=== PATIENT | male | born 1950 | race Caucasian/White ===

== ENCOUNTER 2023-07-22 11:16 | Outpatient (CLI) | payer MEDICARE, SELFPAY ==
[2023-07-22 11:36] LABS: Basophils # 1.7 K/mm3 (0-0.2); Basophils % 2.3 % (0.1-2.0); Eosinophils # 0.2 K/mm3 (0.0-0.4); Eosinophils % 0.2 % (0.1-12.0); Hematocrit 44.1 % (42.0-52.0); Hemoglobin 14.3 g/dL (14.1-18.0); Lymphocytes # 66.8 K/mm3 (0.7-4.5); Lymphocytes % 90.2 % (10-50); Mean Corpuscular HGB Conc 32.4 g/dL (31.8-35.4); Mean Corpuscular Hemoglobin 33.3 pg (27.0-31.2); Mean Corpuscular Volume 102.8 fl (80-94); Mean Platelet Volume 8.2 fl (7.4-10.4); Monocytes # 0.5 K/mm3 (0.1-1.0); Monocytes % 0.6 % (1.7-9.3); Neutrophils # 4.9 K/mm3 (1.8-7.8); Platelet Count 211 K/mm3 (142-424); Red Blood Count 4.29 M/mm3 (4.60-6.20); Red Cell Distribution Width 13.8 % (11.5-17.5)
[2023-07-22 11:53] LABS: Neutrophils % 6.7 % (37.0-80.0)
[2023-07-22 11:54] LABS: White Blood Count 74.1 K/mm3 (4.8-10.8)
[2023-07-22 11:55] LABS: MANUAL DIFFERENTIAL MANUAL DIFFERENTIAL (MANUAL DIFF)
[2023-07-22 12:13] LABS: Chloride 107 mmol/L (98-107); Potassium 4.2 mmoL/L (3.5-5.1); Sodium 142 mmol/L (136-145)
[2023-07-22 12:16] LABS: Alanine Aminotransferase 25 U/L (12-78); Albumin Level 4.4 g/dl (3.5-5.0); Albumin/Globulin Ratio 2.6 (1.1-1.8); Alkaline Phosphatase 75 U/L (38-126); Anion Gap 10.2 mEq/L (5-15); Aspartate Amino Transferase 38 U/L (17-59); Bilirubin,Total 0.4 mg/dl (0.2-1.3); Blood Urea Nitrogen 18 mg/dl (9-20); Calcium 9.1 mg/dl (8.4-10.2); Carbon Dioxide 29 mmol/L (22.0-30.0); Estimated Glomerular Filt Rate 82 ml/min (>60); GFR (African American) 100 ML/MIN (>60); Globulin 1.7 g/dL (1.3-3.2); Glucose 99 mg/dl (74-100); Total Protein,Serum 6.1 g/dl (6.3-8.2)
[2023-07-22 12:19] LABS: Lactate Dehydrogenase 249 U/L (313-618)
[2023-07-22 12:44] LABS: Eosinophils % 1 % (0-3); Lymphocytes % 2 % (10-50); Monocytes % 1 % (2-9); Neutrophils % 12 % (42-76); Total Cells Counted 100
[2023-07-22 12:45] LABS: Platelet Estimate Normal
[2023-07-22 12:46] LABS: Anisocytosis 1+
[2023-07-22 12:47] LABS: Macrocytosis 1+
== END 2023-07-22 23:59 ==
PROVIDERS: PCP Family Medicine; Visit Provider Internal Medicine Medical Oncology
DX: C91.10 Chronic lymphocytic leukemia of B-cell type not having achieved remission (principal); Z79.899 Other long term (current) drug therapy
CPT/HCPCS: 36415; 80053; 83615; 85007; 85025

== ENCOUNTER 2023-10-20 10:29 | Outpatient (CLI) | payer MEDICARE, SELFPAY ==
[2023-10-20 11:14] LABS: Basophils # 2.1 K/mm3 (0-0.2); Basophils % 2.6 % (0.1-2.0); Eosinophils # 0.2 K/mm3 (0.0-0.4); Eosinophils % 0.3 % (0.1-12.0); Hematocrit 40.5 % (42.0-52.0); Hemoglobin 13.2 g/dL (14.1-18.0); Lymphocytes # 72.1 K/mm3 (0.7-4.5); Lymphocytes % 91.9 % (10-50); Mean Corpuscular HGB Conc 32.7 g/dL (31.8-35.4); Mean Corpuscular Hemoglobin 33.3 pg (27.0-31.2); Mean Corpuscular Volume 101.7 fl (80-94); Mean Platelet Volume 8.7 fl (7.4-10.4); Monocytes # 0.5 K/mm3 (0.1-1.0); Monocytes % 0.6 % (1.7-9.3); Neutrophils # 3.5 K/mm3 (1.8-7.8); Platelet Count 219 K/mm3 (142-424); Red Blood Count 3.98 M/mm3 (4.60-6.20); Red Cell Distribution Width 13.8 % (11.5-17.5)
[2023-10-20 11:16] LABS: Neutrophils % 4.5 % (37.0-80.0)
[2023-10-20 11:17] LABS: White Blood Count 78.5 K/mm3 (4.8-10.8)
[2023-10-20 11:18] LABS: MANUAL DIFFERENTIAL MANUAL DIFFERENTIAL (MANUAL DIFF)
[2023-10-20 11:20] LABS: Alanine Aminotransferase 26 U/L (12-78); Albumin Level 4.4 g/dl (3.5-5.0); Albumin/Globulin Ratio 2.6 (1.1-1.8); Alkaline Phosphatase 85 U/L (38-126); Anion Gap 12.5 mEq/L (5-15); Aspartate Amino Transferase 36 U/L (17-59); Bilirubin,Total 0.4 mg/dl (0.2-1.3); Blood Urea Nitrogen 23 mg/dl (9-20); Calcium 9.4 mg/dl (8.4-10.2); Carbon Dioxide 29 mmol/L (22.0-30.0); Chloride 103 mmol/L (98-107); Estimated Glomerular Filt Rate 65 ml/min (>60); GFR (African American) 79 ML/MIN (>60); Globulin 1.7 g/dL (1.3-3.2); Glucose 95 mg/dl (74-100); Lactate Dehydrogenase 268 U/L (313-618); Potassium 4.5 mmoL/L (3.5-5.1); Sodium 140 mmol/L (136-145); Total Protein,Serum 6.1 g/dl (6.3-8.2)
[2023-10-20 13:18] LABS: Anisocytosis 1+; Lymphocytes % 17 % (10-50); Macrocytosis 1+; Monocytes % 1 % (2-9); Myelocytes % 1 (0-1); Neutrophils % 9 % (42-76); Platelet Estimate Normal; Total Cells Counted 100
== END 2023-10-20 23:59 | disposition home or self-care (01) ==
LOC: LAB 10:33
PROVIDERS: PCP Family Medicine; Visit Provider Internal Medicine Medical Oncology
DX: C91.10 Chronic lymphocytic leukemia of B-cell type not having achieved remission (principal)
CPT/HCPCS: 36415; 80053; 83615; 85007; 85025; 85027

== ENCOUNTER 2024-01-16 10:27 | Outpatient (CLI) | payer MEDICARE, SELFPAY ==
[2024-01-16 10:51] LABS: Basophils # 2.1 K/mm3 (0-0.2); Basophils % 1.9 % (0.1-2.0); Eosinophils # 0.2 K/mm3 (0.0-0.4); Eosinophils % 0.2 % (0.1-12.0); Hematocrit 41.6 % (42.0-52.0); Lymphocytes # 103.3 K/mm3 (0.7-4.5); Lymphocytes % 94.8 % (10-50); Mean Corpuscular HGB Conc 31.2 g/dL (31.8-35.4); Mean Corpuscular Hemoglobin 32.7 pg (27.0-31.2); Mean Corpuscular Volume 104.8 fl (80-94); Mean Platelet Volume 8.1 fl (7.4-10.4); Monocytes # 0.6 K/mm3 (0.1-1.0); Monocytes % 0.5 % (1.7-9.3); Platelet Count 229 K/mm3 (142-424); Red Blood Count 3.97 M/mm3 (4.60-6.20); Red Cell Distribution Width 14.7 % (11.5-17.5)
[2024-01-16 11:04] LABS: Neutrophils % 4.6 % (37.0-80.0)
[2024-01-16 11:05] LABS: MANUAL DIFFERENTIAL MANUAL DIFFERENTIAL (MANUAL DIFF)
[2024-01-16 11:17] LABS: Albumin Level 4.1 g/dl (3.5-5.0); Chloride 107 mmol/L (98-107); Sodium 141 mmol/L (136-145)
[2024-01-16 11:20] LABS: Alanine Aminotransferase 23 U/L (12-78); Alkaline Phosphatase 81 U/L (38-126); Aspartate Amino Transferase 31 U/L (17-59); Bilirubin,Total 0.5 mg/dl (0.2-1.3); Blood Urea Nitrogen 21 mg/dl (9-20); Carbon Dioxide 31 mmol/L (22.0-30.0); Estimated Glomerular Filt Rate 73 ml/min (>60); GFR (African American) 88 ML/MIN (>60)
[2024-01-16 11:21] LABS: Albumin/Globulin Ratio 2.2 (1.1-1.8); Globulin 1.9 g/dL (1.3-3.2); Glucose 67 mg/dl (74-100)
[2024-01-16 11:27] LABS: Lymphocytes % 96 % (10-50); Macrocytosis 1+; Monocytes % 1 % (2-9); Neutrophils % 3 % (42-76); Platelet Estimate Normal; RBC Morphology Normal; Total Cells Counted 100
[2024-01-16 22:17] LABS: Lactate Dehydrogenase 242 U/L (313-618)
== END 2024-01-16 23:59 | disposition home or self-care (01) ==
LOC: LAB 10:30
PROVIDERS: PCP Family Medicine; Visit Provider Internal Medicine Medical Oncology
DX: C91.12 Chronic lymphocytic leukemia of B-cell type in relapse (principal)
CPT/HCPCS: 36415; 80053; 83615; 85007; 85025; 85027

== ENCOUNTER 2024-04-17 09:28 | Outpatient (CLI) | payer MEDICARE, SELFPAY ==
[2024-04-17 10:05] LABS: Basophils % 5.8 % (0.1-2.0); Eosinophils # 0.2 K/mm3 (0.0-0.4); Eosinophils % 0.1 % (0.1-12.0); Hematocrit 42.1 % (42.0-52.0); Hemoglobin 13.5 g/dL (14.1-18.0); Lymphocytes # 132.5 K/mm3 (0.7-4.5); Lymphocytes % 96.4 % (10-50); Mean Corpuscular HGB Conc 32.2 g/dL (31.8-35.4); Mean Corpuscular Hemoglobin 33.1 pg (27.0-31.2); Mean Corpuscular Volume 102.7 fl (80-94); Mean Platelet Volume 7.9 fl (7.4-10.4); Monocytes # 0.8 K/mm3 (0.1-1.0); Monocytes % 0.6 % (1.7-9.3); Platelet Count 206 K/mm3 (142-424); Red Cell Distribution Width 14.6 % (11.5-17.5)
[2024-04-17 10:11] LABS: Neutrophils % 2.9 % (37.0-80.0)
[2024-04-17 10:12] LABS: White Blood Count 137.4 K/mm3 (4.8-10.8)
[2024-04-17 10:14] LABS: MANUAL DIFFERENTIAL MANUAL DIFFERENTIAL (MANUAL DIFF)
[2024-04-17 11:01] LABS: Lymphocytes % 96 % (10-50); Monocytes % 1 % (2-9); Neutrophils % 3 % (42-76); Platelet Estimate Normal; RBC Morphology Normal; Total Cells Counted 100
[2024-04-17 11:16] LABS: Alanine Aminotransferase 24 U/L (12-78); Albumin Level 4.3 g/dl (3.5-5.0); Albumin/Globulin Ratio 2.7 (1.1-1.8); Alkaline Phosphatase 83 U/L (38-126); Anion Gap 10.6 mEq/L (5-15); Aspartate Amino Transferase 36 U/L (17-59); Bilirubin,Total 0.3 mg/dl (0.2-1.3); Blood Urea Nitrogen 18 mg/dl (9-20); Calcium 9.1 mg/dl (8.4-10.2); Carbon Dioxide 32 mmol/L (22.0-30.0); Chloride 103 mmol/L (98-107); Estimated Glomerular Filt Rate 59 ml/min (>60); GFR (African American) 71 ML/MIN (>60); Globulin 1.6 g/dL (1.3-3.2); Glucose 88 mg/dl (74-100); Lactate Dehydrogenase 240 U/L (313-618); Potassium 4.6 mmoL/L (3.5-5.1); Sodium 141 mmol/L (136-145); Total Protein,Serum 5.9 g/dl (6.3-8.2)
== END 2024-04-17 23:59 | disposition home or self-care (01) ==
LOC: LAB 09:29
PROVIDERS: PCP Family Medicine; Visit Provider Internal Medicine Medical Oncology
DX: C91.10 Chronic lymphocytic leukemia of B-cell type not having achieved remission (principal)
CPT/HCPCS: 36415; 80053; 83615; 85007; 85025; 85027

== ENCOUNTER 2024-05-22 13:40 | Outpatient (CLI) | payer MEDICARE, SELFPAY ==
--- NOTE | 2024-05-22 13:41 | CT_ITS ---
FINAL REPORT CLINICAL HISTORY: chronic sinus issues COMPARISON: None FINDINGS: There is abnormal mucoperiosteal thickening of the ethmoid air cells. There is complete opacification of the right maxillary sinus. Soft tissue is seen bridging the right ostiomeatal unit. There is mild mucoperiosteal thickening circumferentially on the left. Soft tissue is noted bridging the left ostiomeatal unit. The mastoids are well aerated. There is no fracture. There are no air-fluid levels. IMPRESSION: Obstruction of the ostiomeatal units with complete opacification of the right and circumferential mucoperiosteal thickening on the left.. Reviewed, Interpreted and Dictated by Mario Bertrand MD Transcribed by Cindy Luna Authenticated and [facility]
== END 2024-05-22 23:59 | disposition home or self-care (01) ==
PROVIDERS: PCP Family Medicine; Visit Provider Nurse Practitioner
DX: J32.9 Chronic sinusitis, unspecified (principal)
CPT/HCPCS: 70486

== ENCOUNTER 2024-07-16 10:34 | Outpatient (CLI) | payer MEDICARE, SELFPAY ==
[2024-07-16 10:55] LABS: Basophils # 0.2 K/mm3 (0-0.2); Basophils % 0.1 % (0.1-2.0); Eosinophils # 0.1 K/mm3 (0.0-0.4); Eosinophils % 0.1 % (0.1-12.0); Hematocrit 38.8 % (42.0-52.0); Lymphocytes # 143.8 K/mm3 (0.7-4.5); Lymphocytes % 89.1 % (10-50); Mean Corpuscular HGB Conc 30.9 g/dL (31.8-35.4); Mean Corpuscular Hemoglobin 31.7 pg (27.0-31.2); Mean Corpuscular Volume 102.6 fl (80-94); Mean Platelet Volume 9.7 fl (7.4-10.4); Monocytes # 13.7 K/mm3 (0.1-1.0); Monocytes % 8.5 % (1.7-9.3); Neutrophils # 3.2 K/mm3 (1.8-7.8); Platelet Count 165 K/mm3 (142-424); Red Blood Count 3.78 M/mm3 (4.60-6.20); Red Cell Distribution Width 14.2 % (11.5-17.5)
[2024-07-16 11:14] LABS: White Blood Count 161.4 K/mm3 (4.8-10.8)
[2024-07-16 11:15] LABS: Albumin Level 4.4 g/dl (3.5-5.0); Chloride 104 mmol/L (98-107); MANUAL DIFFERENTIAL MANUAL DIFFERENTIAL (MANUAL DIFF); Potassium 4.5 mmoL/L (3.5-5.1); Sodium 140 mmol/L (136-145)
[2024-07-16 11:18] LABS: Alanine Aminotransferase 23 U/L (12-78); Albumin/Globulin Ratio 2.8 (1.1-1.8); Alkaline Phosphatase 104 U/L (38-126); Anion Gap 9.5 mEq/L (5-15); Aspartate Amino Transferase 34 U/L (17-59); Bilirubin,Total 0.5 mg/dl (0.2-1.3); Blood Urea Nitrogen 13 mg/dl (9-20); Carbon Dioxide 31 mmol/L (22.0-30.0); Estimated Glomerular Filt Rate 73 ml/min (>60); GFR (African American) 88 ML/MIN (>60); Globulin 1.6 g/dL (1.3-3.2)
[2024-07-16 11:19] LABS: Calcium 9.1 mg/dl (8.4-10.2); Glucose 87 mg/dl (74-100)
[2024-07-16 11:30] LABS: Lactate Dehydrogenase 315 U/L (313-618)
[2024-07-16 12:11] LABS: Eosinophils % 1 % (0-3); Lymphocytes % 95 % (10-50); Monocytes % 1 % (2-9); Neutrophils % 3 % (42-76); Platelet Estimate Normal; Total Cells Counted 100
== END 2024-07-16 23:59 | disposition home or self-care (01) ==
LOC: LAB 10:34
PROVIDERS: PCP Family Medicine; Visit Provider Internal Medicine Medical Oncology
DX: C91.12 Chronic lymphocytic leukemia of B-cell type in relapse (principal)
CPT/HCPCS: 36415; 80053; 83615; 85007; 85025; 85027

== ENCOUNTER 2024-07-19 10:48 | Outpatient (CLI) | payer MEDICARE, SELFPAY ==
--- NOTE | 2024-07-19 10:53 | CT_ITS ---
FINAL REPORT TECHNIQUE: Axial CT without IV contrast administration. Coronal and sagittal images were obtained and reviewed. This study was performed with techniques to keep radiation doses as low as reasonably achievable, (ALARA). Individualized dose reduction techniques using automated exposure control or adjustment of mA and/or kV according to the patient''s size were employed. CLINICAL HISTORY: CLL COMPARISON: None FINDINGS: There is patchy airspace disease in the right lower lobe favored to represent pneumonia. Leukemic involvement of the lungs is considered much less likely. There is a small right pleural effusion. Precarinal adenopathy measures 18 mm. Right paratracheal adenopathy measures 17 mm. There is no hilar adenopathy. Mild bilateral axillary adenopathy is noted based on excessive number of abnormal lymph nodes. IMPRESSION: Mild intrathoracic adenopathy and axillary adenopathy. Right lower lobe parenchymal opacities, likely pneumonia although leukemic involvement of the lungs is not excluded. Reviewed, Interpreted and Dictated by Rob Moon MD Transcribed by Cindy Luna Authenticated and [facility]
--- NOTE | 2024-07-19 10:53 | CT_ITS ---
FINAL REPORT TECHNIQUE: Noncontrast CT exam of the abdomen and pelvis. Coronal and sagittal images were obtained and reviewed. This study was performed with techniques to keep radiation doses as low as reasonably achievable (ALARA). Individualized dose reduction techniques using automated exposure control or adjustment of mA and/or kV according to the patient''s size were employed. CLINICAL HISTORY: CLL COMPARISON: None FINDINGS: Abdomen: There is moderate splenomegaly with the spleen measuring up to 16.1 cm. Remaining solid organs are normal. The gallbladder is normal. There is advanced adenopathy primarily involving the mesentery, although enlarged lymph nodes are seen of the celiac axis, retroperitoneum, and tristen hepatis. Measurements of mesenteric node on image 48 of series 2 is 40 x 25 mm. Measurement of a left periaortic lymph node at the level of the renal hilum on image 52 is 34 x 18 mm. Pelvis: Mesenteric adenopathy extends into the pelvic portion. Retroperitoneal adenopathy terminates of the aortic bifurcation. A left distal aortic lymph node on image 58 measures 37 x 22 mm. Pelvic bowel loops are unremarkable. There is no inguinal adenopathy. IMPRESSION: Extensive abdominal adenopathy with sampling measurements as above. Adenopathy most pronounced within the mesentery. Moderate splenomegaly. Reviewed, Interpreted and Dictated by Rob Moon MD Transcribed by Cindy Luna Authenticated and [facility]
== END 2024-07-19 23:59 | disposition home or self-care (01) ==
LOC: RAD 10:49
PROVIDERS: PCP Family Medicine; Visit Provider Internal Medicine Medical Oncology
DX: C91.12 Chronic lymphocytic leukemia of B-cell type in relapse (principal)
CPT/HCPCS: 71250; 74176

== ENCOUNTER 2024-10-22 10:24 | Outpatient (CLI) | payer MEDICARE, SELFPAY ==
--- OUTSIDE RECORDS SUMMARY | 2024-10-22 10:48 | XMS_ITS | Encounter Summary ---
Author Organization [facility] [employer] Address [address] [place] [address] Care Team Providers Care Staple Laster Name Role Phone Eladio Lomas MD Unavailable Breanna Crow PA-C Unavailable [phone] Encounter Details Date Type Department Care Team (Late st Contact Info) Description 10/15/2021 Transcribed Document [facility] [place] Family Medicine [facility] [place] [address] ProviderJailyn MD [address] [place] [address] Social History Tobacco Use Types Packs/Day Years Used Date Smoking Tobacco: Never Assessed Sex and Gender Information Value Date Recorded Sex Assigned at Male 10/27/2021 8:22 PM CDT Legal Sex Male 8:22 PM CDT Gender Identity Male 10/27/2021 8:22 PM CDT Sexual Orientation Not on file documented as of this encounter Miscellaneous Notes * Cerner Conversion Note - Historical ProviderMD - 10/15/2021 3:15 PM CDT Evaluation, Physical Therapy Entered On: 10/17/2021 10:35 EDT Performed On: 10/17/2021 10:13 EDT by SOFÍA CROFT PHYSICAL THERAPIST NON-EXEMPT General Information, PT Visit Type, PT : Initial evaluation Patient Orders : Order Date Order Ordering 10/15/2021 05:37 PT Evaluation and Treatment Ordered By: CANDIDA GUO DO-INT 10/15/2021 15:15 PT Evaluation and Treatment Ordered By: GARCIA WORKMAN MD-ORT Active Diagnoses : 10/15/2021 12:00 Chronic lymphocytic leukemia of B-cell type not having achieved remission 10/15/2021 12:00 Essential (primary) hypertension 10/15/2021 12:00 Neurologic problem 10/15/2021 12:00 Other specified abnormal findings of blood chemistry 10/15/2021 12:00 Other symptoms and signs involving the musculoskeletal system 10/15/2021 12:00 Varicella without complication 10/14/2021 12:00 Paresthesia Therapy Diagnosis, PT : Impaired mobility Admission Date : 10/15/2021 03:06 Co-treated by, PT : Occupational Therapist Personal Devices : Personal Devices No Devices Recorded Assistive Devices : Assistive Devices No Devices Recorded Precautions in Place : Fall prevention measures General Information Comment, PT : Pt is a 71 y/o male who [place] [facility] [place] with RLE weakness and paresthesia. Pt's PMH includes CLL (in remission), recent chickenpox (onset approx 3 weeks ago) and falls. Pt is currently being followed by Ortho and Neurology. Pt with possible left-sided L5 lumbar radiculopathy. SOFÍA CROFT PHYSICAL THERAPIST NON-EXEMPT - 10/17/2021 10:13 EDT General Status Patient Received Status : Other: Standing in BR in RW with spouse Treatment Start Time : 10/17/2021 9:03 EDT Patient Left Status : Sitting edge of bed, RN/PCT informed, Other: Spouse present Treatment End Time : 10/17/2021 9:56 EDT Treatment Time : 53 Minute(s) SOFÍA CROFT PHYSICAL THERAPIST NON-EXEMPT - 10/17/2021 10:13 EDT History and Environment Living Situation, Therapy : Home Patient Lives With : Spouse Persons Assisting Patient at Home : Spouse Persons Providing Information : Patient, Spouse Home Equipment Therapy, PT : Cane Cane : Cane, single point Home Setup : Two story Bedroom Location : Upstairs Bathroom #1 Location : Main level Bathroom #2 Location : Upstairs Stairs : Yes Stair Location(s) : Inside, Outside Inside Stairs, Number of Steps : 12 Stairs Inside Comment : 1 fllight of steps with HR on (R) side going up Outside Stairs, Number of Steps : 2 Outside Stairs Comment : 2 steps with HR on (R) side going up SOFÍA CROFT PHYSICAL THERAPIST NON-EXEMPT - 10/17/2021 10:13 EDT Prior Level of Function PT GRID Prior LOF Ambulation, Household : Independent Prior LOF Ambulation, Community : Independent Prior LOF Bed Mobility : Independent Prior LOF Toileting : Independent Prior LOF Transfer : Independent SOFÍA CROFT, PHYSICAL THERAPIST NON-EXEMPT - 10/17/2021 10:13 EDT Prior LOF Assist with ADL Comment : At baseline, pt is very active and ambulates 4-5 miles per day. He enjoys cutting the grass. History and Environment Comment, PT : Pt lives with spouse who will be able to assist as needed upon return home. Pt has a built in shower seat in 2nd floor bathroom. Pt with multiple falls at home since onset of RLE weakness. SOFÍA CROFT PHYSICAL THERAPIST NON-EXEMPT - 10/17/2021 10:13 EDT Upper Extremity Right UE Active ROM : WFL Right UE Strength : WFL Left UE Active ROM : WFL Left UE Strength : WFL SOFÍA CROFT PHYSICAL THERAPIST NON-EXEMPT - 10/17/2021 10:13 EDT Lower Extremity RLE Active ROM : WFL Right LE Strength : Impaired LLE Active ROM : WFL Left LE Strength : WFL SOFÍA CROFT PHYSICAL THERAPIST NON-EXEMPT - 10/17/2021 10:13 EDT Right Lower Extremity MMT Hip Flexion (0-125) : 5/normal Hip Abduction (0-45) : 5/normal Hip Adduction (0-20) : 5/normal Knee Flexion (0-140) : 5/normal Knee Extension (0-0) : 5/normal Ankle Dorsiflexion (0-20) : 3/fair Ankle Plantarflexion (0-45) : 5/normal Other Location : 1/trace (Comment: Great toe extension [SOFÍA CROFT PHYSICAL THERAPIST NON-EXEMPT - 10/17/2021 10:13 EDT] ) SOFÍA CROFT PHYSICAL THERAPIST NON-EXEMPT - 10/17/2021 10:13 EDT Left Lower Extremity MMT Hip Flexion (0-125) : 5/normal Hip Abduction (0-45) : 5/normal Hip Adduction (0-20) : 5/normal Knee Flexion (0-140) : 5/normal Knee Extension (0-0) : 5/normal Ankle Dorsiflexion (0-20) : 5/normal Ankle Plantarflexion (0-45) : 5/normal Other Location : 5/normal (Comment: Great toe extension [SOFÍA CROFT, PHYSICAL THERAPIST NON-EXEMPT - 10/17/2021 10:13 EDT] ) SOFÍA CROFT PHYSICAL THERAPIST NON-EXEMPT - 10/17/2021 10:13 EDT Lower Extremity Comment : R Achilles and patellar reflexes 1+ L Achilles and patellar reflexes 2+ Babinski (-) bilat Hoffmans's (-) bilat Ankle Clonus (-) bilat SOFÍA CROFT, PHYSICAL THERAPIST NON-EXEMPT - 10/17/2021 10:13 EDT Functional Mobility Mobility Grid Sit to Stand : Rehab Minimal assistance (Comment: CGA [SOFÍA CROFT PHYSICAL THERAPIST NON-EXEMPT - 10/17/2021 10:13 EDT] ) Stand to Sit : Rehab Minimal assistance (Comment: CGA [SOFÍA CROFT, PHYSICAL THERAPIST NON-EXEMPT - 10/17/2021 10:13 EDT] ) SOFÍA CROFT, PHYSICAL THERAPIST NON-EXEMPT - 10/17/2021 10:13 EDT Sit to Stand Device : Belt, gait Stand to Sit Device : Belt, gait, Walker, front wheel Functional MobilityComment : Pt required CGA with max verbal cueing for safety (hand placement, foot placement and leaning forward) to complete sit>stand transfer in RW. Pt required CGA with max verbal cueing for safety (placement of RW, reach back and slow eccentric descent) to complete stand>sit transfer. SOFÍA CROFT PHYSICAL THERAPIST NON-EXEMPT - 10/17/2021 10:13 EDT Gait Training/Assessment, PT Gait Assistance Level : Assist, minimal Walking Distance : 125' x 2 Ambulatory Devices : Gait belt, Walker, front wheel Gait Deviations : Yes Gait Training Comment : Toe drag present (RLE) during RLE swing phase of gait pattern. Pt required verbal cueing for increased hip flexion to accommodate lack of ankle DF during swing phase. Pt vequired cueing for upright posture & for remaining within base of RW. Stair(s) Ascend/Descend Training : Yes Number of Stairs : 5 Stair(s) Assist Devices : Rails, one Stair Assist : Assist, minimal Stair Ascending Technique Comment : Verbal cueing for non-reciprocal gait pattern leading with LLE with BUE support on hand rail. Stair Descending Technique Comment : Verbal cueing for non-reciprocal gait pattern leading with RLE with BUE support on hand rail. SOFÍA CROFT PHYSICAL THERAPIST NON-EXEMPT - 10/17/2021 10:13 EDT Neurological/Sensory Overall Sensory Response : Impaired Overall Sensory Response Comment : Impaired sensation to light touch (RLE vs LLE) in L5 dermatomal distribution. SOFAÍ CROFT PHYSICAL THERAPIST NON-EXEMPT - 10/17/2021 10:13 EDT Cognition Assessment, PT Orientation : Oriented x 4 Attention Assessment : Present SOFÍA CROFT PHYSICAL THERAPIST NON-EXEMPT - 10/17/2021 10:13 EDT Edu Topics Physical Therapy Education Grid Caregiver Training : Verbalizes understanding (Comment: Use of gait belt [SOFÍA CROFT PHYSICAL THERAPIST NON-EXEMPT - 10/17/2021 10:13 EDT] ) Gait Training : Verbalizes understanding, Returns demonstration, Needs further teaching, Needs reinforcement Role of Physical Therapy : Verbalizes understanding Safety : Verbalizes understanding, Returns demonstration, Needs further teaching, Needs reinforcement Stair Training : Verbalizes understanding, Returns demonstration, Needs further teaching, Needs reinforcement Transfer Training : Verbalizes understanding, Returns demonstration, Needs further teaching, Needs reinforcement Use of Assistive Device : Verbalizes understanding, Returns demonstration, Needs further teaching, Needs reinforcement SOFÍA CROFT PHYSICAL THERAPIST NON-EXEMPT - 10/17/2021 10:13 EDT Teaching/Learning Assessment Barriers To Learning : None evident Individuals Taught : Patient, Spouse Readiness to Learn : Cooperative Learning Style Preferences Patient : Verbal explanation Learning Style Preferences Family : Verbal explanation SOFÍA CROFT PHYSICAL THERAPIST NON-EXEMPT - 10/17/2021 10:13 EDT Indication Assesessment, PT Physical Therapy Indicated : Yes PT Problem List : Impaired, activities daily living, Impaired, coordination/proprioception, Impaired, gait, Impaired, stair mobility, Impaired, standing balance, Impaired, strength, Impaired, transfers Potential Barriers To Therapy : None evident Rehabilitation Potential : Good SOFÍA CROFT PHYSICAL THERAPIST NON-EXEMPT - 10/17/2021 10:13 EDT Plan of Care, PT PT Tx Plan/Goals Established w Patient : Yes PT Frequency Rehab : Five days per week PT Duration Rehab : Fourteen days PT Treatments Planned : Balance training, Gait training, Neuromuscular reeducation, Safety education, Stair training, Transfer training SOFÍA CROFT PHYSICAL THERAPIST NON-EXEMPT - 10/17/2021 10:13 EDT Cycle Specialist Goals Transfer LTG Grid Goal #1 Destination : Other: sit<>stand Cues : Minimum verbal cues Assist : Supervision or set-up Equipment : Belt, gait, Walker, front wheel, Other: AFO (R) Date to Meet : 10/31/2021 EDT Goal Status : Intial Goal SOFÍA CROFT PHYSICAL THERAPIST NON-EXEMPT - 10/17/2021 10:13 EDT Ambulation LTG Grid Goal #1 Device : Walker, front wheel Distance : 150' Assist : Assist, minimal (Comment: CGA [SOFÍA CROFT, PHYSICAL THERAPIST NON-EXEMPT - 10/17/2021 10:13 EDT] ) Date to Meet : 10/31/2021 EDT Goal Status : Intial Goal Comment : AFO (R) SOFÍA CROFT, PHYSICAL THERAPIST NON-EXEMPT - 10/17/2021 10:13 EDT Stairs LTG Grid Goal #1 Number of Steps : 2 Handrail(s) : No handrails Assist : Assist, minimal (Comment: CGA [SOFÍA CROFT, PHYSICAL THERAPIST NON-EXEMPT - 10/17/2021 10:13 EDT] ) Date to Meet : 10/31/2021 EDT Goal Status : Intial Goal Comment : AFO (R) SOFÍA CROFT, PHYSICAL THERAPIST NON-EXEMPT - 10/17/2021 10:13 EDT Treatment Note Subjective Comment : Pt and RN agreeable to tx. Patient's Response to Treatment : Pt in good spirits and tolerated PT evalulation well. Additional Objective Information : Pt ambulated approximately 125' using RW without use of AFO brace with Maryann. Pt was issued an AFO brace and instructed in safe and appropriate use of AFO brace. Pt required assistance to don the AFO brace. He ambulated an additional 125' using RW while wearing AFO brace with Maryann. Pt demonstrated improved stability when ambulating with AFO brace. PT discussed the following recommendations with pt and spouse: - Use of wheelchair for community mobility to improve safety and reduce falls. - Use RW and AFO brace with spouse support for safety for ambulation short distances within home. - Pt avoiding 2nd floor of home. - Pt sleeping on couch and/or recliner on 1st floor of home to avoid flight of steps to 2nd floor. Assessment : Pt will likely benefit from additional skilled PT while hospitalized to address deficits, to progress toward goals and to improve safety/independence with mobility. RLE weakness and paresthesias are consistent with a R-sided L5 lumbar radiculopathy. SOFÍA CROFT PHYSICAL THERAPIST NON-EXEMPT - 10/17/2021 10:13 EDT Pain Assessment Pain Comment : 06/11 low back pain SOFÍA CROFT PHYSICAL THERAPIST NON-EXEMPT - 10/17/2021 10:13 EDT Image 1 - Images currently included in the form version of this document have not been included in the text rendition version of the form. Anticipated Discharge Needs, OT/PT Anticipated Discharge to : Home, with family care, Other: Outpatient physical therapy Anticipated Home Equipment : Walker, Wheelchair Recommend Continued Therapy at Discharge : Yes Walker : Walker, front wheel Wheelchair : Wheelchair, standard SOFÍA CROFT PHYSICAL THERAPIST NON-EXEMPT - 10/17/2021 10:[address] [facility] PT Charges PT Ther Activities Ea 15 Min : 1 Gait Training Each 15 Min : 2 PT Eval Low Complexity : 1 SOFÍA CROFT PHYSICAL THERAPIST NON-EXEMPT - 10/17/2021 10:13 EDT documented in this encounter Plan of Treatment Not on file documented as of this encounter Visit Diagnoses Not on filedocumented in this encounter Care Teams Staple Laster Relationship Specialty Start Date End Date Eladio Lomas MD [address] [place] [address] Medical Oncologist Hematology and Oncology 07/08/22 Breanna Crow PA-C [address] [facility] [address] [place] [address] Physician Pot Tender Oncology 07/08/22 documented as of this encounter
--- OUTSIDE RECORDS SUMMARY | 2024-10-22 10:48 | XMS_ITS | Encounter Summary ---
Author Organization [facility] [employer] Address [address] [facility] [place] [address] Care Team Providers Care Methods Study Analyst Name Role Phone Eladio Lomas MD Unavailable Breanna Crow PA-C Unavailable [phone] Encounter Details Date Type Department Care Team (Late st Contact Info) Description 10/15/2021 Transcribed Document [facility] [place] [facility] [place] [address] ProviderJailyn MD [address] [place] [address] Social History Tobacco Use Types Packs/Day Years Used Date Smoking Tobacco: Never Assessed Sex and Gender Information Value Date Recorded Sex Assigned at Male 10/27/2021 8:22 PM CDT Legal Sex Male 8:22 PM CDT Gender Identity Male 10/27/2021 8:22 PM CDT Sexual Orientation Not on file documented as of this encounter Miscellaneous Notes * Cerner Conversion Note - Jailyn Lira MD - 10/15/2021 4:49 AM CDT ED Discharge Entered On: 10/15/2021 4:49 EDT Performed On: 10/15/2021 4:49 EDT by FLORA SOUZA RN Discharge Process Patient Disposition : Admit/Observe Personal Belongings With Patient : Yes Patient Education Completed : Yes Teaching Evaluation : Verbalizes understanding FLORA SOUZA RN - 10/15/2021 4:49 EDT Admission, ED Nurse Report Accepted By : SHARYN Still Nurse Report Acceptance Time : 10/15/2021 4:30 EDT `Nurse Report (Hand Off) : Called Accompanied By, Discharge : Care provider Mode Of Departure : Stretcher SOUZA, FLORA, SHARYN - 10/15/2021 4:49 EDT documented in this encounter Plan of Treatment Not on file documented as of this encounter Visit Diagnoses Not on filedocumented in this encounter Care Teams Methods Study Analyst Relationship Specialty Start Date End Date Eladio Lomas MD [address] [facility] [place] [address] Medical Oncologist Hematology and Oncology 07/08/22 Breanna Crow, PACecilia [address] [address] Physician Spindle Carver Oncology 07/08/22 documented as of this encounter
--- OUTSIDE RECORDS SUMMARY | 2024-10-22 10:48 | XMS_ITS | Encounter Summary ---
Author Organization [employer] Address [address] [place] [address] Care Team Providers Care Healthcare Economics Manager Name Role Phone Eladio Lomas MD Unavailable Breanna Crow PA-C Unavailable [phone] Encounter Details Date Type Department Care Team (Late st Contact Info) Description 10/15/2021 Transcribed Document [facility] [place] [facility] [place] [address] ProviderJailyn MD [address] [place], [place] [id number] Social History Tobacco Use Types Packs/Day Years Used Date Smoking Tobacco: Never Assessed Sex and Gender Information Value Date Recorded Sex Assigned at Male 10/27/2021 8:22 PM CDT Legal Sex Male 8:22 PM CDT Gender Identity Male 10/27/2021 8:22 PM CDT Sexual Orientation Not on file documented as of this encounter Miscellaneous Notes * Cerner Conversion Note - Jailyn Lira MD - 10/15/2021 5:37 AM CDT Consult Phone Call Documentation Entered On: 10/15/2021 6:55 EDT Performed On: 10/15/2021 5:37 EDT by CHLOE LORENZO Phone Call for Consults Consult Phone Call/Page Attempt : First call Consult Reason : LE Weakness Physician Requesting Consult : CANDIDA GUO, DO-INT Physician Requested for Consult : ROMERO INGRAM MD-SERENE Provider Service Notified Name : Neurology Physician Covering for Consult : BIANCA HORNER APRN-NEU Date and Time Call Returned : 10/15/2021 6:34 EDT CHLOE LORENZO - 10/15/2021 6:53 EDT Electronically signed by Huy, [facility] Conversion Peripheral Edp Equipment Operator Cerner at 08/17/2022 6:19 PM CDT documented in this encounter Plan of Treatment Not on file documented as of this encounter Visit Diagnoses Not on filedocumented in this encounter Care Teams Healthcare Economics Manager Relationship Specialty Start Date End Date Eladio Lomas MD [address] [facility] [address] [place] [address] Medical Oncologist Hematology and Oncology 07/08/22 Breanna Crow, CHAVA [address] [place] [address] Physician Collections Curator Oncology 07/08/22 documented as of this encounter
--- OUTSIDE RECORDS SUMMARY | 2024-10-22 10:48 | XMS_ITS | Encounter Summary ---
Author Organization [employer] Address [address] [place] [address] Care Team Providers Care Missileman Name Role Phone Eladio Lomas MD Unavailable Breanna Crow PA-C Unavailable Encounter Details Date Type Department Care Team (Late st Contact Info) Description 10/15/2021 Transcribed Document [facility] [place] [facility] [place] [address] ProviderJailyn MD [address] [place] [address] Social History Tobacco Use Types [...] Conversion Note - Historical ProviderMD - 10/15/2021 8:35 AM CDT Attempt to Treat, OT Entered On: 10/15/2021 12:33 EDT Performed On: 10/15/2021 8:35 EDT by DAYDAY MEADOWS OTR/Mikal Attempt to Treat Unable to Treat Due To : Acuity of Illness, Patient on hold, Pending order clarification Inability to Treat Comment : Pt with DVT. Eval held today as a result. Will attempt again at later date if pt able, willing. DAYDAY MEADOWS OTR/Mikal - 10/15/2021 12:32 EDT Electronically signed by Huy [facility] Conversion Cigar Packing Examiner Cerner at 08/17/2022 6:13 PM CDT documented in this encounter Plan of Treatment Not on file documented as of this encounter Visit Diagnoses Not on filedocumented in this encounter Care Teams Missileman Relationship Specialty Start Date End Date Eladio Lomas MD [address] [facility] [place] [id number] Medical Oncologist Hematology and Oncology 07/08/22 Breanna Crow PA-C [address] [place] [address] Physician Printed Circuit Boards Router Oncology 07/08/22 documented as of this encounter
--- OUTSIDE RECORDS SUMMARY | 2024-10-22 10:48 | XMS_ITS | Encounter Summary ---
Author Organization [email or web address] Address [address] [address] Care Team Providers Care Psychologist Chief Name Role Phone Eladio Lomas MD Unavailable Breanna Crow PA-C Unavailable [phone] Encounter Details Date Type Department Care Team (Late st Contact Info) Description 10/17/2021 Transcribed Document [facility] [place] [facility] [place] [address] ProviderJailyn MD [address] [place] [address] Social History Tobacco Use Types [...] Conversion Note - Jailyn Lira MD - 10/17/2021 12:50 PM CDT Patient: CORBIN HU Age: 71 years Sex: Male : 1950 Associated Diagnoses: None Author: TRENA DONAHUE MD-INF INFECTIOUS DISEASES CONSULTATION/INITIAL HOSPITAL VISIT REF MD: Dr. Wilberto TOLEDO MD: Dr. Trena Donahue Date of Admission: 10/15/21 Date of Consultation: 10/17/21 Reason for Consultation: Right leg weakness in setting of recent varicella zoster infection CC: Right leg pain HPI: 71 yo male with h/o CLL/not currently treated and MVP who we were asked to see for Right leg pain/Weakness after recent varicella infection. About 2 to 3 weeks ago, he developed a rash on his body. The vesicles were biopsies and he was told it was chicken pox By Dr. Garcia. He told other providers that he was sure he had chickenpox when he was a child. He was treated with steroids and Valtrex. The diffuse vesicles dried and healed. Then about a week later, he developed pain in his Right lumbar region and right leg which he noticed after crawling under his house to store winter items. He thought maybe he had just hurt his leg, but does have some chronic back pain that worsening during the viral infection. He then developed weakness in his left leg. The weakness progressed to the point that he began to fall prompting him to come to [facility] on 10[place]. He was admitted for concerns of Claudia Mobile Syndrome. A CT scan of lumbar spine showed no acute findings. He has remained afebrile. His labs were relatively unremarkable except for worsening leukocytosis and elevated D-dimer. MRI thoracic spine showed no acute findings. Lumbar MRI scan revealed multiple areas of lumbar disc disease with mild to moderate canal and foraminal stenosis. A venous Doppler duplex of BLE showed acute DVT in below the knee veins including popliteal vein. He was seen in urology consultation and thought not to have Guillain-Hoover?? syndrome but rather degenerative disc disease with secondary lower extremity weakness. He is on Eliquis and SoluMedrol. ID was asked to evaluate. Allergies: Allergies (2) Active Reaction contrast media (iodine-based) None Documented Shrimp None Documented Medications: Medications by Classification Immunology methylPREDNISolone + Sodium Chloride 0.9% intravenous soluti - 250 mg 4 mL, IV Piggyback, Inj, Daily, STAT Anticoagulant apixaban (Eliquis) - 10 mg, Oral, Tab, BID, order duration: 7 Day(s) Cardiovascular labetalol - 10 mg, IV Push, Inj, Q1H, PRN for Hypertension, Routine Respiratory albuterol-ipratropium (DuoNeb 0.5 mg-2.5 mg/3 mL inhalation - 3 mL, Nebulized Inhalation, Inh, RT_Q6H, PRN for Shortness of Breath, Routine GI ondansetron (Zofran) - 4 mg, IV Push, Inj, Q4H, PRN for Nausea, Routine famotidine (Pepcid) - 20 mg, Oral, Tab, Q12H, Routine bisacodyl (Dulcolax Laxative) - 5 mg, Oral, EC Tab, Daily, PRN for Constipation, Routine polyethylene glycol 3350 (MiraLax) - 17 Gram, Oral, Powder, Daily, PRN for Constipation, Routine Pain Meds morphine - 2 mg, IV Push, Inj, Q2H, PRN for Pain (Severe 7-10), Routine oxyCODONE (Roxicodone) - 5 mg, Oral, Tab, Q4H, PRN for Pain (Moderate 4-6), Routine acetaminophen-hydrocodone (acetaminophen-HYDROcodone 325 mg- - 1 Tab, Oral, Tab, Q4H, PRN for Pain (Mild 1-3), Routine acetaminophen (Tylenol) - 650 mg, Oral, Tab, Q4H, PRN for Pain (Mild 1-3), Routine acetaminophen (Tylenol) - 650 mg, Oral, Tab, Q4H, PRN for Fever, Routine Sedatives diphenhydrAMINE (Benadryl) - 25 mg, Oral, Tab, 1-Time, Routine Vitamins potassium chloride (potassium chloride 10 mEq oral tablet, e - 20 mEq 2 Tab, Oral, CR Tab, BID, Routine Other melatonin - 3 mg, Oral, Tab, At Bedtime, PRN for Insomnia, Routine Undefined Medications hydrALAZINE - 20 mg, IV Push, Inj, Q6H, PRN for Hypertension, Routine PMH: Mitral valve prolapse CLL PSH: R and LHC FH: Father CAD Sister with liver cancer Sister with pancreatic cancer SH: , lives in [place], [place]. Former remotes smoker, denies alcohol, or illicit drug use. ROS: General: Denies fever, chills, sweats, malaise, fatigue, weakness Skin: Denies rashes, pruritus, or lesions HEENT: Denies dizziness, syncope, eye pain, blurry vision, ear pain, tinnitus, nasal congestion, rhinorrhea, sore throat, or dysphagia Respiratory; Denies shortness of breath, cough, or hemoptysis Cardio: He has a history of mitral valve prolapse. GI: Denies abdominal pain, nausea, vomiting, : Denies flank pain, hematuria, or increased frequency, urgency, or burning of urination MS: He complains of lumbar back pain. Neuro:.He has right leg weakness with weakness of dorsiflexion. Psych: Denies anxiety or depression Endo: Denies Diabetes mellitus or thyroid problems Immuno: He is an immunocompromised host related to his CLL. Hemo: He has a history of CLL as noted above Cutaneous: He has a diffuse rash secondary to disseminated varicella-zoster infection 12 systems were reviewed and are negative except per HPI or above PE: Vitals Signs (last 24 hrs) Last Charted Minimum Maximum Temp 98 (CINDI 18 10:12) 97.8 (CINDI 18 02:15) 98 (CINDI 17 16:44) Mon HR 77 (CINDI 18 10:12) 63 (CINDI 17 22:05) 78 (CINDI 17 18:34) Resp Rate 17 (CINDI 18 10:12) 16 (CINDI 17 16:44) 18 (CINDI 17 22:05) SBP H 143 (CINDI 18 10:12) 126 (CINDI 17 16:44) H 160 (CINDI 18 06:20) DBP L 52 (CINDI 18 10:12) L 52 (CINDI 18 10:12) 80 (CINDI 17 18:34) MAP 75 (CINDI 18 10:12) 69 (CINDI 17 16:44) 91 (CINDI 18 06:20) SpO2 98 (CINDI 18 10:12) 94 (CINDI 17 22:05) 99 (CINDI 17 18:34) Exam: Constitutional: NAD, alert, WD/WN, appears stated age, nontoxic appearing HEENT: NC/AT, PERRLA, EOMI, sclera non-icteric, conjunctiva not injected, no thrush, no exudate. External ears, eyes, nose, and lip are normal Neck: Supple, no masses Respiratory: CTA bilaterally, non-labored breathing. Cardio: RRR, S1, S2, no murmurs, gallops, or rubs. No edema GI: BS+, non-tender, non-distended, no HSM : no robertson, no genital yeast dermatitis MS: normal ROM, no joint swelling. Derm: He has diffuse rash with scabbing and no erythema or vesicles. Neuro: Alert and oriented ??3. He has some mild left leg weakness with weakness in dorsiflexion. Psych: cooperative, normal affect Labs: Labs (Last four charted values) WBC H 14.1 (CINDI 18) H 11.5 (CINDI 17) H 11.3 (CINDI 16) H 11.9 (CINDI 16) HB L 13.0 (CINDI 18) 14.3 (CINDI 17) 13.7 (CINDI 16) 14.0 (CINDI 16) HCT L 40.0 (CINDI 18) 41.8 (CINDI 17) 40.8 (CINDI 16) 41.0 (CINDI 16) Plt 226 (CINDI 18) 247 (CINDI 17) 256 (CINDI 16) 238 (CINDI 16) Na 144 (CINDI 18) 140 (CINDI 17) 142 (CINDI 16) K 4.1 (CINDI 18) 4.0 (CINDI 17) 3.7 (CINDI 16) L 3.4 (CINDI 16) Cl 109 (CINDI 18) 106 (CINDI 17) 105 (CINDI 16) CO2 28 (CINDI 18) 26 (CINDI 17) 27 (CINDI 16) BUN 22 (CINDI 18) 17 (CINDI 17) 21 (CINDI 16) Cr 0.84 (CINDI 18) 0.76 (CINDI 17) 0.74 (CINDI 16) Glu R H 110 (CINDI 18) H 131 (CINDI 17) 100 (CINDI 16) Ca 9.0 (CINDI 18) 8.7 (CINDI 17) L 8.4 (CINDI 16) PT 10.8 (CINDI 17) 10.9 (CINDI 16) INR 1.0 (CINDI 17) 1.0 (CINDI 16) PTT 27.1 (CINDI 18) 29.3 (CINDI 16) AST 27 (CINDI 17) 26 (CINDI 16) ALT 33 (CINDI 17) 38 (CINDI 16) ALK P 87 (CINDI 17) 84 (CINDI 16) T Bili 0.6 (CINDI 17) 0.5 (CINDI 16) PTN L 6.0 (CINDI 17) 6.4 (CINDI 16) ALB 3.6 (CINDI 17) 3.6 (CINDI 16) Creatinine Clearance (Current Encounter/Past 24 Hours) Creatinine Level 0.84 mg/dL 10/17/2021 03:30 Bun/Creatinine 26.2 HI 10/17/2021 03:30 Estimated Creatinine Clearance 66.12 mL/Min 10/17/2021 03:30 Micro: None Rad: Radiology Results (Last 48 hours) [id number] -- 10/15/2021 03:06 MRI Spine Thoracic WO W (10/16/2021 13:02) Result: MRI THORACIC SPINE WITH AND WITHOUT CONTRASTHISTORY: Right leg weakness. Transverse myelitis.TECHNIQUE: Multiplanar MR with and without contrast administration.FINDINGS: No acute fracture is present. Alignment is normal. The marrowsignal pattern is normal. There is no abnormal marrow enhancement.Thoracic spinal cord shows normal signal and contour. There is noabnormal cord enhancement.There is mild multilevel disc desiccation. There is no focal discherniation, canal stenosis or foraminal narrowing.IMPRESSION: Mild multilevel degenerative change without acute processes.No abnormal enhancement.Images reviewed, interpreted, and dictated by Dr. Amelia Crow.Transcribed by Seven Caputo PA-C.I have personally viewed, interpreted and dictated the examination. Ihave read and agree with the above final transcribed report. US Veins LE Duplex BILAT (10/17/2021 11:56) Result: BILATERAL LOWER EXTREMITY VENOUS DUPLEX DOPPLER EXAMINATIONHISTORY: Bilateral lower extremity swelling.COMPARISON: NonePROCEDURE: Multiple transverse and longitudinal scans were performed ofboth femoropopliteal deep venous system, with augmentation andcompression maneuvers.FINDINGS:Right lower extremity: Right posterior tibial vein is enlarged and not compressible anddemonstrates intraluminal echogenicity, consistent with acutethrombosis. In the remaining veins, there is normal phasic flow wasnoted in the visualized deep venous system. No intraluminal increasedechogenicity is noted to suggest thrombus. There is normal compressionand augmentation of the venous structures. No abnormal venouscollaterals are seen.Left lower extremity: Normal phasic flow was noted in the visualized deep venous system. Nointraluminal increased echogenicity is noted to suggest thrombus. Thereis normal compression and augmentation of the venous structures. Noabnormal venous collaterals are seen.IMPRESSION:Acute DVT in the right below knee veins involving the popliteal vein.No evidence of acute DVT within the left lower extremity.CRITICAL RESULT:Yes.COMMUNICATION:These findings were discussed with SHARYN Montana on 10/17/2021 11:48 AM Cuauhtemoc Jung, over the phone.Images personally reviewed, interpreted, and dictated by FERNY Eaton. IMPRESSION: 1. Disseminated VZV infection-This occurred in the setting of profound immunocompromise related to his underlying CLL. He will be at high risk for recurrent disseminated zoster and will need to be on lifelong Valtrex suppression. I discussed the need to remain hydrated while on Valtrex therapy. 2. Acute RLE weakness/Sciatica???he has right leg weakness and sciatica related to his significant degenerative lumbar disc disease. 3. Acute RLE DVT/on Eliquis 4. Leukocytosis/neutrophilia, likely steroid induced 5. Chronic lymphocytic leukemia 6. Mitral valve prolapse RECOMMENDATIONS/PLANS: Thank you for asking us to see Corbin Hu. Recommend the followin. Start Valtrex 1 GM PO daily for lifelong suppression 2. Continue supportive care UM/MICHAEL: Okay to discharge from ID perspective when ready. He will need to stay on Valtrex 1 GM PO daily for lifelong suppression. Follow up with Dr. Trena Donahue 2 weeks from discharge. Trena Donahue MD saw and examined patient, verified findings, reviewed labs and radiographic data, formulated diagnosis, plan for treatment, and all medical decision making. Christos Farris PA-C for Dr. Trena Donahue. Electronically signed by Huy [facility] Conversion Roll Forger Cerner at 08/17/2022 6:00 PM CDT documented in this encounter Plan of Treatment Not on file documented as of this encounter Visit Diagnoses Not on filedocumented in this encounter Care Teams Psychologist Chief Relationship Specialty Start Date End Date Eladio Lomas MD [address] [facility] [address] [address] Medical Oncologist Hematology and Oncology 07/08/22 Breanna Crow PA-C [facility] [address] [place] [address] Physician Instrument Setter Oncology 07/08/22 documented as of this encounter
--- OUTSIDE RECORDS SUMMARY | 2024-10-22 10:48 | XMS_ITS | Encounter Summary ---
Author Organization [facility] Address [address] [id number] Care Team Providers Care Environmental Health Officer Name Role Phone Per Patient, None Primary Care Provider Unavaila ble Encounter Details Date Type Department Care Team ([facility] st Contact Info) Description 10/08/2021 Lab Requisition [facility] [address] [place] [address] Maurice Power MD [facility] [address] Unspecified lesions of oral mucosa Social History Tobacco Use Types Packs/Day Years Used Date Smoking Tobacco: Never Assessed Sex and Gender Information Value Date Recorded Sex Assigned at Not on file Legal Sex Male 6:01 PM EDT Gender Identity Not on file Sexual Orientation Not on file documented as of this encounter Plan of Treatment Not on file documented as of this encounter Procedures Procedure Name Priority Date/Time Associated Diagnosis Comments PATHOLOGY TECHNICAL ONLY Routine 10/08/2021 Unspecified lesions of oral mucosa documented in this encounter Results * Pathology, Technical Only (10/08/2021) Final Diagnosis No report issued for this case number, accessioned for billing purposes only. 10/26/2021 7:22 AM EDT [facility] at 0722 EDT Case Report Surgical Pathology Report Case: [id number] Authorizing Provider: Maurice Power MD Collected: 10/08/2021 Ordering Location: [facility] Received: 10/08/2021 6978 Pathologist: Cindy Flores MD Specimen: [id number] 10/26/2021 7:22 AM EDT [facility] Tissue 10/08/2021 10/08/2021 4:5 9 PM EDT us Maurice Power MD LAB PATHOLOGY ORDERABLES Final Result [facility] [address] [place] [address] documented in this encounter Visit Diagnoses Diagnosis Unspecified lesions of oral mucosa documented in this encounter Care Teams Environmental Health Officer Relationship Specialty Start Date End Date Per Patient, [place] [address] PCP - General 05/02/20 documented as of this encounter
--- OUTSIDE RECORDS SUMMARY | 2024-10-22 10:48 | XMS_ITS | Encounter Summary ---
Author Organization Healthcare Address [address] [place] [address] Care Team Providers Care Mergers And Acquisitions Attorney Name Role Phone Per Patient, None Primary Care Provider Unavaila ble Encounter Details Date Type Department Care Team (Late st Contact Info) Description 01/07/[address] [facility] [address] [place] [address] Maurisio Aguilar MD [address] [address] Social History Tobacco Use Types Packs/Day Years [...] Procedure Name Priority Date/Time Associated Diagnosis Comments CBC WITH AUTO DIFFERENTIAL Routine 01/07/2021 10:05 AM EDT documented in this encounter Results * CBC and Differential (01/07/2021 10:05 AM EDT) External WBC 6.9 3.8 - 10.8 K/uL [facility] External Red Blood Cell (RBC) 5.24 4.20 - 5.80 M/uL [facility] External Hemoglobin 15.5 14.0 - 18.0 G/DL [facility] External Hematocrit 44.1 40.0 - 52.0 % [facility] External MCV 84 80 - 100 fL [facility] External MCH 30 26 - [address] [facility] External MCHC 35 32 - 36 G/DL [facility] External RDW 13.5 11.0 - 15.0 % [facility] External Mean Platelet Volume 7.6 6.2 - 10.5 fL [facility] External Platelets 162 130 - 400 K/uL [facility] External Neutrophil# 3.0 1.6 - 8.4 K/uL [facility] External Lymphocyte# 3.2 0.4 - 5.1 K/uL [facility] External Absolute Monocyte (Abs Lajas) 0.4 0.0 - 1.2 K/uL [facility] External Eosinophils# 0.1 0.0 - 0.8 K/uL [facility] External Baso# 0.0 0.0 - 0.3 K/uL [facility] External Neutrophils % 43.0 42.0 - 78.0 % [facility] External Lymphocyte % 46.0 11.0 - 47.0 % [facility] External Monocyte % 6.0 0.0 - 11.0 % [facility] External Eosinophil% 1.0 0.0 - 7.0 % [facility] External Basophil % 0.0 0.0 - 3.0 % [facility] External Nucleated RBC%-Auto 0.2 0.0 - 0.9 % [facility] External Nucleated RBC Absolute 0.01 Not Estab. K/uL [facility] 01/07/2021 10:0 5 AM EDT 01/07/2021 10:20 AM EDT us Maurisio Aguilar MD LAB BLOOD ORDERABLES Final Res ult Performing Organization Address City/State/[facility] [[email or web address]] Co de Phone Number [facility] [address] [phone], documented in this encounter Visit Diagnoses Not on filedocumented in this encounter Care Teams Mergers And Acquisitions Attorney Relationship Specialty Start Date End Date Per Patient, [place] [address] PCP - General 05/02/20 documented as of this encounter
--- OUTSIDE RECORDS SUMMARY | 2024-10-22 10:48 | XMS_ITS | Encounter Summary ---
Author Organization Healthcare Address [address] [place] [address] Care Team Providers Care Newscast Producer Name Role Phone Per Patient, None Primary Care Provider Unavaila ble Encounter Details Date Type Department Care Team (Late st Contact Info) Description 01/07/2021 Orders Only [facility] [address] [place] [address] Maurisio Aguilar MD [address] [address] Social History Tobacco Use Types [...] Procedure Name Priority Date/Time Associated Diagnosis Comments MANUAL DIFFERENTIAL Routine 01/07/2021 1 0:05 AM EDT documented in this encounter Results * (ABNORMAL) Manual Differential (01/07/2021 10:05 AM EDT) External Band Neutrophil% 0.0 0.0 - 7.0 % [facility] External Atypical Lymph% 4(H) 0 - 1 % [facility] External Metamyelocyte % 0 0 - 1 % [facility] External Myelocyte % 0 0 - 1 % [facility] External Promyelocyte% 0 % [facility] External Blast% 0 % [facility] External Nucleated RBC%-Manual 0 /100 WBC [facility] External Smudge Cells 0 [facility] External Platelet Morphology NORMAL [facility] External Ovalocytes SLIGHT(A) [facility] External Tear Drop Cells SLIGHT(A) [facility] 01/07/2021 10:0 5 AM EDT 01/07/2021 10:20 AM EDT us Maurisio Aguilar MD LAB BLOOD ORDERABLES Final Res ult Performing Organization Address City/State/[facility] Co de Phone Number [facility] [address] [place] [address], documented in this encounter Visit Diagnoses Not on filedocumented in this encounter Care Teams Newscast Producer Relationship Specialty Start Date End Date Per Patient, [place] [address] PCP - General 05/02/20 documented as of this encounter
--- OUTSIDE RECORDS SUMMARY | 2024-10-22 10:48 | XMS_ITS | Encounter Summary ---
Author Organization [employer] Address [address] [place] [address] Care Team Providers Care Plug Sorter Name Role Phone Eladio Lomas MD Unavailable Breanna Crow PA-C Unavailable Encounter Details Date Type Department Care Team (Late st Contact Info) Description 10/17/2021 Transcribed Document [facility] [place] [place] Family Medicine [facility] [place] [address] ProviderJailyn MD [address] [place] [address] Social History Tobacco Use Types [...] Note - Jailyn Lira MD - 10/17/2021 12:11 PM CDT Patient: SARAH HU Age: 71 years Sex: Male : 1950 Associated Diagnoses: None Author: GARCIA WORKMAN MD-ORT Results Review Notes is a somewhat changed He tells me he had a long history of intermittent back pain. He is now having numbness in the right lower extremity and the weakness. He continues of the foot drop. Apparently the diagnosis of chickenpox was made with biopsy, the only way of biopsy can make the diagnosis, staging due to genetic staining. I am going to assume that as it was a generator assembler who did the biopsy, and and told him that the biopsy showed varicella, that this rash is probably chickenpox. MRI of the thoracic spine is normal I am not so sure that this is a chickenpox lesion. I think this may be more of a nerve root compression lesion. Even though the MRI is not very impressive. There is mild to moderate stenosis, I do not see anything severe. I have looked at his back he has a rash all over his back, until this rash clears, he cannot have surgery. He would be at high risk of getting an infection. Recommendation-if the patient goes home I do not have a problem with that just notify me so I can arrange follow-up. In approximately 7 to 14 days when the rash is healed up, myelogram and CAT scan, if it does show a compressive lesion on the right side, I would be more comfortable doing surgery on him. On today's evaluation he is not a surgical candidate directly where the surgery has to be, he has a rash, cutting through the rash, would likely result in an infection. Therefore we should get the rash cleared up for us keep the clean skin, and follow him up. He has to wear his AFO, and a walker for safety He has no neck symptoms suggestive of a myelopathy. Health Status Allergies: Allergic Reactions (Selected) Severity Not Documented Contrast media (iodine-based)- No reactions were documented. Shrimp- No reactions were documented., Allergies (2) Active Reaction contrast media (iodine-based) None Documented Shrimp None Documented Problem list: Medical At risk for sleep apnea / IMO [id number] / Confirmed, Active Problems (2) At risk for sleep apnea Mitral valve prolapse documented in this encounter Plan of Treatment Not on file documented as of this encounter Visit Diagnoses Not on filedocumented in this encounter Care Teams Plug Sorter Relationship Specialty Start Date End Date Eladio Lomas MD [address] [facility] [address] [place] [address] Medical Oncologist Hematology and Oncology 07/08/22 Breanna Crow, PA-C [address] [facility] [address] [place] [phone] Physician Motorcycle Racer Oncology 07/08/22 documented as of this encounter
--- OUTSIDE RECORDS SUMMARY | 2024-10-22 10:48 | XMS_ITS | Referral Summary ---
Author Organization [email or web address] Address [address] [place] [address] Care Team Providers Care Pay Station Department Manager Name Role Phone Eladio Lomas MD Unavailable Breanna Crow PA-C Unavailable [phone] Allergies Active Allergy Reactions Criticality Noted Date Comments Iodinated Contrast Media 03/24/2022 Medications multivitamin capsule Multiple Vitamin capsule Daily Active valACYclovir (VALTREX) 1000 MG tablet 1 po daily. 90 tablet 3 10/12/2022 Active Active Problems Problem Noted Date Diagnosed Date Hypercoagulable state 04/16/2023 CLL (chronic lymphocytic leukemia) 03/29/2022 Social History Tobacco Use Types Packs/Day Years Used Date Smoking Tobacco: Former Cigarettes 1 8 0 05/02/1968 - 05/02/1976 Tobacco Cessation:Counseling Given: Not Answered Alcohol Use Standard Drinks/Week Comments Not Currently 0 (1 standard drink = 0.6 oz pur e alcohol) Social Connection and Isolat ion Panel [NHANES] Answer Date Recorded In a typical week, how many times do you talk on the phone with family, friends, or neighbors? More than three times a week 07/08/2022 How often do you get togethe r with friends or relatives? More than three times a week 07/08/2022 How often do you attend chur ch or muslim services? Never 07/08/2022 Do you belong to any clubs o r organizations such as yarsani groups, unions, fraternal or athletic groups, or school groups? No 07/08/2022 Attends Club or Organization Meetings Not on jalen e 07/08/2022 Are you , , di vorced, , never , or living with a partner? 07/08/2022 AUDIT-C Answer Date Recorded Q1: How often do you have a drink containing alc ohol? Never 07/08/2022 Average Number of Drinks Not on file 023 Frequency of Binge Drinking Not on file 12/2022 Overall Financial Resource Strain (CARDIA) Answe r Date Recorded How hard is it for you to pa y for the very basics like food, housing, medical care, and heating? Not hard at all 07/08/2022 [facility] - Occupational Stress Questionnaire Answer Date Recorded Do you feel stress - tense, restless, nervous, or anxious, or unable to sleep at night because your mind is troubled all the time - these days? Not at all 07/08/2022 Exercise Vital Sign Answer Date Recorde d On average, how many days pe r week do you engage in moderate to strenuous exercise (like a brisk walk)? 0 days Minutes of Exercise per Session Not on file 07/08/2022 Hunger Vital Sign Answer Date Recorded Within the past 12 months, y ou worried that your food would run out before you got the money to buy more. Never true 07/09/19 23 Within the past 12 months, t he food you bought just didn't last and you didn't have money to get more. Never true 07/08/2022 PRAPARE - Transportation Answer Date Re corded In the past 12 months, has l ack of transportation kept you from medical appointments or from getting medications? No 12/2022 In the past 12 months, has l ack of transportation kept you from meetings, work, or from getting things needed for daily living? No 07/08/2022 Housing Stability Vital Sign Answer Min e Recorded In the last 12 months, was t here a time when you were not able to pay the mortgage or rent on time? No 07/08/2022 Number of Places Lived in the Last Year Not on f ile 07/08/2022 In the last 12 months, was t here a time when you did not have a steady place to sleep or slept in a fpc (including now)? No 07/08/2022 Interpersonal Safety Answer Date Record ed Family or friends hurt you Not on file 05/13 Family or friends insult you Not on file 04/2024 Family or friends threaten you Not on file 0 05/13/2023 Family or friends scream or curse at you Not on file 05/13/2023 Housing Stability Answer Date Recorded Living situation today Not on file Living situation problems Not on file 2023 Family and Community Support Answer Min e Recorded Help with Day to Day Activities Not on file 05/13/2023 Feeling Lonely or Isolated Not on file 05/13 Educational Attainment Answer Date Ata rded Speak language other than Grenadian at home Not on file 05/13/2023 Want help with school or training Not on file 05/13/2023 Depression Answer Date Recorded PHQ-2 Risk Not on file 05/13/2023 Disabilities Answer Date Recorded Difficulty concentrating Not on file 024 Difficulty doing errands alone Not on file 0 05/13/2023 Substance Use Answer Date Recorded Used prescription meds for non-medical reasons N ot on file 05/13/2023 Used illegal drugs past 12 months Not on file 05/13/2023 Sex and Gender Information Value Date Recorded Sex Assigned at Male 10/27/2021 8:22 PM CDT Legal Sex Male 8:22 PM CDT Gender Identity Male 10/27/2021 8:22 PM CDT Sexual Orientation Not on file Last Filed Vital Signs Vital Sign Reading Time Taken Comments Blood Pressure 164/78 04/21/2023 10:52 AM EST Pulse 80 04/21/2023 10:52 AM EST Temperature 37 C (98.6 F) 04/21/2023 10:52 AM EST Respiratory Rate 18 04/21/2023 10:52 AM EST Oxygen Saturation 97% 04/21/2023 10:52 AM EST Inhaled Oxygen Concentration - - Weight 73.3 kg (161 lb 8 oz) 04/21/2023 10:52 AM EST Height 169 cm (5' 6.54 ) 04/21/2023 10:52 AM EST Body Mass Index 25.65 04/21/2023 10:52 AM EST Plan of Treatment Not on file Insurance [facility] MEDICARE PPO [employer] MEDICARE PPO Care Teams Pay Station Department Manager Relationship Specialty Start Date End Date Eladio Lomas MD [address] [facility] [address] [place] [address] Medical Oncologist Hematology and Oncology 07/08/22 Breanna Crow, PARebelC [address] [facility] [address] [place] [address] Physician Center Director Oncology 07/08/22
--- OUTSIDE RECORDS SUMMARY | 2024-10-22 10:48 | XMS_ITS | Clinical Summary ---
Author Organization [employer] Address [address] [place] [address] Care Team Providers Care Snack Bar Attendant Name Role Phone Eladio Lomas MD Unavailable Breanna Crow PA-C Unavailable [phone] Allergies Active Allergy Reactions Criticality Noted [...] often do you attend chur ch or yazidism services? Never 07/08/2022 Do you belong to any clubs o r organizations such as baptist groups, unions, fraternal or athletic groups, or [...] and heating? Not hard at all 07/08/2022 [facility] - Occupational Stress [...] place to sleep or slept in a usp (including now)? No 07/08/2022 Interpersonal Safety Answer [...] Date Ata rded Speak language other than Tunisian at home Not on file 05/13/2023 Want [...] 04/21/2023 10:52 AM EST Plan of Treatment Health Maintenance Due Date Last Done Comments Medicare Initial AWV [id number] Depression Screening (12+) 1960 Hepatitis C Screening 01/05/1966 DTAP/TDAP/TD VACCINES (1 - Tdap) 01/05/1967 Shingles Vaccine (Zoster) (2 of 2) 04/08/20222021 Respiratory Syncytial Virus (RSV) Adult or (1 - 1-dose 75+ series) 01/05/2023 COVID-19 VACCINE (6 - 2023-2 5 season) 2024 03/05/2022, 08/25/2021, 03/02/2021, Additional history exists Tobacco Cessation Counseling and Screening (12+) 04/21/2024 04/21/2023 Falls Risk Screening 05/02/2024 Influenza Vaccine (Season Ended) 2024 02/11/2022, 02/05/2021, 04/10/2018, Additional history exists Pneumococcal 50+ years Completed 02/09/[address] [place] [address] [facility] MEDICARE PPO [facility] MEDICARE PPO Care Teams Snack Bar Attendant Relationship Specialty Start Date End Date Eladio Lomas MD [address] [facility] [address] [place] [address] Medical Oncologist Hematology and Oncology 07/08/22 Breanna Crow PA-C [address] [place] [address] Physician Final Inspector Shuttle Oncology 07/08/22
--- OUTSIDE RECORDS SUMMARY | 2024-10-22 10:48 | XMS_ITS | Clinical Summary ---
Author Organization [facility] Address [address] [place] [address] Care Team Providers Care Trolley Wire Installer Name Role Phone Per Patient, None Primary Care Provider Unavaila ble Social History Tobacco Use Types Packs/Day Years Used Date Smoking Tobacco: Never Assessed Sex and Gender Information Value Date Recorded Sex Assigned at Not on file Legal Sex Male 6:01 PM EDT Gender Identity Not on file Sexual Orientation Not on file Plan of Treatment Health Maintenance Due Date Last Done Comments [facility]-Depression Screening 1950 [facility]-Hepatitis C Screening 1950 [facility]-Medicare Annual Wellness (AWV) 1950 [facility]-/Child/Adol SDOH Screenings 1950 [facility]- SDOH Screenings 01/05/1966 [facility]-Adult SDOH Screenings 01/05/1966 [facility]-DTaP,Tdap,and Td Vaccines (1 - Tdap) 01/05/1967 [facility]-Pneumococcal Vaccine: 50+ Years (1 of 1 - PCV) 01/05/1998 [facility]-Zoster Vaccines (1 of 2) 01/05/1998 [facility]-RSV Vaccine: 60+ Years or (1 - 1-dose 75+ series) 01/05/2023 [id number] Vaccine ( - season) 2024 07/25/2020, 06/24/2020, 06/11/2020 [facility]-Influenza Vaccine (Season Ended) 2024 02/19/2020, 01/17/2020, 04/10/2018, Additional history exists HPV Vaccines Aged Out No longer eligi ble based on patient's age to complete this topic [facility]-HIB Vaccines Aged Out No longer e ligible based on patient's age to complete this topic [facility]-Hepatitis A Vaccines Aged Out No longer eligible based on patient's age to complete this topic [facility]-IPV Vaccines Aged Out No longer e ligible based on patient's age to complete this topic [facility]-Rotavirus Vaccines Aged Out No lo nger eligible based on patient's age to complete this topic Insurance [employer] MEDICARE Care Teams Trolley Wire Installer Relationship Specialty Start Date End Date Per [place], [place] [address] PCP - General 05/02/20
--- OUTSIDE RECORDS SUMMARY | 2024-10-22 10:48 | XMS_ITS | Encounter Summary ---
Author Organization [facility] Address [address] [place] [address] Care Team Providers Care Phosphorus Processing Supervisor Name Role Phone Eladio Lomas MD Unavailable Breanna Crow PA-C Unavailable [phone] Encounter Details Date Type Department Care Team (Late st Contact Info) Description 10/17/2021 Transcribed Document [facility] [place] [facility] [place] [address] ProviderJailyn MD [address] [place] [address] Social History Tobacco Use Types Packs/Day Years Used Date Smoking Tobacco: Never Assessed Sex and Gender Information Value Date Recorded Sex Assigned at Male 10/27/2021 8:22 PM CDT Legal Sex Male 8:22 PM CDT Gender Identity Male 10/27/2021 8:22 PM CDT Sexual Orientation Not on file documented as of this encounter Miscellaneous Notes * Cerner Conversion Note - aJilyn Lira MD - 10/17/2021 2:00 AM CDT Dye Stand Loader Details Entered On: 10/17/2021 5:10 EDT Performed On: 10/17/2021 2:00 EDT by ROMERO HOWARD LPN-LVN-PATIENT CARE BEDSIDE Order Details Transport Mode Order Detail : Bed (including specialty) Isolation Precautions Order Detail : Standard Precautions Order Detail : N/A IV Order Detail : 1 Oxygen Order Detail : 0 Nurse Collect Order Detail : 0 Lift/Transfer : Moderate assist Central Line Order Detail : No Room Service : Not Appropriate Arterial Line : No Patient Needs Meds Crushed/Liquid : No ROMERO HOWARD LPN-LVN-PATIENT CARE BEDSIDE - 10/17/2021 5:09 EDT Electronically signed by Huy [facility] Conversion Tank Builder And Erector Cerner at 08/17/2022 6:17 PM CDT documented in this encounter Plan of Treatment Not on file documented as of this encounter Visit Diagnoses Not on filedocumented in this encounter Care Teams Phosphorus Processing Supervisor Relationship Specialty Start Date End Date Eladio Lomas MD [address] [facility] [address] [address] Medical Oncologist Hematology and Oncology 07/08/22 Breanna Crow, PACecilia [address] [address] Physician Criminal Justice Instructor Oncology 07/08/22 documented as of this encounter
--- OUTSIDE RECORDS SUMMARY | 2024-10-22 10:48 | XMS_ITS | Encounter Summary ---
Author Organization [employer] Address [address] [facility] [place] [address] Care Team Providers Care Maintenance Trainer Name Role Phone Eladio Lomas MD Unavailable Breanna Crow PA-C Unavailable [phone] Encounter Details Date Type Department Care Team (Late st Contact Info) Description 10/15/2021 Transcribed Document [facility] [place] [facility] [place] [address] ProviderJailyn MD [address] [place] [address] Social History Tobacco Use Types Packs/Day Years Used Date Smoking Tobacco: Never Assessed Sex and Gender Information Value Date Recorded Sex Assigned at Male 10/27/2021 8:22 PM CDT Legal Sex Male 8:22 PM CDT Gender Identity Male 10/27/2021 8:22 PM CDT Sexual Orientation Not on file documented as of this encounter Miscellaneous Notes * Cerner Conversion Note - Historical MD Soraya - 10/15/2021 4:59 AM CDT Nutrition Assessment Entered On: 10/15/2021 12:56 EDT Performed On: 10/15/2021 15:54 EDT by Barbi Salgado Non Emp Dietitian Nutrition Assessment Current Nutrition Regimen Comment : 10/15: automatic consult - MST = 5 (eating poorly d/t decreased appetite, unsure wt loss ). Pt is a 71 yo M admitted w/ RLE numbness x1 wk, had recent chicken pox 2-3 wks ago. Neurology consulted, s/p MRI. RD spoke w/ pt who endorsed a poor appetite POCKET STITCHER, 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 Instead of having 2 sandwiches/burgers, pt eating 1. Unsure of any wt loss, stated his UBW is 160#. Stated the bed scale wt of 130# seems to be too low and was also unsure of the accuracy of the 180# wt. RD to order new wt. Declined ONS at this time. RD noted no significant signs of muscle wasting or subcutaneous fat loss. Dx: R LE weakness and paresthesia PMH: CLL (in remission) Labs: K 3.4 Meds: benadryl, lovenox, Pepcid, KCl GI: LBM POCKET STITCHER, +BS Skin: no skin breakdown noted, healing chicken pox lesions Diet: Cardiac diet Intakes: 100% (x1 meal recorded) Allergies: Shrimp Ht: 66 in Wt: 180 vs 131# *varying wts since admit EMR Wt hx: 151# (11/28/17) BMI: 29.1 vs 21.2 IBW/%IBW: 142#/92-127% Barbi Salgado Non Emp Dietitian - 10/15/2021 15:53 EDT Nutrition Assessment Reason : Automatic referral Barbi Salgado Non Emp Dietitian - 10/15/2021 15:54 EDT Nutrition Diagnoses Energy Balance : Predicted suboptimal energy intake Energy Balance Related to : decreased appetitie POCKET STITCHER Energy Balance as Evidenced by : 50% intake compared to normal per pt recall Energy Balance Status : Active Barbi Salgado Non Emp Dietitichelly - 10/15/2021 15:53 EDT Nutrition Interventions Meals and Snacks : Fat-modified diet, Sodium modified diet Barbi Salgado Non Emp Dietitichelly - 10/15/2021 15:53 EDT Monitoring/Evaluation Energy Intake : Total energy intake Food Intake : Amount of food Protein Intake : Total protein Weight Status : Weight Maintanence Gastrointestinal Function : Bowel Function Barbi Salgado Non Emp Dietapril - 10/15/2021 15:53 EDT Nutrition Recommendations Dietitian Recommendations : 1. Continue current diet regimen. RD to continue to monitor for need and acceptance of ONS Goal: continued excellent intakes 80-100% 2. Weigh pt 1-2x/wk. RD to order new wt Goal: no significant changes in wt Nutritional Risk: Moderate Barbi Salgado Non Emp Dietitian - 10/15/2021 15:53 EDT documented in this encounter Plan of Treatment Not on file documented as of this encounter Visit Diagnoses Not on filedocumented in this encounter Care Teams Maintenance Trainer Relationship Specialty Start Date End Date Eladio Lomas MD [address] [facility] [address], [place] [address] Medical Oncologist Hematology and Oncology 07/08/22 Breanna Crow, PACecilia [address] [place] [address] Physician Microbiology Soil Scientist Oncology 07/08/22 documented as of this encounter
--- OUTSIDE RECORDS SUMMARY | 2024-10-22 10:48 | XMS_ITS | Encounter Summary ---
Author Organization [employer] Address [address] [place] [address] Care Team Providers Care Transit Worker Name Role Phone Eladio Lomas MD Unavailable Breanna Crow PA-C Unavailable [phone] Encounter Details Date Type Department Care Team (Late st Contact Info) Description 10/15/2021 Transcribed Document [facility] [place] [facility] [place] [address] ProviderJailyn MD [address] [place] [address] Social History Tobacco Use Types Packs/Day Years Used Date Smoking Tobacco: Never Assessed Sex and Gender Information Value Date Recorded Sex Assigned at Male 10/27/2021 8:22 PM CDT Legal Sex Male 8:22 PM CDT Gender Identity Male 10/27/2021 8:22 PM CDT Sexual Orientation Not on file documented as of this encounter Miscellaneous Notes * Cerner Conversion Note - Jailyn ProviderMD - 10/15/2021 5:00 PM CDT Chart Check - Review Order Profile Entered On: 10/15/2021 20:37 EDT Performed On: 10/15/2021 17:00 EDT by Celina Marley Non Emp RN Chart Check Powerplans Initiated/Discontinued as Appropriate : Yes All Active Orders Reviewed : Yes Celina Marley Non Emp RN - 10/15/2021 20:37 EDT documented in this encounter Plan of Treatment Not on file documented as of this encounter Visit Diagnoses Not on filedocumented in this encounter Care Teams Transit Worker Relationship Specialty Start Date End Date Eladio Lomas MD [address] [facility] [address] [place] [address] Medical Oncologist Hematology and Oncology 07/08/22 Breanna Crow PA-C [address] [id number] Physician Chiropractor Sole Practitioner Oncology 07/08/22 documented as of this encounter
--- OUTSIDE RECORDS SUMMARY | 2024-10-22 10:48 | XMS_ITS | Encounter Summary ---
Author Organization [employer] Address [address] [place] [address] Care Team Providers Care Industrial Maintenance Millwright Name Role Phone Eladio Lomas MD Unavailable Breanna Crow PA-C Unavailable [phone] Encounter Details Date Type Department Care Team (Late st Contact Info) Description 10/17/[address] [facility] [place] Medicine [facility] [place] [address] ProviderJailyn MD [address] [place] [address] Social History Tobacco Use Types Packs/Day Years Used Date Smoking Tobacco: Never Assessed Sex and Gender Information Value Date Recorded Sex Assigned at Male 10/27/2021 8:22 PM CDT Legal Sex Male 8:22 PM CDT Gender Identity Male 10/27/2021 8:22 PM CDT Sexual Orientation Not on file documented as of this encounter Miscellaneous Notes * [employer] Conversion Note - Jailyn ProviderMD - 10/17/2021 5:00 AM CDT Chart Check - Review Order Profile Entered On: 10/17/2021 5:08 EDT Performed On: 10/17/2021 5:00 EDT by ROMERO HOWARD LPN-LVN-PATIENT CARE BEDSIDE Chart Check Powerplans Initiated/Discontinued as Appropriate : Yes All Active Orders Reviewed : Yes ROMERO HOWARD LPN-LVN-PATIENT CARE BEDSIDE - 10/17/2021 5:08 EDT documented in this encounter Plan of Treatment Not on file documented as of this encounter Visit Diagnoses Not on filedocumented in this encounter Care Teams Industrial Maintenance Millwright Relationship Specialty Start Date End Date Eladio Lomas MD [address] [facility] [address] [place] [address] Medical Oncologist Hematology and Oncology 07/08/22 Breanna Crow PA-C [address] [facility] [address] [place] [address] Physician Lubricator Granulator Oncology 07/08/22 documented as of this encounter
--- OUTSIDE RECORDS SUMMARY | 2024-10-22 10:48 | XMS_ITS | Encounter Summary ---
Author Organization [employer] Address [address] [facility] [address] Care Team Providers Care Curriculum Assistant Principal Name Role Phone Eladio Lomas MD Unavailable Breanna Crow PA-C Unavailable [phone] Encounter Details Date Type Department Care Team (Late st Contact Info) Description 10/17/2021 Transcribed Document [facility] [place] [facility] [place] [address] ProviderJailyn MD [address] [place] [address] Social History Tobacco Use Types [...] Note - Jailyn Lira MD - 10/17/2021 11:52 AM CDT Patient: SARAH HU Age: 71 Years Sex: Male : 1950 Assessment/Plan Right leg weakness Lumbar radiculopathy -Patient presented with right foot drop associated with recent injury -MRI L-spine notable for broad disc bulge worse on the right side at L4-L5 level Recommendation -Physical therapy and Occupational Therapy while in-house -Continue Solu-Medrol 50 while in hospital-patient can be transitioned to prednisone taper for discharge -Consider neurosurgery/pain management postdischarge if symptoms do not improve Please call with questions. Thank you for the consult VTE Prophylaxis - Medical Apixaban 10 mg, Oral, Tab, BID, order duration: 7 Day(s), Start 10/16/21 13:28:00 EDT, Stop 10/23/21 8:59:00 EDT (Wilberto Mayorga, PHYSICIAN-CLINIC) Subjective Patient is awake and alert following commands appropriately. He notes that he is working with physical therapy-reports modest response. He remains on IV steroids. Vital Signs T: 36.7 ??C TMIN: 36.6 ??C TMAX: 36.7 ??C HR: 77(Monitored) RR: 17 BP: 143/52 SpO2: 98% Oxygen Settings (Last) Oxygen Therapy Mode: Room air (10/17/21 10:12:00) Intake & Output Totals Last 24 Hours (7a-7a) Input Total: 1058.44 mL Output Total: 0 mL Balance: 1058.44 mL Physical Exam General: Alert and oriented, well nourished, no acute distress Neurologic: Patient is awake and alert following commands appropriately. Cranial nerve II to XII is intact. 5 out of 5 strength in all extremities except for 2/5 dorsiflexion on the right foot and 3/5 plantarflexion Eye: normal conjunctiva HENT: Normocephalic, no scleral icterus Lungs: non-labored respiration Heart: Normal rate, regular rhythm Abdomen: non-distended Musculoskeletal: Normal range of motion and strength Skin: Skin is warm, dry and pink, has extensive rash consistent with recent varicella infection Psychiatric: Cooperative, appropriate mood and affect Medications acetaminophen-HYDROcodone 325 mg-5 mg oral tablet, 1 Tab, Oral, Q4H, PRN Benadryl, 25 mg= 1 Tab, Oral, 1-Time Dulcolax Laxative, 5 mg= 1 Tab, Oral, Daily, PRN DuoNeb 0.5 mg-2.5 mg/3 mL inhalation solution, 3 mL, Nebulized Inhalation , RT_Q6H, PRN Eliquis, 10 mg= 2 Tab, Oral, BID hydrALAZINE, 20 mg= 1 mL, IV Push, Q6H, PRN labetalol, 10 mg= 2 mL, IV Push, Q1H, PRN melatonin, 3 mg= 1 Tab, Oral, At Bedtime, PRN MiraLax, 17 Gram= 1 Packet, Oral, Daily, PRN morphine, 2 mg= 1 mL, IV Push, Q2H, PRN Pepcid, 20 mg= 1 Tab, Oral, Q12H potassium chloride 10 mEq oral tablet, extended release, 20 mEq= 2 Tab, Oral, BID Roxicodone, 5 mg= 1 Tab, Oral, Q4H, PRN SOLU-Medrol + Sodium Chloride 0.9% intravenous solution 50 mL Tylenol, 650 mg= 2 Tab, Oral, Q4H, PRN Tylenol, 650 mg= 2 Tab, Oral, Q4H, PRN Zofran, 4 mg= 2 mL, IV Push, Q4H, PRN Lab Results Test Name Test Result Date/Time Sodium Level 144 mmol/L 10/17/2021 02:21 EDT Potassium Level 4.1 mmol/L 10/17/2021 02:21 EDT Chloride Level 109 mmol/L 10/17/2021 02:21 EDT Carbon Dioxide Level 28 mmol/L 10/17/2021 02:21 EDT Anion Gap 11 10/17/2021 02:21 EDT Glucose Level 110 mg/dL (High) 10/17/2021 02:21 EDT Blood Urea Nitrogen 22 mg/dL 10/17/2021 02:21 EDT Creatinine Level 0.84 mg/dL 10/17/2021 02:21 EDT eGFR >60 mL/min/1.73m2 10/17/2021 02:21 EDT eGFR NonAfrican >60 mL/min/1.73m2 10/17/2021 02:21 EDT Bun/Creatinine 26.2 (High) 10/17/2021 02:21 EDT Calcium Level 9.0 mg/dL 10/17/2021 02:21 EDT WBC 14.1 K/uL (High) 10/17/2021 02:21 EDT RBC 4.43 Million/uL (Low) 10/17/2021 02:21 EDT Hgb 13.0 Gram/dL (Low) 10/17/2021 02:21 EDT Hct 40.0 % (Low) 10/17/2021 02:21 EDT MCV 90.3 fL 10/17/2021 02:21 EDT MCH 29.3 pg 10/17/2021 02:21 EDT MCHC 32.5 Gram/dL 10/17/2021 02:21 EDT Platelet Count 226 K/uL 10/17/2021 02:21 EDT MPV 9.6 fL 10/17/2021 02:21 EDT RDW 13.2 % 10/17/2021 02:21 EDT Neut % 53.3 % 10/17/2021 02:21 EDT Neut # 7.53 K/uL (High) 10/17/2021 02:21 EDT Lymph % 30.8 % 10/17/2021 02:21 EDT Lymph # 4.35 K/uL (High) 10/17/2021 02:21 EDT Bollinger % 15.2 % (High) 10/17/2021 02:21 EDT Bollinger # 2.14 K/uL (High) 10/17/2021 02:21 EDT Eos % 0.0 % (Low) 10/17/2021 02:21 EDT Eos # 0.00 K/uL (Low) 10/17/2021 02:21 EDT Baso % 0.2 % 10/17/2021 02:21 EDT Baso # 0.03 K/uL 10/17/2021 02:21 EDT Slide Review No 10/17/2021 02:21 EDT IG# 0 x10(3)/uL 10/17/2021 02:21 EDT IG% 0 % 10/17/2021 02:21 EDT PTT 27.1 Second(s) 10/17/2021 02:21 EDT documented in this encounter Plan of Treatment Not on file documented as of this encounter Visit Diagnoses Not on filedocumented in this encounter Care Teams Curriculum Assistant Principal Relationship Specialty Start Date End Date Eladio Lomas MD [address] [facility] [address] [place] [address] Medical Oncologist Hematology and Oncology 07/08/22 Breanna Crow, PARebelC [address] [facility] [address] [place] [address] Physician Director Post Oncology 07/08/22 documented as of this encounter
--- OUTSIDE RECORDS SUMMARY | 2024-10-22 10:48 | XMS_ITS | Encounter Summary ---
Author Organization Healthcare Address [address] [place] [address] Care Team Providers Care Floor Covering Contractor Name Role Phone Per Patient, None Primary Care Provider Unavaila ble Encounter Details Date Type Department Care Team (Late st Contact Info) Description 01/07/2021 Orders Only [facility] [address] [place] [address] Maurisio Aguilar MD [address] [address] Social History Tobacco Use Types [...] Procedure Name Priority Date/Time Associated Diagnosis Comments COMPREHENSIVE METABOLIC PANEL, PLASMA Routine 01/07/2021 10:05 AM EDT documented in this encounter Results * Comprehensive Metabolic Panel, Plasma (01/07/2021 10:05 AM EDT) External Glucose 99 74 - 100 mg/dL [facility] External BUN 16 6 - 20 mg/dL [facility] External Creatinine Blood 0.93 0.70 - 1.28 mg/dL [facility] External BUN/Creat Ratio 17 10 - 20 (calc) [facility] External Sodium 141 136 - 145 mmol/L [facility] External Potassium 4.2 3.4 - 5.0 mmol/L [facility] External Chloride 102 98 - 107 mmol/L [facility] External Carbon Dioxide 25 22 - 31 mmol/L [facility] External Anion Gap (AG) 14 7 - 25 (calc) [facility] External Calcium 9.4 8.6 - 10.2 mg/dL [facility] External Total Protein 7.0 6.4 - 8.3 g/dL [facility] External Albumin 4.8 3.5 - 5.2 g/dL [facility] External Globulin 2.2 1.5 - 4.5 g/dL (calc) [facility] External Albumin/Globulin Ratio 2.2 1.1 - 2.5 (calc) [facility] External Bilirubin Total 0.4 0.1 - 1.2 mg/dL [facility] External Alkaline Phosphatase 85 40 - 129 U/L [facility] External AST (SGOT) 22 0 - 40 U/L [facility] External ALT (SGPT) 19 0 - 41 U/L [facility] External EGFR (If AFR/AM) 94 >=60 [facility] External Estimated GFR 81 >=60 [facility] Comment: NOTE Chronic kidney disease is defined as kidney damage for more than 3 months or a GFR less than 60 mL/min/1.73 m2 for greater than 3 months. This calculation has not been validated in women. For pediatric patients refer to [employer] Foundation https://www.kidney.org/professionals/KDOQI/gfr_calculatorPed 01/07/2021 10:0 5 AM EDT 01/07/2021 10:46 AM EDT us Maurisio Aguilar MD LAB BLOOD ORDERABLES Final Res ult [facility] [address] [place] [address], [place] [phone] documented in this encounter Visit Diagnoses Not on filedocumented in this encounter Care Teams Floor Covering Contractor Relationship Specialty Start Date End Date Per Patient, [place] [address] PCP - General 05/02/20 documented as of this encounter
--- OUTSIDE RECORDS SUMMARY | 2024-10-22 10:48 | XMS_ITS | Encounter Summary ---
Author Organization [employer] Address [address] [place] [address] Care Team Providers Care Culinary Artist Name Role Phone Eladio Lomas MD Unavailable Breanna Crow PA-C Unavailable [phone] Encounter Details Date Type Department Care Team (Late st Contact Info) Description 10/15/2021 Transcribed Document [facility] [place] [facility] [place] [address] ProviderJailyn MD [address] [place] [address] Social History Tobacco Use Types Packs/Day Years Used Date Smoking Tobacco: Never Assessed Sex and Gender Information Value Date Recorded Sex Assigned at Male 10/27/2021 8:22 PM CDT Legal Sex Male 8:22 PM CDT Gender Identity Male 10/27/2021 8:22 PM CDT Sexual Orientation Not on file documented as of this encounter Miscellaneous Notes * Erniener Conversion Note - Jailyn Lira MD - 10/15/2021 5:50 AM CDT Education-Wound Care Entered On: 10/15/2021 7:05 EDT Performed On: 10/15/2021 5:50 EDT by Tessy Gramajo RN-PATIENT CARE BEDSIDE NON-EXEMPT Teaching/Learning Assessment Barriers To Learning : None evident Individuals Taught : Patient, Spouse Readiness to Learn : Cooperative Baseline Knowledge of Topic : Good Readiness to Learn : Explanation Learning Style Preferences Patient : Verbal explanation Learning Style Preferences Family : Verbal explanation Tessy Gramajo RN-PATIENT CARE BEDSIDE NON-EXEMPT - 10/15/2021 7:05 EDT Electronically signed by Rock Son Conversion Certified Personal Finance Counselor Cerner at 08/17/2022 6:03 PM CDT documented in this encounter Plan of Treatment Not on file documented as of this encounter Visit Diagnoses Not on filedocumented in this encounter Care Teams Culinary Artist Relationship Specialty Start Date End Date Eladio Lomas MD [address] [facility] [address] [address] Medical Oncologist Hematology and Oncology 07/08/22 Breanna Crow PA-C [address] [place] [address] Physician Telegraphic Typewriter Operator Oncology 07/08/22 documented as of this encounter
--- OUTSIDE RECORDS SUMMARY | 2024-10-22 10:49 | XMS_ITS | Encounter Summary ---
Author Organization [facility] [employer] Address [address] [place] [address] Care Team Providers Care Construction Laborer Name Role Phone Eladio Lomas MD Unavailable Breanna Crow PA-C Unavailable [phone] Encounter Details Date Type Department Care Team (Late st Contact Info) Description 10/15/2021 Transcribed Document [facility] [address] ProviderJailyn MD [address] [place] [address] Social History Tobacco Use Types [...] Conversion Note - Historical ProviderMD - 10/15/2021 5:00 AM CDT Chart Check - Review Order Profile Entered On: 10/15/2021 7:04 EDT Performed On: 10/15/2021 5:00 EDT by Tessy Gramajo RN-PATIENT CARE BEDSIDE NON-EXEMPT Chart Check Powerplans Initiated/Discontinued as Appropriate : Yes Tessy Gramajo RN-PATIENT CARE BEDSIDE NON-EXEMPT - 10/15/2021 7:04 EDT documented in this encounter Plan of Treatment Not on file documented as of this encounter Visit Diagnoses Not on filedocumented in this encounter Care Teams Construction Laborer Relationship Specialty Start Date End Date Eladio Lomas MD [address] [facility] [address] [place] [address] Medical Oncologist Hematology and Oncology 07/08/22 Breanna Crow PA-C [address] [id number] Physician Terrazzo Finisher Oncology 07/08/22 documented as of this encounter
--- OUTSIDE RECORDS SUMMARY | 2024-10-22 10:49 | XMS_ITS | Encounter Summary ---
Author Organization [facility] [employer] Address [address] [place] [address] Care Team Providers Care Skein Yard Drier Name Role Phone Eladio Lomas MD Unavailable Breanna Crow PA-C Unavailable Encounter Details Date Type Department Care Team (Late st Contact Info) Description 12/29/2021 Transcribed Document [facility] [place] [facility] [place] [address] ProviderJailyn MD [address] [place] [address] Social History Tobacco Use Types [...] Conversion Note - Jailyn Lira MD - 12/29/2021 10:30 AM CDT Meds to Bed Enrollment Entered On: 12/29/2021 10:30 EDT Performed On: 12/29/2021 10:30 EDT by JOSELINE MIRAMONTES, RN Meds to Bed Enrollment Patient Enrollment Decision: : Yes/enroll in meds to bed program JOSELINE MIRAMONTES, RN - 12/29/2021 10:30 EDT documented in this encounter Plan of Treatment Not on file documented as of this encounter Visit Diagnoses Not on filedocumented in this encounter Care Teams Skein Yard Drier Relationship Specialty Start Date End Date Eladio Lomas MD [address] [facility] [address] [place] [address] Medical Oncologist Hematology and Oncology 07/08/22 Breanna Crow PA-C [address] [facility] [address] [place], [place] [id number] Physician Perfect Binder Setter Oncology 07/08/22 documented as of this encounter
--- OUTSIDE RECORDS SUMMARY | 2024-10-22 10:49 | XMS_ITS | Encounter Summary ---
Author Organization [facility] [employer] Address [address] [facility] [place] [address] Care Team Providers Care Horse Race Timer Name Role Phone Eladio Lomas MD Unavailable Breanna Crow PA-C Unavailable [phone] Encounter Details Date Type Department Care Team (Late st Contact Info) Description 10/29/2021 Transcribed Document [facility] Family Medicine [facility] [place] [address] ProviderJailyn MD [address] [place], [place] [address] Social History Tobacco Use Types Packs/Day Years Used Date Smoking Tobacco: Never Assessed Sex and Gender Information Value Date Recorded Sex Assigned at Male 10/27/2021 8:22 PM CDT Legal Sex Male 8:22 PM CDT Gender Identity Male 10/27/2021 8:22 PM CDT Sexual Orientation Not on file documented as of this encounter Miscellaneous Notes * Cerner Conversion Note - Jailyn Lira MD - 10/29/2021 8:47 AM CDT UM Authorization Entered On: 10/29/2021 8:51 EDT Performed On: 10/29/2021 8:47 EDT by DIETER MAR RN Primary Insurance Authorization Authorization and Policy Numbers : Insurance 1 Health Plan: [employer] PPO Policy Number: [id number] Authorization Number: Insurance Primary Name : [employer] PPO [id number] Authorization Status-Primary : Denied Reference Number-Primary : [id number] Authorized Service Begin Date-Primary : 10/15/2021 EDT Authorization Comments-Primary : Per email from [employer] on 10/[address] Arellano or Taco possibly attempt this P2P? Dr. Meadows and Estefany are already scheduled for multiple this week. They are doing these for the physicians who are not on service.. Sent to Dr. España but no response back. Sent to appeals. Historical Authorization Comments-Primary : Comment 1: Emailed denial to Arnulfo/[employer] (DIETER MAR RN 10/20/2021 13:43) Comment 2: Rec faxed Denial from [employer] 10/19/21 Placed in tray on [employer] desk (KEI JEAN-BAPTISTE, [place] 10/19/2021 13:08) Comment 3: [employer] CHO[employer] PPO auth still pending per availity (JUNAITA HUGO, SHARYN-Utilization Review 10/19/2021 11:01) Comment 4: Clinicals faxed via [employer] (Natalie Lauren, Sharyn-Utilization Review 10/15/2021 09:30) Comment 5: [employer] CHO[employer] PPO auth pending per Star note. (JUANITA HUGO, RN-Utilization Review 10/15/2021 09:18) DIETER MAR RN - 10/29/2021 8:47 EDT documented in this encounter Plan of Treatment Not on file documented as of this encounter Visit Diagnoses Not on filedocumented in this encounter Care Teams Horse Race Timer Relationship Specialty Start Date End Date Eladio Lomas MD [address] [facility] [address] [place] [address] Medical Oncologist Hematology and Oncology 07/08/22 Breanna Crow PA-C [address] [facility] [address] [place] [address] Physician Tower Watchman Oncology 07/08/22 documented as of this encounter
--- OUTSIDE RECORDS SUMMARY | 2024-10-22 10:49 | XMS_ITS | Encounter Summary ---
Author Organization [employer] Address [address] [place] [address] Care Team Providers Care Manager Digital Ad Operations Name Role Phone Eladio Lomas MD Unavailable Breanna Crow PA-C Unavailable [phone] Encounter Details Date Type Department Care Team (Late st Contact Info) Description 10/15/2021 Transcribed Document [facility] [place] [facility] [place] [address] ProviderJailyn MD [address] [place] [address] Social History Tobacco Use Types [...] Note - Jailyn Lira MD - 10/15/2021 3:12 PM CDT Patient: SARAH HU Age: 71 years Sex: Male : 1950 Associated Diagnoses: None Author: GARCIA WORKMAN MD-ORT Results Review Proximately 2 weeks ago, this gentleman developed a rash on his body. This was biopsied and the biopsy came back with a diagnosis of chickenpox. This 71-year-old gentleman remembers having chickenpox to his 4 years old, when he came on again, he is surprised that he had chickenpox. 4 days ago started develop some weakness in the right leg he was not able to walk. The leg was weak. There is not having a lot of pain. He is not having any fevers or any chills. I have carefully examined the gentleman. He has good mobility in the neck, the upper extremities with episodes no neurologic findings. He is not tender in the spine. He has just some mild weakness in knee extension, right side, marked weakness of foot dorsiflexion and great toe dorsiflexion. He has multiple chickenpox spots. His knee jerk is depressed as this is ankle jerk. He has mild weakness and foot plantar flexion. Right side. Sensory examination is normal. MRI of the lumbar spine-he has some stenosis but nothing really too severe, I can clearly see the L4 the L5 nerve roots certainly on the CAT scan, can clearly see the L4 the L5 and the S1 nerve roots. I would see any nerve root compression whatsoever. White count is elevated 11.3, electrolytes are relatively normal Assessment-I do not think the cause of his weakness is surgical. I do not think he has foot drop from nerve root compression. He has some form of myelitis, although either involving the lower lumbar spine or is somewhere along the thoracic spine. MRI imaging of the thoracic spine I think is appropriate at this time, see if there is a lesion somewhere along the spine along the motor cortex, as sensory examination is relatively normal. An alternative diagnosis would be polio, but it never seem to come on this lady, polio involves largely the motor fibers, and its random like this could be. My first diagnosis of course would be related to the chickenpox virus which he recently had. In the meantime, we get up as tolerated If infectious disease people think that steroids will help him have no problem with that being administered. I do not see any evidence here that surgery will help him. Physical therapy and Occupational Therapy to get him ambulating, using a walker for safety, AFO for the foot drop. Health Status Allergies: Allergic Reactions (Selected) Severity Not Documented Contrast media (iodine-based)- No reactions were documented. Shrimp- No reactions were documented., Allergies (2) Active Reaction contrast media (iodine-based) None Documented Shrimp None Documented Problem list: Medical At risk for sleep apnea / IMO [id number] / Confirmed, Active Problems (2) At risk for sleep apnea Mitral valve prolapse Objective VS/Measurements Measurements from flowsheet : Measurements 10/15/2021 4:48 EDT Height Source Stated Height Entry Format Ehrhardt Height/Length, GHANAIAN (ft) 5 ft Height/Length GHANAIAN 6 Inch CLINICALHEIGHT 167.64 cm Bailey Body Weight 63 kg Weight Source Bed scale Weight Entry Format Ehrhardt Weight Afghan lb 131 lb Weight Afghan oz 5 oz CLINICALWEIGHT 59.69 kg Body Surface Area (BSA) 1.67 m2 Body Mass Index 21.2 kg/m2 10/15/2021 3:09 EDT Height Source Not Done: Task Duplication (Not Done) Height Entry Format Not Done: Task Duplication (Not Done) Weight Source Not Done: Task Duplication (Not Done) 10/14/2021 18:31 EDT Height Source Stated Height Entry Format Ehrhardt Height/Length, GHANAIAN (ft) 5 ft Height/Length GHANAIAN 6 Inch CLINICALHEIGHT 167.64 cm Bailey Body Weight 62.88 kg Weight Source, ED Critical estimated dosing weight Weight Entry Format Ehrhardt Weight Afghan lb 180 lb CLINICALWEIGHT 81.82 kg Body Surface Area (BSA) 1.91 m2 Body Mass Index 29.1 kg/m2 HI documented in this encounter Plan of Treatment Not on file documented as of this encounter Visit Diagnoses Not on filedocumented in this encounter Care Teams Manager Digital Ad Operations Relationship Specialty Start Date End Date Eladio Lomas MD [address] [address] Medical Oncologist Hematology and Oncology 07/08/22 Breanna Crow PA-C [address] [place] [address] [address] [place] [id number] Physician Motor Setter Oncology 07/08/22 documented as of this encounter
--- OUTSIDE RECORDS SUMMARY | 2024-10-22 10:49 | XMS_ITS | Encounter Summary ---
Author Organization [facility] In iatives Address [address] [place] [address] Care Team Providers Care Helpdesk Administrator Name Role Phone Eladio Lomas MD Unavailable Breanna Crow PA-C Unavailable [phone] Encounter Details Date Type Department Care Team (Late st Contact Info) Description 10/15/2021 Transcribed Document [facility] [place] [facility] [place] [address] ProviderJailyn MD [address], [place] [id number] Social History Tobacco Use Types Packs/Day Years Used Date Smoking Tobacco: Never Assessed Sex and Gender Information Value Date Recorded Sex Assigned at Male 10/27/2021 8:22 PM CDT Legal Sex Male 8:22 PM CDT Gender Identity Male 10/27/2021 8:22 PM CDT Sexual Orientation Not on file documented as of this encounter Miscellaneous Notes * Cerner Conversion Note - Jailyn Lira MD - 10/15/2021 5:40 AM CDT Patient: SARAH HU Age: 71 Years Sex: Male : 1950 Chief Complaint RLE numbness x1 week. Primary Care Provider SMITH POE DR History of Present Illness Patient is a 71-year-old male with CLL not currently under treatment. He is generally healthy, active, independent. 2 to 3 weeks ago he developed chickenpox and has been treated with oral steroids. He also received valacyclovir. He was cutting grass approximately 1 week ago and noticed right leg weakness. This is only progressed over the last several days causing him to fall multiple times. He denies pain but does report some numbness especially from the knee down. He has no back pain or injury. CT lumbar spine showed no acute findings, degenerative changes in the spine. 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 Vitals are stable, mildly hypertensive. Labs significant for mild hypokalemia, mild leukocytosis, elevated D-dimer. Review of Systems Constitutional: No fevers, no chills, no sweats Eye: No recent visual problems ENMT: No change in hearing, no nasal congestion, no sore throat Respiratory: No shortness of breath, no cough Cardiovascular: No Chest pain, no palpitations, no syncope Gastrointestinal: No pain, no vomiting, no diarrhea Genitourinary: No hematuria, no dysuria Pertinent positives and negatives are noted in the HPI. All other systems were reviewed and are negative. Vital Signs T: 36.9 ??C HR: 62(Monitored) RR: 16 BP: 169/78 SpO2: 98% HT: 167.64 cm WT: 59.69 kg BMI: 21.2 Oxygen Settings (Last) Oxygen Therapy Mode: Room air (10/15/21 04:29:00) Physical Exam General: Alert, well nourished, no acute distress Neurologic: Moves all 4 extremities spontaneously, oriented X3, left leg normal strength, right leg drifts and is only able to maintain in air for short time, weakness with knee extension, plantar flexion and dorsiflexion, reports decreased sensation Eye: pupils equal, EOMI, normal conjunctiva HENT: Normocephalic, normal hearing, moist oral mucosa Neck: Supple, non-tender Lungs: Clear to auscultation, non-labored respiration, no crackles, no wheeze Heart: Normal rate, regular rhythm, 2/6 murmur, no edema Abdomen: Soft, non-tender, non-distended, normal bowel sounds Musculoskeletal: No obvious deformity, no tenderness Skin: Scattered small scabs/excoriations Psychiatric: Cooperative, appropriate mood and affect Assessment/Plan #Right lower extremity weakness and paresthesia CT lumbar spine unremarkable Consult neurology PT/OT #Elevated D-dimer Right lower extremity ultrasound ordered to rule out DVT #Elevated blood pressure Does not take any medication at home Continue to monitor with PRN meds #Hypokalemia Replace #CLL, in remission Disposition: Awaiting evaluation by neurology. May need MRI. VTE Prophylaxis - Medical Enoxaparin 40 mg, SubCutaneous, Inj, [id number], Routine, Start 10/15/21 7:00:00 EDT, 10/15/21 6:07:00 EDT (CANDIDA GUO) Problem List/Past Medical History Ongoing At risk for sleep apnea Mitral valve prolapse Historical No qualifying data Procedure/Surgical History ULTRASONOGRAPHY OF HEART WITH AORTA (11/29/2017), R & L HRT CATH WINJX HRT ART& L VENTR IMG. Home Medications (4) Active allopurinol 300 mg oral tablet 300 mg = 1 Tab, Oral, Daily lactobacillus acidophilus oral capsule 1 Cap, Oral, BID multivitamin See Instructions Tylenol 325 mg oral tablet 650 mg = 2 Tab, PRN, Oral, Q4H Allergies Shrimp contrast media (iodine-based) Social History Alcohol Alcohol Use History No. Substance Abuse Drug Use Hx: No. Tobacco Former smoker, quit more than 30 days ago Smoking Status. Years of Use: 8. Packs/Tins Daily: 0.5. Last Used: quit at age 26. Family History CAD - Coronary artery disease: Father. Liver cancer: Sister. Pancreatic cancer: Sister. Lab Results Test Name Test Result Date/Time Sodium Level 142 mmol/L 10/15/2021 00:19 EDT Potassium Level 3.4 mmol/L (Low) 10/15/2021 00:19 EDT Chloride Level 105 mmol/L 10/15/2021 00:19 EDT Carbon Dioxide Level 27 mmol/L 10/15/2021 00:19 EDT Anion Gap 13 10/15/2021 00:19 EDT Glucose Level 100 mg/dL 10/15/2021 00:19 EDT Blood Urea Nitrogen 21 mg/dL 10/15/2021 00:19 EDT Creatinine Level 0.74 mg/dL 10/15/2021 00:19 EDT eGFR >60 mL/min/1.73m2 10/15/2021 00:19 EDT eGFR NonAfrican >60 mL/min/1.73m2 10/15/2021 00:19 EDT Bun/Creatinine 28.4 (High) 10/15/2021 00:19 EDT Calcium Level 8.4 mg/dL (Low) 10/15/2021 00:19 EDT Protein Total 6.4 Gram/dL 10/15/2021 00:19 EDT Albumin Level 3.6 Gram/dL 10/15/2021 00:19 EDT Globulin 2.8 Gram/dL 10/15/2021 00:19 EDT A/G Ratio 1.3 10/15/2021 00:19 EDT Bilirubin Total 0.5 mg/dL 10/15/2021 00:19 EDT Alk Phos 84 Units/Liter 10/15/2021 00:19 EDT AST 26 Units/Liter 10/15/2021 00:19 EDT ALT 38 Units/Liter 10/15/2021 00:19 EDT CRP 0.5 mg/dL 10/15/2021 00:19 EDT CK 53 Units/Liter 10/15/2021 00:19 EDT WBC 11.9 K/uL (High) 10/15/2021 00:19 EDT RBC 4.72 Million/uL 10/15/2021 00:19 EDT Hgb 14.0 Gram/dL 10/15/2021 00:19 EDT Hct 41.0 % 10/15/2021 00:19 EDT MCV 86.9 fL 10/15/2021 00:19 EDT MCH 29.7 pg 10/15/2021 00:19 EDT MCHC 34.1 Gram/dL 10/15/2021 00:19 EDT Platelet Count 243 K/uL 10/15/2021 00:19 EDT MPV 9.5 fL 10/15/2021 00:19 EDT RDW 13.2 % 10/15/2021 00:19 EDT Neutrophil Percent Man 44 % (Low) 10/15/2021 00:19 EDT ANC # 5 K/uL 10/15/2021 00:19 EDT Lymph Percent Man 37 % 10/15/2021 00:19 EDT ALYC # 4 K/uL 10/15/2021 00:19 EDT [place] Percent Man 19 % (High) 10/15/2021 00:19 EDT RBC Morphology Normal 10/15/2021 00:[address] Estimate Adequate 10/15/2021 00:19 EDT Sed Rate Auto 5 mm/Hr 10/15/2021 00:19 EDT Slide Review Add Diff 10/15/2021 00:19 EDT D Dimer Quant 1039 ng/mL (High) 10/15/2021 00:19 EDT Additional Documentation Code Status Start: 10/15/21 5:38:00 EDT, DNR Full Treatment-No Intubation/No ACLS, Continuous Order Electronically signed by [facility] Conversion Signaler Cerner at 08/17/2022 5:58 PM CDT documented in this encounter Plan of Treatment Not on file documented as of this encounter Visit Diagnoses Not on filedocumented in this encounter Care Teams Helpdesk Administrator Relationship Specialty Start Date End Date Eladio Lomas MD [address] [facility] [address] [place] [address] Medical Oncologist Hematology and Oncology 07/08/22 Breanna Crow, PACecilia [address] [facility] [address] [place] [address] Physician Maternal Fetal Physician Oncology 07/08/22 documented as of this encounter
--- OUTSIDE RECORDS SUMMARY | 2024-10-22 10:49 | XMS_ITS | Encounter Summary ---
Author Organization [facility] In iatives Address [address] [place] [address] Care Team Providers Care Student Accounts Manager Name Role Phone Eladio Lomas MD Unavailable Breanna Crow PA-C Unavailable Encounter Details Date Type Department Care Team (Late st Contact Info) Description 01/01/2022 Transcribed Document [facility] [place] Family Medicine [facility] [place] [address] ProviderJailyn MD [address] [place] [address] Social History Tobacco Use Types [...] Conversion Note - Jailyn Lira MD - 01/01/2022 11:05 AM CDT [facility] Main OR PACU Summary Primary Physician: GARCIA WORKMAN MD-ORT Finalized Date/Time: 01/01/22 12:45:16 Pt. Name: SARAH HU /Sex: 1950 Male Med Rec #: [id number] Physician: GARCIA WORKMAN MD-ORT Financial #: [id number] Pt. Type: O Room/Bed: [facility]/ Admit/Disch: 01/01/22 09:26:00 - Institution: [facility] Main OR PACU Case Times Entry 1 In PACU I 01/01/22 11:50:00 Ready for PACU 01/01/22 12:38:00 Discharge Discharge from PACU 01/01/22 12:38:00 I Last Modified By: Lashay Liu RN 01/01/22 12:45:05 [facility] Main OR PACU Case Times Audit 01/01/22 12:45:05 Epic Beacon Analyst: SXPOWERS Modifier: SXPOWERS <+> 1 Ready for PACU Discharge <+> 1 Discharge from PACU I Finalized By: Lashay Liu, RN Document Signatures Signed By: Lashay Liu RN 01/01/22 12:45 documented in this encounter Plan of Treatment Not on file documented as of this encounter Visit Diagnoses Not on filedocumented in this encounter Care Teams Student Accounts Manager Relationship Specialty Start Date End Date Eladio Lomas MD [address] [facility] [address] [address] Medical Oncologist Hematology and Oncology 07/08/22 Breanna Crow, PA-C [address] [facility] [address] [place] [address] Physician Service Member Oncology 07/08/22 documented as of this encounter
--- OUTSIDE RECORDS SUMMARY | 2024-10-22 10:49 | XMS_ITS | Encounter Summary ---
Author Organization [facility] In iatives Address [address] [place] [address] Care Team Providers Care Body And Frame Man Name Role Phone Eladio Lomas MD Unavailable Breanna Crow PA-C Unavailable [phone] Encounter Details Date Type Department Care Team (Late st Contact Info) Description 10/15/2021 Transcribed Document [facility] Family Medicine [facility] [place] [address] ProviderJailyn MD [address] [place], [place] [address] Social History Tobacco Use Types Packs/Day Years Used Date Smoking Tobacco: Never Assessed Sex and Gender Information Value Date Recorded Sex Assigned at Male 10/27/2021 8:22 PM CDT Legal Sex Male 8:22 PM CDT Gender Identity Male 10/27/2021 8:22 PM CDT Sexual Orientation Not on file documented as of this encounter Miscellaneous Notes * Cerner Conversion Note - Jailyn Lira MD - 10/15/2021 9:29 AM CDT UM Authorization Entered On: 10/15/2021 9:29 EDT Performed On: 10/15/2021 9:29 EDT by Natalie Lauren Rn-Utilization Review Primary Insurance Authorization Authorization and Policy Numbers : Insurance 1 Health Plan: [employer] PPO Policy Number: [id number] Authorization Number: Insurance Primary Name : [employer] PPO [id number] Authorization Status-Primary : Pending Reference Number-Primary : [id number] Authorized Service Begin Date-Primary : 10/15/2021 EDT Historical Authorization Comments-Primary : Comment 1: [employer] PPO auth pending per Star note. (JUANITA HUGO, RN-Utilization Review 10/15/2021 09:18) Natalie Lauren, Rn-Utilization Review - 10/15/2021 9:29 EDT Electronically signed by [facility] Conversion Assistant Director Of Residence Life Cerner at 08/17/2022 5:57 PM CDT documented in this encounter Plan of Treatment Not on file documented as of this encounter Visit Diagnoses Not on filedocumented in this encounter Care Teams Body And Frame Man Relationship Specialty Start Date End Date Eladio Lomas MD [address] [facility] [address] [address] Medical Oncologist Hematology and Oncology 07/08/22 Breanna Crow, PA-C [address] [place] [address] [address] [place] [address] Physician Research Greenhouse Supervisor Oncology 07/08/22 documented as of this encounter
--- OUTSIDE RECORDS SUMMARY | 2024-10-22 10:49 | XMS_ITS | Encounter Summary ---
Author Organization [facility] In iatives Address [address] [place] [address] Care Team Providers Care Ultra Sound Technician Name Role Phone Eladio Lomas MD Unavailable Breanna Crow PA-C Unavailable Encounter Details Date Type Department Care Team (Late st Contact Info) Description 10/15/2021 Transcribed Document [facility] Family [place] [facility] [place] [address] ProviderJailyn MD [address] [place], [place] [id number] Social History Tobacco Use Types Packs/Day Years Used Date Smoking Tobacco: Never Assessed Sex and Gender Information Value Date Recorded Sex Assigned at Male 10/27/2021 8:22 PM CDT Legal Sex Male 8:22 PM CDT Gender Identity Male 10/27/2021 8:22 PM CDT Sexual Orientation Not on file documented as of this encounter Miscellaneous Notes * Cerner Conversion Note - Jailyn Lira MD - 10/15/2021 2:48 PM CDT Consult Phone Call Documentation Entered On: 10/15/2021 14:52 EDT Performed On: 10/15/2021 14:48 EDT by Miladys Carter Care Asst-Health Unit Coord Phone Call for Consults Consult Reason : right L5 radiculopathy causing foot drop Physician Requesting Consult : ROMERO INGRAM MD-SERENE Physician Requested for Consult : GARCIA WORKMAN MD-ORT Date and Time Call Returned : 10/15/2021 14:50 EDT Consult, Additional Information : Spoke with Dr. Workman in person concerning the consult. Miladys Carter, Gas Singer-Health Unit Coord - 10/15/2021 14:50 EDT documented in this encounter Plan of Treatment Not on file documented as of this encounter Visit Diagnoses Not on filedocumented in this encounter Care Teams Ultra Sound Technician Relationship Specialty Start Date End Date Eladio Lomas MD [address] [facility] [address] [place] [address] Medical Oncologist Hematology and Oncology 07/08/22 Breanna Crow, CHAVA [address] [address] Physician Nurses' Association Counselor Oncology 07/08/22 documented as of this encounter
--- OUTSIDE RECORDS SUMMARY | 2024-10-22 10:49 | XMS_ITS | Clinical Summary ---
Author Organization [facility] Address [address] [facility] [address] [place] [address] Phone Care Team Providers Care Billing Auditor Name Role Phone Godfrey ALFARO, José Miguel Michaels [facility] [phone] [ ] Conditions or Problems Problem Name Problem Code Onset Date Status Entry Date Provider Comment Standard Description Annotate Acute DVT of leg, right 928698920 (SNOMED CT) Active José Miguel Donahue MD Deep venous thrombosis of lower extremity Health advice, education, or counseling 374865783 (SNOMED CT) Active José Miguel Donahue MD Procedure carried out on subject PERSONAL HISTORY OF IMMUNOSUPPRES PILLO THERAPY 549060364 (SNOMED CT) 12/10 Active 12/10 José Miguel Donahue MD History of immunosuppressiv e therapy Foot drop, right 9161754 (SNOMED CT) 10/27 Active 10/27 José Miguel Donahue MD Foot-drop Benign Essential Hypertension 06451362 (SNOMED CT) 10/22 Active 10/22 Dorothy Juanpablo Benign hypertension Disseminated herpes zoster 38041448 (SNOMED CT) 10/22 Active 10/22 Dorothy Juanpablo Disseminated herpes zoster 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 10/22 Dorothy Juanpablo Leukemoid reaction Chronic lymphoid leukemia 10790991 (SNOMED CT) 10/22 Active 10/22 Dorothy Juanpablo Chronic lymphoid leukemia, disease Medications Medication Instructions Start Date Stop Date Generic Name [facility] Provider ELIQUIS 5 MG TABS twice a day apixaban [id number] Tonia Noland VALTREX 1 GM TABS Take 1 tablet by mouth once a day valacyclovir 66032241287 José Miguel Donahue MD ALLOPURINOL 300 MG TABS 1 tablet by mouth once a day allopurinol 00329858114 Suzanne Cope ELIQUIS 5 MG TABS 2 tablet by mouth twice a day apixaban 29489292290 Suzanne Cope PREDNISONE 10 MG TABS Take as directed prednisone 62944294447 Suzanne Cope VALTREX 500 MG TABS 2 tablet by mouth once a day valacyclovir 15509844736 Faby Donahue VALTREX 1 GM TABS Take 1 tablet by mouth once a day valacyclovir 95347274516 Faby Donahue ALLOPURINOL 300 MG TABS 1 tablet by mouth once a day allopurinol 01959038562 Marianayvette Wiggins ELIQUIS 5 MG TABS 2 tablet by mouth twice a day apixaban 00258834645 Marianayvette Wiggins Lactobacillus acidophilus 1 billion cell capsule 1 capsule by mouth twice a day lactobacillus acidophilus Mariana Wiggins MULTI-VITAMINS TABS multivitamin 21073556691 Mariana Wiggins PREDNISONE 10 MG TABS Take as directed prednisone 81650940648 Mariana Wiggins TYLENOL 325 MG TABS 2 tablet by mouth every four hours as needed acetaminophen 84795773312 Mariana Wiggins VALTREX 500 MG TABS 2 tablet by mouth once a day valacyclovir 04988326096 Mariana Rosalie Medications Administered No information available. Allergies, Adverse Reactions, Alerts Allergy Name Reaction Description Start Date Severity Statu s Provider SHRIMP Mild Active Mariana Wiggins CONTRAST MEDIA (IODINE-BASED) Mild Active Mariana rangel Results Date Name Value Unit Range Flag Description Lab Report: MANUAL DIFFERENT IAL BASOABSOLMAN 0.00 10*3/MM3 {Cells}/ uL 0.00-0.20 basophils, absolute, manual EOSINPABSMAN 0.30 10*3/MM3 {Cells}/ uL 0.00-0.40 eosinophils, absolute, manual MONOCYTABMAN 0.59 10*3/MM3 {Cells}/ uL 0.10-0.90 monocytes, absolute, manual LYMPHSABSMAN 7.09 10*3/MM3 {Cells}/ uL 0.70-3.10 H lymphocytes, absolute, manual NEUT CT MANU 6.79 10*3/mm3 1.70-7.00 neutr ophil count, blood, manual BASO % MANU 0.0 % 0.0-1.5 basophils as percent of blood leukocytes, manual count EOS % MANU 2.0 % 0.3-6.2 eosinophil s as percent of blood leukocytes, manual count MONOS % MANU 4.0 % 5.0-12.0 L monocyt es as percent of blood leukocytes, manual count LYMPH % MANU 8.0 % 19.6-45.3 L lympho cytes as percent of blood leukocytes, manual count PMN%(MANUAL) 46.0 42.7-76.0 neutro phils, polymorphonuclear as percent of blood leukocytes, manual count Lab Report: CBC With Differe ntial/Platelet, Comp. Metabolic Panel (14) CBC COMMENTS NOTE complete blood count (CBC), comments BASO# 0.00 10E3/mm3 0.00-0.20 Basophils [#/vol ume] in Blood EOS ABSLT 0.30 10E3/MM3 10*3/uL 0.00-0.40 Eosinophils [#/volume] in Blood MONOSCT AUTO 0.59 10E3/MM3 10*3/uL 0.10-0.90 Monocytes [#/vol ume] in Blood by Automated count LYMPHCT AUTO 7.09 10E3/MM3 10*3/mm3 0.70-3.10 H Lymphocytes [#/volume] in Blood by Automated count ABS NEUTROPH 6.79 10E3/MM3 10*3/uL 1.70-7.00 Neutrophils [#/volume] in Blood BASOPHIL % 0.0 % 0.0-1.5 Basophils/ 100 leukocytes in Blood by Manual count % EOS AUTO 2.0 % 0.3-6.2 Eosinophil s/100 leukocytes in Blood by Automated count MONOCYTE % 4.0 % 5.0-12.0 L Monocytes /100 leukocytes in Blood by Automated count LYMPHS % 48.0 % 19.6-45.3 H Lymphocyte s/100 leukocytes in Blood by Automated count PMN % 46.0 % 42.7-76.0 Neutrophils /100 leukocytes in Blood by Automated count Office Visit: rm 1 MEDS REVIEW Done Documenta tion of current medications (procedure) CIGARET SMKG yes Tobacco smoking status SMOK STATUS Former smoker Tobacco smoking status Lab Report: CBC (NO DIFF) PLATELETS 192 10*3/mm3 140-450 Platelets [#/volume] in Blood by Automated count [id number] 10.1 fL 6.0-12.0 GE use onl y - for Link[employer]ic import when terms are not otherwise specified RDW_ 12.9 12.3-15.4 RDW, no uni ts MCHC 34.4 G/DL 31.5-35.7 MCHC [Mass/ volume] by Automated count MCH 31.3 pg 26.6-33.0 MCH [Entiti c mass] by Automated count MCV 90.7 fL 79.0-97.0 MCV [Entiti c volume] by Automated count HCT 42.1 % 37.5-51.0 Hematocrit [Volume Fraction] of Blood by Automated count HGB 14.5 g/dL 13.0-17.7 Hemoglobin [Mass/volume] in Blood RBC 4.64 10*6/mm3 4.14-5.80 Erythrocyt es [#/volume] in Blood by Automated count WBC 14.23 10*3/mm3 3.40-10.8 0 H Leukocytes [#/volume] in Blood by Automated count Lab Report: COMPREHENSIVE ME TABOLIC PANEL ANIONGAP 8.0 mmol/L 5.0-15.0 anion gap, serum BUN/CREAT 20.2 7.0-25.0 Urea nitrogen/Creatinine [Mass Ratio] in Serum or Plasma BILI TOTAL 0.3 mg/dL 0.0-1.2 Bilirubin. total [Mass/volume] in Serum or Plasma ALK PHOS 77 U/L 39-117 Alkaline trevin sphatase [Enzymatic activity/volume] in Blood SGOT (AST) 24 U/L 1-40 Aspartate aminotransferase [Enzymatic activity/volume] in Serum or Plasma SGPT (ALT) 24 U/L 1-41 Alanine aminotransferase [Enzymatic activity/volume] in Serum or Plasma ALBUMIN 4.50 g/dL 3.50-5.20 Albumin [Ma ss/volume] in Serum or Plasma PROTEIN, TOT 6.4 g/dL 6.0-8.5 Protein [Mass/volume] in Serum or Plasma CALCIUM 9.4 mg/dL 8.6-10.5 Calcium [Moles/volume] in Serum or Plasma CO2 29.0 mmol/L 22.0-29.0 Carbon diox hortensia, total [Moles/volume] in Venous blood CHLORIDE 103 mmol/L 98-107 Chloride [Moles/volume] in Serum or Plasma POTASSIUM 4.2 mmol/L 3.5-5.2 Potassium [Moles/volume] in Serum or Plasma SODIUM 140 mmol/L 136-145 Sodium [Moles /volume] in Serum or Plasma CREATININE 0.94 mg/dL 0.76-1.27 Creatini ne [Mass/volume] in Serum or Plasma BUN 19 mg/dL 8-23 Urea nitrogen [Mass/volume] in Serum or Plasma GLUCOSE SER 87 mg/dL 65-99 Glucose [ Mass/volume] in Serum or Plasma Lab Report: Comp. Metabolic Panel (14), CBC, No Differential/Platelet RDW 12.9 % 12.3-15.4 Erythrocyte distribution width [Ratio] by Automated count A/G RATIO 2.4 g/dL Albumin/Celine bulin [Mass Ratio] in Serum or Plasma GLOBULIN 1.9 Globulin [Mass/volume] in Serum Plan of Care Type Date Detail Pending order STAT Labs Pending order STAT Labs Pending order STAT Labs Pending order STAT Labs Pending order CMP Pending order CBC with Differe ntial Procedures Code Procedure Name Date Entry Date CPT-sl STAT Labs CPT-sl STAT Labs CPT-sl STAT Labs CPT-sl STAT Labs CPT-83249 CMP [id number] CBC with Differential 2021 Vital Signs Date Name Value Unit Description BMI (Body Mass Index) 26.47 kg/m2 Bod y Mass Index (Ratio) Body Temperature 97.5 [degF] temperat ure E&M BP Diastolic 68 mm[Hg] blood pressu re, diastolic BP Systolic 134 mm[Hg] blood pressur e, systolic Heart Rate 80 /min pulse rate Height 66 [in_us] height E&M Respiratory Rate 16 /min respirat ory rate E&M Weight Measured 164.0 [lb_av] weight E& M Weight Measured 164.0 [lb_av] weight E& M Immunizations Vaccine Administration Date Standard Description CVX Co de Dose Prevnar 20 Intramuscular Suspension Prefilled Syringe 0.5 ML Prevnar 20 Intramuscular Suspension Prefilled Syringe 0.5 ML 216 0.5 mL Advance Directives Directive Description Start Date LIVING WILL ON FILE
--- OUTSIDE RECORDS SUMMARY | 2024-10-22 10:49 | XMS_ITS | Encounter Summary ---
Author Organization [facility] jslyhl In iatives Address [address] [place] [address] Care Team Providers Care Automobile Bumper Straightener Name Role Phone Eladio Lomas MD Unavailable Breanna Crow PA-C Unavailable [phone] Encounter Details Date Type Department Care Team (Late st Contact Info) Description 01/01/2022 Transcribed Document [facility] Family Medicine [facility] [place] [address] ProviderJailyn MD [address] [place] [address] Social History Tobacco Use Types [...] Note - Jailyn Lira MD - 01/01/2022 1:12 PM CDT [address] [address] SARAH HU :1950 Visit Time:01/01/2022 What to do next Your Diagnosis Spinal stenosis, lumbar region without neurogenic claudication, Spinal stenosis, lumbar region without neurogenic claudication Instructions From Your Care Team NO DRIVING FOR 24 HOURS. MAY SHOWER IN 24 HOURS. NO SOAKING IN TUB. Discharge Follow Up Instructions: Follow up mercedes't as written o [facility] Intake Sheet Follow Up Instructions: Follow-up in my office, 12-14 days.Prescription.-Check intake sheet from my office for follow-up date and appointment time Activity: Theodosia dressing. Do not remove. May shower with dressing on. She is 1 dressings comes off, cleaned with peroxide, triple antibiotic ointment and new dressing., Discharge Activity: No strenuous activities, Order Comment: Sitting, standing, walking, is fine. Minimize repetitive bending and twisting. May drive vehicle when legs feel normal, and no longer taking medication. And medically stable. Make sure patient has voided is medically stable prior to discharge Diet: Discharge Diet: Regular diet as tolerated Wound/Incision Care Instructions: With Aquasol dressing, patient may shower daily, using antibiotic soap, such as Dial. Dressing change prior to discharge when necessary with Aquasol. Follow-Up Appointments Follow Up with GARCIA WORKMAN MD-ORT When 01/14/2022 11:00 AM EDT Where: [address] [place] [address] [address] [place] [address]- Medications What How Much When Instructions Next Dose acetaminophen-oxyCODONE (Percocet 7.5/ 325 oral tablet) 1 Tablet(s) Oral Three Times A Day as needed for for pain Pickup at [facility] acetaminophen (Tylenol 325 mg oral tablet) 2 Tablet(s) Oral Every 4 Hours as needed for Pain (Mild 1-3) ergocalciferol (ergocalciferol 50 mcg (2000 intl units) oral capsule) 1 Capsule(s) Oral Every Day Duration: 14 Day(s) multivitamin (Multiple Vitamins oral tablet) 1 Tablet(s) Oral Every Day valACYclovir (Valtrex 1 g oral tablet) 1 Tablet(s) Oral Every Day Pharmacy Information [facility]: [address] [place], [place] [id number] [phone] Take your medications faithfully. Do NOT skip medication. Do NOT stop taking medications without the direction of a physician. Carry a list of your medications with you at all times, and take this medication list with you to your first follow up visit. Report any side effects. Avoid herbal remedies unless discussed with your physician. As part of your treatment plan, your physician may have prescribed a limited course of a controlled substance. This medication may be given to help people with moderate or severe pain or for other medical conditions, but there are risks involved with treatment. Common side effects may include nausea, constipation, drowsiness, sweating, itching, dry mouth, and rash. More serious side effects may include cognitive and motor impairment, like problems with thinking, concentrating, alertness, and movement (e.g. slowed reflexes), and driving and operating heavy machinery can be dangerous. It is important for you to talk to your physician if you have these side effects or questions. These controlled substances can produce physical dependence and be habit-forming if taken for an extended period of time, which means that the body has gotten used to them and may experience withdrawal symptoms if they are abruptly stopped. Withdrawal symptoms can include runny nose, sweating, goose bumps, diarrhea, abdominal cramping, rapid heartbeat, difficulty sleeping, and nervousness. Please dispose of unused and medications per pharmacy guidance. Education Materials Lumbar Diskectomy, Care After This sheet gives you information about how to care for yourself after your procedure. Your health care provider may also give you more specific instructions. If you have problems or questions, contact your health care provider. What can I expect after the procedure? After the procedure, it is common to have: ??? Pain in the lower back, in the area of the incision. ??? Numbness in the legs or in the lower back. ??? Weakness in the legs. Follow these instructions at home: Medicines ??? Take zakn-ags-vkpotie and prescription medicines as told by your health care provider. Finish all antibiotic medicine even when you start to feel better. ??? If you were prescribed an antibiotic medicine, take it as told by your health care provider. Do not stop using the antibiotic even if you start to feel better. ??? Ask your health care provider if the medicine prescribed to you: ? Requires you to avoid driving or using machinery. ? Can cause constipation. You may need to take these actions to prevent or treat constipation: ? Drink enough fluid to keep your urine pale yellow. ? Take tgjo-kta-jtlbveg or prescription medicines. ? Eat foods that are high in fiber, such as beans, whole grains, and fresh fruits and vegetables. ? Limit foods that are high in fat and processed sugars, such as fried or sweet foods. Incision care ??? Follow instructions from your health care provider about how to take care of your incision. Make sure you: ? Wash your hands with soap and water for at least 20 seconds before you change your bandage (dressing). If soap and water are not available, use hand adult specialist. ? Change your dressing as told by your health care provider. You may need to have someone change your dressing for you. ? Leave stitches (sutures), skin glue, or adhesive strips in place. These skin closures may need to stay in place for 2 weeks or longer. If adhesive strip edges start to loosen and curl up, you may trim the loose edges. Do not remove adhesive strips completely unless your health care provider tells you to do that. ??? Check your incision area every day for signs of infection. If you cannot see your incision, have someone check it for you. Check for: ? More redness, swelling, or pain. ? Fluid or blood. ? Warmth. ? Pus or a bad smell. Bathing ??? Do not take baths, swim, or use a hot tub until your health care provider approves. Ask your health care provider if you may take showers. You may only be allowed to take sponge baths. ??? Keep the dressing dry until your health care provider says it can be removed. Activity ??? Rest as told by your health care provider. ??? Avoid sitting or lying for a long time without moving. Get up to take short walks every 1???2 hours. This is important to improve blood flow and breathing. Ask for help if you feel weak or unsteady. ??? Do not climb stairs more than one time each day until your health care provider approves. ??? Do not bend or twist at the waist until your health care provider approves. To lower yourself to pick things up, bend your knees instead of tipping your upper body forward. ??? Do not lift anything that is heavier than 10 lb (4.5 kg), or the limit that you are told, until your health care provider says that it is safe. Avoid lifting anything above the level of your head. ??? Avoid pushing and pulling motions, or other motions that require a lot of effort, such as vacuuming. ??? Do exercises as told by your health care provider. ??? Return to your normal activities as told by your health care provider. Ask your health care provider what activities are safe for you. Managing pain, stiffness, and swelling ??? If directed, put ice on the affected area. To do this: ? If you have a removable brace, remove it as told by your health care provider. ? Put ice in a plastic bag. ? Place a towel between your skin and the bag. ? Leave the ice on for 20 minutes, 2-3 times a day. ? Remove the ice if your skin turns bright red. This is very important. If you cannot feel pain, heat, or cold, you have a greater risk of damage to the area. Driving ??? If you were given a sedative during the procedure, it can affect you for several hours. Do not drive or operate machinery until your health care provider says that it is safe. ??? Ask your health care provider when it is safe to drive. General instructions ??? Take cikk-mej-addeejl and prescription medicines only as told by your health care provider. ??? Do not use any products that contain nicotine or tobacco, such as cigarettes and e-cigarettes. These can delay bone healing. If you need help quitting, ask your health care provider. ??? If you have a back brace, wear it as told by your health care provider. Remove it only as told by your health care provider. ??? Keep all follow-up visits. This is important. Contact a health care provider if: ??? You have a fever. ??? Your pain is not controlled with medicine. ??? You have pain, numbness, or weakness that lasts longer than 3 weeks after surgery. ??? You become constipated. ??? You have more redness, swelling, or pain in your incision area. ??? You have fluid or blood coming from your incision. ??? Your incision feels warm to the touch. ??? You have pus or a bad smell coming from your incision. Get help right away if: ??? You have increasing pain, numbness, or weakness. ??? You lose control of when you urinate or have a bowel movement (incontinence). ??? You have chest pain. ??? You have trouble breathing. ??? You have pain or swelling in your lower leg. ??? You have confusion or are difficult to wake up. These symptoms may represent a serious problem that is an emergency. Do not wait to see if the symptoms will go away. Get medical help right away. Call your local emergency services (911 in the [place] Do not drive yourself to the hospital. Summary ??? After a lumbar diskectomy, it is common to have pain in the lower back and numbness or weakness in the legs. These should improve in a short amount of time. ??? Be sure to check your incision every day for signs of infection. Change dressings and bathe as told by your health care provider. ??? Return to your normal activities as told by your health care provider and physical therapist. Avoid twisting, bending, or lifting until your health care provider approves. ??? Make sure you know which symptoms should cause you to contact your health care provider or to get help right away. This information is not intended to replace advice given to you by your health care provider. Make sure you discuss any questions you have with your health care provider. Document Revised: 08/06/2020 Document Reviewed: 08/06/2020 [employer] Patient Education ?? 2021 [employer] Laminectomy, Care After This sheet gives you information about how to care for yourself after your procedure. Your health care provider may also give you more specific instructions. If you have problems or questions, contact your health care provider. What can I expect after the procedure? After the procedure, it is common to have: ??? Some pain around your incision area. ??? Muscle tightening (spasms) across the back. Follow these instructions at home: Medicines ??? Take seyy-wud-psflzfv and prescription medicines only as told by your health care provider. ??? If you were prescribed an antibiotic medicine, use it as told by your health care provider. Do not stop using the antibiotic even if you start to feel better. ??? If you are taking blood thinners: ? Talk with your health care provider before you take any medicines that contain aspirin or NSAIDs, such as ibuprofen. These medicines increase your risk for dangerous bleeding. ? Take your medicine exactly as told, at the same time every day. ? Avoid activities that could cause injury or bruising, and follow instructions about how to prevent falls. ? Wear a medical alert bracelet or carry a card that lists what medicines you take. ??? Ask your health care provider if the medicine prescribed to you: ? Requires you to avoid driving or using heavy machinery. ? Can cause constipation. You may need to take these actions to prevent or treat constipation: ? Drink enough fluid to keep your urine pale yellow. ? Take gsae-yaz-cukdudm or prescription medicines. ? Eat foods that are high in fiber, such as beans, whole grains, and fresh fruits and vegetables. ? Limit foods that are high in fat and processed sugars, such as fried or sweet foods. ? Do not drink alcohol if you are taking prescription pain medicine. Incision care ??? Follow instructions from your health care provider about how to take care of your incision area. Make sure you: ? Wash your hands with soap and water before and after you apply medicine to the area or change your bandage (dressing). If soap and water are not available, use hand adult specialist. ? Change your dressing as told by your health care provider. ? Leave stitches (sutures), skin glue, or adhesive strips in place. These skin closures may need to stay in place for 2 weeks or longer. If adhesive strip edges start to loosen and curl up, you may trim the loose edges. Do not remove adhesive strips completely unless your health care provider tells you to do that. ??? Check your incision area every day for signs of infection. Check for: ? More redness, swelling, or pain. ? Fluid or blood. ? Warmth. ? Pus or a bad smell. Activity ??? Rest as told by your health care provider. ??? Avoid bending or twisting at your waist. Always bend at your knees. ??? Avoid sitting for a long time without moving. Get up to take short walks every 1???2 hours. This is important to improve blood flow and breathing. Ask for help if you feel weak or unsteady. ??? Do not lift anything that is heavier than 10 lb (4.5 kg) or the limit that your health care provider tells you, until he or she says that it is safe. ??? Do exercises as told by your health care provider, including breathing exercises. ??? Return to your normal activities as told by your health care provider. Ask your health care provider what activities are safe for you. General instructions ??? Do not drive for 2 weeks after your procedure or for as long as told by your health care provider. ??? Do not take baths, swim, or use a hot tub for 2 weeks, or until your incision has healed completely. Ask your health care provider if you may take showers after your dressing has been removed. You may only be allowed to take sponge baths. ??? Do not use any products that contain nicotine or tobacco, such as cigarettes, e-cigarettes, and chewing tobacco. These can delay bone healing after surgery. If you need help quitting, ask your health care provider. ??? Wear compression stockings as told by your health care provider. These stockings help to prevent blood clots and reduce swelling in your legs. ??? Keep all follow-up visits as told by your health care provider. This is important. Contact a health care provider if: ??? You have more redness, swelling, or pain around your incision area. ??? Your incision feels warm to the touch. ??? You are not able to return to activities or do exercises as told by your health care provider. Get help right away if you: ??? Have any of these signs of infection: ? Fluid or blood coming from your incision area. ? Pus or a bad smell coming from your incision area. ? Chills or a fever. ??? Feel dizzy or you faint while standing. ??? Develop a rash. ??? Develop shortness of breath or you have difficulty breathing. ??? Cannot control when you urinate or have a bowel movement. ??? Become weak. ??? Are not able to use your legs. These symptoms may represent a serious problem that is an emergency. Do not wait to see if the symptoms will go away. Get medical help right away. Call your local emergency services (911 in the [place] Do not drive yourself to the hospital. Summary ??? After the procedure, it is common to have some pain around your incision area. You may also have muscle tightening (spasms) across the back. ??? Follow instructions from your health care provider about how to care for your incision area. ??? Do not lift anything that is heavier than 10 lb (4.5 kg) or the limit that your health care provider tells you, until he or she says that it is safe. ??? Contact your health care provider if you have more redness, swelling, or pain around your incision area or if your incision feels warm to the touch. These can be signs of infection. This information is not intended to replace advice given to you by your health care provider. Make sure you discuss any questions you have with your health care provider. Document Revised: 11/12/2019 Document Reviewed: 11/12/2019 [employer] Patient Education ?? 2021 [employer]. Emergency Awareness and Preventative Care STROKE is an EMERGENCY Every Minute Counts Act FAST and Check for these signs: FACE Does the face look uneven? ARM Does one arm drift down? SPEECH Does their speech sound strange? TIME Call at any sign of stroke Stroke Risk Factors Atrial Fibrillation (irregular heartbeat) Diabetes Family history of stroke Heart Disease Heavy alcohol use High Blood Pressure High Cholesterol Physical inactivity and obesity Smoking Cigarette Smoking The facts are clear, cigarette smoking will shorten your life. Smoking can cause many illnesses along the way. As a healthcare provider, we recommend that you stop smoking. Assistance with quitting is available by contacting 7-511-VWZC-NOW. This is a free resource providing counseling, support, and referral. Or you may contact your personal physician. National Suicide Prevention Lifeline: The National Suicide Prevention Lifeline is a national network of local crisis centers that provides free and confidential emotional support to people in suicidal crisis or emotional distress 24 hours a day, 7 days a week. Don't Wait! Stop a Heart Attack Before it Starts What is a heart attack? A heart attack is damage or to a part of the heart from severely decreased or lack of blood flow to the heart. Over time, arteries can become narrow from the buildup of fat and cholesterol, which is called plaque. The plaque can rupture causing a blood clot to form. When the blood clot forms, the artery can become severely narrowed or completely blocked, causing a heart attack. Heart attack is the leading cause of in the [place]. 85% of muscle damage occurs within the first 2 hours. Delay in the recognition of heart attack symptoms increases the chances of . Know the early symptoms of a heart attack: Nausea Feeling of fullness in chest Jaw Pain Pain that travels down one or both arms Fatigue/being tired Anxiety Back Pain Chest pressure, squeezing, or discomfort Shortness of breath Sweating, or a cold sweat Feeling of impending doom There are unusual signs of a heart attack, too! Women, the elderly, and diabetics may present with atypical symptoms: Fainting/dizziness Weakness Confusion Risk Factors for a Heart Attack Some heart disease risk factors, such as age and family history, cannot be changed. Others, like smoking and lack of exercise, can be changed. Smoking High Cholesterol High Blood Pressure Family History Obesity Age Gender (Males are at higher risk) Lack of Exercise Diabetes Diet Stress Excessive Alcohol Intake If you or someone you know is experiencing the signs and symptoms of a heart attack, DON???T DELAY. Call immediately and seek help. If someone collapses, perform CPR! Do not attempt to drive if you are having symptoms of heart attack. Hands-Only CPR Why Hands-Only CPR? Hands-Only CPR has been shown to be as effective as conventional CPR for cardiac arrests that occur outside of a hospital. Survival depends on immediately receiving CPR from someone nearby. How do you perform Hands-Only CPR? There are two easy steps: Call if you see a teen or adult collapse Push hard and fast in the center of the chest at a beat of 100 beats per minute. Save a life! 4 WAYS TO GET AHEAD OF SEPSIS SEPSIS is a MEDICAL EMERGENCY. Time matters! Infections put you and your family at risk for a life-threatening condition called sepsis. Sepsis is the body's extreme response to an infection. It is life-threatening, and without timely treatment, sepsis can rapidly lead to tissue damage, organ failure, and . Sepsis happens when an infection you already have-in your skin, lungs, urinary tract or somewhere else-triggers a chain reaction throughout your body. 1 PREVENT INFECTIONS Take good care of chronic conditions. Talk to your doctor about getting the recommended vaccines. 2 PRACTICE GOOD HYGIENE Wash your hands frequently. Keep cuts or open sores clean and covered until they are healed. 3 KNOW THE SYMPTOMS Confusion or disorientation Shortness of breath High heart rate Fever, shivering, or feeling very cold Extreme pain or discomfort Clammy or sweaty skin 4 ACT FAST Get medical care IMMEDIATELY if you suspect sepsis or if you have an infection that is not getting better or is getting worse. To learn more about sepsis and how to prevent infections, visit www.cdc.gov/sepsis. Test Results Laboratory or Other Results This Visit (last charted value for your 01/01/2022 visit) No Laboratory or Other Results This Visit Patient Name:SARAH HU I have received this information and was given the opportunity to ask questions. Patient/Veneer Sawyer Name: Patient/Veneer Sawyer Signature: Relationship to Patient: Clinician/Hospital Veneer Sawyer Signature: Date: documented in this encounter Plan of Treatment Not on file documented as of this encounter Visit Diagnoses Not on filedocumented in this encounter Care Teams Automobile Bumper Straightener Relationship Specialty Start Date End Date Eladio Lomas MD [address] [facility] [address] [place] [address] Medical Oncologist Hematology and Oncology 07/08/22 Breanna Crow PA-C [address] [facility] [address] [place] [address] Physician Clinical Faculty Oncology 07/08/22 documented as of this encounter
--- OUTSIDE RECORDS SUMMARY | 2024-10-22 10:49 | XMS_ITS | Encounter Summary ---
Author Organization [facility] [employer] Address [address] [place] [address] Care Team Providers Care Computer Systems Support Specialist Name Role Phone Eladio Lomas MD Unavailable Breanna Crow PA-C Unavailable [phone] Encounter Details Date Type Department Care Team (Late st Contact Info) Description 01/01/2022 Transcribed Document [facility] [place] Family Medicine [facility] [place] [address] ProviderJailyn MD [address] [place] [address] Social History Tobacco Use Types [...] Note - Jailyn Lira MD - 01/01/2022 12:58 PM CDT [address] [address] SARAH HU :1950 Visit Time:01/01/2022 [...] for follow-up date and appointment time Activity: [place] dressing. Do not remove. May shower with [...] MD-ORT When 01/14/2022 11:00 AM EDT Where: [address] [place] [address] [address] [place] [address]- Medications What How Much When Instructions Next Dose acetaminophen-oxyCODONE (Percocet 7.5/ 325 oral tablet) 1 Tablet(s) Oral Three Times A Day as needed for for pain Pickup at [facility] acetaminophen (Tylenol 325 mg oral tablet) 2 Tablet(s) Oral Every 4 Hours as needed for Pain (Mild 1-3) ergocalciferol (ergocalciferol 50 mcg (2000 intl units) oral capsule) 1 Capsule(s) Oral Every Day Duration: 14 Day(s) multivitamin (Multiple Vitamins oral tablet) 1 Tablet(s) Oral Every Day valACYclovir (Valtrex 1 g oral tablet) 1 Tablet(s) Oral Every Day Pharmacy Information [facility]: [address] [place], [place] [id number] [phone] Take your medications faithfully. Do NOT skip [...] these instructions at home: Medicines ??? Take fsnd-bvc-tmlfhxs and prescription medicines as told by your [...] keep your urine pale yellow. ? Take hmuc-ooa-fdgxmhl or prescription medicines. ? Eat foods that [...] and water are not available, use hand clinical education manager. ? Change your dressing as told by [...] safe to drive. General instructions ??? Take pyxi-miy-nbdzjik and prescription medicines only as told by [...] provider. Document Revised: 08/06/2020 Document Reviewed: 08/06/2020 [employer] Patient Education ?? 2021 [employer] Laminectomy, Care After This sheet gives [...] these instructions at home: Medicines ??? Take iqjk-pdz-jefmekx and prescription medicines only as told by [...] keep your urine pale yellow. ? Take ezuz-miq-bfayykb or prescription medicines. ? Eat foods that [...] and water are not available, use hand clinical education manager. ? Change your dressing as told by [...] provider. Document Revised: 11/12/2019 Document Reviewed: 11/12/2019 [email or web address] Patient Education ?? 2021 [employer]. Emergency Awareness and Preventative Care STROKE is [...] Assistance with quitting is available by contacting 2-050-QDMX-NOW. This is a free resource providing counseling, [...] was given the opportunity to ask questions. Patient/Office Automation Clerk Name: Patient/Office Automation Clerk Signature: Relationship to Patient: Clinician/Hospital Office Automation Clerk Signature: Date: documented in this encounter Plan of Treatment Not on file documented as of this encounter Visit Diagnoses Not on filedocumented in this encounter Care Teams Computer Systems Support Specialist Relationship Specialty Start Date End Date Eladio Lomas MD [address] [facility] [address] [place] [address] Medical Oncologist Hematology and Oncology 07/08/22 Breanna Crow PA-C [address] [facility] [address] [place] [address] Physician Circulation Supervisor Oncology 07/08/22 documented as of this encounter
--- OUTSIDE RECORDS SUMMARY | 2024-10-22 10:49 | XMS_ITS | Encounter Summary ---
Author Organization [employer] Address [address] [place] [address] Care Team Providers Care Cigar Tobacco Rehandler Name Role Phone Eladio Lomas MD Unavailable Breanna Crow PA-C Unavailable [phone] Encounter Details Date Type Department Care Team (Late st Contact Info) Description 10/16/2021 Transcribed Document [facility] Family [place] [facility] [place] [address] ProviderJailyn MD [address] [place] [address] Social History Tobacco Use Types [...] Conversion Note - Jailyn Lira MD - 10/16/2021 10:09 AM CDT Attempt to Treat, OT Entered On: 10/16/2021 14:27 EDT Performed On: 10/16/2021 10:09 EDT by PRAVEEN SAUL OTR/Mikal Attempt to Treat Unable to Treat Due To : Patient on hold Inability to Treat Comment : 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, pt has not been on anticoagulation long enough to safely attempt OT eval PRAVEEN SAUL OTR/Mikal - 10/16/2021 14:27 EDT documented in this encounter Plan of Treatment Not on file documented as of this encounter Visit Diagnoses Not on filedocumented in this encounter Care Teams Cigar Tobacco Rehandler Relationship Specialty Start Date End Date Eladio Lomas MD [address] [facility] [address] [place] [address] Medical Oncologist Hematology and Oncology 07/08/22 Breanna Crow PA-C [address] [place], [place] [id number] Physician Nipple Maker Oncology 07/08/22 documented as of this encounter
--- OUTSIDE RECORDS SUMMARY | 2024-10-22 10:49 | XMS_ITS | Encounter Summary ---
Author Organization [facility] [employer] Address [address] [place] [address] Care Team Providers Care Metal Cut Off Saw Tender Name Role Phone Eladio Lomas MD Unavailable Breanna Crow PA-C Unavailable [phone] Encounter Details Date Type Department Care Team (Late st Contact Info) Description 01/01/2022 Transcribed Document [facility] [place] Family Medicine [facility] [place] [address] ProviderJailyn MD [address] [place] [address] Social History Tobacco Use Types [...] 01/01/2022 11:05 AM CDT [facility] Main OR PostOp Summary Primary Physician: GARCIA WORKMAN MD-ORT Finalized Date/Time: 01/01/22 13:28:39 Pt. Name: SARAH HU /Sex: 1950 Male Med Rec #: [id number] Physician: GARCIA WORKMAN MD-ORT Financial #: [id number] Pt. Type: O Room/Bed: [facility]/ Admit/Disch: 01/01/22 09:26:00 - Institution: [facility] PostOp Case Times Entry 1 In PACU II 01/01/22 12:41:00 Ready for PACU II 01/01/22 13:10:00 Discharge Discharge from PACU 01/01/22 13:20:00 II Last Modified By: DAYANA BALLARD, RN 01/01/22 13:28:32 [facility] Main OR PostOp Case Times Audit 01/01/22 13:28:32 Machine Hoop Maker Helper: LIZETH Modifier: ELIOJM <+> 1 Ready for PACU II Discharge <+> 1 Discharge from PACU II Finalized By: DAYANA BALLARD, RN Document Signatures Signed By: DAYANA BALLARD, SHARYN 01/01/22 13:28 documented in this encounter Plan of Treatment Not on file documented as of this encounter Visit Diagnoses Not on filedocumented in this encounter Care Teams Metal Cut Off Saw Tender Relationship Specialty Start Date End Date Eladio Lomas MD [address] [address] Medical Oncologist Hematology and Oncology 07/08/22 Breanna Crow, PA-C [address] [facility] [address] [place] [address] Physician Reshipping Clerk Oncology 07/08/22 documented as of this encounter
--- OUTSIDE RECORDS SUMMARY | 2024-10-22 10:49 | XMS_ITS | Encounter Summary ---
Author Organization [employer] Address [address] [place] [address] Care Team Providers Care Digital Forensics Investigator Name Role Phone Eladio Lomas MD Unavailable Breanna Crow PA-C Unavailable [phone] Encounter Details Date Type Department Care Team (Late st Contact Info) Description 01/01/2022 Transcribed Document [facility] [place] Family Medicine [facility] [place] [address] ProviderJailyn MD [address] [place], [place] [id number] Social History Tobacco Use Types Packs/Day Years Used Date Smoking Tobacco: Never Assessed Sex and Gender Information Value Date Recorded Sex Assigned at Male 10/27/2021 8:22 PM CDT Legal Sex Male 8:22 PM CDT Gender Identity Male 10/27/2021 8:22 PM CDT Sexual Orientation Not on file documented as of this encounter Miscellaneous Notes * Cerner Conversion Note - Jailyn Lira MD - 01/01/2022 11:46 AM CDT Patient: SARAH HU Age: 71 years Sex: Male : 1950 Associated Diagnoses: None Author: GARCIA WORKMAN MD-ORT Operative Report DATE OF PROCEDURE: January 02, 2022 PREOPERATIVE DIAGNOSIS(ES): Spinal stenosis, lumbar disk degeneration, spondylosis, L4-L5. Lateral recess stenosis foraminal stenosis POSTOPERATIVE DIAGNOSIS(ES): Spinal stenosis, lumbar disk degeneration, spondylosis, L4-L5. Lateral recess stenosis foraminal stenosis PROCEDURE: Lumbar laminectomy, right side crossing over to the left side,decompression cauda equina and neural ellements foramenotmy , neural lysis, facetectomy, L4-5 SURGEON: Garcia Workman MD. AGRICULTURAL SALES REPRESENTATIVE: Roberto Plata ANESTHESIA: General. ESTIMATED BLOOD LOSS: Less than 10 mL. COMPLICATIONS: None. FLUOROSCOPY TIME: 31 seconds FINDINGS: Severe stenosis at L4-L5. Scarring of the ligamentum flavum, onto the surface of the dura. Severe stenosis, disc degeneration facet joint spondylosis. Lateral recess stenosis foraminal stenosis SURGICAL INDICATORS: This patient is having severe pain down the right lower extremity. Foot drop greater than 3 months. Lateral recess stenosis 9 numbness dorsum of the right foot Surgery has been recommended earlier, that he could not have this done he had the chickenpox, and his skin rash with crusting pustules on his back. Is now that they have cleared up, surgery now would be appropriate to minimize the surgical risk. Of infection. distribution of symptoms, lower back pain, on the right side, with lateral thigh and calf pain into the foot, associated numbness and weakness. Symptoms on right .. Epidural cortisone injection used to help, symptoms are no longer managed nonsurgically. Back pain and leg pain numbness and weakness right lower extremity. Imaging studies, severe stenosis, L4-5. Secondary to bony stenosis, ligamentous hypertrophy, hard disc protrusion. Lateral recess stenosis. RECOMMENDATION: Patient certainly can tell me he cannot live with the symptoms and he would like to like to have the foot drop recover if possible. to have this fixed. I think patient is going to require is a lumbar laminectomy at the L4-L5 level, most specifically on the right side crossing across the midline and going into the neural foramina and identification of the nerve root, and fully decompressing the nerve root. reach over to the contralateral left left side, at the midline only. Identification of the L5 nerve root, and decompression of the nerve root. This will extend from above the L4-5 disc level to just below the L4-5 disc level. This will involve laminectomy for laminectomy 5, ligamentous flavum excision, lateral recess decompression, and part of the facet joint resection to decompress the nerve root. This was again reviewed with patient today and consent was obtained. P QRS Antibiotics will be administered within 1 hour of surgery. DVT prophylaxis. under will be used in the bladder Antibiotics discontinued within 24 hours of surgery Risk minimization Patient is medically stable. Antibiotics DVT prophylaxis with mechanical devices Meticulous hemostasis Loupe magnification Careful protection of the neural structures. Sterile technique Comorbidities Sleep disordered Chronic lymphocytic leukemia Previous thrombosis Mitral valve disorder stable. DESCRIPTION OF PROCEDURE: Laminectomy was performed, foraminotomy, lateral recess decompression. Right side. I was able to identify the L5 nerve root, follow the nerve root from above the disc, over the disc and then passed the disc into the neural foramina, making sure the nerve was fully be removed that there was no further pressure on the nerve root. The patient was brought into the operating room. General anesthesia was administered. DVT protocol. Patient placed prone on the OR table. Pressure areas carefully padded. Then very carefully, identification of the L4-L5 level with fluoroscopic control. Washed, prepped, sterile draping. Time-out. Again antibiotics checked, were administered. 4.2 magnification. X-ray was brought into the room marking on the L4-5 level. Midline incision extending from the mid portion of L4 spinous process to the midline of L5 spinous process. Very carefully dissecting through skin and subcutaneous tissues. Meticulous hemostasis. Very carefully, identifying spinous process 4 and spinous process 5, confirming with x-ray, dissecting down the spinous process 4, spinous process 5, down to lamina 4 and lamina 5 and the facet joint. X-ray confirmation of the correct level. Then with a very high-speed bur, very carefully, removing the inferior portion, crossing the midline of the lamina of L4, carrying this laterally to the medial margin of the facet joint, in a cephalad direction.Then doing the same on the superior remaining portion of L5. X-ray confirmation making certain that we were above the disk, and down below the disk. Decompression from above the disc, to below the disc, get x-ray confirmation. Carefully using the angled curettes, working underneath the lamina to separate the lamina off from the protective ligamentum flavum. Confirming that this was nicely removed. Then, very carefully removed the ligamentum flavum, laterally that was remaining. With careful undermining of the lamina above and below with the angled curettes, this allowed for identification of the ligamentum flavum, and the margins. Carefully take this in a cephalad direction and in a caudal direction, to identify the normal dura. The normal dura then carefully protected, carefully removing the ligamentum flavum, from the overlying dura. This then was carried laterally. Identified the disc, to identify the L5 nerve root crossing over the L4-5 disc. With the nerve root and carefully protected, using the Kerrison punches, the ankle curettes, and carefully decorticating the nerve root of bone, from directly above the disc, across the disc, and then underneath the facet joint, towards the lateral recess. This allowed me to decompress the dura, from just above the disk, and from below the disk, and then carrying this laterally.Carefully decompressing exiting root L4 and traversing roots L5. Confirmation with x-ray. Very carefully retracting the dura in a medial direction, at the disc level, to make certain that there is no further nerve root compression underneath the nerve root. They concerned that the nerve root was well decompressed with the laminectomy, foraminotomy, mesial facetectomy.. X-ray confirmation that this was decompressed, from below the disc and above the disc. The dura was carefully evaluated, there is no CSF leakage or dural injury. Meticulous hemostasis. Closure of the deep fascia with #1 Vicryl, subcutaneous fascia with 2-0 Vicryl, skin with jackie. Antibiotic dressing. Patient transferred to recovery room stretcher and then to recovery room. The patient will remain in hospital until medically stable, ambulatory, and pain is controlled. When safe, the patient may be discharged home Sincerely-Dr. Garcia Workman M.D. January 01, 2022 documented in this encounter Plan of Treatment Not on file documented as of this encounter Visit Diagnoses Not on filedocumented in this encounter Care Teams Digital Forensics Investigator Relationship Specialty Start Date End Date Eladio Lomas MD [address] [facility] [place] [address] Medical Oncologist Hematology and Oncology 07/08/22 Breanna Crow PA-C [address] [facility] [address] [place] [address] Physician Pilot Captain Oncology 07/08/22 documented as of this encounter
--- OUTSIDE RECORDS SUMMARY | 2024-10-22 10:49 | XMS_ITS | Encounter Summary ---
Author Organization [employer] Address [address] [place] [address] Care Team Providers Care Manager File Name Role Phone Eladio Lomas MD Unavailable Breanna Crow PA-C Unavailable [phone] Encounter Details Date Type Department Care Team (Late st Contact Info) Description 10/16/2021 Transcribed Document [facility] Family Medicine [facility] [place] [address] ProviderJailyn MD [address] [place] [address] Social History Tobacco Use Types Packs/Day Years Used Date Smoking Tobacco: Never Assessed Sex and Gender Information Value Date Recorded Sex Assigned at Male 10/27/2021 8:22 PM CDT Legal Sex Male 8:22 PM CDT Gender Identity Male 10/27/2021 8:22 PM CDT Sexual Orientation Not on file documented as of this encounter Miscellaneous Notes * Cerner Conversion Note - Jailyn ProviderMD - 10/16/2021 5:00 PM CDT Chart Check - Review Order Profile Entered On: 10/16/2021 18:44 EDT Performed On: 10/16/2021 17:00 EDT by Celina Marley Non Emp RN Chart Check Powerplans Initiated/Discontinued as Appropriate : Yes All Active Orders Reviewed : Yes Celina Marley Non Emp RN - 10/16/2021 18:44 EDT documented in this encounter Plan of Treatment Not on file documented as of this encounter Visit Diagnoses Not on filedocumented in this encounter Care Teams Manager File Relationship Specialty Start Date End Date Eladio Lomas MD [address] [facility] [address] [place] [address] Medical Oncologist Hematology and Oncology 07/08/22 Breanna Crow PA-C [address] [id number] Physician Truck Sales Manager Oncology 07/08/22 documented as of this encounter
--- OUTSIDE RECORDS SUMMARY | 2024-10-22 10:49 | XMS_ITS | Encounter Summary ---
Author Organization [employer] [facility] [employer] Address [address] [facility] [address] Care Team Providers Care Lastex Thread Winder Name Role Phone Eladio Lomas MD Unavailable Breanna Crow PA-C Unavailable [phone] Encounter Details Date Type Department Care Team (Late st Contact Info) Description 10/16/2021 Transcribed Document [facility] Neurology - [facility] [address] [place] [address] Diane Dias MD [address] [place], [place] [id number] Social History Tobacco Use Types Packs/Day Years Used Date Smoking Tobacco: Never Assessed Sex and Gender Information Value Date Recorded Sex Assigned at Male 10/27/2021 8:22 PM CDT Legal Sex Male 8:22 PM CDT Gender Identity Male 10/27/2021 8:22 PM CDT Sexual Orientation Not on file documented as of this encounter Miscellaneous Notes * Cerner Conversion Note - Diane Dias MD - 10/16/2021 8:39 AM EDT Patient: SARAH HU Age: 71 years Sex: Male : 1950 Associated Diagnoses: None Author: DIANE DIAS MD-SERENE Subjective CC: Right leg weakness This is a 71-year-old male who suffered varicella infection 3 weeks ago. In the last week he has developed right leg weakness. He was working outside the home, climbing under the house when this did occur. It started with pain, the numbness and weakness in the right leg. He has not attempted to ambulate. Physical therapy did not get to work with him yesterday due to testing and he was found to have blood clot in the legs. He denies any new symptoms this morning. I did an MRI of the lumbar spine with and without contrast yesterday which did show a diffuse bulge worse to the right neuroforamina at L4-5. Orthopedics was consulted and they do want to get a CT of the thoracic spine. I do feel his history, exam correlates with the MRI of the lumbar spine findings. I see no evidence of a meningeal encephalitis or [place]?? secondary to his varicella and I do not feel that the right leg weakness is related at this time. I did start him on IV Solu-Medrol 250 mg yesterday for lumbar spine inflammation that could be causing his leg weakness. Health Status Allergies: Allergic Reactions (Selected) Severity Not Documented Contrast media (iodine-based)- No reactions were documented. Shrimp- No reactions were documented., Allergies (2) Active Reaction contrast media (iodine-based) None Documented Shrimp None Documented Current medications: (Selected) Inpatient Medications Ordered Benadryl: 25 mg, Oral, 1-Time Dulcolax Laxative: 5 mg, Oral, Daily, PRN: Constipation DuoNeb 0.5 mg-2.5 mg/3 mL inhalation solution: 3 mL, Nebulized Inhalation, RT_Q6H, PRN: Shortness of Breath Lovenox: 40 mg, SubCutaneous, [id number] MiraLax: 17 Gram, Oral, Daily, PRN: Constipation Pepcid: 20 mg, Oral, Q12H Roxicodone: 5 mg, Oral, Q4H, PRN: Pain (Moderate 4-6) SOLU-Medrol + Sodium Chloride 0.9% intravenous solution 50 mL: 250 mg, 4 mL, 50 mL/Hr, IV Piggyback, Daily Tylenol: 650 mg, Oral, Q4H, PRN: Fever Tylenol: 650 mg, Oral, Q4H, PRN: Pain (Mild 1-3) Zofran: 4 mg, IV Push, Q4H, PRN: Nausea acetaminophen-HYDROcodone 325 mg-5 mg oral tablet: 1 Tab, Oral, Q4H, PRN: Pain (Mild 1-3) heparin injection 25,000 Units + NaCl 0.45% Premix Diluent 250 mL: Titrate, IntraVENous hydrALAZINE: 20 mg, IV Push, Q6H, PRN: Hypertension labetalol: 10 mg, IV Push, Q1H, PRN: Hypertension melatonin: 3 mg, Oral, At Bedtime, PRN: Insomnia morphine: 2 mg, IV Push, Q2H, PRN: Pain (Severe 7-10) potassium chloride 10 mEq oral tablet, extended release: 20 mEq, 2 Tab, Oral, BID Prescriptions Prescribed lactobacillus acidophilus oral capsule: 1 Cap, Oral, BID, for 7 Day(s), 14 Cap, 0 Refill(s) Documented Medications Documented Tylenol 325 mg oral tablet: 2 Tab, Oral, Q4H, PRN: Pain (Mild 1-3), 0 Refill(s) allopurinol 300 mg oral tablet: 1 Tab, Oral, Daily, 0 Refill(s) multivitamin: See Instructions, 1 Oral Daily, 0 Refill(s), Home Medications (4) Active allopurinol 300 mg oral tablet 300 mg = 1 Tab, Oral, Daily lactobacillus acidophilus oral capsule 1 Cap, Oral, BID multivitamin See Instructions Tylenol 325 mg oral tablet 650 mg = 2 Tab, PRN, Oral, Q4H , Medications (18) Active Scheduled: (5) diphenhydrAMINE 25 mg tab 25 mg 1 Tab, Oral, 1-Time enoxaparin 40 mg/0.4 mL inj 40 mg 0.4 mL, SubCutaneous, [id number] famotidine 20 mg tab 20 mg 1 Tab, Oral, Q12H methylPREDNISolone succinate + NaCl 0.9% 50 mL 250 mg 4 mL, IV Piggyback, Daily potassium chloride CR 10 mEq tab 20 mEq 2 Tab, Oral, BID Continuous: (1) heparin/NaCl 0.45% 25,000 Units + Premix Diluent NaCl 0.45% 250 mL 250 mL, IntraVENous PRN: (12) acetaminophen 325 mg tab 650 mg 2 Tab, Oral, Q4H acetaminophen 325 mg tab 650 mg 2 Tab, Oral, Q4H acetaminophen/HYDROcodone 325/5 mg tab 1 Tab, Oral, Q4H albuterol-ipratropium inh 3 mL 3 mL, Nebulized Inhalation, RT_Q6H bisacodyl EC 5 mg tab 5 mg 1 Tab, Oral, Daily hydrALAZINE 20 mg/1 mL inj 20 mg 1 mL, IV Push, Q6H labetalol 100 mg/20 mL inj 10 mg 2 mL, IV Push, Q1H melatonin 3 mg tab 3 mg 1 Tab, Oral, At Bedtime morphine 2 mg/1 ml inj 2 mg 1 mL, IV Push, Q2H ondansetron 4 mg/2 mL inj 4 mg 2 mL, IV Push, Q4H oxyCODONE 5 mg tab 5 mg 1 Tab, Oral, Q4H polyethylene glycol 3350 pwd 17 g pkt 17 Gram 1 Packet, Oral, Daily Problem list: Medical At risk for sleep apnea / IMO [id number] / Confirmed, Active Problems (2) At risk for sleep apnea Mitral valve prolapse Objective VS/Measurements Vitals Signs (last 24 hrs) Last Charted Minimum Maximum Temp 97.4 (OCT 16 06:00) 97.4 (OCT 16 06:00) 98.2 (OCT 15 09:20) Mon HR 85 (OCT 16 06:00) 71 (OCT 15 15:42) 85 (OCT 16 06:00) Resp Rate 16 (OCT 16 06:00) 16 (OCT 15 09:20) 18 (OCT 15 13:00) SBP H 165 (OCT 16 06:00) 136 (OCT 15 09:20) H 178 (OCT 15 22:02) DBP 66 (OCT 16 06:00) 61 (OCT 15 15:42) 76 (OCT 15 09:20) MAP 91 (OCT 16 06:00) 86 (OCT 15 09:20) 95 (OCT 15 17:56) SpO2 L 92 (OCT 16 06:00) L 92 (OCT 16 06:00) 99 (OCT 15 17:56) General: Alert and oriented, Mild distress. Eye: Pupils are equal, round and reactive to light, Extraocular movements are intact. HENT: Normocephalic, Normal hearing. Neck: Supple, Non-tender, No carotid bruit. Respiratory: Lungs are clear to auscultation, Respirations are non-labored, Breath sounds are equal. Cardiovascular: Normal rate, Regular rhythm. Musculoskeletal: Weakness in the right leg in an L5 distribution. Decreased sensation in S1 distribution. Right leg has hypotone, hyporeflexia and fasciculations all consistent with a lower motor neuron process.. Integumentary: Warm, Dry, [place]. Neurologic: Alert, Oriented, Cranial Nerves II-XII are grossly intact, Decreased sensation in an S1 distribution of the right leg. Decreased reflexes in right leg.. Psychiatric: Cooperative, Appropriate mood & affect. Results Review REPORT MRI LUMBAR SPINE WITH AND WITHOUT CONTRAST HISTORY: Acute left leg weakness. PROCEDURE: Pre and post gadolinium-enhanced multiplanar MR imaging of the lumbar spine was performed in multiple MR sequences. FINDINGS: The cord terminates appropriately. Disc signal is diminished throughout the lumbar spine. The disc heights are maintained. There is no subluxation or fracture. Postcontrast images demonstrate no abnormal enhancement. L1-2: There is facet hypertrophy and a broad-based disc bulge. There is mild bilateral neural foraminal stenosis. There is a small central protrusion resulting in mild central stenosis. L2-3: There is facet hypertrophy and a broad-based disc bulge. There is mild central canal and bilateral neural foraminal stenosis. L3-4: There is facet hypertrophy and a broad-based disc bulge. There is mild central canal stenosis. There is moderate bilateral neural foraminal stenosis. L4-5: There is facet hypertrophy and a broad-based disc bulge. There is ligamentum flavum hypertrophy. There is moderate central canal stenosis. There is mild left and moderate right neural foraminal stenosis. L5-S1: There is facet hypertrophy and a broad-based disc bulge. There is ligamentum flavum hypertrophy. There is mild central canal stenosis. There is moderate bilateral neural foraminal stenosis. IMPRESSION: Degenerative disc disease as above. Impression and Plan Patient has right leg weakness for the last week. His exam is consistent with a lumbar radiculopathy with decreased knee reflex and ankle reflex, low tone, weakness in an L5 distribution. MRI of the lumbar spine does show a broad disc bulge that is worse to the right side at the L4-5 level. I do not feel this is related to his varicella but most likely occurred due to him working outside, climbing under his house and moving his pool supplies. Ortho does not see any reason to do surgery at this time. He needs to see physical therapy and Occupational Therapy today to see his rehab needs. He may need inpatient rehab. He needs an AFO splint made for the right leg. I will continue him on Solu-Medrol to 50 mg twice a day while in the hospital. We can transition to a prednisone taper once he is discharged. If his right leg does not improve with time, he may need to see neurosurgery or pain management for further treatment options. documented in this encounter Plan of Treatment Not on file documented as of this encounter Visit Diagnoses Not on filedocumented in this encounter Care Teams Lastex Thread Winder Relationship Specialty Start Date End Date Eladio Lomas MD [address] [facility] [address], [place] [id number] Medical Oncologist Hematology and Oncology 07/08/22 Breanna Crow PA-C [address] [facility] [address] [place] [address] Physician Instrument/Control Technician Oncology 07/08/22 documented as of this encounter
--- OUTSIDE RECORDS SUMMARY | 2024-10-22 10:49 | XMS_ITS | Encounter Summary ---
Author Organization [facility] [employer] In [employer] Address [address] [place] [address] Care Team Providers Care Offline Cutter Name Role Phone Eladio Lomas MD Unavailable Breanna Crow PA-C Unavailable [phone] Encounter Details Date Type Department Care Team (Late st Contact Info) Description 10/26/2021 Transcribed Document [facility] [place] [address] ProviderJailyn MD [address] [place] [address] Social History Tobacco Use Types [...] Conversion Note - Jailyn Lira MD - 10/26/2021 3:12 PM CDT CLINICAL DOCUMENTATION CLARIFICATION FORM: Dear : CANDIDA GUO Date / Time: 10/27/2021 00:42 Please exercise your independent, professional judgment in responding to the clarification form. Clinical indicators are provided on the bottom of this form for your review Please check appropriate box(es) to clarify if the following diagnosis has been ruled in our ruled out: Myelitis (CDI/Coding list diagnosis here) [ ] Ruled in diagnosis [ ] Continue to treat [ ] Resolved [x ] Ruled out diagnosis [ ] Improving [ ] Cannot rule out diagnosis [ ] Other diagnosis [ ] Unable to determine Physician Signature: Date/Time: For continuity of documentation, please document condition throughout progress notes and discharge summary. Thank You. To be completed by CDI/Coding staff for physician review: Present Clinical Indicators - Signs / Symptoms / Labs Results and Location in Medical Record [ X ] Myelitis Documented in Consult note on 10/15/2021 GARCIA Rizvi [ X ] Right lower extremity weakness Documented in H and P on 10/15/2021 by CANDIDA Hinds [ X ] Numbness Documented in H and P on 10/15/2021 by CANDIDA Hinds [ X ] Sciatica Documented in Discharge Summary on 10/18/2021 by Wilberto Brantley [ X ] Weakness Documented in Consult note on 10/15/2021 by ROMERO Saleh [ X ] Fatigue Documented in Consult note on 10/15/2021 by ROMERO Saleh [ X ] Decreased activity Documented in Consult note on 10/15/2021 by ROMERO Saleh Present Risk Factors Results and Location in Medical Record [ X ] DVT Documented in Discharge Summary on 10/18/2021 by Wilberto Brantley [ X ] Age - 71 Documented in H and P on 10/15/2021 by CANDIDA Hinds [ X ] Abnormal Balance Documented in Consult note on 10/15/2021 by ROMERO Saleh Present Treatments Results and Location in Medical Record [ X ] CT Spine Documented in Consult note on 10/15/2021 by ROMERO Saleh [ X ] MRI Spine Documented in Consult note on 10/15/2021 by ROMERO Saleh [ X ] Heparin drip to Eliquis Documented in Discharge Summary on 10/18/2021 by Wilberto Brantley CDS/Snowboard Instructor Signature: Gui Barnhartjimena Phone #: Date/Time: 10/27/2021 00:42 This is a permanent part of the Medical Record Q55 2020 [facility] Reviewed: 07/2020 Q55 2020 [facility] Reviewed: 07/2020 documented in this encounter Plan of Treatment Not on file documented as of this encounter Visit Diagnoses Not on filedocumented in this encounter Care Teams Offline Cutter Relationship Specialty Start Date End Date Elaido Lomas MD [address] [facility] [address] [place] [address] Medical Oncologist Hematology and Oncology 07/08/22 Breanna Crow, PACecilia [address] [place] [address] Physician Assistant City Attorney Oncology 07/08/22 documented as of this encounter
--- OUTSIDE RECORDS SUMMARY | 2024-10-22 10:49 | XMS_ITS | Encounter Summary ---
Author Organization [email or web address] In [employer] Address [address] [place] [address] Care Team Providers Care Damage Appraiser Name Role Phone Eladio Lomas MD Unavailable Breanna Crow PA-C Unavailable [phone] Encounter Details Date Type Department Care Team (Late st Contact Info) Description 10/15/2021 Transcribed Document [facility] [place] [address] ProviderJailyn MD [address] [place], [place] [id number] Social History Tobacco Use Types Packs/Day Years Used Date Smoking Tobacco: Never Assessed Sex and Gender Information Value Date Recorded Sex Assigned at Male 10/27/2021 8:22 PM CDT Legal Sex Male 8:22 PM CDT Gender Identity Male 10/27/2021 8:22 PM CDT Sexual Orientation Not on file documented as of this encounter Miscellaneous Notes * Cerner Conversion Note - Jailyn Lira MD - 10/15/2021 9:30 AM CDT UM Authorization Entered On: 10/15/2021 9:31 EDT Performed On: 10/15/2021 9:30 EDT by Natalie Lauren Rn-Utilization Review Primary Insurance Authorization Authorization and Policy Numbers : Insurance 1 Health Plan: [employer] PPO Policy Number: [id number] Authorization Number: Insurance Primary Name : [employer] PPO [id number] Authorization Status-Primary : Awaiting callback Reference Number-Primary : [id number] Authorized Service Begin Date-Primary : 10/15/2021 EDT Authorization Comments-Primary : Clinicals faxed via [facility] Historical Authorization Comments-Primary : Comment 1: [employer] PPO auth pending per Star note. (JUANITA HUGO, RN-Utilization Review 10/15/2021 09:18) Natalie Lauren, Rn-Utilization Review - 10/15/2021 9:30 EDT Electronically signed by [facility] Conversion Refrigeration Brazer/Solderer Cerner at 08/17/2022 5:57 PM CDT documented in this encounter Plan of Treatment Not on file documented as of this encounter Visit Diagnoses Not on filedocumented in this encounter Care Teams Damage Appraiser Relationship Specialty Start Date End Date Eladio Lomas MD [address] [facility] [address] [place] [address] Medical Oncologist Hematology and Oncology 07/08/22 Breanna Crow PA-C [address] [address] Physician Informatica Oncology 07/08/22 documented as of this encounter
--- OUTSIDE RECORDS SUMMARY | 2024-10-22 10:49 | XMS_ITS | Encounter Summary ---
Author Organization [facility] [employer] In [employer] Address [address] [facility] [place] [address] Care Team Providers Care Office Director Name Role Phone Eladio Lomas MD Unavailable Breanna Crow PA-C Unavailable [phone] Encounter Details Date Type Department Care Team (Late st Contact Info) Description 10/15/2021 Transcribed Document [facility] [place] [facility] [place] [address] ProviderJailyn MD [address] [place], [place] [address] Social History Tobacco Use Types Packs/Day Years Used Date Smoking Tobacco: Never Assessed Sex and Gender Information Value Date Recorded Sex Assigned at Male 10/27/2021 8:22 PM CDT Legal Sex Male 8:22 PM CDT Gender Identity Male 10/27/2021 8:22 PM CDT Sexual Orientation Not on file documented as of this encounter Miscellaneous Notes * Cerner Conversion Note - Jailyn Lira MD - 10/15/2021 9:18 AM CDT UM Authorization Entered On: 10/15/2021 9:19 EDT Performed On: 10/15/2021 9:18 EDT by JUANITA HUGO RN-Utilization Review Primary Insurance Authorization Authorization and Policy Numbers : Insurance 1 Health Plan: [employer] PPO Policy Number: [id number] Authorization Number: Insurance Primary Name : [employer] PPO [id number] Authorization Status-Primary : Pending Reference Number-Primary : [id number] Authorized Service Begin Date-Primary : 10/15/2021 EDT Authorization Comments-Primary : [employer] PPO auth pending per Star note. Historical Authorization Comments-Primary : No Authorization Comments Found JUANITA HUGO RN-Utilization Review - 10/15/2021 9:18 EDT documented in this encounter Plan of Treatment Not on file documented as of this encounter Visit Diagnoses Not on filedocumented in this encounter Care Teams Office Director Relationship Specialty Start Date End Date Eladio Lomas MD [address] [facility] [address] [address] Medical Oncologist Hematology and Oncology 07/08/22 Breanna Crow, PA-C [address] [place] [address] Physician Life Skills Worker Oncology 07/08/22 documented as of this encounter
--- OUTSIDE RECORDS SUMMARY | 2024-10-22 10:49 | XMS_ITS | Encounter Summary ---
Author Organization [facility] [employer] In [employer] Address [address] [place] [address] Care Team Providers Care Hematology Oncology Consultant Name Role Phone Eladio Lomas MD Unavailable Breanna Crow PA-C Unavailable [phone] Encounter Details Date Type Department Care Team (Late st Contact Info) Description 10/20/2021 Transcribed Document [facility] [place] [address] ProviderJailyn MD [address] [place], [place] [id number] Social History Tobacco Use Types Packs/Day Years Used Date Smoking Tobacco: Never Assessed Sex and Gender Information Value Date Recorded Sex Assigned at Male 10/27/2021 8:22 PM CDT Legal Sex Male 8:22 PM CDT Gender Identity Male 10/27/2021 8:22 PM CDT Sexual Orientation Not on file documented as of this encounter Miscellaneous Notes * Cerner Conversion Note - Jailyn Lira MD - 10/20/2021 1:43 PM CDT UM Authorization Entered On: 10/20/2021 13:43 EDT Performed On: 10/20/2021 13:43 EDT by DIETER MAR RN Primary Insurance Authorization Authorization and Policy Numbers : Insurance 1 Health Plan: [employer] PPO Policy Number: [id number] Authorization Number: Insurance Primary Name : [employer] PPO [id number] Authorization Status-Primary : Denied Reference Number-Primary : [id number] Authorized Service Begin Date-Primary : 10/15/2021 EDT Authorization Comments-Primary : Emailed denial to [facility] Historical Authorization Comments-Primary : Comment 1: Rec faxed Denial from [employer] 10/19/21 Placed in tray on JJs desk (KEI JEAN-BAPTISTE, Health Technician Hearing 10/19/2021 13:08) Comment 2: [employer] PPO auth still pending per [employer]ity (JUANITA HUGO, RN-Utilization Review 10/19/2021 11:01) Comment 3: Clinicals faxed via [employer] (Natalie Lauren, Rn-Utilization Review 10/15/2021 09:30) Comment 4: [employer] PPO auth pending per Star note. (JUANITA HUGO, RN-Utilization Review 10/15/2021 09:18) DIETER MAR RN - 10/20/2021 13:43 EDT Electronically signed by [facility] Conversion Educational Administration Teacher Cerner at 08/17/2022 6:13 PM CDT documented in this encounter Plan of Treatment Not on file documented as of this encounter Visit Diagnoses Not on filedocumented in this encounter Care Teams Hematology Oncology Consultant Relationship Specialty Start Date End Date Eladio Lomas MD [address] [facility] [address] [place] [address] Medical Oncologist Hematology and Oncology 07/08/22 Breanna Crow, PA-C [address] [facility] [address] [place] [address] Physician Manager Collection Oncology 07/08/22 documented as of this encounter
--- OUTSIDE RECORDS SUMMARY | 2024-10-22 10:49 | XMS_ITS | Encounter Summary ---
Author Organization [facility] [employer] In i[employer] Address [address] [place] [address] Care Team Providers Care Electron Beam Welding Machine Operator Name Role Phone Eladio Lomas MD Unavailable Breanna Crow PA-C Unavailable [phone] Encounter Details Date Type Department Care Team (Late st Contact Info) Description 12/29/2021 Transcribed Document [facility] [place] [facility] [place] [address] ProviderJailyn MD [address], [place] [id number] Social History Tobacco Use Types Packs/Day Years Used Date Smoking Tobacco: Never Assessed Sex and Gender Information Value Date Recorded Sex Assigned at Male 10/27/2021 8:22 PM CDT Legal Sex Male 8:22 PM CDT Gender Identity Male 10/27/2021 8:22 PM CDT Sexual Orientation Not on file documented as of this encounter Miscellaneous Notes * Cerner Conversion Note - Jailyn Lira MD - 12/29/2021 10:51 AM CDT PAT Adult Entered On: 12/29/2021 10:55 EDT Performed On: 12/29/2021 10:51 EDT by JOSELINE MIRAMONTES RN Vital Measurements Temperature Source : Temporal artery scanning Temperature Mode : Fahrenheit Temperature, Fahrenheit : 98.3 Deg F Clinical Temperature, C : 36.8 Deg C Peripheral Pulse Rate : 87 bpm Respiratory Rate : 16 Breaths/Min Systolic Blood Pressure : 151 mmHg (HI) Diastolic Blood Pressure : 68 mmHg Oxygen Saturation : 97 % Oxygen Therapy Mode : Room air JOSELINE MIRAMONTES RN - 12/29/2021 10:51 EDT Pain Assessment Pain Assessment : Initial assessment Pain Scale Used : 0-[address] RN - 01/01/2022 10:40 EDT Height and Weight, Clinical Dosing Height Source : Stated Height Entry Format : [place] Height, Feet : 5 ft(Converted to: 152 cm, 60 Inch) Height, Inches : 6 Inch(Converted to: 0 ft 6 Inch, 15.24 cm) Clinical Height : 167.64 cm Weight Source : Standing scale Weight Entry Format : [place] Clinical Dosing Weight : 72.73 kg Weight, Pounds : 160 lb Body Surface Area (BSA) : 1.82 m2 Body Mass Index : 25.9 kg/m2 (HI) [place] Body Weight : 63 kg JOSELINE MIRAMONTES RN - 12/29/2021 10:51 EDT Health Histories Smoking Status : Former smoker, quit more than 30 days ago Smokeless Tobacco Status : Never JOSELINE MIRAMONTES RN - 12/29/2021 10:51 EDT Social History (As Of: 12/29/2021 10:55:56 EDT) Tobacco: Former smoker, quit more than 30 days ago Smoking Status. Years of Use: 8. Packs/Tins Daily: 0.5. Last Used: quit at age 26. (Last Updated: 10/15/2021 05:34:35 EDT by CANDIDA GUO DO-AVA) Former smoker, quit more than 30 days ago Smoking Status. Comments: 12/29/2021 10:50 - JOSELINE MIRAMONTES RN: quit at age 26 (Last Updated: 12/29/2021 10:50:52 EDT by JOSELINE MIRAMONTES RN) Alcohol: Alcohol Use History No. (Last Updated: 10/15/2021 05:34:35 EDT by CANDIDA GUO DO-INT) Alcohol Use History No. (Last Updated: 12/29/2021 10:50:52 EDT by JOSELINE MIRAMONTES RN) Substance Abuse: Drug Use Hx: No. (Last Updated: 10/15/2021 05:34:35 EDT by CANDIDA GUO DO-INT) Drug Use Hx: No. (Last Updated: 12/29/2021 10:50:52 EDT by JOSELINE MIRAMONTES RN) Infectious Disease History Does patient have symptoms of COVID-19? : No Tested for COVID19 in the past 14 days : No, Patient stated Does the Patient state known exposure to a COVID-19 positive case in the last 14 days? : No Patient Vaccinated for COVID-19 : Fully vaccinated JOSELINE MIRAMONTES RN - 12/29/2021 10:51 EDT Infectious Disease Risk Screening Grid Cough < 2 wks of unknown origin : NO Cough > 2 weeks : NO Blood in Sputum : NO Fever or self-reported Fever : NO Rash of unknown origin : NO Headache : NO Stiff neck : NO Night Sweats : NO Unexplained Weight Loss : NO Diarrhea (3 episode per day) : NO JOSELINE MIRAMONTES RN - 12/29/2021 10:51 EDT Patient Masked? : Yes Physical contact outside [place] in the last 30 days : No Hospitalized in Foreign Country : No Infectious Disease History : Chicken pox/Shingles, Measles INF Disease TB Screening Calc : 0 INF Disease Recent Travel Calc : 0 JOSELINE MIRAMONTES RN - 12/29/2021 10:51 EDT COVID19 PreProcedure Screening Is this an Emergent or Add on Procedure? : No Date PreProcedure COVID-19 test known? : No Has patient been isolated since the test : N/A - PreProcedure, in-person visit Exposed to COVID19 symptoms since test? : N/A - PreProcedure, in-person visit JOSELINE MIRAMONTES RN - 12/29/2021 10:51 EDT Anesthesia/Transfusion History Family History of Anesthesia Reaction : No prior transfusion(s) Transfusion History : Prior anesthesia without reaction Family History of Anesthesia Reaction : None JOSELINE MIRAMONTES RN - 12/29/2021 10:51 EDT Functional Assessment Functional ADL Evaluation Index EBN Bathing : Independent (2) Dressing : Independent (2) Toileting : Independent (2) Transferring Bed or Chair : Independent (2) Continence : Independent (2) Feeding : Independent (2) JOSELINE MIRAMONTES RN - 12/29/2021 10:51 EDT ADL Index Score : 12 JOSELINE MIRAMONTES RN - 12/29/2021 10:51 EDT Advance Directive Patient has Advance Directive *Q : Yes, Advance Directive not with the patient Advance Directive Type : Living will Advance Directive Date : 11/28/2017 EDT Copy Advance Directive Verified/on Chart : No JOSELINE MIRAMONTES RN - 12/29/2021 10:51 EDT [place] Suicide Severity Rating Scale (C-SSRS) CSSRS Past Month Wish to be : No CSSRS Past Month Suicidal Thoughts : No CSSRS Lifetime Suicide Behavior : No Suicide Severity Rating Score : 0 Suicide Severity Rating : No Additional Care Required at this time JOSELINE MIRAMONTES RN - 12/29/2021 10:51 EDT Psychosocial History Chronic/Terminal Illness w/Freq Visits : Yes Do You Have a History of the Following? : Patient denies history Currently in Unsafe Situation : No JOSELINE MIRAMONTES RN - 12/29/2021 10:51 EDT Teaching/Learning Assessment Individuals Taught : Patient, Spouse Readiness to Learn : Cooperative Readiness to Learn : Explanation, Printed materials JOSELINE MIRAMONTES RN - 12/29/2021 10:51 EDT Education Topics, Periop Preadmission Perioperative Education Grid Arrival Time/Place : Verbalizes understanding CHG Preoperative Bathing/Cloths : Verbalizes understanding Infection Control : Verbalizes understanding NPO Status/Directions : Verbalizes understanding Preprocedure Preparations : Verbalizes understanding Preprocedure Tests/Labs : Verbalizes understanding Remove Body Piercings : Verbalizes understanding Responsible Adult : Verbalizes understanding Take/Hold Medications Pre-Procedure : Verbalizes understanding JOSELINE MIRAMONTES RN - 12/29/2021 10:51 EDT General Info Legal Guardian : No Want Family/Rep/Phys Notified of Admit : No Emergency Contact #1 : Ansley Emergency Contact #1 Emergency Contact #1 Relationship : Emergency Contact #2 : - Emergency Contact #2 Phone Number : - Emergency Contact #2 Relationship : - Primary Language : [place]ralt[place] Communication Barrier : None Digital Court Reporter Needed : No JOSELINE MIRAMONTES RN - 12/29/2021 10:51 EDT Salvador Scale Salvador Sensory Perception : No impairment [place] Moisture : Rarely moist [place] Activity : Walks frequently Salvador Mobility : No limitation [place] Nutrition : Adequate [place] Friction and Shear : No apparent problem [place] Score : 22 JOSELINE MIRAMONTES RN - 12/29/2021 10:51 EDT Sleep Apnea Risk Assmt Hx of Obstructive Sleep Apnea Diagnosis : No Snore Loudly : Yes Tired, Fatigued, or Sleepy During Day : No Observed Stopping Breathing During Sleep : No Have/Are Being Treated for Hypertension : No BMI Greater Than 35 kg/m2 : No Age over 50 Years Old : Yes Neck Circumference Greater Than 40 cm : No Gender Male : Yes STOP-BANG Sleep Apnea Risk Level Score : 3 JOSELINE MIRAMONTES RN - 12/29/2021 10:51 EDT Pain Scale Intensity : [address] RN - 01/01/2022 10:40 EDT Image 4 - Images currently included in the form version of this document have not been included in the text rendition version of the form. documented in this encounter Plan of Treatment Not on file documented as of this encounter Visit Diagnoses Not on filedocumented in this encounter Care Teams Electron Beam Welding Machine Operator Relationship Specialty Start Date End Date Eladio Lomas MD [address] [facility] [address] [address] Medical Oncologist Hematology and Oncology 07/08/22 Breanna Crow PACecilia [address] [facility] [address] [place] [address] Physician Electric Motor Assembler Oncology 07/08/22 documented as of this encounter
--- OUTSIDE RECORDS SUMMARY | 2024-10-22 10:49 | XMS_ITS | Encounter Summary ---
Author Organization [facility] [employer] Address [address] [place] [address] Care Team Providers Care Sock Knitter Name Role Phone Eladio Lomas MD Unavailable Breanna Crow PA-C Unavailable [phone] Encounter Details Date Type Department Care Team (Late st Contact Info) Description 10/16/2021 Transcribed Document [facility] [place] [facility] [place] [address] ProviderJailyn MD [address] [place] [address] Social History Tobacco Use Types Packs/Day Years Used Date Smoking Tobacco: Never Assessed Sex and Gender Information Value Date Recorded Sex Assigned at Male 10/27/2021 8:22 PM CDT Legal Sex Male 8:22 PM CDT Gender Identity Male 10/27/2021 8:22 PM CDT Sexual Orientation Not on file documented as of this encounter Miscellaneous Notes * Cerner Conversion Note - Historical ProviderMD - 10/16/2021 2:00 AM CDT Project Control Analyst Details Entered On: 10/16/2021 4:15 EDT Performed On: 10/16/2021 2:00 EDT by Tessy Gramajo RN-PATIENT CARE BEDSIDE NON-EXEMPT Order Details Order Detail : N/A Patient Needs Meds Crushed/Liquid : No Tessy Gramajo RN-PATIENT CARE BEDSIDE NON-EXEMPT - 10/16/2021 4:15 EDT documented in this encounter Plan of Treatment Not on file documented as of this encounter Visit Diagnoses Not on filedocumented in this encounter Care Teams Sock Knitter Relationship Specialty Start Date End Date Eladio Lomas MD [address] [facility] [address] [place] [address] Medical Oncologist Hematology and Oncology 07/08/22 Breanna Crow PA-C [address] [address] Physician Nursing Student Oncology 07/08/22 documented as of this encounter
--- OUTSIDE RECORDS SUMMARY | 2024-10-22 10:49 | XMS_ITS | Encounter Summary ---
Author Organization [facility] [employer] Address [address] [place] [address] Care Team Providers Care Airways Operations Specialist Name Role Phone Eladio Lomas MD Unavailable Breanna Crow PA-C Unavailable [phone] Encounter Details Date Type Department Care Team (Late st Contact Info) Description 10/14/2021 Transcribed Document [facility] [place] [facility] [address] ProviderJailyn MD [address] [place], [place] [phone] Social History Tobacco Use Types Packs/Day Years Used Date Smoking Tobacco: Never Assessed Sex and Gender Information Value Date Recorded Sex Assigned at Male 10/27/2021 8:22 PM CDT Legal Sex Male 8:22 PM CDT Gender Identity Male 10/27/2021 8:22 PM CDT Sexual Orientation Not on file documented as of this encounter Miscellaneous Notes * Cerner Conversion Note - Historical ProviderMD - 10/14/2021 6:20 PM CDT Broset Violence Assessment Entered On: 10/14/2021 18:33 EDT Performed On: 10/14/2021 18:33 EDT by UGO FAN, RN Broset Violence Assessment Broset Violence Checklist of Symptoms : None Broset Violence Symptoms Subtotal : 0 Broset Violence Symptoms Indicator : Low risk (0) UGO FAN, RN - 10/14/2021 18:33 EDT Electronically signed by Huy [facility] Conversion Duplicating Machine Mechanic Cerner at 08/17/2022 6:01 PM CDT documented in this encounter Plan of Treatment Not on file documented as of this encounter Visit Diagnoses Not on filedocumented in this encounter Care Teams Airways Operations Specialist Relationship Specialty Start Date End Date Eladio Lomas MD [address] [facility] [address] [place] [address] Medical Oncologist Hematology and Oncology 07/08/22 Breanna Crow PA-C [address] [address] Physician C++ Professor Oncology 07/08/22 documented as of this encounter
--- OUTSIDE RECORDS SUMMARY | 2024-10-22 10:49 | XMS_ITS | Encounter Summary ---
Author Organization [employer] Address [address] [place] [address] Care Team Providers Care Tmr Teacher Name Role Phone Eladio Lomas MD Unavailable Breanna Crow PA-C Unavailable [phone] Encounter Details Date Type Department Care Team (Late st Contact Info) Description 10/14/2021 Transcribed Document [facility] [place] [facility] [place] [address] ProviderJailyn MD [address] [place] [address] Social History Tobacco Use Types [...] Conversion Note - Jailyn Lira MD - 10/14/2021 6:20 PM CDT ED Assessment Entered On: 10/15/2021 1:38 EDT Performed On: 10/14/2021 21:30 EDT by FLORA SOUZA RN ED Quick Look Assessment Level of Consciousness : Alert, Awake Affect/Behavior : Appropriate, Calm, Cooperative Orientation : Oriented x 4 Skin Temperature : Warm Skin Description : Dry, [place] FLORA SOUZA RN - 10/15/2021 1:37 EDT ED General-Functional Assess Information Obtained From : Patient Communication Barrier : None Primary Language : [place] Citizen Any Spiritual/Cultural Needs or Requests : No Currently in Unsafe Situation : No FLORA SOUZA RN - 10/15/2021 1:37 EDT Social Habits Smoking Status : Never (less than 100 in lifetime; none in last 30 days) Smokeless Tobacco Status : Never Desires Tobacco Cessation Calc : 0 FLORA SOUZA RN - 10/15/2021 1:37 EDT Social History (As Of: 10/15/2021 01:38:44 EDT) Respiratory Respiratory Assessment WDL : WDL Respiratory Pattern Description : Regular FLORA SOUZA RN - 10/15/2021 1:37 EDT Neurologic ASMT, ED Neurologic Assessment WDL : WDL with exceptions Neurological Symptoms : Tingling, Weakness Dejuan Coma Scale Link : Open GCS Neurological Assessment Comment : Pt c/o RLE tingling and weakness after mowing grass today. FLORA SOUZA RN - 10/15/2021 1:37 EDT [place] Coma [place] Best Motor Response : Obey commands [place] Best Verbal Response : Oriented [place] Eye Opening Response : Spontaneous [place] Coma Score : 15 FLORA SOUZA RN - 10/15/2021 1:37 EDT documented in this encounter Plan of Treatment Not on file documented as of this encounter Visit Diagnoses Not on filedocumented in this encounter Care Teams Tmr Teacher Relationship Specialty Start Date End Date Eladio Lomas MD [address] [address] Medical Oncologist Hematology and Oncology 07/08/22 Breanna Crow PA-C [address] [facility] [address] [place] [address] Physician Husker Operator Oncology 07/08/22 documented as of this encounter
--- OUTSIDE RECORDS SUMMARY | 2024-10-22 10:49 | XMS_ITS | Encounter Summary ---
Author Organization [facility] [employer] In [employer]atives Address [address] [place] [address] Care Team Providers Care Laminating Machine Operator Helper Name Role Phone Eladio Lomas MD Unavailable Breanna Crow PA-C Unavailable [phone] Encounter Details Date Type Department Care Team (Late st Contact Info) Description 01/01/2022 Transcribed Document [facility] [facility] [place] [address] ProviderJailyn MD [address] [place] [address] Social History Tobacco Use Types [...] Note - Jailyn Lira MD - 01/01/2022 10:44 AM CDT Event Note Entered On: 01/01/2022 10:46 EDT Performed On: 01/01/2022 10:[address] RN Event Note Event Date/Time : 01/01/2022 7:55 EDT Event Details : Other: Description of Event : Patient ID band and chart not matching, Jovany Vega notified, problem corrected, RN re-stickered chart to match with band and computer FIN/MRN numbers. Jovany Vega at beside with primary RN to verify patient to chart and numbers. All information matches currently between chart, band and paperwork. Ansley Lane RN - 01/01/2022 10:44 EDT documented in this encounter Plan of Treatment Not on file documented as of this encounter Visit Diagnoses Not on filedocumented in this encounter Care Teams Laminating Machine Operator Helper Relationship Specialty Start Date End Date Eladio Lomas MD 12[address] [facility] [address] [place] [address] Medical Oncologist Hematology and Oncology 07/08/22 Breanna Crow, PACecilia [address] [address] Physician Gl Accountant Oncology 07/08/22 documented as of this encounter
--- OUTSIDE RECORDS SUMMARY | 2024-10-22 10:49 | XMS_ITS | Encounter Summary ---
Author Organization [facility] [employer] Address [address] [place] [address] Care Team Providers Care Open Hearth Furnace Laborer Name Role Phone Eladio Lomas MD Unavailable Breanna Crow PA-C Unavailable [phone] Encounter Details Date Type Department Care Team (Late st Contact Info) Description 10/15/2021 Transcribed Document [facility] [place] [facility] [place] [address] ProviderJailyn MD [address] [place], [place] [phone] Social History Tobacco Use Types Packs/Day Years Used Date Smoking Tobacco: Never Assessed Sex and Gender Information Value Date Recorded Sex Assigned at Male 10/27/2021 8:22 PM CDT Legal Sex Male 8:22 PM CDT Gender Identity Male 10/27/2021 8:22 PM CDT Sexual Orientation Not on file documented as of this encounter Miscellaneous Notes * Cerner Conversion Note - Jailyn Lira MD - 10/15/2021 9:28 AM CDT Initial Discharge Planning Entered On: 10/15/2021 9:30 EDT Performed On: 10/15/2021 9:28 EDT by Meghann Scott Rn Initial Assessment I Previously Documented Living Environment : No qualifying data available. Living Situation : Home Patient Lives With : Spouse Is the Patient a Caregiver at Home? : No Emergency Contact #1 : Ansley Hu Emergency Contact #1 Emergency Contact #1 Relationship : Emergency Contact #2 : . Emergency Contact #2 Phone Number : . Emergency Contact #2 Relationship : . Identified Medical Decision Maker : self Enter Doctors Name : Arsalan Isabel Does Patient have PCP Listed? : Yes Legal Guardian : No Is Guardianship Needed : No Meghann Scott Rn - 10/15/2021 9:28 EDT Initial Assessment II Sensory and Motor Deficits : None Current Home Treatments and Equipment : Cane Services and Community Resources : Other: NA Does the Patient have a Floor to SNF Benefit? : No Meghann Scott Rn - 10/15/2021 9:28 EDT Discharge Needs I Anticipated Discharge Date : 10/19/2021 EDT Anticipated Discharge To, CM : Home with family care, Home with home health Current Home Treatment/Equipment : Current Home Treatment/Equipment No qualifying data available. Post Acute/Home Treatments : None Documentation Status Complete : Yes Meghann Scott Rn - 10/15/2021 9:28 EDT Discharge Needs II Professional Skilled Services : Professional Skilled Services No qualifying data available. Services and Community Resources : Other: nA Needs Assistance with Transportation : No Discharge Options Discussed with Patient : Discharge transportation, DME, Home Health Patient Discharge Goal : Home health care Meghann Scott Rn - 10/15/2021 9:28 EDT Narrative Note Narrative Note : 71yo male patient admitted with increased R leg weakness/numbness causing mx falls at home. patient had chickenpox x2 weeks ago, otherwise walked 4miles/day and iADLs. patient lives at home with spouse who will transport at dc. Neuro, PT/OT consulted INP LOW ELOS 4 days PLAN: needs TBD- pending MRI and final recs, CM will follow for dc planning needs Meghann Scott Rn - 10/15/2021 9:28 EDT documented in this encounter Plan of Treatment Not on file documented as of this encounter Visit Diagnoses Not on filedocumented in this encounter Care Teams Open Hearth Furnace Laborer Relationship Specialty Start Date End Date Eladio Lomas MD [address] [facility] [address] [place] [address] Medical Oncologist Hematology and Oncology 07/08/22 Breanna Crow, PA-C [facility] [address] [place], [place] [id number] Physician Cotton Grower Oncology 07/08/22 documented as of this encounter
--- OUTSIDE RECORDS SUMMARY | 2024-10-22 10:49 | XMS_ITS | Encounter Summary ---
Author Organization [facility] [employer] Address [address] [place] [address] Care Team Providers Care Teacher [employer] Name Role Phone Eladio Lomas MD Unavailable Breanna Crow PA-C Unavailable [phone] Encounter Details Date Type Department Care Team (Late st Contact Info) Description 10/15/2021 Transcribed Document [facility] [facility] [place] [address] ProviderJailyn MD [address] [place], [place] [id number] Social History Tobacco Use Types Packs/Day Years Used Date Smoking Tobacco: Never Assessed Sex and Gender Information Value Date Recorded Sex Assigned at Male 10/27/2021 8:22 PM CDT Legal Sex Male 8:22 PM CDT Gender Identity Male 10/27/2021 8:22 PM CDT Sexual Orientation Not on file documented as of this encounter Miscellaneous Notes * Cerner Conversion Note - Jailyn Lira MD - 10/15/2021 12:50 PM CDT Consult Phone Call Documentation Entered On: 10/15/2021 14:45 EDT Performed On: 10/15/2021 12:50 EDT by Miladys Carter Care Asst-Health Unit Coord Phone Call for Consults Consult Reason : spine for right L5 radiculopathy causing foot drop Physician Requesting Consult : ROMERO INGRAM MD-SERENE Physician Requested for Consult : SHARON PATRICIO MD-ORT Date and Time Call Returned : 10/15/2021 14:40 EDT Consult, Additional Information : Spoke with Dr. Rosenberg on the phone concerning the consult. Miladys Carter, Functional Support [facility]Ad[facility] - 10/15/2021 14:41 EDT documented in this encounter Plan of Treatment Not on file documented as of this encounter Visit Diagnoses Not on filedocumented in this encounter Care Teams Teacher [employer] Relationship Specialty Start Date End Date lEadio Lomas MD [address] [address] Medical Oncologist Hematology and Oncology 07/08/22 Breanna Crow, PA-C [address] [address] Physician Rug Touch Up Painter Oncology 07/08/22 documented as of this encounter
--- OUTSIDE RECORDS SUMMARY | 2024-10-22 10:49 | XMS_ITS | Encounter Summary ---
Author Organization [facility] In [employer] Address [address] [place] [address] Care Team Providers Care Buckle Sewer Name Role Phone Eladio Lomas MD Unavailable Breanna Crow PA-C Unavailable [phone] Encounter Details Date Type Department Care Team (Late st Contact Info) Description 10/16/2021 Transcribed Document [facility] [place] [facility] [place] [address] ProviderJailyn MD [address] [place], [place] [phone] Social History Tobacco Use Types Packs/Day Years Used Date Smoking Tobacco: Never Assessed Sex and Gender Information Value Date Recorded Sex Assigned at Male 10/27/2021 8:22 PM CDT Legal Sex Male 8:22 PM CDT Gender Identity Male 10/27/2021 8:22 PM CDT Sexual Orientation Not on file documented as of this encounter Miscellaneous Notes * Cerner Conversion Note - Jailyn Lira MD - 10/16/2021 3:13 PM CDT Consult Phone Call Documentation Entered On: 10/16/2021 17:46 EDT Performed On: 10/16/2021 15:13 EDT by Jessica Rivera, Auto PorterHealth Unit Coord Phone Call for Consults Consult Phone Call/Page Attempt : First call Physician Covering for Consult : TRENA DONAHUE MD-INF Consult, Additional Information : Consult called in to Dr. Trena Donahue, he stated that if Dr Edwin Carver had not seen them today, he would see them tomorrow Jessica Rivera, Auto Porter-Health Unit Coord - 10/16/2021 17:43 EDT documented in this encounter Plan of Treatment Not on file documented as of this encounter Visit Diagnoses Not on filedocumented in this encounter Care Teams Buckle Sewer Relationship Specialty Start Date End Date Eladio Lomas MD 12[address] [facility] [address] [place] [address] Medical Oncologist Hematology and Oncology 07/08/22 Breanna Crow PA-C [address] [place] [address] Physician Piping Designer Oncology 07/08/22 documented as of this encounter
--- OUTSIDE RECORDS SUMMARY | 2024-10-22 10:49 | XMS_ITS | Encounter Summary ---
Author Organization [facility] In iatives Address [address] [place] [place] [address] Care Team Providers Care Operating System Programmer Name Role Phone Eladio Lomas MD Unavailable Breanna Crow PA-C Unavailable [phone] Encounter Details Date Type Department Care Team (Late st Contact Info) Description 01/01/2022 Transcribed Document [facility] Family Medicine [facility] [place] [address] ProviderJailyn MD [address] [place] [address] Social History Tobacco Use Types [...] Note - Jailyn Lira MD - 01/01/2022 1:04 PM CDT [address] [place] [address] [place] [address] SARAH HU :1950 Visit Time:01/01/2022 What [...] for follow-up date and appointment time Activity: Bradford dressing. Do not remove. May shower with [...] MD-ORT When 01/14/2022 11:00 AM EDT Where: [address] [place] [address] [address] [place] [address]- Medications What How Much When Instructions Next Dose acetaminophen-oxyCODONE (Percocet 7.5/ 325 oral tablet) 1 Tablet(s) Oral Three Times A Day as needed for for pain Pickup at [facility] acetaminophen (Tylenol 325 mg oral tablet) 2 Tablet(s) Oral Every 4 Hours as needed for Pain (Mild 1-3) ergocalciferol (ergocalciferol 50 mcg (2000 intl units) oral capsule) 1 Capsule(s) Oral Every Day Duration: 14 Day(s) multivitamin (Multiple Vitamins oral tablet) 1 Tablet(s) Oral Every Day valACYclovir (Valtrex 1 g oral tablet) 1 Tablet(s) Oral Every Day Pharmacy Information [facility]: [address] [place], [place] [id number] [phone] Take your medications faithfully. Do NOT skip [...] these instructions at home: Medicines ??? Take kdek-mhv-gnhcdow and prescription medicines as told by your [...] keep your urine pale yellow. ? Take ydzd-bjf-ozwjvaq or prescription medicines. ? Eat foods that [...] and water are not available, use hand conditioner tumbler operator. ? Change your dressing as told by [...] safe to drive. General instructions ??? Take tjqi-wqy-heyqlqh and prescription medicines only as told by [...] provider. Document Revised: 08/06/2020 Document Reviewed: 08/06/2020 [employer] Patient Education ?? 2021 [employer]. Laminectomy, Care After This sheet gives [...] these instructions at home: Medicines ??? Take qxon-yab-ejwreeh and prescription medicines only as told by [...] keep your urine pale yellow. ? Take enla-cyt-qdywtub or prescription medicines. ? Eat foods that [...] and water are not available, use hand conditioner tumbler operator. ? Change your dressing as told by [...] provider. Document Revised: 11/12/2019 Document Reviewed: 11/12/2019 Else[employer]Local Patient Education ?? 2021 [employer]. Emergency Awareness and Preventative Care STROKE is [...] Assistance with quitting is available by contacting 0-826-ESXB-NOW. This is a free resource providing counseling, [...] was given the opportunity to ask questions. Patient/Clothespin Drier Operator Name: Patient/Clothespin Drier Operator Signature: Relationship to Patient: Clinician/Hospital Clothespin Drier Operator Signature: Date: documented in this encounter Plan of Treatment Not on file documented as of this encounter Visit Diagnoses Not on filedocumented in this encounter Care Teams Operating System Programmer Relationship Specialty Start Date End Date Eladio Lomas MD [address] [facility] [address] [place] [address] Medical Oncologist Hematology and Oncology 07/08/22 Breanna Crow PA-C [address] [facility] [address] [place] [address] Physician Sustainability Specialist Oncology 07/08/22 documented as of this encounter
--- OUTSIDE RECORDS SUMMARY | 2024-10-22 10:49 | XMS_ITS | Encounter Summary ---
Author Organization [facility] In iatives Address [address] [place] [address] Care Team Providers Care Labor Relations Specialist Name Role Phone Eladio Lomas MD Unavailable Breanna Crow PA-C Unavailable [phone] Encounter Details Date Type Department Care Team (Late st Contact Info) Description 10/15/2021 Transcribed Document [facility] [place] [facility] [place] [address] ProviderJailyn MD [address] [place] [address] Social History Tobacco Use Types [...] Conversion Note - Jailyn ProviderMD - 10/15/2021 3:15 PM CDT Evaluation, Occupational Therapy Entered On: 10/17/2021 12:26 EDT Performed On: 10/17/2021 9:07 EDT by CRYSTAL ROBERTS OTR/Mikal General Information, OT Visit Type, OT : Initial evaluation Patient Orders : Order Date Order Ordering 10/15/2021 05:37 OT Evaluation and Treatment Ordered By: CANDIDA GUO DO-INT 10/15/2021 15:15 OT Evaluation and Treatment Ordered By: GARCIA WORKMAN MD-ORT Active Diagnoses : 10/15/2021 12:00 Chronic lymphocytic leukemia of B-cell type not having achieved remission 10/15/2021 12:00 Essential (primary) hypertension 10/15/2021 12:00 Neurologic problem 10/15/2021 12:00 Other specified abnormal findings of blood chemistry 10/15/2021 12:00 Other symptoms and signs involving the musculoskeletal system 10/15/2021 12:00 Varicella without complication 10/14/2021 12:00 Paresthesia Therapy Diagnosis, OT : weakness affecting ADLs, fx mobilitiy Onset of Problem, OT : 10/15/2021 EDT Admission Date : 10/15/2021 03:06 Personal Devices : Personal Devices No Devices Recorded Assistive Devices : Assistive Devices No Devices Recorded Precautions in Place : Fall prevention measures CRYSTAL ROBERTS OTR/L - 10/17/2021 12:09 EDT General Status Patient Received Status : Long sitting in bed Treatment Start Time : 10/17/2021 9:07 EDT Patient Left Status : Sitting edge of bed, Family/Visitors at bedside, Communication board completed, All needs met and within reach RN/PCT Informed Comment : RN ok'ed. Client agrees to tx. Treatment End Time : 10/17/2021 9:52 EDT Treatment Time : 45 Minute(s) Actual Treatment Time : 45 Minute(s) CRYSTAL ROBERTS OTR/L - 10/17/2021 12:09 EDT History and Environment, OT Living Situation, Therapy : Home Patient Lives With : Spouse Persons Assisting Patient at Home : Spouse Persons Providing Information : Patient, Spouse Home Equipment, Therapy : None Home Setup : Two story Bedroom Location [...] with HR on (R) side going up CRYSTAL ROBERTS OTR/L - 10/17/2021 12:09 EDT Prior LOF Bathing, OT : Independent Prior LOF Bed Mobility : Independent Prior LOF Upper Body Dressing, OT : Independent Prior LOF Lower Body Dressing, OT : Assist needed Prior LOF Toileting : Independent Prior LOF Transfer : Assist needed (Comment: supervision [CRYSTAL ROBERTS OTR/L - 10/17/2021 12:09 EDT] ) Prior LOF Grooming, OT : Independent Prior LOF for IADLs, OT : Independent CRYSTAL ROBERTS OTR/L - 10/17/2021 12:09 EDT Prior LOF Assist with ADL Comment : has been needing assistance lately, since experiencing weakness in his R leg CRYSTAL ROBETRS DANIELR/L - 10/17/2021 12:09 EDT Upper Extremity Upper Extremity Dominance : Right Right UE Active ROM : WFL Right UE Strength : WFL Left UE Active ROM : WFL Left UE Strength : WFL CRYSTAL ROBERTS DANIELR/L - 10/17/2021 12:09 EDT Self Care/Home Management, OT Lower Body Dressing Assist Level, OT : Assist, minimal CRYSTAL ROBERTS DANIELR/L - 10/17/2021 12:09 EDT Functional Mobility Mobility Grid Supine to Sit : Supervision/set-up Sit to Stand : Rehab Minimal assistance Bed to Chair : Supervision/set-up (Comment: CGA [CRYSTAL ROBERTS OTR/L - 10/17/2021 12:09 EDT] ) CRYSTAL ROBERTS DANIELR/Mikal - 10/17/2021 12:09 EDT Cognition Assessment, OT Orientation : Oriented x 4 CRYSTAL ROBERTS OTR/L - 10/17/2021 12:09 EDT Indication Assessment, OT Occupational Therapy Indicated : Yes Problem List, OT : Impaired, activities daily living, Impaired functional mobility CRYSTAL ROBERTS OTR/L - 10/17/2021 12:09 EDT Plan of Care, OT OT Tx Plan/Goals Established w Patient : Yes OT Frequency Rehab : Four days per week OT Duration Rehab : Fourteen days OT Treatments Planned : Activities of daily living, Functional mobility training, Therapeutic activities, Therapeutic exercises CRYSTAL ROBERTS DANIELR/Mikal - 10/17/2021 12:09 EDT Trim Stencil Maker Goals, OT Other LTG Grid Goal #1 Goal #2 Goal : Client will complete transfers for ADLs with supervision Client will complete LB ADLs with set-up A Date to Meet : 10/31/2021 EDT 10/31/2021 EDT Goal Status : Initial goal Initial goal CRYSTAL ROBERTS OTR/Mikal - 10/17/2021 12:09 EDT CRSYTAL ROBERTS OTR/Mikal - 10/17/2021 12:09 EDT Treatment Note Additional Objective Information : Client completed transfer from supine to sit with supervision, needed some cues to correct posture/position. While on edge of bed, able to put on sock, AFO and shoe, with verbal cues and pblr-vr-aqgn instructions on how to perform, due to limitations in coordination, strength of right LE. Walked to therapy gym with cGA, verbal cues on positioning of right foot. Able to complete stair training with OT and PT for safety. Some instructions given on use of the walker, especially during turns - client able to return demonstrate. Client and verbalize understanding of adaptatiosn fo rADLs to promote safety and for client to increase coordination. Assessment : Client may benefit from OT services while inpatient to return to living independently, and performance of ADLs, fx mobility. CRYSTAL ROBERTS PAYAL/Mikal - 10/17/2021 12:09 EDT Pain Assessment Pain Scaled Used : 0-10 Pain scale Pain Score Pre-Intervention : 0 CRYSTAL ROBERTS PAYAL/Mikal - 10/17/2021 12:09 EDT Image 1 - Images currently included in the form version of this document have not been included in the text rendition version of the form. [place] OT Charges OT Selfcare/Hm Mgmt Ea 15 Min : 2 OT Eval Low Complexity : 1 CRYSTAL ROBERTS PAYAL/Mikal - 10/17/2021 12:09 EDT documented in this encounter Plan of Treatment Not on file documented as of this encounter Visit Diagnoses Not on filedocumented in this encounter Care Teams Labor Relations Specialist Relationship Specialty Start Date End Date Eladio Lomas MD [address] [facility] [address] [place] [address] Medical Oncologist Hematology and Oncology 07/08/22 Breanna Crow, PACecilia [address] [place] [address] Physician Lieutenant Ballistics Oncology 07/08/22 documented as of this encounter
--- OUTSIDE RECORDS SUMMARY | 2024-10-22 10:49 | XMS_ITS | Encounter Summary ---
Author Organization [facility] In iatives Address [address] [place] [address] Care Team Providers Care Shredding Floor Equipment Operator Name Role Phone Eladio Lomas MD Unavailable Breanna Crow PA-C Unavailable [phone] Encounter Details Date Type Department Care Team (Late st Contact Info) Description 01/01/2022 Transcribed Document [facility] Family Medicine [facility] [place] [address] ProviderJailyn MD [address] [place] [address] Social History Tobacco Use Types [...] Note - Jailyn Lira MD - 01/01/2022 12:59 PM CDT [address] [address] SARAH HU :1950 Visit Time:01/01/2022 [...] for follow-up date and appointment time Activity: [place] dressing. Do not remove. May shower with [...] MD-ORT When 01/14/2022 11:00 AM EDT Where: [address] [place] [address] [address] [place] [address]- Medications What How Much When Instructions Next Dose acetaminophen-oxyCODONE (Percocet 7.5/ 325 oral tablet) 1 Tablet(s) Oral Three Times A Day as needed for for pain Pickup at [facility] acetaminophen (Tylenol 325 mg oral tablet) 2 Tablet(s) Oral Every 4 Hours as needed for Pain (Mild 1-3) ergocalciferol (ergocalciferol 50 mcg (2000 intl units) oral capsule) 1 Capsule(s) Oral Every Day Duration: 14 Day(s) multivitamin (Multiple Vitamins oral tablet) 1 Tablet(s) Oral Every Day valACYclovir (Valtrex 1 g oral tablet) 1 Tablet(s) Oral Every Day Pharmacy Information [facility]: [address] [place], [place] [phone] Take your medications faithfully. Do NOT skip [...] these instructions at home: Medicines ??? Take arwq-qfs-wjdraij and prescription medicines as told by your [...] keep your urine pale yellow. ? Take xnrz-scv-kwiuvnc or prescription medicines. ? Eat foods that [...] and water are not available, use hand occupational health nurse manager. ? Change your dressing as told [...] safe to drive. General instructions ??? Take tckl-uoh-gcgarti and prescription medicines only as told by [...] provider. Document Revised: 08/06/2020 Document Reviewed: 08/06/2020 [email or web address] Patient Education ?? 2021 [employer] Laminectomy, Care After This sheet gives [...] these instructions at home: Medicines ??? Take nreq-lyf-tqbirbq and prescription medicines only as told by [...] keep your urine pale yellow. ? Take zflp-pjk-zzebxsm or prescription medicines. ? Eat foods that [...] and water are not available, use hand occupational health nurse manager. ? Change your dressing as told [...] provider. Document Revised: 11/12/2019 Document Reviewed: 11/12/2019 Else20/20 [employer]. Patient Education ?? 2021 [employer]. Emergency Awareness and Preventative Care STROKE is [...] Assistance with quitting is available by contacting 5-807-VHZY-NOW. This is a free resource providing counseling, [...] was given the opportunity to ask questions. Patient/Sludge Filtration Attendant Name: Patient/Sludge Filtration Attendant Signature: Relationship to Patient: Clinician/Hospital Sludge Filtration Attendant Signature: Date: documented in this encounter Plan of Treatment Not on file documented as of this encounter Visit Diagnoses Not on filedocumented in this encounter Care Teams Shredding Floor Equipment Operator Relationship Specialty Start Date End Date Eladio Lomas MD [address] [facility] [address] [address] Medical Oncologist Hematology and Oncology 07/08/22 Breanna Crow PA-C [address] [facility] [address] [place] [address] Physician Workforce Advisor Oncology 07/08/22 documented as of this encounter
--- OUTSIDE RECORDS SUMMARY | 2024-10-22 10:49 | XMS_ITS | Encounter Summary ---
Author Organization [facility] In iatives Address [address] [facility] [place] [address] Care Team Providers Care Grocery Store Associate Name Role Phone Eladio Lomas MD Unavailable Breanna Crow PA-C Unavailable [phone] Encounter Details Date Type Department Care Team (Late st Contact Info) Description 12/29/2021 Transcribed Document [facility] [place] [address] ProviderJailyn MD [address] [place] [address] Social History Tobacco Use Types Packs/Day [...] Note - Jailyn Lira MD - 12/29/2021 11:00 AM CDT Patient: SARAH HU Age: 71 Years Sex: Male : 1950 Chief Complaint Low back pain Primary Care Provider BHAVANA ARTEAGA (REF)[facility] History of Present Illness This patient is a pleasant 71 yo male who presents with low back pain. The pain has been going on for 20 years but is getting progressively worse. in September the patient suffered from right foot drop and was hospitalized with disseminated VZV infection. He describes it as an aching pain. It is now to the point that it is affecting his ADLs. He has tried Tylenol without relief of his pain. He has fallen. He has used a cane as an assistive device. He saw Dr. Monroy who evaluated him and offered a Right L4-5 Laminectomy, Possible;e Discectomy. The patient agreed to the procedure. Pt denies a h/o RLE DVT. Pt completed course of Eliquis and has received hematology clearance. NO hx of PE. No trouble with anesthesia in the past. Pt denies h/o COPD/Asthma/DARIEN. Review of Systems Constitutional: Neg for fevers or chills. Eyes: Neg for blurry vision or change in vision. ENT: Neg for sore throat, ear pain, or dizziness. Cardiac: Neg for chest pain or dyspnea on exertion. Respiratory: Neg for shortness of breath. Gastrointestinal: Neg for nausea, vomiting, diarrhea, or constipation. Musculoskeletal: Pos for low back pain. Neurologic: Neg for headaches or seizures. Psychiatric: Neg for anxiety and depression. Integumentary: Neg for rash. Vital Signs T: 36.8 ??C HR: 87(Peripheral) RR: 16 BP: 151/68 SpO2: 97% HT: 167.64 cm WT: 72.73 kg BMI: 25.9 Oxygen Settings (Last) Oxygen Therapy Mode: Room air (12/29/21 10:51:00) Physical Exam Constitutional: Alert and oriented, pleasant, in no acute distress. HEENT: Normocephalic, atraumatic. EOMI. Conjunctiva pink without exudate. Oropharynx pink and moist. Neck supple. Cardiac: RRR. Pos systolic murmur. Respiratory: Lungs CTA bilaterally. Nonlabored breathing. Abdomen: Soft, nontender, nondistended. Musculoskeletal: Low back pain. Integumentary: Skin is pink, warm and dry. No rashes. Neurologic: CN II-XII grossly intact. Psychiatric: Judgment and affect appropriate. Assessment/Plan 1. Preoperative evaluation - Pt underwent preoperative laboratory workup and diagnostic studies. 2. CLL - stated to be in remission. Pt received oncology clearance from Dr. Lomas who states his CLL is stable as of 12/14/2021. WBC 14.3 elevated since September 2021 x multiple readings. Discussed with Dr. Monroy via Cheryl. OK to proceed. 3. Hx of RLE DVT - BLE venous duplex on 10/17/2021 showed acute DVT in the right below knee veins involving the right posterior tibial vein Pt was placed on Eliquis and completed course per hematology. Per ortho notes, DVT/anticoagulation has been discussed with hematology. Defer anticoagulation needs to surgeon. 4. 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 5. Hx of MVP - pt has not seen a ice cream vault worker 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 Pt denies CP, dizziness, or palpitations. Audible systolic murmur upon exam. Discussed with Dr. Sanz/Anesthesia. ECHO ordered for today 12/29. EF 70%, no /MS. Mild AR, mild MR. 6. Vit D deficiency - Vit D level 22.0 Rx sent for 2000 IU oral Vit d supplementation daily and follow up with PCP in 30 days for repeat Vit D level. 7. Low back pain - Proceed with surgery as scheduled with Dr. Monroy on 01/01/2022. Problem List/Past Medical History Ongoing At risk for sleep apnea CLL (chronic lymphocytic leukemia) DVT (deep venous thrombosis) , right leg Mitral valve prolapse diagnosed at age 38 Wears dentures, upper plate only Wears glasses Procedure/Surgical History ULTRASONOGRAPHY OF HEART WITH AORTA (11/29/2017), Chemotherapy, Colonoscopy, neck surgery 4 lymphs removed, R & L HRT CATH WINJX HRT ART& L VENTR IMG. Home Medications (3) Active Multiple Vitamins oral tablet 1 Tab, Oral, Daily Tylenol 325 mg oral tablet 650 mg = 2 Tab, PRN, Oral, Q4H Valtrex 1 g oral tablet 1 Gram = 1 Tab, Oral, Daily Allergies Shrimp (rash) contrast media (iodine-based) (difficulty breathing) Social History Alcohol Alcohol Use History No. Alcohol Use History No. Substance Abuse Drug Use Hx: No. Drug Use Hx: No. Tobacco Former smoker, quit more than 30 days ago Smoking Status. Former smoker, quit more than 30 days ago Smoking Status. Years of Use: 8. Packs/Tins Daily: 0.5. Last Used: quit at age 26. Family History CAD - Coronary artery disease: Father. Liver cancer: Sister. Pancreatic cancer: Sister. Diagnostic Results EKG - NSR, VR 82. Lab Results Test Name Test Result Date/Time Sodium Level 142 mmol/L 12/29/2021 10:31 EDT Potassium Level 4.0 mmol/L 12/29/2021 10:31 EDT Chloride Level 107 mmol/L 12/29/2021 10:31 EDT Carbon Dioxide Level 32 mmol/L 12/29/2021 10:31 EDT Anion Gap 7 (Low) 12/29/2021 10:31 EDT Glucose Level 119 mg/dL (High) 12/29/2021 10:31 EDT Blood Urea Nitrogen 13 mg/dL 12/29/2021 10:31 EDT Creatinine Level 0.94 mg/dL 12/29/2021 10:31 EDT eGFR >60 mL/min/1.73m2 12/29/2021 10:31 EDT eGFR NonAfrican >60 mL/min/1.73m2 12/29/2021 10:31 EDT Bun/Creatinine 13.8 12/29/2021 10:31 EDT Calcium Level 8.9 mg/dL 12/29/2021 10:31 EDT Protein Total 6.6 Gram/dL 12/29/2021 10:31 EDT Albumin Level 4.2 Gram/dL 12/29/2021 10:31 EDT Globulin 2.4 Gram/dL 12/29/2021 10:31 EDT A/G Ratio 1.8 12/29/2021 10:31 EDT Bilirubin Total 0.4 mg/dL 12/29/2021 10:31 EDT Alk Phos 75 Units/Liter 12/29/2021 10:31 EDT AST 23 Units/Liter 12/29/2021 10:31 EDT ALT 36 Units/Liter 12/29/2021 10:31 EDT Vitamin D 25 Hydroxy 22.0 ng/mL (Low) 12/29/2021 10:31 EDT WBC 14.3 K/uL (High) 12/29/2021 10:31 EDT RBC 4.97 Million/uL 12/29/2021 10:31 EDT Hgb 15.2 Gram/dL 12/29/2021 10:31 EDT Hct 44.9 % 12/29/2021 10:31 EDT MCV 90.3 fL 12/29/2021 10:31 EDT MCH 30.6 pg 12/29/2021 10:31 EDT MCHC 33.9 Gram/dL 12/29/2021 10:31 EDT Platelet Count 187 K/uL 12/29/2021 10:31 EDT MPV 9.5 fL 12/29/2021 10:31 EDT RDW 14.3 % 12/29/2021 10:31 EDT Neut % 29.9 % (Low) 12/29/2021 10:31 EDT Neut # 4.27 K/uL 12/29/2021 10:31 EDT Lymph % 53.1 % (High) 12/29/2021 10:31 EDT Lymph # 7.60 K/uL (High) 12/29/2021 10:31 EDT Osborne % 14.8 % (High) 12/29/2021 10:31 EDT Osborne # 2.11 K/uL (High) 12/29/2021 10:31 EDT Eos % 1.3 % 12/29/2021 10:31 EDT Eos # 0.19 K/uL 12/29/2021 10:31 EDT Baso % 0.6 % 12/29/2021 10:31 EDT Baso # 0.09 K/uL (High) 12/29/2021 10:31 EDT Slide Review No 12/29/2021 10:31 EDT IG# 0 x10(3)/uL 12/29/2021 10:31 EDT IG% 0 % 12/29/2021 10:31 EDT PT 10.3 Second(s) 12/29/2021 10:31 EDT INR 1.0 12/29/2021 10:31 EDT PTT 25.8 Second(s) 12/29/2021 10:31 EDT Prealbumin 30.3 mg/dL 12/29/2021 10:31 EDT Fructosamine - send out lab, pending MRSA (nasal) - pending Nicotine - pending Cotinine - pending documented in this encounter Plan of Treatment Not on file documented as of this encounter Visit Diagnoses Not on filedocumented in this encounter Care Teams Grocery Store Associate Relationship Specialty Start Date End Date Eladio Lomas MD [address] [facility] [address] [place] [address] Medical Oncologist Hematology and Oncology 07/08/22 Breanna Crow PA-C [facility] [place] [address] Physician Bee Tender Oncology 07/08/22 documented as of this encounter
--- OUTSIDE RECORDS SUMMARY | 2024-10-22 10:49 | XMS_ITS | Encounter Summary ---
Author Organization [facility] In iatives Address [address] [place] [address] Care Team Providers Care Primary Education Professor Name Role Phone Eladio Lomas MD Unavailable Breanna Crow PA-C Unavailable [phone] Encounter Details Date Type Department Care Team (Late st Contact Info) Description 10/14/2021 Transcribed Document [facility] [place] [facility] [address] ProviderJailyn MD [address] [place], [place] [id number] Social History Tobacco Use Types Packs/Day Years [...] Lira MD - 10/14/2021 6:20 PM CDT [place] Suicide Severity Rating Scale (C-SSRS) Entered On: 10/14/2021 18:34 EDT Performed On: 10/14/2021 18:33 EDT by UGO FAN RN [place] Suicide Severity Rating Scale (C-SSRS) CSSRS Past Month Wish to be : No CSSRS Past Month Suicidal Thoughts : No CSSRS Lifetime Suicide Behavior : No Suicide Severity Rating Score : 0 Suicide Severity Rating : No Additional Care Required at this time Thoughts of Harming/Killing Others : No UGO FAN RN - 10/14/2021 18:33 EDT documented in this encounter Plan of Treatment Not on file documented as of this encounter Visit Diagnoses Not on filedocumented in this encounter Care Teams Primary Education Professor Relationship Specialty Start Date End Date Eladio Lomas MD [address] [facility] [address] [address] Medical Oncologist Hematology and Oncology 07/08/22 Breanna Crow, PACecilia [address] [place] [address] Physician Ground Water Pump Installer Oncology 07/08/22 documented as of this encounter
--- OUTSIDE RECORDS SUMMARY | 2024-10-22 10:49 | XMS_ITS | Encounter Summary ---
Author Organization [facility] [employer] Address [address] [place] [address] Care Team Providers Care Clinic Specialist Name Role Phone Eladio Lomas MD Unavailable Breanna Crow PA-C Unavailable [phone] Encounter Details Date Type Department Care Team (Late st Contact Info) Description 10/19/2021 Transcribed Document [facility] [place] [facility] [place] [address] ProviderJailyn MD [address] [place] [id number] Social History Tobacco Use Types Packs/Day Years Used Date Smoking Tobacco: Never Assessed Sex and Gender Information Value Date Recorded Sex Assigned at Male 10/27/2021 8:22 PM CDT Legal Sex Male 8:22 PM CDT Gender Identity Male 10/27/2021 8:22 PM CDT Sexual Orientation Not on file documented as of this encounter Miscellaneous Notes * Cerner Conversion Note - Jailyn Lira MD - 10/19/2021 1:08 PM CDT UM Authorization Entered On: 10/19/2021 13:08 EDT Performed On: 10/19/2021 13:08 EDT by KEI JEAN-BAPTISTE Application Support Developer Primary Insurance Authorization Authorization and Policy Numbers : Insurance 1 Health Plan: [employer] PPO Policy Number: [id number] Authorization Number: Insurance Primary Name : [employer] PPO [id number] Authorization Status-Primary : Denied Reference Number-Primary : [id number] Authorized Service Begin Date-Primary : 10/15/2021 EDT Authorization Comments-Primary : Rec faxed Denial from [employer] 10/19/21 Placed in tray on JJs desk Historical Authorization Comments-Primary : Comment 1: [employer] PPO auth still pending per availity (JUANITA HUGO, RN-Utilization Review 10/19/2021 11:01) Comment 2: Clinicals faxed via [employer] (Natalie Lauren, Rn-Utilization Review 10/15/2021 09:30) Comment 3: [employer] CHOICE PPO auth pending per Star note. (JUANITA HUGO, RN-Utilization Review 10/15/2021 09:18) KEI JEAN-BAPTISTE, Application Support Developer - 10/19/2021 13:08 EDT Electronically signed by [facility] Conversion Rail Tractor Operator Cerner at 08/17/2022 6:16 PM CDT documented in this encounter Plan of Treatment Not on file documented as of this encounter Visit Diagnoses Not on filedocumented in this encounter Care Teams Clinic Specialist Relationship Specialty Start Date End Date Eladio Lomas MD [address] [facility] [place], [place] [address] Medical Oncologist Hematology and Oncology 07/08/22 Breanna Crow PA-C [address] [facility] [address] [place] [address] Physician Contact Assembler Oncology 07/08/22 documented as of this encounter
--- OUTSIDE RECORDS SUMMARY | 2024-10-22 10:49 | XMS_ITS | Encounter Summary ---
Author Organization [employer] Address [address] [place] [address] Care Team Providers Care Cover Remover Name Role Phone Eladio Lomas MD Unavailable Breanna Crow PA-C Unavailable [phone] Encounter Details Date Type Department Care Team (Late st Contact Info) Description 10/14/2021 Transcribed Document [facility] [place] [facility] [place] [address] ProviderJailyn MD [address] [place], [place] [id number] Social History Tobacco Use Types Packs/Day Years [...] MD - 10/14/2021 6:20 PM CDT ED Triage Entered On: 10/14/2021 18:33 EDT Performed On: 10/14/2021 18:31 EDT by UGO FAN, FRONT MAKER LOCKSTITCH Triage Across the Room Chief Complaint : RLE numbness x1 week. Triage Date/Time : 10/14/2021 18:31 EDT UGO FAN RN - 10/14/2021 18:31 EDT DCP GENERIC CODE Tracking Acuity : 3 - Urgent Tracking Group : [facility] ED [place] UGO FAN RN - 10/14/2021 18:31 EDT Mode of Arrival : Wheelchair Transported to ED by : Private vehicle To Room Via : Wheelchair Accompanied By : Spouse ED Vital Signs : Document Height & Weight : Document ED Allergies : Document ED Reason for Visit : Document Tetanus Immunization : Greater than 5 years Isotope Hydrologist Needed : No UGO FAN RN - 10/14/2021 18:31 EDT Infectious Disease History Does patient have symptoms of COVID-19? : No Tested for COVID19 in the past 14 days : No, Patient stated Does the Patient state known exposure to a COVID-19 positive case in the last 14 days? : No Patient Vaccinated for COVID-19 : Fully vaccinated UGO FAN RN - 10/14/2021 18:31 EDT Infectious Disease Risk Screening Grid Cough < 2 wks of unknown origin : NO Cough > 2 weeks : NO Blood in Sputum : NO Fever or self-reported Fever : NO Rash of unknown origin : NO Headache : NO Stiff neck : NO Night Sweats : NO Unexplained Weight Loss : NO Diarrhea (3 episode per day) : NO UGO FAN RN - 10/14/2021 18:31 EDT Physical contact outside [place] in the last 30 days : No Hospitalized in [place] : No Infectious Disease History : Chicken pox/Shingles, Measles INF Disease TB Screening Calc : 0 INF Disease Recent Travel Calc : 0 UGO FAN RN - 10/14/2021 18:31 EDT Vital Signs ED Temperature Source : Oral Temperature Mode : Fahrenheit Temperature, Fahrenheit : 98.4 Deg F Clinical Temperature, C : 36.9 Deg C Oxygen Therapy Mode : Room air Peripheral Pulse Rate : 86 bpm Respiratory Rate : 18 Breaths/Min Systolic Blood Pressure : 158 mmHg (HI) Diastolic Blood Pressure : 71 mmHg Oxygen Saturation : 97 % UGO FAN RN - 10/14/2021 18:31 EDT Allergy (As Of: 10/14/2021 18:33:48 EDT) Allergies (Active) contrast media (iodine-based) Estimated Onset Date: Unspecified ; Created By: Miranda Flor RN; Reaction Status: Active ; Category: Drug ; Substance: contrast media (iodine-based) ; Type: Allergy ; Updated By: Miranda Flor RN; Reviewed Date: 12/01/2017 11:41 EDT Shrimp Estimated Onset Date: Unspecified ; Created By: UGO FAN RN; Reaction Status: Active ; Category: Food ; Substance: Shrimp ; Type: Allergy ; Updated By: UGO FAN RN; Reviewed Date: 10/14/2021 18:31 EDT Diagnosis Control ED (As Of: 10/14/2021 18:33:48 EDT) Problems(Active) Mitral valve prolapse (SNOMED CT :[id number] ) Name of Problem: Mitral valve prolapse ; Recorder: Miranda Flor RN; Confirmation: Confirmed ; Classification: Patient Stated ; Code: [id number] ; Contributor System: Flinja ; Last Updated: 11/28/2017 15:14 EDT ; Life Cycle Date: 11/28/2017 ; Life Cycle Status: Active ; Vocabulary: SNOMED CT Diagnoses(Active) Paresthesia Date: 10/14/2021 ; Diagnosis Type: Reason For Visit ; Confirmation: Complaint of ; Clinical Dx: Paresthesia ; Classification: Medical ; Clinical Service: Emergency medicine ; Code: PNED ; Probability: 0 ; Diagnosis Code: [id number] ED Height and Weight Height Source : Stated Height Entry Format : [place] Height, Feet : 5 ft(Converted to: 152 cm, 60 Inch) Height, Inches : 6 Inch(Converted to: 0 ft 6 Inch, 15.24 cm) Clinical Height : 167.64 cm Weight Source, ED : Critical estimated dosing weight Weight Entry Format : [place] Weight, Pounds : 180 lb Clinical Dosing Weight : 81.82 kg Body Surface Area (BSA) : 1.91 m2 Body Mass Index : 29.1 kg/m2 (HI) [place] Body Weight (IBW) : 62.88 kg UGO FAN RN - 10/14/2021 18:31 EDT Patient/Family Isotope Hydrologist Communication Primary Language : Gambian UGO FAN RN - 10/14/2021 18:31 EDT documented in this encounter Plan of Treatment Not on file documented as of this encounter Visit Diagnoses Not on filedocumented in this encounter Care Teams Cover Remover Relationship Specialty Start Date End Date Eladio Lomas MD [facility] [place] [id number] Medical Oncologist Hematology and Oncology 07/08/22 Breanna Crow, PARebelC [address] [address] Physician Manager Of Disaster Recovery Oncology 07/08/22 documented as of this encounter
--- OUTSIDE RECORDS SUMMARY | 2024-10-22 10:49 | XMS_ITS | Encounter Summary ---
Author Organization [employer] Address [address] [place] [address] Care Team Providers Care Car Ferrier Name Role Phone Eladio Lomas MD Unavailable Breanna Crow PA-C Unavailable [phone] Encounter Details Date Type Department Care Team (Late st Contact Info) Description 10/15/2021 Transcribed Document [facility] [place] [facility] [place] [address] ProviderJailyn MD [address] [place] [address] Social History Tobacco Use Types [...] Note - Jailyn Lira MD - 10/15/2021 12:00 AM CDT Patient: SARAH HU Age: 71 years Sex: Male : 1950 Associated Diagnoses: Leg weakness; CLL (chronic lymphocytic leukemia); Hypertension; Elevated d-dimer Author: ANGELIQUE WHITMAN MD Basic Information Time seen: Date & time 10/15/2021 00:00:00, Voice recognition / family services worker technology used for some documentation in this chart in attempt to mitigate substantial inefficiencies created by this electronic health record technology. As a result, there may be some typos and/or non-sensical language introduced into the chart that either are overlooked in editing/review and/or that I am unable to correct as patient care needs require me to prioritize my attention to bedside patient care rather than electronic documentation.. . History source: Patient. Arrival mode: Private vehicle. History limitation: None. Additional information: Chief Complaint from Nursing Triage Note : Chief Complaint 10/14/2021 18:31 EDT Chief Complaint RLE numbness x1 week. . History of Present Illness Mr. Hu, presents via POV to room #6, with in attendance. Patient reports that he has CLL and is currently on the care of Dr. Eladio Lua. Patient reports that he was recently diagnosed with chickenpox and has been successfully treated with that and is just having scarring of his tissue. Patient reports that he is noted that his right lower extremity has been tingling and has now progressed to the point where he is unable to weight-bear on that lower extremity secondary to numbness and inability to control the lower extremity from the knee down. He denies any focal or lateralizing neurologic symptoms other than his lower extremity. He denies any recent trauma. He does state that his symptoms started shortly after mowing the grass. He denies any tick bites or insect stings. His foot is now kind of tender, red and swollen. The patient presents with right, lower extremity, weakness and paresthesia. The onset was 1 weeks ago. The course/duration of symptoms is constant and worsening. Location: Right lower extremity. The character of symptoms is weakness and altered sensation. The degree at onset was moderate. The degree at maximum was moderate. The degree at present is moderate. Risk factors consist of none. Prior episodes: none. Therapy today: none. Associated symptoms: none. Baseline status: ambulatory. Additional history: See note above.. Review of Systems Constitutional symptoms: No fever, no chills, no weakness, no fatigue, no decreased activity. Skin symptoms: No jaundice, no rash, no pruritus, no abrasions, no petechiae. Eye symptoms: Vision unchanged. ENMT symptoms: No sore throat, no nasal congestion. Respiratory symptoms: No shortness of breath, no orthopnea, no cough. Cardiovascular symptoms: No chest pain, no palpitations. Gastrointestinal symptoms: No abdominal pain, no nausea, no vomiting, no diarrhea, no constipation, no rectal bleeding. Genitourinary symptoms: No dysuria, no hematuria, no discharge, no testicular pain. Musculoskeletal symptoms: No back pain, no Muscle pain, no Joint pain. Neurologic symptoms: Numbness, weakness, no headache, no dizziness, no altered level of consciousness, no tingling. Psychiatric symptoms: No anxiety, no depression. Endocrine symptoms: No polyuria, no polydipsia. Hematologic/Lymphatic symptoms: Bleeding tendency negative, bruising tendency negative, no petechiae. Allergy/immunologic symptoms: No recurrent infections, no impaired immunity. Health Status Allergies: Allergic Reactions (Selected) Severity Not Documented Contrast media (iodine-based)- No reactions were documented. Shrimp- No reactions were documented.. Medications: (Selected) Prescriptions Prescribed lactobacillus acidophilus oral capsule: 1 Cap, Oral, BID, for 7 Day(s), 14 Cap, 0 Refill(s) Documented Medications Documented allopurinol 300 mg oral tablet: 1 Tab, Oral, Daily, 0 Refill(s). Immunizations: Unknown. Past Medical/ Family/ Social History Medical history Cardiovascular: MVP. Cancer: leukemia, CLL. Surgical history: R & L HRT CATH WINJX HRT ART& L VENTR IMG ([id number]).. Family history: Not significant. Social history: Social & Psychosocial Habits No Data Available . Physical Examination Vital Signs Vital Signs/Vital Measures 10/14/2021 18:31 EDT Systolic Blood Pressure 158 mmHg HI Diastolic Blood Pressure 71 mmHg Temperature Source Oral Temperature Mode Fahrenheit Temperature, Fahrenheit 98.4 Deg F Clinical Temperature, C 36.9 Deg C Peripheral Pulse Rate 86 bpm Respiratory Rate 18 Breaths/Min Oxygen Saturation 97 % Oxygen Therapy Mode Room air . Measurements 10/14/2021 18:31 EDT Height Source Stated Height Entry Format [place] Height/Length, [place] (ft) 5 ft Height/Length [place] 6 Inch CLINICALHEIGHT 167.64 cm [place] Body Weight 62.88 kg Weight Source, ED Critical estimated dosing weight Weight Entry Format [place] Weight Mauritian lb 180 lb CLINICALWEIGHT 81.82 kg Body Surface Area (BSA) 1.91 m2 Body Mass Index 29.1 kg/m2 HI . Oxygen Saturation 10/14/2021 18:31 EDT Oxygen Saturation 97 % . General: Alert, no acute distress, well nourished, calm, cooperative, well hydrated. Skin: Warm, dry, pink, no pallor, no rash, normal for ethnicity, Not cyanotic, Head: Normocephalic, atraumatic. Neck: Supple, trachea midline, no tenderness. Eye: Pupils are equal, round and reactive to light, extraocular movements are intact, normal conjunctiva, Sclera: not icteric. Ears, nose, mouth and throat: Oral mucosa moist. Cardiovascular: Regular rate and rhythm, No murmur, Normal peripheral perfusion, No edema. Respiratory: Lungs are clear to auscultation, respirations are non-labored, breath sounds are equal, Symmetrical chest wall expansion. Chest wall: No tenderness, No deformity. Back: Nontender, Normal range of motion. Musculoskeletal: Normal ROM, normal strength, no tenderness, no swelling. Gastrointestinal: Soft, Nontender, Non distended, Normal bowel sounds, No organomegaly. Genitourinary: Exam deferred. Neurological: Alert and oriented to person, place, time, and situation. Lymphatics: No lymphadenopathy. Psychiatric: Cooperative, appropriate mood & affect. Medical Decision Making Documents reviewed: Emergency department nurses' notes, emergency department records, prior records. Orders Include Previous Orders (Selected) Inpatient Orders Ordered Admit to Inpatient: ED Fall Risk Documented: Ordered (Exam Completed) CR Foot Comp Min 3 Vws RT: CR Knee 3 Vws RT: CT Spine Lumbar WO: Cancelled (Canceled) .Automated Differential: Completed .Differential Manual: Broset Violence Assessment: CBC w/ Auto Diff: CK Creatine Kinase: CMP Comprehensive Metabolic Panel: CRP C-Reactive Protein: D Dimer Quantitative: ED Adult Fall Risk Assessment: ED Adult Triage: ED C-SSRS: ED Clinical Reconciliation: ED disease intervention specialist: ESR Sedimentation Rate Auto: Saline Lock Insert: . Results review: Lab results : Lab Results 10/15/2021 0:19 EDT Sodium Level 142 mmol/L Potassium Level 3.4 mmol/L LOW Chloride Level 105 mmol/L Carbon Dioxide Level 27 mmol/L Anion Gap 13 Glucose Level 100 mg/dL Blood Urea Nitrogen 21 mg/dL Creatinine Level 0.74 mg/dL eGFR >60 mL/min/1.73m2 eGFR NonAfrican >60 mL/min/1.73m2 Bun/Creatinine 28.4 HI Calcium Level 8.4 mg/dL LOW Protein Total 6.4 Gram/dL Albumin Level 3.6 Gram/dL Globulin 2.8 Gram/dL A/G Ratio 1.3 Bilirubin Total 0.5 mg/dL Alk Phos 84 Units/Liter AST 26 Units/Liter ALT 38 Units/Liter CRP 0.5 mg/dL CK 53 Units/Liter Sed Rate Auto 5 mm/Hr D Dimer Quant 1,039 ng/mL HI . Radiology results: Computed tomography, interpretation: Preliminary Report NAME: SARAH HU / SEX: 1950 / Male MRN / ACC#: [id number] / [id number] ORDERING PHYSICIAN: Angelique Whitman. EXAM REQUESTED: [id number]--[id number] LUMBAR SPINE W/O CONTRAST FACILITY: [facility] DATE: 10/15/2021 RADIOLOGIST NAME: MD Lim Frank TECHNIQUE: null CLINICAL HISTORY: Rt. sided lower extremity numbness x 1 day COMPARISON: null FINDINGS: CT Lumbar Spine WO Contrast COMPARISON: None FINDINGS: No acute fracture or malalignment. Diffuse disc bulges at all lumbar levels. Disc space narrowing at T12-L1 and L1-L2. No severe stenosis. Mild multilevel degenerative endplate spurring. Unremarkable soft tissues. Calcifications in the right adrenal gland. Atherosclerosis. IMPRESSION: IMPRESSION: No acute findings. Degenerative changes in the lumbar spine. Nonemergent/incidental findings in the report. , Eastern Time FW M. Radiology results: X-ray, Right knee and foot, emergency physician interpretation: No acute bony abnormalities, normal joint spaces no subluxations or dislocations and normal soft tissue.. 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 - 10/15/2021 03:04:00 , CANDIDA UGO, DO-INT, [facility], phone call, recommends inpatient medsurg. Plan Condition: Stable. Limitations: Limited activity. Counseled: Patient, Family, Regarding diagnosis, Regarding diagnostic results, Regarding treatment plan, Patient indicated understanding of instructions. documented in this encounter Plan of Treatment Not on file documented as of this encounter Visit Diagnoses Not on filedocumented in this encounter Care Teams Car Ferrier Relationship Specialty Start Date End Date Eladio Lomas MD [address] [facility] [address], [place] [address] Medical Oncologist Hematology and Oncology 07/08/22 Breanna Crow, PACecilia [address] [place] [address] Physician Fish Receiver Oncology 07/08/22 documented as of this encounter
--- OUTSIDE RECORDS SUMMARY | 2024-10-22 10:49 | XMS_ITS | Encounter Summary ---
Author Organization [employer] Address [address] [place] [address] Care Team Providers Care Tugboat Captain Name Role Phone Eladio Lomas MD Unavailable Breanna Crow PA-C Unavailable Encounter Details Date Type Department Care Team (Late st Contact Info) Description 10/15/[address] [facility] [place] Medicine [facility] [place] [address] ProviderJailyn MD [address] [place], [place] [id number] Social History Tobacco Use Types Packs/Day Years Used Date Smoking Tobacco: Never Assessed Sex and Gender Information Value Date Recorded Sex Assigned at Male 10/27/2021 8:22 PM CDT Legal Sex Male 8:22 PM CDT Gender Identity Male 10/27/2021 8:22 PM CDT Sexual Orientation Not on file documented as of this encounter Miscellaneous Notes * Cerner Conversion Note - Historical ProviderMD - 10/15/2021 8:30 AM CDT Attempt to Treat, PT Entered On: 10/15/2021 15:55 EDT Performed On: 10/15/2021 8:30 EDT by Christiano Magana, Physical Therapist Attempt to Treat Unable to Treat Due To : Patient on hold Inability to Treat Comment : RN held due to Pt having a DVT. Christiano Magana, Physical Therapist - 10/15/2021 15:55 EDT Electronically signed by [facility] Conversion Sample Coordinator Cerner at 08/17/2022 5:55 PM CDT documented in this encounter Plan of Treatment Not on file documented as of this encounter Visit Diagnoses Not on filedocumented in this encounter Care Teams Tugboat Captain Relationship Specialty Start Date End Date Eladio Lomas MD [address] [facility] [address] [place] [address] Medical Oncologist Hematology and Oncology 07/08/22 Breanna Crow PA-C [address] [address] Physician Dock Builder Oncology 07/08/22 documented as of this encounter
--- OUTSIDE RECORDS SUMMARY | 2024-10-22 10:49 | XMS_ITS | Encounter Summary ---
Author Organization [facility] [employer] Address [address] [place] [address] Care Team Providers Care Dental Sales Representative Name Role Phone Eladio Lomas MD Unavailable Breanna Crow PA-C Unavailable [phone] Encounter Details Date Type Department Care Team (Late st Contact Info) Description 01/01/2022 Transcribed Document [facility] [place] Family Medicine [facility] [place] [address] ProviderJailyn MD [address] [place] [address] Social History Tobacco Use Types [...] Lira MD - 01/01/2022 12:58 PM CDT [address] [address] SARAH HU :1950 Visit Time:01/01/2022 [...] for follow-up date and appointment time Activity: Salvo dressing. Do not remove. May shower with [...] MD-ORT When 01/14/2022 11:00 AM EDT Where: [address] [place] [address] [address] [place] [address]- Medications What How Much When Instructions Next Dose acetaminophen-oxyCODONE (Percocet 7.5/ 325 oral tablet) 1 Tablet(s) Oral Three Times A Day as needed for for pain Pickup at [facility] acetaminophen (Tylenol 325 mg oral tablet) 2 Tablet(s) Oral Every 4 Hours as needed for Pain (Mild 1-3) ergocalciferol (ergocalciferol 50 mcg (2000 intl units) oral capsule) 1 Capsule(s) Oral Every Day Duration: 14 Day(s) multivitamin (Multiple Vitamins oral tablet) 1 Tablet(s) Oral Every Day valACYclovir (Valtrex 1 g oral tablet) 1 Tablet(s) Oral Every Day Pharmacy Information [facility]: [address] [place], [place] [id number] [phone] Take your medications faithfully. Do NOT skip [...] these instructions at home: Medicines ??? Take xgob-hrk-qgzmnkf and prescription medicines as told by your [...] keep your urine pale yellow. ? Take suvk-zjt-mzkhxbs or prescription medicines. ? Eat foods that [...] and water are not available, use hand health coordinator. ? Change your dressing as told by [...] safe to drive. General instructions ??? Take iupp-iqw-rjtebpx and prescription medicines only as told by [...] provider. Document Revised: 08/06/2020 Document Reviewed: 08/06/2020 [employer] Patient Education ?? 2021 [employer] Laminectomy, Care After This sheet gives [...] these instructions at home: Medicines ??? Take mrqd-scc-dbwfizn and prescription medicines only as told by [...] keep your urine pale yellow. ? Take yvir-suv-rykhcyu or prescription medicines. ? Eat foods that [...] and water are not available, use hand health coordinator. ? Change your dressing as told by [...] provider. Document Revised: 11/12/2019 Document Reviewed: 11/12/2019 [employer] Patient Education ?? 2021 [employer]. Emergency Awareness and Preventative Care STROKE is [...] Assistance with quitting is available by contacting 1-075-WKZP-NOW. This is a free resource providing counseling, [...] was given the opportunity to ask questions. Patient/Binder Cutter Hand Name: Patient/Binder Cutter Hand Signature: Relationship to Patient: Clinician/Hospital Binder Cutter Hand Signature: Date: documented in this encounter Plan of Treatment Not on file documented as of this encounter Visit Diagnoses Not on filedocumented in this encounter Care Teams Dental Sales Representative Relationship Specialty Start Date End Date Eladio Lomas MD [address] [facility] [address] [place] [address] Medical Oncologist Hematology and Oncology 07/08/22 Breanna Crow PA-C [address] [facility] [address] [place] [address] Physician Track Dresser Oncology 07/08/22 documented as of this encounter
--- OUTSIDE RECORDS SUMMARY | 2024-10-22 10:49 | XMS_ITS | Encounter Summary ---
Author Organization [facility] In iatives Address [address] [place] [address] [address] Team Prov[address] Care [address] Freight Conductor Name Role Phone Eladio Lomas MD Unavailable Breanna Crow PA-C Unavailable [phone] Encounter Details Date Type Department Care Team (Late st Contact Info) Description 01/01/2022 Transcribed Document [facility] [place] [address] ProviderJailyn MD [address] [place] [address] Social History Tobacco Use Types [...] 01/01/2022 11:05 AM CDT [facility] Main OR IntraOp Summary Primary Physician: GARCIA WORKMAN MD-ORT Finalized Date/Time: 01/01/22 12:22:25 Pt. Name: CORBIN HU /Sex: 1950 Male Med Rec #: [id number] Physician: GARCIA WORKMAN MD-ORT Financial #: [id number] Pt. Type: O Room/Bed: [facility]/ Admit/Disch: 01/01/22 09:26:00 - Institution: [facility] [place] IntraOp Case Attendance Entry 1 Entry 2 Entry 3 Case Attendee GARCIA WORKMAN MD-ZAC GAMINO, Susannah MCINTOSH Jachob, CRNA [email or web address] Role Performed Surgeon/Proceduralist, BOWLING ALLEY OPERATOR/Nurse Chip Loft Worker BOWLING ALLEY OPERATOR/Nurse Chip Loft Worker First Time In 01/01/22 10:42:00 01/01/22 10:42:00 01/01/22 10:42:00 Time Out 01/01/22 11:49:00 01/01/22 11:49:00 01/01/22 11:49:00 Procedure Lumbar Laminectomy Lumbar Laminectomy Lumbar Laminectomy Other Attendee Superficial Wound Closed By: Last Modified By: SAMMIE PEREZ, SAMMIE VARNER, SAMMIE VARNER, SHARYN 01/01/22 11:49:14 01/01/22 11:49:14 01/01/22 11:49:14 Entry 4 Entry 5 Entry 6 Case Attendee SAMMIE PEREZ, Lea Charles, RN Paulina Joseph, Depot Agent Role Performed Dean Of Girls, First Dean Of Girls, Second Scrub, First Time In 01/01/22 10:42:00 01/01/22 10:42:00 01/01/22 10:42:00 Time Out 01/01/22 11:49:00 01/01/22 11:49:00 01/01/22 11:49:00 Procedure Lumbar Laminectomy Lumbar Laminectomy Lumbar Laminectomy Other Attendee Superficial Wound Closed By: Last Modified By: SAMMIE PEREZ, SAMMIE VARNER, SAMMIE VARNER RN 01/01/22 11:49:14 01/01/22 11:49:14 01/01/22 11:49:14 Entry 7 Entry 8 Entry 9 Case Attendee Layla Padilla, CHRISTOFER ARDON PA-UNK Dawes, Jessica T, Director Of Payroll Role Performed Scrub, Second Physician care assistant Cancer Registry Coordinator Time In 01/01/22 10:42:00 01/01/22 10:42:00 01/01/22 10:42:00 Time Out 01/01/22 11:49:00 01/01/22 11:49:00 01/01/22 11:49:00 Procedure Lumbar Laminectomy Lumbar Laminectomy Lumbar Laminectomy Other Attendee Superficial Wound Closed By: Last Modified By: SAMMIE PEREZ, SAMMIE VARNER, RN SAMMIE PEREZ, SHARYN 01/01/22 11:49:14 01/01/22 11:49:14 01/01/22 11:49:14 [facility] IntraOp Case Attendance Audit 01/01/22 11:49:14 Implementation Lead: SAM Modifier: LONGGA 1 <+> Time In 1 <+> Time Out 1 <*> Procedure Lumbar Laminectomy 2 <+> Time In 2 <+> Time Out 2 <*> Procedure Lumbar Laminectomy 3 <+> Time In 3 <+> Time Out 3 <*> Procedure Lumbar Laminectomy 4 <+> Time In 4 <+> Time Out 4 <*> Procedure Lumbar Laminectomy 5 <+> Time In 5 <+> Time Out 5 <*> Procedure Lumbar Laminectomy 6 <+> Time In 6 <+> Time Out 6 <*> Procedure Lumbar Laminectomy 7 <+> Time In 7 <+> Time Out 7 <*> Procedure Lumbar Laminectomy 8 <+> Time In 8 <+> Time Out 8 <*> Procedure Lumbar Laminectomy 9 <+> Time In 9 <+> Time Out 9 <*> Procedure Lumbar Laminectomy 01/01/22 10:34:07 Implementation Lead: SAM Modifier: LONGGA <+> 1 Procedure 2 <*> Procedure Lumbar Laminectomy 3 <*> Procedure Lumbar Laminectomy 4 <*> Procedure Lumbar Laminectomy 5 <*> Procedure Lumbar Laminectomy 6 <*> Procedure Lumbar Laminectomy 7 <*> Procedure Lumbar Laminectomy 8 <*> Procedure Lumbar Laminectomy 9 <*> Procedure Lumbar Laminectomy [facility] IntraOp Case Times Entry 1 Patient In Room Time 01/01/22 10:42:00 Out Room Time 01/01/22 11:49:00 Anesthesia Start Time 01/01/22 10:42:00 Stop Time 01/01/22 11:49:00 Anesthesia Ready 01/01/22 10:42:00 Surgery / Procedure Times Start Time 01/01/22 11:05:00 Stop Time 01/01/22 11:41:00 Last Modified By: SAMMIE PEREZ RN 01/01/22 10:43:23 [facility] IntraOp Case Times Audit 01/01/22 11:49:13 Implementation Lead: LONGGA Modifier: LONGGA <+> 1 Out Room Time <+> 1 Stop Time <+> 1 Stop Time 01/01/22 11:07:50 Implementation Lead: LONGGA Modifier: LONGGA <+> 1 Start Time [facility] IntraOp Cautery Entry 1 ESU Identification Cautery Type Monopolar ESU ID Number [id number] ID Type Hospital Number Cautery Settings Cut Setting 35 Coag Setting 35 Bipolar Setting 20 ESU Grounding Pad Ground Pad Type Adult Grounding Pad Site Left thigh Grounding Pad Site LEFT POSTERIOR THIGH Comment Grounding Pad SAMMIE PEREZ RN Applied By Grounding Pad Site Intact Skin Condition Before Cautery Grounding Pad Site Unchanged Skin Condition After Cautery Last Modified By: SAMMIE PEREZ RN 01/01/22 11:10:17 [facility] IntraOp Cautery Audit 01/01/22 11:10:35 Implementation Lead: LONGGA Modifier: LONGGA 1 <*> Grounding Pad Applied By CHRISTOFER THORPE PA-UNK [facility] IntraOp Communication Entry 1 Communication To Family/Significant other Comment PROCEDURE STARTING Communication By SAMMIE PEREZ RN Date and Time 01/01/22 11:09:00 Last Modified By: SAMMIE PEREZ RN 01/01/22 11:09:38 [facility] IntraOp Counts Verification Entry 1 Procedure Lumbar Laminectomy Count Info Count Type Sponge, Sharps Counts Verification Baseline/pre-procedure Sequence Count Results Correct, surgeon notified Counts Performed By Count Performed By Layla Padilla PERCUSSION INSTRUCTOR (Scrub) Count Performed By SAMMIE PEREZ RN (RN) Last Modified By: SAMMIE PEREZ RN 01/01/22 10:31:22 [facility] IntraOp Counts Final Entry 1 Procedure Lumbar Laminectomy Final Count Info Count Type Sponge, Sharps Counts Verification Skin Closure/end of Sequence procedure Count Results Correct, surgeon notified Counts Performed By Count Performed By Layla Padilla CST (Scrub) Count Performed By SAMMIE PEREZ, RN (RN) Last Modified By: SAMMIE PEREZ RN 01/01/22 11:34:59 [facility] IntraOp Delays Entry 1 Delay Reason Other Duration 30 Minute(s) Comment PATIENT NOT READY IN PRE-OP Last Modified By: SAMMIE PEREZ RN 01/01/22 10:43:58 [facility] IntraOp Departure from OR Entry 1 Integumentary Assessment Integumentary WDL Assessment WDL Skin Description Dry (WDL with exeptions) Transfer/Handoff Transfer to PACU Phase I Handoff Method Bedside/Face to face Post-op Transport Bed (including Via specialty) Patient Transport SAMMIE PEREZ RN, Accompanied by LARRY GAMINO CRNA Last Modified By: SAMMIE PEREZ RN 01/01/22 11:35:17 [facility] IntraOp Dressing and Packing Entry 1 Type Dressing Location LUMBAR SPINE Wound Dressing Item Occlusive dressing, Skin Closure Glue Applied By CHRISTOFER THORPE PA-UNK Other Comments EXOFIN SKIN ADHESIVE, AQUACEL DRESSING Last Modified By: SAMMIE PEREZ RN 01/01/22 11:14:33 S[facility] IntraOp Fire Risk Assessment Entry 1 Fire Info Surgical Site or 0- No Incision Above the Xyphoid Open O2 Source 0- No (Mask or Cannula) Available Ignition 1- Yes (ESU, Laser, Light Source) Fire Risk 1 Assessment Score Fire Score Fire Risk Yes Assessment Complete Fire Risk SAMMIE PEREZ RN Assessment Verified By Fire Risk 01/01/22 10:31:00 Assessment Verified Date/Time Fire Risk High Risk Protocol Yes Implemented Standard Fire Yes Safety Precautions Followed Last Modified By: SAMMIE PEREZ RN 01/01/22 10:31:33 [facility] IntraOp General Case Civil Engineering Manager 1 Case Information OR OR 01 SJE Case Level 1 Room Verified Yes Wound Class 1 - Clean Specialty Neurosurgery Anesthesia Type General ASA Class 2 Diagnosis Preop Diagnosis STENOSIS L4-5 Postop Same As Preop Yes Postop Diagnosis STENOSIS L4-5 Wound Class Definitions Last Modified By: SAMMIE PEREZ RN 01/01/22 10:47:20 S[facility] IntraOp General Case Data Audit 01/01/22 10:47:20 Implementation Lead: SAM Modifier: LONGGA 1 <*> OR OR 04 SJE 1 <+> ASA Class 1 <+> Wound Class 1 <+> Anesthesia Type 1 <+> Postop Same As Preop 1 <+> Preop Diagnosis 1 <+> Postop Diagnosis 1 <+> Room Verified [facility] IntraOp Intraoperative Assessment Entry 1 Valid History / Yes Physical in Chart Preoperative Yes Checklist Reviewed/Evaluated Allergies Reviewed Yes Patient is Latex No Sensitive Isolation Not applicable Precautions Noted Level of WDL Consciousness (WDL = Alert, Oriented to Person, Place, and Time) Skin Assessment Yes Verified Present Upon IVs Arrival to OR Last Modified By: SAMMIE PEREZ RN 01/01/22 10:48:01 S[facility] IntraOp Intraoperative Equipment Entry 1 Type Equipment Equipment Equipment Anali Suction System ID Number 1 Setting MEDIUM Intraop Monitoring Antiembolic Devices Antiembolic Devices Sequential compression device, knee high Antiembolic Device Bilateral Location Antiembolic Device [id number] ID Number Scopes Photo/Video Documentation Last Modified By: SAMMIE PEREZ RN 01/01/22 11:11:14 S[facility] IntraOp Medication Admin Entry 1 Entry 2 Entry 3 Medication/Irrigant Marcaine 0.25% w/ thrombin 5000units Kenalog 40mg 1ml epinephrine 1:200,000 topical kit injection - [id number] 30ml vial - [id number] (recombinant) - [id number] Combo Med List Time Administered Route of LOCAL TOPICAL INJECTION Administration Dose Dose 10 1 Unit of Measure ml ml Volume 20ML QS Administered By GARCIA WORKMAN MD-VEROT GARCIA WORKMAN MD-VEROT GARCIA WORKMAN MD-ZAC Procedure Irrigation Irrigant Volume In Irrigant Volume Out Last Modified By: SAMMIE PEREZ RN LONGSWORTH, GARY, RN LONGSWORTH, GARY, RN 01/01/22 10:33:31 01/01/22 10:33:31 01/01/22 11:28:39 S[facility] IntraOp Medication Admin Audit 01/01/22 11:28:39 Implementation Lead: SAM Modifier: SAM <+> 3 Medication/Irrigant <+> 3 Route of Administration <+> 3 Administered By <+> 3 Dose <+> 3 Unit of Measure SJE IntraOp Patient Positioning Entry 1 Procedure Lumbar Laminectomy Body Position Prone Left Arm Position Secured on padded arm board Right Arm Position Secured on padded arm board Left Leg Position Uncrossed, parallel Right Leg Position Uncrossed, parallel Feet Uncrossed Yes Pressure Points Yes Checked Positioning Devices Maksim Table, Kory Frame, Safety Strap, Thighs, Arm Board, Head Rest, Pillows Positioning Device PRONE VIEW HEAD REST Comments USED BY ANESTH. PILLOWS UNDER LOWER LEGS, GEL PADS UNDER ARMS Positioned By SAMMIE PEREZ, SHARYN, LARRY GAMINO CRNA, CHRISTOFER THORPE PA-SYLVIA, GARCIA WORKMAN MD-ORT Position Verified Positioning Yes Verified by Anesthesia Positioning Yes Verified by Surgeon Last Modified By: SAMMIE PEREZ RN 01/01/22 11:13:00 SJE IntraOp Sign In Entry 1 Patient, Site, Yes Procedure Identified Surgical Consent Yes Confirmed Relevant Surgical Yes Documents Available Surgical Site N/A Marked by person performing procedure Anesthesia Machine Yes Check Completed Medication Checks Yes Completed Allergies Yes Airway Difficult Yes Airway/Aspiration Risk Difficult Yes Airway/Aspiration Intervention Equipment Available Blood Loss Risk No Blood Loss No Intervention Equipment Prepared and Ready Blood Identifiers Not applicable Verified Per Policy Hypothermia Risk Yes Warming Measures Yes Taken Last Modified By: SAMMIE PEREZ RN 01/01/22 10:31:58 SJE Intra Op Sign Out Entry 1 RN Confirmation Surgical Yes Procedure(s) Identified Instrument, Sponge Yes and Sharps Counts Correct/Documented Equipment Problems N/A Documented Specimen Labeled N/A Correctly Urinary Catheter N/A Documented in IView Wound Yes classification reviewed, verified and updated post case in both the General Case Data and Procedure segments [place] Patient Yes Recovery Concerns Reviewed with Anesthesia Provider, Surgeon and RN [place] Patient Yes Management Concerns Reviewed with Anesthesia Provider, Surgeon and RN Safety Checklist Yes Elements Complete? RN Sign Out SAMMIE PEREZ RN Signature RN Sign Out 01/01/22 11:38:00 Signature Date/Time Plan of Care Outcome - Fire Risk OUTCOME STATEMENT: Goal met Patient is free from injury related to surgical fire Plan of Care Outcome - Pt Positioning OUTCOME STATEMENT: Goal met Absence of signs and symptoms of positioning injury. Plan of Care Outcome - Skin Prep OUTCOME STATEMENT: Goal met Intraoperative care is consistent with measures to prevent infection Plan of Care Outcome - Xray/Images OUTCOME STATEMENT: Goal met Absence of observable signs or symptoms of radiation injury Plan of Care Outcome - Counts OUTCOME STATEMENT: Goal met Absence of signs and symptoms of injury related to extraneous objects Last Modified By: SAMMIE PEREZ RN 01/01/22 11:38:54 SJE IntraOp Skin Prep Entry 1 Procedure Lumbar Laminectomy Prescribed Yes Pre-Surgical Prep Completed Prep Area BACK Intraop Prep Integumentary WDL Assessment WDL Prep Agents Chloraprep Prep by Lea Degroot RN Hair Removal Methods No hair removal performed Last Modified By: SAMMIE PEREZ RN 01/01/22 11:13:20 S[facility] IntraOp Surgical Procedures Entry 1 Procedure Lumbar Laminectomy Additional RIGHT L4-5 LAMINECTOMY Procedure Description Primary Procedure Yes Primary Surgeon GARCIA WORKMAN MD-ORT Start 01/01/22 11:05:00 Stop 01/01/22 11:41:00 Anesthesia Type General Specialty Neurosurgery Wound Class 1 - Clean Last Modified By: SAMMIE PEREZ RN 01/01/22 11:38:39 S[facility] IntraOp Surgical Procedures Audit 01/01/22 11:41:50 Implementation Lead: LONGGA Modifier: LONGGA 1 <*> Procedure Lumbar Laminectomy 1 <+> Stop 01/01/22 11:38:39 Implementation Lead: LONGGA Modifier: LONGGA 1 <*> Procedure Lumbar Laminectomy 1 <*> Additional Procedure Description RIGHT L4-5 LAMINECTOMY, DISCECTOMY 01/01/22 11:07:55 Implementation Lead: LONGGA Modifier: LONGGA <+> 1 Start S[facility] IntraOp Temp Regulation Devices Entry 1 Temp Regulation Temperature Warm blankets Regulation Device Temperature Upper body Regulation Site Temperature LARRY GAMINO PAYAL, Regulation Device BOWLING ALLEY OPERATOR Applied by Last Modified By: SAMMIE PEREZ RN 01/01/22 11:13:36 S[facility] IntraOp Time Out Entry 1 Procedure to be Lumbar Laminectomy Performed Time Out Time Out Pause Time 01/01/22 11:04:00 All activity Yes suspended (unless life threatening emergency) Team Verbally Correct patient Confirms Information identity, Correct side and site are marked, Consent form is present and accurate, Agreement on the procedure to be done, Correct patient position, Relevant images/results properly labeled/appropriately displayed, Confirm antibiotics have been administered, Confirm the skin prep has dried, Confirm prosthesis/implant/devic e is present, Performed in location of procedure after prepped/draped, Performed before each procedure if multiple procedures Antibiotic Yes Prophylaxis Administered Or In Progress Within the Last 60 Minutes Beta Kiah N/A Administered Venous Yes Thromboembolism Prophylaxis Required Anticipated Critical Events Surgeon None expected Anesthesia Provider Patient specific concerns Nursing Assures Sterility of instruments, Equipment concerns or issues, Implant Availability Essential Imaging Yes Labeled and Displayed Last Modified By: SAMMIE PEREZ RN 01/01/22 11:07:43 SJE IntraOp X-Ray and Images Entry 1 X-Ray/Imaging Type Fluoroscopy Fluoroscopy Type C-Arm Site BACK Dewaxer Name Masha Sanders, Director Of Payroll Protective Devices Yes Used Last Modified By: SAMMIE PEREZ RN 01/01/22 11:13:53 Case Comments <None> Finalized By: SAMMIE PEREZ, RN Document Signatures Signed By: SAMMIE PEREZ RN 01/01/22 11:50 SAMMIE PEREZ RN 01/01/22 12:22 Unfinalized History Date/Time Username Reason for Unfinalizing Freetext Reason for Unfinalizing 01/01/22 12:21 [email or web address] Correct Documentation Electronically signed by Huy [facility] Conversion Outboard Motor Assembler Cerner at 08/17/2022 6:06 PM CDT documented in this encounter Plan of Treatment Not on file documented as of this encounter Visit Diagnoses Not on filedocumented in this encounter Care Teams Road Freight Conductor Relationship Specialty Start Date End Date Eladio Lomas MD [address] [address] Medical Oncologist Hematology and Oncology 07/08/22 Breanna Crow PA-C [address] [facility] [address] [place] [address] Physician City Councilman Oncology 07/08/22 documented as of this encounter
--- OUTSIDE RECORDS SUMMARY | 2024-10-22 10:49 | XMS_ITS | Encounter Summary ---
Author Organization [employer] In [facility] Address [address] [place] [address] Care Team Providers Care Plasterer Helper Name Role Phone Eladio Lomas MD Unavailable Breanna Crow PA-C Unavailable [phone] Encounter Details Date Type Department Care Team (Late st Contact Info) Description 10/16/2021 Transcribed Document [facility] [place] [facility] [place] [address] ProviderJailyn MD [address] [place] [address] Social History Tobacco Use Types [...] Note - Jailyn Lira MD - 10/16/2021 7:45 AM CDT Patient: SARAH HU Age: 71 years Sex: Male : 1950 Associated Diagnoses: None Author: GARCIA WORKMAN MD-ORT Results Review MRI lumbar spine-done on the symptomatic right side there is some lateral recess stenosis, but not very severe. It is possible it could cause some right-sided L5 nerve root compression, and some compressive symptoms. Decompressive laminectomy on the symptomatic right side L4-5 area may not help. I will reassess him again later this afternoon. MRI thoracic spine not yet done-spoke with nurse on the floor yesterday, they said they would reorder it. Nurse contacted me this morning stating that this MRI was not ordered, even though the verbal order was given. I will reorder it today. Looking for transverse myelitis. Spinal cord tumor, demyelinating disorder, etc. Somewhat of a bizarre pattern, mostly weakness, with very little change in sensation. Any chance any information could be gleaned by doing a chickenpox titer, to confirm that he does have a high antibody level suggestive of recent exposure I will infectious diseases make that decision. Steroids-I will allow infectious diseases and/or, neurology to make that decision. documented in this encounter Plan of Treatment Not on file documented as of this encounter Visit Diagnoses Not on filedocumented in this encounter Care Teams Plasterer Helper Relationship Specialty Start Date End Date Eladio Lomas MD [address] [place] [address] Medical Oncologist Hematology and Oncology 07/08/22 Breanna Crow PA-C [address] [facility] [address] [place] [address] Physician A/C Tech Oncology 07/08/22 documented as of this encounter
--- OUTSIDE RECORDS SUMMARY | 2024-10-22 10:49 | XMS_ITS | Encounter Summary ---
Author Organization [employer] [facility] Address [address] [place] [address] Care Team Providers Care Lining Printer Name Role Phone Eladio Lomas MD Unavailable Breanna Crow PA-C Unavailable [phone] Encounter Details Date Type Department Care Team (Late st Contact Info) Description 10/16/2021 Transcribed Document [facility] [place] Medicine [facility] [place] [address] ProviderJailyn MD [address] [place] [address] Social History Tobacco Use Types [...] Note - Jailyn Lira MD - 10/16/2021 2:40 PM CDT Patient: SARAH HU Age: 71 Years Sex: Male : 1950 Subjective Date of service: 10/16/2021 Patient seen and examined at bedside with primary nurse. at bedside. Ultrasound right lower extremity yesterday revealed DVT. Patient was started on heparin drip then switched to Eliquis. Vital Signs T: 36.7 ??C TMIN: 36.3 ??C TMAX: 36.8 ??C HR: 82(Monitored) RR: 16 BP: 134/67 SpO2: 96% Oxygen Settings (Last) Oxygen Therapy Mode: Room air (10/15/21 15:42:00) Intake & Output Totals Last 24 Hours (7a-7a) Input Total: 1205.85 mL Output Total: 0 mL Balance: 1205.85 mL Physical exam: General: Alert and oriented, Mild distress. Eye: [...] lower motor neuron process.. Integumentary: Warm, Dry, [place]. Neurologic: Alert, Oriented, Cranial Nerves II-XII are grossly intact, Decreased sensation in an S1 distribution of the right leg. Decreased reflexes in right leg.. Psychiatric: Cooperative, Appropriate mood & affect. Assessment/Plan #Right lower extremity weakness and paresthesia CT lumbar spine unremarkable Consult neurology PT/OT #Elevated D-dimer Right lower extremity ultrasound revealed DVT #Elevated blood pressure Does not take any medication at home Continue to monitor with PRN meds #Hypokalemia Replace #CLL, in remission 10/16: Patient switched from heparin drip to Eliquis for DVT treatment. Ortho following. I discussed the patient with neuro who is following. Neuro start the patient on Solu-Medrol 250 mg twice daily with plan to transition to a prednisone taper once he is discharged. If his right leg does not improve with time, he may need to see neurosurgery or pain management for further treatment options. PT/OT consulted to evaluate for any rehab needs. However, evaluation was postponed awaiting for 24-hour after anticoagulation initiation. we will consult ID to see if there is any correlation in the setting of recent varicella. Disposition: Pending crm consultant recommendations and plan. May need rehab depending on PT/OT evaluation and clinical course. Discharge is answered at this time. VTE Prophylaxis - Medical Apixaban 10 mg, Oral, Tab, BID, order duration: 7 Day(s), Start 10/16/21 13:28:00 EDT, Stop 10/23/21 8:59:00 EDT (Wilberto Mayorga, PHYSICIAN-CLINIC) Medications acetaminophen-HYDROcodone 325 mg-5 mg oral tablet, [...] Test Name Test Result Date/Time Sodium Level 140 mmol/L 10/16/2021 04:00 EDT Potassium Level 4.0 mmol/L 10/16/2021 04:00 EDT Chloride Level 106 mmol/L 10/16/2021 04:00 EDT Carbon Dioxide Level 26 mmol/L 10/16/2021 04:00 EDT Anion Gap 12 10/16/2021 04:00 EDT Glucose Level 131 mg/dL (High) 10/16/2021 04:00 EDT Blood Urea Nitrogen 17 mg/dL 10/16/2021 04:00 EDT Creatinine Level 0.76 mg/dL 10/16/2021 04:00 EDT eGFR >60 mL/min/1.73m2 10/16/2021 04:00 EDT eGFR NonAfrican >60 mL/min/1.73m2 10/16/2021 04:00 EDT Bun/Creatinine 22.4 (High) 10/16/2021 04:00 EDT Calcium Level 8.7 mg/dL 10/16/2021 04:00 EDT Protein Total 6.0 Gram/dL (Low) 10/16/2021 04:00 EDT Albumin Level 3.6 Gram/dL 10/16/2021 04:00 EDT Globulin 2.4 Gram/dL 10/16/2021 04:00 EDT A/G Ratio 1.5 10/16/2021 04:00 EDT Bilirubin Total 0.6 mg/dL 10/16/2021 04:00 EDT Alk Phos 87 Units/Liter 10/16/2021 04:00 EDT AST 27 Units/Liter 10/16/2021 04:00 EDT ALT 33 Units/Liter 10/16/2021 04:00 EDT Magnesium Level 2.4 mg/dL 10/16/2021 04:00 EDT WBC 11.5 K/uL (High) 10/16/2021 04:00 EDT RBC 4.86 Million/uL 10/16/2021 04:00 EDT Hgb 14.3 Gram/dL 10/16/2021 04:00 EDT Hct 41.8 % 10/16/2021 04:00 EDT MCV 86.0 fL 10/16/2021 04:00 EDT MCH 29.4 pg 10/16/2021 04:00 EDT MCHC 34.2 Gram/dL 10/16/2021 04:00 EDT Platelet Count 247 K/uL 10/16/2021 04:00 EDT MPV 9.8 fL 10/16/2021 04:00 EDT RDW 13.2 % 10/16/2021 04:00 EDT Neut % 49.7 % 10/16/2021 04:00 EDT Neut # 5.71 K/uL 10/16/2021 04:00 EDT Lymph % 29.3 % 10/16/2021 04:00 EDT Lymph # 3.37 K/uL 10/16/2021 04:00 EDT [place] % 19.5 % (High) 10/16/2021 04:00 EDT [place] # 2.25 K/uL (High) 10/16/2021 04:00 EDT Eos % 0.4 % (Low) 10/16/2021 04:00 EDT Eos # 0.05 K/uL 10/16/2021 04:00 EDT Baso % 0.6 % 10/16/2021 04:00 EDT Baso # 0.07 K/uL 10/16/2021 04:00 EDT Slide Review No 10/16/2021 04:00 EDT IG# 0 x10(3)/uL 10/16/2021 04:00 EDT IG% 0 % 10/16/2021 04:00 EDT PT 10.8 Second(s) 10/16/2021 04:00 EDT INR 1.0 10/16/2021 04:00 EDT PTT Heparin 49.6 Second(s) 10/16/2021 04:00 EDT PTT Heparin 58.4 Second(s) 10/15/2021 22:15 EDT Procalcitonin <0.05 ng/mL 10/16/2021 04:00 EDT Electronically signed by [facility] Conversion Gravel Roofer Cerner at 08/17/2022 6:11 PM CDT documented in this encounter Plan of Treatment Not on file documented as of this encounter Visit Diagnoses Not on filedocumented in this encounter Care Teams Lining Printer Relationship Specialty Start Date End Date Eladio Lomas MD [address] [facility] [address] [place] [address] Medical Oncologist Hematology and Oncology 07/08/22 Breanna Crow PA-C [address] [facility] [address] [place] [address] Physician Woodyard Operator Oncology 07/08/22 documented as of this encounter
--- OUTSIDE RECORDS SUMMARY | 2024-10-22 10:49 | XMS_ITS | Encounter Summary ---
Author Organization [employer] In [employer] Address [address] [place] [address] Care Team Providers Care Assembly Line Leader Name Role Phone Eladio Lomas MD Unavailable Breanna Crow PA-C Unavailable [phone] Encounter Details Date Type Department Care Team (Late st Contact Info) Description 10/15/2021 Transcribed Document [facility] [place] Family Medicine [facility] [place] [address] ProviderJailyn MD [address] [place], [place] [id number] Social History Tobacco Use Types Packs/Day Years Used Date Smoking Tobacco: Never Assessed Sex and Gender Information Value Date Recorded Sex Assigned at Male 10/27/2021 8:22 PM CDT Legal Sex Male 8:22 PM CDT Gender Identity Male 10/27/2021 8:22 PM CDT Sexual Orientation Not on file documented as of this encounter Miscellaneous Notes * Cerner Conversion Note - Jailyn Lira MD - 10/15/2021 4:48 AM CDT Admission History, Adult Entered On: 10/15/2021 4:59 EDT Performed On: 10/15/2021 4:48 EDT by Tessy Gramajo RN-PATIENT CARE BEDSIDE NON-EXEMPT Advance Directive Patient has Advance Directive *Q : Yes, Advance Directive not with the patient Advance Directive Type : Living will Advance Directive Date : 11/28/2017 EDT Copy Advance Directive Verified/on Chart : No Tessy Garmajo RN-PATIENT CARE BEDSIDE NON-EXEMPT - 10/15/2021 4:48 EDT Anesthesia/Transfusion History Family History of Anesthesia Reaction : No prior transfusion(s) Blood Transfusion Acceptable to Patient : Yes Transfusion History : Prior anesthesia without reaction Family History of Anesthesia Reaction : None Tessy Gramajo RN-PATIENT CARE [facility] NON-EXEMPT - 10/15/2021 4:48 EDT Anticipated Discharge Needs Discharge To, Anticipated : Home Anticipated Discharge Needs at This Time : None Tessy Gramajo RN-PATIENT CARE [facility] NON-EXEMPT - 10/15/2021 4:48 EDT Education Topics, Admission Orientation DCP GENERIC CODE Advance Directives : Verbalizes understanding Assessment/Vital Signs : Verbalizes understanding Bed Control : Verbalizes understanding Call Light : Verbalizes understanding Confidentiality : Verbalizes understanding Diet/Room Service : Verbalizes understanding Fall Prevention : Verbalizes understanding Hand Hygiene : Verbalizes understanding Healthcare Provider Visit : Verbalizes understanding Patient Bill of Rights : Verbalizes understanding Patient Rights/Responsibilities : Verbalizes understanding Patient Safety : Verbalizes understanding Personal Privacy Code : Verbalizes understanding Rapid Response Initiated by Patient/Family : Verbalizes understanding Rounding : Verbalizes understanding Siderails use/risks : Verbalizes understanding Skin Precautions : Verbalizes understanding Television/Phone : Verbalizes understanding Visiting Policy : Verbalizes understanding Tessy Gramajo RN-PATIENT CARE [facility] NON-EXEMPT - 10/15/2021 4:48 EDT Functional Assessment Living Situation : Home Patient Lives With : Spouse Persons Assisting Patient at Home : Spouse Current Daily Living Assistance : None Mobility Assistance Prior to Admission : Independent KOWALSKI Hx Falls Immediate/Within 3 Months : Yes Current Home Treatments : None Home Equipment : None Tessy Gramajo RN-PATIENT CARE [facility] NON-EXEMPT - 10/15/2021 4:48 EDT General Info Arrived From : Emergency department Mode of Arrival on Unit : Wheelchair Legal Guardian : Spouse Want Family/Rep/Phys Notified of Admit : No Emergency Contact #1 : Ansley Hu Emergency Contact #1 Emergency Contact #1 Relationship : Emergency Contact #2 : . Emergency Contact #2 Phone Number : . Emergency Contact #2 Relationship : . Chief Complaint : RLE numbness x1 week. Information Obtained From : Patient Primary Language : Tristanian Communication Barrier : None Ply Bander Needed : No Tessy Gramajo RN-PATIENT CARE [facility] NON-EXEMPT - 10/15/2021 4:48 EDT Fall Risk Scales ABCs Fall Injury Risk Identification : None Injury Moderate to High Risk Interventions : Bed alarm on, Chair alarm on, Patient room close to nurses station, Specialty low bed, Supervise toileting as indicated, Wrist band (fall risk) on per policy KOWALSKI Hx Falls Immediate/Within 3 Months : Yes Kow[place]ki Secondary Diagnosis : No KOWALSKI Use of Ambulatory Aid : Bed rest/Nurse assist KOWALSKI IV Therapy or IV Access : Yes [place] Gait/Transferring : Impaired [place] Mental Status : Oriented to own ability [place] Fall Risk Score : 65 K[place]AL[place]I Fall Scale Risk Level : 46 or > High Risk [place] Fall Interventions : Adequate lighting, Assistive devices within reach, Bed in low position, Call device within reach, Fall prevention handout/education per facility policy, Frequent orientation to call device, Frequent orientation to surroundings, Hourly comfort/safety rounds, Non-slip footwear, Personal items within reach, Reinforced to call for assistance before getting out of bed, Room free of clutter/spills, Upper side-rails up, Wheels locked, Wires/Cords secured Fall Moderate to High Risk Interventions : Bed alarm on, Chair alarm on, Patient room close to nurses station, Supervise toileting as indicated, Transport methods appropriate to patient, Toileting schedule, Wrist band (fall risk) on Fall Risk Scale Calc Temp : 0 Tessy Gramajo RN-PATIENT CARE BEDSIDE NON-EXEMPT - 10/15/2021 4:48 EDT Health Histories Smoking Status : Never (less than 100 in lifetime; none in last 30 days) Smokeless Tobacco Status : Never Tessy Gramajo RN-PATIENT CARE BEDSIDE NON-EXEMPT - 10/15/2021 4:48 EDT Social History (As Of: 10/15/2021 04:59:07 EDT) Height and Weight, Clinical Dosing Height Source : Stated Height Entry Format : Harlan Height, Feet : 5 ft(Converted to: 152 cm, 60 Inch) Height, Inches : 6 Inch(Converted to: 0 ft 6 Inch, 15.24 cm) Clinical Height : 167.64 cm Weight Source : Bed scale Weight Entry Format : Harlan Clinical Dosing Weight : 59.69 kg Weight, Pounds : 131 lb Weight, Ounces : 5 oz Body Surface Area (BSA) : 1.67 m2 Body Mass Index : 21.2 kg/m2 [place] Body Weight : 63 kg Tessy Gramajo RN-PATIENT CARE BEDSIDE NON-EXEMPT - 10/15/2021 4:48 EDT Infectious Disease History Does patient have symptoms of COVID-19? : No Tested for COVID19 in the past 14 days : No, Patient stated Does the Patient state known exposure to a COVID-19 positive case in the last 14 days? : No Patient Vaccinated for COVID-19 : Fully vaccinated Tessy Gramajo RN-PATIENT CARE [facility] NON-EXEMPT - 10/15/2021 4:48 EDT Infectious Disease Risk Screening Grid Cough < 2 wks of unknown origin : NO Cough > 2 weeks : NO Blood in Sputum : NO Fever or self-reported Fever : NO Rash of unknown origin : NO Headache : NO Stiff neck : NO Night Sweats : NO Unexplained Weight Loss : NO Diarrhea (3 episode per day) : NO Tessy Gramajo RN-PATIENT CARE [facility] NON-EXEMPT - 10/15/2021 4:48 EDT Physical contact outside [place] in the last 30 days : No Hospitalized in Foreign Country : No Infectious Disease History : Chicken pox/Shingles, Measles INF Disease TB Screening Calc : 0 INF Disease Recent Travel Calc : 0 Tessy Gramajo RN-PATIENT CARE [facility] NON-EXEMPT - 10/15/2021 4:48 EDT Tetanus Immunization Status Previous Tetanus Immunizations : No qualifying data available. Tetanus Immunization : Greater than 5 years Tessy Gramajo RN-PATIENT CARE [facility] NON-EXEMPT - 10/15/2021 4:48 EDT Influenza Vaccine Asmt, Adult Previous Vaccines from Immunization Schedule : No qualifying data available. Influenza Immunization, Current Season : Yes Tessy Gramajo RN-PATIENT CARE [facility] NON-EXEMPT - 10/15/2021 4:48 EDT Pneumococcal Vaccine Previous Vaccines from Immunization Schedule : No qualifying data available. Pneumonia Immunization Received : Unknown Pneumococcal Risk Assessment < Age 65 : N/A- Patient 65 years of age or older Pneumococcal Vaccine Contraindications : No contraindications to pneumococcal vaccine Transplant Workup/Recent Transplant : No Order for Pneumococcal Vaccine : Declined Vaccination Tessy Gramajo RN-PATIENT CARE [facility] NON-EXEMPT - 10/15/2021 4:48 EDT Order Details Order Detail : N/A Patient Needs Meds Crushed/Liquid : No Tessy Gramajo RN-PATIENT CARE [facility] NON-EXEMPT - 10/15/2021 4:48 EDT Nutrition History Feeding Ability : Independent Adaptive Feeding Equipment : None Adaptive Feeding Equipment : Regular Eating Poorly Due to Decreased Appetite : Yes Unplanned Weight Loss in Past 3-6 Months : Unsure Unplanned Weight Loss Amount : Unsure Malnutrition Screening Tool Total(mal) : 5 Malnutrition Screening Tool Risk Level : Patient at risk Tessy Gramajo RN-PATIENT CARE [facility] NON-EXEMPT - 10/15/2021 4:48 EDT [place] Suicide Severity Rating Scale (C-SSRS) CSSRS Past Month Wish to be : No CSSRS Past Month Suicidal Thoughts : No CSSRS Lifetime Suicide Behavior : No Suicide Severity Rating Score : 0 Suicide Severity Rating : No Additional Care Required at this time Tessy Gramajo RN-PATIENT CARE [facility] NON-EXEMPT - 10/15/2021 4:48 EDT Psychosocial History Does Someone Depend on You for Care? : No Chronic/Terminal Illness w/Freq Visits : Yes Do You Have a History of the Following? : Patient denies history Currently in Unsafe Situation : No Do You Have a Support System? : Yes Tessy Gramajo RN-PATIENT CARE [facility] NON-EXEMPT - 10/15/2021 4:48 EDT Sleep Apnea Risk Assmt Hx of Obstructive Sleep Apnea Diagnosis : No Snore Loudly : No Tired, Fatigued, or Sleepy During Day : Yes Observed Stopping Breathing During Sleep : No Have/Are Being Treated for Hypertension : No BMI Greater Than 35 kg/m2 : No Age over 50 Years Old : Yes Neck Circumference Greater Than 40 cm : No Gender Male : Yes STOP-BANG Sleep Apnea Risk Level Score : 3 Tessy Gramajo RN-PATIENT CARE [facility] NON-EXEMPT - 10/15/2021 4:48 EDT Spiritual/Cultural Needs Any Spiritual/Cultural Needs or Requests : No Tessy Gramajo RN-PATIENT CARE [facility] NON-EXEMPT - 10/15/2021 4:48 EDT Valuables and Belongings Valuables and Belongings : Clothing, Personal items Clothing : Common streetwear Clothing Disposition : With family Personal Items : Wallet Personal Items Disposition : With family Tessy Gramajo RN-PATIENT CARE [facility] NON-EXEMPT - 10/15/2021 4:48 EDT documented in this encounter Plan of Treatment Not on file documented as of this encounter Visit Diagnoses Not on filedocumented in this encounter Care Teams Assembly Line Leader Relationship Specialty Start Date End Date Eladio Lomas MD [address] [facility] [address] [place] [address] Medical Oncologist Hematology and Oncology 07/08/22 Breanna Crow, PACecilia [address] [facility] [address] [place] [address] Physician Safe Technician Oncology 07/08/22 documented as of this encounter
--- OUTSIDE RECORDS SUMMARY | 2024-10-22 10:49 | XMS_ITS | Encounter Summary ---
Author Organization [facility] [employer] Address [address] [facility] [place] [address] Care Team Providers Care Residence Director Name Role Phone Eladio Lomas MD Unavailable Breanna Crow PA-C Unavailable [phone] Encounter Details Date Type Department Care Team (Late st Contact Info) Description 01/01/2022 Transcribed Document [facility] [place] [facility] [place] [address] ProviderJailyn MD [address] [place] [address] Social History Tobacco Use Types [...] Note - Jailyn Lira MD - 01/01/2022 12:30 PM CDT [facility] Main OR PreOp Summary Primary Physician: GARCIA WORKMAN MD-ORT Finalized Date/Time: 01/01/22 10:47:07 Pt. Name: SARAH HU /Sex: 1950 Male Med Rec #: [id number] Physician: GARCIA WORKMAN MD-ORT Financial #: [id number] Pt. Type: O Room/Bed: [facility]/ Admit/Disch: 01/01/22 09:26:00 - Institution: [facility] PreOp Case Times Entry 1 In Preop 01/01/22 07:55:00 Ready for Holding n/a Room Patient Ready for 01/01/22 10:10:00 Surgery Patient Out of Preop 01/01/22 10:37:00 Patient Out of n/a Holding Room Last Modified By: Ansley Lane RN 01/01/22 10:47:06 [facility] PreOp Case Times Audit 01/01/22 10:47:06 [facility] Worker: [id number] Modifier: [id number] <+> 1 Patient Out of Preop Finalized By: Ansley Lane, RN Document Signatures Signed By: Ansley Lane RN 01/01/22 10:47 Electronically signed by Huy [facility] Conversion Pest Control Pilot Cerner at 08/17/2022 6:02 PM CDT documented in this encounter Plan of Treatment Not on file documented as of this encounter Visit Diagnoses Not on filedocumented in this encounter Care Teams Residence Director Relationship Specialty Start Date End Date Eladio Lomas MD [address] [facility] [address] [place] [address] Medical Oncologist Hematology and Oncology 07/08/22 Breanna Crow, PA-C [address] [facility] [address] [place] [address] Physician Soaping Machine Back Tender Oncology 07/08/22 documented as of this encounter
--- OUTSIDE RECORDS SUMMARY | 2024-10-22 10:49 | XMS_ITS | Encounter Summary ---
Author Organization [employer] Address [address] [place] [address] Care Team Providers Care Three Dimensional Map Modeler Name Role Phone Eladio Lomas MD Unavailable Breanna Crow PA-C Unavailable [phone] Encounter Details Date Type Department Care Team (Late st Contact Info) Description 01/01/2022 Transcribed Document [facility] [facility] [place] [address] ProviderJailyn MD [address] [place] [address] Social History Tobacco Use [...] Lira MD - 01/01/2022 1:04 PM CDT Patient Education Materials Follows: Lumbar Diskectomy, Care After This sheet gives [...] these instructions at home: Medicines ??? Take yipp-ulo-swkirpy and prescription medicines as told by your [...] keep your urine pale yellow. ? Take hgjh-iah-dhehubk or prescription medicines. ? Eat foods that [...] and water are not available, use hand retail associate manager bilingual. ? Change your dressing as told by [...] Get up to take short walks every 1?2 hours. This is important to improve blood [...] safe to drive. General instructions ??? Take gtqt-cxa-oxbcojf and prescription medicines only as told by [...] provider. Document Revised: 08/06/2020 Document Reviewed: 08/06/2020 Elsevier Patient Education ? 2021 [employer] Inc. Laminectomy, Care After This sheet gives [...] these instructions at home: Medicines ??? Take kbgt-bot-suiwxnh and prescription medicines only as told by [...] keep your urine pale yellow. ? Take zufv-yrm-hebhlhn or prescription medicines. ? Eat foods that [...] and water are not available, use hand retail associate manager bilingual. ? Change your dressing as told by [...] Get up to take short walks every 1?2 hours. This is important to improve blood [...] provider. Document Revised: 11/12/2019 Document Reviewed: 11/12/2019 [employer]ite Patient Education ? 2021 [employer] documented in this encounter Plan of Treatment Not on file documented as of this encounter Visit Diagnoses Not on filedocumented in this encounter Care Teams Three Dimensional Map Modeler Relationship Specialty Start Date End Date Eladio Lomas MD [address] [facility] [address] [place] [address] Medical Oncologist Hematology and Oncology 07/08/22 Breanna Crow PA-C [address] [facility] [address] [place] [address] Physician Life Assurance Representative Oncology 07/08/22 documented as of this encounter
--- OUTSIDE RECORDS SUMMARY | 2024-10-22 10:49 | XMS_ITS | Encounter Summary ---
Author Organization [employer] Address [address] [place] [address] Care Team Providers Care Horticulturalist Name Role Phone Eladio Lomas MD Unavailable Breanna Crow PA-C Unavailable [phone] Encounter Details Date Type Department Care Team (Late st Contact Info) Description 10/15/2021 Transcribed Document [facility] [place] [facility] [place] [address] ProviderJailyn MD [address] [place] [address] Social History Tobacco Use Types [...] Lira MD - 10/15/2021 5:37 AM CDT Education-(VTE) / (DVT) Entered On: 10/15/2021 7:05 EDT Performed On: 10/15/2021 5:37 EDT by Tessy Gramajo RN-PATIENT CARE BEDSIDE [...] on filedocumented in this encounter Care Teams Horticulturalist Relationship Specialty Start Date End Date Eladio Lomas MD [address] [facility] [address] [address] Medical Oncologist Hematology and Oncology 07/08/22 Breanna Crow, PACecilia [address] [place] [address] Physician Stock Broker Oncology 07/08/22 documented as of this encounter
--- OUTSIDE RECORDS SUMMARY | 2024-10-22 10:49 | XMS_ITS | Encounter Summary ---
Author Organization [facility] [employer] Address [address] [place] [address] Care Team Providers Care Shaping Machine Operator Name Role Phone Eladio Lomas MD Unavailable Breanna Crow PA-C Unavailable Encounter Details Date Type Department Care Team (Late st Contact Info) Description 10/15/2021 Transcribed Document [facility] [place] [facility] [place] [address] ProviderJailyn MD [address] [place], [place] [id number] Social History Tobacco Use Types Packs/Day Years [...] Lira MD - 10/15/2021 9:30 AM CDT On Going Discharge Planning Entered On: 10/15/2021 9:30 EDT Performed On: 10/15/2021 9:30 EDT by Meghann Scott Rn Care Management Progress Note Discharge Arrangements : Patient Post-Acute Information Patient Name: SARAH HU Gender: Male : [birth year] Age: 71 Years No Post-Acute Placement(s) Listed No Post-Acute Service(s) Listed No [place]pan Referral(s) Listed Discharge Options Discussed with Patient : Discharge transportation, DME, Home Health Barriers to Discharge Identified : Clinical Condition of Patient Barriers to Discharge Unresolved : Clinical Condition of Patient Patient Discharge Goal : Home health care Patient Offered Choice/Affiliations Explained : No Designation of Choice Signed : No List/Info Provided Pt/Fam/Support Person : Other: NA Were Referrals Sent to Post Acute Providers : No Does the Patient have a Floor to SNF Benefit? : No Is the Patient Meeting Medical Necessity : Yes Did you Attend Multidisciplinary Rounds? : No Meghann Scott Rn - 10/15/2021 9:30 EDT Narrative Progress Note Narrative Progress Note : 71yo male patient admitted with [...] planning needs Meghann Scott Rn - 10/15/2021 9:30 EDT Electronically signed by Huy [facility] Conversion Model Builder Cerner at 08/17/2022 6:01 PM CDT documented in this encounter Plan of Treatment Not on file documented as of this encounter Visit Diagnoses Not on filedocumented in this encounter Care Teams Shaping Machine Operator Relationship Specialty Start Date End Date Eladio Lomas MD [address] [facility] [address] [address] Medical Oncologist Hematology and Oncology 07/08/22 Breanna Crow PA-C [address] [place] [address] [address] [place] [address] Physician Meat Specialist Oncology 07/08/22 documented as of this encounter
--- OUTSIDE RECORDS SUMMARY | 2024-10-22 10:50 | XMS_ITS | Encounter Summary ---
Author Organization [facility] [employer] Address [address] [place] [address] Care Team Providers Care Feed And Farm Management Adviser Name Role Phone Eladio Lomas MD Unavailable Breanna Crow PA-C Unavailable [phone] Encounter Details Date Type Department Care Team (Late st Contact Info) Description 10/18/2021 Transcribed Document [facility] [place] [address] ProviderJailyn MD [address] [place], [place] [phone] Social History Tobacco Use Types Packs/Day Years Used Date Smoking Tobacco: Never Assessed Sex and Gender Information Value Date Recorded Sex Assigned at Male 10/27/2021 8:22 PM CDT Legal Sex Male 8:22 PM CDT Gender Identity Male 10/27/2021 8:22 PM CDT Sexual Orientation Not on file documented as of this encounter Miscellaneous Notes * Cerner Conversion Note - Jailyn Lira MD - 10/18/2021 11:50 AM CDT Final Discharge Planning Entered On: 10/18/2021 11:54 EDT Performed On: 10/18/2021 11:50 EDT by ROMERO MCMANUS RN - Care Management Final Discharge Planning Discharge Arrangements : Patient Post-Acute Information Patient Name: SARAH HU Gender: Male : [birth year] Age: 71 Years No Post-Acute Placement(s) Listed No Post-Acute Service(s) Listed No Curaspan Referral(s) Listed Patient Offered Choice/Affiliations Explained : Yes Designation of Choice Signed : Yes Important Medicare Message Reviewed With : Patient Important Medicare Message Reviewed D/T : 10/18/2021 10:55 EDT Transportation Needs : Family/Friend Is Patient High/Moderate Readmission Risk? : No Patient/Family Notified of Plan : Yes Support Person/Pt Rep Notified of Plan : Yes Is Patient Ready for Discharge? : Yes Physician Notified Patient is Ready for Discharge? : Yes Discharge To Care Management : Home/Residential/Jail or Self Care - ROMERO MCMANUS RN - Care Management - 10/18/2021 11:50 EDT Final Narrative Note Final Narrative Note : Rolling walker delivered to pt's room prior to d/c. [employer] [facility] packet and a copy of the ticket given to the pt. Walker was adjusted to the appropriate height. Pt d/c'd home with spouse to transport. ROMERO MCMANUS RN - Care Management - 10/18/2021 11:50 EDT Electronically signed by Huy [facility] Conversion Comptometrist Cerner at 08/17/2022 6:15 PM CDT documented in this encounter Plan of Treatment Not on file documented as of this encounter Visit Diagnoses Not on filedocumented in this encounter Care Teams Feed And Farm Management Adviser Relationship Specialty Start Date End Date Eladio Lomas MD [address] [address] Medical Oncologist Hematology and Oncology 07/08/22 Breanna Crow PA-C [address] [place] [address] [address] [place] [address] Physician Photographic Engineer Oncology 07/08/22 documented as of this encounter
--- OUTSIDE RECORDS SUMMARY | 2024-10-22 10:50 | XMS_ITS | Encounter Summary ---
Author Organization [employer] Address [address] [facility] [place] [address] Care Team Providers Care Career Placement Services Counselor Name Role Phone Eladio Lomas MD Unavailable Breanna Crow PA-C Unavailable [phone] Encounter Details Date Type Department Care Team (Late st Contact Info) Description 10/17/2021 Transcribed Document [facility] [place] [facility] [place] [address] ProviderJailyn MD [address] [place] [address] Social History Tobacco Use Types [...] Note - Jailyn Lira MD - 10/17/2021 12:59 PM CDT Patient: SARAH HU Age: 71 Years Sex: Male : 1950 Subjective Date of service: 10/17/2021 Patient seen and examined at bedside with primary nurse. at bedside. Patient complains of right calf aching pain. Vital Signs T: 36.7 ??C TMIN: 36.6 ??C TMAX: 36.7 ??C HR: 77(Monitored) RR: 17 BP: 143/52 SpO2: 98% Oxygen Settings (Last) Oxygen Therapy Mode: Room air (10/17/21 10:12:00) Intake & Output Totals Last 24 Hours (7a-7a) Input Total: 1058.44 mL Output Total: 0 mL Balance: 1058.44 mL Physical Exam General: Alert and oriented, Mild distress. Eye: [...] lower motor neuron process.. Integumentary: Warm, Dry, [place]. Neurologic: Alert, Oriented, Cranial Nerves II-XII are grossly intact, Decreased sensation in an S1 distribution of the right leg. Decreased reflexes in right leg.. Psychiatric: Cooperative, Appropriate mood & affect.. Assessment/Plan #Right lower extremity weakness and paresthesia [...] correlation in the setting of recent varicella. 10/17: Ultrasound lower extremities bilateral reviewed, continue Eliquis for DVT treatment. ID consult pending. Per ortho, in approximately 7 to 14 days when the rash is healed up, myelogram and CAT scan, if it does show a compressive lesion on the right side, then plan for surgery on him. Currently, he is not a surgical candidate because of the rash. Leukocytosis, procalcitonin ordered. Disposition: Pending product marketing consultant recommendations and plans, still needs further evaluation. May need rehab depending on PT/OT evaluation and clinical course. Discharge is uncertain at this time. VTE Prophylaxis - Medical [...] # 4.35 K/uL (High) 10/17/2021 02:21 EDT [place] % 15.2 % (High) 10/17/2021 02:21 EDT [place] # 2.14 K/uL (High) 10/17/2021 02:21 EDT [place] % 0.0 % (Low) 10/17/2021 02:21 EDT Eos # 0.00 K/uL (Low) 10/17/2021 02:21 EDT [place] % 0.2 % 10/17/2021 02:21 EDT Baso # 0.03 K/uL 10/17/2021 02:21 EDT Slide Review No 10/17/2021 02:21 EDT IG# 0 x10(3)/uL 10/17/2021 02:21 EDT IG% 0 % 10/17/2021 02:21 EDT PTT 27.1 Second(s) 10/17/2021 02:21 EDT Electronically signed by Huy, [facility] Conversion Front Services Agent Cerner at 08/17/2022 6:20 PM CDT documented in this encounter Plan of Treatment Not on file documented as of this encounter Visit Diagnoses Not on filedocumented in this encounter Care Teams Career Placement Services Counselor Relationship Specialty Start Date End Date Eladio Lomas MD [address] [address] Medical Oncologist Hematology and Oncology 07/08/22 Breanna Crow PA-C [address] [place] [address] [place], [place] [id number] Physician Emblem Maker Oncology 07/08/22 documented as of this encounter
--- OUTSIDE RECORDS SUMMARY | 2024-10-22 10:50 | XMS_ITS | Encounter Summary ---
Author Organization [facility] [employer] Address [address] [place] [address] Care Team Providers Care Investigator Narcotics Name Role Phone Eladio Lomas MD Unavailable Breanna Crow PA-C Unavailable [phone] Encounter Details Date Type Department Care Team (Late st Contact Info) Description 10/18/2021 Transcribed Document [facility] [place] Counts include 234 beds at the [facility] [place] [address] ProviderJailyn MD [address] [place] [address] Social History Tobacco Use Types [...] Note - Jailyn Lira MD - 10/18/2021 2:00 AM CDT High School Foreign Language Teacher Details Entered On: 10/18/2021 2:19 EDT Performed On: 10/18/2021 2:00 EDT by ROMERO HOWARD LPN-LVN-PATIENT CARE [...] No ROMERO HOWARD LPN-LVN-PATIENT CARE BEDSIDE - 10/18/2021 2:19 EDT Electronically signed by Huy [facility] Conversion Supervisor Scouring Pads Cerner at 08/17/2022 6:13 PM CDT documented in this encounter Plan of Treatment Not on file documented as of this encounter Visit Diagnoses Not on filedocumented in this encounter Care Teams Investigator Narcotics Relationship Specialty Start Date End Date Eladio Lomas MD [address] [facility] [address] [address] Medical Oncologist Hematology and Oncology 07/08/22 Breanna Crow, PACecilia [address] [address] Physician Lay Out Maker Oncology 07/08/22 documented as of this encounter
--- OUTSIDE RECORDS SUMMARY | 2024-10-22 10:50 | XMS_ITS | Encounter Summary ---
Author Organization [employer] Address [address] [place] [address] Care Team Providers Care Site Inspector Name Role Phone Eladio Lomas MD Unavailable Breanna Crow PA-C Unavailable [phone] Encounter Details Date Type Department Care Team (Late st Contact Info) Description 10/16/2021 Transcribed Document [facility] [place] [address] ProviderJailyn MD [address] [place] [address] Social History Tobacco Use Types [...] Note - Jailyn Lira MD - 10/16/2021 1:42 PM CDT Patient: SARAH HU Age: 71 years Sex: Male : 1950 Associated Diagnoses: None Author: GARCIA WORKMAN MD-ORT Subjective Chief complaint 10/15/2021 4:48 EDT RLE numbness x1 week. . Thoracic MRI not yet done I will come back and reassess him after the thoracic MRI It is possible that he could have some nerve root compression, but I am not impressed on the severity on the MRI study, it is moderate, it is possible that this could do it. I will I will reevaluate him. Health Status Allergies: Allergic Reactions (Selected) Severity [...] Nebulized Inhalation, RT_Q6H, PRN: Shortness of Breath Eliquis: 10 mg, Oral, BID MiraLax: 17 Gram, Oral, Daily, PRN: Constipation [...] Tab, Oral, Q4H, PRN: Pain (Mild 1-3) hydrALAZINE: 20 mg, IV Push, Q6H, PRN: [...] 2 Tab, PRN, Oral, Q4H , Medications (17) Active Scheduled: (5) apixaban 5 mg tab 10 mg 2 Tab, Oral, BID diphenhydrAMINE 25 mg tab 25 mg 1 Tab, Oral, 1-Time famotidine 20 mg tab 20 mg 1 Tab, Oral, Q12H methylPREDNISolone succinate + NaCl 0.9% 50 mL 250 mg 4 mL, IV Piggyback, Daily potassium chloride CR 10 mEq tab 20 mEq 2 Tab, Oral, BID Continuous: (0) PRN: (12) acetaminophen 325 mg tab 650 [...] At risk for sleep apnea / IMO [id number] / Confirmed, Active Problems (2) At risk for sleep apnea Mitral valve prolapse Objective VS/Measurements Vitals Signs (last 24 hrs) Last Charted Minimum Maximum Temp 98.1 (OCT 16 11:44) 97.4 (OCT 16 06:00) 98.1 (CINDI 16 17:56) Mon HR 82 (CINDI 17 11:44) 71 (CINDI 16 15:42) 85 (CINDI 17 06:00) Resp Rate 16 (CINDI 17 11:44) 16 (CINDI 16 17:56) 18 (CINDI 16 15:00) SBP 134 (CINDI 17 11:44) 134 (CINDI 17 11:44) H 178 (CINDI 16 22:02) DBP 67 (CINDI 17 11:44) 61 (CINDI 16 15:42) 71 (CINDI 16 17:56) MAP 83 (CINDI 17 11:44) 83 (CINDI 17 11:44) 95 (CINDI 16 17:56) SpO2 96 (CINDI 17 11:44) L 92 (CINDI 17 06:00) 99 (ICNDI 16 17:56) Electronically signed by Huy, [facility] Conversion Manager Mass Cerner at 08/17/2022 6:04 PM CDT documented in this encounter Plan of Treatment Not on file documented as of this encounter Visit Diagnoses Not on filedocumented in this encounter Care Teams Site Inspector Relationship Specialty Start Date End Date Eladio Lomas MD [address] [facility] [address], [place] [address] Medical Oncologist Hematology and Oncology 07/08/22 Breanna Crow, PA-C [address] [facility] [address] [place] [address] Physician Pill Machine Operator Oncology 07/08/22 documented as of this encounter
--- OUTSIDE RECORDS SUMMARY | 2024-10-22 10:50 | XMS_ITS | Encounter Summary ---
Author Organization [facility] Address [address] [place] [address] Care Team Providers Care Optical Mechanic Apprentice Name Role Phone Eladio Lomas MD Unavailable Breanna Crow PA-C Unavailable [phone] Encounter Details Date Type Department Care Team (Late st Contact Info) Description 10/16/[address] [facility] [place] [address] ProviderJailyn MD [address] [place], [place] [id number] Social History Tobacco Use Types Packs/Day Years Used Date Smoking Tobacco: Never Assessed Sex and Gender Information Value Date Recorded Sex Assigned at Male 10/27/2021 8:22 PM CDT Legal Sex Male 8:22 PM CDT Gender Identity Male 10/27/2021 8:22 PM CDT Sexual Orientation Not on file documented as of this encounter Miscellaneous Notes * Cerner Conversion Note - Jailyn Lira MD - 10/16/2021 11:03 AM CDT On Going Discharge Planning Entered On: 10/16/2021 11:06 EDT Performed On: 10/16/2021 11:03 EDT by Luisa Zapien RN Care Management Progress Note Discharge Arrangements : [...] Sent to Post Acute Providers : No [facility] Quality Web Info Shared w Pt/Fam : No Does the Patient have a Floor to SNF Benefit? : No Referral Indicators For Complex SWK Interventions : Other: none Is the Patient Meeting Medical Necessity : Yes Physician Agreeable to Move Forward with D/C Plan? : Yes Did you Attend Multidisciplinary Rounds? : Yes Luisa Zapien RN - 10/16/2021 11:03 EDT Narrative Progress Note Narrative Progress Note : Per MDR's pt started on heparin drip yesterday for DVT. MD to change to lovenox today. Neuro started on solu-medrol yesterday and consulted ortho. Per ortho no intervention planned but pending CT of snine. CM will continue to follow. Plan: TBD pending ortho, neur and ID clerance. INP. Low. Historical Progress Note : 71yo male patient admitted [...] dc planning needs Meghann Scott Rn - 10/15/21 09:30:51 Luisa Zapien RN - 10/16/2021 11:03 EDT Electronically signed by Huy [facility] Conversion Elevator Constructor Electric Cerner at 08/17/2022 5:59 PM CDT documented in this encounter Plan of Treatment Not on file documented as of this encounter Visit Diagnoses Not on filedocumented in this encounter Care Teams Optical Mechanic Apprentice Relationship Specialty Start Date End Date Eladio Lomas MD [address] [facility] [address] [place] [address] Medical Oncologist Hematology and Oncology 07/08/22 Breanna Crow, PA-C [address] [address] Physician Industrial Chemist Oncology 07/08/22 documented as of this encounter
--- OUTSIDE RECORDS SUMMARY | 2024-10-22 10:50 | XMS_ITS | Encounter Summary ---
Author Organization [employer] Address [address] [place] [address] Care Team Providers Care Engineer First Assistant Name Role Phone Eladio Lomas MD Unavailable Breanna Crow PA-C Unavailable [phone] Encounter Details Date Type Department Care Team (Late st Contact Info) Description 10/18/2021 Transcribed Document [facility] [place] [facility] [place] [address] ProviderJailyn MD [address] [place] [address] Social History Tobacco Use [...] Note - Jailyn Lira MD - 10/18/2021 2:35 PM CDT Nursing Discharge Summary Entered On: 10/18/2021 14:37 EDT Performed On: 10/18/2021 14:35 EDT by Celina Marley Non Emp director of kids Documentation Discharge Date/Time : 10/18/2021 12:50 EDT Transporter Signature : Maribel Chaves Care Asst-Health Unit Coord Patient Disposition, General : Discharge Discharge To : Home with ambulatory/outpatient follow-up Mode Of Departure, General Discharge : Private vehicle, Wheelchair with adult Accompanied By, Discharge : Care provider, Spouse IV Discontinued : Yes Personal Belongings With Patient : Yes Pt's Own Supply of Medications Returned : No patient supply of medications to return Prescriptions Given to Patient : Electronically sent Medications Given to Patient : No Discharge Instructions Reviewed With, Opportunity For Questions Given : Patient, Spouse Patient Education Completed : Yes Teaching Method : Explanation, Printed materials Teaching Evaluation : Verbalizes understanding Celina Marley Non Emp RN - 10/18/2021 14:35 EDT Electronically signed by [facility], [facility] Conversion Fiscal Economist Cerner at 08/17/2022 6:13 PM CDT documented in this encounter Plan of Treatment Not on file documented as of this encounter Visit Diagnoses Not on filedocumented in this encounter Care Teams Engineer First Assistant Relationship Specialty Start Date End Date Eladio Lomas MD [address] [facility] [place] [address] Medical Oncologist Hematology and Oncology 07/08/22 Breanna Crow PA-C [facility] [address] Physician Exposure Machine Operator Oncology 07/08/22 documented as of this encounter
--- OUTSIDE RECORDS SUMMARY | 2024-10-22 10:50 | XMS_ITS | Encounter Summary ---
Author Organization [facility] [employer] Address [address] [place] [address] Care Team Providers Care Research & Analytics Manager Name Role Phone Eladio Lomas MD Unavailable Breanna Crow PA-C Unavailable [phone] Encounter Details Date Type Department Care Team (Late st Contact Info) Description 10/19/2021 Transcribed Document [facility] [place] [facility] [place] [address] ProviderJailyn MD [address] [place] [id number] Social History Tobacco Use Types Packs/Day Years Used Date Smoking Tobacco: Never Assessed Sex and Gender Information Value Date Recorded Sex Assigned at Male 10/27/2021 8:22 PM CDT Legal Sex Male 8:22 PM CDT Gender Identity Male 10/27/2021 8:22 PM CDT Sexual Orientation Not on file documented as of this encounter Miscellaneous Notes * Cerner Conversion Note - Jailyn Lira MD - 10/19/2021 11:01 AM CDT UM Authorization Entered On: 10/19/2021 11:02 EDT Performed On: 10/19/2021 11:01 EDT by JUANITA HUGO RN-Utilization Review Primary Insurance Authorization Authorization and Policy Numbers : Insurance 1 Health Plan: [employer] PPO Policy Number: [id number] Authorization Number: Insurance Primary Name : [employer] PPO [id number] Authorization Status-Primary : Awaiting callback Reference Number-Primary : [id number] Authorized Service Begin Date-Primary : 10/15/2021 EDT Authorization Comments-Primary : [employer] PPO auth still pending per availity Historical Authorization Comments-Primary : Comment 1: Clinicals faxed via import2 (Natalie Lauren, Rn-Utilization Review 10/15/2021 09:30) Comment 2: [employer] PPO auth pending per Star note. (JUANITA HUGO, RN-Utilization Review 10/15/2021 09:18) JUANITA HUGO RN-Utilization Review - 10/19/2021 11:01 EDT Electronically signed by Huy [facility] Conversion Manager Recruiting Cerner at 08/17/2022 6:00 PM CDT documented in this encounter Plan of Treatment Not on file documented as of this encounter Visit Diagnoses Not on filedocumented in this encounter Care Teams Research & Analytics Manager Relationship Specialty Start Date End Date Eladio Lomas MD [address] [place] [address] Medical Oncologist Hematology and Oncology 07/08/22 Breanna Crow, PA-C [address] [place] [address] [place] [address] Physician Nurse Midwife Oncology 07/08/22 documented as of this encounter
--- OUTSIDE RECORDS SUMMARY | 2024-10-22 10:50 | XMS_ITS | Encounter Summary ---
Author Organization [employer] Address [address] [place] [address] Care Team Providers Care Intercell Connector Placer Name Role Phone Eladio Lomas MD Unavailable Breanna Crow PA-C Unavailable [phone] Encounter Details Date Type Department Care Team (Late st Contact Info) Description 10/18/2021 Transcribed Document [facility] [place] [facility] [place] [address] ProviderJailyn MD [address] [place] [address] Social History Tobacco Use Types [...] Note - Jailyn Lira MD - 10/18/2021 12:27 PM CDT Patient Education Materials Follows: Leg Cramps Leg cramps occur when one or more muscles tighten and a person has no control over it (involuntary muscle contraction). Muscle cramps are most common in the calf muscles of the leg. They can occur during exercise or at rest. Leg cramps are painful, and they may last for a few seconds to a few minutes. Cramps may return several times before they finally stop. Usually, leg cramps are not caused by a serious medical problem. In many cases, the cause is not known. Some common causes include: ??? Excessive physical effort (overexertion), such as during intense exercise. ??? Doing the same motion over and over. ??? Staying in a certain position for a long period of time. ??? Improper preparation, form, or technique while doing a sport or an activity. ??? Dehydration. ??? Injury. ??? Side effects of certain medicines. ??? Abnormally low levels of minerals in your blood (electrolytes), especially potassium and calcium. This could result from: ? . ? Taking diuretic medicines. Follow these instructions at home: Eating and drinking ??? Drink enough fluid to keep your urine pale yellow. Staying hydrated may help prevent cramps. ??? Eat a healthy diet that includes plenty of nutrients to help your muscles function. A healthy diet includes fruits and vegetables, lean protein, whole grains, and low-fat or nonfat dairy products. Managing pain, stiffness, and swelling ??? Try massaging, stretching, and relaxing the affected muscle. Do this for several minutes at a time. ??? If directed, put ice on areas that are sore or painful after a cramp. To do this: ? Put ice in a plastic bag. ? Place a towel between your skin and the bag. ? Leave the ice on for 20 minutes, 2?3 times a day. ? Remove the ice if your skin turns bright red. This is very important. If you cannot feel pain, heat, or cold, you have a greater risk of damage to the area. ??? If directed, apply heat to muscles that are tense or tight. Do this before you exercise, or as often as told by your health care provider. Use the heat source that your health care provider recommends, such as a moist heat pack or a heating pad. To do this: ? Place a towel between your skin and the heat source. ? Leave the heat on for 20?30 minutes. ? Remove the heat if your skin turns bright red. This is especially important if you are unable to feel pain, heat, or cold. You may have a greater risk of getting burned. ??? Try taking hot showers or baths to help relax tight muscles. General instructions ??? If you are having frequent leg cramps, avoid intense exercise for several days. ??? Take gjgv-gli-zruktdz and prescription medicines only as told by your health care provider. ??? Keep all follow-up visits. This is important. Contact a health care provider if: ??? Your leg cramps get more severe or more frequent, or they do not improve over time. ??? Your foot becomes cold, numb, or blue. Summary ??? Muscle cramps can develop in any muscle, but the most common place is in the calf muscles of the leg. ??? Leg cramps are painful, and they may last for a few seconds to a few minutes. ??? Usually, leg cramps are not caused by a serious medical problem. Often, the cause is not known. ??? Stay hydrated, and take uafg-pqk-lgltlza and prescription medicines only as told by your health care provider. This information is not intended to replace advice given to you by your health care provider. Make sure you discuss any questions you have with your health care provider. Document Revised: 09/03/2020 Document Reviewed: 09/03/2020 [employer] Patient Education ? 2020 [employer] documented in this encounter Plan of Treatment Not on file documented as of this encounter Visit Diagnoses Not on filedocumented in this encounter Care Teams Intercell Connector Placer Relationship Specialty Start Date End Date Eladio Lomas MD [address] [facility] [address] [address] Medical Oncologist Hematology and Oncology 07/08/22 Breanna Crow PA-C [address] [place] [address] [address] [place] [address] Physician Washing Machine Assembler Oncology 07/08/22 documented as of this encounter
--- OUTSIDE RECORDS SUMMARY | 2024-10-22 10:50 | XMS_ITS | Encounter Summary ---
Author Organization [facility] [employer] Address [address] [place] [address] Care Team Providers Care Manager Product Marketing Name Role Phone Eladio Lomas MD Unavailable Breanna Crow PA-C Unavailable Encounter Details Date Type Department Care Team (Late st Contact Info) Description 10/18/2021 Transcribed Document [facility] [place] [facility] [place] [address] ProviderJailyn MD [address] [place] [address] Social History Tobacco Use Types [...] Note - Jailyn Lira MD - 10/18/2021 12:28 [place] [address] SARAH HU :1950 Visit Time:10/15/2021 Your Visit Summary Your Care Team Admitting Physician - CANDIDA GUO, DO-INT Attending Physician - CANDIDA GUO DO-INT Primary Care Physician - SMITH POE DR Referring Physician - LUI, SELF REFERRED Your Diagnosis Chicken pox CLL (chronic lymphocytic leukemia) Elevated d-dimer Hypertension Leg weakness Neurologic problem Paresthesia These Are Your Goals to talk with the doctors in the morning Patient Discharge Goal Patient Discharge Goal: Home health care Discharge Vitals Temperature 36.6 ??C Heart Rate (Monitored) 75 Respiratory Rate 16 Blood Pressure 108/40 What to do next Instructions From Your Care Team Discharge Activity: Discharge Activity: Activity as tolerated Diet: Discharge Diet: Resume usual diet as tolerated Follow-Up Appointments Follow Up with Consider f/u with neurosurgery/pain management postdischarge if symptoms do not improve When Within 2 to 3 days Follow Up with Follow-up with PCP within 1 week When Follow Up with Follow-up with orthopedic in 1 month When Follow Up with TRENA PANIAGUA When Within 2 weeks Where: [address] [address]- Business (1) Medications What How Much When Instructions Next Dose apixaban (Eliquis 5 mg oral tablet) 2 Tablet(s) Oral Two Times A Day Duration: 30 Day(s) Needs to finish a 7 d course of 10 mg twice daily(20 mg daily in total) so he still has 5 days of 4 tabs/ 5 mg daily then after that he can take 2 tabs daily which means 10 mg daily in total Pickup at [facility] #[id number] This evening predniSONE (predniSONE 10 mg oral tablet) See instructions Taper course of prednisone as following: First day 6 tabs, second day 5 tabs, third day 4 tabs, fourth day 3 tabs, fifth day 2 tabs, sixth day 1 tab, seventh half tab and eighth half tab Pickup at [facility] #[id number] This afternoon valACYclovir (Valtrex 500 mg oral tablet) 2 Tablet(s) Oral Every Day Tomorrow acetaminophen (Tylenol 325 mg oral tablet) 2 Tablet(s) Oral Every 4 Hours as needed for Pain (Mild 1-3) as needed allopurinol (allopurinol 300 mg oral tablet) 1 Tablet(s) Oral Every Day This evening lactobacillus acidophilus (lactobacillus acidophilus oral capsule) 1 Capsule(s) Oral Two Times A Day Duration: 7 Day(s) This evening multivitamin See instructions 1 Oral Daily Tomorrow Pharmacy Information [facility] #[id number]: [address] [place] [phone] Take your medications faithfully. Do NOT skip [...] Please dispose of unused and medications per your retail pharmacy guidance. Allergies Shrimp contrast media (iodine-based) Immunizations This Visit No Immunizations Found Education Materials Leg Cramps Leg cramps occur when one [...] Leave the ice on for 20 minutes, 2???3 times a day. ? Remove the ice [...] source. ? Leave the heat on for 20???30 minutes. ? Remove the heat if your [...] intense exercise for several days. ??? Take tqwt-fob-ygapzim and prescription medicines only as told by [...] not known. ??? Stay hydrated, and take rvqz-bwv-qyngnwb and prescription medicines only as told by your health care provider. This information is not intended to replace advice given to you by your health care provider. Make sure you discuss any questions you have with your health care provider. Document Revised: 09/03/2020 Document Reviewed: 09/03/2020 [facility] Patient Education ?? 2020 [employer]. Emergency Awareness and Preventative Care STROKE [...] Assistance with quitting is available by contacting 2-653-TRGG-NOW. This is a free resource providing counseling, [...] This Visit (last charted value for your 10/15/2021 visit) Hematology 10/18/2021 5:41 AM WBC: 15.9 K/uL -- Normal range between ( 3.9 and 10.0 ) RBC: 4.62 Million/uL -- Normal range between ( 4.63 and 6.08 ) Hct: 40.7 % -- Normal range between ( 40.1 and 51.0 ) Hgb: 13.7 Gram/dL -- Normal range between ( 13.7 and 17.5 ) Platelet Count: 223 K/uL -- Normal range between ( 163 and 369 ) MCH: 29.7 pg -- Normal range between ( 25.6 and 32.2 ) MCHC: 33.7 Gram/dL -- Normal range between ( 32.3 and 36.5 ) MCV: 88.1 fL -- Normal range between ( 79.0 and 94.8 ) Slide Review: Technologist Eos %: 0.0 % -- Normal range between ( 1.0 and 7.0 ) [place] #: 2.80 K/uL -- Normal range between ( 0.24 and 0.82 ) Eos #: 0.00 K/uL -- Normal range between ( 0.04 and 0.54 ) [place] %: 17.6 % -- Normal range between ( 4.7 and 12.5 ) Baso %: 0.2 % -- Normal range between ( 0.0 and 1.0 ) Microcytosis: 1+ RBC Morphology: Normal Baso #: 0.03 K/uL -- Normal range between ( 0.01 and 0.08 ) RDW: 13.5 % -- Normal range between ( 11.6 and 14.4 ) Neut %: 52.8 % -- Normal range between ( 34.0 and 71.0 ) Neut #: 8.43 K/uL -- Normal range between ( 1.56 and 6.13 ) Lymph %: 29.0 % -- Normal range between ( 19.3 and 53.0 ) Platelet Ct Estimate: Adequate Lymph #: 4.62 K/uL -- Normal range between ( 1.18 and 3.74 ) MPV: 9.4 fL -- Normal range between ( 9.4 and 12.4 ) IG#: 0 x10(3)/uL IG%: 0 % -- Normal range between ( 0 and 1 ) 10/15/2021 0:19 AM Sed Rate Auto: 5 mm/Hr -- Normal range between ( 0 and 20 ) ALYC #: 4 K/uL ANC #: 5 K/uL [place] Percent Man: 19 % -- Normal range between ( 4 and 5 ) Neutrophil Percent Man: 44 % -- Normal range between ( 50 and 65 ) Lymph Percent Man: 37 % -- Normal range between ( 24 and 44 ) General Chemistry 10/18/2021 5:41 AM Creatinine Level: 0.73 mg/dL -- Normal range between ( 0.70 and 1.30 ) Sodium Level: 143 mmol/L -- Normal range between ( 136 and 146 ) Potassium Level: 3.9 mmol/L -- Normal range between ( 3.5 and 5.1 ) Chloride Level: 109 mmol/L -- Normal range between ( 102 and 112 ) Carbon Dioxide Level: 27 mmol/L -- Normal range between ( 21 and 32 ) Anion Gap: 11 -- Normal range between ( 9 and 20 ) Bun/Creatinine: 28.8 -- Normal range between ( 8.0 and 20.0 ) Calcium Level: 8.7 mg/dL -- Normal range between ( 8.5 and 10.1 ) eGFR : >60 mL/min/1.73m2 eGFR NonAfrican: >60 mL/min/1.73m2 Glucose Level: 110 mg/dL -- Normal range between ( 74 and 106 ) Blood Urea Nitrogen: 21 mg/dL -- Normal range between ( 7 and 22 ) 10/16/2021 4:00 AM Bilirubin Total: 0.6 mg/dL -- Normal range between ( 0.2 and 1.3 ) A/G Ratio: 1.5 -- Normal range between ( 1.1 and 2.5 ) ALT: 33 Units/Liter -- Normal range between ( 12 and 78 ) AST: 27 Units/Liter -- Normal range between ( 5 and 37 ) Globulin: 2.4 Gram/dL -- Normal range between ( 1.5 and 4.5 ) Alk Phos: 87 Units/Liter -- Normal range between ( 27 and 136 ) Magnesium Level: 2.4 mg/dL -- Normal range between ( 1.5 and 2.4 ) Protein Total: 6.0 Gram/dL -- Normal range between ( 6.4 and 8.2 ) Albumin Level: 3.6 Gram/dL -- Normal range between ( 3.4 and 5.0 ) 10/15/2021 0:19 AM CRP: 0.5 mg/dL -- Normal range between ( 0.0 and 0.9 ) Cardiac Specific Markers 10/15/2021 0:19 AM CK: 53 Units/Liter -- Normal range between ( 39 and 308 ) Coagulation 10/18/2021 5:41 AM PTT: 28.5 Second(s) -- Normal range between ( 24.2 and 31.8 ) 10/16/2021 4:00 AM INR: 1.0 -- Normal range between ( 0.9 and 1.1 ) PTT Heparin: 49.6 Second(s) -- Normal range between ( 45.0 and 65.0 ) PT: 10.8 Second(s) -- Normal range between ( 9.6 and 11.5 ) 10/15/2021 0:19 AM D Dimer Quant: 1039 ng/mL Endocrinology 10/18/2021 5:41 AM Procalcitonin: <0.05 ng/mL -- Normal range between ( 0.00 and 0.05 ) Computed Tomography 10/15/2021 1:[address] Spine Lumbar WO: CT Spine Lumbar WO Diagnostic Radiology 10/15/2021 0:39 AM CR Foot Comp Min 3 Vws RT: CR Foot Comp Min 3 Vws RT CR Knee 3 Vws RT: CR Knee 3 Vws RT Magnetic Resonance Imaging 10/16/2021 1:02 PM MRI Spine Thoracic WO W: MRI Spine Thoracic WO W 10/15/2021 11:13 AM MRI Spine Lumbar WO W: MRI Spine Lumbar WO W Ultrasound 10/17/2021 11:56 AM US Veins LE Duplex BILAT: US Veins LE Duplex BILAT 10/15/2021 8:47 AM US Veins LE Duplex LTD RT: US Veins LE Duplex LTD RT Patient Name:SARAH HUNE I have received and understand this information and was given the opportunity to ask questions. Patient/Living Manager Name: Patient/Living Manager Signature: Relationship to Patient: Clinician/Hospital Living Manager Signature: Date: Electronically signed by [facility], [facility] Conversion Air Conditioning Supervisor Cerner at 08/17/2022 6:07 PM CDT documented in this encounter Plan of Treatment Not on file documented as of this encounter Visit Diagnoses Not on filedocumented in this encounter Care Teams Manager Product Marketing Relationship Specialty Start Date End Date Eladio Lomas MD [address] [facility] [address] [place] [address] Medical Oncologist Hematology and Oncology 07/08/22 Breanna Crow PA-C [address] [facility] [address] [place] [address] Physician Mangle Operator Garments Oncology 07/08/22 documented as of this encounter
--- OUTSIDE RECORDS SUMMARY | 2024-10-22 10:50 | XMS_ITS | Encounter Summary ---
Author Organization [facility] [employer] Address [address] [place] [address] Care Team Providers Care Nursing Department Chairperson Name Role Phone Eladio Lomas MD Unavailable Breanna Crow PA-C Unavailable [phone] Encounter Details Date Type Department Care Team (Late st Contact Info) Description 10/18/2021 Transcribed Document [facility] [place] [facility] [place] [address] ProviderJailyn MD [address] [place] [id number] Social History Tobacco Use Types Packs/Day Years Used Date Smoking Tobacco: Never Assessed Sex and Gender Information Value Date Recorded Sex Assigned at Male 10/27/2021 8:22 PM CDT Legal Sex Male 8:22 PM CDT Gender Identity Male 10/27/2021 8:22 PM CDT Sexual Orientation Not on file documented as of this encounter Miscellaneous Notes * Cerner Conversion Note - Historical ProviderMD - 10/18/2021 12:27 PM CDT Stroke/Warfarin Instructions Entered On: 10/18/2021 12:27 EDT Performed On: 10/18/2021 12:27 EDT by Celina Marley Non Emp RN Stroke/Warfarin Instructions Stroke/TIA Discharge Ins : N/A Warfarin Discharge Ins : N/A Celina Marley Non Emp RN - 10/18/2021 12:27 EDT documented in this encounter Plan of Treatment Not on file documented as of this encounter Visit Diagnoses Not on filedocumented in this encounter Care Teams Nursing Department Chairperson Relationship Specialty Start Date End Date Eladio Lomas MD [address] [facility] [address] [place] [address] Medical Oncologist Hematology and Oncology 07/08/22 Breanna Crow PA-C [address] [id number] Physician Internetworking Technician Oncology 07/08/22 documented as of this encounter
--- OUTSIDE RECORDS SUMMARY | 2024-10-22 10:50 | XMS_ITS | Encounter Summary ---
Author Organization [facility] [employer] Address [address] [place] [address] Care Team Providers Care Form Tamping Machine Operator Name Role Phone Eladio Lomas MD Unavailable Breanna Crow PA-C Unavailable [phone] Encounter Details Date Type Department Care Team (Late st Contact Info) Description 10/18/2021 Transcribed Document [facility] [place] [facility] [place] [address] ProviderJailyn MD [address] [place] [address] Social History Tobacco Use Types [...] Note - Jailyn Lira MD - 10/18/2021 11:18 AM CDT Patient: CORBIN HU Age: 71 Years Sex: Male : 1950 Admit Date 10/15/2021 03:06 Discharge Date 10/18/2021 Primary Care Provider SMITH POE DR Discharge Diagnosis Leg weakness 10/15/2021 R29.898 ICD-10-CM CLL (chronic lymphocytic leukemia) 10/15/2021 C91.10 ICD-10-CM Elevated d-dimer 10/15/2021 R79.89 ICD-10-CM Hypertension 10/15/2021 I10 ICD-10-CM Chicken pox 10/15/2021 B01.9 ICD-10-CM Hospital Course #Right lower extremity weakness and paresthesia CT [...] because of the rash. Leukocytosis, procalcitonin ordered. 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 Continue supportive care Note of orthopedic on 10/17/2021 Recommendation-if the patient goes home I do [...] his AFO, and a walker for safety Note of neurology on 10/17/2021 Right leg weakness Lumbar radiculopathy -Patient presented with right foot drop associated with recent injury -MRI L-spine notable for broad disc bulge worse on the right side at L4-L5 level Recommendation -Physical therapy and Occupational Therapy while in-house -Continue Solu-Medrol 50 while in hospital-patient can be transitioned to prednisone taper for discharge -Consider neurosurgery/pain management postdischarge if symptoms do not improve Patient was assessed by PT and/OT and he is ready to be discharged home with home health care Vital Signs T: 36.6 ??C TMIN: 36.4 ??C TMAX: 36.7 ??C HR: 75(Monitored) RR: 16 BP: 108/40 SpO2: 99% Oxygen Settings (Last) Oxygen Therapy Mode: Room air (10/18/21 09:22:00) Physical Exam General: Alert and oriented, well [...] varicella infection Psychiatric: Cooperative, appropriate mood and affect. Discharge Disposition Home with Home Care Discharge Follow Up Consider f/u with neurosurgery/pain management postdischarge if symptoms do not improve - Within 2 to 3 days Follow-up with PCP within 1 week - 00:00 AM Follow-up with orthopedic in 1 month - 00:00 AM TRENA PANIAGUA - Within 2 weeks Discharge Medications (7) Active allopurinol 300 mg oral tablet 300 mg = 1 Tab, Oral, Daily Eliquis 5 mg oral tablet 10 mg = 2 Tab, Oral, BID lactobacillus acidophilus oral capsule 1 Cap, Oral, BID multivitamin See Instructions predniSONE 10 mg oral tablet See Instructions Tylenol 325 mg oral tablet 650 mg = 2 Tab, PRN, Oral, Q4H Valtrex 500 mg oral tablet 1,000 mg = 2 Tab, Oral, Daily Code Status Start: 10/15/21 5:38:00 EDT, DNR Full Treatment-No Intubation/No ACLS, Continuous Order Condition on Discharge Medically stable Consulting Physicians ROMERO INGRAM MD-SERENE - LE weakness GARCIA WORKMAN MD-ORT - right L5 radiculopathy causing foot drop Wilberto Mayorga, PHYSICIAN-CLINIC SIVA, TRENA Michaels MD-INF - R leg weakness in the setting of varicella. Complication/correlation! TOREY DAVISON MD Current Diet Order Diet, Adult - Ordered -- Start: 10/15/21 5:37:00 EDT, Cardiac Diet, Isolation: Protective precautions, Standard Precautions Patient Discharge Summary Orders Discharge Activity: Discharge Activity: Activity as tolerated Diet: Discharge Diet: Resume usual diet as tolerated Pending Labs Ordered BMP Basic Metabolic Panel Specimen Type: Blood, Routine collect, 10/17/21 7:01:00 EDT, Daily, Lab Collect Procalcitonin Specimen Type: Blood, Routine collect, 10/17/21 7:01:00 EDT, Daily, Lab Collect PTT Specimen Type: Blood, Anticoagulant: Yes, AM Draw collect, 10/17/21 4:00:00 EDT, Daily, Lab Collect, Instructions: 2 aptt results within therapeutic range; change to daily aptt draw in am per hospital protocol, Consulting Dr: Wilberto Mayorga, PHYSICIAN-... CBC w/ Auto Diff Specimen Type: Blood, Routine collect, 10/16/21 12:41:00 EDT, Daily, For: 3 Day(s), Stop: 10/19/21 4:00:00 EDT, Lab Collect CBC w/ Auto Diff Specimen Type: Blood, Routine collect, 10/19/21 12:41:00 EDT, MoWeFr, Lab Collect Platelet Count Specimen Type: Blood, Routine collect, 10/17/21 5:37:00 EDT, Q48H, Lab Collect Time Spent on Discharge 44 minutes [1] Neurology Progress Note - APSO; TOREY DAVISON MD 10/17/2021 11:52 EDT Electronically signed by Huy, [facility] Conversion Development Consultant Cerner at 08/17/2022 5:59 PM CDT documented in this encounter Plan of Treatment Not on file documented as of this encounter Visit Diagnoses Not on filedocumented in this encounter Care Teams Form Tamping Machine Operator Relationship Specialty Start Date End Date Eladio Lomas MD [address] [facility] [address] [address] Medical Oncologist Hematology and Oncology 07/08/22 Breanna Crow PA-C [address] [place] [address] [place] [address] Physician Sample Hand Oncology 07/08/22 documented as of this encounter
--- OUTSIDE RECORDS SUMMARY | 2024-10-22 10:50 | XMS_ITS | Encounter Summary ---
Author Organization [employer] Address [address] [place] [address] Care Team Providers Care Baggage Agent Name Role Phone Eladio Lomas MD Unavailable Breanna Crow PA-C Unavailable [phone] Encounter Details Date Type Department Care Team (Late st Contact Info) Description 10/16/2021 Transcribed Document [facility] [place] [facility] [address] ProviderJailyn MD [address] [place] [address] Social History Tobacco Use Types [...] Conversion Note - Historical ProviderMD - 10/16/2021 10:09 AM CDT Attempt to Treat, PT Entered On: 10/16/2021 14:05 EDT Performed On: 10/16/2021 10:09 EDT by Christiano Magana, Physical Therapist Attempt to Treat Unable to Treat Due To : Acuity of Illness Inability to Treat Comment : Attempted to treat today but pt was not on anticoagualtion long enough to be appropriate for therapy. Christiano Magana, Physical Therapist - 10/16/2021 14:01 EDT documented in this encounter Plan of Treatment Not on file documented as of this encounter Visit Diagnoses Not on filedocumented in this encounter Care Teams Baggage Agent Relationship Specialty Start Date End Date Eladio Lomas MD [address] [facility] [address] [place] [address] Medical Oncologist Hematology and Oncology 07/08/22 Breanna Crow PA-C [address] [place], [place] [id number] Physician Process Expert Oncology 07/08/22 documented as of this encounter
[2024-10-22 10:57] LABS: Basophils # 0.1 K/mm3 (0-0.2); Basophils % 0.1 % (0.1-2.0); Eosinophils # 0.1 Kmm3 (0.0-0.4); Hematocrit 35.9 % (42.0-52.0); Hemoglobin 10.7 g/dL (14.1-18.0); Immature Granulocytes # 0.19 10^3uL; Immature Granulocytes % 0.1 %; Lymphocytes % 92.6 % (10-50); Mean Corpuscular HGB Conc 29.8 g/dL (31.8-35.4); Mean Corpuscular Hemoglobin 31.2 pg (27.0-31.2); Mean Corpuscular Volume 104.7 fl (80-94); Mean Platelet Volume 9.6 fl (7.4-10.4); Monocytes # 8.9 K/mm3 (0.1-1.0); Monocytes % 5.5 % (1.7-9.3); Neutrophils # 2.7 K/mm3 (1.8-7.8); Neutrophils % 1.7 % (37.0-80.0); Nucleated Red Blood Cells # 0 10^3/uL; Nucleated Red Blood Cells % 0 %; Platelet Count 138 K/mm3 (142-424); Red Blood Count 3.43 M/mm3 (4.60-6.20); Red Cell Distribution Width 15.9 % (11.5-17.5); Red Cell Distribution Width-SD 59.7 fL
[2024-10-22 11:11] LABS: MANUAL DIFFERENTIAL MANUAL DIFFERENTIAL (MANUAL DIFF)
[2024-10-22 11:20] LABS: Alanine Aminotransferase 16 U/L (12-78); Albumin Level 4.4 g/dl (3.5-5.0); Albumin/Globulin Ratio 2.6 (1.1-1.8); Alkaline Phosphatase 83 U/L (38-126); Anion Gap 7.7 mEq/L (5-15); Aspartate Amino Transferase 28 U/L (17-59); Bilirubin,Total 0.7 mg/dl (0.2-1.3); Blood Urea Nitrogen 17 mg/dl (9-20); Calcium 9.7 mg/dl (8.4-10.2); Carbon Dioxide 31 mmol/L (22.0-30.0); Chloride 105 mmol/L (98-107); Estimated Glomerular Filt Rate 82 ml/min (>60); GFR (African American) 99 ML/MIN (>60); Globulin 1.7 g/dL (1.3-3.2); Glucose 86 mg/dl (74-100); Lactate Dehydrogenase 296 U/L (313-618); Potassium 4.7 mmoL/L (3.5-5.1); Sodium 139 mmol/L (136-145); Total Protein,Serum 6.1 g/dl (6.3-8.2)
[2024-10-22 12:27] LABS: Lymphocytes % 93 % (10-50); Monocytes % 2 % (2-9); Neutrophils % 5 % (42-76); Total Cells Counted 100
[2024-10-22 12:33] LABS: Platelet Estimate Slight Decrease
[2024-10-22 12:34] LABS: Macrocytosis 1+
== END 2024-10-22 23:59 | disposition home or self-care (01) ==
LOC: LAB 10:25
PROVIDERS: PCP Family Medicine; Visit Provider Internal Medicine Medical Oncology
DX: C91.12 Chronic lymphocytic leukemia of B-cell type in relapse (principal)
CPT/HCPCS: 36415; 80053; 83615; 85007; 85025; 85027

== ENCOUNTER 2024-10-23 10:49 | Outpatient (CLI) | payer MEDICARE, SELFPAY ==
--- OUTSIDE RECORDS SUMMARY | 2024-10-23 10:52 | XMS_ITS | Encounter Summary ---
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
--- OUTSIDE RECORDS SUMMARY | 2024-10-23 10:52 | XMS_ITS | Encounter Summary ---
Author Organization [employer] Address [address] [place] [address] Care Team Providers Care Waitstaff Name Role Phone Eladio Lomas MD Unavailable Breanna Crow PA-C Unavailable [phone] Encounter Details Date Type Department Care Team (Late st Contact Info) Description 10/17/2021 Transcribed Document [facility] [place] [facility] [place] [address] ProviderJailyn MD [address] [place] [address] Social History Tobacco Use Types [...] to assume that as it was a bevel operator who did the biopsy, and and told [...] At risk for sleep apnea / IMO [id number] / Confirmed, Active Problems (2) At risk for sleep apnea Mitral valve prolapse documented in this encounter Plan of Treatment Not on file documented as of this encounter Visit Diagnoses Not on filedocumented in this encounter Care Teams Waitstaff Relationship Specialty Start Date End Date Eladio Lomas MD [address] [facility] [address] [place] [address] Medical Oncologist Hematology and Oncology 07/08/22 Breanna Crow, PA-C [address] [facility] [address] [place] [address] Physician Customs Port Director Oncology 07/08/22 documented as of this encounter
--- OUTSIDE RECORDS SUMMARY | 2024-10-23 10:52 | XMS_ITS | Encounter Summary ---
Author Organization [employer] Address [address] [place] [address] Care Team Providers Care Health Care Sanitary Technician Name Role Phone Eladio Lomas MD Unavailable Breanna Crow PA-C Unavailable [phone] Encounter Details Date Type Department Care Team (Late st Contact Info) Description 10/15/2021 Transcribed Document [facility] [place] [address] ProviderJailyn MD [address] [place], [place] [id number] Social History Tobacco Use Types Packs/Day Years [...] Advance Directive Verified/on Chart : No Tessy Gramajo RN-PATIENT CARE BEDSIDE NON-EXEMPT - 10/15/2021 4:48 EDT Anesthesia/Transfusion History Family History of Anesthesia Reaction : No prior transfusion(s) Blood Transfusion Acceptable to Patient : Yes Transfusion History : Prior anesthesia without reaction Family History of Anesthesia Reaction : None Tessy Gramajo RN-PATIENT CARE [facility] NON-EXEMPT - 10/15/2021 4:48 EDT Anticipated Discharge Needs Discharge To, Anticipated : Home Anticipated Discharge Needs at This Time : None Tessy Gramajo RN-PATIENT CARE [facility] NON-EXEMPT - 10/15/2021 4:48 EDT Education Topics, [...] : Verbalizes understanding Tessy Gramajo RN-PATIENT CARE [facility] NON-EXEMPT - 10/15/2021 4:48 EDT Functional Assessment Living Situation : Home Patient Lives With : Spouse Persons Assisting Patient at Home : Spouse Current Daily Living Assistance : None Mobility Assistance Prior to Admission : Independent KOWALSKI Hx Falls Immediate/Within 3 Months : Yes Current Home Treatments : None Home Equipment : None Tessy Gramajo RN-PATIENT CARE [facility] NON-EXEMPT - 10/15/2021 4:48 EDT General Info [...] Obtained From : Patient Primary Language : Kyrgyz Communication Barrier : None Incident Handler Needed : No Tessy Gramajo RN-PATIENT CARE [facility] NON-EXEMPT - 10/15/2021 4:48 EDT Fall Risk [...] Level : 46 or > High Risk [place] Fall Interventions : Adequate lighting, Assistive devices [...] Source : Stated Height Entry Format : [place] Height, Feet : 5 ft(Converted to: 152 cm, 60 Inch) Height, Inches : 6 Inch(Converted to: 0 ft 6 Inch, 15.24 cm) Clinical Height : 167.64 cm Weight Source : Bed scale Weight Entry Format : [place] Clinical Dosing Weight : 59.69 kg Weight, Pounds : 131 lb Weight, Ounces : 5 oz Body Surface Area (BSA) : 1.67 m2 Body Mass Index : 21.2 kg/m2 [place] Body Weight : 63 kg Tessy Gramajo [...] : Fully vaccinated Tessy Gramajo RN-PATIENT CARE [facility] NON-EXEMPT - 10/15/2021 4:48 EDT Infectious Disease [...] day) : NO Tessy Gramajo RN-PATIENT CARE [facility] NON-EXEMPT - 10/15/2021 4:48 EDT Physical contact outside [place] in the last 30 days : No Hospitalized in Foreign Country : No Infectious Disease History : Chicken pox/Shingles, Measles INF Disease TB Screening Calc : 0 INF Disease Recent Travel Calc : 0 Tessy Gramajo RN-PATIENT CARE [facility] NON-EXEMPT - 10/15/2021 4:48 EDT Tetanus Immunization Status Previous Tetanus Immunizations : No qualifying data available. Tetanus Immunization : Greater than 5 years Tessy Gramajo RN-PATIENT CARE [facility] NON-EXEMPT - 10/15/2021 4:48 EDT Influenza Vaccine Asmt, Adult Previous Vaccines from Immunization Schedule : No qualifying data available. Influenza Immunization, Current Season : Yes Tessy Gramajo RN-PATIENT CARE [facility] NON-EXEMPT - 10/15/2021 4:48 EDT Pneumococcal Vaccine Previous Vaccines from Immunization Schedule : No qualifying data available. Pneumonia Immunization Received : Unknown Pneumococcal Risk Assessment < Age 65 : N/A- Patient 65 years of age or older Pneumococcal Vaccine Contraindications : No contraindications to pneumococcal vaccine Transplant Workup/Recent Transplant : No Order for Pneumococcal Vaccine : Declined Vaccination Tessy Gramajo RN-PATIENT CARE [facility] NON-EXEMPT - 10/15/2021 4:48 EDT Order Details Order Detail : N/A Patient Needs Meds Crushed/Liquid : No Tessy Gramajo RN-PATIENT CARE [facility] NON-EXEMPT - 10/15/2021 4:48 EDT Nutrition History Feeding Ability : Independent Adaptive Feeding Equipment : None Adaptive Feeding Equipment : Regular Eating Poorly Due to Decreased Appetite : Yes Unplanned Weight Loss in Past 3-6 Months : Unsure Unplanned Weight Loss Amount : Unsure Malnutrition Screening Tool Total(mal) : 5 Malnutrition Screening Tool Risk Level : Patient at risk Tessy Gramajo RN-PATIENT CARE [facility] NON-EXEMPT - 10/15/2021 4:48 EDT [place] Suicide Severity Rating Scale (C-SSRS) CSSRS Past Month Wish to be : No CSSRS Past Month Suicidal Thoughts : No CSSRS Lifetime Suicide Behavior : No Suicide Severity Rating Score : 0 Suicide Severity Rating : No Additional Care Required at this time Tessy Gramajo RN-PATIENT CARE [facility] NON-EXEMPT - 10/15/2021 4:48 EDT Psychosocial History Does Someone Depend on You for Care? : No Chronic/Terminal Illness w/Freq Visits : Yes Do You Have a History of the Following? : Patient denies history Currently in Unsafe Situation : No Do You Have a Support System? : Yes Tessy Gramajo RN-PATIENT CARE [facility] NON-EXEMPT - 10/15/2021 4:48 EDT Sleep Apnea [...] Score : 3 Tessy Gramajo RN-PATIENT CARE [facility] NON-EXEMPT - 10/15/2021 4:48 EDT Spiritual/Cultural Needs Any Spiritual/Cultural Needs or Requests : No Tessy Gramajo RN-PATIENT CARE [facility] NON-EXEMPT - 10/15/2021 4:48 EDT Valuables and Belongings Valuables and Belongings : Clothing, Personal items Clothing : Common streetwear Clothing Disposition : With family Personal Items : Wallet Personal Items Disposition : With family Tessy Gramajo RN-PATIENT CARE [facility] NON-EXEMPT - 10/15/2021 4:48 EDT documented in this encounter Plan of Treatment Not on file documented as of this encounter Visit Diagnoses Not on filedocumented in this encounter Care Teams Health Care Sanitary Technician Relationship Specialty Start Date End Date Eladio Lomas MD [address] [facility] [address] [place] [address] Medical Oncologist Hematology and Oncology 07/08/22 Breanna Crow, PACecilia [address] [facility] [address] [place] [address] Physician Sales Representative Aircraft Oncology 07/08/22 documented as of this encounter
--- OUTSIDE RECORDS SUMMARY | 2024-10-23 10:52 | XMS_ITS | Encounter Summary ---
Author Organization [employer] Address [address] [place] [address] Care Team Providers Care Mysql Database Developer Name Role Phone Eladio Lomas MD Unavailable Breanna Crow PA-C Unavailable [phone] Encounter Details Date Type Department Care Team (Late st Contact Info) Description 10/15/2021 Transcribed Document [facility] [place] Family Medicine [facility] [place] [address] ProviderJailyn MD [address] [place] [address] Social History Tobacco Use Types [...] & time 10/15/2021 00:00:00, Voice recognition / computer lab assistant technology used for some documentation in this [...] CATH WINJX HRT ART& L VENTR IMG ([id number]).. Family history: Not significant. Social history: Social [...] EDT Height Source Stated Height Entry Format [place] Height/Length, ANGUILLAN (ft) 5 ft Height/Length ANGUILLAN 6 Inch CLINICALHEIGHT 167.64 cm [place] Body Weight 62.88 kg Weight Source, ED Critical estimated dosing weight Weight Entry Format Stephens Weight Niuean lb 180 lb CLINICALWEIGHT 81.82 kg Body [...] Triage: ED C-SSRS: ED Clinical Reconciliation: ED barber shop manager: ESR Sedimentation Rate Auto: Saline Lock Insert: [...] SEX: 1950 / Male MRN / ACC#: [id number] / [id number] ORDERING PHYSICIAN: Angelique Whitman. EXAM REQUESTED: [id number]--CI LUMBAR SPINE W/O CONTRAST FACILITY: [facility] DATE: 10/15/2021 RADIOLOGIST NAME: MD Lim Frank [...] of Guillain-Hoover??. - 10/15/2021 03:04:00 , CANDIDA GUO, DO-INT, [facility], phone call, recommends inpatient medsurg. Plan Condition: Stable. Limitations: Limited activity. Counseled: Patient, Family, Regarding diagnosis, Regarding diagnostic results, Regarding treatment plan, Patient indicated understanding of instructions. documented in this encounter Plan of Treatment Not on file documented as of this encounter Visit Diagnoses Not on filedocumented in this encounter Care Teams Mysql Database Developer Relationship Specialty Start Date End Date Eladio Lomas MD [address] [facility] [address] [address] Medical Oncologist Hematology and Oncology 07/08/22 Breanna Crow, PACecilia [address] [place] [address] Physician Soil Chemist Oncology 07/08/22 documented as of this encounter
--- OUTSIDE RECORDS SUMMARY | 2024-10-23 10:52 | XMS_ITS | Encounter Summary ---
Author Organization [facility] [employer] Address [address] [place] [address] Care Team Providers Care Hearing Aid Specialist Name Role Phone Eladio Lomas MD Unavailable Breanna Crow PA-C Unavailable [phone] Encounter Details Date Type Department Care Team (Late st Contact Info) Description 10/15/2021 Transcribed Document [facility] [place] Family Medicine [facility] [place] [address] ProviderJailyn MD [address] [place], [place] [id number] Social History Tobacco Use Types Packs/Day Years [...] Health Plan: [employer] CHO[employer] PPO Policy Number: [id number] Authorization Number: Insurance Primary Name : [employer] CHOICE PPO [id number] Authorization Status-Primary : Pending Reference Number-Primary : [id number] Authorized Service Begin Date-Primary : 10/15/2021 EDT Authorization Comments-Primary : [employer] CHO[employer] PPO auth pending per Star note. Historical Authorization Comments-Primary : No Authorization Comments Found JUANITA HUGO RN-Utilization Review - 10/15/2021 9:18 EDT documented in this encounter Plan of Treatment Not on file documented as of this encounter Visit Diagnoses Not on filedocumented in this encounter Care Teams Hearing Aid Specialist Relationship Specialty Start Date End Date Eladio Lomas MD [address] [facility] [address] [address] Medical Oncologist Hematology and Oncology 07/08/22 Breanna Crow, PA-C [address] [place] [address] Physician Employee Relation Manager Oncology 07/08/22 documented as of this encounter
--- OUTSIDE RECORDS SUMMARY | 2024-10-23 10:52 | XMS_ITS | Encounter Summary ---
Author Organization [employer] Address [address] [place] [address] Care Team Providers Care Sweatband Maker Name Role Phone Eladio Lomas MD Unavailable Breanna Crow PA-C Unavailable [phone] Encounter Details Date Type Department Care Team (Late st Contact Info) Description 10/15/2021 Transcribed Document [facility] [place] Family Medicine [facility] [place] [address] ProviderJailyn MD [address] [place], [place] [phone] Social History Tobacco Use Types Packs/Day Years [...] CARE BEDSIDE NON-EXEMPT - 10/15/2021 7:04 EDT Electronically signed by Rock Son Conversion Chief Librarian Extension Department Cerner at 08/17/2022 5:57 PM CDT documented in this encounter Plan of Treatment Not on file documented as of this encounter Visit Diagnoses Not on filedocumented in this encounter Care Teams Sweatband Maker Relationship Specialty Start Date End Date Eladio Lomas MD [address] [facility] [address], [place] [address] Medical Oncologist Hematology and Oncology 07/08/22 Breanna Crow, PACecilia [address] [place] [address] Physician Housekeeping Lead Oncology 07/08/22 documented as of this encounter
--- OUTSIDE RECORDS SUMMARY | 2024-10-23 10:52 | XMS_ITS | Encounter Summary ---
Author Organization [facility] [employer] Address [address] [place] [address] Care Team Providers Care Grill Attendant Name Role Phone Eladio Lomas MD Unavailable Breanna Crow PA-C Unavailable [phone] Encounter Details Date Type Department Care Team (Late st Contact Info) Description 10/15/2021 Transcribed Document [facility] [place] [facility] [place] [address] ProviderJailyn MD [address] [place], [place] [id number] Social History Tobacco Use Types Packs/Day Years [...] in person concerning the consult. Miladys Carter, Electronics Tech-Health Unit Coord - 10/15/2021 14:50 EDT documented in this encounter Plan of Treatment Not on file documented as of this encounter Visit Diagnoses Not on filedocumented in this encounter Care Teams Grill Attendant Relationship Specialty Start Date End Date Eladio Lomas MD [address] [facility] [address] [place] [address] Medical Oncologist Hematology and Oncology 07/08/22 Breanna Crow, CHAVA [address] [address] Physician It Business Analyst Oncology 07/08/22 documented as of this encounter
--- OUTSIDE RECORDS SUMMARY | 2024-10-23 10:52 | XMS_ITS | Referral Summary ---
Author Organization [employer] Address [address] [place] [address] Care Team Providers Care Gold Wheel Blocker And Polisher Name Role Phone Eladio Lomas MD Unavailable Breanna Crow PA-C Unavailable [phone] Allergies Active Allergy Reactions Criticality Noted [...] often do you attend chur ch or anabaptist services? Never 07/08/2022 Do you belong to any clubs o r organizations such as gnosticism groups, unions, fraternal or athletic groups, or [...] and heating? Not hard at all 07/08/2022 [facility] Occupat [facility] - Occupational [...] place to sleep or slept in a long-term (including now)? No 07/08/2022 Interpersonal Safety Answer [...] Date Ata rded Speak language other than [place]orran at home Not on file 05/13/2023 Want [...] Plan of Treatment Not on file Insurance [facility] MEDICARE PPO HUMANA MEDICARE PPO Care Teams Gold Wheel Blocker And Polisher Relationship Specialty Start Date End Date Eladio Lomas MD [address] [facility] [address] [place] [address] Medical Oncologist Hematology and Oncology 07/08/22 Breanna Crow, PARebelC [address] [facility] [address] [place] [address] Physician Core Blower Oncology 07/08/22
--- OUTSIDE RECORDS SUMMARY | 2024-10-23 10:52 | XMS_ITS | Encounter Summary ---
Author Organization [facility] Address [address] [place] [address] Care Team Providers Care Loin Trimmer Name Role Phone Per Patient, None Primary Care Provider Unavaila ble Encounter Details Date Type Department Care Team (Late st Contact Info) Description 01/07/2021 Orders Only [facility] [address] [place] [address] Maurisio Aguilar MD [address] [address] Social History Tobacco Use Types [...] 99 74 - 100 mg/dL [facility] External BUN 16 6 - 20 mg/dL [facility] External Creatinine Blood 0.93 0.70 - 1.28 mg/dL [facility] External BUN/Creat Ratio 17 10 - 20 (calc) [facility] External Sodium 141 136 - 145 mmol/L [facility] External Potassium 4.2 3.4 - 5.0 mmol/L [facility] External Chloride 102 98 - 107 mmol/L [facility] External Carbon Dioxide 25 22 - 31 mmol/L [facility] External Anion Gap (AG) 14 7 - 25 (calc) [facility] External Calcium 9.4 8.6 - 10.2 mg/dL [facility] External Total Protein 7.0 6.4 - 8.3 g/dL [facility] External Albumin 4.8 3.5 - 5.2 g/dL [facility] External Globulin 2.2 1.5 - 4.5 g/dL (calc) [facility] External Albumin/Globulin Ratio 2.2 1.1 - 2.5 (calc) [facility] External Bilirubin Total 0.4 0.1 - 1.2 mg/dL [facility] External Alkaline Phosphatase 85 40 - 129 U/L [facility] External AST (SGOT) 22 0 - 40 U/L [facility] External ALT (SGPT) 19 0 - 41 U/L [facility] External EGFR (If AFR/AM) 94 >=60 [facility] External Estimated GFR 81 >=60 [facility] Comment: NOTE Chronic kidney disease [...] BLOOD ORDERABLES Final Res ult [facility] [address] [place] [address], [place] [phone] documented in this encounter Visit Diagnoses Not on filedocumented in this encounter Care Teams Loin Trimmer Relationship Specialty Start Date End Date Per Patient, [place] [address] PCP - General 05/02/20 documented as of this encounter
--- OUTSIDE RECORDS SUMMARY | 2024-10-23 10:52 | XMS_ITS | Clinical Summary ---
Author Organization [facility] Address [address] [place] [address] Care Team Providers Care Sas Clinical Programmer Name Role Phone Per Patient, None Primary [...] or (1 - 1-dose 75+ series) 01/05/2023 [id number] Vaccine ( - season) 2024 07/25/2020, 06/24/2020, [...] this topic Insurance [employer]NA MEDICARE Care Teams Sas Clinical Programmer Relationship Specialty Start Date End Date Per Patient, [place] [address] PCP - General 05/02/20
--- OUTSIDE RECORDS SUMMARY | 2024-10-23 10:52 | XMS_ITS | Encounter Summary ---
Author Organization [facility] [employer] Address [address] [place] [address] Care Team Providers Care Textile Pin Worker Name Role Phone Eladio Lomas MD Unavailable Breanna Crow PA-C Unavailable [phone] Encounter Details Date Type Department Care Team (Late st Contact Info) Description 10/15/2021 Transcribed Document [facility] Family Medicine [facility] [place] [address] ProviderJailyn MD [address] [place], [place] [phone] Social History Tobacco Use Types Packs/Day Years [...] 10/15/2021 9:30 EDT Electronically signed by Huy [facility] Conversion Account Support Associate Cerner at 08/17/2022 6:01 PM CDT documented in this encounter Plan of Treatment Not on file documented as of this encounter Visit Diagnoses Not on filedocumented in this encounter Care Teams Textile Pin Worker Relationship Specialty Start Date End Date Eladio Lomas MD [address] [facility] [address] [address] Medical Oncologist Hematology and Oncology 07/08/22 Breanna Crow PA-C [address] [place] [address] [address] [place] [address] Physician Welding Supervisor Oncology 07/08/22 documented as of this encounter
--- OUTSIDE RECORDS SUMMARY | 2024-10-23 10:52 | XMS_ITS | Encounter Summary ---
Author Organization [employer] Address [address] [facility] [place] [address] Care Team Providers Care Archives Specialist Name Role Phone Ealdio Lomas MD Unavailable Breanna Crow PA-C Unavailable [phone] Encounter Details Date Type Department Care Team (Late st Contact Info) Description 10/17/2021 Transcribed Document [facility] [place] Family Medicine [facility] [place] [address] ProviderJailyn MD [address] [place] [address] Social History Tobacco Use Types [...] to fall prompting him to come to [facility] ED on 10/15. 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 A CT scan of lumbar spine [...] with pancreatic cancer SH: , lives in [place], [place]. Former remotes smoker, denies alcohol, or [...] None Rad: Radiology Results (Last 48 hours) [id number] -- 10/15/2021 03:06 MRI Spine Thoracic WO [...] Dr. Trena Donahue. Electronically signed by Huy [facility] Conversion Mobile Practice Lead Cerner at 08/17/2022 6:00 PM CDT documented in this encounter Plan of Treatment Not on file documented as of this encounter Visit Diagnoses Not on filedocumented in this encounter Care Teams Archives Specialist Relationship Specialty Start Date End Date Eladio Lomas MD [address] [facility] [address] [address] Medical Oncologist Hematology and Oncology 07/08/22 Breanna Crow PA-C [facility] [address] [place] [address] Physician Substance Abuse Therapist Oncology 07/08/22 documented as of this encounter
--- OUTSIDE RECORDS SUMMARY | 2024-10-23 10:52 | XMS_ITS | Clinical Summary ---
Author Organization [employer] Address [address] [place] [address] Care Team Providers Care Finisher Hand Name Role Phone Eladio Lomas MD Unavailable Breanna Crow PA-C Unavailable [phone] Allergies Active Allergy Reactions Criticality Noted [...] often do you attend chur ch or methodist services? Never 07/08/2022 Do you belong to any clubs o r organizations such as sikh groups, unions, fraternal or athletic groups, or [...] and heating? Not hard at all 07/08/2022 [facility] of Occupat ional Health - Occupational Stress [...] Date Ata rded Speak language other than [place] at home Not on file 05/13/2023 Want [...] Pneumococcal 50+ years Completed 02/09/[address] [place] [address] [facility] MEDICARE PPO [facility] MEDICARE PPO Care Teams Finisher Hand Relationship Specialty Start Date End Date Eladio Lomas MD [address] [facility] [address] [place] [address] Medical Oncologist Hematology and Oncology 07/08/22 Breanna Crow PA-C [address] [place] [address] Physician Transfer Specialist Oncology 07/08/22
--- OUTSIDE RECORDS SUMMARY | 2024-10-23 10:52 | XMS_ITS | Encounter Summary ---
Author Organization [facility] [employer] Address [address] [place] [address] Care Team Providers Care Padder Cushion Name Role Phone Eladio Lomas MD Unavailable Breanna Crow PA-C Unavailable [phone] Encounter Details Date Type Department Care Team (Late st Contact Info) Description 10/17/2021 Transcribed Document [facility] [place] [facility] [place] [address] ProviderJailyn MD [address] [place] [address] Social History Tobacco Use Types [...] Note - Jailyn Lira MD - 10/17/2021 2:00 AM CDT Chair Maker Details Entered On: 10/17/2021 5:10 EDT Performed [...] LPN-LVN-PATIENT CARE BEDSIDE - 10/17/2021 5:09 EDT documented in this encounter Plan of Treatment Not on file documented as of this encounter Visit Diagnoses Not on filedocumented in this encounter Care Teams Padder Cushion Relationship Specialty Start Date End Date Eladio Lomas MD [address] [facility] [address] [address] Medical Oncologist Hematology and Oncology 07/08/22 Breanna Crow, PACecilia [address] [address] Physician Diesel Mechanic Helper Oncology 07/08/22 documented as of this encounter
--- OUTSIDE RECORDS SUMMARY | 2024-10-23 10:52 | XMS_ITS | Encounter Summary ---
Author Organization [employer] In [employer] Address [address] [place] [address] Care Team Providers Care Budget Coordinator Name Role Phone Eladio Lomas MD Unavailable Breanna Crow PA-C Unavailable [phone] Encounter Details Date Type Department Care Team (Late st Contact Info) Description 10/15/2021 Transcribed Document [facility] [place] Family Medicine [facility] [place] [address] ProviderJailyn MD [address] [place], [place] [id number] Social History Tobacco Use Types Packs/Day Years [...] 10/15/2021 6:53 EDT Electronically signed by Huy, [facility] Conversion Embedded Linux Developer Cerner at 08/17/2022 6:19 PM CDT documented in this encounter Plan of Treatment Not on file documented as of this encounter Visit Diagnoses Not on filedocumented in this encounter Care Teams Budget Coordinator Relationship Specialty Start Date End Date Eladio Lomas MD 1210 [facility] [address] [place] [address] Medical Oncologist Hematology and Oncology 07/08/22 Breanna Crow, CHAVA [address] [place] [address] Physician Clay Thrower Oncology 07/08/22 documented as of this encounter
--- OUTSIDE RECORDS SUMMARY | 2024-10-23 10:52 | XMS_ITS | Encounter Summary ---
Author Organization [facility] In iatives Address [address] [place] [address] Care Team Providers Care Director Agency & Strategic Partnerships Name Role Phone Eladio Lomas MD Unavailable Breanna Crow PA-C Unavailable [phone] Encounter Details Date Type Department Care Team (Late st Contact Info) Description 10/15/2021 Transcribed Document [facility] [place] Family [place] [facility] [place] [address] ProviderJailyn MD [address] [place], [place] [id number] Social History Tobacco Use Types Packs/Day Years [...] on filedocumented in this encounter Care Teams Director Agency & Strategic Partnerships Relationship Specialty Start Date End Date Eladio Lomas MD 1210 [facility] [address] [place] [address] Medical Oncologist Hematology and Oncology 07/08/22 Breanna Crow, PA-C [facility] [address] [place], [place] [id number] Physician Bottom Worker Oncology 07/08/22 documented as of this encounter
--- OUTSIDE RECORDS SUMMARY | 2024-10-23 10:52 | XMS_ITS | Encounter Summary ---
Author Organization [employer] In iatives Address [address] [place] [address] Care Team Providers Care Heater Operator Name Role Phone Eladio Lomas MD Unavailable Breanna Crow PA-C Unavailable [phone] Encounter Details Date Type Department Care Team (Late st Contact Info) Description 10/17/2021 Transcribed Document [facility] [place] Family Medicine [place] [address] ProviderJailyn MD [address] [place] [address] Social History Tobacco Use Types [...] on filedocumented in this encounter Care Teams Heater Operator Relationship Specialty Start Date End Date Eladio Lomas MD 1210 [facility] [address] [place] [address] Medical Oncologist Hematology and Oncology 07/08/22 Breanna Crow PA-C 3470 [facility] [address] [place] [address] Physician Transmitter Engineer Oncology 07/08/22 documented as of this encounter
--- OUTSIDE RECORDS SUMMARY | 2024-10-23 10:52 | XMS_ITS | Encounter Summary ---
Author Organization [employer] In iatives Address [address] [place] [address] Care Team Providers Care Acetylene Cutter Name Role Phone Eladio Lomas MD Unavailable Breanna Crow PA-C Unavailable [phone] Encounter Details Date Type Department Care Team (Late st Contact Info) Description 10/15/2021 Transcribed Document [facility] [place] [address] ProviderJailyn MD [address] [place] [address] Social History Tobacco Use Types [...] 10/15/2021 12:32 EDT Electronically signed by Huy [facility] Conversion Engraver Set Up Operator Cerner at 08/17/2022 6:13 PM CDT documented in this encounter Plan of Treatment Not on file documented as of this encounter Visit Diagnoses Not on filedocumented in this encounter Care Teams Acetylene Cutter Relationship Specialty Start Date End Date Eladio Lomas MD 1210 [facility] [address] [id number] Medical Oncologist Hematology and Oncology 07/08/22 Breanna Crow PA-C [address] [place] [address] Physician Field Property Loss Specialist Oncology 07/08/22 documented as of this encounter
--- OUTSIDE RECORDS SUMMARY | 2024-10-23 10:52 | XMS_ITS | Encounter Summary ---
Author Organization [employer] In iatives Address [address] [place] [address] Care Team Providers Care Data Processing Manager Name Role Phone Eladio Lomas MD Unavailable Breanna Crow PA-C Unavailable [phone] Encounter Details Date Type Department Care Team (Late st Contact Info) Description 10/15/2021 Transcribed Document [facility] [place] Medicine [facility] [place] [address] ProviderJailyn MD [address] [place], [place] [id number] Social History Tobacco Use Types Packs/Day Years [...] - Medical Enoxaparin 40 mg, SubCutaneous, Inj, L20BYer, Routine, Start 10/15/21 7:00:00 EDT, 10/15/21 6:07:00 [...] ALYC # 4 K/uL 10/15/2021 00:19 EDT [place] Percent Man 19 % (High) 10/15/2021 00:19 EDT RBC Morphology Normal 10/15/2021 00:[address] Estimate Adequate 10/15/2021 00:19 EDT Sed Rate Auto 5 mm/Hr 10/15/2021 00:19 EDT Slide Review Add Diff 10/15/2021 00:19 EDT D Dimer Quant 1039 ng/mL (High) 10/15/2021 00:19 EDT Additional Documentation Code Status Start: 10/15/21 5:38:00 EDT, DNR Full Treatment-No Intubation/No ACLS, Continuous Order Electronically signed by [facility], [facility] Conversion Watershed Tender Cerner at 08/17/2022 5:58 PM CDT documented in this encounter Plan of Treatment Not on file documented as of this encounter Visit Diagnoses Not on filedocumented in this encounter Care Teams Data Processing Manager Relationship Specialty Start Date End Date Eladio Lomas MD 1210 [facility] [address] [place] [address] Medical Oncologist Hematology and Oncology 07/08/22 Breanna Crow, PACecilia 3470 [facility] [address] [place] [address] Physician Heel Emery Buffer Oncology 07/08/22 documented as of this encounter
--- OUTSIDE RECORDS SUMMARY | 2024-10-23 10:52 | XMS_ITS | Encounter Summary ---
Author Organization [facility] Address [address] [id number] Care Team Providers Care Supervisor Hot Dip Tinning Name Role Phone Per Patient, None Primary Care Provider Unavaila ble Encounter Details Date Type Department Care Team ([facility] st Contact Info) Description 10/08/2021 Lab Requisition [facility] [address] [place] [address] Maurice Power MD [facility] [place] [address] Unspecified lesions of oral mucosa [...] billing purposes only. 10/26/2021 7:22 AM EDT [facility] at 0722 EDT Case Report Surgical Pathology Report Case: [id number] Authorizing Provider: Maurice Power MD Collected: 10/08/2021 Ordering Location: [facility] Received: 10/08/2021 1929 Pathologist: Cindy Flores MD Specimen: [id number] 10/26/2021 7:22 AM EDT [facility] Tissue 10/08/2021 10/08/2021 4:5 9 PM EDT us Maurice Power MD LAB PATHOLOGY ORDERABLES Final Result [facility] [address] [place] [address] documented in this encounter Visit Diagnoses Diagnosis Unspecified lesions of oral mucosa documented in this encounter Care Teams Supervisor Hot Dip Tinning Relationship Specialty Start Date End Date Per Patient, [place] [address] PCP - General 05/02/20 documented as of this encounter
--- OUTSIDE RECORDS SUMMARY | 2024-10-23 10:52 | XMS_ITS | Encounter Summary ---
Author Organization [employer] Address [address] [place] [address] Care Team Providers Care Dinner Cook Name Role Phone Eladio Lomas MD Unavailable Breanna Crow PA-C Unavailable [phone] Encounter Details Date Type Department Care Team (Late st Contact Info) Description 10/15/2021 Transcribed Document [facility] [place] Medicine [facility] [place] [address] ProviderJailyn MD [address] [place] [address] Social History Tobacco Use Types [...] on filedocumented in this encounter Care Teams Dinner Cook Relationship Specialty Start Date End Date Eladio Lomas MD 1210 [facility] [address] [place] [address] Medical Oncologist Hematology and Oncology 07/08/22 Breanna Crow PA-C [address] [id number] Physician Plant Controller Oncology 07/08/22 documented as of this encounter
--- OUTSIDE RECORDS SUMMARY | 2024-10-23 10:52 | XMS_ITS | Encounter Summary ---
Author Organization [facility] [employer] In iatives Address [address] [place] [address] Care Team Providers Care Operations Research Director Name Role Phone Eladio Lomas MD Unavailable Breanna Crow PA-C Unavailable [phone] Encounter Details Date Type Department Care Team (Late st Contact Info) Description 10/15/2021 Transcribed Document [facility] [place] [facility] [place] [address] ProviderJailyn MD [address] [place], [place] [address] Social History Tobacco Use Types Packs/Day Years [...] Health Plan: [employer] CHOICE PPO Policy Number: [id number] Authorization Number: Insurance Primary Name : [employer] CHOICE PPO [id number] Authorization Status-Primary : Pending Reference Number-Primary : [id number] Authorized Service Begin Date-Primary : 10/15/2021 EDT Historical Authorization Comments-Primary : Comment 1: [employer] CHOICE PPO auth pending per Star note. (JUANITA HUGO, RN-Utilization Review 10/15/2021 09:18) Natalie Lauren, Rn-Utilization Review - 10/15/2021 9:29 EDT documented in this encounter Plan of Treatment Not on file documented as of this encounter Visit Diagnoses Not on filedocumented in this encounter Care Teams Operations Research Director Relationship Specialty Start Date End Date Eladio Lomas MD 1210 [facility] [place] [address] Medical Oncologist Hematology and Oncology 07/08/22 Breanna Crow, PA-C [address] [place] [address] [address] [place] [address] Lamp Cleaner Oncology 07/08/22 documented as of this encounter
--- OUTSIDE RECORDS SUMMARY | 2024-10-23 10:52 | XMS_ITS | Encounter Summary ---
Author Organization [facility] [employer] In [employer]atives Address [address] [facility] [place] [address] Care Team Providers Care Cargo Vessel Stewardess Name Role Phone Eladio Lomas MD Unavailable Breanna Crow PA-C Unavailable [phone] Encounter Details Date Type Department Care Team (Late st Contact Info) Description 10/15/2021 Transcribed Document [facility] [place] [facility] [place] [address] ProviderJailyn MD [address] [place] [address] Social History Tobacco Use Types [...] on filedocumented in this encounter Care Teams Cargo Vessel Stewardess Relationship Specialty Start Date End Date Eladio Lomas MD 1210 [facility] [address] [address] Medical Oncologist Hematology and Oncology 07/08/22 Breanna Crow, PACecilia [address] [address] Physician Printed Circuit Board Reworker Oncology 07/08/22 documented as of this encounter
--- OUTSIDE RECORDS SUMMARY | 2024-10-23 10:52 | XMS_ITS | Encounter Summary ---
Author Organization [employer] In [employer]atives Address [address] [place] [address] Care Team Providers Care Wardrobe Specialty Worker Name Role Phone Eladio Lomas MD Unavailable Breanna Crow PA-C Unavailable Encounter Details Date Type Department Care Team (Late st Contact Info) Description 10/15/2021 Transcribed Document [facility] [place] [place] Family Medicine [facility] [place] [address] ProviderJailyn MD [address] [place] [address] Social History Tobacco Use Types [...] CARE BEDSIDE NON-EXEMPT - 10/15/2021 7:05 EDT documented in this encounter Plan of Treatment Not on file documented as of this encounter Visit Diagnoses Not on filedocumented in this encounter Care Teams Wardrobe Specialty Worker Relationship Specialty Start Date End Date Eladio Lomas MD 1210 [facility] [address] [address] Medical Oncologist Hematology and Oncology 07/08/22 Breanna Crow PA-C [address] [place] [address] Physician Plumber Maintenance Oncology 07/08/22 documented as of this encounter
--- OUTSIDE RECORDS SUMMARY | 2024-10-23 10:52 | XMS_ITS | Encounter Summary ---
Author Organization [facility] [employer] In iatives Address [address] [place] [address] Care Team Providers Care Inventory Audit Clerk Name Role Phone Eladio Lomas MD Unavailable Breanna Crow PA-C Unavailable [phone] Encounter Details Date Type Department Care Team (Late st Contact Info) Description 10/15/2021 Transcribed Document [facility] [place] [address] ProviderJailyn MD [address] [place], [place] [id number] Social History Tobacco Use Types Packs/Day Years [...] Health Plan: HU[employer] CHOICE PPO Policy Number: [id number] Authorization Number: Insurance Primary Name : [employer] CHOICE PPO [id number] Authorization Status-Primary : Awaiting callback Reference Number-Primary : [id number] Authorized Service Begin Date-Primary : 10/15/2021 EDT Authorization Comments-Primary : Clinicals faxed via [facility] Historical Authorization Comments-Primary : Comment 1: [employer] CHOICE PPO auth pending per Star note. (JUANITA HUGO, RN-Utilization Review 10/15/2021 09:18) Natalie Lauren, Rn-Utilization Review - 10/15/2021 9:30 EDT Electronically signed by [facility], [facility] Conversion Technology Recruiter Cerner at 08/17/2022 5:57 PM CDT documented in this encounter Plan of Treatment Not on file documented as of this encounter Visit Diagnoses Not on filedocumented in this encounter Care Teams Inventory Audit Clerk Relationship Specialty Start Date End Date Eladio Lomas MD 1210 [facility] [address] [place] [address] Medical Oncologist Hematology and Oncology 07/08/22 Breanna Crow PA-C [address] [address] Physician Engineer Technical Staff Oncology 07/08/22 documented as of this encounter
--- OUTSIDE RECORDS SUMMARY | 2024-10-23 10:52 | XMS_ITS | Encounter Summary ---
Author Organization [facility] [employer] In iatives Address [address] [place] [address] Care Team Providers Care Stone Derrickman And Rigger Name Role Phone Eladio Lomas MD Unavailable Breanna Crow PA-C Unavailable [phone] Encounter Details Date Type Department Care Team (Late st Contact Info) Description 10/15/2021 Transcribed Document [facility] [place] Family Medicine [facility] [place] [address] ProviderJailyn MD [address] [place] [address] Social History Tobacco Use Types [...] 71 y/o male who was admitted to [facility] [place]/2021 with RLE weakness and paresthesia. [...] (RLE vs LLE) in L5 dermatomal distribution. SOFÍA CROFT PHYSICAL THERAPIST NON-EXEMPT - 10/17/2021 [...] PHYSICAL THERAPIST NON-EXEMPT - 10/17/2021 10:13 EDT Chief Design Drafter Goals Transfer LTG Grid Goal #1 Destination [...] on filedocumented in this encounter Care Teams Stone Derrickman And Rigger Relationship Specialty Start Date End Date Eladio Lomas MD [address] [place] [address] Medical Oncologist Hematology and Oncology 07/08/22 Breanna Crow PA-C [address] [facility] [address] [place] [address] Physician Lead Injection Mold Technician Oncology 07/08/22 documented as of this encounter
--- OUTSIDE RECORDS SUMMARY | 2024-10-23 10:52 | XMS_ITS | Encounter Summary ---
Author Organization [facility] [employer] In iatives Address [address] [place] [address] Care Team Providers Care Refrigerating Technician Name Role Phone Eladio Lomas MD Unavailable Breanna Crow PA-C Unavailable [phone] Encounter Details Date Type Department Care Team (Late st Contact Info) Description 10/15/2021 Transcribed Document [facility] [place] Family Medicine [facility] [place] [address] ProviderJailyn MD [address] [place] [address] Social History Tobacco Use Types [...] on filedocumented in this encounter Care Teams Refrigerating Technician Relationship Specialty Start Date End Date Eladio Lomas MD 1210 [facility] [address] [place] [address] Medical Oncologist Hematology and Oncology 07/08/22 Breanna Crow PA-C [address] [id number] Physician Retail Store Associate Oncology 07/08/22 documented as of this encounter
--- OUTSIDE RECORDS SUMMARY | 2024-10-23 10:52 | XMS_ITS | Encounter Summary ---
Author Organization [facility] [employer] In [employer]atives Address [address] [place] [address] Care Team Providers Care Equipment Detailer Name Role Phone Eladio Lomas MD Unavailable Breanna Crow PA-C Unavailable [phone] Encounter Details Date Type Department Care Team (Late st Contact Info) Description 10/15/2021 Transcribed Document [facility] [place] [facility] [place] [address] ProviderJailyn MD [address] [place], [place] [phone] Social History Tobacco Use Types Packs/Day Years [...] INGRAM MD-SERENE Physician Requested for Consult : HSARON PATRICIO MD-ORT Date and Time Call Returned : 10/15/2021 14:40 EDT Consult, Additional Information : Spoke with Dr. Rosenberg on the phone concerning the consult. Miladys Carter, [facility] - 10/15/2021 14:41 EDT documented in this encounter Plan of Treatment Not on file documented as of this encounter Visit Diagnoses Not on filedocumented in this encounter Care Teams Equipment Detailer Relationship Specialty Start Date End Date Eladio Lomas MD [address] [address] Medical Oncologist Hematology and Oncology 07/08/22 Breanna Crow, PA-C [address] [address] Physician Disability Program Navigator Oncology 07/08/22 documented as of this encounter
--- OUTSIDE RECORDS SUMMARY | 2024-10-23 10:52 | XMS_ITS | Encounter Summary ---
Author Organization [employer] Address [address] [place] [address] Care Team Providers Care Quality Control Director Name Role Phone Eladio Lomas MD Unavailable Breanna Crow PA-C Unavailable [phone] Encounter Details Date Type Department Care Team (Late st Contact Info) Description 10/15/2021 Transcribed Document [facility] [place] [address] ProviderJailyn MD [address] [place] [address] Social History Tobacco Use Types [...] At risk for sleep apnea / IMO [id number] / Confirmed, Active Problems (2) At risk for sleep apnea Mitral valve prolapse Objective VS/Measurements Measurements from flowsheet : Measurements 10/15/2021 4:48 EDT Height Source Stated Height Entry Format Norton Height/Length, BAHRAINI (ft) 5 ft Height/Length BAHRAINI 6 Inch CLINICALHEIGHT 167.64 cm [place] Body Weight 63 kg Weight Source Bed scale Weight Entry Format Norton Weight Sudanese lb 131 lb Weight Sudanese oz 5 oz CLINICALWEIGHT 59.69 kg Body Surface Area (BSA) 1.67 m2 Body Mass Index 21.2 kg/m2 10/15/2021 3:09 EDT Height Source Not Done: Task Duplication (Not Done) Height Entry Format Not Done: Task Duplication (Not Done) Weight Source Not Done: Task Duplication (Not Done) 10/14/2021 18:31 EDT Height Source Stated Height Entry Format Norton Height/Length, BAHRAINI (ft) 5 ft Height/Length BAHRAINI 6 Inch CLINICALHEIGHT 167.64 cm [place] Body Weight 62.88 kg Weight Source, ED Critical estimated dosing weight Weight Entry Format Norton Weight Sudanese lb 180 lb CLINICALWEIGHT 81.82 kg Body Surface Area (BSA) 1.91 m2 Body Mass Index 29.1 kg/m2 HI Electronically signed by H[facility] Conversion Laborer Pie Bakery Cerner at 08/17/2022 6:12 PM CDT documented in this encounter Plan of Treatment Not on file documented as of this encounter Visit Diagnoses Not on filedocumented in this encounter Care Teams Quality Control Director Relationship Specialty Start Date End Date Eladio Lomas MD [address] [address] Medical Oncologist Hematology and Oncology 07/08/22 Breanna Crow PA-C [address] [place] [address] [address] [place] [id number] Physician Slot Operations Manager Oncology 07/08/22 documented as of this encounter
--- OUTSIDE RECORDS SUMMARY | 2024-10-23 10:52 | XMS_ITS | Encounter Summary ---
Author Organization [facility] Address [address] [place] [address] Care Team Providers Care Payroll Benefits Administrator Name Role Phone Per Patient, None Primary Care Provider Unavaila ble Encounter Details Date Type Department Care Team (Late st Contact Info) Description 01/07/2021 Orders Only [facility] [address] [place] [address] Maurisio Aguilar MD [address] [address] Social History Tobacco Use Types [...] External WBC 6.9 3.8 - 10.8 K/uL [facility] External Red Blood Cell (RBC) 5.24 4.20 - 5.80 M/uL [facility] External Hemoglobin 15.5 14.0 - 18.0 G/DL [facility] External Hematocrit 44.1 40.0 - 52.0 % [facility] External MCV 84 80 - 100 fL [facility] External MCH 30 26 - 35 PG [facility] External MCHC 35 32 - 36 G/DL [facility] External RDW 13.5 11.0 - 15.0 % [facility] External Mean Platelet Volume 7.6 6.2 - 10.5 fL [facility] External Platelets 162 130 - 400 K/uL [facility] External Neutrophil# 3.0 1.6 - 8.4 K/uL [facility] External Lymphocyte# 3.2 0.4 - 5.1 K/uL [facility] External Absolute Monocyte (Abs Bulloch) 0.4 0.0 - 1.2 K/uL [facility] External Eosinophils# 0.1 0.0 - 0.8 K/uL [facility] External Baso# 0.0 0.0 - 0.3 K/uL [facility] External Neutrophils % 43.0 42.0 - 78.0 % [facility] External Lymphocyte % 46.0 11.0 - 47.0 % [facility] External Monocyte % 6.0 0.0 - 11.0 % [facility] External Eosinophil% 1.0 0.0 - 7.0 % [facility] External Basophil % 0.0 0.0 - 3.0 % [facility] External Nucleated RBC%-Auto 0.2 0.0 - 0.9 % [facility] External Nucleated RBC Absolute 0.01 Not Estab. K/uL [facility] 01/07/2021 10:0 5 AM EDT 01/07/2021 10:20 AM EDT us Maurisio Aguilar MD LAB BLOOD ORDERABLES Final Res ult Performing Organization Address City/State/[facility] Co de Phone Number [facility] [address] [phone], documented in this encounter Visit Diagnoses Not on filedocumented in this encounter Care Teams Payroll Benefits Administrator Relationship Specialty Start Date End Date Per Patient, [place] [address] PCP - General 05/02/20 documented as of this encounter
--- OUTSIDE RECORDS SUMMARY | 2024-10-23 10:52 | XMS_ITS | Encounter Summary ---
Author Organization [employer] In iatives Address [address] [facility] [place] [address] Care Team Providers Care Environmental Quality Analyst Name Role Phone Eladio Lomas MD Unavailable Breanna Crow PA-C Unavailable [phone] Encounter Details Date Type Department Care Team (Late st Contact Info) Description 10/17/2021 Transcribed Document [facility] [place] [facility] [place] [address] ProviderJailyn MD [address] [place] [address] Social History Tobacco Use Types [...] # 4.35 K/uL (High) 10/17/2021 02:21 EDT [place] % 15.2 % (High) 10/17/2021 02:21 EDT [place] # 2.14 K/uL (High) 10/17/2021 02:21 EDT [...] on filedocumented in this encounter Care Teams Environmental Quality Analyst Relationship Specialty Start Date End Date Eladio Lomas MD [address] [facility] [address] [place] [address] Medical Oncologist Hematology and Oncology 07/08/22 Breanna Crow, PARebelC [address] [facility] [address] [place] [address] Physician Rotary Engine Assembler Oncology 07/08/22 documented as of this encounter
--- OUTSIDE RECORDS SUMMARY | 2024-10-23 10:52 | XMS_ITS | Encounter Summary ---
Author Organization [employer] In iatives Address [address] [place] [address] Care Team Providers Care Healthcare Receptionist Name Role Phone Eladio Lomas MD Unavailable Breanna Crow PA-C Unavailable [phone] Encounter Details Date Type Department Care Team (Late st Contact Info) Description 10/15/2021 Transcribed Document [facility] [place] [facility] [place] [address] ProviderJailyn MD [address] [place], [place] [phone] Social History Tobacco Use Types Packs/Day Years [...] 10/15/2021 15:55 EDT Electronically signed by Huy [facility] Conversion Forming Fixer Cerner at 08/17/2022 5:55 PM CDT documented in this encounter Plan of Treatment Not on file documented as of this encounter Visit Diagnoses Not on filedocumented in this encounter Care Teams Healthcare Receptionist Relationship Specialty Start Date End Date Eladio Lomas MD 1210 [facility] [address] [place] [address] Medical Oncologist Hematology and Oncology 07/08/22 Breanna Crow PA-C [address] [address] Physician Multiple Resaw Operator Oncology 07/08/22 documented as of this encounter
--- OUTSIDE RECORDS SUMMARY | 2024-10-23 10:52 | XMS_ITS | Encounter Summary ---
Author Organization Healthcare Address [address] [place] [address] Care Team Providers Care Claim Clinician Name Role Phone Per Patient, None Primary Care Provider Unavaila ble Encounter Details Date Type Department Care Team (Late st Contact Info) Description 01/07/2021 Orders Only [facility] at [facility] [address] [place] [address] Maurisio Aguilar MD [address] [address] Social History Tobacco Use Types [...] Band Neutrophil% 0.0 0.0 - 7.0 % [facility] External Atypical Lymph% 4(H) 0 - 1 % [facility] External Metamyelocyte % 0 0 - 1 % [facility] External Myelocyte % 0 0 - 1 % [facility] External Promyelocyte% 0 % [facility] External Blast% 0 % [facility] External Nucleated RBC%-Manual 0 /[address] [facility] External Smudge Cells [address] [facility] External Platelet Morphology NORMAL [facility] External Ovalocytes SLIGHT(A) [facility] External Tear Drop Cells SLIGHT(A) [facility] 01/07/2021 10:0 5 AM EDT 01/07/2021 10:20 AM EDT us Maurisio Aguilar MD LAB BLOOD ORDERABLES Final Res ult Performing Organization Address City/State/[facility] Co de Phone Number [facility] [address] [place] [address], documented in this encounter Visit Diagnoses Not on filedocumented in this encounter Care Teams Claim Clinician Relationship Specialty Start Date End Date Per Patient, [place] [address] PCP - General 05/02/20 documented as of this encounter
--- OUTSIDE RECORDS SUMMARY | 2024-10-23 10:53 | XMS_ITS | Encounter Summary ---
Author Organization [facility] [employer] In iatives Address [address] [place] [address] Care Team Providers Care Fancy Wire Drawer Name Role Phone Eladio Lomas MD Unavailable Breanna Crow PA-C Unavailable [phone] Encounter Details Date Type Department Care Team (Late st Contact Info) Description 10/16/[address] [facility] [place] Family Medicine [facility] [place] [address] ProviderJailyn MD [address] [place] [address] Social History Tobacco Use Types [...] Historical ProviderMD - 10/16/2021 2:00 AM CDT Geotechnical Engineering Technician Details Entered On: 10/16/2021 4:15 EDT Performed [...] on filedocumented in this encounter Care Teams Fancy Wire Drawer Relationship Specialty Start Date End Date Eladio Lomas MD [address] [facility] [address] [place] [address] Medical Oncologist Hematology and Oncology 07/08/22 Breanna Crow PA-C [address] [address] Physician Plant Operations Worker Oncology 07/08/22 documented as of this encounter
--- OUTSIDE RECORDS SUMMARY | 2024-10-23 10:53 | XMS_ITS | Encounter Summary ---
Author Organization [facility] [employer] In iatives Address [address] [facility] [place] [address] Care Team Providers Care Metal Off Bearer Name Role Phone Eladio Lomas MD Unavailable Breanna Crow PA-C Unavailable [phone] Encounter Details Date Type Department Care Team (Late st Contact Info) Description 01/01/2022 Transcribed Document [facility] [place] Family Medicine [facility] [place] [address] ProviderJailyn MD [address] [place] [address] Social History Tobacco Use Types [...] Lira MD - 01/01/2022 12:59 PM CDT [address] [address] SARAH HU :1950 Visit Time:01/01/2022 [...] for follow-up date and appointment time Activity: [place] dressing. Do not remove. May shower with [...] MD-ORT When 01/14/2022 11:00 AM EDT Where: [address] [place] [address] [place] [address]- Medications What How Much When Instructions Next [...] [facility]: [address] [phone] Take your medications faithfully. Do NOT skip [...] these instructions at home: Medicines ??? Take wkfs-qfe-mbzeimq and prescription medicines as told by your [...] keep your urine pale yellow. ? Take ygpd-fgm-rgktqdr or prescription medicines. ? Eat foods that [...] and water are not available, use hand mail handler assistant. ? Change your dressing as told by [...] safe to drive. General instructions ??? Take ktld-nyp-lkaqgyn and prescription medicines only as told by [...] provider. Document Revised: 08/06/2020 Document Reviewed: 08/06/2020 [employer] Patient Education ?? 2021 [employer] Laminectomy, Care After This sheet gives [...] these instructions at home: Medicines ??? Take pcgj-sbx-atimbup and prescription medicines only as told by [...] keep your urine pale yellow. ? Take fpee-fue-tcvxtdu or prescription medicines. ? Eat foods that [...] and water are not available, use hand mail handler assistant. ? Change your dressing as told by [...] provider. Document Revised: 11/12/2019 Document Reviewed: 11/12/2019 ElseYoka Patient Education ?? 2021 [employer]. Emergency Awareness and Preventative Care STROKE is [...] Assistance with quitting is available by contacting 5-886-YINZ-NOW. This is a free resource providing counseling, [...] was given the opportunity to ask questions. Patient/Shipping Agent Name: Patient/Shipping Agent Signature: Relationship to Patient: Clinician/Hospital Shipping Agent Signature: Date: documented in this encounter Plan of Treatment Not on file documented as of this encounter Visit Diagnoses Not on filedocumented in this encounter Care Teams Metal Off Bearer Relationship Specialty Start Date End Date Eladio Lomsa MD 12[address] [facility] [address] [place] [address] Medical Oncologist Hematology and Oncology 07/08/22 Breanna Crow PA-C [address] [facility] [address] [place] [address] Physician Cloth Hand Oncology 07/08/22 documented as of this encounter
--- OUTSIDE RECORDS SUMMARY | 2024-10-23 10:53 | XMS_ITS | Encounter Summary ---
Author Organization [facility] [employer] In iatives Address [address] [place] [address] Care Team Providers Care Sand Polisher Name Role Phone Eladio Lomas MD Unavailable Breanna Crow PA-C Unavailable [phone] Encounter Details Date Type Department Care Team (Late st Contact Info) Description 10/26/2021 Transcribed Document [facility] [place] [facility] [place] [address] ProviderJailyn MD [address] [place] [address] Social History Tobacco Use Types [...] Discharge Summary on 10/18/2021 by Wilberto Brantley CDS/Director Custom Signature: Gui Barnhartjimena Phone #: Date/Time: 10/27/2021 00:42 This is a permanent part of the Medical Record Q55 2020 [employer] Authors Reviewed: 07/2020 Q55 2020 [employer] Authors Reviewed: 07/2020 documented in this encounter Plan of Treatment Not on file documented as of this encounter Visit Diagnoses Not on filedocumented in this encounter Care Teams Sand Polisher Relationship Specialty Start Date End Date Eladio Lomas MD [address] [facility] [address] [place] [address] Medical Oncologist Hematology and Oncology 07/08/22 Breanna Crow, PACecilia [address] [place] [address] Physician Manager Environmental Services Oncology 07/08/22 documented as of this encounter
--- OUTSIDE RECORDS SUMMARY | 2024-10-23 10:53 | XMS_ITS | Encounter Summary ---
Author Organization [facility] [employer] In iatives Address [address] [place] [address] Care Team Providers Care Tuber Machine Operator Helper Name Role Phone Eladio Lomas MD Unavailable Breanna Crow PA-C Unavailable [phone] Encounter Details Date Type Department Care Team (Late st Contact Info) Description 10/18/2021 Transcribed Document [facility] [place] [address] ProviderJailyn MD [address] [place] [address] Social History Tobacco Use Types [...] APSO; TOREY DAVISON MD 10/17/2021 11:52 EDT documented in this encounter Plan of Treatment Not on file documented as of this encounter Visit Diagnoses Not on filedocumented in this encounter Care Teams Tuber Machine Operator Helper Relationship Specialty Start Date End Date Eladio Lomas MD [address] [facility] [place] [address] Medical Oncologist Hematology and Oncology 07/08/22 Breanna Crow PA-C [address] [place] [address] [place] [address] Physician Adjunct Lecturer Oncology 07/08/22 documented as of this encounter
--- OUTSIDE RECORDS SUMMARY | 2024-10-23 10:53 | XMS_ITS | Encounter Summary ---
Author Organization [facility] [employer] In iatives Address [address] [place] [address] Care Team Providers Care Coremaker Apprentice Name Role Phone Eladio Lomas MD Unavailable Breanna Crow PA-C Unavailable [phone] Encounter Details Date Type Department Care Team (Late st Contact Info) Description 10/18/2021 Transcribed Document [facility] [place] Medicine [facility] [place] [address] ProviderJailyn MD [address] [place] [address] Social History Tobacco Use Types [...] Lira MD - 10/18/2021 12:28 [place] [address] SARAH HU :1950 Visit Time:10/15/2021 Your Visit [...] PANIAGUA When Within 2 weeks Where: [address] [address]- Business (1) Medications What [...] 10 mg daily in total Pickup at [facility] #74514 This evening predniSONE (predniSONE 10 mg oral tablet) See instructions Taper course of prednisone as following: First day 6 tabs, second day 5 tabs, third day 4 tabs, fourth day 3 tabs, fifth day 2 tabs, sixth day 1 tab, seventh half tab and eighth half tab Pickup at [facility] #32137 This afternoon valACYclovir (Valtrex 500 mg oral [...] instructions 1 Oral Daily Tomorrow Pharmacy Information [facility] #77484: [address] [place] [phone] Take your medications faithfully. Do NOT skip [...] intense exercise for several days. ??? Take axfo-syx-rtefdrb and prescription medicines only as told by [...] not known. ??? Stay hydrated, and take sykp-elo-wlqlqqt and prescription medicines only as told by your health care provider. This information is not intended to replace advice given to you by your health care provider. Make sure you discuss any questions you have with your health care provider. Document Revised: 09/03/2020 Document Reviewed: 09/03/2020 ElseJumping Nuts Patient Education ?? 2020 [employer]Room. Emergency Awareness and Preventative Care STROKE is [...] Assistance with quitting is available by contacting 5-619-BKWW-NOW. This is a free resource providing counseling, [...] range between ( 1.0 and 7.0 ) [place] #: 2.80 K/uL -- Normal range between ( 0.24 and 0.82 ) Eos #: 0.00 K/uL -- Normal range between ( 0.04 and 0.54 ) [place] %: 17.6 % -- Normal range between [...] #: 4 K/uL ANC #: 5 K/uL [place] Percent Man: 19 % -- Normal range [...] was given the opportunity to ask questions. Patient/Charter Boat Captain Name: Patient/Charter Boat Captain Signature: Relationship to Patient: Clinician/Hospital Charter Boat Captain Signature: Date: Electronically signed by [facility], [facility] Conversion Engraver Signature Cerner at 08/17/2022 6:07 PM CDT documented in this encounter Plan of Treatment Not on file documented as of this encounter Visit Diagnoses Not on filedocumented in this encounter Care Teams Coremaker Apprentice Relationship Specialty Start Date End Date Eladio Loams MD 1210 [facility] [address] [place] [address] Medical Oncologist Hematology and Oncology 07/08/22 Breanna Crow PA-C [address] [facility] [address] [place] [address] Physician Media Services Director Oncology 07/08/22 documented as of this encounter
--- OUTSIDE RECORDS SUMMARY | 2024-10-23 10:53 | XMS_ITS | Encounter Summary ---
Author Organization [facility] [employer] In iatives Address [address] [place] [address] Care Team Providers Care Business System Manager Name Role Phone Eladio Lomas MD Unavailable Breanna Crow PA-C Unavailable [phone] Encounter Details Date Type Department Care Team (Late st Contact Info) Description 10/18/2021 Transcribed Document [facility] [place] [facility] [place] [address] ProviderJailyn MD [address] [place], [place] [phone] Social History Tobacco Use Types Packs/Day Years [...] on filedocumented in this encounter Care Teams Business System Manager Relationship Specialty Start Date End Date Eladio Lomas MD 1210 [facility] [address] [place] [address] Medical Oncologist Hematology and Oncology 07/08/22 Breanna Crow PA-C [address] [address] Physician Quarrying Manager Oncology 07/08/22 documented as of this encounter
--- OUTSIDE RECORDS SUMMARY | 2024-10-23 10:53 | XMS_ITS | Encounter Summary ---
Author Organization [employer] Address [address] [place] [address] Care Team Providers Care Automobile Brake Bonder Name Role Phone Eladio Lomas MD Unavailable Breanna Crow PA-C Unavailable [phone] Encounter Details Date Type Department Care Team (Late st Contact Info) Description 10/16/2021 Transcribed Document [facility] [place] [facility] [place] [address] ProviderJailyn MD [address] [place] [address] Social History Tobacco Use Types [...] filedocumented in this encounter Care Teams Automobile Brake Bonder Relationship Specialty Start Date End Date Eladio Lomas MD [address] [place] [address] Medical Oncologist Hematology and Oncology 07/08/22 Breanna Crow PA-C 3470 [facility] [address] [place] [address] Physician Supervisor Intermediates Oncology 07/08/22 documented as of this encounter
--- OUTSIDE RECORDS SUMMARY | 2024-10-23 10:53 | XMS_ITS | Encounter Summary ---
Author Organization [facility] [employer] In iatives Address [address] [place] [address] Care Team Providers Care Chlorine Operator Name Role Phone Eladio Lomas MD Unavailable Breanna Crow PA-C Unavailable [phone] Encounter Details Date Type Department Care Team (Late st Contact Info) Description 10/19/2021 Transcribed Document [facility] [place] [facility] [place] [address] ProviderJailyn MD [address] [place], [place] [id number] Social History Tobacco Use Types Packs/Day Years [...] Health Plan: [employer] PPO Policy Number: [id number] Authorization Number: Insurance Primary Name : [employer] PPO [id number] Authorization Status-Primary : Awaiting callback Reference Number-Primary : [id number] Authorized Service Begin Date-Primary : 10/15/2021 EDT Authorization Comments-Primary : [employer] PPO auth still pending per availity Historical Authorization Comments-Primary : Comment 1: Clinicals faxed via [employer] (Natalie Lauren, Rn-Utilization Review 10/15/2021 09:30) Comment 2: [employer] PPO auth pending per Star note. (JUANITA HUGO, RN-Utilization Review 10/15/2021 09:18) JUANITA HUGO RN-Utilization Review - 10/19/2021 11:01 EDT Electronically signed by Huy [facility] Conversion Lithographic Printing Machinist Cerner at 08/17/2022 6:00 PM CDT documented in this encounter Plan of Treatment Not on file documented as of this encounter Visit Diagnoses Not on filedocumented in this encounter Care Teams Chlorine Operator Relationship Specialty Start Date End Date Eladio Lomas MD [address] [place] [address] Medical Oncologist Hematology and Oncology 07/08/22 Breanna Crow, PA-C [address] [place] [address] [place] [address] Physician Run Boat Operator Oncology 07/08/22 documented as of this encounter
--- OUTSIDE RECORDS SUMMARY | 2024-10-23 10:53 | XMS_ITS | Encounter Summary ---
Author Organization [employer] Address [address] [place] [address] Care Team Providers Care Iron Installer Name Role Phone Eladio Lomas MD Unavailable Breanna Crow PA-C Unavailable [phone] Encounter Details Date Type Department Care Team (Late st Contact Info) Description 10/16/2021 Transcribed Document [facility] [place] Medicine [facility] [place] [address] ProviderJailyn MD [address] [place] [address] Social History Tobacco Use Types [...] on filedocumented in this encounter Care Teams Iron Installer Relationship Specialty Start Date End Date Eladio Lomas MD 1210 [facility] [address] [place] [address] Medical Oncologist Hematology and Oncology 07/08/22 Breanna Crow PA-C [address] [id number] Physician Hooker Inspector Oncology 07/08/22 documented as of this encounter
--- OUTSIDE RECORDS SUMMARY | 2024-10-23 10:53 | XMS_ITS | Encounter Summary ---
Author Organization [facility] In iatives Address [address] [place] [address] Care Team Providers Care Team Assembly Line Machine Operator Name Role Phone Eladio Lomas MD Unavailable Breanna Crow PA-C Unavailable [phone] Encounter Details Date Type Department Care Team (Late st Contact Info) Description 10/16/2021 Transcribed Document [facility] [place] [facility] [place] [address] ProviderJailyn MD [address] [place], [place] [phone] Social History Tobacco Use Types Packs/Day Years [...] Sent to Post Acute Providers : No [facility] [address] [address] Quality Web Info Shared w Pt/Fam : [...] 10/16/2021 11:03 EDT Electronically signed by Huy [facility] Conversion Speedboat Driver Cerner at 08/17/2022 5:59 PM CDT documented in this encounter Plan of Treatment Not on file documented as of this encounter Visit Diagnoses Not on filedocumented in this encounter Care Teams Team Assembly Line Machine Operator Relationship Specialty Start Date End Date Eladio Lomas MD [address] [facility] [address] [facility] [place] [address] Medical Oncologist Hematology and Oncology 07/08/22 Breanna Crow, PA-C [address] [address] Physician Hand Glass Cutter Oncology 07/08/22 documented as of this encounter
--- OUTSIDE RECORDS SUMMARY | 2024-10-23 10:53 | XMS_ITS | Encounter Summary ---
Author Organization [employer] In [employer] Address [address] [place] [address] Care Team Providers Care Analytics Consultant Name Role Phone Eladio Lomas MD Unavailable Breanna Crow PA-C Unavailable [phone] Encounter Details Date Type Department Care Team (Late st Contact Info) Description 10/16/2021 Transcribed Document [facility] [place] Family Medicine [facility] [place] [address] ProviderJailyn MD [address] [place] [address] Social History Tobacco Use Types [...] At risk for sleep apnea / IMO [id number] / Confirmed, Active Problems (2) At risk [...] 11:44) L 92 (CINDI 17 06:00) 99 (CINDI 16 17:56) Electronically signed by Huy, [facility] Conversion Industrial Mechanic Cerner at 08/17/2022 6:04 PM CDT documented in this encounter Plan of Treatment Not on file documented as of this encounter Visit Diagnoses Not on filedocumented in this encounter Care Teams Analytics Consultant Relationship Specialty Start Date End Date Eladio Lomas MD 1210 [facility] [address] [address] Medical Oncologist Hematology and Oncology 07/08/22 Breanna Crow, PA-C 34[address] [facility] [address] [place] [address] Physician Strategic Sourcing Specialist Oncology 07/08/22 documented as of this encounter
--- OUTSIDE RECORDS SUMMARY | 2024-10-23 10:53 | XMS_ITS | Encounter Summary ---
Author Organization [employer] Address [address] [address] Care Team Providers Care Oil Well Cable Tool Operator Name Role Phone Eladio Lomas MD Unavailable Breanna Crow PA-C Unavailable [phone] Encounter Details Date Type Department Care Team (Late st Contact Info) Description 10/16/2021 Transcribed Document [facility] Neurology - [facility] [address] [facility] [address] [place] [address] Diane Dias MD [address] [place], [place] [id number] Social History Tobacco Use Types Packs/Day Years [...] no evidence of a meningeal encephalitis or [place]?? secondary to his varicella and I [...] Shortness of Breath Lovenox: 40 mg, SubCutaneous, [id number] MiraLax: 17 Gram, Oral, Daily, PRN: Constipation [...] mL inj 40 mg 0.4 mL, SubCutaneous, [id number] famotidine 20 mg tab 20 mg 1 [...] At risk for sleep apnea / IMO [id number] / Confirmed, Active Problems (2) At risk [...] lower motor neuron process.. Integumentary: Warm, Dry, [place]. Neurologic: Alert, Oriented, Cranial Nerves II-XII are [...] on filedocumented in this encounter Care Teams Oil Well Cable Tool Operator Relationship Specialty Start Date End Date Eladio Lomas MD 12[address] [facility] [address], [place] [address] Medical Oncologist Hematology and Oncology 07/08/22 Breanna Crow PA-C 3470 [facility] [address] [place] [address] Physician Manager Cardiovascular Oncology 07/08/22 documented as of this encounter
--- OUTSIDE RECORDS SUMMARY | 2024-10-23 10:53 | XMS_ITS | Encounter Summary ---
Author Organization [employer] In iatives Address [address] [place] [address] Care Team Providers Care Music Therapy Teacher Name Role Phone Eladio Lomas MD Unavailable Breanna Crow PA-C Unavailable [phone] Encounter Details Date Type Department Care Team (Late st Contact Info) Description 10/16/2021 Transcribed Document [place] Family Medicine [facility] [place] [address] ProviderJailyn MD [address] [place] [address] Social History Tobacco Use Types [...] on filedocumented in this encounter Care Teams Music Therapy Teacher Relationship Specialty Start Date End Date Eladio Lomas MD [address] [facility] [address] [place] [address] Medical Oncologist Hematology and Oncology 07/08/22 Breanna Crow PA-C [address] [place], [place] [id number] Physician Member Service Specialist Oncology 07/08/22 documented as of this encounter
--- OUTSIDE RECORDS SUMMARY | 2024-10-23 10:53 | XMS_ITS | Encounter Summary ---
Author Organization [facility] In iatives Address [address] [place] [address] Care Team Providers Care Utility Manager Name Role Phone Eladio Lomas MD Unavailable Breanna Crow PA-C Unavailable [phone] Encounter Details Date Type Department Care Team (Late st Contact Info) Description 01/01/2022 Transcribed Document [facility] Family [place] [address] ProviderJailyn MD [address] [place] [address] Social History Tobacco Use Types [...] HU /Sex: 1950 Male Med Rec #: [id number] Physician: GARCIA WORKMAN MD-ORT Financial #: [id number] Pt. Type: O Room/Bed: [facility]/ Admit/Disch: 01/01/22 09:26:00 - Institution: [place] Main OR PACU Case Times Entry 1 In PACU I 01/01/22 11:50:00 Ready for PACU 01/01/22 12:38:00 Discharge Discharge from PACU 01/01/22 12:38:00 I Last Modified By: aLshay Liu RN 01/01/22 12:45:05 [facility] Main OR PACU Case Times Audit 01/01/22 12:45:05 Training Consultant: [email or web address] Modifier: [email or web address] <+> 1 Ready for PACU Discharge <+> 1 Discharge from PACU I Finalized By: Lashay Liu, RN Document Signatures Signed By: Lasahy Liu RN 01/01/22 12:45 documented in this encounter Plan of Treatment Not on file documented as of this encounter Visit Diagnoses Not on filedocumented in this encounter Care Teams Utility Manager Relationship Specialty Start Date End Date Eladio Lomas MD [address] [facility] [address] [address] Medical Oncologist Hematology and Oncology 07/08/22 Breanna Crow, PA-C [address] [facility] [address] [place] [address] Physician Shrink Pit Supervisor Oncology 07/08/22 documented as of this encounter
--- OUTSIDE RECORDS SUMMARY | 2024-10-23 10:53 | XMS_ITS | Encounter Summary ---
Author Organization [facility] [employer] In iatives Address [address] [place] [address] Care Team Providers Care Post Manager Name Role Phone Eladio Lomas MD Unavailable Breanna Crow PA-C Unavailable [phone] Encounter Details Date Type Department Care Team (Late st Contact Info) Description 12/29/2021 Transcribed Document [facility] Family [place] [address] ProviderJailyn MD [address] [place] [address] Social History Tobacco Use Types [...] on filedocumented in this encounter Care Teams Post Manager Relationship Specialty Start Date End Date Eladio Lomas MD 12[address] [facility] [address] [place] [address] Medical Oncologist Hematology and Oncology 07/08/22 Breanna Crow PA-C 34[address] [facility] [address] [place], [place] [address] Physician Stock Patcher Oncology 07/08/22 documented as of this encounter
--- OUTSIDE RECORDS SUMMARY | 2024-10-23 10:53 | XMS_ITS | Encounter Summary ---
Author Organization [employer] In iatives Address [address] [place] [address] Care Team Providers Care Slab Grinder Name Role Phone Eladio Lomas MD Unavailable Breanna Crow PA-C Unavailable [phone] Encounter Details Date Type Department Care Team (Late st Contact Info) Description 10/15/2021 Transcribed Document [facility] Family Medicine [facility] [place] [address] ProviderJailyn MD [address] [place] [address] Social History Tobacco Use Types [...] experiencing weakness in his R leg CRYSTAL ROBERTS DANIELR/L - 10/17/2021 12:09 EDT Upper Extremity [...] CRYSTAL ROBERTS DANIELR/Mikal - 10/17/2021 12:09 EDT Rn Cardiac Rehab Goals, OT Other LTG Grid Goal #1 Goal #2 Goal : Client will complete transfers for ADLs with supervision Client will complete LB ADLs with set-up A Date to Meet : 10/31/2021 EDT 10/31/2021 EDT Goal Status : Initial goal Initial goal CRYSTAL ROBERTS OTR/Mikal - 10/17/2021 12:09 EDT CRYSTAL ROBERTS OTR/Mikal - 10/17/2021 12:09 EDT Treatment Note Additional Objective Information : Client completed transfer from supine to sit with supervision, needed some cues to correct posture/position. While on edge of bed, able to put on sock, AFO and shoe, with verbal cues and ofrz-is-tyyv instructions on how to perform, due to [...] the text rendition version of the form. [place] OT Charges OT Selfcare/Hm Mgmt Ea 15 Min : 2 OT Eval Low Complexity : 1 CRYSTAL ROBERTS PAYAL/Mikal - 10/17/2021 12:09 EDT documented in this encounter Plan of Treatment Not on file documented as of this encounter Visit Diagnoses Not on filedocumented in this encounter Care Teams Slab Grinder Relationship Specialty Start Date End Date Eladio Lomas MD 12[address] [facility] [address] [place] [address] Medical Oncologist Hematology and Oncology 07/08/22 Breanna Crow, PACecilia [address] [place] [address] Physician Net Development Manager Oncology 07/08/22 documented as of this encounter
--- OUTSIDE RECORDS SUMMARY | 2024-10-23 10:53 | XMS_ITS | Encounter Summary ---
Author Organization [facility] [employer] In iatives Address [address] [place] [address] Care Team Providers Care Stream Control Officer Name Role Phone Eladio Lomas MD Unavailable Breanna Crow PA-C Unavailable [phone] Encounter Details Date Type Department Care Team (Late st Contact Info) Description 01/01/2022 Transcribed Document [facility] Family Medicine [facility] [place] [address] ProviderJailyn MD [address] [place] [address] Social History Tobacco Use Types [...] Lira MD - 01/01/2022 12:58 PM CDT [address] [address] SARAH HU :1950 Visit Time:01/01/2022 [...] for follow-up date and appointment time Activity: [place] dressing. Do not remove. May shower with [...] When 01/14/2022 11:00 AM EDT Where: [address] [place] [address] [address] [place] [address]- Medications What How Much When Instructions Next Dose acetaminophen-oxyCODONE (Percocet 7.5/ 325 oral tablet) 1 Tablet(s) Oral Three Times A Day as needed for for pain Pickup at [facility] acetaminophen (Tylenol 325 mg oral tablet) 2 Tablet(s) Oral Every 4 Hours as needed for Pain (Mild 1-3) ergocalciferol (ergocalciferol 50 mcg (2000 intl units) oral capsule) 1 Capsule(s) Oral Every Day Duration: 14 Day(s) multivitamin (Multiple Vitamins oral tablet) 1 Tablet(s) Oral Every Day valACYclovir (Valtrex 1 g oral tablet) 1 Tablet(s) Oral Every Day Pharmacy Information [facility]: [address] [place], [place] [id number] [phone] Take your medications faithfully. Do NOT skip [...] these instructions at home: Medicines ??? Take egbh-otx-iqzvgqb and prescription medicines as told by your [...] keep your urine pale yellow. ? Take lsmr-yui-gevrlod or prescription medicines. ? Eat foods that [...] and water are not available, use hand drafter electronic. ? Change your dressing as told by [...] safe to drive. General instructions ??? Take twjt-xso-lwlxlqq and prescription medicines only as told by [...] provider. Document Revised: 08/06/2020 Document Reviewed: 08/06/2020 [employer] Patient Education ?? 2021 [employer] Laminectomy, Care After This sheet gives [...] these instructions at home: Medicines ??? Take aizo-uiz-momiegy and prescription medicines only as told by [...] keep your urine pale yellow. ? Take cmwc-bbd-zuuilhg or prescription medicines. ? Eat foods that [...] and water are not available, use hand drafter electronic. ? Change your dressing as told by [...] provider. Document Revised: 11/12/2019 Document Reviewed: 11/12/2019 [employer] Patient Education ?? 2021 [employer]. Emergency Awareness and Preventative Care STROKE is [...] Assistance with quitting is available by contacting 0-223-EKYE-NOW. This is a free resource providing counseling, [...] was given the opportunity to ask questions. Patient/Comprehensive Ophthalmologist Name: Patient/Comprehensive Ophthalmologist Signature: Relationship to Patient: Clinician/Hospital Comprehensive Ophthalmologist Signature: Date: documented in this encounter Plan of Treatment Not on file documented as of this encounter Visit Diagnoses Not on filedocumented in this encounter Care Teams Stream Control Officer Relationship Specialty Start Date End Date Eladio Lomas MD 12[address] [facility] [address] [place] [address] Medical Oncologist Hematology and Oncology 07/08/22 Breanna Crow PA-C [address] [facility] [address] [place] [address] Physician Process Steward Oncology 07/08/22 documented as of this encounter
--- OUTSIDE RECORDS SUMMARY | 2024-10-23 10:53 | XMS_ITS | Encounter Summary ---
Author Organization [facility] [employer] In [employer]atives Address [address] [place] [address] Care Team Providers Care Luncheonette Manager Name Role Phone Eladio Lomas MD Unavailable Breanna Crow PA-C Unavailable [phone] Encounter Details Date Type Department Care Team (Late st Contact Info) Description 10/29/2021 Transcribed Document [facility] Family [facility] [address] ProviderJailyn MD [address] [place], [place] [address] Social History Tobacco Use Types Packs/Day Years [...] Health Plan: [employer] CHOICE PPO Policy Number: [id number] Authorization Number: Insurance Primary Name : [employer] CHOICE PPO [id number] Authorization Status-Primary : Denied Reference Number-Primary : [id number] Authorized Service Begin Date-Primary : 10/15/2021 EDT [...] from [employer] 10/19/21 Placed in tray on [employer] desk (KEI JEAN-BAPTISTE, Apprentice Painter Neckties 10/19/2021 13:08) Comment 3: [employer] CHOICE PPO auth still pending per availity (JUANITA HUGO, SHARYN-Utilization Review 10/19/2021 11:01) Comment 4: Clinicals faxed via [employer] (Natalie Lauren, Sharyn-Utilization Review 10/15/2021 09:30) Comment 5: [employer] CHOICE PPO auth pending per Star note. (JUANITA HUGO, RN-Utilization Review 10/15/2021 09:18) DIETER MAR RN - 10/29/2021 8:47 EDT documented in this encounter Plan of Treatment Not on file documented as of this encounter Visit Diagnoses Not on filedocumented in this encounter Care Teams Luncheonette Manager Relationship Specialty Start Date End Date Eladio Lomas MD 1210 [facility] [address] [place] [address] Medical Oncologist Hematology and Oncology 07/08/22 Breanna Crow PA-C [address] [facility] [address] [place] [address] Physician Sustainability Analyst Oncology 07/08/22 documented as of this encounter
--- OUTSIDE RECORDS SUMMARY | 2024-10-23 10:53 | XMS_ITS | Encounter Summary ---
Author Organization [employer] In iatives Address [address] [facility] [place] [address] Care Team Providers Care Airport Security Screener Name Role Phone Eladio Lomas MD Unavailable Breanna Crow PA-C Unavailable [phone] Encounter Details Date Type Department Care Team (Late st Contact Info) Description 12/29/2021 Transcribed Document [facility] Family Medicine [facility] [place] [address] ProviderJailyn MD [address] [place] [address] Social History Tobacco Use Types Packs/Day [...] back pain Primary Care Provider BHAVANA ARTEAGA (REF)[facility] History of Present Illness This patient is [...] MVP - pt has not seen a supervisor byproducts 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 Pt denies [...] # 7.60 K/uL (High) 12/29/2021 10:31 EDT [place] % 14.8 % (High) 12/29/2021 10:31 EDT [place] # 2.11 K/uL (High) 12/29/2021 10:31 EDT [...] on filedocumented in this encounter Care Teams Airport Security Screener Relationship Specialty Start Date End Date Eladio Lomas MD 1210 [facility] [address] [place] [address] Medical Oncologist Hematology and Oncology 07/08/22 Breanna Crow PA-C [facility]0 [place] [address] Physician Civil Structural Engineer Oncology 07/08/22 documented as of this encounter
--- OUTSIDE RECORDS SUMMARY | 2024-10-23 10:53 | XMS_ITS | Encounter Summary ---
Author Organization [facility] In iatives Address [address] [place] [address] Care Team Providers Care Senior Director Creative Services Name Role Phone Eladio Lomas MD Unavailable Breanna Crow PA-C Unavailable [phone] Encounter Details Date Type Department Care Team (Late st Contact Info) Description 10/18/2021 Transcribed Document [facility] Family Medicine [facility] [place] [address] ProviderJailyn MD [address] [place], [place] [address] Social History Tobacco Use Types Packs/Day Years [...] : Yes Discharge To Care Management : Home/Residential/Fpc or Self Care - ROMERO MCMANUS RN [...] 10/18/2021 11:50 EDT Electronically signed by [facility] Conversion Anesthesiologist Assistant Certified Cerner at 08/17/2022 6:15 PM CDT documented in this encounter Plan of Treatment Not on file documented as of this encounter Visit Diagnoses Not on filedocumented in this encounter Care Teams Senior Director Creative Services Relationship Specialty Start Date End Date Eladio Lomas MD [address] [address] Medical Oncologist Hematology and Oncology 07/08/22 Breanna Crow PA-C [address] [place] [address] [address] [place] [address] Physician Customer Engineer Oncology 07/08/22 documented as of this encounter
--- OUTSIDE RECORDS SUMMARY | 2024-10-23 10:53 | XMS_ITS | Encounter Summary ---
Author Organization [employer] In iatives Address [address] [place] [address] Care Team Providers Care Assayer Name Role Phone Eladio Lomas MD Unavailable Breanna Crow PA-C Unavailable [phone] Encounter Details Date Type Department Care Team (Late st Contact Info) Description 01/01/2022 Transcribed Document [facility] Family Medicine [facility] [place] [facility] [place] [address] ProviderJailyn MD [address] [place] [address] Social History Tobacco Use Types [...] these instructions at home: Medicines ??? Take lzwy-etw-veucehu and prescription medicines as told by your [...] keep your urine pale yellow. ? Take qcsv-wpd-qjhyvfv or prescription medicines. ? Eat foods that [...] and water are not available, use hand car pincher. ? Change your dressing as told by [...] safe to drive. General instructions ??? Take mnbn-euz-bpgjfaq and prescription medicines only as told by [...] these instructions at home: Medicines ??? Take otcf-wcd-bnbgiqu and prescription medicines only as told by [...] keep your urine pale yellow. ? Take uabg-hhf-egxdsrv or prescription medicines. ? Eat foods that [...] and water are not available, use hand car pincher. ? Change your dressing as told by [...] provider. Document Revised: 11/12/2019 Document Reviewed: 11/12/2019 [employer] Patient Education ? 2021 [employer] documented in this encounter Plan of Treatment Not on file documented as of this encounter Visit Diagnoses Not on filedocumented in this encounter Care Teams Assayer Relationship Specialty Start Date End Date Eladio Lomas MD 1210 [facility] [address] [place] [address] Medical Oncologist Hematology and Oncology 07/08/22 Breanna Crow PA-C [address] [facility] [address] [place] [address] Physician Skiff Operator Oncology 07/08/22 documented as of this encounter
--- OUTSIDE RECORDS SUMMARY | 2024-10-23 10:53 | XMS_ITS | Encounter Summary ---
Author Organization [facility] [employer] In [employer] Address [address] [place] [address] Care Team Providers Care Thermodynamics Professor Name Role Phone Eladio Lomas MD Unavailable Breanna Crow PA-C Unavailable [phone] Encounter Details Date Type Department Care Team (Late st Contact Info) Description 10/19/2021 Transcribed Document [facility] Family Medicine [facility] [place] [address] ProviderJailyn MD [address] [place], [place] [id number] Social History Tobacco Use Types Packs/Day Years [...] On: 10/19/2021 13:08 EDT by KEI JEAN-BAPTISTE Sewer Head Primary Insurance Authorization Authorization and Policy Numbers : Insurance 1 Health Plan: [employer] CHOICE PPO Policy Number: [id number] Authorization Number: Insurance Primary Name : [employer] CHOICE PPO [id number] Authorization Status-Primary : Denied Reference Number-Primary : [id number] Authorized Service Begin Date-Primary : 10/15/2021 EDT [...] HUGO, RN-Utilization Review 10/15/2021 09:18) KEI JEAN-BAPTISTE, Sewer Head - 10/19/2021 13:08 EDT Electronically signed by [facility], [facility] Conversion Director Of Accounting Cerner at 08/17/2022 6:16 PM CDT documented in this encounter Plan of Treatment Not on file documented as of this encounter Visit Diagnoses Not on filedocumented in this encounter Care Teams Thermodynamics Professor Relationship Specialty Start Date End Date Eladio Lomas MD 1210 [facility] [address] [address] Medical Oncologist Hematology and Oncology 07/08/22 Breanna Crow PA-C [address] [facility] [address] [place] [address] Physician Oil Well Services Field Supervisor Oncology 07/08/22 documented as of this encounter
--- OUTSIDE RECORDS SUMMARY | 2024-10-23 10:53 | XMS_ITS | Encounter Summary ---
Author Organization [facility] In iatives Address [address] [place] [address] Care Team Providers Care Credit Products Officer Name Role Phone Eladio Lomas MD Unavailable Breanna Crow PA-C Unavailable [phone] Encounter Details Date Type Department Care Team (Late st Contact Info) Description 01/01/2022 Transcribed Document [facility] [place] [address] ProviderJailyn MD [address] [place], [place] [...] HU /Sex: 1950 Male Med Rec #: [id number] Physician: GARICA WORKMAN MD-ORT Financial #: [id number] Pt. Type: O Room/Bed: [facility]/ Admit/Disch: 01/01/22 09:26:00 - Institution: [facility] [place] PostOp Case Times Entry 1 In PACU II 01/01/22 12:41:00 Ready for PACU II 01/01/22 13:10:00 Discharge Discharge from PACU 01/01/22 13:20:00 II Last Modified By: DAYANA BALLARD, RN 01/01/22 13:28:32 [facility] Main OR PostOp Case Times Audit 01/01/22 13:28:32 Snipper: LIZETH Modifier: ELIOJM <+> 1 Ready for PACU II Discharge <+> 1 Discharge from PACU II Finalized By: DAYANA BALLARD, RN Document Signatures Signed By: DAYANA BALLARD, SHARYN 01/01/22 13:28 documented in this encounter Plan of Treatment Not on file documented as of this encounter Visit Diagnoses Not on filedocumented in this encounter Care Teams Credit Products Officer Relationship Specialty Start Date End Date Eladio Lomas MD [address] [address] Medical Oncologist Hematology and Oncology 07/08/22 Breanna Crow, PA-C 34[address] [facility] [address] [place] [address] Physician Flying Teacher Oncology 07/08/22 documented as of this encounter
--- OUTSIDE RECORDS SUMMARY | 2024-10-23 10:53 | XMS_ITS | Encounter Summary ---
Author Organization [employer] In [employer]atives Address [address] [place] [address] Care Team Providers Care Guide Delegate Name Role Phone Eladio Lomas MD Unavailable Breanna Crow PA-C Unavailable [phone] Encounter Details Date Type Department Care Team (Late st Contact Info) Description 10/18/2021 Transcribed Document [facility] Family Medicine [facility] [place] [address] ProviderJailyn MD [address] [place] [address] Social History Tobacco Use Types [...] 14:35 EDT by Celina Marley Non Emp technical account representative Documentation Discharge Date/Time : 10/18/2021 12:50 EDT [...] - 10/18/2021 14:35 EDT Electronically signed by [facility], [facility] Conversion Truss Builder Cerner at 08/17/2022 6:13 PM CDT documented in this encounter Plan of Treatment Not on file documented as of this encounter Visit Diagnoses Not on filedocumented in this encounter Care Teams Guide Delegate Relationship Specialty Start Date End Date Eladio Lomas MD 1210 [facility] [address], [place] [address] Medical Oncologist Hematology and Oncology 07/08/22 Breanna Crow PA-C [facility] [address] [address] Physician Sleep Technician Oncology 07/08/22 documented as of this encounter
--- OUTSIDE RECORDS SUMMARY | 2024-10-23 10:53 | XMS_ITS | Encounter Summary ---
Author Organization [employer] In iatives Address [address] [place] [address] Care Team Providers Care Reinforcing Rod Layer Name Role Phone Eladio Lomas MD Unavailable Breanna Crow PA-C Unavailable [phone] Encounter Details Date Type Department Care Team (Late st Contact Info) Description 10/14/2021 Transcribed Document [facility] Family Medicine [facility] [place] [address] ProviderJailyn MD [address] [place], [place] [id number] Social History Tobacco Use Types Packs/Day Years [...] On: 10/14/2021 18:31 EDT by UGO FAN, AIRCONDITIONING PLANT OPERATOR Triage Across the Room Chief Complaint : RLE numbness x1 week. Triage Date/Time : 10/14/2021 18:31 EDT UGO FAN RN - 10/14/2021 18:31 EDT DCP GENERIC CODE Tracking Acuity : 3 - Urgent Tracking Group : [facility] UGO FAN RN - 10/14/2021 18:31 EDT Mode of Arrival : Wheelchair Transported to ED by : Private vehicle To Room Via : Wheelchair Accompanied By : Spouse ED Vital Signs : Document Height & Weight : Document ED Allergies : Document ED Reason for Visit : Document Tetanus Immunization : Greater than 5 years Pourer Metal Needed : No UGO FAN RN - [...] EDT) Problems(Active) Mitral valve prolapse (SNOMED CT :[id number] ) Name of Problem: Mitral valve prolapse ; Recorder: Miranda Flor RN; Confirmation: Confirmed ; Classification: Patient Stated ; Code: [id number] ; Contributor System: [email or web address] ; Last Updated: 11/28/2017 15:14 EDT ; Life Cycle Date: 11/28/2017 ; Life Cycle Status: Active ; Vocabulary: SNOMED CT Diagnoses(Active) Paresthesia Date: 10/14/2021 ; Diagnosis Type: Reason For Visit ; Confirmation: Complaint of ; Clinical Dx: Paresthesia ; Classification: Medical ; Clinical Service: Emergency medicine ; Code: PNED ; Probability: 0 ; Diagnosis Code: [id number] ED Height and Weight Height Source : Stated Height Entry Format : [place] Height, Feet : 5 ft(Converted to: 152 cm, 60 Inch) Height, Inches : 6 Inch(Converted to: 0 ft 6 Inch, 15.24 cm) Clinical Height : 167.64 cm Weight Source, ED : Critical estimated dosing weight Weight Entry Format : [place] Weight, Pounds : 180 lb Clinical Dosing Weight : 81.82 kg Body Surface Area (BSA) : 1.91 m2 Body Mass Index : 29.1 kg/m2 (HI) [place] Body Weight (IBW) : 62.88 kg UGO FAN RN - 10/14/2021 18:31 EDT Patient/Family Pourer Metal Communication Primary Language : Grenadian UGO FAN RN - 10/14/2021 18:31 EDT documented in this encounter Plan of Treatment Not on file documented as of this encounter Visit Diagnoses Not on filedocumented in this encounter Care Teams Reinforcing Rod Layer Relationship Specialty Start Date End Date Eladio Lomas MD [facility] [place] [id number] Medical Oncologist Hematology and Oncology 07/08/22 Breanna Crow, PARebelC [address] [address] Physician Waxer Operator Oncology 07/08/22 documented as of this encounter
--- OUTSIDE RECORDS SUMMARY | 2024-10-23 10:53 | XMS_ITS | Encounter Summary ---
Author Organization [facility] [employer] In iatives Address [address] [place] [address] Care Team Providers Care Ethylene Plant Helper Name Role Phone Eladio Lomas MD Unavailable Breanna Crow PA-C Unavailable [phone] Encounter Details Date Type Department Care Team (Late st Contact Info) Description 12/29/[address] [facility] Family Medicine [facility] [place] [address] ProviderJailyn MD [address] [place], [place] [id number] Social History Tobacco Use Types Packs/Day Years [...] Source : Stated Height Entry Format : [place] Height, Feet : 5 ft(Converted to: 152 cm, 60 Inch) Height, Inches : 6 Inch(Converted to: 0 ft 6 Inch, 15.24 cm) Clinical Height : 167.64 cm Weight Source : Standing scale Weight Entry Format : [place] Clinical Dosing Weight : 72.73 kg Weight, Pounds : 160 lb Body Surface Area (BSA) : 1.82 m2 Body Mass Index : 25.9 kg/m2 (HI) [place] Body Weight : 63 kg JOSELINE MIRAMONTES [...] Diarrhea (3 episode per day) : NO JOSLEINE MIRAMONTES RN - 12/29/2021 10:51 EDT Patient [...] JOSELINE MIRAMONTES RN - 12/29/2021 10:51 EDT [place] Suicide Severity Rating Scale (C-SSRS) CSSRS Past [...] #2 Relationship : - Primary Language : Swiss Communication Barrier : None Section Housekeeper Needed : No JOSELINE MIRAMONTES RN - [...] on filedocumented in this encounter Care Teams Ethylene Plant Helper Relationship Specialty Start Date End Date Eladio Lomas MD [address] [facility] [place], [place] [address] Medical Oncologist Hematology and Oncology 07/08/22 Breanna Crow PACecilia [address] [facility] [address] [place] [address] Physician Purse Framer Oncology 07/08/22 documented as of this encounter
--- OUTSIDE RECORDS SUMMARY | 2024-10-23 10:53 | XMS_ITS | Encounter Summary ---
Author Organization [facility] [employer] In iatives Address [address] [place] [address] Care Team Providers Care Slate Splitting Supervisor Name Role Phone Eladio Lomas MD Unavailable Breanna Crow PA-C Unavailable [phone] Encounter Details Date Type Department Care Team (Late st Contact Info) Description 10/20/2021 Transcribed Document [facility] [place] [facility] [place] [address] ProviderJailyn MD [address] [place], [place] [id number] Social History Tobacco Use Types Packs/Day Years [...] Health Plan: [employer] CHO[employer] PPO Policy Number: [id number] Authorization Number: Insurance Primary Name : [employer] CHOICE PPO [id number] Authorization Status-Primary : Denied Reference Number-Primary : [id number] Authorized Service Begin Date-Primary : 10/15/2021 EDT Authorization Comments-Primary : Emailed denial to [facility] Historical Authorization Comments-Primary : Comment 1: Rec faxed Denial from [employer] 10/19/21 Placed in tray on JJs desk (KEI JEAN-BAPTISTE, Virtualization Consultant 10/19/2021 13:08) Comment 2: [employer] CHO[employer] PPO auth still pending per availity (JUANITA HUGO, RN-Utilization Review 10/19/2021 11:01) Comment 3: Clinicals faxed via [employer] (Natalie Lauren, Rn-Utilization Review 10/15/2021 09:30) Comment 4: [employer] CHOICE PPO auth pending per Star note. (JUANITA HUGO, RN-Utilization Review 10/15/2021 09:18) DIETER MAR RN - 10/20/2021 13:43 EDT Electronically signed by Huy [facility] Conversion Grinder Set Up Operator Jig Cerner at 08/17/2022 6:13 PM CDT documented in this encounter Plan of Treatment Not on file documented as of this encounter Visit Diagnoses Not on filedocumented in this encounter Care Teams Slate Splitting Supervisor Relationship Specialty Start Date End Date Eladio Lomas MD 12[address] [facility] [address] [place] [address] Medical Oncologist Hematology and Oncology 07/08/22 Breanna Crow, PA-C [address] [facility] [address] [place] [address] Physician Pump Servicer Oncology 07/08/22 documented as of this encounter
--- OUTSIDE RECORDS SUMMARY | 2024-10-23 10:53 | XMS_ITS | Encounter Summary ---
Author Organization [facility] [employer] In iatives Address [address] [place] [address] Care Team Providers Care Silicator Name Role Phone Eladio Lomas MD Unavailable Breanna Crow PA-C Unavailable [phone] Encounter Details Date Type Department Care Team (Late st Contact Info) Description 01/01/2022 Transcribed Document [facility] Family Medicine [facility] [place] [address] ProviderJailyn MD [address] [place] [address] Social History Tobacco Use Types [...] Lira MD - 01/01/2022 1:04 PM CDT [place] [address] [place] [address] SARAH HU :1950 Visit Time:01/01/2022 [...] for follow-up date and appointment time Activity: Jonancy dressing. Do not remove. May shower with [...] MD-ORT When 01/14/2022 11:00 AM EDT Where: [address] [place] [address] [address] [place] [address]- Medications What How Much When Instructions Next Dose acetaminophen-oxyCODONE (Percocet 7.5/ 325 oral tablet) 1 Tablet(s) Oral Three Times A Day as needed for for pain Pickup at [facility] acetaminophen (Tylenol 325 mg oral tablet) 2 Tablet(s) Oral Every 4 Hours as needed for Pain (Mild 1-3) ergocalciferol (ergocalciferol 50 mcg (2000 intl units) oral capsule) 1 Capsule(s) Oral Every Day Duration: 14 Day(s) multivitamin (Multiple Vitamins oral tablet) 1 Tablet(s) Oral Every Day valACYclovir (Valtrex 1 g oral tablet) 1 Tablet(s) Oral Every Day Pharmacy Information [facility]: [address] [place], [place] [phone] Take your medications faithfully. Do NOT skip [...] these instructions at home: Medicines ??? Take oabf-mls-swjzbkl and prescription medicines as told by your [...] keep your urine pale yellow. ? Take halc-xmr-whqfirs or prescription medicines. ? Eat foods that [...] and water are not available, use hand cutter operator tile. ? Change your dressing as told by [...] safe to drive. General instructions ??? Take ycwr-jkl-cvblutz and prescription medicines only as told by [...] provider. Document Revised: 08/06/2020 Document Reviewed: 08/06/2020 [employer] Patient Education ?? 2021 [employer] Inc. Laminectomy, Care After This sheet gives [...] these instructions at home: Medicines ??? Take jrvv-cdf-qgswpqh and prescription medicines only as told by [...] keep your urine pale yellow. ? Take kvzq-oho-ffadvnv or prescription medicines. ? Eat foods that [...] and water are not available, use hand cutter operator tile. ? Change your dressing as told by [...] provider. Document Revised: 11/12/2019 Document Reviewed: 11/12/2019 [employer] ([employer]) Patient Education ?? 2021 [employer] Emergency Awareness and Preventative Care STROKE is [...] Assistance with quitting is available by contacting 8-801-NOSD-NOW. This is a free resource providing counseling, [...] was given the opportunity to ask questions. Patient/Spray Painter Name: Patient/Spray Painter Signature: Relationship to Patient: Clinician/Hospital Spray Painter Signature: Date: documented in this encounter Plan of Treatment Not on file documented as of this encounter Visit Diagnoses Not on filedocumented in this encounter Care Teams Silicator Relationship Specialty Start Date End Date Eladio Lomas MD [address] [facility] [address] [place] [address] Medical Oncologist Hematology and Oncology 07/08/22 Breanna Crow PA-C [address] [facility] [address] [place] [address] Physician Ems Helicopter Pilot Oncology 07/08/22 documented as of this encounter
--- OUTSIDE RECORDS SUMMARY | 2024-10-23 10:53 | XMS_ITS | Encounter Summary ---
Author Organization [facility] [employer] Address [address] [place] [address] Care Team Providers Care Calibration Laboratory Technician Name Role Phone Eladio Lomas MD Unavailable Breanna Crow PA-C Unavailable [phone] Encounter Details Date Type Department Care Team (Late st Contact Info) Description 10/18/[address] [facility] Family Medicine [facility] [place] [address] ProviderJailyn MD [address] [place] [address] Social History Tobacco Use Types [...] Lira MD - 10/18/2021 2:00 AM CDT Stock Driver Details Entered On: 10/18/2021 2:19 EDT Performed [...] 10/18/2021 2:19 EDT Electronically signed by Huy [facility] Conversion Armed Custom Protection Officer Cerner at 08/17/2022 6:13 PM CDT documented in this encounter Plan of Treatment Not on file documented as of this encounter Visit Diagnoses Not on filedocumented in this encounter Care Teams Calibration Laboratory Technician Relationship Specialty Start Date End Date Eladio Lomas MD 1210 [facility] [address] [address] Medical Oncologist Hematology and Oncology 07/08/22 Breanna Crow, PACecilia [address] [address] Physician Oracle Technical Developer Oncology 07/08/22 documented as of this encounter
--- OUTSIDE RECORDS SUMMARY | 2024-10-23 10:53 | XMS_ITS | Encounter Summary ---
Author Organization [facility] In [employer]atives Address [address] [place] [address] Care Team Providers Care Pack Room Operator Name Role Phone Eladio Lomas MD Unavailable Breanna Crow PA-C Unavailable [phone] Encounter Details Date Type Department Care Team (Late st Contact Info) Description 01/01/2022 Transcribed Document [facility] [place] [address] ProviderJailyn MD [address] [place] [address] Social History Tobacco Use [...] HU /Sex: 1950 Male Med Rec #: [id number] Physician: GARCIA WORKMAN MD-ORT Financial #: [id number] Pt. Type: O Room/Bed: [facility]/ Admit/Disch: 01/01/22 09:26:00 - Institution: [facility] PreOp Case Times Entry 1 In Preop 01/01/22 07:55:00 Ready for Holding n/a Room Patient Ready for 01/01/22 10:10:00 Surgery Patient Out of Preop 01/01/22 10:37:00 Patient Out of n/a Holding Room Last Modified By: Ansley Lane RN 01/01/22 10:47:06 [facility] PreOp Case Times Audit 01/01/22 10:47:06 Veterinary Anatomist: [id number] Modifier: [id number] <+> 1 Patient Out of Preop Finalized By: Ansley Lane, RN Document Signatures Signed By: Ansley Lane RN 01/01/22 10:47 documented in this encounter Plan of Treatment Not on file documented as of this encounter Visit Diagnoses Not on filedocumented in this encounter Care Teams Pack Room Operator Relationship Specialty Start Date End Date Eladio Lomas MD [address] [facility] [address] [place] [address] Medical Oncologist Hematology and Oncology 07/08/22 Breanna Crow, PA-C [address] [facility] [address] [place] [address] Physician Physical Therapy Aides Teacher Oncology 07/08/22 documented as of this encounter
--- OUTSIDE RECORDS SUMMARY | 2024-10-23 10:53 | XMS_ITS | Encounter Summary ---
Author Organization [employer] Address [address] [place] [address] Care Team Providers Care Music Cataloguer Name Role Phone Eladio Lomas MD Unavailable Breanna Crow PA-C Unavailable [phone] Encounter Details Date Type Department Care Team (Late st Contact Info) Description 10/16/2021 Transcribed Document [facility] [place] [facility] [place] [address] ProviderJailyn MD [address] [place] [address] Social History Tobacco Use Types [...] lower motor neuron process.. Integumentary: Warm, Dry, Buhler. Neurologic: Alert, Oriented, Cranial Nerves II-XII are [...] the setting of recent varicella. Disposition: Pending hospice care consultant recommendations and plan. May need rehab [...] Lymph # 3.37 K/uL 10/16/2021 04:00 [address] [place] % 19.5 % (High) 10/16/2021 04:[address] [place] # 2.25 K/uL (High) 10/16/2021 04:00 EDT [...] ng/mL 10/16/2021 04:00 EDT Electronically signed by [facility] Conversion Golf Course Ranger Cerner at 08/17/2022 6:11 PM CDT documented in this encounter Plan of Treatment Not on file documented as of this encounter Visit Diagnoses Not on filedocumented in this encounter Care Teams Music Cataloguer Relationship Specialty Start Date End Date Eladio Lomas MD 1210 [facility] [address] [place] [address] Medical Oncologist Hematology and Oncology 07/08/22 Breanna Crow PA-C [address] [facility] [address] [place] [address] Physician Log Check Scaler Oncology 07/08/22 documented as of this encounter
--- OUTSIDE RECORDS SUMMARY | 2024-10-23 10:53 | XMS_ITS | Encounter Summary ---
Author Organization [facility] [employer] Address [address] [facility] [address] Care Team Providers Care Hot Pond Operator Name Role Phone Eladio Lomas MD Unavailable Breanna Crow PA-C Unavailable [phone] Encounter Details Date Type Department Care Team (Late st Contact Info) Description 01/01/2022 Transcribed Document [facility] Family Medicine Counts include 234 beds at the [facility] [place] [address] ProviderJailyn MD [address] [place] [address] Social History Tobacco Use Types [...] Lira MD - 01/01/2022 12:58 PM CDT [address] [address] SARAH HU :1950 Visit Time:01/01/2022 [...] for follow-up date and appointment time Activity: Boyce dressing. Do not remove. May shower with [...] MD-ORT When 01/14/2022 11:00 AM EDT Where: [address] [place] [address] [address] [place] [address]- Medications What How Much When Instructions Next Dose acetaminophen-oxyCODONE (Percocet 7.5/ 325 oral tablet) 1 Tablet(s) Oral Three Times A Day as needed for for pain Pickup at [facility] acetaminophen (Tylenol 325 mg oral tablet) 2 Tablet(s) Oral Every 4 Hours as needed for Pain (Mild 1-3) ergocalciferol (ergocalciferol 50 mcg (2000 intl units) oral capsule) 1 Capsule(s) Oral Every Day Duration: 14 Day(s) multivitamin (Multiple Vitamins oral tablet) 1 Tablet(s) Oral Every Day valACYclovir (Valtrex 1 g oral tablet) 1 Tablet(s) Oral Every Day Pharmacy Information [facility]: [address] [place], [place] [phone] [phone] Take your medications faithfully. Do NOT skip [...] these instructions at home: Medicines ??? Take slwm-tfu-yoctcsq and prescription medicines as told by your [...] keep your urine pale yellow. ? Take pknz-bwd-ifsotft or prescription medicines. ? Eat foods that [...] and water are not available, use hand trimmer operator three knife. ? Change your dressing as told by [...] safe to drive. General instructions ??? Take hqdj-fgn-wjhmenc and prescription medicines only as told by [...] provider. Document Revised: 08/06/2020 Document Reviewed: 08/06/2020 [employer] Patient Education ?? 2021 [employer] Laminectomy, Care After This sheet gives [...] these instructions at home: Medicines ??? Take ozvu-xsn-iruqckr and prescription medicines only as told by [...] keep your urine pale yellow. ? Take qmhl-vnj-xpinymb or prescription medicines. ? Eat foods that [...] and water are not available, use hand trimmer operator three knife. ? Change your dressing as told by [...] provider. Document Revised: 11/12/2019 Document Reviewed: 11/12/2019 ElseChooz[employer] Patient Education ?? 2021 [employer]. Emergency Awareness and Preventative Care STROKE is [...] Assistance with quitting is available by contacting 4-633-YCBU-NOW. This is a free resource providing counseling, [...] was given the opportunity to ask questions. Patient/Collar Baster Jumpbasting Name: Patient/Collar Baster Jumpbasting Signature: Relationship to Patient: Clinician/Hospital Collar Baster Jumpbasting Signature: Date: Electronically signed by Rock Son Conversion Outside Industrial Sales Representative Nyasia at 08/17/2022 6:14 PM CDT documented in this encounter Plan of Treatment Not on file documented as of this encounter Visit Diagnoses Not on filedocumented in this encounter Care Teams Hot Pond Operator Relationship Specialty Start Date End Date Eladio Lomas MD 12[address] [facility] [address] [place] [address] Medical Oncologist Hematology and Oncology 07/08/22 Breanna Crow PA-C [address] [facility] [address] [place] [address] Physician Metallurgical Technician Oncology 07/08/22 documented as of this encounter
--- OUTSIDE RECORDS SUMMARY | 2024-10-23 10:53 | XMS_ITS | Encounter Summary ---
Author Organization [employer] Address [address] [place] [address] Care Team Providers Care Load Out Worker Name Role Phone Eladio Lomas MD Unavailable Breanna Crow PA-C Unavailable [phone] Encounter Details Date Type Department Care Team (Late st Contact Info) Description 10/16/2021 Transcribed Document [facility] [place] [address] ProviderJailyn MD [address] [place] [address] Social History Tobacco Use Types [...] on filedocumented in this encounter Care Teams Load Out Worker Relationship Specialty Start Date End Date Eladio Lomas MD 1210 [facility] [address] [place] [address] Medical Oncologist Hematology and Oncology 07/08/22 Breanna Crow PA-C [address] [place], [place] [id number] Physician Bin Worker Oncology 07/08/22 documented as of this encounter
--- OUTSIDE RECORDS SUMMARY | 2024-10-23 10:53 | XMS_ITS | Encounter Summary ---
Author Organization [employer] Address [address] [facility] [place] [address] Care Team Providers Care Division Operations Specialist Name Role Phone Eladio Lomas MD Unavailable Breanna Crow PA-C Unavailable [phone] Encounter Details Date Type Department Care Team (Late st Contact Info) Description 10/17/2021 Transcribed Document [facility] [place] [facility] [place] [address] ProviderJailyn MD [address] [place] [address] Social History Tobacco Use Types [...] lower motor neuron process.. Integumentary: Warm, Dry, [place]. Neurologic: Alert, Oriented, Cranial Nerves II-XII are [...] rash. Leukocytosis, procalcitonin ordered. Disposition: Pending product development consultant recommendations and plans, still needs further [...] # 4.35 K/uL (High) 10/17/2021 02:21 EDT [place] % 15.2 % (High) 10/17/2021 02:21 EDT [place] # 2.14 K/uL (High) 10/17/2021 02:21 EDT [...] 10/17/2021 02:21 EDT Electronically signed by Huy, [facility] Conversion Delivery Driver/Customer Service Cerner at 08/17/2022 6:20 PM CDT documented in this encounter Plan of Treatment Not on file documented as of this encounter Visit Diagnoses Not on filedocumented in this encounter Care Teams Division Operations Specialist Relationship Specialty Start Date End Date Eladio Lomas MD [address] [address] Medical Oncologist Hematology and Oncology 07/08/22 Breanna Crow PA-C [address] [place] [address] [place], [place] [address] Physician Air Conditioning Sheet Metal Installer Oncology 07/08/22 documented as of this encounter
--- OUTSIDE RECORDS SUMMARY | 2024-10-23 10:53 | XMS_ITS | Encounter Summary ---
Author Organization [employer] Address [address] [facility] [place] [address] Care Team Providers Care Combustion Analyst Name Role Phone Eladio Lomas MD Unavailable Breanna Crow PA-C Unavailable [phone] Encounter Details Date Type Department Care Team (Late st Contact Info) Description 01/01/2022 Transcribed Document [facility] [place] [facility] [place] [address] ProviderJailyn MD [address] [place], [place] [id number] Social History Tobacco Use Types Packs/Day Years [...] , neural lysis, facetectomy, L4-5 SURGEON: Garcia Wokrman MD. PROPERTY MASTER: Roberto Plata ANESTHESIA: General. ESTIMATED BLOOD LOSS: [...] on filedocumented in this encounter Care Teams Combustion Analyst Relationship Specialty Start Date End Date Eladio Lomas MD 1210 [facility] [address], [place] [address] Medical Oncologist Hematology and Oncology 07/08/22 Breanna Crow PA-C 25[address] [facility] [address] [place] [address] Physician Last Picker Oncology 07/08/22 documented as of this encounter
--- OUTSIDE RECORDS SUMMARY | 2024-10-23 10:53 | XMS_ITS | Encounter Summary ---
Author Organization [employer] Address [address] [place] [address] Care Team Providers Care Catering Staff Member Name Role Phone Eladio Lomas MD Unavailable Breanna Crow PA-C Unavailable [phone] Encounter Details Date Type Department Care Team (Late st Contact Info) Description 10/18/2021 Transcribed Document [facility] Family Medicine [facility] [place] [address] ProviderJailyn MD [address] [place] [address] Social History Tobacco Use Types [...] intense exercise for several days. ??? Take gpmn-yic-byryqob and prescription medicines only as told by [...] not known. ??? Stay hydrated, and take clom-rfc-qbeedsn and prescription medicines only as told by your health care provider. This information is not intended to replace advice given to you by your health care provider. Make sure you discuss any questions you have with your health care provider. Document Revised: 09/03/2020 Document Reviewed: 09/03/2020 [employer] Patient Education ? 2020 [employer] documented in this encounter Plan of Treatment Not on file documented as of this encounter Visit Diagnoses Not on filedocumented in this encounter Care Teams Catering Staff Member Relationship Specialty Start Date End Date Eladio Lomas MD [address] [facility] [address] [address] Medical Oncologist Hematology and Oncology 07/08/22 Breanna Crow PA-C [address] [place] [address] [address] [place] [address] Physician Assistant Refinery Operator Oncology 07/08/22 documented as of this encounter
--- OUTSIDE RECORDS SUMMARY | 2024-10-23 10:53 | XMS_ITS | Encounter Summary ---
Author Organization [facility] [employer] Address [address] [place] [address] Care Team Providers Care Certified Real Estate Appraiser Name Role Phone Eladio Lomas MD Unavailable Breanna Crow PA-C Unavailable [phone] Encounter Details Date Type Department Care Team (Late st Contact Info) Description 10/14/2021 Transcribed Document [facility] [place] [facility] [place] [address] ProviderJailyn MD [address] [place], [place] [id number] Social History Tobacco Use Types Packs/Day Years [...] 10/14/2021 18:33 EDT Electronically signed by Huy [facility] Conversion Passenger Train Braker Cerner at 08/17/2022 6:01 PM CDT documented in this encounter Plan of Treatment Not on file documented as of this encounter Visit Diagnoses Not on filedocumented in this encounter Care Teams Certified Real Estate Appraiser Relationship Specialty Start Date End Date Eladio Lomas MD [address] [facility] [address] [place] [address] Medical Oncologist Hematology and Oncology 07/08/22 Breanna Crow PA-C [address] [address] Physician Vendor Analyst Oncology 07/08/22 documented as of this encounter
--- OUTSIDE RECORDS SUMMARY | 2024-10-23 10:53 | XMS_ITS | Clinical Summary ---
Author Organization [facility] Address [address] [facility] [address] [place] [address] Phone Care Team Providers Care Pack Mule Worker Name Role Phone Godfrey ALFARO, José Miguel [facility] [ ] Conditions or Problems Problem Name Problem Code Onset Date Status Entry Date Provider Comment Standard Description Annotate Acute DVT of leg, right 330267328 (SNOMED CT) Active José Miguel Donaheu MD Deep venous thrombosis of lower extremity Health advice, education, or counseling 153788227 (SNOMED CT) Active José Miguel Donahue MD Procedure carried out on subject PERSONAL HISTORY OF IMMUNOSUPPRES PILLO THERAPY 561019681 (SNOMED CT) 12/10 Active 12/10 José Miguel Donahue MD History of immunosuppressiv e therapy Foot drop, right 5837257 (SNOMED CT) 10/27 Active 10/27 José Miguel Donahue MD Foot-drop Benign Essential Hypertension 47351419 (SNOMED CT) 10/22 Active 10/22 Dorothy Juanpablo Benign hypertension Disseminated herpes zoster 26740660 (SNOMED CT) 10/22 Active 10/22 Dorothy Juanpablo Disseminated herpes zoster 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 10/22 Dorothy Juanpablo Leukemoid reaction Chronic lymphoid leukemia 85934952 (SNOMED CT) 10/22 Active 10/22 Dorothy Juanpablo Chronic lymphoid leukemia, disease Medications Medication Instructions Start Date Stop Date Generic Name [facility] Provider ELIQUIS 5 MG TABS twice a day apixaban 97114545770 Tonia Noland VALTREX 1 GM TABS Take 1 tablet by mouth once a day valacyclovir 28807111254 José Miguel Donahue MD ALLOPURINOL 300 MG TABS 1 tablet by mouth once a day allopurinol 08164483591 Suzanne Cope ELIQUIS 5 MG TABS 2 tablet by mouth twice a day apixaban 96593689115 Suzanne Cope PREDNISONE 10 MG TABS Take as directed prednisone 11695638181 Suzanne Cope VALTREX 500 MG TABS 2 tablet by mouth once a day valacyclovir 98634085013 Faby Donahue VALTREX 1 GM TABS Take 1 tablet by mouth once a day valacyclovir 97362350227 Faby Donahue ALLOPURINOL 300 MG TABS 1 tablet by mouth once a day allopurinol 59739048167 Marianayvette Wiggins ELIQUIS 5 MG TABS 2 tablet by mouth twice a day apixaban 57974619662 Marianayvette Wiggins Lactobacillus acidophilus 1 billion cell capsule 1 capsule by mouth twice a day lactobacillus acidophilus Mariana Wiggins MULTI-VITAMINS TABS multivitamin 77110469105 Mariana Wiggins PREDNISONE 10 MG TABS Take as directed prednisone 75107774103 Mariana Wiggins TYLENOL 325 MG TABS 2 tablet by mouth every four hours as needed acetaminophen 47709864679 Mariana Wiggins VALTREX 500 MG TABS 2 tablet by mouth once a day valacyclovir 86797659264 Mariana Rosalie Medications Administered No information available. [...] Labs CPT-sl STAT Labs CPT-sl STAT Labs CPT-00789 CMP [id number] CBC with Differential 2021 Vital Signs Date [...]
--- OUTSIDE RECORDS SUMMARY | 2024-10-23 10:53 | XMS_ITS | Encounter Summary ---
Author Organization [facility] Address [address] [place] [address] Care Team Providers Care Document Analyst Name Role Phone Eladio Lomas MD Unavailable Breanna Crow PA-C Unavailable [phone] Encounter Details Date Type Department Care Team (Late st Contact Info) Description 01/01/2022 Transcribed Document [facility] [place] [address] ProviderJailyn MD [address] [place] [address] Social History Tobacco Use Types [...] HU /Sex: 1950 Male Med Rec #: [id number] Physician: GARCIA WORKMAN MD-ORT Financial #: [id number] Pt. Type: O Room/Bed: [facility]/ Admit/Disch: 01/01/22 09:26:00 - Institution: [facility] IntraOp Case Attendance Entry 1 Entry 2 Entry 3 Case Attendee GARCIA WORKMAN MD-ZAC GAMION, Susannah MCINTOSH Jachob, CRNA [email or web address] Role Performed Surgeon/Proceduralist, MILD DISABILITIES TEACHER/Nurse Optomechanical Technician MILD DISABILITIES TEACHER/Nurse Optomechanical Technician First Time In 01/01/22 10:42:00 01/01/22 10:42:00 01/01/22 10:42:00 Time Out 01/01/22 11:49:00 01/01/22 11:49:00 01/01/22 11:49:00 Procedure Lumbar Laminectomy Lumbar Laminectomy Lumbar Laminectomy Other Attendee Superficial Wound Closed By: Last Modified By: SAMMIE PEREZ, SAMMIE VARNER, SAMMEI VARNER, SHARYN 01/01/22 11:49:14 01/01/22 11:49:14 01/01/22 11:49:14 Entry 4 Entry 5 Entry 6 Case Attendee SAMMIE PEREZ, Lea Charles, RN Paulina Joseph, Charge Lpn Role Performed Vessel Welder, First Vessel Welder, Second Scrub, First Time In 01/01/22 10:42:00 [...] Padilla, CHRISTOFER ARDON PA-UNK Dawes, Jessica T, Consumer Insight Manager Role Performed Scrub, Second Physician funeral assistant Woodwork Salvage Inspector Time In 01/01/22 10:42:00 01/01/22 10:42:00 01/01/22 10:42:00 Time Out 01/01/22 11:49:00 01/01/22 11:49:00 01/01/22 11:49:00 Procedure Lumbar Laminectomy Lumbar Laminectomy Lumbar Laminectomy Other Attendee Superficial Wound Closed By: Last Modified By: SAMMIE PEREZ, SAMMIE VARNER, RN SAMMIE PEREZ, SHARYN 01/01/22 11:49:14 01/01/22 11:49:14 01/01/22 11:49:14 [facility] IntraOp Case Attendance Audit 01/01/22 11:49:14 Chief Ultrasound Technologist: SAM Modifier: LONGGA 1 <+> Time In [...] 9 <*> Procedure Lumbar Laminectomy 01/01/22 10:34:07 Chief Ultrasound Technologist: SAM Modifier: LONGGA <+> 1 Procedure 2 [...] [facility] IntraOp Case Times Audit 01/01/22 11:49:13 Chief Ultrasound Technologist: LONGGA Modifier: LONGGA <+> 1 Out Room Time <+> 1 Stop Time <+> 1 Stop Time 01/01/22 11:07:50 Chief Ultrasound Technologist: LONGGA Modifier: LONGGA <+> 1 Start Time [...] 11:10:17 [facility] IntraOp Cautery Audit 01/01/22 11:10:35 Chief Ultrasound Technologist: LONGGA Modifier: LONGGA 1 <*> Grounding Pad [...] Performed By Count Performed By Layla Padilla WHIPPED TOPPING SUPERVISOR (Scrub) Count Performed By SAMMIE PEREZ RN [...] RN 01/01/22 10:31:33 [facility] IntraOp General Case Block Mason 1 Case Information OR OR 01 [facility] Case Level 1 Room Verified Yes Wound Class 1 - Clean Specialty Neurosurgery Anesthesia Type General ASA Class 2 Diagnosis Preop Diagnosis STENOSIS L4-5 Postop Same As Preop Yes Postop Diagnosis STENOSIS L4-5 Wound Class Definitions Last Modified By: SAMMIE PEREZ RN 01/01/22 10:47:20 [facility] IntraOp General Case Data Audit 01/01/22 10:47:20 Chief Ultrasound Technologist: SAM Modifier: LONGGA 1 <*> OR OR [...] 1ml epinephrine 1:200,000 topical kit injection - [id number] 30ml vial - [id number] (recombinant) - [id number] Combo Med List Time Administered Route of [...] [facility] IntraOp Medication Admin Audit 01/01/22 11:28:39 Chief Ultrasound Technologist: SAM Modifier: SAM <+> 3 Medication/Irrigant <+> [...] [facility] IntraOp Surgical Procedures Audit 01/01/22 11:41:50 Chief Ultrasound Technologist: LONGGA Modifier: LONGGA 1 <*> Procedure Lumbar Laminectomy 1 <+> Stop 01/01/22 11:38:39 Chief Ultrasound Technologist: LONGGA Modifier: LONGGA 1 <*> Procedure Lumbar Laminectomy 1 <*> Additional Procedure Description RIGHT L4-5 LAMINECTOMY, DISCECTOMY 01/01/22 11:07:55 Chief Ultrasound Technologist: LONGGA Modifier: LONGGA <+> 1 Start [facility] IntraOp Temp Regulation Devices Entry 1 Temp Regulation Temperature Warm blankets Regulation Device Temperature Upper body Regulation Site Temperature LARRY GAMINO PAYAL, Regulation Device MILD DISABILITIES TEACHER Applied by Last Modified By: SAMMIE PEREZ [...] Type Fluoroscopy Fluoroscopy Type C-Arm Site BACK Stallion Keeper Name Masha Sanders, Consumer Insight Manager Protective Devices Yes Used Last Modified By: SAMMIE PEREZ RN 01/01/22 11:13:53 Case Comments <None> Finalized By: SAMMIE PEREZ, RN Document Signatures Signed By: SAMMIE PEREZ RN 01/01/22 11:50 SAMMIE PEREZ RN 01/01/22 12:22 Unfinalized History Date/Time Username Reason for Unfinalizing Freetext Reason for Unfinalizing 01/01/22 12:21 [email or web address] Correct Documentation Electronically signed by Huy [facility] Conversion Automobile Service Advisor Cerner at 08/17/2022 6:06 PM CDT documented in this encounter Plan of Treatment Not on file documented as of this encounter Visit Diagnoses Not on filedocumented in this encounter Care Teams Document Analyst Relationship Specialty Start Date End Date Eladio Lomas MD [address] [address] Medical Oncologist Hematology and Oncology 07/08/22 Breanna Crow PA-C [address] [facility] [address] [place] [address] Physician Fish Salter Oncology 07/08/22 documented as of this encounter
--- OUTSIDE RECORDS SUMMARY | 2024-10-23 10:53 | XMS_ITS | Encounter Summary ---
Author Organization [employer] Address [address] [place] [address] Care Team Providers Care Compensation Vice President Name Role Phone Eladio Lomas MD Unavailable Breanna Crow PA-C Unavailable [phone] Encounter Details Date Type Department Care Team (Late st Contact Info) Description 10/14/2021 Transcribed Document [facility] [place] [facility] [address] ProviderJailyn MD [address] [place] [address] Social History Tobacco Use Types [...] Temperature : Warm Skin Description : Dry, [place] FLORA SOUZA RN - 10/15/2021 1:37 EDT ED General-Functional Assess Information Obtained From : Patient Communication Barrier : None Primary Language : Kyrgyz Any Spiritual/Cultural Needs or Requests : No [...] FLORA SOUZA RN - 10/15/2021 1:37 EDT [place] Com[place] Best Motor Response : Obey commands [place] Best Verbal Response : Oriented [place] Eye Opening Response : Spontaneous [place] Coma Score : 15 FLORA SOUZA RN - 10/15/2021 1:37 EDT documented in this encounter Plan of Treatment Not on file documented as of this encounter Visit Diagnoses Not on filedocumented in this encounter Care Teams Compensation Vice President Relationship Specialty Start Date End Date Eladio Lomas MD [address] [address] Medical Oncologist Hematology and Oncology 07/08/22 Breanna Crow PA-C [address] [facility] [address] [place] [address] Physician Corporate Strategy Intern Oncology 07/08/22 documented as of this encounter
--- OUTSIDE RECORDS SUMMARY | 2024-10-23 10:53 | XMS_ITS | Encounter Summary ---
Author Organization [facility] [employer] Address [address] [place] [address] Care Team Providers Care Ruby On Rails Consultant Name Role Phone Eladio Lomas MD Unavailable Breanna Crow PA-C Unavailable [phone] Encounter Details Date Type Department Care Team (Late st Contact Info) Description 01/01/[address] [facility] Family Medicine [facility] [place] [address] ProviderJailyn MD [address] [place] [address] Social History Tobacco Use Types [...] on filedocumented in this encounter Care Teams Ruby On Rails Consultant Relationship Specialty Start Date End Date Eladio Lomas MD [address] [facility] [address] [place] [address] Medical Oncologist Hematology and Oncology 07/08/22 Breanna Crow, PACecilia [address] [address] Physician Restaurant Culinary Manager Oncology 07/08/22 documented as of this encounter
--- OUTSIDE RECORDS SUMMARY | 2024-10-23 10:53 | XMS_ITS | Encounter Summary ---
Author Organization [facility] [employer] Address [address] [place] [address] Care Team Providers Care Staffing Operations Manager Name Role Phone Eladio Lomas MD Unavailable Breanna Crow PA-C Unavailable [phone] Encounter Details Date Type Department Care Team (Late st Contact Info) Description 10/16/2021 Transcribed Document [facility] [place] [facility] [place] [address] ProviderJailyn MD [address] [place], [place] [id number] Social History Tobacco Use Types Packs/Day Years [...] On: 10/16/2021 15:13 EDT by Jessica Rivera, Chandelier MakerHealth Unit Coord Phone Call for Consults Consult Phone Call/Page Attempt : First call Physician Covering for Consult : TRENA DONAHUE MD-INF Consult, Additional Information : Consult called in to Dr. Trena Donahue, he stated that if Dr Edwin Carver had not seen them today, he would see them tomorrow Jessica Rivera, Chandelier Maker-Health Unit Coord - 10/16/2021 17:43 EDT documented in this encounter Plan of Treatment Not on file documented as of this encounter Visit Diagnoses Not on filedocumented in this encounter Care Teams Staffing Operations Manager Relationship Specialty Start Date End Date Eladio Lomas MD [address] [facility] [address] [place] [address] Medical Oncologist Hematology and Oncology 07/08/22 Breanna Crow PA-C [address] [place] [address] Physician Cardroom Hand Oncology 07/08/22 documented as of this encounter
--- OUTSIDE RECORDS SUMMARY | 2024-10-23 10:53 | XMS_ITS | Encounter Summary ---
Author Organization [facility] [employer] Address [address] [place] [place] [address] Care Team Providers Care Professional System Administrator Name Role Phone Eladio Lomas MD Unavailable Breanna Crow PA-C Unavailable [phone] Encounter Details Date Type Department Care Team (Late st Contact Info) Description 01/01/2022 Transcribed Document [facility] [place] [place] [address] ProviderJailyn MD [address] [place] [address] Social History Tobacco Use Types [...] Lira MD - 01/01/2022 1:12 PM CDT [address] [address] SARAH HU :1950 Visit Time:01/01/2022 [...] for follow-up date and appointment time Activity: [place] dressing. Do not remove. May shower with [...] MD-ORT When 01/14/2022 11:00 AM EDT Where: [address] [place] [address] [address] [place] [address]- Medications What How Much When Instructions Next Dose acetaminophen-oxyCODONE (Percocet 7.5/ 325 oral tablet) 1 Tablet(s) Oral Three Times A Day as needed for for pain Pickup at [facility] acetaminophen (Tylenol 325 mg oral tablet) 2 Tablet(s) Oral Every 4 Hours as needed for Pain (Mild 1-3) ergocalciferol (ergocalciferol 50 mcg (2000 intl units) oral capsule) 1 Capsule(s) Oral Every Day Duration: 14 Day(s) multivitamin (Multiple Vitamins oral tablet) 1 Tablet(s) Oral Every Day valACYclovir (Valtrex 1 g oral tablet) 1 Tablet(s) Oral Every Day Pharmacy Information [facility]: [address] [place], [place] [phone] Take your medications faithfully. Do NOT skip [...] these instructions at home: Medicines ??? Take onlz-yss-xsjbpfg and prescription medicines as told by your [...] keep your urine pale yellow. ? Take dpiz-yww-aocwcaq or prescription medicines. ? Eat foods that [...] and water are not available, use hand rig builder helper. ? Change your dressing as told by [...] safe to drive. General instructions ??? Take ylyo-dxn-puiasrw and prescription medicines only as told by [...] provider. Document Revised: 08/06/2020 Document Reviewed: 08/06/2020 [employer] Patient Education ?? 2021 [employer] Laminectomy, Care After This sheet gives [...] these instructions at home: Medicines ??? Take ytrg-sbo-owcibgc and prescription medicines only as told by [...] keep your urine pale yellow. ? Take kema-oqx-nzzguih or prescription medicines. ? Eat foods that [...] and water are not available, use hand rig builder helper. ? Change your dressing as told by [...] provider. Document Revised: 11/12/2019 Document Reviewed: 11/12/2019 [employer] Patient Education ?? 2021 [employer] Emergency Awareness and Preventative Care STROKE is [...] Assistance with quitting is available by contacting 1-181-GFEJ-NOW. This is a free resource providing counseling, [...] was given the opportunity to ask questions. Patient/Ribbon Hanking Machine Operator Name: Patient/Ribbon Hanking Machine Operator Signature: Relationship to Patient: Clinician/Hospital Ribbon Hanking Machine Operator Signature: Date: documented in this encounter Plan of Treatment Not on file documented as of this encounter Visit Diagnoses Not on filedocumented in this encounter Care Teams Professional System Administrator Relationship Specialty Start Date End Date Eldaio Lomas MD 12[address] [facility] [address] [place] [address] Medical Oncologist Hematology and Oncology 07/08/22 Breanna Crow PA-C [address] [facility] [address] [place] [address] Physician Lead Quality Technician Oncology 07/08/22 documented as of this encounter
--- OUTSIDE RECORDS SUMMARY | 2024-10-23 10:53 | XMS_ITS | Encounter Summary ---
Author Organization [facility] [employer] Address [address] [place] [address] Care Team Providers Care Suggestion Clerk Name Role Phone Eladio Lomas MD Unavailable Breanna Crow PA-C Unavailable [phone] Encounter Details Date Type Department Care Team (Late st Contact Info) Description 10/14/2021 Transcribed Document [facility] [place] [facility] [place] [address] ProviderJailyn MD [address] [place], [place] [phone] Social History Tobacco Use Types Packs/Day Years [...] Lira MD - 10/14/2021 6:20 PM CDT [place] Suicide Severity Rating Scale (C-SSRS) Entered On: 10/14/2021 18:34 EDT Performed On: 10/14/2021 18:33 EDT by UGO FAN RN [place] Suicide Severity Rating Scale (C-SSRS) CSSRS Past [...] on filedocumented in this encounter Care Teams Suggestion Clerk Relationship Specialty Start Date End Date Eladio Lomas MD 12[address] [facility] [address], [place] [address] Medical Oncologist Hematology and Oncology 07/08/22 Breanna Crow, PACecilia [address] [place] [address] Physician Operating Engineer Apprentice Oncology 07/08/22 documented as of this encounter
[2024-10-26 07:11] LABS: ONC Beta-2 Microglobulin 4.2 mg/L (0.6-2.4)
== END 2024-10-23 23:59 | disposition home or self-care (01) ==
LOC: LAB 10:50
PROVIDERS: PCP Family Medicine; Visit Provider Internal Medicine Medical Oncology
DX: C91.12 Chronic lymphocytic leukemia of B-cell type in relapse (principal)
CPT/HCPCS: 36415; 82232

== ENCOUNTER 2024-11-12 09:44 | Outpatient (CLI) | payer MEDICARE, SELFPAY ==
--- OUTSIDE RECORDS SUMMARY | 2024-11-12 09:47 | XMS_ITS | Referral Summary ---
Author Organization [employer] ([place], [place], [place], [place]) Address [address] [place] [address] Care Team Providers Care Operations Lieutenant Name Role Phone Eladio Lomas MD Unavailable Breanna Crow PA-C Unavailable [phone] Allergies Active Allergy Reactions Criticality Noted [...] often do you attend chur ch or mandaen services? Never 07/08/2022 Do you belong to any clubs o r organizations such as baptist groups, unions, fraternal or athletic groups, or school groups? No 07/08/2022 Attends Club or Organization Meetings Not on jalen e 07/08/2022 Are you , , di vorced, , never , or living with a partner? 07/08/2022 Overall Financial Resource Strain (CARDIA) Answe r Date Recorded How hard is it for you to pa y for the very basics like food, housing, medical care, and heating? Not hard at all 07/08/2022 Exercise Vital Sign Answer [...] things needed for daily living? No 07/08/2022 Family and Community Support Answer Min e Recorded Help with Day to Day Activities Not on file 05/13/2023 Feeling Lonely or Isolated Not on file 05/13 Educational Attainment Answer Date Ata rded Speak language other than Guyanese at home Not on file 05/13/2023 Want help with school or training Not on file 05/13/2023 Substance Use Answer Date Recorded Used [...] Plan of Treatment [place] [address] [facility] MEDICARE PPO [employer] MEDICARE PPO Care Teams Operations Lieutenant Relationship Specialty Start Date End Date Eladio Lomas MD 12[address] [facility] [address] [place] [address] Medical Oncologist Hematology and Oncology 07/08/22 Breanna Crow PA-C [address] [facility] [address] [place] [address] Physician Pole Frame Construction Worker Oncology 07/08/22
--- OUTSIDE RECORDS SUMMARY | 2024-11-12 09:47 | XMS_ITS | Encounter Summary ---
Author Organization Healthcare Address [address] [place] [address] Care Team Providers Care Dog Warden Name Role Phone Per Patient, None Primary Care Provider Unavaila ble Encounter Details Date Type Department Care Team (Late st Contact Info) Description 01/07/2021 Orders Only [facility] [address] [place] [address] Maurisio Aguilar MD [address] [address] Social History Tobacco Use Types [...] External WBC 6.9 3.8 - 10.8 K/uL [facility] External Red Blood Cell (RBC) 5.24 4.20 - 5.80 M/uL [facility] External Hemoglobin 15.5 14.0 - 18.0 G/DL [facility] External Hematocrit 44.1 40.0 - 52.0 % [facility] External MCV 84 80 - 100 fL [facility] External MCH 30 26 - 35 PG [facility] External MCHC 35 32 - 36 G/DL [facility] External RDW 13.5 11.0 - 15.0 % [facility] External Mean Platelet Volume 7.6 6.2 - 10.5 fL [facility] External Platelets 162 130 - 400 K/uL [facility] External Neutrophil# 3.0 1.6 - 8.4 K/uL [facility] External Lymphocyte# 3.2 0.4 - 5.1 K/uL [facility] External Absolute Monocyte (Abs Hudson) 0.4 0.0 - 1.2 K/uL [facility] External Eosinophils# 0.1 0.0 - 0.8 K/uL [facility] External Baso# 0.0 0.0 - 0.3 K/uL [facility] External Neutrophils % 43.0 42.0 - 78.0 % [facility] External Lymphocyte % 46.0 11.0 - 47.0 % [facility] External Monocyte % 6.0 0.0 - 11.0 % [facility] External Eosinophil% 1.0 0.0 - 7.0 % [facility] External Basophil % 0.0 0.0 - 3.0 % [facility] External Nucleated RBC%-Auto 0.2 0.0 - 0.9 % [facility] External Nucleated RBC Absolute 0.01 Not Estab. K/uL [facility] 01/07/2021 10:0 5 AM EDT 01/07/2021 10:20 AM EDT us Maurisio Aguilar MD LAB BLOOD ORDERABLES Final Res ult Performing Organization Address City/State/[facility] Co de Phone Number [facility] [address] [id number], documented in this encounter Visit Diagnoses Not on filedocumented in this encounter Care Teams Dog Warden Relationship Specialty Start Date End Date Per Patient, [place] [address] PCP - General 05/02/20 documented as of this encounter
--- OUTSIDE RECORDS SUMMARY | 2024-11-12 09:47 | XMS_ITS | Encounter Summary ---
Author Organization [employer] ([place], [place], [place], [place]) Address [address] [place] [address] Care Team Providers Care Circuit Court Magistrate Name Role Phone Eladio Lomas MD Unavailable Breanna Crow PA-C Unavailable [phone] Encounter Details Date Type Department Care Team (Late st Contact Info) Description 10/17/2021 Transcribed Document [facility] Family Medicine [address] [place] [address] ProviderJailyn MD [address] [place] [address] Social History Tobacco Use Types Packs/Day Years Used Date Smoking Tobacco: Never Assessed Social Connection and Isolat ion Panel [NHANES] Answer Date Recorded In a typical week, how many times do you talk on the phone with family, friends, or neighbors? More than three times a week 07/08/2022 How often do you get togethe r with friends or relatives? More than three times a week 07/08/2022 How often do you attend chur ch or yazidi services? Never 07/08/2022 Do you belong to any clubs o r organizations such as religion groups, unions, fraternal or athletic groups, or [...] Date Ata rded Speak language other than Serbian at home Not on file 05/13/2023 Want [...] PM CDT Sexual Orientation Not on file COVID-19 Exposure Response Date Recorded In the last 10 days, have yo u been in contact with someone who was confirmed or suspected to have Coronavirus/COVID-19? No / Unsure 07/21/2022 12:45 PM EDT documented as of this encounter Miscellaneous Notes * Cerner Conversion Note - Historical Provider, - 10/17/2021 12:50 PM CDT Patient: CORBIN [...] to fall prompting him to come to [facility] ED on 10/15. He was admitted for concerns of Claudia [place] Syndrome. A CT scan of lumbar spine [...] with pancreatic cancer SH: , lives in [place], [place]. Former remotes smoker, denies alcohol, or [...] hrs) Last Charted Minimum Maximum Temp 98 (SEP 18 10:12) 97.8 (SEP 18 02:15) 98 (SEP 17 16:44) Mon HR 77 (SEP 18 10:12) 63 (SEP 17 22:05) 78 (SEP 17 18:34) Resp Rate 17 (CINDI 18 10:12) 16 (SEP 17 16:44) 18 (SEP 17 22:05) SBP H 143 (CINDI 18 10:12) 126 (CINDI 17 16:44) H 160 (SEP 18 06:20) DBP L 52 (CINDI 18 10:12) L 52 (CINDI 18 10:12) 80 (SEP 17 18:34) MAP 75 (CINDI 18 10:12) 69 (SEP 17 16:44) 91 (SEP 18 06:20) SpO2 98 (SEP 18 10:12) 94 (SEP 17 22:05) 99 (SEP 17 18:34) Exam: Constitutional: NAD, alert, WD/WN, [...] 16) PTN L 6.0 (CINDI 17) 6.4 (OCT 15) ALB 3.6 (OCT 16) 3.6 (OCT 15) Creatinine Clearance (Current Encounter/Past 24 Hours) Creatinine Level 0.84 mg/dL 10/17/2021 03:30 Bun/Creatinine 26.2 HI 10/17/2021 03:30 Estimated Creatinine Clearance 66.12 mL/Min 10/17/2021 03:30 Micro: None Rad: Radiology Results (Last 48 hours) [id number] -- 10/15/2021 03:06 MRI Spine Thoracic WO [...] with SHARYN Montana on 10/17/2021 11:48 AM byYisel Jung, over the phone.Images personally reviewed, interpreted, [...] Dr. Trena Donahue. Electronically signed by Huy [facility] Conversion Forest Technology Professor Cerner at 08/17/2022 6:00 PM CDT documented in this encounter Plan of Treatment Not on file documented as of this encounter Visit Diagnoses Not on filedocumented in this encounter Care Teams Circuit Court Magistrate Relationship Specialty Start Date End Date Eladio Lomas MD 12[address] [facility] [address] [place] [address] Medical Oncologist Hematology and Oncology 07/08/22 Breanna Crow PA-C 3470 [facility] [address] [place] [address] Physician Educational Fundraising Director Oncology 07/08/22 documented as of this encounter
--- OUTSIDE RECORDS SUMMARY | 2024-11-12 09:47 | XMS_ITS | Encounter Summary ---
Author Organization [employer] ([place], [place], [place], [place]) Address [address] [place] [address] Care Team Providers Care Recoater Name Role Phone Eladio Lomas MD Unavailable Breanna Crow PA-C Unavailable [phone] Encounter Details Date Type Department Care Team (Late st Contact Info) Description 10/15/2021 Transcribed Document [facility] [place] [facility] [address] [place] [address] ProviderJailyn MD [address] [place] [address] Social History Tobacco Use Types [...] often do you attend chur ch or oriental orthodox services? Never 07/08/2022 Do you belong to any clubs o r organizations such as pentecostal groups, unions, fraternal or athletic groups, or [...] Date Ata rded Speak language other than Thai at home Not on file 05/13/2023 Want [...] Cerner Conversion Note - Historical Provider, - 10/15/2021 5:37 AM CDT Consult Phone [...] Physician Covering for Consult : BIANCA HORNER APRN-SERENE Date and Time Call Returned : 10/15/2021 6:34 EDT CHLOE LORENZO - 10/15/2021 6:53 EDT documented in this encounter Plan of Treatment Not on file documented as of this encounter Visit Diagnoses Not on filedocumented in this encounter Care Teams Recoater Relationship Specialty Start Date End Date Eladio Lomas MD 12[address] [facility] [address] [address] Medical Oncologist Hematology and Oncology 07/08/22 Breanna Crow PACecilia [address] [place] [address] [address] [place] [address] Physician Hand Coremaker Oncology 07/08/22 documented as of this encounter
--- OUTSIDE RECORDS SUMMARY | 2024-11-12 09:47 | XMS_ITS | Encounter Summary ---
Author Organization [employer] ([place], [place], [place], [place]) Address [address] [place] [address] Care Team Providers Care Header Operator Name Role Phone Eladio Lomas MD Unavailable Breanna Crow PA-C Unavailable [phone] Encounter Details Date Type Department Care Team (Late st Contact Info) Description 10/17/2021 Transcribed Document [facility] Family Medicine [address] [place] [address] ProviderJailyn MD [address] [place] [address] Social History Tobacco Use Types [...] any clubs o r organizations such as amish groups, unions, fraternal or athletic groups, or [...] Date Ata rded Speak language other than Ethiopian at home Not on file 05/13/2023 Want [...] Conversion Note - Historical Provider, - 10/17/2021 2:00 AM CDT Dog Barber Details Entered On: 10/17/2021 5:10 EDT Performed [...] - 10/17/2021 5:09 EDT Electronically signed by [facility], [facility] Conversion Medical Laboratory Technician Cerner at 08/17/2022 6:17 PM CDT documented in this encounter Plan of Treatment Not on file documented as of this encounter Visit Diagnoses Not on filedocumented in this encounter Care Teams Header Operator Relationship Specialty Start Date End Date Eladio Lomas MD [address] [place] [address] Medical Oncologist Hematology and Oncology 07/08/22 Breanna Crow, PA-C [address] [facility] [address] [place] [address] Physician Pool Coordinator Oncology 07/08/22 documented as of this encounter
--- OUTSIDE RECORDS SUMMARY | 2024-11-12 09:47 | XMS_ITS | Encounter Summary ---
Author Organization [employer] ([place], [place], [place], [place]) Address [address] [place] [address] Care Team Providers Care Imaging Engineer Name Role Phone Eladio Lomas MD Unavailable Breanna Crow PA-C Unavailable [phone] Encounter Details Date Type Department Care Team (Late st Contact Info) Description 10/17/2021 Transcribed Document [facility] [address] [place] [address] ProviderJailyn MD [address] [place] [address] Social History Tobacco Use [...] often do you attend chur ch or restoration services? Never 07/08/2022 Do you belong to any clubs o r organizations such as synagogue groups, unions, fraternal or athletic groups, or [...] Date Ata rded Speak language other than Citizen Of [place] at home Not on file 05/13/2023 Want [...] Conversion Note - Historical Provider, - 10/17/2021 12:11 PM CDT Patient: SARAH [...] to assume that as it was a carpet measurer who did the biopsy, and and told [...] At risk for sleep apnea / [id number] [id number] / Confirmed, Active Problems (2) At risk for sleep apnea Mitral valve prolapse documented in this encounter Plan of Treatment Not on file documented as of this encounter Visit Diagnoses Not on filedocumented in this encounter Care Teams Imaging Engineer Relationship Specialty Start Date End Date Eladio Lomas MD 1210 [facility] [address] [place] [address] Medical Oncologist Hematology and Oncology 07/08/22 Breanna Crow PA-C [address] [address] Physician Ice Sculptor Oncology 07/08/22 documented as of this encounter
--- OUTSIDE RECORDS SUMMARY | 2024-11-12 09:47 | XMS_ITS | Encounter Summary ---
Author Organization Healthcare Address [address] [place] [address] Care Team Providers Care Sewing Machine Tester Name Role Phone Per Patient, None Primary Care Provider Unavaila ble Encounter Details Date Type Department Care Team (Late st Contact Info) Description 01/07/2021 Orders Only [facility] [address] [place] [address] Maurisio Aguilar MD [address] [address] Social History Tobacco Use Types [...] Band Neutrophil% 0.0 0.0 - 7.0 % [facility] External Atypical Lymph% 4(H) 0 - 1 % [facility] External Metamyelocyte % 0 0 - 1 % [facility] External Myelocyte % 0 0 - 1 % [facility] External Promyelocyte% 0 % [facility] External Blast% 0 % [facility] External Nucleated RBC%-Manual 0 /100 WBC [facility] External Smudge Cells 0 [facility] External Platelet Morphology NORMAL [facility] External Ovalocytes SLIGHT(A) [facility] External Tear Drop Cells SLIGHT(A) [facility] 01/07/2021 10:0 5 AM EDT 01/07/2021 10:20 AM EDT us Maurisio Aguilar MD LAB BLOOD ORDERABLES Final Res ult Performing Organization Address City/State/[facility] Co de Phone Number [facility] [address] [place] [address], documented in this encounter Visit Diagnoses Not on filedocumented in this encounter Care Teams Sewing Machine Tester Relationship Specialty Start Date End Date Per Patient, [place] [address] PCP - General 05/02/20 documented as of this encounter
--- OUTSIDE RECORDS SUMMARY | 2024-11-12 09:47 | XMS_ITS | Encounter Summary ---
Author Organization [facility] Address [address] [id number] Care Team Providers Care Sales Project Manager Name Role Phone Per Patient, None Primary Care Provider Unavaila ble Encounter Details Date Type Department Care Team ([facility] st Contact Info) Description 10/08/2021 Lab Requisition [facility] [address] [place] [address] Maurice Power MD [facility] [place] [address] Unspecified lesions of oral mucosa [...] billing purposes only. 10/26/2021 7:22 AM EDT [facility] at 0722 EDT Case Report Surgical Pathology Report Case: [id number] Authorizing Provider: Maurice Power MD Collected: 10/08/2021 Ordering Location: [facility] Received: 10/08/2021 7254 Pathologist: Cindy Flores MD Specimen: [id number] 10/26/2021 7:22 AM EDT [facility] Tissue 10/08/2021 10/08/2021 4:5 9 PM EDT us Maurice Power MD LAB PATHOLOGY ORDERABLES Final Result [facility] [address] [place] [address] documented in this encounter Visit Diagnoses Diagnosis Unspecified lesions of oral mucosa documented in this encounter Care Teams Sales Project Manager Relationship Specialty Start Date End Date Per Patient, [place] [address] PCP - General 05/02/20 documented as of this encounter
--- OUTSIDE RECORDS SUMMARY | 2024-11-12 09:47 | XMS_ITS | Clinical Summary ---
Author Organization [employer] ([place], [place], [place], [place]) Address [address] [place] [address] Care Team Providers Care Cable Tool Operator Name Role Phone Eladio Lomas MD Unavailable Breanna Crow PA-C Unavailable [phone] Allergies Active Allergy Reactions Criticality Noted [...] often do you attend chur ch or nondenominational services? Never 07/08/2022 Do you belong to any clubs o r organizations such as islam groups, unions, fraternal or athletic groups, or [...] Date Ata rded Speak language other than Guinean at home Not on file 05/13/2023 Want [...] 04/21/2023 Falls Risk Screening 05/02/2024 Influenza Vaccine (#1) 2024 , 02/05/2021, 04/10/2018, Additional history exists Pneumococcal 50+ years Completed 02/09/2022 Insurance [employer] MEDICARE PPO [employer] MEDICARE PPO Care Teams Cable Tool Operator Relationship Specialty Start Date End Date Eladio Lomas MD 12[address] [facility] [address] [place] [address] Medical Oncologist Hematology and Oncology 07/08/22 Breanna Crow PARebelC [address] [facility] [address] [place] [address] Physician Cage Maker Machine Oncology 07/08/22
--- OUTSIDE RECORDS SUMMARY | 2024-11-12 09:47 | XMS_ITS | Encounter Summary ---
Author Organization [employer] ([place], [place], [place], [place]) Address [address] [place] [address] Care Team Providers Care Physical Therapist Aide Name Role Phone Eladio Lomas MD Unavailable Breanna Crow PA-C Unavailable [phone] Encounter Details Date Type Department Care Team (Late st Contact Info) Description 10/17/2021 Transcribed Document [facility] Family Medicine [address] [place] [address] ProviderJailyn MD [address] [place] [address] Social History Tobacco Use Types [...] often do you attend chur ch or anabaptism services? Never 07/08/2022 Do you belong to [...] Date Ata rded Speak language other than Peruvian at home Not on file 05/13/2023 Want [...] Conversion Note - Historical Provider, - 10/17/2021 5:00 AM CDT Chart Check - Review Order Profile Entered On: 10/17/2021 5:08 EDT Performed On: 10/17/2021 5:00 EDT by ROMERO HOWARD LPN-LVN-PATIENT CARE BEDSIDE Chart Check Powerplans Initiated/Discontinued as Appropriate : Yes All Active Orders Reviewed : Yes ROMERO HOWARD LPN-LVN-PATIENT CARE BEDSIDE - 10/17/2021 5:08 EDT Electronically signed by H[facility] Conversion Starch And Prosize Mixer Cerner at 08/17/2022 6:00 PM CDT documented in this encounter Plan of Treatment Not on file documented as of this encounter Visit Diagnoses Not on filedocumented in this encounter Care Teams Physical Therapist Aide Relationship Specialty Start Date End Date Eladio Lomas MD 12[address] [facility] [address] [place] [address] Medical Oncologist Hematology and Oncology 07/08/22 Breanna Crow PA-C [address] [facility] [address] [place] [address] Physician Insurance Actuary Oncology 07/08/22 documented as of this encounter
--- OUTSIDE RECORDS SUMMARY | 2024-11-12 09:47 | XMS_ITS | Encounter Summary ---
Author Organization [employer] ([place], [place], [place], [place]) Address [address] [place] [address] Care Team Providers Care Hospice Home Health Aide Name Role Phone Eladio Lomas MD Unavailable Breanna Crow PA-C Unavailable [phone] Encounter Details Date Type Department Care Team (Late st Contact Info) Description 10/17/2021 Transcribed Document [facility] Family Medicine [address] [place] [address] ProviderJailyn MD [address] [place] [address] Social History Tobacco Use Types [...] often do you attend chur ch or advent services? Never 07/08/2022 Do you belong to any clubs o r organizations such as pentecostalism groups, unions, fraternal or athletic groups, or [...] Date Ata rded Speak language other than Chadian at home Not on file 05/13/2023 Want [...] Conversion Note - Historical Provider, - 10/17/2021 11:52 AM CDT Patient: SARAH [...] # 4.35 K/uL (High) 10/17/2021 02:21 EDT Christian % 15.2 % (High) 10/17/2021 02:21 EDT Christian # 2.14 K/uL (High) 10/17/2021 02:21 EDT [...] on filedocumented in this encounter Care Teams Hospice Home Health Aide Relationship Specialty Start Date End Date Eladio Lomas MD 1210 [facility] [address] [place] [address] Medical Oncologist Hematology and Oncology 07/08/22 Breanna Crow PA-C 70[address] [facility] [address] [place] [address] Physician Lease Analyst Oncology 07/08/22 documented as of this encounter
--- OUTSIDE RECORDS SUMMARY | 2024-11-12 09:47 | XMS_ITS | Clinical Summary ---
Author Organization [facility] Address [address] [place] [address] Care Team Providers Care Aircraft Mechanic Armament Name Role Phone Per Patient, None Primary [...] or (1 - 1-dose 75+ series) 01/05/2023 [id number] Vaccine ( - 2023- season) 2024 07/25/2020, 06/24/2020, 06/11/2020 UKY-Influenza Vaccine (#1) 12/31/202402/18, 01/17/2020, 04/10/2018, Additional history exists HPV Vaccines [...] this topic Insurance HU[employer]NA MEDICARE Care Teams Aircraft Mechanic Armament Relationship Specialty Start Date End Date Per Patient, [place] [address] PCP - General 05/02/20
--- OUTSIDE RECORDS SUMMARY | 2024-11-12 09:48 | XMS_ITS | Encounter Summary ---
Author Organization [employer] ([place], [place], [place], [place]) Address [address] [place] [address] Care Team Providers Care Telephone Operators Supervisor Name Role Phone Eladio Lomas MD Unavailable Breanna Crow PA-C Unavailable [phone] Encounter Details Date Type Department Care Team (Late st Contact Info) Description 10/15/2021 Transcribed Document [facility] [place] [facility] [address] [place] [address] ProviderJailyn MD [address] [place] [address] Social History Tobacco Use Types [...] often do you attend chur ch or cheondoism services? Never 07/08/2022 Do you belong to any clubs o r organizations such as druze groups, unions, fraternal or athletic groups, or [...] Date Ata rded Speak language other than Malagasy at home Not on file 05/13/2023 Want [...] Conversion Note - Historical Provider, - 10/15/2021 2:48 PM CDT Consult Phone Call Documentation Entered On: 10/15/2021 14:52 EDT Performed On: 10/15/2021 14:48 EDT by Miladys Carter, [facility] Coord Phone Call for Consults Consult Reason : right L5 radiculopathy causing foot drop Physician Requesting Consult : ROMERO INGRAM MD-SERENE Physician Requested for Consult : GARCIA WORKMAN MD-ORT Date and Time Call Returned : 10/15/2021 14:50 EDT Consult, Additional Information : Spoke with Dr. Workman in person concerning the consult. Miladys Carter, [facility] Coord - 10/15/2021 14:50 EDT Electronically signed by [facility], [facility] Conversion Media Monitor Cerner at 08/17/2022 6:04 PM CDT documented in this encounter Plan of Treatment Not on file documented as of this encounter Visit Diagnoses Not on filedocumented in this encounter Care Teams Telephone Operators Supervisor Relationship Specialty Start Date End Date Eladio Lomas MD 1210 [facility] [address], [place] [address] Medical Oncologist Hematology and Oncology 07/08/22 Breanna Crow PA-C [address] [facility] [address] [place] [address] Physician Multimedia Journalist Oncology 07/08/22 documented as of this encounter
--- OUTSIDE RECORDS SUMMARY | 2024-11-12 09:48 | XMS_ITS | Encounter Summary ---
Author Organization [employer] ([place], [place], [place], [place]) Address [address] [place] [address] Care Team Providers Care Nematologist Name Role Phone Eladio Lomas MD Unavailable Breanna Crow PA-C Unavailable [phone] Encounter Details Date Type Department Care Team (Late st Contact Info) Description 10/14/2021 Transcribed Document [facility] [place] [address] [place] [address] ProviderJailyn MD [address] [place] [address] Social History Tobacco Use Types [...] often do you attend chur ch or episcopal services? Never 07/08/2022 Do you belong to any clubs o r organizations such as restoration groups, unions, fraternal or athletic groups, or [...] Date Ata rded Speak language other than Australian at home Not on file 05/13/2023 Want [...] Cerner Conversion Note - Historical Provider, - 10/14/2021 6:20 PM CDT Broset Violence Assessment Entered On: 10/14/2021 18:33 EDT Performed On: 10/14/2021 18:33 EDT by UGO FAN, RN Broset Violence Assessment Broset Violence Checklist of Symptoms : None Broset Violence Symptoms Subtotal : 0 Broset Violence Symptoms Indicator : Low risk (0) UGO FAN RN - 10/14/2021 18:33 EDT documented in this encounter Plan of Treatment Not on file documented as of this encounter Visit Diagnoses Not on filedocumented in this encounter Care Teams Nematologist Relationship Specialty Start Date End Date Eladio Lomas MD 1210 [facility] [address] [place] [address] Medical Oncologist Hematology and Oncology 07/08/22 Breanna Crow, CHAVA [address] [address] Physician Chief Technical Officer Oncology 07/08/22 documented as of this encounter
--- OUTSIDE RECORDS SUMMARY | 2024-11-12 09:48 | XMS_ITS | Encounter Summary ---
Author Organization [employer] ([place], [place], [place], [place]) Address [address] [place] [address] Care Team Providers Care Spindle Repairer Name Role Phone Eladio Lomas MD Unavailable Breanna Crow PA-C Unavailable [phone] Encounter Details Date Type Department Care Team (Late st Contact Info) Description 01/01/2022 Transcribed Document [facility] [place] Medicine [address] [place] [address] ProviderJailyn MD [address] [place] [address] Social History Tobacco Use [...] often do you attend chur ch or worship services? Never 07/08/2022 Do you belong to any clubs o r organizations such as gnosticist groups, unions, fraternal or athletic groups, or [...] Date Ata rded Speak language other than Vincentian at home Not on file 05/13/2023 Want [...] Cerner Conversion Note - Historical Provider, - 01/01/2022 11:05 AM CDT [facility] OR PostOp Summary Primary Physician: GARCIA WORKMAN MD-ORT Finalized Date/Time: 01/01/22 13:28:39 Pt. Name: SARAH HU /Sex: 1950 Male Med Rec #: [id number] Physician: GARCIA WORKMAN MD-ORT Financial #: [id number] Pt. Type: O Room/Bed: [facility] Admit/Disch: 01/01/22 09:26:00 - Institution: [facility] OR PostOp Case Times Entry 1 In PACU II 01/01/22 12:41:00 Ready for PACU II 01/01/22 13:10:00 Discharge Discharge from PACU 01/01/22 13:20:00 II Last Modified By: DAYANA BALLARD, RN 01/01/22 13:28:32 [facility] OR PostOp Case Times Audit 01/01/22 13:28:32 Auditing Specialist: [email or web address] Modifier: [email or web address] <+> 1 Ready for PACU II Discharge <+> 1 Discharge from PACU II Finalized By: DAYANA BALLARD, RN Document Signatures Signed By: DAYANA BALLARD, RN 01/01/22 13:28 Electronically signed by Huy [facility] Conversion Patent Examiner Cerner at 08/17/2022 6:16 PM CDT documented in this encounter Plan of Treatment Not on file documented as of this encounter Visit Diagnoses Not on filedocumented in this encounter Care Teams Spindle Repairer Relationship Specialty Start Date End Date Eladio Lomas MD [address] [facility] [address] [address] Medical Oncologist Hematology and Oncology 07/08/22 Breanna Crow PA-C [address] [facility] [address] [place] [address] Physician Knuckler Oncology 07/08/22 documented as of this encounter
--- OUTSIDE RECORDS SUMMARY | 2024-11-12 09:48 | XMS_ITS | Encounter Summary ---
Author Organization [email or web address] ([place], [place], [place], [place]) Address [address] [place] [address] Care Team Providers Care Yarn Sizer Name Role Phone Eladio Lomas MD Unavailable Breanna Crow PA-C Unavailable [phone] Encounter Details Date Type Department Care Team (Late st Contact Info) Description 01/01/2022 Transcribed Document [facility] [place] Family Medicine [address] [place] [address] ProviderJailyn MD [address] [place] [address] Social History Tobacco Use Types [...] any clubs o r organizations such as confucianism groups, unions, fraternal or athletic groups, or [...] Date Ata rded Speak language other than Costa Rican at home Not on file 05/13/2023 Want [...] Conversion Note - Historical Provider, - 01/01/2022 12:58 [place] [address] SARAH HU :1950 Visit Time:01/01/2022 What to [...] for follow-up date and appointment time Activity: [place] dressing. Do not remove. May shower with [...] MD-ORT When 01/14/2022 11:00 AM EDT Where: [address] [place] [address] [address] [place] [address]- Medications What How Much When Instructions Next Dose acetaminophen-oxyCODONE (Percocet 7.5/ 325 oral tablet) 1 Tablet(s) Oral Three Times A Day as needed for for pain Pickup at [facility] acetaminophen (Tylenol 325 mg oral tablet) 2 Tablet(s) Oral Every 4 Hours as needed for Pain (Mild 1-3) ergocalciferol (ergocalciferol 50 mcg (2000 intl units) oral capsule) 1 Capsule(s) Oral Every Day Duration: 14 Day(s) multivitamin (Multiple Vitamins oral tablet) 1 Tablet(s) Oral Every Day valACYclovir (Valtrex 1 g oral tablet) 1 Tablet(s) Oral Every Day Pharmacy Information [facility]: [address] [place] [address] [phone] Take your medications faithfully. Do NOT skip [...] these instructions at home: Medicines ??? Take cixa-uih-icpuwzg and prescription medicines as told by your [...] keep your urine pale yellow. ? Take jgrc-bzv-ffzoepi or prescription medicines. ? Eat foods that [...] and water are not available, use hand medicaid specialist. ? Change your dressing as told [...] safe to drive. General instructions ??? Take ckdk-ahs-tjubyea and prescription medicines only as told by [...] provider. Document Revised: 08/06/2020 Document Reviewed: 08/06/2020 [employer] Patient Education ?? 2021 [employer] Laminectomy, Care After This sheet gives [...] these instructions at home: Medicines ??? Take oujv-sya-puxqukx and prescription medicines only as told by [...] keep your urine pale yellow. ? Take pcrw-cns-bwsnbso or prescription medicines. ? Eat foods that [...] and water are not available, use hand medicaid specialist. ? Change your dressing as told [...] provider. Document Revised: 11/12/2019 Document Reviewed: 11/12/2019 [employer] Patient Education ?? 2021 [employer]. Emergency Awareness and Preventative Care STROKE is [...] Assistance with quitting is available by contacting 9-241-TOWC-NOW. This is a free resource providing counseling, [...] was given the opportunity to ask questions. Patient/Patent Examiner Name: Patient/Patent Examiner Signature: Relationship to Patient: Clinician/Hospital Patent Examiner Signature: Date: documented in this encounter Plan of Treatment Not on file documented as of this encounter Visit Diagnoses Not on filedocumented in this encounter Care Teams Yarn Sizer Relationship Specialty Start Date End Date Eladio Lomas MD [address] [facility] [address] [place], [place] [address] Medical Oncologist Hematology and Oncology 07/08/22 Breanna Crow PARebelC [address] [facility] [address] [place] [address] Physician Monogram Machine Operator Oncology 07/08/22 documented as of this encounter
--- OUTSIDE RECORDS SUMMARY | 2024-11-12 09:48 | XMS_ITS | Clinical Summary ---
Author Organization [facility] Address [address] [place] [address] Phone Care Team Providers Care Plating Equipment Tender Name Role Phone Godfrey ALFARO, José Miguel Michaels [facility] [phone] [ ] Conditions or Problems Problem Name Problem Code Onset Date Status Entry Date Provider Comment Standard Description Annotate Acute DVT of leg, right 200344531 (SNOMED CT) Active José Miguel Donahue MD Deep venous thrombosis of lower extremity Health advice, education, or counseling 719329446 (SNOMED CT) Active José Miguel Donahue MD Procedure carried out on subject PERSONAL HISTORY OF IMMUNOSUPPRES PILLO THERAPY 807653578 (SNOMED CT) 12/10 Active 12/10 José Miguel Donahue MD History of immunosuppressiv e therapy Foot drop, right 0106019 (SNOMED CT) 10/27 Active 10/27 José Miguel Donahue MD Foot-drop Benign Essential Hypertension 52450825 (SNOMED CT) 10/22 Active 10/22 Dorothy Juanpablo Benign hypertension Disseminated herpes zoster 99482493 (SNOMED CT) 10/22 Active 10/22 Dorothy Juanpablo Disseminated herpes zoster 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 Provider ELIQUIS 5 MG TABS twice a day apixaban 71660205059 Tonia Noland VALTREX 1 GM TABS Take 1 tablet by mouth once a day valacyclovir 82125507780 José Miguel Donahue MD ALLOPURINOL 300 MG TABS 1 tablet by mouth once a day allopurinol 29306451619 Suzanne Cope ELIQUIS 5 MG TABS 2 tablet by mouth twice a day apixaban 68629955188 Suzanne Cope PREDNISONE 10 MG TABS Take as directed prednisone 15423826118 Suzanne Cope VALTREX 500 MG TABS 2 tablet by mouth once a day valacyclovir 51632554675 Faby Donahue VALTREX 1 GM TABS Take 1 tablet by mouth once a day valacyclovir 71012078840 Faby Donahue ALLOPURINOL 300 MG TABS 1 tablet by mouth once a day allopurinol 70696791180 Marianayvette Wiggins ELIQUIS 5 MG TABS 2 tablet by mouth twice a day apixaban 34298612206 Marianayvette Wiggins Lactobacillus acidophilus 1 billion cell capsule 1 capsule by mouth twice a day lactobacillus acidophilus Mariana Wiggins MULTI-VITAMINS TABS multivitamin 53612866982 Mariana Wiggins PREDNISONE 10 MG TABS Take as directed prednisone 39199583719 Mariana Wiggins TYLENOL 325 MG TABS 2 tablet by mouth every four hours as needed acetaminophen 00860733483 Mariana Wiggins VALTREX 500 MG TABS 2 tablet by mouth once a day valacyclovir 11989193321 Mariana Rosalie Medications Administered No information available. [...] Labs CPT-sl STAT Labs CPT-sl STAT Labs CPT-20017 CMP [id number] CBC with Differential 2021 Vital Signs Date [...]
--- OUTSIDE RECORDS SUMMARY | 2024-11-12 09:48 | XMS_ITS | Encounter Summary ---
Author Organization [employer] ([place], [place], [place], [place]) Address [address] [place] [address] Care Team Providers Care Telesales Specialist Name Role Phone Eladio Lomas MD Unavailable Breanna Crow PA-C Unavailable [phone] Encounter Details Date Type Department Care Team (Late st Contact Info) Description 10/14/2021 Transcribed Document [facility] [place] [address] [place] [address] ProviderJailyn MD [address] [place] [address] Social History Tobacco Use Types [...] often do you attend chur ch or amish services? Never 07/08/2022 Do you belong to any clubs o r organizations such as shinto groups, unions, fraternal or athletic groups, or [...] Date Ata rded Speak language other than Northern Irish at home Not on file 05/13/2023 Want [...] Historical Provider, - 10/14/2021 6:20 PM CDT ED Triage Entered On: 10/14/2021 18:33 EDT Performed On: 10/14/2021 18:31 EDT by UGO FAN RN ED Triage Across the Room Chief Complaint : RLE numbness x1 week. Triage Date/Time : 10/14/2021 18:31 EDT UGO FAN RN - 10/14/2021 18:31 EDT DCP GENERIC CODE Tracking Acuity : 3 - Urgent Tracking Group : [facility] ED [place] UGO FAN RN - 10/14/2021 18:31 EDT Mode of Arrival : Wheelchair Transported to ED by : Private vehicle To Room Via : Wheelchair Accompanied By : Spouse ED Vital Signs : Document Height & Weight : Document ED Allergies : Document ED Reason for Visit : Document Tetanus Immunization : Greater than 5 years Cafeteria Manager Needed : No UGO FAN RN - [...] mmHg Oxygen Saturation : 97 % UGO AFN RN - 10/14/2021 18:31 EDT Allergy (As [...] EDT) Problems(Active) Mitral valve prolapse (SNOMED CT :8781602407 ) Name of Problem: Mitral valve prolapse ; Recorder: Miranda Flor RN; Confirmation: Confirmed ; Classification: Patient Stated ; Code: [id number] ; Contributor System: [employer] ; Last Updated: 11/28/2017 15:14 EDT ; Life Cycle Date: 11/28/2017 ; Life Cycle Status: Active ; Vocabulary: SNOMED CT Diagnoses(Active) Paresthesia Date: 10/14/2021 ; Diagnosis Type: Reason For Visit ; Confirmation: Complaint of ; Clinical Dx: Paresthesia ; Classification: Medical ; Clinical Service: Emergency medicine ; Code: PNED ; Probability: 0 ; Diagnosis Code: [id number] ED Height and Weight Height Source : Stated Height Entry Format : [place] Height, Feet : 5 ft(Converted to: 152 cm, 60 Inch) Height, Inches : 6 Inch(Converted to: 0 ft 6 Inch, 15.24 cm) Clinical Height : 167.64 cm Weight Source, ED : Critical estimated dosing weight Weight Entry Format : [place] Weight, Pounds : 180 lb Clinical Dosing Weight : 81.82 kg Body Surface Area (BSA) : 1.91 m2 Body Mass Index : 29.1 kg/m2 (HI) [place] Body Weight (IBW) : 62.88 kg UGO FAN RN - 10/14/2021 18:31 EDT Patient/Family Cafeteria Manager Communication Primary Language : Northern Irish UGO FAN, RN - 10/14/2021 18:31 EDT documented in this encounter Plan of Treatment Not on file documented as of this encounter Visit Diagnoses Not on filedocumented in this encounter Care Teams Telesales Specialist Relationship Specialty Start Date End Date Eladio Lomas MD [address] [facility] [address] [address] Medical Oncologist Hematology and Oncology 07/08/22 Breanna Crow, PACecilia [address] [address] Physician Curing Oven Tender Oncology 07/08/22 documented as of this encounter
--- OUTSIDE RECORDS SUMMARY | 2024-11-12 09:48 | XMS_ITS | Encounter Summary ---
Author Organization [employer] ([place], [place], [place], [place]) Address [address] [place] [address] Care Team Providers Care Paraeducator Name Role Phone Eladio Lomas MD Unavailable Breanna Crow PA-C Unavailable [phone] Encounter Details Date Type Department Care Team (Late st Contact Info) Description 10/15/2021 Transcribed Document [facility] [place] [address] [place] [address] ProviderJailyn MD [address] [place] [address] Social History Tobacco Use Types [...] often do you attend chur ch or baptist services? Never 07/08/2022 Do you belong to any clubs o r organizations such as mandaeism groups, unions, fraternal or athletic groups, or [...] Date Ata rded Speak language other than Irish at home Not on file 05/13/2023 [...] Conversion Note - Historical Provider, - 10/15/2021 3:15 PM CDT Evaluation, Physical Therapy Entered On: 10/17/2021 10:35 EDT Performed On: 10/17/2021 10:13 EDT by SOFÍA CROFT PHYSICAL THERAPIST NON-EXEMPT General Information, PT Visit Type, PT : Initial evaluation Patient Orders : Order Date Order Ordering MD 10/15/2021 05:37 PT Evaluation and Treatment Ordered [...] 71 y/o male who was admitted to [facility] on 10/15/2021 with RLE weakness and paresthesia. [...] ROM : WFL Left UE Strength : [facility] SOFÍA CROFT PHYSICAL THERAPIST NON-EXEMPT - 10/17/2021 10:13 EDT Lower Extremity RLE Active ROM : WFL Right LE Strength : Impaired LLE Active ROM : WFL Left LE Strength : SOFÍA DENNIS PHYSICAL THERAPIST NON-EXEMPT - 10/17/2021 10:13 EDT Right Lower Extremity MMT Hip Flexion (0-125) : 5/normal Hip Abduction (0-45) : 5/normal Hip Adduction (0-20) : 5/normal Knee Flexion (0-140) : 5/normal Knee Extension (0-0) : 5/normal Ankle Dorsiflexion (0-20) : 3/fair Ankle Plantarflexion (0-45) : 5/normal Other Location : 1/trace (Comment: Great toe extension [SOFÍA CROFT, PHYSICAL [...] understanding (Comment: Use of gait belt [SOFÍA CROFT, PHYSICAL THERAPIST NON-EXEMPT - 10/17/2021 [...] PHYSICAL THERAPIST NON-EXEMPT - 10/17/2021 10:13 EDT Beam House Inspector Goals Transfer LTG Grid Goal #1 Destination [...] Assist : Assist, minimal (Comment: CGA [SOFÍA CROFT PHYSICAL THERAPIST NON-EXEMPT - 10/17/2021 10:13 EDT] ) Date to Meet : 10/31/2021 EDT Goal Status : Intial Goal Comment : AFO (R) SOFÍA CROFT PHYSICAL THERAPIST NON-EXEMPT - 10/17/2021 10:13 EDT Stairs LTG Grid Goal #1 Number of Steps : 2 Handrail(s) : No handrails Assist : Assist, minimal (Comment: IVAN [SOFÍA CROFT PHYSICAL THERAPIST NON-EXEMPT - 10/17/2021 10:13 EDT] ) Date to Meet : 10/31/2021 EDT Goal Status : Intial Goal Comment : AFO (R) SOFÍA CROFT PHYSICAL THERAPIST NON-EXEMPT - 10/17/2021 [...] PT Eval Low Complexity : 1 SOFÍA CROFT, PHYSICAL THERAPIST NON-EXEMPT - 10/17/2021 10:13 EDT documented in this encounter Plan of Treatment Not on file documented as of this encounter Visit Diagnoses Not on filedocumented in this encounter Care Teams Paraeducator Relationship Specialty Start Date End Date Eladio Lomas MD [address] [facility] [address] [place] [address] Medical Oncologist Hematology and Oncology 07/08/22 Breanna Crow, PACecilia [address] [facility] [address] [place] [address] Physician After School Program Teacher Oncology 07/08/22 documented as of this encounter
--- OUTSIDE RECORDS SUMMARY | 2024-11-12 09:48 | XMS_ITS | Encounter Summary ---
Author Organization [employer] ([place], [place], [place], [place]) Address [address] [place] [address] Care Team Providers Care Last Trimmer Name Role Phone Eladio Lomas MD Unavailable Breanna Crow PA-C Unavailable [phone] Encounter Details Date Type Department Care Team (Late st Contact Info) Description 10/15/[address] [facility] [place] Family Medicine [address] [place] [address] ProviderJailyn MD [address] [place] [address] Social History Tobacco Use Types [...] often do you attend chur ch or anglican services? Never 07/08/2022 Do you belong to [...] Date Ata rded Speak language other than Brazilian at home Not on file 05/13/2023 Want [...] Conversion Note - Historical Provider, - 10/15/2021 9:30 AM CDT UM Authorization Entered On: 10/15/2021 9:31 EDT Performed On: 10/15/2021 9:30 EDT by Natalie Lauren Rn-Utilization Review Primary Insurance Authorization Authorization and Policy Numbers : Insurance 1 Health Plan: [employer] PPO Policy Number: [id number] Authorization Number: Insurance Primary Name : [employer] PPO [id number] Authorization Status-Primary : Awaiting callback Reference Number-Primary : [id number] Authorized Service Begin Date-Primary : 10/15/2021 EDT Authorization Comments-Primary : Clinicals faxed via [facility] Historical Authorization Comments-Primary : Comment 1: [employer] PPO auth pending per Star note. (JUANITA HUGO, SHARYN-Utilization Review 10/15/2021 09:18) Natalie aLuren Rn-Utilization Review - 10/15/2021 9:30 EDT Electronically signed by Huy [facility] Conversion Industrial Energy Engineer Cerner at 08/17/2022 5:57 PM CDT documented in this encounter Plan of Treatment Not on file documented as of this encounter Visit Diagnoses Not on filedocumented in this encounter Care Teams Last Trimmer Relationship Specialty Start Date End Date Eladio Lomas MD [address] [facility] [address] [place] [address] Medical Oncologist Hematology and Oncology 07/08/22 Breanna Crow PA-C [address] [place] [address] [address] [place] [address] Physician Marketing Automation Analyst Oncology 07/08/22 documented as of this encounter
--- OUTSIDE RECORDS SUMMARY | 2024-11-12 09:48 | XMS_ITS | Encounter Summary ---
Author Organization [employer] ([place], [place], [place], [place]) Address [address] [place] [address] Care Team Providers Care Ceramic Coater Name Role Phone Eladio Lomas MD Unavailable Breanna Crow PA-C Unavailable [phone] Encounter Details Date Type Department Care Team (Late st Contact Info) Description 10/15/2021 Transcribed Document [facility] [place] Family Medicine [address] [place] [address] ProviderJailyn MD [address] [place] [address] Social History Tobacco Use Types [...] often do you attend chur ch or rastafari services? Never 07/08/2022 Do you belong to any clubs o r organizations such as quaker groups, unions, fraternal or athletic groups, or [...] Date Ata rded Speak language other than Marshallese at home Not on file 05/13/2023 Want [...] Conversion Note - Historical Provider, - 10/15/2021 5:40 AM CDT Patient: SARAH [...] - Medical Enoxaparin 40 mg, SubCutaneous, Inj, [id number], Routine, Start 10/15/21 7:00:00 EDT, 10/15/21 6:07:00 [...] ALYC # 4 K/uL 10/15/2021 00:19 EDT [place] Percent Man 19 % (High) 10/15/2021 00:19 EDT RBC Morphology Normal 10/15/2021 00:[address] Estimate Adequate 10/15/2021 00:19 EDT Sed Rate Auto 5 mm/Hr 10/15/2021 00:19 EDT Slide Review Add Diff 10/15/2021 00:19 EDT D Dimer Quant 1039 ng/mL (High) 10/15/2021 00:19 EDT Additional Documentation Code Status Start: 10/15/21 5:38:00 EDT, DNR Full Treatment-No Intubation/No ACLS, Continuous Order Electronically signed by Interface, [facility] Conversion Lvn Cerner at 08/17/2022 5:58 PM CDT documented in this encounter Plan of Treatment Not on file documented as of this encounter Visit Diagnoses Not on filedocumented in this encounter Care Teams Ceramic Coater Relationship Specialty Start Date End Date Eladio Lomas MD [address] [facility] [address] [place] [address] Medical Oncologist Hematology and Oncology 07/08/22 Breanna Crow PARebelC [address] [facility] [address] [place] [address] Physician Forest Resources Professor Oncology 07/08/22 documented as of this encounter
--- OUTSIDE RECORDS SUMMARY | 2024-11-12 09:48 | XMS_ITS | Encounter Summary ---
Author Organization [employer] ([place], [place], [place], [place]) Address [address] [place] [address] Care Team Providers Care Interceptor Operator Name Role Phone Eladio Lomas MD Unavailable Breanna Crow PA-C Unavailable [phone] Encounter Details Date Type Department Care Team (Late st Contact Info) Description 01/01/2022 Transcribed Document [facility] [place] Family Medicine [address] [place] [address] ProviderJailyn MD [address] [place] [address] Social History Tobacco Use Types [...] often do you attend chur ch or protestant services? Never 07/08/2022 Do you belong to any clubs o r organizations such as faith groups, unions, fraternal or athletic groups, or [...] 01/01/2022 11:05 AM CDT [facility] Main OR PACU Summary Primary Physician: GARCIA WORKMAN MD-ORT Finalized Date/Time: 01/01/22 12:45:16 Pt. Name: SARAH HU /Sex: 1950 Male Med Rec #: [id number] Physician: GARCIA WORKMAN MD-ORT Financial #: [id number] Pt. Type: O Room/Bed: [facility] Admit/Disch: 01/01/22 09:26:00 - Institution: E Main OR PACU Case Times Entry 1 In PACU I 01/01/22 11:50:00 Ready for PACU 01/01/22 12:38:00 Discharge Discharge from PACU 01/01/22 12:38:00 I Last Modified By: Lashay Liu RN 01/01/22 12:45:05 [facility] OR PACU Case Times Audit 01/01/22 12:45:05 Talent Management Manager: SXPOWERS Modifier: SXPOWERS <+> 1 Ready for PACU Discharge <+> 1 Discharge from PACU I Finalized By: Lashay Liu, RN Document Signatures Signed By: Lashay Liu RN 01/01/22 12:45 Electronically signed by Huy [facility] Conversion Cylinder Loader Cerner at 08/17/2022 5:57 PM CDT documented in this encounter Plan of Treatment Not on file documented as of this encounter Visit Diagnoses Not on filedocumented in this encounter Care Teams Interceptor Operator Relationship Specialty Start Date End Date Eladio Lomas MD [address] [facility] [address] [address] Medical Oncologist Hematology and Oncology 07/08/22 Breanna Crow PA-C [address] [facility] [address] [place] [address] Physician Yolk Spray Drier Oncology 07/08/22 documented as of this encounter
--- OUTSIDE RECORDS SUMMARY | 2024-11-12 09:48 | XMS_ITS | Encounter Summary ---
Author Organization [employer] ([place], [place], [place], [place]) Address [address] [place] [address] Care Team Providers Care Assembler Crimper Name Role Phone Eladio Lomas MD Unavailable Breanna Crow PA-C Unavailable [phone] Encounter Details Date Type Department Care Team (Late st Contact Info) Description 10/15/2021 Transcribed Document [facility] [place] [address] [place] [address] ProviderJailyn MD [address] [place] [address] Social History Tobacco Use Types [...] often do you attend chur ch or quaker services? Never 07/08/2022 Do you belong to any clubs o r organizations such as spiritism groups, unions, fraternal or athletic groups, or [...] Date Ata rded Speak language other than Nauruan at home Not on file 05/13/2023 Want [...] Conversion Note - Historical Provider, - 10/15/2021 9:29 AM CDT UM Authorization Entered On: 10/15/2021 9:29 EDT Performed On: 10/15/2021 9:29 EDT by Natalie Lauren Rn-Utilization Review Primary Insurance Authorization Authorization and Policy Numbers : Insurance 1 Health Plan: [employer] PPO Policy Number: [id number] Authorization Number: Insurance Primary Name : [employer] PPO [id number] Authorization Status-Primary : Pending Reference Number-Primary : [id number] Authorized Service Begin Date-Primary : 10/15/2021 EDT Historical Authorization Comments-Primary : Comment 1: [employer] PPO auth pending per Star note. (JUANITA HUGO, SHARYN-Utilization Review 10/15/2021 09:18) Natalie Lauren Rn-Utilization Review - 10/15/2021 9:29 EDT documented in this encounter Plan of Treatment Not on file documented as of this encounter Visit Diagnoses Not on filedocumented in this encounter Care Teams Assembler Crimper Relationship Specialty Start Date End Date Eladio Lomas MD [address] [facility] [address] [address] Medical Oncologist Hematology and Oncology 07/08/22 Breanna Crow, PARebelC [address] [place] [address] [address] [place] [address] Physician Inventory Associate Oncology 07/08/22 documented as of this encounter
--- OUTSIDE RECORDS SUMMARY | 2024-11-12 09:48 | XMS_ITS | Encounter Summary ---
Author Organization [employer] ([place], [place], [place], [place]) Address [address] [place] [address] Care Team Providers Care Spinner Hand Name Role Phone Eladio Lomas MD Unavailable Breanna Crow PA-C Unavailable [phone] Encounter Details Date Type Department Care Team (Late st Contact Info) Description 10/15/2021 Transcribed Document [facility] [place] [address] [place] [address] ProviderJailyn MD [address] [place] [address] Social History Tobacco Use Types [...] any clubs o r organizations such as christian groups, unions, fraternal or athletic groups, or [...] Date Ata rded Speak language other than Ivorian at home Not on file 05/13/2023 Want [...] Conversion Note - Historical Provider, - 10/15/2021 5:00 AM CDT Chart Check [...] on filedocumented in this encounter Care Teams Spinner Hand Relationship Specialty Start Date End Date Eladio Lomas MD 1210 [facility] [address] [address] Medical Oncologist Hematology and Oncology 07/08/22 Breanna Crow, PA-C [address] [facility] [address] [place] [address] Physician Maintenance Equipment Operator Oncology 07/08/22 documented as of this encounter
--- OUTSIDE RECORDS SUMMARY | 2024-11-12 09:48 | XMS_ITS | Encounter Summary ---
Author Organization [employer] ([place], [place], [place], [place]) Address [address] [place] [address] Care Team Providers Care Dock Manager Name Role Phone Eladio Lomas MD Unavailable Breanna Crow PA-C Unavailable [phone] Encounter Details Date Type Department Care Team (Late st Contact Info) Description 01/01/2022 Transcribed Document [facility] [place] Family Medicine [address] [place] [address] ProviderJailyn MD [address] [place] [address] Social History Tobacco Use Types [...] often do you attend chur ch or mu-ism services? Never 07/08/2022 Do you belong to [...] Date Ata rded Speak language other than Emirati at home Not on file 05/13/2023 Want [...] Conversion Note - Historical Provider, - 01/01/2022 1:04 PM CDT Patient Education [...] these instructions at home: Medicines ??? Take bckl-djn-mgtlkjz and prescription medicines as told by your [...] keep your urine pale yellow. ? Take krhr-rof-qigqfzs or prescription medicines. ? Eat foods that [...] and water are not available, use hand complaint investigations officer. ? Change your dressing as told by [...] safe to drive. General instructions ??? Take czwn-lhg-eqcculv and prescription medicines only as told by [...] provider. Document Revised: 08/06/2020 Document Reviewed: 08/06/2020 [employer] Patient Education ? 2021 [employer] Laminectomy, Care After This sheet gives [...] these instructions at home: Medicines ??? Take xdjk-tyu-pibvnqd and prescription medicines only as told by [...] keep your urine pale yellow. ? Take rfmn-qdr-wwkrosc or prescription medicines. ? Eat foods that [...] and water are not available, use hand complaint investigations officer. ? Change your dressing as told by [...] provider. Document Revised: 11/12/2019 Document Reviewed: 11/12/2019 [employer] Patient Education ? 2021 [employer]. documented in this encounter Plan of Treatment Not on file documented as of this encounter Visit Diagnoses Not on filedocumented in this encounter Care Teams Dock Manager Relationship Specialty Start Date End Date Eladio Lomas MD 12[address] [facility] [address] [place] [id number] Medical Oncologist Hematology and Oncology 07/08/22 Breanna Crow PA-C [address] [place] [address] Physician Dot Etcher Oncology 07/08/22 documented as of this encounter
--- OUTSIDE RECORDS SUMMARY | 2024-11-12 09:48 | XMS_ITS | Encounter Summary ---
Author Organization [employer] ([place], [place], [place], [place]) Address [address] [place] [address] Care Team Providers Care Brake Lining Finisher Asbestos Name Role Phone Eladio Lomas MD Unavailable Breanna Crow PA-C Unavailable [phone] Encounter Details Date Type Department Care Team (Late st Contact Info) Description 10/15/2021 Transcribed Document [facility] [place] Family Medicine [address] [place] [address] ProviderJailyn MD [address] [place] [address] Social History Tobacco Use Types [...] any clubs o r organizations such as roman catholic groups, unions, fraternal or athletic groups, or [...] Date Ata rded Speak language other than British Virgin Islander at home Not on file 05/13/2023 Want [...] Conversion Note - Historical Provider, - 10/15/2021 4:59 AM CDT Nutrition Assessment Entered On: 10/15/2021 12:56 EDT Performed On: 10/15/2021 15:54 EDT by Barbi Salgado Non Emp Dietitichelly Nutrition Assessment Current Nutrition Regimen Comment : 10/15: automatic consult - MST = 5 (eating poorly d/t decreased appetite, unsure wt loss ). Pt is a 71 yo M admitted w/ RLE numbness x1 wk, had recent chicken pox 2-3 wks ago. Neurology consulted, s/p MRI. RD spoke w/ pt who endorsed a poor appetite PASTA PRESS OPERATOR, 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 [...] Meds: benadryl, lovenox, Pepcid, KCl GI: LBM PASTA PRESS OPERATOR, +BS Skin: no skin breakdown noted, healing chicken pox lesions Diet: Cardiac diet Intakes: 100% (x1 meal recorded) Allergies: Shrimp Ht: 66 in Wt: 180 vs 131# *varying wts since admit EMR Wt hx: 151# (11/28/17) BMI: 29.1 vs 21.2 IBW/%IBW: 142#/92-127% Barbi Salgado Non Emp Dietitian - 10/15/2021 15:53 EDT Nutrition Assessment Reason : Automatic referral Barbi Salgado Non Emp Dietapril - 10/15/2021 15:54 EDT Nutrition Diagnoses Energy Balance : Predicted suboptimal energy intake Energy Balance Related to : decreased appetitie PASTA PRESS OPERATOR Energy Balance as Evidenced by : 50% intake compared to normal per pt recall Energy Balance Status : Active Barbi Salgado Non Emp Dietitian - 10/15/2021 15:53 EDT Nutrition Interventions Meals and Snacks : Fat-modified diet, Sodium modified diet Barbi Salgado Non Emp Dietitian - 10/15/2021 15:53 EDT Monitoring/Evaluation Energy Intake : Total energy intake Food Intake : Amount of food Protein Intake : Total protein Weight Status : Weight Maintanence Gastrointestinal Function : Bowel Function Barbi Salgado Non Emp Dietitian - 10/15/2021 15:53 EDT Nutrition Recommendations Dietitian [...] on filedocumented in this encounter Care Teams Brake Lining Finisher Asbestos Relationship Specialty Start Date End Date Eladio Lomas MD [address] [place] [address] Medical Oncologist Hematology and Oncology 07/08/22 Breanna Crow, PA-C [address] [place] [address] [place] [address] Physician Client Relations Representative Oncology 07/08/22 documented as of this encounter
--- OUTSIDE RECORDS SUMMARY | 2024-11-12 09:48 | XMS_ITS | Encounter Summary ---
Author Organization [employer] ([place], [place], [place], [place]) Address [address] [place] [address] Care Team Providers Care Director Of Enterprise Architecture Name Role Phone Eladio Lomas MD Unavailable Breanna Crow PA-C Unavailable [phone] Encounter Details Date Type Department Care Team (Late st Contact Info) Description 10/14/2021 Transcribed Document [facility] [place] Family Medicine [address] [place] [address] ProviderJailyn MD [address] [place] [address] Social History Tobacco Use Types [...] any clubs o r organizations such as bahai groups, unions, fraternal or athletic groups, or [...] Date Ata rded Speak language other than Colombian at home Not on file 05/13/2023 Want [...] Historical Provider, - 10/14/2021 6:20 PM CDT [place] Suicide Severity Rating Scale (C-SSRS) Entered On: 10/14/2021 18:34 EDT Performed On: 10/14/2021 18:33 EDT by UGO FAN, RN [place] Suicide Severity Rating Scale (C-SSRS) CSSRS Past Month Wish to be : No CSSRS Past Month Suicidal Thoughts : No CSSRS Lifetime Suicide Behavior : No Suicide Severity Rating Score : 0 Suicide Severity Rating : No Additional Care Required at this time Thoughts of Harming/Killing Others : No UGO FAN RN - 10/14/2021 18:33 EDT Electronically signed by [facility] Conversion Commutator Repairer Cerner at 08/17/2022 5:56 PM CDT documented in this encounter Plan of Treatment Not on file documented as of this encounter Visit Diagnoses Not on filedocumented in this encounter Care Teams Director Of Enterprise Architecture Relationship Specialty Start Date End Date Eladio Lomas MD 1210 [facility] [address] [address] Medical Oncologist Hematology and Oncology 07/08/22 Breanan Crow, PARebelC [address] [place] [address] Physician Seo Team Lead Oncology 07/08/22 documented as of this encounter
--- OUTSIDE RECORDS SUMMARY | 2024-11-12 09:48 | XMS_ITS | Encounter Summary ---
Author Organization [employer] ([place], [place], [place], [place]) Address [address] [place] [address] Care Team Providers Care Graphic Design Teacher Name Role Phone Eladio Lomas MD Unavailable Breanna Crow PA-C Unavailable [phone] Encounter Details Date Type Department Care Team (Late st Contact Info) Description 10/15/2021 Transcribed Document [facility] [place] Family Medicine [address] [place] [address] ProviderJailyn MD [address] [place] [address] Social History Tobacco Use Types [...] often do you attend chur ch or alevism services? Never 07/08/2022 Do you belong to any clubs o r organizations such as protestant groups, unions, fraternal or athletic groups, or [...] Date Ata rded Speak language other than Slovenian at home Not on file 05/13/2023 Want [...] Conversion Note - Historical Provider, - 10/15/2021 3:12 PM CDT Patient: SARAH [...] At risk for sleep apnea / IMO [id number] / Confirmed, Active Problems (2) At risk for sleep apnea Mitral valve prolapse Objective VS/Measurements Measurements from flowsheet : Measurements 10/15/2021 4:48 EDT Height Source Stated Height Entry Format [place] Height/Length, DANISH (ft) 5 ft Height/Length DANISH 6 Inch CLINICALHEIGHT 167.64 cm [place] Body Weight 63 kg Weight Source Bed scale Weight Entry Format [place] Weight Slovenian lb 131 lb Weight Slovenian oz 5 oz CLINICALWEIGHT 59.69 kg Body Surface Area (BSA) 1.67 m2 Body Mass Index 21.2 kg/m2 10/15/2021 3:09 EDT Height Source Not Done: Task Duplication (Not Done) Height Entry Format Not Done: Task Duplication (Not Done) Weight Source Not Done: Task Duplication (Not Done) 10/14/2021 18:31 EDT Height Source Stated Height Entry Format [place] Height/Length, DANISH (ft) 5 ft Height/Length DANISH 6 Inch CLINICALHEIGHT 167.64 cm [place] Body Weight 62.88 kg Weight Source, ED Critical estimated dosing weight Weight Entry Format [place] Weight Slovenian lb 180 lb CLINICALWEIGHT 81.82 kg Body Surface Area (BSA) 1.91 m2 Body Mass Index 29.1 kg/m2 HI Electronically signed by Rock Son Conversion International Trade Compliance Manager Cerner at 08/17/2022 6:12 PM CDT documented in this encounter Plan of Treatment Not on file documented as of this encounter Visit Diagnoses Not on filedocumented in this encounter Care Teams Graphic Design Teacher Relationship Specialty Start Date End Date Eladio Lomas MD 12[address] [facility] [address] [place] [address] Medical Oncologist Hematology and Oncology 07/08/22 Breanna Crow, PARebelC [address] [facility] [address] [place] [address] Physician Manager Urology Oncology 07/08/22 documented as of this encounter
--- OUTSIDE RECORDS SUMMARY | 2024-11-12 09:48 | XMS_ITS | Encounter Summary ---
Author Organization [employer] ([place], [place], [place], [place]) Address [address] [place] [address] Care Team Providers Care Manufacturing Machine Operator Name Role Phone Eladio Lomas MD Unavailable Breanna Crow PA-C Unavailable [phone] Encounter Details Date Type Department Care Team (Late st Contact Info) Description 10/15/2021 Transcribed Document [facility] [place] [address] [place] [address] ProviderJailyn MD [address] [place] [address] Social History Tobacco Use Types [...] often do you attend chur ch or spiritism services? Never 07/08/2022 Do you belong to [...] Date Ata rded Speak language other than Liberian at home Not on file 05/13/2023 Want [...] Provider, - 10/15/2021 3:15 PM CDT Evaluation, Occupational Therapy Entered On: 10/17/2021 12:26 EDT Performed On: 10/17/2021 9:07 EDT by CRYSTAL ROBERTS OTR/L General Information, OT Visit Type, OT : Initial evaluation Patient Orders : Order Date Order Ordering MD 10/15/2021 05:37 OT Evaluation and Treatment Ordered [...] with HR on (R) side going up ALEJANDRA PAYAL ROJAS/Mikal - 10/17/2021 12:09 EDT Prior LOF Bathing, OT : Independent Prior LOF Bed Mobility : Independent Prior LOF Upper Body Dressing, OT : Independent Prior LOF Lower Body Dressing, OT : Assist needed Prior LOF Toileting : Independent Prior LOF Transfer : Assist needed (Comment: supervision [CRYSTAL ROBERTS OTR/Mikal - 10/17/2021 12:09 EDT] ) Prior LOF Grooming, OT : Independent Prior LOF for IADLs, OT : Independent CRYSTAL ROBERTS OTR/Mikal - 10/17/2021 12:09 EDT Prior LOF Assist with ADL Comment : has been needing assistance lately, since experiencing weakness in his R leg CRYSTAL ROBERTS OTR/Mikal - 10/17/2021 12:09 EDT Upper Extremity Upper Extremity Dominance : Right Right UE Active ROM : WFL Right UE Strength : WFL Left UE Active ROM : WFL Left UE Strength : WFL CRYSTAL ROBERTS OTR/Mikal - 10/17/2021 12:09 EDT Self Care/Home Management, OT Lower Body Dressing Assist Level, OT : Assist, minimal ALEJANDRA PAYAL ROJAS/Mikal - 10/17/2021 12:09 EDT Functional Mobility Mobility Grid Supine to Sit : Supervision/set-up Sit to Stand : Rehab Minimal assistance Bed to Chair : Supervision/set-up (Comment: CGA [CRYSTAL ROBERTS OTR/Mikal - 10/17/2021 12:09 EDT] ) CRYSTAL ROBERTS OTR/Mikal - 10/17/2021 12:09 EDT Cognition Assessment, OT Orientation : Oriented x 4 CRYSTAL ROBERTS OTR/Mikal - 10/17/2021 12:09 EDT Indication Assessment, OT Occupational Therapy Indicated : Yes Problem List, OT : Impaired, activities daily living, Impaired functional mobility CRYSTAL ROBERTS OTR/Mikal - 10/17/2021 12:09 EDT Plan of Care, OT OT Tx Plan/Goals Established w Patient : Yes OT Frequency Rehab : Four days per week OT Duration Rehab : Fourteen days OT Treatments Planned : Activities of daily living, Functional mobility training, Therapeutic activities, Therapeutic exercises CRYSTAL ROBERTS OTR/Mikal - 10/17/2021 12:09 EDT Logistics Manager Goals, OT Other LTG Grid Goal #1 Goal #2 Goal : Client will complete transfers for ADLs with supervision Client will complete LB ADLs with set-up A Date to Meet : 10/31/2021 EDT 10/31/2021 EDT Goal Status : Initial goal Initial goal CRYSTAL ROBERTS DANIELMerced/Mikal - 10/17/2021 12:09 EDT CRYSTAL ROBERTS DANIELMerced/Mikal - 10/17/2021 12:09 EDT Treatment Note Additional Objective Information : Client completed transfer from supine to sit with supervision, needed some cues to correct posture/position. While on edge of bed, able to put on sock, AFO and shoe, with verbal cues and tdzn-qt-kyqs instructions on how to perform, due to [...] the text rendition version of the form. [facility] OT Charges OT Selfcare/Hm Mgmt Ea 15 Min : 2 OT Eval Low Complexity : 1 CRYSTAL ROBERTS PAYAL/L - 10/17/2021 12:09 EDT documented in this encounter Plan of Treatment Not on file documented as of this encounter Visit Diagnoses Not on filedocumented in this encounter Care Teams Manufacturing Machine Operator Relationship Specialty Start Date End Date Eladio Lomas MD 12[address] [facility] [address] [place] [address] Medical Oncologist Hematology and Oncology 07/08/22 Breanna Crow PA-C [address] [place], [place] [address] Physician Printing Machine Operator Tape Rules Oncology 07/08/22 documented as of this encounter
--- OUTSIDE RECORDS SUMMARY | 2024-11-12 09:48 | XMS_ITS | Encounter Summary ---
Author Organization [employer] ([place], [place], [place], [place]) Address [address] [place] [address] Care Team Providers Care Mechanical Lead Name Role Phone Eladio Lomas MD Unavailable Breanna Crow PA-C Unavailable [phone] Encounter Details Date Type Department Care Team (Late st Contact Info) Description 01/01/2022 Transcribed Document [facility] [place] Family Medicine [address] [place] [address] ProviderJailyn MD [address] [place] [address] Social History Tobacco Use Types [...] any clubs o r organizations such as restorationism groups, unions, fraternal or athletic groups, or [...] Date Ata rded Speak language other than Botswanan at home Not on file 05/13/2023 Want [...] Conversion Note - Historical Provider, - 01/01/2022 1:12 [place] [address] SARAH HU :1950 Visit Time:01/01/2022 What to [...] for follow-up date and appointment time Activity: [place] dressing. Do not remove. May shower with [...] MD-ORT When 01/14/2022 11:00 AM EDT Where: [address] [place] [address] [address] [place] [address]- Medications What How Much When Instructions Next Dose acetaminophen-oxyCODONE (Percocet 7.5/ 325 oral tablet) 1 Tablet(s) Oral Three Times A Day as needed for for pain Pickup at [facility] acetaminophen (Tylenol 325 mg oral tablet) 2 Tablet(s) Oral Every 4 Hours as needed for Pain (Mild 1-3) ergocalciferol (ergocalciferol 50 mcg (2000 intl units) oral capsule) 1 Capsule(s) Oral Every Day Duration: 14 Day(s) multivitamin (Multiple Vitamins oral tablet) 1 Tablet(s) Oral Every Day valACYclovir (Valtrex 1 g oral tablet) 1 Tablet(s) Oral Every Day Pharmacy Information [facility]: [address] [place] [address] [phone] Take your medications faithfully. Do NOT skip [...] these instructions at home: Medicines ??? Take qwhp-xjt-ftynmbk and prescription medicines as told by your [...] keep your urine pale yellow. ? Take ioae-wma-piabgul or prescription medicines. ? Eat foods that [...] and water are not available, use hand stock shaper. ? Change your dressing as told by [...] safe to drive. General instructions ??? Take gfry-vip-lzvxxlt and prescription medicines only as told by [...] provider. Document Revised: 08/06/2020 Document Reviewed: 08/06/2020 [employer] Patient Education ?? 2021 [employer] Laminectomy, Care After This sheet gives [...] these instructions at home: Medicines ??? Take vhdp-nro-lxbvtqh and prescription medicines only as told by [...] keep your urine pale yellow. ? Take nbki-hgh-tsazeqq or prescription medicines. ? Eat foods that [...] and water are not available, use hand stock shaper. ? Change your dressing as told by [...] provider. Document Revised: 11/12/2019 Document Reviewed: 11/12/2019 [employer] Patient Education ?? 2021 [employer]. Emergency Awareness and Preventative Care STROKE is [...] Assistance with quitting is available by contacting 9-929-NLLH-NOW. This is a free resource providing counseling, [...] was given the opportunity to ask questions. Patient/Chief Hospital Administrator Name: Patient/Chief Hospital Administrator Signature: Relationship to Patient: Clinician/Hospital Chief Hospital Administrator Signature: Date: Electronically signed by Rock Son Conversion Personal Injury Litigation Paralegal Cerner at 08/17/2022 6:10 PM CDT documented in this encounter Plan of Treatment Not on file documented as of this encounter Visit Diagnoses Not on filedocumented in this encounter Care Teams Mechanical Lead Relationship Specialty Start Date End Date Eladio Lomas MD 12[address] [facility] [address] [place], [place] [id number] Medical Oncologist Hematology and Oncology 07/08/22 Breanna Crow PARebelC [address] [facility] [address] [place] [address] Physician Tool Supervisor Oncology 07/08/22 documented as of this encounter
--- OUTSIDE RECORDS SUMMARY | 2024-11-12 09:48 | XMS_ITS | Encounter Summary ---
Author Organization [employer] ([place], [place], [place], [place]) Address [address] [place] [address] Care Team Providers Care Marble Setter Name Role Phone Eladio Lomas MD Unavailable Breanna Crow PA-C Unavailable [phone] Encounter Details Date Type Department Care Team (Late st Contact Info) Description 10/15/2021 Transcribed Document [facility] [place] [address] [place] [address] ProviderJailyn MD [address] [place] [address] Social History Tobacco Use Types [...] any clubs o r organizations such as temple groups, unions, fraternal or athletic groups, or [...] Date Ata rded Speak language other than Iraqi at home Not on file 05/13/2023 Want [...] Conversion Note - Historical Provider, - 10/15/2021 4:49 AM CDT ED Discharge [...] Care provider Mode Of Departure : Stretcher FLORA SOUZA RN - 10/15/2021 4:49 EDT Electronically signed by [facility] Conversion Heel Shaper Cerner at 08/17/2022 6:13 PM CDT documented in this encounter Plan of Treatment Not on file documented as of this encounter Visit Diagnoses Not on filedocumented in this encounter Care Teams Marble Setter Relationship Specialty Start Date End Date Eladio Lomas MD [address] [address] Medical Oncologist Hematology and Oncology 07/08/22 Breanna Crow PACecilia [address] [facility] [address] [place] [address] Physician Freedom Of Information Officer Oncology 07/08/22 documented as of this encounter
--- OUTSIDE RECORDS SUMMARY | 2024-11-12 09:48 | XMS_ITS | Encounter Summary ---
Author Organization [employer] ([place], [place], [place], [place]) Address [address] [place] [address] Care Team Providers Care Couture Alterations Dressmaker Name Role Phone Eladio Lomas MD Unavailable Breanna Crow PA-C Unavailable [phone] Encounter Details Date Type Department Care Team (Late st Contact Info) Description 10/15/2021 Transcribed Document [facility] [place] [address] [place] [address] ProviderJailyn MD [address] [place] [address] Social History Tobacco Use Types [...] often do you attend chur ch or mandaeism services? Never 07/08/2022 Do you belong to any clubs o r organizations such as congregational groups, unions, fraternal or athletic groups, or [...] Date Ata rded Speak language other than Pakistani at home Not on file 05/13/2023 Want [...] Conversion Note - Historical Provider, - 10/15/2021 8:35 AM CDT Attempt to [...] 10/15/2021 12:32 EDT Electronically signed by Huy [facility] Conversion Fueler Cerner at 08/17/2022 6:13 PM CDT documented in this encounter Plan of Treatment Not on file documented as of this encounter Visit Diagnoses Not on filedocumented in this encounter Care Teams Couture Alterations Dressmaker Relationship Specialty Start Date End Date Eladio Lomas MD [address] [facility] [address] [place] [address] Medical Oncologist Hematology and Oncology 07/08/22 Breanna Crow PA-C [address] [facility] [address] [place] [address] Physician Photography Intern Oncology 07/08/22 documented as of this encounter
--- OUTSIDE RECORDS SUMMARY | 2024-11-12 09:48 | XMS_ITS | Encounter Summary ---
Author Organization [employer] ([place], [place], [place], [place]) Address [address] [place] [address] Care Team Providers Care Foster Winder Name Role Phone Eladio Lomas MD Unavailable Breanna Crow PA-C Unavailable [phone] Encounter Details Date Type Department Care Team (Late st Contact Info) Description 10/15/2021 Transcribed Document [facility] [place] [address] [place] [address] ProviderJailyn MD [address] [place] [address] Social History Tobacco Use Types [...] any clubs o r organizations such as latter day groups, unions, fraternal or athletic groups, or [...] Date Ata rded Speak language other than Macanese at home Not on file 05/13/2023 Want [...] Conversion Note - Historical Provider, - 10/15/2021 9:28 AM CDT Initial Discharge [...] on filedocumented in this encounter Care Teams Foster Winder Relationship Specialty Start Date End Date Eladio Lomas MD [address] [facility] [address] [place] [address] Medical Oncologist Hematology and Oncology 07/08/22 Breanna Crow PA-C [address] [address] Physician Sample Examiner Oncology 07/08/22 documented as of this encounter
--- OUTSIDE RECORDS SUMMARY | 2024-11-12 09:48 | XMS_ITS | Encounter Summary ---
Author Organization [email or web address] ([place], [place], [place], [place]) Address [address] [place] [address] Care Team Providers Care Printing Machine Mechanic Name Role Phone Eladio Lomas MD Unavailable Breanna Crow PA-C Unavailable [phone] Encounter Details Date Type Department Care Team (Late st Contact Info) Description 10/15/2021 Transcribed Document [facility] [place] [address] [place] [address] ProviderJailyn MD [address] [place] [address] Social History Tobacco Use Types [...] often do you attend chur ch or bahai services? Never 07/08/2022 Do you belong to any clubs o r organizations such as rastafari groups, unions, fraternal or athletic groups, or [...] Conversion Note - Historical Provider, - 10/15/2021 4:48 AM CDT Admission History, Adult Entered On: 10/15/2021 4:59 EDT Performed On: 10/15/2021 4:48 EDT by Tessy Gramajo RN-PATIENT CARE [facility] Advance Directive Patient has Advance Directive *Q : Yes, Advance Directive not with the patient Advance Directive Type : Living will Advance Directive Date : 11/28/2017 EDT Copy Advance Directive Verified/on Chart : No Tessy Gramajo RN-PATIENT CARE [facility] - 10/15/2021 4:48 EDT Anesthesia/Transfusion History Family History of Anesthesia Reaction : No prior transfusion(s) Blood Transfusion Acceptable to Patient : Yes Transfusion History : Prior anesthesia without reaction Family History of Anesthesia Reaction : None Tessy Gramajo RN-PATIENT CARE [facility] - 10/15/2021 4:48 EDT Anticipated Discharge Needs Discharge To, Anticipated : Home Anticipated Discharge Needs at This Time : None Tessy Gramajo RN-PATIENT CARE [facility] - 10/15/2021 4:48 EDT Education Topics, [...] : Verbalizes understanding Tessy Gramajo RN-PATIENT CARE [facility] - 10/15/2021 4:48 EDT Functional Assessment Living Situation : Home Patient Lives With : Spouse Persons Assisting Patient at Home : Spouse Current Daily Living Assistance : None Mobility Assistance Prior to Admission : Independent KOWALSKI Hx Falls Immediate/Within 3 Months : Yes Current Home Treatments : None Home Equipment : None Tessy Gramajo RN-PATIENT CARE [facility] - 10/15/2021 4:48 EDT General Info [...] Obtained From : Patient Primary Language : Tunisian Communication Barrier : None National Dedicated Truck Driver Needed : No Tessy Gramajo RN-PATIENT CARE [facility] - 10/15/2021 4:48 EDT Fall Risk Scales ABCs Fall Injury Risk Identification : None Injury Moderate to High Risk Interventions : Bed alarm on, Chair alarm on, Patient room close to nurses station, Specialty low bed, Supervise toileting as indicated, Wrist band (fall risk) on per policy KOWALSKI Hx Falls Immediate/Within 3 Months : Yes [place] Secondary Diagnosis : No DESMOND Use of Ambulatory Aid : Bed rest/Nurse assist KOWALSKI IV Therapy or IV Access : Yes [place] Gait/Transferring : Impaired [place] Mental Status : Oriented to own ability [place] Fall Risk Score : 65 KOWALSKI Fall Scale Risk Level : 46 or > High Risk [place] Fall Interventions : Adequate lighting, Assistive devices [...] Source : Stated Height Entry Format : Park Height, Feet : 5 ft(Converted to: 152 cm, 60 Inch) Height, Inches : 6 Inch(Converted to: 0 ft 6 Inch, 15.24 cm) Clinical Height : 167.64 cm Weight Source : Bed scale Weight Entry Format : Park Clinical Dosing Weight : 59.69 kg Weight, Pounds : 131 lb Weight, Ounces : 5 oz Body Surface Area (BSA) : 1.67 m2 Body Mass Index : 21.2 kg/m2 [place] Body Weight : 63 kg Tessy Gramajo RN-PATIENT CARE [facility] - 10/15/2021 4:48 EDT Infectious Disease History Does patient have symptoms of COVID-19? : No Tested for COVID19 in the past 14 days : No, Patient stated Does the Patient state known exposure to a COVID-19 positive case in the last 14 days? : No Patient Vaccinated for COVID-19 : Fully vaccinated Tessy Gramajo RN-PATIENT CARE [facility] - 10/15/2021 4:48 EDT Infectious Disease [...] day) : NO Tessy Gramajo RN-PATIENT CARE [facility] - 10/15/2021 4:48 EDT Physical contact outside [place] in the last 30 days : No Hospitalized in Foreign Country : No Infectious Disease History : Chicken pox/Shingles, Measles INF Disease TB Screening Calc : 0 INF Disease Recent Travel Calc : 0 Tessy Gramajo RN-PATIENT CARE [facility] - 10/15/2021 4:48 EDT Tetanus Immunization Status Previous Tetanus Immunizations : No qualifying data available. Tetanus Immunization : Greater than 5 years Tessy Gramajo RN-PATIENT CARE [facility] - 10/15/2021 4:48 EDT Influenza Vaccine Asmt, Adult Previous Vaccines from Immunization Schedule : No qualifying data available. Influenza Immunization, Current Season : Yes Tessy Gramajo RN-PATIENT CARE [facility] - 10/15/2021 4:48 EDT Pneumococcal Vaccine Previous Vaccines from Immunization Schedule : No qualifying data available. Pneumonia Immunization Received : Unknown Pneumococcal Risk Assessment < Age 65 : N/A- Patient 65 years of age or older Pneumococcal Vaccine Contraindications : No contraindications to pneumococcal vaccine Transplant Workup/Recent Transplant : No Order for Pneumococcal Vaccine : Declined Vaccination Tessy Gramajo RN-PATIENT CARE [facility] - 10/15/2021 4:48 EDT Order Details Order Detail : N/A Patient Needs Meds Crushed/Liquid : No Tessy Gramajo RN-PATIENT CARE [facility] - 10/15/2021 4:48 EDT Nutrition History Feeding Ability : Independent Adaptive Feeding Equipment : None Adaptive Feeding Equipment : Regular Eating Poorly Due to Decreased Appetite : Yes Unplanned Weight Loss in Past 3-6 Months : Unsure Unplanned Weight Loss Amount : Unsure Malnutrition Screening Tool Total(mal) : 5 Malnutrition Screening Tool Risk Level : Patient at risk Tessy Gramajo RN-PATIENT CARE [facility] - 10/15/2021 4:48 EDT [place] Suicide Severity Rating Scale (C-SSRS) CSSRS Past Month Wish to be : No CSSRS Past Month Suicidal Thoughts : No CSSRS Lifetime Suicide Behavior : No Suicide Severity Rating Score : 0 Suicide Severity Rating : No Additional Care Required at this time Tessy Gramajo RN-PATIENT CARE [facility] - 10/15/2021 4:48 EDT Psychosocial History Does Someone Depend on You for Care? : No Chronic/Terminal Illness w/Freq Visits : Yes Do You Have a History of the Following? : Patient denies history Currently in Unsafe Situation : No Do You Have a Support System? : Yes Tessy Gramajo RN-PATIENT CARE [facility] - 10/15/2021 4:48 EDT Sleep Apnea [...] Score : 3 Tessy Gramajo RN-PATIENT CARE [facility] - 10/15/2021 4:48 EDT Spiritual/Cultural Needs Any Spiritual/Cultural Needs or Requests : No Tessy Gramajo RN-PATIENT CARE [facility] - 10/15/2021 4:48 EDT Valuables and Belongings Valuables and Belongings : Clothing, Personal items Clothing : Common streetwear Clothing Disposition : With family Personal Items : Wallet Personal Items Disposition : With family Tessy Gramajo RN-PATIENT CARE [facility] - 10/15/2021 4:48 EDT documented in this encounter Plan of Treatment Not on file documented as of this encounter Visit Diagnoses Not on filedocumented in this encounter Care Teams Printing Machine Mechanic Relationship Specialty Start Date End Date Eladio Lomas MD [address] [place] [address] Medical Oncologist Hematology and Oncology 07/08/22 Breanna Crow, PA-C [address] [place] [address] Physician Record Press Supervisor Oncology 07/08/22 documented as of this encounter
--- OUTSIDE RECORDS SUMMARY | 2024-11-12 09:48 | XMS_ITS | Encounter Summary ---
Author Organization [employer] ([place], [place], [place], [place]) Address [address] [place] [address] Care Team Providers Care Bacteriology Technician Name Role Phone Eladio Lomas MD Unavailable Breanna Crow PA-C Unavailable [phone] Encounter Details Date Type Department Care Team (Late st Contact Info) Description 01/01/2022 Transcribed Document [facility] [place] [address] [place] [address] ProviderJailyn MD [address] [place] [address] Social History Tobacco Use Types [...] often do you attend chur ch or sikhism services? Never 07/08/2022 Do you belong to [...] Date Ata rded Speak language other than Barbadian at home Not on file 05/13/2023 Want [...] Historical Provider, - 01/01/2022 1:04 [place] [address] SARAH HU :1950 Visit Time:01/01/2022 What to [...] for follow-up date and appointment time Activity: [place] dressing. Do not remove. May shower with [...] MD-ORT When 01/14/2022 11:00 AM EDT Where: [address] [place] [address] [address] [place] [address]- Medications What How Much When Instructions Next Dose acetaminophen-oxyCODONE (Percocet 7.5/ 325 oral tablet) 1 Tablet(s) Oral Three Times A Day as needed for for pain Pickup at [facility] acetaminophen (Tylenol 325 mg oral tablet) 2 Tablet(s) Oral Every 4 Hours as needed for Pain (Mild 1-3) ergocalciferol (ergocalciferol 50 mcg (2000 intl units) oral capsule) 1 Capsule(s) Oral Every Day Duration: 14 Day(s) multivitamin (Multiple Vitamins oral tablet) 1 Tablet(s) Oral Every Day valACYclovir (Valtrex 1 g oral tablet) 1 Tablet(s) Oral Every Day Pharmacy Information [facility]: [address] [place] [address] [phone] Take your medications faithfully. Do NOT skip [...] these instructions at home: Medicines ??? Take qtua-bwj-gpgxgks and prescription medicines as told by your [...] keep your urine pale yellow. ? Take tqfk-htq-sptdkox or prescription medicines. ? Eat foods that [...] and water are not available, use hand pizza delivery. ? Change your dressing as told by [...] safe to drive. General instructions ??? Take abze-qyz-qhdblsb and prescription medicines only as told by [...] provider. Document Revised: 08/06/2020 Document Reviewed: 08/06/2020 [employer] Patient Education ?? 2021 [employer] Laminectomy, Care After This sheet gives [...] these instructions at home: Medicines ??? Take sraa-geg-iipfjwl and prescription medicines only as told by [...] keep your urine pale yellow. ? Take hvrh-oox-krpoopc or prescription medicines. ? Eat foods that [...] and water are not available, use hand pizza delivery. ? Change your dressing as told by [...] provider. Document Revised: 11/12/2019 Document Reviewed: 11/12/2019 [employer] Patient Education ?? 2021 [employer]. Emergency Awareness and Preventative Care STROKE is [...] Assistance with quitting is available by contacting 0-892-TQEC-NOW. This is a free resource providing counseling, [...] was given the opportunity to ask questions. Patient/Filling Layer Up Name: Patient/Filling Layer Up Signature: Relationship to Patient: Clinician/Hospital Filling Layer Up Signature: Date: documented in this encounter Plan of Treatment Not on file documented as of this encounter Visit Diagnoses Not on filedocumented in this encounter Care Teams Bacteriology Technician Relationship Specialty Start Date End Date Eladio Lomas MD [address] [facility] [address] [place], [place] [id number] Medical Oncologist Hematology and Oncology 07/08/22 Breanna Crow PARebelC [address] [facility] [address] [place] [address] Physician Sorter Pricer Oncology 07/08/22 documented as of this encounter
--- OUTSIDE RECORDS SUMMARY | 2024-11-12 09:48 | XMS_ITS | Encounter Summary ---
Author Organization [employer] ([place], [place], [place], [place]) Address [address] [place] [address] Care Team Providers Care Weigh Boss Name Role Phone Eladio Lomas MD Unavailable Breanna Crow PA-C Unavailable [phone] Encounter Details Date Type Department Care Team (Late st Contact Info) Description 01/01/2022 Transcribed Document [facility] [place] [address] [place] [address] ProviderJailyn MD [address] [place] [address] Social History Tobacco Use [...] any clubs o r organizations such as sabianism groups, unions, fraternal or athletic groups, or [...] Date Ata rded Speak language other than Austrian at home Not on file 05/13/2023 Want [...] Conversion Note - Historical Provider, - 01/01/2022 12:59 [place] [address] SARAH HU :1950 Visit Time:01/01/2022 What to [...] for follow-up date and appointment time Activity: [place] dressing. Do not remove. May shower with [...] When 01/14/2022 11:00 AM EDT Where: [address] [place] [address] [address] [place] [address]- Medications What How Much When Instructions Next Dose acetaminophen-oxyCODONE (Percocet 7.5/ 325 oral tablet) 1 Tablet(s) Oral Three Times A Day as needed for for pain Pickup at [facility] acetaminophen (Tylenol 325 mg oral tablet) 2 Tablet(s) Oral Every 4 Hours as needed for Pain (Mild 1-3) ergocalciferol (ergocalciferol 50 mcg (2000 intl units) oral capsule) 1 Capsule(s) Oral Every Day Duration: 14 Day(s) multivitamin (Multiple Vitamins oral tablet) 1 Tablet(s) Oral Every Day valACYclovir (Valtrex 1 g oral tablet) 1 Tablet(s) Oral Every Day Pharmacy Information [facility]: [address] [place] [address] [phone] Take your medications faithfully. Do NOT skip [...] these instructions at home: Medicines ??? Take qngg-ejh-absycai and prescription medicines as told by your [...] keep your urine pale yellow. ? Take lylt-ivl-xnwqigx or prescription medicines. ? Eat foods that [...] and water are not available, use hand rfid engineer. ? Change your dressing as told by [...] safe to drive. General instructions ??? Take fxsi-dno-qpxegbc and prescription medicines only as told by [...] provider. Document Revised: 08/06/2020 Document Reviewed: 08/06/2020 [employer] Patient Education ?? 2021 [employer] Laminectomy, Care After This sheet gives [...] these instructions at home: Medicines ??? Take fqsr-mmg-fbgnyhi and prescription medicines only as told by [...] keep your urine pale yellow. ? Take lpom-dxf-yuefbsl or prescription medicines. ? Eat foods that [...] and water are not available, use hand rfid engineer. ? Change your dressing as told by [...] provider. Document Revised: 11/12/2019 Document Reviewed: 11/12/2019 [employer] Patient Education ?? 2021 [employer]. Emergency Awareness and Preventative Care STROKE is [...] Assistance with quitting is available by contacting 7-805-WEML-NOW. This is a free resource providing counseling, [...] was given the opportunity to ask questions. Patient/House Wirer Name: Patient/House Wirer Signature: Relationship to Patient: Clinician/Hospital House Wirer Signature: Date: documented in this encounter Plan of Treatment Not on file documented as of this encounter Visit Diagnoses Not on filedocumented in this encounter Care Teams Weigh Boss Relationship Specialty Start Date End Date Eladio Lomas MD 12[address] [facility] [address] [place], [place] [id number] Medical Oncologist Hematology and Oncology 07/08/22 Breanna Crow PARebelC [address] [facility] [address] [place] [address] Physician Appraisal Specialist Oncology 07/08/22 documented as of this encounter
--- OUTSIDE RECORDS SUMMARY | 2024-11-12 09:48 | XMS_ITS | Encounter Summary ---
Author Organization [employer] ([place], [place], [place], [place]) Address [address] [place] [address] Care Team Providers Care Floral Clerk Name Role Phone Eladio Lomas MD Unavailable Breanna Crow PA-C Unavailable [phone] Encounter Details Date Type Department Care Team (Late st Contact Info) Description 01/01/[address] [facility] [place] [address] [place] [address] ProviderJailyn MD [address] [place] [address] Social History Tobacco Use Types [...] often do you attend chur ch or gnosticism services? Never 07/08/2022 Do you belong to [...] Date Ata rded Speak language other than Togolese at home Not on file 05/13/2023 Want [...] Conversion Note - Historical Provider, - 01/01/2022 10:44 AM CDT Event Note Entered On: 01/01/2022 10:46 EDT Performed On: 01/01/2022 10:[address], RN Event Note Event Date/Time : 01/01/2022 [...] Ansley Lane RN - 01/01/2022 10:44 EDT Electronically signed by Huy [facility] Conversion Occupational Therapy Instructor Cerner at 08/17/2022 6:06 PM CDT documented in this encounter Plan of Treatment Not on file documented as of this encounter Visit Diagnoses Not on filedocumented in this encounter Care Teams Floral Clerk Relationship Specialty Start Date End Date Eladio Lomas MD 12[address] [facility] [address] [place] [address] Medical Oncologist Hematology and Oncology 07/08/22 Breanna Crow PA-C [address] [facility] [address] [place] [address] Physician Director Of Outpatient Services Oncology 07/08/22 documented as of this encounter
--- OUTSIDE RECORDS SUMMARY | 2024-11-12 09:48 | XMS_ITS | Encounter Summary ---
Author Organization [employer] ([place], [place], [place], [place]) Address [address] [place] [address] Care Team Providers Care Projects Manager Name Role Phone Eladio Lomas MD Unavailable Breanna Crow PA-C Unavailable [phone] Encounter Details Date Type Department Care Team (Late st Contact Info) Description 10/15/2021 Transcribed Document [facility] [place] [address] [place] [address] ProviderJailyn MD [address] [place] [address] Social History Tobacco Use Types [...] Date Ata rded Speak language other than Bermudian at home Not on file 05/13/2023 Want [...] Conversion Note - Historical Provider, - 10/15/2021 12:50 PM CDT Consult Phone Call Documentation Entered On: 10/15/2021 14:45 EDT Performed On: 10/15/2021 12:50 EDT by Miladys Carter, [facility] Coord Phone Call for Consults Consult Reason : spine for right L5 radiculopathy causing foot drop Physician Requesting Consult : ROMERO INGRAM MD-SERENE Physician Requested for Consult : SHARON PATRICIO MD-ORT Date and Time Call Returned : 10/15/2021 14:40 EDT Consult, Additional Information : Spoke with Dr. Rosenberg on the phone concerning the consult. Miladys Carter, [facility] Coord - 10/15/2021 14:41 EDT Electronically signed by [facility] Conversion Library Circulation Clerk Cerner at 08/17/2022 5:55 PM CDT documented in this encounter Plan of Treatment Not on file documented as of this encounter Visit Diagnoses Not on filedocumented in this encounter Care Teams Projects Manager Relationship Specialty Start Date End Date Eladio Lomas MD [address] [facility] [address] [place] [address] Medical Oncologist Hematology and Oncology 07/08/22 Breanna Crow PACecilia [address] [facility] [address] [place] [address] Physician Admissions Evaluator Oncology 07/08/22 documented as of this encounter
--- OUTSIDE RECORDS SUMMARY | 2024-11-12 09:48 | XMS_ITS | Encounter Summary ---
Author Organization [employer] ([place], [place], [place], [place]) Address [address] [place] [address] Care Team Providers Care Precision Assembler Bench Name Role Phone Eladio Lomas MD Unavailable Breanna Crow PA-C Unavailable [phone] Encounter Details Date Type Department Care Team (Late st Contact Info) Description 01/01/2022 Transcribed Document [facility] Family Medicine [address] [place] [address] ProviderJailyn MD [address] [place] [address] Social History Tobacco Use Types [...] often do you attend chur ch or restorationism services? Never 07/08/2022 Do you belong to any clubs o r organizations such as rastafari groups, unions, fraternal or athletic groups, or school groups? No 07/08/2022 Attends Club or Organization Meetings Not on jaeln e 07/08/2022 Are you , , di [...] Date Ata rded Speak language other than Mongolian at home Not on file 05/13/2023 Want [...] Conversion Note - Historical Provider, - 01/01/2022 11:46 AM CDT Patient: SARAH [...] lysis, facetectomy, L4-5 SURGEON: Garcia Workman MD. CITY LIBRARY DIRECTOR: Roberto Plata ANESTHESIA: General. ESTIMATED BLOOD LOSS: [...] on filedocumented in this encounter Care Teams Precision Assembler Bench Relationship Specialty Start Date End Date Eladio Lomas MD [address] [facility] [address] [place], [place] [id number] Medical Oncologist Hematology and Oncology 07/08/22 Breanna Crow PACecilia [address] [facility] [address] [place] [address] Physician Take Out Waiter/Waitress Oncology 07/08/22 documented as of this encounter
--- OUTSIDE RECORDS SUMMARY | 2024-11-12 09:48 | XMS_ITS | Encounter Summary ---
Author Organization [employer] ([place], [place], [place], [place]) Address [address] [place] [address] Care Team Providers Care Inspector Timers Name Role Phone Elaido Lomas MD Unavailable Breanna Crow PA-C Unavailable [phone] Encounter Details Date Type Department Care Team (Late st Contact Info) Description 10/15/2021 Transcribed Document [facility] [place] [address] [place] [address] ProviderJailyn MD [address] [place] [address] Social History Tobacco Use Types [...] Date Ata rded Speak language other than [place] Timorese at home Not on file 05/13/2023 Want [...] Conversion Note - Historical Provider, - 10/15/2021 8:30 AM CDT Attempt to Treat, PT Entered On: 10/15/2021 15:55 EDT Performed On: 10/15/2021 8:30 EDT by Christiano Magana, Physical Therapist Attempt to Treat Unable to Treat Due To : Patient on hold Inability to Treat Comment : RN held due to Pt having a DVT. Christiano Magana, Physical Therapist - 10/15/2021 15:55 EDT Electronically signed by Huy, [facility] Conversion Pipeline Operator Cerner at 08/17/2022 5:55 PM CDT documented in this encounter Plan of Treatment Not on file documented as of this encounter Visit Diagnoses Not on filedocumented in this encounter Care Teams Inspector Timers Relationship Specialty Start Date End Date Eladio Lomas MD [address] [facility] [address] [place] [address] Medical Oncologist Hematology and Oncology 07/08/22 Breanna Crow, PACecilia [address] [facility] [address] [place] [address] Physician Griddle Cook Oncology 07/08/22 documented as of this encounter
--- OUTSIDE RECORDS SUMMARY | 2024-11-12 09:48 | XMS_ITS | Encounter Summary ---
Author Organization [employer] ([place], [place], [place], [place]) Address [address] [place] [address] Care Team Providers Care Overlock Sewing Machine Operator Name Role Phone Eladio Lomas MD Unavailable Breanna Crow PA-C Unavailable [phone] Encounter Details Date Type Department Care Team (Late st Contact Info) Description 01/01/2022 Transcribed Document [facility] [place] [address] [place] [address] ProviderJailyn MD [address] [place] [address] Social History Tobacco Use Types [...] often do you attend chur ch or shinto services? Never 07/08/2022 Do you belong to [...] Date Ata rded Speak language other than Palauan at home Not on file 05/13/2023 Want [...] 01/01/2022 11:05 AM CDT [facility] Main OR IntraOp Summary Primary Physician: GARCIA WORKMAN MD-ORT Finalized Date/Time: 01/01/22 12:22:25 Pt. Name: CORBIN HU /Sex: 1950 Male [facility] Rec #: [id number] Physician: GARCIA WORKMAN MD-ORT Financial #: [id number] Pt. Type: O Room/Bed: [facility] Admit/Disch: 01/01/22 09:26:00 - Institution[place] [facility] [place] Case Attendance Entry 1 Entry 2 Entry 3 Case Attendee GARCIA WORKMAN MD-ORT MCDONALD, LEAH BETH, Bowling, Jachob, CRNA [email or web address] Role Performed Surgeon/Proceduralist, PATROL INSPECTOR/Nurse Supervisor Feed House PATROL INSPECTOR/Nurse Supervisor Feed House First Time In 01/01/22 10:42:00 01/01/22 10:42:00 01/01/22 10:42:00 Time Out 01/01/22 11:49:00 01/01/22 11:49:00 01/01/22 11:49:00 Procedure Lumbar Laminectomy Lumbar Laminectomy Lumbar Laminectomy Other Attendee Superficial Wound Closed By: Last Modified By: SAMMIE PEREZ RN LONGSWORTH, GARY, RN LONGSWORTH, GARY, RN 01/01/22 11:49:14 01/01/22 11:49:14 01/01/22 11:49:14 Entry 4 Entry 5 Entry 6 Case Attendee SAMMIE PEREZ, Lea Charles, RN Paulina Joseph, Associate Professor Of Theology Role Performed Weighing Station Operator, First Weighing Station Operator, Second Scrub, First Time In 01/01/22 10:42:00 01/01/22 10:42:00 01/01/22 10:42:00 Time Out 01/01/22 11:49:00 01/01/22 11:49:00 01/01/22 11:49:00 Procedure Lumbar Laminectomy Lumbar Laminectomy Lumbar Laminectomy Other Attendee Superficial Wound Closed By: Last Modified By: SAMMIE PEREZ RN LONGSWORTH, GARY, SAMMIE VARNER RN 01/01/22 11:49:14 01/01/22 11:49:14 01/01/22 11:49:14 Entry 7 Entry 8 Entry 9 Case Attendee Layla Padilla, CHRISTOFER ARDON, aMsha Queen, Retail Sales Advisor Role Performed Scrub, Second Physician assistant professor of mathematics Satellite Installation Technician Time In 01/01/22 10:42:00 01/01/22 10:42:00 01/01/22 10:42:00 Time Out 01/01/22 11:49:00 01/01/22 11:49:00 01/01/22 11:49:00 Procedure Lumbar Laminectomy Lumbar Laminectomy Lumbar Laminectomy Other Attendee Superficial Wound Closed By: Last Modified By: SAMMIE PEREZ, SAMMIE VARNER, RN SAMMIE PEREZ, SHARYN 01/01/22 11:49:14 01/01/22 11:49:14 01/01/22 11:49:14 [facility] IntraOp Case Attendance Audit 01/01/22 11:49:14 Suppression Crew Leader: SAM Modifier: LONGGA 1 <+> Time In [...] 9 <*> Procedure Lumbar Laminectomy 01/01/22 10:34:07 Suppression Crew Leader: SAM Modifier: LONGGA <+> 1 Procedure 2 [...] [facility] IntraOp Case Times Audit 01/01/22 11:49:13 Suppression Crew Leader: LONGGA Modifier: LONGGA <+> 1 Out Room Time <+> 1 Stop Time <+> 1 Stop Time 01/01/22 11:07:50 Suppression Crew Leader: LONGGA Modifier: LONGGA <+> 1 Start Time [facility] IntraOp Cautery Entry 1 ESU Identification Cautery Type Monopolar ESU ID Number [id number] ID Type Hospital Number Cautery Settings Cut Setting 35 Coag Setting 35 Bipolar Setting 20 ESU Grounding Pad Ground Pad Type Adult Grounding Pad Site Left thigh Grounding Pad Site LEFT POSTERIOR THIGH Comment Grounding Pad SAMMIE PEREZ, RN Applied By Grounding Pad Site Intact Skin Condition Before Cautery Grounding Pad Site Unchanged Skin Condition After Cautery Last Modified By: SAMMIE PEREZ RN 01/01/22 11:10:17 [facility] IntraOp Cautery Audit 01/01/22 11:10:35 Suppression Crew Leader: LONGGA Modifier: LONGGA 1 <*> Grounding Pad Applied By CHRISTOFER THORPE PA-UNK [facility] IntraOp Communication Entry 1 Communication To Family/Significant other Comment PROCEDURE STARTING Communication By SAMMIE PEREZ, SHARYN Date and Time 01/01/22 11:09:00 Last Modified By: SAMMIE PEREZ RN 01/01/22 11:09:38 [facility] IntraOp Counts Verification Entry 1 Procedure Lumbar Laminectomy Count Info Count Type Sponge, Sharps Counts Verification Baseline/pre-procedure Sequence Count Results Correct, surgeon notified Counts Performed By Count Performed By Layla Padilla, MAIA (Scrub) Count Performed By SAMMIE PEREZ, RN (RN) Last Modified By: SAMMIE PEREZ RN 01/01/22 10:31:22 [facility] IntraOp Counts Final Entry 1 Procedure Lumbar Laminectomy Final Count Info Count Type Sponge, Sharps Counts Verification Skin Closure/end of Sequence procedure Count Results Correct, surgeon notified Counts Performed By Count Performed By Layla Padilla CST (Scrub) Count Performed By SAMMIE PEREZ RN [...] RN 01/01/22 10:31:33 [facility] IntraOp General Case Graphics Artist 1 Case Information OR OR 01 [facility] Case Level 1 Room Verified Yes Wound Class 1 - Clean Specialty Neurosurgery Anesthesia Type General ASA Class 2 Diagnosis Preop Diagnosis STENOSIS L4-5 Postop Same As Preop Yes Postop Diagnosis STENOSIS L4-5 Wound Class Definitions Last Modified By: SAMMIE PEREZ RN 01/01/22 10:47:20 [facility] IntraOp General Case Data Audit 01/01/22 10:47:20 Suppression Crew Leader: LONGJACKI Modifier: LONGGA 1 <*> OR OR 04 [...] 1ml epinephrine 1:200,000 topical kit injection - [id number] 30ml vial - [id number] (recombinant) - [id number] Combo Med List Time Administered Route of [...] [facility] IntraOp Medication Admin Audit 01/01/22 11:28:39 Suppression Crew Leader: LONGGA Modifier: LONGGA <+> 3 Medication/Irrigant <+> 3 Route of [...] ARMS Positioned By SAMMIE PEREZ, SHARYN, LARRY GAMINO, REBECA, CHRISTOFER THORPE PA-UNK, GARCIA WORKMAN MD-ORT Position Verified Positioning Yes [...] [facility] IntraOp Surgical Procedures Audit 01/01/22 11:41:50 Suppression Crew Leader: LONGGA Modifier: LONGGA 1 <*> Procedure Lumbar Laminectomy 1 <+> Stop 01/01/22 11:38:39 Suppression Crew Leader: LONGGA Modifier: LONGGA 1 <*> Procedure Lumbar Laminectomy 1 <*> Additional Procedure Description RIGHT L4-5 LAMINECTOMY, DISCECTOMY 01/01/22 11:07:55 Suppression Crew Leader: LONGGA Modifier: LONGGA <+> 1 Start [facility] IntraOp Temp Regulation Devices Entry 1 Temp Regulation Temperature Warm blankets Regulation Device Temperature Upper body Regulation Site Temperature LARRY GAMINO, Regulation Device PATROL INSPECTOR Applied by Last Modified By: SAMMIE PEREZ [...] Type Fluoroscopy Fluoroscopy Type C-Arm Site BACK Regulator Operator Name Masha Sanders, Retail Sales Advisor Protective Devices Yes Used Last Modified By: SAMMIE PEREZ RN 01/01/22 11:13:53 Case Comments <None> Finalized By: SAMMIE PEREZ, RN Document Signatures Signed By: SAMMIE PEREZ RN 01/01/22 11:50 SAMMIE PEREZ RN 01/01/22 12:22 Unfinalized History Date/Time Username Reason for Unfinalizing Freetext Reason for Unfinalizing 01/01/22 12:21 SAM Correct Documentation documented in this encounter Plan of Treatment Not on file documented as of this encounter Visit Diagnoses Not on filedocumented in this encounter Care Teams Overlock Sewing Machine Operator Relationship Specialty Start Date End Date Eladio Lomas MD [address] [facility] [address] [address] Medical Oncologist Hematology and Oncology 07/08/22 Breanna Crow PA-C [address] [place] [address] [place] [address] Physician Penology Professor Oncology 07/08/22 documented as of this encounter
--- OUTSIDE RECORDS SUMMARY | 2024-11-12 09:48 | XMS_ITS | Encounter Summary ---
Author Organization [employer] ([place], [place], [place], [place]) Address [address] [place] [address] Care Team Providers Care Insurance Executive Name Role Phone Eladio Lomas MD Unavailable Breanna Crow PA-C Unavailable [phone] Encounter Details Date Type Department Care Team (Late st Contact Info) Description 10/15/2021 Transcribed Document [facility] [place] Medicine [address] [place] [address] ProviderJailyn MD [address] [place] [address] Social History Tobacco Use Types [...] any clubs o r organizations such as muslim groups, unions, fraternal or athletic groups, or [...] Date Ata rded Speak language other than Moroccan at home Not on file 05/13/2023 Want [...] Conversion Note - Historical Provider, - 10/15/2021 9:18 AM CDT UM Authorization Entered On: 10/15/2021 9:19 EDT Performed On: 10/15/2021 9:18 EDT by JUANITA HUGO RN-Utilization Review Primary Insurance Authorization Authorization and Policy Numbers : Insurance 1 Health Plan: [employer] PPO Policy Number: [id number] Authorization Number: Insurance Primary Name : [employer] PPO [id number] Authorization Status-Primary : Pending Reference Number-Primary : [id number] Authorized Service Begin Date-Primary : 10/15/2021 EDT Authorization Comments-Primary : [employer] PPO auth pending per Star note. Historical Authorization Comments-Primary : No Authorization Comments Found JUANITA HUGO RN-Utilization Review - 10/15/2021 9:18 EDT documented in this encounter Plan of Treatment Not on file documented as of this encounter Visit Diagnoses Not on filedocumented in this encounter Care Teams Insurance Executive Relationship Specialty Start Date End Date Eladio Lomas MD [address] [facility] [address], [place] [address] Medical Oncologist Hematology and Oncology 07/08/22 Breanna Crow PACecilia [address] [facility] [address] [place] [address] Physician Production Team Advisor Oncology 07/08/22 documented as of this encounter
--- OUTSIDE RECORDS SUMMARY | 2024-11-12 09:48 | XMS_ITS | Encounter Summary ---
Author Organization [facility] Address [address] [place] [address] Care Team Providers Care Zigzag Tunnel Elastic Operator Name Role Phone Per Patient, None Primary Care Provider Unavaila ble Encounter Details Date Type Department Care Team (Late st Contact Info) Description 01/07/2021 Orders Only [facility] [address] [place] [address] Maurisio Aguilar MD [address] [address] Social History Tobacco Use Types [...] External Glucose 99 74 - 100 mg/dL [facility] External BUN 16 6 - 20 mg/dL [facility] External Creatinine Blood 0.93 0.70 - 1.28 mg/dL [facility] External BUN/Creat Ratio 17 10 - 20 (calc) [facility] External Sodium 141 136 - 145 mmol/L [facility] External Potassium 4.2 3.4 - 5.0 mmol/L [facility] External Chloride 102 98 - 107 mmol/L [facility] External Carbon Dioxide 25 22 - 31 mmol/L [facility] External Anion Gap (AG) 14 7 - 25 (calc) [facility] External Calcium 9.4 8.6 - 10.2 mg/dL [facility] External Total Protein 7.0 6.4 - 8.3 g/dL [facility] External Albumin 4.8 3.5 - 5.2 g/dL [facility] External Globulin 2.2 1.5 - 4.5 g/dL (calc) [facility] External Albumin/Globulin Ratio 2.2 1.1 - 2.5 (calc) [facility] External Bilirubin Total 0.4 0.1 - 1.2 mg/dL [facility] External Alkaline Phosphatase 85 40 - 129 U/L [facility] External AST (SGOT) 22 0 - 40 U/L [facility] External ALT (SGPT) 19 0 - 41 U/L [facility] External EGFR (If AFR/AM) 94 >=60 [facility] External Estimated GFR 81 >=60 [facility] Comment: NOTE Chronic kidney disease is [...] MD LAB BLOOD ORDERABLES Final Res ult [facility] [address] [place] [address], [place] [phone] documented in this encounter Visit Diagnoses Not on filedocumented in this encounter Care Teams Zigzag Tunnel Elastic Operator Relationship Specialty Start Date End Date Per [place], [place] [address] PCP - General 05/02/20 documented as of this encounter
--- OUTSIDE RECORDS SUMMARY | 2024-11-12 09:48 | XMS_ITS | Encounter Summary ---
Author Organization [employer] ([place], [place], [place], [place]) Address [address] [place] [address] Care Team Providers Care Printed Circuit Boards Router Name Role Phone Eladio Lomas MD Unavailable Breanna Crow PA-C Unavailable [phone] Encounter Details Date Type Department Care Team (Late st Contact Info) Description 10/15/2021 Transcribed Document [facility] [place] [address] [place] [address] ProviderJailyn MD [address] [place] [address] Social History Tobacco Use Types [...] often do you attend chur ch or christianity services? Never 07/08/2022 Do you belong to any clubs o r organizations such as denominational groups, unions, fraternal or athletic groups, or [...] Date Ata rded Speak language other than Anguillan at home Not on file 05/13/2023 Want [...] Historical Provider, - 10/15/2021 5:37 AM CDT Education-(VTE) / [...] on filedocumented in this encounter Care Teams Printed Circuit Boards Router Relationship Specialty Start Date End Date Eladio Lomas MD [address] [address] Medical Oncologist Hematology and Oncology 07/08/22 Breanna Crow, PA-C [address] [place] [address] Physician Hemodialysis Charge Nurse Oncology 07/08/22 documented as of this encounter
--- OUTSIDE RECORDS SUMMARY | 2024-11-12 09:48 | XMS_ITS | Encounter Summary ---
Author Organization [employer] ([place], [place], [place], [place]) Address [address] [place] [address] Care Team Providers Care Contract Officer Name Role Phone Eladio Lomas MD Unavailable Breanna Crow PA-C Unavailable [phone] Encounter Details Date Type Department Care Team (Late st Contact Info) Description 10/15/2021 Transcribed Document [facility] [place] Family Medicine [address] [place] [address] ProviderJailyn MD [address] [place] [address] Social History Tobacco Use Types [...] often do you attend chur ch or jainism services? Never 07/08/2022 Do you belong to [...] Date Ata rded Speak language other than Burundian at home Not on file 05/13/2023 Want [...] Conversion Note - Historical Provider, - 10/15/2021 5:50 AM CDT Education-Wound Care Entered On: 10/15/2021 7:05 EDT Performed On: 10/15/2021 5:50 EDT by Tessy Gramajo, RN-PATIENT CARE BEDSIDE NON-EXEMPT Teaching/Learning Assessment Barriers To Learning : None evident Individuals Taught : Patient, Spouse Readiness to Learn : Cooperative Baseline Knowledge of Topic : Good Readiness to Learn : Explanation Learning Style Preferences Patient : Verbal explanation Learning Style Preferences Family : Verbal explanation Tessy Gramajo RN-PATIENT CARE BEDSIDE NON-EXEMPT - 10/15/2021 7:05 EDT Electronically signed by Harjeet Son Conversion Medical Certification Specialist Cerner at 08/17/2022 6:03 PM CDT documented in this encounter Plan of Treatment Not on file documented as of this encounter Visit Diagnoses Not on filedocumented in this encounter Care Teams Contract Officer Relationship Specialty Start Date End Date Eladio Lomas MD [address] [facility] [address] [place] [address] Medical Oncologist Hematology and Oncology 07/08/22 Breanna Crow, PACecilia [address] [place] [address] [place] [address] Physician Gripper Installer Oncology 07/08/22 documented as of this encounter
--- OUTSIDE RECORDS SUMMARY | 2024-11-12 09:48 | XMS_ITS | Encounter Summary ---
Author Organization [employer] ([place], [place], [place], [place]) Address [address] [place] [address] Care Team Providers Care Skiver Heel Tap Name Role Phone Eladio Lomas MD Unavailable Breanna Crow PA-C Unavailable [phone] Encounter Details Date Type Department Care Team (Late st Contact Info) Description 10/15/2021 Transcribed Document [facility] [place] [address] [place] [address] ProviderJailyn MD [address] [place] [address] Social History Tobacco Use Types [...] any clubs o r organizations such as buddhism groups, unions, fraternal or athletic groups, or [...] Date Ata rded Speak language other than Guamanian at home Not on file 05/13/2023 Want [...] Note - Historical Provider, - 10/15/2021 5:00 PM CDT Chart Check - Review Order Profile Entered On: 10/15/2021 20:37 EDT Performed On: 10/15/2021 17:00 EDT by Celina Marley Non Emp RN Chart Check Powerplans Initiated/Discontinued as Appropriate : Yes All Active Orders Reviewed : Yes Celina Marley Non Emp RN - 10/15/2021 20:37 EDT Electronically signed by Huy [facility] Conversion Consumer Banker Cerner at 08/17/2022 6:14 PM CDT documented in this encounter Plan of Treatment Not on file documented as of this encounter Visit Diagnoses Not on filedocumented in this encounter Care Teams Skiver Heel Tap Relationship Specialty Start Date End Date Eladio Lomas MD [address] [facility] [address], [place] [address] Medical Oncologist Hematology and Oncology 07/08/22 Breanna Crow, PA-C [address] [facility] [address] [place] [address] Physician Second Class Welder Oncology 07/08/22 documented as of this encounter
--- OUTSIDE RECORDS SUMMARY | 2024-11-12 09:48 | XMS_ITS | Encounter Summary ---
Author Organization [employer] ([place], [place], [place], [place]) Address [address] [place] [address] Care Team Providers Care Sql Application Developer Name Role Phone Eladio Lomas MD Unavailable Breanna Crow PA-C Unavailable [phone] Encounter Details Date Type Department Care Team (Late st Contact Info) Description 10/14/2021 Transcribed Document [facility] [place] [address] [place] [address] ProviderJailyn MD [address] [place] [address] Social History Tobacco Use Types [...] any clubs o r organizations such as zoroastrian groups, unions, fraternal or athletic groups, or [...] Ata rded Speak language other than British at home Not on file 05/13/2023 Want [...] Provider, - 10/14/2021 6:20 PM CDT ED Assessment Entered On: 10/15/2021 1:38 EDT Performed On: 10/14/2021 21:30 EDT by FLORA SOUZA RN ED Quick Look Assessment Level of Consciousness : Alert, Awake Affect/Behavior : Appropriate, Calm, Cooperative Orientation : Oriented x 4 Skin Temperature : Warm Skin Description : Dry, [place] FLORA SOUZA RN - 10/15/2021 1:37 EDT ED General-Functional Assess Information Obtained From : Patient Communication Barrier : None Primary Language : British Any Spiritual/Cultural Needs or Requests : No [...] FLORA SOUZA RN - 10/15/2021 1:37 EDT [place] Coma Dejuan Best Motor Response : Obey commands Dejuan Best Verbal Response : Oriented [place] Eye Opening Response : Spontaneous [place] Coma Score : 15 FLORA SOUZA RN - 10/15/2021 1:37 EDT Electronically signed by Huy [facility] Conversion Quill Picking Machine Operator Cerner at 08/17/2022 6:19 PM CDT documented in this encounter Plan of Treatment Not on file documented as of this encounter Visit Diagnoses Not on filedocumented in this encounter Care Teams Sql Application Developer Relationship Specialty Start Date End Date Eladio Lomas MD [address] [facility] [address] [place] [address] Medical Oncologist Hematology and Oncology 07/08/22 Breanna Crow PA-C [address] [facility] [address] [place] [address] Physician Public Health Outreach Worker Oncology 07/08/22 documented as of this encounter
--- OUTSIDE RECORDS SUMMARY | 2024-11-12 09:48 | XMS_ITS | Encounter Summary ---
Author Organization [employer] ([place], [place], [place], [place]) Address [address] [place] [address] Care Team Providers Care Manager Unit Name Role Phone Eladio Lomas MD Unavailable Breanna Crow PA-C Unavailable [phone] Encounter Details Date Type Department Care Team (Late st Contact Info) Description 10/15/2021 Transcribed Document [facility] [place] [address] [place] [address] ProviderJailyn MD [address] [place], [...] often do you attend chur ch or rastafarian services? Never 07/08/2022 Do you belong to [...] Date Ata rded Speak language other than Cay[place] Islander at home Not on file 05/13/2023 [...] Historical Provider, - 10/15/2021 9:30 AM CDT On Going [...] will transport at dc. Neuro, PT/OT consulted IN LOW [place] 4 days PLAN: needs TBD- pending MRI and final recs, CM will follow for dc planning needs Meghann Scott Rn - 10/15/2021 9:30 EDT Electronically signed by Huy [facility] Conversion Parking Enforcer Cerner at 08/17/2022 6:01 PM CDT documented in this encounter Plan of Treatment Not on file documented as of this encounter Visit Diagnoses Not on filedocumented in this encounter Care Teams Manager Unit Relationship Specialty Start Date End Date Eladio Lomas MD [address] [facility] [address] [place] [address] Medical Oncologist Hematology and Oncology 07/08/22 Breanna Crow PA-C [address] [facility] [address] [place] [address] Physician Rack Puller Oncology 07/08/22 documented as of this encounter
--- OUTSIDE RECORDS SUMMARY | 2024-11-12 09:48 | XMS_ITS | Encounter Summary ---
Author Organization [employer] ([place], [place], [place], [place]) Address [address] [place] [address] Care Team Providers Care Turbo Electric Operator Name Role Phone Eladio Lomas MD Unavailable Breanna Crow PA-C Unavailable [phone] Encounter Details Date Type Department Care Team (Late st Contact Info) Description 01/01/2022 Transcribed Document [facility] [place] Family Medicine [address] [place] [address] ProviderJailyn MD [address] [place] [address] Social History Tobacco Use Types [...] often do you attend chur ch or scientology services? Never 07/08/2022 Do you belong to [...] Date Ata rded Speak language other than Turkmen at home Not on file 05/13/2023 Want [...] Historical Provider, - 01/01/2022 12:58 [place] [address] SARAH HU :1950 Visit Time:01/01/2022 What to [...] for follow-up date and appointment time Activity: [place] dressing. Do not remove. May shower with [...] MD-ORT When 01/14/2022 11:00 AM EDT Where: [address] [place] [address] [address] [place] [address]- Medications What How Much When Instructions Next Dose acetaminophen-oxyCODONE (Percocet 7.5/ 325 oral tablet) 1 Tablet(s) Oral Three Times A Day as needed for for pain Pickup at [facility] acetaminophen (Tylenol 325 mg oral tablet) 2 Tablet(s) Oral Every 4 Hours as needed for Pain (Mild 1-3) ergocalciferol (ergocalciferol 50 mcg (2000 intl units) oral capsule) 1 Capsule(s) Oral Every Day Duration: 14 Day(s) multivitamin (Multiple Vitamins oral tablet) 1 Tablet(s) Oral Every Day valACYclovir (Valtrex 1 g oral tablet) 1 Tablet(s) Oral Every Day Pharmacy Information [facility]: [address] [place] [address] [phone] Take your medications faithfully. Do NOT skip [...] these instructions at home: Medicines ??? Take vivn-dhq-zrmqmfy and prescription medicines as told by your [...] keep your urine pale yellow. ? Take mfpz-rwg-kpbslmi or prescription medicines. ? Eat foods that [...] and water are not available, use hand supreme court justice. ? Change your dressing as told by [...] safe to drive. General instructions ??? Take nnoq-koy-jbgcswq and prescription medicines only as told by [...] provider. Document Revised: 08/06/2020 Document Reviewed: 08/06/2020 [employer] Patient Education ?? 2021 [employer] Laminectomy, Care After This sheet gives [...] these instructions at home: Medicines ??? Take rgeu-agt-dltgdsn and prescription medicines only as told by [...] keep your urine pale yellow. ? Take qjop-zne-uzlwmyl or prescription medicines. ? Eat foods that [...] and water are not available, use hand supreme court justice. ? Change your dressing as told by [...] provider. Document Revised: 11/12/2019 Document Reviewed: 11/12/2019 [employer] Patient Education ?? 2021 [employer]. Emergency Awareness and Preventative Care STROKE is [...] Assistance with quitting is available by contacting 3-799-HHYV-NOW. This is a free resource providing counseling, [...] was given the opportunity to ask questions. Patient/Tax Collector Name: Patient/Tax Collector Signature: Relationship to Patient: Clinician/Hospital Tax Collector Signature: Date: Electronically signed by Rock Son Conversion Hospice Care Transitions Coordinator Cerner at 08/17/2022 6:10 PM CDT documented in this encounter Plan of Treatment Not on file documented as of this encounter Visit Diagnoses Not on filedocumented in this encounter Care Teams Turbo Electric Operator Relationship Specialty Start Date End Date Eladio Lomas MD [address] [facility] [address] [place], [place] [id number] Medical Oncologist Hematology and Oncology 07/08/22 Breanna Crow PARebelC [address] [facility] [address] [place] [address] Physician Salvationist Oncology 07/08/22 documented as of this encounter
--- OUTSIDE RECORDS SUMMARY | 2024-11-12 09:48 | XMS_ITS | Encounter Summary ---
Author Organization [employer] ([place], [place], [place], [place]) Address [address] [place] [address] Care Team Providers Care Radiopharmacist Name Role Phone Eladio Lomas MD Unavailable Breanna Crow PA-C Unavailable [phone] Encounter Details Date Type Department Care Team (Late st Contact Info) Description 10/15/2021 Transcribed Document [facility] [place] [address] [place] [address] ProviderJailyn MD [address] [place] [address] Social History Tobacco Use Types [...] often do you attend chur ch or moravian services? Never 07/08/2022 Do you belong to [...] Conversion Note - Historical Provider, - 10/15/2021 12:00 AM CDT Patient: CORBIN HU Age: 71 years Sex: Male : 1950 Associated Diagnoses: Leg weakness; CLL (chronic lymphocytic leukemia); Hypertension; Elevated d-dimer Author: MATT WHITMAN MD Basic Information Time seen: Date & time 10/15/2021 00:00:00, Voice recognition / field laborer technology used for some documentation in this [...] CATH WINJX HRT ART& L VENTR IMG ([id number]).. Family history: Not significant. Social history: Social [...] EDT Height Source Stated Height Entry Format [place] Height/Length, BOLIVIAN (ft) 5 ft Height/Length BOLIVIAN 6 Inch CLINICALHEIGHT 167.64 cm [place] Body Weight 62.88 kg Weight Source, ED Critical estimated dosing weight Weight Entry Format [place] Weight Macanese lb 180 lb CLINICALWEIGHT 81.82 kg Body [...] Triage: ED C-SSRS: ED Clinical Reconciliation: ED semiconductor dies loader: ESR Sedimentation Rate Auto: Saline Lock Insert: [...] results: Computed tomography, interpretation: Preliminary Report NAME: CORBIN HU / SEX: 1950 / Male MRN / ACC#: [id number] / [id number] ORDERING PHYSICIAN: Matt Whitman. EXAM REQUESTED: [id number]--IO LUMBAR SPINE W/O CONTRAST FACILITY: [facility] DATE: 10/15/2021 RADIOLOGIST NAME: MD Lim Frank [...] findings in the report. , Eastern Time FWAyanna. Radiology results: X-ray, Right knee and foot, [...] treatment plan, Patient indicated understanding of instructions. Electronically signed by Huy [facility] Conversion Automotive Refinish Technician Cerner at 08/17/2022 6:02 PM CDT documented in this encounter Plan of Treatment Not on file documented as of this encounter Visit Diagnoses Not on filedocumented in this encounter Care Teams Radiopharmacist Relationship Specialty Start Date End Date Eladio Lomas MD [address] [address] Medical Oncologist Hematology and Oncology 07/08/22 Breanna Crow, PA-C [address] [place] [address] [place] [address] Physician Public Service Administrator Oncology 07/08/22 documented as of this encounter
--- OUTSIDE RECORDS SUMMARY | 2024-11-12 09:49 | XMS_ITS | Encounter Summary ---
Author Organization [employer] ([place], [place], [place], [place]) Address [address] [place] [address] Care Team Providers Care Motion Picture Commentator Name Role Phone Eladio Lomas MD Unavailable Breanna Crow PA-C Unavailable [phone] Encounter Details Date Type Department Care Team (Late st Contact Info) Description 10/16/2021 Transcribed Document [facility] [address] [place] [address] Romero Dias MD [address] [place] [address] Social History Tobacco Use Types Packs/Day Years [...] often do you attend chur ch or judaism services? Never 07/08/2022 Do you belong to any clubs o r organizations such as caodaism groups, unions, fraternal or athletic groups, or [...] Date Ata rded Speak language other than Romanian at home Not on file 05/13/2023 Want [...] Miscellaneous Notes * Cerner Conversion Note - Romero Dias MD - 10/16/2021 8:39 AM EDT Patient: SARAH HU Age: 71 years Sex: Male : 1950 Associated Diagnoses: None Author: ROMERO DIAS MD-SERENE Subjective CC: Right leg weakness [...] no evidence of a meningeal encephalitis or Braxton Hoover?? secondary to his varicella and I [...] Shortness of Breath Lovenox: 40 mg, SubCutaneous, [id number] MiraLax: 17 Gram, Oral, Daily, PRN: Constipation [...] mL inj 40 mg 0.4 mL, SubCutaneous, [id number] famotidine 20 mg tab 20 mg 1 [...] At risk for sleep apnea / IMO [id number] / Confirmed, Active Problems (2) At risk [...] lower motor neuron process.. Integumentary: Warm, Dry, [place]. Neurologic: Alert, Oriented, Cranial Nerves II-XII are [...] on filedocumented in this encounter Care Teams Motion Picture Commentator Relationship Specialty Start Date End Date Eladio Lomas MD [address] [address] Medical Oncologist Hematology and Oncology 07/08/22 Breanna Crow PA-C [address] [facility] [address] [place] [address] Physician News Reporter Oncology 07/08/22 documented as of this encounter
--- OUTSIDE RECORDS SUMMARY | 2024-11-12 09:49 | XMS_ITS | Encounter Summary ---
Author Organization [employer] ([place], [place], [place], [place]) Address [address] [place] [address] Care Team Providers Care Flange Turner Name Role Phone Eladio Lomas MD Unavailable Breanna Crow PA-C Unavailable [phone] Encounter Details Date Type Department Care Team (Late st Contact Info) Description 10/18/2021 Transcribed Document [facility] [place] Family Medicine [address] [place] [address] ProviderJailyn MD [address] [place] [address] Social History Tobacco Use Types [...] any clubs o r organizations such as adventism groups, unions, fraternal or athletic groups, or [...] Cerner Conversion Note - Historical Provider, - 10/18/2021 11:50 AM CDT Final Discharge [...] : Yes Discharge To Care Management : Home/Residential/Care Home or Self Care -01 ROMERO MCMANUS RN - Care Management - 10/18/2021 11:50 EDT Final Narrative Note Final Narrative Note : Rolling walker delivered to pt's room prior to d/c. [employer] [facility] packet and a copy of the ticket given to the pt. Walker was adjusted to the appropriate height. Pt d/c'd home with spouse to transport. ROMERO MCMANUS RN - Care Management - 10/18/2021 11:50 EDT documented in this encounter Plan of Treatment Not on file documented as of this encounter Visit Diagnoses Not on filedocumented in this encounter Care Teams Flange Turner Relationship Specialty Start Date End Date Eladio Lomas MD [address] [facility] [address] [place] [address] Medical Oncologist Hematology and Oncology 07/08/22 Breanna Crow PACecilia [address] [facility] [address] [place] [address] Physician Casino Cage Cashier Oncology 07/08/22 documented as of this encounter
--- OUTSIDE RECORDS SUMMARY | 2024-11-12 09:49 | XMS_ITS | Encounter Summary ---
Author Organization [employer] ([place], [place], [place], [place]) Address [address] [place] [address] Care Team Providers Care Arranging Funeral Director Name Role Phone Eladio Lomas MD Unavailable Breanna Crow PA-C Unavailable [phone] Encounter Details Date Type Department Care Team (Late st Contact Info) Description 12/29/2021 Transcribed Document [facility] [address] [place] [address] ProviderJailyn MD [address] [place] [address] Social History Tobacco Use Types [...] often do you attend chur ch or congregation services? Never 07/08/2022 Do you belong to any clubs o r organizations such as worship groups, unions, fraternal or athletic groups, or [...] rded Speak language other than Citizen [place] at home Not on file 05/13/2023 Want [...] Cerner Conversion Note - Historical Provider, - 12/29/2021 10:30 AM CDT Meds to Bed Enrollment Entered On: 12/29/2021 10:30 EDT Performed On: 12/29/2021 10:30 EDT by JOSELINE MIRAMONTES RN Meds to Bed Enrollment Patient Enrollment Decision: : Yes/enroll in meds to bed program JOSELINE MIRAMONTES RN - 12/29/2021 10:30 EDT Electronically signed by Huy [facility] Conversion Physician Chief Of Pathology Cerner at 08/17/2022 6:19 PM CDT documented in this encounter Plan of Treatment Not on file documented as of this encounter Visit Diagnoses Not on filedocumented in this encounter Care Teams Arranging Funeral Director Relationship Specialty Start Date End Date Eladio Lomas MD [address] [facility] [address] [address] Medical Oncologist Hematology and Oncology 07/08/22 Breanna Crow, PA-C [address] [facility] [address] [place] [address] Physician Carbonizer Oncology 07/08/22 documented as of this encounter
--- OUTSIDE RECORDS SUMMARY | 2024-11-12 09:49 | XMS_ITS | Encounter Summary ---
Author Organization [employer] ([place], [place], [place], [place]) Address [address] [place] [address] Care Team Providers Care Roofing Contractor Name Role Phone Eladio Lomas MD Unavailable Breanna Crow PA-C Unavailable [phone] Encounter Details Date Type Department Care Team (Late st Contact Info) Description 10/16/2021 Transcribed Document [facility] [place] Family Medicine [address] [place] [address] ProviderJailyn MD [address] [place] [address] Social History Tobacco Use Types [...] any clubs o r organizations such as evangelical groups, unions, fraternal or athletic groups, or [...] Date Ata rded Speak language other than Jordanian at home Not on file 05/13/2023 Want [...] Cerner Conversion Note - Historical Provider, - 10/16/2021 7:45 AM CDT Patient: SARAH [...] on filedocumented in this encounter Care Teams Roofing Contractor Relationship Specialty Start Date End Date Eladio Lomas MD [address] [address] Medical Oncologist Hematology and Oncology 07/08/22 Breanna Crow PA-C [address] [place] [address] [address] [place] [address] Physician Electronic Field Service Engineer Oncology 07/08/22 documented as of this encounter
--- OUTSIDE RECORDS SUMMARY | 2024-11-12 09:49 | XMS_ITS | Encounter Summary ---
Author Organization [employer] ([place], [place], [place], [place]) Address [address] [place] [address] Care Team Providers Care Analyst Programmer Name Role Phone Eladio Lomas MD Unavailable Breanna Crow PA-C Unavailable [phone] Encounter Details Date Type Department Care Team (Late st Contact Info) Description 10/18/2021 Transcribed Document [facility] [place] [address] [place] [address] ProviderJailyn MD [address] [place] [address] Social History Tobacco Use Types [...] often do you attend chur ch or temple services? Never 07/08/2022 Do you belong to any clubs o r organizations such as buddhist groups, unions, fraternal or athletic groups, or [...] Date Ata rded Speak language other than Omani at home Not on file 05/13/2023 Want [...] Conversion Note - Historical Provider, - 10/18/2021 11:18 AM CDT Patient: CORBIN [...] radiculopathy causing foot drop Wilberto Mayorga, PHYSICIAN-CLINIC TRENA PANIAGUA MD-INF - R leg weakness in the [...] MD 10/17/2021 11:52 EDT Electronically signed by Huy [facility] Conversion Neighborhood Service Center Director Cerner at 08/17/2022 5:59 PM CDT documented in this encounter Plan of Treatment Not on file documented as of this encounter Visit Diagnoses Not on filedocumented in this encounter Care Teams Analyst Programmer Relationship Specialty Start Date End Date Eladio Lomas MD [address] [facility] [address] [address] Medical Oncologist Hematology and Oncology 07/08/22 Breanna Crow PA-C [address] [facility] [address] [place] [address] Physician Outside Upholsterer Oncology 07/08/22 documented as of this encounter
--- OUTSIDE RECORDS SUMMARY | 2024-11-12 09:49 | XMS_ITS | Encounter Summary ---
Author Organization [employer] ([place], [place], [place], [place]) Address [address] [place] [address] Care Team Providers Care Learning Services Coordinator Name Role Phone Eladio Lomas MD Unavailable Breanna Crow PA-C Unavailable [phone] Encounter Details Date Type Department Care Team (Late st Contact Info) Description 12/29/2021 Transcribed Document [facility] [place] [address] [place] [address] ProviderJailyn MD [address] [place] [address] Social History Tobacco Use Types [...] any clubs o r organizations such as baptism groups, unions, fraternal or athletic groups, or [...] Date Ata rded Speak language other than Equatorial Guinean at home Not on file 05/13/2023 [...] Conversion Note - Historical Provider, - 12/29/2021 10:51 AM CDT PAT Adult [...] Oxygen Therapy Mode : Room air JOSELINE MIRMAONTES RN - 12/29/2021 10:51 EDT Pain Assessment Pain Assessment : Initial assessment Pain Scale Used : 0-[address] RN - 01/01/2022 10:40 EDT Height and Weight, Clinical Dosing Height Source : Stated Height Entry Format : [place] Height, Feet : 5 ft(Converted to: 152 cm, 60 Inch) Height, Inches : 6 Inch(Converted to: 0 ft 6 Inch, 15.24 cm) Clinical Height : 167.64 cm Weight Source : Standing scale Weight Entry Format : [place] Clinical Dosing Weight : 72.73 kg Weight, Pounds : 160 lb Body Surface Area (BSA) : 1.82 m2 Body Mass Index : 25.9 kg/m2 ([place]) [place] Body Weight : 63 kg JOSELINE MIRAMONTES [...] (Last Updated: 10/15/2021 05:34:35 EDT by CANDIDA GUO, DO-INT) Former smoker, quit more than 30 days [...] JOSELINE MIRAMONTES RN - 12/29/2021 10:51 EDT [place] Suicide Severity Rating Scale (C-SSRS) CSSRS Past [...] #2 Relationship : - Primary Language : Equatorial Guinean Communication Barrier : None 3D Artist Needed : No JOSELINE MIRAMONTES RN - [...] on filedocumented in this encounter Care Teams Learning Services Coordinator Relationship Specialty Start Date End Date Eladio Lomas MD 12[address] [facility] [address] [place] [address] Medical Oncologist Hematology and Oncology 07/08/22 Breanna Crow PA-C [address] [facility] [address] [place] [address] Physician Soda Drier Feeder Oncology 07/08/22 documented as of this encounter
--- OUTSIDE RECORDS SUMMARY | 2024-11-12 09:49 | XMS_ITS | Encounter Summary ---
Author Organization [employer] ([place], [place], [place], [place]) Address [address] [place] [address] Care Team Providers Care Hardwood Floor Refinisher Name Role Phone Eladio Lomas MD Unavailable Breanna Crow PA-C Unavailable [phone] Encounter Details Date Type Department Care Team (Late st Contact Info) Description 01/01/2022 Transcribed Document [facility] Family Medicine [address] [place] [address] ProviderJailyn MD [address] [place] [address] Social History Tobacco Use Types [...] often do you attend chur ch or jewish services? Never 07/08/2022 Do you belong to any clubs o r organizations such as latter-day groups, unions, fraternal or athletic groups, or [...] Date Ata rded Speak language other than Montenegrin at home Not on file 05/13/2023 Want [...] Conversion Note - Historical Provider, - 01/01/2022 12:30 PM CDT [facility] PreOp Summary Primary Physician: GARCIA WORKMAN MD-ORT Finalized Date/Time: 01/01/22 10:47:07 Pt. Name: SARAH HU /Sex: 1950 Male Med Rec #: [id number] Physician: GARCIA WORKMAN MD-ORT Financial #: [id number] Pt. Type: O Room/Bed: [facility] Admit/Disch: 01/01/22 09:26:00 - [place] [facility] [place] Case Times Entry 1 In Preop 01/01/22 07:55:00 Ready for Holding n/a Room Patient Ready for 01/01/22 10:10:00 Surgery Patient Out of Preop 01/01/22 10:37:00 Patient Out of n/a Holding Room Last Modified By: Ansley Lane RN 01/01/22 10:47:06 [place] PreOp Case Times Audit 01/01/22 10:47:06 Ditch Cleaner: [id number] Modifier: [id number] <+> 1 Patient Out of Preop Finalized By: Ansley Lane, RN Document Signatures Signed By: Ansley Lane RN 01/01/22 10:47 Electronically signed by Huy [facility] Conversion Manual Lathe Operator Cerner at 08/17/2022 6:02 PM CDT documented in this encounter Plan of Treatment Not on file documented as of this encounter Visit Diagnoses Not on filedocumented in this encounter Care Teams Hardwood Floor Refinisher Relationship Specialty Start Date End Date Eladio Lomas MD [address] [facility] [address], [place] [address] Medical Oncologist Hematology and Oncology 07/08/22 Breanna Crow PA-C [address] [facility] [address] [place] [address] Physician Germ Drier Oncology 07/08/22 documented as of this encounter
--- OUTSIDE RECORDS SUMMARY | 2024-11-12 09:49 | XMS_ITS | Encounter Summary ---
Author Organization [employer] ([place], [place], [place], [place]) Address [address] [place] [address] Care Team Providers Care Tank Officer Name Role Phone Eladio Lomas MD Unavailable Breanna Crow PA-C Unavailable [phone] Encounter Details Date Type Department Care Team (Late st Contact Info) Description 10/20/2021 Transcribed Document [facility] [place] Family Medicine [address] [place] [address] ProviderJailyn MD [address] [place] [address] Social History Tobacco Use Types [...] any clubs o r organizations such as yazidism groups, unions, fraternal or athletic groups, or [...] Date Ata rded Speak language other than Bolivian at home Not on file 05/13/2023 Want [...] Cerner Conversion Note - Historical Provider, - 10/20/2021 1:43 PM CDT UM Authorization Entered On: 10/20/2021 13:43 EDT Performed On: 10/20/2021 13:43 EDT by DIETER MAR RN Primary Insurance Authorization Authorization and Policy Numbers : Insurance 1 Health Plan: [employer] PPO Policy Number: [id number] Authorization Number: Insurance Primary Name : [employer] PPO [id number] Authorization Status-Primary : Denied Reference Number-Primary : [id number] Authorized Service Begin Date-Primary : 10/15/2021 EDT Authorization Comments-Primary : Emailed denial to [employer] Historical Authorization Comments-Primary : Comment 1: Rec faxed Denial from [employer] 10/19/21 Placed in tray on JTokalas desk (KEI JEAN-BAPTISTE, Numerologist 10/19/2021 13:08) Comment 2: [employer] PPO auth still pending per availity (JUANITA HUGO, RN-Utilization Review 10/19/2021 11:01) Comment 3: Clinicals faxed via [employer] (Natalie Lauren, Stephanie-Utilization Review 10/15/2021 09:30) Comment 4: [employer] PPO auth pending per Star note. (JUANITA HUGO, RN-Utilization Review 10/15/2021 09:18) DIETER MAR RN - 10/20/2021 13:43 EDT documented in this encounter Plan of Treatment Not on file documented as of this encounter Visit Diagnoses Not on filedocumented in this encounter Care Teams Tank Officer Relationship Specialty Start Date End Date Eladio Lomas MD 1210 [facility] [address] [place] [address] Medical Oncologist Hematology and Oncology 07/08/22 Breanna Crow PA-C [address] [facility] [address] [place] [address] Physician Physical Science Technician Oncology 07/08/22 documented as of this encounter
--- OUTSIDE RECORDS SUMMARY | 2024-11-12 09:49 | XMS_ITS | Encounter Summary ---
Author Organization [employer] ([place], [place], [place], [place]) Address [address] [place] [address] Care Team Providers Care Acid Cutter Name Role Phone Eladio Lomas MD Unavailable Breanna Crow PA-C Unavailable [phone] Encounter Details Date Type Department Care Team (Late st Contact Info) Description 10/18/2021 Transcribed Document [facility] [place] [address] [place] [address] ProviderJailyn MD [address] [place] [address] Social History Tobacco Use Types [...] Conversion Note - Historical Provider, - 10/18/2021 12:27 PM CDT Patient Education [...] intense exercise for several days. ??? Take gmmr-doy-kdfkomx and prescription medicines only as told by [...] not known. ??? Stay hydrated, and take vpcp-ghv-hhglyfh and prescription medicines only as told by your health care provider. This information is not intended to replace advice given to you by your health care provider. Make sure you discuss any questions you have with your health care provider. Document Revised: 09/03/2020 Document Reviewed: 09/03/2020 [employer] Patient Education ? 2020 [employer]. documented in this encounter Plan of Treatment Not on file documented as of this encounter Visit Diagnoses Not on filedocumented in this encounter Care Teams Acid Cutter Relationship Specialty Start Date End Date Eladio oLmas MD [address] [facility] [address] [place] [address] Medical Oncologist Hematology and Oncology 07/08/22 Breanna Crow PA-C [address] [facility] [address] [place] [address] Physician Roll Forming Machine Operator Oncology 07/08/22 documented as of this encounter
--- OUTSIDE RECORDS SUMMARY | 2024-11-12 09:49 | XMS_ITS | Encounter Summary ---
Author Organization [employer] ([place], [place], [place], [place]) Address [address] [place] [address] Care Team Providers Care Sleep Lab Technologist Name Role Phone Eladio Lomas MD Unavailable Breanna Crow PA-C Unavailable [phone] Encounter Details Date Type Department Care Team (Late st Contact Info) Description 10/16/2021 Transcribed Document [facility] [place] Family Medicine [address] [place] [address] ProviderJailyn MD [address] [place] [address] Social History Tobacco Use Types [...] Date Ata rded Speak language other than Salvadorean at home Not on file 05/13/2023 Want [...] Conversion Note - Historical Provider, - 10/16/2021 1:42 PM CDT Patient: SARAH [...] At risk for sleep apnea / IMO [id number] / Confirmed, Active Problems (2) At risk for sleep apnea Mitral valve prolapse Objective VS/Measurements Vitals Signs (last 24 hrs) Last Charted Minimum Maximum Temp 98.1 (CINDI 17 11:44) 97.4 (CINDI 17 06:00) 98.1 (CINDI 16 17:56) Mon HR [...] 99 (CINDI 16 17:56) Electronically signed by [facility], [facility] Conversion Steam Shovel Engineer Cerner at 08/17/2022 6:04 PM CDT documented in this encounter Plan of Treatment Not on file documented as of this encounter Visit Diagnoses Not on filedocumented in this encounter Care Teams Sleep Lab Technologist Relationship Specialty Start Date End Date Eladio Lomas MD [address] [facility] [address] [address] Medical Oncologist Hematology and Oncology 07/08/22 Breanan Crow PA-C [address] [facility] [address] [place] [address] Physician Podiatric Medicine Professor Oncology 07/08/22 documented as of this encounter
--- OUTSIDE RECORDS SUMMARY | 2024-11-12 09:49 | XMS_ITS | Encounter Summary ---
Author Organization [employer] ([place], [place], [place], [place]) Address [address] [place] [address] Care Team Providers Care Retail Loss Prevention Officer Name Role Phone Eladio Lomas MD Unavailable Breanna Crow PA-C Unavailable [phone] Encounter Details Date Type Department Care Team (Late st Contact Info) Description 10/16/2021 Transcribed Document [facility] [place] Family Medicine [address] [place] [address] ProvideraJilyn MD [address] [place] [address] Social History Tobacco Use Types [...] often do you attend chur ch or taoism services? Never 07/08/2022 Do you belong to [...] Conversion Note - Historical Provider, - 10/16/2021 3:13 PM CDT Consult Phone Call Documentation Entered On: 10/16/2021 17:46 EDT Performed On: 10/16/2021 15:13 EDT by Jessica Rivera, [facility] Unit Coord Phone Call for Consults Consult Phone Call/Page Attempt : First call Physician Covering for Consult : TRENA DONAHUE MD-INF Consult, Additional Information : Consult called in to Dr. Trena Donahue, he stated that if Dr Edwin Carver had not seen them today, he would see them tomorrow Jessica Rivera, [facility] Coord - 10/16/2021 17:43 EDT Electronically signed by [facility] Conversion Steel Crane Operator Cerner at 08/17/2022 6:08 PM CDT documented in this encounter Plan of Treatment Not on file documented as of this encounter Visit Diagnoses Not on filedocumented in this encounter Care Teams Retail Loss Prevention Officer Relationship Specialty Start Date End Date Eladio Lomas MD [address] [address] Medical Oncologist Hematology and Oncology 07/08/22 Breanna Crow, PA-C [address] [place] [address] [address] [place] [address] Physician Third Cook Oncology 07/08/22 documented as of this encounter
--- OUTSIDE RECORDS SUMMARY | 2024-11-12 09:49 | XMS_ITS | Encounter Summary ---
Author Organization [employer] ([place], [place], [place], [place]) Address [address] [place] [address] Care Team Providers Care Tugboat Engineer Name Role Phone Eladio Lomas MD Unavailable Breanna Crow PA-C Unavailable [phone] Encounter Details Date Type Department Care Team (Late st Contact Info) Description 10/17/2021 Transcribed Document [facility] [place] Family Medicine [address] [place] [address] ProviderJailyn MD [address] [place] [address] Social History Tobacco Use Types [...] Date Ata rded Speak language other than Icelandic at home Not on file 05/13/2023 Want [...] Conversion Note - Historical Provider, - 10/17/2021 12:59 PM CDT Patient: SARAH [...] lower motor neuron process.. Integumentary: Warm, Dry, [place]. Neurologic: Alert, Oriented, Cranial Nerves II-XII are [...] the rash. Leukocytosis, procalcitonin ordered. Disposition: Pending medical consultant recommendations and plans, still needs further [...] # 4.35 K/uL (High) 10/17/2021 02:21 EDT [place] % 15.2 % (High) 10/17/2021 02:21 EDT [place] # 2.14 K/uL (High) 10/17/2021 02:21 EDT [...] Second(s) 10/17/2021 02:21 EDT Electronically signed by [facility], [facility] Conversion Lump Receiver Cerner at 08/17/2022 6:20 PM CDT documented in this encounter Plan of Treatment Not on file documented as of this encounter Visit Diagnoses Not on filedocumented in this encounter Care Teams Tugboat Engineer Relationship Specialty Start Date End Date Eladio Lomas MD [address] [facility] [address] [place] [address] Medical Oncologist Hematology and Oncology 07/08/22 Breanna Crow PA-C [address] [facility] [address] [place] [address] Physician Racing Manager Oncology 07/08/22 documented as of this encounter
--- OUTSIDE RECORDS SUMMARY | 2024-11-12 09:49 | XMS_ITS | Encounter Summary ---
Author Organization [email or web address] ([place], [place], [place], [place]) Address [address] [place] [address] Care Team Providers Care Car Dumper Operator Helper Name Role Phone Eladio Lomas MD Unavailable Breanna Crow PA-C Unavailable [phone] Encounter Details Date Type Department Care Team (Late st Contact Info) Description 10/18/2021 Transcribed Document [facility] [place] Medicine [address] [place] [address] ProviderJailyn MD [address] [place] [address] Social History Tobacco Use Types [...] often do you attend chur ch or holiness services? Never 07/08/2022 Do you belong to any clubs o r organizations such as presybeterian groups, unions, fraternal or athletic groups, or [...] Conversion Note - Historical Provider, - 10/18/2021 2:35 PM CDT Nursing Discharge Summary Entered On: 10/18/2021 14:37 EDT Performed On: 10/18/2021 14:35 EDT by Celina Marley Non Emp endoscopy technican Documentation Discharge Date/Time : 10/18/2021 12:50 EDT [...] Non Emp RN - 10/18/2021 14:35 EDT documented in this encounter Plan of Treatment Not on file documented as of this encounter Visit Diagnoses Not on filedocumented in this encounter Care Teams Car Dumper Operator Helper Relationship Specialty Start Date End Date Eladio Lomas MD [address] [address] Medical Oncologist Hematology and Oncology 07/08/22 Breanna Crow PA-C [address] [facility] [address] [place] [address] Physician Gas Burner Operator Oncology 07/08/22 documented as of this encounter
--- OUTSIDE RECORDS SUMMARY | 2024-11-12 09:49 | XMS_ITS | Encounter Summary ---
Author Organization [employer] ([place], [place], [place], [place]) Address [address] [place] [address] Care Team Providers Care Athletic Field Custodian Name Role Phone Eladio Lomas MD Unavailable Breanna Crow PA-C Unavailable [phone] Encounter Details Date Type Department Care Team (Late st Contact Info) Description 10/16/2021 Transcribed Document [facility] [place] Family Medicine [address] [place] [address] ProviderJailyn MD [address] [place] [address] Social History Tobacco Use [...] often do you attend chur ch or mormon services? Never 07/08/2022 Do you belong to any clubs o r organizations such as mu-ism groups, unions, fraternal or athletic groups, or [...] Date Ata rded Speak language other than American at home Not on file 05/13/2023 Want [...] Conversion Note - Historical Provider, - 10/16/2021 10:09 AM CDT Attempt to [...] PRAVEEN SAUL OTR/Mikal - 10/16/2021 14:27 EDT Electronically signed by [facility], [facility] Conversion Parliamentary Librarian Cerner at 08/17/2022 6:05 PM CDT documented in this encounter Plan of Treatment Not on file documented as of this encounter Visit Diagnoses Not on filedocumented in this encounter Care Teams Athletic Field Custodian Relationship Specialty Start Date End Date Eladio Lomas MD [address] [facility] [address] [place] [address] Medical Oncologist Hematology and Oncology 07/08/22 Breanna Crow, PACecilia [address] [facility] [address] [place] [address] Physician Fusing Machine Tender Oncology 07/08/22 documented as of this encounter
--- OUTSIDE RECORDS SUMMARY | 2024-11-12 09:49 | XMS_ITS | Encounter Summary ---
Author Organization [employer] ([place], [place], [place], [place]) Address [address] [place] [address] Care Team Providers Care Manager Transfusion Name Role Phone Eladio Lomas MD Unavailable Breanna Crow PA-C Unavailable [phone] Encounter Details Date Type Department Care Team (Late st Contact Info) Description 10/16/2021 Transcribed Document [facility] [place] [address] [place] [address] ProviderJailyn MD [address] [place] [address] Social History Tobacco Use Types [...] any clubs o r organizations such as episcopalian groups, unions, fraternal or athletic groups, or [...] Date Ata rded Speak language other than Bahamian at home Not on file 05/13/2023 Want [...] Conversion Note - Historical Provider, - 10/16/2021 2:00 AM CDT Nurse Sexual Assault Details Entered On: 10/16/2021 4:15 EDT Performed On: 10/16/2021 2:00 EDT by Tessy Gramajo RN-PATIENT CARE BEDSIDE NON-EXEMPT Order Details Order Detail : N/A Patient Needs Meds Crushed/Liquid : No Tessy Gramajo RN-PATIENT CARE BEDSIDE NON-EXEMPT - 10/16/2021 4:15 EDT Electronically signed by [facility] Conversion Dog And Cat Food Cook Cerner at 08/17/2022 6:18 PM CDT documented in this encounter Plan of Treatment Not on file documented as of this encounter Visit Diagnoses Not on filedocumented in this encounter Care Teams Manager Transfusion Relationship Specialty Start Date End Date Eladio Lomas MD [address] [facility] [address] [address] Medical Oncologist Hematology and Oncology 07/08/22 Breanna Crow, PACecilia [address] [facility] [address] [place] [address] Physician Regulatory Assistant Oncology 07/08/22 documented as of this encounter
--- OUTSIDE RECORDS SUMMARY | 2024-11-12 09:49 | XMS_ITS | Encounter Summary ---
Author Organization [employer] ([place], [place], [place], [place]) Address [address] [place] [address] Care Team Providers Care Technician Preventative Medicine Name Role Phone Eladio Lomas MD Unavailable Breanna Crow PA-C Unavailable [phone] Encounter Details Date Type Department Care Team (Late st Contact Info) Description 10/19/2021 Transcribed Document [facility] [place] [address] [place] [address] ProviderJailyn MD [address] [place] [address] Social History Tobacco Use Types [...] often do you attend chur ch or caodaism services? Never 07/08/2022 Do you belong to [...] Date Ata rded Speak language other than Angolan at home Not on file 05/13/2023 Want [...] Cerner Conversion Note - Historical Provider, - 10/19/2021 11:01 AM CDT UM Authorization Entered On: 10/19/2021 11:02 EDT Performed On: 10/19/2021 11:01 EDT by JUANITA HUGO RN-Utilization Review Primary Insurance Authorization Authorization and Policy Numbers : Insurance 1 Health Plan: [employer] PPO Policy Number: [id number] Authorization Number: Insurance Primary Name : [employer] PPO [id number] Authorization Status-Primary : Awaiting callback Reference Number-Primary : [id number] Authorized Service Begin Date-Primary : 10/15/2021 EDT Authorization Comments-Primary : [employer] PPO auth still pending per availity Historical Authorization Comments-Primary : Comment 1: Clinicals faxed via [employer] (Natalie Lauren, Rn-Utilization Review 10/15/2021 09:30) Comment 2: [employer] PPO auth pending per [facility] note. (JUANITA HUOG, RN-Utilization Review 10/15/2021 09:18) JUANITA HUGO RN-Utilization Review - 10/19/2021 11:01 EDT documented in this encounter Plan of Treatment Not on file documented as of this encounter Visit Diagnoses Not on filedocumented in this encounter Care Teams Technician Preventative Medicine Relationship Specialty Start Date End Date Eladio Lomas MD [address] [facility] [address] [place] [address] Medical Oncologist Hematology and Oncology 07/08/22 Breanna Crow PA-C [address] [facility] [address] [place] [address] Physician Faro Dealer Oncology 07/08/22 documented as of this encounter
--- OUTSIDE RECORDS SUMMARY | 2024-11-12 09:49 | XMS_ITS | Encounter Summary ---
Author Organization [employer] ([place], [place], [place], [place]) Address [address] [place] [address] Care Team Providers Care Funeral Car Driver Name Role Phone Eladio Lomas MD Unavailable Breanna Crow PA-C Unavailable [phone] Encounter Details Date Type Department Care Team (Late st Contact Info) Description 10/16/2021 Transcribed Document [facility] [place] Family Medicine [address] [place] [address] ProviderJailyn MD [address] [place] [address] Social History Tobacco Use Types [...] often do you attend chur ch or adventism services? Never 07/08/2022 Do you belong to [...] Date Ata rded Speak language other than [place] Citizen at home Not on file 05/13/2023 Want [...] Conversion Note - Historical Provider, - 10/16/2021 2:40 PM CDT Patient: SARAH [...] lower motor neuron process.. Integumentary: Warm, Dry, [place]. Neurologic: Alert, Oriented, Cranial Nerves II-XII are [...] the setting of recent varicella. Disposition: Pending healthcare economics consultant recommendations and plan. May need rehab [...] Lymph # 3.37 K/uL 10/16/2021 04:00 EDT [place] % 19.5 % (High) 10/16/2021 04:00 EDT [place] # 2.25 K/uL (High) 10/16/2021 04:00 EDT [...] ng/mL 10/16/2021 04:00 EDT Electronically signed by [facility], [facility] Conversion Roll Up Operator Cerner at 08/17/2022 6:11 PM CDT documented in this encounter Plan of Treatment Not on file documented as of this encounter Visit Diagnoses Not on filedocumented in this encounter Care Teams Funeral Car Driver Relationship Specialty Start Date End Date Eladio Lomas MD [address] [facility] [address] [place] [address] Medical Oncologist Hematology and Oncology 07/08/22 Breanna Crow, PA-C [address] [place] [address] Physician Goat Herder Oncology 07/08/22 documented as of this encounter
--- OUTSIDE RECORDS SUMMARY | 2024-11-12 09:49 | XMS_ITS | Encounter Summary ---
Author Organization [employer] ([place], [place], [place], [place]) Address [address] [place] [address] Care Team Providers Care Night Shift Supervisor Name Role Phone Eladio Lomas MD Unavailable Breanna Crow PA-C Unavailable [phone] Encounter Details Date Type Department Care Team (Late st Contact Info) Description 10/18/[address] [facility] [place] Family Medicine [address] [place] [address] ProviderJailyn MD [address] [place] [address] Social History Tobacco Use Types [...] often do you attend chur ch or catholic services? Never 07/08/2022 Do you belong to any clubs o r organizations such as hoahaoism groups, unions, fraternal or athletic groups, or [...] Date Ata rded Speak language other than Japanese at home Not on file 05/13/2023 Want [...] Conversion Note - Historical Provider, - 10/18/2021 12:28 [place] [address] CORBIN HU :1950 Visit Time:10/15/2021 Your Visit Summary Your Care Team Admitting Physician - CANDIDA GUO DO-INT Attending Physician - CANDIDA GUO DO-INT [...] TRENA PANIAGUA When Within 2 weeks Where: [facility] [address] [address] Business (1) Medications What How Much When [...] 10 mg daily in total Pickup at [facility] #[id number] This evening predniSONE (predniSONE 10 mg oral tablet) See instructions Taper course of prednisone as following: First day 6 tabs, second day 5 tabs, third day 4 tabs, fourth day 3 tabs, fifth day 2 tabs, sixth day 1 tab, seventh half tab and eighth half tab Pickup at [facility] #[id number] This afternoon valACYclovir (Valtrex 500 mg oral [...] instructions 1 Oral Daily Tomorrow Pharmacy Information [id number]: [address] [place] [phone] Take your medications faithfully. Do NOT skip [...] intense exercise for several days. ??? Take inqw-eaa-tpnidmc and prescription medicines only as told by [...] not known. ??? Stay hydrated, and take wmel-qxp-ycoebbg and prescription medicines only as told by your health care provider. This information is not intended to replace advice given to you by your health care provider. Make sure you discuss any questions you have with your health care provider. Document Revised: 09/03/2020 Document Reviewed: 09/03/2020 [email or web address] Patient Education ?? 2020 [employer]. Emergency Awareness and Preventative Care [place] is [...] Assistance with quitting is available by contacting 6-675-HQGGNOW. This is a free resource providing counseling, [...] range between ( 1.0 and 7.0 ) [place] #: 2.80 K/uL -- Normal range between ( 0.24 and 0.82 ) [place] #: 0.00 K/uL -- Normal range between ( 0.04 and 0.54 ) [place] %: 17.6 % -- Normal range between [...] #: 4 K/uL ANC #: 5 K/uL [place] Percent Man: 19 % -- Normal range [...] US Veins LE Duplex LTD RT Patient Name:CORBIN HU I have received and understand this information and was given the opportunity to ask questions. Patient/Supervisor Pile Driving Name: Patient/Supervisor Pile Driving Signature: Relationship to Patient: Clinician/Hospital Supervisor Pile Driving Signature: Date: documented in this encounter Plan of Treatment Not on file documented as of this encounter Visit Diagnoses Not on filedocumented in this encounter Care Teams Night Shift Supervisor Relationship Specialty Start Date End Date Eladio Lomas MD [address] [facility] [address] [place] [address] Medical Oncologist Hematology and Oncology 07/08/22 Breanna Crow, PA-C [address] [address] Physician Roof Truss Detailer Oncology 07/08/22 documented as of this encounter
--- OUTSIDE RECORDS SUMMARY | 2024-11-12 09:49 | XMS_ITS | Encounter Summary ---
Author Organization [employer] ([place], [place], [place], [place]) Address [address] [place] [address] Care Team Providers Care Paper Coating Machine Operator Name Role Phone Eladio Lomas MD Unavailable Breanna Crow PA-C Unavailable [phone] Encounter Details Date Type Department Care Team (Late st Contact Info) Description 12/29/2021 Transcribed Document [facility] [place] [address] [place] [address] ProviderJailyn MD [address] [place] [address] Social History Tobacco Use Types [...] Date Ata rded Speak language other than Cook Islander at home Not on file 05/13/2023 [...] Conversion Note - Historical Provider, - 12/29/2021 11:00 AM CDT Patient: SARAH HU Age: 71 Years Sex: Male : 1950 Chief Complaint Low back pain Primary Care Provider BHAVANA ARTEAGA (REF), -[place] History of Present Illness This patient is [...] 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 Pt denies [...] # 7.60 K/uL (High) 12/29/2021 10:31 EDT [place] % 14.8 % (High) 12/29/2021 10:31 EDT [place] # 2.11 K/uL (High) 12/29/2021 10:31 EDT [...] pending Nicotine - pending Cotinine - pending Electronically signed by [facility], [facility] Conversion Supervisor Functional Testing Cerner at 08/17/2022 6:07 PM CDT documented in this encounter Plan of Treatment Not on file documented as of this encounter Visit Diagnoses Not on filedocumented in this encounter Care Teams Paper Coating Machine Operator Relationship Specialty Start Date End Date Eladio Lomas MD [address] [facility] [address] [place] [address] Medical Oncologist Hematology and Oncology 07/08/22 Breanna Crow PA-C [address] [place] [address] Physician Control Analyst Oncology 07/08/22 documented as of this encounter
--- OUTSIDE RECORDS SUMMARY | 2024-11-12 09:49 | XMS_ITS | Encounter Summary ---
Author Organization [employer] ([place], [place], [place], [place]) Address [address] [place] [address] Care Team Providers Care Senior It Project Manager Name Role Phone Eladio Lomas MD Unavailable Breanna Crow PA-C Unavailable [phone] Encounter Details Date Type Department Care Team (Late st Contact Info) Description 10/18/2021 Transcribed Document [facility] [place] Family Medicine [address] [place] [address] ProviderJailyn MD [address] [place] [address] Social History Tobacco Use Types [...] Date Ata rded Speak language other than Honduran at home Not on file 05/13/2023 Want [...] Conversion Note - Historical Provider, - 10/18/2021 2:00 AM CDT Concrete Mixing Plant Superintendent Details Entered On: 10/18/2021 2:19 EDT Performed [...] - 10/18/2021 2:19 EDT Electronically signed by [facility], [facility] Conversion Take Away Worker Cerner at 08/17/2022 6:13 PM CDT documented in this encounter Plan of Treatment Not on file documented as of this encounter Visit Diagnoses Not on filedocumented in this encounter Care Teams Senior It Project Manager Relationship Specialty Start Date End Date Eladio Lomas MD [address] [place] [address] Medical Oncologist Hematology and Oncology 07/08/22 Breanna Crow, PA-C [address] [facility] [address] [place] [address] Physician Oxidation Operator Oncology 07/08/22 documented as of this encounter
--- OUTSIDE RECORDS SUMMARY | 2024-11-12 09:49 | XMS_ITS | Encounter Summary ---
Author Organization [employer] ([place], [place], [place], [place]) Address [address] [place] [address] Care Team Providers Care Farmworkers Name Role Phone Eladio Lomas MD Unavailable Breanna Crow PA-C Unavailable [phone] Encounter Details Date Type Department Care Team (Late st Contact Info) Description 10/16/2021 Transcribed Document [facility] [place] [address] [place] [address] ProviderJailyn MD [address] [place] [address] Social History Tobacco Use Types [...] any clubs o r organizations such as samaritan groups, unions, fraternal or athletic groups, or [...] Date Ata rded Speak language other than Somali at home Not on file 05/13/2023 Want [...] Conversion Note - Historical Provider, - 10/16/2021 11:03 AM CDT On Going Discharge Planning Entered On: 10/16/2021 11:06 EDT Performed On: 10/16/2021 11:03 EDT by Luisa Zapien, RN Care Management Progress Note Discharge Arrangements : Patient Post-Acute Information Patient Name: CORBIN HU Gender: Male : 46 Age: 71 [...] Sent to Post Acute Providers : No [facility] Quality Web Info Shared w Pt/Fam : [...] - 10/16/2021 11:03 EDT Electronically signed by Harjeet Son Edenilson Aviation Warfare Systems Operator Nyasia at 08/17/2022 5:59 PM CDT documented in this encounter Plan of Treatment Not on file documented as of this encounter Visit Diagnoses Not on filedocumented in this encounter Care Teams Farmworkers Relationship Specialty Start Date End Date Eladio Lomas MD [address] [facility] [address] [place] [address] Medical Oncologist Hematology and Oncology 07/08/22 Breanna Crow PACecilia [address] [place], [place] [id number] Physician Garage Door Opener Installer Oncology 07/08/22 documented as of this encounter
--- OUTSIDE RECORDS SUMMARY | 2024-11-12 09:49 | XMS_ITS | Encounter Summary ---
Author Organization [employer] ([place], [place], [place], [place]) Address [address] [place] [address] Care Team Providers Care Aerospace Stress Engineer Name Role Phone Eladio Lomas MD Unavailable Breanna Crow PA-C Unavailable [phone] Encounter Details Date Type Department Care Team (Late st Contact Info) Description 10/16/2021 Transcribed Document [facility] [place] Family Medicine [address] [place] [address] ProviderJailyn MD [address] [place] [address] Social History Tobacco Use Types [...] often do you attend chur ch or faith services? Never 07/08/2022 Do you belong to any clubs o r organizations such as jew groups, unions, fraternal or athletic groups, or [...] Date Ata rded Speak language other than Indian at home Not on file 05/13/2023 Want [...] Conversion Note - Historical Provider, - 10/16/2021 5:00 PM CDT Chart Check - Review Order Profile Entered On: 10/16/2021 18:44 EDT Performed On: 10/16/2021 17:00 EDT by Celina Marley Non Emp RN Chart Check Powerplans Initiated/Discontinued as Appropriate : Yes All Active Orders Reviewed : Yes Celina Marley Non Emp RN - 10/16/2021 18:44 EDT Electronically signed by [facility] Conversion Cyber Analyst Cerner at 08/17/2022 6:20 PM CDT documented in this encounter Plan of Treatment Not on file documented as of this encounter Visit Diagnoses Not on filedocumented in this encounter Care Teams Aerospace Stress Engineer Relationship Specialty Start Date End Date Eladio Lomas MD [address] [facility] [address] [place] [address] Medical Oncologist Hematology and Oncology 07/08/22 Breanna Crow, PA-C [address] [facility] [address] [place] [address] Physician Hog Grader Oncology 07/08/22 documented as of this encounter
--- OUTSIDE RECORDS SUMMARY | 2024-11-12 09:49 | XMS_ITS | Encounter Summary ---
Author Organization [employer] ([place], [place], [place], [place]) Address [address] [place] [address] Care Team Providers Care Home Theater Specialist Name Role Phone Eladio Lomas MD Unavailable Breanna Crow PA-C Unavailable [phone] Encounter Details Date Type Department Care Team (Late st Contact Info) Description 10/29/2021 Transcribed Document [facility] [place] Family Medicine [address] [place] [address] ProviderJailyn MD [address] [place] [address] Social History Tobacco Use Types [...] often do you attend chur ch or sikh services? Never 07/08/2022 Do you belong to [...] Cerner Conversion Note - Historical Provider, - 10/29/2021 8:47 AM CDT UM Authorization Entered On: 10/29/2021 8:51 EDT Performed On: 10/29/2021 8:47 EDT by DIETER MAR RN Primary Insurance Authorization Authorization and Policy Numbers : Insurance 1 Health Plan: [employer] CHOICE PPO Policy Number: [id number] Authorization Number: Insurance Primary Name : [employer] CHOICE PPO [id number] Authorization Status-Primary : Denied Reference Number-Primary : [id number] Authorized Service Begin Date-Primary : 10/15/2021 EDT [...] 13:43) Comment 2: Rec faxed Denial from [facility] 10/19/21 Placed in tray on [employer] desk (KEI JEAN-BAPTISTE, Sorting Grapple Operator 10/19/2021 13:08) Comment 3: [employer] CHO[employer] PPO auth still pending per availity (JUANITA HUGO, SHARYN-Utilization Review 10/19/2021 11:01) Comment 4: Clinicals faxed via [employer] (Natalie Lauren, Sharyn-Utilization Review 10/15/2021 09:30) Comment 5: [employer] CHOICE PPO auth pending per Star note. (JUANITA HUGO RN-Utilization Review 10/15/2021 09:18) DIETER MAR RN - 10/29/2021 8:47 EDT documented in this encounter Plan of Treatment Not on file documented as of this encounter Visit Diagnoses Not on filedocumented in this encounter Care Teams Home Theater Specialist Relationship Specialty Start Date End Date Eladio Lomas MD [address] [facility] [address] [facility] [place] [facility] [place] [address] Medical Oncologist Hematology and Oncology 07/08/22 Breanna Crow, CHAVA [address] [address] Physician Mammalogy Teacher Oncology 07/08/22 documented as of this encounter
--- OUTSIDE RECORDS SUMMARY | 2024-11-12 09:49 | XMS_ITS | Encounter Summary ---
Author Organization [employer] ([place], [place], [place], [place]) Address [address] [place] [address] Care Team Providers Care Manager Of Human Resources Name Role Phone Eladio Lomas MD Unavailable Breanna Crow PA-C Unavailable [phone] Encounter Details Date Type Department Care Team (Late st Contact Info) Description 10/16/2021 Transcribed Document [facility] [place] [address] [place] [address] ProviderJailyn MD [address] [place] [address] Social History Tobacco Use Types [...] often do you attend chur ch or tenriism services? Never 07/08/2022 Do you belong to any clubs o r organizations such as lutheran groups, unions, fraternal or athletic groups, or [...] Date Ata rded Speak language other than Libyan at home Not on file 05/13/2023 Want [...] Magana, Physical Therapist - 10/16/2021 14:01 EDT Electronically signed by [facility] Conversion Cloth Folder Hand Cerner at 08/17/2022 5:59 PM CDT documented in this encounter Plan of Treatment Not on file documented as of this encounter Visit Diagnoses Not on filedocumented in this encounter Care Teams Manager Of Human Resources Relationship Specialty Start Date End Date Eladio Lomas MD 12[address] [facility] [address] [place] [address] Medical Oncologist Hematology and Oncology 07/08/22 Breanna Crow, PACecilia [address] [facility] [address] [place] [address] Physician Environmental Protection Officer Oncology 07/08/22 documented as of this encounter
--- OUTSIDE RECORDS SUMMARY | 2024-11-12 09:49 | XMS_ITS | Encounter Summary ---
Author Organization [employer] ([place], [place], [place], [place]) Address [address] [place] [address] Care Team Providers Care Shopping Investigator Name Role Phone Eladio Lomas MD Unavailable Breanna Crow PA-C Unavailable [phone] Encounter Details Date Type Department Care Team (Late st Contact Info) Description 10/19/2021 Transcribed Document [facility] [place] Family Medicine [address] [place] [address] ProviderJailyn MD [address] [place] [address] Social History Tobacco Use Types [...] Date Ata rded Speak language other than Chinese at home Not on file 05/13/2023 Want [...] Conversion Note - Historical Provider, - 10/19/2021 1:08 PM CDT UM Authorization Entered On: 10/19/2021 13:08 EDT Performed On: 10/19/2021 13:08 EDT by KEI JEAN-BAPTISTE Soda Maker Primary Insurance Authorization Authorization and Policy Numbers : Insurance 1 Health Plan: [employer] CHOICE PPO Policy Number: [id number] Authorization Number: Insurance Primary Name : [employer] CHOICE PPO [id number] Authorization Status-Primary : Denied Reference Number-Primary : [id number] Authorized Service Begin Date-Primary : 10/15/2021 EDT Authorization Comments-Primary : Rec faxed Denial from [employer] 10/19/21 Placed in tray on JJs desk Historical Authorization Comments-Primary : Comment 1: [employer] CHOICE PPO auth still pending per availity (JUANITA UHGO, SHARYN-Utilization Review 10/19/2021 11:01) Comment 2: Clinicals faxed via [employer] (Natalie Lauren, Rn-Utilization Review 10/15/2021 09:30) Comment 3: [employer] CHOICE PPO auth pending per Star note. (JUANITA HUGO, RN-Utilization Review 10/15/2021 09:18) KEI JEAN-BAPTISTE, Soda Maker - 10/19/2021 13:08 EDT Electronically signed by H[facility] Conversion Boiling Tub Operator Cerner at 08/17/2022 6:16 PM CDT documented in this encounter Plan of Treatment Not on file documented as of this encounter Visit Diagnoses Not on filedocumented in this encounter Care Teams Shopping Investigator Relationship Specialty Start Date End Date Eladio Lomas MD [address] [facility] [address] [place] [address] Medical Oncologist Hematology and Oncology 07/08/22 Breanna Crow PA-C [address] [facility] [address] [place] [address] Physician Sewing Machine Operator Floorperson Oncology 07/08/22 documented as of this encounter
--- OUTSIDE RECORDS SUMMARY | 2024-11-12 09:49 | XMS_ITS | Encounter Summary ---
Author Organization [employer] ([place], [place], [place], [place]) Address [address] [place] [address] Care Team Providers Care Road Contractor Name Role Phone Eladio Lomas MD Unavailable Breanna Crow PA-C Unavailable [phone] Encounter Details Date Type Department Care Team (Late st Contact Info) Description 10/18/2021 Transcribed Document [facility] [place] Family Medicine [address] [place] [address] ProviderJailyn MD [address] [place] [address] Social History Tobacco Use Types [...] any clubs o r organizations such as mosque groups, unions, fraternal or athletic groups, or [...] Date Ata rded Speak language other than Slovak at home Not on file 05/13/2023 Want [...] Historical Provider, - 10/18/2021 12:27 PM CDT Stroke/Warfarin Instructions Entered On: 10/18/2021 12:27 EDT Performed On: 10/18/2021 12:27 EDT by Celina Marley Non Emp RN Stroke/Warfarin Instructions Stroke/TIA Discharge Ins : N/A Warfarin Discharge Ins : N/A Celina Marley Non Emp RN - 10/18/2021 12:27 EDT Electronically signed by Huy [facility] Conversion Automatic Centrifugal Station Operator Cerner at 08/17/2022 6:01 PM CDT documented in this encounter Plan of Treatment Not on file documented as of this encounter Visit Diagnoses Not on filedocumented in this encounter Care Teams Road Contractor Relationship Specialty Start Date End Date Eladio Lomas MD [address] [address] Medical Oncologist Hematology and Oncology 07/08/22 Breanna Crow, PA-C [address] [facility] [address] [place] [address] Physician Ob Tech Oncology 07/08/22 documented as of this encounter
--- OUTSIDE RECORDS SUMMARY | 2024-11-12 09:49 | XMS_ITS | Encounter Summary ---
Author Organization [employer] ([place], [place], [place], [place]) Address [address] [place] [address] Care Team Providers Care Inspector Wire Rope Name Role Phone Eladio Lomas MD Unavailable Breanna Crow PA-C Unavailable [phone] Encounter Details Date Type Department Care Team (Late st Contact Info) Description 10/26/2021 Transcribed Document [facility] [place] [address] [place] [address] ProviderJailyn MD [address] [place] [address] Social History Tobacco Use Types [...] any clubs o r organizations such as moravian groups, unions, fraternal or athletic groups, or [...] Cerner Conversion Note - Historical Provider, - 10/26/2021 3:12 PM CDT CLINICAL DOCUMENTATION [...] Discharge Summary on 10/18/2021 by Wilberto Brantley CDS/Salesperson Stereo Equipment Signature: Gui Hughes. Mehreen Phone #: Date/Time: 10/27/2021 00:42 This is a permanent part of the Medical Record Q55 2020 [employer] Reviewed: 07/2020 Q55 2020 [employer] Reviewed: 07/2020 Electronically signed by Huy, [facility] Conversion Vehicle Modification Technician Cerner at 08/17/2022 6:04 PM CDT documented in this encounter Plan of Treatment Not on file documented as of this encounter Visit Diagnoses Not on filedocumented in this encounter Care Teams Inspector Wire Rope Relationship Specialty Start Date End Date Eladio Lomas MD 12[address] [facility] [address] [place] [address] Medical Oncologist Hematology and Oncology 07/08/22 Breanna Crow, PACecilia [address] [facility] [address] [place] [address] Physician Supervisor Locomotive Oncology 07/08/22 documented as of this encounter
[2024-11-12 10:11] LABS: Hematocrit 36.9 % (42.0-52.0); Hemoglobin 10.4 g/dL (14.1-18.0); Mean Corpuscular HGB Conc 28.2 g/dL (31.8-35.4); Mean Corpuscular Hemoglobin 30.4 pg (27.0-31.2); Mean Corpuscular Volume 107.9 fl (80-94); Platelet Count 143 K/mm3 (142-424); Red Blood Count 3.42 M/mm3 (4.60-6.20)
[2024-11-12 10:23] LABS: White Blood Count 183.6 K/mm3 (4.8-10.8)
[2024-11-12 10:32] LABS: Alanine Aminotransferase 16 U/L (12-78); Albumin Level 3.9 g/dl (3.5-5.0); Albumin/Globulin Ratio 2.2 (1.1-1.8); Alkaline Phosphatase 73 U/L (38-126); Anion Gap 12.2 mEq/L (5-15); Aspartate Amino Transferase 18 U/L (17-59); Bilirubin,Total 0.4 mg/dl (0.2-1.3); Blood Urea Nitrogen 24 mg/dl (9-20); Calcium 9.2 mg/dl (8.4-10.2); Carbon Dioxide 31 mmol/L (22.0-30.0); Chloride 101 mmol/L (98-107); Creatinine,Serum 0.90 mg/dl (0.66-1.25); Estimated Glomerular Filt Rate 82 ml/min (>60); GFR (African American) 99 ML/MIN (>60); Globulin 1.8 g/dL (1.3-3.2); Glucose 91 mg/dl (74-100); Potassium 5.2 mmoL/L (3.5-5.1); Sodium 139 mmol/L (136-145); Total Protein,Serum 5.7 g/dl (6.3-8.2)
[2024-11-12 10:40] LABS: Macrocytosis 2+; Total Cells Counted 100
[2024-11-12 10:41] LABS: Anisocytosis 2+; Hypochromasia 3+
== END 2024-11-12 23:59 | disposition home or self-care (01) ==
LOC: LAB 09:44
PROVIDERS: PCP Family Medicine; Visit Provider Internal Medicine Medical Oncology
DX: C91.12 Chronic lymphocytic leukemia of B-cell type in relapse (principal)
CPT/HCPCS: 36415; 80053; 83615; 85007; 85014; 85018; 85048; 85049

== ENCOUNTER 2024-11-22 10:01 | Outpatient (CLI) | payer MEDICARE, SELFPAY ==
--- OUTSIDE RECORDS SUMMARY | 2024-11-22 10:04 | XMS_ITS | Encounter Summary ---
Author Organization [employer] ([place], [place], [place], [place]) Address [address] [place] [address] Care Team Providers Care Diversional Therapist Name Role Phone Eladio Lomas MD Unavailable Breanna Crow PA-C Unavailable [phone] Encounter Details Date Type Department Care Team (Late st Contact Info) Description 10/17/2021 Transcribed Document [facility] [place] Family Medicine [address] [place] [address] ProviderJailyn MD [address] [place] [address] Social History Tobacco Use Types [...] # 4.35 K/uL (High) 10/17/2021 02:21 EDT [place] % 15.2 % (High) 10/17/2021 02:21 EDT [place] # 2.14 K/uL (High) 10/17/2021 02:21 EDT [...] on filedocumented in this encounter Care Teams Diversional Therapist Relationship Specialty Start Date End Date Eladio Lomas MD 12[address] [facility] [address] [place] [address] Medical Oncologist Hematology and Oncology 07/08/22 Breanna Crow PA-C [address] [facility] [address] [place] [address] Physician Assistant Curator Oncology 07/08/22 documented as of this encounter
--- OUTSIDE RECORDS SUMMARY | 2024-11-22 10:04 | XMS_ITS | Encounter Summary ---
Author Organization [employer] ([place], [place], [place], [place]) Address [address] [place] [address] Care Team Providers Care Field Crew Chief Name Role Phone Eladio Lomas MD Unavailable Breanna Crow PA-C Unavailable [phone] Encounter Details Date Type Department Care Team (Late st Contact Info) Description 10/17/2021 Transcribed Document [facility] [place] Family Medicine [address] [place] [address] ProviderJailyn MD [address] [place] [address] Social History Tobacco Use Types [...] often do you attend chur ch or latter day services? Never 07/08/2022 Do you belong to any clubs o r organizations such as voodoo groups, unions, fraternal or athletic groups, or [...] Date Ata rded Speak language other than Cymraes at home Not on file 05/13/2023 Want [...] fall prompting him to come to [facility] ED on 10/15. He was admitted for concerns of Claudia Hogeland Syndrome. A CT scan of lumbar spine [...] with pancreatic cancer SH: , lives in [place], [place]. Former remotes smoker, denies alcohol, or [...] 16) 14.0 (CINDI 16) HCT L 40.0 (CNIDI 18) 41.8 (CINDI 17) 40.8 (CINDI 16) [...] None Rad: Radiology Results (Last 48 hours) [id number] -- 10/15/2021 03:06 MRI Spine Thoracic WO [...] Christos Farris PA-C for Dr. Trena Donahue. documented in this encounter Plan of Treatment Not on file documented as of this encounter Visit Diagnoses Not on filedocumented in this encounter Care Teams Field Crew Chief Relationship Specialty Start Date End Date Eladio Lomas MD 1210 [facility] [address] [place] [address] Medical Oncologist Hematology and Oncology 07/08/22 Breanna Crow PA-C [address] [facility] [address] [place] [address] Physician Supervisor Scrap Preparation Oncology 07/08/22 documented as of this encounter
--- OUTSIDE RECORDS SUMMARY | 2024-11-22 10:04 | XMS_ITS | Encounter Summary ---
Author Organization [employer] ([place], [place], [place], [place]) Address [address] [place] [address] Care Team Providers Care Multi Site Leasing Consultant Name Role Phone Eladio Lomas MD Unavailable Breanna Crow PA-C Unavailable [phone] Encounter Details Date Type Department Care Team (Late st Contact Info) Description 10/17/2021 Transcribed Document [facility] [place] Family Medicine [address] [place] [address] ProviderJailyn MD [address] [place] [address] Social History Tobacco Use Types [...] often do you attend chur ch or jain services? Never 07/08/2022 Do you belong to [...] rded Speak language other than Citizen Of The [place] at home Not on file 05/13/2023 Want [...] to assume that as it was a agitator operator who did the biopsy, and and [...] At risk for sleep apnea / IMO [id number] / Confirmed, Active Problems (2) At risk for sleep apnea Mitral valve prolapse documented in this encounter Plan of Treatment Not on file documented as of this encounter Visit Diagnoses Not on filedocumented in this encounter Care Teams Multi Site Leasing Consultant Relationship Specialty Start Date End Date Eladio Lomas MD 1210 [facility] [address] [place] [address] Medical Oncologist Hematology and Oncology 07/08/22 Breanna Crow PA-C [address] [address] Physician Mailroom Associate Oncology 07/08/22 documented as of this encounter
--- OUTSIDE RECORDS SUMMARY | 2024-11-22 10:04 | XMS_ITS | Clinical Summary ---
Author Organization [facility] Address [address] [place] [address] Care Team Providers Care Knockdown Worker Name Role Phone Provider, No Known Primary Care Provider Unavail able Social History Tobacco Use Types Packs/Day Years Used Date Smoking Tobacco: Never Assessed Abuse Screen Answer Date Recorded Unsafe at Home or Work/School Not on file Feels Threatened by Someone? Not on file Does Anyone Keep You from Co ntacting Others or Doint Things Outside the Home? Not on file 02/11/2023 Physical Sign of Abuse Present Not on file 1 Housing Stability Answer Date Recorded Current Living Arrangements Not on file 01/30 Potentially Unsafe Housing Conditions Not on jalen e 02/11/2023 Family and Community Support Answer Min e Recorded Help with Day-to-Day Activities Not on file 02/11/2023 Lonely or Isolated Not on file 02/11/2023 Employment Answer Date Recorded Do you want help finding or keeping work or a amaya b? Not on file 02/11/2023 Disabilities Answer Date Recorded Concentrating, Remembering, or Making Decisions Difficulty Not on file 02/11/2023 Doing Errands Independently Difficulty Not on fi le 02/11/2023 Education Answer Date Recorded Help with school or training? Not on file Preferred Language Not on file 02/11/2023 Sex and Gender Information Value Date Recorded Sex Assigned at Not on file Legal Sex Male 6:55 PM EDT Gender Identity Not on file Sexual Orientation Not on file Plan of Treatment Health Maintenance Due Date Last Done Comments ANNUAL PHYSICAL 1950 HEPATITIS C SCREENING 1950 TDAP/TD VACCINES (1 - Tdap) 01/05/1967 Pneumococcal Vaccine 50+ (1 of 1 - PCV) 01/05/1998 ZOSTER VACCINE (1 of 2) 01/05/1998 RSV Vaccine - Adults (1 - 1- dose 75+ series) 01/05/2023 COVID-19 Vaccine (3 - 2023-2 5 season) 2024 07/25/2020, 06/11/2020 INFLUENZA VACCINE 01/30/2025 02/05/2021, , 01/17/2020, Additional history exists Insurance [facility] MEDICARE ADVANTAGE Care Teams Knockdown Worker Relationship Specialty Start Date End Date Provider, No Known [facility] [place] [address] PCP - General 10/07/21
--- OUTSIDE RECORDS SUMMARY | 2024-11-22 10:04 | XMS_ITS | Encounter Summary ---
Author Organization [employer] ([place], [place], [place], [place]) Address [address] [place] [address] Care Team Providers Care Transport Manager Name Role Phone Eladio Lomas MD Unavailable Breanna Crow PA-C Unavailable [phone] Encounter Details Date Type Department Care Team (Late st Contact Info) Description 10/17/2021 Transcribed Document [facility] Medicine [address] [place] [address] ProviderJailyn MD [address] [place] [address] Social History Tobacco Use Types [...] often do you attend chur ch or druze services? Never 07/08/2022 Do you belong to [...] Date Ata rded Speak language other than Senegalese at home Not on file 05/13/2023 Want [...] Historical Provider, - 10/17/2021 2:00 AM CDT Cda Teacher Details Entered On: 10/17/2021 5:10 EDT Performed [...] - 10/17/2021 5:09 EDT Electronically signed by [facility] Conversion Medical Operations Supervisor Cerner at 08/17/2022 6:17 PM CDT documented in this encounter Plan of Treatment Not on file documented as of this encounter Visit Diagnoses Not on filedocumented in this encounter Care Teams Transport Manager Relationship Specialty Start Date End Date Eladio Lomas MD [address] [place] [address] Medical Oncologist Hematology and Oncology 07/08/22 Breanna Crow, PA-C [address] [facility] [address] [place] [address] Physician Milling Planer Operator Oncology 07/08/22 documented as of this encounter
--- OUTSIDE RECORDS SUMMARY | 2024-11-22 10:04 | XMS_ITS | Referral Summary ---
Author Organization [employer] ([place], [place], [place], [place]) Address [address] [place] [address] Care Team Providers Care Architecture Manager Name Role Phone Eladio Lomas MD Unavailable Breanna Crow PA-C Unavailable [phone] Allergies Active Allergy Reactions Criticality Noted [...] any clubs o r organizations such as orthodox groups, unions, fraternal or athletic groups, or [...] Plan of Treatment [place] [address] [facility] MEDICARE PPO [employer] MEDICARE PPO Care Teams Architecture Manager Relationship Specialty Start Date End Date Eladio Lomas MD 1210 [facility] [address] [place] [address] Medical Oncologist Hematology and Oncology 07/08/22 Breanna Crow PA-C [address] [facility] [address] [place] [address] Physician Water Resource Specialist Oncology 07/08/22
--- OUTSIDE RECORDS SUMMARY | 2024-11-22 10:04 | XMS_ITS | Encounter Summary ---
Author Organization [employer] ([place], [place], [place], [place]) Address [address] [place] [address] Care Team Providers Care Ring Cutter Lathe Operator Name Role Phone Eladio Lomas MD Unavailable Breanna Crow PA-C Unavailable [phone] Encounter Details Date Type Department Care Team (Late st Contact Info) Description 10/17/2021 Transcribed Document [facility] [place] Family Medicine [address] [place] [address] ProviderJailyn MD [address] [place] [address] Social History Tobacco Use Types [...] on filedocumented in this encounter Care Teams Ring Cutter Lathe Operator Relationship Specialty Start Date End Date Eladio Lomas MD 1210 [facility] [address] [place] [address] Medical Oncologist Hematology and Oncology 07/08/22 Breanna Crow PA-C [address] [facility] [address] [place] [address] Physician Die Engraver Oncology 07/08/22 documented as of this encounter
--- OUTSIDE RECORDS SUMMARY | 2024-11-22 10:04 | XMS_ITS | Encounter Summary ---
Author Organization [employer] ([place], [place], [place], [place]) Address [address] [place] [address] Care Team Providers Care Desktop Support Manager Name Role Phone Eladio Lomas MD Unavailable Breanna Crow PA-C Unavailable [phone] Encounter Details Date Type Department Care Team (Late st Contact Info) Description 10/15/2021 Transcribed Document [facility] [place] Family Medicine [address] [place] [address] ProviderJailyn MD [address] [place] [address] Social History Tobacco Use Types [...] Date Ata rded Speak language other than Canadian at home Not on file 05/13/2023 Want [...] on filedocumented in this encounter Care Teams Desktop Support Manager Relationship Specialty Start Date End Date Eladio Lomas MD 1210 [facility] [address] [address] Medical Oncologist Hematology and Oncology 07/08/22 Breanna Crow PACecilia [address] [place] [address] [address] [place] [address] Physician Credit Balance Specialist Oncology 07/08/22 documented as of this encounter
--- OUTSIDE RECORDS SUMMARY | 2024-11-22 10:04 | XMS_ITS | Clinical Summary ---
Author Organization [employer] ([place], [place], [place], [place]) Address [address] [place] [address] Care Team Providers Care Power Generation Turbine Room Operator Name Role Phone Eladio Lomas MD Unavailable Breanna Crow PA-C Unavailable [phone] Allergies Active Allergy Reactions Criticality Noted [...] any clubs o r organizations such as orthodoxy groups, unions, fraternal or athletic groups, or [...] Date Ata rded Speak language other than Israeli at home Not on file 05/13/2023 Want [...] exists Pneumococcal 50+ years Completed 02/09/2022 Insurance [employer] MEDICARE PPO HUMANA MEDICARE PPO Care Teams Power Generation Turbine Room Operator Relationship Specialty Start Date End Date Eladio Lomas MD 1210 [facility] [address] [place] [address] Medical Oncologist Hematology and Oncology 07/08/22 Breanna Crow PARebelC [address] [facility] [address] [place] [address] Physician Application Trainer Oncology 07/08/22
--- OUTSIDE RECORDS SUMMARY | 2024-11-22 10:05 | XMS_ITS | Encounter Summary ---
Author Organization [employer] ([place], [place], [place], [place]) Address [address] [place] [address] Care Team Providers Care Sock Liner Name Role Phone Eladio Lomas MD Unavailable Breanna Crow PA-C Unavailable [phone] Encounter Details Date Type Department Care Team (Late st Contact Info) Description 10/15/2021 Transcribed Document [facility] [place] [address] [place] [address] ProviderJailyn MD [address] [place] [address] Social History Tobacco Use Types [...] Date Ata rded Speak language other than New Zealander at home Not on file 05/13/2023 Want [...] - Medical Enoxaparin 40 mg, SubCutaneous, Inj, [id number], Routine, Start 10/15/21 7:00:00 EDT, 10/15/21 6:07:00 [...] ALYC # 4 K/uL 10/15/2021 00:19 EDT [facility] Percent Man 19 % (High) 10/15/2021 00:19 [...] ACLS, Continuous Order Electronically signed by Interface, [facility] Conversion Supervisor Felting Cerner at 08/17/2022 5:58 PM CDT documented in this encounter Plan of Treatment Not on file documented as of this encounter Visit Diagnoses Not on filedocumented in this encounter Care Teams Sock Liner Relationship Specialty Start Date End Date Eladio Lomas MD 1210 [facility] [address] [place] [address] Medical Oncologist Hematology and Oncology 07/08/22 Breanna Crow PARebelC [address] [facility] [address] [place] [address] Physician Day Habilitation Specialist Oncology 07/08/22 documented as of this encounter
--- OUTSIDE RECORDS SUMMARY | 2024-11-22 10:05 | XMS_ITS | Encounter Summary ---
Author Organization [employer] ([place], [place], [place], [place]) Address [address] [place] [address] Care Team Providers Care Barrel Brander Name Role Phone Eladio Lomas MD Unavailable Breanna Crow PA-C Unavailable [phone] Encounter Details Date Type Department Care Team (Late st Contact Info) Description 10/15/2021 Transcribed Document [facility] [place] Family Medicine [address] [place] [address] ProviderJailyn MD [address] [place] [address] Social History Tobacco Use Types [...] often do you attend chur ch or hoahaoism services? Never 07/08/2022 Do you belong to [...] Date Ata rded Speak language other than Belizean at home Not on file 05/13/2023 Want [...] Meghann Scott Rn - 10/15/2021 9:30 EDT documented in this encounter Plan of Treatment Not on file documented as of this encounter Visit Diagnoses Not on filedocumented in this encounter Care Teams Barrel Brander Relationship Specialty Start Date End Date Eladio Lomas MD 1210 [facility] [address] [place] [address] Medical Oncologist Hematology and Oncology 07/08/22 Breanna Crow PA-C [address] [facility] [address] [place] [address] Physician Keg Filler Oncology 07/08/22 documented as of this encounter
--- OUTSIDE RECORDS SUMMARY | 2024-11-22 10:05 | XMS_ITS | Encounter Summary ---
Author Organization [employer] ([place], [place], [place], [place]) Address [address] [place] [address] Care Team Providers Care Day Trader Name Role Phone Eladio Lomas MD Unavailable Breanna Crow PA-C Unavailable [phone] Encounter Details Date Type Department Care Team (Late st Contact Info) Description 10/15/2021 Transcribed Document [facility] [place] [address] [place] [address] ProviderJailyn MD [address] [place] [address] Social History Tobacco Use Types [...] often do you attend chur ch or yarsani services? Never 07/08/2022 Do you belong to any clubs o r organizations such as oriental orthodox groups, unions, fraternal or athletic groups, [...] Date Ata rded Speak language other than Greek at home Not on file 05/13/2023 Want [...] - 10/15/2021 4:49 EDT Electronically signed by Maria F[facility] Conversion Honeycomb Decapper Cerner at 08/17/2022 6:13 PM CDT documented in this encounter Plan of Treatment Not on file documented as of this encounter Visit Diagnoses Not on filedocumented in this encounter Care Teams Day Trader Relationship Specialty Start Date End Date Eladio Lomas MD [address] [address] Medical Oncologist Hematology and Oncology 07/08/22 Breanna Crow PACecilia [address] [facility] [address] [place] [address] Physician Apparel Patternmaker Oncology 07/08/22 documented as of this encounter
--- OUTSIDE RECORDS SUMMARY | 2024-11-22 10:05 | XMS_ITS | Encounter Summary ---
Author Organization [employer] ([place], [place], [place], [place]) Address [address] [place] [address] Care Team Providers Care Production Control Coordinating Clerk Name Role Phone Eladio Lomas MD Unavailable Breanna Crow PA-C Unavailable [phone] Encounter Details Date Type Department Care Team (Late st Contact Info) Description 10/15/2021 Transcribed Document [facility] [place] [address] [place] [address] ProviderJailyn MD [address] [place] [address] Social History Tobacco Use Types [...] Date Ata rded Speak language other than Burmese at home Not on file 05/13/2023 Want [...] At risk for sleep apnea / IMO [id number] / Confirmed, Active Problems (2) At risk for sleep apnea Mitral valve prolapse Objective VS/Measurements Measurements from flowsheet : Measurements 10/15/2021 4:48 EDT Height Source Stated Height Entry Format Troup Height/Length, GEORGIAN (ft) 5 ft Height/Length GEORGIAN 6 Inch CLINICALHEIGHT 167.64 cm Port Tobacco Body Weight 63 kg Weight Source Bed scale Weight Entry Format Troup Weight Burmese lb 131 lb Weight Burmese oz 5 oz CLINICALWEIGHT 59.69 kg Body Surface Area (BSA) 1.67 m2 Body Mass Index 21.2 kg/m2 10/15/2021 3:09 EDT Height Source Not Done: Task Duplication (Not Done) Height Entry Format Not Done: Task Duplication (Not Done) Weight Source Not Done: Task Duplication (Not Done) 10/14/2021 18:31 EDT Height Source Stated Height Entry Format Troup Height/Length, GEORGIAN (ft) 5 ft Height/Length GEORGIAN 6 Inch CLINICALHEIGHT 167.64 cm Port Tobacco Body Weight 62.88 kg Weight Source, ED Critical estimated dosing weight Weight Entry Format Troup Weight Burmese lb 180 lb CLINICALWEIGHT 81.82 kg Body Surface Area (BSA) 1.91 m2 Body Mass Index 29.1 kg/m2 HI documented in this encounter Plan of Treatment Not on file documented as of this encounter Visit Diagnoses Not on filedocumented in this encounter Care Teams Production Control Coordinating Clerk Relationship Specialty Start Date End Date Eladio Lomas MD 1210 [facility] [address] [place] [address] Medical Oncologist Hematology and Oncology 07/08/22 Breanna Crow, PARebelC [address] [facility] [address] [place] [address] Physician Director Of Managed Care Oncology 07/08/22 documented as of this encounter
--- OUTSIDE RECORDS SUMMARY | 2024-11-22 10:05 | XMS_ITS | Encounter Summary ---
Author Organization [employer] ([place], [place], [place], [place]) Address [address] [place] [address] Care Team Providers Care Cook Night Name Role Phone Eladio Lomas MD Unavailable Breanna Crow PA-C Unavailable [phone] Encounter Details Date Type Department Care Team (Late st Contact Info) Description 10/14/2021 Transcribed Document [facility] [place] Family Medicine [address] [place] [address] ProviderJailyn MD [address] [place] [address] Social History Tobacco Use Types [...] Temperature : Warm Skin Description : Dry, Lloyd FLORA SOUZA RN - 10/15/2021 1:37 EDT ED General-Functional Assess Information Obtained From : Patient Communication Barrier : None Primary Language : Bermudian Any Spiritual/Cultural Needs or Requests : No [...] FLORA SOUZA RN - 10/15/2021 1:37 EDT [place] Coma Dejuan Best Motor Response : Obey commands Dejuan Best Verbal Response : Oriented [place] Eye Opening Response : Spontaneous [place] Coma Score : 15 FLORA SOUZA RN - 10/15/2021 1:37 EDT Electronically signed by Huy [facility] Conversion Metal Furniture Assembler Cerner at 08/17/2022 6:19 PM CDT documented in this encounter Plan of Treatment Not on file documented as of this encounter Visit Diagnoses Not on filedocumented in this encounter Care Teams Cook Night Relationship Specialty Start Date End Date Eladio Lomas MD 1210 [facility] [address] [place] [address] Medical Oncologist Hematology and Oncology 07/08/22 Breanna Crow PA-C [address] [facility] [address] [place] [address] Physician Cycle Analyst Oncology 07/08/22 documented as of this encounter
--- OUTSIDE RECORDS SUMMARY | 2024-11-22 10:05 | XMS_ITS | Encounter Summary ---
Author Organization [employer] ([place], [place], [place], [place]) Address [address] [place] [address] Care Team Providers Care Control Inspector Name Role Phone Eladio Lomas MD Unavailable Breanna Crow PA-C Unavailable [phone] Encounter Details Date Type Department Care Team (Late st Contact Info) Description 10/15/2021 Transcribed Document [facility] [place] Family Medicine [address] [place] [address] ProviderJailyn MD [address] [place] [address] Social History Tobacco Use Types [...] often do you attend chur ch or sabianism services? Never 07/08/2022 Do you belong to any clubs o r organizations such as holiness groups, unions, fraternal or athletic groups, or [...] Date Ata rded Speak language other than Mauritian at home Not on file 05/13/2023 Want [...] Health Plan: HU[employer]NA CHOICE PPO Policy Number: [id number] Authorization Number: Insurance Primary Name : HU[employer]NA CHOICE PPO [id number] Authorization Status-Primary : Pending Reference Number-Primary : [id number] Authorized Service Begin Date-Primary : 10/15/2021 EDT Authorization Comments-Primary : HUMANA CHOICE PPO auth pending per Star note. Historical Authorization Comments-Primary : No Authorization Comments Found JUANITA HUGO RN-Utilization Review - 10/15/2021 9:18 EDT Electronically signed by [employer] Conversion Electronic Imaging System Operator Cerner at 08/17/2022 5:56 PM CDT documented in this encounter Plan of Treatment Not on file documented as of this encounter Visit Diagnoses Not on filedocumented in this encounter Care Teams Control Inspector Relationship Specialty Start Date End Date Eladio Lomas MD 1210 [facility] [address] [address] Medical Oncologist Hematology and Oncology 07/08/22 Breanna Crow PACecilia [address] [facility] [address] [place] [address] Physician Bankruptcy Paralegal Oncology 07/08/22 documented as of this encounter
--- OUTSIDE RECORDS SUMMARY | 2024-11-22 10:05 | XMS_ITS | Encounter Summary ---
Author Organization [employer] ([place], [place], [place], [place]) Address [address] [place] [address] Care Team Providers Care Gis Engineer Name Role Phone Eladio Lomas MD Unavailable Breanna Crow PA-C Unavailable [phone] Encounter Details Date Type Department Care Team (Late st Contact Info) Description 10/15/2021 Transcribed Document [facility] [place] Family Medicine [address] [place] [address] ProviderJailyn MD [address] [place] [address] Social History Tobacco Use Types [...] often do you attend chur ch or scientologist services? Never 07/08/2022 Do you belong to [...] 71 y/o male who was admitted to [facility] on 10/15/2021 with RLE weakness and paresthesia. [...] ROM : WFL Left UE Strength : [facility] SOF[facility] CROFT PHYSICAL THERAPIST NON-EXEMPT - [...] PHYSICAL THERAPIST NON-EXEMPT - 10/17/2021 10:13 EDT Jury Consultant Goals Transfer LTG Grid Goal #1 Destination [...] on filedocumented in this encounter Care Teams Gis Engineer Relationship Specialty Start Date End Date Eladio Lomas MD 1210 [facility] [address] [place] [address] Medical Oncologist Hematology and Oncology 07/08/22 Breanna Crow, PACecilia [address] [facility] [address] [place] [address] Physician Compressed Yeast Supervisor Oncology 07/08/22 documented as of this encounter
--- OUTSIDE RECORDS SUMMARY | 2024-11-22 10:05 | XMS_ITS | Encounter Summary ---
Author Organization [employer] ([place], [place], [place], [place]) Address [address] [place] [address] Care Team Providers Care Water Jet Operator Name Role Phone Eladio Lomas MD Unavailable Breanna Crow PA-C Unavailable [phone] Encounter Details Date Type Department Care Team (Late st Contact Info) Description 10/15/2021 Transcribed Document [facility] [place] Family Medicine [address] [place] [address] ProviderJailyn MD [address] [place] [address] Social History Tobacco Use Types [...] 10/15/2021 12:32 EDT Electronically signed by Huy [facility] Conversion Beef Skinner Cerner at 08/17/2022 6:13 PM CDT documented in this encounter Plan of Treatment Not on file documented as of this encounter Visit Diagnoses Not on filedocumented in this encounter Care Teams Water Jet Operator Relationship Specialty Start Date End Date Eladio Lomas MD 1210 [facility] [address] [place] [address] Medical Oncologist Hematology and Oncology 07/08/22 Breanna Crow PA-C 3470 [facility] [address] [place] [address] Physician Tax Collector Oncology 07/08/22 documented as of this encounter
--- OUTSIDE RECORDS SUMMARY | 2024-11-22 10:05 | XMS_ITS | Encounter Summary ---
Author Organization [employer] ([place], [place], [place], [place]) Address [address] [place] [address] Care Team Providers Care Offset Plate Preparation Supervisor Name Role Phone Eladio Lomas MD Unavailable Breanna Crow PA-C Unavailable [phone] Encounter Details Date Type Department Care Team (Late st Contact Info) Description 01/01/2022 Transcribed Document [facility] [place] Medicine [address] [place] [address] ProviderJailyn MD [address] [place] [address] Social History Tobacco Use Types [...] often do you attend chur ch or voodoo services? Never 07/08/2022 Do you belong to any clubs o r organizations such as hindu groups, unions, fraternal or athletic groups, or [...] Date Ata rded Speak language other than Georgian at home Not on file 05/13/2023 Want [...] Pt. Name: CORBIN HU /Sex: 1950 Male [facility] Rec #: [id number] Physician: GARCIA WORKMAN MD-ORT Financial #: [id number] Pt. Type: O Room/Bed: [facility] Admit/Disch: 01/01/22 09:26:00 - Institution: [facility] IntraOp Case Attendance Entry 1 Entry 2 Entry 3 Case Attendee GARCIA WORKMAN MD-ORT MCDONALD, LEAH BETH, Bowling, Jachob, CRNA [email or web address] Role Performed Surgeon/Proceduralist, DIRECTOR PUBLIC SERVICE/Nurse Emergency Spill Response Technician DIRECTOR PUBLIC SERVICE/Nurse Emergency Spill Response Technician First Time In 01/01/22 10:42:00 01/01/22 [...] SAMMIE PEREZ, Lea Charles, RN Paulina Joseph, Marking Machine Tender Role Performed Psychology Professor, First Psychology Professor, Second Scrub, First Time In 01/01/22 10:42:00 01/01/22 10:42:00 01/01/22 10:42:00 Time Out 01/01/22 11:49:00 01/01/22 11:49:00 01/01/22 11:49:00 Procedure Lumbar Laminectomy Lumbar Laminectomy Lumbar Laminectomy Other Attendee Superficial Wound Closed By: Last Modified By: SAMMIE PEREZ RN LONGSWORTH, GARY, SAMMIE VARNER RN 01/01/22 11:49:14 01/01/22 11:49:14 01/01/22 11:49:14 Entry 7 Entry 8 Entry 9 Case Attendee Layla Padilla, CHRISTOFER ARDON, Masha Queen, Plywood Layup Line Back Feeder Role Performed Scrub, Second Physician sound assistant Laborer Mine Time In 01/01/22 10:42:00 01/01/22 10:42:00 01/01/22 10:42:00 Time Out 01/01/22 11:49:00 01/01/22 11:49:00 01/01/22 11:49:00 Procedure Lumbar Laminectomy Lumbar Laminectomy Lumbar Laminectomy Other Attendee Superficial Wound Closed By: Last Modified By: SAMMIE PEREZ, SAMMIE VARNER, RN SAMMIE PEREZ, SHARYN 01/01/22 11:49:14 01/01/22 11:49:14 01/01/22 11:49:14 [facility] IntraOp Case Attendance Audit 01/01/22 11:49:14 Engineering Technical Writer: SAM Modifier: LONGGA 1 <+> Time In [...] 9 <*> Procedure Lumbar Laminectomy 01/01/22 10:34:07 Engineering Technical Writer: SAM Modifier: LONGGA <+> 1 Procedure 2 [...] [facility] IntraOp Case Times Audit 01/01/22 11:49:13 Engineering Technical Writer: LONGGA Modifier: LONGGA <+> 1 Out Room Time <+> 1 Stop Time <+> 1 Stop Time 01/01/22 11:07:50 Engineering Technical Writer: LONGGA Modifier: LONGGA <+> 1 Start Time [...] 11:10:17 [facility] IntraOp Cautery Audit 01/01/22 11:10:35 Engineering Technical Writer: LONGGA Modifier: LONGGA 1 <*> Grounding Pad [...] RN 01/01/22 10:31:33 [facility] IntraOp General Case Brim Stiffener 1 Case Information OR OR 01 [facility] Case Level 1 Room Verified Yes Wound Class 1 - Clean Specialty Neurosurgery Anesthesia Type General ASA Class 2 Diagnosis Preop Diagnosis STENOSIS L4-5 Postop Same As Preop Yes Postop Diagnosis STENOSIS L4-5 Wound Class Definitions Last Modified By: SAMMIE PEREZ RN 01/01/22 10:47:20 [facility] IntraOp General Case Data Audit 01/01/22 10:47:20 Engineering Technical Writer: [email or web address] Modifier: LONGGA 1 <*> OR OR [...] 1ml epinephrine 1:200,000 topical kit injection - [id number] 30ml vial - [id number] (recombinant) - [id number] Combo Med List Time Administered Route of [...] [facility] IntraOp Medication Admin Audit 01/01/22 11:28:39 Engineering Technical Writer: LONGGA Modifier: LONGGA <+> 3 Medication/Irrigant <+> [...] [facility] IntraOp Surgical Procedures Audit 01/01/22 11:41:50 Engineering Technical Writer: LONGGA Modifier: LONGGA 1 <*> Procedure Lumbar Laminectomy 1 <+> Stop 01/01/22 11:38:39 Engineering Technical Writer: LONGGA Modifier: LONGGA 1 <*> Procedure Lumbar Laminectomy 1 <*> Additional Procedure Description RIGHT L4-5 LAMINECTOMY, DISCECTOMY 01/01/22 11:07:55 Engineering Technical Writer: LONGGA Modifier: LONGGA <+> 1 Start [facility] IntraOp Temp Regulation Devices Entry 1 Temp Regulation Temperature Warm blankets Regulation Device Temperature Upper body Regulation Site Temperature LARRY GAMINO, Regulation Device DIRECTOR PUBLIC SERVICE Applied by Last Modified By: SAMMIE PEREZ [...] Type Fluoroscopy Fluoroscopy Type C-Arm Site BACK Technical Cable Jointer Name Masha Sanders, Plywood Layup Line Back Feeder Protective Devices Yes Used Last Modified By: SAMMIE PEREZ RN 01/01/22 11:13:53 Case Comments <None> Finalized By: SAMMIE PEREZ, RN Document Signatures Signed By: SAMMIE PEREZ RN 01/01/22 11:50 SAMMIE PEREZ RN 01/01/22 12:22 Unfinalized History Date/Time Username Reason for Unfinalizing Freetext Reason for Unfinalizing 01/01/22 12:21 SAM Correct Documentation Electronically signed by Harjeet Son Conversion Educational Institution President Cerner at 08/17/2022 6:06 PM CDT documented in this encounter Plan of Treatment Not on file documented as of this encounter Visit Diagnoses Not on filedocumented in this encounter Care Teams Offset Plate Preparation Supervisor Relationship Specialty Start Date End Date Eladio Lomas MD 1210 [facility] [address] [address] Medical Oncologist Hematology and Oncology 07/08/22 Breanna Crow PA-C [address] [place] [address] [place] [address] Physician Crimping Machine Operator Oncology 07/08/22 documented as of this encounter
--- OUTSIDE RECORDS SUMMARY | 2024-11-22 10:05 | XMS_ITS | Encounter Summary ---
Author Organization [employer] ([place], [place], [place], [place]) Address [address] [place] [address] Care Team Providers Care Health Psychologist Name Role Phone Eladio Lomas MD Unavailable Breanna Crow PA-C Unavailable [phone] Encounter Details Date Type Department Care Team (Late st Contact Info) Description 10/15/2021 Transcribed Document [facility] [place] Family Medicine [address] [place] [address] ProviderJailyn MD [address] [place] [address] Social History Tobacco Use Types [...] any clubs o r organizations such as jainism groups, unions, fraternal or athletic groups, or [...] Date Ata rded Speak language other than Gabonese at home Not on file 05/13/2023 Want [...] On: 10/15/2021 12:50 EDT by Miladys Carter, [facility] Coord Phone Call for Consults Consult Reason : spine for right L5 radiculopathy causing foot drop Physician Requesting Consult : ROMERO INGRAM MD-SERENE Physician Requested for Consult : SHARON PATRICIO MD-ORT Date and Time Call Returned : 10/15/2021 14:40 EDT Consult, Additional Information : Spoke with Dr. Rosenberg on the phone concerning the consult. Miladys Carter, [facility] Coord - 10/15/2021 14:41 EDT Electronically signed by [facility] Conversion Interior Designer Cerner at 08/17/2022 5:55 PM CDT documented in this encounter Plan of Treatment Not on file documented as of this encounter Visit Diagnoses Not on filedocumented in this encounter Care Teams Health Psychologist Relationship Specialty Start Date End Date Eladio Lomas MD [address] [facility] [address] [place] [address] Medical Oncologist Hematology and Oncology 07/08/22 Breanna Crow PACecilia [address] [facility] [address] [place] [address] Physician Supervisor Lead Refinery Oncology 07/08/22 documented as of this encounter
--- OUTSIDE RECORDS SUMMARY | 2024-11-22 10:05 | XMS_ITS | Encounter Summary ---
Author Organization [employer] ([place], [place], [place], [place]) Address [address] [place] [address] Care Team Providers Care Crane Rigger Name Role Phone Eladio Lomas MD Unavailable Breanna Crow PA-C Unavailable [phone] Encounter Details Date Type Department Care Team (Late st Contact Info) Description 10/14/2021 Transcribed Document [facility] [address] [place] [address] ProviderJailyn MD [address] [place] [address] Social History Tobacco Use Types [...] any clubs o r organizations such as taoist groups, unions, fraternal or athletic groups, or [...] Date Ata rded Speak language other than Cambodian at home Not on file 05/13/2023 Want [...] : 3 - Urgent Tracking Group : [facility] GUO FAN RN - 10/14/2021 18:31 EDT Mode of Arrival : Wheelchair Transported to ED by : Private vehicle To Room Via : Wheelchair Accompanied By : Spouse ED Vital Signs : Document Height & Weight : Document ED Allergies : Document ED Reason for Visit : Document Tetanus Immunization : Greater than 5 years Automatic Bow Maker Machine Tender Needed : No UGO FAN RN - [...] EDT) Problems(Active) Mitral valve prolapse (SNOMED CT :[id number] ) Name of Problem: Mitral valve prolapse ; Recorder: Miranda Flor RN; Confirmation: Confirmed ; Classification: Patient Stated ; Code: [id number] ; Contributor System: Vingle ; Last Updated: 11/28/2017 15:14 EDT ; Life Cycle Date: 11/28/2017 ; Life Cycle Status: Active ; Vocabulary: SNOMED CT Diagnoses(Active) Paresthesia Date: 10/14/2021 ; Diagnosis Type: Reason For Visit ; Confirmation: Complaint of ; Clinical Dx: Paresthesia ; Classification: Medical ; Clinical Service: Emergency medicine ; Code: PNED ; Probability: 0 ; Diagnosis Code: [id number] ED Height and Weight Height Source : Stated Height Entry Format : [place]air Height, Feet : 5 ft(Converted to: 152 cm, 60 Inch) Height, Inches : 6 Inch(Converted to: 0 ft 6 Inch, 15.24 cm) Clinical Height : 167.64 cm Weight Source, ED : Critical estimated dosing weight Weight Entry Format : Adair Weight, Pounds : 180 lb Clinical Dosing Weight : 81.82 kg Body Surface Area (BSA) : 1.91 m2 Body Mass Index : 29.1 kg/m2 (HI) [place] Body Weight (IBW) : 62.88 kg UGO FAN RN - 10/14/2021 18:31 EDT Patient/Family Automatic Bow Maker Machine Tender Communication Primary Language : Cambodian UGO FAN, RN - 10/14/2021 18:31 EDT documented in this encounter Plan of Treatment Not on file documented as of this encounter Visit Diagnoses Not on filedocumented in this encounter Care Teams Crane Rigger Relationship Specialty Start Date End Date Eladio Lomas MD 1210 [facility] [address], [place] [address] Medical Oncologist Hematology and Oncology 07/08/22 Breanna Crow, PACecilia [address] [address] Physician Aviation Program Manager Oncology 07/08/22 documented as of this encounter
--- OUTSIDE RECORDS SUMMARY | 2024-11-22 10:05 | XMS_ITS | Encounter Summary ---
Author Organization [employer] ([place], [place], [place], [place]) Address [address] [place] [address] Care Team Providers Care Compressed Gas Equipment Mechanic Name Role Phone Eladio Lomas MD Unavailable Breanna Crow PA-C Unavailable [phone] Encounter Details Date Type Department Care Team (Late st Contact Info) Description 01/01/2022 Transcribed Document [facility] [place] Medicine [address] [place] [address] ProviderJailyn MD [address] [place] [address] Social History Tobacco Use Types [...] Date Ata rded Speak language other than Polish at home Not on file 05/13/2023 Want [...] Historical Provider, - 01/01/2022 1:04 [place] [address] SARAH HU :1950 Visit Time:01/01/2022 What to [...] for follow-up date and appointment time Activity: Uriah dressing. Do not remove. May shower with [...] MD-ORT When 01/14/2022 11:00 AM EDT Where: [address] [place] [address] [address] [place] [address]- Medications What How Much When Instructions Next Dose acetaminophen-oxyCODONE (Percocet 7.5/ 325 oral tablet) 1 Tablet(s) Oral Three Times A Day as needed for for pain Pickup at [facility] acetaminophen (Tylenol 325 mg oral tablet) 2 Tablet(s) Oral Every 4 Hours as needed for Pain (Mild 1-3) ergocalciferol (ergocalciferol 50 mcg (2000 intl units) oral capsule) 1 Capsule(s) Oral Every Day Duration: 14 Day(s) multivitamin (Multiple Vitamins oral tablet) 1 Tablet(s) Oral Every Day valACYclovir (Valtrex 1 g oral tablet) 1 Tablet(s) Oral Every Day Pharmacy Information [facility]: [address] [place] [address] [phone] Take your medications faithfully. Do NOT skip [...] these instructions at home: Medicines ??? Take megf-pwh-bypkrae and prescription medicines as told by your [...] keep your urine pale yellow. ? Take hsbu-prd-flsgplz or prescription medicines. ? Eat foods that [...] and water are not available, use hand targeting acquisition officer. ? Change your dressing as told [...] safe to drive. General instructions ??? Take tahb-dnl-vkwprer and prescription medicines only as told by [...] provider. Document Revised: 08/06/2020 Document Reviewed: 08/06/2020 [employer] Patient Education ?? 2021 [employer] Laminectomy, Care After This sheet gives [...] these instructions at home: Medicines ??? Take quvl-zro-qnxqysj and prescription medicines only as told by [...] keep your urine pale yellow. ? Take rgty-btl-fxcofyg or prescription medicines. ? Eat foods that [...] and water are not available, use hand targeting acquisition officer. ? Change your dressing as told [...] provider. Document Revised: 11/12/2019 Document Reviewed: 11/12/2019 [employer] Patient Education ?? 2021 [employer]. Emergency Awareness and Preventative Care STROKE is [...] Assistance with quitting is available by contacting 1-966-SXBP-NOW. This is a free resource providing counseling, [...] was given the opportunity to ask questions. Patient/Mixer Pigment Name: Patient/Mixer Pigment Signature: Relationship to Patient: Clinician/Hospital Mixer Pigment Signature: Date: documented in this encounter Plan of Treatment Not on file documented as of this encounter Visit Diagnoses Not on filedocumented in this encounter Care Teams Compressed Gas Equipment Mechanic Relationship Specialty Start Date End Date Eladio Lomas MD 1210 [facility] [address] [place], [place] [id number] Medical Oncologist Hematology and Oncology 07/08/22 Breanna Crow PARebelC [address] [facility] [address] [place] [address] Physician Program Officer Oncology 07/08/22 documented as of this encounter
--- OUTSIDE RECORDS SUMMARY | 2024-11-22 10:05 | XMS_ITS | Encounter Summary ---
Author Organization [employer] ([place], [place], [place], [place]) Address [address] [place] [address] Care Team Providers Care Orchid Worker Name Role Phone Eladio Lomas MD Unavailable Breanna Crow PA-C Unavailable [phone] Encounter Details Date Type Department Care Team (Late st Contact Info) Description 10/14/2021 Transcribed Document [facility] [place] [address] [place] [address] ProviderJailyn MD [address] [place] [address] Social History Tobacco Use Types [...] often do you attend chur ch or islam services? Never 07/08/2022 Do you belong to any clubs o r organizations such as sabianist groups, unions, fraternal or athletic groups, or [...] Date Ata rded Speak language other than Italian at home Not on file 05/13/2023 Want [...] 10/14/2021 18:33 EDT Electronically signed by Huy [facility] Conversion Helmet Hat Puncher Cerner at 08/17/2022 6:01 PM CDT documented in this encounter Plan of Treatment Not on file documented as of this encounter Visit Diagnoses Not on filedocumented in this encounter Care Teams Orchid Worker Relationship Specialty Start Date End Date Eladio Lomas MD 1210 [facility] [address] [place] [address] Medical Oncologist Hematology and Oncology 07/08/22 Breanna Crow, CHAVA [address] [address] Physician Tactical Deception Plans Officer Oncology 07/08/22 documented as of this encounter
--- OUTSIDE RECORDS SUMMARY | 2024-11-22 10:05 | XMS_ITS | Encounter Summary ---
Author Organization [employer] ([place], [place], [place], [place]) Address [address] [place] [address] Care Team Providers Care Utility Pipe Layer Name Role Phone Eladio Lomas MD Unavailable Breanna Crow PA-C Unavailable [phone] Encounter Details Date Type Department Care Team (Late st Contact Info) Description 01/01/2022 Transcribed Document [facility] [address] [place] [address] ProviderJailyn MD [address] [place] [address] Social History Tobacco Use Types [...] any clubs o r organizations such as mormon groups, unions, fraternal or athletic groups, or [...] Historical Provider, - 01/01/2022 12:58 [place] [address] SARAH HU :1950 Visit Time:01/01/2022 What to [...] for follow-up date and appointment time Activity: Gaston dressing. Do not remove. May shower with [...] MD-ORT When 01/14/2022 11:00 AM EDT Where: [address] [place] [address] [address] [place] [address]- Medications What How Much When Instructions Next Dose acetaminophen-oxyCODONE (Percocet 7.5/ 325 oral tablet) 1 Tablet(s) Oral Three Times A Day as needed for for pain Pickup at [facility] acetaminophen (Tylenol 325 mg oral tablet) 2 Tablet(s) Oral Every 4 Hours as needed for Pain (Mild 1-3) ergocalciferol (ergocalciferol 50 mcg (2000 intl units) oral capsule) 1 Capsule(s) Oral Every Day Duration: 14 Day(s) multivitamin (Multiple Vitamins oral tablet) 1 Tablet(s) Oral Every Day valACYclovir (Valtrex 1 g oral tablet) 1 Tablet(s) Oral Every Day Pharmacy Information [facility]: [address] [place] [address] [phone] Take your medications faithfully. Do NOT skip [...] these instructions at home: Medicines ??? Take upkl-pfr-mfbezaf and prescription medicines as told by your [...] keep your urine pale yellow. ? Take sspe-amh-klhbqht or prescription medicines. ? Eat foods that [...] and water are not available, use hand sales agent protective service. ? Change your dressing as told by [...] safe to drive. General instructions ??? Take kisn-rpg-otyghzm and prescription medicines only as told by [...] provider. Document Revised: 08/06/2020 Document Reviewed: 08/06/2020 [employer] Patient Education ?? 2021 [employer]. Laminectomy, Care After This sheet gives [...] these instructions at home: Medicines ??? Take rrpf-eeo-sabdmzw and prescription medicines only as told by [...] keep your urine pale yellow. ? Take rizl-hby-eiejhsg or prescription medicines. ? Eat foods that [...] and water are not available, use hand sales agent protective service. ? Change your dressing as told by [...] provider. Document Revised: 11/12/2019 Document Reviewed: 11/12/2019 [employer] Patient Education ?? 2021 [employer]. Emergency Awareness and Preventative Care STROKE is [...] Assistance with quitting is available by contacting 3-452-BIQQ-NOW. This is a free resource providing counseling, [...] was given the opportunity to ask questions. Patient/Fisher Lobster Name: Patient/Fisher Lobster Signature: Relationship to Patient: Clinician/Hospital Fisher Lobster Signature: Date: documented in this encounter Plan of Treatment Not on file documented as of this encounter Visit Diagnoses Not on filedocumented in this encounter Care Teams Utility Pipe Layer Relationship Specialty Start Date End Date Eladio Lomas MD 1210 [facility] [address] [place], [place] [id number] Medical Oncologist Hematology and Oncology 07/08/22 Breanna Crow PARebelC 34[address] [facility] [address] [place] [address] Physician Stamp Presser Oncology 07/08/22 documented as of this encounter
--- OUTSIDE RECORDS SUMMARY | 2024-11-22 10:05 | XMS_ITS | Encounter Summary ---
Author Organization [employer] ([place], [place], [place], [place]) Address [address] [place] [address] Care Team Providers Care Loft Worker Pile Driving Name Role Phone Eladio Lomas MD Unavailable Breanna Crow PA-C Unavailable [phone] Encounter Details Date Type Department Care Team (Late st Contact Info) Description 01/01/2022 Transcribed Document [facility] [place] Family Medicine [address] [place] [address] ProviderJailyn MD [address] [place] [address] Social History Tobacco Use Types [...] often do you attend chur ch or hindu services? Never 07/08/2022 Do you belong to any clubs o r organizations such as jehovah's witness groups, unions, fraternal or athletic groups, or [...] Date Ata rded Speak language other than Belarusian at home Not on file 05/13/2023 Want [...] lysis, facetectomy, L4-5 SURGEON: Garcia Workman MD. HIV NURSE: Roberto Plata ANESTHESIA: General. ESTIMATED BLOOD LOSS: [...] on filedocumented in this encounter Care Teams Loft Worker Pile Driving Relationship Specialty Start Date End Date Eladio Lomas MD 1210 [facility] [address] [place], [place] [id number] Medical Oncologist Hematology and Oncology 07/08/22 Breanna Crow PACecilia 20[address] [facility] [address] [place] [address] Physician Ux Developer Oncology 07/08/22 documented as of this encounter
--- OUTSIDE RECORDS SUMMARY | 2024-11-22 10:05 | XMS_ITS | Encounter Summary ---
Author Organization [employer] ([place], [place], [place], [place]) Address [address] [place] [address] Care Team Providers Care Arts And Crafts Instructor Name Role Phone Eladio Lomas MD Unavailable Breanna Crow PA-C Unavailable [phone] Encounter Details Date Type Department Care Team (Late st Contact Info) Description 10/15/2021 Transcribed Document [facility] [place] Family Medicine [address] [place] [address] ProviderJailyn MD [address] [place] [address] Social History Tobacco Use Types [...] often do you attend chur ch or zoroastrianism services? Never 07/08/2022 Do you belong to [...] Date Ata rded Speak language other than Zambian at home Not on file 05/13/2023 Want [...] Health Plan: [employer] PPO Policy Number: [id number] Authorization Number: Insurance Primary Name : [employer] PPO [id number] Authorization Status-Primary : Pending Reference Number-Primary : [id number] Authorized Service Begin Date-Primary : 10/15/2021 EDT Historical Authorization Comments-Primary : Comment 1: [employer] PPO auth pending per Star note. (JUANITA HUGO, SHARYN-Utilization Review 10/15/2021 09:18) Natalie Lauren Rn-Utilization Review - 10/15/2021 9:29 EDT documented in this encounter Plan of Treatment Not on file documented as of this encounter Visit Diagnoses Not on filedocumented in this encounter Care Teams Arts And Crafts Instructor Relationship Specialty Start Date End Date Eladio Lomas MD 1210 [facility] [address] [address] Medical Oncologist Hematology and Oncology 07/08/22 Breanna Crow, PARebelC [address] [place] [address] [address] [place] [address] Physician Rawhide Trimmer Oncology 07/08/22 documented as of this encounter
--- OUTSIDE RECORDS SUMMARY | 2024-11-22 10:05 | XMS_ITS | Encounter Summary ---
Author Organization [employer] ([place], [place], [place], [place]) Address [address] [place] [address] Care Team Providers Care Route Jumper Name Role Phone Eladio Lomas MD Unavailable Breanna Crow PA-C Unavailable [phone] Encounter Details Date Type Department Care Team (Late st Contact Info) Description 01/01/2022 Transcribed Document [facility] [place] Family Medicine [address] [place] [address] ProviderJailyn MD [address] [place] [address] Social History Tobacco Use Types [...] Date Ata rded Speak language other than Armenian at home Not on file 05/13/2023 Want [...] HU /Sex: 1950 Male Med Rec #: [id number] Physician: GARCIA WORKMAN MD-ORT Financial #: [id number] Pt. Type: O Room/Bed: [facility] Admit/Disch: 01/01/22 09:26:00 - Institution: [facility] PostOp Case Times Entry 1 In PACU II 01/01/22 12:41:00 Ready for PACU II 01/01/22 13:10:00 Discharge Discharge from PACU 01/01/22 13:20:00 II Last Modified By: DAYANA BALLARD, RN 01/01/22 13:28:32 [facility] PostOp Case Times Audit 01/01/22 13:28:32 Job Site Superintendent: ELDERJM Modifier: [email or web address] <+> 1 Ready for PACU II Discharge <+> 1 Discharge from PACU II Finalized By: DAYANA BALLARD, RN Document Signatures Signed By: DAYANA BALLARD, RN 01/01/22 13:28 Electronically signed by Huy [facility] Conversion Fur Blender Cerner at 08/17/2022 6:16 PM CDT documented in this encounter Plan of Treatment Not on file documented as of this encounter Visit Diagnoses Not on filedocumented in this encounter Care Teams Route Jumper Relationship Specialty Start Date End Date Eladio Lomas MD 1210 [facility] [address] [address] Medical Oncologist Hematology and Oncology 07/08/22 Breanna Crow PA-C 54[address] [facility] [address] [place] [address] Physician Jtac Oncology 07/08/22 documented as of this encounter
--- OUTSIDE RECORDS SUMMARY | 2024-11-22 10:05 | XMS_ITS | Encounter Summary ---
Author Organization [employer] ([place], [place], [place], [place]) Address [address] [place] [address] Care Team Providers Care Hospital Medical Biller Name Role Phone Eladio Lomas MD Unavailable Breanna Crow PA-C Unavailable [phone] Encounter Details Date Type Department Care Team (Late st Contact Info) Description 01/01/2022 Transcribed Document [facility] Family Medicine [address] [place] [address] ProviderJailyn MD [address] [place] [address] Social History Tobacco Use Types [...] often do you attend chur ch or buddhist services? Never 07/08/2022 Do you belong to [...] Date Ata rded Speak language other than Estonian at home Not on file 05/13/2023 Want [...] Historical Provider, - 01/01/2022 12:59 [place] [address] SARAH HU :1950 Visit Time:01/01/2022 What to [...] for follow-up date and appointment time Activity: [place] dressing. Do not remove. May shower with [...] MD-ORT When 01/14/2022 11:00 AM EDT Where: [address] [place] [address] [address] [place] [address]- Medications What How Much When Instructions Next Dose acetaminophen-oxyCODONE (Percocet 7.5/ 325 oral tablet) 1 Tablet(s) Oral Three Times A Day as needed for for pain Pickup at [facility] acetaminophen (Tylenol 325 mg oral tablet) 2 Tablet(s) Oral Every 4 Hours as needed for Pain (Mild 1-3) ergocalciferol (ergocalciferol 50 mcg (2000 intl units) oral capsule) 1 Capsule(s) Oral Every Day Duration: 14 Day(s) multivitamin (Multiple Vitamins oral tablet) 1 Tablet(s) Oral Every Day valACYclovir (Valtrex 1 g oral tablet) 1 Tablet(s) Oral Every Day Pharmacy Information [facility] Pharm: [address] [place] [address] [phone] Take your medications faithfully. Do NOT skip [...] these instructions at home: Medicines ??? Take qmnv-yjd-kjztobf and prescription medicines as told by your [...] keep your urine pale yellow. ? Take vnjr-xme-yvpkofo or prescription medicines. ? Eat foods that [...] and water are not available, use hand mysql developer. ? Change your dressing as told by [...] safe to drive. General instructions ??? Take kyoh-chc-tkldknu and prescription medicines only as told by [...] provider. Document Revised: 08/06/2020 Document Reviewed: 08/06/2020 [employer] Patient Education ?? 2021 [employer] Laminectomy, Care After This sheet gives [...] these instructions at home: Medicines ??? Take htpy-rxj-iupojex and prescription medicines only as told by [...] keep your urine pale yellow. ? Take daoc-spw-teluhdt or prescription medicines. ? Eat foods that [...] and water are not available, use hand mysql developer. ? Change your dressing as told by [...] provider. Document Revised: 11/12/2019 Document Reviewed: 11/12/2019 [employer] Patient Education ?? 2021 [employer]. Emergency Awareness and Preventative Care STROKE is [...] Assistance with quitting is available by contacting 6-042-WOMT-NOW. This is a free resource providing counseling, [...] was given the opportunity to ask questions. Patient/Surgical Forceps Fabricator Name: Patient/Surgical Forceps Fabricator Signature: Relationship to Patient: Clinician/Hospital Surgical Forceps Fabricator Signature: Date: Electronically signed by Rock [employer] Conversion [employer] Press Operator Apprentice Cerner at 08/17/2022 6:15 PM CDT documented in this encounter Plan of Treatment Not on file documented as of this encounter Visit Diagnoses Not on filedocumented in this encounter Care Teams Hospital Medical Biller Relationship Specialty Start Date End Date Eladio Lomas MD 1210 [facility] [address] [place], [place] [id number] Medical Oncologist Hematology and Oncology 07/08/22 Breanna Crow PARebelC [address] [facility] [address] [place] [address] Physician Psychiatric Cns Oncology 07/08/22 documented as of this encounter
--- OUTSIDE RECORDS SUMMARY | 2024-11-22 10:05 | XMS_ITS | Encounter Summary ---
Author Organization [employer] ([place], [place], [place], [place]) Address [address] [place] [address] Care Team Providers Care Microsoft Infrastructure Consultant Name Role Phone Eladio Lomas MD Unavailable Breanna Crow PA-C Unavailable [phone] Encounter Details Date Type Department Care Team (Late st Contact Info) Description 10/15/2021 Transcribed Document [facility] [place] Family Medicine [address] [place] [address] ProviderJailyn MD [address] [place] [address] Social History Tobacco Use Types [...] Date Ata rded Speak language other than Malawian at home Not on file 05/13/2023 Want [...] On: 10/15/2021 14:48 EDT by Miladys Carter, [facility] Coord Phone Call for Consults Consult Reason : right L5 radiculopathy causing foot drop Physician Requesting Consult : ROMERO INGRAM MD-SERENE Physician Requested for Consult : GARCIA WORKMAN MD-ORT Date and Time Call Returned : 10/15/2021 14:50 EDT Consult, Additional Information : Spoke with Dr. Workman in person concerning the consult. Miladys Carter, [facility] Coord - 10/15/2021 14:50 EDT Electronically signed by [facility], [facility] Conversion Deck Hand Cerner at 08/17/2022 6:04 PM CDT documented in this encounter Plan of Treatment Not on file documented as of this encounter Visit Diagnoses Not on filedocumented in this encounter Care Teams Microsoft Infrastructure Consultant Relationship Specialty Start Date End Date Eladio Lomas MD 1210 [facility] [address], [place] [address] Medical Oncologist Hematology and Oncology 07/08/22 Breanna Crow PA-C [address] [facility] [address] [place] [address] Physician Exhauster Engineer Oncology 07/08/22 documented as of this encounter
--- OUTSIDE RECORDS SUMMARY | 2024-11-22 10:05 | XMS_ITS | Encounter Summary ---
Author Organization [employer] ([place], [place], [place], [place]) Address [address] [place] [address] Care Team Providers Care Counter Server Name Role Phone Eladio Lomas MD Unavailable Breanna Crow PA-C Unavailable [phone] Encounter Details Date Type Department Care Team (Late st Contact Info) Description 10/14/2021 Transcribed Document [facility] [place] Family Medicine [address] [place] [address] ProviderJailyn MD [address] [place] [address] Social History Tobacco Use Types [...] often do you attend chur ch or restorationist services? Never 07/08/2022 Do you belong to [...] Date Ata rded Speak language other than Martiniquais at home Not on file 05/13/2023 Want [...] Historical Provider, - 10/14/2021 6:20 PM CDT [place] Suicide Severity Rating Scale (C-SSRS) Entered On: 10/14/2021 18:34 EDT Performed On: 10/14/2021 18:33 EDT by UGO FAN, RN [place] Suicide Severity Rating Scale (C-SSRS) CSSRS Past Month Wish to be : No CSSRS Past Month Suicidal Thoughts : No CSSRS Lifetime Suicide Behavior : No Suicide Severity Rating Score : 0 Suicide Severity Rating : No Additional Care Required at this time Thoughts of Harming/Killing Others : No UGO FAN RN - 10/14/2021 18:33 EDT Electronically signed by Huy [facility] Conversion Failure Analysis Technician Cerner at 08/17/2022 5:56 PM CDT documented in this encounter Plan of Treatment Not on file documented as of this encounter Visit Diagnoses Not on filedocumented in this encounter Care Teams Counter Server Relationship Specialty Start Date End Date Eladio Lomas MD 1210 [facility] [address] [address] Medical Oncologist Hematology and Oncology 07/08/22 Breanna Crow, PARebelC [address] [place] [address] Physician Hemodialysis Charge Nurse Oncology 07/08/22 documented as of this encounter
--- OUTSIDE RECORDS SUMMARY | 2024-11-22 10:05 | XMS_ITS | Encounter Summary ---
Author Organization [employer] ([place], [place], [place], [place]) Address [address] [place] [address] Care Team Providers Care Rubber Attacher Name Role Phone Eladio Lomas MD Unavailable Breanna Crow PA-C Unavailable [phone] Encounter Details Date Type Department Care Team (Late st Contact Info) Description 10/15/2021 Transcribed Document [facility] [place] Family Medicine [address] [place] [address] ProviderJailyn MD [address] [place] [address] Social History Tobacco Use Types [...] any clubs o r organizations such as tenriism groups, unions, fraternal or athletic groups, or [...] Date Ata rded Speak language other than Cypriot at home Not on file 05/13/2023 Want [...] on filedocumented in this encounter Care Teams Rubber Attacher Relationship Specialty Start Date End Date Eladio Lomas MD [address] [address] Medical Oncologist Hematology and Oncology 07/08/22 Breanna Crow, PA-C [address] [place] [address] Physician Mailing Section Clerk Oncology 07/08/22 documented as of this encounter
--- OUTSIDE RECORDS SUMMARY | 2024-11-22 10:05 | XMS_ITS | Encounter Summary ---
Author Organization [employer] ([place], [place], [place], [place]) Address [address] [place] [address] Care Team Providers Care Rehab Spec Name Role Phone Eladio Lomas MD Unavailable Breanna Crow PA-C Unavailable [phone] Encounter Details Date Type Department Care Team (Late st Contact Info) Description 10/15/2021 Transcribed Document [facility] [place] Family Medicine [address] [place] [address] ProviderJailyn MD [address] [place] [address] Social History Tobacco Use Types [...] on filedocumented in this encounter Care Teams Rehab Spec Relationship Specialty Start Date End Date Eladio Lomas MD 1210 [facility] [address] [place] [address] Medical Oncologist Hematology and Oncology 07/08/22 Breanna Crow PA-C [address] [address] Physician Art Preparator Oncology 07/08/22 documented as of this encounter
--- OUTSIDE RECORDS SUMMARY | 2024-11-22 10:05 | XMS_ITS | Encounter Summary ---
Author Organization [employer] ([place], [place], [place], [place]) Address [address] [place] [address] Care Team Providers Care Pushcart Peddler Name Role Phone Eladio Lomas MD Unavailable Breanna Crow PA-C Unavailable [phone] Encounter Details Date Type Department Care Team (Late st Contact Info) Description 01/01/2022 Transcribed Document [facility] [place] Family Medicine [address] [place] [address] ProviderJailyn MD [address] [place] [address] Social History Tobacco Use Types [...] these instructions at home: Medicines ??? Take hiah-xyp-gtoyzxp and prescription medicines as told by your [...] keep your urine pale yellow. ? Take qnre-whp-wkaaorf or prescription medicines. ? Eat foods that [...] and water are not available, use hand youth advocate. ? Change your dressing as told by [...] safe to drive. General instructions ??? Take sbos-efa-iekojab and prescription medicines only as told by [...] provider. Document Revised: 08/06/2020 Document Reviewed: 08/06/2020 [employer] Patient Education ? 2021 [employer] Laminectomy, Care After This sheet gives [...] these instructions at home: Medicines ??? Take qlhq-zie-huxzwgx and prescription medicines only as told by [...] keep your urine pale yellow. ? Take yasj-bwn-gmrylwb or prescription medicines. ? Eat foods that [...] and water are not available, use hand youth advocate. ? Change your dressing as told by [...] provider. Document Revised: 11/12/2019 Document Reviewed: 11/12/2019 [employer] Patient Education ? 2021 [employer]. documented in this encounter Plan of Treatment Not on file documented as of this encounter Visit Diagnoses Not on filedocumented in this encounter Care Teams Pushcart Peddler Relationship Specialty Start Date End Date Eladio Lomas MD 1210 [facility] [address] [place] [id number] Medical Oncologist Hematology and Oncology 07/08/22 Breanna Crow PA-C [address] [place] [address] Physician Commercial Makeup Artist Oncology 07/08/22 documented as of this encounter
--- OUTSIDE RECORDS SUMMARY | 2024-11-22 10:05 | XMS_ITS | Encounter Summary ---
Author Organization [employer] ([place], [place], [place], [place]) Address [address] [place] [address] Care Team Providers Care Roasterman Name Role Phone Eladio Lomas MD Unavailable Breanna Crow PA-C Unavailable [phone] Encounter Details Date Type Department Care Team (Late st Contact Info) Description 10/15/2021 Transcribed Document [facility] [place] Family Medicine [address] [place] [address] ProviderJailyn MD [address] [place] [address] Social History Tobacco Use Types [...] often do you attend chur ch or roman catholic services? Never 07/08/2022 Do you belong [...] Date Ata rded Speak language other than Cameroonian at home Not on file 05/13/2023 Want [...] CRYSTAL ROBERTS OTR/Mikal - 10/17/2021 12:09 EDT Numerologist Goals, OT Other LTG Grid Goal #1 [...] AFO and shoe, with verbal cues and vnou-xw-ldcv instructions on how to perform, due to [...] on filedocumented in this encounter Care Teams Roasterman Relationship Specialty Start Date End Date Eladio Lomas MD 1210 [facility] [address] [place] [address] Medical Oncologist Hematology and Oncology 07/08/22 Breanna Crow PA-C [address] [place], [place] [id number] Physician Building Operator Oncology 07/08/22 documented as of this encounter
--- OUTSIDE RECORDS SUMMARY | 2024-11-22 10:05 | XMS_ITS | Encounter Summary ---
Author Organization [employer] ([place], [place], [place], [place]) Address [address] [place] [address] Care Team Providers Care Lumber Planer Name Role Phone Eladio Lomas MD Unavailable Breanna Crow PA-C Unavailable [phone] Encounter Details Date Type Department Care Team (Late st Contact Info) Description 01/01/2022 Transcribed Document [facility] [place] Family Medicine [address] [place] [address] ProviderJailyn MD [address] [place] [address] Social History Tobacco Use Types [...] often do you attend chur ch or orthodox services? Never 07/08/2022 Do you belong [...] Historical Provider, - 01/01/2022 1:12 [place] [address] SARAH HU :1950 Visit Time:01/01/2022 What to [...] for follow-up date and appointment time Activity: [place] dressing. Do not remove. May shower with [...] When 01/14/2022 11:00 AM EDT Where: [address] [place] [address] [address] [place] [address]- Medications What How Much When Instructions Next [...] [facility] Pharm: [address] [place] [phone] Take your medications faithfully. Do NOT skip [...] these instructions at home: Medicines ??? Take lvqo-grv-vdjplld and prescription medicines as told by your [...] keep your urine pale yellow. ? Take aihd-tkn-hnjlqzr or prescription medicines. ? Eat foods that [...] and water are not available, use hand beet topper. ? Change your dressing as told by [...] safe to drive. General instructions ??? Take ltwa-sfc-yedfccg and prescription medicines only as told by [...] provider. Document Revised: 08/06/2020 Document Reviewed: 08/06/2020 [employer] Patient Education ?? 2021 [employer] Laminectomy, Care After This sheet [...] these instructions at home: Medicines ??? Take mfzk-bxv-viwhffo and prescription medicines only as told by [...] keep your urine pale yellow. ? Take saxc-etn-imeuuxt or prescription medicines. ? Eat foods that [...] and water are not available, use hand beet topper. ? Change your dressing as told by [...] provider. Document Revised: 11/12/2019 Document Reviewed: 11/12/2019 [employer] Patient Education ?? 2021 [employer]. Emergency Awareness and Preventative Care STROKE is [...] Assistance with quitting is available by contacting 2-000-GJKZ-NOW. This is a free resource providing counseling, [...] was given the opportunity to ask questions. Patient/Fur Cleaner Name: Patient/Fur Cleaner Signature: Relationship to Patient: Clinician/Hospital Fur Cleaner Signature: Date: documented in this encounter Plan of Treatment Not on file documented as of this encounter Visit Diagnoses Not on filedocumented in this encounter Care Teams Lumber Planer Relationship Specialty Start Date End Date Eladio Lomas MD 1210 [facility] [address] [place], [place] [id number] Medical Oncologist Hematology and Oncology 07/08/22 Breanna Crow PARebelC [address] [facility] [address] [place] [address] Physician Media Account Executive Oncology 07/08/22 documented as of this encounter
--- OUTSIDE RECORDS SUMMARY | 2024-11-22 10:05 | XMS_ITS | Encounter Summary ---
Author Organization [employer] ([place], [place], [place], [place]) Address [address] [place] [address] Care Team Providers Care Plant And Machinery Valuer Name Role Phone Eladio Lomas MD Unavailable Breanna Crow PA-C Unavailable [phone] Encounter Details Date Type Department Care Team (Late st Contact Info) Description 10/15/2021 Transcribed Document [facility] [place] Family Medicine [address] [place] [address] ProviderJailyn MD [address] [place] [address] Social History Tobacco Use Types [...] & time 10/15/2021 00:00:00, Voice recognition / boat detailer technology used for some documentation in this [...] CATH WINJX HRT ART& L VENTR IMG ([id number]).. Family history: Not significant. Social history: Social [...] EDT Height Source Stated Height Entry Format [place] Height/Length, ALGERIAN (ft) 5 ft Height/Length ALGERIAN 6 Inch CLINICALHEIGHT 167.64 cm [place] Body Weight 62.88 kg Weight Source, ED Critical estimated dosing weight Weight Entry Format [place] Weight Iraqi lb 180 lb CLINICALWEIGHT 81.82 kg Body [...] Triage: ED C-SSRS: ED Clinical Reconciliation: ED vehicle detailer: ESR Sedimentation Rate Auto: Saline Lock Insert: [...] SEX: 1950 / Male MRN / ACC#: [id number] / [id number] ORDERING PHYSICIAN: Matt Whitman. EXAM REQUESTED: [id number]--MZ LUMBAR SPINE W/O CONTRAST FACILITY: [facility] DATE: 10/15/2021 RADIOLOGIST NAME: MD Lim [...] understanding of instructions. Electronically signed by Huy [facility] Conversion Director Software Cerner at 08/17/2022 6:02 PM CDT documented in this encounter Plan of Treatment Not on file documented as of this encounter Visit Diagnoses Not on filedocumented in this encounter Care Teams Plant And Machinery Valuer Relationship Specialty Start Date End Date Eladio Lomas MD [address] [address] Medical Oncologist Hematology and Oncology 07/08/22 Breanna Crow, PA-C [address] [place] [address] [place] [address] Physician Anvil Seating Press Operator Oncology 07/08/22 documented as of this encounter
--- OUTSIDE RECORDS SUMMARY | 2024-11-22 10:05 | XMS_ITS | Encounter Summary ---
Author Organization [employer] ([place], [place], [place], [place]) Address [address] [place] [address] Care Team Providers Care Press Service Reader Name Role Phone Eladio Lomas MD Unavailable Breanna Crow PA-C Unavailable [phone] Encounter Details Date Type Department Care Team (Late st Contact Info) Description 10/15/2021 Transcribed Document [facility] [place] Family Medicine [address] [place] [address] ProviderJailyn MD [address] [place] [address] Social History Tobacco Use Types [...] often do you attend chur ch or lutheran services? Never 07/08/2022 Do you belong to [...] on filedocumented in this encounter Care Teams Press Service Reader Relationship Specialty Start Date End Date Eladio Lomas MD 1210 [facility] [address] [place] [address] Medical Oncologist Hematology and Oncology 07/08/22 Breanna Crow, PACecilia [address] [place] [address] [place] [address] Physician Window Covering Sales Consultant Oncology 07/08/22 documented as of this encounter
--- OUTSIDE RECORDS SUMMARY | 2024-11-22 10:05 | XMS_ITS | Encounter Summary ---
Author Organization [employer] ([place], [place], [place], [place]) Address [address] [place] [address] Care Team Providers Care Flange Turner Name Role Phone Eladio Lomas MD Unavailable Breanna Crow PA-C Unavailable [phone] Encounter Details Date Type Department Care Team (Late st Contact Info) Description 01/01/2022 Transcribed Document [facility] [place] Family Medicine [address] [place] [address] ProviderJailyn MD [address] [place] [address] Social History Tobacco Use Types [...] 01/01/2022 10:44 EDT Electronically signed by Huy [facility] Conversion Community Living Instructor Cerner at 08/17/2022 6:06 PM CDT documented in this encounter Plan of Treatment Not on file documented as of this encounter Visit Diagnoses Not on filedocumented in this encounter Care Teams Flange Turner Relationship Specialty Start Date End Date Eladio Lomas MD 1210 [facility] [address] [place] [address] Medical Oncologist Hematology and Oncology 07/08/22 Breanna Crow PA-C 3421 [facility] [address] [place] [address] Physician Backhoe Operator Oncology 07/08/22 documented as of this encounter
--- OUTSIDE RECORDS SUMMARY | 2024-11-22 10:05 | XMS_ITS | Encounter Summary ---
Author Organization [employer] ([place], [place], [place], [place]) Address [address] [place] [address] Care Team Providers Care Manager In Home Name Role Phone Eladio Lomas MD Unavailable Breanna Crow PA-C Unavailable [phone] Encounter Details Date Type Department Care Team (Late st Contact Info) Description 01/01/2022 Transcribed Document [facility] [place] Family Medicine [address] [place] [address] ProviderJailyn MD [address] [place] [address] Social History Tobacco Use Types [...] Historical Provider, - 01/01/2022 12:58 [place] [address] SARAH HU :1950 Visit Time:01/01/2022 What to [...] for follow-up date and appointment time Activity: [place] dressing. Do not remove. May shower with [...] MD-ORT When 01/14/2022 11:00 AM EDT Where: [address] [place] [address] [address] [place] [address]- Medications What How Much When Instructions Next Dose acetaminophen-oxyCODONE (Percocet 7.5/ 325 oral tablet) 1 Tablet(s) Oral Three Times A Day as needed for for pain Pickup at [facility] acetaminophen (Tylenol 325 mg oral tablet) 2 Tablet(s) Oral Every 4 Hours as needed for Pain (Mild 1-3) ergocalciferol (ergocalciferol 50 mcg (2000 intl units) oral capsule) 1 Capsule(s) Oral Every Day Duration: 14 Day(s) multivitamin (Multiple Vitamins oral tablet) 1 Tablet(s) Oral Every Day valACYclovir (Valtrex 1 g oral tablet) 1 Tablet(s) Oral Every Day Pharmacy Information [facility] Pharm: [address] [place] [address] [phone] Take your medications faithfully. Do NOT skip [...] these instructions at home: Medicines ??? Take ljnm-iqk-incgjuw and prescription medicines as told by your [...] keep your urine pale yellow. ? Take opdm-jjq-wcptbqw or prescription medicines. ? Eat foods that [...] and water are not available, use hand tobacco feeder catcher. ? Change your dressing as told by [...] safe to drive. General instructions ??? Take hvfj-ppi-omrtpem and prescription medicines only as told by [...] provider. Document Revised: 08/06/2020 Document Reviewed: 08/06/2020 [employer] Patient Education ?? 2021 [employer] Laminectomy, Care After This sheet gives [...] these instructions at home: Medicines ??? Take ezik-sbf-wksjlty and prescription medicines only as told by [...] keep your urine pale yellow. ? Take aeyy-txd-sxiijse or prescription medicines. ? Eat foods that [...] and water are not available, use hand tobacco feeder catcher. ? Change your dressing as told by [...] provider. Document Revised: 11/12/2019 Document Reviewed: 11/12/2019 [employer] Patient Education ?? 2021 [employer]. Emergency Awareness and Preventative Care STROKE is [...] Assistance with quitting is available by contacting 1-189-TQGX-NOW. This is a free resource providing counseling, [...] was given the opportunity to ask questions. Patient/Manager Enterprise Name: Patient/Manager Enterprise Signature: Relationship to Patient: Clinician/Hospital Manager Enterprise Signature: Date: documented in this encounter Plan of Treatment Not on file documented as of this encounter Visit Diagnoses Not on filedocumented in this encounter Care Teams Manager In Home Relationship Specialty Start Date End Date Eladio Lomas MD 1210 [facility] [address] [place], [place] [id number] Medical Oncologist Hematology and Oncology 07/08/22 Breanna Crow PARebelC [address] [facility] [address] [place] [address] Physician Wind Tunnel Mechanic Oncology 07/08/22 documented as of this encounter
--- OUTSIDE RECORDS SUMMARY | 2024-11-22 10:05 | XMS_ITS | Encounter Summary ---
Author Organization [employer] ([place], [place], [place], [place]) Address [address] [place] [address] Care Team Providers Care Air Traffic Controller Center Name Role Phone Eladio Lomas MD Unavailable Breanna Crow PA-C Unavailable [phone] Encounter Details Date Type Department Care Team (Late st Contact Info) Description 10/15/2021 Transcribed Document [facility] [place] Family Medicine [address] [place] [address] ProviderJailyn MD [address] [place] [address] Social History Tobacco Use Types [...] 4:48 EDT by Tessy Gramajo RN-PATIENT CARE [facility] Advance Directive Patient has Advance Directive *Q : Yes, Advance Directive not with the patient Advance Directive Type : Living will Advance Directive Date : 11/28/2017 EDT Copy Advance Directive Verified/on Chart : No Tessy Gramajo RN-PATIENT CARE [facility] - 10/15/2021 4:48 EDT Anesthesia/Transfusion History Family History of Anesthesia Reaction : No prior transfusion(s) Blood Transfusion Acceptable to Patient : Yes Transfusion History : Prior anesthesia without reaction Family History of Anesthesia Reaction : None Tessy Gramajo RN-PATIENT CARE [facility] - 10/15/2021 4:48 EDT Anticipated Discharge Needs Discharge To, Anticipated : Home Anticipated Discharge Needs at This Time : None Tsesy Gramajo RN-PATIENT CARE [facility] - 10/15/2021 4:48 EDT Education Topics, [...] : Verbalizes understanding Tessy Gramajo RN-PATIENT CARE [facility] - 10/15/2021 4:48 EDT Functional Assessment Living Situation : Home Patient Lives With : Spouse Persons Assisting Patient at Home : Spouse Current Daily Living Assistance : None Mobility Assistance Prior to Admission : Independent KOWALSKI Hx Falls Immediate/Within 3 Months : Yes Current Home Treatments : None Home Equipment : None Tessy Gramajo RN-PATIENT CARE [facility] - 10/15/2021 4:48 EDT General Info [...] Obtained From : Patient Primary Language : Austrian Communication Barrier : None Label Sewer Needed : No Tessy Gramajo RN-PATIENT CARE [...] Level : 46 or > High Risk Warren Fall Interventions : Adequate lighting, Assistive devices [...] Source : Stated Height Entry Format : [place] Height, Feet : 5 ft(Converted to: 152 cm, 60 Inch) Height, Inches : 6 Inch(Converted to: 0 ft 6 Inch, 15.24 cm) Clinical Height : 167.64 cm Weight Source : Bed scale Weight Entry Format : [place] Clinical Dosing Weight : 59.69 kg Weight, Pounds : 131 lb Weight, Ounces : 5 oz Body Surface Area (BSA) : 1.67 m2 Body Mass Index : 21.2 kg/m2 [place] Body Weight : 63 kg Tessy Gramajo RN-PATIENT CARE [facility] - 10/15/2021 4:48 EDT Infectious Disease History Does patient have symptoms of COVID-19? : No Tested for COVID19 in the past 14 days : No, Patient stated Does the Patient state known exposure to a COVID-19 positive case in the last 14 days? : No Patient Vaccinated for COVID-19 : Fully vaccinated Tessy Gramajo RN-PATIENT CARE [facility] - 10/15/2021 4:48 EDT Infectious Disease [...] day) : NO Tessy Gramajo RN-PATIENT C[facility] - 10/15/2021 4:48 EDT Physical contact outside [place] in the last 30 days : No Hospitalized in Foreign Country : No Infectious Disease History : Chicken pox/Shingles, Measles INF Disease TB Screening Calc : 0 INF Disease Recent Travel Calc : 0 Tessy Gramajo RN-PATIENT CARE [facility] - 10/15/2021 4:48 EDT Tetanus Immunization Status Previous Tetanus Immunizations : No qualifying data available. Tetanus Immunization : Greater than 5 years Tessy Gramajo RN-PATIENT C[facility] - 10/15/2021 4:48 EDT Influenza Vaccine Asmt, Adult Previous Vaccines from Immunization Schedule : No qualifying data available. Influenza Immunization, Current Season : Yes Tessy Gramajo RN-PATIENT C[facility] - 10/15/2021 4:48 EDT Pneumococcal Vaccine Previous Vaccines from Immunization Schedule : No qualifying data available. Pneumonia Immunization Received : Unknown Pneumococcal Risk Assessment < Age 65 : N/A- Patient 65 years of age or older Pneumococcal Vaccine Contraindications : No contraindications to pneumococcal vaccine Transplant Workup/Recent Transplant : No Order for Pneumococcal Vaccine : Declined Vaccination Tessy Gramajo RN-PATIENT [facility] - 10/15/2021 4:48 EDT Order Details Order Detail : N/A Patient Needs Meds Crushed/Liquid : No Tessy Gramajo RN-PATIENT [facility] - 10/15/2021 4:48 EDT Nutrition History Feeding Ability : Independent Adaptive Feeding Equipment : None Adaptive Feeding Equipment : Regular Eating Poorly Due to Decreased Appetite : Yes Unplanned Weight Loss in Past 3-6 Months : Unsure Unplanned Weight Loss Amount : Unsure Malnutrition Screening Tool Total(mal) : 5 Malnutrition Screening Tool Risk Level : Patient at risk Tessy Gramajo RN-PATIENT C[facility] - 10/15/2021 4:48 EDT Luce Suicide Severity Rating Scale (C-SSRS) CSSRS Past Month Wish to be : No CSSRS Past Month Suicidal Thoughts : No CSSRS Lifetime Suicide Behavior : No Suicide Severity Rating Score : 0 Suicide Severity Rating : No Additional Care Required at this time Tessy Gramajo RN-PATIENT C[facility] - 10/15/2021 4:48 EDT Psychosocial History Does Someone Depend on You for Care? : No Chronic/Terminal Illness w/Freq Visits : Yes Do You Have a History of the Following? : Patient denies history Currently in Unsafe Situation : No Do You Have a Support System? : Yes Tessy Gramajo RN-PATIENT [facility] - 10/15/2021 4:48 EDT Sleep Apnea [...] Score : 3 Tessy Gramajo RN-PATIENT [facility] - 10/15/2021 4:48 EDT Spiritual/Cultural Needs Any Spiritual/Cultural Needs or Requests : No Tessy Gramajo RN-PATIENT C[facility] - 10/15/2021 4:48 EDT Valuables and [...] on filedocumented in this encounter Care Teams Air Traffic Controller Center Relationship Specialty Start Date End Date Eladio Lomas MD [address] [place] [address] Medical Oncologist Hematology and Oncology 07/08/22 Breanna Crow, PA-C [address] [place] [address] Physician Automotive Internet Sales Manager Oncology 07/08/22 documented as of this encounter
--- OUTSIDE RECORDS SUMMARY | 2024-11-22 10:05 | XMS_ITS | Encounter Summary ---
Author Organization [employer] ([place], [place], [place], [place]) Address [address] [place] [address] Care Team Providers Care Rail Transit Operator Name Role Phone Eladio Lomas MD Unavailable Breanna Crow PA-C Unavailable [phone] Encounter Details Date Type Department Care Team (Late st Contact Info) Description 10/15/2021 Transcribed Document [facility] [place] Family Medicine [address] [place] [address] ProviderJailyn MD [address] [place] [address] Social History Tobacco Use Types [...] often do you attend chur ch or zoroastrian services? Never 07/08/2022 Do you belong to [...] Date Ata rded Speak language other than Mexican at home Not on file 05/13/2023 Want [...] w/ pt who endorsed a poor appetite DIRECTOR PROSPECT, 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 [...] Meds: benadryl, lovenox, Pepcid, KCl GI: LBM DIRECTOR PROSPECT, +BS Skin: no skin breakdown noted, healing [...] Energy Balance Related to : decreased appetitie DIRECTOR PROSPECT Energy Balance as Evidenced by : 50% [...] on filedocumented in this encounter Care Teams Rail Transit Operator Relationship Specialty Start Date End Date Eladio Lomas MD [address] [place] [address] Medical Oncologist Hematology and Oncology 07/08/22 Breanna Crow, PA-C [address] [place] [address] [place] [address] [address] Supervisor Oncology 07/08/22 documented as of this encounter
--- OUTSIDE RECORDS SUMMARY | 2024-11-22 10:05 | XMS_ITS | Encounter Summary ---
Author Organization [employer] ([place], [place], [place], [place]) Address [address] [place] [address] Care Team Providers Care Bottle Capping Machine Operator Name Role Phone Eladio Lomas MD Unavailable Breanna Crow PA-C Unavailable [phone] Encounter Details Date Type Department Care Team (Late st Contact Info) Description 10/15/2021 Transcribed Document [facility] [place] Family Medicine [address] [place] [address] ProviderJailyn MD [address] [place] [address] Social History Tobacco Use Types [...] Date Ata rded Speak language other than Azerbaijani at home Not on file 05/13/2023 Want [...] 10/15/2021 15:55 EDT Electronically signed by Huy, [facility] Conversion Trolley Car Mechanic Cerner at 08/17/2022 5:55 PM CDT documented in this encounter Plan of Treatment Not on file documented as of this encounter Visit Diagnoses Not on filedocumented in this encounter Care Teams Bottle Capping Machine Operator Relationship Specialty Start Date End Date Eladio Lomas MD [address] [facility] [address] [place] [address] Medical Oncologist Hematology and Oncology 07/08/22 Breanna Crow, PACecilia [address] [facility] [address] [place] [address] Physician Product Safety Head Oncology 07/08/22 documented as of this encounter
--- OUTSIDE RECORDS SUMMARY | 2024-11-22 10:05 | XMS_ITS | Encounter Summary ---
Author Organization [employer] ([place], [place], [place], [place]) Address [address] [place] [address] Care Team Providers Care Systems Qa Analyst Name Role Phone Eladio Lomas MD Unavailable Breanna Crow PA-C Unavailable [phone] Encounter Details Date Type Department Care Team (Late st Contact Info) Description 10/15/[address] [facility] [place] Family Medicine [address] [place] [address] ProviderJailyn MD [address] [place] [address] Social History Tobacco Use Types [...] often do you attend chur ch or mosque services? Never 07/08/2022 Do you belong to [...] on filedocumented in this encounter Care Teams Systems Qa Analyst Relationship Specialty Start Date End Date Eladio Lomas MD [address] [facility] [address], [place] [address] Medical Oncologist Hematology and Oncology 07/08/22 Breanna Crow, PA-C [address] [facility] [address] [place] [address] Physician Stroboscope Operator Oncology 07/08/22 documented as of this encounter
--- OUTSIDE RECORDS SUMMARY | 2024-11-22 10:05 | XMS_ITS | Encounter Summary ---
Author Organization [employer] ([place], [place], [place], [place]) Address [address] [place] [address] Care Team Providers Care Forest Fire Equipment Operator Name Role Phone Eladio Lomas MD Unavailable Breanna Crow PA-C Unavailable [phone] Encounter Details Date Type Department Care Team (Late st Contact Info) Description 10/15/2021 Transcribed Document [facility] [place] [address] [place] [address] ProviderJailyn MD [address] [place] [address] Social History Tobacco Use Types [...] often do you attend chur ch or hinduism services? Never 07/08/2022 Do you belong to [...] Date Ata rded Speak language other than Namibian at home Not on file 05/13/2023 Want [...] 10/15/2021 20:37 EDT Electronically signed by Huy [facility] Conversion Campaign Developer Cerner at 08/17/2022 6:14 PM CDT documented in this encounter Plan of Treatment Not on file documented as of this encounter Visit Diagnoses Not on filedocumented in this encounter Care Teams Forest Fire Equipment Operator Relationship Specialty Start Date End Date Eladio Lomas MD [address] [facility] [address], [place] [address] Medical Oncologist Hematology and Oncology 07/08/22 Breanna Crow, PA-C [address] [facility] [address] [place] [address] Physician System Analyst Oncology 07/08/22 documented as of this encounter
--- OUTSIDE RECORDS SUMMARY | 2024-11-22 10:05 | XMS_ITS | Encounter Summary ---
Author Organization [employer] ([place], [place], [place], [place]) Address [address] [place] [address] Care Team Providers Care Procedures Nurse Name Role Phone Eladio Lomas MD Unavailable Breanna Crow PA-C Unavailable [phone] Encounter Details Date Type Department Care Team (Late st Contact Info) Description 10/15/2021 Transcribed Document [facility] [place] Family Medicine [address] [place] [address] ProviderJailyn MD [address] [place] [address] Social History Tobacco Use Types [...] often do you attend chur ch or christian services? Never 07/08/2022 Do you belong to [...] Date Ata rded Speak language other than Sammarinese at home Not on file 05/13/2023 Want [...] Health Plan: [employer] PPO Policy Number: [id number] Authorization Number: Insurance Primary Name : [employer] PPO [id number] Authorization Status-Primary : Awaiting callback Reference Number-Primary : [id number] Authorized Service Begin Date-Primary : 10/15/2021 EDT Authorization Comments-Primary : Clinicals faxed via [facility] Historical Authorization Comments-Primary : Comment 1: [employer] PPO auth pending per Star note. (JUANITA HUGO, SHARYN-Utilization Review 10/15/2021 09:18) Natalie Lauren Rn-Utilization Review - 10/15/2021 9:30 EDT documented in this encounter Plan of Treatment Not on file documented as of this encounter Visit Diagnoses Not on filedocumented in this encounter Care Teams Procedures Nurse Relationship Specialty Start Date End Date Eladio Lomas MD [address] [facility] [address] [place] [address] Medical Oncologist Hematology and Oncology 07/08/22 Breanna Crow PA-C [address] [place] [address] [address] [place] [address] Physician Resolution Rep Oncology 07/08/22 documented as of this encounter
--- NOTE | 2024-11-22 10:06 | PC.NURSE ---
1006-collected labs via venipuncture stick in right ac with butterfly needle;pt to appt
--- OUTSIDE RECORDS SUMMARY | 2024-11-22 10:06 | XMS_ITS | Encounter Summary ---
Author Organization [employer] ([place], [place], [place], [place]) Address [address] [place] [address] Care Team Providers Care Saddle And Harness Maker Name Role Phone Eladio Lomas MD Unavailable Breanna Crow PA-C Unavailable [phone] Encounter Details Date Type Department Care Team (Late st Contact Info) Description 10/18/2021 Transcribed Document [facility] [place] Family Medicine [address] [place] [address] ProviderJaliyn MD [address] [place] [address] Social History Tobacco Use Types [...] any clubs o r organizations such as sikhism groups, unions, fraternal or athletic groups, or [...] Date Ata rded Speak language other than Eritrean at home Not on file 05/13/2023 Want [...] intense exercise for several days. ??? Take eqmf-zit-gzwgpqi and prescription medicines only as told by [...] not known. ??? Stay hydrated, and take bzvi-vtd-bzquucz and prescription medicines only as told by your health care provider. This information is not intended to replace advice given to you by your health care provider. Make sure you discuss any questions you have with your health care provider. Document Revised: 09/03/2020 Document Reviewed: 09/03/2020 [employer] Patient Education ? 2020 [employer]. documented in this encounter Plan of Treatment Not on file documented as of this encounter Visit Diagnoses Not on filedocumented in this encounter Care Teams Saddle And Harness Maker Relationship Specialty Start Date End Date Eladio Lomas MD [address] [facility] [address] [place] [address] Medical Oncologist Hematology and Oncology 07/08/22 Breanna Crow PA-C [address] [facility] [address] [place] [address] Physician Poultry Breeder Oncology 07/08/22 documented as of this encounter
--- OUTSIDE RECORDS SUMMARY | 2024-11-22 10:06 | XMS_ITS | Encounter Summary ---
Author Organization [employer] ([place], [place], [place], [place]) Address [address] [place] [address] Care Team Providers Care Service Worker Helper Name Role Phone Eladio Lomas MD Unavailable Breanna Crow PA-C Unavailable [phone] Encounter Details Date Type Department Care Team (Late st Contact Info) Description 10/18/2021 Transcribed Document [facility] [place] [address] [place] [address] ProviderJailyn MD [address] [place] [address] Social History Tobacco Use Types [...] often do you attend chur ch or jew services? Never 07/08/2022 Do you belong to [...] Historical Provider, - 10/18/2021 2:00 AM CDT Lye Machine Operator Details Entered On: 10/18/2021 2:19 EDT Performed [...] - 10/18/2021 2:19 EDT Electronically signed by [facility] Conversion Solvent Station Attendant Cerner at 08/17/2022 6:13 PM CDT documented in this encounter Plan of Treatment Not on file documented as of this encounter Visit Diagnoses Not on filedocumented in this encounter Care Teams Service Worker Helper Relationship Specialty Start Date End Date Eladio Lomas MD [address] [place] [address] Medical Oncologist Hematology and Oncology 07/08/22 Breanna Crow, PA-C [address] [facility] [address] [place] [address] Physician Refrigerating Oiler Oncology 07/08/22 documented as of this encounter
--- OUTSIDE RECORDS SUMMARY | 2024-11-22 10:06 | XMS_ITS | Encounter Summary ---
Author Organization [employer] ([place], [place], [place], [place]) Address [address] [place] [address] Care Team Providers Care Barrel Bander Name Role Phone Eladio Lomas MD Unavailable Breanna Crow PA-C Unavailable [phone] Encounter Details Date Type Department Care Team (Late st Contact Info) Description 10/16/2021 Transcribed Document [facility] [place] Family Medicine [address] [place] [address] ProviderJailyn MD [address] [place] [address] Social History Tobacco Use Types [...] Sent to Post Acute Providers : No [facility] Quality Web Info Shared w Pt/Fam [...] Luisa Zapien RN - 10/16/2021 11:03 EDT documented in this encounter Plan of Treatment Not on file documented as of this encounter Visit Diagnoses Not on filedocumented in this encounter Care Teams Barrel Bander Relationship Specialty Start Date End Date Eladio Lomas MD [address] [facility] [address] [place] [address] Medical Oncologist Hematology and Oncology 07/08/22 Breanna Crow PACecilia [address] [place], [place] [id number] Physician Parboiler Oncology 07/08/22 documented as of this encounter
--- OUTSIDE RECORDS SUMMARY | 2024-11-22 10:06 | XMS_ITS | Encounter Summary ---
Author Organization [employer] ([place], [place], [place], [place]) Address [address] [place] [address] Care Team Providers Care Corporate Tax Manager Name Role Phone Eladio Lomas MD Unavailable Breanna Crow PA-C Unavailable [phone] Encounter Details Date Type Department Care Team (Late st Contact Info) Description 10/16/2021 Transcribed Document [facility] [place] Family Medicine [address] [place] [address] ProviderJailyn MD [address] [place] [address] Social History Tobacco Use Types [...] lower motor neuron process.. Integumentary: Warm, Dry, [place]. Neurologic: Alert, Oriented, Cranial Nerves II-XII are [...] the setting of recent varicella. Disposition: Pending applications sales consultant recommendations and plan. May need rehab depending on PT/OT evaluation and clinical course. Discharge is answered at this time. VTE Prophylaxis - Medical Apixaban 10 mg, Oral, Tab, BID, order duration: 7 Day(s), Start 10/16/21 13:28:00 EDT, Stop 10/23/21 8:59:00 EDT (Wilberto Mayorag, PHYSICIAN-CLINIC) Medications acetaminophen-HYDROcodone 325 mg-5 mg oral [...] Lymph # 3.37 K/uL 10/16/2021 04:00 EDT [place] % 19.5 % (High) 10/16/2021 04:00 EDT [place] # 2.25 K/uL (High) 10/16/2021 04:00 EDT [...] ng/mL 10/16/2021 04:00 EDT Electronically signed by [facility] Conversion Warp Splitter Cerner at 08/17/2022 6:11 PM CDT documented in this encounter Plan of Treatment Not on file documented as of this encounter Visit Diagnoses Not on filedocumented in this encounter Care Teams Corporate Tax Manager Relationship Specialty Start Date End Date Eladio Lomas MD [address] [facility] [address] [place] [address] Medical Oncologist Hematology and Oncology 07/08/22 Breanna Crow, PA-C [address] [place] [address] Physician Eye Care Professional Oncology 07/08/22 documented as of this encounter
--- OUTSIDE RECORDS SUMMARY | 2024-11-22 10:06 | XMS_ITS | Encounter Summary ---
Author Organization [employer] ([place], [place], [place], [place]) Address [address] [place] [address] Care Team Providers Care Cradle Slide Maker Name Role Phone Eladio Lomas MD Unavailable Breanna Crow PA-C Unavailable [phone] Encounter Details Date Type Department Care Team (Late st Contact Info) Description 10/16/2021 Transcribed Document [facility] [place] [address] [place] [address] ProviderJailyn MD [address] [place] [address] Social History Tobacco Use Types [...] Date Ata rded Speak language other than Hong Konger at home Not on file 05/13/2023 Want [...] At risk for sleep apnea / IMO [id number] / Confirmed, Active Problems (2) At risk [...] 99 (CINDI 16 17:56) Electronically signed by [facility] Conversion Tester [employer]iconductor Packages Cerner at 08/17/2022 6:04 PM CDT documented in this encounter Plan of Treatment Not on file documented as of this encounter Visit Diagnoses Not on filedocumented in this encounter Care Teams Cradle Slide Maker Relationship Specialty Start Date End Date Eladio Lomas MD [address] [facility] [address], [place] [address] Medical Oncologist Hematology and Oncology 07/08/22 Breanna Crow PA-C [address] [facility] [address] [place] [address] Physician Bank Officer Oncology 07/08/22 documented as of this encounter
--- OUTSIDE RECORDS SUMMARY | 2024-11-22 10:06 | XMS_ITS | Encounter Summary ---
Author Organization [employer] ([place], [place], [place], [place]) Address [address] [place] [address] Care Team Providers Care Pr Internship Name Role Phone Eladio Lomas MD Unavailable Breanna Crow PA-C Unavailable [phone] Encounter Details Date Type Department Care Team (Late st Contact Info) Description 10/18/2021 Transcribed Document [facility] [address] [place] [address] ProviderJailyn MD [address] [place] [address] Social History Tobacco Use Types [...] 10/18/2021 12:27 EDT Electronically signed by Huy [facility] Conversion Coal Unloader Cerner at 08/17/2022 6:01 PM CDT documented in this encounter Plan of Treatment Not on file documented as of this encounter Visit Diagnoses Not on filedocumented in this encounter Care Teams Pr Internship Relationship Specialty Start Date End Date Eladio Lomas MD [address] [address] Medical Oncologist Hematology and Oncology 07/08/22 Breanna Crow, PA-C [address] [facility] [address] [place] [address] Physician Walking Dragline Oiler Oncology 07/08/22 documented as of this encounter
--- OUTSIDE RECORDS SUMMARY | 2024-11-22 10:06 | XMS_ITS | Encounter Summary ---
Author Organization [employer] ([place], [place], [place], [place]) Address [address] [place] [address] Care Team Providers Care Home Health Nurse Licensed Practical Name Role Phone Eladio Lomas MD Unavailable Breanna Crow PA-C Unavailable [phone] Encounter Details Date Type Department Care Team (Late st Contact Info) Description 10/18/2021 Transcribed Document [facility] [place] Family Medicine [address] [place] [address] ProviderJailyn MD [address] [place] [address] Social History Tobacco Use Types [...] any clubs o r organizations such as anabaptist groups, unions, fraternal or athletic groups, or [...] filedocumented in this encounter Care Teams Home Health Nurse Licensed Practical Relationship Specialty Start Date End Date Eladio Lomas MD [address] [facility] [address], [place] [address] Medical Oncologist Hematology and Oncology 07/08/22 Breanna Crow PA-C [address] [facility] [address] [place] [address] Physician Lacquer Maker Oncology 07/08/22 documented as of this encounter
--- OUTSIDE RECORDS SUMMARY | 2024-11-22 10:06 | XMS_ITS | Encounter Summary ---
Author Organization [employer] ([place], [place], [place], [place]) Address [address] [place] [address] Care Team Providers Care Filter Tender Name Role Phone Eladio Lomas MD Unavailable Breanna Crow PA-C Unavailable [phone] Encounter Details Date Type Department Care Team (Late st Contact Info) Description 10/18/2021 Transcribed Document [facility] [place] Family Medicine [address] [place] [address] ProviderJailyn MD [address] [place] [address] Social History Tobacco Use Types [...] Date Ata rded Speak language other than [place] at home Not on file 05/13/2023 Want [...] 14:35 EDT by Celina Marley Non Emp precision lens grinder Documentation Discharge Date/Time : 10/18/2021 12:50 EDT [...] on filedocumented in this encounter Care Teams Filter Tender Relationship Specialty Start Date End Date Eladio Lomas MD [address] [address] Medical Oncologist Hematology and Oncology 07/08/22 Breanna Crow PA-C [address] [facility] [address] [place] [address] Physician Household Coordinator Oncology 07/08/22 documented as of this encounter
--- OUTSIDE RECORDS SUMMARY | 2024-11-22 10:06 | XMS_ITS | Encounter Summary ---
Author Organization [employer] ([place], [place], [place], [place]) Address [address] [place] [address] Care Team Providers Care Coating Engineer Name Role Phone Eladio Lomas MD Unavailable Breanna Crow PA-C Unavailable [phone] Encounter Details Date Type Department Care Team (Late st Contact Info) Description 12/29/2021 Transcribed Document [facility] [place] [address] [place] [address] ProviderJailyn MD [address] [place] [address] Social History Tobacco Use Types [...] often do you attend chur ch or denominational services? Never 07/08/2022 Do you belong to [...] Date Ata rded Speak language other than [place] at home Not on file 05/13/2023 Want [...] Source : Stated Height Entry Format : [place] Height, Feet : 5 ft(Converted to: 152 cm, 60 Inch) Height, Inches : 6 Inch(Converted to: 0 ft 6 Inch, 15.24 cm) Clinical Height : 167.64 cm Weight Source : Standing scale Weight Entry Format : [place] Clinical Dosing Weight : 72.73 kg Weight, Pounds : 160 lb Body Surface Area (BSA) : 1.82 m2 Body Mass Index : 25.9 kg/m2 ([place]) [place] Body Weight : 63 kg JOSELINE MIRAMONTES [...] JOSELINE MIRAMONTES RN - 12/29/2021 10:51 EDT [place] Suicide Severity Rating Scale (C-SSRS) CSSRS Past [...] #2 Relationship : - Primary Language : [place] Communication Barrier : None Box Toe Cementer Needed : No JOSELINE MIRAMONTES RN - [...] on filedocumented in this encounter Care Teams Coating Engineer Relationship Specialty Start Date End Date Eladio Lomas MD [address] [facility] [address] [place] [address] Medical Oncologist Hematology and Oncology 07/08/22 Breanna Crwo PA-C [address] [facility] [address] [place] [address] Physician Food Safety Specialist Oncology 07/08/22 documented as of this encounter
--- OUTSIDE RECORDS SUMMARY | 2024-11-22 10:06 | XMS_ITS | Encounter Summary ---
Author Organization [email or web address] ([place], [place], [place], [place]) Address [address] [place] [address] Care Team Providers Care Base Ply Hand Name Role Phone Eladio Lomas MD Unavailable Breanna Crow PA-C Unavailable [phone] Encounter Details Date Type Department Care Team (Late st Contact Info) Description 01/01/[address] [facility] [place] [address] [place] [address] ProviderJailyn MD [address] [place] [address] Social History Tobacco Use Types [...] HU /Sex: 1950 Male Med Rec #: [id number] Physician: GARCIA WORKMAN MD-ORT Financial #: [id number] Pt. Type: O Room/Bed: [facility] Admit/Disch: 01/01/22 09:26:00 - [place] [facility] [place] Case Times Entry 1 In Preop 01/01/22 07:55:00 Ready for Holding n/a Room Patient Ready for 01/01/22 10:10:00 Surgery Patient Out of Preop 01/01/22 10:37:00 Patient Out of n/a Holding Room Last Modified By: Ansley Lane RN 01/01/22 10:47:06 [place] PreOp Case Times Audit 01/01/22 10:47:06 Direct Service Worker: [id number] Modifier: [id number] <+> 1 Patient Out of Preop Finalized By: Ansley Lane, RN Document Signatures Signed By: Ansley Lane RN 01/01/22 10:47 documented in this encounter Plan of Treatment Not on file documented as of this encounter Visit Diagnoses Not on filedocumented in this encounter Care Teams Base Ply Hand Relationship Specialty Start Date End Date Eladio Lomas MD [address] [facility] [address] [address] Medical Oncologist Hematology and Oncology 07/08/22 Breanna Crow PA-C [address] [facility] [address] [place] [address] Physician Instructor Programmable Controllers Oncology 07/08/22 documented as of this encounter
--- OUTSIDE RECORDS SUMMARY | 2024-11-22 10:06 | XMS_ITS | Encounter Summary ---
Author Organization [employer] ([place], [place], [place], [place]) Address [address] [place] [address] Care Team Providers Care Horologist Apprentice Name Role Phone Eladio Lomas MD Unavailable Breanna Crow PA-C Unavailable [phone] Encounter Details Date Type Department Care Team (Late st Contact Info) Description 01/01/2022 Transcribed Document [facility] [place] [address] [place] [address] ProviderJailyn MD [address] [place] [address] Social History Tobacco Use Types [...] HU /Sex: 1950 Male Med Rec #: [id number] Physician: GARCIA WORKMAN MD-ORT Financial #: [id number] Pt. Type: O Room/Bed: [facility] Admit/Disch: 01/01/22 09:26:00 - Institution: [facility] PACU Case Times Entry 1 In PACU I 01/01/22 11:50:00 Ready for PACU 01/01/22 12:38:00 Discharge Discharge from PACU 01/01/22 12:38:00 I Last Modified By: Lashay Liu RN 01/01/22 12:45:05 [facility] Main [facility] PACU Case Times Audit 01/01/22 12:45:05 Concrete Block Maker: SXPOWERS Modifier: SXPOWERS <+> 1 Ready for PACU Discharge <+> 1 Discharge from PACU I Finalized By: Lashay Liu, RN Document Signatures Signed By: Lashay Liu RN 01/01/22 12:45 Electronically signed by Huy [facility] Conversion Certification Officer Cerner at 08/17/2022 5:57 PM CDT documented in this encounter Plan of Treatment Not on file documented as of this encounter Visit Diagnoses Not on filedocumented in this encounter Care Teams Horologist Apprentice Relationship Specialty Start Date End Date Eladio Lomas MD 1210 [facility] [address] [address] Medical Oncologist Hematology and Oncology 07/08/22 Breanna Crow PA-C [address] [facility] [address] [place] [address] Physician Mds Manager Oncology 07/08/22 documented as of this encounter
--- OUTSIDE RECORDS SUMMARY | 2024-11-22 10:06 | XMS_ITS | Encounter Summary ---
Author Organization [employer] ([place], [place], [place], [place]) Address [address] [place] [address] Care Team Providers Care Community Health Promoter Name Role Phone Eladio Lomas MD Unavailable Breanna Crow PA-C Unavailable [phone] Encounter Details Date Type Department Care Team (Late st Contact Info) Description 10/18/2021 Transcribed Document [facility] [place] Family Medicine [address] [place] [address] ProviderJailyn MD [address] [place] [address] Social History Tobacco Use Types [...] : Yes Discharge To Care Management : Home/Residential/Penitentiary or Self Care -01 ROMERO MCMANUS RN [...] on filedocumented in this encounter Care Teams Community Health Promoter Relationship Specialty Start Date End Date Eladio Lomas MD [address] [facility] [address] [place] [address] Medical Oncologist Hematology and Oncology 07/08/22 Breanna Crow PACecilia [address] [facility] [address] [place] [address] Physician Manager Compensation Oncology 07/08/22 documented as of this encounter
--- OUTSIDE RECORDS SUMMARY | 2024-11-22 10:06 | XMS_ITS | Encounter Summary ---
Author Organization [employer] ([place], [place], [place], [place]) Address [address] [place] [address] Care Team Providers Care Business Development Consultant Name Role Phone Eladio Lomas MD Unavailable Breanna Crow PA-C Unavailable [phone] Encounter Details Date Type Department Care Team (Late st Contact Info) Description 10/19/2021 Transcribed Document [facility] [place] [address] [place] [address] ProviderJailyn MD [address] [place] [address] Social History Tobacco Use Types [...] On: 10/19/2021 13:08 EDT by KEI JEAN-BAPTISTE Band Nailer Primary Insurance Authorization Authorization and Policy Numbers : Insurance 1 Health Plan: [employer] CHO[employer] PPO Policy Number: [id number] Authorization Number: Insurance Primary Name : [employer]ICE PPO [id number] Authorization Status-Primary : Denied Reference Number-Primary : [id number] Authorized Service Begin Date-Primary : 10/15/2021 EDT Authorization Comments-Primary : Rec faxed Denial from [employer] 10/19/21 Placed in tray on JJs desk Historical Authorization Comments-Primary : Comment 1: [employer] CHO[employer] PPO auth still pending per availity (JUANITA HUGO, SHARYN-Utilization Review 10/19/2021 11:01) Comment 2: Clinicals faxed via [employer] (Natalie Lauren, Rn-Utilization Review 10/15/2021 09:30) Comment 3: [employer] CHOICE PPO auth pending per Star note. (JUANITA HUGO, RN-Utilization Review 10/15/2021 09:18) KEI JEAN-BAPTISTE, Band Nailer - 10/19/2021 13:08 EDT Electronically signed by Huy [facility] Conversion Cell Coverer Cerner at 08/17/2022 6:16 PM CDT documented in this encounter Plan of Treatment Not on file documented as of this encounter Visit Diagnoses Not on filedocumented in this encounter Care Teams Business Development Consultant Relationship Specialty Start Date End Date Eladio Lomas MD [address] [facility] [address] [place] [address] Medical Oncologist Hematology and Oncology 07/08/22 Breanna Crow PA-C [address] [facility] [address] [place] [address] Physician Vault Clerk Oncology 07/08/22 documented as of this encounter
--- OUTSIDE RECORDS SUMMARY | 2024-11-22 10:06 | XMS_ITS | Encounter Summary ---
Author Organization [employer] ([place], [place], [place], [place]) Address [address] [place] [address] Care Team Providers Care Customer Service Technician Name Role Phone Eladio Lomas MD Unavailable Breanna Crow PA-C Unavailable [phone] Encounter Details Date Type Department Care Team (Late st Contact Info) Description 10/26/2021 Transcribed Document [facility] [place] [address] [place] [address] ProviderJailyn MD [address] [place] [address] Social History Tobacco Use Types [...] Discharge Summary on 10/18/2021 by Wilberto Brantley CDS/Exhibition Specialist Signature: Gui Hughes. Mehreen Phone #: Date/Time: 10/27/2021 00:42 This is a permanent part of the Medical Record Q55 2020 [employer] Reviewed: 07/2020 Q55 2020 [employer] Reviewed: 07/2020 documented in this encounter Plan of Treatment Not on file documented as of this encounter Visit Diagnoses Not on filedocumented in this encounter Care Teams Customer Service Technician Relationship Specialty Start Date End Date Eladio Lomas MD [address] [facility] [address] [place] [address] Medical Oncologist Hematology and Oncology 07/08/22 Breanna Crow, PACecilia [address] [facility] [address] [place] [address] Physician Conductor And Engineer Oncology 07/08/22 documented as of this encounter
--- OUTSIDE RECORDS SUMMARY | 2024-11-22 10:06 | XMS_ITS | Encounter Summary ---
Author Organization [employer] ([place], [place], [place], [place]) Address [address] [place] [address] Care Team Providers Care Horse Racing Analyst Name Role Phone Eladio Lomas MD Unavailable Breanna Crow PA-C Unavailable [phone] Encounter Details Date Type Department Care Team (Late st Contact Info) Description 12/29/2021 Transcribed Document [facility] [place] Family Medicine [address] [place] [address] ProviderJailyn MD [address] [place] [address] Social History Tobacco Use Types [...] Attends Club or Organization Meetings Not on ajlen e 07/08/2022 Are you , , di [...] Date Ata rded Speak language other than Algerian at home Not on file 05/13/2023 Want [...] MVP - 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 Pt denies [...] # 7.60 K/uL (High) 12/29/2021 10:31 EDT [place] % 14.8 % (High) 12/29/2021 10:31 EDT [place] # 2.11 K/uL (High) 12/29/2021 10:31 EDT [...] pending Cotinine - pending Electronically signed by [facility] Conversion Kiln Cleaner Cerner at 08/17/2022 6:07 PM CDT documented in this encounter Plan of Treatment Not on file documented as of this encounter Visit Diagnoses Not on filedocumented in this encounter Care Teams Horse Racing Analyst Relationship Specialty Start Date End Date Eladio Lomas MD [address] [facility] [address] [place] [address] Medical Oncologist Hematology and Oncology 07/08/22 Breanna Crow PA-C [address] [place] [address] Physician Behavioral Health Care Coordinator Oncology 07/08/22 documented as of this encounter
--- OUTSIDE RECORDS SUMMARY | 2024-11-22 10:06 | XMS_ITS | Encounter Summary ---
Author Organization [employer] ([place], [place], [place], [place]) Address [address] [place] [address] Care Team Providers Care Nurse Gynecology Name Role Phone Eladio Lomas MD Unavailable Breanna Crow PA-C Unavailable [phone] Encounter Details Date Type Department Care Team (Late st Contact Info) Description 10/16/2021 Transcribed Document [facility] [place] Family Medicine [address] [place] [address] ProviderJailyn MD [address] [place] [address] Social History Tobacco Use [...] often do you attend chur ch or episcopalian services? Never 07/08/2022 Do you belong to any clubs o r organizations such as nondenominational groups, unions, fraternal or athletic groups, or [...] on filedocumented in this encounter Care Teams Nurse Gynecology Relationship Specialty Start Date End Date Eladio Lomas MD [address] [address] Medical Oncologist Hematology and Oncology 07/08/22 Breanna Crow PA-C [address] [place] [address] [address] [place] [address] Physician Warper Fixer Oncology 07/08/22 documented as of this encounter
--- OUTSIDE RECORDS SUMMARY | 2024-11-22 10:06 | XMS_ITS | Encounter Summary ---
Author Organization [employer] ([place], [place], [place], [place]) Address [address] [place] [address] Care Team Providers Care Coremaker Helper Name Role Phone Eladio Lomas MD Unavailable Breanna Crow PA-C Unavailable [phone] Encounter Details Date Type Department Care Team (Late st Contact Info) Description 10/19/2021 Transcribed Document [facility] [place] Family Medicine [address] [place] [address] ProviderJailyn MD [address] [place] [address] Social History Tobacco Use Types [...] any clubs o r organizations such as anabaptism groups, unions, fraternal or athletic groups, or [...] Health Plan: [employer] PPO Policy Number: [id number] Authorization Number: Insurance Primary Name : [employer] PPO [id number] Authorization Status-Primary : Awaiting callback Reference Number-Primary : [id number] Authorized Service Begin Date-Primary : 10/15/2021 EDT Authorization Comments-Primary : [employer] PPO auth still pending per availity Historical Authorization Comments-Primary : Comment 1: Clinicals faxed via [employer] (Natalie Lauren, Rn-Utilization Review 10/15/2021 09:30) Comment 2: [employer] PPO auth pending per Star note. (JUANITA HUGO, RN-Utilization Review 10/15/2021 09:18) JUANITA HUGO RN-Utilization Review - 10/19/2021 11:01 EDT documented in this encounter Plan of Treatment Not on file documented as of this encounter Visit Diagnoses Not on filedocumented in this encounter Care Teams Coremaker Helper Relationship Specialty Start Date End Date Eladio Lomas MD [address] [facility] [address] [place] [address] Medical Oncologist Hematology and Oncology 07/08/22 Breanna Crow PA-C [address] [facility] [address] [place] [address] Physician Statistician Oncology 07/08/22 documented as of this encounter
--- OUTSIDE RECORDS SUMMARY | 2024-11-22 10:06 | XMS_ITS | Encounter Summary ---
Author Organization [employer] ([place], [place], [place], [place]) Address [address] [place] [address] Care Team Providers Care Slasher Hand Name Role Phone Eladio Lomas MD Unavailable Breanna Crow PA-C Unavailable [phone] Encounter Details Date Type Department Care Team (Late st Contact Info) Description 10/17/2021 Transcribed Document [facility] [place] Family Medicine [address] [place] [address] ProviderJailyn MD [address] [place] [address] Social History Tobacco Use Types [...] any clubs o r organizations such as congregation groups, unions, fraternal or athletic groups, or [...] lower motor neuron process.. Integumentary: Warm, Dry, [place]. Neurologic: Alert, Oriented, Cranial Nerves II-XII are [...] the rash. Leukocytosis, procalcitonin ordered. Disposition: Pending staffing consultant recommendations and plans, still needs further [...] # 4.35 K/uL (High) 10/17/2021 02:21 EDT [place] % 15.2 % (High) 10/17/2021 02:21 EDT [place] # 2.14 K/uL (High) 10/17/2021 02:21 EDT [...] Second(s) 10/17/2021 02:21 EDT Electronically signed by [facility] Conversion Geothermal Powerplant Mechanic Cerner at 08/17/2022 6:20 PM CDT documented in this encounter Plan of Treatment Not on file documented as of this encounter Visit Diagnoses Not on filedocumented in this encounter Care Teams Slasher Hand Relationship Specialty Start Date End Date Eladio Lomas MD 12[address] [facility] [address] [place] [address] Medical Oncologist Hematology and Oncology 07/08/22 Breanna Crow PA-C [address] [facility] [address] [place] [address] Physician Concrete Pipe Maker Oncology 07/08/22 documented as of this encounter
--- OUTSIDE RECORDS SUMMARY | 2024-11-22 10:06 | XMS_ITS | Encounter Summary ---
Author Organization [employer] ([place], [place], [place], [place]) Address [address] [place] [address] Care Team Providers Care Design Consultant Name Role Phone Eladio Lomas MD Unavailable Breanna Crow PA-C Unavailable [phone] Encounter Details Date Type Department Care Team (Late st Contact Info) Description 10/16/2021 Transcribed Document [facility] [place] [address] [place] [address] ProviderJailyn MD [address] [place] [address] Social History Tobacco Use Types [...] any clubs o r organizations such as adventist groups, unions, fraternal or athletic groups, or [...] Date Ata rded Speak language other than [place] Islander at home Not on file 05/13/2023 [...] - 10/16/2021 18:44 EDT Electronically signed by Huy [facility] Conversion Principle Industrial Hygienist Cerner at 08/17/2022 6:20 PM CDT documented in this encounter Plan of Treatment Not on file documented as of this encounter Visit Diagnoses Not on filedocumented in this encounter Care Teams Design Consultant Relationship Specialty Start Date End Date Eladio Lomas MD 12[address] [facility] [address] [address] Medical Oncologist Hematology and Oncology 07/08/22 Breanna Crow, PA-C [address] [facility] [address] [place] [address] Physician Tightening Machine Operator Oncology 07/08/22 documented as of this encounter
--- OUTSIDE RECORDS SUMMARY | 2024-11-22 10:06 | XMS_ITS | Encounter Summary ---
Author Organization [employer] ([place], [place], [place], [place]) Address [address] [place] [address] Care Team Providers Care Milieu Coordinator Name Role Phone Eladio Lomas MD Unavailable Breanna Crow PA-C Unavailable [phone] Encounter Details Date Type Department Care Team (Late st Contact Info) Description 10/20/2021 Transcribed Document [facility] [place] [address] [place] [address] ProviderJailyn MD [address] [place] [address] Social History Tobacco Use Types [...] Health Plan: [employer] CHOICE PPO Policy Number: [id number] Authorization Number: Insurance Primary Name : [employer] CHOICE PPO [id number] Authorization Status-Primary : Denied Reference Number-Primary : [id number] Authorized Service Begin Date-Primary : 10/15/2021 EDT Authorization Comments-Primary : Emailed denial to [employer] Historical Authorization Comments-Primary : Comment 1: Rec faxed Denial from [employer] 10/19/21 Placed in tray on [employer] desk (KEI JEAN-BAPTISTE, Sales And Catering Coordinator 10/19/2021 13:08) Comment 2: [employer] PPO auth still pending per availity (JUANITA HUGO, RN-Utilization Review 10/19/2021 11:01) Comment 3: Clinicals faxed via [employer] (Natalie Lauren, Stephanie-Utilization Review 10/15/2021 09:30) Comment 4: [employer] CHOICE PPO auth pending per Star note. (JUANITA HUGO, RN-Utilization Review 10/15/2021 09:18) DIETER MAR RN - 10/20/2021 13:43 EDT Electronically signed by Rock Son Conversion Senior Sql Server Database Developer Nyasia at 08/17/2022 6:13 PM CDT documented in this encounter Plan of Treatment Not on file documented as of this encounter Visit Diagnoses Not on filedocumented in this encounter Care Teams Milieu Coordinator Relationship Specialty Start Date End Date Eladio Lomas MD [address] [facility] [address] [place] [address] Medical Oncologist Hematology and Oncology 07/08/22 Breanna Crow PA-C [address] [facility] [address] [place] [address] Physician License And Permit Specialist Oncology 07/08/22 documented as of this encounter
--- OUTSIDE RECORDS SUMMARY | 2024-11-22 10:06 | XMS_ITS | Encounter Summary ---
Author Organization [email or web address] ([place], [place], [place], [place]) Address [address] [place] [address] Care Team Providers Care Brim Flexer Name Role Phone Eladio Lomas MD Unavailable Breanna Crow PA-C Unavailable [phone] Encounter Details Date Type Department Care Team (Late st Contact Info) Description 10/18/2021 Transcribed Document [facility] [place] Family Medicine [address] [place] [address] ProviderJailyn MD [address] [place] [address] Social History Tobacco Use Types [...] Date Ata rded Speak language other than Sudanese at home Not on file 05/13/2023 Want [...] Historical Provider, - 10/18/2021 12:28 [place] [address] CORBIN HU :1950 Visit Time:10/15/2021 Your Visit [...] TRENA PANIAGUA When Within 2 weeks Where: [facility] [address] [address] Business (1) Medications What How Much When [...] 10 mg daily in total Pickup at [facility] #[id number] This evening predniSONE (predniSONE 10 mg oral tablet) See instructions Taper course of prednisone as following: First day 6 tabs, second day 5 tabs, third day 4 tabs, fourth day 3 tabs, fifth day 2 tabs, sixth day 1 tab, seventh half tab and eighth half tab Pickup at [facility] #[id number] This afternoon valACYclovir (Valtrex 500 mg oral [...] instructions 1 Oral Daily Tomorrow Pharmacy Information [facility] #[id number]: [address] [place] [phone] Take your medications faithfully. Do NOT skip [...] intense exercise for several days. ??? Take njsq-jbn-neslhes and prescription medicines only as told by [...] not known. ??? Stay hydrated, and take mypw-phr-txruyfv and prescription medicines only as told by your health care provider. This information is not intended to replace advice given to you by your health care provider. Make sure you discuss any questions you have with your health care provider. Document Revised: 09/03/2020 Document Reviewed: 09/03/2020 [employer] Patient Education ?? 2020 [employer]. Emergency Awareness and Preventative Care STROKE is [...] Assistance with quitting is available by contacting 2-304-OTNZNOW. This is a free resource providing counseling, [...] range between ( 1.0 and 7.0 ) [place] #: 2.80 K/uL -- Normal range between ( 0.24 and 0.82 ) [place] #: 0.00 K/uL -- Normal range between ( 0.04 and 0.54 ) [place] %: 17.6 % -- Normal range between [...] #: 4 K/uL ANC #: 5 K/uL [place] Percent Man: 19 % -- Normal range [...] was given the opportunity to ask questions. Patient/Long Filler Cigar Roller Machine Name: Patient/Long Filler Cigar Roller Machine Signature: Relationship to Patient: Clinician/Hospital Long Filler Cigar Roller Machine Signature: Date: documented in this encounter Plan of Treatment Not on file documented as of this encounter Visit Diagnoses Not on filedocumented in this encounter Care Teams Brim Flexer Relationship Specialty Start Date End Date Eladio Lomas MD 12[address] [facility] [address] [place] [address] Medical Oncologist Hematology and Oncology 07/08/22 Breanna Crow, PA-C [address] [address] Physician Accounts Payables Clerk Oncology 07/08/22 documented as of this encounter
--- OUTSIDE RECORDS SUMMARY | 2024-11-22 10:06 | XMS_ITS | Encounter Summary ---
Author Organization [employer] ([place], [place], [place], [place]) Address [address] [place] [address] Care Team Providers Care Restaurant Shift Supervisor Name Role Phone Eladio Lomas MD Unavailable Breanna Crow PA-C Unavailable [phone] Encounter Details Date Type Department Care Team (Late st Contact Info) Description 10/16/2021 Transcribed Document [facility] [place] [address] [place] [address] ProviderJailyn MD [address] [place] [address] Social History Tobacco Use Types [...] often do you attend chur ch or confucianist services? Never 07/08/2022 Do you belong to [...] Date Ata rded Speak language other than Faroese at home Not on file 05/13/2023 Want [...] - 10/16/2021 14:27 EDT Electronically signed by [facility], [facility] Conversion Vascular Physician Cerner at 08/17/2022 6:05 PM CDT documented in this encounter Plan of Treatment Not on file documented as of this encounter Visit Diagnoses Not on filedocumented in this encounter Care Teams Restaurant Shift Supervisor Relationship Specialty Start Date End Date Eladio Lomas MD 1210 [facility] [address] [place] [address] Medical Oncologist Hematology and Oncology 07/08/22 Breanna Crow, PACecilia [address] [facility] [address] [place] [address] Physician Quarter Doper Oncology 07/08/22 documented as of this encounter
--- OUTSIDE RECORDS SUMMARY | 2024-11-22 10:06 | XMS_ITS | Encounter Summary ---
Author Organization [employer] ([place], [place], [place], [place]) Address [address] [place] [address] Care Team Providers Care Reed Man Name Role Phone Eladio Lomas MD Unavailable Breanna Crow PA-C Unavailable [phone] Encounter Details Date Type Department Care Team (Late st Contact Info) Description 10/16/2021 Transcribed Document [facility] [place] Family Medicine [address] [place] [address] ProviderJailyn MD [address] [place] [address] Social History Tobacco Use Types [...] often do you attend chur ch or jehovah's witness services? Never 07/08/2022 Do you belong to [...] Historical Provider, - 10/16/2021 2:00 AM CDT Windshield Repair Technician Details Entered On: 10/16/2021 4:15 EDT Performed On: 10/16/2021 2:00 EDT by Tessy Gramajo RN-PATIENT CARE BEDSIDE NON-EXEMPT Order Details Order Detail : N/A Patient Needs Meds Crushed/Liquid : No Tessy Gramajo RN-PATIENT CARE BEDSIDE NON-EXEMPT - 10/16/2021 4:15 EDT Electronically signed by Huy [facility] Conversion Cable Splicer Assistant Cerner at 08/17/2022 6:18 PM CDT documented in this encounter Plan of Treatment Not on file documented as of this encounter Visit Diagnoses Not on filedocumented in this encounter Care Teams Reed Man Relationship Specialty Start Date End Date Eladio Lomas MD 12[address] [facility] [address] [address] Medical Oncologist Hematology and Oncology 07/08/22 Breanna Crow, PACecilia [address] [facility] [address] [place] [address] Physician Gravel Inspector Oncology 07/08/22 documented as of this encounter
--- OUTSIDE RECORDS SUMMARY | 2024-11-22 10:06 | XMS_ITS | Encounter Summary ---
Author Organization [employer] ([place], [place], [place], [place]) Address [address] [place] [address] Care Team Providers Care Farmworker Brooder Farm Name Role Phone Eladio Lomas MD Unavailable Breanna Crow PA-C Unavailable [phone] Encounter Details Date Type Department Care Team (Late st Contact Info) Description 12/29/2021 Transcribed Document [facility] [place] [address] [place] [address] ProviderJailyn MD [address] [place] [address] Social History Tobacco Use Types [...] any clubs o r organizations such as taoism groups, unions, fraternal or athletic groups, or [...] rded Speak language other than Citizen Of [place] at home Not on file 05/13/2023 Want [...] 12/29/2021 10:30 EDT Electronically signed by Huy [facility] Conversion Collar Cutter Cerner at 08/17/2022 6:19 PM CDT documented in this encounter Plan of Treatment Not on file documented as of this encounter Visit Diagnoses Not on filedocumented in this encounter Care Teams Farmworker Brooder Farm Relationship Specialty Start Date End Date Eladio Lomas MD [address] [facility] [address] [place] [address] Medical Oncologist Hematology and Oncology 07/08/22 Breanna Crow, PA-C 34[address] [facility] [address] [place] [address] Physician Glove Sewer Oncology 07/08/22 documented as of this encounter
--- OUTSIDE RECORDS SUMMARY | 2024-11-22 10:06 | XMS_ITS | Encounter Summary ---
Author Organization [employer] ([place], [place], [place], [place]) Address [address] [place] [address] Care Team Providers Care Cut Out Press Operator Name Role Phone Eladio Lomas MD Unavailable Breanna Crow PA-C Unavailable [phone] Encounter Details Date Type Department Care Team (Late st Contact Info) Description 10/16/2021 Transcribed Document [facility] Family Medicine [address] [place] [address] ProviderJailyn MD [address] [place] [address] Social History Tobacco Use Types [...] any clubs o r organizations such as yarsanism groups, unions, fraternal or athletic groups, or [...] On: 10/16/2021 15:13 EDT by Jessica Rivera, [facility] Unit Coord Phone Call for Consults Consult Phone Call/Page Attempt : First call Physician Covering for Consult : TRENA DONAHUE MD-INF Consult, Additional Information : Consult called in to Dr. Trena Donahue, he stated that if Dr Edwin Carver had not seen them today, he would see them tomorrow Jessica Rivera, [facility] Coord - 10/16/2021 17:43 EDT Electronically signed by Huy [facility] Conversion Research Associate Molecular Biology Cerner at 08/17/2022 6:08 PM CDT documented in this encounter Plan of Treatment Not on file documented as of this encounter Visit Diagnoses Not on filedocumented in this encounter Care Teams Cut Out Press Operator Relationship Specialty Start Date End Date Eladio Lomas MD [address] [address] Medical Oncologist Hematology and Oncology 07/08/22 Breanna Crow, PA-C [address] [place] [address] [address] [place] [address] Physician Faith Healer Oncology 07/08/22 documented as of this encounter
--- OUTSIDE RECORDS SUMMARY | 2024-11-22 10:06 | XMS_ITS | Encounter Summary ---
Author Organization [employer] ([place], [place], [place], [place]) Address [address] [place] [address] Care Team Providers Care Renderer Name Role Phone Eladio Lomas MD Unavailable Breanna Crow PA-C Unavailable [phone] Encounter Details Date Type Department Care Team (Late st Contact Info) Description 10/29/2021 Transcribed Document [facility] [place] Family Medicine [address] [place] [address] ProviderJailyn MD [address] [place] [address] Social History Tobacco Use Types [...] Health Plan: [employer] CHOICE PPO Policy Number: [id number] Authorization Number: Insurance Primary Name : [employer] CHOICE PPO [id number] Authorization Status-Primary : Denied Reference Number-Primary : [id number] Authorized Service Begin Date-Primary : 10/15/2021 EDT [...] 13:43) Comment 2: Rec faxed Denial from [facility] 10/19/21 Placed in tray on [employer] desk (KEI JEAN-BAPTISTE, Police Crime Scene Technician 10/19/2021 13:08) Comment 3: [employer] CHOICE PPO auth still pending per availity (JUANITA HUGO, SHARYN-Utilization Review 10/19/2021 11:01) Comment 4: Clinicals faxed via [employer] (Natalie Lauren, Sharyn-Utilization Review 10/15/2021 09:30) Comment 5: [employer] CHOICE PPO auth pending per Star note. (JUANITA HUGO RN-Utilization Review 10/15/2021 09:18) DIETER MAR RN - 10/29/2021 8:47 EDT documented in this encounter Plan of Treatment Not on file documented as of this encounter Visit Diagnoses Not on filedocumented in this encounter Care Teams Renderer Relationship Specialty Start Date End Date Eladio Lomas MD 1210 [facility] [address] [address] Medical Oncologist Hematology and Oncology 07/08/22 Breanna Crow, CHAVA [address] [address] Physician Manager Site Oncology 07/08/22 documented as of this encounter
--- OUTSIDE RECORDS SUMMARY | 2024-11-22 10:06 | XMS_ITS | Encounter Summary ---
Author Organization [employer] ([place], [place], [place], [place]) Address [address] [place] [address] Care Team Providers Care Drilling Inspector Name Role Phone Eladio Lomas MD Unavailable Breanna Crow PA-C Unavailable [phone] Encounter Details Date Type Department Care Team (Late st Contact Info) Description 10/16/2021 Transcribed Document [facility] [place] [address] [place] [address] ProviderJailyn MD [address] [place] [address] Social History Tobacco Use Types [...] - 10/16/2021 14:01 EDT Electronically signed by [facility], [facility] Conversion Bedspread Inspector Cerner at 08/17/2022 5:59 PM CDT documented in this encounter Plan of Treatment Not on file documented as of this encounter Visit Diagnoses Not on filedocumented in this encounter Care Teams Drilling Inspector Relationship Specialty Start Date End Date Eladio Lomas MD 1210 [facility] [address] [place] [address] Medical Oncologist Hematology and Oncology 07/08/22 Breanna Crow, PACecilia 3470 [facility] [address] [place] [address] Physician Export Specialist Oncology 07/08/22 documented as of this encounter
--- OUTSIDE RECORDS SUMMARY | 2024-11-22 10:06 | XMS_ITS | Encounter Summary ---
Author Organization [employer] ([place], [place], [place], [place]) Address [address] [place] [address] Care Team Providers Care Stock Car Driver Name Role Phone Eladio Lomas MD Unavailable Breanna Crow PA-C Unavailable [phone] Encounter Details Date Type Department Care Team (Late st Contact Info) Description 10/16/2021 Transcribed Document [facility] [address] [place] [address] Romero Dias MD [address] [place] [address] Social History Tobacco Use Types [...] Date Ata rded Speak language other than Kittitian at home Not on file 05/13/2023 Want [...] no evidence of a meningeal encephalitis or [place]?? secondary to his varicella and I [...] Shortness of Breath Lovenox: 40 mg, SubCutaneous, [id number] MiraLax: 17 Gram, Oral, Daily, PRN: Constipation [...] mL inj 40 mg 0.4 mL, SubCutaneous, [id number] famotidine 20 mg tab 20 mg 1 [...] At risk for sleep apnea / IMO [id number] / Confirmed, Active Problems (2) At risk [...] lower motor neuron process.. Integumentary: Warm, Dry, [place]. Neurologic: Alert, Oriented, Cranial Nerves II-XII are [...] on filedocumented in this encounter Care Teams Stock Car Driver Relationship Specialty Start Date End Date Eladio Lomas MD [address] [address] Medical Oncologist Hematology and Oncology 07/08/22 Breanna Crow PA-C [address] [facility] [address] [place] [address] Physician Executive Producer Promos Oncology 07/08/22 documented as of this encounter
[2024-11-22 10:20] LABS: Albumin Level 4.1 g/dl (3.5-5.0); Chloride 101 mmol/L (98-107); Potassium 4.1 mmoL/L (3.5-5.1); Sodium 135 mmol/L (136-145)
[2024-11-22 10:23] LABS: Alanine Aminotransferase 19 U/L (12-78); Albumin/Globulin Ratio 2.1 (1.1-1.8); Alkaline Phosphatase 77 U/L (38-126); Anion Gap 8.1 mEq/L (5-15); Aspartate Amino Transferase 21 U/L (17-59); Bilirubin,Total 0.3 mg/dl (0.2-1.3); Blood Urea Nitrogen 18 mg/dl (9-20); Calcium 9.1 mg/dl (8.4-10.2); Carbon Dioxide 30 mmol/L (22.0-30.0); Creatinine,Serum 0.90 mg/dl (0.66-1.25); Estimated Glomerular Filt Rate 82 ml/min (>60); GFR (African American) 99 ML/MIN (>60); Globulin 2.0 g/dL (1.3-3.2); Glucose 69 mg/dl (74-100); Total Protein,Serum 6.1 g/dl (6.3-8.2)
[2024-11-22 10:30] LABS: Hematocrit 31.9 % (42.0-52.0); Hemoglobin 9.7 g/dL (14.1-18.0); Immature Granulocytes % 0.1 %; Mean Corpuscular HGB Conc 30.4 g/dL (31.8-35.4); Mean Corpuscular Hemoglobin 31.8 pg (27.0-31.2); Mean Corpuscular Volume 104.6 fl (80-94); Nucleated Red Blood Cells % 0 %; Platelet Count 141 K/mm3 (142-424); Red Blood Count 3.05 M/mm3 (4.60-6.20); Red Cell Distribution Width-SD 57.5 fL
[2024-11-22 10:37] LABS: White Blood Count 53.3 K/mm3 (4.8-10.8)
[2024-11-22 11:22] LABS: Total Cells Counted 100
[2024-11-22 11:28] LABS: Macrocytosis 2+
== END 2024-11-22 10:10 | disposition home or self-care (01) ==
LOC: INF 10:01
PROVIDERS: PCP Family Medicine; Visit Provider Internal Medicine Medical Oncology
DX: C91.12 Chronic lymphocytic leukemia of B-cell type in relapse (principal)
CPT/HCPCS: 36415; 80053; 85007; 85025; 85027

== ENCOUNTER 2024-11-22 11:49 | Outpatient (CLI) | payer MEDICARE, SELFPAY ==
--- OUTSIDE RECORDS SUMMARY | 2024-11-22 11:52 | XMS_ITS | Encounter Summary ---
Author Organization [facility] Address [address] [id number] Care Team Providers Care Drop Hammer Mechanic Name Role Phone Per Patient, None Primary Care Provider Unavaila ble Encounter Details Date Type Department Care Team ([facility] st Contact Info) Description 10/08/2021 Lab Requisition [facility] [address] [place] [address] Maurice Power MD [facility] [place] [address] Unspecified lesions of oral mucosa [...] billing purposes only. 10/26/2021 7:22 AM EDT [facility] at 0722 EDT Case Report Surgical Pathology Report Case: [id number] Authorizing Provider: Maurice Power MD Collected: 10/08/2021 Ordering Location: [facility] Received: 10/08/2021 2526 Pathologist: Cindy Flores MD Specimen: [id number] 10/26/2021 7:22 AM EDT [facility] Tissue 10/08/2021 10/08/2021 4:5 9 PM EDT us Maurice Power MD LAB PATHOLOGY ORDERABLES Final Result [facility] [address] [place] [address] documented in this encounter Visit Diagnoses Diagnosis Unspecified lesions of oral mucosa documented in this encounter Care Teams Drop Hammer Mechanic Relationship Specialty Start Date End Date Per Patient, [place] [address] PCP - General 05/02/20 documented as of this encounter
--- OUTSIDE RECORDS SUMMARY | 2024-11-22 11:52 | XMS_ITS | Referral Summary ---
Author Organization [employer] ([place], [place], [place], [place]) Address [address] [place] [address] Care Team Providers Care Construction Lineman Name Role Phone Eladio Lomas MD Unavailable Breanna Crow PA-C Unavailable [phone] Allergies Active Allergy Reactions Criticality Noted [...] often do you attend chur ch or yarsanism services? Never 07/08/2022 Do you belong to [...] Plan of Treatment [place] [address] [facility] MEDICARE PPO [employer] MEDICARE PPO Care Teams Construction Lineman Relationship Specialty Start Date End Date Eladio Lomas MD 1210 [facility] [address] [place] [address] Medical Oncologist Hematology and Oncology 07/08/22 Breanna Crow PA-C 3470 [facility] [address] [place] [address] Physician Investment Sales Assistant Oncology 07/08/22
--- OUTSIDE RECORDS SUMMARY | 2024-11-22 11:52 | XMS_ITS | Encounter Summary ---
Author Organization [employer] ([place], [place], [place], [place]) Address [address] [place] [address] Care Team Providers Care Industrial Health And Safety Professor Name Role Phone Eladio Lomas MD Unavailable Breanna Crow PA-C Unavailable [phone] Encounter Details Date Type Department Care Team (Late st Contact Info) Description 10/17/2021 Transcribed Document [facility] [place] [address] [place] [address] ProviderJailyn MD [address] [place] [address] Social History Tobacco Use Types [...] # 4.35 K/uL (High) 10/17/2021 02:21 EDT [place] % 15.2 % (High) 10/17/2021 02:21 EDT [place] # 2.14 K/uL (High) 10/17/2021 02:21 EDT [...] filedocumented in this encounter Care Teams Industrial Health And Safety Professor Relationship Specialty Start Date End Date Eladio Lomas MD 1210 [facility] [address] [place] [address] Medical Oncologist Hematology and Oncology 07/08/22 Breanna Crow PA-C 1006 [facility] [address] [place] [address] Physician Reducing Salon Attendant Oncology 07/08/22 documented as of this encounter
--- OUTSIDE RECORDS SUMMARY | 2024-11-22 11:52 | XMS_ITS | Encounter Summary ---
Author Organization [employer] ([place], [place], [place], [place]) Address [address] [place] [address] Care Team Providers Care Mattress Packer Name Role Phone Eladio Lomas MD Unavailable Breanna Crow PA-C Unavailable [phone] Encounter Details Date Type Department Care Team (Late st Contact Info) Description 10/17/2021 Transcribed Document [facility] [place] Family Medicine [address] [place] [address] ProviderJailyn MD [address] [place] [address] Social History Tobacco Use [...] often do you attend chur ch or taoist services? Never 07/08/2022 Do you belong to [...] Date Ata rded Speak language other than Kyrgyz at home Not on file 05/13/2023 Want [...] Historical Provider, - 10/17/2021 2:00 AM CDT Barrel Leveler Details Entered On: 10/17/2021 5:10 EDT Performed [...] - 10/17/2021 5:09 EDT Electronically signed by [facility], [facility] Conversion Reimbursement Rep Cerner at 08/17/2022 6:17 PM CDT documented in this encounter Plan of Treatment Not on file documented as of this encounter Visit Diagnoses Not on filedocumented in this encounter Care Teams Mattress Packer Relationship Specialty Start Date End Date Eladio Lomas MD [address] [place] [address] Medical Oncologist Hematology and Oncology 07/08/22 Breanna Crow, PA-C [address] [facility] [address] [place] [address] Physician Petroleum Refining Equipment Operator Oncology 07/08/22 documented as of this encounter
--- OUTSIDE RECORDS SUMMARY | 2024-11-22 11:52 | XMS_ITS | Clinical Summary ---
Author Organization [employer] ([place], [place], [place], [place]) Address [address] [place] [address] Care Team Providers Care Core Layer Machine Operator Name Role Phone Eladio Lomas MD Unavailable Breanna Crow PA-C Unavailable [phone] Allergies Active Allergy Reactions Criticality Noted [...] Date Ata rded Speak language other than Gibraltarian at home Not on file 05/13/2023 Want [...] exists Pneumococcal 50+ years Completed 02/09/2022 Insurance [employer] MEDICARE PPO HUMANA MEDICARE PPO Care Teams Core Layer Machine Operator Relationship Specialty Start Date End Date Elaido Lomas MD 1210 [facility] [address] [place] [address] Medical Oncologist Hematology and Oncology 07/08/22 Breanna Crow PARebelC 3470 [facility] [address] [place] [address] Physician Electron Beam Welder Setter Oncology 07/08/22
--- OUTSIDE RECORDS SUMMARY | 2024-11-22 11:52 | XMS_ITS | Clinical Summary ---
[facility] Address [address] [place] [address] Care Team Providers Care Anesthesia Attending Name Role Phone Provider, No Known Primary [...] 02/05/2021, , 01/17/2020, Additional history exists Insurance [facility] MEDICARE ADVANTAGE Care Teams Anesthesia Attending Relationship Specialty Start Date End Date Provider, No Known [facility] [address] PCP - General 10/07/21
--- OUTSIDE RECORDS SUMMARY | 2024-11-22 11:52 | XMS_ITS | Encounter Summary ---
Author Organization [employer] ([place], [place], [place], [place]) Address [address] [place] [address] Care Team Providers Care Motor Equipment Sergeant Name Role Phone Eladio Lomas MD Unavailable Breanna Crow PA-C Unavailable [phone] Encounter Details Date Type Department Care Team (Late st Contact Info) Description 10/17/2021 Transcribed Document [facility] [place] Family Medicine [address] [place] [address] ProviderJailyn MD [address] [place] [address] Social History Tobacco Use Types [...] Date Ata rded Speak language other than Vietnamese at home Not on file 05/13/2023 Want [...] to assume that as it was a trade sales assistant who did the biopsy, and and told [...] At risk for sleep apnea / IMO [id number] / Confirmed, Active Problems (2) At risk for sleep apnea Mitral valve prolapse documented in this encounter Plan of Treatment Not on file documented as of this encounter Visit Diagnoses Not on filedocumented in this encounter Care Teams Motor Equipment Sergeant Relationship Specialty Start Date End Date Eladio Lomas MD 1210 [facility] [address] [place] [address] Medical Oncologist Hematology and Oncology 07/08/22 Breanna Crow PA-C [address] [address] Physician Prior Authorization Technician Oncology 07/08/22 documented as of this encounter
--- OUTSIDE RECORDS SUMMARY | 2024-11-22 11:52 | XMS_ITS | Encounter Summary ---
Author Organization [employer] ([place], [place], [place], [place]) Address [address] [place] [address] Care Team Providers Care Drafter Electronic Name Role Phone Eladio Lomas MD Unavailable Breanna Crow PA-C Unavailable [phone] Encounter Details Date Type Department Care Team (Late st Contact Info) Description 10/15/2021 Transcribed Document [facility] [place] [address] [place] [address] ProviderJailyn MD [address] [place] [address] Social History Tobacco Use Types [...] Date Ata rded Speak language other than Bangladeshi at home Not on file 05/13/2023 Want [...] - 10/15/2021 6:53 EDT Electronically signed by Huy [facility] Conversion Copy Room Technician Cerner at 08/17/2022 6:19 PM CDT documented in this encounter Plan of Treatment Not on file documented as of this encounter Visit Diagnoses Not on filedocumented in this encounter Care Teams Drafter Electronic Relationship Specialty Start Date End Date Eladio Lomas MD 1210 [facility] [place], [place] [address] Medical Oncologist Hematology and Oncology 07/08/22 Breanna Crow PACecilia [address] [place] [address] [address] [place] [address] Physician University Administrative Assistant Oncology 07/08/22 documented as of this encounter
--- OUTSIDE RECORDS SUMMARY | 2024-11-22 11:52 | XMS_ITS | Encounter Summary ---
Author Organization Healthcare Address [address] [place] [address] Care Team Providers Care Tv Technician Name Role Phone Per Patient, None Primary Care Provider Unavaila ble Encounter Details Date Type Department Care Team (Late st Contact Info) Description 01/07/2021 Orders Only [facility] at [facility] [address] [place] [address] Maurisio Aguilar MD [address] [address] Social History Tobacco Use Types [...] Band Neutrophil% 0.0 0.0 - 7.0 % [facility] External Atypical Lymph% 4(H) 0 - 1 % [facility] External Metamyelocyte % 0 0 - 1 % [facility] External Myelocyte % 0 0 - 1 % [facility] External Promyelocyte% 0 % [facility] External Blast% 0 % [facility] External Nucleated RBC%-Manual 0 /100 WBC [facility] External Smudge Cells 0 [facility] External Platelet Morphology NORMAL [facility] External Ovalocytes SLIGHT(A) [facility] External Tear Drop Cells SLIGHT(A) [facility] 01/07/2021 10:0 5 AM EDT 01/07/2021 10:20 AM EDT us Maurisio Aguilar MD LAB BLOOD ORDERABLES Final Res ult Performing Organization Address City/State/[facility] Co de Phone Number [facility] [address] [place] [address], documented in this encounter Visit Diagnoses Not on filedocumented in this encounter Care Teams Tv Technician Relationship Specialty Start Date End Date Per Patient, [place] [address] PCP - General 05/02/20 documented as of this encounter
--- OUTSIDE RECORDS SUMMARY | 2024-11-22 11:52 | XMS_ITS | Encounter Summary ---
Author Organization Healthcare Address [address] [place] [address] Care Team Providers Care Belting And Webbing Inspector Name Role Phone Per Patient, None Primary Care Provider Unavaila ble Encounter Details Date Type Department Care Team (Late st Contact Info) Description 01/07/2021 Orders Only [facility] at [facility] [address] [place] [address] Maurisio Aguilar MD [address] [address] Social History Tobacco Use Types [...] External WBC 6.9 3.8 - 10.8 K/uL [facility] External Red Blood Cell (RBC) 5.24 4.20 - 5.80 M/uL [facility] External Hemoglobin 15.5 14.0 - 18.0 G/DL [facility] External Hematocrit 44.1 40.0 - 52.0 % [facility] External MCV 84 80 - 100 fL [facility] External MCH 30 26 - 35 PG [facility] External MCHC 35 32 - 36 G/DL [facility] External RDW 13.5 11.0 - 15.0 % [facility] External Mean Platelet Volume 7.6 6.2 - 10.5 fL [facility] External Platelets 162 130 - 400 K/uL [facility] External Neutrophil# 3.0 1.6 - 8.4 K/uL [facility] External Lymphocyte# 3.2 0.4 - 5.1 K/uL [facility] External Absolute Monocyte (Abs [place]) 0.4 0.0 - 1.2 K/uL [facility] External Eosinophils# 0.1 0.0 - 0.8 K/uL [facility] External Baso# 0.0 0.0 - 0.3 K/uL [facility] External Neutrophils % 43.0 42.0 - 78.0 % [facility] External Lymphocyte % 46.0 11.0 - 47.0 % [facility] External Monocyte % 6.0 0.0 - 11.0 % [facility] External Eosinophil% 1.0 0.0 - 7.0 % [facility] External Basophil % 0.0 0.0 - 3.0 % [facility] External Nucleated RBC%-Auto 0.2 0.0 - 0.9 % [facility] External Nucleated RBC Absolute 0.01 Not Estab. K/uL [facility] 01/07/2021 10:0 5 AM EDT 01/07/2021 10:20 AM EDT us Maurisio Aguilar MD LAB BLOOD ORDERABLES Final Res ult Performing Organization Address City/State/[facility] Co de Phone Number [facility] [address] [phone], documented in this encounter Visit Diagnoses Not on filedocumented in this encounter Care Teams Belting And Webbing Inspector Relationship Specialty Start Date End Date Per Patient, [place] [address] PCP - General 05/02/20 documented as of this encounter
--- OUTSIDE RECORDS SUMMARY | 2024-11-22 11:52 | XMS_ITS | Encounter Summary ---
Author Organization [employer] ([place], [place], [place], [place]) Address [address] [place] [address] Care Team Providers Care Security Threat Analyst Name Role Phone Eladio Lomas MD Unavailable Breanna Crow PA-C Unavailable [phone] Encounter Details Date Type Department Care Team (Late st Contact Info) Description 10/17/2021 Transcribed Document [facility] Family Medicine [address] [place] [address] ProviderJailyn MD [address] [place] [address] Social History Tobacco Use Types [...] any clubs o r organizations such as yazdanism groups, unions, fraternal or athletic groups, or [...] 5:08 EDT Electronically signed by Huy [facility] Conversion Construction Foreman Cerner at 08/17/2022 6:00 PM CDT documented in this encounter Plan of Treatment Not on file documented as of this encounter Visit Diagnoses Not on filedocumented in this encounter Care Teams Security Threat Analyst Relationship Specialty Start Date End Date Eladio Lomas MD [address] [facility] [address] [place] [address] Medical Oncologist Hematology and Oncology 07/08/22 Breanna Crow PA-C [address] [facility] [address] [place] [address] Physician Bid Writer Oncology 07/08/22 documented as of this encounter
--- OUTSIDE RECORDS SUMMARY | 2024-11-22 11:52 | XMS_ITS | Clinical Summary ---
Author Organization [facility] Address [address] [place] [address] Care Team Providers Care Unit Assistant Name Role Phone Per Patient, None Primary [...] or (1 - 1-dose 75+ series) 01/05/2023 [id number] Vaccine ( - 2023- season) 2024 07/25/2020, [...] this topic Insurance [employer] MEDICARE Care Teams Unit Assistant Relationship Specialty Start Date End Date Per Patient, [place] [address] PCP - General 05/02/20
--- OUTSIDE RECORDS SUMMARY | 2024-11-22 11:52 | XMS_ITS | Encounter Summary ---
Author Organization [employer] ([place], [place], [place], [place]) Address [address] [place] [address] Care Team Providers Care Implementation Manager Name Role Phone Eladio Lomas MD Unavailable Breanna Crow PA-C Unavailable [phone] Encounter Details Date Type Department Care Team (Late st Contact Info) Description 10/17/2021 Transcribed Document [facility] Family Medicine [address] [place] [address] ProviderJailyn MD [address] [place] [address] Social History Tobacco Use Types [...] Date Ata rded Speak language other than Uruguayan at home Not on file 05/13/2023 Want [...] to fall prompting him to come to [facility] ED on 10/15. 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 A CT scan of lumbar spine [...] with pancreatic cancer SH: , lives in [place], [place]. Former remotes smoker, denies alcohol, or [...] WBC H 14.1 (CINDI 18) H 11.5 (CNIDI 17) H 11.3 (CINDI 16) H 11.9 [...] None Rad: Radiology Results (Last 48 hours) [id number] -- 10/15/2021 03:06 MRI Spine Thoracic WO [...] Dr. Trena Donahue. Electronically signed by Huy [facility] Conversion Carnival Worker Cerner at 08/17/2022 6:00 PM CDT documented in this encounter Plan of Treatment Not on file documented as of this encounter Visit Diagnoses Not on filedocumented in this encounter Care Teams Implementation Manager Relationship Specialty Start Date End Date Eladio Lomas MD [address] [facility] [address] [place] [address] Medical Oncologist Hematology and Oncology 07/08/22 Breanna Crow PA-C [address] [facility] [address] [place] [address] Physician Nurse Examiner Oncology 07/08/22 documented as of this encounter
--- OUTSIDE RECORDS SUMMARY | 2024-11-22 11:53 | XMS_ITS | Encounter Summary ---
Author Organization [employer] ([place], [place], [place], [place]) Address [address] [place] [address] Care Team Providers Care Sandwich Wrapper Name Role Phone Eladio Lomas MD Unavailable Breanna Crow PA-C Unavailable [phone] Encounter Details Date Type Department Care Team (Late st Contact Info) Description 10/15/2021 Transcribed Document [facility] Family Medicine [address] [place] [address] ProviderJailyn MD [address] [place] [address] Social History Tobacco Use Types [...] Date Ata rded Speak language other than Monegasque at home Not on file 05/13/2023 Want [...] by Tessy Gramajo RN-PATIENT CARE [facility]EMPT Advance Directive Patient has Advance Directive *Q : Yes, Advance Directive not with the patient Advance Directive Type : Living will Advance Directive Date : 11/28/2017 EDT Copy Advance Directive Verified/on Chart : No Tessy Gramajo RN-PATIENT CARE [facility] - 10/15/2021 4:48 EDT Anesthesia/Transfusion History Family History of Anesthesia Reaction : No prior transfusion(s) Blood Transfusion Acceptable to Patient : Yes Transfusion History : Prior anesthesia without reaction Family History of Anesthesia Reaction : None Tessy Gramajo RN-PATIENT CARE [facility] - 10/15/2021 4:48 EDT Anticipated Discharge Needs Discharge To, Anticipated : Home Anticipated Discharge Needs at This Time : None Tessy Gramajo RN-PATIENT CARE [facility] - 10/15/2021 4:48 EDT Education Topics, [...] understanding Tessy Gramajo RN-PATIENT CARE [facility] - 10/15/2021 4:48 EDT Functional Assessment Living Situation : Home Patient Lives With : Spouse Persons Assisting Patient at Home : Spouse Current Daily Living Assistance : None Mobility Assistance Prior to Admission : Independent KOWAL[place]I Hx Falls Immediate/Within 3 Months : Yes Current Home Treatments : None Home Equipment : None Tessy Gramajo RN-PATIENT CARE [facility] - 10/15/2021 4:48 EDT General Info [...] Obtained From : Patient Primary Language : Monegasque Communication Barrier : None Fuel Pilot Engineer Needed : No Tessy Gramajo RN-PATIENT CARE [...] Level : 46 or > High Risk [place] Fall Interventions : Adequate lighting, Assistive devices [...] Source : Stated Height Entry Format : [place] Height, Feet : 5 ft(Converted to: 152 cm, 60 Inch) Height, Inches : 6 Inch(Converted to: 0 ft 6 Inch, 15.24 cm) Clinical Height : 167.64 cm Weight Source : Bed scale Weight Entry Format : [place] Clinical Dosing Weight : 59.69 kg Weight, Pounds : 131 lb Weight, Ounces : 5 oz Body Surface Area (BSA) : 1.67 m2 Body Mass Index : 21.2 kg/m2 [place] Body Weight : 63 kg Tessy Gramajo RN-PATIENT CARE [facility] - 10/15/2021 4:48 EDT Infectious Disease History Does patient have symptoms of COVID-19? : No Tested for COVID19 in the past 14 days : No, Patient stated Does the Patient state known exposure to a COVID-19 positive case in the last 14 days? : No Patient Vaccinated for COVID-19 : Fully vaccinated Tessy Gramajo RN-PATIENT C[facility] - 10/15/2021 4:48 EDT Infectious Disease [...] NO Tessy Gramajo RN-PATIENT C[facility] - 10/15/2021 4:48 EDT Physical contact outside [place] in the last 30 days : No Hospitalized in Foreign Country : No Infectious Disease History : Chicken pox/Shingles, Measles INF Disease TB Screening Calc : 0 INF Disease Recent Travel Calc : 0 Tessy Gramajo RN-PATIENT [facility] - 10/15/2021 4:48 EDT Tetanus Immunization Status Previous Tetanus Immunizations : No qualifying data available. Tetanus Immunization : Greater than 5 years Tessy Gramajo RN-PATIENT C[facility] - 10/15/2021 4:48 EDT Influenza Vaccine Asmt, Adult Previous Vaccines from Immunization Schedule : No qualifying data available. Influenza Immunization, Current Season : Yes Tessy Gramajo RN-PATIENT [facility] - 10/15/2021 4:48 EDT Pneumococcal Vaccine [...] Vaccination Tessy Gramajo RN-PATIENT [facility] - 10/15/2021 4:48 EDT Order Details Order Detail : N/A Patient Needs Meds Crushed/Liquid : No Tessy Gramajo RN-PATIENT [facility] - 10/15/2021 4:48 EDT Nutrition History [...] risk Tessy Gramajo RN-PATIENT [facility] - 10/15/2021 4:48 EDT [place] Suicide Severity Rating Scale (C-SSRS) CSSRS Past Month Wish to be : No CSSRS Past Month Suicidal Thoughts : No CSSRS Lifetime Suicide Behavior : No Suicide Severity Rating Score : 0 Suicide Severity Rating : No Additional Care Required at this time Tessy Gramajo RN-PATIENT [facility] - 10/15/2021 4:48 EDT Psychosocial History Does Someone Depend on You for Care? : No Chronic/Terminal Illness w/Freq Visits : Yes Do You Have a History of the Following? : Patient denies history Currently in Unsafe Situation : No Do You Have a Support System? : Yes Tessy Gramajo RN-PATIENT C[facility] - 10/15/2021 4:48 EDT Sleep Apnea [...] 3 Tessy Gramajo RN-PATIENT [facility] - 10/15/2021 4:48 EDT Spiritual/Cultural Needs Any Spiritual/Cultural Needs or Requests : No Tessy Gramajo RN-PATIENT [facility] - 10/15/2021 4:48 EDT Valuables and [...] on filedocumented in this encounter Care Teams Sandwich Wrapper Relationship Specialty Start Date End Date Eladio Lomas MD [address] [place] [address] Medical Oncologist Hematology and Oncology 07/08/22 Breanna Crow, PA-C [address] [place] [address] Physician Visitor Services Information Assistant Oncology 07/08/22 documented as of this encounter
--- OUTSIDE RECORDS SUMMARY | 2024-11-22 11:53 | XMS_ITS | Encounter Summary ---
Author Organization [employer] ([place], [place], [place], [place]) Address [address] [place] [address] Care Team Providers Care Telephonic Nurse Case Manager Name Role Phone Eladio Lomas MD Unavailable Breanna Crow PA-C Unavailable [phone] Encounter Details Date Type Department Care Team (Late st Contact Info) Description 01/01/2022 Transcribed Document [facility] [place] Medicine [address] [place] [address] ProviderJailyn MD [address] [place] [address] Social History Tobacco Use Types [...] often do you attend chur ch or orthodoxy services? Never 07/08/2022 Do you belong to any clubs o r organizations such as yazidi groups, unions, fraternal or athletic groups, or [...] HU /Sex: 1950 Male Med Rec #: [id number] Physician: GARCIA WORKMAN MD-ORT Financial #: [id number] Pt. Type: O Room/Bed: [facility] Admit/Disch: 01/01/22 09:26:00 - Institution: [facility] [place] PostOp Case Times Entry 1 In PACU II 01/01/22 12:41:00 Ready for PACU II 01/01/22 13:10:00 Discharge Discharge from PACU 01/01/22 13:20:00 II Last Modified By: DAYANA BALLARD, RN 01/01/22 13:28:32 [facility] PostOp Case Times Audit 01/01/22 13:28:32 Industrial Analyst: [email or web address] Modifier: [email or web address] <+> 1 Ready for PACU II Discharge <+> 1 Discharge from PACU II Finalized By: DAYANA BALLARD, RN Document Signatures Signed By: DAYANA BALLARD, RN 01/01/22 13:28 Electronically signed by Huy [facility] Conversion Mortician Helper Cerner at 08/17/2022 6:16 PM CDT documented in this encounter Plan of Treatment Not on file documented as of this encounter Visit Diagnoses Not on filedocumented in this encounter Care Teams Telephonic Nurse Case Manager Relationship Specialty Start Date End Date Eladio Lomas MD [address] [facility] [address] [address] Medical Oncologist Hematology and Oncology 07/08/22 Breanna Crow PA-C [address] [facility] [address] [place] [address] Physician Aerodynamic Consultant Oncology 07/08/22 documented as of this encounter
--- OUTSIDE RECORDS SUMMARY | 2024-11-22 11:53 | XMS_ITS | Encounter Summary ---
Author Organization [employer] ([place], [place], [place], [place]) Address [address] [place] [address] Care Team Providers Care Pipe Fitter Supervisor Maintenance Name Role Phone Eladio Lomas MD Unavailable Breanna Crow PA-C Unavailable [phone] Encounter Details Date Type Department Care Team (Late st Contact Info) Description 10/15/2021 Transcribed Document [facility] [facility] Family Medicine [address] [place] [address] ProviderJailyn MD [address] [place] [address] Social History Tobacco Use Types [...] often do you attend chur ch or pentecostalism services? Never 07/08/2022 Do you belong to [...] & time 10/15/2021 00:00:00, Voice recognition / associate project manager technology used for some documentation in this [...] CATH WINJX HRT ART& L VENTR IMG ([id number]).. Family history: Not significant. Social history: Social [...] EDT Height Source Stated Height Entry Format [place] Height/Length, MALAGASY (ft) 5 ft Height/Length MALAGASY 6 Inch CLINICALHEIGHT 167.64 cm [place] Body Weight 62.88 kg Weight Source, ED Critical estimated dosing weight Weight Entry Format [place] Weight [place] lb 180 lb CLINICALWEIGHT 81.82 kg Body [...] Triage: ED C-SSRS: ED Clinical Reconciliation: ED burring wheel operator: ESR Sedimentation Rate Auto: Saline Lock Insert: [...] SEX: 1950 / Male MRN / ACC#: [id number] / [id number] ORDERING PHYSICIAN: Matt Whitman. EXAM REQUESTED: [id number]--[place] LUMBAR SPINE W/O CONTRAST FACILITY: [facility] DATE: 10/15/2021 RADIOLOGIST NAME: MD Lim [...] understanding of instructions. Electronically signed by Huy [facility] Conversion Personal Computer Specialist Cerner at 08/17/2022 6:02 PM CDT documented in this encounter Plan of Treatment Not on file documented as of this encounter Visit Diagnoses Not on filedocumented in this encounter Care Teams Pipe Fitter Supervisor Maintenance Relationship Specialty Start Date End Date Eladio Lomas MD [address] [address] Medical Oncologist Hematology and Oncology 07/08/22 Breanna Crow, PA-C [address] [place] [address] [place] [address] Physician Charhouse Worker Oncology 07/08/22 documented as of this encounter
--- OUTSIDE RECORDS SUMMARY | 2024-11-22 11:53 | XMS_ITS | Encounter Summary ---
Author Organization [employer] ([place], [place], [place], [place]) Address [address] [place] [address] Care Team Providers Care Music Worker Name Role Phone Eladio Lomas MD Unavailable Breanna Crow PA-C Unavailable [phone] Encounter Details Date Type Department Care Team (Late st Contact Info) Description 01/01/2022 Transcribed Document [facility] [place] [address] [place] [address] ProviderJailyn MD [address] [place] [address] Social History Tobacco Use Types [...] any clubs o r organizations such as scientologist groups, unions, fraternal or athletic groups, or [...] Historical Provider, - 01/01/2022 12:58 [place] [address] SARAH HU :1950 Visit Time:01/01/2022 What to [...] for follow-up date and appointment time Activity: [place] dressing. Do not remove. May shower with [...] MD-ORT When 01/14/2022 11:00 AM EDT Where: [address] [place] [address] [address] [place] [address]- Medications What How Much When Instructions Next Dose acetaminophen-oxyCODONE (Percocet 7.5/ 325 oral tablet) 1 Tablet(s) Oral Three Times A Day as needed for for pain Pickup at [facility] acetaminophen (Tylenol 325 mg oral tablet) 2 Tablet(s) Oral Every 4 Hours as needed for Pain (Mild 1-3) ergocalciferol (ergocalciferol 50 mcg (2000 intl units) oral capsule) 1 Capsule(s) Oral Every Day Duration: 14 Day(s) multivitamin (Multiple Vitamins oral tablet) 1 Tablet(s) Oral Every Day valACYclovir (Valtrex 1 g oral tablet) 1 Tablet(s) Oral Every Day Pharmacy Information [facility]: [address] [place] [address] [phone] Take your medications faithfully. Do NOT skip [...] these instructions at home: Medicines ??? Take nklb-rjn-invqlve and prescription medicines as told by your [...] keep your urine pale yellow. ? Take ehbv-vgd-szvdagv or prescription medicines. ? Eat foods that [...] and water are not available, use hand box cutter. ? Change your dressing as told by [...] safe to drive. General instructions ??? Take tghk-hqc-gcrsokh and prescription medicines only as told by [...] provider. Document Revised: 08/06/2020 Document Reviewed: 08/06/2020 [employer] Patient Education ?? 2021 [employer] Laminectomy, Care After This sheet gives [...] these instructions at home: Medicines ??? Take dwur-xxx-nkqclqg and prescription medicines only as told by [...] keep your urine pale yellow. ? Take fzqi-wuz-njjaacr or prescription medicines. ? Eat foods that [...] and water are not available, use hand box cutter. ? Change your dressing as told by [...] provider. Document Revised: 11/12/2019 Document Reviewed: 11/12/2019 [employer] Patient Education ?? 2021 [employer]. Emergency Awareness and Preventative Care STROKE is [...] Assistance with quitting is available by contacting 2-431-LOIY-NOW. This is a free resource providing counseling, [...] was given the opportunity to ask questions. Patient/Spindle Tester Name: Patient/Spindle Tester Signature: Relationship to Patient: Clinician/Hospital Spindle Tester Signature: Date: documented in this encounter Plan of Treatment Not on file documented as of this encounter Visit Diagnoses Not on filedocumented in this encounter Care Teams Music Worker Relationship Specialty Start Date End Date Eladio Lomas MD [address] [facility] [address] [place], [place] [id number] Medical Oncologist Hematology and Oncology 07/08/22 Breanna Crow PARebelC [address] [facility] [address] [place] [address] Physician Licensed Guide Oncology 07/08/22 documented as of this encounter
--- OUTSIDE RECORDS SUMMARY | 2024-11-22 11:53 | XMS_ITS | Encounter Summary ---
Author Organization [employer] ([place], [place], [place], [place]) Address [address] [place] [address] Care Team Providers Care Vice President Quality Name Role Phone Eladio Lomas MD Unavailable Breanna Crow PA-C Unavailable [phone] Encounter Details Date Type Department Care Team (Late st Contact Info) Description 10/14/2021 Transcribed Document [facility] Family Medicine [address] [place] [address] ProviderJailyn MD [address] [place] [address] Social History Tobacco Use Types [...] any clubs o r organizations such as scientology groups, unions, fraternal or athletic groups, or [...] Historical Provider, - 10/14/2021 6:20 PM CDT [place] Suicide Severity Rating Scale (C-SSRS) Entered On: 10/14/2021 18:34 EDT Performed On: 10/14/2021 18:33 EDT by UOG FAN, RN [place] Suicide Severity Rating Scale (C-SSRS) CSSRS Past Month Wish to be : No CSSRS Past Month Suicidal Thoughts : No CSSRS Lifetime Suicide Behavior : No Suicide Severity Rating Score : 0 Suicide Severity Rating : No Additional Care Required at this time Thoughts of Harming/Killing Others : No UGO FAN RN - 10/14/2021 18:33 EDT Electronically signed by Huy [facility] Conversion Staffing Assistant Cerner at 08/17/2022 5:56 PM CDT documented in this encounter Plan of Treatment Not on file documented as of this encounter Visit Diagnoses Not on filedocumented in this encounter Care Teams Vice President Quality Relationship Specialty Start Date End Date Eladio Lomas MD [address] [facility] [address], [place] [address] Medical Oncologist Hematology and Oncology 07/08/22 Breanna Crow, PARebelC [address] [place] [address] Physician Nuclear Powerplant Mechanic Oncology 07/08/22 documented as of this encounter
--- OUTSIDE RECORDS SUMMARY | 2024-11-22 11:53 | XMS_ITS | Encounter Summary ---
Author Organization [employer] ([place], [place], [place], [place]) Address [address] [place] [address] Care Team Providers Care Land Checker Name Role Phone Eladio Lomas MD Unavailable Breanna Crow PA-C Unavailable [phone] Encounter Details Date Type Department Care Team (Late st Contact Info) Description 12/29/2021 Transcribed Document [facility] [place] Family Medicine [address] [place] [address] ProviderJailyn MD [address] [place] [address] Social History Tobacco Use Types [...] Date Ata rded Speak language other than Niuean at home Not on file 05/13/2023 Want [...] MVP - pt has not seen a cell coverer 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 Pt denies [...] # 7.60 K/uL (High) 12/29/2021 10:31 EDT Cascade % 14.8 % (High) 12/29/2021 10:31 EDT Cascade # 2.11 K/uL (High) 12/29/2021 10:31 EDT [...] pending Cotinine - pending Electronically signed by [facility], [facility] Conversion Shed Workers Supervisor Cerner at 08/17/2022 6:07 PM CDT documented in this encounter Plan of Treatment Not on file documented as of this encounter Visit Diagnoses Not on filedocumented in this encounter Care Teams Land Checker Relationship Specialty Start Date End Date Eladio Lomas MD [address] [facility] [address] [place] [address] Medical Oncologist Hematology and Oncology 07/08/22 Breanna Crow PA-C [address] [place] [address] Physician Respite Care Provider Oncology 07/08/22 documented as of this encounter
--- OUTSIDE RECORDS SUMMARY | 2024-11-22 11:53 | XMS_ITS | Clinical Summary ---
Author Organization [facility] Address [address] [facility] [address] [place] [address] Phone Care Team Providers Care Mems Device Scientist Name Role Phone Godfrey ALFARO, José Miguel Michaels [facility] [phone] [ ] Conditions or Problems Problem Name Problem Code Onset Date Status Entry Date Provider Comment Standard Description Annotate Acute DVT of leg, right 441681859 (SNOMED CT) Active José Miguel Donahue MD Deep venous thrombosis of lower extremity Health advice, education, or counseling 128722406 (SNOMED CT) Active José Miguel Donahue MD Procedure carried out on subject PERSONAL HISTORY OF IMMUNOSUPPRES PILLO THERAPY 386323075 (SNOMED CT) 12/10 Active 12/10 José Miguel Donahue MD History of immunosuppressiv e therapy Foot drop, right 9436459 (SNOMED CT) 10/27 Active 10/27 José Miguel Donahue MD Foot-drop Benign Essential Hypertension 80868040 (SNOMED CT) 10/22 Active 10/22 Dorothy Juanpablo Benign hypertension Disseminated herpes zoster 70326621 (SNOMED CT) 10/22 Active 10/22 Dorothy Juanpablo Disseminated herpes zoster 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 10/22 Dorothy Juanpablo Leukemoid reaction Chronic lymphoid leukemia 71482128 (SNOMED CT) 10/22 Active 10/22 Dorothy Juanpablo Chronic lymphoid leukemia, disease Medications Medication Instructions Start Date Stop Date Generic Name [facility] Provider ELIQUIS 5 MG TABS twice a day apixaban 24592463691 Tonia Noland VALTREX 1 GM TABS Take 1 tablet by mouth once a day valacyclovir 51932952404 José Miguel Donahue MD ALLOPURINOL 300 MG TABS 1 tablet by mouth once a day allopurinol 02083187146 Suzanne Cope ELIQUIS 5 MG TABS 2 tablet by mouth twice a day apixaban 51460677418 Suzanne Cope PREDNISONE 10 MG TABS Take as directed prednisone 88892790784 Suzanne Cope VALTREX 500 MG TABS 2 tablet by mouth once a day valacyclovir 56597149783 Faby Donahue VALTREX 1 GM TABS Take 1 tablet by mouth once a day valacyclovir 86088696221 Faby Donahue ALLOPURINOL 300 MG TABS 1 tablet by mouth once a day allopurinol 73980657043 Marianayvette Wiggins ELIQUIS 5 MG TABS 2 tablet by mouth twice a day apixaban 71749642704 Marianayvette Wiggins Lactobacillus acidophilus 1 billion cell capsule 1 capsule by mouth twice a day lactobacillus acidophilus Mariana Wiggins MULTI-VITAMINS TABS multivitamin 60411897205 Mariana Wiggins PREDNISONE 10 MG TABS Take as directed prednisone 80939730731 Mariana Wiggins TYLENOL 325 MG TABS 2 tablet by mouth every four hours as needed acetaminophen 30055971511 Mariana Wiggins VALTREX 500 MG TABS 2 tablet by mouth once a day valacyclovir 19745540427 Mariana Rosalie Medications Administered No information available. [...] Labs CPT-sl STAT Labs CPT-sl STAT Labs [id number] CMP [id number] CBC with Differential 2021 Vital Signs Date [...]
--- OUTSIDE RECORDS SUMMARY | 2024-11-22 11:53 | XMS_ITS | Encounter Summary ---
Author Organization [employer] ([place], [place], [place], [place]) Address [address] [place] [address] Care Team Providers Care Order Expediter Name Role Phone Eladio Lomas MD Unavailable Breanna Crow PA-C Unavailable [phone] Encounter Details Date Type Department Care Team (Late st Contact Info) Description 10/15/2021 Transcribed Document [facility] Family Medicine [address] [place] [address] ProviderJailyn MD [address] [place], [...] often do you attend chur ch or sabianist services? Never 07/08/2022 Do you belong to [...] Health Plan: [employer] PPO Policy Number: [id number] Authorization Number: Insurance Primary Name : [employer] PPO [id number] Authorization Status-Primary : Pending Reference Number-Primary : [id number] Authorized Service Begin Date-Primary : 10/15/2021 EDT Historical Authorization Comments-Primary : Comment 1: [employer] PPO auth pending per Star note. (JUANITA HUGO, SHARYN-Utilization Review 10/15/2021 09:18) Natalie Lauren Rn-Utilization Review - 10/15/2021 9:29 EDT documented in this encounter Plan of Treatment Not on file documented as of this encounter Visit Diagnoses Not on filedocumented in this encounter Care Teams Order Expediter Relationship Specialty Start Date End Date Eladio Lomas MD [address] [facility] [address] [address] Medical Oncologist Hematology and Oncology 07/08/22 Breanna Crow, PARebelC [address] [place] [address] [address] [place] [address] Physician Auto Job Estimator Oncology 07/08/22 documented as of this encounter
--- OUTSIDE RECORDS SUMMARY | 2024-11-22 11:53 | XMS_ITS | Encounter Summary ---
Author Organization [employer] ([place], [place], [place], [place]) Address [address] [place] [address] Care Team Providers Care Offensive Coordinator Name Role Phone Eladio Lomas MD Unavailable Breanna Crow PA-C Unavailable [phone] Encounter Details Date Type Department Care Team (Late st Contact Info) Description 10/15/2021 Transcribed Document [facility] Family Medicine [address] [place] [address] ProviderJailyn MD [address] [place] [address] Social History Tobacco Use Types [...] any clubs o r organizations such as episcopal groups, unions, fraternal or athletic groups, or [...] Date Ata rded Speak language other than [place]an at home Not on file 05/13/2023 Want [...] on filedocumented in this encounter Care Teams Offensive Coordinator Relationship Specialty Start Date End Date Eladio Loams MD 1210 [facility] [address] [place] [address] Medical Oncologist Hematology and Oncology 07/08/22 Breanna Crow PA-C [address] [address] Physician Educational Technician Oncology 07/08/22 documented as of this encounter
--- OUTSIDE RECORDS SUMMARY | 2024-11-22 11:53 | XMS_ITS | Encounter Summary ---
Author Organization [employer] ([place], [place], [place], [place]) Address [address] [place] [address] Care Team Providers Care Staff Counselor Name Role Phone Eladio Lomas MD Unavailable Breanna Crow PA-C Unavailable [phone] Encounter Details Date Type Department Care Team (Late st Contact Info) Description 10/15/2021 Transcribed Document [facility] [address] [place] [address] ProviderJailyn MD [address] [place] [address] Social History Tobacco Use Types [...] any clubs o r organizations such as catholic groups, unions, fraternal or athletic groups, [...] : Assist needed (Comment: supervision [CRYSTAL ROBERTS OTR/Mkial - 10/17/2021 12:09 EDT] ) Prior LOF [...] CRYSTAL ROBERTS OTR/Mikal - 10/17/2021 12:09 EDT Correctional Corporal Goals, OT Other LTG Grid Goal #1 [...] AFO and shoe, with verbal cues and [id number] instructions on how to perform, due to [...] CRYSTAL ROBERTS PAYAL/L - 10/17/2021 12:09 EDT Electronically signed by Rock Son Conversion Novelty Balloon Assembler And Packer Cerner at 08/17/2022 5:55 PM CDT documented in this encounter Plan of Treatment Not on file documented as of this encounter Visit Diagnoses Not on filedocumented in this encounter Care Teams Staff Counselor Relationship Specialty Start Date End Date Eladio Lomas MD [address] [facility] [address] [place] [address] Medical Oncologist Hematology and Oncology 07/08/22 Breanna Crow PA-C [address] [place], [place] [address] Physician Functional Consultant Oncology 07/08/22 documented as of this encounter
--- OUTSIDE RECORDS SUMMARY | 2024-11-22 11:53 | XMS_ITS | Encounter Summary ---
Author Organization [employer] ([place], [place], [place], [place]) Address [address] [place] [address] Care Team Providers Care Rubber Covering Machine Operator Name Role Phone Eladio Lomas MD Unavailable Breanna Crow PA-C Unavailable [phone] Encounter Details Date Type Department Care Team (Late st Contact Info) Description 10/15/2021 Transcribed Document [facility] [place] [address] [place] [address] ProviderJailyn MD [address] [place] [address] Social History Tobacco Use Types [...] Date Ata rded Speak language other than Tongan at home Not on file 05/13/2023 Want [...] 71 y/o male who was [place] [facility] [place]/2021 with RLE weakness and paresthesia. [...] ROM : WFL Left UE Strength : [facility] SOF[facility] CROFT PHYSICAL THERAPIST NON-EXEMPT - [...] PHYSICAL THERAPIST NON-EXEMPT - 10/17/2021 10:13 EDT Teacher Of The Hearing Impaired Goals Transfer LTG Grid Goal #1 Destination [...] filedocumented in this encounter Care Teams Rubber Covering Machine Operator Relationship Specialty Start Date End Date Eladio Lomas MD 1210 [facility] [address] [place] [address] Medical Oncologist Hematology and Oncology 07/08/22 Breanna Crow, PACecilia [address] [facility] [address] [place] [address] Physician Sanitation Truck Driver Oncology 07/08/22 documented as of this encounter
--- OUTSIDE RECORDS SUMMARY | 2024-11-22 11:53 | XMS_ITS | Encounter Summary ---
Author Organization [employer] ([place], [place], [place], [place]) Address [address] [place] [address] Care Team Providers Care Internal Audit Senior Manager Name Role Phone Eladio Lomas MD Unavailable Breanna Crow PA-C Unavailable [phone] Encounter Details Date Type Department Care Team (Late st Contact Info) Description 01/01/2022 Transcribed Document [facility] Family Medicine [address] [place] [address] ProviderJailyn MD [address] [place] [address] Social History Tobacco Use Types [...] lysis, facetectomy, L4-5 SURGEON: Garcia Workman MD. ENAMEL BUFFER: Roberto Plata ANESTHESIA: General. ESTIMATED BLOOD LOSS: [...] on filedocumented in this encounter Care Teams Internal Audit Senior Manager Relationship Specialty Start Date End Date Eladio Lomas MD 1210 [facility] [address] [place], [place] [address] Medical Oncologist Hematology and Oncology 07/08/22 Breanna Crow PACecilia [address] [facility] [address] [place] [address] Physician Cloth Bin Packer Oncology 07/08/22 documented as of this encounter
--- OUTSIDE RECORDS SUMMARY | 2024-11-22 11:53 | XMS_ITS | Encounter Summary ---
Author Organization [employer] ([place], [place], [place], [place]) Address [address] [place] [address] Care Team Providers Care Veterinary Hospital Shift Lead Name Role Phone Eladio Lomas MD Unavailable Breanna Crow PA-C Unavailable [phone] Encounter Details Date Type Department Care Team (Late st Contact Info) Description 10/15/2021 Transcribed Document [facility] [place] [address] [place] [address] ProviderJailyn MD [address] [place] [address] Social History Tobacco Use Types [...] often do you attend chur ch or mormonism services? Never 07/08/2022 Do you belong to [...] on filedocumented in this encounter Care Teams Veterinary Hospital Shift Lead Relationship Specialty Start Date End Date Eladio Lomas MD [address] [address] Medical Oncologist Hematology and Oncology 07/08/22 Breanna Crow, PA-C [address] [place] [address] Physician Veterinary Physiologist Oncology 07/08/22 documented as of this encounter
--- OUTSIDE RECORDS SUMMARY | 2024-11-22 11:53 | XMS_ITS | Encounter Summary ---
Author Organization [facility] Address [address] [place] [address] Care Team Providers Care Anesthesiologist Physician Name Role Phone Per Patient, None Primary Care Provider Unavaila ble Encounter Details Date Type Department Care Team (Late st Contact Info) Description 01/07/2021 Orders Only [facility] [address] [place] [address] Maurisio Aguilar MD [address] [address] Social History Tobacco Use Types [...] External Glucose 99 74 - 100 mg/dL [facility] External BUN 16 6 - 20 mg/dL [facility] External Creatinine Blood 0.93 0.70 - 1.28 mg/dL [facility] External BUN/Creat Ratio 17 10 - 20 (calc) [facility] External Sodium 141 136 - 145 mmol/L [facility] External Potassium 4.2 3.4 - 5.0 mmol/L [facility] External Chloride 102 98 - 107 mmol/L [facility] External Carbon Dioxide 25 22 - 31 mmol/L [facility] External Anion Gap (AG) 14 7 - 25 (calc) [facility] External Calcium 9.4 8.6 - 10.2 mg/dL [facility] External Total Protein 7.0 6.4 - 8.3 g/dL [facility] External Albumin 4.8 3.5 - 5.2 g/dL [facility] External Globulin 2.2 1.5 - 4.5 g/dL (calc) [facility] External Albumin/Globulin Ratio 2.2 1.1 - 2.5 (calc) [facility] External Bilirubin Total 0.4 0.1 - 1.2 mg/dL [facility] External Alkaline Phosphatase 85 40 - 129 U/L [facility] External AST (SGOT) 22 0 - 40 U/L [facility] External ALT (SGPT) 19 0 - 41 U/L [facility] External EGFR (If AFR/AM) 94 >=60 [facility] External Estimated GFR 81 >=60 [facility] Comment: NOTE Chronic kidney disease is [...] MD LAB BLOOD ORDERABLES Final Res ult [facility] [address] [place] [address], [place] [phone] documented in this encounter Visit Diagnoses Not on filedocumented in this encounter Care Teams Anesthesiologist Physician Relationship Specialty Start Date End Date Per Patient, [place] [address] PCP - General 05/02/20 documented as of this encounter
--- OUTSIDE RECORDS SUMMARY | 2024-11-22 11:53 | XMS_ITS | Encounter Summary ---
Author Organization [employer] ([place], [place], [place], [place]) Address [address] [place] [address] Care Team Providers Care Senior Project Coordinator Name Role Phone Eladio Lomas MD Unavailable Breanna Crow PA-C Unavailable [phone] Encounter Details Date Type Department Care Team (Late st Contact Info) Description 10/15/2021 Transcribed Document [facility] [place] Family Medicine [address] [place] [address] ProviderJailyn MD [address] [place], [...] w/ pt who endorsed a poor appetite HOME HEALTH MANAGER, 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 [...] Meds: benadryl, lovenox, Pepcid, KCl GI: LBM HOME HEALTH MANAGER, +BS Skin: no skin breakdown noted, healing [...] Energy Balance Related to : decreased appetitie HOME HEALTH MANAGER Energy Balance as Evidenced by : 50% [...] Non Emp Dietitian - 10/15/2021 15:53 EDT Electronically signed by Rock Son Conversion Program Coordinator For Residence Life Cerner at 08/17/2022 6:18 PM CDT documented in this encounter Plan of Treatment Not on file documented as of this encounter Visit Diagnoses Not on filedocumented in this encounter Care Teams Senior Project Coordinator Relationship Specialty Start Date End Date Eladio Lomas MD [address] [place] [address] Medical Oncologist Hematology and Oncology 07/08/22 Breanna Crow, PA-C [address] [place] [address] [place] [address] Physician Competitive Intelligence Analyst Oncology 07/08/22 documented as of this encounter
--- OUTSIDE RECORDS SUMMARY | 2024-11-22 11:53 | XMS_ITS | Encounter Summary ---
Author Organization [employer] ([place], [place], [place], [place]) Address [address] [place] [address] Care Team Providers Care Neurophysiology Tech Name Role Phone Eladio Lomas MD Unavailable Breanna Crow PA-C Unavailable [phone] Encounter Details Date Type Department Care Team (Late st Contact Info) Description 10/15/2021 Transcribed Document [facility] [place] [address] [place] [address] ProviderJailyn MD [address] [place] [address] Social History Tobacco Use Types [...] any clubs o r organizations such as jain groups, unions, fraternal or athletic groups, or [...] Date Ata rded Speak language other than [place] Citizen at home Not on file 05/13/2023 [...] on filedocumented in this encounter Care Teams Neurophysiology Tech Relationship Specialty Start Date End Date Eladio Lomas MD 12[address] [facility] [address] [place] [address] Medical Oncologist Hematology and Oncology 07/08/22 Breanna Crow, PACecilia [address] [place] [address] [place] [address] Physician Stereo Operator Oncology 07/08/22 documented as of this encounter
--- OUTSIDE RECORDS SUMMARY | 2024-11-22 11:53 | XMS_ITS | Encounter Summary ---
Author Organization [employer] ([place], [place], [place], [place]) Address [address] [place] [address] Care Team Providers Care Pop Singer Name Role Phone Eladio Lomas MD Unavailable Breanna Crow PA-C Unavailable [phone] Encounter Details Date Type Department Care Team (Late st Contact Info) Description 10/15/2021 Transcribed Document [facility] Family Medicine [address] [place] [address] ProviderJailyn MD [address] [place] [address] Social History Tobacco Use Types [...] On: 10/15/2021 14:48 EDT by Miladys Carter, [facility] Coord Phone Call for Consults Consult Reason : right L5 radiculopathy causing foot drop Physician Requesting Consult : ROMERO INGRAM MD-SERENE Physician Requested for Consult : GARCIA WORKMAN MD-ORT Date and Time Call Returned : 10/15/2021 14:50 EDT Consult, Additional Information : Spoke with Dr. Workman in person concerning the consult. Miladys Carter, [facility] Coord - 10/15/2021 14:50 EDT Electronically signed by [facility] Conversion Pension Examiner Cerner at 08/17/2022 6:04 PM CDT documented in this encounter Plan of Treatment Not on file documented as of this encounter Visit Diagnoses Not on filedocumented in this encounter Care Teams Pop Singer Relationship Specialty Start Date End Date Eladio Lomas MD 12[address] [facility] [address] [address] Medical Oncologist Hematology and Oncology 07/08/22 Breanna Crow PA-C [address] [facility] [address] [place] [address] Physician Software Applications Engineer Oncology 07/08/22 documented as of this encounter
--- OUTSIDE RECORDS SUMMARY | 2024-11-22 11:53 | XMS_ITS | Encounter Summary ---
Author Organization [employer] ([place], [place], [place], [place]) Address [address] [place] [address] Care Team Providers Care Whale Trainer Name Role Phone Eladio Lomas MD Unavailable Breanna Crow PA-C Unavailable [phone] Encounter Details Date Type Department Care Team (Late st Contact Info) Description 10/15/2021 Transcribed Document [facility] Family Medicine [address] [place] [address] ProviderJailyn MD [address] [place] [address] Social History Tobacco Use Types [...] 10/15/2021 9:30 EDT Electronically signed by [facility] Conversion Barrel Assembly Inspector Cerner at 08/17/2022 6:01 PM CDT documented in this encounter Plan of Treatment Not on file documented as of this encounter Visit Diagnoses Not on filedocumented in this encounter Care Teams Whale Trainer Relationship Specialty Start Date End Date Eladio Lomas MD 1210 [facility] [address] [place] [address] Medical Oncologist Hematology and Oncology 07/08/22 Breanna Crow PA-C [address] [facility] [address] [place] [address] Physician Cashier Parking Lot Oncology 07/08/22 documented as of this encounter
--- OUTSIDE RECORDS SUMMARY | 2024-11-22 11:53 | XMS_ITS | Encounter Summary ---
Author Organization [employer] ([place], [place], [place], [place]) Address [address] [place] [address] Care Team Providers Care Steerer Name Role Phone Eladio Lomas MD Unavailable Breanna Crow PA-C Unavailable [phone] Encounter Details Date Type Department Care Team (Late st Contact Info) Description 10/15/2021 Transcribed Document [facility] Family Medicine [address] [place] [address] ProviderJailyn MD [address] [place] [address] Social History Tobacco Use Types [...] 10/15/2021 15:55 EDT Electronically signed by Huy, [facility] Conversion Roast Master Cerner at 08/17/2022 5:55 PM CDT documented in this encounter Plan of Treatment Not on file documented as of this encounter Visit Diagnoses Not on filedocumented in this encounter Care Teams Steerer Relationship Specialty Start Date End Date Eladio Lomas MD 12[address] [facility] [address] [place] [address] Medical Oncologist Hematology and Oncology 07/08/22 Breanna Crow, PACecilia [address] [facility] [address] [place] [address] Physician Domestic Cleaner Oncology 07/08/22 documented as of this encounter
--- OUTSIDE RECORDS SUMMARY | 2024-11-22 11:53 | XMS_ITS | Encounter Summary ---
Author Organization [employer] ([place], [place], [place], [place]) Address [address] [place] [address] Care Team Providers Care Motor Winder Name Role Phone Eladio Lomas MD Unavailable Breanna Crow PA-C Unavailable [phone] Encounter Details Date Type Department Care Team (Late st Contact Info) Description 10/15/2021 Transcribed Document [facility] Family Medicine [address] [place] [address] ProviderJailyn MD [address] [place] [address] Social History Tobacco Use Types [...] Date Ata rded Speak language other than Albanian at home Not on file 05/13/2023 Want [...] At risk for sleep apnea / IMO [id number] / Confirmed, Active Problems (2) At risk for sleep apnea Mitral valve prolapse Objective VS/Measurements Measurements from flowsheet : Measurements 10/15/2021 4:48 EDT Height Source Stated Height Entry Format Harding Height/Length, THAI (ft) 5 ft Height/Length THAI 6 Inch CLINICALHEIGHT 167.64 cm Canalou Body Weight 63 kg Weight Source Bed scale Weight Entry Format Harding Weight Albanian lb 131 lb Weight Albanian oz 5 oz CLINICALWEIGHT 59.69 kg Body Surface Area (BSA) 1.67 m2 Body Mass Index 21.2 kg/m2 10/15/2021 3:09 EDT Height Source Not Done: Task Duplication (Not Done) Height Entry Format Not Done: Task Duplication (Not Done) Weight Source Not Done: Task Duplication (Not Done) 10/14/2021 18:31 EDT Height Source Stated Height Entry Format Harding Height/Length, THAI (ft) 5 ft Height/Length THAI 6 Inch CLINICALHEIGHT 167.64 cm Canalou Body Weight 62.88 kg Weight Source, ED Critical estimated dosing weight Weight Entry Format Harding Weight Albanian lb 180 lb CLINICALWEIGHT 81.82 kg Body Surface Area (BSA) 1.91 m2 Body Mass Index 29.1 kg/m2 HI documented in this encounter Plan of Treatment Not on file documented as of this encounter Visit Diagnoses Not on filedocumented in this encounter Care Teams Motor Winder Relationship Specialty Start Date End Date Eladio Lomas MD [address] [facility] [address] [place] [address] Medical Oncologist Hematology and Oncology 07/08/22 Breanna Crow, PARebelC [address] [facility] [address] [place] [address] Physician Senior Web Designer Oncology 07/08/22 documented as of this encounter
--- OUTSIDE RECORDS SUMMARY | 2024-11-22 11:53 | XMS_ITS | Encounter Summary ---
Author Organization [employer] ([place], [place], [place], [place]) Address [address] [place] [address] Care Team Providers Care Landfill Gas Plant Field Technician Name Role Phone Eladio Lomas MD Unavailable Breanna Crow PA-C Unavailable [phone] Encounter Details Date Type Department Care Team (Late st Contact Info) Description 01/01/[address] [facility] [address] [place] [address] ProviderJailyn MD [address] [place] [address] Social History Tobacco Use Types [...] Date Ata rded Speak language other than Burkinan at home Not on file 05/13/2023 Want [...] Pt. Name: CORBIN HU /Sex: 1950 Male [facility] Rec #: [id number] Physician: GARCIA WORKMAN MD-ORT Financial #: [id number] Pt. Type: O Room/Bed: [facility] Admit/Disch: 01/01/22 09:26:00 - Institution: [facility] IntraOp Case Attendance Entry 1 Entry 2 Entry 3 Case Attendee GARCIA WORKMAN MD-ORT MCDONALD, LEAH BETH, Bowling, Jachob, CRNA [email or web address] Role Performed Surgeon/Proceduralist, BUSINESS EXCELLENCE MANAGER/Nurse Aws Consultant BUSINESS EXCELLENCE MANAGER/Nurse Aws Consultant First Time In 01/01/22 10:42:00 01/01/22 10:42:00 01/01/22 10:42:00 Time Out 01/01/22 11:49:00 01/01/22 11:49:00 01/01/22 11:49:00 Procedure Lumbar Laminectomy Lumbar Laminectomy Lumbar Laminectomy Other Attendee Superficial Wound Closed By: Last Modified By: SAMMIE PEREZ RN LONGSWORTH, GARY, RN LONGSWORTH, GARY, RN 01/01/22 11:49:14 01/01/22 11:49:14 01/01/22 11:49:14 Entry 4 Entry 5 Entry 6 Case Attendee SAMMIE PEREZ, Lea Charles, RN Paulina Joseph, Keyboard Specialist Role Performed Public Information Director, First Public Information Director, Second Scrub, First Time In 01/01/22 10:42:00 01/01/22 10:42:00 01/01/22 10:42:00 Time Out 01/01/22 11:49:00 01/01/22 11:49:00 01/01/22 11:49:00 Procedure Lumbar Laminectomy Lumbar Laminectomy Lumbar Laminectomy Other Attendee Superficial Wound Closed By: Last Modified By: SAMMIE PEREZ RN LONGSWORTH, GARY, SAMMIE VARNER RN 01/01/22 11:49:14 01/01/22 11:49:14 01/01/22 11:49:14 Entry 7 Entry 8 Entry 9 Case Attendee Layla Padilla, CHRISTOFER ARDON, Masha Queen, Fbi Special Agent Role Performed Scrub, Second Physician assistant sales director Shoes Salesperson Time In 01/01/22 10:42:00 01/01/22 10:42:00 01/01/22 10:42:00 Time Out 01/01/22 11:49:00 01/01/22 11:49:00 01/01/22 11:49:00 Procedure Lumbar Laminectomy Lumbar Laminectomy Lumbar Laminectomy Other Attendee Superficial Wound Closed By: Last Modified By: SAMMIE PEREZ, SAMMIE VARNER, RN SAMMIE PEREZ, SHARYN 01/01/22 11:49:14 01/01/22 11:49:14 01/01/22 11:49:14 [facility] IntraOp Case Attendance Audit 01/01/22 11:49:14 Customer Care Specialist: SAM Modifier: LONGGA 1 <+> Time In [...] 9 <*> Procedure Lumbar Laminectomy 01/01/22 10:34:07 Customer Care Specialist: SAM Modifier: LONGGA <+> 1 Procedure 2 [...] [facility] IntraOp Case Times Audit 01/01/22 11:49:13 Customer Care Specialist: LONGGA Modifier: LONGGA <+> 1 Out Room Time <+> 1 Stop Time <+> 1 Stop Time 01/01/22 11:07:50 Customer Care Specialist: LONGGA Modifier: LONGGA <+> 1 Start Time [...] 11:10:17 [facility] IntraOp Cautery Audit 01/01/22 11:10:35 Customer Care Specialist: LONGGA Modifier: LONGGA 1 <*> Grounding Pad [...] RN 01/01/22 10:31:33 [facility] IntraOp General Case Aws Consultant 1 Case Information OR OR 01 [facility] Case Level 1 Room Verified Yes Wound Class 1 - Clean Specialty Neurosurgery Anesthesia Type General ASA Class 2 Diagnosis Preop Diagnosis STENOSIS L4-5 Postop Same As Preop Yes Postop Diagnosis STENOSIS L4-5 Wound Class Definitions Last Modified By: SAMMIE PEREZ RN 01/01/22 10:47:20 [facility] IntraOp General Case Data Audit 01/01/22 10:47:20 Customer Care Specialist: LONGJACKI Modifier: LONGGA 1 <*> OR OR [...] 1ml epinephrine 1:200,000 topical kit injection - [id number] 30ml vial - [id number] (recombinant) - [id number] Combo Med List Time Administered Route of [...] [facility] IntraOp Medication Admin Audit 01/01/22 11:28:39 Customer Care Specialist: LONGGA Modifier: LONGGA <+> 3 Medication/Irrigant <+> [...] [facility] IntraOp Surgical Procedures Audit 01/01/22 11:41:50 Customer Care Specialist: LONGGA Modifier: LONGGA 1 <*> Procedure Lumbar Laminectomy 1 <+> Stop 01/01/22 11:38:39 Customer Care Specialist: LONGGA Modifier: LONGGA 1 <*> Procedure Lumbar Laminectomy 1 <*> Additional Procedure Description RIGHT L4-5 LAMINECTOMY, DISCECTOMY 01/01/22 11:07:55 Customer Care Specialist: LONGGA Modifier: LONGGA <+> 1 Start [facility] IntraOp Temp Regulation Devices Entry 1 Temp Regulation Temperature Warm blankets Regulation Device Temperature Upper body Regulation Site Temperature LARRY GAMINO, Regulation Device BUSINESS EXCELLENCE MANAGER Applied by Last Modified By: SAMMIE PEREZ [...] Type Fluoroscopy Fluoroscopy Type C-Arm Site BACK Company Accountant Name Masha Sanders, Fbi Special Agent Protective Devices Yes Used Last Modified By: [...] on filedocumented in this encounter Care Teams Landfill Gas Plant Field Technician Relationship Specialty Start Date End Date Eladio Lomas MD [address] [facility] [address] [address] Medical Oncologist Hematology and Oncology 07/08/22 Breanna Crow PA-C [address] [place] [address] [place] [address] Physician Salesperson Toy Trains And Accessories Oncology 07/08/22 documented as of this encounter
--- OUTSIDE RECORDS SUMMARY | 2024-11-22 11:53 | XMS_ITS | Encounter Summary ---
Author Organization [employer] ([place], [place], [place], [place]) Address [address] [place] [address] Care Team Providers Care Special Certificate Dictator Name Role Phone Eladio Lomas MD Unavailable Breanna Crow PA-C Unavailable [phone] Encounter Details Date Type Department Care Team (Late st Contact Info) Description 01/01/2022 Transcribed Document [facility] [place] [address] [place] [address] ProviderJailyn MD [address] [place], [...] often do you attend chur ch or yazdanism services? Never 07/08/2022 Do you belong to any clubs o r organizations such as mandaen groups, unions, fraternal or athletic groups, or [...] Date Ata rded Speak language other than Gambian at home Not on file 05/13/2023 Want [...] HU /Sex: 1950 Male Med Rec #: [id number] Physician: GARCIA WORKMAN MD-ORT Financial #: [id number] Pt. Type: O Room/Bed: [facility] Admit/Disch: 01/01/22 09:26:00 - Institution: [facility] PreOp Case Times Entry 1 In Preop 01/01/22 07:55:00 Ready for Holding n/a Room Patient Ready for 01/01/22 10:10:00 Surgery Patient Out of Preop 01/01/22 10:37:00 Patient Out of n/a Holding Room Last Modified By: Ansley Lane RN 01/01/22 10:47:06 [place] PreOp Case Times Audit 01/01/22 10:47:06 Isotope Technologist: [id number] Modifier: [id number] <+> 1 Patient Out of Preop Finalized By: Ansley Lane, RN Document Signatures Signed By: Ansley Lane RN 01/01/22 10:47 Electronically signed by Huy [facility] Conversion Control Systems Eng Cerner at 08/17/2022 6:02 PM CDT documented in this encounter Plan of Treatment Not on file documented as of this encounter Visit Diagnoses Not on filedocumented in this encounter Care Teams Special Certificate Dictator Relationship Specialty Start Date End Date Eladio Lomas MD [address] [facility] [address], [place] [address] Medical Oncologist Hematology and Oncology 07/08/22 Breanna Crow PA-C [address] [facility] [address] [place] [address] Physician Waterproof Coating Machine Tender Oncology 07/08/22 documented as of this encounter
--- OUTSIDE RECORDS SUMMARY | 2024-11-22 11:53 | XMS_ITS | Encounter Summary ---
Author Organization [employer] ([place], [place], [place], [place]) Address [address] [place] [address] Care Team Providers Care Salon Shampoo Assistant Name Role Phone Eladio Lomas MD Unavailable Breanna Crow PA-C Unavailable [phone] Encounter Details Date Type Department Care Team (Late st Contact Info) Description 01/01/2022 Transcribed Document [facility] [place] [address] [place] [address] ProviderJailyn MD [address] [place] [address] Social History Tobacco Use Types [...] Historical Provider, - 01/01/2022 1:04 [place] [address] SARAH HU :1950 Visit Time:01/01/2022 What to [...] for follow-up date and appointment time Activity: Clemons dressing. Do not remove. May shower with [...] MD-ORT When 01/14/2022 11:00 AM EDT Where: [address] [place] [address] [address] [place] [address]- Medications What How Much When Instructions Next Dose acetaminophen-oxyCODONE (Percocet 7.5/ 325 oral tablet) 1 Tablet(s) Oral Three Times A Day as needed for for pain Pickup at [facility] acetaminophen (Tylenol 325 mg oral tablet) 2 Tablet(s) Oral Every 4 Hours as needed for Pain (Mild 1-3) ergocalciferol (ergocalciferol 50 mcg (2000 intl units) oral capsule) 1 Capsule(s) Oral Every Day Duration: 14 Day(s) multivitamin (Multiple Vitamins oral tablet) 1 Tablet(s) Oral Every Day valACYclovir (Valtrex 1 g oral tablet) 1 Tablet(s) Oral Every Day Pharmacy Information [facility]: [address] [place] [address] [phone] Take your medications faithfully. Do NOT skip [...] these instructions at home: Medicines ??? Take jhfh-huv-cbibkie and prescription medicines as told by your [...] keep your urine pale yellow. ? Take bivs-iex-ljkwnrc or prescription medicines. ? Eat foods that [...] and water are not available, use hand quality engineering manager. ? Change your dressing as told [...] safe to drive. General instructions ??? Take vtsm-wvb-tfnzxpv and prescription medicines only as told by [...] provider. Document Revised: 08/06/2020 Document Reviewed: 08/06/2020 [employer] Patient Education ?? 2021 [employer] Laminectomy, Care After This sheet gives [...] these instructions at home: Medicines ??? Take fkka-xeq-swbsldl and prescription medicines only as told by [...] keep your urine pale yellow. ? Take ygke-vev-gsnjuvq or prescription medicines. ? Eat foods that [...] and water are not available, use hand quality engineering manager. ? Change your dressing as told [...] provider. Document Revised: 11/12/2019 Document Reviewed: 11/12/2019 [employer] Patient Education ?? 2021 [employer]. Emergency Awareness and Preventative Care STROKE is [...] Assistance with quitting is available by contacting 0-715-PNFF-NOW. This is a free resource providing counseling, [...] was given the opportunity to ask questions. Patient/Traffic Coordinator Name: Patient/Traffic Coordinator Signature: Relationship to Patient: Clinician/Hospital Traffic Coordinator Signature: Date: documented in this encounter Plan of Treatment Not on file documented as of this encounter Visit Diagnoses Not on filedocumented in this encounter Care Teams Salon Shampoo Assistant Relationship Specialty Start Date End Date Eladio Lomas MD [address] [facility] [address] [place], [place] [id number] Medical Oncologist Hematology and Oncology 07/08/22 Breanna Crow PARebelC [address] [facility] [address] [place] [address] Physician Remote Sensing Surveyor Oncology 07/08/22 documented as of this encounter
--- OUTSIDE RECORDS SUMMARY | 2024-11-22 11:53 | XMS_ITS | Encounter Summary ---
Author Organization [employer] ([place], [place], [place], [place]) Address [address] [place] [address] Care Team Providers Care Front End Loader Driver Name Role Phone Eladio Lomas MD Unavailable Breanna Crow PA-C Unavailable [phone] Encounter Details Date Type Department Care Team (Late st Contact Info) Description 10/14/2021 Transcribed Document [facility] Family Medicine [address] [place] [address] ProviderJailyn MD [address] [place] [address] Social History Tobacco Use Types [...] any clubs o r organizations such as alevism groups, unions, fraternal or athletic groups, or [...] 10/14/2021 18:33 EDT Electronically signed by Huy [facility] Conversion Distribution Agent Cerner at 08/17/2022 6:01 PM CDT documented in this encounter Plan of Treatment Not on file documented as of this encounter Visit Diagnoses Not on filedocumented in this encounter Care Teams Front End Loader Driver Relationship Specialty Start Date End Date Eladio Lomas MD [address] [facility] [address] [place] [address] Medical Oncologist Hematology and Oncology 07/08/22 Brenana Crow, CHAVA [address] [address] Physician Disease Case Manager Rn Oncology 07/08/22 documented as of this encounter
--- OUTSIDE RECORDS SUMMARY | 2024-11-22 11:53 | XMS_ITS | Encounter Summary ---
Author Organization [employer] ([place], [place], [place], [place]) Address [address] [place] [address] Care Team Providers Care Electronic Sensing Equipment Assembler Name Role Phone Eladio Lomas MD Unavailable Breanna Crow PA-C Unavailable [phone] Encounter Details Date Type Department Care Team (Late st Contact Info) Description 10/15/2021 Transcribed Document [facility] [place] Family Medicine [address] [place] [address] ProviderJailyn MD [address] [place] [address] Social History Tobacco Use Types [...] 10/15/2021 20:37 EDT Electronically signed by Huy [facility] Conversion Coloring Room Man Cerner at 08/17/2022 6:14 PM CDT documented in this encounter Plan of Treatment Not on file documented as of this encounter Visit Diagnoses Not on filedocumented in this encounter Care Teams Electronic Sensing Equipment Assembler Relationship Specialty Start Date End Date Eladio Lomas MD [address] [facility] [address] [address] Medical Oncologist Hematology and Oncology 07/08/22 Breanna Crow, PA-C [address] [facility] [address] [place] [address] Physician Reagent Tender Oncology 07/08/22 documented as of this encounter
--- OUTSIDE RECORDS SUMMARY | 2024-11-22 11:53 | XMS_ITS | Encounter Summary ---
Author Organization [employer] ([place], [place], [place], [place]) Address [address] [place] [address] Care Team Providers Care Technical Account Manager Name Role Phone Eladio Lomas MD Unavailable Breanna Crow PA-C Unavailable [phone] Encounter Details Date Type Department Care Team (Late st Contact Info) Description 12/29/2021 Transcribed Document [facility] [place] [address] [place] [address] ProviderJailyn MD [address] [place] [address] Social History Tobacco Use Types [...] 12/29/2021 10:30 EDT Electronically signed by Huy [facility] Conversion Marine Mechanic Cerner at 08/17/2022 6:19 PM CDT documented in this encounter Plan of Treatment Not on file documented as of this encounter Visit Diagnoses Not on filedocumented in this encounter Care Teams Technical Account Manager Relationship Specialty Start Date End Date Eladio Lomas MD [address] [facility] [address] [address] Medical Oncologist Hematology and Oncology 07/08/22 Breanna Crow, PA-C [address] [facility] [address] [place] [address] Physician Hand Plug Shaper Oncology 07/08/22 documented as of this encounter
--- OUTSIDE RECORDS SUMMARY | 2024-11-22 11:53 | XMS_ITS | Encounter Summary ---
Author Organization [employer] ([place], [place], [place], [place]) Address [address] [place] [address] Care Team Providers Care Aircraft Electrical Systems Specialist Name Role Phone Eladio Lomas MD Unavailable Breanna Crow PA-C Unavailable [phone] Encounter Details Date Type Department Care Team (Late st Contact Info) Description 10/15/2021 Transcribed Document [facility] Family Medicine [address] [place] [address] ProviderJailyn MD [address] [place] [address] Social History Tobacco Use Types [...] - 10/15/2021 4:49 EDT Electronically signed by [facility] Conversion Buyer Intern Cerner at 08/17/2022 6:13 PM CDT documented in this encounter Plan of Treatment Not on file documented as of this encounter Visit Diagnoses Not on filedocumented in this encounter Care Teams Aircraft Electrical Systems Specialist Relationship Specialty Start Date End Date Eladio Lomas MD [address] [address] Medical Oncologist Hematology and Oncology 07/08/22 Breanna Crow PACecilia [address] [facility] [address] [place] [address] Physician Towel Sorter Oncology 07/08/22 documented as of this encounter
--- OUTSIDE RECORDS SUMMARY | 2024-11-22 11:53 | XMS_ITS | Encounter Summary ---
Author Organization [employer] ([place], [place], [place], [place]) Address [address] [place] [address] Care Team Providers Care Mold Shaker Name Role Phone Eladio Lomas MD Unavailable Breanna Crow PA-C Unavailable [phone] Encounter Details Date Type Department Care Team (Late st Contact Info) Description 10/14/2021 Transcribed Document [facility] Family Medicine [address] [place] [address] ProviderJailyn MD [address] [place] [address] Social History Tobacco Use Types [...] often do you attend chur ch or religion services? Never 07/08/2022 Do you belong to [...] Temperature : Warm Skin Description : Dry, [place] FLORA SOUZA RN - 10/15/2021 1:37 EDT ED General-Functional Assess Information Obtained From : Patient Communication Barrier : None Primary Language : Andorran Any Spiritual/Cultural Needs or Requests : No [...] FLORA SOUZA RN - 10/15/2021 1:37 EDT [place] Coma Dejuan Best Motor Response : Obey commands Dejuan Best Verbal Response : Oriented [place] Eye Opening Response : Spontaneous [place] Coma Score : 15 FLORA SOUZA RN - 10/15/2021 1:37 EDT Electronically signed by Huy [facility] Conversion Cosmetic Sales Advisor Cerner at 08/17/2022 6:19 PM CDT documented in this encounter Plan of Treatment Not on file documented as of this encounter Visit Diagnoses Not on filedocumented in this encounter Care Teams Mold Shaker Relationship Specialty Start Date End Date Eladio Lomas MD [address] [facility] [address] [place] [address] Medical Oncologist Hematology and Oncology 07/08/22 Breanna Crow PA-C [address] [facility] [address] [place] [address] Physician Retouching Operator Oncology 07/08/22 documented as of this encounter
--- OUTSIDE RECORDS SUMMARY | 2024-11-22 11:53 | XMS_ITS | Encounter Summary ---
Author Organization [employer] ([place], [place], [place], [place]) Address [address] [place] [address] Care Team Providers Care Sonography Technician Name Role Phone Eladio Lomas MD Unavailable Breanna Crow PA-C Unavailable [phone] Encounter Details Date Type Department Care Team (Late st Contact Info) Description 01/01/2022 Transcribed Document [facility] [address] [place] [address] ProviderJailyn MD [address] [place] [address] Social History Tobacco Use Types [...] HU /Sex: 1950 Male Med Rec #: [id number] Physician: GARCIA WORKMAN MD-ORT Financial #: [id number] Pt. Type: O Room/Bed: [facility] Admit/Disch: 01/01/22 09:26:00 - Institution: E Main OR PACU Case Times Entry 1 In PACU I 01/01/22 11:50:00 Ready for PACU 01/01/22 12:38:00 Discharge Discharge from PACU 01/01/22 12:38:00 I Last Modified By: Lashay Liu RN 01/01/22 12:45:05 [facility] Main OR PACU Case Times Audit 01/01/22 12:45:05 Mentally Impaired Teacher: SXPOWERS Modifier: SXPOWERS <+> 1 Ready for PACU Discharge <+> 1 Discharge from PACU I Finalized By: Lashay Liu, RN Document Signatures Signed By: Lashay Liu RN 01/01/22 12:45 Electronically signed by Huy [facility] Conversion Family Practice Physician Assistant Cerner at 08/17/2022 5:57 PM CDT documented in this encounter Plan of Treatment Not on file documented as of this encounter Visit Diagnoses Not on filedocumented in this encounter Care Teams Sonography Technician Relationship Specialty Start Date End Date Eladio Lomas MD [address] [facility] [address], [place] [address] Medical Oncologist Hematology and Oncology 07/08/22 Breanna Crow PA-C [address] [facility] [address] [place] [address] Physician Entry Level Electrician Oncology 07/08/22 documented as of this encounter
--- OUTSIDE RECORDS SUMMARY | 2024-11-22 11:53 | XMS_ITS | Encounter Summary ---
Author Organization [employer] ([place], [place], [place], [place]) Address [address] [place] [address] Care Team Providers Care Spiral Runner Name Role Phone Eladio Lomas MD Unavailable Breanna Crow PA-C Unavailable [phone] Encounter Details Date Type Department Care Team (Late st Contact Info) Description 01/01/2022 Transcribed Document [facility] [place] [address] [place] [address] ProviderJailyn MD [address] [place] [address] Social History Tobacco Use Types [...] Historical Provider, - 01/01/2022 12:58 [place] [address] SARAH HU :1950 Visit Time:01/01/2022 What to [...] for follow-up date and appointment time Activity: [place] dressing. Do not remove. May shower with [...] MD-ORT When 01/14/2022 11:00 AM EDT Where: [address] [place] [address] [address] [place] [address]- Medications What How Much When Instructions Next Dose acetaminophen-oxyCODONE (Percocet 7.5/ 325 oral tablet) 1 Tablet(s) Oral Three Times A Day as needed for for pain Pickup at [facility] acetaminophen (Tylenol 325 mg oral tablet) 2 Tablet(s) Oral Every 4 Hours as needed for Pain (Mild 1-3) ergocalciferol (ergocalciferol 50 mcg (2000 intl units) oral capsule) 1 Capsule(s) Oral Every Day Duration: 14 Day(s) multivitamin (Multiple Vitamins oral tablet) 1 Tablet(s) Oral Every Day valACYclovir (Valtrex 1 g oral tablet) 1 Tablet(s) Oral Every Day Pharmacy Information [facility]: [address] [place] [address] [phone] Take your medications faithfully. Do NOT skip [...] these instructions at home: Medicines ??? Take qvvq-kpw-uxusjlt and prescription medicines as told by your [...] keep your urine pale yellow. ? Take tsbm-yib-xvrmrkt or prescription medicines. ? Eat foods that [...] and water are not available, use hand cycle touring guide. ? Change your dressing as told by [...] safe to drive. General instructions ??? Take ycdh-vgf-ykroxty and prescription medicines only as told by [...] provider. Document Revised: 08/06/2020 Document Reviewed: 08/06/2020 [employer] Patient Education ?? 2021 [employer] Laminectomy, Care After This sheet gives [...] these instructions at home: Medicines ??? Take adxn-xhb-qpicqdt and prescription medicines only as told by [...] keep your urine pale yellow. ? Take vzio-vte-verpyel or prescription medicines. ? Eat foods that [...] and water are not available, use hand cycle touring guide. ? Change your dressing as told by [...] provider. Document Revised: 11/12/2019 Document Reviewed: 11/12/2019 [employer] Patient Education ?? 2021 [employer]. Emergency Awareness and Preventative Care STROKE is [...] Assistance with quitting is available by contacting 1-078-BBCI-NOW. This is a free resource providing counseling, [...] was given the opportunity to ask questions. Patient/Pocket Setter Name: Patient/Pocket Setter Signature: Relationship to Patient: Clinician/Hospital Pocket Setter Signature: Date: documented in this encounter Plan of Treatment Not on file documented as of this encounter Visit Diagnoses Not on filedocumented in this encounter Care Teams Spiral Runner Relationship Specialty Start Date End Date Eladio Lomas MD [address] [facility] [address] [place], [place] [id number] Medical Oncologist Hematology and Oncology 07/08/22 Breanna Crow PARebelC [address] [facility] [address] [place] [address] Physician Aircraft Log Clerk Oncology 07/08/22 documented as of this encounter
--- OUTSIDE RECORDS SUMMARY | 2024-11-22 11:53 | XMS_ITS | Encounter Summary ---
Author Organization [employer] ([place], [place], [place], [place]) Address [address] [place] [address] Care Team Providers Care Coal Miner Name Role Phone Eladio Lomas MD Unavailable Breanna Crow PA-C Unavailable [phone] Encounter Details Date Type Department Care Team (Late st Contact Info) Description 01/01/2022 Transcribed Document [facility] [place] [address] [place] [address] ProviderJailyn MD [address] [place] [address] Social History Tobacco Use Types [...] Historical Provider, - 01/01/2022 12:59 [place] [address] SARAH HU :1950 Visit Time:01/01/2022 What to [...] for follow-up date and appointment time Activity: [place] dressing. Do not remove. May shower with [...] MD-ORT When 01/14/2022 11:00 AM EDT Where: [address] [place] [address] [address] [place] [address]- Medications What How Much When Instructions Next Dose acetaminophen-oxyCODONE (Percocet 7.5/ 325 oral tablet) 1 Tablet(s) Oral Three Times A Day as needed for for pain Pickup at [facility] acetaminophen (Tylenol 325 mg oral tablet) 2 Tablet(s) Oral Every 4 Hours as needed for Pain (Mild 1-3) ergocalciferol (ergocalciferol 50 mcg (2000 intl units) oral capsule) 1 Capsule(s) Oral Every Day Duration: 14 Day(s) multivitamin (Multiple Vitamins oral tablet) 1 Tablet(s) Oral Every Day valACYclovir (Valtrex 1 g oral tablet) 1 Tablet(s) Oral Every Day Pharmacy Information [facility]: [address] [place] [address] [phone] Take your medications faithfully. Do NOT skip [...] these instructions at home: Medicines ??? Take awht-xom-xuchpob and prescription medicines as told by your [...] keep your urine pale yellow. ? Take crtv-ohk-kfdoyqw or prescription medicines. ? Eat foods that [...] and water are not available, use hand prizer hand. ? Change your dressing as told by [...] safe to drive. General instructions ??? Take xbhs-wfe-jccikyi and prescription medicines only as told by [...] provider. Document Revised: 08/06/2020 Document Reviewed: 08/06/2020 [employer] Patient Education ?? 2021 [employer]. Laminectomy, Care After This sheet gives [...] these instructions at home: Medicines ??? Take fxff-kpb-mjmoedd and prescription medicines only as told by [...] keep your urine pale yellow. ? Take xauu-mfg-cvugxkc or prescription medicines. ? Eat foods that [...] and water are not available, use hand prizer hand. ? Change your dressing as told by [...] provider. Document Revised: 11/12/2019 Document Reviewed: 11/12/2019 [employer] Patient Education ?? 2021 [employer]. Emergency Awareness and Preventative Care STROKE is [...] Assistance with quitting is available by contacting 3-437-BCBR-NOW. This is a free resource providing counseling, [...] was given the opportunity to ask questions. Patient/Placement Assistant Name: Patient/Placement Assistant Signature: Relationship to Patient: Clinician/Hospital Placement Assistant Signature: Date: documented in this encounter Plan of Treatment Not on file documented as of this encounter Visit Diagnoses Not on filedocumented in this encounter Care Teams Coal Miner Relationship Specialty Start Date End Date Eladio Lomas MD [address] [facility] [address] [place], [place] [id number] Medical Oncologist Hematology and Oncology 07/08/22 Breanna Crow PARebelC [address] [facility] [address] [place] [address] Physician Car Washer Oncology 07/08/22 documented as of this encounter
--- OUTSIDE RECORDS SUMMARY | 2024-11-22 11:53 | XMS_ITS | Encounter Summary ---
Author Organization [employer] ([place], [place], [place], [place]) Address [address] [place] [address] Care Team Providers Care Firmware Manager Name Role Phone Eladio Lomas MD Unavailable Breanna Crow PA-C Unavailable [phone] Encounter Details Date Type Department Care Team (Late st Contact Info) Description 10/15/2021 Transcribed Document [facility] [place] [address] [place] [address] ProviderJailyn MD [address] [place] [address] Social History Tobacco Use Types [...] any clubs o r organizations such as judaism groups, unions, fraternal or athletic groups, or [...] Health Plan: [employer] CHOICE PPO Policy Number: [id number] Authorization Number: Insurance Primary Name : HU[employer] CHOICE PPO [id number] Authorization Status-Primary : Pending Reference Number-Primary : [id number] Authorized Service Begin Date-Primary : 10/15/2021 EDT Authorization Comments-Primary : HU[employer] CHOICE PPO auth pending per Star note. Historical Authorization Comments-Primary : No Authorization Comments Found JUANITA HUGO RN-Utilization Review - 10/15/2021 9:18 EDT documented in this encounter Plan of Treatment Not on file documented as of this encounter Visit Diagnoses Not on filedocumented in this encounter Care Teams Firmware Manager Relationship Specialty Start Date End Date Eladio Lomas MD [address] [facility] [address] [address] Medical Oncologist Hematology and Oncology 07/08/22 Breanna Crow PACecilia [address] [facility] [address] [place] [address] Physician Musical Engineer Oncology 07/08/22 documented as of this encounter
--- OUTSIDE RECORDS SUMMARY | 2024-11-22 11:53 | XMS_ITS | Encounter Summary ---
Author Organization [employer] ([place], [place], [place], [place]) Address [address] [place] [address] Care Team Providers Care Sole Layer Hand Name Role Phone Eladio Lomas MD Unavailable Breanna Crow PA-C Unavailable [phone] Encounter Details Date Type Department Care Team (Late st Contact Info) Description 10/15/2021 Transcribed Document [facility] [place] [address] [place] [address] ProviderJailyn MD [address] [place] [address] Social History Tobacco Use Types [...] any clubs o r organizations such as methodist groups, unions, fraternal or athletic groups, or [...] Date Ata rded Speak language other than Belgian at home Not on file 05/13/2023 Want [...] On: 10/15/2021 12:50 EDT by Miladys Carter, [facility] Coord Phone Call for Consults Consult Reason : spine for right L5 radiculopathy causing foot drop Physician Requesting Consult : ROMERO INGRAM MD-SERENE Physician Requested for Consult : SHARON PATRICIO MD-ORT Date and Time Call Returned : 10/15/2021 14:40 EDT Consult, Additional Information : Spoke with Dr. Rosenberg on the phone concerning the consult. Miladys Carter, [facility] Coord - 10/15/2021 14:41 EDT Electronically signed by [facility], [facility] Conversion Car Rental Service Attendant Cerner at 08/17/2022 5:55 PM CDT documented in this encounter Plan of Treatment Not on file documented as of this encounter Visit Diagnoses Not on filedocumented in this encounter Care Teams Sole Layer Hand Relationship Specialty Start Date End Date Eladio Lomas MD [address] [facility] [address] [place] [address] Medical Oncologist Hematology and Oncology 07/08/22 Breanna Crow PACecilia [address] [facility] [address] [place] [address] Physician Grievance Manager Oncology 07/08/22 documented as of this encounter
--- OUTSIDE RECORDS SUMMARY | 2024-11-22 11:53 | XMS_ITS | Encounter Summary ---
Author Organization [employer] ([place], [place], [place], [place]) Address [address] [place] [address] Care Team Providers Care Bunch Maker Name Role Phone Eladio Lomas MD Unavailable Breanna Crow PA-C Unavailable [phone] Encounter Details Date Type Department Care Team (Late st Contact Info) Description 10/14/2021 Transcribed Document [facility] [place] [address] [place] [address] ProviderJailyn MD [address] [place] [address] Social History Tobacco Use Types [...] Date Ata rded Speak language other than Dominican at home Not on file 05/13/2023 Want [...] : 3 - Urgent Tracking Group : [facility] [place] UGO FAN RN - 10/14/2021 18:31 EDT Mode of Arrival : Wheelchair Transported to ED by : Private vehicle To Room Via : Wheelchair Accompanied By : Spouse ED Vital Signs : Document Height & Weight : Document ED Allergies : Document ED Reason for Visit : Document Tetanus Immunization : Greater than 5 years [employer] Portal Architect Needed : No UGO FAN RN - [...] EDT) Problems(Active) Mitral valve prolapse (SNOMED CT :[id number] ) Name of Problem: Mitral valve prolapse ; Recorder: Miranda Flor RN; Confirmation: Confirmed ; Classification: Patient Stated ; Code: [id number] ; Contributor System: Rip van Wafels ; Last Updated: 11/28/2017 15:14 EDT ; Life Cycle Date: 11/28/2017 ; Life Cycle Status: Active ; Vocabulary: SNOMED CT Diagnoses(Active) Paresthesia Date: 10/14/2021 ; Diagnosis Type: Reason For Visit ; Confirmation: Complaint of ; Clinical Dx: Paresthesia ; Classification: Medical ; Clinical Service: Emergency medicine ; Code: PNED ; Probability: 0 ; Diagnosis Code: [id number] ED Height and Weight Height Source : Stated Height Entry Format : [place] Height, Feet : 5 ft(Converted to: 152 cm, 60 Inch) Height, Inches : 6 Inch(Converted to: 0 ft 6 Inch, 15.24 cm) Clinical Height : 167.64 cm Weight Source, ED : Critical estimated dosing weight Weight Entry Format : [place] Weight, Pounds : 180 lb Clinical Dosing Weight : 81.82 kg Body Surface Area (BSA) : 1.91 m2 Body Mass Index : 29.1 kg/m2 (HI) [place] Body Weight (IBW) : 62.88 kg UGO FAN RN - 10/14/2021 18:31 EDT Patient/Family Websphere Portal Architect Communication Primary Language : Dominican UGO FAN, RN - 10/14/2021 18:31 EDT documented in this encounter Plan of Treatment Not on file documented as of this encounter Visit Diagnoses Not on filedocumented in this encounter Care Teams Bunch Maker Relationship Specialty Start Date End Date Eladio Lomas MD 12[address] [facility] [address] [address] Medical Oncologist Hematology and Oncology 07/08/22 Breanna Crow, PACecilia [address] [address] Physician Medical Technologist Prn Oncology 07/08/22 documented as of this encounter
--- OUTSIDE RECORDS SUMMARY | 2024-11-22 11:53 | XMS_ITS | Encounter Summary ---
Author Organization [employer] ([place], [place], [place], [place]) Address [address] [place] [address] Care Team Providers Care Wind Field Manager Name Role Phone Eladio Lomas MD Unavailable Breanna Crow PA-C Unavailable [phone] Encounter Details Date Type Department Care Team (Late st Contact Info) Description 10/15/2021 Transcribed Document [facility] [place] [address] [place] [address] ProviderJailyn MD [address] [place] [address] Social History Tobacco Use Types [...] 10/15/2021 12:32 EDT Electronically signed by Huy [facility] Conversion Resolution Manager Cerner at 08/17/2022 6:13 PM CDT documented in this encounter Plan of Treatment Not on file documented as of this encounter Visit Diagnoses Not on filedocumented in this encounter Care Teams Wind Field Manager Relationship Specialty Start Date End Date Eladio Lomas MD [address] [facility] [address] [place] [address] Medical Oncologist Hematology and Oncology 07/08/22 Breanna Crow PA-C [address] [facility] [address] [place] [address] Physician Lay Out Inspector Oncology 07/08/22 documented as of this encounter
--- OUTSIDE RECORDS SUMMARY | 2024-11-22 11:53 | XMS_ITS | Encounter Summary ---
Author Organization [employer] ([place], [place], [place], [place]) Address [address] [place] [address] Care Team Providers Care Farmworker Grain Name Role Phone Eladio Lomas MD Unavailable Breanna Crow PA-C Unavailable [phone] Encounter Details Date Type Department Care Team (Late st Contact Info) Description 10/15/2021 Transcribed Document [facility] [place] [address] [place] [address] ProviderJailyn MD [address] [place] [address] Social History Tobacco Use [...] - Medical Enoxaparin 40 mg, SubCutaneous, Inj, [id number], Routine, Start 10/15/21 7:00:00 EDT, 10/15/21 6:07:00 [...] ALYC # 4 K/uL 10/15/2021 00:19 EDT [place] Percent Man 19 % (High) 10/15/2021 00:19 [...] ACLS, Continuous Order Electronically signed by Interface, [facility] Conversion Prosthetic Technician Cerner at 08/17/2022 5:58 PM CDT documented in this encounter Plan of Treatment Not on file documented as of this encounter Visit Diagnoses Not on filedocumented in this encounter Care Teams Farmworker Grain Relationship Specialty Start Date End Date Eladio Lomas MD 1210 [facility] [address] [place] [address] Medical Oncologist Hematology and Oncology 07/08/22 Breanna Crow PARebelC [address] [facility] [address] [place] [address] Physician Layup Worker Oncology 07/08/22 documented as of this encounter
--- OUTSIDE RECORDS SUMMARY | 2024-11-22 11:53 | XMS_ITS | Encounter Summary ---
Author Organization [employer] ([place], [place], [place], [place]) Address [address] [place] [address] Care Team Providers Care Fashion Journalist Name Role Phone Eladio Lomas MD Unavailable Breanna Crow PA-C Unavailable [phone] Encounter Details Date Type Department Care Team (Late st Contact Info) Description 01/01/2022 Transcribed Document [facility] [place] [address] [place] [address] ProviderJailyn MD [address] [place] [address] Social History Tobacco Use [...] any clubs o r organizations such as mormonism groups, unions, fraternal or athletic groups, or [...] 01/01/2022 10:44 EDT Electronically signed by Huy [facility] Conversion Potato Bucker Cerner at 08/17/2022 6:06 PM CDT documented in this encounter Plan of Treatment Not on file documented as of this encounter Visit Diagnoses Not on filedocumented in this encounter Care Teams Fashion Journalist Relationship Specialty Start Date End Date Eladio Lomas MD 12[address] [facility] [address] [place] [address] Medical Oncologist Hematology and Oncology 07/08/22 Breanna Crow PA-C [address] [facility] [address] [place] [address] Physician Buckle Coverer Oncology 07/08/22 documented as of this encounter
--- OUTSIDE RECORDS SUMMARY | 2024-11-22 11:53 | XMS_ITS | Encounter Summary ---
Author Organization [employer] ([place], [place], [place], [place]) Address [address] [place] [address] Care Team Providers Care Procurement Assistant Name Role Phone Eladio Lomas MD Unavailable Breanna Crow PA-C Unavailable [phone] Encounter Details Date Type Department Care Team (Late st Contact Info) Description 01/01/2022 Transcribed Document [facility] [place] [address] [place] [address] ProviderJailyn MD [address] [place] [address] Social History Tobacco [...] Historical Provider, - 01/01/2022 1:12 [place] [address] SARAH HU :1950 Visit Time:01/01/2022 What to [...] for follow-up date and appointment time Activity: [place] dressing. Do not remove. May shower with [...] When 01/14/2022 11:00 AM EDT Where: [address] [place] [address] [address] [place] [address]- Medications What How Much When Instructions Next Dose acetaminophen-oxyCODONE (Percocet 7.5/ 325 oral tablet) 1 Tablet(s) Oral Three Times A Day as needed for for pain Pickup at [facility] acetaminophen (Tylenol 325 mg oral tablet) 2 Tablet(s) Oral Every 4 Hours as needed for Pain (Mild 1-3) ergocalciferol (ergocalciferol 50 mcg (2000 intl units) oral capsule) 1 Capsule(s) Oral Every Day Duration: 14 Day(s) multivitamin (Multiple Vitamins oral tablet) 1 Tablet(s) Oral Every Day valACYclovir (Valtrex 1 g oral tablet) 1 Tablet(s) Oral Every Day Pharmacy Information [facility]: [address] [place] [address] [phone] Take your medications faithfully. Do NOT skip [...] these instructions at home: Medicines ??? Take pykj-trb-dzjhsdi and prescription medicines as told by your [...] keep your urine pale yellow. ? Take revh-irg-mvgqsza or prescription medicines. ? Eat foods that [...] and water are not available, use hand granulator operator. ? Change your dressing as told [...] safe to drive. General instructions ??? Take ipnx-vvq-blszrxo and prescription medicines only as told by [...] provider. Document Revised: 08/06/2020 Document Reviewed: 08/06/2020 [employer] Patient Education ?? 2021 [employer] Laminectomy, Care After This sheet gives [...] these instructions at home: Medicines ??? Take nfhd-cfq-wciojex and prescription medicines only as told by [...] keep your urine pale yellow. ? Take proj-krc-salipjx or prescription medicines. ? Eat foods that [...] and water are not available, use hand granulator operator. ? Change your dressing as told [...] provider. Document Revised: 11/12/2019 Document Reviewed: 11/12/2019 [employer] Patient Education ?? 2021 [employer]. Emergency Awareness and Preventative Care STROKE is [...] Assistance with quitting is available by contacting 1-541-GODQ-NOW. This is a free resource providing counseling, [...] was given the opportunity to ask questions. Patient/Project Construction Assistant Manager Name: Patient/Project Construction Assistant Manager Signature: Relationship to Patient: Clinician/Hospital Project Construction Assistant Manager Signature: Date: documented in this encounter Plan of Treatment Not on file documented as of this encounter Visit Diagnoses Not on filedocumented in this encounter Care Teams Procurement Assistant Relationship Specialty Start Date End Date Eladio Lomas MD 1210 [facility] [address] [place], [place] [address] Medical Oncologist Hematology and Oncology 07/08/22 Breanna Crow PARebelC [address] [facility] [address] [place] [address] Physician Microbiology Quality Control Technician Oncology 07/08/22 documented as of this encounter
--- OUTSIDE RECORDS SUMMARY | 2024-11-22 11:53 | XMS_ITS | Encounter Summary ---
Author Organization [employer] ([place], [place], [place], [place]) Address [address] [place] [address] Care Team Providers Care Family Dentist Name Role Phone Eladio Lomas MD Unavailable Breanna Crow PA-C Unavailable [phone] Encounter Details Date Type Department Care Team (Late st Contact Info) Description 10/15/2021 Transcribed Document [facility] [place] [address] [place] [address] ProviderJailyn MD [address] [place] [address] Social History Tobacco Use Types [...] Health Plan: [employer]NA CHOICE PPO Policy Number: [id number] Authorization Number: Insurance Primary Name : [employer] CHOICE PPO [id number] Authorization Status-Primary : Awaiting callback Reference Number-Primary : [id number] Authorized Service Begin Date-Primary : 10/15/2021 EDT Authorization Comments-Primary : Clinicals faxed via [facility] Historical Authorization Comments-Primary : Comment 1: [employer] CHOICE PPO auth pending per Star note. (JUANITA HUGO, SHARYN-Utilization Review 10/15/2021 09:18) Natalie Lauren Rn-Utilization Review - 10/15/2021 9:30 EDT Electronically signed by [facility]uy [facility] Conversion Winding Machine Operator Cerner at 08/17/2022 5:57 PM CDT documented in this encounter Plan of Treatment Not on file documented as of this encounter Visit Diagnoses Not on filedocumented in this encounter Care Teams Family Dentist Relationship Specialty Start Date End Date Eladio Lomas MD 1210 [facility] [address] [place] [address] Medical Oncologist Hematology and Oncology 07/08/22 Breanna Crow PA-C [address] [place] [address] [address] [place] [address] Physician Braille Transcriber Oncology 07/08/22 documented as of this encounter
--- OUTSIDE RECORDS SUMMARY | 2024-11-22 11:53 | XMS_ITS | Encounter Summary ---
Author Organization [employer] ([place], [place], [place], [place]) Address [address] [place] [address] Care Team Providers Care Clinical Assistant Professor Name Role Phone Eladio Lomas MD Unavailable Breanna Crow PA-C Unavailable [phone] Encounter Details Date Type Department Care Team (Late st Contact Info) Description 10/15/2021 Transcribed Document [facility] [place] [address] [place] [address] ProviderJailyn MD [address] [place] [address] Social History Tobacco Use [...] often do you attend chur ch or pentecostal services? Never 07/08/2022 Do you belong to [...] on filedocumented in this encounter Care Teams Clinical Assistant Professor Relationship Specialty Start Date End Date Eladio Lomas MD [address] [facility] [address] [address] Medical Oncologist Hematology and Oncology 07/08/22 Breanna Crow, PA-C [address] [facility] [address] [place] [address] Physician Coil Tier Oncology 07/08/22 documented as of this encounter
--- OUTSIDE RECORDS SUMMARY | 2024-11-22 11:53 | XMS_ITS | Encounter Summary ---
Author Organization [employer] ([place], [place], [place], [place]) Address [address] [place] [address] Care Team Providers Care Interior Design Professor Name Role Phone Eladio Lomas MD Unavailable Breanna Crow PA-C Unavailable [phone] Encounter Details Date Type Department Care Team (Late st Contact Info) Description 01/01/2022 Transcribed Document [facility] [place] Family Medicine [address] [place] [address] ProviderJailyn MD [address] [place] [address] Social History Tobacco Use Types [...] these instructions at home: Medicines ??? Take xkjj-ifv-kngmtev and prescription medicines as told by your [...] keep your urine pale yellow. ? Take ksvs-uqx-twtevxn or prescription medicines. ? Eat foods that [...] and water are not available, use hand director business management. ? Change your dressing as told by [...] safe to drive. General instructions ??? Take ysqc-hnq-agfnuco and prescription medicines only as told by [...] provider. Document Revised: 08/06/2020 Document Reviewed: 08/06/2020 [employer] Patient Education ? 2021 [employer] Laminectomy, Care After This sheet gives [...] these instructions at home: Medicines ??? Take itoa-hts-ffdqfsp and prescription medicines only as told by [...] keep your urine pale yellow. ? Take kyhl-zjs-vcfgezs or prescription medicines. ? Eat foods that [...] and water are not available, use hand director business management. ? Change your dressing as told by [...] provider. Document Revised: 11/12/2019 Document Reviewed: 11/12/2019 [employer] Patient Education ? 2021 [employer]. documented in this encounter Plan of Treatment Not on file documented as of this encounter Visit Diagnoses Not on filedocumented in this encounter Care Teams Interior Design Professor Relationship Specialty Start Date End Date Eladio Lomas MD 1210 [facility] [address] [place] [id number] Medical Oncologist Hematology and Oncology 07/08/22 Breanna Crow PA-C [address] [place] [address] Physician Interventional Tech Oncology 07/08/22 documented as of this encounter
--- OUTSIDE RECORDS SUMMARY | 2024-11-22 11:54 | XMS_ITS | Encounter Summary ---
Author Organization [employer] ([place], [place], [place], [place]) Address [address] [place] [address] Care Team Providers Care Hog Ringer Name Role Phone Eladio Lomas MD Unavailable Breanna Crow PA-C Unavailable [phone] Encounter Details Date Type Department Care Team (Late st Contact Info) Description 10/16/2021 Transcribed Document [facility] [place] [address] [place] [address] ProviderJailyn MD [address] [place] [address] Social History Tobacco Use [...] any clubs o r organizations such as cheondoism groups, unions, fraternal or athletic groups, or [...] Date Ata rded Speak language other than Beninese at home Not on file 05/13/2023 Want [...] 10/16/2021 18:44 EDT Electronically signed by Huy [facility] Conversion Household Worker Cerner at 08/17/2022 6:20 PM CDT documented in this encounter Plan of Treatment Not on file documented as of this encounter Visit Diagnoses Not on filedocumented in this encounter Care Teams Hog Ringer Relationship Specialty Start Date End Date Eladio Lomas MD [address] [facility] [address] [address] Medical Oncologist Hematology and Oncology 07/08/22 Breanna Crow, PA-C [address] [facility] [address] [place] [address] Physician Nuclear Power Reactor Operator Oncology 07/08/22 documented as of this encounter
--- OUTSIDE RECORDS SUMMARY | 2024-11-22 11:54 | XMS_ITS | Encounter Summary ---
Author Organization [employer] ([place], [place], [place], [place]) Address [address] [place] [address] Care Team Providers Care Photo Stylist Name Role Phone Eladio Lomas MD Unavailable Breanna Crow PA-C Unavailable [phone] Encounter Details Date Type Department Care Team (Late st Contact Info) Description 10/18/2021 Transcribed Document [facility] [place] Family Medicine [address] [place] [address] ProviderJailyn MD [address] [place] [address] Social History Tobacco Use [...] 14:35 EDT by Celina Marley Non Emp us marketing director Documentation Discharge Date/Time : 10/18/2021 12:50 EDT [...] on filedocumented in this encounter Care Teams Photo Stylist Relationship Specialty Start Date End Date Eladio Lomas MD [address] [address] Medical Oncologist Hematology and Oncology 07/08/22 Breanna Crow PA-C [address] [facility] [address] [place] [address] Physician Mill Tender Warm Up Oncology 07/08/22 documented as of this encounter
--- OUTSIDE RECORDS SUMMARY | 2024-11-22 11:54 | XMS_ITS | Encounter Summary ---
Author Organization [employer] ([place], [place], [place], [place]) Address [address] [place] [address] Care Team Providers Care Senior Principal Name Role Phone Eladio Lomas MD Unavailable Breanna Crow PA-C Unavailable [phone] Encounter Details Date Type Department Care Team (Late st Contact Info) Description 10/18/2021 Transcribed Document [facility] [place] Family Medicine [address] [place] [address] ProviderJailyn MD [address] [place] [address] Social History Tobacco Use Types [...] Historical Provider, - 10/18/2021 2:00 AM CDT Sports Team Marketing Intern Details Entered On: 10/18/2021 2:19 EDT Performed [...] - 10/18/2021 2:19 EDT Electronically signed by [facility], [facility] Conversion Ecommerce Project Manager Cerner at 08/17/2022 6:13 PM CDT documented in this encounter Plan of Treatment Not on file documented as of this encounter Visit Diagnoses Not on filedocumented in this encounter Care Teams Senior Principal Relationship Specialty Start Date End Date Eladio Lomas MD [address] [place] [address] Medical Oncologist Hematology and Oncology 07/08/22 Breanna Crow, PA-C [address] [facility] [address] [place] [address] Physician Stretching Machine Operator Oncology 07/08/22 documented as of this encounter
--- OUTSIDE RECORDS SUMMARY | 2024-11-22 11:54 | XMS_ITS | Encounter Summary ---
Author Organization [employer] ([place], [place], [place], [place]) Address [address] [place] [address] Care Team Providers Care Mental Hygienist Name Role Phone Eladio Lomas MD Unavailable Breanna Crow PA-C Unavailable [phone] Encounter Details Date Type Department Care Team (Late st Contact Info) Description 10/16/2021 Transcribed Document [facility] [place] Family Medicine [address] [place] [address] ProviderJailyn MD [address] [place] [address] Social History Tobacco Use Types [...] any clubs o r organizations such as jewish groups, unions, fraternal or athletic groups, or [...] Date Ata rded Speak language other than Djiboutian at home Not on file 05/13/2023 Want [...] On: 10/16/2021 15:13 EDT by Jessica Rivera, [facility] Unit Coord Phone Call for Consults Consult Phone Call/Page Attempt : First call Physician Covering for Consult : TRENA DONAHUE MD-INF Consult, Additional Information : Consult called in to Dr. Trena Donahue, he stated that if Dr Edwin Carver had not seen them today, he would see them tomorrow Jessica Rivera, [facility] Coord - 10/16/2021 17:43 EDT Electronically signed by Huy [facility] Conversion Control Valve Mechanic Cerner at 08/17/2022 6:08 PM CDT documented in this encounter Plan of Treatment Not on file documented as of this encounter Visit Diagnoses Not on filedocumented in this encounter Care Teams Mental Hygienist Relationship Specialty Start Date End Date Eladio Lomas MD [address] [address] Medical Oncologist Hematology and Oncology 07/08/22 Breanna Crow, PA-C [address] [place] [address] [address] [place] [address] Physician Corridor Redevelopment Manager Oncology 07/08/22 documented as of this encounter
--- OUTSIDE RECORDS SUMMARY | 2024-11-22 11:54 | XMS_ITS | Encounter Summary ---
Author Organization [employer] ([place], [place], [place], [place]) Address [address] [place] [address] Care Team Providers Care Oracle Consultant Name Role Phone Eladio Lomas MD Unavailable Breanna Crow PA-C Unavailable [phone] Encounter Details Date Type Department Care Team (Late st Contact Info) Description 10/16/2021 Transcribed Document [facility] [place] Family Medicine [address] [place] [address] ProviderJailyn MD [address] [place] [address] Social History Tobacco Use [...] Performed On: 10/16/2021 10:09 EDT by PRAVEEN SUAL OTR/Mikal Attempt to Treat Unable to Treat Due To : Patient on hold Inability to Treat Comment : 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, pt has not been on anticoagulation long enough to safely attempt OT eval PRAVEEN SAUL OTR/Mikal - 10/16/2021 14:27 EDT Electronically signed by [facility], [facility] Conversion Thermostat Maker Cerner at 08/17/2022 6:05 PM CDT documented in this encounter Plan of Treatment Not on file documented as of this encounter Visit Diagnoses Not on filedocumented in this encounter Care Teams Oracle Consultant Relationship Specialty Start Date End Date Eladio Lomas MD 1210 [facility] [address] [place] [address] Medical Oncologist Hematology and Oncology 07/08/22 Breanna Crow, PACecilia [address] [facility] [address] [place] [address] Physician Community Association Manager Oncology 07/08/22 documented as of this encounter
--- OUTSIDE RECORDS SUMMARY | 2024-11-22 11:54 | XMS_ITS | Encounter Summary ---
Author Organization [employer] ([place], [place], [place], [place]) Address [address] [place] [address] Care Team Providers Care Traffic Or System Dispatcher Name Role Phone Eladio Lomas MD Unavailable Breanna Crow PA-C Unavailable [phone] Encounter Details Date Type Department Care Team (Late st Contact Info) Description 10/18/2021 Transcribed Document [facility] [place] [address] [place] [address] ProviderJailyn MD [address] [place] [address] Social History Tobacco Use Types [...] Date Ata rded Speak language other than Bruneian at home Not on file 05/13/2023 Want [...] Historical Provider, - 10/18/2021 12:28 [place] [address] CORBIN [place] :1950 Visit Time:10/15/2021 Your Visit [...] TRENA PANIAGUA When Within 2 weeks Where: [facility] [address] Business (1) Medications What How Much When [...] 10 mg daily in total Pickup at [facility] #82182 This evening predniSONE (predniSONE 10 mg oral tablet) See instructions Taper course of prednisone as following: First day 6 tabs, second day 5 tabs, third day 4 tabs, fourth day 3 tabs, fifth day 2 tabs, sixth day 1 tab, seventh half tab and eighth half tab Pickup at [facility] #[id number] This afternoon valACYclovir (Valtrex 500 mg oral [...] instructions 1 Oral Daily Tomorrow Pharmacy Information [id number]: [address] [place] [phone] Take your medications faithfully. Do NOT skip [...] intense exercise for several days. ??? Take kldw-iwl-qsprbrt and prescription medicines only as told by [...] not known. ??? Stay hydrated, and take ttpl-uty-mdbgkgl and prescription medicines only as told by your health care provider. This information is not intended to replace advice given to you by your health care provider. Make sure you discuss any questions you have with your health care provider. Document Revised: 09/03/2020 Document Reviewed: 09/03/2020 [employer] Patient Education ?? 2020 [employer]. Emergency Awareness and Preventative Care STROKE is [...] Assistance with quitting is available by contacting 9-685-RUJGNOW. This is a free resource providing counseling, [...] range between ( 1.0 and 7.0 ) Irion #: 2.80 K/uL -- Normal range between ( 0.24 and 0.82 ) Eos #: 0.00 K/uL -- Normal range between ( 0.04 and 0.54 ) Irion %: 17.6 % -- Normal range between [...] #: 4 K/uL ANC #: 5 K/uL Irion Percent Man: 19 % -- Normal range [...] was given the opportunity to ask questions. Patient/Inspector Machined Parts Name: Patient/Inspector Machined Parts Signature: Relationship to Patient: Clinician/Hospital Inspector Machined Parts Signature: Date: documented in this encounter Plan of Treatment Not on file documented as of this encounter Visit Diagnoses Not on filedocumented in this encounter Care Teams Traffic Or System Dispatcher Relationship Specialty Start Date End Date Eladio Lomas MD 1210 [facility] [address] [place] [address] Medical Oncologist Hematology and Oncology 07/08/22 Breanna Crow, PA-C [address] [address] Physician Outreach Coordinator Oncology 07/08/22 documented as of this encounter
--- OUTSIDE RECORDS SUMMARY | 2024-11-22 11:54 | XMS_ITS | Encounter Summary ---
Author Organization [employer] ([place], [place], [place], [place]) Address [address] [place] [address] Care Team Providers Care Scenario Writer Name Role Phone Eladio Lomas MD Unavailable Breanna Crow PA-C Unavailable [phone] Encounter Details Date Type Department Care Team (Late st Contact Info) Description 10/16/2021 Transcribed Document [facility] [place] Family Medicine [address] [place] [address] ProviderJailyn MD [address] [place] [address] Social History Tobacco Use Types [...] Date Ata rded Speak language other than Swazi at home Not on file 05/13/2023 Want [...] on filedocumented in this encounter Care Teams Scenario Writer Relationship Specialty Start Date End Date Eladio Lomas MD [address] [address] Medical Oncologist Hematology and Oncology 07/08/22 Breanna Crow PA-C [address] [place] [address] [address] [place] [address] Physician Engineering Design Manager Oncology 07/08/22 documented as of this encounter
--- OUTSIDE RECORDS SUMMARY | 2024-11-22 11:54 | XMS_ITS | Encounter Summary ---
Author Organization [employer] ([place], [place], [place], [place]) Address [address] [place] [address] Care Team Providers Care Deputy City Clerk Name Role Phone Eladio Lomas MD Unavailable Breanna Crow PA-C Unavailable [phone] Encounter Details Date Type Department Care Team (Late st Contact Info) Description 10/18/2021 Transcribed Document [facility] [place] Family Medicine [address] [place] [address] ProviderJailyn MD [address] [place] [address] Social History Tobacco Use Types [...] intense exercise for several days. ??? Take buge-jde-hgcbgmj and prescription medicines only as told by [...] not known. ??? Stay hydrated, and take gfje-qof-lemlvgr and prescription medicines only as told by your health care provider. This information is not intended to replace advice given to you by your health care provider. Make sure you discuss any questions you have with your health care provider. Document Revised: 09/03/2020 Document Reviewed: 09/03/2020 [email or web address] Patient Education ? 2020 [employer] documented in this encounter Plan of Treatment Not on file documented as of this encounter Visit Diagnoses Not on filedocumented in this encounter Care Teams Deputy City Clerk Relationship Specialty Start Date End Date Eladio Lomas MD 12[address] [facility] [address] [place] [address] Medical Oncologist Hematology and Oncology 07/08/22 Breanna Crow PA-C [address] [facility] [address] [place] [address] Physician Car Repairer Apprentice Oncology 07/08/22 documented as of this encounter
--- OUTSIDE RECORDS SUMMARY | 2024-11-22 11:54 | XMS_ITS | Encounter Summary ---
Author Organization [employer] ([place], [place], [place], [place]) Address [address] [place] [address] Care Team Providers Care Blueprint Cutter Name Role Phone Eladio Lomas MD Unavailable Breanna Crow PA-C Unavailable [phone] Encounter Details Date Type Department Care Team (Late st Contact Info) Description 10/16/2021 Transcribed Document [place] [facility] [address] [place] [address] ProviderJailyn MD [address] [place] [address] Social History Tobacco Use Types [...] Historical Provider, - 10/16/2021 2:00 AM CDT Aircraft Time Clerk Details Entered On: 10/16/2021 4:15 EDT Performed On: 10/16/2021 2:00 EDT by Tessy Gramajo RN-PATIENT CARE BEDSIDE NON-EXEMPT Order Details Order Detail : N/A Patient Needs Meds Crushed/Liquid : No Tessy Gramajo RN-PATIENT CARE BEDSIDE NON-EXEMPT - 10/16/2021 4:15 EDT Electronically signed by Huy [facility] Conversion Mirror Machine Feeder Cerner at 08/17/2022 6:18 PM CDT documented in this encounter Plan of Treatment Not on file documented as of this encounter Visit Diagnoses Not on filedocumented in this encounter Care Teams Blueprint Cutter Relationship Specialty Start Date End Date Eladio Lomas MD 1210 [facility] [address] [address] Medical Oncologist Hematology and Oncology 07/08/22 Breanna Crow, PACecilia [address] [facility] [address] [place] [address] Physician Insulation Blower Oncology 07/08/22 documented as of this encounter
--- OUTSIDE RECORDS SUMMARY | 2024-11-22 11:54 | XMS_ITS | Encounter Summary ---
Author Organization [employer] ([place], [place], [place], [place]) Address [address] [place] [address] Care Team Providers Care Inkjet Operator Name Role Phone Eladio Lomas MD Unavailable Breanna Crow PA-C Unavailable [phone] Encounter Details Date Type Department Care Team (Late st Contact Info) Description 10/26/2021 Transcribed Document [facility] [place] Family Medicine [address] [place] [address] ProviderJailyn MD [address] [place] [address] Social History Tobacco Use Types [...] in Consult note on 10/15/2021 by ROMERO aSleh Present Risk Factors Results and Location in [...] Discharge Summary on 10/18/2021 by Wilberto Brantley CDS/Global Manager Signature: Gui Hughes. Mehreen Phone #: Date/Time: 10/27/2021 00:42 This is a permanent part of the Medical Record Q55 2020 [employer] Reviewed: 07/2020 Q55 2020 [employer] Reviewed: 07/2020 Electronically signed by Huy, [facility] Conversion Volunteer Services Manager Cerner at 08/17/2022 6:04 PM CDT documented in this encounter Plan of Treatment Not on file documented as of this encounter Visit Diagnoses Not on filedocumented in this encounter Care Teams Inkjet Operator Relationship Specialty Start Date End Date Eladio Lomas MD 12[address] [facility] [address] [place] [address] Medical Oncologist Hematology and Oncology 07/08/22 Breanna Crow, PACecilia [address] [facility] [address] [place] [address] Physician Billing Associate Oncology 07/08/22 documented as of this encounter
--- OUTSIDE RECORDS SUMMARY | 2024-11-22 11:54 | XMS_ITS | Encounter Summary ---
Author Organization [employer] ([place], [place], [place], [place]) Address [address] [place] [address] Care Team Providers Care Grades 7 And 8 Visiting Teacher Name Role Phone Eladio Lomas MD Unavailable Breanna Crow PA-C Unavailable [phone] Encounter Details Date Type Department Care Team (Late st Contact Info) Description 10/18/2021 Transcribed Document [facility] [place] Family Medicine [address] [place] [address] ProviderJailyn MD [address] [place] [address] Social History Tobacco Use Types [...] Date Ata rded Speak language other than Swedish at home Not on file 05/13/2023 Want [...] 10/17/2021 11:52 EDT Electronically signed by Huy [facility] Conversion Leasing Assistant Cerner at 08/17/2022 5:59 PM CDT documented in this encounter Plan of Treatment Not on file documented as of this encounter Visit Diagnoses Not on filedocumented in this encounter Care Teams Grades 7 And 8 Visiting Teacher Relationship Specialty Start Date End Date Eladio Lomas MD [address] [facility] [address], [place] [address] Medical Oncologist Hematology and Oncology 07/08/22 Breanna Crow PA-C [address] [facility] [address] [place] [address] Physician Motor Electrician Oncology 07/08/22 documented as of this encounter
--- OUTSIDE RECORDS SUMMARY | 2024-11-22 11:54 | XMS_ITS | Encounter Summary ---
Author Organization [employer] ([place], [place], [place], [place]) Address [address] [place] [address] Care Team Providers Care Service Coordinator Elderly Facility Name Role Phone Eladio Lomas MD Unavailable Breanna Crow PA-C Unavailable [phone] Encounter Details Date Type Department Care Team (Late st Contact Info) Description 10/18/2021 Transcribed Document [facility] [place] [address] [place] [address] ProviderJailyn MD [address] [place] [address] Social History Tobacco Use Types [...] : Yes Discharge To Care Management : Home/Residential/[facility] or Self Care -01 ROMERO MCMANUS RN [...] filedocumented in this encounter Care Teams Service Coordinator Elderly Facility Relationship Specialty Start Date End Date Eladio Lmoas MD 1210 [facility] [address] [place] [address] Medical Oncologist Hematology and Oncology 07/08/22 Breanna Crow PACecilia [address] [facility] [address] [place] [address] Physician Battery Assembler Plastic Oncology 07/08/22 documented as of this encounter
--- OUTSIDE RECORDS SUMMARY | 2024-11-22 11:54 | XMS_ITS | Encounter Summary ---
Author Organization [employer] ([place], [place], [place], [place]) Address [address] [place] [address] Care Team Providers Care Aircraft Technician Name Role Phone Eladio Lomas MD Unavailable Breanna Crow PA-C Unavailable [phone] Encounter Details Date Type Department Care Team (Late st Contact Info) Description 10/16/2021 Transcribed Document [facility] [place] Medicine [address] [place] [address] ProviderJailyn MD [address] [place] [address] Social History Tobacco Use Types [...] At risk for sleep apnea / IMO [id number] / Confirmed, Active Problems (2) At risk [...] 99 (CINDI 16 17:56) Electronically signed by [facility], [facility] Conversion Driver Utility Worker Cerner at 08/17/2022 6:04 PM CDT documented in this encounter Plan of Treatment Not on file documented as of this encounter Visit Diagnoses Not on filedocumented in this encounter Care Teams Aircraft Technician Relationship Specialty Start Date End Date Eladio Lomas MD [address] [facility] [address] [address] Medical Oncologist Hematology and Oncology 07/08/22 Breanna Crow PA-C [address] [facility] [address] [place] [address] Physician Squash Centre Manager Oncology 07/08/22 documented as of this encounter
--- OUTSIDE RECORDS SUMMARY | 2024-11-22 11:54 | XMS_ITS | Encounter Summary ---
Author Organization [employer] ([place], [place], [place], [place]) Address [address] [place] [address] Care Team Providers Care Farmworker Cranberry Name Role Phone Eladio Lomas MD Unavailable Breanna Crow PA-C Unavailable [phone] Encounter Details Date Type Department Care Team (Late st Contact Info) Description 10/19/2021 Transcribed Document [facility] [place] [address] [place] [address] ProviderJailyn MD [address] [place] [address] Social History Tobacco Use Types [...] On: 10/19/2021 13:08 EDT by KEI JEAN-BAPTISTE Tipple Supervisor Primary Insurance Authorization Authorization and Policy Numbers : Insurance 1 Health Plan: HUMANA CHOICE PPO Policy Number: [id number] Authorization Number: Insurance Primary Name : HUMANA CHOICE PPO [id number] Authorization Status-Primary : Denied Reference Number-Primary : [id number] Authorized Service Begin Date-Primary : 10/15/2021 EDT [...] HUGO, RN-Utilization Review 10/15/2021 09:18) KEI JEAN-BAPTISTE, Tipple Supervisor - 10/19/2021 13:08 EDT Electronically signed by [facility] Conversion Washer Assembler Cerner at 08/17/2022 6:16 PM CDT documented in this encounter Plan of Treatment Not on file documented as of this encounter Visit Diagnoses Not on filedocumented in this encounter Care Teams Farmworker Cranberry Relationship Specialty Start Date End Date Eladio Lomas MD [address] [facility] [address] [place] [address] Medical Oncologist Hematology and Oncology 07/08/22 Breanna Crow PA-C [address] [facility] [address] [place] [address] Physician Oil Rig Driller Oncology 07/08/22 documented as of this encounter
--- OUTSIDE RECORDS SUMMARY | 2024-11-22 11:54 | XMS_ITS | Encounter Summary ---
Author Organization [employer] ([place], [place], [place], [place]) Address [address] [place] [address] Care Team Providers Care Dietary Supervisor Name Role Phone Eladio Lomas MD Unavailable Breanna Crow PA-C Unavailable [phone] Encounter Details Date Type Department Care Team (Late st Contact Info) Description 10/19/2021 Transcribed Document [facility] [place] [address] [place] [address] ProviderJailyn MD [address] [place] [address] Social History Tobacco Use [...] Health Plan: HUMANA CHOICE PPO Policy Number: [id number] Authorization Number: Insurance Primary Name : HU[employer]NA CHOICE PPO [id number] Authorization Status-Primary : Awaiting callback Reference Number-Primary : [id number] Authorized Service Begin Date-Primary : 10/15/2021 EDT Authorization Comments-Primary : HU[employer] CHOICE PPO auth still pending per availity Historical Authorization Comments-Primary : Comment 1: Clinicals faxed via [employer] (Natalie Lauren, Rn-Utilization Review 10/15/2021 09:30) Comment 2: HUMANA CHOICE PPO auth pending per Star note. (JUANITA HUGO, RN-Utilization Review 10/15/2021 09:18) JUANITA HUGO RN-Utilization Review - 10/19/2021 11:01 EDT documented in this encounter Plan of Treatment Not on file documented as of this encounter Visit Diagnoses Not on filedocumented in this encounter Care Teams Dietary Supervisor Relationship Specialty Start Date End Date Eladio Lomas MD [address] [facility] [address] [place] [address] Medical Oncologist Hematology and Oncology 07/08/22 Breanna Crow PA-C [address] [facility] [address] [place] [address] Physician Spray Gunner Oncology 07/08/22 documented as of this encounter
--- OUTSIDE RECORDS SUMMARY | 2024-11-22 11:54 | XMS_ITS | Encounter Summary ---
Author Organization [employer] ([place], [place], [place], [place]) Address [address] [place] [address] Care Team Providers Care Grainer Machine Name Role Phone Eladio Lomas MD Unavailable Breanna Crow PA-C Unavailable [phone] Encounter Details Date Type Department Care Team (Late st Contact Info) Description 10/20/2021 Transcribed Document [facility] [place] [address] [place] [address] ProviderJailyn MD [address] [place] [address] Social History Tobacco Use Types [...] often do you attend chur ch or baptism services? Never 07/08/2022 Do you belong to [...] Health Plan: HUMANA CHOICE PPO Policy Number: [id number] Authorization Number: Insurance Primary Name : HUMANA CHOICE PPO [id number] Authorization Status-Primary : Denied Reference Number-Primary : [id number] Authorized Service Begin Date-Primary : 10/15/2021 EDT Authorization Comments-Primary : Emailed denial to [employer] Historical Authorization Comments-Primary : Comment 1: Rec faxed Denial from [employer] 10/19/21 Placed in tray on [employer] desk (KEI JEAN-BAPTISTE, Gis Software Engineer 10/19/2021 13:08) Comment 2: HUMANA CHOICE PPO [...] on filedocumented in this encounter Care Teams Grainer Machine Relationship Specialty Start Date End Date Eladio Lomas MD [address] [facility] [address] [place] [address] Medical Oncologist Hematology and Oncology 07/08/22 Breanna Crow PA-C [address] [facility] [address] [place] [address] Physician Mri Special Procedures Technologist Oncology 07/08/22 documented as of this encounter
--- OUTSIDE RECORDS SUMMARY | 2024-11-22 11:54 | XMS_ITS | Encounter Summary ---
Author Organization [employer] ([place], [place], [place], [place]) Address [address] [place] [address] Care Team Providers Care Sales Representative Aircraft Name Role Phone Eladio Lomas MD Unavailable Breanna Crow PA-C Unavailable [phone] Encounter Details Date Type Department Care Team (Late st Contact Info) Description 10/16/2021 Transcribed Document [facility] [place] [address] [place] [address] ProviderJailyn MD [address] [place] [address] Social History Tobacco Use Types [...] Date Ata rded Speak language other than Indonesian at home Not on file 05/13/2023 Want [...] - 10/16/2021 14:01 EDT Electronically signed by [facility], [facility] Conversion Laundry Housekeeping Aide Cerner at 08/17/2022 5:59 PM CDT documented in this encounter Plan of Treatment Not on file documented as of this encounter Visit Diagnoses Not on filedocumented in this encounter Care Teams Sales Representative Aircraft Relationship Specialty Start Date End Date Eladio Lomas MD [address] [facility] [address] [place] [address] Medical Oncologist Hematology and Oncology 07/08/22 Breanna Crow, PACecilia [address] [facility] [address] [place] [address] Physician Math Coach Oncology 07/08/22 documented as of this encounter
--- OUTSIDE RECORDS SUMMARY | 2024-11-22 11:54 | XMS_ITS | Encounter Summary ---
Author Organization [employer] ([place], [place], [place], [place]) Address [address] [place] [address] Care Team Providers Care Air Hoist Operator Name Role Phone Eladio Lomas MD Unavailable Breanna Crow PA-C Unavailable [phone] Encounter Details Date Type Department Care Team (Late st Contact Info) Description 12/29/2021 Transcribed Document [facility] [place] [address] [place] [address] ProviderJailyn MD [address] [place] [address] Social History Tobacco Use Types [...] often do you attend chur ch or buddhism services? Never 07/08/2022 Do you belong to [...] Date Ata rded Speak language other than Jamaican at home Not on file 05/13/2023 Want [...] Source : Stated Height Entry Format : [place] Height, Feet : 5 ft(Converted to: 152 cm, 60 Inch) Height, Inches : 6 Inch(Converted to: 0 ft 6 Inch, 15.24 cm) Clinical Height : 167.64 cm Weight Source : Standing scale Weight Entry Format : [place] Clinical Dosing Weight : 72.73 kg Weight, Pounds : 160 lb Body Surface Area (BSA) : 1.82 m2 Body Mass Index : 25.9 kg/m2 (HI) [place] Body Weight : 63 kg JOSELINE MIRAMONTES [...] JOSELINE MIRAMONTES RN - 12/29/2021 10:51 EDT Will Suicide Severity Rating Scale (C-SSRS) CSSRS Past [...] #2 Relationship : - Primary Language : Jamaican Communication Barrier : None Development Assistant Needed : No JOSELINE MIRAMONTES RN - [...] filedocumented in this encounter Care Teams Air Hoist Operator Relationship Specialty Start Date End Date Eladio Lomas MD [address] [facility] [address] [place] [address] Medical Oncologist Hematology and Oncology 07/08/22 Breanna Crow PA-C [address] [facility] [address] [place] [address] Physician Airport Clerk Oncology 07/08/22 documented as of this encounter
--- OUTSIDE RECORDS SUMMARY | 2024-11-22 11:54 | XMS_ITS | Encounter Summary ---
Author Organization [employer] ([place], [place], [place], [place]) Address [address] [place] [address] Care Team Providers Care Conformal Pad Former Name Role Phone Eladio Lomas MD Unavailable Breanna Crow PA-C Unavailable [phone] Encounter Details Date Type Department Care Team (Late st Contact Info) Description 10/17/2021 Transcribed Document [facility] [place] Medicine [address] [place] [address] ProviderJailyn MD [address] [place] [address] Social History Tobacco Use Types [...] Date Ata rded Speak language other than Trinidadian at home Not on file 05/13/2023 Want [...] lower motor neuron process.. Integumentary: Warm, Dry, [place]. Neurologic: Alert, Oriented, Cranial Nerves II-XII are [...] the rash. Leukocytosis, procalcitonin ordered. Disposition: Pending lifestyle consultant recommendations and plans, still needs further [...] # 4.35 K/uL (High) 10/17/2021 02:21 EDT [place] % 15.2 % (High) 10/17/2021 02:21 EDT [place] # 2.14 K/uL (High) 10/17/2021 02:21 EDT [...] Second(s) 10/17/2021 02:21 EDT Electronically signed by [facility], [facility] Conversion Spray Drier Cerner at 08/17/2022 6:20 PM CDT documented in this encounter Plan of Treatment Not on file documented as of this encounter Visit Diagnoses Not on filedocumented in this encounter Care Teams Conformal Pad Former Relationship Specialty Start Date End Date Eladio Lomas MD [address] [facility] [address] [place] [address] Medical Oncologist Hematology and Oncology 07/08/22 Breanna Crow PA-C [address] [facility] [address] [place] [address] Physician Transmission And Protection Engineer Oncology 07/08/22 documented as of this encounter
--- OUTSIDE RECORDS SUMMARY | 2024-11-22 11:54 | XMS_ITS | Encounter Summary ---
Author Organization [employer] ([place], [place], [place], [place]) Address [address] [place] [address] Care Team Providers Care Grain Miller Helper Name Role Phone Eladio Lomas MD Unavailable Breanna Crow PA-C Unavailable [phone] Encounter Details Date Type Department Care Team (Late st Contact Info) Description 10/29/2021 Transcribed Document [facility] [place] Medicine [address] [place] [address] ProviderJailyn MD [address] [place] [address] Social History Tobacco Use Types [...] Date Ata rded Speak language other than Ecuadorean at home Not on file 05/13/2023 Want [...] Health Plan: HUMANA CHOICE PPO Policy Number: [id number] Authorization Number: Insurance Primary Name : HUMANA CHOICE PPO [id number] Authorization Status-Primary : Denied Reference Number-Primary : [id number] Authorized Service Begin Date-Primary : 10/15/2021 EDT [...] 13:43) Comment 2: Rec faxed Denial from [facility] 10/19/21 Placed in tray on [employer] desk (KEI JEAN-BAPTISTE, Air Boatswain 10/19/2021 13:08) Comment 3: HUMANA CHOICE PPO auth still pending per availity (JUANITA HUGO, SHARYN-Utilization Review 10/19/2021 11:01) Comment 4: Clinicals faxed via [employer] (Natalie Lauren, Sharyn-Utilization Review 10/15/2021 09:30) Comment 5: HUMANA CHOICE PPO auth pending per Star note. (JUANITA HUGO RN-Utilization Review 10/15/2021 09:18) DIETER MAR RN - 10/29/2021 8:47 EDT documented in this encounter Plan of Treatment Not on file documented as of this encounter Visit Diagnoses Not on filedocumented in this encounter Care Teams Grain Miller Helper Relationship Specialty Start Date End Date Eladio Lomas MD [address] [facility] [address] [facility] [address] Medical Oncologist Hematology and Oncology 07/08/22 Breanna Crow, CHAVA [address] [address] Physician Water Ski Assembler Oncology 07/08/22 documented as of this encounter
--- OUTSIDE RECORDS SUMMARY | 2024-11-22 11:54 | XMS_ITS | Encounter Summary ---
Author Organization [employer] ([place], [place], [place], [place]) Address [address] [place] [address] Care Team Providers Care Pathology Specialist Name Role Phone Eladio Lomas MD Unavailable Breanna Crow PA-C Unavailable [phone] Encounter Details Date Type Department Care Team (Late st Contact Info) Description 10/16/2021 Transcribed Document [facility] [address] [place] [address] Romero Dias MD [address] [place] [address] Social History Tobacco Use Types [...] often do you attend chur ch or confucianism services? Never 07/08/2022 Do you belong to [...] Date Ata rded Speak language other than Norwegian at home Not on file 05/13/2023 Want [...] no evidence of a meningeal encephalitis or [place]?? secondary to his varicella and I [...] Shortness of Breath Lovenox: 40 mg, SubCutaneous, [id number] MiraLax: 17 Gram, Oral, Daily, PRN: Constipation [...] mL inj 40 mg 0.4 mL, SubCutaneous, [id number] famotidine 20 mg tab 20 mg 1 [...] At risk for sleep apnea / IMO [id number] / Confirmed, Active Problems (2) At risk [...] lower motor neuron process.. Integumentary: Warm, Dry, [place]. Neurologic: Alert, Oriented, Cranial Nerves II-XII are [...] on filedocumented in this encounter Care Teams Pathology Specialist Relationship Specialty Start Date End Date Eladio Lomas MD [address] [address] Medical Oncologist Hematology and Oncology 07/08/22 Breanna Crow PA-C [address] [facility] [address] [place] [address] Physician Skein Inspector Oncology 07/08/22 documented as of this encounter
--- OUTSIDE RECORDS SUMMARY | 2024-11-22 11:54 | XMS_ITS | Encounter Summary ---
Author Organization [employer] ([place], [place], [place], [place]) Address [address] [place] [address] Care Team Providers Care Utility System Repairer Name Role Phone Eladio Lomas MD Unavailable Breanna Crow PA-C Unavailable [phone] Encounter Details Date Type Department Care Team (Late st Contact Info) Description 10/16/2021 Transcribed Document [facility] [place] Family Medicine [address] [place] [address] ProviderJailyn MD [address] [place] [address] Social History Tobacco Use Types [...] Sent to Post Acute Providers : No [facility] Quality Web Info Shared w Pt/Fam : [...] filedocumented in this encounter Care Teams Utility System Repairer Relationship Specialty Start Date End Date Eladio Lomas MD [address] [facility] [address] [place] [address] Medical Oncologist Hematology and Oncology 07/08/22 Breanna Crow PACecilia [address] [place], [place] [id number] Physician Software Sales Representative Oncology 07/08/22 documented as of this encounter
--- OUTSIDE RECORDS SUMMARY | 2024-11-22 11:54 | XMS_ITS | Encounter Summary ---
Author Organization [employer] ([place], [place], [place], [place]) Address [address] [place] [address] Care Team Providers Care Mechanical Service Representative Name Role Phone Eladio Lomas MD Unavailable Breanna Crow PA-C Unavailable [phone] Encounter Details Date Type Department Care Team (Late st Contact Info) Description 10/18/2021 Transcribed Document [facility] [place] [address] [place] [address] ProviderJailyn MD [address] [place] [address] Social History Tobacco Use Types [...] Date Ata rded Speak language other than French at home Not on file 05/13/2023 Want [...] 10/18/2021 12:27 EDT Electronically signed by [facility] Conversion Java Technical Manager Cerner at 08/17/2022 6:01 PM CDT documented in this encounter Plan of Treatment Not on file documented as of this encounter Visit Diagnoses Not on filedocumented in this encounter Care Teams Mechanical Service Representative Relationship Specialty Start Date End Date Eladio Lomas MD [address] [address] Medical Oncologist Hematology and Oncology 07/08/22 Breanna Crow, PA-C [address] [facility] [address] [place] [address] Physician Box Spring Upholsterer Oncology 07/08/22 documented as of this encounter
--- OUTSIDE RECORDS SUMMARY | 2024-11-22 11:54 | XMS_ITS | Encounter Summary ---
Author Organization [employer] ([place], [place], [place], [place]) Address [address] [place] [address] Care Team Providers Care Radio Adjuster Name Role Phone Eladio Lomas MD Unavailable Breanna Crow PA-C Unavailable [phone] Encounter Details Date Type Department Care Team (Late st Contact Info) Description 10/16/2021 Transcribed Document [facility] [place] [address] [place] [address] ProviderJailyn MD [address] [place] [address] Social History Tobacco Use Types [...] lower motor neuron process.. Integumentary: Warm, Dry, [place]. Neurologic: Alert, Oriented, Cranial Nerves II-XII are [...] the setting of recent varicella. Disposition: Pending as400 consultant recommendations and plan. May need rehab [...] Lymph # 3.37 K/uL 10/16/2021 04:00 EDT [place] % 19.5 % (High) 10/16/2021 04:00 EDT [place] # 2.25 K/uL (High) 10/16/2021 04:00 EDT [...] ng/mL 10/16/2021 04:00 EDT Electronically signed by [facility], [facility] Conversion Trauma Doctor Cerner at 08/17/2022 6:11 PM CDT documented in this encounter Plan of Treatment Not on file documented as of this encounter Visit Diagnoses Not on filedocumented in this encounter Care Teams Radio Adjuster Relationship Specialty Start Date End Date Eladio Lomas MD [address] [facility] [address] [place] [address] Medical Oncologist Hematology and Oncology 07/08/22 Breanna Crow, PA-C [address] [place] [address] Physician Inorganic Chemical Technician Oncology 07/08/22 documented as of this encounter
--- NOTE | 2024-11-22 12:00 | ECG_ITS ---
APPROVED REPORT Exam: Resting ECG HR:76 bpm ECG Measurements Heart Rate 76 AXES MD 154 P 37 QRSd 84 QRS 65 QT 343 T 41 QTc 373 Conclusion SINUS RHYTHM NORMAL ECG UNCONFIRMED REPORT Electronically signed by : Jeronimo Anand MD 11/23/2024 07:55:16
== END 2024-11-22 23:59 | disposition home or self-care (01) ==
LOC: RT 11:50
PROVIDERS: PCP Family Medicine; Visit Provider Internal Medicine Medical Oncology
DX: C91.12 Chronic lymphocytic leukemia of B-cell type in relapse (principal)
CPT/HCPCS: 93005

== ENCOUNTER 2024-11-29 09:50 | Outpatient (CLI) | payer MEDICARE, SELFPAY ==
--- OUTSIDE RECORDS SUMMARY | 2024-11-29 09:53 | XMS_ITS | Encounter Summary ---
Author Organization [employer] ([place], [place], [place], [place]) Address [address] [place] [address] Care Team Providers Care Bi Report Developer Name Role Phone Eladio Lomas MD Unavailable Breanna Crow PA-C Unavailable [phone] Encounter Details Date Type Department Care Team (Late st Contact Info) Description 10/17/2021 Transcribed Document [facility] [place] [address] [place] [address] ProviderJailyn MD [address] [place] [address] Social History Tobacco Use [...] Historical Provider, - 10/17/2021 2:00 AM CDT Content Development Manager Details Entered On: 10/17/2021 5:10 EDT Performed [...] - 10/17/2021 5:09 EDT Electronically signed by [facility], [facility] Conversion Underliner Cerner at 08/17/2022 6:17 PM CDT documented in this encounter Plan of Treatment Not on file documented as of this encounter Visit Diagnoses Not on filedocumented in this encounter Care Teams Bi Report Developer Relationship Specialty Start Date End Date Eladio Lomas MD [address] [place] [address] Medical Oncologist Hematology and Oncology 07/08/22 Breanna Crow, PA-C [address] [facility] [address] [place] [address] Physician Housekeeping Attendant Oncology 07/08/22 documented as of this encounter
--- OUTSIDE RECORDS SUMMARY | 2024-11-29 09:53 | XMS_ITS | Encounter Summary ---
Author Organization [employer] ([place], [place], [place], [place]) Address [address] [place] [address] Care Team Providers Care Flaring Machine Operator Name Role Phone Eladio Lomas MD Unavailable Breanna Crow PA-C Unavailable [phone] Encounter Details Date Type Department Care Team (Late st Contact Info) Description 10/17/2021 Transcribed Document [facility] [place] Family Medicine [address] [place] [address] ProviderJailyn MD [address] [place] [address] Social History Tobacco Use Types [...] often do you attend chur ch or samaritan services? Never 07/08/2022 Do you belong to [...] Date Ata rded Speak language other than Singaporean at home Not on file 05/13/2023 Want [...] # 4.35 K/uL (High) 10/17/2021 02:21 EDT [place] % 15.2 % (High) 10/17/2021 02:21 [address] [place] # 2.14 K/uL (High) 10/17/2021 02:21 EDT [...] Second(s) 10/17/2021 02:21 EDT Electronically signed by Rock Son Conversion Director Of Enterprise Applications Cerner at 08/17/2022 6:17 PM CDT documented in this encounter Plan of Treatment Not on file documented as of this encounter Visit Diagnoses Not on filedocumented in this encounter Care Teams Flaring Machine Operator Relationship Specialty Start Date End Date Eladio Lomas MD [address] [facility] [address] [place] [address] Medical Oncologist Hematology and Oncology 07/08/22 Breanna Crow PA-C [address] [facility] [address] [place] [address] Physician Cell Preparer Oncology 07/08/22 documented as of this encounter
--- OUTSIDE RECORDS SUMMARY | 2024-11-29 09:53 | XMS_ITS | Clinical Summary ---
Author Organization [facility] Address [address] [place] [address] Care Team Providers Care Cracker And Cookie Machine Operator Name Role Phone Per Patient, None [...] or (1 - 1-dose 75+ series) 01/05/2023 [id number] Vaccine ( - 2023- season) 2024 07/25/2020, [...] this topic Insurance HUMANA MEDICARE Care Teams Cracker And Cookie Machine Operator Relationship Specialty Start Date End Date Per [place], [place] [address] PCP - General 05/02/20
--- OUTSIDE RECORDS SUMMARY | 2024-11-29 09:53 | XMS_ITS | Encounter Summary ---
Author Organization [facility] Address [address] [id number] Care Team Providers Care Csr Retail Name Role Phone Per Patient, None Primary Care Provider Unavaila ble Encounter Details Date Type Department Care Team ([facility] st Contact Info) Description 10/08/2021 Lab Requisition [facility] [address] [place] [address] Maurice Power MD [facility] [place] [address] Unspecified lesions of oral mucosa [...] billing purposes only. 10/26/2021 7:22 AM EDT [facility] at 0722 EDT Case Report Surgical Pathology Report Case: [id number] Authorizing Provider: Maurice Power MD Collected: 10/08/2021 Ordering Location: [facility] Received: 10/08/2021 1287 Pathologist: Cindy Flores MD Specimen: [id number] 10/26/2021 7:22 AM EDT [facility] Tissue 10/08/2021 10/08/2021 4:5 9 PM EDT us Maurice Power MD LAB PATHOLOGY ORDERABLES Final Result [facility] [address] [place] [address] documented in this encounter Visit Diagnoses Diagnosis Unspecified lesions of oral mucosa documented in this encounter Care Teams Csr Retail Relationship Specialty Start Date End Date Per [place], [place] [address] PCP - General 05/02/20 documented as of this encounter
--- OUTSIDE RECORDS SUMMARY | 2024-11-29 09:53 | XMS_ITS | Encounter Summary ---
Author Organization [employer] ([place], [place], [place], [place]) Address [address] [place] [address] Care Team Providers Care Animal Tech Name Role Phone Eladio Lomas MD Unavailable Breanna Crow PA-C Unavailable [phone] Encounter Details Date Type Department Care Team (Late st Contact Info) Description 10/17/2021 Transcribed Document [facility] [place] [address] [place] [address] ProviderJailyn MD [address] [place] [address] Social History Tobacco Use Types [...] Date Ata rded Speak language other than German at home Not on file 05/13/2023 Want [...] 10/17/2021 5:08 EDT Electronically signed by Huy [facility] Conversion Brineyard Supervisor Cerner at 08/17/2022 6:00 PM CDT documented in this encounter Plan of Treatment Not on file documented as of this encounter Visit Diagnoses Not on filedocumented in this encounter Care Teams Animal Tech Relationship Specialty Start Date End Date Eladio Lomas MD [address] [facility] [address] [place] [address] Medical Oncologist Hematology and Oncology 07/08/22 Breanna Crow PA-C [address] [facility] [address] [place] [address] Physician Drill Press Operator Numerical Control Oncology 07/08/22 documented as of this encounter
--- OUTSIDE RECORDS SUMMARY | 2024-11-29 09:53 | XMS_ITS | Encounter Summary ---
Author Organization [employer] ([place], [place], [place], [place]) Address [address] [place] [address] Care Team Providers Care Sales Associate Key Holder Name Role Phone Eladio Lomas MD Unavailable Breanna Crow PA-C Unavailable [phone] Encounter Details Date Type Department Care Team (Late st Contact Info) Description 10/17/2021 Transcribed Document [facility] [place] [address] [place] [address] ProviderJailyn MD [address] [place] [address] Social History Tobacco Use Types [...] to fall prompting [place] [facility] [place]. He was admitted for concerns of Claudia Nelson Syndrome. A CT scan of lumbar spine [...] with pancreatic cancer SH: , lives in [place], [place]. Former remotes smoker, denies alcohol, or [...] (CINDI 17) 105 (CINDI 16) CO2 28 (CNIDI 18) 26 (CINDI 17) 27 (CINDI 16) [...] None Rad: Radiology Results (Last 48 hours) [id number] -- 10/15/2021 03:06 MRI Spine Thoracic WO [...] Dr. Trena Donahue. Electronically signed by Huy [facility] Conversion Java Sql Developer Cerner at 08/17/2022 6:00 PM CDT documented in this encounter Plan of Treatment Not on file documented as of this encounter Visit Diagnoses Not on filedocumented in this encounter Care Teams Sales Associate Key Holder Relationship Specialty Start Date End Date Eladio Lomas MD [address] [facility] [address] [place] [address] Medical Oncologist Hematology and Oncology 07/08/22 Breanna Crow PA-C [address] [facility] [address] [place] [address] Physician Deli Associate Oncology 07/08/22 documented as of this encounter
--- OUTSIDE RECORDS SUMMARY | 2024-11-29 09:53 | XMS_ITS | Encounter Summary ---
Author Organization [employer] ([place], [place], [place], [place]) Address [address] [place] [address] Care Team Providers Care Rnp Name Role Phone Eladio Lomas MD Unavailable Breanna Crow PA-C Unavailable [phone] Encounter Details Date Type Department Care Team (Late st Contact Info) Description 10/17/[address] [facility] [place] Family Medicine [address] [place] [address] ProviderJailyn MD [address] [place] [address] Social History Tobacco Use Types [...] Date Ata rded Speak language other than Venezuelan at home Not on file 05/13/2023 Want [...] to assume that as it was a police officer crime prevention who did the biopsy, and and told [...] At risk for sleep apnea / IMO [id number] / Confirmed, Active Problems (2) At risk for sleep apnea Mitral valve prolapse documented in this encounter Plan of Treatment Not on file documented as of this encounter Visit Diagnoses Not on filedocumented in this encounter Care Teams Rnp Relationship Specialty Start Date End Date Eladio Lomas MD 1210 [facility] [address] [place] [address] Medical Oncologist Hematology and Oncology 07/08/22 Breanna Crow PA-C [address] [address] Physician Battery Starter Oncology 07/08/22 documented as of this encounter
--- OUTSIDE RECORDS SUMMARY | 2024-11-29 09:54 | XMS_ITS | Encounter Summary ---
Author Organization [employer] ([place], [place], [place], [place]) Address [address] [place] [address] Care Team Providers Care Maintenance Analyst Name Role Phone Eladio Lomas MD Unavailable Breanna Crow PA-C Unavailable [phone] Encounter Details Date Type Department Care Team (Late st Contact Info) Description 01/01/2022 Transcribed Document [facility] [place] [address] [place] [address] ProviderJailyn MD [address] [place] [address] Social History Tobacco Use [...] Date Ata rded Speak language other than South Sudanese at home Not on file 05/13/2023 [...] Pt. Name: CORBIN HU /Sex: 1950 Male [facility] Rec #: [id number] Physician: GARCIA WORKMAN MD-ORT Financial #: [id number] Pt. Type: O Room/Bed: [facility] Admit/Disch: 01/01/22 09:26:00 - Institution: [facility] IntraOp Case Attendance Entry 1 Entry 2 Entry 3 Case Attendee GARCIA WORKMAN MD-ORT MCDONALD, LEAH BETH, Bowling, Jachob, CRNA [email or web address] Role Performed Surgeon/Proceduralist, MOBILE LAB TECHNICIAN/Nurse Radiologist Chief Of Breast Imaging MOBILE LAB TECHNICIAN/Nurse Radiologist Chief Of Breast Imaging First Time In 01/01/22 10:42:00 01/01/22 10:42:00 01/01/22 10:42:00 Time Out 01/01/22 11:49:00 01/01/22 11:49:00 01/01/22 11:49:00 Procedure Lumbar Laminectomy Lumbar Laminectomy Lumbar Laminectomy Other Attendee Superficial Wound Closed By: Last Modified By: SAMMIE PEREZ RN LONGSWORTH, GARY, RN LONGSWORTH, GARY, RN 01/01/22 11:49:14 01/01/22 11:49:14 01/01/22 11:49:14 Entry 4 Entry 5 Entry 6 Case Attendee SAMMIE PEREZ, Lea Charles, RN Paulina Joseph, Computer Forensics Technician Role Performed Manufacturing Controller, First Manufacturing Controller, Second Scrub, First Time In 01/01/22 10:42:00 01/01/22 10:42:00 01/01/22 10:42:00 Time Out 01/01/22 11:49:00 01/01/22 11:49:00 01/01/22 11:49:00 Procedure Lumbar Laminectomy Lumbar Laminectomy Lumbar Laminectomy Other Attendee Superficial Wound Closed By: Last Modified By: SAMMIE PEREZ RN LONGSWORTH, GARY, SAMMIE VARNER RN 01/01/22 11:49:14 01/01/22 11:49:14 01/01/22 11:49:14 Entry 7 Entry 8 Entry 9 Case Attendee Layla Padilla, CHRISTOFER ARDON, Masha Queen, Refrigeration Insulator Role Performed Scrub, Second Physician camp assistant Maintenance Mechanic Supervisor Time In 01/01/22 10:42:00 01/01/22 10:42:00 01/01/22 10:42:00 Time Out 01/01/22 11:49:00 01/01/22 11:49:00 01/01/22 11:49:00 Procedure Lumbar Laminectomy Lumbar Laminectomy Lumbar Laminectomy Other Attendee Superficial Wound Closed By: Last Modified By: SAMMIE PEREZ, SAMMIE VARNER, RN SAMMIE PEREZ, SHARYN 01/01/22 11:49:14 01/01/22 11:49:14 01/01/22 11:49:14 [facility] IntraOp Case Attendance Audit 01/01/22 11:49:14 Hiv Counselor: SAM Modifier: LONGGA 1 <+> Time In [...] 9 <*> Procedure Lumbar Laminectomy 01/01/22 10:34:07 Hiv Counselor: SAM Modifier: LONGGA <+> 1 Procedure 2 [...] [facility] IntraOp Case Times Audit 01/01/22 11:49:13 Hiv Counselor: LONGGA Modifier: LONGGA <+> 1 Out Room Time <+> 1 Stop Time <+> 1 Stop Time 01/01/22 11:07:50 Hiv Counselor: LONGGA Modifier: LONGGA <+> 1 Start Time [...] 11:10:17 [facility] IntraOp Cautery Audit 01/01/22 11:10:35 Hiv Counselor: LONGGA Modifier: LONGGA 1 <*> Grounding Pad [...] RN 01/01/22 10:31:33 [facility] IntraOp General Case Coal Gasification Technician 1 Case Information OR OR 01 [facility] Case Level 1 Room Verified Yes Wound Class 1 - Clean Specialty Neurosurgery Anesthesia Type General ASA Class 2 Diagnosis Preop Diagnosis STENOSIS L4-5 Postop Same As Preop Yes Postop Diagnosis STENOSIS L4-5 Wound Class Definitions Last Modified By: SAMMIE PEREZ RN 01/01/22 10:47:20 [facility] IntraOp General Case Data Audit 01/01/22 10:47:20 Hiv Counselor: LONGJACKI Modifier: LONGGA 1 <*> OR OR [...] 1ml epinephrine 1:200,000 topical kit injection - [id number] 30ml vial - [id number] (recombinant) - [id number] Combo Med List Time Administered Route of [...] [facility] IntraOp Medication Admin Audit 01/01/22 11:28:39 Hiv Counselor: LONGGA Modifier: LONGGA <+> 3 Medication/Irrigant <+> [...] [facility] IntraOp Surgical Procedures Audit 01/01/22 11:41:50 Hiv Counselor: LONGGA Modifier: LONGGA 1 <*> Procedure Lumbar Laminectomy 1 <+> Stop 01/01/22 11:38:39 Hiv Counselor: LONGGA Modifier: LONGGA 1 <*> Procedure Lumbar Laminectomy 1 <*> Additional Procedure Description RIGHT L4-5 LAMINECTOMY, DISCECTOMY 01/01/22 11:07:55 Hiv Counselor: LONGGA Modifier: LONGGA <+> 1 Start [facility] IntraOp Temp Regulation Devices Entry 1 Temp Regulation Temperature Warm blankets Regulation Device Temperature Upper body Regulation Site Temperature LARRY GAMINO, Regulation Device MOBILE LAB TECHNICIAN Applied by Last Modified By: SAMMIE PEREZ [...] Type Fluoroscopy Fluoroscopy Type C-Arm Site BACK Talking Books Library Clerk Name Masha Sanders, Refrigeration Insulator Protective Devices Yes Used Last Modified By: [...] filedocumented in this encounter Care Teams Maintenance Analyst Relationship Specialty Start Date End Date Eladio Lomas MD [address] [facility] [address] [address] Medical Oncologist Hematology and Oncology 07/08/22 Breanna Crow PA-C [address] [place] [address] [place] [address] Physician Pump Mechanic Oncology 07/08/22 documented as of this encounter
--- OUTSIDE RECORDS SUMMARY | 2024-11-29 09:54 | XMS_ITS | Encounter Summary ---
Author Organization [employer] ([place], [place], [place], [place]) Address [address] [place] [address] Care Team Providers Care Cantilever Crane Operator Name Role Phone Eladio Lomas MD Unavailable Breanna Crow PA-C Unavailable [phone] Encounter Details Date Type Department Care Team (Late st Contact Info) Description 10/15/2021 Transcribed Document [facility] [place] [address] [place] [address] ProviderJailyn MD [address] [place] [address] Social History Tobacco Use Types [...] 10/15/2021 20:37 EDT Electronically signed by Huy [facility] Conversion Gas Load Dispatcher Cerner at 08/17/2022 6:14 PM CDT documented in this encounter Plan of Treatment Not on file documented as of this encounter Visit Diagnoses Not on filedocumented in this encounter Care Teams Cantilever Crane Operator Relationship Specialty Start Date End Date Eladio Lomas MD 12[address] [facility] [address], [place] [address] Medical Oncologist Hematology and Oncology 07/08/22 Breanna Crow, PA-C [address] [facility] [address] [place] [address] Physician Sales Professional Oncology 07/08/22 documented as of this encounter
--- OUTSIDE RECORDS SUMMARY | 2024-11-29 09:54 | XMS_ITS | Encounter Summary ---
Author Organization [employer] ([place], [place], [place], [place]) Address [address] [place] [address] Care Team Providers Care Human Resources Partner Name Role Phone Eladio Lomas MD Unavailable Breanna Crow PA-C Unavailable [phone] Encounter Details Date Type Department Care Team (Late st Contact Info) Description 10/15/2021 Transcribed Document [facility] [place] [address] [place] [address] ProviderJailyn MD [address] [place] [address] Social History Tobacco Use Types [...] on filedocumented in this encounter Care Teams Human Resources Partner Relationship Specialty Start Date End Date Eladio Lomas MD [address] [address] Medical Oncologist Hematology and Oncology 07/08/22 Breanna Crow, PA-C [address] [place] [address] Physician Turkish Rubber Oncology 07/08/22 documented as of this encounter
--- OUTSIDE RECORDS SUMMARY | 2024-11-29 09:54 | XMS_ITS | Encounter Summary ---
Author Organization [employer] ([place], [place], [place], [place]) Address [address] [place] [address] Care Team Providers Care Rn Acute Dialysis Name Role Phone Eladio Lomas MD Unavailable Breanna Crow PA-C Unavailable [phone] Encounter Details Date Type Department Care Team (Late st Contact Info) Description 10/15/2021 Transcribed Document [facility] [place] Family Medicine [address] [place] [address] ProviderJailyn MD [address] [place] [address] Social History Tobacco Use Types [...] often do you attend chur ch or evangelical services? Never 07/08/2022 Do you belong to [...] On: 10/15/2021 12:50 EDT by Miladys Carter, [facility] Coord Phone Call for Consults Consult Reason : spine for right L5 radiculopathy causing foot drop Physician Requesting Consult : ROMERO INGRAM MD-SERENE Physician Requested for Consult : SHARON PATRICIO MD-ORT Date and Time Call Returned : 10/15/2021 14:40 EDT Consult, Additional Information : Spoke with Dr. Rosenberg on the phone concerning the consult. Miladys Carter, [facility] Coord - 10/15/2021 14:41 EDT Electronically signed by [facility] Conversion Cartographic Technician Cerner at 08/17/2022 5:55 PM CDT documented in this encounter Plan of Treatment Not on file documented as of this encounter Visit Diagnoses Not on filedocumented in this encounter Care Teams Rn Acute Dialysis Relationship Specialty Start Date End Date Eladio Lomas MD 1210 [facility] [address] [place] [address] Medical Oncologist Hematology and Oncology 07/08/22 Breanna Crow PACecilia [address] [facility] [address] [place] [address] Physician Bolter Helper Oncology 07/08/22 documented as of this encounter
--- OUTSIDE RECORDS SUMMARY | 2024-11-29 09:54 | XMS_ITS | Encounter Summary ---
Author Organization [employer] ([place], [place], [place], [place]) Address [address] [place] [address] Care Team Providers Care Speech And Language Clinician Name Role Phone Eladio Lomas MD Unavailable Breanna Crow PA-C Unavailable [phone] Encounter Details Date Type Department Care Team (Late st Contact Info) Description 01/01/2022 Transcribed Document [facility] [place] [address] [place] [address] ProviderJailyn MD [address] [place] [address] Social History Tobacco Use Types [...] Historical Provider, - 01/01/2022 12:58 [place] [address] SARAH HU :1950 Visit Time:01/01/2022 What to [...] for follow-up date and appointment time Activity: [place] dressing. Do not remove. May shower with [...] MD-ORT When 01/14/2022 11:00 AM EDT Where: [address] [place] [address] [address] [place] [address]- Medications What How Much When Instructions Next Dose acetaminophen-oxyCODONE (Percocet 7.5/ 325 oral tablet) 1 Tablet(s) Oral Three Times A Day as needed for for pain Pickup at [facility] acetaminophen (Tylenol 325 mg oral tablet) 2 Tablet(s) Oral Every 4 Hours as needed for Pain (Mild 1-3) ergocalciferol (ergocalciferol 50 mcg (2000 intl units) oral capsule) 1 Capsule(s) Oral Every Day Duration: 14 Day(s) multivitamin (Multiple Vitamins oral tablet) 1 Tablet(s) Oral Every Day valACYclovir (Valtrex 1 g oral tablet) 1 Tablet(s) Oral Every Day Pharmacy Information [facility]: [address] [place] [address] [phone] Take your medications faithfully. Do NOT skip [...] these instructions at home: Medicines ??? Take xuxr-rit-vtcsiqg and prescription medicines as told by your [...] keep your urine pale yellow. ? Take dgdf-wig-ndjigbr or prescription medicines. ? Eat foods that [...] and water are not available, use hand anesthesia technician. ? Change your dressing as told by [...] safe to drive. General instructions ??? Take elrt-dam-vxdpneo and prescription medicines only as told by [...] provider. Document Revised: 08/06/2020 Document Reviewed: 08/06/2020 [employer] Patient Education ?? 2021 [employer] Laminectomy, Care After This sheet gives [...] these instructions at home: Medicines ??? Take cdof-rvj-zwtxnzg and prescription medicines only as told by [...] keep your urine pale yellow. ? Take eimi-xyn-ywcjams or prescription medicines. ? Eat foods that [...] and water are not available, use hand anesthesia technician. ? Change your dressing as told by [...] provider. Document Revised: 11/12/2019 Document Reviewed: 11/12/2019 [employer] Patient Education ?? 2021 [employer] Emergency Awareness and Preventative Care STROKE is [...] Assistance with quitting is available by contacting 4-306-YIBC-NOW. This is a free resource providing counseling, [...] was given the opportunity to ask questions. Patient/Tube Sizer And Cutter Operator Name: Patient/Tube Sizer And Cutter Operator Signature: Relationship to Patient: Clinician/Hospital Tube Sizer And Cutter Operator Signature: Date: documented in this encounter Plan of Treatment Not on file documented as of this encounter Visit Diagnoses Not on filedocumented in this encounter Care Teams Speech And Language Clinician Relationship Specialty Start Date End Date Eladio Lomas MD 1210 [facility] [address] [place], [place] [address] Medical Oncologist Hematology and Oncology 07/08/22 Breanna Crow PARebelC [address] [facility] [address] [place] [address] Physician Inductor Tester Oncology 07/08/22 documented as of this encounter
--- OUTSIDE RECORDS SUMMARY | 2024-11-29 09:54 | XMS_ITS | Encounter Summary ---
Author Organization [employer] ([place], [place], [place], [place]) Address [address] [place] [address] Care Team Providers Care Subsurface Augmentee Elint Operator Name Role Phone Eladio Lomas MD Unavailable Breanna Crow PA-C Unavailable [phone] Encounter Details Date Type Department Care Team (Late st Contact Info) Description 10/15/2021 Transcribed Document [facility] [place] Family Medicine [address] [place] [address] ProviderJailyn MD [address] [place] [address] Social History Tobacco Use Types [...] often do you attend chur ch or congregational services? Never 07/08/2022 Do you belong to [...] Date Ata rded Speak language other than Lithuanian at home Not on file 05/13/2023 Want [...] 10/15/2021 12:32 EDT Electronically signed by Huy [facility] Conversion Paramedic Instructor Cerner at 08/17/2022 6:13 PM CDT documented in this encounter Plan of Treatment Not on file documented as of this encounter Visit Diagnoses Not on filedocumented in this encounter Care Teams Subsurface Augmentee Elint Operator Relationship Specialty Start Date End Date Eladio Lomas MD 1210 [facility] [address] [place] [address] Medical Oncologist Hematology and Oncology 07/08/22 Breanna Crow PA-C [address] [facility] [address] [place] [address] Physician Diamond Blender Oncology 07/08/22 documented as of this encounter
--- OUTSIDE RECORDS SUMMARY | 2024-11-29 09:54 | XMS_ITS | Encounter Summary ---
Author Organization [email or web address] ([place], [place], [place], [place]) Address [address] [place] [address] Care Team Providers Care Grounds And Nursery Specialist Name Role Phone Eladio Lomas MD Unavailable Breanna Crow PA-C Unavailable [phone] Encounter Details Date Type Department Care Team (Late st Contact Info) Description 10/15/2021 Transcribed Document [facility] [place] Family Medicine [address] [place] [address] ProviderJailyn MD [address] [place] [address] Social History Tobacco Use Types [...] often do you attend chur ch or gnosticist services? Never 07/08/2022 Do you belong to [...] Date Ata rded Speak language other than Chilean at home Not on file 05/13/2023 Want [...] Health Plan: [employer] PPO Policy Number: [id number] Authorization Number: Insurance Primary Name : [employer] PPO [id number] Authorization Status-Primary : Pending Reference Number-Primary : [id number] Authorized Service Begin Date-Primary : 10/15/2021 EDT Historical Authorization Comments-Primary : Comment 1: [employer] PPO auth pending per Star note. (JUANITA HUGO, SHARYN-Utilization Review 10/15/2021 09:18) Natalie Lauren Rn-Utilization Review - 10/15/2021 9:29 EDT documented in this encounter Plan of Treatment Not on file documented as of this encounter Visit Diagnoses Not on filedocumented in this encounter Care Teams Grounds And Nursery Specialist Relationship Specialty Start Date End Date Eladio Lomas MD 12[address] [facility] [address], [place] [address] Medical Oncologist Hematology and Oncology 07/08/22 Breanna Crow, PARebelC [address] [place] [address] [address] [place] [address] Physician Exposure Machine Operator Oncology 07/08/22 documented as of this encounter
--- OUTSIDE RECORDS SUMMARY | 2024-11-29 09:54 | XMS_ITS | Encounter Summary ---
Author Organization [facility] Address [address] [place] [address] Care Team Providers Care Inspector Bicycle Name Role Phone Per Patient, None Primary Care Provider Unavaila ble Encounter Details Date Type Department Care Team (Late st Contact Info) Description 01/07/2021 Orders Only [facility] [address] [place] [address] Maurisio Aguilar MD [address] [address] Social History Tobacco Use Types [...] External WBC 6.9 3.8 - 10.8 K/uL [facility] External Red Blood Cell (RBC) 5.24 4.20 - 5.80 M/uL [facility] External Hemoglobin 15.5 14.0 - 18.0 G/DL [facility] External Hematocrit 44.1 40.0 - 52.0 % [facility] External MCV 84 80 - 100 fL [facility] External MCH 30 26 - 35 PG [facility] External MCHC 35 32 - 36 G/DL [facility] External RDW 13.5 11.0 - 15.0 % [facility] External Mean Platelet Volume 7.6 6.2 - 10.5 fL [facility] External Platelets 162 130 - 400 K/uL [facility] External Neutrophil# 3.0 1.6 - 8.4 K/uL [facility] External Lymphocyte# 3.2 0.4 - 5.1 K/uL [facility] External Absolute Monocyte (Abs [place]) 0.4 0.0 - 1.2 K/uL [facility] External Eosinophils# 0.1 0.0 - 0.8 K/uL [facility] External Baso# 0.0 0.0 - 0.3 K/uL [facility] External Neutrophils % 43.0 42.0 - 78.0 % [facility] External Lymphocyte % 46.0 11.0 - 47.0 % [facility] External Monocyte % 6.0 0.0 - 11.0 % [facility] External Eosinophil% 1.0 0.0 - 7.0 % [facility] External Basophil % 0.0 0.0 - 3.0 % [facility] External Nucleated RBC%-Auto 0.2 0.0 - 0.9 % [facility] External Nucleated RBC Absolute 0.01 Not Estab. K/uL [facility] 01/07/2021 10:0 5 AM EDT 01/07/2021 10:20 AM EDT us Maurisio Aguilar MD LAB BLOOD ORDERABLES Final Res ult Performing Organization Address City/State/[facility] Co de Phone Number [facility] [address] [phone], documented in this encounter Visit Diagnoses Not on filedocumented in this encounter Care Teams Inspector Bicycle Relationship Specialty Start Date End Date Per Patient, [place] [address] PCP - General 05/02/20 documented as of this encounter
--- OUTSIDE RECORDS SUMMARY | 2024-11-29 09:54 | XMS_ITS | Encounter Summary ---
Author Organization [employer] ([place], [place], [place], [place]) Address [address] [place] [address] Care Team Providers Care Carton Repairer Name Role Phone Eladio Lomas MD Unavailable Breanna Crow PA-C Unavailable [phone] Encounter Details Date Type Department Care Team (Late st Contact Info) Description 10/15/2021 Transcribed Document [facility] [address] [place] [address] ProviderJailyn MD [address] [place] [address] Social History Tobacco Use Types [...] Health Plan: [employer] CHOICE PPO Policy Number: [id number] Authorization Number: Insurance Primary Name : [employer] CHOICE PPO [id number] Authorization Status-Primary : Pending Reference Number-Primary : [id number] Authorized Service Begin Date-Primary : 10/15/2021 EDT Authorization Comments-Primary : [employer] CHOICE PPO auth pending per Star note. Historical Authorization Comments-Primary : No Authorization Comments Found JUANITA HUGO RN-Utilization Review - 10/15/2021 9:18 EDT documented in this encounter Plan of Treatment Not on file documented as of this encounter Visit Diagnoses Not on filedocumented in this encounter Care Teams Carton Repairer Relationship Specialty Start Date End Date Eladio Lomas MD [address] [facility] [address], [place] [address] Medical Oncologist Hematology and Oncology 07/08/22 Breanna Crow PACecilia [address] [facility] [address] [place] [address] Physician Web Software Engineer Oncology 07/08/22 documented as of this encounter
--- OUTSIDE RECORDS SUMMARY | 2024-11-29 09:54 | XMS_ITS | Encounter Summary ---
Author Organization [employer] ([place], [place], [place], [place]) Address [address] [place] [address] Care Team Providers Care Wireless Engineer Name Role Phone Eladio Lomas MD Unavailable Breanna Crow PA-C Unavailable [phone] Encounter Details Date Type Department Care Team (Late st Contact Info) Description 01/01/2022 Transcribed Document [facility] [place] [address] [place] [address] ProviderJailyn MD [address] [place] [address] Social History Tobacco Use [...] Date Ata rded Speak language other than Finnish at home Not on file 05/13/2023 Want [...] Historical Provider, - 01/01/2022 12:58 [place] [address] SARAH HU :1950 Visit Time:01/01/2022 What to [...] for follow-up date and appointment time Activity: [place] dressing. Do not remove. May shower with [...] When 01/14/2022 11:00 AM EDT Where: [address] [place] [address] [address] [place] [address]- Medications What How Much When Instructions Next [...] [facility] [address] [place] [address] [phone] Take your medications faithfully. Do NOT skip [...] these instructions at home: Medicines ??? Take sgky-gfh-iurlnab and prescription medicines as told by your [...] keep your urine pale yellow. ? Take ybxq-qtw-frzhbnx or prescription medicines. ? Eat foods that [...] and water are not available, use hand delta system freight car cleaner. ? Change your dressing as told by [...] safe to drive. General instructions ??? Take auoa-ofb-ljiyzyd and prescription medicines only as told by [...] provider. Document Revised: 08/06/2020 Document Reviewed: 08/06/2020 [employer] Patient Education ?? 2021 [employer] Laminectomy, Care After This sheet gives [...] these instructions at home: Medicines ??? Take lbes-svy-dlbhmme and prescription medicines only as told by [...] keep your urine pale yellow. ? Take tzio-pag-utpnwya or prescription medicines. ? Eat foods that [...] and water are not available, use hand delta system freight car cleaner. ? Change your dressing as told by [...] provider. Document Revised: 11/12/2019 Document Reviewed: 11/12/2019 [employer] Patient Education ?? 2021 [employer]. Emergency Awareness and Preventative Care STROKE is [...] Assistance with quitting is available by contacting 5-610-OAHT-NOW. This is a free resource providing counseling, [...] was given the opportunity to ask questions. Patient/Paste Up Worker Name: Patient/Paste Up Worker Signature: Relationship to Patient: Clinician/Hospital Paste Up Worker Signature: Date: documented in this encounter Plan of Treatment Not on file documented as of this encounter Visit Diagnoses Not on filedocumented in this encounter Care Teams Wireless Engineer Relationship Specialty Start Date End Date Eladio Lomas MD [address] [facility] [address] [place], [place] [id number] Medical Oncologist Hematology and Oncology 07/08/22 Breanna Crow PARebelC [address] [facility] [address] [place] [address] Physician Breeding Manager Oncology 07/08/22 documented as of this encounter
--- OUTSIDE RECORDS SUMMARY | 2024-11-29 09:54 | XMS_ITS | Encounter Summary ---
Author Organization [employer] ([place], [place], [place], [place]) Address [address] [place] [address] Care Team Providers Care Ironworker Apprentice Shop Name Role Phone Eladio Lomas MD Unavailable Breanna Crow PA-C Unavailable [phone] Encounter Details Date Type Department Care Team (Late st Contact Info) Description 10/14/[address] [facility] [place] [address] [place] [address] ProviderJailyn MD [address] [place] [address] Social History Tobacco Use Types [...] Temperature : Warm Skin Description : Dry, [place] FLORA SOUZA RN - 10/15/2021 1:37 EDT ED General-Functional Assess Information Obtained From : Patient Communication Barrier : None Primary Language : Albanian Any Spiritual/Cultural Needs or Requests : No [...] FLORA SOUZA RN - 10/15/2021 1:37 EDT [place] Coma Dejuan Best Motor Response : Obey commands Dejuan Best Verbal Response : Oriented [place] Eye Opening Response : Spontaneous [place] Coma Score : 15 FLORA SOUZA RN - 10/15/2021 1:37 EDT documented in this encounter Plan of Treatment Not on file documented as of this encounter Visit Diagnoses Not on filedocumented in this encounter Care Teams Ironworker Apprentice Shop Relationship Specialty Start Date End Date Eladio Lomas MD 1210 [facility] [address] [place] [address] Medical Oncologist Hematology and Oncology 07/08/22 Breanna Crow PA-C [address] [facility] [address] [place] [address] Physician Account Contact Associate Oncology 07/08/22 documented as of this encounter
--- OUTSIDE RECORDS SUMMARY | 2024-11-29 09:54 | XMS_ITS | Clinical Summary ---
[facility] Organization [facility] Address [address] [place] [address] Care Team Providers Care Mattress Finisher Name Role Phone Provider, No Known Primary [...] 02/05/2021, , 01/17/2020, Additional history exists Insurance [facility] MEDICARE ADVANTAGE Care Teams Mattress Finisher Relationship Specialty Start Date End Date Provider, No Known [facility] [place] [address] PCP - General 10/07/21
--- OUTSIDE RECORDS SUMMARY | 2024-11-29 09:54 | XMS_ITS | Clinical Summary ---
Author Organization [employer] ([place], [place], [place], [place]) Address [address] [place] [address] Care Team Providers Care Tracer Powder Blender Name Role Phone Eladio Lomas MD Unavailable Breanna Crow PA-C Unavailable [phone] Allergies Active Allergy Reactions Criticality Noted [...] exists Pneumococcal 50+ years Completed 02/09/2022 Insurance [employer] MEDICARE PPO HUMANA MEDICARE PPO Care Teams Tracer Powder Blender Relationship Specialty Start Date End Date Eladio Lomas MD 1210 [facility] [address] [place] [address] Medical Oncologist Hematology and Oncology 07/08/22 Breanna Crow PARebelC 34[address] [facility] [address] [place] [address] Physician Product Mgmt Dev Manager Oncology 07/08/22
--- OUTSIDE RECORDS SUMMARY | 2024-11-29 09:54 | XMS_ITS | Encounter Summary ---
Author Organization [employer] ([place], [place], [place], [place]) Address [address] [place] [address] Care Team Providers Care Brush Worker Name Role Phone Eladio Lomas MD Unavailable Breanna Crow PA-C Unavailable [phone] Encounter Details Date Type Department Care Team (Late st Contact Info) Description 01/01/2022 Transcribed Document [facility] [place] [address] [place] [address] ProviderJailyn MD [address] [place] [address] Social History Tobacco Use Types [...] Historical Provider, - 01/01/2022 1:04 [place] [address] SARAH HU :1950 Visit Time:01/01/2022 What to [...] for follow-up date and appointment time Activity: [place] dressing. Do not remove. May shower with [...] MD-ORT When 01/14/2022 11:00 AM EDT Where: [address] [place] [address] [address] [place] [address]- Medications What How Much When Instructions Next [...] Pharmacy Information [facility]: [address] [place] [address] [phone] Take your medications faithfully. Do NOT skip [...] these instructions at home: Medicines ??? Take xlhz-nce-sfymtfe and prescription medicines as told by your [...] keep your urine pale yellow. ? Take osgy-vpg-opxnuey or prescription medicines. ? Eat foods that [...] and water are not available, use hand disability rater. ? Change your dressing as told by [...] safe to drive. General instructions ??? Take blnc-cgc-wvbwlqj and prescription medicines only as told by [...] provider. Document Revised: 08/06/2020 Document Reviewed: 08/06/2020 [employer] Patient Education ?? 2021 [employer] Laminectomy, Care After This sheet gives [...] these instructions at home: Medicines ??? Take leac-cji-ixuhvoq and prescription medicines only as told by [...] keep your urine pale yellow. ? Take ctry-dlt-mjgltoi or prescription medicines. ? Eat foods that [...] and water are not available, use hand disability rater. ? Change your dressing as told by [...] provider. Document Revised: 11/12/2019 Document Reviewed: 11/12/2019 [employer] Patient Education ?? 2021 [employer]. Emergency Awareness and Preventative Care STROKE is [...] Assistance with quitting is available by contacting 0-477-GTHE-NOW. This is a free resource providing counseling, [...] was given the opportunity to ask questions. Patient/Dialysis Biomed Technician Name: Patient/Dialysis Biomed Technician Signature: Relationship to Patient: Clinician/Hospital Dialysis Biomed Technician Signature: Date: documented in this encounter Plan of Treatment Not on file documented as of this encounter Visit Diagnoses Not on filedocumented in this encounter Care Teams Brush Worker Relationship Specialty Start Date End Date Eladio Lomas MD 1210 [facility] [address] [place], [place] [id number] Medical Oncologist Hematology and Oncology 07/08/22 Breanna Crow PARebelC 34[address] [facility] [address] [place] [address] Physician Emt Intermediate Oncology 07/08/22 documented as of this encounter
--- OUTSIDE RECORDS SUMMARY | 2024-11-29 09:54 | XMS_ITS | Encounter Summary ---
Author Organization [employer] ([place], [place], [place], [place]) Address [address] [place] [address] Care Team Providers Care Insurance Underwriting Assistant Name Role Phone Eladio Lomas MD Unavailable Breanna Crow PA-C Unavailable [phone] Encounter Details Date Type Department Care Team (Late st Contact Info) Description 10/15/2021 Transcribed Document [facility] [place] Medicine [address] [place] [address] ProviderJailyn MD [address] [place] [address] Social History Tobacco Use Types [...] - 10/15/2021 4:49 EDT Electronically signed by [facility] Conversion Casting Room Operator Cerner at 08/17/2022 6:13 PM CDT documented in this encounter Plan of Treatment Not on file documented as of this encounter Visit Diagnoses Not on filedocumented in this encounter Care Teams Insurance Underwriting Assistant Relationship Specialty Start Date End Date lEadio Lomas MD [address] [address] Medical Oncologist Hematology and Oncology 07/08/22 Breanna Crow PACecilia [address] [facility] [address] [place] [address] Physician Healthcare Financial Analyst Oncology 07/08/22 documented as of this encounter
--- OUTSIDE RECORDS SUMMARY | 2024-11-29 09:54 | XMS_ITS | Encounter Summary ---
Author Organization [employer] ([place], [place], [place], [place]) Address [address] [place] [address] Care Team Providers Care Merchandiser Retail Representative Name Role Phone Eladio Lomas MD Unavailable Breanna Crow PA-C Unavailable [phone] Encounter Details Date Type Department Care Team (Late st Contact Info) Description 10/15/2021 Transcribed Document [facility] [place] Family Medicine [address] [place] [address] ProviderJailyn MD [address] [place] [address] Social History Tobacco Use Types [...] Date Ata rded Speak language other than Mozambican at home Not on file 05/13/2023 Want [...] CRYSTAL ROBERTS OTR/Mikal - 10/17/2021 12:09 EDT Cooker Operator Goals, OT Other LTG Grid Goal #1 [...] AFO and shoe, with verbal cues and trgj-jk-jkvl instructions on how to perform, due to [...] on filedocumented in this encounter Care Teams Merchandiser Retail Representative Relationship Specialty Start Date End Date Eladio Lomas MD 1210 [facility] [address] [place] [address] Medical Oncologist Hematology and Oncology 07/08/22 Breanna Crow PA-C [address] [place], [place] [id number] Physician Material Man Oncology 07/08/22 documented as of this encounter
--- OUTSIDE RECORDS SUMMARY | 2024-11-29 09:54 | XMS_ITS | Encounter Summary ---
Author Organization [employer] ([place], [place], [place], [place]) Address [address] [place] [address] Care Team Providers Care Raw Shellfish Preparer Name Role Phone Eladio Lomas MD Unavailable Breanna Crow PA-C Unavailable [phone] Encounter Details Date Type Department Care Team (Late st Contact Info) Description 01/01/2022 Transcribed Document [facility] [place] Family Medicine [address] [place] [address] ProviderJailyn MD [address] [place] [address] Social History Tobacco Use Types [...] Historical Provider, - 01/01/2022 12:59 [place] [address] SARAH HU :1950 Visit Time:01/01/2022 What to [...] for follow-up date and appointment time Activity: [place] dressing. Do not remove. May shower with [...] MD-ORT When 01/14/2022 11:00 AM EDT Where: [address] [place] [address] [address] [place] [address]- Medications What How Much When Instructions Next [...] [facility] Pharm: [address] [place] [address] [phone] Take your medications faithfully. Do NOT skip [...] these instructions at home: Medicines ??? Take cgqf-ezb-xbchnyq and prescription medicines as told by your [...] keep your urine pale yellow. ? Take mtav-mbp-qkfnzyj or prescription medicines. ? Eat foods that [...] and water are not available, use hand aviation electrician. ? Change your dressing as told by [...] safe to drive. General instructions ??? Take czgg-ipn-ozayzrm and prescription medicines only as told by [...] Document Revised: 08/06/2020 Document Reviewed: 08/06/2020 [employer] Patient Education ?? 2021 [employer] Laminectomy, Care After This sheet gives [...] these instructions at home: Medicines ??? Take naoh-dhj-gheqloj and prescription medicines only as told by [...] keep your urine pale yellow. ? Take gqbl-zah-jyrakkr or prescription medicines. ? Eat foods that [...] and water are not available, use hand aviation electrician. ? Change your dressing as told by [...] Document Revised: 11/12/2019 Document Reviewed: 11/12/2019 [employer] Patient Education ?? 2021 [employer]. Emergency Awareness and Preventative Care STROKE is [...] Assistance with quitting is available by contacting 7-692-IOUJ-NOW. This is a free resource providing counseling, [...] was given the opportunity to ask questions. Patient/Go Cart Mechanic Name: Patient/Go Cart Mechanic Signature: Relationship to Patient: Clinician/Hospital Go Cart Mechanic Signature: Date: documented in this encounter Plan of Treatment Not on file documented as of this encounter Visit Diagnoses Not on filedocumented in this encounter Care Teams Raw Shellfish Preparer Relationship Specialty Start Date End Date Eladio Lomas MD 1210 [facility] [address] [place], [place] [id number] Medical Oncologist Hematology and Oncology 07/08/22 Breanna Crow PARebelC [address] [facility] [address] [place] [address] Physician Shoes Hand Sewer Oncology 07/08/22 documented as of this encounter
--- OUTSIDE RECORDS SUMMARY | 2024-11-29 09:54 | XMS_ITS | Encounter Summary ---
Author Organization [employer] ([place], [place], [place], [place]) Address [address] [place] [address] Care Team Providers Care Game Engineer Name Role Phone Eladio Lomas MD Unavailable Breanna Crow PA-C Unavailable [phone] Encounter Details Date Type Department Care Team (Late st Contact Info) Description 01/01/2022 Transcribed Document [facility] [place] [address] [place] [address] ProviderJailyn MD [address] [place] [address] Social History Tobacco Use Types [...] these instructions at home: Medicines ??? Take cajz-mff-fmqqklq and prescription medicines as told by your [...] keep your urine pale yellow. ? Take keax-uzj-ziyyxsg or prescription medicines. ? Eat foods that [...] and water are not available, use hand system software programmer. ? Change your dressing as told by [...] safe to drive. General instructions ??? Take sshn-tbm-fdedvcd and prescription medicines only as told by [...] provider. Document Revised: 08/06/2020 Document Reviewed: 08/06/2020 [employer] Patient Education ? 2021 [employer] Laminectomy, Care After This sheet gives [...] these instructions at home: Medicines ??? Take prxj-lhq-vawrthg and prescription medicines only as told by [...] keep your urine pale yellow. ? Take jyhb-fxu-dvbudut or prescription medicines. ? Eat foods that [...] and water are not available, use hand system software programmer. ? Change your dressing as told by [...] provider. Document Revised: 11/12/2019 Document Reviewed: 11/12/2019 [employer] Patient Education ? 2021 [employer]. documented in this encounter Plan of Treatment Not on file documented as of this encounter Visit Diagnoses Not on filedocumented in this encounter Care Teams Game Engineer Relationship Specialty Start Date End Date Eladio Lomas MD 1210 [facility] [address] [place] [id number] Medical Oncologist Hematology and Oncology 07/08/22 Breanna Crow PA-C [address] [place] [address] Physician Motion Picture Set Worker Oncology 07/08/22 documented as of this encounter
--- OUTSIDE RECORDS SUMMARY | 2024-11-29 09:54 | XMS_ITS | Encounter Summary ---
Author Organization [facility] Address [address] [place] [address] Care Team Providers Care Manager Copy Name Role Phone Per Patient, None Primary Care Provider Unavaila ble Encounter Details Date Type Department Care Team (Late st Contact Info) Description 01/07/2021 Orders Only [facility] [address] [place] [address] Maurisio Aguilar MD [address] [address] Social History Tobacco Use Types [...] 0.0 0.0 - 7.0 % [facility] External Atypical Lymph% 4(H) 0 - 1 % [facility] External Metamyelocyte % 0 0 - 1 % [facility] External Myelocyte % 0 0 - 1 % [facility] External Promyelocyte% 0 % [facility] External Blast% 0 % [facility] External Nucleated RBC%-Manual 0 /100 WBC [facility] External Smudge Cells 0 [facility] External Platelet Morphology NORMAL [facility] External Ovalocytes SLIGHT(A) [facility] External Tear Drop Cells SLIGHT(A) [facility] 01/07/2021 10:0 5 AM EDT 01/07/2021 10:20 AM EDT us Maurisio Aguilar MD LAB BLOOD ORDERABLES Final Res ult Performing Organization Address City/State/[facility] Co de Phone Number [facility] [address] [place] [address], documented in this encounter Visit Diagnoses Not on filedocumented in this encounter Care Teams Manager Copy Relationship Specialty Start Date End Date Per Patient, [place] [id number] PCP - General 05/02/20 documented as of this encounter
--- OUTSIDE RECORDS SUMMARY | 2024-11-29 09:54 | XMS_ITS | Encounter Summary ---
Author Organization [employer] ([place], [place], [place], [place]) Address [address] [place] [address] Care Team Providers Care Roller Inspector And Mender Name Role Phone Eladio Lomas MD Unavailable Breanna Crow PA-C Unavailable [phone] Encounter Details Date Type Department Care Team (Late st Contact Info) Description 10/15/2021 Transcribed Document [facility] [place] [address] [place] [address] ProviderJailyn MD [address] [place] [address] Social History Tobacco Use Types [...] Date Ata rded Speak language other than Solomon Islander at home Not on file 05/13/2023 [...] - Medical Enoxaparin 40 mg, SubCutaneous, Inj, [id number], Routine, Start 10/15/21 7:00:00 EDT, 10/15/21 6:07:00 [...] ALYC # 4 K/uL 10/15/2021 00:19 EDT [place] Percent Man 19 % (High) 10/15/2021 00:19 [...] Continuous Order Electronically signed by Interface, [facility] Conversion Sports Cartoonist Cerner at 08/17/2022 5:58 PM CDT documented in this encounter Plan of Treatment Not on file documented as of this encounter Visit Diagnoses Not on filedocumented in this encounter Care Teams Roller Inspector And Mender Relationship Specialty Start Date End Date Eladio Lomas MD 1210 [facility] [address] [place] [address] Medical Oncologist Hematology and Oncology 07/08/22 Breanna Crow PARebelC [address] [facility] [address] [place] [address] Physician Splash Line Operator Oncology 07/08/22 documented as of this encounter
--- OUTSIDE RECORDS SUMMARY | 2024-11-29 09:54 | XMS_ITS | Encounter Summary ---
Author Organization [employer] ([place], [place], [place], [place]) Address [address] [place] [address] Care Team Providers Care Lobbyist Name Role Phone Eladio Lomas MD Unavailable Breanna Crow PA-C Unavailable [phone] Encounter Details Date Type Department Care Team (Late st Contact Info) Description 10/15/2021 Transcribed Document [facility] [place] [address] [place] [address] ProviderJailyn MD [address] [place] [address] Social History Tobacco Use Types [...] Date Ata rded Speak language other than Tanzanian at home Not on file 05/13/2023 Want [...] on filedocumented in this encounter Care Teams Lobbyist Relationship Specialty Start Date End Date Eladio Lomas MD 1210 [facility] [address], [place] [address] Medical Oncologist Hematology and Oncology 07/08/22 Breanna Crow, PA-C [address] [facility] [address] [place] [address] Physician Literacy Education Professor Oncology 07/08/22 documented as of this encounter
--- OUTSIDE RECORDS SUMMARY | 2024-11-29 09:54 | XMS_ITS | Encounter Summary ---
Author Organization [employer] ([place], [place], [place], [place]) Address [address] [place] [address] Care Team Providers Care Grain Processor Name Role Phone Eladio Lomas MD Unavailable Breanna Crow PA-C Unavailable [phone] Encounter Details Date Type Department Care Team (Late st Contact Info) Description 10/14/2021 Transcribed Document [facility] [place] [address] [place] [address] ProviderJailyn MD [address] [place], [...] any clubs o r organizations such as anglican groups, unions, fraternal or athletic groups, or [...] Date Ata rded Speak language other than Tristanian at home Not on file 05/13/2023 Want [...] Historical Provider, - 10/14/2021 6:20 PM CDT [place] Suicide Severity Rating Scale (C-SSRS) Entered On: 10/14/2021 18:34 EDT Performed On: 10/14/2021 18:33 EDT by UGO FAN, RN [place] Suicide Severity Rating Scale (C-SSRS) CSSRS Past Month Wish to be : No CSSRS Past Month Suicidal Thoughts : No CSSRS Lifetime Suicide Behavior : No Suicide Severity Rating Score : 0 Suicide Severity Rating : No Additional Care Required at this time Thoughts of Harming/Killing Others : No UGO FAN RN - 10/14/2021 18:33 EDT Electronically signed by Huy [facility] Conversion Iron Melter Cerner at 08/17/2022 5:56 PM CDT documented in this encounter Plan of Treatment Not on file documented as of this encounter Visit Diagnoses Not on filedocumented in this encounter Care Teams Grain Processor Relationship Specialty Start Date End Date Eladio Lomas MD [address] [facility] [place] [address] Medical Oncologist Hematology and Oncology 07/08/22 Breanna Crow, PARebelC [address] [place] [address] Physician Patient Sitter Oncology 07/08/22 documented as of this encounter
--- OUTSIDE RECORDS SUMMARY | 2024-11-29 09:54 | XMS_ITS | Encounter Summary ---
Author Organization [employer] ([place], [place], [place], [place]) Address [address] [place] [address] Care Team Providers Care Contact Center Consultant Name Role Phone Eladio Lomas MD Unavailable Breanna Crow PA-C Unavailable [phone] Encounter Details Date Type Department Care Team (Late st Contact Info) Description 10/15/2021 Transcribed Document [facility] [place] [address] [place] [address] ProviderJailyn MD [address] [place] [address] Social History Tobacco Use Types [...] on filedocumented in this encounter Care Teams Contact Center Consultant Relationship Specialty Start Date End Date Eladio Lomas MD 1210 [facility] [address] [place] [address] Medical Oncologist Hematology and Oncology 07/08/22 Breanna Crow PA-C [address] [address] Physician Aperture Mask Etcher Oncology 07/08/22 documented as of this encounter
--- OUTSIDE RECORDS SUMMARY | 2024-11-29 09:54 | XMS_ITS | Encounter Summary ---
Author Organization [facility] ([place], [place], [place], [place]) Address [address] [place] [address] Care Team Providers Care Bolt Labeler Name Role Phone Eladio Lomas MD Unavailable Breanna Crow PA-C Unavailable [phone] Encounter Details Date Type Department Care Team (Late st Contact Info) Description 10/15/2021 Transcribed Document [facility] [place] [address] [place] [address] ProviderJailyn MD [address] [place] [address] Social History Tobacco Use Types [...] Date Ata rded Speak language other than Lebanese at home Not on file 05/13/2023 Want [...] 71 y/o male who was admitted to [facility]21 with RLE weakness and paresthesia. [...] ROM : WFL Left UE Strength : [facility] SOFÍA CROFT PHYSICAL THERAPIST NON-EXEMPT - 10/17/2021 10:13 EDT Lower Extremity RLE Active ROM : WFL Right LE Strength : Impaired LLE Active ROM : WFL Left LE Strength : OSFÍA DENNIS PHYSICAL THERAPIST NON-EXEMPT - 10/17/2021 10:13 [...] PHYSICAL THERAPIST NON-EXEMPT - 10/17/2021 10:13 EDT Dietician Goals Transfer LTG Grid Goal #1 Destination [...] on filedocumented in this encounter Care Teams Bolt Labeler Relationship Specialty Start Date End Date Eladio Lomas MD 12[address] [facility] [address] [place] [address] Medical Oncologist Hematology and Oncology 07/08/22 Breanna Crow, PACecilia [address] [facility] [address] [place] [address] Physician Teachers Assistant Oncology 07/08/22 documented as of this encounter
--- OUTSIDE RECORDS SUMMARY | 2024-11-29 09:54 | XMS_ITS | Encounter Summary ---
Author Organization [employer] ([place], [place], [place], [place]) Address [address] [place] [address] Care Team Providers Care Electronic Equipment Installer Name Role Phone Eladio Lomas MD Unavailable Breanna Crow PA-C Unavailable [phone] Encounter Details Date Type Department Care Team (Late st Contact Info) Description 10/15/2021 Transcribed Document [facility] [place] Family Medicine [address] [place] [address] ProviderJailyn MD [address] [place] [address] Social History Tobacco Use Types [...] 10/15/2021 9:30 EDT Electronically signed by Huy [facility] Conversion Merchandise Presentation Associate Cerner at 08/17/2022 6:01 PM CDT documented in this encounter Plan of Treatment Not on file documented as of this encounter Visit Diagnoses Not on filedocumented in this encounter Care Teams Electronic Equipment Installer Relationship Specialty Start Date End Date Eladio Lomas MD 12[address] [facility] [address] [place] [address] Medical Oncologist Hematology and Oncology 07/08/22 Breanna Crow PA-C [address] [facility] [address] [place] [address] Physician Weaving Machine Operator Oncology 07/08/22 documented as of this encounter
--- OUTSIDE RECORDS SUMMARY | 2024-11-29 09:54 | XMS_ITS | Clinical Summary ---
Author Organization [facility] Address [address] [facility] [address] [place] [address] Phone Care Team Providers Care Film Processing Supervisor Name Role Phone Godfrey ALFARO, José Miguel [facility] [ ] Conditions or Problems Problem Name Problem Code Onset Date Status Entry Date Provider Comment Standard Description Annotate Acute DVT of leg, right 780478483 (SNOMED CT) Active José Miguel Donahue MD Deep venous thrombosis of lower extremity Health advice, education, or counseling 861823660 (SNOMED CT) Active José Miguel Donahue MD Procedure carried out on subject PERSONAL HISTORY OF IMMUNOSUPPRES PILLO THERAPY 587776086 (SNOMED CT) 12/10 Active 12/10 José Miguel Donahue MD History of immunosuppressiv e therapy Foot drop, right 0370005 (SNOMED CT) 10/27 Active 10/27 José Miguel Donahue MD Foot-drop Benign Essential Hypertension 75553033 (SNOMED CT) 10/22 Active 10/22 Dorothy Juanpablo Benign hypertension Disseminated herpes zoster 84638887 (SNOMED CT) 10/22 Active 10/22 Dorothy Juanpablo Disseminated herpes zoster 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 10/22 Dorothy Juanpablo Leukemoid reaction Chronic lymphoid leukemia 14005004 (SNOMED CT) 10/22 Active 10/22 Dorothy Juanpablo Chronic lymphoid leukemia, disease Medications Medication Instructions Start Date Stop Date Generic Name [facility] Provider ELIQUIS 5 MG TABS twice a day apixaban 35728594062 Tonia Noland VALTREX 1 GM TABS Take 1 tablet by mouth once a day valacyclovir 68702654175 José Miguel Donahue MD ALLOPURINOL 300 MG TABS 1 tablet by mouth once a day allopurinol 25568321470 Suzanne Cope ELIQUIS 5 MG TABS 2 tablet by mouth twice a day apixaban 99552366722 Suzanne Cope PREDNISONE 10 MG TABS Take as directed prednisone 38452957542 Suzanne Cope VALTREX 500 MG TABS 2 tablet by mouth once a day valacyclovir 86029963069 Faby Donahue VALTREX 1 GM TABS Take 1 tablet by mouth once a day valacyclovir 46134054626 Faby Doanhue ALLOPURINOL 300 MG TABS 1 tablet by mouth once a day allopurinol 39553969205 Marianayvette Wiggins ELIQUIS 5 MG TABS 2 tablet by mouth twice a day apixaban 10521067256 Marianayvette Wiggins Lactobacillus acidophilus 1 billion cell capsule 1 capsule by mouth twice a day lactobacillus acidophilus Mariana Wiggins MULTI-VITAMINS TABS multivitamin 20063278437 Mariana Wiggins PREDNISONE 10 MG TABS Take as directed prednisone 56206810187 Mariana Wiggins TYLENOL 325 MG TABS 2 tablet by mouth every four hours as needed acetaminophen 71891084703 Mariana Wiggins VALTREX 500 MG TABS 2 tablet by mouth once a day valacyclovir 88018170989 Mariana Rosalie Medications Administered No information available. [...] Labs CPT-sl STAT Labs CPT-sl STAT Labs CPT-[id number] CMP [id number] CBC with Differential 2021 Vital Signs Date [...]
--- OUTSIDE RECORDS SUMMARY | 2024-11-29 09:54 | XMS_ITS | Encounter Summary ---
Author Organization [employer] ([place], [place], [place], [place]) Address [address] [place] [address] Care Team Providers Care Technical Service Specialist Name Role Phone Eladio Lomas MD Unavailable Breanna Crow PA-C Unavailable [phone] Encounter Details Date Type Department Care Team (Late st Contact Info) Description 10/15/2021 Transcribed Document [facility] [place] Family Medicine [address] [place] [address] ProviderJailyn MD [address] [place] [address] Social History Tobacco Use Types [...] Date Ata rded Speak language other than [place] Islander at home Not on file 05/13/2023 [...] & time 10/15/2021 00:00:00, Voice recognition / merchandise distributor technology used for some documentation in this [...] CATH WINJX HRT ART& L VENTR IMG ([id number]).. Family history: Not significant. Social history: Social [...] EDT Height Source Stated Height Entry Format [place] Height/Length, SCOTTISH (ft) 5 ft Height/Length SCOTTISH 6 Inch CLINICALHEIGHT 167.64 cm [place] Body Weight 62.88 kg Weight Source, ED Critical estimated dosing weight Weight Entry Format [place] Weight [place] Islander lb 180 lb CLINICALWEIGHT 81.82 kg Body [...] Triage: ED C-SSRS: ED Clinical Reconciliation: ED sorter laundry articles: ESR Sedimentation Rate Auto: Saline Lock Insert: [...] SEX: 1950 / Male MRN / ACC#: [id number] / [id number] ORDERING PHYSICIAN: Matt Whitman. EXAM REQUESTED: [id number]--PB LUMBAR SPINE W/O CONTRAST FACILITY: [facility] DATE: 10/15/2021 RADIOLOGIST NAME: MD [...] understanding of instructions. Electronically signed by Huy [facility] Conversion Mechanics Handyman Cerner at 08/17/2022 6:02 PM CDT documented in this encounter Plan of Treatment Not on file documented as of this encounter Visit Diagnoses Not on filedocumented in this encounter Care Teams Technical Service Specialist Relationship Specialty Start Date End Date Eladio Lomas MD [address] [address] Medical Oncologist Hematology and Oncology 07/08/22 Breanna Crow, PA-C [address] [place] [address] [place] [address] Physician Bakery Clerk Oncology 07/08/22 documented as of this encounter
--- OUTSIDE RECORDS SUMMARY | 2024-11-29 09:54 | XMS_ITS | Referral Summary ---
Author Organization [employer] ([place], [place], [place], [place]) Address [address] [place] [address] Care Team Providers Care Obstetrician/Gynecologist Name Role Phone Eladio Lomas MD Unavailable Breanna Crow PA-C Unavailable [phone] Allergies Active Allergy Reactions Criticality Noted [...] Plan of Treatment [place] [address] [facility] MEDICARE PPO e-[employer] aeroplanes MEDICARE PPO Care Teams Obstetrician/Gynecologist Relationship Specialty Start Date End Date Eladio Lomas MD 1210 [facility] [address] [place] [address] Medical Oncologist Hematology and Oncology 07/08/22 Breanna Crow PA-C [address] [facility] [address] [place] [address] Physician Valve Mechanic Oncology 07/08/22
--- OUTSIDE RECORDS SUMMARY | 2024-11-29 09:54 | XMS_ITS | Encounter Summary ---
Author Organization [employer] ([place], [place], [place], [place]) Address [address] [place] [address] Care Team Providers Care Agency Recruiter Name Role Phone Eladio Lomas MD Unavailable Breanna Crow PA-C Unavailable [phone] Encounter Details Date Type Department Care Team (Late st Contact Info) Description 10/15/2021 Transcribed Document [facility] [place] Family Medicine [address] [place] [address] ProviderJailyn MD [address] [place] [address] Social History Tobacco Use Types [...] Date Ata rded Speak language other than Macedonian at home Not on file 05/13/2023 Want [...] Health Plan: [employer] PPO Policy Number: [id number] Authorization Number: Insurance Primary Name : [employer] PPO [id number] Authorization Status-Primary : Awaiting callback Reference Number-Primary : [id number] Authorized Service Begin Date-Primary : 10/15/2021 EDT Authorization Comments-Primary : Clinicals faxed via [facility] Historical Authorization Comments-Primary : Comment 1: [employer] PPO auth pending per Star note. (JUANITA HUGO, SHARYN-Utilization Review 10/15/2021 09:18) Natalie Lauren Rn-Utilization Review - 10/15/2021 9:30 EDT documented in this encounter Plan of Treatment Not on file documented as of this encounter Visit Diagnoses Not on filedocumented in this encounter Care Teams Agency Recruiter Relationship Specialty Start Date End Date Eladio Lomas MD 1210 [facility] [address] [place] [address] Medical Oncologist Hematology and Oncology 07/08/22 Breanna Crow PA-C [address] [place] [address] [address] [place] [address] Physician Manhole Builder Oncology 07/08/22 documented as of this encounter
--- OUTSIDE RECORDS SUMMARY | 2024-11-29 09:54 | XMS_ITS | Encounter Summary ---
Author Organization [employer] ([place], [place], [place], [place]) Address [address] [place] [address] Care Team Providers Care Photographic Plate Maker Name Role Phone Eladio Lomas MD Unavailable Breanna Crow PA-C Unavailable [phone] Encounter Details Date Type Department Care Team (Late st Contact Info) Description 10/15/2021 Transcribed Document [facility] [place] Family Medicine [address] [place] [address] ProviderJailyn MD [address] [place] [address] Social History Tobacco Use Types [...] often do you attend chur ch or adventist services? Never 07/08/2022 Do you belong to [...] Date Ata rded Speak language other than Ugandan at home Not on file 05/13/2023 Want [...] 4:48 EDT by Tessy Gramajo RN-PATIENT CARE [facility] NON-EXEMPT Advance Directive Patient has Advance Directive *Q : Yes, Advance Directive not with the patient Advance Directive Type : Living will Advance Directive Date : 11/28/2017 EDT Copy Advance Directive Verified/on Chart : No Tessy Gramajo RN-PATIENT CARE [facility] NON-EXEMPT - 10/15/2021 4:48 EDT Anesthesia/Transfusion History Family History of Anesthesia Reaction : No prior transfusion(s) Blood Transfusion Acceptable to Patient : Yes Transfusion History : Prior anesthesia without reaction Family History of Anesthesia Reaction : None Tessy Gramajo RN-PATIENT CARE [facility] NON-EXEMPT - 10/15/2021 4:48 EDT Anticipated Discharge Needs Discharge To, Anticipated : Home Anticipated Discharge Needs at This Time : None Tessy Gramajo RN-PATIENT CARE [facility] NON-EXEMPT - 10/15/2021 4:48 EDT Education [...] : Verbalizes understanding Tessy Gramajo RN-PATIENT CARE [facility] NON-EXEMPT - 10/15/2021 4:48 EDT Functional Assessment Living Situation : Home Patient Lives With : Spouse Persons Assisting Patient at Home : Spouse Current Daily Living Assistance : None Mobility Assistance Prior to Admission : Independent KOWALSKI Hx Falls Immediate/Within 3 Months : Yes Current Home Treatments : None Home Equipment : None Tessy Gramajo RN-PATIENT CARE [facility] NON-EXEMPT - 10/15/2021 4:48 EDT General [...] Obtained From : Patient Primary Language : Ugandan Communication Barrier : None Data Collector Needed : No Tessy Gramajo RN-PATIENT CARE [...] Level : 46 or > High Risk [place] Fall Interventions : Adequate lighting, Assistive devices [...] Source : Stated Height Entry Format : [place] Height, Feet : 5 ft(Converted to: 152 cm, 60 Inch) Height, Inches : 6 Inch(Converted to: 0 ft 6 Inch, 15.24 cm) Clinical Height : 167.64 cm Weight Source : Bed scale Weight Entry Format : [place] Clinical Dosing Weight : 59.69 kg Weight, Pounds : 131 lb Weight, Ounces : 5 oz Body Surface Area (BSA) : 1.67 m2 Body Mass Index : 21.2 kg/m2 [place] Body Weight : 63 kg Tessy Gramajo RN-PATIENT CARE [facility] NON-EXEMPT - 10/15/2021 4:48 EDT Infectious Disease History Does patient have symptoms of COVID-19? : No Tested for COVID19 in the past 14 days : No, Patient stated Does the Patient state known exposure to a COVID-19 positive case in the last 14 days? : No Patient Vaccinated for COVID-19 : Fully vaccinated Tessy Gramajo RN-PATIENT CARE [facility] NON-EXEMPT - 10/15/2021 4:48 EDT Infectious [...] day) : NO Tessy Gramajo RN-PATIENT CARE [facility] NON-EXEMPT - 10/15/2021 4:48 EDT Physical contact outside [place] in the last 30 days : No Hospitalized in Foreign Country : No Infectious Disease History : Chicken pox/Shingles, Measles INF Disease TB Screening Calc : 0 INF Disease Recent Travel Calc : 0 Tessy Gramajo RN-PATIENT CARE [facility] NON-EXEMPT - 10/15/2021 4:48 EDT Tetanus Immunization Status Previous Tetanus Immunizations : No qualifying data available. Tetanus Immunization : Greater than 5 years Tessy Gramajo RN-PATIENT CARE [facility] NON-EXEMPT - 10/15/2021 4:48 EDT Influenza Vaccine Asmt, Adult Previous Vaccines from Immunization Schedule : No qualifying data available. Influenza Immunization, Current Season : Yes Tessy Gramajo RN-PATIENT CARE [facility] NON-EXEMPT - 10/15/2021 4:48 EDT Pneumococcal Vaccine Previous Vaccines from Immunization Schedule : No qualifying data available. Pneumonia Immunization Received : Unknown Pneumococcal Risk Assessment < Age 65 : N/A- Patient 65 years of age or older Pneumococcal Vaccine Contraindications : No contraindications to pneumococcal vaccine Transplant Workup/Recent Transplant : No Order for Pneumococcal Vaccine : Declined Vaccination Tessy Gramajo RN-PATIENT CARE [facility] NON-EXEMPT - 10/15/2021 4:48 EDT Order Details Order Detail : N/A Patient Needs Meds Crushed/Liquid : No Tessy Gramajo RN-PATIENT CARE [facility] NON-EXEMPT - 10/15/2021 4:48 EDT Nutrition [...] Patient at risk Tessy Gramajo RN-PATIENT CARE [facility] NON-EXEMPT - 10/15/2021 4:48 EDT [place] Suicide Severity Rating Scale (C-SSRS) CSSRS Past Month Wish to be : No CSSRS Past Month Suicidal Thoughts : No CSSRS Lifetime Suicide Behavior : No Suicide Severity Rating Score : 0 Suicide Severity Rating : No Additional Care Required at this time Tessy Gramajo RN-PATIENT CARE [facility] NON-EXEMPT - 10/15/2021 4:48 EDT Psychosocial History Does Someone Depend on You for Care? : No Chronic/Terminal Illness w/Freq Visits : Yes Do You Have a History of the Following? : Patient denies history Currently in Unsafe Situation : No Do You Have a Support System? : Yes Tessy Gramajo RN-PATIENT CARE [facility] NON-EXEMPT - 10/15/2021 4:48 EDT Sleep [...] Score : 3 Tessy Gramajo RN-PATIENT CARE [facility] NON-EXEMPT - 10/15/2021 4:48 EDT Spiritual/Cultural Needs Any Spiritual/Cultural Needs or Requests : No Tessy Gramajo RN-PATIENT CARE [facility] NON-EXEMPT - 10/15/2021 4:48 EDT Valuables [...] on filedocumented in this encounter Care Teams Photographic Plate Maker Relationship Specialty Start Date End Date Eladio Lomas MD [address] [place] [address] Medical Oncologist Hematology and Oncology 07/08/22 Breanna Crow, PA-C [address] [place] [address] Physician Cutting Machine Tender Decorative Oncology 07/08/22 documented as of this encounter
--- OUTSIDE RECORDS SUMMARY | 2024-11-29 09:54 | XMS_ITS | Encounter Summary ---
Author Organization [email or web address] ([place], [place], [place], [place]) Address [address] [place] [address] Care Team Providers Care Labor Conciliator Name Role Phone Eladio Lomas MD Unavailable Breanna Crow PA-C Unavailable [phone] Encounter Details Date Type Department Care Team (Late st Contact Info) Description 10/15/2021 Transcribed Document [facility] [place] Family Medicine [address] [place] [address] ProviderJailyn MD [address] [place] [address] Social History Tobacco Use [...] 10/15/2021 6:53 EDT Electronically signed by Huy [facility] Conversion Instrument Lens Grinder Cerner at 08/17/2022 6:19 PM CDT documented in this encounter Plan of Treatment Not on file documented as of this encounter Visit Diagnoses Not on filedocumented in this encounter Care Teams Labor Conciliator Relationship Specialty Start Date End Date Eladio Lomas MD [address] [facility] [address], [place] [address] Medical Oncologist Hematology and Oncology 07/08/22 Breanna Crow PACecilia [address] [place] [address] [address] [place] [address] Physician Cyber Defense Forensics Analyst Oncology 07/08/22 documented as of this encounter
--- OUTSIDE RECORDS SUMMARY | 2024-11-29 09:54 | XMS_ITS | Encounter Summary ---
Author Organization [employer] ([place], [place], [place], [place]) Address [address] [place] [address] Care Team Providers Care Service Station Attendant Name Role Phone Eladio Lomas MD Unavailable Breanna Crow PA-C Unavailable [phone] Encounter Details Date Type Department Care Team (Late st Contact Info) Description 10/15/2021 Transcribed Document [facility] [place] Family Medicine [address] [place] [address] ProviderJailyn MD [address] [place] [address] Social History Tobacco Use Types [...] On: 10/15/2021 14:48 EDT by Miladys Carter, Critical Access Hospital Coord Phone Call for Consults Consult Reason : right L5 radiculopathy causing foot drop Physician Requesting Consult : ROMERO INGRAM MD-[place] Physician Requested for Consult : GARCIA WORKMAN MD-ORT Date and Time Call Returned : 10/15/2021 14:50 EDT Consult, Additional Information : Spoke with Dr. Workman in person concerning the consult. Miladys Carter, Critical Access Hospital Coord - 10/15/2021 14:50 EDT Electronically signed by [facility] Conversion Buyers' Agent Cerner at 08/17/2022 6:04 PM CDT documented in this encounter Plan of Treatment Not on file documented as of this encounter Visit Diagnoses Not on filedocumented in this encounter Care Teams Service Station Attendant Relationship Specialty Start Date End Date Eladio Lomas MD [address] [facility] [address], [place] [address] Medical Oncologist Hematology and Oncology 07/08/22 Breanna Crow PA-C [address] [facility] [address] [place] [address] Physician Tractor Sweeper Driver Oncology 07/08/22 documented as of this encounter
--- OUTSIDE RECORDS SUMMARY | 2024-11-29 09:54 | XMS_ITS | Encounter Summary ---
Author Organization [employer] ([place], [place], [place], [place]) Address [address] [place] [address] Care Team Providers Care Bucket Hooker Name Role Phone Eladio Lomas MD Unavailable Breanna Crow PA-C Unavailable [phone] Encounter Details Date Type Department Care Team (Late st Contact Info) Description 01/01/2022 Transcribed Document [facility] [place] [address] [place] [address] ProviderJailyn MD [address] [place] [address] Social History Tobacco Use Types [...] HU /Sex: 1950 Male Med Rec #: [id number] Physician: GARCIA WORKMAN MD-ORT Financial #: [id number] Pt. Type: O Room/Bed: [facility] Admit/Disch: 01/01/22 09:26:00 - Institution: [facility] OR PostOp Case Times Entry 1 In PACU II 01/01/22 12:41:00 Ready for PACU II 01/01/22 13:10:00 Discharge Discharge from PACU 01/01/22 13:20:00 II Last Modified By: DAYANA BALLARD, RN 01/01/22 13:28:32 [facility] PostOp Case Times Audit 01/01/22 13:28:32 Silvering Department Supervisor: [email or web address] Modifier: [email or web address] <+> 1 Ready for PACU II Discharge <+> 1 Discharge from PACU II Finalized By: DAYANA BALLARD, RN Document Signatures Signed By: DAYANA BALLARD, RN 01/01/22 13:28 Electronically signed by Huy [facility] Conversion Sticker Machine Operator Cerner at 08/17/2022 6:16 PM CDT documented in this encounter Plan of Treatment Not on file documented as of this encounter Visit Diagnoses Not on filedocumented in this encounter Care Teams Bucket Hooker Relationship Specialty Start Date End Date Eladio Lomas MD 1210 [facility] [address] [address] Medical Oncologist Hematology and Oncology 07/08/22 Breanna Crow PA-C 0420 [facility] [address] [place] [address] Physician Taxicab Coordinator Oncology 07/08/22 documented as of this encounter
--- OUTSIDE RECORDS SUMMARY | 2024-11-29 09:54 | XMS_ITS | Encounter Summary ---
Author Organization [employer] ([place], [place], [place], [place]) Address [address] [place] [address] Care Team Providers Care Compressor Station Chief Engineer Name Role Phone Eladio Lomas MD Unavailable Breanna Crow PA-C Unavailable [phone] Encounter Details Date Type Department Care Team (Late st Contact Info) Description 10/15/2021 Transcribed Document [facility] [place] [address] [place] [address] ProviderJailyn MD [address] [place] [address] Social History Tobacco Use Types [...] 10/15/2021 15:55 EDT Electronically signed by Huy, [facility] Conversion Pressing Machine Tender Cerner at 08/17/2022 5:55 PM CDT documented in this encounter Plan of Treatment Not on file documented as of this encounter Visit Diagnoses Not on filedocumented in this encounter Care Teams Compressor Station Chief Engineer Relationship Specialty Start Date End Date Eladio Lomas MD 1210 [facility] [address] [place] [address] Medical Oncologist Hematology and Oncology 07/08/22 Breanna Crow, PACecilia [address] [facility] [address] [place] [address] Physician Magnet Placer Oncology 07/08/22 documented as of this encounter
--- OUTSIDE RECORDS SUMMARY | 2024-11-29 09:54 | XMS_ITS | Encounter Summary ---
Author Organization [employer] ([place], [place], [place], [place]) Address [address] [place] [address] Care Team Providers Care Decision Unit Rn Name Role Phone Eladio Lomas MD Unavailable Breanna Crow PA-C Unavailable [phone] Encounter Details Date Type Department Care Team (Late st Contact Info) Description 10/15/2021 Transcribed Document [facility] [place] [address] [place] [address] ProviderJailyn MD [address] [place] [address] Social History Tobacco Use Types [...] Date Ata rded Speak language other than Taiwanese at home Not on file 05/13/2023 Want [...] on filedocumented in this encounter Care Teams Decision Unit Rn Relationship Specialty Start Date End Date Eladio Lomas MD 1210 [facility] [address] [place] [address] Medical Oncologist Hematology and Oncology 07/08/22 Breanna Crow, PACecilia [address] [place] [address] [place] [address] Physician Teaching Fellow Oncology 07/08/22 documented as of this encounter
--- OUTSIDE RECORDS SUMMARY | 2024-11-29 09:54 | XMS_ITS | Encounter Summary ---
Author Organization [employer] ([place], [place], [place], [place]) Address [address] [place] [address] Care Team Providers Care Insulation Machine Operator Name Role Phone Eladio Lomas MD Unavailable Breanna Crow PA-C Unavailable [phone] Encounter Details Date Type Department Care Team (Late st Contact Info) Description 10/15/2021 Transcribed Document [facility] [place] [address] [place] [address] ProviderJailyn MD [address] [place] [address] Social History Tobacco Use Types [...] Date Ata rded Speak language other than Czech at home Not on file 05/13/2023 Want [...] At risk for sleep apnea / IMO [id number] / Confirmed, Active Problems (2) At risk for sleep apnea Mitral valve prolapse Objective VS/Measurements Measurements from flowsheet : Measurements 10/15/2021 4:48 EDT Height Source Stated Height Entry Format [place] Height/Length, ARABIC (ft) 5 ft Height/Length ARABIC 6 Inch CLINICALHEIGHT 167.64 cm [place] Body Weight 63 kg Weight Source Bed scale Weight Entry Format [place] Weight Czech lb 131 lb Weight Czech oz 5 oz CLINICALWEIGHT 59.69 kg Body Surface Area (BSA) 1.67 m2 Body Mass Index 21.2 kg/m2 10/15/2021 3:09 EDT Height Source Not Done: Task Duplication (Not Done) Height Entry Format Not Done: Task Duplication (Not Done) Weight Source Not Done: Task Duplication (Not Done) 10/14/2021 18:31 EDT Height Source Stated Height Entry Format [place] Height/Length, ARABIC (ft) 5 ft Height/Length ARABIC 6 Inch CLINICALHEIGHT 167.64 cm [place] Body Weight 62.88 kg Weight Source, ED Critical estimated dosing weight Weight Entry Format [place] Weight Czech lb 180 lb CLINICALWEIGHT 81.82 kg Body Surface Area (BSA) 1.91 m2 Body Mass Index 29.1 kg/m2 [place] documented in this encounter Plan of Treatment Not on file documented as of this encounter Visit Diagnoses Not on filedocumented in this encounter Care Teams Insulation Machine Operator Relationship Specialty Start Date End Date Eladio Lomas MD 1210 [facility] [address] [place] [address] Medical Oncologist Hematology and Oncology 07/08/22 Breanna Crow, PARebelC 34[address] [facility] [address] [place] [address] Physician Rehabilitation Medicine Physician Oncology 07/08/22 documented as of this encounter
--- OUTSIDE RECORDS SUMMARY | 2024-11-29 09:54 | XMS_ITS | Encounter Summary ---
Author Organization [employer] ([place], [place], [place], [place]) Address [address] [place] [address] Care Team Providers Care Information Technology Coordinator Name Role Phone Eladio Lomas MD Unavailable Breanna Crow PA-C Unavailable [phone] Encounter Details Date Type Department Care Team (Late st Contact Info) Description 01/01/2022 Transcribed Document [facility] [place] [address] [place] [address] ProviderJailyn MD [address] [place] [address] Social History Tobacco Use Types [...] lysis, facetectomy, L4-5 SURGEON: Garcia Workman MD. NURSE AIDE EVALUATOR: Roberto Plata ANESTHESIA: General. ESTIMATED BLOOD LOSS: [...] on filedocumented in this encounter Care Teams Information Technology Coordinator Relationship Specialty Start Date End Date Eladio Lomas MD 1210 [facility] [address] [place], [place] [address] Medical Oncologist Hematology and Oncology 07/08/22 Breanna Crow PACecilia 1209 [facility] [address] [place] [address] Physician Nutrition Coordinator Oncology 07/08/22 documented as of this encounter
--- OUTSIDE RECORDS SUMMARY | 2024-11-29 09:54 | XMS_ITS | Encounter Summary ---
Author Organization [employer] ([place], [place], [place], [place]) Address [address] [place] [address] Care Team Providers Care Business Development Professional Name Role Phone Eladio Lomas MD Unavailable Breanna Crow PA-C Unavailable [phone] Encounter Details Date Type Department Care Team (Late st Contact Info) Description 10/14/[address] [facility] [place] [address] [place] [address] ProviderJailyn MD [address] [place] [address] Social History Tobacco Use Types [...] 10/14/2021 18:33 EDT Electronically signed by Huy [facility] Conversion Laboratory Analyst Cerner at 08/17/2022 6:01 PM CDT documented in this encounter Plan of Treatment Not on file documented as of this encounter Visit Diagnoses Not on filedocumented in this encounter Care Teams Business Development Professional Relationship Specialty Start Date End Date Eladio Lomas MD 1210 [facility] [address] [place] [address] Medical Oncologist Hematology and Oncology 07/08/22 Breanna Crow, CHAVA [address] [address] Physician Barrow Worker Helper Oncology 07/08/22 documented as of this encounter
--- OUTSIDE RECORDS SUMMARY | 2024-11-29 09:54 | XMS_ITS | Encounter Summary ---
Author Organization [employer] ([place], [place], [place], [place]) Address [address] [place] [address] Care Team Providers Care Wildland Fire Fighter Specialist Name Role Phone Eladio Lomas MD Unavailable Breanna Crow PA-C Unavailable [phone] Encounter Details Date Type Department Care Team (Late st Contact Info) Description 10/15/2021 Transcribed Document [facility] [place] [address] [place] [address] ProviderJailyn MD [address] [place] [address] Social History Tobacco Use Types [...] Date Ata rded Speak language other than Welsh at home Not on file 05/13/2023 Want [...] w/ pt who 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 [...] Meds: benadryl, lovenox, Pepcid, KCl GI: LBM PRINCIPAL SECRETARY, +BS Skin: no skin breakdown noted, healing [...] Energy Balance Related to : decreased appetitie PRINCIPAL SECRETARY Energy Balance as Evidenced by : 50% [...] on filedocumented in this encounter Care Teams Wildland Fire Fighter Specialist Relationship Specialty Start Date End Date Eladio Lomas MD [address] [place] [address] Medical Oncologist Hematology and Oncology 07/08/22 Breanna Crow, PA-C [address] [place] [address] [place] [address] Physician Bolt Header Oncology 07/08/22 documented as of this encounter
--- OUTSIDE RECORDS SUMMARY | 2024-11-29 09:54 | XMS_ITS | Encounter Summary ---
Author Organization [employer] ([place], [place], [place], [place]) Address [address] [place] [address] Care Team Providers Care Roving Frame Tender Name Role Phone Eladio Lomas MD Unavailable Breanna Crow PA-C Unavailable [phone] Encounter Details Date Type Department Care Team (Late st Contact Info) Description 10/14/2021 Transcribed Document [facility] [place] [address] [place] [address] ProviderJailyn MD [address] [place] [address] Social History Tobacco Use Types [...] : 3 - Urgent Tracking Group : [facility] ED [place] UGO FAN RN - 10/14/2021 18:31 EDT Mode of Arrival : Wheelchair Transported to ED by : Private vehicle To Room Via : Wheelchair Accompanied By : Spouse ED Vital Signs : Document Height & Weight : Document ED Allergies : Document ED Reason for Visit : Document Tetanus Immunization : Greater than 5 years Parking Lot Laborer Needed : No UGO FAN RN - [...] EDT) Problems(Active) Mitral valve prolapse (SNOMED CT :[id number] ) Name of Problem: Mitral valve prolapse ; Recorder: Miranda Flor RN; Confirmation: Confirmed ; Classification: Patient Stated ; Code: [id number] ; Contributor System: Scaffold ; Last Updated: 11/28/2017 15:14 EDT ; Life Cycle Date: 11/28/2017 ; Life Cycle Status: Active ; Vocabulary: SNOMED CT Diagnoses(Active) Paresthesia Date: 10/14/2021 ; Diagnosis Type: Reason For Visit ; Confirmation: Complaint of ; Clinical Dx: Paresthesia ; Classification: Medical ; Clinical Service: Emergency medicine ; Code: PNED ; Probability: 0 ; Diagnosis Code: [id number] ED Height and Weight Height Source : Stated Height Entry Format : [place] Height, Feet : 5 ft(Converted to: 152 cm, 60 Inch) Height, Inches : 6 Inch(Converted to: 0 ft 6 Inch, 15.24 cm) Clinical Height : 167.64 cm Weight Source, ED : Critical estimated dosing weight Weight Entry Format : [place] Weight, Pounds : 180 lb Clinical Dosing Weight : 81.82 kg Body Surface Area (BSA) : 1.91 m2 Body Mass Index : 29.1 kg/m2 (HI) [place] Body Weight (IBW) : 62.88 kg UGO FAN RN - 10/14/2021 18:31 EDT Patient/Family Parking Lot Laborer Communication Primary Language : Djiboutian UOG FAN, RN - 10/14/2021 18:31 EDT documented in this encounter Plan of Treatment Not on file documented as of this encounter Visit Diagnoses Not on filedocumented in this encounter Care Teams Roving Frame Tender Relationship Specialty Start Date End Date Eladio Lomas MD 1210 [facility] [address] [address] Medical Oncologist Hematology and Oncology 07/08/22 Breanna Crow, PACecilia [address] [address] Physician Turner In Oncology 07/08/22 documented as of this encounter
--- OUTSIDE RECORDS SUMMARY | 2024-11-29 09:54 | XMS_ITS | Encounter Summary ---
Author Organization [facility] Address [address] [place] [address] Care Team Providers Care Hand Painter Name Role Phone Per Patient, None Primary Care Provider Unavaila ble Encounter Details Date Type Department Care Team (Late st Contact Info) Description 01/07/2021 Orders Only [facility] [address] [place] [address] Maurisio Aguilar MD [address] [address] Social History Tobacco Use Types [...] Glucose 99 74 - 100 mg/dL [facility] External BUN 16 6 - 20 mg/dL [facility] External Creatinine Blood 0.93 0.70 - 1.28 mg/dL [facility] External BUN/Creat Ratio 17 10 - 20 (calc) [facility] External Sodium 141 136 - 145 mmol/L [facility] External Potassium 4.2 3.4 - 5.0 mmol/L [facility] External Chloride 102 98 - 107 mmol/L [facility] External Carbon Dioxide 25 22 - 31 mmol/L [facility] External Anion Gap (AG) 14 7 - 25 (calc) [facility] External Calcium 9.4 8.6 - 10.2 mg/dL [facility] External Total Protein 7.0 6.4 - 8.3 g/dL [facility] External Albumin 4.8 3.5 - 5.2 g/dL [facility] External Globulin 2.2 1.5 - 4.5 g/dL (calc) [facility] External Albumin/Globulin Ratio 2.2 1.1 - 2.5 (calc) [facility] External Bilirubin Total 0.4 0.1 - 1.2 mg/dL [facility] External Alkaline Phosphatase 85 40 - 129 U/L [facility] External AST (SGOT) 22 0 - 40 U/L [facility] External ALT (SGPT) 19 0 - 41 U/L [facility] External EGFR (If AFR/AM) 94 >=60 [facility] External Estimated GFR 81 >=60 [facility] Comment: NOTE Chronic kidney [...] LAB BLOOD ORDERABLES Final Res ult [facility] [address] [place] [address], [place] [phone] documented in this encounter Visit Diagnoses Not on filedocumented in this encounter Care Teams Hand Painter Relationship Specialty Start Date End Date Per Patient, [place] [address] PCP - General 05/02/20 documented as of this encounter
--- OUTSIDE RECORDS SUMMARY | 2024-11-29 09:55 | XMS_ITS | Encounter Summary ---
Author Organization [employer] ([place], [place], [place], [place]) Address [address] [place] [address] Care Team Providers Care Station Mechanic Helper Name Role Phone Eladio Lomas MD Unavailable Breanna Crow PA-C Unavailable [phone] Encounter Details Date Type Department Care Team (Late st Contact Info) Description 10/18/2021 Transcribed Document [facility] [place] [address] [place] [address] ProviderJailyn MD [address] [place] [address] Social History Tobacco Use Types [...] any clubs o r organizations such as christianity groups, unions, fraternal or athletic groups, or [...] on Discharge Medically stable Consulting Physicians ROMERO INGRMA MD-SERENE - LE weakness GARCIA WORKMAN MD-ORT [...] 10/17/2021 11:52 EDT Electronically signed by Huy [facility] Conversion Glassblower Cerner at 08/17/2022 5:59 PM CDT documented in this encounter Plan of Treatment Not on file documented as of this encounter Visit Diagnoses Not on filedocumented in this encounter Care Teams Station Mechanic Helper Relationship Specialty Start Date End Date Eladio Lomas MD 1210 [facility] [address] [address] Medical Oncologist Hematology and Oncology 07/08/22 Breanna Crow PA-C 34[address] [facility] [address] [place] [address] Physician Entry Level Manufacturing Engineer Oncology 07/08/22 documented as of this encounter
--- OUTSIDE RECORDS SUMMARY | 2024-11-29 09:55 | XMS_ITS | Encounter Summary ---
Author Organization [employer] ([place], [place], [place], [place]) Address [address] [place] [address] Care Team Providers Care Supervisor Metal Fabricating Name Role Phone Eladio Lomas MD Unavailable Breanna Crow PA-C Unavailable [phone] Encounter Details Date Type Department Care Team (Late st Contact Info) Description 01/01/2022 Transcribed Document [facility] [place] [address] [place] [address] ProviderJailyn MD [address] [place] [address] Social History Tobacco Use Types [...] any clubs o r organizations such as uatsdin groups, unions, fraternal or athletic groups, or [...] HU /Sex: 1950 Male Med Rec #: [id number] Physician: GARCIA WORKMAN MD-ORT Financial #: [id number] Pt. Type: O [facility] Admit/Disch: 01/01/22 09:26:00 - Institution: [facility] PreOp Case Times Entry 1 In Preop 01/01/22 07:55:00 Ready for Holding n/a Room Patient Ready for 01/01/22 10:10:00 Surgery Patient Out of Preop 01/01/22 10:37:00 Patient Out of n/a Holding Room Last Modified By: Ansley Lane RN 01/01/22 10:47:06 [place] PreOp Case Times Audit 01/01/22 10:47:06 Educational Technology Specialist: [id number] Modifier: [id number] <+> 1 Patient Out of Preop Finalized By: Ansley Lane, RN Document Signatures Signed By: Ansley Lane RN 01/01/22 10:47 Electronically signed by Huy [facility] Conversion Contracts Manager Cerner at 08/17/2022 6:02 PM CDT documented in this encounter Plan of Treatment Not on file documented as of this encounter Visit Diagnoses Not on filedocumented in this encounter Care Teams Supervisor Metal Fabricating Relationship Specialty Start Date End Date Eladio Lomas MD 1210 [facility] [address], [place] [address] Medical Oncologist Hematology and Oncology 07/08/22 Breanna Crow PA-C [address] [facility] [address] [place] [address] Physician Whizzer Hand Oncology 07/08/22 documented as of this encounter
--- OUTSIDE RECORDS SUMMARY | 2024-11-29 09:55 | XMS_ITS | Encounter Summary ---
Author Organization [employer] ([place], [place], [place], [place]) Address [address] [place] [address] Care Team Providers Care Almond Paste Mixer Name Role Phone Eladio Lomas MD Unavailable Breanna Crow PA-C Unavailable [phone] Encounter Details Date Type Department Care Team (Late st Contact Info) Description 12/29/2021 Transcribed Document [facility] [place] [address] [place] [address] ProviderJailyn MD [address] [place] [address] Social History Tobacco Use Types [...] Date Ata rded Speak language other than Nigerien at home Not on file 05/13/2023 Want [...] MVP - pt has not seen a interior plant caretaker 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 Pt denies [...] # 7.60 K/uL (High) 12/29/2021 10:31 EDT Bee % 14.8 % (High) 12/29/2021 10:31 EDT Bee # 2.11 K/uL (High) 12/29/2021 10:31 EDT [...] pending Cotinine - pending Electronically signed by [facility], [facility] Conversion Surgery Scheduler Cerner at 08/17/2022 6:07 PM CDT documented in this encounter Plan of Treatment Not on file documented as of this encounter Visit Diagnoses Not on filedocumented in this encounter Care Teams Almond Paste Mixer Relationship Specialty Start Date End Date Eladio Lomas MD 1210 [facility] [address] [place] [address] Medical Oncologist Hematology and Oncology 07/08/22 Breanna Crow PA-C [address] [place] [address] Physician Voltmeter Operator Oncology 07/08/22 documented as of this encounter
--- OUTSIDE RECORDS SUMMARY | 2024-11-29 09:55 | XMS_ITS | Encounter Summary ---
Author Organization [employer] ([place], [place], [place], [place]) Address [address] [place] [address] Care Team Providers Care Workers' Compensation Mediator Name Role Phone Eladio Lomas MD Unavailable Breanna Crow PA-C Unavailable [phone] Encounter Details Date Type Department Care Team (Late st Contact Info) Description 10/17/2021 Transcribed Document [facility] [place] [address] [place] [address] ProviderJailyn MD [address] [place] [address] Social History Tobacco Use Types [...] Date Ata rded Speak language other than Congolese at home Not on file 05/13/2023 Want [...] lower motor neuron process.. Integumentary: Warm, Dry, [place]. Neurologic: Alert, Oriented, Cranial Nerves II-XII are [...] the rash. Leukocytosis, procalcitonin ordered. Disposition: Pending websphere consultant recommendations and plans, still needs further [...] # 4.35 K/uL (High) 10/17/2021 02:21 EDT [place] % 15.2 % (High) 10/17/2021 02:21 EDT [place] # 2.14 K/uL (High) 10/17/2021 02:21 EDT [...] Second(s) 10/17/2021 02:21 EDT Electronically signed by [facility], [facility] Conversion Fish Bait Processing Supervisor Cerner at 08/17/2022 6:20 PM CDT documented in this encounter Plan of Treatment Not on file documented as of this encounter Visit Diagnoses Not on filedocumented in this encounter Care Teams Workers' Compensation Mediator Relationship Specialty Start Date End Date Eladio Lomas MD 1210 [facility] [address] [place] [address] Medical Oncologist Hematology and Oncology 07/08/22 Breanna Crow PA-C [address] [facility] [address] [place] [address] Physician Tool Sharpener Oncology 07/08/22 documented as of this encounter
--- OUTSIDE RECORDS SUMMARY | 2024-11-29 09:55 | XMS_ITS | Encounter Summary ---
Author Organization [employer] ([place], [place], [place], [place]) Address [address] [place] [address] Care Team Providers Care Gum Maker Name Role Phone Eladio Lomas MD Unavailable Breanna Crow PA-C Unavailable [phone] Encounter Details Date Type Department Care Team (Late st Contact Info) Description 01/01/2022 Transcribed Document [facility] [place] [address] [place] [address] ProviderJailyn MD [address] [place] [address] Social History Tobacco Use Types [...] HU /Sex: 1950 Male Med Rec #: [id number] Physician: GARCIA WORKMAN MD-ORT Financial #: [id number] Pt. Type: O Room/Bed: [facility] Admit/Disch: 01/01/22 09:26:00 - Institution: E Main OR PACU Case Times Entry 1 In PACU I 01/01/22 11:50:00 Ready for PACU 01/01/22 12:38:00 Discharge Discharge from PACU 01/01/22 12:38:00 I Last Modified By: Lashay Liu RN 01/01/22 12:45:05 [facility] Main OR PACU Case Times Audit 01/01/22 12:45:05 College Specialist: SXPOWERS Modifier: SXPOWERS <+> 1 Ready for PACU Discharge <+> 1 Discharge from PACU I Finalized By: Lashay Liu, RN Document Signatures Signed By: Lashay Liu RN 01/01/22 12:45 Electronically signed by Huy [facility] Conversion Hoop Maker Machine Cerner at 08/17/2022 5:57 PM CDT documented in this encounter Plan of Treatment Not on file documented as of this encounter Visit Diagnoses Not on filedocumented in this encounter Care Teams Gum Maker Relationship Specialty Start Date End Date Eladio Lomas MD 1210 [facility] [address], [place] [address] Medical Oncologist Hematology and Oncology 07/08/22 Breanna Crow PA-C [address] [facility] [address] [place] [address] Physician Child Welfare Specialist Oncology 07/08/22 documented as of this encounter
--- OUTSIDE RECORDS SUMMARY | 2024-11-29 09:55 | XMS_ITS | Encounter Summary ---
Author Organization [employer] ([place], [place], [place], [place]) Address [address] [place] [address] Care Team Providers Care Program Engineer Name Role Phone Eladio Lomas MD Unavailable Breanna Crow PA-C Unavailable [phone] Encounter Details Date Type Department Care Team (Late st Contact Info) Description 10/16/[address] [facility] [address] [place] [address] Romero Dias MD [address] [place] [address] Social History Tobacco Use Types [...] no evidence of a meningeal encephalitis or [place]?? secondary to his varicella and I [...] Shortness of Breath Lovenox: 40 mg, SubCutaneous, [id number] MiraLax: 17 Gram, Oral, Daily, PRN: Constipation [...] mL inj 40 mg 0.4 mL, SubCutaneous, [id number] famotidine 20 mg tab 20 mg 1 [...] At risk for sleep apnea / IMO [id number] / Confirmed, Active Problems (2) At risk [...] lower motor neuron process.. Integumentary: Warm, Dry, [place]. Neurologic: Alert, Oriented, Cranial Nerves II-XII are [...] on filedocumented in this encounter Care Teams Program Engineer Relationship Specialty Start Date End Date Eladio Lomas MD [address] [address] Medical Oncologist Hematology and Oncology 07/08/22 Breanna rCow PA-C [address] [facility] [address] [place] [address] Physician Solution Architect Oncology 07/08/22 documented as of this encounter
--- OUTSIDE RECORDS SUMMARY | 2024-11-29 09:55 | XMS_ITS | Encounter Summary ---
Author Organization [employer] ([place], [place], [place], [place]) Address [address] [place] [address] Care Team Providers Care Filling Hauler Weaving Name Role Phone Eladio Lomas MD Unavailable Breanna Crow PA-C Unavailable [phone] Encounter Details Date Type Department Care Team (Late st Contact Info) Description 10/29/2021 Transcribed Document [facility] [place] [address] [place] [address] ProviderJailyn MD [address] [place] [address] Social History Tobacco Use Types [...] Health Plan: [employer] PPO Policy Number: [id number] Authorization Number: Insurance Primary Name : [employer] CHOICE PPO [id number] Authorization Status-Primary : Denied Reference Number-Primary : [id number] Authorized Service Begin Date-Primary : 10/15/2021 EDT [...] 13:43) Comment 2: Rec faxed Denial from [facility] 10/19/21 Placed in tray on [employer] desk (KEI JEAN-BAPTISTE, Pattern And Chain Maker 10/19/2021 13:08) Comment 3: [employer] CHOICE PPO auth still pending per availity (JUANITA HUGO, SHARYN-Utilization Review 10/19/2021 11:01) Comment 4: Clinicals faxed via [email or web address] (Natalie Lauren, Sharyn-Utilization Review 10/15/2021 09:30) Comment 5: [employer] CHOICE PPO auth pending per Star note. (JUANITA HUGO RN-Utilization Review 10/15/2021 09:18) DIETER MAR RN - 10/29/2021 8:47 EDT documented in this encounter Plan of Treatment Not on file documented as of this encounter Visit Diagnoses Not on filedocumented in this encounter Care Teams Filling Hauler Weaving Relationship Specialty Start Date End Date Eladio Lomas MD 1210 [facility] [address] [facility] [place] [address] Medical Oncologist Hematology and Oncology 07/08/22 Breanna Crow, CHAVA [address] [address] Physician Direct Support Professional Home Health Oncology 07/08/22 documented as of this encounter
--- OUTSIDE RECORDS SUMMARY | 2024-11-29 09:55 | XMS_ITS | Encounter Summary ---
Author Organization [employer] ([place], [place], [place], [place]) Address [address] [place] [address] Care Team Providers Care Egg Trayer Name Role Phone Eladio Lomas MD Unavailable Breanna Crow PA-C Unavailable [phone] Encounter Details Date Type Department Care Team (Late st Contact Info) Description 10/18/2021 Transcribed Document [facility] [place] [address] [place] [address] ProviderJailyn MD [address] [place] [address] Social History Tobacco Use Types [...] Date Ata rded Speak language other than Argentine at home Not on file 05/13/2023 Want [...] Historical Provider, - 10/18/2021 12:28 [place] [address] CORBIN HU :1950 Visit Time:10/15/2021 Your Visit [...] TRENA PANIAGUA When Within 2 weeks Where: [facility] [address] [address] Business (1) Medications What How Much When [...] 10 mg daily in total Pickup at [facility] #[id number] This evening predniSONE (predniSONE 10 mg oral tablet) See instructions Taper course of prednisone as following: First day 6 tabs, second day 5 tabs, third day 4 tabs, fourth day 3 tabs, fifth day 2 tabs, sixth day 1 tab, seventh half tab and eighth half tab Pickup at [facility] #[id number] This afternoon valACYclovir (Valtrex 500 mg oral [...] instructions 1 Oral Daily Tomorrow Pharmacy Information [id number]: [address] [place] [phone] Take your medications faithfully. Do NOT skip [...] intense exercise for several days. ??? Take bjgu-ncy-hwngikc and prescription medicines only as told by [...] not known. ??? Stay hydrated, and take wmun-avs-jcxazrq and prescription medicines only as told by your health care provider. This information is not intended to replace advice given to you by your health care provider. Make sure you discuss any questions you have with your health care provider. Document Revised: 09/03/2020 Document Reviewed: 09/03/2020 [employer]b Patient Education ?? 2020 [employer]. Emergency Awareness and Preventative Care STROKE is [...] Assistance with quitting is available by contacting 3-090-QJEKNOW. This is a free resource providing counseling, [...] range between ( 1.0 and 7.0 ) Bailey #: 2.80 K/uL -- Normal range between ( 0.24 and 0.82 ) Eos #: 0.00 K/uL -- Normal range between ( 0.04 and 0.54 ) Bailey %: 17.6 % -- Normal range between [...] #: 4 K/uL ANC #: 5 K/uL Bailey Percent Man: 19 % -- Normal range [...] was given the opportunity to ask questions. Patient/Softlines Supervisor Name: Patient/Softlines Supervisor Signature: Relationship to Patient: Clinician/Hospital Softlines Supervisor Signature: Date: documented in this encounter Plan of Treatment Not on file documented as of this encounter Visit Diagnoses Not on filedocumented in this encounter Care Teams Egg Trayer Relationship Specialty Start Date End Date Eladio Lomas MD 1210 [facility] [address] [place] [address] Medical Oncologist Hematology and Oncology 07/08/22 Breanna Crow, PA-C [address] [address] Physician Take Down Inspector Oncology 07/08/22 documented as of this encounter
--- OUTSIDE RECORDS SUMMARY | 2024-11-29 09:55 | XMS_ITS | Encounter Summary ---
Author Organization [employer] ([place], [place], [place], [place]) Address [address] [place] [address] Care Team Providers Care Private Branch Exchange Installer Name Role Phone Eladio Lomas MD Unavailable Breanna Crow PA-C Unavailable [phone] Encounter Details Date Type Department Care Team (Late st Contact Info) Description 10/18/2021 Transcribed Document [facility] [place] Family Medicine [address] [place] [address] ProviderJailyn MD [address] [place] [address] Social History Tobacco Use Types [...] : Yes Discharge To Care Management : Home/Residential/Senior Care or Self Care -01 ROMERO MCMANUS RN [...] on filedocumented in this encounter Care Teams Private Branch Exchange Installer Relationship Specialty Start Date End Date Eladio Lomas MD 1210 [facility] [address] [place] [address] Medical Oncologist Hematology and Oncology 07/08/22 Breanna Crow PACecilia [address] [facility] [address] [place] [address] Physician Quality Measurement Specialist Oncology 07/08/22 documented as of this encounter
--- OUTSIDE RECORDS SUMMARY | 2024-11-29 09:55 | XMS_ITS | Encounter Summary ---
Author Organization [employer] ([place], [place], [place], [place]) Address [address] [place] [address] Care Team Providers Care Cleaning Team Member Name Role Phone Eladio Lomas MD Unavailable Breanna Crow PA-C Unavailable [phone] Encounter Details Date Type Department Care Team (Late st Contact Info) Description 10/16/2021 Transcribed Document [facility] [place] [address] [place] [address] ProviderJailyn MD [address] [place] [address] Social History Tobacco Use Types [...] Historical Provider, - 10/16/2021 2:00 AM CDT Medical Technologist Generalist Details Entered On: 10/16/2021 4:15 EDT Performed On: 10/16/2021 2:00 EDT by Tessy Gramajo RN-PATIENT CARE BEDSIDE NON-EXEMPT Order Details Order Detail : N/A Patient Needs Meds Crushed/Liquid : No Tessy Gramajo RN-PATIENT CARE BEDSIDE NON-EXEMPT - 10/16/2021 4:15 EDT Electronically signed by Huy [facility] Conversion Career Technical Supervisor Cerner at 08/17/2022 6:18 PM CDT documented in this encounter Plan of Treatment Not on file documented as of this encounter Visit Diagnoses Not on filedocumented in this encounter Care Teams Cleaning Team Member Relationship Specialty Start Date End Date Eladio Lomas MD 1210 [facility] [address] [address] Medical Oncologist Hematology and Oncology 07/08/22 Breanna Crow, PACecilia [address] [facility] [address] [place] [address] Physician Bander Oncology 07/08/22 documented as of this encounter
--- OUTSIDE RECORDS SUMMARY | 2024-11-29 09:55 | XMS_ITS | Encounter Summary ---
Author Organization [employer] ([place], [place], [place], [place]) Address [address] [place] [address] Care Team Providers Care Distiller Name Role Phone Eladio Lomas MD Unavailable Breanna Crow PA-C Unavailable [phone] Encounter Details Date Type Department Care Team (Late st Contact Info) Description 01/01/[address] [facility] [place] Medicine [address] [place] [address] ProviderJailyn MD [address] [place] [address] Social History Tobacco Use Types [...] Date Ata rded Speak language other than Panamanian at home Not on file 05/13/2023 Want [...] Historical Provider, - 01/01/2022 1:12 [place] [address] SARAH HU :1950 Visit Time:01/01/2022 What to [...] for follow-up date and appointment time Activity: [place] dressing. Do not remove. May shower with [...] MD-ORT When 01/14/2022 11:00 AM EDT Where: [address] [place] [address] [address] [place] [address]- Medications What How Much When Instructions Next [...] [facility]: [address] [place] [address] [phone] Take your medications faithfully. Do NOT skip [...] these instructions at home: Medicines ??? Take zkyp-xkd-zfkibpm and prescription medicines as told by your [...] keep your urine pale yellow. ? Take ddde-hsv-egxpikx or prescription medicines. ? Eat foods that [...] and water are not available, use hand limousine rental clerk. ? Change your dressing as told by [...] safe to drive. General instructions ??? Take yszs-ezk-uuwlwif and prescription medicines only as told by [...] provider. Document Revised: 08/06/2020 Document Reviewed: 08/06/2020 [employer] Patient Education ?? 2021 [employer] Laminectomy, Care After This sheet [...] these instructions at home: Medicines ??? Take ohtw-rkt-ennaqhv and prescription medicines only as told by [...] keep your urine pale yellow. ? Take lhpl-ptk-upgqfgz or prescription medicines. ? Eat foods that [...] and water are not available, use hand limousine rental clerk. ? Change your dressing as told by [...] provider. Document Revised: 11/12/2019 Document Reviewed: 11/12/2019 [employer] Patient Education ?? 2021 [employer]. Emergency Awareness and Preventative Care STROKE is [...] Assistance with quitting is available by contacting 2-622-SNOI-NOW. This is a free resource providing counseling, [...] was given the opportunity to ask questions. Patient/Photostat Operator Name: Patient/Photostat Operator Signature: Relationship to Patient: Clinician/Hospital Photostat Operator Signature: Date: Electronically signed by Rock Son Conversion Photographic Laboratory Supervisor Cerner at 08/17/2022 6:10 PM CDT documented in this encounter Plan of Treatment Not on file documented as of this encounter Visit Diagnoses Not on filedocumented in this encounter Care Teams Distiller Relationship Specialty Start Date End Date Eladio Lomas MD 1210 [facility] [address] [place], [place] [address] Medical Oncologist Hematology and Oncology 07/08/22 Breanna Crow PARebelC [address] [facility] [address] [place] [address] Physician Bricklayer Oncology 07/08/22 documented as of this encounter
--- OUTSIDE RECORDS SUMMARY | 2024-11-29 09:55 | XMS_ITS | Encounter Summary ---
Author Organization [employer] ([place], [place], [place], [place]) Address [address] [place] [address] Care Team Providers Care Radial Drill Operator Name Role Phone Eladio Lomas MD Unavailable Breanna Crow PA-C Unavailable [phone] Encounter Details Date Type Department Care Team (Late st Contact Info) Description 10/26/2021 Transcribed Document [facility] [place] [address] [place] [address] ProviderJailyn MD [address] [place] [address] Social History Tobacco Use Types [...] often do you attend chur ch or latter-day services? Never 07/08/2022 Do you belong to [...] Discharge Summary on 10/18/2021 by Wilberto Brantley CDS/Epic Trainer Signature: Gui Hughes. Mehreen Phone #: Date/Time: 10/27/2021 00:42 This is a permanent part of the Medical Record Q55 2020 [employer] Reviewed: 07/2020 Q55 2020 [employer] Reviewed: 07/2020 Electronically signed by Huy, [facility] Conversion Insurance Agency Sales Manager Cerner at 08/17/2022 6:04 PM CDT documented in this encounter Plan of Treatment Not on file documented as of this encounter Visit Diagnoses Not on filedocumented in this encounter Care Teams Radial Drill Operator Relationship Specialty Start Date End Date Eladio Lomas MD 1210 [facility] [address] [place] [address] Medical Oncologist Hematology and Oncology 07/08/22 Breanna Crow, PACecilia 34[address] [facility] [address] [place] [address] Physician Bull Riveter Oncology 07/08/22 documented as of this encounter
--- OUTSIDE RECORDS SUMMARY | 2024-11-29 09:55 | XMS_ITS | Encounter Summary ---
Author Organization [employer] ([place], [place], [place], [place]) Address [address] [place] [address] Care Team Providers Care Pile Driving Technician Name Role Phone Eladio Lomas MD Unavailable Breanna Crow PA-C Unavailable [phone] Encounter Details Date Type Department Care Team (Late st Contact Info) Description 10/16/2021 Transcribed Document [facility] [place] [address] [place] [address] ProviderJailyn MD [address] [place] [address] Social History Tobacco Use Types [...] - 10/16/2021 14:01 EDT Electronically signed by [facility], [facility] Conversion Stallion Keeper Cerner at 08/17/2022 5:59 PM CDT documented in this encounter Plan of Treatment Not on file documented as of this encounter Visit Diagnoses Not on filedocumented in this encounter Care Teams Pile Driving Technician Relationship Specialty Start Date End Date Eladio Lomas MD 1210 [facility] [address] [place] [address] Medical Oncologist Hematology and Oncology 07/08/22 Breanna Crow, PACecilia 3470 [facility] [address] [place] [address] Physician Planishing Press Operator Oncology 07/08/22 documented as of this encounter
--- OUTSIDE RECORDS SUMMARY | 2024-11-29 09:55 | XMS_ITS | Encounter Summary ---
Author Organization [employer] ([place], [place], [place], [place]) Address [address] [place] [address] Care Team Providers Care Director Government Name Role Phone Eladio Lomas MD Unavailable Breanna Crow PA-C Unavailable [phone] Encounter Details Date Type Department Care Team (Late st Contact Info) Description 10/16/2021 Transcribed Document [facility] [place] Family Medicine [address] [place] [address] ProviderJailyn MD [address] [place] [address] Social History Tobacco Use Types [...] Date Ata rded Speak language other than Tajik at home Not on file 05/13/2023 Want [...] 10/16/2021 18:44 EDT Electronically signed by Huy [facility] Conversion Firer Bisque Kiln Cerner at 08/17/2022 6:20 PM CDT documented in this encounter Plan of Treatment Not on file documented as of this encounter Visit Diagnoses Not on filedocumented in this encounter Care Teams Director Government Relationship Specialty Start Date End Date Eladio Lomas MD 1210 [facility] [address] [address] Medical Oncologist Hematology and Oncology 07/08/22 Breanna Crow, PA-C [address] [facility] [address] [place] [address] Physician Hr Generalist Oncology 07/08/22 documented as of this encounter
--- OUTSIDE RECORDS SUMMARY | 2024-11-29 09:55 | XMS_ITS | Encounter Summary ---
Author Organization [employer] ([place], [place], [place], [place]) Address [address] [place] [address] Care Team Providers Care Biometrician Name Role Phone Eladio Lomas MD Unavailable Breanna Crow PA-C Unavailable [phone] Encounter Details Date Type Department Care Team (Late st Contact Info) Description 10/16/2021 Transcribed Document [facility] [place] Family Medicine [address] [place] [address] ProviderJailyn MD [address] [place] [address] Social History Tobacco Use Types [...] Date Ata rded Speak language other than Malaysian at home Not on file 05/13/2023 Want [...] on filedocumented in this encounter Care Teams Biometrician Relationship Specialty Start Date End Date Eladio Lomas MD [address] [address] Medical Oncologist Hematology and Oncology 07/08/22 Breanan Crow PA-C [address] [place] [address] [address] [place] [address] Physician Commercial Airplane Pilot Oncology 07/08/22 documented as of this encounter
--- OUTSIDE RECORDS SUMMARY | 2024-11-29 09:55 | XMS_ITS | Encounter Summary ---
Author Organization [employer] ([place], [place], [place], [place]) Address [address] [place] [address] Care Team Providers Care Dray Truck Driver Name Role Phone Eladio Lomas MD Unavailable Breanna Crow PA-C Unavailable [phone] Encounter Details Date Type Department Care Team (Late st Contact Info) Description 01/01/2022 Transcribed Document [facility] [place] Family Medicine [address] [place] [address] ProviderJailyn MD [address] [place] [address] Social History Tobacco Use Types [...] on filedocumented in this encounter Care Teams Dray Truck Driver Relationship Specialty Start Date End Date Eladio Lomas MD 1210 [facility] [address] [place] [address] Medical Oncologist Hematology and Oncology 07/08/22 Breanna Crow PA-C [address] [facility] [address] [place] [address] Physician Emt B Oncology 07/08/22 documented as of this encounter
--- OUTSIDE RECORDS SUMMARY | 2024-11-29 09:55 | XMS_ITS | Encounter Summary ---
Author Organization [employer] ([place], [place], [place], [place]) Address [address] [place] [address] Care Team Providers Care Organ Recovery Coordinator Name Role Phone Eladio Lomas MD Unavailable Breanna Crow PA-C Unavailable [phone] Encounter Details Date Type Department Care Team (Late st Contact Info) Description 10/16/2021 Transcribed Document [facility] [place] [address] [place] [address] ProviderJailyn MD [address] [place] [address] Social History Tobacco Use Types [...] At risk for sleep apnea / IMO [id number] / Confirmed, Active Problems (2) At risk [...] 99 (CINDI 16 17:56) Electronically signed by [facility], [facility] Conversion Associate Counsel Cerner at 08/17/2022 6:04 PM CDT documented in this encounter Plan of Treatment Not on file documented as of this encounter Visit Diagnoses Not on filedocumented in this encounter Care Teams Organ Recovery Coordinator Relationship Specialty Start Date End Date Eladio Lomas MD 1210 [facility] [address], [place] [address] Medical Oncologist Hematology and Oncology 07/08/22 Breanna Crow PA-C [address] [facility] [address] [place] [address] Physician Undercover Operator Oncology 07/08/22 documented as of this encounter
--- OUTSIDE RECORDS SUMMARY | 2024-11-29 09:55 | XMS_ITS | Encounter Summary ---
Author Organization [employer] ([place], [place], [place], [place]) Address [address] [place] [address] Care Team Providers Care Industrial Chemistry Teacher Name Role Phone Eladio Lomas MD Unavailable Breanna Crow PA-C Unavailable [phone] Encounter Details Date Type Department Care Team (Late st Contact Info) Description 10/18/2021 Transcribed Document [facility] [place] Family Medicine [address] [place] [address] ProviderJailyn MD [address] [place] [address] Social History Tobacco Use Types [...] often do you attend chur ch or church services? Never 07/08/2022 Do you belong to [...] Date Ata rded Speak language other than Sierra Leonean at home Not on file 05/13/2023 Want [...] 14:35 EDT by Celina Marley Non Emp client care coordinator Documentation Discharge Date/Time : 10/18/2021 12:50 EDT [...] filedocumented in this encounter Care Teams Industrial Chemistry Teacher Relationship Specialty Start Date End Date Eladio Lomas MD [address] [address] Medical Oncologist Hematology and Oncology 07/08/22 Breanna Crow PA-C [address] [facility] [address] [place] [address] Physician Sheet Manager Oncology 07/08/22 documented as of this encounter
--- OUTSIDE RECORDS SUMMARY | 2024-11-29 09:55 | XMS_ITS | Encounter Summary ---
Author Organization [employer] ([place], [place], [place], [place]) Address [address] [place] [address] Care Team Providers Care Rebar Bender Name Role Phone Eladio Lomas MD Unavailable Breanna Crow PA-C Unavailable [phone] Encounter Details Date Type Department Care Team (Late st Contact Info) Description 10/18/2021 Transcribed Document [facility] [place] [address] [place] [address] ProviderJailyn MD [address] [place] [address] Social History Tobacco Use Types [...] 10/18/2021 12:27 EDT Electronically signed by H[facility] Conversion Carbon Sequestration Plant Manager Cerner at 08/17/2022 6:01 PM CDT documented in this encounter Plan of Treatment Not on file documented as of this encounter Visit Diagnoses Not on filedocumented in this encounter Care Teams Rebar Bender Relationship Specialty Start Date End Date Eladio Lomas MD [address] [address] Medical Oncologist Hematology and Oncology 07/08/22 Breanna Crow, PA-C [address] [facility] [address] [place] [address] Physician Institute Scientist Oncology 07/08/22 documented as of this encounter
--- OUTSIDE RECORDS SUMMARY | 2024-11-29 09:55 | XMS_ITS | Encounter Summary ---
Author Organization [employer] ([place], [place], [place], [place]) Address [address] [place] [address] Care Team Providers Care Cardiology Consultants Name Role Phone Eladio Lomas MD Unavailable Breanna Crow PA-C Unavailable [phone] Encounter Details Date Type Department Care Team (Late st Contact Info) Description 10/16/2021 Transcribed Document [facility] [place] [address] [place] [address] ProviderJailyn MD [address] [place] [address] Social History Tobacco Use Types [...] Sent to Post Acute Providers : No [facility] Quality Web Info Shared w Pt/Fam : [...] on filedocumented in this encounter Care Teams Cardiology Consultants Relationship Specialty Start Date End Date Eladio Lomas MD 1210 [facility] [address] [place] [address] Medical Oncologist Hematology and Oncology 07/08/22 Breanna Crow PACecilia [address] [place], [place] [id number] Physician Furnace Room Supervisor Oncology 07/08/22 documented as of this encounter
--- OUTSIDE RECORDS SUMMARY | 2024-11-29 09:55 | XMS_ITS | Encounter Summary ---
Author Organization [employer] ([place], [place], [place], [place]) Address [address] [place] [address] Care Team Providers Care Unit Clerk Name Role Phone Eladio Lomas MD Unavailable Breanna Crow PA-C Unavailable [phone] Encounter Details Date Type Department Care Team (Late st Contact Info) Description 10/16/2021 Transcribed Document [facility] [place] Family Medicine [address] [place] [address] ProviderJailyn MD [address] [place] [address] Social History Tobacco Use Types [...] Date Ata rded Speak language other than Maldivian at home Not on file 05/13/2023 Want [...] lower motor neuron process.. Integumentary: Warm, Dry, [place]. Neurologic: Alert, Oriented, Cranial Nerves II-XII are [...] the setting of recent varicella. Disposition: Pending law firm consultant recommendations and plan. May need rehab [...] Lymph # 3.37 K/uL 10/16/2021 04:00 EDT [place] % 19.5 % (High) 10/16/2021 04:00 EDT [place] # 2.25 K/uL (High) 10/16/2021 04:00 EDT [...] ng/mL 10/16/2021 04:00 EDT Electronically signed by [facility], [facility] Conversion Product Safety Compliance Leader Cerner at 08/17/2022 6:11 PM CDT documented in this encounter Plan of Treatment Not on file documented as of this encounter Visit Diagnoses Not on filedocumented in this encounter Care Teams Unit Clerk Relationship Specialty Start Date End Date Eladio Lomas MD 12[address] [facility] [address] [place] [address] Medical Oncologist Hematology and Oncology 07/08/22 Breanna Crow, PA-C [address] [place] [address] Physician Film Spooler Oncology 07/08/22 documented as of this encounter
--- OUTSIDE RECORDS SUMMARY | 2024-11-29 09:55 | XMS_ITS | Encounter Summary ---
Author Organization [employer] ([place], [place], [place], [place]) Address [address] [place] [address] Care Team Providers Care Automation Sales Manager Name Role Phone Eladio Lomas MD Unavailable Breanna Crow PA-C Unavailable [phone] Encounter Details Date Type Department Care Team (Late st Contact Info) Description 10/16/2021 Transcribed Document [facility] [place] Family Medicine [address] [place] [address] ProviderJailyn MD [address] [place] [address] Social History Tobacco Use [...] often do you attend chur ch or presybeterian services? Never 07/08/2022 Do you belong to [...] Date Ata rded Speak language other than Montserratian at home Not on file 05/13/2023 Want [...] - 10/16/2021 14:27 EDT Electronically signed by [facility], [facility] Conversion Head Of Insight Cerner at 08/17/2022 6:05 PM CDT documented in this encounter Plan of Treatment Not on file documented as of this encounter Visit Diagnoses Not on filedocumented in this encounter Care Teams Automation Sales Manager Relationship Specialty Start Date End Date Eladio Lomas MD 1210 [facility] [address] [place] [address] Medical Oncologist Hematology and Oncology 07/08/22 Breanna Crow, PACecilia [address] [facility] [address] [place] [address] Physician Interactive Media Designer Oncology 07/08/22 documented as of this encounter
--- OUTSIDE RECORDS SUMMARY | 2024-11-29 09:55 | XMS_ITS | Encounter Summary ---
Author Organization [employer] ([place], [place], [place], [place]) Address [address] [place] [address] Care Team Providers Care Scroll Shear Operator Name Role Phone Eladio Lomas MD Unavailable Breanna Crow PA-C Unavailable [phone] Encounter Details Date Type Department Care Team (Late st Contact Info) Description 12/29/2021 Transcribed Document [facility] [place] [address] [place] [address] ProviderJailyn MD [address] [place] [address] Social History Tobacco Use Types [...] any clubs o r organizations such as restorationist groups, unions, fraternal or athletic groups, or [...] Date Ata rded Speak language other than Hungarian at home Not on file 05/13/2023 Want [...] 12/29/2021 10:30 EDT Electronically signed by Huy [facility] Conversion Ophthalmic Photographer Cerner at 08/17/2022 6:19 PM CDT documented in this encounter Plan of Treatment Not on file documented as of this encounter Visit Diagnoses Not on filedocumented in this encounter Care Teams Scroll Shear Operator Relationship Specialty Start Date End Date Eladio Lomas MD 1210 [facility] [address] [address] Medical Oncologist Hematology and Oncology 07/08/22 Breanna Crow, PA-C [address] [facility] [address] [place] [address] Physician Toggler Oncology 07/08/22 documented as of this encounter
--- OUTSIDE RECORDS SUMMARY | 2024-11-29 09:55 | XMS_ITS | Encounter Summary ---
Author Organization [employer] ([place], [place], [place], [place]) Address [address] [place] [address] Care Team Providers Care Risk Consultant Name Role Phone Eladio Lomas MD Unavailable Breanna Crow PA-C Unavailable [phone] Encounter Details Date Type Department Care Team (Late st Contact Info) Description 10/19/2021 Transcribed Document [facility] [address] [place] [address] ProviderJailyn MD [address] [place] [address] Social History Tobacco Use Types [...] Health Plan: [employer] CHOICE PPO Policy Number: [id number] Authorization Number: Insurance Primary Name : [employer] CHOICE PPO [id number] Authorization Status-Primary : Awaiting callback Reference Number-Primary : [id number] Authorized Service Begin Date-Primary : 10/15/2021 EDT Authorization Comments-Primary : [employer] CHOICE PPO auth still pending per availity Historical Authorization Comments-Primary : Comment 1: Clinicals faxed via [employer] (Natalie Lauren, Rn-Utilization Review 10/15/2021 09:30) Comment 2: [employer] CHOICE PPO auth pending per Star note. (JUANITA HUGO, RN-Utilization Review 10/15/2021 09:18) JUANITA HUGO RN-Utilization Review - 10/19/2021 11:01 EDT documented in this encounter Plan of Treatment Not on file documented as of this encounter Visit Diagnoses Not on filedocumented in this encounter Care Teams Risk Consultant Relationship Specialty Start Date End Date Eladio Lomas MD 1210 [facility] [address] [place] [address] Medical Oncologist Hematology and Oncology 07/08/22 Breanna Crow PA-C [address] [facility] [address] [place] [address] Physician Esl Teacher Oncology 07/08/22 documented as of this encounter
--- OUTSIDE RECORDS SUMMARY | 2024-11-29 09:55 | XMS_ITS | Encounter Summary ---
Author Organization [employer] ([place], [place], [place], [place]) Address [address] [place] [address] Care Team Providers Care Depot Manager Name Role Phone Eladio Lomas MD Unavailable Breanna Crow PA-C Unavailable [phone] Encounter Details Date Type Department Care Team (Late st Contact Info) Description 12/29/2021 Transcribed Document [facility] Family Medicine [address] [place] [address] ProviderJailyn MD [address] [place] [address] Social History Tobacco Use Types [...] Source : Stated Height Entry Format : [place] Height, Feet : 5 ft(Converted to: 152 cm, 60 Inch) Height, Inches : 6 Inch(Converted to: 0 ft 6 Inch, 15.24 cm) Clinical Height : 167.64 cm Weight Source : Standing scale Weight Entry Format : [place] Clinical Dosing Weight : 72.73 kg Weight, Pounds : 160 lb Body Surface Area (BSA) : 1.82 m2 Body Mass Index : 25.9 kg/m2 (HI) [place] Body Weight : 63 kg JOSELINE MIRAMONTES [...] JOSELINE MIRAMONTES RN - 12/29/2021 10:[address] [facility] Suicide Severity Rating Scale (C-SSRS) CSSRS Past [...] #2 Relationship : - Primary Language : Azerbaijani Communication Barrier : None Carder Blankets Needed : No JOSELINE MIRAMONTES RN - [...] on filedocumented in this encounter Care Teams Depot Manager Relationship Specialty Start Date End Date Eladio Lomas MD 1210 [facility] [address] [place] [address] Medical Oncologist Hematology and Oncology 07/08/22 Breanna Crow PA-C [address] [facility] [address] [place] [address] Physician Metal Fabricating Shop Helper Oncology 07/08/22 documented as of this encounter
--- OUTSIDE RECORDS SUMMARY | 2024-11-29 09:55 | XMS_ITS | Encounter Summary ---
Author Organization [employer] ([place], [place], [place], [place]) Address [address] [place] [address] Care Team Providers Care Small Business Director Name Role Phone Eladio Lomas MD Unavailable Breanna Crow PA-C Unavailable [phone] Encounter Details Date Type Department Care Team (Late st Contact Info) Description 10/18/2021 Transcribed Document [facility] [address] [place] [address] ProviderJailyn MD [address] [place] [address] Social History Tobacco Use Types [...] intense exercise for several days. ??? Take ggji-kdg-yrtnoso and prescription medicines only as told by [...] not known. ??? Stay hydrated, and take xlxk-psn-sitcddr and prescription medicines only as told by your health care provider. This information is not intended to replace advice given to you by your health care provider. Make sure you discuss any questions you have with your health care provider. Document Revised: 09/03/2020 Document Reviewed: 09/03/2020 KVK TEAM Patient Education ? 2020 [employer]. documented in this encounter Plan of Treatment Not on file documented as of this encounter Visit Diagnoses Not on filedocumented in this encounter Care Teams Small Business Director Relationship Specialty Start Date End Date Eladio Lomas MD 1210 [facility] [address] [place] [address] Medical Oncologist Hematology and Oncology 07/08/22 Breanna Crow PA-C [address] [facility] [address] [place] [address] Physician Software Client Architect Oncology 07/08/22 documented as of this encounter
--- OUTSIDE RECORDS SUMMARY | 2024-11-29 09:55 | XMS_ITS | Encounter Summary ---
Author Organization [employer] ([place], [place], [place], [place]) Address [address] [place] [address] Care Team Providers Care Automotive Airconditioning Mechanic Name Role Phone Eladio Lomas MD Unavailable Breanna Crow PA-C Unavailable [phone] Encounter Details Date Type Department Care Team (Late st Contact Info) Description 10/18/2021 Transcribed Document [facility] [address] [place] [address] ProviderJailyn MD [address] [place] [address] Social History Tobacco Use Types [...] often do you attend chur ch or synagogue services? Never 07/08/2022 Do you belong to [...] Historical Provider, - 10/18/2021 2:00 AM CDT Assurance Senior Manager Insurance Details Entered On: 10/18/2021 2:19 EDT Performed [...] - 10/18/2021 2:19 EDT Electronically signed by [facility], [facility] Conversion Property Claim Rep Cerner at 08/17/2022 6:13 PM CDT documented in this encounter Plan of Treatment Not on file documented as of this encounter Visit Diagnoses Not on filedocumented in this encounter Care Teams Automotive Airconditioning Mechanic Relationship Specialty Start Date End Date Eladio Lomas MD [address] [place] [address] Medical Oncologist Hematology and Oncology 07/08/22 Breanna Crow, PA-C [address] [facility] [address] [place] [address] Physician Evp Operations Oncology 07/08/22 documented as of this encounter
--- OUTSIDE RECORDS SUMMARY | 2024-11-29 09:55 | XMS_ITS | Encounter Summary ---
Author Organization [employer] ([place], [place], [place], [place]) Address [address] [place] [address] Care Team Providers Care Pricing Lead Name Role Phone Eladio Lomas MD Unavailable Breanna Crow PA-C Unavailable [phone] Encounter Details Date Type Department Care Team (Late st Contact Info) Description 10/19/2021 Transcribed Document [facility] [place] Family Medicine [address] [place] [address] ProviderJailyn MD [address] [place] [address] Social History Tobacco Use Types [...] On: 10/19/2021 13:08 EDT by KEI JEAN-BAPTISTE Senior Analyst Market Intelligence Primary Insurance Authorization Authorization and Policy Numbers : Insurance 1 Health Plan: [employer] CHOICE PPO Policy Number: [id number] Authorization Number: Insurance Primary Name : [employer] CHOICE PPO [id number] Authorization Status-Primary : Denied Reference Number-Primary : [id number] Authorized Service Begin Date-Primary : 10/15/2021 EDT [...] HUGO, RN-Utilization Review 10/15/2021 09:18) KEI JEAN-BAPTISTE, Senior Analyst Market Intelligence - 10/19/2021 13:08 EDT Electronically signed by Huy [facility] Conversion Shoe Clerk Cerner at 08/17/2022 6:16 PM CDT documented in this encounter Plan of Treatment Not on file documented as of this encounter Visit Diagnoses Not on filedocumented in this encounter Care Teams Pricing Lead Relationship Specialty Start Date End Date Eladio Lomas MD 1210 [facility] [address] [place] [address] Medical Oncologist Hematology and Oncology 07/08/22 Breanna Crow PA-C [address] [facility] [address] [place] [address] Physician Drop Machine Operator Oncology 07/08/22 documented as of this encounter
--- OUTSIDE RECORDS SUMMARY | 2024-11-29 09:55 | XMS_ITS | Encounter Summary ---
Author Organization [employer] ([place], [place], [place], [place]) Address [address] [place] [address] Care Team Providers Care Food Order Expediter Name Role Phone Eladio Lomas MD Unavailable Breanna Crow PA-C Unavailable [phone] Encounter Details Date Type Department Care Team (Late st Contact Info) Description 10/16/2021 Transcribed Document [facility] [place] [address] [place] [address] ProviderJailyn MD [address] [place] [address] Social History Tobacco Use [...] any clubs o r organizations such as hinduism groups, unions, fraternal or athletic groups, or [...] On: 10/16/2021 15:13 EDT by Jessica Rivera, [facility] Unit Coord Phone Call for Consults Consult Phone Call/Page Attempt : First call Physician Covering for Consult : TRENA DONAHUE MD-INF Consult, Additional Information : Consult called in to Dr. Trena Donahue, he stated that if Dr Edwin Carver had not seen them today, he would see them tomorrow Jessica Rivera, [facility] Coord - 10/16/2021 17:43 EDT documented in this encounter Plan of Treatment Not on file documented as of this encounter Visit Diagnoses Not on filedocumented in this encounter Care Teams Food Order Expediter Relationship Specialty Start Date End Date Eladio Lomas MD [address] [address] Medical Oncologist Hematology and Oncology 07/08/22 Breanna Crwo, PA-C [address] [place] [address] [address] [place] [address] Physician Custom Feed Mill Operator Oncology 07/08/22 documented as of this encounter
--- OUTSIDE RECORDS SUMMARY | 2024-11-29 09:55 | XMS_ITS | Encounter Summary ---
Author Organization [employer] ([place], [place], [place], [place]) Address [address] [place] [address] Care Team Providers Care Pairer Substandard Name Role Phone Eladio Lomas MD Unavailable Breanna Crow PA-C Unavailable [phone] Encounter Details Date Type Department Care Team (Late st Contact Info) Description 10/20/2021 Transcribed Document [facility] [place] [address] [place] [address] ProviderJailyn MD [address] [place] [address] Social History Tobacco Use Types [...] Health Plan: [employer] CHOICE PPO Policy Number: [id number] Authorization Number: Insurance Primary Name : [employer] CHOICE PPO [id number] Authorization Status-Primary : Denied Reference Number-Primary : [id number] Authorized Service Begin Date-Primary : 10/15/2021 EDT Authorization Comments-Primary : Emailed denial to [employer] Historical Authorization Comments-Primary : Comment 1: Rec faxed Denial from [employer] 10/19/21 Placed in tray on [employer] desk (KEI JEAN-BAPTISTE, Cardiac Rehabilitation Program Director 10/19/2021 13:08) Comment 2: HU[employer] CHOICE PPO [...] on filedocumented in this encounter Care Teams Pairer Substandard Relationship Specialty Start Date End Date Eladio Lomas MD 1210 [facility] [address] [place] [address] Medical Oncologist Hematology and Oncology 07/08/22 Breanna Crow PA-C [address] [facility] [address] [place] [address] Physician Boat Carpenter Mechanic Oncology 07/08/22 documented as of this encounter
--- NOTE | 2024-11-29 09:58 | PC.NURSE ---
0958-collected labs via venipuncture stick in right ac; pt to d/c home.
[2024-11-29 10:16] LABS: Hematocrit 32.4 % (42.0-52.0); Hemoglobin 9.8 g/dL (14.1-18.0); Immature Granulocytes % 0.1 %; Mean Corpuscular HGB Conc 30.2 g/dL (31.8-35.4); Mean Corpuscular Hemoglobin 31.3 pg (27.0-31.2); Mean Corpuscular Volume 103.5 fl (80-94); Nucleated Red Blood Cells % 0 %; Platelet Count 179 K/mm3 (142-424); Red Blood Count 3.13 M/mm3 (4.60-6.20); Red Cell Distribution Width-SD 55.7 fL
[2024-11-29 10:37] LABS: Albumin Level 3.4 g/dl (3.5-5.0); Chloride 102 mmol/L (98-107); Potassium 4.6 mmoL/L (3.5-5.1); Sodium 138 mmol/L (136-145)
[2024-11-29 10:40] LABS: Alanine Aminotransferase 17 U/L (12-78); Albumin/Globulin Ratio 1.2 (1.1-1.8); Alkaline Phosphatase 78 U/L (38-126); Anion Gap 8.6 mEq/L (5-15); Aspartate Amino Transferase 25 U/L (17-59); Bilirubin,Total 0.2 mg/dl (0.2-1.3); Blood Urea Nitrogen 17 mg/dl (9-20); Carbon Dioxide 32 mmol/L (22.0-30.0); Creatinine,Serum 0.90 mg/dl (0.66-1.25); Estimated Glomerular Filt Rate 82 ml/min (>60); GFR (African American) 99 ML/MIN (>60); Globulin 2.8 g/dL (1.3-3.2); Total Protein,Serum 6.2 g/dl (6.3-8.2)
[2024-11-29 10:41] LABS: Calcium 9.4 mg/dl (8.4-10.2); Glucose 73 mg/dl (74-100)
[2024-11-29 10:44] LABS: White Blood Count 60.7 K/mm3 (4.8-10.8)
[2024-11-29 11:38] LABS: RBC Morphology Normal; Total Cells Counted 100
--- NOTE | 2024-11-29 13:52 | ECG_ITS ---
APPROVED REPORT Exam: Resting ECG HR:74 bpm ECG Measurements Heart Rate 74 AXES MN 171 P 37 QRSd 84 QRS 48 QT 353 T 32 QTc 380 Conclusion SINUS RHYTHM Late R wave progression - old finding ABNORMAL ECG UNCONFIRMED REPORT Electronically signed by : Jeronimo Anand MD 12/01/2024 08:49:05
== END 2024-11-29 10:00 | disposition home or self-care (01) ==
PROVIDERS: PCP Family Medicine; Visit Provider Internal Medicine Medical Oncology
DX: C91.12 Chronic lymphocytic leukemia of B-cell type in relapse (principal)
CPT/HCPCS: 36415; 80053; 83615; 85007; 85025; 85027; 93005

== ENCOUNTER 2024-12-07 10:32 | Outpatient (CLI) | payer MEDICARE, SELFPAY ==
--- NOTE | 2024-12-07 10:35 | PC.NURSE ---
1035-collected labs via venipuncture stick in right ac with butterfly needle;pt to d/c to oncology appt.
--- OUTSIDE RECORDS SUMMARY | 2024-12-07 10:37 | XMS_ITS | Clinical Summary ---
Author Organization [facility] Address [address] [facility] [address] [place] [address] Phone Care Team Providers Care Software Test Developer Name Role Phone Godfrey ALFARO, José Miguel Michaels [facility] [ ] Conditions or Problems Problem Name Problem Code Onset Date Status Entry Date Provider Comment Standard Description Annotate Acute DVT of leg, right 947015709 (SNOMED CT) Active José Miguel Donahue MD Deep venous thrombosis of lower extremity Health advice, education, or counseling 343178258 (SNOMED CT) Active José Miguel Donahue MD Procedure carried out on subject PERSONAL HISTORY OF IMMUNOSUPPRES PILLO THERAPY 567522733 (SNOMED CT) 12/10 Active 12/10 José Miguel Donahue MD History of immunosuppressiv e therapy Foot drop, right 5590091 (SNOMED CT) 10/27 Active 10/27 José Miguel Donahue MD Foot-drop Benign Essential Hypertension 63410938 (SNOMED CT) 10/22 Active 10/22 Dorothy Juanpablo Benign hypertension Disseminated herpes zoster 04493562 (SNOMED CT) 10/22 Active 10/22 Dorothy Juanpablo Disseminated herpes zoster 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 10/22 Dorothy Juanpablo Leukemoid reaction Chronic lymphoid leukemia 13437541 (SNOMED CT) 10/22 Active 10/22 Dorothy Juanpablo Chronic lymphoid leukemia, disease Medications Medication Instructions Start Date Stop Date Generic Name [facility] Provider ELIQUIS 5 MG TABS twice a day apixaban 73887672211 Tonia Noland VALTREX 1 GM TABS Take 1 tablet by mouth once a day valacyclovir 17563574814 José Miguel Donahue MD ALLOPURINOL 300 MG TABS 1 tablet by mouth once a day allopurinol 03069651256 Suzanne Cope ELIQUIS 5 MG TABS 2 tablet by mouth twice a day apixaban 05039900749 Suzanne Cope PREDNISONE 10 MG TABS Take as directed prednisone 50076742408 Suzanne Cope VALTREX 500 MG TABS 2 tablet by mouth once a day valacyclovir 61946252348 Faby Donahue VALTREX 1 GM TABS Take 1 tablet by mouth once a day valacyclovir 77231223615 Faby Donahue ALLOPURINOL 300 MG TABS 1 tablet by mouth once a day allopurinol 09040387195 Marianayvette Wiggins ELIQUIS 5 MG TABS 2 tablet by mouth twice a day apixaban 75938134026 Marianayvette Wiggins Lactobacillus acidophilus 1 billion cell capsule 1 capsule by mouth twice a day lactobacillus acidophilus Mariana Wiggins MULTI-VITAMINS TABS multivitamin 30126148788 Mariana Wiggins PREDNISONE 10 MG TABS Take as directed prednisone 76908946671 Mariana Wiggins TYLENOL 325 MG TABS 2 tablet by mouth every four hours as needed acetaminophen 98210350823 Mariana Wiggins VALTREX 500 MG TABS 2 tablet by mouth once a day valacyclovir 04525309898 Mariana Rosalie Medications Administered No information available. [...] Labs CPT-sl STAT Labs CPT-sl STAT Labs CPT-05911 CMP [id number] CBC with Differential 2021 Vital Signs Date [...]
--- OUTSIDE RECORDS SUMMARY | 2024-12-07 10:38 | XMS_ITS | Encounter Summary ---
Author Organization Healthcare Address [address] [place] [address] Care Team Providers Care Research And Development Specialist Name Role Phone Per Patient, None Primary Care Provider Unavaila ble Encounter Details Date Type Department Care Team (Late st Contact Info) Description 01/07/2021 Orders Only [facility] [address] [place] [address] Maurisio Aguilar MD [address] [address] Social History Tobacco Use Types [...] External Glucose 99 74 - 100 mg/dL [facility] External BUN 16 6 - 20 mg/dL [facility] External Creatinine Blood 0.93 0.70 - 1.28 mg/dL [facility] External BUN/Creat Ratio 17 10 - 20 (calc) [facility] External Sodium 141 136 - 145 mmol/L [facility] External Potassium 4.2 3.4 - 5.0 mmol/L [facility] External Chloride 102 98 - 107 mmol/L [facility] External Carbon Dioxide 25 22 - 31 mmol/L [facility] External Anion Gap (AG) 14 7 - 25 (calc) [facility] External Calcium 9.4 8.6 - 10.2 mg/dL [facility] External Total Protein 7.0 6.4 - 8.3 g/dL [facility] External Albumin 4.8 3.5 - 5.2 g/dL [facility] External Globulin 2.2 1.5 - 4.5 g/dL (calc) [facility] External Albumin/Globulin Ratio 2.2 1.1 - 2.5 (calc) [facility] External Bilirubin Total 0.4 0.1 - 1.2 mg/dL [facility] External Alkaline Phosphatase 85 40 - 129 U/L [facility] External AST (SGOT) 22 0 - 40 U/L [facility] External ALT (SGPT) 19 0 - 41 U/L [facility] External EGFR (If AFR/AM) 94 >=60 [facility] External Estimated GFR 81 >=60 [facility] Comment: NOTE Chronic kidney disease is [...] MD LAB BLOOD ORDERABLES Final Res ult [facility] [address] [place] [address], [place] [phone] documented in this encounter Visit Diagnoses Not on filedocumented in this encounter Care Teams Research And Development Specialist Relationship Specialty Start Date End Date Per Patient, [place] [address] PCP - General 05/02/20 documented as of this encounter
--- OUTSIDE RECORDS SUMMARY | 2024-12-07 10:38 | XMS_ITS | Clinical Summary ---
Author Organization [facility] Address [address] [place] [address] Care Team Providers Care Flight Engineer Helicopter Name Role Phone Provider, No Known Primary [...] 02/05/2021, , 01/17/2020, Additional history exists Insurance [facility] MEDICARE ADVANTAGE Care Teams Flight Engineer Helicopter Relationship Specialty Start Date End Date Provider, No Known [facility] [place] [address] PCP - General 10/07/21
--- OUTSIDE RECORDS SUMMARY | 2024-12-07 10:38 | XMS_ITS | Encounter Summary ---
Author Organization Healthcare Address [address] [place] [address] Care Team Providers Care Outside Event Sales Specialist Name Role Phone Per Patient, None Primary Care Provider Unavaila ble Encounter Details Date Type Department Care Team (Late st Contact Info) Description 01/07/2021 Orders Only [email or web address] [address] [place] [address] Maurisio Aguilar MD [address] [address] Social History Tobacco Use Types [...] Band Neutrophil% 0.0 0.0 - 7.0 % [facility] External Atypical Lymph% 4(H) 0 - 1 % [facility] External Metamyelocyte % 0 0 - 1 % [facility] External Myelocyte % 0 0 - 1 % [facility] External Promyelocyte% 0 % [facility] External Blast% 0 % [facility] External Nucleated RBC%-Manual 0 /100 WBC [facility] External Smudge Cells 0 [facility] External Platelet Morphology NORMAL [facility] External Ovalocytes SLIGHT(A) [facility] External Tear Drop Cells SLIGHT(A) [facility] 01/07/2021 10:0 5 AM EDT 01/07/2021 10:20 AM EDT us Maurisio Aguilar MD LAB BLOOD ORDERABLES Final Res ult Performing Organization Address City/State/[facility] Co de Phone Number [facility] [address] [place] [address], documented in this encounter Visit Diagnoses Not on filedocumented in this encounter Care Teams Outside Event Sales Specialist Relationship Specialty Start Date End Date Per Patient, [place] [address] PCP - General 05/02/20 documented as of this encounter
--- OUTSIDE RECORDS SUMMARY | 2024-12-07 10:38 | XMS_ITS | Encounter Summary ---
Author Organization [facility] Address [address] [place] [id number] Care Team Providers Care Vp Marketing Name Role Phone Per Patient, None Primary Care Provider Unavaila ble Encounter Details Date Type Department Care Team ([facility] st Contact Info) Description 10/08/2021 Lab Requisition [facility] [address] [place] [address] Maurice Power MD [facility] [place] [address] Unspecified lesions of oral mucosa [...] billing purposes only. 10/26/2021 7:22 AM EDT [facility] at 0722 EDT Case Report Surgical Pathology Report Case: [id number] Authorizing Provider: Maurice Power MD Collected: 10/08/2021 Ordering Location: [facility] Received: 10/08/2021 4133 Pathologist: Cindy Flores MD Specimen: [id number] 10/26/2021 7:22 AM EDT [facility] Tissue 10/08/2021 10/08/2021 4:5 9 PM EDT us Maurice Power MD LAB PATHOLOGY ORDERABLES Final Result [facility] [address] [place] [address] documented in this encounter Visit Diagnoses Diagnosis Unspecified lesions of oral mucosa documented in this encounter Care Teams Vp Marketing Relationship Specialty Start Date End Date Per Patient, [place] [address] PCP - General 05/02/20 documented as of this encounter
--- OUTSIDE RECORDS SUMMARY | 2024-12-07 10:38 | XMS_ITS | Encounter Summary ---
Author Organization Healthcare Address [address] [place] [address] Care Team Providers Care Headliner Installer Name Role Phone Per Patient, None Primary Care Provider Unavaila ble Encounter Details Date Type Department Care Team (Late st Contact Info) Description 01/07/2021 Orders Only [facility] [address] [place] [address] Maurisio Aguilar MD [address] [address] Social History Tobacco Use Types [...] External WBC 6.9 3.8 - 10.8 K/uL [facility] External Red Blood Cell (RBC) 5.24 4.20 - 5.80 M/uL [facility] External Hemoglobin 15.5 14.0 - 18.0 G/DL [facility] External Hematocrit 44.1 40.0 - 52.0 % [facility] External MCV 84 80 - 100 fL [facility] External MCH 30 26 - 35 PG [facility] External MCHC 35 32 - 36 G/DL [facility] External RDW 13.5 11.0 - 15.0 % [facility] External Mean Platelet Volume 7.6 6.2 - 10.5 fL [facility] External Platelets 162 130 - 400 K/uL [facility] External Neutrophil# 3.0 1.6 - 8.4 K/uL [facility] External Lymphocyte# 3.2 0.4 - 5.1 K/uL [facility] External Absolute Monocyte (Abs [place]) 0.4 0.0 - 1.2 K/uL [facility] External Eosinophils# 0.1 0.0 - 0.8 K/uL [facility] External Baso# 0.0 0.0 - 0.3 K/uL [facility] External Neutrophils % 43.0 42.0 - 78.0 % [facility] External Lymphocyte % 46.0 11.0 - 47.0 % [facility] External Monocyte % 6.0 0.0 - 11.0 % [facility] External Eosinophil% 1.0 0.0 - 7.0 % [facility] External Basophil % 0.0 0.0 - 3.0 % [facility] External Nucleated RBC%-Auto 0.2 0.0 - 0.9 % [facility] External Nucleated RBC Absolute 0.01 Not Estab. K/uL [facility] 01/07/2021 10:0 5 AM EDT 01/07/2021 10:20 AM EDT us Maurisio Aguilar MD LAB BLOOD ORDERABLES Final Res ult Performing Organization Address City/State/[facility] Co de Phone Number [facility] [address] [place] [id number], documented in this encounter Visit Diagnoses Not on filedocumented in this encounter Care Teams Headliner Installer Relationship Specialty Start Date End Date Per Patient, [place] [address] PCP - General 05/02/20 documented as of this encounter
--- OUTSIDE RECORDS SUMMARY | 2024-12-07 10:38 | XMS_ITS | Clinical Summary ---
Author Organization [facility] Address [address] [place] [address] Care Team Providers Care Muck Operator Name Role Phone Per Patient, None [...] Screening 1950 [facility]-Medicare Annual Wellness (AWV) 1948 [facility]-Infant/Child/Adol SDOH Screenings 1950 [facility]- SDOH Screenings 01/05/1966 [facility]-Adult SDOH Screenings 01/05/1966 [facility]-DTaP,Tdap,and Td Vaccines (1 - Tdap) 01/05/1967 [facility]-Pneumococcal Vaccine: 50+ Years (1 of 1 - PCV) 01/05/1998 [facility]-Zoster Vaccines (1 of 2) 01/05/1998 [facility]-RSV Vaccine: 60+ Years or (1 - 1-dose 75+ series) 01/05/2023 [id number] Vaccine ( - 2023- season) 2024 07/25/2020, [...] this topic Insurance [employer] MEDICARE Care Teams Muck Operator Relationship Specialty Start Date End Date Per Patient, [place] [address] PCP - General 05/02/20
[2024-12-07 10:48] LABS: Hematocrit 28.8 % (42.0-52.0); Hemoglobin 9.0 g/dL (14.1-18.0); Mean Corpuscular HGB Conc 31.3 g/dL (31.8-35.4); Mean Corpuscular Hemoglobin 31.9 pg (27.0-31.2); Mean Corpuscular Volume 102.1 fl (80-94); Platelet Count 135 K/mm3 (142-424); Red Blood Count 2.82 M/mm3 (4.60-6.20); White Blood Count 20.0 K/mm3 (4.8-10.8)
[2024-12-07 11:14] LABS: Alanine Aminotransferase 25 U/L (12-78); Albumin Level 3.8 g/dl (3.5-5.0); Albumin/Globulin Ratio 2.0 (1.1-1.8); Alkaline Phosphatase 86 U/L (38-126); Amylase 60 U/L (30-110); Anion Gap 9.8 mEq/L (5-15); Aspartate Amino Transferase 28 U/L (17-59); Bilirubin,Total 0.7 mg/dl (0.2-1.3); Blood Urea Nitrogen 21 mg/dl (9-20); Calcium 8.9 mg/dl (8.4-10.2); Carbon Dioxide 27 mmol/L (22.0-30.0); Chloride 103 mmol/L (98-107); Creatinine,Serum 1.10 mg/dl (0.66-1.25); Estimated Glomerular Filt Rate 65 ml/min (>60); GFR (African American) 79 ML/MIN (>60); Globulin 1.9 g/dL (1.3-3.2); Glucose 145 mg/dl (74-100); Lipase 26 U/L (23-300); Potassium 3.8 mmoL/L (3.5-5.1); Sodium 136 mmol/L (136-145); Total Protein,Serum 5.7 g/dl (6.3-8.2)
[2024-12-07 11:16] LABS: RBC Morphology Normal; Total Cells Counted 100
--- NOTE | 2024-12-07 13:00 | CT_ITS ---
FINAL REPORT TECHNIQUE: Axial images through the abdomen and pelvis were performed without contrast. This study was performed with techniques to keep radiation doses as low as reasonably achievable, (ALARA). Individualized dose reduction techniques using automated exposure control or adjustment of mA and/or kV according to the patient's size were employed. CLINICAL HISTORY: stomach pain, concern for bleeding COMPARISON: 07/29/2024 FINDINGS: Abdomen: Scarring is noted at the right lung base. There is moderate hepatosplenomegaly with the spleen measuring 15.7 cm in craniocaudal dimension. There is a multitude of mesenteric lymph nodes. Individual nodes have decreased in size compared to the prior exam. For example, a traffic representative left para-aortic lymph node previously measured 3.4 cm in maximum dimension and now measures 2.8 cm greatest dimension. The pancreas is unremarkable. There is bilateral adrenal hyperplasia. Calcification within the right adrenal gland is stable. The kidneys are unremarkable. Pelvis: The urinary bladder is incompletely distended. The appendix is not clearly visualized. There is no pelvic mass or inflammation. IMPRESSION: Hepatosplenomegaly, similar to the prior study. Extensive mesenteric and retroperitoneal adenopathy is slightly improved compared to the prior exam. No evidence of hematoma. Reviewed, Interpreted and Dictated by Mario Bertrand MD Transcribed by Cindy Luna Authenticated and [facility]
== END 2024-12-07 10:40 | disposition home or self-care (01) ==
PROVIDERS: PCP Family Medicine; Visit Provider Internal Medicine Medical Oncology
DX: C91.12 Chronic lymphocytic leukemia of B-cell type in relapse (principal)
CPT/HCPCS: 36415; 74176; 80053; 82150; 83690; 85007; 85014; 85018; 85048; 85049

== ENCOUNTER 2024-12-11 10:24 | Emergency (ER) | payer MEDICARE, SELFPAY ==
[2024-12-11] VITALS (10 sets, daily range): BP systolic 93–118; BP diastolic 43–58; PULSE 73–96; RESP 16–18; TEMP 37.2–38.2; O2SAT 95–97; BMI 22.6
--- NOTE | 2024-12-11 10:29 | ECG_ITS ---
APPROVED REPORT Exam: Resting ECG HR:94 bpm ECG Measurements Heart Rate 94 AXES NE 166 P 31 QRSd 92 QRS -3 QT 314 T 55 QTc 366 Conclusion SINUS RHYTHM NORMAL ECG UNCONFIRMED REPORT Electronically signed by : Cristo Paz, 12/12/2024 15:49:54
--- NOTE | 2024-12-11 10:31 | PC.NURSE ---
Patients FSBS is 101.
--- OUTSIDE RECORDS SUMMARY | 2024-12-11 10:34 | XMS_ITS | Clinical Summary ---
Author Organization [employer] ([place], [place], [place], [place]) Address [address] [place] [address] Care Team Providers Care Human Services Care Specialist Name Role Phone Eladio Lomas MD Unavailable Breanna Crow PA-C Unavailable Allergies Active Allergy Reactions Criticality Noted Date [...] exists Pneumococcal 50+ years Completed 02/09/2022 Insurance [employer] MEDICARE PPO [employer] MEDICARE PPO Care Teams Human Services Care Specialist Relationship Specialty Start Date End Date Eladio Lomas MD [address] [facility] [address] [place] [address] Medical Oncologist Hematology and Oncology 07/08/22 Breanna Crow PARebelC [address] [facility] [address] [place] [address] Physician Sand Cutter Operator Oncology 07/08/22
--- OUTSIDE RECORDS SUMMARY | 2024-12-11 10:34 | XMS_ITS | Encounter Summary ---
Author Organization [employer] ([place], [place], [place], [place]) Address [address] [place] [address] Care Team Providers Care Independent Marketing Consultant Name Role Phone Eladio oLmas MD Unavailable Breanna Crow PA-C Unavailable [phone] Encounter Details Date Type Department Care Team (Late st Contact Info) Description 10/17/2021 Transcribed Document [facility] [address] [place] [address] ProviderJailyn MD [address] [place] [address] Social History Tobacco Use Types [...] to fall prompting him to come to [facility] on 10/15. He was admitted for concerns of Claudia [place] Syndrome. A CT scan of lumbar spine [...] with pancreatic cancer SH: , lives in [place], [place]. Former remotes smoker, denies alcohol, or [...] 247 (CINDI 17) 256 (CINDI 16) 238 (CINID 16) Na 144 (CINDI 18) 140 (CINDI [...] None Rad: Radiology Results (Last 48 hours) [id number] -- 10/15/2021 03:06 MRI Spine Thoracic WO [...] Dr. Trena Donahue. Electronically signed by [facility] Conversion Bacteriologist Medical Cerner at 08/17/2022 6:00 PM CDT documented in this encounter Plan of Treatment Not on file documented as of this encounter Visit Diagnoses Not on filedocumented in this encounter Care Teams Independent Marketing Consultant Relationship Specialty Start Date End Date Eladio Lomas MD [address] [facility] [address] [place] [address] Medical Oncologist Hematology and Oncology 07/08/22 Breanna Crow PA-C [address] [facility] [address] [place] [address] Physician Printer Helper Oncology 07/08/22 documented as of this encounter
--- OUTSIDE RECORDS SUMMARY | 2024-12-11 10:34 | XMS_ITS | Encounter Summary ---
Author Organization [facility] ([place], [place], [place], [place]) Address [address] [place] [address] Care Team Providers Care K 8 School Principal Name Role Phone Eladio Lomas MD Unavailable Breanna Crow PA-C Unavailable [phone] Encounter Details Date Type Department Care Team (Late st Contact Info) Description 10/17/2021 Transcribed Document [facility] Medicine [address] [place] [address] ProviderJailyn MD [address] [place] [address] Social History Tobacco Use Types [...] Date Ata rded Speak language other than Nepalese at home Not on file 05/13/2023 Want [...] Historical Provider, - 10/17/2021 2:00 AM CDT Mail Technician Details Entered On: 10/17/2021 5:10 EDT Performed [...] - 10/17/2021 5:09 EDT Electronically signed by [facility] Conversion Bun Panner Cerner at 08/17/2022 6:17 PM CDT documented in this encounter Plan of Treatment Not on file documented as of this encounter Visit Diagnoses Not on filedocumented in this encounter Care Teams [employer] School Principal Relationship Specialty Start Date End Date Eladio Lomas MD [address] [place] [address] Medical Oncologist Hematology and Oncology 07/08/22 Breanna Crow, PA-C [address] [facility] [address] [place] [address] Physician Senior It Project Manager Oncology 07/08/22 documented as of this encounter
--- OUTSIDE RECORDS SUMMARY | 2024-12-11 10:34 | XMS_ITS | Encounter Summary ---
Author Organization [facility] Address [address] [place] [id number] Care Team Providers Care Soils Analyst Name Role Phone Per Patient, None Primary Care Provider Unavaila ble Encounter Details Date Type Department Care Team ([facility] st Contact Info) Description 10/08/2021 Lab Requisition [facility] [address] [place] [address] Maurice Power MD [facility] [place] [address] Unspecified lesions of oral mucosa [...] billing purposes only. 10/26/2021 7:22 AM EDT [facility] at 0722 EDT Case Report Surgical Pathology Report Case: [id number] Authorizing Provider: Maurice Power MD Collected: 10/08/2021 Ordering Location: [facility] Received: 10/08/2021 2318 Pathologist: Cindy Flores MD Specimen: [id number] 10/26/2021 7:22 AM EDT [facility] Tissue 10/08/2021 10/08/2021 4:5 9 PM EDT us Maurice Power MD LAB PATHOLOGY ORDERABLES Final Result [facility] [address] [place] [address] documented in this encounter Visit Diagnoses Diagnosis Unspecified lesions of oral mucosa documented in this encounter Care Teams Soils Analyst Relationship Specialty Start Date End Date Per Patient, [place] [address] PCP - General 05/02/20 documented as of this encounter
--- OUTSIDE RECORDS SUMMARY | 2024-12-11 10:34 | XMS_ITS | Clinical Summary ---
Author Organization [facility] Address [address] [place] [address] Care Team Providers Care Machine Silver Stripper Name Role Phone Per Patient, None Primary [...] or (1 - 1-dose 75+ series) 01/05/2023 [id number] Vaccine ( - 2023- season) 2024 07/25/2020, [...] to complete this topic [place] [address] Care Teams Machine Silver Stripper Relationship Specialty Start Date End Date Per Patient, [place] [address] PCP - General 05/02/20
--- OUTSIDE RECORDS SUMMARY | 2024-12-11 10:34 | XMS_ITS | Encounter Summary ---
Author Organization [employer] ([place], [place], [place], [place]) Address [address] [place] [address] Care Team Providers Care Air Traffic Control Supervisor Name Role Phone Eladio Lomas MD Unavailable Breanna Crow PA-C Unavailable [phone] Encounter Details Date Type Department Care Team (Late st Contact Info) Description 10/17/2021 Transcribed Document [facility] [address] [place] [address] ProviderJailyn MD [address] [place] [address] Social History Tobacco Use Types [...] to assume that as it was a agricultural labor camp manager who did the biopsy, and and told [...] At risk for sleep apnea / [id number] [id number] / Confirmed, Active Problems (2) At risk for sleep apnea Mitral valve prolapse documented in this encounter Plan of Treatment Not on file documented as of this encounter Visit Diagnoses Not on filedocumented in this encounter Care Teams Air Traffic Control Supervisor Relationship Specialty Start Date End Date Eladio Lomas MD [address] [facility] [address] [place] [address] Medical Oncologist Hematology and Oncology 07/08/22 Breanna Crow PA-C [address] [address] Physician Information Strategist Oncology 07/08/22 documented as of this encounter
--- OUTSIDE RECORDS SUMMARY | 2024-12-11 10:34 | XMS_ITS | Encounter Summary ---
Author Organization [employer] ([place], [place], [place], [place]) Address [address] [place] [address] Care Team Providers Care Wildlife Rehabilitator Name Role Phone Eladio Lomas MD Unavailable Breanna Crow PA-C Unavailable [phone] Encounter Details Date Type Department Care Team (Late st Contact Info) Description 10/17/2021 Transcribed Document [facility] Family Medicine [address] [place] [address] ProviderJailyn MD [address] [place] [address] Social History Tobacco Use Types [...] Date Ata rded Speak language other than [place] at home Not on file 05/13/2023 Want [...] # 4.35 K/uL (High) 10/17/2021 02:21 EDT [place] % 15.2 % (High) 10/17/2021 02:21 EDT [place] # 2.14 K/uL (High) 10/17/2021 02:21 EDT [...] on filedocumented in this encounter Care Teams Wildlife Rehabilitator Relationship Specialty Start Date End Date Eladio Lomas MD 12[address] [facility] [address] [place] [address] Medical Oncologist Hematology and Oncology 07/08/22 Breanna Crow PA-C [address] [facility] [address] [place] [address] Physician Vessel Engineer Oncology 07/08/22 documented as of this encounter
--- OUTSIDE RECORDS SUMMARY | 2024-12-11 10:34 | XMS_ITS | Encounter Summary ---
Author Organization [employer] ([place], [place], [place], [place]) Address [address] [place] [address] Care Team Providers Care Staffing Recruiter Name Role Phone Eladio Lomas MD Unavailable Breanna Crow PA-C Unavailable [phone] Encounter Details Date Type Department Care Team (Late st Contact Info) Description 10/17/2021 Transcribed Document [facility] [place] [facility] Family Medicine [address] [place] [address] ProviderJailyn MD [address] [place] [address] Social History Tobacco Use Types [...] 10/17/2021 5:08 EDT Electronically signed by [facility] Conversion Brush Painter Cerner at 08/17/2022 6:00 PM CDT documented in this encounter Plan of Treatment Not on file documented as of this encounter Visit Diagnoses Not on filedocumented in this encounter Care Teams Staffing Recruiter Relationship Specialty Start Date End Date Eladio Lomas MD [address] [facility] [address] [place] [address] Medical Oncologist Hematology and Oncology 07/08/22 Breanna Crow PA-C [address] [facility] [address] [place] [address] Physician Social Professionals Oncology 07/08/22 documented as of this encounter
--- NOTE | 2024-12-11 10:35 | PC.NURSE ---
DR MOBLEY AT BEDSIDE
--- OUTSIDE RECORDS SUMMARY | 2024-12-11 10:35 | XMS_ITS | Encounter Summary ---
Author Organization [employer] ([place], [place], [place], [place]) Address [address] [place] [address] Care Team Providers Care Cafeteria Operator Name Role Phone Eladio Lomas MD Unavailable Breanna Crow PA-C Unavailable [phone] Encounter Details Date Type Department Care Team (Late st Contact Info) Description 10/15/2021 Transcribed Document [facility] [place] [address] [place] [address] ProviderJailyn MD [address] [place], [...] on filedocumented in this encounter Care Teams Cafeteria Operator Relationship Specialty Start Date End Date Eladio Lomas MD 12[address] [facility] [address] [place] [address] Medical Oncologist Hematology and Oncology 07/08/22 Breanna Crow PA-C [address] [address] Physician Regulatory Affairs Intern Oncology 07/08/22 documented as of this encounter
--- OUTSIDE RECORDS SUMMARY | 2024-12-11 10:35 | XMS_ITS | Encounter Summary ---
Author Organization [employer] ([place], [place], [place], [place]) Address [address] [place] [address] Care Team Providers Care Telesales Team Leader Name Role Phone Eladio Lomas MD Unavailable Breanna Crow PA-C Unavailable [phone] Encounter Details Date Type Department Care Team (Late st Contact Info) Description 10/15/2021 Transcribed Document [facility] [place] [address] [place] [address] ProviderJailyn MD [address] [place] [address] Social History Tobacco Use Types [...] On: 10/15/2021 12:50 EDT by Miladys Carter, [facility] Coord Phone Call for Consults Consult Reason : spine for right L5 radiculopathy causing foot drop Physician Requesting Consult : ROMERO INGRAM MD-SERENE Physician Requested for Consult : SHARON PATRICIO MD-ORT Date and Time Call Returned : 10/15/2021 14:40 EDT Consult, Additional Information : Spoke with Dr. Rosenberg on the phone concerning the consult. Miladys Carter, [facility] Coord - 10/15/2021 14:41 EDT Electronically signed by [facility], [facility] Conversion Assistant Guest Services Manager Cerner at 08/17/2022 5:55 PM CDT documented in this encounter Plan of Treatment Not on file documented as of this encounter Visit Diagnoses Not on filedocumented in this encounter Care Teams Telesales Team Leader Relationship Specialty Start Date End Date Eladio Lomas MD [address] [facility] [address] [place] [address] Medical Oncologist Hematology and Oncology 07/08/22 Breanna Crow PACecilia [address] [facility] [address] [place] [address] Physician Unit Secretary Oncology 07/08/22 documented as of this encounter
--- OUTSIDE RECORDS SUMMARY | 2024-12-11 10:35 | XMS_ITS | Encounter Summary ---
Author Organization [employer] ([place], [place], [place], [place]) Address [address] [place] [address] Care Team Providers Care Manager Ethics Name Role Phone Eladio Lomas MD Unavailable Breanna Crow PA-C Unavailable [phone] Encounter Details Date Type Department Care Team (Late st Contact Info) Description 10/14/2021 Transcribed Document [facility] [place] Family Medicine [address] [place] [address] ProviderJailyn MD [address] [place] [address] Social History Tobacco Use Types [...] Historical Provider, - 10/14/2021 6:20 PM CDT [place] Suicide Severity Rating Scale (C-SSRS) Entered On: 10/14/2021 18:34 EDT Performed On: 10/14/2021 18:33 EDT by UGO FAN, RN [place] Suicide Severity Rating Scale (C-SSRS) CSSRS Past Month Wish to be : No CSSRS Past Month Suicidal Thoughts : No CSSRS Lifetime Suicide Behavior : No Suicide Severity Rating Score : 0 Suicide Severity Rating : No Additional Care Required at this time Thoughts of Harming/Killing Others : No UGO FAN RN - 10/14/2021 18:33 EDT Electronically signed by Huy [facility] Conversion Barge Loader Cerner at 08/17/2022 5:56 PM CDT documented in this encounter Plan of Treatment Not on file documented as of this encounter Visit Diagnoses Not on filedocumented in this encounter Care Teams Manager Ethics Relationship Specialty Start Date End Date Eladio Lomas MD [address] [facility] [address] [address] Medical Oncologist Hematology and Oncology 07/08/22 Breanna Crow, PARebelC [address] [place] [address] Physician Plater Supervisor Oncology 07/08/22 documented as of this encounter
--- OUTSIDE RECORDS SUMMARY | 2024-12-11 10:35 | XMS_ITS | Encounter Summary ---
Author Organization [employer] ([place], [place], [place], [place]) Address [address] [place] [address] Care Team Providers Care Paint Striping Machine Operator Name Role Phone Eladio Lomas MD Unavailable Breanna Crow PA-C Unavailable [phone] Encounter Details Date Type Department Care Team (Late st Contact Info) Description 10/14/2021 Transcribed Document [facility] [place] Family Medicine [address] [place] [address] ProviderJailyn MD [address] [place] [address] Social History Tobacco Use Types [...] week. Triage Date/Time : 10/14/2021 18:31 EDT UOG FAN RN - 10/14/2021 18:31 EDT DCP GENERIC CODE Tracking Acuity : 3 - Urgent Tracking Group : [facility] ED [place] UGO FAN RN - 10/14/2021 18:31 EDT Mode of Arrival : Wheelchair Transported to ED by : Private vehicle To Room Via : Wheelchair Accompanied By : Spouse ED Vital Signs : Document Height & Weight : Document ED Allergies : Document ED Reason for Visit : Document Tetanus Immunization : Greater than 5 years Grounds Worker Needed : No UGO FAN RN - [...] EDT) Problems(Active) Mitral valve prolapse (SNOMED CT :[id number] ) Name of Problem: Mitral valve prolapse ; Recorder: Miranda Flor RN; Confirmation: Confirmed ; Classification: Patient Stated ; Code: [id number] ; Contributor System: ReSnap ; Last Updated: 11/28/2017 15:14 EDT ; Life Cycle Date: 11/28/2017 ; Life Cycle Status: Active ; Vocabulary: SNOMED CT Diagnoses(Active) Paresthesia Date: 10/14/2021 ; Diagnosis Type: Reason For Visit ; Confirmation: Complaint of ; Clinical Dx: Paresthesia ; Classification: Medical ; Clinical Service: Emergency medicine ; Code: PNED ; Probability: 0 ; Diagnosis Code: [id number] ED Height and Weight Height Source : Stated Height Entry Format : [place] Height, Feet : 5 ft(Converted to: 152 cm, 60 Inch) Height, Inches : 6 Inch(Converted to: 0 ft 6 Inch, 15.24 cm) Clinical Height : 167.64 cm Weight Source, ED : Critical estimated dosing weight Weight Entry Format : [place] Weight, Pounds : 180 lb Clinical Dosing Weight : 81.82 kg Body Surface Area (BSA) : 1.91 m2 Body Mass Index : 29.1 kg/m2 ([place]) [place] Body Weight (IBW) : 62.88 kg UGO FAN RN - 10/14/2021 18:31 EDT Patient/Family Grounds Worker Communication Primary Language : Romanian UGO FAN, RN - 10/14/2021 18:31 EDT documented in this encounter Plan of Treatment Not on file documented as of this encounter Visit Diagnoses Not on filedocumented in this encounter Care Teams Paint Striping Machine Operator Relationship Specialty Start Date End Date Eladio Lomas MD [address] [facility] [address], [place] [address] Medical Oncologist Hematology and Oncology 07/08/22 Breanna Crow, PACecilia [address] [address] Physician Reinsurance Claim Analyst Oncology 07/08/22 documented as of this encounter
--- OUTSIDE RECORDS SUMMARY | 2024-12-11 10:35 | XMS_ITS | Encounter Summary ---
Author Organization [employer] ([place], [place], [place], [place]) Address [address] [place] [address] Care Team Providers Care Boat Mechanic Name Role Phone Eladio Lomas MD Unavailable Breanna Crow PA-C Unavailable [phone] Encounter Details Date Type Department Care Team (Late st Contact Info) Description 01/01/2022 Transcribed Document [facility] [place] Family Medicine [address] [place] [address] ProviderJailyn MD [address] [place] [address] Social History Tobacco Use Types [...] Historical Provider, - 01/01/2022 12:59 [place] [address] SARAH HU :1950 Visit Time:01/01/2022 What to [...] for follow-up date and appointment time Activity: [place] dressing. Do not remove. May shower with [...] MD-ORT When 01/14/2022 11:00 AM EDT Where: [address] [place] [address] [address] [place] [address]- Medications What How Much When Instructions Next [...] [facility] [address] [place] [address] [phone] Take your medications faithfully. Do NOT skip [...] these instructions at home: Medicines ??? Take jepf-bpv-ugubtnr and prescription medicines as told by your [...] keep your urine pale yellow. ? Take jiwf-rgp-ahvwfms or prescription medicines. ? Eat foods that [...] and water are not available, use hand oracle soa architect. ? Change your dressing as told by [...] safe to drive. General instructions ??? Take ganc-ieh-fybxddj and prescription medicines only as told by [...] provider. Document Revised: 08/06/2020 Document Reviewed: 08/06/2020 [employer] Patient Education ?? 2021 [employer] Laminectomy, Care After This sheet gives [...] these instructions at home: Medicines ??? Take uvmx-mna-oejyzvq and prescription medicines only as told by [...] keep your urine pale yellow. ? Take mxjh-fki-tljoxhd or prescription medicines. ? Eat foods that [...] and water are not available, use hand oracle soa architect. ? Change your dressing as told by [...] provider. Document Revised: 11/12/2019 Document Reviewed: 11/12/2019 [employer] Patient Education ?? 2021 [employer] Emergency Awareness and Preventative Care STROKE is [...] Assistance with quitting is available by contacting 5-686-JUUX-NOW. This is a free resource providing counseling, [...] was given the opportunity to ask questions. Patient/Color Repairer Name: Patient/Color Repairer Signature: Relationship to Patient: Clinician/Hospital Color Repairer Signature: Date: documented in this encounter Plan of Treatment Not on file documented as of this encounter Visit Diagnoses Not on filedocumented in this encounter Care Teams Boat Mechanic Relationship Specialty Start Date End Date Eladio Lomas MD [address] [facility] [address] [place], [place] [address] Medical Oncologist Hematology and Oncology 07/08/22 Breanna Crow PARebelC [address] [facility] [address] [place] [address] Physician Medical Administrative Oncology 07/08/22 documented as of this encounter
--- OUTSIDE RECORDS SUMMARY | 2024-12-11 10:35 | XMS_ITS | Encounter Summary ---
Author Organization [employer] ([place], [place], [place], [place]) Address [address] [place] [address] Care Team Providers Care Baked Goods Stock Clerk Name Role Phone Eladio Lomas MD Unavailable Breanna Crow PA-C Unavailable [phone] Encounter Details Date Type Department Care Team (Late st Contact Info) Description 10/15/2021 Transcribed Document [facility] [address] [place] [address] ProviderJailyn MD [address] [place] [address] Social History Tobacco Use Types [...] Date Ata rded Speak language other than Afghan at home Not on file 05/13/2023 Want [...] CRYSTAL ROBERTS OTR/Mikal - 10/17/2021 12:09 EDT Assistant Media Planner Goals, OT Other LTG Grid Goal #1 [...] AFO and shoe, with verbal cues and hgom-ms-hymr instructions on how to perform, due to [...] on filedocumented in this encounter Care Teams Baked Goods Stock Clerk Relationship Specialty Start Date End Date Eladio Lomas MD [address] [facility] [address] [place] [address] Medical Oncologist Hematology and Oncology 07/08/22 Breanna Crow PA-C [address] [place], [place] [id number] Physician Home Care Rn Oncology 07/08/22 documented as of this encounter
--- OUTSIDE RECORDS SUMMARY | 2024-12-11 10:35 | XMS_ITS | Encounter Summary ---
Author Organization [employer] ([place], [place], [place], [place]) Address [address] [place] [address] Care Team Providers Care Bag Bleacher Name Role Phone Eladio Lomas MD Unavailable Breanna Crow PA-C Unavailable [phone] Encounter Details Date Type Department Care Team (Late st Contact Info) Description 10/15/2021 Transcribed Document [facility] [place] Family Medicine [address] [place] [address] ProviderJailyn MD [address] [place] [address] Social History Tobacco Use Types [...] often do you attend chur ch or uatsdin services? Never 07/08/2022 Do you belong to [...] Date Ata rded Speak language other than Kenyan at home Not on file 05/13/2023 Want [...] 10/15/2021 6:53 EDT Electronically signed by Huy [facility] Conversion Financial Management Analyst Cerner at 08/17/2022 6:19 PM CDT documented in this encounter Plan of Treatment Not on file documented as of this encounter Visit Diagnoses Not on filedocumented in this encounter Care Teams Bag Bleacher Relationship Specialty Start Date End Date Eladio Lomas MD [address] [facility] [address] [address] Medical Oncologist Hematology and Oncology 07/08/22 Breanna Crow PACecilia [address] [place] [address] [address] [place] [address] Physician Computer Aided Design Designer Oncology 07/08/22 documented as of this encounter
--- OUTSIDE RECORDS SUMMARY | 2024-12-11 10:35 | XMS_ITS | Encounter Summary ---
Author Organization [employer] ([place], [place], [place], [place]) Address [address] [place] [address] Care Team Providers Care Incident Response Analyst Name Role Phone Eladio Lomas MD Unavailable Breanna Crow PA-C Unavailable [phone] Encounter Details Date Type Department Care Team (Late st Contact Info) Description 10/15/2021 Transcribed Document [facility] [place] Family Medicine [address] [place] [address] ProviderJailyn MD [address] [place] [address] Social History Tobacco Use Types [...] Health Plan: [employer] PPO Policy Number: [id number] Authorization Number: Insurance Primary Name : [employer]ICE PPO [id number] Authorization Status-Primary : Awaiting callback Reference Number-Primary : [id number] Authorized Service Begin Date-Primary : 10/15/2021 EDT Authorization Comments-Primary : Clinicals faxed via [facility] Historical Authorization Comments-Primary : Comment 1: [employer] PPO auth pending per Star note. (JUANITA HUGO, SHARYN-Utilization Review 10/15/2021 09:18) Natalie Lauren Rn-Utilization Review - 10/15/2021 9:30 EDT Electronically signed by Huy [facility] Conversion Model Maker Plaster Cerner at 08/17/2022 5:57 PM CDT documented in this encounter Plan of Treatment Not on file documented as of this encounter Visit Diagnoses Not on filedocumented in this encounter Care Teams Incident Response Analyst Relationship Specialty Start Date End Date Eladio Lomas MD 1210 [facility] [address] [place] [address] Medical Oncologist Hematology and Oncology 07/08/22 Breanna Crow PA-C [address] [place] [address] [address] [place] [address] Physician Deployment Manager Oncology 07/08/22 documented as of this encounter
--- OUTSIDE RECORDS SUMMARY | 2024-12-11 10:35 | XMS_ITS | Encounter Summary ---
Author Organization [employer] ([place], [place], [place], [place]) Address [address] [place] [address] Care Team Providers Care Granite Chip Terrazzo Finisher Name Role Phone Eladio Lomas MD Unavailable Breanna Crow PA-C Unavailable [phone] Encounter Details Date Type Department Care Team (Late st Contact Info) Description 01/01/2022 Transcribed Document [facility] [place] [address] [place] [address] ProviderJailyn MD [address] [place] [address] Social History Tobacco Use Types [...] HU /Sex: 1950 Male Med Rec #: [id number] Physician: GARCIA WORKMAN MD-ORT Financial #: [id number] Pt. Type: O Room/Bed: [facility] Admit/Disch: 01/01/22 09:26:00 - Institution: [facility] OR PostOp Case Times Entry 1 In PACU II 01/01/22 12:41:00 Ready for PACU II 01/01/22 13:10:00 Discharge Discharge from PACU 01/01/22 13:20:00 II Last Modified By: DAYANA BALLARD, RN 01/01/22 13:28:32 [facility] OR PostOp Case Times Audit 01/01/22 13:28:32 Seismograph Operator Helper: [email or web address] Modifier: [email or web address] <+> 1 Ready for PACU II Discharge <+> 1 Discharge from PACU II Finalized By: DAYANA BALLARD, RN Document Signatures Signed By: DAYANA BALLARD, RN 01/01/22 13:28 documented in this encounter Plan of Treatment Not on file documented as of this encounter Visit Diagnoses Not on filedocumented in this encounter Care Teams Granite Chip Terrazzo Finisher Relationship Specialty Start Date End Date Eladio Lomas MD [address] [facility] [address] [address] Medical Oncologist Hematology and Oncology 07/08/22 Breanna Crow PA-C [address] [facility] [address] [place] [address] Physician Pluck Trimmer Oncology 07/08/22 documented as of this encounter
--- OUTSIDE RECORDS SUMMARY | 2024-12-11 10:35 | XMS_ITS | Encounter Summary ---
Author Organization [employer] ([place], [place], [place], [place]) Address [address] [place] [address] Care Team Providers Care Mat Packer Name Role Phone Eladio Lomas MD Unavailable Breanna Crow PA-C Unavailable [phone] Encounter Details Date Type Department Care Team (Late st Contact Info) Description 10/15/2021 Transcribed Document [facility] Family Medicine [address] [place] [address] ProviderJailyn MD [address] [place] [address] Social History Tobacco Use Types [...] Health Plan: [employer] CHOICE PPO Policy Number: [id number] Authorization Number: Insurance Primary Name : [employer] PPO [id number] Authorization Status-Primary : Pending Reference Number-Primary : [id number] Authorized Service Begin Date-Primary : 10/15/2021 EDT Historical Authorization Comments-Primary : Comment 1: [employer] PPO auth pending per Star note. (JUANITA HUGO, SHARYN-Utilization Review 10/15/2021 09:18) Natalie Lauren Rn-Utilization Review - 10/15/2021 9:29 EDT Electronically signed by Rock [employer] Conversion Naval Aircrewman Tactical Helicopter Cerner at 08/17/2022 5:57 PM CDT documented in this encounter Plan of Treatment Not on file documented as of this encounter Visit Diagnoses Not on filedocumented in this encounter Care Teams Mat Packer Relationship Specialty Start Date End Date Eladio Lomas MD 1210 [facility] [address] [address] Medical Oncologist Hematology and Oncology 07/08/22 Breanna Crow, PARebelC [address] [place] [address] [address] [place] [address] Physician Appliances Sample Maker Oncology 07/08/22 documented as of this encounter
--- OUTSIDE RECORDS SUMMARY | 2024-12-11 10:35 | XMS_ITS | Encounter Summary ---
Author Organization [employer] ([place], [place], [place], [place]) Address [address] [place] [address] Care Team Providers Care Material Cutter Name Role Phone Eladio Lomas MD Unavailable Breanna Crow PA-C Unavailable [phone] Encounter Details Date Type Department Care Team (Late st Contact Info) Description 10/15/2021 Transcribed Document [facility] [place] [address] [place] [address] ProviderJailyn MD [address] [place] [address] Social History Tobacco Use [...] - Medical Enoxaparin 40 mg, SubCutaneous, Inj, [id number], Routine, Start 10/15/21 7:00:00 EDT, 10/15/21 6:07:00 [...] ALYC # 4 K/uL 10/15/2021 00:19 EDT [place] Percent Man 19 % (High) 10/15/2021 00:19 [...] ACLS, Continuous Order Electronically signed by Interface, [facility] Conversion Food Processor Cerner at 08/17/2022 5:58 PM CDT documented in this encounter Plan of Treatment Not on file documented as of this encounter Visit Diagnoses Not on filedocumented in this encounter Care Teams Material Cutter Relationship Specialty Start Date End Date Eladio Lomas MD [address] [facility] [address] [place] [address] Medical Oncologist Hematology and Oncology 07/08/22 Breanna Crow PARebelC [address] [facility] [address] [place] [address] Physician Design Maintenance Engineer Oncology 07/08/22 documented as of this encounter
--- OUTSIDE RECORDS SUMMARY | 2024-12-11 10:35 | XMS_ITS | Encounter Summary ---
Author Organization [employer] ([place], [place], [place], [place]) Address [address] [place] [address] Care Team Providers Care Salesperson Yard Goods Name Role Phone Eladio Lomas MD Unavailable Breanna Crow PA-C Unavailable [phone] Encounter Details Date Type Department Care Team (Late st Contact Info) Description 10/15/2021 Transcribed Document [facility] [place] Family Medicine [address] [place] [address] ProviderJailyn MD [address] [place] [address] Social History Tobacco Use Types [...] Date Ata rded Speak language other than Tuvaluan at home Not on file 05/13/2023 Want [...] & time 10/15/2021 00:00:00, Voice recognition / international account manager technology used for some documentation in [...] CATH WINJX HRT ART& L VENTR IMG ([id number]).. Family history: Not significant. Social history: Social [...] EDT Height Source Stated Height Entry Format [place] Height/Length, TRISTANIAN (ft) 5 ft Height/Length TRISTANIAN 6 Inch CLINICALHEIGHT 167.64 cm [place] Body Weight 62.88 kg Weight Source, ED Critical estimated dosing weight Weight Entry Format [place] Weight [place] lb 180 lb CLINICALWEIGHT 81.82 kg Body [...] Triage: ED C-SSRS: ED Clinical Reconciliation: ED nursing home physician: ESR Sedimentation Rate Auto: Saline Lock Insert: [...] SEX: 1950 / Male MRN / ACC#: [id number] / [id number] ORDERING PHYSICIAN: Matt Whitman. EXAM REQUESTED: [id number]--GO LUMBAR SPINE W/O CONTRAST FACILITY: [facility] DATE: 10/15/2021 RADIOLOGIST NAME: MD Lim [...] on filedocumented in this encounter Care Teams Salesperson Yard Goods Relationship Specialty Start Date End Date Eladio Lomas MD [address] [address] Medical Oncologist Hematology and Oncology 07/08/22 Breanna Crow, PA-C [address] [place] [address] [place] [address] Physician Special Services Coordinator Oncology 07/08/22 documented as of this encounter
--- OUTSIDE RECORDS SUMMARY | 2024-12-11 10:35 | XMS_ITS | Encounter Summary ---
Author Organization [employer] ([place], [place], [place], [place]) Address [address] [place] [address] Care Team Providers Care Card Filer Name Role Phone Eladio Lomas MD Unavailable Breanna Crow PA-C Unavailable [phone] Encounter Details Date Type Department Care Team (Late st Contact Info) Description 10/15/2021 Transcribed Document [facility] [place] [address] [place] [address] ProviderJailyn MD [address] [place] [address] Social History Tobacco Use Types [...] Date Ata rded Speak language other than Egyptian at home Not on file 05/13/2023 Want [...] on filedocumented in this encounter Care Teams Card Filer Relationship Specialty Start Date End Date Eladio Lomas MD [address] [facility] [address] [address] Medical Oncologist Hematology and Oncology 07/08/22 Breanna Crow, PA-C [address] [facility] [address] [place] [address] Physician Manufacturing Laborer Oncology 07/08/22 documented as of this encounter
--- OUTSIDE RECORDS SUMMARY | 2024-12-11 10:35 | XMS_ITS | Encounter Summary ---
Author Organization [employer] ([place], [place], [place], [place]) Address [address] [place] [address] Care Team Providers Care Liquid Yeast Supervisor Name Role Phone Eladio Lomas MD Unavailable Breanna Crow PA-C Unavailable [phone] Encounter Details Date Type Department Care Team (Late st Contact Info) Description 10/15/2021 Transcribed Document [facility] [place] [address] [place] [address] ProviderJailyn MD [address] [place] [address] Social History Tobacco Use Types [...] 10/15/2021 15:55 EDT Electronically signed by Huy, [facility] Conversion Moth Exterminator Cerner at 08/17/2022 5:55 PM CDT documented in this encounter Plan of Treatment Not on file documented as of this encounter Visit Diagnoses Not on filedocumented in this encounter Care Teams Liquid Yeast Supervisor Relationship Specialty Start Date End Date Eladio Lomas MD 1210 [facility] [address] [place] [address] Medical Oncologist Hematology and Oncology 07/08/22 Breanna Crow, PACecilia [address] [facility] [address] [place] [address] Physician Packager Machine Oncology 07/08/22 documented as of this encounter
--- OUTSIDE RECORDS SUMMARY | 2024-12-11 10:35 | XMS_ITS | Encounter Summary ---
Author Organization [employer] ([place], [place], [place], [place]) Address [address] [place] [address] Care Team Providers Care Automotive Service Director Name Role Phone Eladio Lomas MD Unavailable Breanna Crow PA-C Unavailable [phone] Encounter Details Date Type Department Care Team (Late st Contact Info) Description 10/15/2021 Transcribed Document [facility] Family Medicine [address] [place] [address] ProviderJailyn MD [address] [place] [address] Social History Tobacco Use Types [...] 10/15/2021 20:37 EDT Electronically signed by [facility] Conversion Fire Department Battalion Chief Cerner at 08/17/2022 6:14 PM CDT documented in this encounter Plan of Treatment Not on file documented as of this encounter Visit Diagnoses Not on filedocumented in this encounter Care Teams Automotive Service Director Relationship Specialty Start Date End Date Eladio Lomas MD 12[address] [facility] [address], [place] [address] Medical Oncologist Hematology and Oncology 07/08/22 Breanna Crow, PA-C [address] [facility] [address] [place] [address] Physician Assistant Manager Retail Oncology 07/08/22 documented as of this encounter
--- OUTSIDE RECORDS SUMMARY | 2024-12-11 10:35 | XMS_ITS | Encounter Summary ---
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 [...] Meds: benadryl, lovenox, Pepcid, KCl GI: LBM MORTGAGE LOAN OFFICER, +BS Skin: no skin breakdown noted, healing [...] Energy Balance Related to : decreased appetitie MORTGAGE LOAN OFFICER Energy Balance as Evidenced by : 50% [...] EDT Electronically signed by [employer] Conversion Health And Physical Education Teacher Cerner at 08/17/2022 6:18 PM CDT documented in this encounter Plan of Treatment Not on file documented as of this encounter Visit Diagnoses Not on filedocumented in this encounter Care Teams Business Risk Analyst Relationship Specialty Start Date End Date Eladio Lomas MD [address] [place] [address] Medical Oncologist Hematology and Oncology 07/08/22 Breanna Crow, PA-C [address] [place] [address] [place] [address] Physician Eligibility Specialist Oncology 07/08/22 documented as of this encounter
--- OUTSIDE RECORDS SUMMARY | 2024-12-11 10:35 | XMS_ITS | Encounter Summary ---
Author Organization Healthcare Address [address] [place] [address] Care Team Providers Care Guest Services Manager Name Role Phone Per Patient, None Primary Care Provider Unavaila ble Encounter Details Date Type Department Care Team (Late st Contact Info) Description 01/07/2021 Orders Only [facility] at [facility] [address] [place] [address] Maurisio Aguilar MD [address] [address] Social History Tobacco Use Types [...] External Glucose 99 74 - 100 mg/dL [facility] External BUN 16 6 - 20 mg/dL [facility] External Creatinine Blood 0.93 0.70 - 1.28 mg/dL [facility] External BUN/Creat Ratio 17 10 - 20 (calc) [facility] External Sodium 141 136 - 145 mmol/L [facility] External Potassium 4.2 3.4 - 5.0 mmol/L [facility] External Chloride 102 98 - 107 mmol/L [facility] External Carbon Dioxide 25 22 - 31 mmol/L [facility] External Anion Gap (AG) 14 7 - 25 (calc) [facility] External Calcium 9.4 8.6 - 10.2 mg/dL [facility] External Total Protein 7.0 6.4 - 8.3 g/dL [facility] External Albumin 4.8 3.5 - 5.2 g/dL [facility] External Globulin 2.2 1.5 - 4.5 g/dL (calc) [facility] External Albumin/Globulin Ratio 2.2 1.1 - 2.5 (calc) [facility] External Bilirubin Total 0.4 0.1 - 1.2 mg/dL [facility] External Alkaline Phosphatase 85 40 - 129 U/L [facility] External AST (SGOT) 22 0 - 40 U/L [facility] External ALT (SGPT) 19 0 - 41 U/L [facility] External EGFR (If AFR/AM) 94 >=60 [facility] External Estimated GFR 81 >=60 [facility] Comment: NOTE Chronic kidney disease [...] MD LAB BLOOD ORDERABLES Final Res ult [facility] [address] [place] [address], [place] [phone] documented in this encounter Visit Diagnoses Not on filedocumented in this encounter Care Teams Guest Services Manager Relationship Specialty Start Date End Date Per Patient, [place] [address] PCP - General 05/02/20 documented as of this encounter
--- OUTSIDE RECORDS SUMMARY | 2024-12-11 10:35 | XMS_ITS | Encounter Summary ---
Author Organization [employer] ([place], [place], [place], [place]) Address [address] [place] [address] Care Team Providers Care Deputy Sheriff Civil Division Name Role Phone Eladio Lomas MD Unavailable Breanna Crow PA-C Unavailable [phone] Encounter Details Date Type Department Care Team (Late st Contact Info) Description 10/15/2021 Transcribed Document [facility] Family Medicine [address] [place] [address] ProviderJailyn MD [address] [place] [address] Social History Tobacco Use Types [...] EDT Electronically signed by Harjeet Son Conversion Quality Control Systems Manager Cerner at 08/17/2022 6:03 PM CDT documented in this encounter Plan of Treatment Not on file documented as of this encounter Visit Diagnoses Not on filedocumented in this encounter Care Teams Deputy Sheriff Civil Division Relationship Specialty Start Date End Date Eladio Lomas MD 12[address] [facility] [address] [place] [address] Medical Oncologist Hematology and Oncology 07/08/22 Breanna Crow, PACecilia [address] [place] [address] [place] [address] Physician District Manager Oncology 07/08/22 documented as of this encounter
--- OUTSIDE RECORDS SUMMARY | 2024-12-11 10:35 | XMS_ITS | Clinical Summary ---
[facility] Organization [facility] Address [address] [place] [address] Care Team Providers Care Stained Glass Artist Name Role Phone Provider, No Known Primary [...] 02/05/2021, , 01/17/2020, Additional history exists Insurance [facility] MEDICARE ADVANTAGE Care Teams Stained Glass Artist Relationship Specialty Start Date End Date Provider, No Known [facility] [address] PCP - General 10/07/21
--- OUTSIDE RECORDS SUMMARY | 2024-12-11 10:35 | XMS_ITS | Encounter Summary ---
Author Organization [employer] ([place], [place], [place], [place]) Address [address] [place] [address] Care Team Providers Care Patient Scheduling Manager Name Role Phone Eladio Lomas MD Unavailable Breanna Crow PA-C Unavailable [phone] Encounter Details Date Type Department Care Team (Late st Contact Info) Description 01/01/2022 Transcribed Document [facility] Family Medicine [address] [place] [address] ProviderJailyn MD [address] [place] [address] Social History Tobacco Use Types [...] Historical Provider, - 01/01/2022 12:58 [place] [address] SARAH HU :1950 Visit Time:01/01/2022 What to [...] for follow-up date and appointment time Activity: [place] dressing. Do not remove. May shower with [...] MD-ORT When 01/14/2022 11:00 AM EDT Where: [address] [place] [address] [address] [place] [address]- Medications What How Much When Instructions Next Dose acetaminophen-oxyCODONE (Percocet 7.5/ 325 oral tablet) 1 Tablet(s) Oral Three Times A Day as needed for for pain Pickup at [facility] acetaminophen (Tylenol 325 mg oral tablet) 2 Tablet(s) Oral Every 4 Hours as needed for Pain (Mild 1-3) ergocalciferol (ergocalciferol 50 mcg (2000 intl units) oral capsule) 1 Capsule(s) Oral Every Day Duration: 14 Day(s) multivitamin (Multiple Vitamins oral tablet) 1 Tablet(s) Oral Every Day valACYclovir (Valtrex 1 g oral tablet) 1 Tablet(s) Oral Every Day Pharmacy Information [facility]: [address] [place] [address] [phone] Take your medications faithfully. Do NOT skip [...] these instructions at home: Medicines ??? Take myqt-myo-xmknagm and prescription medicines as told by your [...] keep your urine pale yellow. ? Take iigb-org-mciejsp or prescription medicines. ? Eat foods that [...] and water are not available, use hand power plant supervisor. ? Change your dressing as told by [...] safe to drive. General instructions ??? Take rrkm-pmi-zsulcyi and prescription medicines only as told by [...] provider. Document Revised: 08/06/2020 Document Reviewed: 08/06/2020 [employer] Patient Education ?? 2021 [employer] Laminectomy, Care After This sheet gives [...] these instructions at home: Medicines ??? Take gmae-hty-ikpbrxb and prescription medicines only as told by [...] keep your urine pale yellow. ? Take hroe-kho-bdsmhdt or prescription medicines. ? Eat foods that [...] and water are not available, use hand power plant supervisor. ? Change your dressing as told by [...] provider. Document Revised: 11/12/2019 Document Reviewed: 11/12/2019 [employer] Patient Education ?? 2021 [employer]. Emergency Awareness and Preventative Care STROKE is [...] Assistance with quitting is available by contacting 8-377-WVGN-NOW. This is a free resource providing counseling, [...] was given the opportunity to ask questions. Patient/Collections Attorney Name: Patient/Collections Attorney Signature: Relationship to Patient: Clinician/Hospital Collections Attorney Signature: Date: documented in this encounter Plan of Treatment Not on file documented as of this encounter Visit Diagnoses Not on filedocumented in this encounter Care Teams Patient Scheduling Manager Relationship Specialty Start Date End Date Eladio Lomas MD 1210 [facility] [address] [place], [place] [address] Medical Oncologist Hematology and Oncology 07/08/22 Breanna Crow PARebelC 34[address] [facility] [address] [place] [address] Physician Free Lance Artist Oncology 07/08/22 documented as of this encounter
--- OUTSIDE RECORDS SUMMARY | 2024-12-11 10:35 | XMS_ITS | Encounter Summary ---
Author Organization [employer] ([place], [place], [place], [place]) Address [address] [place] [address] Care Team Providers Care Green Prize Packer Name Role Phone Eladio Lomas MD Unavailable Breanna Crow PA-C Unavailable [phone] Encounter Details Date Type Department Care Team (Late st Contact Info) Description 10/15/2021 Transcribed Document [facility] [place] [address] [place] [address] ProviderJailyn MD [address] [place] [address] Social History Tobacco Use Types [...] On: 10/15/2021 14:48 EDT by Miladys Carter, [facility] Coord Phone Call for Consults Consult Reason : right L5 radiculopathy causing foot drop Physician Requesting Consult : ROMERO INGRAM MD-SERENE Physician Requested for Consult : GARCIA WORKMAN MD-ORT Date and Time Call Returned : 10/15/2021 14:50 EDT Consult, Additional Information : Spoke with Dr. Workman in person concerning the consult. Miladys Carter, [facility] Coord - 10/15/2021 14:50 EDT Electronically signed by [facility] Conversion Aircraft Seat Upholsterer Cerner at 08/17/2022 6:04 PM CDT documented in this encounter Plan of Treatment Not on file documented as of this encounter Visit Diagnoses Not on filedocumented in this encounter Care Teams Green Prize Packer Relationship Specialty Start Date End Date Eladio Lomas MD 1210 [facility] [address], [place] [address] Medical Oncologist Hematology and Oncology 07/08/22 Breanna Crow PA-C [address] [facility] [address] [place] [address] Physician Farm Or Ranch Animal Caretaker Oncology 07/08/22 documented as of this encounter
--- OUTSIDE RECORDS SUMMARY | 2024-12-11 10:35 | XMS_ITS | Encounter Summary ---
Author Organization [employer] ([place], [place], [place], [place]) Address [address] [place] [address] Care Team Providers Care Water And Gas Helper Name Role Phone Eladio Lomas MD Unavailable Breanna Crow PA-C Unavailable [phone] Encounter Details Date Type Department Care Team (Late st Contact Info) Description 10/15/2021 Transcribed Document [facility] Family Medicine [address] [place] [address] ProviderJailyn MD [address] [place] [address] Social History Tobacco Use Types [...] Date Ata rded Speak language other than Fijian at home Not on file 05/13/2023 Want [...] - 10/15/2021 4:49 EDT Electronically signed by [facility] Conversion Celery Cutter Cerner at 08/17/2022 6:13 PM CDT documented in this encounter Plan of Treatment Not on file documented as of this encounter Visit Diagnoses Not on filedocumented in this encounter Care Teams Water And Gas Helper Relationship Specialty Start Date End Date Eladio Lomas MD [address] [address] Medical Oncologist Hematology and Oncology 07/08/22 Breanna Crow PACecilia [address] [facility] [address] [place] [address] Physician Well Service Floor Worker Oncology 07/08/22 documented as of this encounter
--- OUTSIDE RECORDS SUMMARY | 2024-12-11 10:35 | XMS_ITS | Encounter Summary ---
Author Organization Healthcare Address [address] [place] [address] Care Team Providers Care Quality Control Inspector Heading Name Role Phone Per Patient, None Primary Care Provider Unavaila ble Encounter Details Date Type Department Care Team (Late st Contact Info) Description 01/07/2021 Orders Only [facility] at [facility] [address] [place] [address] Maurisio Aguilar MD [address] [address] Social History Tobacco Use Types [...] Band Neutrophil% 0.0 0.0 - 7.0 % [facility] External Atypical Lymph% 4(H) 0 - 1 % [facility] External Metamyelocyte % 0 0 - 1 % [facility] External Myelocyte % 0 0 - 1 % [facility] External Promyelocyte% 0 % [facility] External Blast% 0 % [facility] External Nucleated RBC%-Manual 0 /100 WBC [facility] External Smudge Cells 0 [facility] External Platelet Morphology NORMAL [facility] External Ovalocytes SLIGHT(A) [facility] External Tear Drop Cells SLIGHT(A) [facility] 01/07/2021 10:0 5 AM EDT 01/07/2021 10:20 AM EDT us Maurisio Aguilar MD LAB BLOOD ORDERABLES Final Res ult Performing Organization Address City/State/[facility] Co de Phone Number [facility] [address] [place] [address], documented in this encounter Visit Diagnoses Not on filedocumented in this encounter Care Teams Quality Control Inspector Heading Relationship Specialty Start Date End Date Per Patient, [place] [address] PCP - General 05/02/20 documented as of this encounter
--- OUTSIDE RECORDS SUMMARY | 2024-12-11 10:35 | XMS_ITS | Encounter Summary ---
Author Organization [employer] ([place], [place], [place], [place]) Address [address] [place] [address] Care Team Providers Care Camera Repair Technician Name Role Phone Eladio Lomas MD Unavailable Breanna Crow PA-C Unavailable [phone] Encounter Details Date Type Department Care Team (Late st Contact Info) Description 10/15/2021 Transcribed Document [facility] Family Medicine [address] [place] [address] ProviderJailyn MD [address] [place] [address] Social History Tobacco Use Types [...] At risk for sleep apnea / IMO [id number] / Confirmed, Active Problems (2) At risk for sleep apnea Mitral valve prolapse Objective VS/Measurements Measurements from flowsheet : Measurements 10/15/2021 4:48 EDT Height Source Stated Height Entry Format [place] Height/Length, DUTCH (ft) 5 ft Height/Length DUTCH 6 Inch CLINICALHEIGHT 167.64 cm Carr Body Weight 63 kg Weight Source Bed scale Weight Entry Format [place] Weight [place] Island[place] lb 131 lb Weight [place] Islander oz 5 oz CLINICALWEIGHT 59.69 kg Body Surface Area (BSA) 1.67 m2 Body Mass Index 21.2 kg/m2 10/15/2021 3:09 EDT Height Source Not Done: Task Duplication (Not Done) Height Entry Format Not Done: Task Duplication (Not Done) Weight Source Not Done: Task Duplication (Not Done) 10/14/2021 18:31 EDT Height Source Stated Height Entry Format [place] Height/Length, DUTCH (ft) 5 ft Height/Length DUTCH 6 Inch CLINICALHEIGHT 167.64 cm Carr Body Weight 62.88 kg Weight Source, ED Critical estimated dosing weight Weight Entry Format [place] Weight [place] Islander lb 180 lb CLINICALWEIGHT 81.82 kg Body Surface Area (BSA) 1.91 m2 Body Mass Index 29.1 kg/m2 [place] documented in this encounter Plan of Treatment Not on file documented as of this encounter Visit Diagnoses Not on filedocumented in this encounter Care Teams Camera Repair Technician Relationship Specialty Start Date End Date Eladio Lomas MD 1210 [facility] [address] [place] [address] Medical Oncologist Hematology and Oncology 07/08/22 Breanna Crow, PARebelC [address] [facility] [address] [place] [address] Physician Claims Adjudicator Oncology 07/08/22 documented as of this encounter
--- OUTSIDE RECORDS SUMMARY | 2024-12-11 10:35 | XMS_ITS | Encounter Summary ---
Author Organization [employer] ([place], [place], [place], [place]) Address [address] [place] [address] Care Team Providers Care Cut Out And Marking Machine Operator Name Role Phone Eladio Lomas MD Unavailable Breanna Crow PA-C Unavailable [phone] Encounter Details Date Type Department Care Team (Late st Contact Info) Description 10/15/2021 Transcribed Document [facility] [place] [address] [place] [address] ProviderJailyn MD [address] [place] [address] Social History Tobacco Use Types [...] 10/15/2021 12:32 EDT Electronically signed by [facility] Conversion Multiplex Operator Cerner at 08/17/2022 6:13 PM CDT documented in this encounter Plan of Treatment Not on file documented as of this encounter Visit Diagnoses Not on filedocumented in this encounter Care Teams Cut Out And Marking Machine Operator Relationship Specialty Start Date End Date Eladio Lomas MD 1210 [facility] [address] [place] [address] Medical Oncologist Hematology and Oncology 07/08/22 Breanna Crow PA-C 34[address] [facility] [address] [place] [address] Physician Sales Systems Engineer Oncology 07/08/22 documented as of this encounter
--- OUTSIDE RECORDS SUMMARY | 2024-12-11 10:35 | XMS_ITS | Referral Summary ---
Author Organization [employer] ([place], [place], [place], [place]) Address [address] [place] [address] Care Team Providers Care Early Breastfeeding Care Specialist Name Role Phone Eladio Lomas MD Unavailable Breanna Crow PA-C Unavailable [phone] Allergies Active Allergy Reactions Criticality Noted [...] Plan of Treatment [place] [address] [facility] MEDICARE PPO [facility] MEDICARE PPO Care Teams Early Breastfeeding Care Specialist Relationship Specialty Start Date End Date Eladio Lomas MD 1210 [facility] [address] [place] [address] Medical Oncologist Hematology and Oncology 07/08/22 Breanna Crow PA-C 3470 [facility] [address] [place] [address] Oncology 07/08/22
--- OUTSIDE RECORDS SUMMARY | 2024-12-11 10:35 | XMS_ITS | Encounter Summary ---
Author Organization [employer] ([place], [place], [place], [place]) Address [address] [place] [address] Care Team Providers Care Housekeeper Cleaning Cooking Name Role Phone Eladio Lomas MD Unavailable Breanna Crow PA-C Unavailable [phone] Encounter Details Date Type Department Care Team (Late st Contact Info) Description 10/15/2021 Transcribed Document [facility] Family Medicine [address] [place] [address] ProviderJailyn MD [address] [place] [address] Social History Tobacco Use Types [...] on filedocumented in this encounter Care Teams Housekeeper Cleaning Cooking Relationship Specialty Start Date End Date Eladio Lomas MD [address] [address] Medical Oncologist Hematology and Oncology 07/08/22 Breanna Crow, PA-C [address] [place] [address] Physician Children'S Librarian Oncology 07/08/22 documented as of this encounter
--- OUTSIDE RECORDS SUMMARY | 2024-12-11 10:35 | XMS_ITS | Encounter Summary ---
Author Organization [employer] ([place], [place], [place], [place]) Address [address] [place] [address] Care Team Providers Care Agricultural Research Director Name Role Phone Eladio Lomas MD Unavailable Breanna Crow PA-C Unavailable [phone] Encounter Details Date Type Department Care Team (Late st Contact Info) Description 10/15/[address] [facility] Family Medicine [address] [place] [address] ProviderJailyn MD [address] [place] [address] Social History Tobacco Use Types [...] 71 y/o male who was admitted to [facility] on 10/15/2021 with RLE weakness and paresthesia. [...] ROM : WFL Left UE Strength : [facility] SOFÍA CROFT PHYSICAL THERAPIST NON-EXEMPT - [...] PHYSICAL THERAPIST NON-EXEMPT - 10/17/2021 10:13 EDT Regional Forester Goals Transfer LTG Grid Goal #1 Destination [...] on filedocumented in this encounter Care Teams Agricultural Research Director Relationship Specialty Start Date End Date Eladio Lomas MD 1210 [facility] [address] [place] [address] Medical Oncologist Hematology and Oncology 07/08/22 Breanna Crow, PACecilia [address] [facility] [address] [place] [address] Physician Game Farm Supervisor Oncology 07/08/22 documented as of this encounter
--- OUTSIDE RECORDS SUMMARY | 2024-12-11 10:35 | XMS_ITS | Encounter Summary ---
Author Organization Healthcare Address [address] [place] [address] Care Team Providers Care Video Photographer Name Role Phone Per Patient, None Primary Care Provider Unavaila ble Encounter Details Date Type Department Care Team (Late st Contact Info) Description 01/07/2021 Orders Only [facility] [address] [place] [address] Maurisio Aguilar MD [address] [address] Social History Tobacco Use Types [...] External WBC 6.9 3.8 - 10.8 K/uL [facility] External Red Blood Cell (RBC) 5.24 4.20 - 5.80 M/uL [facility] External Hemoglobin 15.5 14.0 - 18.0 G/DL [facility] External Hematocrit 44.1 40.0 - 52.0 % [facility] External MCV 84 80 - 100 fL [facility] External MCH 30 26 - 35 PG [facility] External MCHC 35 32 - 36 G/DL [facility] External RDW 13.5 11.0 - 15.0 % [facility] External Mean Platelet Volume 7.6 6.2 - 10.5 fL [facility] External Platelets 162 130 - 400 K/uL [facility] External Neutrophil# 3.0 1.6 - 8.4 K/uL [facility] External Lymphocyte# 3.2 0.4 - 5.1 K/uL [facility] External Absolute Monocyte (Abs [place]) 0.4 0.0 - 1.2 K/uL [facility] External Eosinophils# 0.1 0.0 - 0.8 K/uL [facility] External Baso# 0.0 0.0 - 0.3 K/uL [facility] External Neutrophils % 43.0 42.0 - 78.0 % [facility] External Lymphocyte % 46.0 11.0 - 47.0 % [facility] External Monocyte % 6.0 0.0 - 11.0 % [facility] External Eosinophil% 1.0 0.0 - 7.0 % [facility] External Basophil % 0.0 0.0 - 3.0 % [facility] External Nucleated RBC%-Auto 0.2 0.0 - 0.9 % [facility] External Nucleated RBC Absolute 0.01 Not Estab. K/uL [facility] 01/07/2021 10:0 5 AM EDT 01/07/2021 10:20 AM EDT us Maurisio Aguilar MD LAB BLOOD ORDERABLES Final Res ult Performing Organization Address City/State/[facility] [[email or web address]] Co de Phone Number [facility] [address] [phone], documented in this encounter Visit Diagnoses Not on filedocumented in this encounter Care Teams Video Photographer Relationship Specialty Start Date End Date Per [place], [place] [address] PCP - General 05/02/20 documented as of this encounter
--- OUTSIDE RECORDS SUMMARY | 2024-12-11 10:35 | XMS_ITS | Encounter Summary ---
Author Organization [employer] ([place], [place], [place], [place]) Address [address] [place] [address] Care Team Providers Care Electro Mechanical Assembler Name Role Phone Eladio Lomas MD Unavailable Breanna Crow PA-C Unavailable [phone] Encounter Details Date Type Department Care Team (Late st Contact Info) Description 10/15/2021 Transcribed Document [facility] [place] [address] [place] [address] ProviderJailyn MD [address] [place] [address] Social History Tobacco Use Types [...] 10/15/2021 9:30 EDT Electronically signed by Huy [facility] Conversion Crew Leader Gluing Cerner at 08/17/2022 6:01 PM CDT documented in this encounter Plan of Treatment Not on file documented as of this encounter Visit Diagnoses Not on filedocumented in this encounter Care Teams Electro Mechanical Assembler Relationship Specialty Start Date End Date Eladio Lomas MD [address] [facility] [address] [place] [address] Medical Oncologist Hematology and Oncology 07/08/22 Breanna Crow PA-C [address] [facility] [address] [place] [address] Physician Inventory Taker Oncology 07/08/22 documented as of this encounter
--- OUTSIDE RECORDS SUMMARY | 2024-12-11 10:35 | XMS_ITS | Encounter Summary ---
Author Organization [employer] ([place], [place], [place], [place]) Address [address] [place] [address] Care Team Providers Care Freight Manager Name Role Phone Eladio Lomas MD Unavailable Breanna Crow PA-C Unavailable [phone] Encounter Details Date Type Department Care Team (Late st Contact Info) Description 10/15/2021 Transcribed Document [facility] Family Medicine [address] [place] [address] ProviderJailyn MD [address] [place] [address] Social History Tobacco Use [...] Date Ata rded Speak language other than Danish at home Not on file 05/13/2023 Want [...] Health Plan: [employer] PPO Policy Number: [id number] Authorization Number: Insurance Primary Name : [employer] PPO [id number] Authorization Status-Primary : Pending Reference Number-Primary : [id number] Authorized Service Begin Date-Primary : 10/15/2021 EDT Authorization Comments-Primary : [employer] PPO auth pending per Star note. Historical Authorization Comments-Primary : No Authorization Comments Found JUANITA HUGO RN-Utilization Review - 10/15/2021 9:18 EDT documented in this encounter Plan of Treatment Not on file documented as of this encounter Visit Diagnoses Not on filedocumented in this encounter Care Teams Freight Manager Relationship Specialty Start Date End Date Eladio Lomas MD [address] [facility] [address] [address] Medical Oncologist Hematology and Oncology 07/08/22 Breanna Crow PACecilia [address] [facility] [address] [place] [address] Physician Investigative Agent Oncology 07/08/22 documented as of this encounter
--- OUTSIDE RECORDS SUMMARY | 2024-12-11 10:35 | XMS_ITS | Encounter Summary ---
Author Organization [employer] ([place], [place], [place], [place]) Address [address] [place] [address] Care Team Providers Care Band Top Maker Name Role Phone Eladio Lomas MD Unavailable Breanna Crow PA-C Unavailable [phone] Encounter Details Date Type Department Care Team (Late st Contact Info) Description 10/14/2021 Transcribed Document [facility] Family Medicine [address] [place] [address] ProviderJailyn MD [address] [place] [address] Social History Tobacco Use Types [...] Date Ata rded Speak language other than Cape Verdean at home Not on file 05/13/2023 Want [...] 10/14/2021 18:33 EDT Electronically signed by Huy [facility] Conversion Uppers Edge Burnisher Cerner at 08/17/2022 6:01 PM CDT documented in this encounter Plan of Treatment Not on file documented as of this encounter Visit Diagnoses Not on filedocumented in this encounter Care Teams Band Top Maker Relationship Specialty Start Date End Date Eladio Lomas MD [address] [facility] [address] [place] [address] Medical Oncologist Hematology and Oncology 07/08/22 Breanna Crow, CHAVA [address] [address] Physician Gse Mechanic Oncology 07/08/22 documented as of this encounter
--- OUTSIDE RECORDS SUMMARY | 2024-12-11 10:35 | XMS_ITS | Clinical Summary ---
Author Organization [facility] Address [address] [facility] [address] [place] [address] Phone Care Team Providers Care Tariff Compiler Name Role Phone Godfrey ALFARO, José Miguel Michaels [facility] [ ] Conditions or Problems Problem Name Problem Code Onset Date Status Entry Date Provider Comment Standard Description Annotate Acute DVT of leg, right 665392122 (SNOMED CT) Active José Miguel Donahue MD Deep venous thrombosis of lower extremity Health advice, education, or counseling 476277990 (SNOMED CT) Active José Miguel Donahue MD Procedure carried out on subject PERSONAL HISTORY OF IMMUNOSUPPRES PILLO THERAPY 979422209 (SNOMED CT) 12/10 Active 12/10 José Miguel Donahue MD History of immunosuppressiv e therapy Foot drop, right 2027203 (SNOMED CT) 10/27 Active 10/27 José Miguel Donahue MD Foot-drop Benign Essential Hypertension 20653414 (SNOMED CT) 10/22 Active 10/22 Dorothy Juanpablo Benign hypertension Disseminated herpes zoster 06539754 (SNOMED CT) 10/22 Active 10/22 Dorothy Juanpablo Disseminated herpes zoster 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 10/22 Dorothy Juanpablo Leukemoid reaction Chronic lymphoid leukemia 03215157 (SNOMED CT) 10/22 Active 10/22 Dorothy Juanpablo Chronic lymphoid leukemia, disease Medications Medication Instructions Start Date Stop Date Generic Name [facility] Provider ELIQUIS 5 MG TABS twice a day apixaban 40549662999 Tonia Noland VALTREX 1 GM TABS Take 1 tablet by mouth once a day valacyclovir 06668988685 José Miguel Donahue MD ALLOPURINOL 300 MG TABS 1 tablet by mouth once a day allopurinol 29136501900 Suzanne Cope ELIQUIS 5 MG TABS 2 tablet by mouth twice a day apixaban 91511242287 Suzanne Cope PREDNISONE 10 MG TABS Take as directed prednisone 59457862952 Suzanne Cope VALTREX 500 MG TABS 2 tablet by mouth once a day valacyclovir 50263303013 Faby Donahue VALTREX 1 GM TABS Take 1 tablet by mouth once a day valacyclovir 02525930147 Faby Donahue ALLOPURINOL 300 MG TABS 1 tablet by mouth once a day allopurinol 87055592649 Marianayvette Wiggins ELIQUIS 5 MG TABS 2 tablet by mouth twice a day apixaban 22174595853 Marianayvette Wiggins Lactobacillus acidophilus 1 billion cell capsule 1 capsule by mouth twice a day lactobacillus acidophilus Mariana Wiggins MULTI-VITAMINS TABS multivitamin 35512781748 Mariana Wiggins PREDNISONE 10 MG TABS Take as directed prednisone 22205606514 Mariana Wiggins TYLENOL 325 MG TABS 2 tablet by mouth every four hours as needed acetaminophen 34784374711 Mariana Wiggins VALTREX 500 MG TABS 2 tablet by mouth once a day valacyclovir 72981862675 Mariana Rosalie Medications Administered No information available. [...] Labs CPT-sl STAT Labs CPT-sl STAT Labs CPT-40166 CMP [id number] CBC with Differential 2021 Vital Signs Date [...]
--- OUTSIDE RECORDS SUMMARY | 2024-12-11 10:35 | XMS_ITS | Encounter Summary ---
Author Organization [employer] ([place], [place], [place], [place]) Address [address] [place] [address] Care Team Providers Care Outbound Sales Consultant Name Role Phone Eladio Lomas MD Unavailable Breanna Crow PA-C Unavailable [phone] Encounter Details Date Type Department Care Team (Late st Contact Info) Description 01/01/2022 Transcribed Document [facility] [place] Family Medicine [address] [place] [address] ProviderJailyn MD [address] [place] [address] Social History Tobacco Use Types [...] lysis, facetectomy, L4-5 SURGEON: Garcia Workman MD. CALL CENTER RECRUITER: Roberto Plata ANESTHESIA: General. ESTIMATED BLOOD LOSS: [...] on filedocumented in this encounter Care Teams Outbound Sales Consultant Relationship Specialty Start Date End Date Eladio Lomas MD [address] [facility] [address] [place], [place] [address] Medical Oncologist Hematology and Oncology 07/08/22 Breanna Crow PACecilia [address] [facility] [address] [place] [address] Physician Polymerization Helper Oncology 07/08/22 documented as of this encounter
--- OUTSIDE RECORDS SUMMARY | 2024-12-11 10:35 | XMS_ITS | Encounter Summary ---
Author Organization [employer] ([place], [place], [place], [place]) Address [address] [place] [address] Care Team Providers Care Extension Work Instructor Name Role Phone Eladio Lomas MD Unavailable Breanna Crow PA-C Unavailable [phone] Encounter Details Date Type Department Care Team (Late st Contact Info) Description 10/15/2021 Transcribed Document [facility] [place] Family Medicine [address] [place] [address] ProviderJailyn MD [address] [place] [address] Social History Tobacco Use Types [...] 4:48 EDT by Tessy Gramajo RN-PATIENT [facility]ARE [facility] Advance Directive Patient has Advance Directive *Q : Yes, Advance Directive not with the patient Advance Directive Type : Living will Advance Directive Date : 11/28/2017 EDT Copy Advance Directive Verified/on Chart : No Tessy Gramajo RN-PATIENT [facility] - 10/15/2021 4:48 EDT Anesthesia/Transfusion History Family History of Anesthesia Reaction : No prior transfusion(s) Blood Transfusion Acceptable to Patient : Yes Transfusion History : Prior anesthesia without reaction Family History of Anesthesia Reaction : None Tessy Gramajo RN-PATIENT [facility] - 10/15/2021 4:48 EDT Anticipated Discharge Needs Discharge To, Anticipated : Home Anticipated Discharge Needs at This Time : None Tessy Gramajo RN-PATIENT [facility] - 10/15/2021 4:48 EDT Education Topics, [...] : Verbalizes understanding Tessy Gramajo RN-PATIENT [facility] - 10/15/2021 4:48 EDT Functional Assessment Living Situation : Home Patient Lives With : Spouse Persons Assisting Patient at Home : Spouse Current Daily Living Assistance : None Mobility Assistance Prior to Admission : Independent KOWALSKI Hx Falls Immediate/Within 3 Months : Yes Current Home Treatments : None Home Equipment : None Tessy Gramajo RN-PATIENT [facility] - 10/15/2021 4:48 EDT General Info [...] Obtained From : Patient Primary Language : Cook Islander Communication Barrier : None Recordist Chief Needed : No Tessy Gramajo RN-PATIENT CARE [...] Level : 46 or > High Risk [place]askell Fall Interventions : Adequate lighting, Assistive devices [...] Source : Stated Height Entry Format : Mccone Height, Feet : 5 ft(Converted to: 152 cm, 60 Inch) Height, Inches : 6 Inch(Converted to: 0 ft 6 Inch, 15.24 cm) Clinical Height : 167.64 cm Weight Source : Bed scale Weight Entry Format : Mccone Clinical Dosing Weight : 59.69 kg Weight, Pounds : 131 lb Weight, Ounces : 5 oz Body Surface Area (BSA) : 1.67 m2 Body Mass Index : 21.2 kg/m2 Rosamond Body Weight : 63 kg Tessy Gramajo RN-PATIENT [facility] - 10/15/2021 4:48 EDT Infectious Disease History Does patient have symptoms of COVID-19? : No Tested for COVID19 in the past 14 days : No, Patient stated Does the Patient state known exposure to a COVID-19 positive case in the last 14 days? : No Patient Vaccinated for COVID-19 : Fully vaccinated Tessy Gramajo RN-[facility]IENT [facility] - 10/15/2021 4:48 EDT Infectious Disease [...] day) : NO Tessy Gramajo RN-[facility]IENT [facility] - 10/15/2021 4:48 EDT Physical contact outside [place] in the last 30 days : No Hospitalized in Foreign Country : No Infectious Disease History : Chicken pox/Shingles, Measles INF Disease TB Screening Calc : 0 INF Disease Recent Travel Calc : 0 Tessy Gramajo RN-[facility]IENT [facility] - 10/15/2021 4:48 EDT Tetanus Immunization Status Previous Tetanus Immunizations : No qualifying data available. Tetanus Immunization : Greater than 5 years Tessy Gramajo RN-PATIENT [facility] - 10/15/2021 4:48 EDT Influenza Vaccine Asmt, Adult Previous Vaccines from Immunization Schedule : No qualifying data available. Influenza Immunization, Current Season : Yes Tessy Gramajo RN-PATIENT [facility] - 10/15/2021 4:48 EDT Pneumococcal Vaccine Previous Vaccines from Immunization Schedule : No qualifying data available. Pneumonia Immunization Received : Unknown Pneumococcal Risk Assessment < Age 65 : N/A- Patient 65 years of age or older Pneumococcal Vaccine Contraindications : No contraindications to pneumococcal vaccine Transplant Workup/Recent Transplant : No Order for Pneumococcal Vaccine : Declined Vaccination Tessy Gramajo RN-[facility]IENT [facility] - 10/15/2021 4:48 EDT Order Details Order Detail : N/A Patient Needs Meds Crushed/Liquid : No Tessy Gramajo RN-[facility]IENT [facility] - 10/15/2021 4:48 EDT Nutrition History Feeding Ability : Independent Adaptive Feeding Equipment : None Adaptive Feeding Equipment : Regular Eating Poorly Due to Decreased Appetite : Yes Unplanned Weight Loss in Past 3-6 Months : Unsure Unplanned Weight Loss Amount : Unsure Malnutrition Screening Tool Total(mal) : 5 Malnutrition Screening Tool Risk Level : Patient at risk Tessy Gramajo RN-[facility] - 10/15/2021 4:48 EDT [place] Suicide Severity Rating Scale (C-SSRS) CSSRS Past Month Wish to be : No CSSRS Past Month Suicidal Thoughts : No CSSRS Lifetime Suicide Behavior : No Suicide Severity Rating Score : 0 Suicide Severity Rating : No Additional Care Required at this time Tessy Gramajo RN-[facility] - 10/15/2021 4:48 EDT Psychosocial History Does Someone Depend on You for Care? : No Chronic/Terminal Illness w/Freq Visits : Yes Do You Have a History of the Following? : Patient denies history Currently in Unsafe Situation : No Do You Have a Support System? : Yes Tessy Gramajo RN-[facility]IENT [facility] - 10/15/2021 4:48 EDT Sleep Apnea [...] Score : 3 Tessy Gramajo RN-PATIENT [facility] - 10/15/2021 4:48 EDT Spiritual/Cultural Needs Any Spiritual/Cultural Needs or Requests : No Tessy Gramajo RN-PATIENT [facility] - 10/15/2021 4:48 EDT Valuables and [...] on filedocumented in this encounter Care Teams Extension Work Instructor Relationship Specialty Start Date End Date Eladio Lomas MD [address] [place] [address] Medical Oncologist Hematology and Oncology 07/08/22 Breanna Crow, PA-C [address] [place] [address] Physician Hydrogeology Professor Oncology 07/08/22 documented as of this encounter
--- OUTSIDE RECORDS SUMMARY | 2024-12-11 10:36 | XMS_ITS | Encounter Summary ---
Author Organization [employer] ([place], [place], [place], [place]) Address [address] [place] [address] Care Team Providers Care Traffic Engineer Name Role Phone Eladio Lomas MD Unavailable Breanna Crow PA-C Unavailable [phone] Encounter Details Date Type Department Care Team (Late st Contact Info) Description 12/29/2021 Transcribed Document [facility] Family Medicine [address] [place] [address] ProviderJailyn MD [address] [place] [address] Social History Tobacco Use Types [...] 12/29/2021 10:30 EDT Electronically signed by Huy [facility] Conversion Senior Staff Psychologist Cerner at 08/17/2022 6:19 PM CDT documented in this encounter Plan of Treatment Not on file documented as of this encounter Visit Diagnoses Not on filedocumented in this encounter Care Teams Traffic Engineer Relationship Specialty Start Date End Date Eladio Lomas MD [address] [facility] [address], [place] [address] Medical Oncologist Hematology and Oncology 07/08/22 Breanna Crow, PA-C [address] [facility] [address] [place] [address] Physician Galley Boy Oncology 07/08/22 documented as of this encounter
--- OUTSIDE RECORDS SUMMARY | 2024-12-11 10:36 | XMS_ITS | Encounter Summary ---
Author Organization [employer] ([place], [place], [place], [place]) Address [address] [place] [address] Care Team Providers Care Tapping Machine Operator Name Role Phone Eladio Lomas MD Unavailable Breanna Crow PA-C Unavailable [phone] Encounter Details Date Type Department Care Team (Late st Contact Info) Description 01/01/2022 Transcribed Document [facility] [place] Family Medicine [address] [place] [address] ProviderJailyn MD [address] [place] [address] Social History Tobacco Use Types [...] these instructions at home: Medicines ??? Take lyhw-ckf-gfmccpq and prescription medicines as told by your [...] keep your urine pale yellow. ? Take ynna-crp-pqmfyvq or prescription medicines. ? Eat foods that [...] and water are not available, use hand thermoscrew operator. ? Change your dressing as told [...] safe to drive. General instructions ??? Take gadq-nkb-lhwjkil and prescription medicines only as told by [...] provider. Document Revised: 08/06/2020 Document Reviewed: 08/06/2020 [employer] Patient Education ? 2021 [employer] Laminectomy, Care After This sheet gives [...] these instructions at home: Medicines ??? Take ixzm-tmf-nudawoa and prescription medicines only as told by [...] keep your urine pale yellow. ? Take xnbd-zog-fotzchk or prescription medicines. ? Eat foods that [...] and water are not available, use hand thermoscrew operator. ? Change your dressing as told [...] provider. Document Revised: 11/12/2019 Document Reviewed: 11/12/2019 [employer] Patient Education ? 2021 [employer]. documented in this encounter Plan of Treatment Not on file documented as of this encounter Visit Diagnoses Not on filedocumented in this encounter Care Teams Tapping Machine Operator Relationship Specialty Start Date End Date Eladio Lomas MD [address] [facility] [address] [place] [id number] Medical Oncologist Hematology and Oncology 07/08/22 Breanna Crow PA-C [address] [place] [address] Physician Art Education Professor Oncology 07/08/22 documented as of this encounter
--- OUTSIDE RECORDS SUMMARY | 2024-12-11 10:36 | XMS_ITS | Encounter Summary ---
Author Organization [employer] ([place], [place], [place], [place]) Address [address] [place] [address] Care Team Providers Care Virtualization Engineer Name Role Phone Eladio Lomas MD Unavailable Breanna Crow PA-C Unavailable [phone] Encounter Details Date Type Department Care Team (Late st Contact Info) Description 10/17/2021 Transcribed Document [facility] [place] Family Medicine [address] [place] [address] ProviderJailyn MD [address] [place] [address] Social History Tobacco Use [...] Ata rded Speak language other than [place] at home Not on file 05/13/2023 Want [...] lower motor neuron process.. Integumentary: Warm, Dry, [place]. Neurologic: Alert, Oriented, Cranial Nerves II-XII are [...] the rash. Leukocytosis, procalcitonin ordered. Disposition: Pending property consultant recommendations and plans, still needs further [...] # 4.35 K/uL (High) 10/17/2021 02:21 EDT [place] % 15.2 % (High) 10/17/2021 02:21 EDT [place] # 2.14 K/uL (High) 10/17/2021 02:21 EDT [...] Second(s) 10/17/2021 02:21 EDT Electronically signed by [facility] Conversion Clinical Research Spec Cerner at 08/17/2022 6:20 PM CDT documented in this encounter Plan of Treatment Not on file documented as of this encounter Visit Diagnoses Not on filedocumented in this encounter Care Teams Virtualization Engineer Relationship Specialty Start Date End Date Eladio Lomas MD [address] [facility] [address] [place] [address] Medical Oncologist Hematology and Oncology 07/08/22 Breanna Crow PA-C [address] [facility] [address] [place] [address] Physician Shirt Hemmer Oncology 07/08/22 documented as of this encounter
--- OUTSIDE RECORDS SUMMARY | 2024-12-11 10:36 | XMS_ITS | Encounter Summary ---
Author Organization [employer] ([place], [place], [place], [place]) Address [address] [place] [address] Care Team Providers Care Director Law Enforcement Name Role Phone Eladio Lomas MD Unavailable Breanna Crow PA-C Unavailable [phone] Encounter Details Date Type Department Care Team (Late st Contact Info) Description 01/01/2022 Transcribed Document [facility] Family Medicine [address] [place] [address] ProviderJailyn MD [address] [place] [address] Social History Tobacco Use Types [...] Pt. Name: CORBIN HU /Sex: 1950 Male [facility] Rec #: [id number] Physician: GARCIA WORKMAN MD-ORT Financial #: [id number] Pt. Type: O Room/Bed: [facility] Admit/Disch: 01/01/22 09:26:00 - Institution: [facility]Op Case Attendance Entry 1 Entry 2 Entry 3 Case Attendee GARCIA WORKMAN MD-ORT MCDONALD, LEAH BETH, Bowling, Jachob, CRNA [email or web address] Role Performed Surgeon/Proceduralist, ENVIRONMENTAL CONTROL ADMINISTRATOR/Nurse Barge Captain ENVIRONMENTAL CONTROL ADMINISTRATOR/Nurse Barge Captain First Time In 01/01/22 10:42:00 01/01/22 10:42:00 01/01/22 10:42:00 Time Out 01/01/22 11:49:00 01/01/22 11:49:00 01/01/22 11:49:00 Procedure Lumbar Laminectomy Lumbar Laminectomy Lumbar Laminectomy Other Attendee Superficial Wound Closed By: Last Modified By: SAMMIE PEREZ RN LONGSWORTH, GARY, RN LONGSWORTH, GARY, RN 01/01/22 11:49:14 01/01/22 11:49:14 01/01/22 11:49:14 Entry 4 Entry 5 Entry 6 Case Attendee SAMMIE PEREZ, Lea Charles, RN Paulina Joseph, Satellite Installation Technician Role Performed Building Carpenter, First Building Carpenter, Second Scrub, First Time In 01/01/22 10:42:00 01/01/22 10:42:00 01/01/22 10:42:00 Time Out 01/01/22 11:49:00 01/01/22 11:49:00 01/01/22 11:49:00 Procedure Lumbar Laminectomy Lumbar Laminectomy Lumbar Laminectomy Other Attendee Superficial Wound Closed By: Last Modified By: SAMMIE PEREZ RN LONGSWORTH, GARY, SAMMIE VARNER RN 01/01/22 11:49:14 01/01/22 11:49:14 01/01/22 11:49:14 Entry 7 Entry 8 Entry 9 Case Attendee Layla Padilla, CHRISTOFER ARDON, Masha Queen, Armature Rewinder Role Performed Scrub, Second Physician surgical assistant certified Embedded Hardware Engineer Time In 01/01/22 10:42:00 01/01/22 10:42:00 01/01/22 10:42:00 Time Out 01/01/22 11:49:00 01/01/22 11:49:00 01/01/22 11:49:00 Procedure Lumbar Laminectomy Lumbar Laminectomy Lumbar Laminectomy Other Attendee Superficial Wound Closed By: Last Modified By: SAMMIE PEREZ, SAMMIE VARNER, RN SAMMIE PEREZ, SHARYN 01/01/22 11:49:14 01/01/22 11:49:14 01/01/22 11:49:14 [facility] IntraOp Case Attendance Audit 01/01/22 11:49:14 Cattle Alley Worker: SAM Modifier: LONGGA 1 <+> Time In [...] 9 <*> Procedure Lumbar Laminectomy 01/01/22 10:34:07 Cattle Alley Worker: SAM Modifier: LONGGA <+> 1 Procedure 2 [...] [facility] IntraOp Case Times Audit 01/01/22 11:49:13 Cattle Alley Worker: LONGGA Modifier: LONGGA <+> 1 Out Room Time <+> 1 Stop Time <+> 1 Stop Time 01/01/22 11:07:50 Cattle Alley Worker: LONGGA Modifier: LONGGA <+> 1 Start Time [...] 11:10:17 [facility] IntraOp Cautery Audit 01/01/22 11:10:35 Cattle Alley Worker: LONGGA Modifier: LONGGA 1 <*> Grounding Pad [...] RN 01/01/22 10:31:33 [facility] IntraOp General Case Bottle Booth Attendant 1 Case Information OR OR 01 [facility] Case Level 1 Room Verified Yes Wound Class 1 - Clean Specialty Neurosurgery Anesthesia Type General ASA Class 2 Diagnosis Preop Diagnosis STENOSIS L4-5 Postop Same As Preop Yes Postop Diagnosis STENOSIS L4-5 Wound Class Definitions Last Modified By: SAMMIE PEREZ RN 01/01/22 10:47:20 [facility] IntraOp General Case Data Audit 01/01/22 10:47:20 Cattle Alley Worker: [email or web address] Modifier: LONGGA 1 <*> OR OR [...] 1ml epinephrine 1:200,000 topical kit injection - [id number] 30ml vial - [id number] (recombinant) - [id number] Combo Med List Time Administered Route of [...] [facility] IntraOp Medication Admin Audit 01/01/22 11:28:39 Cattle Alley Worker: LONGGA Modifier: LONGGA <+> 3 Medication/Irrigant <+> [...] [facility] IntraOp Surgical Procedures Audit 01/01/22 11:41:50 Cattle Alley Worker: LONGGA Modifier: LONGGA 1 <*> Procedure Lumbar Laminectomy 1 <+> Stop 01/01/22 11:38:39 Cattle Alley Worker: LONGGA Modifier: LONGGA 1 <*> Procedure Lumbar Laminectomy 1 <*> Additional Procedure Description RIGHT L4-5 LAMINECTOMY, DISCECTOMY 01/01/22 11:07:55 Cattle Alley Worker: LONGGA Modifier: LONGGA <+> 1 Start [facility] IntraOp Temp Regulation Devices Entry 1 Temp Regulation Temperature Warm blankets Regulation Device Temperature Upper body Regulation Site Temperature LARRY GAMINO, Regulation Device ENVIRONMENTAL CONTROL ADMINISTRATOR Applied by Last Modified By: SAMMIE PEREZ [...] Type Fluoroscopy Fluoroscopy Type C-Arm Site BACK Saddle And Side Wire Stitcher Name Masha Sanders, Armature Rewinder Protective Devices Yes Used Last Modified By: [...] filedocumented in this encounter Care Teams Director Law Enforcement Relationship Specialty Start Date End Date Eladio Lomas MD [address] [facility] [address] [address] Medical Oncologist Hematology and Oncology 07/08/22 Breanna Crow PA-C [address] [place] [address] [place] [address] Physician Milk Route Deliverer Oncology 07/08/22 documented as of this encounter
--- OUTSIDE RECORDS SUMMARY | 2024-12-11 10:36 | XMS_ITS | Encounter Summary ---
Author Organization [employer] ([place], [place], [place], [place]) Address [address] [place] [address] Care Team Providers Care Sales Assistant Entertainment And Media Name Role Phone Eladio Lomas MD Unavailable Breanna Crow PA-C Unavailable [phone] Encounter Details Date Type Department Care Team (Late st Contact Info) Description 01/01/2022 Transcribed Document [facility] [place] [address] [place] [address] ProviderJailyn MD [address] [place] [address] Social History Tobacco Use Types [...] HU /Sex: 1950 Male Med Rec #: [id number] Physician: GARCIA WORKMAN MD-ORT Financial #: [id number] Pt. Type: O Room/Bed: [facility] Admit/Disch: 01/01/22 09:26:00 - Institution: [facility] Main OR PACU Case Times Entry 1 In PACU I 01/01/22 11:50:00 Ready for PACU 01/01/22 12:38:00 Discharge Discharge from PACU 01/01/22 12:38:00 I Last Modified By: Lashay Liu RN 01/01/22 12:45:05 [facility] Main OR PACU Case Times Audit 01/01/22 12:45:05 Pulp Beater: SXPOWERS Modifier: SXPOWERS <+> 1 Ready for PACU Discharge <+> 1 Discharge from PACU I Finalized By: Lashay Liu, RN Document Signatures Signed By: Lashay Liu RN 01/01/22 12:45 Electronically signed by Huy [facility] Conversion Roof Painter Cerner at 08/17/2022 5:57 PM CDT documented in this encounter Plan of Treatment Not on file documented as of this encounter Visit Diagnoses Not on filedocumented in this encounter Care Teams Sales Assistant Entertainment And Media Relationship Specialty Start Date End Date Eladio Lomas MD [address] [facility] [address] [place] [address] Medical Oncologist Hematology and Oncology 07/08/22 Breanna Crow PA-C [address] [facility] [address] [place] [address] Physician Envelope Sealer Operator Oncology 07/08/22 documented as of this encounter
--- OUTSIDE RECORDS SUMMARY | 2024-12-11 10:36 | XMS_ITS | Encounter Summary ---
Author Organization [employer] ([place], [place], [place], [place]) Address [address] [place] [address] Care Team Providers Care Water Purification Chemist Name Role Phone Eladio Lomas MD Unavailable Breanna Crow PA-C Unavailable [phone] Encounter Details Date Type Department Care Team (Late st Contact Info) Description 10/16/2021 Transcribed Document [facility] Family Medicine [address] [place] [address] ProviderJailyn MD [address] [place] [address] Social History Tobacco Use Types [...] filedocumented in this encounter Care Teams Water Purification Chemist Relationship Specialty Start Date End Date Eladio Lomas MD [address] [address] Medical Oncologist Hematology and Oncology 07/08/22 Breanna Crow PA-C [address] [place] [address] [address] [place] [address] Physician Bundle Collector Oncology 07/08/22 documented as of this encounter
--- OUTSIDE RECORDS SUMMARY | 2024-12-11 10:36 | XMS_ITS | Encounter Summary ---
Author Organization [employer] ([place], [place], [place], [place]) Address [address] [place] [address] Care Team Providers Care Uniforms Sales Representative Name Role Phone Eladio Lomas MD Unavailable Breanna Crow PA-C Unavailable [phone] Encounter Details Date Type Department Care Team (Late st Contact Info) Description 10/20/2021 Transcribed Document [facility] Family Medicine [address] [place] [address] ProviderJailyn MD [address] [place] [address] Social History Tobacco Use Types [...] Health Plan: [employer] CHO[employer] PPO Policy Number: [id number] Authorization Number: Insurance Primary Name : [employer] CHOICE PPO [id number] Authorization Status-Primary : Denied Reference Number-Primary : [id number] Authorized Service Begin Date-Primary : 10/15/2021 EDT Authorization Comments-Primary : Emailed denial to [employer]/[facility]ley Historical Authorization Comments-Primary : Comment 1: Rec faxed Denial from [employer] 10/19/21 Placed in tray on [employer] desk (KEI JEAN-BAPTISTE, Lathe Spotter 10/19/2021 13:08) Comment 2: [employer] CHOICE PPO [...] on filedocumented in this encounter Care Teams Uniforms Sales Representative Relationship Specialty Start Date End Date Eladio Lomas MD [address] [facility] [address] [place] [address] Medical Oncologist Hematology and Oncology 07/08/22 Breanna Crow PA-C [address] [facility] [address] [place] [address] Physician Performance Makeup Artist Oncology 07/08/22 documented as of this encounter
--- OUTSIDE RECORDS SUMMARY | 2024-12-11 10:36 | XMS_ITS | Encounter Summary ---
Author Organization [employer] ([place], [place], [place], [place]) Address [address] [place] [address] Care Team Providers Care General Practitioner Name Role Phone Eladio Lomas MD Unavailable Breanna Crow PA-C Unavailable [phone] Encounter Details Date Type Department Care Team (Late st Contact Info) Description 01/01/2022 Transcribed Document [facility] Family Medicine [address] [place] [address] ProviderJailyn MD [address] [place] [address] Social History Tobacco Use Types [...] Date Ata rded Speak language other than Samoan at home Not on file 05/13/2023 Want [...] Historical Provider, - 01/01/2022 1:04 [place] [address] SARAH HU :1950 Visit Time:01/01/2022 What to [...] for follow-up date and appointment time Activity: [place] dressing. Do not remove. May shower with [...] When 01/14/2022 11:00 AM EDT Where: [address] [place] [address] [address] [place] [address]- Medications What How Much When Instructions Next Dose acetaminophen-oxyCODONE (Percocet 7.5/ 325 oral tablet) 1 Tablet(s) Oral Three Times A Day as needed for for pain Pickup at [facility] acetaminophen (Tylenol 325 mg oral tablet) 2 Tablet(s) Oral Every 4 Hours as needed for Pain (Mild 1-3) ergocalciferol (ergocalciferol 50 mcg (2000 intl units) oral capsule) 1 Capsule(s) Oral Every Day Duration: 14 Day(s) multivitamin (Multiple Vitamins oral tablet) 1 Tablet(s) Oral Every Day valACYclovir (Valtrex 1 g oral tablet) 1 Tablet(s) Oral Every Day Pharmacy Information [facility]: [address] [place] [address] [phone] Take your medications faithfully. Do NOT skip [...] these instructions at home: Medicines ??? Take kgzg-lvu-zvxprpv and prescription medicines as told by your [...] keep your urine pale yellow. ? Take pqfu-dbw-awmaexj or prescription medicines. ? Eat foods that [...] and water are not available, use hand sheet pile driver operator. ? Change your dressing as told [...] safe to drive. General instructions ??? Take shtu-ohe-jodbuii and prescription medicines only as told by [...] provider. Document Revised: 08/06/2020 Document Reviewed: 08/06/2020 [employer] Patient Education ?? 2021 [employer] Laminectomy, Care After This sheet gives [...] these instructions at home: Medicines ??? Take fyag-xnp-fapqzxc and prescription medicines only as told by [...] keep your urine pale yellow. ? Take duvj-qfq-rzwebto or prescription medicines. ? Eat foods that [...] and water are not available, use hand sheet pile driver operator. ? Change your dressing as told [...] provider. Document Revised: 11/12/2019 Document Reviewed: 11/12/2019 [employer] Patient Education ?? 2021 [employer]. Emergency Awareness and Preventative Care STROKE is [...] Assistance with quitting is available by contacting 9-037-BUWG-NOW. This is a free resource providing counseling, [...] was given the opportunity to ask questions. Patient/Senior Safety Support Manager Name: Patient/Senior Safety Support Manager Signature: Relationship to Patient: Clinician/Hospital Senior Safety Support Manager Signature: Date: documented in this encounter Plan of Treatment Not on file documented as of this encounter Visit Diagnoses Not on filedocumented in this encounter Care Teams General Practitioner Relationship Specialty Start Date End Date Eladio Lomas MD [address] [facility] [address] [place], [place] [address] Medical Oncologist Hematology and Oncology 07/08/22 Breanna Crow PARebelC [address] [facility] [address] [place] [address] Physician Burial Vault Maker Oncology 07/08/22 documented as of this encounter
--- OUTSIDE RECORDS SUMMARY | 2024-12-11 10:36 | XMS_ITS | Encounter Summary ---
Author Organization [employer] ([place], [place], [place], [place]) Address [address] [place] [address] Care Team Providers Care Bookstore Manager Name Role Phone Eladio Lomas MD Unavailable Breanna Crow PA-C Unavailable [phone] Encounter Details Date Type Department Care Team (Late st Contact Info) Description 10/29/2021 Transcribed Document [facility] [place] Family Medicine [address] [place] [address] ProviderJailyn MD [address] [place] [address] Social History Tobacco Use Types [...] Health Plan: [employer] CHOICE PPO Policy Number: [id number] Authorization Number: Insurance Primary Name : [employer] PPO [id number] Authorization Status-Primary : Denied Reference Number-Primary : [id number] Authorized Service Begin Date-Primary : 10/15/2021 EDT [...] 13:43) Comment 2: Rec faxed Denial from [facility] 10/19/21 Placed in tray on [employer] desk (KEI JEAN-BAPTISTE, Sweatband Perforator 10/19/2021 13:08) Comment 3: [employer] PPO auth still pending per availity (JUANITA HUGO, SHARYN-Utilization Review 10/19/2021 11:01) Comment 4: Clinicals faxed via [employer] (Natalie Lauren, Sharyn-Utilization Review 10/15/2021 09:30) Comment 5: [employer] CHOICE PPO auth pending per [employer] note. (JUANITA HUGO RN-Utilization Review 10/15/2021 09:18) DIETER MAR RN - 10/29/2021 8:47 EDT Electronically signed by Harjeet Son Conversion Furnace Charging Machine Operator Cerner at 08/17/2022 6:16 PM CDT documented in this encounter Plan of Treatment Not on file documented as of this encounter Visit Diagnoses Not on filedocumented in this encounter Care Teams Bookstore Manager Relationship Specialty Start Date End Date Eladio Lomas MD 12[address] [facility] [address] [place] [address] Medical Oncologist Hematology and Oncology 07/08/22 Breanna Crow, CHAVA [address] [address] Physician Party Planner Oncology 07/08/22 documented as of this encounter
--- OUTSIDE RECORDS SUMMARY | 2024-12-11 10:36 | XMS_ITS | Encounter Summary ---
Author Organization [employer] ([place], [place], [place], [place]) Address [address] [place] [address] Care Team Providers Care Buggyman Name Role Phone Eladio Lomas MD Unavailable Breanna Crow PA-C Unavailable [phone] Encounter Details Date Type Department Care Team (Late st Contact Info) Description 10/16/2021 Transcribed Document [facility] [address] [place] [address] Romero Dias MD [address] [place] [address] Social History Tobacco Use Types [...] no evidence of a meningeal encephalitis or [place]?? secondary to his varicella and I [...] Shortness of Breath Lovenox: 40 mg, SubCutaneous, [id number] MiraLax: 17 Gram, Oral, Daily, PRN: Constipation [...] mL inj 40 mg 0.4 mL, SubCutaneous, [id number] famotidine 20 mg tab 20 mg 1 [...] At risk for sleep apnea / IMO [id number] / Confirmed, Active Problems (2) At risk [...] lower motor neuron process.. Integumentary: Warm, Dry, [place]. Neurologic: Alert, Oriented, Cranial Nerves II-XII are [...] on filedocumented in this encounter Care Teams Buggyman Relationship Specialty Start Date End Date Eladio Lomas MD [address] [address] Medical Oncologist Hematology and Oncology 07/08/22 Breanna Crow PA-C [address] [facility] [address] [place] [address] Physician Web Worker Oncology 07/08/22 documented as of this encounter
--- OUTSIDE RECORDS SUMMARY | 2024-12-11 10:36 | XMS_ITS | Encounter Summary ---
Author Organization [employer] ([place], [place], [place], [place]) Address [address] [place] [address] Care Team Providers Care Design Painter Name Role Phone Eladio Lomas MD Unavailable Breanna Crow PA-C Unavailable [phone] Encounter Details Date Type Department Care Team (Late st Contact Info) Description 10/16/2021 Transcribed Document [facility] [place] [address] [place] [address] ProviderJailyn MD [address] [place] [address] Social History Tobacco Use Types [...] Date Ata rded Speak language other than Puerto Rican at home Not on file 05/13/2023 [...] On: 10/16/2021 15:13 EDT by Jessica Rivera, [facility] Unit Coord Phone Call for Consults Consult Phone Call/Page Attempt : First call Physician Covering for Consult : TRENA DONAHUE MD-INF Consult, Additional Information : Consult called in to Dr. Trena Donahue, he stated that if Dr Edwin Carver had not seen them today, he would see them tomorrow Jessica Rivera, [facility] Coord - 10/16/2021 17:43 EDT Electronically signed by Huy [facility] Conversion Labor Relations Specialist Cerner at 08/17/2022 6:08 PM CDT documented in this encounter Plan of Treatment Not on file documented as of this encounter Visit Diagnoses Not on filedocumented in this encounter Care Teams Design Painter Relationship Specialty Start Date End Date Eladio Lomas MD [address] [address] Medical Oncologist Hematology and Oncology 07/08/22 Breanna Crow, PA-C [address] [place] [address] [address] [place] [address] Physician Flight Technician Oncology 07/08/22 documented as of this encounter
--- OUTSIDE RECORDS SUMMARY | 2024-12-11 10:36 | XMS_ITS | Encounter Summary ---
Author Organization [employer] ([place], [place], [place], [place]) Address [address] [place] [address] Care Team Providers Care Wool Sampler Name Role Phone Eladio Lomas MD Unavailable Breanna Crow PA-C Unavailable [phone] Encounter Details Date Type Department Care Team (Late st Contact Info) Description 01/01/2022 Transcribed Document [facility] [place] [address] [place] [address] ProviderJailyn MD [address] [place] [address] Social History Tobacco Use Types [...] HU /Sex: 1950 Male Med Rec #: [id number] Physician: GARCIA WORKMAN MD-ORT Financial #: [id number] Pt. Type: O Room/Bed: [facility] Admit/Disch: 01/01/22 09:26:00 - Institution: [facility] PreOp Case Times Entry 1 In Preop 01/01/22 07:55:00 Ready for Holding n/a Room Patient Ready for 01/01/22 10:10:00 Surgery Patient Out of Preop 01/01/22 10:37:00 Patient Out of n/a Holding Room Last Modified By: Ansley Lane RN 01/01/22 10:47:06 [place] PreOp Case Times Audit 01/01/22 10:47:06 Truck Engine Assembler: [id number] Modifier: [id number] <+> 1 Patient Out of Preop Finalized By: Ansley Lane, RN Document Signatures Signed By: Ansley Lane RN 01/01/22 10:47 Electronically signed by Huy [facility] Conversion Nutrient Management Specialist Cerner at 08/17/2022 6:02 PM CDT documented in this encounter Plan of Treatment Not on file documented as of this encounter Visit Diagnoses Not on filedocumented in this encounter Care Teams Wool Sampler Relationship Specialty Start Date End Date Eladio Lomas MD 12[address] [facility] [address] [address] Medical Oncologist Hematology and Oncology 07/08/22 Breanna Crow PA-C [address] [facility] [address] [place] [address] Physician Child Welfare Counselor Oncology 07/08/22 documented as of this encounter
--- OUTSIDE RECORDS SUMMARY | 2024-12-11 10:36 | XMS_ITS | Encounter Summary ---
Author Organization [employer] ([place], [place], [place], [place]) Address [address] [place] [address] Care Team Providers Care Educational Interpreter Name Role Phone Eladio Lomas MD Unavailable Breanna Crow PA-C Unavailable [phone] Encounter Details Date Type Department Care Team (Late st Contact Info) Description 01/01/2022 Transcribed Document [facility] Family Medicine [address] [place] [address] ProviderJailyn MD [address] [place] [address] Social History Tobacco Use Types [...] Date Ata rded Speak language other than Rwandan at home Not on file 05/13/2023 Want [...] 01/01/2022 10:44 EDT Electronically signed by Huy [facility] Conversion Tie Bucker Cerner at 08/17/2022 6:06 PM CDT documented in this encounter Plan of Treatment Not on file documented as of this encounter Visit Diagnoses Not on filedocumented in this encounter Care Teams Educational Interpreter Relationship Specialty Start Date End Date Eladio Lomas MD [address] [facility] [address] [place] [address] Medical Oncologist Hematology and Oncology 07/08/22 Braenna Crow PA-C [address] [facility] [address] [place] [address] Physician Elementary School Social Worker Oncology 07/08/22 documented as of this encounter
--- OUTSIDE RECORDS SUMMARY | 2024-12-11 10:36 | XMS_ITS | Encounter Summary ---
Author Organization [employer] ([place], [place], [place], [place]) Address [address] [place] [address] Care Team Providers Care Materials Inspector Name Role Phone Eladio Lomas MD Unavailable Breanna Crow PA-C Unavailable [phone] Encounter Details Date Type Department Care Team (Late st Contact Info) Description 10/18/2021 Transcribed Document [facility] [place] [address] [place] [address] ProviderJailyn MD [address] [place], [...] 14:35 EDT by Celina Marley Non Emp woven blind loom tender Documentation Discharge Date/Time : 10/18/2021 12:50 EDT [...] - 10/18/2021 14:35 EDT Electronically signed by Harjeet Son Conversion Casting Machine Control Board Operator Cerner at 08/17/2022 6:13 PM CDT documented in this encounter Plan of Treatment Not on file documented as of this encounter Visit Diagnoses Not on filedocumented in this encounter Care Teams Materials Inspector Relationship Specialty Start Date End Date Eladio Lomas MD [address] [address] Medical Oncologist Hematology and Oncology 07/08/22 Breanna Crow PA-C [address] [facility] [address] [place] [address] Physician Fire Control System Installer Oncology 07/08/22 documented as of this encounter
--- OUTSIDE RECORDS SUMMARY | 2024-12-11 10:36 | XMS_ITS | Encounter Summary ---
Author Organization [employer] ([place], [place], [place], [place]) Address [address] [place] [address] Care Team Providers Care Extrusion Former Name Role Phone Eladio Lomas MD Unavailable Breanna Crow PA-C Unavailable [phone] Encounter Details Date Type Department Care Team (Late st Contact Info) Description 10/26/2021 Transcribed Document [facility] [place] Family Medicine [address] [place] [address] ProviderJailyn MD [address] [place] [address] Social History Tobacco Use Types [...] Discharge Summary on 10/18/2021 by Wilberto Brantley CDS/Blow Molder Signature: Gui Hughes. Mehreen Phone #: Date/Time: 10/27/2021 00:42 This is a permanent part of the Medical Record Q55 2020 [email or web address] Reviewed: 07/2020 Q55 2020 [email or web address] Reviewed: 07/2020 Electronically signed by Huy, [facility] Conversion Seismic Prospecting Observer Helper Cerner at 08/17/2022 6:04 PM CDT documented in this encounter Plan of Treatment Not on file documented as of this encounter Visit Diagnoses Not on filedocumented in this encounter Care Teams Extrusion Former Relationship Specialty Start Date End Date Eladio Lomas MD [address] [facility] [address] [place] [address] Medical Oncologist Hematology and Oncology 07/08/22 Breanna Crow, PACecilia [address] [facility] [address] [place] [address] Physician Smelting Engineer Oncology 07/08/22 documented as of this encounter
--- OUTSIDE RECORDS SUMMARY | 2024-12-11 10:36 | XMS_ITS | Encounter Summary ---
Author Organization [employer] ([place], [place], [place], [place]) Address [address] [place] [address] Care Team Providers Care Clothing Patternmaker Name Role Phone Eladio Lomas MD Unavailable Breanna Crow PA-C Unavailable [phone] Encounter Details Date Type Department Care Team (Late st Contact Info) Description 10/19/2021 Transcribed Document [facility] [place] [address] [place] [address] ProviderJailyn MD [address] [place] [address] Social History Tobacco Use Types [...] Date Ata rded Speak language other than Lao at home Not on file 05/13/2023 Want [...] On: 10/19/2021 13:08 EDT by KEI JEAN-BAPTISTE Flexo Operator Primary Insurance Authorization Authorization and Policy Numbers : Insurance 1 Health Plan: [employer] PPO Policy Number: [id number] Authorization Number: Insurance Primary Name : [employer] PPO [id number] Authorization Status-Primary : Denied Reference Number-Primary : [id number] Authorized Service Begin Date-Primary : 10/15/2021 EDT [...] CHOICE PPO auth pending per Star note. (JUAINTA HUGO, RN-Utilization Review 10/15/2021 09:18) KEI JEAN-BAPTISTE, Flexo Operator - 10/19/2021 13:08 EDT documented in this encounter Plan of Treatment Not on file documented as of this encounter Visit Diagnoses Not on filedocumented in this encounter Care Teams Clothing Patternmaker Relationship Specialty Start Date End Date Eladio Lomas MD [address] [facility] [address] [place] [address] Medical Oncologist Hematology and Oncology 07/08/22 Breanna Crow PA-C [address] [facility] [address] [place] [address] Physician Route Sales Associate Oncology 07/08/22 documented as of this encounter
--- OUTSIDE RECORDS SUMMARY | 2024-12-11 10:36 | XMS_ITS | Encounter Summary ---
Author Organization [employer] ([place], [place], [place], [place]) Address [address] [place] [address] Care Team Providers Care Microfilming Document Preparer Name Role Phone Eladio Lomas MD Unavailable Breanna Crow PA-C Unavailable [phone] Encounter Details Date Type Department Care Team (Late st Contact Info) Description 10/14/2021 Transcribed Document [facility] [place] [address] [place] [address] ProviderJailyn MD [address] [place] [address] Social History Tobacco Use Types [...] Temperature : Warm Skin Description : Dry, Vineyard FLORA SOUZA RN - 10/15/2021 1:37 EDT ED General-Functional Assess Information Obtained From : Patient Communication Barrier : None Primary Language : Afghan Any Spiritual/Cultural Needs or Requests : No [...] FLORA SOUZA RN - 10/15/2021 1:37 EDT Dejuan Coma Dejuan Best Motor Response : Obey commands [place] Best Verbal Response : Oriented [place] Eye Opening Response : Spontaneous Dejuan Coma Score : 15 FLORA SOUZA RN - 10/15/2021 1:37 EDT documented in this encounter Plan of Treatment Not on file documented as of this encounter Visit Diagnoses Not on filedocumented in this encounter Care Teams Microfilming Document Preparer Relationship Specialty Start Date End Date Eladio Lomas MD [address] [facility] [address] [place] [address] Medical Oncologist Hematology and Oncology 07/08/22 Breanna Crow PA-C [address] [facility] [address] [place] [address] Physician Cashier And Waiter/Waitress Oncology 07/08/22 documented as of this encounter
--- OUTSIDE RECORDS SUMMARY | 2024-12-11 10:36 | XMS_ITS | Encounter Summary ---
Author Organization [employer] ([place], [place], [place], [place]) Address [address] [place] [address] Care Team Providers Care Death Clearance Coordinator Name Role Phone Eladio Lomas MD Unavailable Breanna Crow PA-C Unavailable [phone] Encounter Details Date Type Department Care Team (Late st Contact Info) Description 01/01/[address] [facility] [place] [address] [place] [address] ProviderJailyn MD [address] [place], [...] Historical Provider, - 01/01/2022 12:58 [place] [address] SARAH HU :1950 Visit Time:01/01/2022 What to [...] for follow-up date and appointment time Activity: Laurel dressing. Do not remove. May shower with [...] When 01/14/2022 11:00 AM EDT Where: [address] [place] [address] [address] [place] [address]- Medications What How Much When Instructions Next Dose acetaminophen-oxyCODONE (Percocet 7.5/ 325 oral tablet) 1 Tablet(s) Oral Three Times A Day as needed for for pain Pickup at [facility] acetaminophen (Tylenol 325 mg oral tablet) 2 Tablet(s) Oral Every 4 Hours as needed for Pain (Mild 1-3) ergocalciferol (ergocalciferol 50 mcg (2000 intl units) oral capsule) 1 Capsule(s) Oral Every Day Duration: 14 Day(s) multivitamin (Multiple Vitamins oral tablet) 1 Tablet(s) Oral Every Day valACYclovir (Valtrex 1 g oral tablet) 1 Tablet(s) Oral Every Day Pharmacy Information [facility]: [address] [place] [address] [phone] Take your medications faithfully. Do NOT skip [...] these instructions at home: Medicines ??? Take dilh-yqc-cwchdsy and prescription medicines as told by your [...] keep your urine pale yellow. ? Take hnoo-nzt-orkewoy or prescription medicines. ? Eat foods that [...] and water are not available, use hand tool and die machinist. ? Change your dressing as told by [...] safe to drive. General instructions ??? Take axea-gdw-gwqzhgv and prescription medicines only as told by [...] provider. Document Revised: 08/06/2020 Document Reviewed: 08/06/2020 [employer] Patient Education ?? 2021 [employer] Laminectomy, Care After This sheet gives [...] these instructions at home: Medicines ??? Take bsrm-csr-ybrocym and prescription medicines only as told by [...] keep your urine pale yellow. ? Take gmkc-axk-izprajk or prescription medicines. ? Eat foods that [...] and water are not available, use hand tool and die machinist. ? Change your dressing as told by [...] provider. Document Revised: 11/12/2019 Document Reviewed: 11/12/2019 [employer] Patient Education ?? 2021 [employer]. Emergency Awareness and Preventative Care STROKE is [...] Assistance with quitting is available by contacting 3-066-URXK-NOW. This is a free resource providing counseling, [...] was given the opportunity to ask questions. Patient/Inventory Clerk Name: Patient/Inventory Clerk Signature: Relationship to Patient: Clinician/Hospital Inventory Clerk Signature: Date: documented in this encounter Plan of Treatment Not on file documented as of this encounter Visit Diagnoses Not on filedocumented in this encounter Care Teams Death Clearance Coordinator Relationship Specialty Start Date End Date Eladio Lomas MD [address] [facility] [address] [place], [place] [id number] Medical Oncologist Hematology and Oncology 07/08/22 Breanna Crow PARebelC [address] [facility] [address] [place] [address] Physician Medical Technologist Clinical Oncology 07/08/22 documented as of this encounter
--- OUTSIDE RECORDS SUMMARY | 2024-12-11 10:36 | XMS_ITS | Encounter Summary ---
Author Organization [employer] ([place], [place], [place], [place]) Address [address] [place] [address] Care Team Providers Care Shirt Folding Machine Operator Name Role Phone Eladio Lomas MD Unavailable Breanna Crow PA-C Unavailable [phone] Encounter Details Date Type Department Care Team (Late st Contact Info) Description 10/16/2021 Transcribed Document [facility] [place] Medicine [address] [place] [address] ProviderJailyn MD [address] [place] [address] Social History Tobacco Use Types [...] At risk for sleep apnea / IMO [id number] / Confirmed, Active Problems (2) At risk [...] (CINDI 16 17:56) Electronically signed by [facility], [facility] Conversion Rn Surgical Cerner at 08/17/2022 6:04 PM CDT documented in this encounter Plan of Treatment Not on file documented as of this encounter Visit Diagnoses Not on filedocumented in this encounter Care Teams Shirt Folding Machine Operator Relationship Specialty Start Date End Date Eladio Lomas MD [address] [facility] [address] [address] Medical Oncologist Hematology and Oncology 07/08/22 Breanna Crow PA-C [address] [facility] [address] [place] [address] Physician Electricity Trading Analyst Oncology 07/08/22 documented as of this encounter
--- OUTSIDE RECORDS SUMMARY | 2024-12-11 10:36 | XMS_ITS | Encounter Summary ---
Author Organization [employer] ([place], [place], [place], [place]) Address [address] [place] [address] Care Team Providers Care 911 Dispatcher Name Role Phone Eladio Lomas MD Unavailable Breanna Crow PA-C Unavailable [phone] Encounter Details Date Type Department Care Team (Late st Contact Info) Description 10/18/2021 Transcribed Document [facility] [place] [address] [place] [address] ProviderJailyn MD [address] [place] [address] Social History Tobacco Use Types [...] Historical Provider, - 10/18/2021 2:00 AM CDT Cloth Cutter Details Entered On: 10/18/2021 2:19 EDT Performed [...] - 10/18/2021 2:19 EDT Electronically signed by [facility], [facility] Conversion Plunger Shovel Operator Cerner at 08/17/2022 6:13 PM CDT documented in this encounter Plan of Treatment Not on file documented as of this encounter Visit Diagnoses Not on filedocumented in this encounter Care Teams 911 Dispatcher Relationship Specialty Start Date End Date Eladio Lomas MD [address] [place] [address] Medical Oncologist Hematology and Oncology 07/08/22 Breanna Crow, PA-C [address] [facility] [address] [place] [address] Physician Board Certified Music Therapist Oncology 07/08/22 documented as of this encounter
--- OUTSIDE RECORDS SUMMARY | 2024-12-11 10:36 | XMS_ITS | Encounter Summary ---
Author Organization [employer] ([place], [place], [place], [place]) Address [address] [place] [address] Care Team Providers Care Plastic Frame Inserter Name Role Phone Eladio Lomas MD Unavailable Breanna Crow PA-C Unavailable [phone] Encounter Details Date Type Department Care Team (Late st Contact Info) Description 10/18/2021 Transcribed Document [facility] [place] [address] [place] [address] ProviderJailyn MD [address] [place] [address] Social History Tobacco Use Types [...] Historical Provider, - 10/18/2021 12:28 [place] [address] CORBIN HU :1950 Visit Time:10/15/2021 Your Visit [...] TRENA PANIAGUA When Within 2 weeks Where: [facility] [address] [address] Business (1) Medications What How Much When [...] 10 mg daily in total Pickup at [facility] #94976 This evening predniSONE (predniSONE 10 mg oral tablet) See instructions Taper course of prednisone as following: First day 6 tabs, second day 5 tabs, third day 4 tabs, fourth day 3 tabs, fifth day 2 tabs, sixth day 1 tab, seventh half tab and eighth half tab Pickup at [facility] #39062 This afternoon valACYclovir (Valtrex 500 mg oral [...] instructions 1 Oral Daily Tomorrow Pharmacy Information [id number]: [address] [place] [phone] Take your medications faithfully. Do NOT skip [...] intense exercise for several days. ??? Take ssxp-rzj-mazxume and prescription medicines only as told by [...] not known. ??? Stay hydrated, and take cnbm-jkt-aarpzcd and prescription medicines only as told by your health care provider. This information is not intended to replace advice given to you by your health care provider. Make sure you discuss any questions you have with your health care provider. Document Revised: 09/03/2020 Document Reviewed: 09/03/2020 [employer] Patient Education ?? 2020 [employer]. Emergency Awareness and Preventative Care STROKE is [...] Assistance with quitting is available by contacting 2-150-KGSINOW. This is a free resource providing counseling, [...] range between ( 1.0 and 7.0 ) [place] #: 2.80 K/uL -- Normal range between ( 0.24 and 0.82 ) [place]os #: 0.00 K/uL -- Normal range between ( 0.04 and 0.54 ) [place] %: 17.6 % -- Normal range between [...] #: 4 K/uL ANC #: 5 K/uL [place] Percent Man: 19 % -- Normal range [...] was given the opportunity to ask questions. Patient/Packaging Coordinator Name: Patient/Packaging Coordinator Signature: Relationship to Patient: Clinician/Hospital Packaging Coordinator Signature: Date: documented in this encounter Plan of Treatment Not on file documented as of this encounter Visit Diagnoses Not on filedocumented in this encounter Care Teams Plastic Frame Inserter Relationship Specialty Start Date End Date Eladio Lomas MD [address] [facility] [address] [place] [address] Medical Oncologist Hematology and Oncology 07/08/22 Breanna Crow, PA-C [address] [address] Physician Superintendent Transportation Oncology 07/08/22 documented as of this encounter
--- OUTSIDE RECORDS SUMMARY | 2024-12-11 10:36 | XMS_ITS | Encounter Summary ---
Author Organization [employer] ([place], [place], [place], [place]) Address [address] [place] [address] Care Team Providers Care Firewall Security Engineer Name Role Phone Eladio Lomas MD Unavailable Breanna Crow PA-C Unavailable [phone] Encounter Details Date Type Department Care Team (Late st Contact Info) Description 10/16/2021 Transcribed Document [facility] [place] [address] [place] [address] ProviderJailyn MD [address] [place] [address] Social History Tobacco Use Types [...] - 10/16/2021 14:01 EDT Electronically signed by [facility], [facility] Conversion Speedboat Driver Cerner at 08/17/2022 5:59 PM CDT documented in this encounter Plan of Treatment Not on file documented as of this encounter Visit Diagnoses Not on filedocumented in this encounter Care Teams Firewall Security Engineer Relationship Specialty Start Date End Date Eladio Lomas MD [address] [facility] [address] [place] [address] Medical Oncologist Hematology and Oncology 07/08/22 Breanna Crow, PACecilia [address] [facility] [address] [place] [address] Physician Pollution Control Chemist Oncology 07/08/22 documented as of this encounter
--- OUTSIDE RECORDS SUMMARY | 2024-12-11 10:36 | XMS_ITS | Encounter Summary ---
Author Organization [employer] ([place], [place], [place], [place]) Address [address] [place] [address] Care Team Providers Care Glassware Verifier Name Role Phone Eladio Lomas MD Unavailable Breanna Crow PA-C Unavailable [phone] Encounter Details Date Type Department Care Team (Late st Contact Info) Description 12/29/2021 Transcribed Document [facility] [place] [address] [place] [address] ProviderJailyn MD [address] [place] [address] Social History Tobacco Use Types [...] Date Ata rded Speak language other than Maltese at home Not on file 05/13/2023 Want [...] Source : Stated Height Entry Format : [place] Height, Feet : 5 ft(Converted to: 152 cm, 60 Inch) Height, Inches : 6 Inch(Converted to: 0 ft 6 Inch, 15.24 cm) Clinical Height : 167.64 cm Weight Source : Standing scale Weight Entry Format : [place] Clinical Dosing Weight : 72.73 kg Weight, Pounds : 160 lb Body Surface Area (BSA) : 1.82 m2 Body Mass Index : 25.9 kg/m2 (HI) Eek Body Weight : 63 kg JOSELINE MIRAMONTES [...] JOSELINE MIRAMONTES RN - 12/29/2021 10:51 EDT Burnett Suicide Severity Rating Scale (C-SSRS) CSSRS Past [...] Currently in Unsafe Situation : No JOSELINE MIRAMNOTES RN - 12/29/2021 10:51 EDT Teaching/Learning Assessment [...] #2 Relationship : - Primary Language : Maltese Communication Barrier : None Product/Device Technologist Needed : No JOSELINE MIRAMONTES RN - [...] on filedocumented in this encounter Care Teams Glassware Verifier Relationship Specialty Start Date End Date Eladio Lomas MD [address] [facility] [address] [place] [address] Medical Oncologist Hematology and Oncology 07/08/22 Breanna Crow PA-C [address] [facility] [address] [place] [address] Physician Hull Inspector Oncology 07/08/22 documented as of this encounter
--- OUTSIDE RECORDS SUMMARY | 2024-12-11 10:36 | XMS_ITS | Encounter Summary ---
Author Organization [employer] ([place], [place], [place], [place]) Address [address] [place] [address] Care Team Providers Care Helpdesk Manager Name Role Phone Eladio Lomas MD Unavailable Breanna Crow PA-C Unavailable [phone] Encounter Details Date Type Department Care Team (Late st Contact Info) Description 10/16/2021 Transcribed Document [facility] [place] [address] [place] [address] ProviderJailyn MD [address] [place] [address] Social History Tobacco Use [...] - 10/16/2021 14:27 EDT Electronically signed by [facility], [facility] Conversion Teacher Nursery School Cerner at 08/17/2022 6:05 PM CDT documented in this encounter Plan of Treatment Not on file documented as of this encounter Visit Diagnoses Not on filedocumented in this encounter Care Teams Helpdesk Manager Relationship Specialty Start Date End Date Eladio Lomas MD [address] [facility] [address] [place] [address] Medical Oncologist Hematology and Oncology 07/08/22 Breanna Crow, PACecilia [address] [facility] [address] [place] [address] Physician Traveling Repair Accountant Oncology 07/08/22 documented as of this encounter
--- OUTSIDE RECORDS SUMMARY | 2024-12-11 10:36 | XMS_ITS | Encounter Summary ---
Author Organization [employer] ([place], [place], [place], [place]) Address [address] [place] [address] Care Team Providers Care Bmx Rider Name Role Phone Eladio Lomas MD Unavailable Breanna Crow PA-C Unavailable [phone] Encounter Details Date Type Department Care Team (Late st Contact Info) Description 10/16/2021 Transcribed Document [facility] [place] [address] [place] [address] ProviderJailyn MD [address] [place] [address] Social History Tobacco Use [...] Historical Provider, - 10/16/2021 2:00 AM CDT Shoe Fitter Details Entered On: 10/16/2021 4:15 EDT Performed On: 10/16/2021 2:00 EDT by Tessy Gramajo RN-PATIENT CARE BEDSIDE NON-EXEMPT Order Details Order Detail : N/A Patient Needs Meds Crushed/Liquid : No Tessy Gramajo RN-PATIENT CARE BEDSIDE NON-EXEMPT - 10/16/2021 4:15 EDT Electronically signed by Huy [facility] Conversion Interpretive Program Coordinator Cerner at 08/17/2022 6:18 PM CDT documented in this encounter Plan of Treatment Not on file documented as of this encounter Visit Diagnoses Not on filedocumented in this encounter Care Teams Bmx Rider Relationship Specialty Start Date End Date Eladio Lomas MD [address] [facility] [address], [place] [address] Medical Oncologist Hematology and Oncology 07/08/22 Breanna Crow, PACecilia [address] [facility] [address] [place] [address] Physician Production Ski Repairer Oncology 07/08/22 documented as of this encounter
--- OUTSIDE RECORDS SUMMARY | 2024-12-11 10:36 | XMS_ITS | Encounter Summary ---
Author Organization [employer] ([place], [place], [place], [place]) Address [address] [place] [address] Care Team Providers Care Reroller Hand Name Role Phone Eladio Lomas MD Unavailable Breanna Crow PA-C Unavailable [phone] Encounter Details Date Type Department Care Team (Late st Contact Info) Description 10/16/2021 Transcribed Document [facility] [place] Medicine [address] [place] [address] ProviderJailyn MD [address] [place] [address] Social History Tobacco Use Types [...] 10/16/2021 18:44 EDT Electronically signed by Huy [facility] Conversion Delinquency Prevention Social Worker Cerner at 08/17/2022 6:20 PM CDT documented in this encounter Plan of Treatment Not on file documented as of this encounter Visit Diagnoses Not on filedocumented in this encounter Care Teams Reroller Hand Relationship Specialty Start Date End Date Eladio Lomas MD [address] [facility] [address] [address] Medical Oncologist Hematology and Oncology 07/08/22 Breanna Crow, PA-C [address] [facility] [address] [place] [address] Physician Valving Machine Operator Oncology 07/08/22 documented as of this encounter
--- OUTSIDE RECORDS SUMMARY | 2024-12-11 10:36 | XMS_ITS | Encounter Summary ---
Author Organization [employer] ([place], [place], [place], [place]) Address [address] [place] [address] Care Team Providers Care Rehabilitation Counsellor Name Role Phone Eladio Lomas MD Unavailable Breanna Crow PA-C Unavailable [phone] Encounter Details Date Type Department Care Team (Late st Contact Info) Description 10/18/2021 Transcribed Document [facility] [place] [address] [place] [address] ProviderJailyn MD [address] [place] [address] Social History Tobacco Use Types [...] Date Ata rded Speak language other than Cuban at home Not on file 05/13/2023 Want [...] 10/17/2021 11:52 EDT Electronically signed by Huy [facility] Conversion Database Development Project Manager Cerner at 08/17/2022 5:59 PM CDT documented in this encounter Plan of Treatment Not on file documented as of this encounter Visit Diagnoses Not on filedocumented in this encounter Care Teams Rehabilitation Counsellor Relationship Specialty Start Date End Date Eladio Lomas MD [address] [facility] [address] [address] Medical Oncologist Hematology and Oncology 07/08/22 Breanna Crow PA-C [address] [facility] [address] [place] [address] Physician Dopster Oncology 07/08/22 documented as of this encounter
--- OUTSIDE RECORDS SUMMARY | 2024-12-11 10:36 | XMS_ITS | Encounter Summary ---
Author Organization [employer] ([place], [place], [place], [place]) Address [address] [place] [address] Care Team Providers Care Construction Coordinator Name Role Phone Eladio Lomas MD Unavailable Breanna Crow PA-C Unavailable [phone] Encounter Details Date Type Department Care Team (Late st Contact Info) Description 10/18/2021 Transcribed Document [facility] [place] Family Medicine [address] [place] [address] ProviderJailyn MD [address] [place] [address] Social History Tobacco Use Types [...] EDT Electronically signed by H[facility] Conversion Truant Officer Cerner at 08/17/2022 6:01 PM CDT documented in this encounter Plan of Treatment Not on file documented as of this encounter Visit Diagnoses Not on filedocumented in this encounter Care Teams Construction Coordinator Relationship Specialty Start Date End Date Eladio Lomas MD [address] [address] Medical Oncologist Hematology and Oncology 07/08/22 Breanna Crow, PA-C [address] [facility] [address] [place] [address] Physician Bank Vault Attendant Oncology 07/08/22 documented as of this encounter
--- OUTSIDE RECORDS SUMMARY | 2024-12-11 10:36 | XMS_ITS | Encounter Summary ---
Author Organization [employer] ([place], [place], [place], [place]) Address [address] [place] [address] Care Team Providers Care Electronic Prepress Technician Name Role Phone Eladio Lomas MD Unavailable Breanna Crow PA-C Unavailable [phone] Encounter Details Date Type Department Care Team (Late st Contact Info) Description 10/19/2021 Transcribed Document [facility] [place] [address] [place] [address] ProviderJailyn MD [address] [place] [address] Social History Tobacco Use Types [...] any clubs o r organizations such as religious groups, unions, fraternal or athletic groups, or [...] Date Ata rded Speak language other than Yemeni at home Not on file 05/13/2023 Want [...] Health Plan: [employer] PPO Policy Number: [id number] Authorization Number: Insurance Primary Name : [employer] PPO [id number] Authorization Status-Primary : Awaiting callback Reference Number-Primary : [id number] Authorized Service Begin Date-Primary : 10/15/2021 EDT Authorization Comments-Primary : [employer] PPO auth still pending per availity Historical Authorization Comments-Primary : Comment 1: Clinicals faxed via [employer] (Natalie Lauren, Rn-Utilization Review 10/15/2021 09:30) Comment 2: [employer] PPO auth pending per [facility] note. (JUANITA HUGO, RN-Utilization Review 10/15/2021 09:18) JUANITA HUGO RN-Utilization Review - 10/19/2021 11:01 EDT documented in this encounter Plan of Treatment Not on file documented as of this encounter Visit Diagnoses Not on filedocumented in this encounter Care Teams Electronic Prepress Technician Relationship Specialty Start Date End Date Eladio Lomas MD 12[address] [facility] [address] [place] [address] Medical Oncologist Hematology and Oncology 07/08/22 Breanna Crow PA-C [address] [facility] [address] [place] [address] Physician Photographic Editor Oncology 07/08/22 documented as of this encounter
--- OUTSIDE RECORDS SUMMARY | 2024-12-11 10:36 | XMS_ITS | Encounter Summary ---
Author Organization [employer] ([place], [place], [place], [place]) Address [address] [place] [address] Care Team Providers Care Resident In Diagnostic Radiology Name Role Phone Eladio Lomas MD Unavailable Breanna Crow PA-C Unavailable [phone] Encounter Details Date Type Department Care Team (Late st Contact Info) Description 10/16/2021 Transcribed Document [facility] [place] [address] [place] [address] ProviderJailyn MD [address] [place] [address] Social History Tobacco Use Types [...] Sent to Post Acute Providers : No [facility] Quality Web Info Shared w Pt/Fam : [...] on filedocumented in this encounter Care Teams Resident In Diagnostic Radiology Relationship Specialty Start Date End Date Eladio Lomas MD [address] [facility] [address] [place] [address] Medical Oncologist Hematology and Oncology 07/08/22 Breanna Crow PACecilia [address] [place], [place] [id number] Physician Packager Or Packer And Weigher Oncology 07/08/22 documented as of this encounter
--- OUTSIDE RECORDS SUMMARY | 2024-12-11 10:36 | XMS_ITS | Encounter Summary ---
Author Organization [employer] ([place], [place], [place], [place]) Address [address] [place] [address] Care Team Providers Care Apartment Maintenance Name Role Phone Eladio Lomas MD Unavailable Breanna Crow PA-C Unavailable [phone] Encounter Details Date Type Department Care Team (Late st Contact Info) Description 10/18/2021 Transcribed Document [facility] [place] [address] [place] [address] ProviderJailyn MD [address] [place] [address] Social History Tobacco Use Types [...] intense exercise for several days. ??? Take qxdo-hdp-zjxjqbb and prescription medicines only as told by [...] not known. ??? Stay hydrated, and take tbyo-pln-fqwokyj and prescription medicines only as told by your health care provider. This information is not intended to replace advice given to you by your health care provider. Make sure you discuss any questions you have with your health care provider. Document Revised: 09/03/2020 Document Reviewed: 09/03/2020 [employer] Patient Education ? 2020 [employer]. documented in this encounter Plan of Treatment Not on file documented as of this encounter Visit Diagnoses Not on filedocumented in this encounter Care Teams Apartment Maintenance Relationship Specialty Start Date End Date Eladio Lomas MD 1210 [facility] [address] [place] [address] Medical Oncologist Hematology and Oncology 07/08/22 Breanna Crow PA-C [address] [facility] [address] [place] [address] Physician Permaculture Designer Oncology 07/08/22 documented as of this encounter
--- OUTSIDE RECORDS SUMMARY | 2024-12-11 10:36 | XMS_ITS | Encounter Summary ---
Author Organization [employer] ([place], [place], [place], [place]) Address [address] [place] [address] Care Team Providers Care Software Applications Architect Name Role Phone Eladio Lomas MD Unavailable Breanna Crow PA-C Unavailable [phone] Encounter Details Date Type Department Care Team (Late st Contact Info) Description 10/16/2021 Transcribed Document [facility] [place] Family Medicine [address] [place] [address] ProviderJailyn MD [address] [place] [address] Social History Tobacco Use Types [...] lower motor neuron process.. Integumentary: Warm, Dry, [place]. Neurologic: Alert, Oriented, Cranial Nerves II-XII are [...] the setting of recent varicella. Disposition: Pending data communications software consultant recommendations and plan. May need rehab [...] Lymph # 3.37 K/uL 10/16/2021 04:00 EDT [place] % 19.5 % (High) 10/16/2021 04:00 EDT [place] # 2.25 K/uL (High) 10/16/2021 04:00 EDT [...] ng/mL 10/16/2021 04:00 EDT Electronically signed by [facility] Conversion Dip Lube Operator Cerner at 08/17/2022 6:11 PM CDT documented in this encounter Plan of Treatment Not on file documented as of this encounter Visit Diagnoses Not on filedocumented in this encounter Care Teams Software Applications Architect Relationship Specialty Start Date End Date Eladio Lomas MD 1210 [facility] [address] [place] [address] Medical Oncologist Hematology and Oncology 07/08/22 Breanna Crow, PA-C [address] [place] [address] Physician Printed Circuit Boards Router Oncology 07/08/22 documented as of this encounter
--- OUTSIDE RECORDS SUMMARY | 2024-12-11 10:36 | XMS_ITS | Encounter Summary ---
Author Organization [employer] ([place], [place], [place], [place]) Address [address] [place] [address] Care Team Providers Care Product Evangelist Name Role Phone Eladio Lomas MD Unavailable Breanna Crow PA-C Unavailable [phone] Encounter Details Date Type Department Care Team (Late st Contact Info) Description 12/29/2021 Transcribed Document [facility] [place] Family Medicine [address] [place] [address] ProviderJailyn MD [address] [place] [address] Social History Tobacco Use Types [...] MVP - pt has not seen a gas appliance mechanic 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 Pt denies [...] # 7.60 K/uL (High) 12/29/2021 10:31 EDT [place] % 14.8 % (High) 12/29/2021 10:31 EDT [place] # 2.11 K/uL (High) 12/29/2021 10:31 EDT [...] pending Cotinine - pending Electronically signed by [facility] Conversion Health Navigator Cerner at 08/17/2022 6:07 PM CDT documented in this encounter Plan of Treatment Not on file documented as of this encounter Visit Diagnoses Not on filedocumented in this encounter Care Teams Product Evangelist Relationship Specialty Start Date End Date Eladio Lomas MD 1210 [facility] [address] [place] [address] Medical Oncologist Hematology and Oncology 07/08/22 Breanna Crow PA-C [address] [place] [address] Physician Twx Operator Oncology 07/08/22 documented as of this encounter
--- OUTSIDE RECORDS SUMMARY | 2024-12-11 10:36 | XMS_ITS | Encounter Summary ---
Author Organization [employer] ([place], [place], [place], [place]) Address [address] [place] [address] Care Team Providers Care Social Media Marketing Manager Name Role Phone Eladio Lomas MD Unavailable Breanna Crow PA-C Unavailable [phone] Encounter Details Date Type Department Care Team (Late st Contact Info) Description 10/18/2021 Transcribed Document [facility] [place] Family Medicine [address] [place] [address] ProviderJailyn MD [address] [place] [address] Social History Tobacco Use Types [...] : Yes Discharge To Care Management : Home/Residential/Correction or Self Care -01 ROMERO MCMANUS RN [...] on filedocumented in this encounter Care Teams Social Media Marketing Manager Relationship Specialty Start Date End Date Eladio Lomas MD 1210 [facility] [address] [place] [address] Medical Oncologist Hematology and Oncology 07/08/22 Breanna Crow PACecilia [address] [facility] [address] [place] [address] Physician Oracle Solutions Architect Oncology 07/08/22 documented as of this encounter
--- OUTSIDE RECORDS SUMMARY | 2024-12-11 10:36 | XMS_ITS | Encounter Summary ---
Author Organization [employer] ([place], [place], [place], [place]) Address [address] [place] [address] Care Team Providers Care Workers Compensation Defense Attorney Name Role Phone Eladio Lomas MD Unavailable Breanna Crow PA-C Unavailable [phone] Encounter Details Date Type Department Care Team (Late st Contact Info) Description 01/01/2022 Transcribed Document [facility] [place] [address] [place] [address] ProviderJailyn MD [address] [place] [address] Social History Tobacco Use Types [...] Historical Provider, - 01/01/2022 1:12 [place] [address] SARAH HU :1950 Visit Time:01/01/2022 What to [...] for follow-up date and appointment time Activity: Girard dressing. Do not remove. May shower with [...] MD-ORT When 01/14/2022 11:00 AM EDT Where: [address] [place] [address] [address] [place] [address]- Medications What How Much When Instructions Next Dose acetaminophen-oxyCODONE (Percocet 7.5/ 325 oral tablet) 1 Tablet(s) Oral Three Times A Day as needed for for pain Pickup at [facility] acetaminophen (Tylenol 325 mg oral tablet) 2 Tablet(s) Oral Every 4 Hours as needed for Pain (Mild 1-3) ergocalciferol (ergocalciferol 50 mcg (2000 intl units) oral capsule) 1 Capsule(s) Oral Every Day Duration: 14 Day(s) multivitamin (Multiple Vitamins oral tablet) 1 Tablet(s) Oral Every Day valACYclovir (Valtrex 1 g oral tablet) 1 Tablet(s) Oral Every Day Pharmacy Information [facility]: [address] [place] [address] [phone] Take your medications faithfully. Do NOT skip [...] these instructions at home: Medicines ??? Take wdtu-ymw-ekpsdai and prescription medicines as told by your [...] keep your urine pale yellow. ? Take fyss-org-xlrnovf or prescription medicines. ? Eat foods that [...] and water are not available, use hand horticulture instructor. ? Change your dressing as told by [...] safe to drive. General instructions ??? Take ngfx-xdz-izpehsq and prescription medicines only as told by [...] provider. Document Revised: 08/06/2020 Document Reviewed: 08/06/2020 [employer] Patient Education ?? 2021 [employer] Laminectomy, Care After This sheet gives [...] these instructions at home: Medicines ??? Take mmic-cij-ykucjmq and prescription medicines only as told by [...] keep your urine pale yellow. ? Take ovkj-yaw-nwcjcdi or prescription medicines. ? Eat foods that [...] and water are not available, use hand horticulture instructor. ? Change your dressing as told by [...] provider. Document Revised: 11/12/2019 Document Reviewed: 11/12/2019 [employer] Patient Education ?? 2021 [employer]. Emergency Awareness and Preventative Care STROKE is [...] Assistance with quitting is available by contacting 7-267-CTTX-NOW. This is a free resource providing counseling, [...] given the opportunity to ask questions. Patient/Surgical Corsetier Name: Patient/Surgical Corsetier Signature: Relationship to Patient: Clinician/Hospital Surgical Corsetier Signature: Date: Electronically signed by [facility] Conversion Human Resources Communications Manager Cerner at 08/17/2022 6:10 PM CDT documented in this encounter Plan of Treatment Not on file documented as of this encounter Visit Diagnoses Not on filedocumented in this encounter Care Teams Workers Compensation Defense Attorney Relationship Specialty Start Date End Date Eladio Lomas MD 1210 [facility] [address] [place], [place] [id number] Medical Oncologist Hematology and Oncology 07/08/22 Breanna Crow PARebelC [address] [facility] [address] [place] [address] Physician Survey Director Oncology 07/08/22 documented as of this encounter
--- NOTE | 2024-12-11 10:48 | CT_ITS ---
FINAL REPORT TECHNIQUE: Thin section axial images were obtained through the lumbar spine without contrast. Sagittal and coronal reconstruction images were obtained from the axial data. Exam was performed using dose reduction techniques. This study was performed with techniques to keep radiation doses as low as reasonably achievable (ALARA). Individualized dose reduction techniques using automated exposure control or adjustment of mA and/or kV according to the patient's size were employed. CLINICAL HISTORY: AMS, fever, CLL/chemo, abd pain, LE weakness COMPARISON: None FINDINGS: There is mild degradation of overall image quality secondary to motion artifact, particularly in the region of the sacrum. There is no acute fracture or acute malalignment of the lumbar spine. Vertebral body height is preserved. There is mild multilevel degenerative disease with disc space narrowing and osteophyte formation. There is no significant central stenosis. Paraspinal soft tissues are within normal limits. There is no paraspinal mass or fluid collection. IMPRESSION: No acute abnormality of the lumbar spine. Mild multilevel degenerative disease. Reviewed, Interpreted and Dictated by Amelia Crow MD Transcribed by Angelina Fields Authenticated and [facility]
--- NOTE | 2024-12-11 10:48 | CT_ITS ---
FINAL REPORT TECHNIQUE: Thin section axial images were obtained through the thoracic spine without contrast. Sagittal and coronal images were obtained from the axial data. This study was performed with techniques to keep radiation doses as low as reasonably achievable (ALARA). Individualized dose reduction techniques using automated exposure control or adjustment of mA and/or kV according to the patient's size were employed. CLINICAL HISTORY: AMS, fever, CLL/chemo, abd pain, LE weakness COMPARISON: None FINDINGS: There is mild degradation of overall image quality secondary to motion artifact, predominantly in the lower thoracic spine. There is no acute fracture of the thoracic spine. There is no malalignment. Multilevel degenerative disease is noted with osteophyte formation and multilevel disc space narrowing. No acute paraspinal abnormality is identified. IMPRESSION: No acute osseous abnormality of the thoracic spine. Degenerative disc disease. Reviewed, Interpreted and Dictated by Amelia Crow MD Transcribed by Angelina Fields Authenticated and [facility]
--- NOTE | 2024-12-11 10:48 | CT_ITS ---
FINAL REPORT TECHNIQUE: Thin section axial images were obtained from skull base to vertex without contrast. Coronal reconstruction images were obtained from the axial data. Exam was performed using dose reduction techniques such as automated exposure control, adjustment of the mA and kV according to patient size, and use of iterative reconstruction technique. CLINICAL HISTORY: AMS, fever, CLL/chemo, abd pain, LE weakness FINDINGS: There is no mass effect or midline shift. No hydrocephalus is seen. There are symmetric foci of increased density in the parietal lobes bilaterally as seen on axial images 42-44 and coronal image 50. Small amount of subarachnoid hemorrhage cannot be excluded. There is mild periventricular hypodensity, favor chronic. Posterior fossa is without acute abnormality. Basilar cisterns are preserved. There is mucoperiosteal thickening of the bilateral maxillary sinuses. Opacification is seen of the right frontal sinus and ethmoid air cells. No acute osseous abnormality is seen. IMPRESSION: 1. Increased density of the bilateral parietal lobes. Small amount of subarachnoid hemorrhage not excluded. Consider short-term follow-up or MRI for further evaluation. 2. Paranasal sinus disease as above. Reviewed, Interpreted and Dictated by Amelia Crow MD Transcribed by Odalys Patino Authenticated and [facility]
--- NOTE | 2024-12-11 10:48 | CT_ITS ---
FINAL REPORT TECHNIQUE: Thin section axial images were obtained from the lung apices through the upper abdomen without contrast. This study was performed with techniques to keep radiation doses as low as reasonably achievable (ALARA). Individualized dose reduction techniques using automated exposure control or adjustment of mA and/or kV according to the patient's size were employed. CLINICAL HISTORY: AMS, fever, CLL/chemo, abd pain, LE weakness COMPARISON: 07/19/2024 FINDINGS: There has been interval improvement in previously seen bilateral axillary lymph nodes. Mediastinal lymphadenopathy has also improved. For example, a right paratracheal lymph node measures 9 mm, previously measured 25 mm. More inferior right paratracheal lymph node measures 15 mm, was 18 mm. AP window lymph nodes appear stable. Hilar lymphadenopathy is difficult to exclude given lack of contrast. There has been interval enlargement of the heart. Trace bilateral pleural effusions are present. No pericardial effusion seen. There is a right upper lobe nodule on series 3 image 14 measuring 6 mm which is unchanged. Several, small, groundglass nodules are seen in the inferior, posterior right upper lobe which are new. There is mild intralobular septal thickening at the lung bases which is also new. There is no acute osseous abnormality. IMPRESSION: 1. Stable to improved lymphadenopathy as above. 2. New cardiomegaly with interlobular septal thickening, favor mild CHF. 3. Several groundglass nodules in the right upper lobe, new from prior exam. Favor infectious/inflammatory. Reviewed, Interpreted and Dictated by Amelia Crow MD Transcribed by Odalys Patino Authenticated and . [facility]
--- NOTE | 2024-12-11 10:48 | CT_ITS ---
FINAL REPORT TECHNIQUE: Thin section axial images were obtained from the lung bases to the pubic symphysis without IV contrast. Coronal and sagittal reconstruction images were obtained from the axial data. Exam was performed using dose reduction technique. This study was performed with techniques to keep radiation doses as low as reasonably achievable (ALARA). Individualized dose reduction techniques using automated exposure control or adjustment of mA and/or kV according to the patient's size were employed. CLINICAL HISTORY: AMS, fever, CLL/chemo, abd pain, LE weakness COMPARISON: 12/07/2024 FINDINGS: No focal hepatic lesion is identified. Splenomegaly is once again noted, stable when compared with the prior exam. The patient has known lymphoma. There are stable bilateral adrenal nodules noted as well. The pancreas does not demonstrate any acute abnormality. There are no renal or ureteral stones. There is no hydronephrosis or perinephric stranding. The remaining unenhanced solid abdominal organs are unremarkable. There is no evidence of small bowel obstruction. The appendix is not visualized on the current exam. There is mild wall thickening of the cecum and ascending colon. The exam is overall limited secondary to lack of contrast. GI tract is otherwise without acute abnormality. Diverticulosis is present in the more distal portions of the colon. There is a large amount of stool and air present in the rectum. There are multiple enlarged retroperitoneal and mesenteric lymph nodes that are unchanged since the prior exam. No free fluid is identified. No acute osseous abnormality is identified. IMPRESSION: Mild wall thickening of the cecum and ascending colon, colitis is not excluded. Overall image quality slightly limited without contrast. Stable splenomegaly in a patient with known lymphoma. Reviewed, Interpreted and Dictated by Amelia Crow MD Transcribed by Angelina Fields Authenticated and [facility]
--- NOTE | 2024-12-11 10:54 | PC.NURSE ---
pt moved to a room with a door and placed in Neutropenic Precautions at this time
[2024-12-11 10:58] LABS: Hematocrit 24.5 % (42.0-52.0); Hemoglobin 7.7 g/dL (14.1-18.0); Immature Granulocytes % 0.9 %; Mean Corpuscular HGB Conc 31.4 g/dL (31.8-35.4); Mean Corpuscular Hemoglobin 31.3 pg (27.0-31.2); Mean Corpuscular Volume 99.6 fl (80-94); Nucleated Red Blood Cells % 0 %; Platelet Count 152 K/mm3 (142-424); Red Blood Count 2.46 M/mm3 (4.60-6.20); Red Cell Distribution Width-SD 54.4 fL; White Blood Count 16.1 K/mm3 (4.8-10.8)
[2024-12-11 10:59] LABS: Albumin Level 2.9 g/dl (3.5-5.0); Chloride 98 mmol/L (98-107); Potassium 3.9 mmoL/L (3.5-5.1); Sodium 128 mmol/L (136-145)
[2024-12-11 11:02] LABS: Alanine Aminotransferase 55 U/L (12-78); Albumin/Globulin Ratio 1.4 (1.1-1.8); Alkaline Phosphatase 112 U/L (38-126); Anion Gap 9.9 mEq/L (5-15); Aspartate Amino Transferase 52 U/L (17-59); Bilirubin,Total 1.0 mg/dl (0.2-1.3); Blood Urea Nitrogen 23 mg/dl (9-20); Carbon Dioxide 24 mmol/L (22.0-30.0); Creatinine Clearance Estimated 56 mL/min (50-200); Creatinine,Serum 0.90 mg/dl (0.66-1.25); Estimated Glomerular Filt Rate 82 ml/min (>60); GFR (African American) 99 ML/MIN (>60); Globulin 2.1 g/dL (1.3-3.2); Total Protein,Serum 5.0 g/dl (6.3-8.2)
--- NOTE | 2024-12-11 11:02 | ED_ITS ---
Discharge Plan Disposition Patient Disposition: Xfer Other Prescriptions Prescriptions: No Action fluticasone propionate [Flonase Allergy Relief] 50 mcg/actuation spray,suspension 1 spray intranasal BID Qty: 60 3RF Rx Instructions: administer into each nostril Calquence (acalabrutinib mal) 100 mg tablet PO zanubrutinib 80 mg capsule 80 mg PO DAILY Qty: 60 4RF Rx Instructions: take 2 tablets by mouth daily valacyclovir 1 gram tablet See Rx Instructions .ROUTE .COMPLEX Qty: 90 3RF Dose Instruction: TAKE 1 TABLET BY MOUTH DAILY Rx Instructions: TAKE 1 TABLET BY MOUTH DAILY Referrals Follow up/Referrals: Arsalan Isabel [Primary Care Provider, Medical] - See instructions Clinical Impressions Clinical Impression: 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 by RN): pt to the ED via EMS from home. Per the pts the pt has CLL and was recently on chemo until tuesday when he took his last dose because he wasnt tolerating it well. pt stated that the patient woke up tuesday morning talking out of his head and had a 103 fever. she was able to give him tylenol and he returned to baseline but had the same episode again this morning where she stated he became confused and febrile. pt is alert to self, name and birthday but confused on place and situation. pt has no unliateral deficits on assessment. History of Present Illness HPI narrative: Mr. Hu is a 74-year-old man followed chronically by Dr. Arroyo with a history of CLL/SLL. Had been treated in the past in 2018 with chemotherapy and most recently was restarted on acalabrutinib on October 29, 2024 due to progression of disease this was discontinued after 3 weeks due to some onset of dizziness which resolved quickly and then he was restarted back on November 22, 2024. Again he had some side effects a few days ago and discontinued this. Does have a history of neutropenic fever and pneumonia last time he was on chemo in 2018. Additionally over the last several days to weeks has had significant increase in lower extremity weakness there was some concern for [employer] involvement outpatient MRIs have been ordered prior to evaluation today. His reason for presenting to the emergency department today is because of altered mental status and fever. Fever began on Tuesday has been febrile up to 103 and he has been altered over the last 24 hours. No focal or localizing symptoms according to the family or the patient at the moment. History from the patient is limited secondary to his mental status at the moment. Related Data Home Medications ?Medication ?Instructions ?Recorded ?Confirmed acalabrutinib maleate 100 mg mg PO 11/22/24 12/07/24 tablet (Calquence (acalabrutinib maleate)) Previous Rx's ?Medication ?Instructions ?Recorded fluticasone propionate 50 1 spray intranasal BID #60 m L 05/29/24 mcg/actuation nasal spray,suspension (Flonase Allergy Relief) valacyclovir 1 gram tablet See Rx Instructions .Route 08/29/24 .COMPLEX #90 tabs zanubrutinib 80 mg capsule 80 mg PO DAILY #60 caps Allergies Allergy/AdvReac Type Severity Reaction Status Date / Time Iodinated Contrast Media Allergy Verified 12/07/24 11:19 [facility] Disclaimer: The information contained in this section may have been updated after the patient was seen, as this information can be updated by other users. Medical History Tinnitus of both ears Chronic sinusitis Hoarseness Skin cancer DVT (deep venous thrombosis) Shingles Social History Smoking Status: Never smoker alcohol intake: never current occupational status: retired Travel in the last 8 weeks?: None Have you lived/traveled outside [place] in past 30 days?: No Contact w/someone who lives/traveled outside US past 30 days?: No Exposure to someone with infectious disease in past 14 days?: No Do you have a fever (greater than 100.4 F or 38 C)?: No Have you tested positive for COVID-19?: No Exposed to someone with COVID-19 in past 14 days?: No Do you have a sore throat?: No Do you have a cough?: No Do you have any weakness?: No Do you have any diarrhea?: No Are you experiencing any unusual bleeding?: No Do you have any muscle aches/pain?: No Do you have any abdominal pain?: No Are you experiencing loss of taste or smell?: No Other Medical History Have you received the Pneumonia Vaccine: Yes ROS Obtained: Yes All systems reviewed & no additional complaints except as documented Physical Exam General General appearance: alert and in no apparent distress Respiratory Respiratory exam: Present normal lung sounds bilaterally; Absent respiratory distress Cardiovascular Cardiovascular exam: Present regular rate and normal rhythm Abdominal Exam Abdominal exam: Present soft; Absent distention or tenderness Extremities Exam Extremities exam: Present other (Patient has bilateral lower extremity weakness left greater than right left is 3 out of 5 strength proximally and distally right 4 out of 5) Neurological Exam Neurological exam: Present alert; Absent oriented X3 (Patient is only oriented to self otherwise is nonfocal on his exam apart from the lower extremity weakness that is described above.) Medical Decision Making Medical Records Screening: Per USPSTF and CDC recommendations, given the prevalence of disease in our region, it is our hospital?s policy to screen for HIV and viral Hepatitis for all patients aged 18 and over and those with ongoing risk factors. [place] Inquiry Pt receiving controlled substance: No Vital Signs: 12/11/24 10:26 12/11/24 11:30 12/11/24 12:01 Temperature 100.7 F H Temperature Source Oral Pulse Rate 94 H 93 H Pulse Rate [Left Radial] 96 H Respiratory Rate 16 Blood Pressure 112/51 L 114/47 L Blood Pressure [Right Arm] 118/58 L Blood Pressure Mean 59 53 Blood Pressure Mean [Right Arm] 78 Blood Pressure Source [Right Arm] Automatic Cuff Blood Pressure Position [Right Arm] Sitting 02 Sat by Pulse Oximetry 96 95 97 Oxygen Delivery Method Room Air 12/11/24 12:30 Temperature Temperature Source Pulse Rate 87 Pulse Rate [Left Radial] Respiratory Rate Blood Pressure 111/52 L Blood Pressure [Right Arm] Blood Pressure Mean 68 Blood Pressure Mean [Right Arm] Blood Pressure Source [Right Arm] Blood Pressure Position [Right Arm] 02 Sat by Pulse Oximetry 97 Oxygen Delivery Method Lab Data Lab results reviewed: Yes I reviewed the patient's lab results. Lab Results 12/11/24 10:25: WBC 16.1 H, RBC 2.46 L, Hgb 7.7 L, Hct 24.5 L, MCV 99.6 H, MCH 31.3 H, MCHC 31.4 L, RDW 14.9, Plt Count 152, MPV 9.8, Neut % (Auto) 14.6 L, L ymph % (Auto) 83.6 H, [place] % (Auto) 0.8 L, Eos % (Auto) 0.0 L, Baso % (Auto) 0.1, Neut # (Auto) 2.3, Lymph # (Auto) 13.5 H, [place] # (Auto) 0.1, Eos # (Auto) 0.0, Baso # (Auto) 0.0, Total Counted 100, Neutrophils % (Manual) 16 L, L ymphocytes % (Manual) 83 H, Monocytes % (Manual) 1 L, Platelet Estimate Normal, RBC Morphology Normal, PT 14.2 H, INR 1.30 H, APTT 33.3 H, Sodium 128 L, Potassium 3.9, Chloride 98, Carbon Dioxide 24, Anion Gap 9.9, BUN 23 H, Creatinine 0.90, Estimated Creat Clear 56, Estimated GFR 82, Est GFR ( Amer) 99, Glucose 109 H, Calcium 7.5 L, Total Bilirubin 1.0, AST 52, ALT 55, Alkaline Phosphatase 112, Total Protein 5.0 L, Albumin 2.9 L, Globulin 2.1, Albumin/Globulin Ratio 1.4 12/11/24 11:35: Urine Color Yellow, Urine Appearance Clear, Urine pH 6.0, Ur Specific [place] 1.020, Urine Protein 1+ A, Urine Glucose (UA) Negative, Urine Ketones Negative, Urine Blood 2+ A, Urine Nitrate Negative, Urine Bilirubin Negative, Urine Urobilinogen 4.0, Ur Leukocyte Esterase Negative, Urine RBC 3-5, Urine WBC Occasional, Ur Squamous Epith Cells None, Urine Bacteria 1+ 12/11/24 10:25 12/11/24 10:25 Orders (Tests/Meds): ED MEDICATIONS Generic Name Dose Route Start Last Admin Trade Name Freq PRN Reason Stop Dose Admin Vancomycin HCl 1,000 mg/ 250 mls @ 125 mls/hr 12/11/24 12:15 12/11/24 12:40 Sodium Chloride IV 12/11/24 14:14 Not Given ONCE ONE Discontinued Medications Generic Name Dose Route Start Last Admin Trade Name Freq PRN Reason Stop Dose Admin Acetaminophen 1,000 mg 12/11/24 11:02 12/11/24 11:52 Acetaminophen 1,000mg/100ml Vial IV 12/11/24 11:03 1,000 mg ONCE ONE Administration Cefepime HCl 2 gm/ Sodium 100 mls @ 200 mls/hr 12/11/24 10:47 12/11/24 11:22 Chloride IV 12/11/24 11:16 200 mls/hr ONCE ONE Administration Lactated Ringer's 1,000 mls @ 999 mls/hr 12/11/24 11:00 12/11/24 11:21 Lactated Ringer's 1000 Ml Bag IV 12/11/24 12:00 999 mls/hr .Q1H1M ANNETTE Administration Vancomycin HCl 1,000 mg/ 250 mls @ 125 mls/hr 12/11/24 11:45 12/11/24 11:59 Sodium Chloride IV 12/11/24 13:44 125 mls/hr ONCE ONE Administration Miscellaneous 1 each 12/11/24 11:15 Vancomycin Consult Request NOTAPPLIC 01/10/25 11:14 [facility]ULT [facility] ANNETTE ORDERS Category Date Time Status CT abdomen pelvis wo con Stat Cat Scan 12/11/24 10:[address] cervical spine wo con Stat Cat Scan 12/11/24 11:[address] chest wo con Stat Cat Scan 12/11/24 10:[address] head/brain wo con Stat Cat Scan 12/11/24 10:[address] lumbar spine wo con Stat Cat Scan 12/11/24 10:[address] thoracic spine wo con Stat Cat Scan 12/11/24 10:48 Completed CBC w/Auto Diff [Complete Blood Count Auto Diff] Stat Lab 12/11/24 10:25 Completed CMP [Comprehensive Metabolic Panel] Stat Lab 12/11/24 10:25 Completed Full Resp Panel w/COVID ([facility]) Routine Lab 12/11/24 11:35 Received PT/PTT Stat Lab 12/11/24 10:25 Completed UA [Urinalysis and Microscopic] Stat Lab 12/11/24 11:35 Completed Blood Culture Stat Micro 12/11/24 10:24 Received Venous Blood Gas Stat RT 12/11/24 10:49 Ordered Medical Decision Narrative: Patient with above history and physical. There is a concern for neutropenic fever he was placed in neutropenic precautions and initiated on cefepime. Will do a broad workup for an infectious source. Patient has no focal or localizing symptoms aside from being altered and having lower extremity weakness. There is a concern for possible [employer] involvement with [employer], pression associated with the CLL/SLL. He does have known nodes and has had very large lymph node/mass in his neck in the past. This will need an MRI to rule this out. We have no neurosurgical intervention or radiation oncology available at our healthcare system would likely need to be transferred. I will discuss the case with Dr. Arroyo per the family's request. Reassessment at 11:46 AM patient remains very stable hemodynamically. CT scans were performed which I personally interpreted within the head there is no intra- cranial abnormalities on my personal interpretation CT and L-spine do not see any obvious bony destruction or cause of patient's [employer] symptoms however as stated above this would require MRI which would likely need to be done. Patient CT scan of the chest did not show any dense consolidation in of the abdomen there is numerous extensive intra-abdominal nodes but no other pathology noted specifically hemorrhaging etc. Patient's H&H has dropped most recently from 9 down to 7.7. This is likely secondary to the medication that he has been on. I spoke with Dr. Arroyo who agrees the patient needs to be in a tertiary referral center is there is still concern for [employer] involvement which may need radiation oncology and/or spine surgery. Patient's immediate need is his altered mental status and fever. Cannot rule out [employer] involvement from infectious standpoint either. Vanco and cefepime have been ordered. Family is aware for the need for probable transfer I spoke with Dr. Hernandez at [facility] and awaiting a callback. Reassessment 1:13 PM I spoke with Dr. Hernandez and one of the spine surgeons at [facility] and they recommended given the fact that they are on divert that we get MRIs as there was no definitive need for surgical intervention which I do not disagree with. But I also spoke subsequently with our hospital medicine doctor and we both agreed the patient was too complicated to stay here and would likely need multiple specialties that we do not have available at our hospital. Therefore I called [facility] and ultimately the patient was accepted by Dr. Toure for further evaluation and management. Critical Care Critical Care Time Critical Care Time: Yes Attestation: On 12/11/24, the high probability of a clinically significant, sudden or life threatening deterioration of the following system(s) required my full and direct attention, intervention and personal management. The time I documented below is in addition to time spent performing reported procedures but includes the following listed in this critical care notation. Total Time Total Critical Care Time: 35
[2024-12-11 11:03] LABS: Calcium 7.5 mg/dl (8.4-10.2); Glucose 109 mg/dl (74-100)
[2024-12-11 11:04] LABS: Activated Partial Thrombo Time 33.3 seconds (22.8-30.6); INR 1.30 (0.9-1.1); Prothrombin Time 14.2 seconds (10.1-12.5)
--- NOTE | 2024-12-11 11:07 | CT_ITS ---
FINAL REPORT TECHNIQUE: Thin section axial images were obtained through the cervical spine without contrast. Multiplanar reconstruction images were obtained from the axial data. Exam was performed using dose reduction techniques. This study was performed with techniques to keep radiation doses as low as reasonably achievable (ALARA). Individualized dose reduction techniques using automated exposure control or adjustment of mA and/or kV according to the patient's size were employed. CLINICAL HISTORY: fever and pain COMPARISON: None FINDINGS: There is no acute fracture or acute malalignment of the cervical spine. There is no evidence of unilateral or bilateral facet lock. The craniocervical junction is unremarkable. There is mild anterolisthesis of C6 on C7. Vertebral body height is preserved. There are multiple enlarged cervical lymph nodes present. An example enlarged node is a right posterior triangle lymph node best seen on coronal image #36, measuring 25 mm in the coronal plane. IMPRESSION: No acute osseous abnormality of the cervical spine. Multiple enlarged cervical lymph nodes in this patient with a clinical history of CLL. Multilevel degenerative disc disease is present, most pronounced at the C4-5 and C6-7 levels. Reviewed, Interpreted and Dictated by Amelia Crow MD Transcribed by Angelina Fields Authenticated and [facility]
--- NOTE | 2024-12-11 11:09 | PC.NURSE ---
DR TOMLINSON NOTIFIED AND SPEAKING WITH DR MOBLEY AT THIS TIME
[2024-12-11] MEDS: LACTATED RINGERS 1000ML 1,000 ML 999 ML IV (11:21)
--- NOTE | 2024-12-11 11:21 | PC.NURSE ---
Called for a patient transfer per . He is now on the phone with them.
[2024-12-11] MEDS: CEFEPIME HCL 2 GM in 0.9 % SODIUM CHLORIDE 100 ML IV (11:22)
--- NOTE | 2024-12-11 11:31 | PC.NURSE ---
DR MOBLEY SPEAKING WITH [facility]
[2024-12-11 11:40] LABS: Adenovirus,PCR Not Detected (NotDetected); Chlamydophila Pneumoniae, PCR Not Detected (NotDetected); Coronavirus 19, PCR Not Detected (NotDetected); Coronovirus HKU1,PCR Not Detected (NotDetected); Influenza A, PCR Not Detected (NotDetected); Influenza AH1, 2009 Not Detected (NotDetected); Influenza AH1, PCR Not Detected (NotDetected); Influenza AH3,PCR Not Detected (NotDetected); Influenza B, PCR Not Detected (NotDetected); Microscopic, Urine URINE MICROSCOPIC (MICROSCOPIC); Mycoplasma Pneumoniae, PCR Not Detected (NotDetected); Parainfluenza 1, PCR Not Detected (NotDetected); Parainfluenza 2, PCR Not Detected (NotDetected); Parainfluenza 3, PCR Not Detected (NotDetected); Parainfluenza 4, PCR Not Detected (NotDetected)
[2024-12-11 11:43] LABS: Bilirubin,Urine Negative (Negative); Color,Urine YELLOW (Yellow); Glucose,Urine (UA) Negative (Negative); Ketones,Urine Negative (Negative); Leukocyte Esterase,Urine Negative (Negative); PH,Urine 6.0 (5.0-8.5); Protein,Urine 1+ (Negative); Specific Gravity, Urine 1.020 (1.005-1.030); Urobilinogen,Urine 4.0 EU/dl (0.2)
[2024-12-11] MEDS: ACETAMINOPHEN 1,000MG/100ML VIAL 1000 MG IV (11:52)
--- NOTE | 2024-12-11 11:52 | PC.NURSE ---
on phone with
[2024-12-11 11:59] LABS: WBC,Urine Occasional #/hpf (0-3)
[2024-12-11] MEDS: VANCOMYCIN HCL 1,000 MG in 0.9 % SODIUM CHLORIDE 250 ML 125 MG IV (11:59)
[2024-12-11 12:01] LABS: Bacteria,Urine 1+ /lpf
[2024-12-11 12:09] LABS: RBC Morphology Normal; Total Cells Counted 100
--- NOTE | 2024-12-11 12:20 | PC.NURSE ---
pt repositioned in the bed at this time. no other needs reported
--- NOTE | 2024-12-11 12:21 | PC.NURSE ---
On the phone with for a patient transfer per .
--- NOTE | 2024-12-11 12:28 | PC.NURSE ---
will xall back when the hospitalist is ready to talk.
--- NOTE | 2024-12-11 13:01 | PC.NURSE ---
rounded on pt and at this time. offered something to eat or drink at this time. she declined. pt given another warm blanket
--- NOTE | 2024-12-11 13:08 | PC.NURSE ---
is on the phone with [facility].
--- NOTE | 2024-12-11 14:21 | PC.NURSE ---
attempted to call report to [facility]. asked to call back in 15 minutes
[2024-12-11] MEDS: VANCOMYCIN CONSULT REQUEST 1 EACH NOTAPPLIC (14:31)
--- NOTE | 2024-12-11 14:53 | PC.NURSE ---
report called to Casey Nunez [facility]
--- NOTE | 2024-12-11 15:39 | PC.NURSE ---
report given to Mitzi العراقي
[2024-12-11 22:12] LABS: Acinetobacter calcoaceticus-ba Not Detected; Bacteroides fragilis Not Detected; Candida auris Not Detected; Candida glabrata Not Detected; Enterobacterales Not Detected; Enterococcus faecalis Not Detected; Enterococcus faecium Not Detected; Klebsiella aerogenes Not Detected; Klebsiella pneumoniae grp Not Detected; Proteus spp. Not Detected; Salmonella spp. Not Detected; Serratia marcescens Not Detected; Staphylococcus epidermidis Not Detected; Staphylococcus lugdunensis Not Detected; Staphylococcus spp. Not Detected; Stenotrophomonas maltophilia Not Detected; Streptococcus agalactiae(GrpB) Detected; Streptococcus pyogenes Group A Not Detected; Streptococcus spp. Detected
[2024-12-11 22:27] LABS: Acinetobacter calcoaceticus-ba Not Detected; Bacteroides fragilis Not Detected; Candida auris Not Detected; Candida glabrata Not Detected; Enterobacterales Not Detected; Enterococcus faecalis Not Detected; Enterococcus faecium Not Detected; Klebsiella aerogenes Not Detected; Klebsiella pneumoniae grp Not Detected; Proteus spp. Not Detected; Salmonella spp. Not Detected; Serratia marcescens Not Detected; Staphylococcus epidermidis Not Detected; Staphylococcus lugdunensis Not Detected; Staphylococcus spp. Not Detected; Stenotrophomonas maltophilia Not Detected; Streptococcus agalactiae(GrpB) Detected; Streptococcus pyogenes Group A Not Detected; Streptococcus spp. Detected
--- NOTE | 2024-12-11 23:31 | PC.NURSE ---
Called [facility] and spoke with SHARYN Pillai. Reported preliminary culture results.
== END 2024-12-11 15:35 | disposition other institution (70) ==
PROVIDERS: Emergency Provider Student in an Organized Health Care Education/Training Program; PCP Family Medicine
DX: G93.49 Other encephalopathy (principal); E87.1 Hypo-osmolality and hyponatremia; B95.4 Other streptococcus as the cause of diseases classified elsewhere; R50.9 Fever, unspecified; C91.12 Chronic lymphocytic leukemia of B-cell type in relapse; D63.0 Anemia in neoplastic disease
CPT/HCPCS: 0223U; 70450; 71250; 72125; 72128; 72131; 74176; 80053; 81001; 85007; 85025; 85027; 85610; 85730; 87040; 87077; 87154; 87186; 93005; 96365; 96367; 96375; 99285; J0131; J0692; J3373; J7050; J7120

== ENCOUNTER 2024-12-26 08:45 | Outpatient (CLI) | payer MEDICARE, SELFPAY ==
--- OUTSIDE RECORDS SUMMARY | 2024-12-11 16:55 | XMS_ITS | Encounter Summary ---
Author Organization [employer] ([place], [place], [place], [place]) Address [address] [place] [address] Care Team Providers Care Manager Planning Name Role Phone Eladio Lomas MD Unavailable Breanna Crow PA-C Unavailable [phone] Reason for Visit * Auth/Cert (Routine) Specialty Diagnoses / Procedures Referred By Contac t Referred To Contact Diagnoses Weakness WEAKNESS [place] [address] [address] [place] [phone] Phone: tel: fax: [place] [address] [facility] [address] [place] [phone] Phone: tel: fax: Referral ID Status Reason Start Date Expiration Date Visits Re quested Visits Authorized [id number] 1 1 Encounter Details Date Type Department Care Team (Late st Contact Info) Description 12/11/2024 4:55 PM EDT - 12/14/2024 2:40 PM EDT Hospital Encounter [place] [address] Inter[facility] [address] [place] [phone] Pietro Toure MD [address] [facility] [address] [place] [address] Aneudy Fitch PA-C [address] [place] [address] Maria Guadalupe Lopez MD [address] [facility] [place] [address] Discharge Disposition: Home or Self Care Social [...] living situation today? I have a [facility] place to live 12/11/2024 Think [...] Do you speak a language other than Hebrew at [facility]? No 12/11/2024 Do you want help [...] became febrile again. Pt was brought to [facility] ED where patient's CT head read abnormally and pt's chest CT identified likely pneumonia.Due to pt's current history and imaging pt was subsequently transferred to [facility] for further evaluation by MRI. Pt did [...] Your Medications These medications were sent to [id number] - [place], [place] - [address] AT [facility] & [address] [place] [address] aspirin 81 MG EC tablet cefdinir 300 [...] Arita APRN Specialty: Neurology, Nurse Practitioner [address] [phone] Next Steps: Schedule an appointment as soon as possible for a visit in 4 week(s) Instructions: Hospital follow up for stroke Primary Care Provider Next Steps: Follow up in 1 week(s) Phuong Lewis MD Specialty: Cardiology, Respiratory Therapy, Electrophysiology, Electrophysiology - Cardiac [address] [facility] [address] [place] [address] Next Steps: Follow up in 6 week(s) [...] Lewis MD - 12/14/2024 2:40 PM EDT Call Out Operator: Chief Complaint: No chief complaint on file. [...] date. Wheelchair Mobility Not assessed, patient ambulatory. AM-[facility] Basic Mobility Inpatient Short Form How much [...] equipment discharge needs at this time. Goals Dhiwao-ok-lpz: By the target date, patient will perform rxyopb-kq-dfq with modified independence, utilizing no assistive device, to improve independence with bed mobility. Opz-ot-emvgk: By the target date, patient will perform [...] Matilda Arita APRN Specialty: Neurology, Nurse Practitioner [address] [place] [phone] Next Steps: Schedule an appointment as soon as possible for a visit in 4 week(s) Instructions: Hospital follow up for stroke Transporation Provider: (P) Family/Spouse Transporation Contact Name: Transportation Provider Phone: Date of suppression crew leader: (P) 12/14/24 Time of suppression crew leader: 12/14/24 1052 Final Discharge Plan PCP referral provided? No Community Referral Discussed with Patient? No Patient appealing discharge? No Does the patient have the ability to fill and receive their discharge medications? Yes Patient returning to prior living situation? Yes Support Systems Spouse/significant other;Family members Discharge Disposition Home Transportation Provider Family/Spouse Date of suppression crew leader 12/14/24 FELIZ Benitez * Alyson Ferguson MD [...] 1950 Age: 74 year(s) Corporate ID Number: [id number] Gender Male Agricultural Equipment Design Engineer: Jillian Souza Height: [address] [facility] Referring Physician: MARIA GUADALUPE LOPEZ MD Weight: [...] 1.15 m/s E/A ratio: 1.42 m/s Volume [id number] LV length: 8.99 cm ml Volume .92 [...] Valve TR velocity: 3 m/s TR gradient: 35.69643 mmHg Estimated RAP: 8 mmHg RVSP: 43.96 [...] SANDIE SMITH Age 74 [place] Patient Number [id number] Gender Male Race Ethnicity Corporate ID [id number] Height 65 Date of 1950 Weight 139 Accession Number [id number] BSA 1.69 m^2 Room Number 405 BMI 23.13 kg/m^2 Referring MARIA GUADALUPE LOPEZ MD Interpreting BEBETO WALTER MD Physician Physician Agricultural Equipment Design Engineer Rosy Guido RVT Procedure Type of [...] Demographics Patient Name SANDIE SMITH Age 74 [place] Patient Number [id number] Gender Male Race Ethnicity Corporate ID [id number] Height 65 Date of 1950 Weight 139 Accession Number [id number] BSA 1.69 m^2 Room Number 405 BMI 23.13 kg/m^2 Referring Alyson Ferguson MD Interpreting BEBETO WALTER MD Physician Physician Agricultural Equipment Design Engineer Rosy Guido [facility] Procedure Type of Study: Veins: Venous [...] Acute Services Home/self care Type of Home/Self Penitent[facility] with family care Does the patient have the ability to fill and receive their discharge medications? Yes Discharge Plan Discussed The discharge plan was discussed with patient. Discharge Plan Outcome Patient/family commercial representative agrees with the discharge plan Discharge [...] (P) Home Mandated Reporting: (P) Not applicable PT/OT/MATCHER OFFBEARER Recommendations PT Recommendations: OT Recommendations: MATCHER OFFBEARER Recommendations: Cm spoke to patient and spouse at bedside. Has a PCP- Dr Arsalan Isabel. Can afford meds. Has been independent with ADL's prior to a week ago. Now has BLE weakness. Has transport home. Declines need for SNF/HH. Plans to return home. Choice letter and list of GUEST EXPERIENCE SPECIALIST's given just in case changes mind. Care [...] resistance at shoulder, elbow, and wrist. Coordination/Sensation Ipwgpr-vz-jtfg: LUE (4) Normal performance, RUE (3) Minimal [...] guard assist Toileting:Contact guard assist Outcome Measures [facility] Daily Living Functional Assessment How much [...] (Minimal/Contact guard/Supervision/Setup) 4=None (Modified independent/Independent) The patient's [facility] raw score is 18. The patient currently has 46.65% functional impairment. Clinicians are most likely to recommend inpatient/SNF/jail care for patients with scores between 6-17, [...] prior level of function. The patient's current [facility] score of 18 would indicate that [...] was stopped H/O DVT -Was on Eliquis [id number] DVT: Therapeutic Lovenox Discharge Planning: Barriers to [...] Result Value Ref Range MRSA by PCR [facility] MRSA Not Detected by [...] a history of CLL presents to [facility] in [place], [place] for further evaluation and management of [...] became febrile again. Patient was brought to [facility] emergency department where patient's CT head read abnormally and patient's chest CT identified likely pneumonia. Due to patient's current history and imaging patient was subsequently transferred to [facility] for further evaluation by MRI. Patient is [...] Allergies Allergen Reactions Iodinated Contrast Media Documented RN CHEMICAL DEPENDENCY Medications: Medications Prior to Admission Medication Sig [...] PA-C Consult ordered by: Matt Vargas MD [facility] NEUROSURGERY CONSULT NOTE Primary Care [...] Guadalupe Lopez MD Reason for consult: AF [facility]al Electrophysiology -Consult Basic Information: Name Corbin Hu, [...] of motion, Normal strength. Integumentary: Warm, Dry, [place]. Neurologic: Alert, Oriented. Psychiatric: Cooperative, Appropriate mood & affect. Psychiatric: Inpatient Medications Current Facility-Administered Medications Medication Dose Route Frequency Provider Last Rate Last Admin acetaminophen (TYLENOL) tablet 1,000 mg 1,000 mg oral Q6H PRN Aneudy Fitch, PA-C 1,000 mg at 12/12/24 1549 cefTRIAXone (ROCEPHIN) 1 g in sodium chloride 0.9 % (NS) 50 mL EFRAIN IVPB 1 g intravenous Q24H [facility] Aneudy Fitch PA-C IVPB Stopped at [...] Maria Guadalupe Lopez MD 250 mg at 12/13/24 0847 sodium [...] Images reviewed, interpreted, and dictated by Haider oBnd MD XR chest AP portable Narrative: Portable [...] been a patient of Dr. Lomas in [place]. He was diagnosed with CLL in approximately [...] RN Outcome: Adequate for Discharge 12/14/20241312 by Moar Munguia RN Outcome: Progressing Goal: Mobility/activity is [...] Care Team (Late st Contact Info) Description 01/23/2025 11:00 AM EDT Office Visit [facility] Neurology - [address] [place] [address] Matilda Arita APRN [address] [place] [address] 01/28/2025 9:45 AM EDT Office Visit [facility] Electrophysiology [address] [place] [address] Phuong Lewis MD [address] [facility] [address] [place] [address] documented as of this encounter Procedures Procedure [...] Total Counted 100 12/14/2024 8:02 AM EDT [facility] % Neutros (manual) 13(L) 50 - 65 % 12/14/2024 8:02 AM EDT [facility] % Lymphs (manual) 86(H) 24 - 44 % 025 8:02 AM EDT [facility] % Monos (manual) 1(L) 4 - 5 % 12/15/19 25 8:02 AM EDT [facility] RBC Morphology abnormal(A) Normal 8:02 AM EDT [facility] Platelet Estimate Adequate Adequate 025 8:02 AM EDT [facility] Anisocytosis 1+ 12/14/2024 8:02 AM EDT [facility] Hypochromia 1+ 12/14/2024 8:02 AM EDT [facility] Polychromasia 1+ 12/14/2024 8:02 AM EDT [facility] Smudge Cells Present 12/14/2024 8:02 AM EDT [facility] Macrocytes 1+ 12/14/2024 8:02 AM EDT [facility] ANC# 2.89 K/ L 12/14/2024 8:02 AM EDT [facility] Blood Venipuncture / Unknown 12/14/2024 5:35 AM EDT 12/14/2024 6:05 AM EDT us Matt Vargas MD LAB BLOOD ORDERABLES Final Res ult [facility] [address] [place] [id number], [facility] [phone] * (ABNORMAL) CBC with automated diff (12/14/2024 5:35 AM EDT) WBC 22.2(H) 4.2 - 9.1 K/ L 12/14/2024 6:17 AM EDT [facility] RBC 2.63(L) 4.63 - 6.08 M/ L 12/14/2024 6:17 AM EDT [facility] Hemoglobin 8.2(L) 13.7 - 17.5 GM/DL 12/14/2024 6:17 AM EDT [facility] Hematocrit 25.9(L) 40.1 - 51.0 % 12/14/2024 6:17 AM EDT [facility] MCV 99(H) 79 - 92 fL 12/14/2024 6:17 AM EDT [facility] MCH 31.2 25.7 - 32.2 pg 12/14/2024 6:17 AM EDT [facility] MCHC 31.7(L) 32.3 - 36.5 GM/DL 12/14/2024 6:17 AM EDT [facility] RDW 15.0(H) 11.6 - 14.4 % 12/14/2024 6:17 AM EDT [facility] Platelets 177 140 - 375 K/CU MM 12/14/2024 6:17 AM EDT [facility] MPV 9.9 9.4 - 12.4 fL 12/14/2024 6:17 AM EDT [facility] NRBC Absolute <0.01 0 - 0.012 K/ul 12/14/2024 6:17 AM EDT [facility] Blood Venipuncture / Unknown 12/14/2024 5:35 AM EDT 12/14/2024 6:05 AM EDT Narrative [facility] - 12/14/2024 6:17 AM EDT [...] MD LAB BLOOD ORDERABLES Final Res ult [facility] [address] [phone] * (ABNORMAL) Basic Metabolic Panel (12/14/2024 5:35 AM EDT) Sodium 142 136 - 145 meq/L 12/14/2024 6:48 AM EDT [facility] Potassium 3.9 3.4 - 5.1 meq/L 12/14/2024 6:48 AM EDT [facility] CO2 25 22 - 29 meq/L 12/14/2024 6:48 AM EDT [facility] Chloride 108 98 - 112 meq/L 12/14/2024 6:48 AM EDT [facility] Glucose 120(H) 82 - 115 mg/dL 12/14/2024 6:48 AM EDT [facility] BUN 14.4 8.4 - 25.7 mg/dL 12/14/2024 6:48 AM EDT [facility] Creatinine 0.68(L) 0.72 - 1.25 mg/dL 12/14/2024 6:48 AM EDT [facility] BUN/Creatinine 21(H) 8 - 20 12/14/2024 6:48 AM EDT [facility] Calcium 7.7(L) 8.4 - 10.2 mg/dL 12/14/2024 6:48 AM EDT [facility] Anion Gap 13(H) 4 - 12 12/14/2024 6:48 AM EDT [facility] eGFR (mL/min/1.73m2) 96 >=60 mL/min/1.7 3m2 12/14/2024 6:48 AM EDT [facility] Osmolality Calc 284.9 mOsm/kg 6:48 AM EDT [facility] Blood Venipuncture / Unknown 12/14/2024 5:35 AM EDT 12/14/2024 6:18 AM EDT us Maria Guadalupe Lopez MD LAB BLOOD ORDERABLES Final Re sult Performing Organization Address City/[facility]/ZIP Co de Phone Number [facility] [address] [phone] * Sedimentation rate (12/13/2024 6:09 PM EDT) Sed Rate 10 0 - 20 mm/HR 12/13/2024 6:24 PM EDT [facility] Blood Venipuncture / Unknown 12/13/2024 6:09 PM EDT 12/13/2024 6:20 PM EDT us Jaron Amin MD LAB BLOOD ORDERABLES Final Resul t Performing Organization Address [facility] Co de Phone Number [facility] [address] [phone] * ECHO COMPLETE (DOPPLER / COLOR) WO CONTRAST (12/13/2024 1:08 PM EDT) Anatomical Region Laterality Modality Heart Vascular Ultraso und 12/13/2024 12:1 1 PM EDT Narrative 12/13/2024 11:34 PM EDT TRANSTHORACIC ECHOCARDIOGRAPHY REPORT Demographics Patient Name: SANDIE KOROMA : 1950 Age: 74 year(s) Corporate ID Number: [id number] Gender Male Agricultural Equipment Design Engineer: Jillian Souza Height: [address] Referring Physician: MARIA GUADALUPE LOPEZ MD Weight: [...] 1.15 m/s E/A ratio: 1.42 m/s Volume .52 LV length: 8.99 cm ml Volume jhbosgxj27.92 ml LVOT diameter: 2.03 cm Normal sized [...] Valve TR velocity: 3 m/s TR gradient: 35.42898 mmHg Estimated RAP: 8 mmHg RVSP: 43.96 [...] 1950 Age: 74 year(s) Corporate ID Number: [id number] Gender Male Agricultural Equipment Design Engineer: Jillian Souza Height: [address] [facility] Referring Physician: MARIA GUADALUPE LOPEZ MD Weight: 139 pounds Interpreting BEBETO WALTER MD BMI: 23.13 kg/m^2 Physician: Date of Service: 12/13/2024 Blood Pressure: 118/57 mmHg Room Number: 405 Type of Study: TTE procedure: ECHO COMPLETE (DOPPLER / COLOR) W OR WO CONTRAST. Patient Status: Routine IP [facility] History/Tech Notes: Indication: other [...] 1.15 m/s E/A ratio: 1.42 m/s Volume [id number] LV length: 8.99 cm ml Volume tnhmyyzy95.92 ml LVOT diameter: 2.03 cm Normal sized [...] Valve TR velocity: 3 m/s TR gradient: 35.92952 mmHg Estimated RAP: 8 mmHg RVSP: 43.96 [...] Demographics Patient Name SANDIE SMITH Age 74 [place] Patient Number [id number] Gender Male Race Ethnicity Corporate ID [id number] Height 65 Date of 1950 Weight 139 Accession Number [id number] BSA 1.69 m^2 Room Number 405 BMI 23.13 kg/m^2 Referring Alyson Ferguson MD Interpreting BEBETO WALTER MD Physician Physician Agricultural Equipment Design Engineer Rosy Guido T Procedure Type of [...] Demographics Patient Name SANDIE SMITH Age 74 [place] Patient Number [id number] Gender Male Race Ethnicity Corporate ID [id number] Height 65 Date of 1950 Weight 139 Accession Number [id number] BSA 1.69 m^2 Room Number 405 BMI 23.13kg/m^2 Referring Aylson Ferguson MD Interpreting BEBETO PERALTA Physician Physician Agricultural Equipment Design Engineer Rosy Guido RVT Procedure Type of [...] SANDIE SMITH Age 74 [place] Patient Number [id number] Gender Male Race Ethnicity Corporate ID [id number] Height 65 Date of 1950 Weight 139 Accession Number [id number] BSA 1.69 m^2 Room Number 405 BMI 23.13 kg/m^2 Referring MARIA GUADALUPE LOPEZ MD Interpreting BEBETO WALTER MD Physician Physician Agricultural Equipment Design Engineer Rosy Guido T Procedure Type of Study: Cerebral: Carotid, [...] Demographics Patient Name SANDIE SMITH Age 74 [place] Patient Number [id number] Gender Male Race Ethnicity Corporate ID [id number] Height 65 Date of 1950 Weight 139 Accession Number [id number] BSA 1.69 m^2 Room Number 405 BMI 23.13kg/m^2 Referring MARIA GUADALUPE LOPEZ MD Interpreting BEBETO PERALTA Physician Physician Agricultural Equipment Design Engineer Rosy Guido RVT Procedure Type of [...] - 5.0 mg/L 12/13/2024 6:10 PM EDT [facility] Blood Venipuncture / Unknown 12/13/2024 5:12 AM EDT 12/13/2024 5:24 AM EDT us Jaron Amin MD LAB BLOOD ORDERABLES Final Resul t Performing Organization Address [facility]/ZIP Co de Phone Number [facility] [address] [phone] * Magnesium (12/13/2024 5:12 AM EDT) Pathologist [facility] Magnesium 2.2 1.6 - 2.6 mg/dL 12/13/2024 3:16 PM EDT [facility] Blood Venipuncture / Unknown 12/13/2024 5:12 AM EDT 12/13/2024 5:24 AM EDT Phuong Lewis MD LAB BLOOD ORDERABLES Final Resu lt [facility] [address] [phone] * (ABNORMAL) Lipid panel (12/13/2024 5:12 AM EDT) Pathologist [facility] Triglycerides 108 <=149 mg/dL 12/13/2024 8:20 AM EDT [facility] Comment: Normal: < 150 mg/dL Borderline High: 150 to 199 mg/dL High: 200 to 499 mg/dL Very High: >/= 500 mg/dL Cholesterol 81(L) 100 - 199 mg/dL 12/13/2024 8:20 AM EDT [facility] Comment: Child: Desirable: < 170 mg/dL Borderline: 170 to 199 mg/dL High: >/= 200 mg/dL Adult: Desirable: < 200 mg/dL Borderline: 200 to 239 mg/dL High: >/= 240 mg/dL HDL Cholesterol 12 See Comment mg/dL 12/13/2024 8:20 AM EDT [facility] Comment: Major risk factor for heart disease: < 40 mg/dL Negative risk factor for heart disease: >/= 60 mg/dL LDL Cholesterol, Calculated 47 0 - 100 mg/dL 12/13/2024 8:20 AM EDT [facility] Comment: Unable to calculate Optimal: < 100 mg/dL Near or above optimal: 100 to 129 mg/dL Borderline high: 130 to 159 mg/dL High: 160 to 189 mg/dL Very high: >/= 190 mg/dL Based on AHA/NCEP Guidelines LDl/HDL Ratio 4 0 - 4 12/13/2024 8:20 AM EDT [facility] Comment:Unable to calculate. Cholesterol/HDL ratio 6.8(H) 0.0 - 5.0 mg/dL 12/13/2024 8:20 AM EDT [facility] VLDL Cholesterol 21.6 5 - 40 mg/dL 12/13/2024 8:20 AM EDT [facility] Comment:Unable to calculate Blood Venipuncture / Unknown 12/13/2024 5:12 AM EDT 12/13/2024 5:24 AM EDT us Maria Guadalupe Lopez MD LAB BLOOD ORDERABLES Final Re sult [facility] [address] [phone] * (ABNORMAL) Manual Differential (12/13/2024 5:12 AM EDT) Total Counted 100 12/13/2024 6:24 AM EDT [facility] % Neutros (manual) 26(L) 50 - 65 % 12/13/2024 6:24 AM EDT [facility] % Lymphs (manual) 72(H) 24 - 44 % 12/13/2024 6:24 AM EDT [facility] % Monos (manual) 2(L) 4 - 5 % 12/14/19 6:24 AM EDT [facility] Atypical Lymphs Present 6:24 AM EDT [facility] RBC Morphology abnormal(A) Normal 6:24 AM EDT [facility] Platelet Estimate Adequate Adequate 12/13/2024 6:24 AM EDT [facility] Anisocytosis 1+ 12/13/2024 6:24 AM EDT [facility] Poikilocytes 1+ 12/13/2024 6:24 AM EDT [facility] Hypochromia 1+ 12/13/2024 6:24 AM EDT [facility] Elliptocytes 1+ 12/13/2024 6:24 AM EDT [facility] Smudge Cells Present 12/13/2024 6:24 AM EDT [facility] ANC# 4.84 K/ L 12/13/2024 6:24 AM EDT [facility] Blood Venipuncture / Unknown 12/13/2024 5:12 AM EDT 12/13/2024 5:25 AM EDT us Matt Vargas MD LAB BLOOD ORDERABLES Final Res ult Performing Organization Address City/State/[facility] Co de Phone Number [facility] [address] [phone] * (ABNORMAL) CBC with automated diff (12/13/2024 5:12 AM EDT) WBC 18.6(H) 4.2 - 9.1 K/ L 12/13/2024 6:24 AM EDT [facility] RBC 2.57(L) 4.63 - 6.08 M/ L 12/13/2024 6:24 AM EDT [facility] Hemoglobin 8.1(L) 13.7 - 17.5 GM/DL 12/13/2024 6:24 AM EDT [facility] Hematocrit 24.9(L) 40.1 - 51.0 % 12/13/2024 6:24 AM EDT [facility] MCV 97(H) 79 - 92 fL 12/13/2024 6:24 AM EDT [facility] MCH 31.5 25.7 - 32.2 pg 12/13/2024 6:24 AM EDT [facility] MCHC 32.5 32.3 - 36.5 GM/DL 12/13/2024 6:24 AM EDT [facility] RDW 14.7(H) 11.6 - 14.4 % 12/13/2024 6:24 AM EDT [facility] Platelets 167 140 - 375 K/CU MM 12/13/2024 6:24 AM EDT [facility] MPV 9.8 9.4 - 12.4 fL 12/13/2024 6:24 AM EDT [facility] NRBC Absolute <0.01 0 - 0.012 K/ul 12/13/2024 6:24 AM EDT [facility] Blood Venipuncture / Unknown 12/13/2024 5:12 AM EDT 12/13/2024 5:25 AM EDT Narrative [facility] - 12/13/2024 6:24 AM EDT [...] MD LAB BLOOD ORDERABLES Final Res ult [facility] [address] [phone] * Vitamin D, 25-Hydroxy (12/13/2024 5:12 AM EDT) Vitamin D 25-Hydroxy 31.33 30 - 80 ng/mL 12/13/2024 6:13 AM EDT [facility] Blood Venipuncture / Unknown 12/13/2024 5:12 AM EDT 12/13/2024 5:24 AM EDT us Maria Guadalupe Lopez MD LAB BLOOD ORDERABLES Final Re sult Performing Organization Address [facility] Co de Phone Number [facility] [address] [phone] * TSH (12/13/2024 5:12 AM EDT) TSH 2.613 0.350 - 4.940 uIU/mL 12/13/2024 6:07 AM EDT [facility] Blood Venipuncture / Unknown 12/13/2024 5:12 AM EDT 12/13/2024 5:24 AM EDT us Maria Guadalupe Lopez MD LAB BLOOD ORDERABLES Final Re sult Performing Organization Address [facility] de Phone Number [facility] [address] [phone] * (ABNORMAL) Basic Metabolic Panel (12/13/2024 5:12 AM EDT) Pathologist [facility] Sodium 136 136 - 145 meq/L 12/13/2024 6:07 AM EDT [facility] Potassium 4.0 3.4 - 5.1 meq/L 12/13/2024 6:07 AM EDT [facility] CO2 23 22 - 29 meq/L 12/13/2024 6:07 AM EDT [facility] Chloride 107 98 - 112 meq/L 12/13/2024 6:07 AM EDT [facility] Glucose 118(H) 82 - 115 mg/dL 12/13/2024 6:07 AM EDT [facility] BUN 17.4 8.4 - 25.7 mg/dL 12/13/2024 6:07 AM EDT [facility] Creatinine 0.75 0.72 - 1.25 mg/dL 12/13/2024 6:07 AM EDT [facility] BUN/Creatinine 23(H) 8 - 20 12/13/2024 6:07 AM EDT [facility] Calcium 7.6(L) 8.4 - 10.2 mg/dL 12/13/2024 6:07 AM EDT [facility] Anion Gap 10 4 - 12 12/13/2024 6:07 AM EDT [facility] eGFR (mL/min/1.73m2) 94 >=60 mL/min/1.7 3m2 12/13/2024 6:07 AM EDT [facility] Osmolality Calc 274.7 mOsm/kg 6:07 AM EDT [facility] Blood Venipuncture / Unknown 12/13/2024 5:12 AM EDT 12/13/2024 5:24 AM EDT us Maria Guadalupe Lopez MD LAB BLOOD ORDERABLES Final Re sult [facility] [address] [phone] * MR Brain Without IV Contrast (12/12/2024 [...] interpreted, and dictated by Haider Bond MD Aneudy Fitch PA-C IMG MRI ORDERABLES Final [...] process. Images reviewed, interpreted, and dictated by MD Torey Saha 12/12/2024 7:17 PM EDT MRI HEAD WITHOUT [...] interpreted, and dictated by Haider Bond MD Maria Guadalupe Lopez MD IM MRI ORDERABLES Final Resu lt * Legionella antigen, urine (12/12/2024 11:48 AM EDT) Legionella Urine Antigen Presumptive negative for L. pneumophila serogroup 1 antigen in urine- see comment Presumptive negative for L. pneumophila serogroup 1 antigen in urine- see comment 12/12/2024 12:08 PM EDT [facility] Urine 12/12/2024 11:4 8 AM EDT 12/12/2024 11:48 AM EDT Narrative [facility] - 12/12/2024 12:08 PM EDT [...] Guadalupe Lopez MD URINE ORDERABLES Final Result Performing Organization Address [facility] Co de Phone Number [facility] [address] [phone] * Strep pneumoniae urine antigen (12/12/2024 11:48 AM EDT) Strep pneumoniae Antigen Presumptive negative for pneumococcal pneumonia - see comment Presumptive negative for pneumococcal pneumonia- see comment 12/12/2024 12:09 PM EDT [facility] Urine URINE / Unknown 12/12/2024 1 1:48 AM EDT 12/12/2024 11:48 AM EDT Narrative [facility] - 12/12/2024 12:09 PM EDT A presumptive negative result suggests no current or recent pneumococcal infection. Infection due to S. pneumoniae cannot be ruled out since the antigen present in the specimen may be below the detection limit of the test. us Maria Guadalupe Lopez MD MICROBIOLOGY - GENERAL ORDERA BLES Final Result Performing Organization Address [facility] de Phone Number [facility] [address] [phone] * Respiratory Panel (12/12/2024 10:27 AM EDT) ADENOVIRUS Not detected Not detected 12/12/2024 11:25 AM EDT [facility] CORONAVIRUS 229E Not detected Not detected 12/12/2024 11:25 AM EDT [facility] CORONAVIRUS HKU1 Not detected Not detected 12/12/2024 11:25 AM EDT [facility] CORONAVIRUS NL63 Not detected Not detected 12/12/2024 11:25 AM EDT [facility] CORONAVIRUS OC43 Not detected Not detected 12/12/2024 11:25 AM EDT [facility] SARS-COV2/RT-PCR Not Detected Not Detected 12/12/2024 11:25 AM EDT [facility] HUMAN METAPNEUMOVIRUS Not detected Not detected 12/12/2024 11:25 AM EDT [facility] HUMAN RHINOVIRUS/ENTEROV IRUS Not detected Not detected 12/12/2024 11:25 AM EDT [facility] INFLUENZA A Not detected Not detected 12/12/2024 11:25 AM EDT [facility] INFLUENZA B Not detected Not detected 12/12/2024 11:25 AM EDT [facility] PARAINFLUENZA VIRUS 1 Not detected Not detected 12/12/2024 11:25 AM EDT [facility] PARAINFLUENZA VIRUS 2 Not detected Not detected 12/12/2024 11:25 AM EDT [facility] PARAINFLUENZA VIRUS 3 Not detected Not detected 12/12/2024 11:25 AM EDT [facility] PARAINFLUENZA VIRUS 4 Not detected Not detected 12/12/2024 11:25 AM EDT [facility] RESPIRATORY SYNCYTIAL VIRUS Not detected Not detected 12/12/2024 11:25 AM EDT [facility] BORDETELLA PARAPERTUSSIS Not detected Not detected 12/12/2024 11:25 AM EDT [facility] BORDETELLA PERTUSSIS Not detected Not detected 12/12/2024 11:25 AM EDT [facility] CHLAMYDIA PNEUMONIAE Not detected Not detected 12/12/2024 11:25 AM EDT [facility] MYCOPLASMA PNEUMONIAE Not detected Not detected 12/12/2024 11:25 AM EDT [facility] Nasopharyngeal NASOPHARYNGEAL SWAB / Unknown 12/12/2024 10:27 AM EDT 12/12/2024 10:28 AM EDT [facility] - 12/12/2024 11:25 AM EDT Testing was performed with RT-PCR methodology using the [employer] Respiratory Panel 2.1 which has FDA De [...] decisions. This sample was tested at the [facility] using the goAct FilmArray Respiratory Panel. It is FDA cleared and has been verified and approved by the [facility] for clinical use on nasopharyngeal swab specimens. The performance of the FilmArray RP has not been established in individuals who received influenza vaccine. Recent administration of a nasal influenza vaccine may cause false positive results for Influenza A and/or Influenza B. us Maria Guadalupe Lopez MD MICROBIOLOGY - GENERAL ORDERA BLES Final Result [facility] [address] [phone] * MRSA Screen (12/12/2024 10:27 AM EDT) [facility] MRSA by PCR [facility] MRSA Not Detected by PCR MRSA Not Detected by PCR DEVICE ID9 12/12/2024 11:45 AM EDT [facility] Nasal BOTH ANTERIOR NARES / Unknown 12/12/2024 10:27 AM EDT 12/12/2024 10:28 AM EDT us Maria Guadalupe Lopez MD MICROBIOLOGY - GENERAL ORDERA BLES Final Result Performing Organization Address City/[facility]/ZIP Co de Phone Number [facility] [address] [phone] * XR chest AP portable (12/12/2024 9:10 [...] - 816 pg/mL 12/12/2024 10:35 AM EDT [facility] Blood Venipuncture / Unknown 12/12/2024 3:51 AM EDT 12/12/2024 4:38 AM EDT us Maria Guadalupe Lopez MD LAB BLOOD ORDERABLES Final Re sult Performing Organization Address City/[facility]/ZIP Co de Phone Number [facility] [address] [phone] * (ABNORMAL) Ferritin (12/12/2024 3:51 AM EDT) Ferritin 474.71(H) 21.81 - 274.66 ng/mL 12/12/2024 10:35 AM EDT [facility] Blood Venipuncture / Unknown 12/12/2024 3:51 AM EDT 12/12/2024 4:38 AM EDT us Maria Guadalupe Lopez MD LAB BLOOD ORDERABLES Final Re sult Performing Organization Address City/[facility]/ZIP Co de Phone Number [facility] [address] [phone] * (ABNORMAL) Iron and TIBC (12/12/2024 3:51 AM EDT) Iron 11(L) 65 - 175 ug/dL 12/12/2024 10:35 AM EDT [facility] TIBC 183(L) 250 - 435 ug/dL 12/12/2024 10:35 AM EDT [facility] % Saturation 6 % 12/12/2024 10:35 AM EDT [facility] UIBC 172 12/12/2024 10:35 AM EDT [facility] Blood Venipuncture / Unknown 12/12/2024 3:51 AM EDT 12/12/2024 4:38 AM EDT us Maria Guadalupe Lopez MD LAB BLOOD ORDERABLES Final Re sult [facility] [address] [phone] * (ABNORMAL) Basic Metabolic Panel (12/12/2024 3:51 AM EDT) Sodium 140 136 - 145 meq/L 12/12/2024 5:15 AM EDT [facility] Potassium 3.9 3.4 - 5.1 meq/L 12/12/2024 5:15 AM EDT [facility] CO2 24 22 - 29 meq/L 12/12/2024 5:15 AM EDT [facility] Chloride 107 98 - 112 meq/L 12/12/2024 5:15 AM EDT [facility] Glucose 105 82 - 115 mg/dL 12/12/2024 5:15 AM EDT [facility] BUN 18.6 8.4 - 25.7 mg/dL 12/12/2024 5:15 AM EDT [facility] Creatinine 1.02 0.72 - 1.25 mg/dL 12/12/2024 5:15 AM EDT [facility] BUN/Creatinine 18 8 - 20 12/12/2024 5:15 AM EDT [facility] Calcium 7.8(L) 8.4 - 10.2 mg/dL 12/12/2024 5:15 AM EDT [facility] Anion Gap 13(H) 4 - 12 12/12/2024 5:15 AM EDT [facility] eGFR (mL/min/1.73m2) 76 >=60 mL/min/1.7 3m2 12/12/2024 5:15 AM EDT [facility] Osmolality Calc 281.9 mOsm/kg 5:15 AM EDT [facility] Blood Venipuncture / Unknown 12/12/2024 3:51 AM EDT 12/12/2024 4:38 AM EDT us Aneudy Fitch PA-C LAB BLOOD ORDERABLES Final Res ult [facility] [address] [phone] * (ABNORMAL) CBC - Hemogram (SJ-BKR) (12/12/2024 3:51 AM EDT) WBC 16.1(H) 4.2 - 9.1 K/ L 12/12/2024 4:46 AM EDT [facility] RBC 2.60(L) 4.63 - 6.08 M/ L 12/12/2024 4:46 AM EDT [facility] Hemoglobin 8.2(L) 13.7 - 17.5 GM/DL 12/12/2024 4:46 AM EDT [facility] Hematocrit 25.8(L) 40.1 - 51.0 % 12/12/2024 4:46 AM EDT [facility] MCV 99(H) 79 - 92 fL 12/12/2024 4:46 AM EDT [facility] MCH 31.5 25.7 - 32.2 pg 12/12/2024 4:46 AM EDT [facility] MCHC 31.8(L) 32.3 - 36.5 GM/DL 12/12/2024 4:46 AM EDT [facility] RDW 14.8(H) 11.6 - 14.4 % 12/12/2024 4:46 AM EDT [facility] Platelets 168 140 - 375 K/CU MM 12/12/2024 4:46 AM EDT [facility] MPV 9.7 9.4 - 12.4 fL 12/12/2024 4:46 AM EDT [facility] Blood Venipuncture / Unknown 12/12/2024 3:51 AM EDT 12/12/2024 4:35 AM EDT us Aneudy Fitch PA-C LAB BLOOD ORDERABLES Final Res ult [facility] [address] [phone] documented in this encounter Visit Diagnoses Diagnosis [...] oral, First dose on Tue12/13/24 at 0900 Given 12/14/2024 9:05 AM EDT [...] FORM * 0848 (Given - Provider: Samantha Dias, RN) aspirin EC tablet 81 mg 81 [...] RN) 2043 (IVPB Started - Provider: Milvia Price RN)2112 (IVPB Stopped - Provider: Milvia Price, SHARYN) [...] RN)2119 (Given - Provider: Freya Roberts RN) 0848 (Given - Provider: Samantha Dias, SHARYN)2043 (Given - Provider: Milvia Price, SHARYN) 0905 (Given - Provider: Mora Munguia, SHARYN) enoxaparin [...] Samantha Dias RN)4 (Given - Provider: Milvia Price RN) famotidine (PEPCID) tablet 20 mg 20 [...] Munguia, SHARYN)1354 (IVPB Stopped - Provider: Mora Munguia RN) gabapentin (NEURONTIN) capsule 300 mg (CANCELED) 300 mg 2 times daily, oral, First dose on Tue12/12/24 at 1200 1214 (Given - Provider: Elizabeth Rodriguez RN)2120 (Given - Provider: Freya Roberts RN) 0848 (Given - Provider: Samantha Dias, SHARYN) gabapentin (NEURONTIN) capsule 300 mg 300 mg Every Night, oral, First dose (after last modification) on Tue12/13/24 at 2100 2044 (Given - Provider: Milvia Price, RN) melatonin tablet 5 mg 5 mg Every Night, oral, First dose on Tue12/11/24 at 2100 2120 (Given - Provider: Freya Roberts, SHARYN) 2043 (Given - Provider: Milvia Price, RN) multivitamin (THERAGRAN) tablet 1 tablet 1 tablet Daily, oral, First dose on Tue12/13/24 at 0900 0847 (Given - Provider: Samantha Dias, SHARYN) 0905 (Given - Provider: Mora Munguia, SHARYN) [...] Comment: pt down to MRI at scheduled time)2151 (Given - Provider: Freya Roberts RN - Comment: pt at MRI at due time) 0847 (Given - Provider: Samantha Dias RN)1341 (Given - Provider: Samantha Dias RN)1826 (Given - Provider: Samantha Dias RN) 0906 (Given - Provider: Mora Munguia, SHARYN)1352 (Given - Provider: Mora Munguia, RN) Saccharomyces boulardii (FLORASTOR) capsule 250 mg [...] Freya Roberts RN)1549 (Given - Provider: Elizabeth Rodriguez RN) cloNIDine (CATAPRES) tablet 0.1 mg 0.1 mg [...] Look-alike/Sound-alike medication 0542 (Given - Provider: Freya Roberts, SHARYN)1043 (Given - Provider: Elizabeth Rodriguez, SHARYN)2140 (Given - Provider: Freya Roberts RN) 0453 (Given - Provider: Freya Roberts, RN)1829 (Given - Provider: Samantha Dias, SHARYN) potassium chloride (KLOR-CON) ER tablet 40 mEq [...] flush documented in this encounter Care Teams Manager Planning Relationship Specialty Start Date End Date Eladio Lomas MD [address] [facility] [address] [place] [address] Medical Oncologist Hematology and Oncology 07/08/22 Breanna Crow PA-C [address] [facility] [address] [place] [address] Physician Tax Assessor Oncology 07/08/22 documented as of this encounter
--- OUTSIDE RECORDS SUMMARY | 2024-12-14 15:15 | XMS_ITS | Encounter Summary ---
Author Organization [employer] ([place], [place], [place], [place]) Address [address] [place] [address] Care Team Providers Care Products Mechanical Design Engineer Name Role Phone Eladio Lomas MD Unavailable Breanna Crow PA-C Unavailable [phone] Reason for Visit * Consultation (Routine) - Closed Specialty Diagnoses / Procedures Referred By Contac t Referred To Contact Cardiology Diagnoses Palpitations Procedures HOLTER [place] الع[place]ي [place] [address] [place] [address] [address] [place] [address] Phone: tel: fax: [facility] Electrophysiology [address] [place] [phone] Phone: tel: fax: Referral ID Status Reason Start Date Expiration Date Visits Re quested Visits Authorized [id number] Closed 12/14/2024 12/14/2025 1 1 Encounter Details Date Type Department Care Team (Late st Contact Info) Description 12/14/2024 3:15 PM EDT Clinical Support [facility] Electrophysiology [address] [place] [phone] Patricia Kapoor MA Palpitations Social History [...] you? Never 12/11/2024 How often does anyone, patrcik altamirano family and friends, insult or talk [...] Do you speak a language other than [place] at [facility]? No 12/11/2024 Do you want help with [...] Description 01/23/2025 11:00 AM EDT Office Visit [facility] Neurology - [address] [place] [phone] Matilda Arita APRN [address] [place] [address] 01/28/2025 9:45 AM EDT Office Visit [facility] Electrophysiology [address] [place] [phone] [place] [address] [place] [address] [address] [place] [address] documented as of this encounter Visit Diagnoses Diagnosis Palpitations documented in this encounter Care Teams Products Mechanical Design Engineer Relationship Specialty Start Date End Date Eladio Lomas MD [address] [facility] [address] [place] [address] Medical Oncologist Hematology and Oncology 07/08/22 Breanna Crow, PARebelC [address] [facility] [address] [place], [place] [phone] Physician Horticultural Specialty Grower Oncology 07/08/22 documented as of this encounter
--- OUTSIDE RECORDS SUMMARY | 2024-12-26 08:48 | XMS_ITS | Encounter Summary ---
Author Organization [employer] ([place], [place], [place], [place]) Address [address] [place] [address] Care Team Providers Care Hardwood Sawyer Name Role Phone Eladio Lomas MD Unavailable Breanna Crow PA-C Unavailable [phone] Encounter Details Date Type Department Care Team (Late st Contact Info) Description 01/01/2022 Transcribed Document [facility] [address] [place] [address] ProviderJailyn MD [address] [place] [address] Social History Tobacco Use Types [...] HU /Sex: 1950 Male Med Rec #: [id number] Physician: GARCIA WORKMAN MD-ORT Financial #: [id number] Pt. Type: O Room/Bed: [facility] Admit/Disch: 01/01/22 09:26:00 - Institution: E Main OR PACU Case Times Entry 1 In PACU I 01/01/22 11:50:00 Ready for PACU 01/01/22 12:38:00 Discharge Discharge from PACU 01/01/22 12:38:00 I Last Modified By: Lashay Liu RN 01/01/22 12:45:05 [facility] Main OR PACU Case Times Audit 01/01/22 12:45:05 Actuarial Science Teacher: SXPOWERS Modifier: SXPOWERS <+> 1 Ready for PACU Discharge <+> 1 Discharge from PACU I Finalized By: Lashay Liu, RN Document Signatures Signed By: Lashay Liu RN 01/01/22 12:[address] [facility] Conversion Chief Green Officer Cerner at 08/17/2022 5:57 PM CDT documented in this encounter Plan of Treatment Upcoming Encounters Date Type Department Care Team (Late st Contact Info) Description 01/23/2025 11:00 AM EDT Office Visit [facility] Neurology - [address] [phone] Matilda Arita APRN [address] [place] [phone] 01/28/2025 9:45 AM EDT Office Visit [facility] Electrophysiology [address] [place] [address] [place] [address] [place] [address] [address] [place] [address] documented as of this encounter Visit Diagnoses Not on filedocumented in this encounter Care Teams Hardwood Sawyer Relationship Specialty Start Date End Date Eladio Lomas MD [address] [facility] [address] [place], [place] [phone] Medical Oncologist Hematology and Oncology 07/08/22 Breanna Crow PA-C [address] [facility] [address] [place] [address] Physician Cut Pressman Oncology 07/08/22 documented as of this encounter
--- OUTSIDE RECORDS SUMMARY | 2024-12-26 08:48 | XMS_ITS | Encounter Summary ---
Author Organization [facility] Address [address] [phone] Care Team Providers Care Car Rental Sales Assistant Name Role Phone Per Patient, None Primary Care Provider Unavaila ble Encounter Details Date Type Department Care Team ([facility] st Contact Info) Description 10/08/2021 Lab Requisition [facility] [address] [place] [address] Maurice Power MD [facility] [place] [address] Unspecified lesions of oral mucosa [...] billing purposes only. 10/26/2021 7:22 AM EDT [facility] at 0722 EDT Case Report Surgical Pathology Report Case: [id number] Authorizing Provider: Maurice Power MD Collected: 10/08/2021 Ordering Location: [facility] Received: 10/08/2021 5759 Pathologist: Cindy Flores MD Specimen: [id number] 10/26/2021 7:22 AM EDT [facility] Tissue 10/08/2021 10/08/2021 4:5 9 PM EDT us Maurice Power MD LAB PATHOLOGY ORDERABLES Final Result [facility] [address] [place] [address] documented in this encounter Visit Diagnoses Diagnosis Unspecified lesions of oral mucosa documented in this encounter Care Teams Car Rental Sales Assistant Relationship Specialty Start Date End Date Per Patient, [place] [address] PCP - General 05/02/20 documented as of this encounter
--- OUTSIDE RECORDS SUMMARY | 2024-12-26 08:48 | XMS_ITS | Encounter Summary ---
Author Organization [employer] ([place], [place], [place], [place]) Address [address] [place] [address] Care Team Providers Care Airborne Mission Systems Name Role Phone Eladio Lomas MD Unavailable Breanna Crow PA-C Unavailable [phone] Encounter Details Date Type Department Care Team (Late st Contact Info) Description 01/01/2022 Transcribed Document [facility] [place] Family Medicine [address] [place] [address] ProviderJailyn MD [address] [place] [address] Social History Tobacco Use Types [...] any clubs o r organizations such as zoroastrianism groups, unions, fraternal or athletic groups, or [...] Date Ata rded Speak language other than Ukrainian at home Not on file 05/13/2023 Want [...] HU /Sex: 1950 Male Med Rec #: [id number] Physician: GARCIA WORKMAN MD-ORT Financial #: [id number] Pt. Type: O Room/Bed: [facility] Admit/Disch: 01/01/22 09:26:00 - [place] [facility] [place] [facility] [place] PreOp Case Times Entry 1 In Preop 01/01/22 07:55:00 Ready for Holding n/a Room Patient Ready for 01/01/22 10:10:00 Surgery Patient Out of Preop 01/01/22 10:37:00 Patient Out of n/a Holding Room Last Modified By: Ansley Lane RN 01/01/22 10:47:06 [place] PreOp Case Times Audit 01/01/22 10:47:06 Human Resources Coordinator: [id number] Modifier: [id number] <+> 1 Patient Out of Preop Finalized By: Ansley Lane, RN Document Signatures Signed By: Ansley Lane RN 01/01/22 10:47 Electronically signed by Huy [facility] Conversion Oil Spraying Machine Operator Cerner at 08/17/2022 6:02 PM CDT documented in this encounter Plan of Treatment Upcoming Encounters Date Type Department Care Team (Late st Contact Info) Description 01/23/2025 11:00 AM EDT Office Visit [facility] Neurology - [address] [address] Matilda Arita APRN [address] [place] [phone] 01/28/2025 9:45 AM EDT Office Visit [facility] Electrophysiology [address] [place] [address] [place] [address] [place] [address] [address] [place] [address] documented as of this encounter Visit Diagnoses Not on filedocumented in this encounter Care Teams Airborne Mission Systems Relationship Specialty Start Date End Date Eladio Lomas MD [address] [facility] [address] [place], [place] [id number] Medical Oncologist Hematology and Oncology 07/08/22 Breanna Crow PA-C [address] [facility] [address] [place] [address] Physician Recorder Helper Seismograph Oncology 07/08/22 documented as of this encounter
--- OUTSIDE RECORDS SUMMARY | 2024-12-26 08:48 | XMS_ITS | Encounter Summary ---
Author Organization [employer] ([place], [place], [place], [place]) Address [address] [place] [address] Care Team Providers Care Shirt Ironer Supervisor Name Role Phone Eladio Lomas MD Unavailable Breanna Crow PA-C Unavailable [phone] Encounter Details Date Type Department Care Team (Late st Contact Info) Description 01/01/2022 Transcribed Document [facility] [place] [address] [place] [address] ProviderJailyn MD [address] [place] [address] Social History Tobacco Use Types [...] currently between chart, band and paperwork. Ansley Lane, RN - 01/01/2022 10:44 EDT Electronically signed by [facility] Conversion Tonal Regulator Cerner at 08/17/2022 6:06 PM CDT documented in this encounter Plan of Treatment Upcoming Encounters Date Type Department Care Team (Late st Contact Info) Description 01/23/2025 11:00 AM EDT Office Visit [facility] Neurology - [facility] [address] [address] Matilda Arita APRN [address] [place] [address] [address] [place] [address] 01/28/2025 9:45 AM EDT Office Visit [facility] Electrophysiology [address] [place] [phone] Phuong Lewis MD [address] [facility] [address] [place] [address] documented as of this encounter Visit Diagnoses Not on filedocumented in this encounter Care Teams Shirt Ironer Supervisor Relationship Specialty Start Date End Date Eladio Lomas MD 1210 [facility] [address] [place] [address] Medical Oncologist Hematology and Oncology 07/08/22 Breanna Crow, PARebelC [address] [facility] [address] [place], [place] [id number] Physician Export Documents Clerk Oncology 07/08/22 documented as of this encounter
--- OUTSIDE RECORDS SUMMARY | 2024-12-26 08:48 | XMS_ITS | Clinical Summary ---
Author Organization [facility] Address [address] [place] [address] Care Team Providers Care Restaurant Cashier Name Role Phone Per Patient, None Primary Care Provider Unavaila ble Social History Tobacco Use Types Packs/Day Years Used Date Smoking Tobacco: Never Assessed Sex and Gender Information Value Date Recorded Sex Assigned at Not on file Legal Sex Male 6:01 PM EDT Gender Identity Not on file Sexual Orientation Not on file Last Filed Vital Signs Vital Sign Reading Time Taken Comments Blood Pressure 118/58 12/11/2024 11:33 AM EDT Pulse - - Temperature 38.2 C (100.7 F) 12/11/2024 11:33 AM EDT Respiratory Rate 16 12/11/2024 11:33 AM EDT Oxygen Saturation 96% 12/11/2024 11:33 AM EDT RA Inhaled Oxygen Concentration - - Weight - - Height - - Body Mass Index - - Plan of Treatment Health Maintenance Due Date [...] or (1 - 1-dose 75+ series) 01/05/2023 [id number] Vaccine (4 - 2024-25 season) 2024 07/25/2020, 06/24/2020, 06/11/2020 UKY-Influenza Vaccine [...] this topic Insurance [employer] MEDICARE Care Teams Restaurant Cashier Relationship Specialty Start Date End Date Per Patient, [place] [address] PCP - General 05/02/20
--- OUTSIDE RECORDS SUMMARY | 2024-12-26 08:49 | XMS_ITS | Encounter Summary ---
Author Organization [email or web address] ([place], [place], [place]) Address [address] [place] [address] Care Team Providers Care Dinkey Operator Slag Name Role Phone Eladio Lomas MD Unavailable Breanna Crow PA-C Unavailable [phone] Encounter Details Date Type Department Care Team (Late st Contact Info) Description 10/15/2021 Transcribed Document [facility] [place] Family Medicine [address] [place] [address] ProviderJailyn MD [address] [place] [address] Social History Tobacco Use Types [...] ROM : WFL Left UE Strength : [facility] PHYSICAL THERAPIST NON-EXEMPT - [...] PHYSICAL THERAPIST NON-EXEMPT - 10/17/2021 10:13 EDT Engineering Documentation Specialist Goals Transfer LTG Grid Goal #1 [...] Description 01/23/2025 11:00 AM EDT Office Visit [facility] Neurology - [address] [facility] [address] [place] [address] Matilda Arita, ESPERANZA [address] [place] [address] 01/28/2025 9:45 AM EDT Office Visit [facility] Electrophysiology [address] [place] [address] [place] [address] [place] [address] [address] [place] [phone] documented as of this encounter Visit Diagnoses Not on filedocumented in this encounter Care Teams Dinkey Operator Slag Relationship Specialty Start Date End Date Eladio Lomas MD 12[address] [facility] [address] [place] [address] Medical Oncologist Hematology and Oncology 07/08/22 Breanna Crow PARebelC [address] [facility] [address] [place] [address] Physician Repeater Chief Oncology 07/08/22 documented as of this encounter
--- OUTSIDE RECORDS SUMMARY | 2024-12-26 08:49 | XMS_ITS | Encounter Summary ---
Author Organization [employer] ([place], [place], [place], [place]) Address [address] [place] [address] Care Team Providers Care Pattern Drafter Name Role Phone Eladio Lomas MD Unavailable Breanna Crow PA-C Unavailable [phone] Encounter Details Date Type Department Care Team (Late st Contact Info) Description 01/01/2022 Transcribed Document [facility] [place] [address] [place] [address] ProviderJailyn MD [address] [place] [address] Social History Tobacco Use Types [...] Pt. Name: CORBIN HU /Sex: 1950 Male [facility] Rec #: [id number] Physician: GARCIA WORKMAN MD-ORT Financial #: [id number] Pt. Type: O Room/Bed: [facility] Admit/Disch: 01/01/22 09:26:00 - [place] [facility] [place]Op Case Attendance Entry 1 Entry 2 Entry 3 Case Attendee GARCIA WORKMAN MD-ORT MCDONALD, LEAH BETH, Bowling, Jachob, CRNA [email or web address] Role Performed Surgeon/Proceduralist, DISTRIBUTION DRIVER/Nurse Loading Unit Operator DISTRIBUTION DRIVER/Nurse Loading Unit Operator First Time In 01/01/22 10:42:00 01/01/22 10:42:00 01/01/22 10:42:00 Time Out 01/01/22 11:49:00 01/01/22 11:49:00 01/01/22 11:49:00 Procedure Lumbar Laminectomy Lumbar Laminectomy Lumbar Laminectomy Other Attendee Superficial Wound Closed By: Last Modified By: SAMMIE PEREZ RN LONGSWORTH, GARY, RN LONGSWORTH, GARY, RN 01/01/22 11:49:14 01/01/22 11:49:14 01/01/22 11:49:14 Entry 4 Entry 5 Entry 6 Case Attendee SAMMIE PEREZ, Lea Charles, RN Paulina Joseph, Highway Patrol Commander Role Performed Nurse Transition, First Nurse Transition, Second Scrub, First Time In 01/01/22 10:42:00 01/01/22 10:42:00 01/01/22 10:42:00 Time Out 01/01/22 11:49:00 01/01/22 11:49:00 01/01/22 11:49:00 Procedure Lumbar Laminectomy Lumbar Laminectomy Lumbar Laminectomy Other Attendee Superficial Wound Closed By: Last Modified By: SAMMIE PEREZ RN LONGSWORTH, GARY, SAMMIE VARNER RN 01/01/22 11:49:14 01/01/22 11:49:14 01/01/22 11:49:14 Entry 7 Entry 8 Entry 9 Case Attendee Layla Padilla, CHRISTOFER ARDON, Masha Queen, Risk Prevention Engineer Role Performed Scrub, Second Physician family law legal assistant Clinique Counter Manager Time In 01/01/22 10:42:00 01/01/22 10:42:00 01/01/22 10:42:00 Time Out 01/01/22 11:49:00 01/01/22 11:49:00 01/01/22 11:49:00 Procedure Lumbar Laminectomy Lumbar Laminectomy Lumbar Laminectomy Other Attendee Superficial Wound Closed By: Last Modified By: SAMMIE PEREZ, SAMMIE VARNER, RN SAMMIE PEREZ, SHARYN 01/01/22 11:49:14 01/01/22 11:49:14 01/01/22 11:49:14 [facility] IntraOp Case Attendance Audit 01/01/22 11:49:14 Collection Support Specialist: SAM Modifier: LONGGA 1 <+> Time [...] 9 <*> Procedure Lumbar Laminectomy 01/01/22 10:34:07 Collection Support Specialist: SAM Modifier: LONGGA <+> 1 Procedure [...] [facility] IntraOp Case Times Audit 01/01/22 11:49:13 Collection Support Specialist: LONGGA Modifier: LONGGA <+> 1 Out Room Time <+> 1 Stop Time <+> 1 Stop Time 01/01/22 11:07:50 Collection Support Specialist: LONGGA Modifier: LONGGA <+> 1 Start [...] 11:10:17 [facility] IntraOp Cautery Audit 01/01/22 11:10:35 Collection Support Specialist: LONGGA Modifier: LONGGA 1 <*> Grounding [...] RN 01/01/22 10:31:33 [facility] IntraOp General Case Junior Software Developer 1 Case Information OR OR 01 [facility] Case Level 1 Room Verified Yes Wound Class 1 - Clean Specialty Neurosurgery Anesthesia Type General ASA Class 2 Diagnosis Preop Diagnosis STENOSIS L4-5 Postop Same As Preop Yes Postop Diagnosis STENOSIS L4-5 Wound Class Definitions Last Modified By: SAMMIE PEREZ RN 01/01/22 10:47:20 [facility] IntraOp General Case Data Audit 01/01/22 10:47:20 Collection Support Specialist: [email or web address] Modifier: LONGGA 1 <*> OR [...] 1ml epinephrine 1:200,000 topical kit injection - [id number] 30ml vial - [id number] (recombinant) - [id number] Combo Med List Time Administered Route of [...] [facility] IntraOp Medication Admin Audit 01/01/22 11:28:39 Collection Support Specialist: LONGGA Modifier: LONGGA <+> 3 Medication/Irrigant [...] [facility] IntraOp Surgical Procedures Audit 01/01/22 11:41:50 Collection Support Specialist: LONGGA Modifier: LONGGA 1 <*> Procedure Lumbar Laminectomy 1 <+> Stop 01/01/22 11:38:39 Collection Support Specialist: LONGGA Modifier: LONGGA 1 <*> Procedure Lumbar Laminectomy 1 <*> Additional Procedure Description RIGHT L4-5 LAMINECTOMY, DISCECTOMY 01/01/22 11:07:55 Collection Support Specialist: LONGGA Modifier: LONGGA <+> 1 Start [facility] IntraOp Temp Regulation Devices Entry 1 Temp Regulation Temperature Warm blankets Regulation Device Temperature Upper body Regulation Site Temperature LARRY GAMINO, Regulation Device DISTRIBUTION DRIVER Applied by Last Modified By: SAMMIE PEREZ [...] Modified By: SAMMIE PEREZ RN 01/01/22 11:07:43 [facility] IntraOp X-Ray and Images Entry 1 X-Ray/Imaging Type Fluoroscopy Fluoroscopy Type C-Arm Site BACK Bleach Packer Name Masha Sanders, Risk Prevention Engineer Protective Devices Yes Used Last Modified By: SAMMIE PEREZ RN 01/01/22 11:13:53 Case Comments <None> Finalized By: SAMMIE PEREZ, RN Document Signatures Signed By: SAMMIE PEREZ RN 01/01/22 11:50 SAMMIE PEREZ RN 01/01/22 12:22 Unfinalized History Date/Time Username Reason for Unfinalizing Freetext Reason for Unfinalizing 01/01/22 12:21 SAM Correct Documentation Electronically signed by Huy [facility] Conversion Collection Advisor Cerner at 08/17/2022 6:06 PM CDT documented in this encounter Plan of Treatment Upcoming Encounters Date Type Department Care Team (Late st Contact Info) Description 01/23/2025 11:00 AM EDT Office Visit [facility] Neurology - [address] [facility] [address] [place] [address] Matilda Arita APRN [address] [facility] [address] [place] [address] 01/28/2025 9:45 AM EDT Office Visit [facility] Electrophysiology [address] [place] [address] Phuong Lewis MD 1401 [facility] [address] [place] [address] documented as of this encounter Visit Diagnoses Not on filedocumented in this encounter Care Teams Pattern Drafter Relationship Specialty Start Date End Date Eladio Lomas MD 1210 [facility] [address] [place] [address] Medical Oncologist Hematology and Oncology 07/08/22 Breanna Crow PA-C [address] [place] [phone] Physician Sports Teacher Oncology 07/08/22 documented as of this encounter
--- OUTSIDE RECORDS SUMMARY | 2024-12-26 08:49 | XMS_ITS | Referral Summary ---
Author Organization [employer] ([place], [place], [place], [place]) Address [address] [place] [address] Care Team Providers Care Vine Pruner Name Role Phone Eladio Lomas MD Unavailable Breanna Crow PA-C Unavailable [phone] Encounters Date Type Department Care Team Description 12/18/2024 Telephone [facility] [place] [address] [address] [place] [address] Phuong Lewis MD Hospital Follow Up 12/14/2024 3:15 PM EDT Clinical Support [facility] Electrophysiology [address] [place] [address] Patricia Kapoor MA Palpitations 12/14/2024 Orders Only [facility] Electrophysiology [address] [place] [address] Covert, Dorothy MALANIS Palpitations (Primary Dx) 12/11/2024 4:55 PM EDT - 12/14/2024 2:40 PM EDT Hospital Encounter [facility] [place] [address] Inter[address] [place] [address] Pietro Toure MD Hughes, Isaac, PA-C Galdass, Mariann, MD Discharge Disposition: Home or Self Care from Last 3 Months Allergies Active Allergy Reactions Criticality Noted Date Comments Iodinated Contrast Media 03/24/2022 Medications multivitamin capsule Take 1 capsule by mouth daily. Active valACYclovir (VALTREX) 1000 MG tablet Take 1 tablet (1,000 mg total) by mouth daily. Active fluticasone propionate (FLONASE) 50 mcg/actuation nasal spray Administer 2 sprays into each nostril daily as needed for rhinitis. Active levocetirizin e (XYZAL) 5 MG tablet Take 1 tablet (5 mg total) by mouth nightly. Active predniSONE (DELTASONE) 10 MG tablet Take 1 tablet (10 mg total) by mouth daily with breakfast. Active acalabrutinib (CALQUENCE) 100 mg tablet Take 1 tablet (100 mg total) by mouth every 12 (twelve) hours Restart based on recommendations per your Oncologist. Active aspirin 81 MG EC tablet Take 1 tablet (81 mg total) by mouth daily for 30 days. 30 tablet 1 2024 Active ferrous gluconate 324 mg (37.5 mg iron) tab Take 1 tablet (324 mg total) by mouth daily for 30 days. 30 tablet 2 2024 Active gabapentin (NEURONTIN) 300 MG capsule Take 1 capsule (300 mg total) by mouth nightly for 30 days. Max Daily Amount: 300 mg 30 capsule 2024 Active valACYclovir (VALTREX) 1000 MG tablet 1 po daily. 90 tablet 3 023 2024 Discontinued acalabrutinib (CALQUENCE) 100 mg tablet Take 1 tablet (100 mg total) by mouth every 12 (twelve) hours. 2024 Discontinued cefdinir (OMNICEF) 300 mg capsule Take 1 capsule (300 mg total) by mouth 2 (two) times daily for 4 days. 8 capsule 025 2024 doxycycline (VIBRAMYCIN) 100 MG capsule Take 1 capsule (100 mg total) by mouth every 12 (twelve) hours for 5 days Next dose is this evening. 10 capsule 025 2024 Saccharomyces boulardii (FLORASTOR) 250 mg capsule Take 1 capsule (250 mg total) by mouth 2 (two) times daily for 5 days Continue probiotic while on the antibiotics. 10 capsule 025 2024 Active Problems Problem Noted Date Diagnosed Date Weakness 12/11/2024 Pneumonia 12/11/2024 Hyponatremia 12/11/2024 Hypercoagulable state 04/16/2023 CLL (chronic lymphocytic leukemia) [...] living situation today? I have a [facility] place to live 12/11/2024 Think about [...] Do you speak a language other than [place] at [facility]? No 12/11/2024 Do you want help [...] Mass Index 22.5 12/12/2024 8:24 AM EDT Plan of Treatment Upcoming Encounters Date Type Department Care Team (Late st Contact Info) Description 01/23/2025 11:00 AM EDT Office Visit [facility] Neurology - [address] [place] [address] Matilda Arita APRN [address] [place] [address] 01/28/2025 9:45 AM EDT Office Visit [facility] Electrophysiology [address] [place] [address] Phuong Lewis MD [address] [facility] [address] [place] [address] Procedures Procedure Name Priority Date/Time Associated Diagnosis Comments MANUAL DIFFERENTIAL Routine 12/14/2024 5 :35 AM EDT BASIC METABOLIC PANEL Routine 12/14/2024 5:35 AM EDT CBC W/ AUTO DIFF Routine 12/14/2024 5:35 AM EDT SEDIMENTATION RATE Routine 12/13/2024 6: 09 PM EDT ECHO COMPLETE (DOPPLER / COLOR) WO CONTRAST Routine 12/13/2024 1:08 PM EDT US DOPPLER VENOUS LEGS BILATERAL Routine 12/13/2024 10:00 AM EDT US CAROTID BLOOD FLOW BILATERAL Routine 12/13/2024 10:00 AM EDT C-REACTIVE PROTEIN Add-On 12/13/2024 5: 12 AM EDT MAGNESIUM Add-On 12/13/2024 5:12 AM EDT LIPID PANEL Add-On 12/13/2024 5:12 AM EDT MANUAL DIFFERENTIAL Routine 12/13/2024 5 :12 AM EDT VITAMIN D, 25-HYDROXY Routine 12/13/2024 5:12 AM EDT TSH Routine 12/13/2024 5:12 AM EDT BASIC METABOLIC PANEL Routine 12/13/2024 5:12 AM EDT CBC W/ AUTO DIFF Routine 12/13/2024 5:12 AM EDT MR BRAIN WITHOUT IV CONTRAST Routine 12/12/2024 6:43 PM EDT MR LUMBAR SPINE WITHOUT IV CONTRAST Routine 12/12/2024 6:29 PM EDT MR THORACIC SPINE WITHOUT IV CONTRAST Routine 12/12/2024 6:16 PM EDT MR CERVICAL SPINE WITHOUT IV CONTRAST Routine 12/12/2024 6:10 PM EDT LEGIONELLA ANTIGEN, URINE Routine 12/12/2024 11:48 AM EDT STREP PNEUMONIAE URINE ANTIGEN Routine 12/12/2024 11:48 AM EDT RESPIRATORY PANEL Routine 12/12/2024 10: 27 AM EDT MRSA SCREEN Routine 12/12/2024 10:27 AM EDT XR CHEST AP PORTABLE Routine 12/12/2024 9:10 AM EDT VITAMIN B12 Add-On 12/12/2024 3:51 AM EDT FERRITIN Add-On 12/12/2024 3:51 AM EDT IRON AND TIBC Add-On 12/12/2024 3:51 AM EDT BASIC METABOLIC PANEL Routine 12/12/2024 3:51 AM EDT CBC HEMOGRAM (SJ-BKR) Routine 12/12/2024 3:51 AM EDT from Last 3 Months Results * (ABNORMAL) CBC with automated diff (12/14/2024 5:35 AM EDT) Only the most recent of2 resultswithin the time period is included. WBC 22.2(H) 4.2 - 9.1 K/ L 12/14/2024 6:17 AM EDT [facility] RBC 2.63(L) 4.63 - 6.08 M/ L 12/14/2024 6:17 AM EDT [facility] Hemoglobin 8.2(L) 13.7 - 17.5 GM/DL 12/14/2024 6:17 AM EDT [facility] Hematocrit 25.9(L) 40.1 - 51.0 % 12/14/2024 6:17 AM EDT [facility] MCV 99(H) 79 - 92 fL 12/14/2024 6:17 AM EDT [facility] MCH 31.2 25.7 - 32.2 pg 12/14/2024 6:17 AM EDT [facility] MCHC 31.7(L) 32.3 - 36.5 GM/DL 12/14/2024 6:[facility] RDW 15.0(H) 11.6 - 14.4 % 12/14/2024 6:17 AM EDT [facility] Platelets 177 140 - 375 K/CU MM 12/14/2024 6:17 AM EDT [facility] MPV 9.9 9.4 - 12.4 fL 12/14/2024 6:17 AM EDT [facility] NRBC Absolute <0.01 0 - 0.012 K/ul 12/14/2024 6:17 AM [facility] Blood Venipuncture / Unknown 12/14/2024 5:35 AM EDT 12/14/2024 6:05 AM EDT [facility] - 12/14/2024 6:17 AM EDT When [...] MD LAB BLOOD ORDERABLES Final Res ult [facility] [address] [phone] * (ABNORMAL) Manual Differential (12/14/2024 5:35 AM EDT) Only the most recent of2 resultswithin the time period is included. Total Counted 100 12/14/2024 8:02 AM EDT [facility] % Neutros (manual) 13(L) 50 - 65 % 12/14/2024 8:02 AM EDT [facility] % Lymphs (manual) 86(H) 24 - 44 % 025 8:02 AM EDT [facility] % Monos (manual) 1(L) 4 - 5 % 12/15/19 25 8:02 AM EDT [facility] RBC Morphology abnormal(A) Normal 8:02 AM EDT [facility] Platelet Estimate Adequate Adequate 025 8:02 AM EDT [facility] Anisocytosis 1+ 12/14/2024 8:02 AM EDT [facility] Hypochromia 1+ 12/14/2024 8:02 AM EDT [facility] Polychromasia 1+ 12/14/2024 8:02 AM EDT [facility] Smudge Cells Present 12/14/2024 8:02 AM EDT [facility] Macrocytes 1+ 12/14/2024 8:02 AM EDT [facility] ANC# 2.89 K/ L 12/14/2024 8:02 AM EDT [facility] Blood Venipuncture / Unknown 12/14/2024 5:35 AM EDT 12/14/2024 6:05 AM EDT us Matt Vargas MD LAB BLOOD ORDERABLES Final Res ult [facility] [address] [place] [address], [facility] [phone] * (ABNORMAL) Basic Metabolic Panel (12/14/2024 5:35 AM EDT) Only the most recent of3 resultswithin the time period is included. Sodium 142 136 - 145 meq/L 12/14/2024 6:48 AM EDT [facility] Potassium 3.9 3.4 - 5.1 meq/L 12/14/2024 6:48 AM EDT [facility] CO2 25 22 - 29 meq/L 12/14/2024 6:48 AM EDT [facility] Chloride 108 98 - 112 meq/L 12/14/2024 6:48 AM EDT [facility] Glucose 120(H) 82 - 115 mg/dL 12/14/2024 6:48 AM EDT [facility] BUN 14.4 8.4 - 25.7 mg/dL 12/14/2024 6:48 AM EDT [facility] Creatinine 0.68(L) 0.72 - 1.25 mg/dL 12/14/2024 6:48 AM EDT [facility] BUN/Creatinine 21(H) 8 - 20 12/14/2024 6:48 AM EDT [facility] Calcium 7.7(L) 8.4 - 10.2 mg/dL 12/14/2024 6:48 AM EDT [facility] Anion Gap 13(H) 4 - 12 12/14/2024 6:48 AM EDT [facility] eGFR (mL/min/1.73m2) 96 >=60 mL/min/1.7 3m2 12/14/2024 6:48 AM EDT [facility] Osmolality Calc 284.9 mOsm/kg 6:48 AM EDT [facility] Blood Venipuncture / Unknown 12/14/2024 5:35 AM EDT 12/14/2024 6:18 AM EDT us Maria Guadalupe Lopez MD LAB BLOOD ORDERABLES Final Re sult [facility] [address] [phone] * Sedimentation rate (12/13/2024 6:09 PM EDT) Sed Rate 10 0 - 20 mm/HR 12/13/2024 6:24 PM EDT [facility] Blood Venipuncture / Unknown 12/13/2024 6:09 PM EDT 12/13/2024 6:20 PM EDT us Jaron Amin MD LAB BLOOD ORDERABLES Final Resul t Performing Organization Address [facility] Co de Phone Number [facility] [address] [phone] * ECHO COMPLETE (DOPPLER / COLOR) WO CONTRAST (12/13/2024 1:08 PM EDT) Anatomical Region Laterality Modality Heart Vascular Ultraso und 12/13/2024 12:1 1 PM EDT Narrative 12/13/2024 11:34 PM EDT TRANSTHORACIC ECHOCARDIOGRAPHY REPORT Demographics Patient Name: SANDIE KOROMA : 1950 Age: 74 year(s) Corporate ID Number: [id number] Gender Male Tape Transferrer: Jillian Souza Height: 65 inches [facility] Referring Physician: MARIA GUADALUPE LOPEZ MD Weight: [...] 1.15 m/s E/A ratio: 1.42 m/s Volume [id number] LV length: 8.99 cm ml Volume lmgcaxdi07.92 ml LVOT diameter: 2.03 cm Normal sized [...] Valve TR velocity: 3 m/s TR gradient: 35.86992 mmHg Estimated RAP: 8 mmHg RVSP: 43.96 [...] 1950 Age: 74 year(s) Corporate ID Number: [id number] Gender Male Tape Transferrer: Jillian Souza Height: 65 inches [facility] Referring Physician: MARIA GUADALUPE LOPEZ MD Weight: 139 pounds Interpreting BEBETO WALTER MD BMI: 23.13 kg/m^2 Physician: Date of Service: 12/13/2024 Blood Pressure: 118/57 mmHg Room Number: 405 Type of Study: TTE procedure: ECHO COMPLETE (DOPPLER / COLOR) W OR WO CONTRAST. Patient Status: Routine IP Study Location: [facility] Quality: Adequate visualization History/Tech Notes: Indication: [...] .52 LV length: 8.99 cm ml Volume .92 [...] Valve TR velocity: 3 m/s TR gradient: 35.12398 mmHg Estimated RAP: 8 mmHg RVSP: 43.96 [...] Demographics Patient Name SANDIE SMITH Age 74 [place] Patient Number [id number] Gender Male Race Ethnicity Corporate ID [id number] Height 65 Date of 1950 Weight 139 Accession Number [id number] BSA 1.69 m^2 Room Number 405 BMI 23.13 kg/m^2 Referring Alyson Ferguson MD Interpreting BEBETO WALTER MD Physician Physician Tape Transferrer Rosy Guido, [facility] Procedure Type of Study: Veins: Venous Duplex, [...] SANDIE SMITH Age 74 [place] Patient Number [id number] Gender Male Race Ethnicity Corporate ID [id number] Height 65 Date of 1950 Weight 139 Accession Number [id number] BSA 1.69 m^2 Room Number 405 BMI 23.13kg/m^2 Referring Alyson Ferguson MD Interpreting BEBETO PERALTA Physician Physician Tape Transferrer Rosy Guido RVT Procedure Type of Study: [...] Demographics Patient Name SANDIE SMITH Age 74 [place] Patient Number [id number] Gender Male Race Ethnicity Corporate ID [id number] Height 65 Date of 1950 Weight 139 Accession Number [id number] BSA 1.69 m^2 Room Number 405 BMI 23.13 kg/m^2 Referring MARIA GUADALUPE LOPEZ MD Interpreting BEBETO WALTER MD Physician Physician Tape Transferrer Rosy Guido, T Procedure Type of Study: [...] SANDIE SMITH Age 74 [place] Patient Number [id number] Gender Male Race Ethnicity Corporate ID [id number] Height 65 Date of 1950 Weight 139 Accession Number [id number] BSA 1.69 m^2 Room Number 405 BMI 23.13kg/m^2 Referring MARIA GUADALUPE LOPEZ MD Interpreting BEBETO PERALTA Physician Physician Tape Transferrer Rosy Guido RVT Procedure Type of Study: [...] - 5.0 mg/L 12/13/2024 6:10 PM EDT [facility] Blood Venipuncture / Unknown 12/13/2024 5:12 AM EDT 12/13/2024 5:24 AM EDT Jaron Amin MD LAB BLOOD ORDERABLES Final Resul t [facility] [address] [phone] * Vitamin D, 25-Hydroxy (12/13/2024 5:12 AM EDT) [facility] Vitamin D 25-Hydroxy 31.33 30 - 80 ng/mL 12/13/2024 6:13 AM EDT [facility] Blood Venipuncture / Unknown 12/13/2024 5:12 AM EDT 12/13/2024 5:24 AM EDT Maria Guadalupe Lopez MD LAB BLOOD ORDERABLES Final Re sult Performing Organization Address City/[facility]/ZIP Co de Phone Number [facility] [address] [phone] * TSH (12/13/2024 5:12 AM EDT) [facility] TSH 2.613 0.350 - 4.940 uIU/mL 12/13/2024 6:07 AM EDT [facility] Blood Venipuncture / Unknown 12/13/2024 5:12 AM EDT 12/13/2024 5:24 AM EDT Maria Guadalupe Lopez MD LAB BLOOD ORDERABLES Final Re sult Performing Organization Address City/[facility]/ZIP Co de Phone Number [facility] [address] [phone] * Magnesium (12/13/2024 5:12 AM EDT) Magnesium 2.2 1.6 - 2.6 mg/dL 12/13/2024 3:16 PM EDT [facility] Blood Venipuncture / Unknown 12/13/2024 5:12 AM EDT 12/13/2024 5:24 AM EDT us Isaacsesyeda Lewis MD LAB BLOOD ORDERABLES Final Resu lt [facility] [address] [phone] * (ABNORMAL) Lipid panel (12/13/2024 5:12 AM EDT) Triglycerides 108 <=149 mg/dL 12/13/2024 8:20 AM EDT [facility] Comment: Normal: < 150 mg/dL Borderline High: 150 to 199 mg/dL High: 200 to 499 mg/dL Very High: >/= 500 mg/dL Cholesterol 81(L) 100 - 199 mg/dL 12/13/2024 8:20 AM EDT [facility] Comment: Child: Desirable: < 170 mg/dL Borderline: 170 to 199 mg/dL High: >/= 200 mg/dL Adult: Desirable: < 200 mg/dL Borderline: 200 to 239 mg/dL High: >/= 240 mg/dL HDL Cholesterol 12 See Comment mg/dL 12/13/2024 8:20 AM EDT [facility] Comment: Major risk factor for heart disease: < 40 mg/dL Negative risk factor for heart disease: >/= 60 mg/dL LDL Cholesterol, Calculated 47 0 - 100 mg/dL 12/13/2024 8:20 AM EDT [facility] Comment: Unable to calculate Optimal: < 100 mg/dL Near or above optimal: 100 to 129 mg/dL Borderline high: 130 to 159 mg/dL High: 160 to 189 mg/dL Very high: >/= 190 mg/dL Based on AHA/NCEP Guidelines LDl/HDL Ratio 4 0 - 4 12/13/2024 8:20 AM EDT [facility] Comment:Unable to calculate. Cholesterol/HDL ratio 6.8(H) 0.0 - 5.0 mg/dL 12/13/2024 8:20 AM EDT [facility] VLDL Cholesterol 21.6 5 - 40 mg/dL 12/13/2024 8:20 AM EDT [facility] Comment:Unable to calculate Blood Venipuncture / Unknown 12/13/2024 5:12 AM EDT 12/13/2024 5:24 AM EDT us Maria Guadalupe Lopez MD LAB BLOOD ORDERABLES Final Re sult [facility] [address] [phone] * MR Brain Without IV Contrast (12/12/2024 [...] Images reviewed, interpreted, and dictated by Haider Bnod MD us Aneudy Fitch PA-C G MRI ORDERABLES Final Resul t * MR [...] IMG MRI ORDERABLES Final Resu lt * Strep pneumoniae urine antigen (12/12/2024 11:48 AM EDT) Strep pneumoniae Antigen Presumptive negative for pneumococcal pneumonia - see comment Presumptive negative for pneumococcal pneumonia- see comment 12/12/2024 12:09 PM EDT [facility] Urine URINE / Unknown 12/12/2024 1 1:48 AM EDT 12/12/2024 11:48 AM EDT Narrative [facility] - 12/12/2024 12:09 PM EDT A presumptive negative result suggests no current or recent pneumococcal infection. Infection due to S. pneumoniae cannot be ruled out since the antigen present in the specimen may be below the detection limit of the test. us Maria Guadalupe Lopez MD MICROBIOLOGY - GENERAL ORDERA BLES Final Result [facility] 1 [place] [address], [facility] [phone] * Legionella antigen, urine (12/12/2024 11:48 AM EDT) Legionella Urine Antigen Presumptive negative for L. pneumophila serogroup 1 antigen in urine- see comment Presumptive negative for L. pneumophila serogroup 1 antigen in urine- see comment 12/12/2024 12:08 PM EDT [facility] Urine 12/12/2024 11:4 8 AM EDT 12/12/2024 11:48 AM EDT Narrative [facility] - 12/12/2024 12:08 PM EDT Presumptive [...] URINE ORDERABLES Final Result Performing Organization Address City/State/[facility] Co de Phone Number [facility] [address] [place] [address] * Respiratory Panel (12/12/2024 10:27 AM EDT) Pathologist [facility] ADENOVIRUS Not detected Not detected 12/12/2024 11:25 AM EDT [facility] CORONAVIRUS 229E Not detected Not detected 12/12/2024 11:25 AM EDT [facility] CORONAVIRUS HKU1 Not detected Not detected 12/12/2024 11:25 AM EDT [facility] CORONAVIRUS NL63 Not detected Not detected 12/12/2024 11:25 AM EDT [facility] CORONAVIRUS OC43 Not detected Not detected 12/12/2024 11:25 AM EDT [facility] SARS-COV2/RT-PCR Not Detected Not Detected 12/12/2024 11:25 AM EDT [facility] HUMAN METAPNEUMOVIRUS Not detected Not detected 12/12/2024 11:25 AM EDT [facility] HUMAN RHINOVIRUS/ENTEROV IRUS Not detected Not detected 12/12/2024 11:25 AM EDT [facility] INFLUENZA A Not detected Not detected 12/12/2024 11:25 AM EDT [facility] INFLUENZA B Not detected Not detected 12/12/2024 11:25 AM EDT [facility] PARAINFLUENZA VIRUS 1 Not detected Not detected 12/12/2024 11:25 AM EDT [facility] PARAINFLUENZA VIRUS 2 Not detected Not detected 12/12/2024 11:25 AM EDT [facility] PARAINFLUENZA VIRUS 3 Not detected Not detected 12/12/2024 11:25 AM EDT [facility] PARAINFLUENZA VIRUS 4 Not detected Not detected 12/12/2024 11:25 AM EDT [facility] RESPIRATORY SYNCYTIAL VIRUS Not detected Not detected 12/12/2024 11:25 AM EDT [facility] BORDETELLA PARAPERTUSSIS Not detected Not detected 12/12/2024 11:25 AM EDT [facility] BORDETELLA PERTUSSIS Not detected Not detected 12/12/2024 11:25 AM EDT [facility] CHLAMYDIA PNEUMONIAE Not detected Not detected 12/12/2024 11:25 AM EDT [facility] MYCOPLASMA PNEUMONIAE Not detected Not detected 12/12/2024 11:25 AM EDT [facility] Nasopharyngeal NASOPHARYNGEAL SWAB / Unknown 12/12/2024 10:27 AM EDT 12/12/2024 10:28 AM EDT [facility] - 12/12/2024 11:25 AM EDT Testing was performed with RT-PCR methodology using the Parudi Respiratory Panel 2.1 which has FDA De [...] decisions. This sample was tested at the [facility] using the [employer] FilmArray Respiratory Panel. It is FDA cleared and has been verified and approved by the [facility] for clinical use on nasopharyngeal swab specimens. The performance of the FilmArray RP has not been established in individuals who received influenza vaccine. Recent administration of a nasal influenza vaccine may cause false positive results for Influenza A and/or Influenza B. us Maria Guadalupe Lopez MD MICROBIOLOGY - GENERAL ORDERA BLES Final Result Performing Organization Address City/[facility]/ZIP Co de Phone Number [facility] [address] [phone] * MRSA Screen (12/12/2024 10:27 AM EDT) [facility] MRSA by PCR [facility] MRSA Not Detected by PCR MRSA Not Detected by PCR DEVICE ID9 12/12/2024 11:45 AM EDT [facility] Nasal BOTH ANTERIOR NARES / Unknown 12/12/2024 10:27 AM EDT 12/12/2024 10:28 AM EDT us Maria Guadalupe Lopez MD MICROBIOLOGY - GENERAL ORDERA BLES Final Result Performing Organization Address [facility] de Phone Number [facility] [address] [place] [address] * XR chest AP portable (12/12/2024 9:10 [...] DIAGNOSTIC IMAGING ORDERA BLES Final Result * (ABNORMAL) CBC - Hemogram (SJ-BKR) (12/12/2024 3:51 AM EDT) WBC 16.1(H) 4.2 - 9.1 K/ L 12/12/2024 4:46 AM EDT [facility] RBC 2.60(L) 4.63 - 6.08 M/ L 12/12/2024 4:46 AM EDT [facility] Hemoglobin 8.2(L) 13.7 - 17.5 GM/DL 12/12/2024 4:46 AM EDT [facility] Hematocrit 25.8(L) 40.1 - 51.0 % 12/12/2024 4:46 AM EDT [facility] MCV 99(H) 79 - 92 fL 12/12/2024 4:46 AM EDT [facility] MCH 31.5 25.7 - 32.2 pg 12/12/2024 4:46 AM EDT [facility] MCHC 31.8(L) 32.3 - 36.5 GM/DL 12/12/2024 4:46 AM EDT [facility] RDW 14.8(H) 11.6 - 14.4 % 12/12/2024 4:46 AM EDT [facility] Platelets 168 140 - 375 K/CU MM 12/12/2024 4:46 AM EDT [facility] MPV 9.7 9.4 - 12.4 fL 12/12/2024 4:46 AM EDT [facility] Blood Venipuncture / Unknown 12/12/2024 3:51 AM EDT 12/12/2024 4:35 AM EDT Aneudy Fitch PA-C LAB BLOOD ORDERABLES Final Res ult [facility] [address] [phone] * (ABNORMAL) Iron and TIBC (12/12/2024 3:51 AM EDT) Iron 11(L) 65 - 175 ug/dL 12/12/2024 10:35 AM EDT [facility] TIBC 183(L) 250 - 435 ug/dL 12/12/2024 10:35 AM EDT [facility] % Saturation 6 % 12/12/2024 10:35 AM EDT [facility] UIBC 172 12/12/2024 10:35 AM EDT [facility] Blood Venipuncture / Unknown 12/12/2024 3:51 AM EDT 12/12/2024 4:38 AM EDT Maria Guadalupe Lopez MD LAB BLOOD ORDERABLES Final Re sult Performing Organization Address [facility]/ZIP Co de Phone Number [facility] [address] [phone] * (ABNORMAL) Ferritin (12/12/2024 3:51 AM EDT) Ferritin 474.71(H) 21.81 - 274.66 ng/mL 12/12/2024 10:35 AM EDT [facility] Blood Venipuncture / Unknown 12/12/2024 3:51 AM EDT 12/12/2024 4:38 AM EDT Maria Guadalupe Lopez MD LAB BLOOD ORDERABLES Final Re sult Performing Organization Address City/[facility]/ZIP Co de Phone Number [facility] [address] [phone] * Vitamin B12 (12/12/2024 3:51 AM EDT) Vitamin B12 439 213 - 816 pg/mL 12/12/2024 10:35 AM EDT [facility] Blood Venipuncture / Unknown 12/12/2024 3:51 AM EDT 12/12/2024 4:38 AM EDT us Maria Guadalupe Lopez MD LAB BLOOD ORDERABLES Final Re sult [facility] [address] [place] [id number], [facility] [phone] from Last 3 Months Insurance [facility] MEDICARE PPO [employer] MEDICARE PPO Advance Directives For more information, please contact: [phone] * DNR - Limited Additional Intervention (Latest Code Status on File) Date Activated Date Inactivated Comments 12/11/2024 4:28 PM 12/14/2024 3:42 PM Care Teams Vine Pruner Relationship Specialty Start Date End Date Eladio Lomas MD [address] [facility] [address] [place] [address] Medical Oncologist Hematology and Oncology 07/08/22 CrowBreanna chao PA-C [address] [address] Physician Estate Manager Oncology 07/08/22
--- OUTSIDE RECORDS SUMMARY | 2024-12-26 08:49 | XMS_ITS | Encounter Summary ---
Author Organization [employer] ([place], [place], [place], [place]) Address [address] [place] [address] Care Team Providers Care Care Asst Name Role Phone Eladio Lomas MD Unavailable Breanna Crow PA-C Unavailable [phone] Encounter Details Date Type Department Care Team (Late st Contact Info) Description 10/15/[address] [facility] [place] Family Medicine [address] [place] [address] ProviderJailyn MD [address] [place] [address] Social History Tobacco Use Types [...] Date Ata rded Speak language other than Bhutanese at home Not on file 05/13/2023 Want [...] Description 01/23/2025 11:00 AM EDT Office Visit [facility] [address] [facility] [address] [place] [address] Matilda Arita APRN [address] [facility] [address] [place] [address] 01/28/2025 9:45 AM EDT Office Visit [facility] Electrophysiology [address] [place] [address] Phuong Lewis MD 1401 [facility] [address] [place] [address] documented as of this encounter Visit Diagnoses Not on filedocumented in this encounter Care Teams Care Asst Relationship Specialty Start Date End Date Eladio Lomas MD 1210 [facility] [address] [place] [address] Medical Oncologist Hematology and Oncology 07/08/22 Breanna Crow PA-C [address] [facility] [address] [place] [address] Physician It Field Technician Oncology 07/08/22 documented as of this encounter
--- OUTSIDE RECORDS SUMMARY | 2024-12-26 08:49 | XMS_ITS | Encounter Summary ---
Author Organization [employer] ([place], [place], [place], [place]) Address [address] [place] [address] Care Team Providers Care Treasury Accountant Name Role Phone Eladio Lomas MD Unavailable Breanna Crow PA-C Unavailable [phone] Reason for Visit * Reason Onset Date Comments Hospital Follow Up 12/18/2024 Encounter Details Date Type Department Care Team (Late st Contact Info) Description 12/18/2024 Telephone [facility] Interventional Care Unit [address] [place] [address] Phuong Lewis MD 1401 [facility] [address] [place] [address] Hospital Follow Up Social History Tobacco Use Types Packs/Day Years [...] speak a language other than Portuguese at [facility]? No 12/11/2024 Do you want [...] as of this encounter Miscellaneous Notes * Telephone Encounter - Earnestine Castano - 12/18/2024 11:59 AM EDT of aware of neurology appt, she states that patient will not be going to see pcp - would rather f/u with oncology instead. Matilda Arita, TEAROOM HOSTESS Neurology Nurse Practitioner [phone] [place] [address] Next Steps: Go on 01/23/2025 Instructions: Appt time is 11 am. documented in this encounter Plan of Treatment Upcoming Encounters Date Type Department Care Team (Late st Contact Info) Description 01/23/2025 11:00 AM EDT Office Visit [facility] Neurology - [address] [facility] [address] [address] Matilda Arita, ESPERANZA [address] [place] [address] 01/28/2025 9:45 AM EDT Office Visit [facility] Electrophysiology [address] [place] [address] Phuong Lewis MD 1401 [facility] [address] [place] [address] documented as of this encounter Visit Diagnoses Not on filedocumented in this encounter Care Teams Treasury Accountant Relationship Specialty Start Date End Date Eladio Lomas MD 1210 [facility] [address] [place] [address] Medical Oncologist Hematology and Oncology 07/08/22 Breanna Crow PA-C [address] [id number] Physician Ski Base Trimmer Oncology 07/08/22 documented as of this encounter
--- OUTSIDE RECORDS SUMMARY | 2024-12-26 08:49 | XMS_ITS | Encounter Summary ---
Author Organization [employer] ([place], [place], [place], [place]) Address [address] [place] [address] Care Team Providers Care Tombstone Erector Helper Name Role Phone Eladio Lomas MD Unavailable Breanna Crow PA-C Unavailable [phone] Encounter Details Date Type Department Care Team (Late st Contact Info) Description 01/01/2022 Transcribed Document [facility] Family Medicine [address] [place] [address] ProviderJailyn MD [address] [place] [address] Social History Tobacco Use Types [...] Historical Provider, - 01/01/2022 1:04 [place] [address] CORBIN HU :1950 Visit Time:01/01/2022 What to do [...] for follow-up date and appointment time Activity: [place] dressing. Do not remove. May shower with [...] MD-ORT When 01/14/2022 11:00 AM EDT Where: [address] [place] [address] [address] [place] [address]- Medications What How Much When Instructions Next Dose acetaminophen-oxyCODONE (Percocet 7.5/ 325 oral tablet) 1 Tablet(s) Oral Three Times A Day as needed for for pain Pickup at [facility] acetaminophen (Tylenol 325 mg oral tablet) 2 Tablet(s) Oral Every 4 Hours as needed for Pain (Mild 1-3) ergocalciferol (ergocalciferol 50 mcg (2000 intl units) oral capsule) 1 Capsule(s) Oral Every Day Duration: 14 Day(s) multivitamin (Multiple Vitamins oral tablet) 1 Tablet(s) Oral Every Day valACYclovir (Valtrex 1 g oral tablet) 1 Tablet(s) Oral Every Day Pharmacy Information [facility]: [address] [place] [address] [phone] Take your medications faithfully. Do NOT skip [...] these instructions at home: Medicines ??? Take mhlt-vwa-fnrttjf and prescription medicines as told by your [...] keep your urine pale yellow. ? Take qbgv-dyl-hrcthzt or prescription medicines. ? Eat foods that [...] and water are not available, use hand rn admit. ? Change your dressing as told by [...] safe to drive. General instructions ??? Take ehuu-wtr-cydwxye and prescription medicines only as told by [...] provider. Document Revised: 08/06/2020 Document Reviewed: 08/06/2020 [employer] Patient Education ?? 2021 [employer] Laminectomy, Care After This sheet gives [...] these instructions at home: Medicines ??? Take xzei-ntu-rickaxp and prescription medicines only as told by [...] keep your urine pale yellow. ? Take hrcs-lcl-agsrkut or prescription medicines. ? Eat foods that [...] and water are not available, use hand rn admit. ? Change your dressing as told by [...] provider. Document Revised: 11/12/2019 Document Reviewed: 11/12/2019 [employer] Patient Education ?? 2021 [email or web address]. Emergency Awareness and Preventative Care STROKE is [...] Assistance with quitting is available by contacting 5-260-BCMG-NOW. This is a free resource providing counseling, [...] Laboratory or Other Results This Visit Patient Name:CORBIN HUNE I have received this information and was given the opportunity to ask questions. Patient/Photograph Enlarger Name: Patient/Photograph Enlarger Signature: Relationship to Patient: Clinician/Hospital Photograph Enlarger Signature: Date: documented in this encounter Plan of Treatment Upcoming Encounters Date Type Department Care Team (Late st Contact Info) Description 01/23/2025 11:00 AM EDT Office Visit [facility] Neurology - [address] [place] [address] Matilda Arita APRN 1021 [facility] [address] [place] [address] 01/28/2025 9:45 AM EDT Office Visit [facility] Electrophysiology [address] [place] [phone] Phuong Lewis MD 1401 [facility] [address] [place] [address] documented as of this encounter Visit Diagnoses Not on filedocumented in this encounter Care Teams Tombstone Erector Helper Relationship Specialty Start Date End Date Eladio Lomas MD 1210 [facility] [address] [place] [address] Medical Oncologist Hematology and Oncology 07/08/22 Breanna Crow, PACecilia [address] [facility] [address] [place] [address] Physician Date Puller Oncology 07/08/22 documented as of this encounter
--- OUTSIDE RECORDS SUMMARY | 2024-12-26 08:49 | XMS_ITS | Encounter Summary ---
Author Organization [employer] ([place], [place], [place], [place]) Address [address] [place] [address] Care Team Providers Care Blindstitch Lining Feller Name Role Phone Eladio Lomas MD Unavailable Breanna Crow PA-C Unavailable [phone] Encounter Details Date Type Department Care Team (Late st Contact Info) Description 10/15/2021 Transcribed Document [facility] [place] [address] [place] [address] ProviderJailyn MD [address] [place] [address] Social History Tobacco Use Types [...] At risk for sleep apnea / IMO [id number] / Confirmed, Active Problems (2) At risk for sleep apnea Mitral valve prolapse Objective VS/Measurements Measurements from flowsheet : Measurements 10/15/2021 4:48 EDT Height Source Stated Height Entry Format Baker Height/Length, BHUTANESE (ft) 5 ft Height/Length BHUTANESE 6 Inch CLINICALHEIGHT 167.64 cm [place] Body Weight 63 kg Weight Source Bed scale Weight Entry Format Baker Weight Togolese lb 131 lb Weight Togolese oz 5 oz CLINICALWEIGHT 59.69 kg Body Surface Area (BSA) 1.67 m2 Body Mass Index 21.2 kg/m2 10/15/2021 3:09 EDT Height Source Not Done: Task Duplication (Not Done) Height Entry Format Not Done: Task Duplication (Not Done) Weight Source Not Done: Task Duplication (Not Done) 10/14/2021 18:31 EDT Height Source Stated Height Entry Format Baker Height/Length, BHUTANESE (ft) 5 ft Height/Length BHUTANESE 6 Inch CLINICALHEIGHT 167.64 cm [place] Body Weight 62.88 kg Weight Source, ED Critical estimated dosing weight Weight Entry Format Baker Weight Togolese lb 180 lb CLINICALWEIGHT 81.82 kg Body Surface Area (BSA) 1.91 m2 Body Mass Index 29.1 kg/m2 [place] documented in this encounter Plan of Treatment Upcoming Encounters Date Type Department Care Team (Late st Contact Info) Description 01/23/2025 11:00 AM EDT Office Visit [facility] Neurology - [address] [address] Matilda Arita APRN 1021 [facility] 200 [place] [address] 01/28/2025 9:45 AM EDT Office Visit [facility] Electrophysiology [address] [place] [phone] Phuong Lewis MD 1401 [facility] [address] [place], [place] [id number] documented as of this encounter Visit Diagnoses Not on filedocumented in this encounter Care Teams Blindstitch Lining Feller Relationship Specialty Start Date End Date Eladio Lomas MD 1210 [facility] [address] [place] [address] Medical Oncologist Hematology and Oncology 07/08/22 Breanna Crow PA-C 34[address] [facility] [address] [place] [address] Physician Network Support Manager Oncology 07/08/22 documented as of this encounter
--- OUTSIDE RECORDS SUMMARY | 2024-12-26 08:49 | XMS_ITS | Encounter Summary ---
Author Organization [employer] ([place], [place], [place], [place]) Address [address] [place] [address] Care Team Providers Care V/Stol Landing Signal Officer Name Role Phone Eladio Lomas MD Unavailable Breanna Crow PA-C Unavailable [phone] Encounter Details Date Type Department Care Team (Late st Contact Info) Description 01/01/2022 Transcribed Document [facility] Family Medicine [address] [place] [address] ProviderJailyn MD [address] [place] [address] Social History Tobacco Use Types [...] Historical Provider, - 01/01/2022 12:58 [place] [address] CORBIN HU :1950 Visit Time:01/01/2022 What to [...] for follow-up date and appointment time Activity: [place] dressing. Do not remove. May shower with [...] MD-ORT When 01/14/2022 11:00 AM EDT Where: [address] [place] [address] [address] [place] [address]- Medications What How Much When Instructions Next Dose acetaminophen-oxyCODONE (Percocet 7.5/ 325 oral tablet) 1 Tablet(s) Oral Three Times A Day as needed for for pain Pickup at [facility] acetaminophen (Tylenol 325 mg oral tablet) 2 Tablet(s) Oral Every 4 Hours as needed for Pain (Mild 1-3) ergocalciferol (ergocalciferol 50 mcg (2000 intl units) oral capsule) 1 Capsule(s) Oral Every Day Duration: 14 Day(s) multivitamin (Multiple Vitamins oral tablet) 1 Tablet(s) Oral Every Day valACYclovir (Valtrex 1 g oral tablet) 1 Tablet(s) Oral Every Day Pharmacy Information [facility]: [address] [place] [address] [phone] Take your medications faithfully. Do NOT skip [...] these instructions at home: Medicines ??? Take rnfu-hko-gddpjrc and prescription medicines as told by your [...] keep your urine pale yellow. ? Take qfyq-msc-hdzvmwg or prescription medicines. ? Eat foods that [...] and water are not available, use hand motor and generator assembler. ? Change your dressing as told by [...] safe to drive. General instructions ??? Take fckw-efx-xjygwrb and prescription medicines only as told by [...] provider. Document Revised: 08/06/2020 Document Reviewed: 08/06/2020 [employer] Patient Education ?? 2021 [employer] Laminectomy, Care After This sheet gives [...] these instructions at home: Medicines ??? Take bmit-iua-cyhvbzq and prescription medicines only as told by [...] keep your urine pale yellow. ? Take bikp-zey-bkrudvw or prescription medicines. ? Eat foods that [...] and water are not available, use hand motor and generator assembler. ? Change your dressing as told by [...] provider. Document Revised: 11/12/2019 Document Reviewed: 11/12/2019 [employer] Patient Education ?? 2021 [employer]. Emergency Awareness and Preventative Care STROKE is [...] Assistance with quitting is available by contacting 1-431-LYQA-NOW. This is a free resource providing counseling, [...] Laboratory or Other Results This Visit Patient Name:SANDIE CORBIN LOPEZNE I have received this information and was given the opportunity to ask questions. Patient/Concrete Vault Maker Name: Patient/Concrete Vault Maker Signature: Relationship to Patient: Clinician/Hospital Concrete Vault Maker Signature: Date: documented in this encounter Plan of Treatment Upcoming Encounters Date Type Department Care Team (Late st Contact Info) Description 01/23/2025 11:00 AM EDT Office Visit [facility] Neurology - [address] [place] [address] Matilda Arita APRN 1021 [facility] [address] [place] [address] 01/28/2025 9:45 AM EDT Office Visit [facility] Electrophysiology [address] [place] [phone] Phuong Lewis MD 1401 [facility] [address] [place] [address] documented as of this encounter Visit Diagnoses Not on filedocumented in this encounter Care Teams V/Stol Landing Signal Officer Relationship Specialty Start Date End Date Eladio Lomas MD 1210 [facility] [address] [place] [address] Medical Oncologist Hematology and Oncology 07/08/22 Breanna Crow, PACecilia 1903 [facility] [address] [place] [address] Physician Real Estate Accountant Oncology 07/08/22 documented as of this encounter
--- OUTSIDE RECORDS SUMMARY | 2024-12-26 08:49 | XMS_ITS | Encounter Summary ---
Author Organization [employer] ([place], [place], [place], [place]) Address [address] [place] [address] Care Team Providers Care Gericare Aide Name Role Phone Eladio Lomas MD Unavailable Breanna Crow PA-C Unavailable [phone] Encounter Details Date Type Department Care Team (Late st Contact Info) Description 10/15/2021 Transcribed Document [facility] [place] Family Medicine [address] [place] [address] ProviderJailyn MD [address] [place] [address] Social History Tobacco Use Types [...] On: 10/15/2021 8:35 EDT by DAYDAY MEADOWS OTR/L Attempt to Treat Unable to Treat Due To : Acuity of Illness, Patient on hold, Pending order clarification Inability to Treat Comment : Pt with DVT. Eval held today as a result. Will attempt again at later date if pt able, willing. DAYDAY MEADOWS OTR/L - 10/15/2021 12:32 EDT Electronically signed by [facility] Conversion Automatic Driller And Reamer Cerner at 08/17/2022 6:13 PM CDT documented in this encounter Plan of Treatment Upcoming Encounters Date Type Department Care Team (Late st Contact Info) Description 01/23/2025 11:00 AM EDT Office Visit [facility] Neurology - [address] [facility] [address] [place] [address] Matilda Arita APRN 1021 [facility] [address] [place] [address] 01/28/2025 9:45 AM EDT Office Visit [facility] Electrophysiology [address] [place] [address] Phuong Lewis MD 1401 [facility] [address] [place], [place] [id number] documented as of this encounter Visit Diagnoses Not on filedocumented in this encounter Care Teams Gericare Aide Relationship Specialty Start Date End Date Eladio Lomas MD 1210 [facility] [address] [place] [address] Medical Oncologist Hematology and Oncology 07/08/22 Breanna Crow PA-C 7710 [facility] [address] [place], [place] [phone] Physician Saturation Equipment Operator Oncology 07/08/22 documented as of this encounter
--- OUTSIDE RECORDS SUMMARY | 2024-12-26 08:49 | XMS_ITS | Encounter Summary ---
Author Organization [employer] ([place], [place], [place], [place]) Address [address] [place] [address] Care Team Providers Care Molder Pipe Covering Name Role Phone Eladio Lomas MD Unavailable Breanna Crow PA-C Unavailable [phone] Encounter Details Date Type Department Care Team (Late st Contact Info) Description 01/01/2022 Transcribed Document [facility] [place] [address] [place] [address] ProviderJailyn MD [address] [place] [address] Social History Tobacco Use Types [...] Date Ata rded Speak language other than Malian at home Not on file 05/13/2023 Want [...] Historical Provider, - 01/01/2022 1:12 [place] [address] CORBIN HU :1950 Visit Time:01/01/2022 What to [...] for follow-up date and appointment time Activity: [place] dressing. Do not remove. May shower with [...] MD-ORT When 01/14/2022 11:00 AM EDT Where: [address] [place] [address] [address] [place] [address]- Medications What How Much When Instructions Next [...] [facility] Pharm: [address] [place] [address] [phone] Take your medications faithfully. Do NOT skip [...] these instructions at home: Medicines ??? Take vnuu-wgw-drxmaqw and prescription medicines as told by your [...] keep your urine pale yellow. ? Take vtrm-qhd-snwpeke or prescription medicines. ? Eat foods that [...] and water are not available, use hand utility bill complaints investigator. ? Change your dressing as told by [...] safe to drive. General instructions ??? Take wlqw-svb-orldktc and prescription medicines only as told by [...] provider. Document Revised: 08/06/2020 Document Reviewed: 08/06/2020 [employer] Patient Education ?? 2021 [employer] Laminectomy, Care After This sheet gives [...] these instructions at home: Medicines ??? Take widx-hjd-xuookrs and prescription medicines only as told by [...] keep your urine pale yellow. ? Take weid-thi-gzvjfpd or prescription medicines. ? Eat foods that [...] and water are not available, use hand utility bill complaints investigator. ? Change your dressing as told by [...] provider. Document Revised: 11/12/2019 Document Reviewed: 11/12/2019 [employer] Patient Education ?? 2021 [employer]. Emergency Awareness and Preventative Care STROKE is [...] Assistance with quitting is available by contacting 7-858-GARS-NOW. This is a free resource providing counseling, [...] was given the opportunity to ask questions. Patient/Lard Refiner Name: Patient/Lard Refiner Signature: Relationship to Patient: Clinician/Hospital Lard Refiner Signature: Date: documented in this encounter Plan of Treatment Upcoming Encounters Date Type Department Care Team (Late st Contact Info) Description 01/23/2025 11:00 AM EDT Office Visit [facility] Neurology - [address] [place] [address] Matilda Arita APRN 1021 [facility] [address] [place] [address] 01/28/2025 9:45 AM EDT Office Visit [facility] Electrophysiology [address] [place] [phone] Phuong Lewis MD [address]01 [facility] [address] [place] [address] documented as of this encounter Visit Diagnoses Not on filedocumented in this encounter Care Teams Molder Pipe Covering Relationship Specialty Start Date End Date Eladio Lomas MD 1210 [facility] [address] [place] [address] Medical Oncologist Hematology and Oncology 07/08/22 Breanna Crow, PACecilia 8[address] [facility] [address] [place] [address] Physician Mobile Security Specialist Oncology 07/08/22 documented as of this encounter
--- OUTSIDE RECORDS SUMMARY | 2024-12-26 08:50 | XMS_ITS | Clinical Summary ---
Author Organization [employer] ([place], [place], [place], [place]) Address [address] [place] [address] Care Team Providers Care Core Sticker Name Role Phone Eladio Lomas MD Unavailable Breanna Crow PA-C Unavailable [phone] Allergies Active Allergy Reactions Criticality Noted [...] Restart based on recommendations per your Oncologist. 025 Active aspirin 81 MG EC tablet Take 1 tablet (81 mg total) by mouth daily for 30 days. 30 tablet 1 025 2024 Active ferrous gluconate 324 mg (37.5 mg iron) tab Take 1 tablet (324 mg total) by mouth daily for 30 days. 30 tablet 2 025 2024 Active gabapentin (NEURONTIN) 300 MG capsule Take 1 capsule (300 mg total) by mouth nightly for 30 days. Max Daily Amount: 300 mg 30 capsule 025 2024 Active valACYclovir (VALTREX) 1000 MG tablet [...] state 04/16/2023 CLL (chronic lymphocytic leukemia) 03/29/2022 Encounters Date Type Department Care Team Description 12/18/2024 Telephone [place] [address] [facility] [address] [place] [phone] Phuong Lewis MD Hospital Follow Up 12/14/2024 3:15 PM EDT Clinical Support [facility] Electrophysiology [address] [place], [place] [phone] Patricia Kapoor MA Palpitations 12/14/2024 Orders Only [facility] Electrophysiology [address] [place] [address] Covert, Dorothy Urena CMA Palpitations (Primary Dx) 12/11/2024 4:55 PM EDT - 12/14/2024 2:40 PM EDT Hospital Encounter [place] [address] Inter[facility] [address] [place] [phone] Pietro Toure MD Hughes, Isaac, PA-C Galdass, Mariann, MD Discharge Disposition: Home or Self Care from Last 3 Months Social History Tobacco Use Types Packs/Day Years [...] living situation today? I have a [facility] place to live 12/11/2024 Think [...] Do you speak a language other than [place] at [facility]? No 12/11/2024 Do you want help with [...] Medical Center Neurology - [address] [place] [address] Matilda Arita APRN [address] [place] [address] 01/28/2025 9:45 AM EDT Office Visit [facility] Electrophysiology [address] [place] [address] Phuong Lewis MD [address] [facility] [address] [place] [address] Health Maintenance Due Date Last Done Comments Medicare Initial AWV G0438 Depression Screening (12+) 1962 Hepatitis C Screening 01/05/1966 DTAP/TDAP/TD VACCINES (1 - Tdap) 01/05/1967 Shingles Vaccine (Zoster) (2 of 2) 04/08/20222021 Respiratory Syncytial Virus (RSV) Adult or (1 - 1-dose 75+ series) 01/05/2023 COVID-19 VACCINE (2023-2 5 season) 2024 03/05/2022, 08/25/2021, 03/02/2021, Additional history exists Falls Risk Screening 05/02/2024 Influenza Vaccine (#1) 2024 , 02/05/2021, 04/10/2018, Additional history exists Tobacco Cessation Counseling and Screening (12+) 12/11/2025 12/11/2024 Pneumococcal 50+ years Completed 02/09/2022 Procedures Procedure Name Priority Date/Time Associated Diagnosis [...] 9.1 K/ L 12/14/2024 6:17 AM EDT [facility] RBC 2.63(L) 4.63 - 6.08 M/ L 12/14/2024 6:17 AM EDT [facility] Hemoglobin 8.2(L) 13.7 - 17.5 GM/DL 12/14/2024 6:17 AM EDT [facility] Hematocrit 25.9(L) 40.1 - 51.0 % 12/14/2024 6:17 AM EDT [facility] MCV 99(H) 79 - 92 fL 12/14/2024 6:17 AM EDT [facility] MCH 31.2 25.7 - 32.2 pg 12/14/2024 6:17 AM EDT [facility] MCHC 31.7(L) 32.3 - 36.5 GM/DL 12/14/2024 6:17 AM EDT [facility] RDW 15.0(H) 11.6 - 14.4 % 12/14/2024 6:17 AM EDT [facility] Platelets 177 140 - 375 K/CU MM 12/14/2024 6:17 AM EDT [facility] MPV 9.9 9.4 - 12.4 fL 12/14/2024 6:17 AM EDT [facility] NRBC Absolute <0.01 0 - 0.012 K/ul 12/14/2024 6:17 AM EDT [facility] Blood Venipuncture / Unknown 12/14/2024 5:35 AM EDT 12/14/2024 6:05 AM EDT [facility] - 12/14/2024 6:17 AM EDT When [...] MD LAB BLOOD ORDERABLES Final Res ult [facility] [address] [place] [address], [facility] [phone] * (ABNORMAL) Manual Differential (12/14/2024 5:35 AM EDT) Only the most recent of2 resultswithin the time period is included. Total Counted 100 12/14/2024 8:02 AM EDT [facility] % Neutros (manual) 13(L) 50 - 65 % 12/14/2024 8:02 AM EDT [facility] % Lymphs (manual) 86(H) 24 - 44 % 025 8:02 AM EDT [facility] % Monos (manual) 1(L) 4 - 5 % 12/15/19 25 8:02 AM EDT [facility] RBC Morphology abnormal(A) Normal 8:02 AM EDT [facility] Platelet Estimate Adequate Adequate 025 8:02 AM EDT [facility] Anisocytosis 1+ 12/14/2024 8:02 AM EDT [facility] Hypochromia 1+ 12/14/2024 8:02 AM EDT [facility] Polychromasia 1+ 12/14/2024 8:02 AM EDT [facility] Smudge Cells Present 12/14/2024 8:02 AM EDT [facility] Macrocytes 1+ 12/14/2024 8:02 AM EDT [facility] ANC# 2.89 K/ L 12/14/2024 8:02 AM EDT [facility] Blood Venipuncture / Unknown 12/14/2024 5:35 AM EDT 12/14/2024 6:05 AM EDT us Matt Vargas MD LAB BLOOD ORDERABLES Final Res ult [facility] [address] [phone] * (ABNORMAL) Basic Metabolic Panel (12/14/2024 5:35 AM EDT) Only the most recent of3 resultswithin the time period is included. Sodium 142 136 - 145 meq/L 12/14/2024 6:48 AM EDT [facility] Potassium 3.9 3.4 - 5.1 meq/L 12/14/2024 6:48 AM EDT [facility] CO2 25 22 - 29 meq/L 12/14/2024 6:48 AM EDT [facility] Chloride 108 98 - 112 meq/L 12/14/2024 6:48 AM EDT [facility] Glucose 120(H) 82 - 115 mg/dL 12/14/2024 6:48 AM EDT [facility] BUN 14.4 8.4 - 25.7 mg/dL 12/14/2024 6:48 AM EDT [facility] Creatinine 0.68(L) 0.72 - 1.25 mg/dL 12/14/2024 6:48 AM EDT [facility] BUN/Creatinine 21(H) 8 - 20 12/14/2024 6:48 AM EDT [facility] Calcium 7.7(L) 8.4 - 10.2 mg/dL 12/14/2024 6:48 AM EDT [facility] Anion Gap 13(H) 4 - 12 12/14/2024 6:48 AM EDT [facility] eGFR (mL/min/1.73m2) 96 >=60 mL/min/1.7 3m2 12/14/2024 6:48 AM EDT [facility] Osmolality Calc 284.9 mOsm/kg 6:48 AM EDT [facility] Blood Venipuncture / Unknown 12/14/2024 5:35 AM EDT 12/14/2024 6:18 AM EDT us Maria Guadalupe Lopez MD LAB BLOOD ORDERABLES Final Re sult [facility] [address] [phone] * Sedimentation rate (12/13/2024 6:09 PM EDT) Sed Rate 10 0 - 20 mm/HR 12/13/2024 6:24 PM EDT [facility] Blood Venipuncture / Unknown 12/13/2024 6:09 PM EDT 12/13/2024 6:20 PM EDT us Jaron Amin MD LAB BLOOD ORDERABLES Final Resul t [facility] [address] [phone] * ECHO COMPLETE (DOPPLER / COLOR) WO CONTRAST (12/13/2024 1:08 PM EDT) Anatomical Region Laterality Modality Heart Vascular Ultraso und 12/13/2024 12:1 1 PM EDT Narrative 12/13/2024 11:34 PM EDT TRANSTHORACIC ECHOCARDIOGRAPHY REPORT Demographics Patient Name: SANDIE KOROMA : 1950 Age: 74 year(s) Corporate ID Number: [id number] Gender Male Tankage Supervisor: Arcadiamoise Souza Height: [address] Referring Physician: MARIA GUADALUPE LOPEZ MD Weight: 139 pounds Interpreting BEBETO WALTER MD BMI: 23.13 kg/m^2 Physician: Date of Service: 12/13/2024 Blood Pressure: 118/57 mmHg Room Number: 405 Type of Study: TTE procedure: ECHO COMPLETE (DOPPLER / COLOR) W OR WO CONTRAST. Patient Status: Routine IP [facility] History/Tech Notes: Indication: other [...] 1.15 m/s E/A ratio: 1.42 m/s Volume rtrbmirsm826.52 LV length: 8.99 cm ml Volume kfsasszb28.92 ml LVOT diameter: 2.03 cm Normal sized [...] Valve TR velocity: 3 m/s TR gradient: 35.90307 mmHg Estimated RAP: 8 mmHg RVSP: 43.96 [...] 1950 Age: 74 year(s) Corporate ID Number: [id number] Gender Male Tankage Supervisor: Jillian Souza Height: 65 inches [facility] Referring Physician: MARIA GUADALUPE LOPEZ MD Weight: 139 pounds Interpreting BEBETO WALTER MD BMI: 23.13 kg/m^2 Physician: Date of Service: 12/13/2024 Blood Pressure: 118/57 mmHg Room Number: 405 Type of Study: TTE procedure: ECHO COMPLETE (DOPPLER / COLOR) W OR WO CONTRAST. Patient Status: Routine IP [facility] History/Tech Notes: [...] 1.15 m/s E/A ratio: 1.42 m/s Volume pizpywnea343.52 LV length: 8.99 cm ml Volume hzmicclc93.92 ml LVOT diameter: 2.03 cm Normal sized [...] Valve TR velocity: 3 m/s TR gradient: 35.09844 mmHg Estimated RAP: 8 mmHg RVSP: 43.96 [...] Demographics Patient Name SANDIE SMITH Age 74 [place] Patient Number [id number] Gender Male Race Ethnicity Corporate ID [id number] Height 65 Date of 1950 Weight 139 Accession Number [id number] BSA 1.69 m^2 Room Number 405 BMI 23.13 kg/m^2 Referring Alyson Ferguson MD Interpreting BEBETO WALTER MD Physician Physician Tankage Supervisor HERNAN MontgomeryT Procedure Type of Study: Veins: Venous Duplex, [...] Demographics Patient Name SANDIE SMITH Age 74 [place] Patient Number [id number] Gender Male Race Ethnicity Corporate ID [id number] Height 65 Date of 1950 Weight 139 Accession Number [id number] BSA 1.69 m^2 Room Number 405 BMI 23.13kg/m^2 Referring Alyson Ferguson MD Interpreting BEBETO PERALTA Physician Physician Tankage Supervisor Rosy Guido RVT Procedure Type of Study: [...] Demographics Patient Name SANDIE SMITH Age 74 [place] Patient Number [id number] Gender Male Race Ethnicity Corporate ID [id number] Height 65 Date of 1950 Weight 139 Accession Number [id number] BSA 1.69 m^2 Room Number 405 BMI 23.13 kg/m^2 Referring MARIA GUADALUPE LOPEZ MD Interpreting BEBETO WALTER MD Physician Physician Tankage Supervisor Rosy Guido RVT Procedure Type of Study: [...] Demographics Patient Name SANDIE SMITH Age 74 [place] Patient Number [id number] Gender Male Race Ethnicity Corporate ID [id number] Height 65 Date of 1950 Weight 139 Accession Number [id number] BSA 1.69 m^2 Room Number 405 BMI 23.13kg/m^2 Referring MARIA GUADALUPE LOPEZ MD Interpreting BEBETO PERALTA Physician Physician Tankage Supervisor Rosy Guido RVT Procedure Type of Study: [...] - 5.0 mg/L 12/13/2024 6:10 PM EDT [facility] Blood Venipuncture / Unknown 12/13/2024 5:12 AM EDT 12/13/2024 5:24 AM EDT Jaron Amin MD LAB BLOOD ORDERABLES Final Resul t Performing Organization Address [facility]/State/ZIP Co de Phone Number [facility] [address] [phone] * Vitamin D, 25-Hydroxy (12/13/2024 5:12 AM EDT) Vitamin D 25-Hydroxy 31.33 30 - 80 ng/mL 12/13/2024 6:13 AM EDT [facility] Blood Venipuncture / Unknown 12/13/2024 5:12 AM EDT 12/13/2024 5:24 AM EDT Maria Guadalupe Lopez MD LAB BLOOD ORDERABLES Final Re sult Performing Organization Address City/[facility]/ZIP Co de Phone Number [facility] [address] [phone] * TSH (12/13/2024 5:12 AM EDT) [facility] TSH 2.613 0.350 - 4.940 uIU/mL 12/13/2024 6:07 AM EDT [facility] Blood Venipuncture / Unknown 12/13/2024 5:12 AM EDT 12/13/2024 5:24 AM EDT us Maria Guadalupe Lopez MD LAB BLOOD ORDERABLES Final Re sult Performing Organization Address [facility]/ZIP Co de Phone Number [facility] [address] [phone] * Magnesium (12/13/2024 5:12 AM EDT) [facility] Magnesium 2.2 1.6 - 2.6 mg/dL 12/13/2024 3:16 PM EDT [facility] Blood Venipuncture / Unknown 12/13/2024 5:12 AM EDT 12/13/2024 5:24 AM EDT us Phuong Lewis MD LAB BLOOD ORDERABLES Final Resu lt Performing Organization Address [facility]/ZIP Co de Phone Number [facility] [address] [phone] * (ABNORMAL) Lipid panel (12/13/2024 5:12 AM EDT) [facility] Triglycerides 108 <=149 mg/dL 12/13/2024 8:20 AM EDT [facility] Comment: Normal: < 150 mg/dL Borderline High: 150 to 199 mg/dL High: 200 to 499 mg/dL Very High: >/= 500 mg/dL Cholesterol 81(L) 100 - 199 mg/dL 12/13/2024 8:20 AM EDT [facility] Comment: Child: Desirable: < 170 mg/dL Borderline: 170 to 199 mg/dL High: >/= 200 mg/dL Adult: Desirable: < 200 mg/dL Borderline: 200 to 239 mg/dL High: >/= 240 mg/dL HDL Cholesterol 12 See Comment mg/dL 12/13/2024 8:20 AM EDT [facility] Comment: Major risk factor for heart disease: < 40 mg/dL Negative risk factor for heart disease: >/= 60 mg/dL LDL Cholesterol, Calculated 47 0 - 100 mg/dL 12/13/2024 8:20 AM EDT [facility] Comment: Unable to calculate Optimal: < 100 mg/dL Near or above optimal: 100 to 129 mg/dL Borderline high: 130 to 159 mg/dL High: 160 to 189 mg/dL Very high: >/= 190 mg/dL Based on AHA/NCEP Guidelines LDl/HDL Ratio 4 0 - 4 12/13/2024 8:20 AM EDT [facility] Comment:Unable to calculate. Cholesterol/HDL ratio 6.8(H) 0.0 - 5.0 mg/dL 12/13/2024 8:20 AM EDT [facility] VLDL Cholesterol 21.6 5 - 40 mg/dL 12/13/2024 8:20 AM EDT [facility] Comment:Unable to calculate Blood Venipuncture / Unknown 12/13/2024 5:12 AM EDT 12/13/2024 5:24 AM EDT us Maria Guadalupe Lopez MD LAB BLOOD ORDERABLES Final Re sult [facility] [address] [phone] * MR Brain Without IV Contrast (12/12/2024 [...] Haider Bond MD Maria Guadalupe Lopez MD IMG MRI ORDERABLES [...] Bond MD us Maria Guadalupe Lopez MD [facility] MRI ORDERABLES Final Resu lt * Strep pneumoniae urine antigen (12/12/2024 11:48 AM EDT) Strep pneumoniae Antigen Presumptive negative for pneumococcal pneumonia - see comment Presumptive negative for pneumococcal pneumonia- see comment 12/12/2024 12:09 PM EDT [facility] Urine URINE / Unknown 12/12/2024 1 1:48 AM EDT 12/12/2024 11:48 AM EDT Narrative [facility] - 12/12/2024 12:09 PM EDT A presumptive negative result suggests no current or recent pneumococcal infection. Infection due to S. pneumoniae cannot be ruled out since the antigen present in the specimen may be below the detection limit of the test. us Maria Guadalupe Lopez MD MICROBIOLOGY - GENERAL ORDERA BLES Final Result Performing Organization Address [facility] Co de Phone Number [facility] [address] [phone] * Legionella antigen, urine (12/12/2024 11:48 AM EDT) Legionella Urine Antigen Presumptive negative for L. pneumophila serogroup 1 antigen in urine- see comment Presumptive negative for L. pneumophila serogroup 1 antigen in urine- see comment 12/12/2024 12:08 PM EDT [facility] Urine 12/12/2024 11:4 8 AM EDT 12/12/2024 11:48 AM EDT Narrative [facility] - 12/12/2024 12:08 PM [...] URINE ORDERABLES Final Result Performing Organization Address [facility]/ZIP Co de Phone Number [facility] [address] [phone] * Respiratory Panel (12/12/2024 10:27 AM EDT) ADENOVIRUS Not detected Not detected 12/12/2024 11:25 AM EDT [facility] CORONAVIRUS 229E Not detected Not detected 12/12/2024 11:25 AM EDT [facility] CORONAVIRUS HKU1 Not detected Not detected 12/12/2024 11:25 AM EDT [facility] CORONAVIRUS NL63 Not detected Not detected 12/12/2024 11:25 AM EDT [facility] CORONAVIRUS OC43 Not detected Not detected 12/12/2024 11:25 AM EDT [facility] SARS-COV2/RT-PCR Not Detected Not Detected 12/12/2024 11:25 AM EDT [facility] HUMAN METAPNEUMOVIRUS Not detected Not detected 12/12/2024 11:25 AM EDT [facility] HUMAN RHINOVIRUS/ENTEROV IRUS Not detected Not detected 12/12/2024 11:25 AM EDT [facility] INFLUENZA A Not detected Not detected 12/12/2024 11:25 AM EDT [facility] INFLUENZA B Not detected Not detected 12/12/2024 11:25 AM EDT [facility] PARAINFLUENZA VIRUS 1 Not detected Not detected 12/12/2024 11:25 AM EDT [facility] PARAINFLUENZA VIRUS 2 Not detected Not detected 12/12/2024 11:25 AM EDT [facility] PARAINFLUENZA VIRUS 3 Not detected Not detected 12/12/2024 11:25 AM EDT [facility] PARAINFLUENZA VIRUS 4 Not detected Not detected 12/12/2024 11:25 AM EDT [facility] RESPIRATORY SYNCYTIAL VIRUS Not detected Not detected 12/12/2024 11:25 AM EDT [facility] BORDETELLA PARAPERTUSSIS Not detected Not detected 12/12/2024 11:25 AM EDT [facility] BORDETELLA PERTUSSIS Not detected Not detected 12/12/2024 11:25 AM EDT [facility] CHLAMYDIA PNEUMONIAE Not detected Not detected 12/12/2024 11:25 AM EDT [facility] MYCOPLASMA PNEUMONIAE Not detected Not detected 12/12/2024 11:25 AM EDT [facility] Nasopharyngeal NASOPHARYNGEAL SWAB / Unknown 12/12/2024 10:27 AM EDT 12/12/2024 10:28 AM EDT Narrative [facility] - 12/12/2024 11:25 AM EDT Testing was performed with RT-PCR methodology using the [employer] [place] Respiratory Panel 2.1 which has FDA De [...] decisions. This sample was tested at the [facility] using the [employer] FilmArray Respiratory Panel. It is FDA cleared and has been verified and approved by the [facility] for clinical use on nasopharyngeal swab specimens. The performance of the FilmArray RP has not been established in individuals who received influenza vaccine. Recent administration of a nasal influenza vaccine may cause false positive results for Influenza A and/or Influenza B. Maria Guadalupe Lopez MD MICROBIOLOGY - GENERAL ORDERA BLES Final Result [facility] [address] [phone] * MRSA Screen (12/12/2024 10:27 AM EDT) Pathologist [facility] [place] MRSA by PCR [facility] MRSA Not Detected by PCR MRSA Not Detected by PCR DEVICE ID9 12/12/2024 11:45 AM EDT [facility] Nasal BOTH ANTERIOR NARES / Unknown 12/12/2024 10:27 AM EDT 12/12/2024 10:28 AM EDT Maria Guadalupe Lopez MD MICROBIOLOGY - GENERAL ORDERA BLES Final Result [facility] [address] [phone] * XR chest AP portable (12/12/2024 9:10 [...] the right lung base, may represent pneumonia. Maria Guadalupe Lopez MD IM DIAGNOSTIC IMAGING ORDERA BLES Final Result * (ABNORMAL) CBC - Hemogram (SJ-BKR) (12/12/2024 3:51 AM EDT) WBC 16.1(H) 4.2 - 9.1 K/ L 12/12/2024 4:46 AM EDT [facility] RBC 2.60(L) 4.63 - 6.08 M/ L 12/12/2024 4:46 AM EDT [facility] Hemoglobin 8.2(L) 13.7 - 17.5 GM/DL 12/12/2024 4:46 AM EDT [facility] Hematocrit 25.8(L) 40.1 - 51.0 % 12/12/2024 4:46 AM EDT [facility] MCV 99(H) 79 - 92 fL 12/12/2024 4:46 AM EDT [facility] MCH 31.5 25.7 - 32.2 pg 12/12/2024 4:46 AM EDT [facility] MCHC 31.8(L) 32.3 - 36.5 GM/DL 12/12/2024 4:46 AM EDT [facility] RDW 14.8(H) 11.6 - 14.4 % 12/12/2024 4:46 AM EDT [facility] Platelets 168 140 - 375 K/CU MM 12/12/2024 4:46 AM EDT [facility] MPV 9.7 9.4 - 12.4 fL 12/12/2024 4:46 AM EDT [facility] Blood Venipuncture / Unknown 12/12/2024 3:51 AM EDT 12/12/2024 4:35 AM EDT us Aneudy Fitch PA-C LAB BLOOD ORDERABLES Final Res ult Performing Organization Address [facility]/ZIP Co de Phone Number [facility] [address] [phone] * (ABNORMAL) Iron and TIBC (12/12/2024 3:51 AM EDT) Iron 11(L) 65 - 175 ug/dL 12/12/2024 10:35 AM EDT [facility] TIBC 183(L) 250 - 435 ug/dL 12/12/2024 10:35 AM EDT [facility] % Saturation 6 % 12/12/2024 10:35 AM EDT [facility] UIBC 172 12/12/2024 10:35 AM EDT [facility] Blood Venipuncture / Unknown 12/12/2024 3:51 AM EDT 12/12/2024 4:38 AM EDT us Maria Guadalupe Lopez MD LAB BLOOD ORDERABLES Final Re sult [facility] [address] [phone] * (ABNORMAL) Ferritin (12/12/2024 3:51 AM EDT) Ferritin 474.71(H) 21.81 - 274.66 ng/mL 12/12/2024 10:35 AM EDT [facility] Blood Venipuncture / Unknown 12/12/2024 3:51 AM EDT 12/12/2024 4:38 AM EDT Maria Guadalupe Lopze MD LAB BLOOD ORDERABLES Final Re sult Performing Organization Address [facility]/ZIP Co de Phone Number [facility] [address] [phone] * Vitamin B12 (12/12/2024 3:51 AM EDT) Vitamin B12 439 213 - 816 pg/mL 12/12/2024 10:35 AM EDT [facility] Blood Venipuncture / Unknown 12/12/2024 3:51 AM EDT 12/12/2024 4:38 AM EDT Maria Guadalupe Lopez MD LAB BLOOD ORDERABLES Final Re sult Performing Organization Address [facility]/ZIP Co de Phone Number [facility] [address] [phone] from Last 3 Months Insurance Field Dailies MEDICARE PPO [employer] MEDICARE PPO Advance Directives For more information, please contact: [phone] * DNR - Limited Additional Intervention (Latest Code Status on File) Date Activated Date Inactivated Comments 12/11/2024 4:28 PM 12/14/2024 3:42 PM Care Teams Core Sticker Relationship Specialty Start Date End Date Eladio Lomas MD [address] [facility] [address] [place] [address] Medical Oncologist Hematology and Oncology 07/08/22 Breanna Crow PACecilia [address] [place] [address] [address] [place] [address] Physician Ostrich Farmer Oncology 07/08/22
--- OUTSIDE RECORDS SUMMARY | 2024-12-26 08:50 | XMS_ITS | Encounter Summary ---
Author Organization [employer] ([place], [place], [place], [place]) Address [address] [place] [address] Care Team Providers Care Attacher Name Role Phone Eladio Lomas MD Unavailable Breanna Crow PA-C Unavailable [phone] Encounter Details Date Type Department Care Team (Late st Contact Info) Description 10/15/2021 Transcribed Document [facility] Family Medicine [address] [place] [address] ProviderJailyn MD [address] [place], [...] Ata rded Speak language other than South Korean at home Not on file 05/13/2023 [...] Description 01/23/2025 11:00 AM EDT Office Visit [facility] Neurology - [address] [facility] [address] [place] [address] Matilda Arita APRN 1021 [facility] [address] [place] [address] 01/28/2025 9:45 AM EDT Office Visit [facility] Electrophysiology [address] [place] [address] [place] [address] [place] [address] [address] [place] [address] documented as of this encounter Visit Diagnoses Not on filedocumented in this encounter Care Teams Attacher Relationship Specialty Start Date End Date Eladio Lomas MD 1210 [facility] [address] [place] [address] Medical Oncologist Hematology and Oncology 07/08/22 Breanna Crow PA-C 3470 [facility] [address] [place] [address] Physician Rig Supervisor Oncology 07/08/22 documented as of this encounter
--- OUTSIDE RECORDS SUMMARY | 2024-12-26 08:50 | XMS_ITS | Encounter Summary ---
Author Organization [employer] ([place], [place], [place], [place]) Address [address] [place] [address] Care Team Providers Care Special Education Itinerant Teacher Name Role Phone Eladio Lomas MD Unavailable Breanna Crow PA-C Unavailable [phone] Encounter Details Date Type Department Care Team (Late st Contact Info) Description 12/29/[address] [facility] Family Medicine [address] [place] [address] ProviderJailyn MD [address] [place] [address] Social History Tobacco Use Types [...] 12/29/2021 10:30 EDT Electronically signed by Huy [facility] Conversion Electronic Equipment Repairmen Cerner at 08/17/2022 6:19 PM CDT documented in this encounter Plan of Treatment Upcoming Encounters Date Type Department Care Team (Late st Contact Info) Description 01/23/2025 11:00 AM EDT Office Visit [facility] Neurology - [address] 1021 [facility] [address] [place] [address] Matilda Arita APRN 1021 [facility] 200 [place] [address] 01/28/2025 9:45 AM EDT Office Visit [facility] Electrophysiology [address] [place] [address] Phuong Lewis MD 1401 [facility] [address] [place] [address] documented as of this encounter Visit Diagnoses Not on filedocumented in this encounter Care Teams Special Education Itinerant Teacher Relationship Specialty Start Date End Date Eladio Lomas MD 1210 [facility] [address] [place] [address] Medical Oncologist Hematology and Oncology 07/08/22 Breanna Crow PACecilia 3470 [facility] [address] [place] [address] Physician Student Education Specialist Oncology 07/08/22 documented as of this encounter
--- OUTSIDE RECORDS SUMMARY | 2024-12-26 08:50 | XMS_ITS | Encounter Summary ---
Author Organization [employer] ([place], [place], [place], [place]) Address [address] [place] [address] Care Team Providers Care Ballet Professor Name Role Phone Eladio Lomas MD Unavailable Breanna Crow PA-C Unavailable [phone] Encounter Details Date Type Department Care Team (Late st Contact Info) Description 10/15/2021 Transcribed Document [facility] Family Medicine [address] [place] [address] ProviderJailyn MD [address] [place] [address] Social History Tobacco Use Types [...] any clubs o r organizations such as advent groups, unions, fraternal or athletic groups, or [...] - Medical Enoxaparin 40 mg, SubCutaneous, Inj, K79ENdi, Routine, Start 10/15/21 7:00:00 EDT, 10/15/21 6:07:00 [...] ALYC # 4 K/uL 10/15/2021 00:19 EDT [place] Percent Man 19 % (High) 10/15/2021 00:19 EDT RBC Morphology Normal 10/15/2021 00:[address] Estimate Adequate 10/15/2021 00:19 EDT Sed Rate Auto 5 mm/Hr 10/15/2021 00:19 EDT Slide Review Add Diff 10/15/2021 00:19 EDT D Dimer Quant 1039 ng/mL (High) 10/15/2021 00:19 EDT Additional Documentation Code Status Start: 10/15/21 5:38:00 EDT, DNR Full Treatment-No Intubation/No ACLS, Continuous Order Electronically signed by [facility], [facility] Conversion General Operations Manager Cerner at 08/17/2022 5:58 PM CDT documented in this encounter Plan of Treatment Upcoming Encounters Date Type Department Care Team (Late st Contact Info) Description 01/23/2025 11:00 AM EDT Office Visit [facility] Neurology - [address] [address] Matilda Arita, ESPERANZA 1021 [facility] 200 [place] [address] 01/28/2025 9:45 AM EDT Office Visit [facility] Electrophysiology [address] [place] [address] Phuong Lewis MD 1401 [facility] [address] [place], [place] [id number] documented as of this encounter Visit Diagnoses Not on filedocumented in this encounter Care Teams Ballet Professor Relationship Specialty Start Date End Date Eladio Lomas MD 1210 [facility] [address] [place] [address] Medical Oncologist Hematology and Oncology 07/08/22 Breanna Crow, PA-C 3470 [facility] [address] [place] [address] Physician Business Objects Consultant Oncology 07/08/22 documented as of this encounter
--- OUTSIDE RECORDS SUMMARY | 2024-12-26 08:50 | XMS_ITS | Encounter Summary ---
Author Organization [employer] ([place], [place], [place], [place]) Address [address] [place] [address] Care Team Providers Care Hair Boiler Name Role Phone Eladio Lomas MD Unavailable Breanna Crow PA-C Unavailable [phone] Encounter Details Date Type Department Care Team (Late st Contact Info) Description 10/15/2021 Transcribed Document [facility] Family Medicine [address] [place] [address] ProviderJailyn MD [address] [place] [address] Social History Tobacco Use Types [...] any clubs o r organizations such as confucianist groups, unions, fraternal or athletic groups, or [...] & time 10/15/2021 00:00:00, Voice recognition / operations associate technology used for some documentation in this [...] CATH WINJX HRT ART& L VENTR IMG ([id number]).. Family history: Not significant. Social history: Social [...] EDT Height Source Stated Height Entry Format [place] Height/Length, [place] (ft) 5 ft Height/Length [place] 6 Inch CLINICALHEIGHT 167.64 cm [place] Body Weight 62.88 kg Weight Source, ED Critical estimated dosing weight Weight Entry Format [place] Weight Israeli lb 180 lb CLINICALWEIGHT 81.82 kg Body [...] Triage: ED C-SSRS: ED Clinical Reconciliation: ED order checker packer processer: ESR Sedimentation Rate Auto: Saline Lock Insert: [...] SEX: 1950 / Male MRN / ACC#: [id number] / [id number] ORDERING PHYSICIAN: Matt Whitman. EXAM REQUESTED: [id number]--FX LUMBAR SPINE W/O CONTRAST FACILITY: [facility] DATE: 10/15/2021 RADIOLOGIST NAME: MD [...] understanding of instructions. Electronically signed by Huy [facility] Conversion Sql Server Dba Developer Cerner at 08/17/2022 6:02 PM CDT documented in this encounter Plan of Treatment Upcoming Encounters Date Type Department Care Team (Late st Contact Info) Description 01/23/2025 11:00 AM EDT Office Visit [facility] Neurology - [address] 1021 [facility] [address] [place] [address] Matilda Arita APRN 1021 [facility] [address] [place] [address] 01/28/2025 9:45 AM EDT Office Visit [facility] Electrophysiology [address] [place] [address] [place] [address] [place] [address] [address] [place], [place] [id number] documented as of this encounter Visit Diagnoses Not on filedocumented in this encounter Care Teams Hair Boiler Relationship Specialty Start Date End Date Eladio Lomas MD 1210 [facility] [address] [place] [address] Medical Oncologist Hematology and Oncology 07/08/22 Breanna Crow, PA-C 3470 [facility] [address] [place] [address] Physician Dry Cell Assembly Supervisor Oncology 07/08/22 documented as of this encounter
--- OUTSIDE RECORDS SUMMARY | 2024-12-26 08:50 | XMS_ITS | Encounter Summary ---
Author Organization [email or web address] ([place], [place], [place], [place]) Address [address] [place] [address] Care Team Providers Care Lathe Setup Operator Name Role Phone Eladio Lomas MD Unavailable Breanna Crow PA-C Unavailable [phone] Encounter Details Date Type Department Care Team (Late st Contact Info) Description 10/19/2021 Transcribed Document [facility] Family Medicine [address] [place] [address] ProviderJailyn MD [address] [place] [address] Social History Tobacco Use Types [...] Performed On: 10/19/2021 13:08 EDT by KEI JEAN-BAPTISTE, Tactical Air Control Party Manager Primary Insurance Authorization Authorization and Policy Numbers : Insurance 1 Health Plan: [employer] CHOICE PPO Policy Number: [id number] Authorization Number: Insurance Primary Name : [employer] CHOICE PPO [id number] Authorization Status-Primary : Denied Reference Number-Primary : [id number] Authorized Service Begin Date-Primary : 10/15/2021 EDT Authorization Comments-Primary : Rec faxed Denial from [employer] 10/19/21 Placed in tray on JJs desk Historical Authorization Comments-Primary : Comment 1: [employer] CHOICE PPO auth still pending per availity (JUANITA HGUO, SHARYN-Utilization Review 10/19/2021 11:01) Comment 2: Clinicals faxed via [employer] (Natalie Lauren, Rn-Utilization Review 10/15/2021 09:30) Comment 3: [employer] CHOICE PPO auth pending per [facility] note. (JUANITA HUGO, RN-Utilization Review 10/15/2021 09:18) KEI JEAN-BAPTISTE, Tactical Air Control Party Manager - 10/19/2021 13:08 EDT Electronically signed by Huy [facility] Conversion Golf Club Head Inspector Cerner at 08/17/2022 6:16 PM CDT documented in this encounter Plan of Treatment Upcoming Encounters Date Type Department Care Team (Late st Contact Info) Description 01/23/2025 11:00 AM EDT Office Visit [facility] Neurology - [place] [address] [phone] Matilda Arita APRN [address] [place] [address] 01/28/2025 9:45 AM EDT Office Visit [facility] Electrophysiology [address] [place] [address] Phuong Lewis MD 1401 [facility] [address] [place] [address] documented as of this encounter Visit Diagnoses Not on filedocumented in this encounter Care Teams Lathe Setup Operator Relationship Specialty Start Date End Date Eladio Lomas MD 1210 [facility] [address] [place] [address] Medical Oncologist Hematology and Oncology 07/08/22 Breanna Crow, PACecilia 4160 [facility] 300 [place] [address] Physician Physician Vice President Oncology 07/08/22 documented as of this encounter
--- OUTSIDE RECORDS SUMMARY | 2024-12-26 08:50 | XMS_ITS | Encounter Summary ---
Author Organization [employer] ([place], [place], [place], [place]) Address [address] [place] [address] Care Team Providers Care Configuration Technician Name Role Phone Eladio Lomas MD Unavailable Breanna Crow PA-C Unavailable [phone] Encounter Details Date Type Department Care Team (Late st Contact Info) Description 10/15/2021 Transcribed Document [facility] Family Medicine [address] [place] [address] ProviderJailyn MD [address] [place] [address] Social History Tobacco Use Types [...] Date Ata rded Speak language other than Croatian at home Not on file 05/13/2023 Want [...] Health Plan: [employer] CHOICE PPO Policy Number: [id number] Authorization Number: Insurance Primary Name : MAIKOL VERNON PPO [id number] Authorization Status-Primary : Awaiting callback Reference Number-Primary : [id number] Authorized Service Begin Date-Primary : 10/15/2021 EDT Authorization Comments-Primary : Clinicals faxed via [facility] Historical Authorization Comments-Primary : Comment 1: [employer] CHOICE PPO auth pending per [facility] note. (JUANITA HUGO RN-Utilization Review 10/15/2021 09:18) Natalie Lauren Rn-Utilization Review - 10/15/2021 9:30 EDT Electronically signed by Huy [facility] Conversion House Carpenter Helper Cerner at 08/17/2022 5:57 PM CDT documented in this encounter Plan of Treatment Upcoming Encounters Date Type Department Care Team (Late st Contact Info) Description 01/23/2025 11:00 AM EDT Office Visit [facility] Neurology - [facility] [address] [address] Matilda Arita APRN [address] [place] [address] [address] [place] [address] 01/28/2025 9:45 AM EDT Office Visit [facility] Electrophysiology [address] [place] [address] [place] [address] [place] [address] [address] [place], [place] [id number] documented as of this encounter Visit Diagnoses Not on filedocumented in this encounter Care Teams Configuration Technician Relationship Specialty Start Date End Date Eladio Lomas MD 1210 [facility] [address] [place] [address] Medical Oncologist Hematology and Oncology 07/08/22 Breanna Crow, PA-C 3470 [facility] [address] [place] [address] Physician Automotive Brake Adjuster Oncology 07/08/22 documented as of this encounter
--- OUTSIDE RECORDS SUMMARY | 2024-12-26 08:50 | XMS_ITS | Encounter Summary ---
Author Organization [employer] ([place], [place], [place], [place]) Address [address] [place] [address] Care Team Providers Care Director Of Flight Operations Name Role Phone Eladio Lomas MD Unavailable Breanna Crow PA-C Unavailable [phone] Encounter Details Date Type Department Care Team (Late st Contact Info) Description 10/15/2021 Transcribed Document [facility] Family Medicine [address] [place] [address] ProviderJailyn MD [address] [place] [address] Social History Tobacco Use [...] EDT Electronically signed by [facility], [facility] Conversion Geospatial Engineer Cerner at 08/17/2022 6:13 PM CDT documented in this encounter Plan of Treatment Upcoming Encounters Date Type Department Care Team (Late st Contact Info) Description 01/23/2025 11:00 AM EDT Office Visit [facility] Neurology - [facility] [address] [address] Matilda Arita APRN 1021 [facility] 200 [place] [address] 01/28/2025 9:45 AM EDT Office Visit [facility] Electrophysiology [address] [place] [address] Phuong Lewis MD 1401 [facility] [address] [place], [place] [phone] documented as of this encounter Visit Diagnoses Not on filedocumented in this encounter Care Teams Director Of Flight Operations Relationship Specialty Start Date End Date Eladio Lomas MD [address] [facility] [address] [place] [address] Medical Oncologist Hematology and Oncology 07/08/22 Breanna Crow PACecilia 3470 [facility] [address] [place], [place] [address] Physician Hydraulic Corrugating Machine Operator Oncology 07/08/22 documented as of this encounter
--- OUTSIDE RECORDS SUMMARY | 2024-12-26 08:50 | XMS_ITS | Encounter Summary ---
Author Organization Healthcare Address [address] [place] [address] Care Team Providers Care Still Cleaner Tube Name Role Phone Per Patient, None Primary Care Provider Unavaila ble Encounter Details Date Type Department Care Team (Late st Contact Info) Description 01/07/2021 Orders Only [facility] [address] [place] [address] Maurisio Aguilar MD [address] [address] Social History Tobacco Use Types [...] External Glucose 99 74 - 100 mg/dL [facility] External BUN 16 6 - 20 mg/dL [facility] External Creatinine Blood 0.93 0.70 - 1.28 mg/dL [facility] External BUN/Creat Ratio 17 10 - 20 (calc) [facility] External Sodium 141 136 - 145 mmol/L [facility] External Potassium 4.2 3.4 - 5.0 mmol/L [facility] External Chloride 102 98 - 107 mmol/L [facility] External Carbon Dioxide 25 22 - 31 mmol/L [facility] External Anion Gap (AG) 14 7 - 25 (calc) [facility] External Calcium 9.4 8.6 - 10.2 mg/dL [facility] External Total Protein 7.0 6.4 - 8.3 g/dL [facility] External Albumin 4.8 3.5 - 5.2 g/dL [facility] External Globulin 2.2 1.5 - 4.5 g/dL (calc) [facility] External Albumin/Globulin Ratio 2.2 1.1 - 2.5 (calc) [facility] External Bilirubin Total 0.4 0.1 - 1.2 mg/dL [facility] External Alkaline Phosphatase 85 40 - 129 U/L [facility] External AST (SGOT) 22 0 - 40 U/L [facility] External ALT (SGPT) 19 0 - 41 U/L [facility] External EGFR (If AFR/AM) 94 >=60 [facility] External Estimated GFR 81 >=60 [facility] Comment: NOTE Chronic kidney [...] MD LAB BLOOD ORDERABLES Final Res ult [facility] [address] [place] [address], [place] [phone] documented in this encounter Visit Diagnoses Not on filedocumented in this encounter Care Teams Still Cleaner Tube Relationship Specialty Start Date End Date Per Patient, [place] [address] PCP - General 05/02/20 documented as of this encounter
--- OUTSIDE RECORDS SUMMARY | 2024-12-26 08:50 | XMS_ITS | Encounter Summary ---
Author Organization [employer] ([place], [place], [place], [place]) Address [address] [place] [address] Care Team Providers Care Equipment Planner Name Role Phone Eladio Lomas MD Unavailable Breanna Crow PA-C Unavailable [phone] Encounter Details Date Type Department Care Team (Late st Contact Info) Description 10/20/2021 Transcribed Document [facility] Family Medicine [address] [place] [address] ProviderJailyn MD [address] [place] [address] Social History Tobacco Use [...] Date Ata rded Speak language other than Mosotho at home Not on file 05/13/2023 Want [...] Health Plan: [employer] CHOICE PPO Policy Number: [id number] Authorization Number: Insurance Primary Name : [employer] CHOICE PPO [id number] Authorization Status-Primary : Denied Reference Number-Primary : [id number] Authorized Service Begin Date-Primary : 10/15/2021 EDT Authorization Comments-Primary : Emailed denial to [employer] Historical Authorization Comments-Primary : Comment 1: Rec faxed Denial from [employer] 10/19/21 Placed in tray on [employer] desk (KEI JEAN-BAPTISTE, Cyber Transport Systems Specialist 10/19/2021 13:08) Comment 2: [employer] CHOICE PPO [...] Description 01/23/2025 11:00 AM EDT Office Visit [facility] Neurology - [address] [facility] [address] [address] Matilda Arita APRN [address] [place] [address] [address] [place] [address] 01/28/2025 9:45 AM EDT Office Visit [facility] Electrophysiology [address] [place] [address] [place] [address] [place] [address] [address] [place] [phone] documented as of this encounter Visit Diagnoses Not on filedocumented in this encounter Care Teams Equipment Planner Relationship Specialty Start Date End Date Eladio Lomas MD 1210 [facility] [address] [address] Medical Oncologist Hematology and Oncology 07/08/22 Breanna Crow PA-C [address] [place] [id number] Physician Landscaping Manager Oncology 07/08/22 documented as of this encounter
--- OUTSIDE RECORDS SUMMARY | 2024-12-26 08:50 | XMS_ITS | Encounter Summary ---
Author Organization Healthcare Address [address] [place] [address] Care Team Providers Care Naprapath Name Role Phone Per Patient, None Primary Care Provider Unavaila ble Encounter Details Date Type Department Care Team (Late st Contact Info) Description 01/07/2021 Orders Only [facility] at [facility] [address] [place] [address] Maurisio Aguilar MD [address] [address] Social History Tobacco Use Types [...] WBC 6.9 3.8 - 10.8 K/uL [facility] External Red Blood Cell (RBC) 5.24 4.20 - 5.80 M/uL [facility] External Hemoglobin 15.5 14.0 - 18.0 G/DL [facility] External Hematocrit 44.1 40.0 - 52.0 % [facility] External MCV 84 80 - 100 fL [facility] External MCH 30 26 - 35 PG [facility] External MCHC 35 32 - 36 G/DL [facility] External RDW 13.5 11.0 - 15.0 % [facility] External Mean Platelet Volume 7.6 6.2 - 10.5 fL [facility] External Platelets 162 130 - 400 K/uL [facility] External Neutrophil# 3.0 1.6 - 8.4 K/uL [facility] External Lymphocyte# 3.2 0.4 - 5.1 K/uL [facility] External Absolute Monocyte (Abs Steele) 0.4 0.0 - 1.2 K/uL [facility] External Eosinophils# 0.1 0.0 - 0.8 K/uL [facility] External Baso# 0.0 0.0 - 0.3 K/uL [facility] External Neutrophils % 43.0 42.0 - 78.0 % [facility] External Lymphocyte % 46.0 11.0 - 47.0 % [facility] External Monocyte % 6.0 0.0 - 11.0 % [facility] External Eosinophil% 1.0 0.0 - 7.0 % [facility] External Basophil % 0.0 0.0 - 3.0 % [facility] External Nucleated RBC%-Auto 0.2 0.0 - 0.9 % [facility] External Nucleated RBC Absolute 0.01 Not Estab. K/uL [facility] 01/07/2021 10:0 5 AM EDT 01/07/2021 10:20 AM EDT us Maurisio Aguilar MD LAB BLOOD ORDERABLES Final Res ult Performing Organization Address City/State/[facility] Co de Phone Number [facility] [address] [place] [phone], documented in this encounter Visit Diagnoses Not on filedocumented in this encounter Care Teams Naprapath Relationship Specialty Start Date End Date Per Patient, [place] [address] PCP - General 05/02/20 documented as of this encounter
--- OUTSIDE RECORDS SUMMARY | 2024-12-26 08:50 | XMS_ITS | Encounter Summary ---
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 ACCOUNT MANAGER, eating ~50% of what he typically [...] Meds: benadryl, lovenox, Pepcid, KCl GI: LBM TERRITORY ACCOUNT MANAGER, +BS Skin: no skin breakdown noted, [...] Energy Balance Related to : decreased appetitie TERRITORY ACCOUNT MANAGER Energy Balance as Evidenced by : [...] Description 01/23/2025 11:00 AM EDT Office Visit [facility] Neurology - [address] [facility] [address] [place] [address] Matilda Arita APRN [address] [facility] [address] [place] [address] 01/28/2025 9:45 AM EDT Office Visit [facility] Electrophysiology [address] [place] [address] Phuong Lewis MD 1401 [facility] [address] [place], [place] [phone] documented as of this encounter Visit Diagnoses Not on filedocumented in this encounter Care Teams Oracle Pl Sql Developer Relationship Specialty Start Date End Date Eladio Lomas MD 1210 [facility] [address] [place] [address] Medical Oncologist Hematology and Oncology 07/08/22 Breanna Crow PA-C [address] [facility] [address] [place], [place] [phone] Physician Diaper Machine Tender Oncology 07/08/22 documented as of this encounter
--- OUTSIDE RECORDS SUMMARY | 2024-12-26 08:50 | XMS_ITS | Encounter Summary ---
Author Organization [employer] ([place], [place], [place], [place]) Address [address] [place] [address] Care Team Providers Care Fire Crew Specialist Name Role Phone Eladio Lomas MD Unavailable Breanna Crow PA-C Unavailable [phone] Encounter Details Date Type Department Care Team (Late st Contact Info) Description 12/29/2021 Transcribed Document [facility] [address] [place] [address] ProviderJailyn MD [address] [place] [address] Social History Tobacco Use Types [...] Provider, - 12/29/2021 11:00 AM CDT Patient: CORBIN HU Age: 71 [...] MVP - pt has not seen a machinery erector 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 Pt denies [...] # 7.60 K/uL (High) 12/29/2021 10:31 EDT Rains % 14.8 % (High) 12/29/2021 10:31 EDT Rains # 2.11 K/uL (High) 12/29/2021 10:31 EDT [...] pending Cotinine - pending Electronically signed by Huy, [facility] Conversion Inventory Specialist Cerner at 08/17/2022 6:07 PM CDT documented in this encounter Plan of Treatment Upcoming Encounters Date Type Department Care Team (Late st Contact Info) Description 01/23/2025 11:00 AM EDT Office Visit [facility] Neurology - [address] [facility] [address] [place] [address] Matilda Arita, ESPERANZA 10[address] [facility] [address] [place] [address] 01/28/2025 9:45 AM EDT Office Visit [facility] Electrophysiology [address] [place] [address] Phuong Lewis MD 1401 [facility] [address] [place] [phone] documented as of this encounter Visit Diagnoses Not on filedocumented in this encounter Care Teams Fire Crew Specialist Relationship Specialty Start Date End Date Eladio Lomas MD 1210 [facility] [address] [place] [address] Medical Oncologist Hematology and Oncology 07/08/22 Breanna Crow PACecilia 34[address] [facility] [address] [place], [place] [address] Physician Personnel Interviewer Oncology 07/08/22 documented as of this encounter
--- OUTSIDE RECORDS SUMMARY | 2024-12-26 08:50 | XMS_ITS | Clinical Summary ---
[facility] Address [address] [place] [address] Care Team Providers Care Pre K Teacher Name Role Phone Provider, No Known Primary [...] 02/05/2021, , 01/17/2020, Additional history exists Insurance [facility] MEDICARE ADVANTAGE Care Teams Pre K Teacher Relationship Specialty Start Date End Date Provider, No Known [facility] [place] [address] PCP - General 10/07/21
--- OUTSIDE RECORDS SUMMARY | 2024-12-26 08:50 | XMS_ITS | Encounter Summary ---
Author Organization [employer] ([place], [place], [place], [place]) Address [address] [place] [address] Care Team Providers Care Verse Writer Name Role Phone Eladio Lomas MD Unavailable Breanna Crow PA-C Unavailable [phone] Encounter Details Date Type Department Care Team (Late st Contact Info) Description 10/19/2021 Transcribed Document [facility] [place] [address] [place] [address] ProviderJailyn MD [address] [place] [address] Social History Tobacco Use Types [...] Date Ata rded Speak language other than Zimbabwean at home Not on file 05/13/2023 Want [...] Health Plan: [employer] PPO Policy Number: [id number] Authorization Number: Insurance Primary Name : [employer] PPO [id number] Authorization Status-Primary : Awaiting callback Reference Number-Primary : [id number] Authorized Service Begin Date-Primary : 10/15/2021 EDT Authorization Comments-Primary : [employer] PPO auth still pending per availity Historical Authorization Comments-Primary : Comment 1: Clinicals faxed via [employer] (Natalie Lauren, Rn-Utilization Review 10/15/2021 09:30) Comment 2: [employer] PPO auth pending per [facility] note. (JUANITA HUGO, SHARYN-Utilization Review 10/15/2021 09:18) JUANITA HUGO RN-Utilization Review - 10/19/2021 11:01 EDT documented in this encounter Plan of Treatment Upcoming Encounters Date Type Department Care Team (Late st Contact Info) Description 01/23/2025 11:00 AM EDT Office Visit [facility] Neurology - [address] 10[address] [facility] 200 [place] [address] Matilda Arita APRN 1021 [facility] [address] [place] [address] 01/28/2025 9:45 AM EDT Office Visit [facility] Electrophysiology [address] [place] [phone] Phuong Lewis MD 1401 [facility] [address] [place] [address] documented as of this encounter Visit Diagnoses Not on filedocumented in this encounter Care Teams Verse Writer Relationship Specialty Start Date End Date Eladio Lomas MD 1210 [facility] [address] [place] [address] Medical Oncologist Hematology and Oncology 3/9/23 Breanna Crow PA-C [address] [place] [address] Physician Washer Assembler Oncology 07/08/22 documented as of this encounter
--- OUTSIDE RECORDS SUMMARY | 2024-12-26 08:50 | XMS_ITS | Encounter Summary ---
Author Organization [employer] ([place], [place], [place], [place]) Address [address] [place] [address] Care Team Providers Care Hardwood Floor Finisher Name Role Phone Eladio Lomas MD Unavailable Breanna Crow PA-C Unavailable [phone] Encounter Details Date Type Department Care Team (Late st Contact Info) Description 10/15/2021 Transcribed Document [facility] [place] Medicine [address] [place] [address] ProviderJailyn MD [address] [place] [address] Social History Tobacco Use Types [...] Date Ata rded Speak language other than Kosovan at home Not on file 05/13/2023 Want [...] Health Plan: [employer] CHOICE PPO Policy Number: [id number] Authorization Number: Insurance Primary Name : MAIKOL VERNON PPO [id number] Authorization Status-Primary : Pending Reference Number-Primary : [id number] Authorized Service Begin Date-Primary : 10/15/2021 EDT Historical Authorization Comments-Primary : Comment 1: [employer] PPO auth pending per Star note. (JUANITA HUGO RN-Utilization Review 10/15/2021 09:18) Natalie Lauren Rn-Utilization Review - 10/15/2021 9:29 EDT documented in this encounter Plan of Treatment Upcoming Encounters Date Type Department Care Team (Late st Contact Info) Description 01/23/2025 11:00 AM EDT Office Visit [facility] Neurology - [address] 10[address] [facility] 200 [place] [address] Matilda Arita APRN 1021 [facility] 200 [place] [address] 01/28/2025 9:45 AM EDT Office Visit [facility] Electrophysiology [address] [place] [address] [place] [address] [place] [address] [address] [place] [address] documented as of this encounter Visit Diagnoses Not on filedocumented in this encounter Care Teams Hardwood Floor Finisher Relationship Specialty Start Date End Date Eladio Lomas MD 1210 [facility] [address] [place] [address] Medical Oncologist Hematology and Oncology 07/08/22 Breanna Crow, PARebelC [address] [facility] [address] [place] [address] Physician Chief Technician X Ray Oncology 07/08/22 documented as of this encounter
--- OUTSIDE RECORDS SUMMARY | 2024-12-26 08:50 | XMS_ITS | Encounter Summary ---
Author Organization [employer] ([place], [place], [place], [place]) Address [address] [place] [address] Care Team Providers Care Ball Truing Machine Operator Name Role Phone Eladio Lomas MD Unavailable Breanna Crow PA-C Unavailable [phone] Encounter Details Date Type Department Care Team (Late st Contact Info) Description 10/15/2021 Transcribed Document [facility] [place] [address] [place] [address] ProviderJailyn MD [address] [place] [address] Social History Tobacco Use Types [...] rded Speak language other than Citizen [place] at home Not on file 05/13/2023 Want [...] Description 01/23/2025 11:00 AM EDT Office Visit [facility] Neurology - [address] [place] [address] Matilda Arita APRN 1021 [facility] [address] [place] [address] 01/28/2025 9:45 AM EDT Office Visit [facility] Electrophysiology [address] [place] [address] [place] [address] [place] [address] [address] [place], [place] [phone] documented as of this encounter Visit Diagnoses Not on filedocumented in this encounter Care Teams Ball Truing Machine Operator Relationship Specialty Start Date End Date Eladio Lomas MD 1210 [facility] [address] [place] [address] Medical Oncologist Hematology and Oncology 07/08/22 Breanna Crow PA-C 3470 [facility] [address] [place], [place] [address] Physician Ground Support Equipment Assembler Oncology 07/08/22 documented as of this encounter
--- OUTSIDE RECORDS SUMMARY | 2024-12-26 08:50 | XMS_ITS | Encounter Summary ---
Author Organization [employer] ([place], [place], [place], [place]) Address [address] [place] [address] Care Team Providers Care Surgical Asst Name Role Phone Eladio Lomas MD Unavailable Breanna Crow PA-C Unavailable [phone] Encounter Details Date Type Department Care Team (Late st Contact Info) Description 10/15/2021 Transcribed Document [facility] [place] Medicine [address] [place] [address] ProviderJailyn MD [address] [place] [...] Office Visit [facility] Neurology - [address] [facility] [address] [place] [address] Matilda Arita APRN 1021 [facility] [address] [place] [address] 01/28/2025 9:45 AM EDT Office Visit [facility] Electrophysiology [address] [place] [address] [place] [address] [place] [address] [address] [place], [place] [phone] documented as of this encounter Visit Diagnoses Not on filedocumented in this encounter Care Teams Surgical Asst Relationship Specialty Start Date End Date Eladio Lomas MD 1210 [facility] [address] [place] [address] Medical Oncologist Hematology and Oncology 07/08/22 Breanna Crow PA-C [address] [facility] [address] [place], [place] [address] Physician Placement Assistant Oncology 07/08/22 documented as of this encounter
--- OUTSIDE RECORDS SUMMARY | 2024-12-26 08:50 | XMS_ITS | Encounter Summary ---
Author Organization [employer] ([place], [place], [place], [place]) Address [address] [place] [address] Care Team Providers Care Paint Coating Machine Operator Name Role Phone Eladio Lomas MD Unavailable Breanna Crow PA-C Unavailable [phone] Encounter Details Date Type Department Care Team (Late st Contact Info) Description 10/26/2021 Transcribed Document [facility] [place] [address] [place] [address] ProviderJailyn MD [address] [place] [address] Social History Tobacco Use Types [...] in H and P on 10/15/2021 by CANDDIA Hinds [ X ] Numbness Documented in [...] Discharge Summary on 10/18/2021 by Wilberto Brantley CDS/Heading Pinner Signature: Gui Hughes. Mehreen Phone #: Date/Time: 10/27/2021 00:42 This is a permanent part of the Medical Record Q55 2020 [employer] Reviewed: 07/2020 Q55 2020 [employer] Reviewed: 07/2020 Electronically signed by Huy, [facility] Conversion Operational Risk Consultant Cerner at 08/17/2022 6:04 PM CDT documented in this encounter Plan of Treatment Upcoming Encounters Date Type Department Care Team (Late st Contact Info) Description 01/23/2025 11:00 AM EDT Office Visit [facility] Neurology - [address] [place] [address] Matilda Arita APRN [address] [place] [address] 01/28/2025 9:45 AM EDT Office Visit [facility] Electrophysiology [address] [place] [phone] [place] [address] [place] [address] [address] [place] [phone] documented as of this encounter Visit Diagnoses Not on filedocumented in this encounter Care Teams Paint Coating Machine Operator Relationship Specialty Start Date End Date Eladio Lomas MD 1210 [facility] [address] [place] [address] Medical Oncologist Hematology and Oncology 07/08/22 Breanna Crow PA-C [address] [facility] [address] [place], [place] [phone] Physician Visualization Developer Oncology 07/08/22 documented as of this encounter
--- OUTSIDE RECORDS SUMMARY | 2024-12-26 08:50 | XMS_ITS | Encounter Summary ---
Author Organization [facility] Address [address] [place] [address] Care Team Providers Care Healthcare Administration Internship Name Role Phone Per Patient, None Primary Care Provider Unavaila ble Encounter Details Date Type Department Care Team (Late st Contact Info) Description 01/07/2021 Orders Only [facility] [address] [place] [address] Maurisio Aguilar MD [address] [address] Social History Tobacco Use Types [...] Band Neutrophil% 0.0 0.0 - 7.0 % [facility] External Atypical Lymph% 4(H) 0 - 1 % [facility] External Metamyelocyte % 0 0 - 1 % [facility] External Myelocyte % 0 0 - 1 % [facility] External Promyelocyte% 0 % [facility] External Blast% 0 % [facility] External Nucleated RBC%-Manual 0 /100 WBC [facility] External Smudge Cells 0 [facility] External Platelet Morphology NORMAL [facility] External Ovalocytes SLIGHT(A) [facility] External Tear Drop Cells SLIGHT(A) [facility] 01/07/2021 10:0 5 AM EDT 01/07/2021 10:20 AM EDT us Maurisio Aguilar MD LAB BLOOD ORDERABLES Final Res ult Performing Organization Address City/State/[facility] Co de Phone Number [facility] [address] [place] [address], documented in this encounter Visit Diagnoses Not on filedocumented in this encounter Care Teams Healthcare Administration Internship Relationship Specialty Start Date End Date Per Patient, [place] [address] PCP - General 05/02/20 documented as of this encounter
--- OUTSIDE RECORDS SUMMARY | 2024-12-26 08:50 | XMS_ITS | Encounter Summary ---
Author Organization [employer] ([place], [place], [place], [place]) Address [address] [place] [address] Care Team Providers Care Inspector Advanced Composite Name Role Phone Eladio Lomas MD Unavailable Breanna Crow PA-C Unavailable [phone] Encounter Details Date Type Department Care Team (Late st Contact Info) Description 12/29/2021 Transcribed Document [facility] [place] [address] [place] [address] ProviderJailyn MD [address] [place] [address] Social History Tobacco Use Types [...] Source : Stated Height Entry Format : [place] Height, Feet : 5 ft(Converted to: 152 cm, 60 Inch) Height, Inches : 6 Inch(Converted to: 0 ft 6 Inch, 15.24 cm) Clinical Height : 167.64 cm Weight Source : Standing scale Weight Entry Format : [place] Clinical Dosing Weight : 72.73 kg Weight, Pounds : 160 lb Body Surface Area (BSA) : 1.82 m2 Body Mass Index : 25.9 kg/m2 (HI) Arrey Body Weight : 63 kg JOSELINE MIRAMONTES [...] No. (Last Updated: 12/29/2021 10:50:52 EDT by JOSLEINE MIRAMONTES RN) Infectious Disease History Does patient [...] JOSELINE MIRAMONTES RN - 12/29/2021 10:51 EDT Meagher Suicide Severity Rating Scale (C-SSRS) CSSRS Past [...] #2 Relationship : - Primary Language : Tajik Communication Barrier : None Circular Shear Operator Needed : No JOSELINE MIRAMONTES RN - [...] [facility] Neurology - [address] [facility] [address] [address] Matilda Arita APRN [address] [place] [address] 200 [place] [address] 01/28/2025 9:45 AM EDT Office Visit [facility] Electrophysiology [address] [place] [address] [place] [address] [place] [address] [address] [place] [phone] documented as of this encounter Visit Diagnoses Not on filedocumented in this encounter Care Teams Inspector Advanced Composite Relationship Specialty Start Date End Date Eladio Lomas MD 1210 [facility] [address] [place] [address] Medical Oncologist Hematology and Oncology 07/08/22 Breanna Crow PA-C [address] [address] Physician Faculty Support Coordinator Oncology 07/08/22 documented as of this encounter
--- OUTSIDE RECORDS SUMMARY | 2024-12-26 08:50 | XMS_ITS | Encounter Summary ---
Author Organization [employer] ([place], [place], [place], [place]) Address [address] [place] [address] Care Team Providers Care Batch Still Operator Name Role Phone Eladio Lomas MD Unavailable Breanna Crow PA-C Unavailable [phone] Encounter Details Date Type Department Care Team (Late st Contact Info) Description 10/15/2021 Transcribed Document [facility] [place] Family Medicine [address] [place] [address] ProviderJailyn MD [address] [place] [address] Social History Tobacco Use Types [...] On: 10/15/2021 14:48 EDT by Miladys Carter, [facility] Phone Call for Consults Consult Reason : right L5 radiculopathy causing foot drop Physician Requesting Consult : ROMERO INGRAM MD-SERENE Physician Requested for Consult : GARCIA WORKMAN MD-ORT Date and Time Call Returned : 10/15/2021 14:50 EDT Consult, Additional Information : Spoke with Dr. Workman in person concerning the consult. Miladys Carter, [facility] Unit Coord - 10/15/2021 14:50 EDT Electronically signed by [facility], [facility] Conversion Door To Door Salesperson Cerner at 08/17/2022 6:04 PM CDT documented in this encounter Plan of Treatment Upcoming Encounters Date Type Department Care Team (Late st Contact Info) Description 01/23/2025 11:00 AM EDT Office Visit [facility] Neurology - [facility] 1021 [facility] 200 [place] [address] Matilda Arita APRN [address] [place] [address] 200 [place] [address] 01/28/2025 9:45 AM EDT Office Visit [facility] Electrophysiology [address] [place] [phone] Phuong Lewis MD 1401 [facility] [address] [place], [place] [address] documented as of this encounter Visit Diagnoses Not on filedocumented in this encounter Care Teams Batch Still Operator Relationship Specialty Start Date End Date Eladio Lomas MD 1210 [facility] [address] [place] [address] Medical Oncologist Hematology and Oncology 07/08/22 Breanna Crow, PACecilia 3470 [facility] [address] [place] [address] Physician Crop Nutrition Scientist Oncology 07/08/22 documented as of this encounter
--- OUTSIDE RECORDS SUMMARY | 2024-12-26 08:50 | XMS_ITS | Encounter Summary ---
Author Organization [employer] ([place], [place], [place], [place]) Address [address] [place] [address] Care Team Providers Care Apartment Hotel Manager Name Role Phone Eladio Lomas MD Unavailable Breanna Crow PA-C Unavailable [phone] Encounter Details Date Type Department Care Team (Late st Contact Info) Description 10/15/2021 Transcribed Document [facility] [address] [place] [address] ProviderJailyn MD [address] [place] [address] Social History Tobacco Use Types [...] - 10/15/2021 6:53 EDT Electronically signed by [facility] Conversion Director Of Programming Cerner at 08/17/2022 6:19 PM CDT documented in this encounter Plan of Treatment Upcoming Encounters Date Type Department Care Team (Late st Contact Info) Description 01/23/2025 11:00 AM EDT Office Visit [facility] Neurology - [facility] [address] [facility] [address] [place] [address] Matilda Arita APRN [address] [facility] [address] [place] [address] 01/28/2025 9:45 AM EDT Office Visit [facility] Electrophysiology [address] [place] [address] Phuong Lewis MD 1401 [facility] [address] [place], [place] [address] documented as of this encounter Visit Diagnoses Not on filedocumented in this encounter Care Teams Apartment Hotel Manager Relationship Specialty Start Date End Date Eladio Lomas MD 1210 [facility] [address] [place] [address] Medical Oncologist Hematology and Oncology 07/08/22 Breanna Crow PA-C 3470 [facility] [address] [place], [place] [phone] Physician Life Skills Coordinator Oncology 07/08/22 documented as of this encounter
--- OUTSIDE RECORDS SUMMARY | 2024-12-26 08:50 | XMS_ITS | Encounter Summary ---
Author Organization [employer] ([place], [place], [place], [place]) Address [address] [place] [address] Care Team Providers Care Relief Worker Name Role Phone Eladio Lomas MD Unavailable Breanna Crow PA-C Unavailable [phone] Encounter Details Date Type Department Care Team (Late st Contact Info) Description 10/29/2021 Transcribed Document [facility] [place] Family Medicine [address] [place] [address] ProviderJailyn MD [address] [place] [address] Social History Tobacco Use Types [...] Health Plan: HUMANA CHOICE PPO Policy Number: [id number] Authorization Number: Insurance Primary Name : HUMANA CHOICE PPO [id number] Authorization Status-Primary : Denied Reference Number-Primary : [id number] Authorized Service Begin Date-Primary : 10/15/2021 EDT [...] 13:43) Comment 2: Rec faxed Denial from [facility] 10/19/21 Placed in tray on [employer] [facility] desk (KEI JEAN-BAPTISTE, Seo Assistant 10/19/2021 13:08) Comment 3: HUMANA CHOICE PPO auth still pending per availity (JUANITA HUGO, SHARYN-Utilization Review 10/19/2021 11:01) Comment 4: Clinicals faxed via [employer] [address] (Natalie Lauren, Sharyn-Utilization Review 10/15/2021 09:30) Comment 5: HUMANA CHOICE PPO auth pending per Star note. (JUANITA HUGO RN-Utilization Review 10/15/2021 09:18) DIETER MAR RN - 10/29/2021 8:47 EDT documented in this encounter Plan of Treatment Upcoming Encounters Date Type Department Care Team (Late st Contact Info) Description 01/23/2025 11:00 AM EDT Office Visit [facility] Neurology - [facility] [address] [address] Matilda Arita APRN 1021 [facility] 200 [place] [address] 01/28/2025 9:45 AM EDT Office Visit [facility] Electrophysiology [address] [place] [address] Phuong Lewis MD [address] [facility] [address] [place] [address] documented as of this encounter Visit Diagnoses Not on filedocumented in this encounter Care Teams Relief Worker Relationship Specialty Start Date End Date Eladio Lomas MD 1210 [facility] [address] [place] [address] Medical Oncologist Hematology and Oncology 07/08/22 Breanna Crow, PARebelC [address] [facility] [address] [place] [address] Physician Haul Cane Brakeman Oncology 07/08/22 documented as of this encounter
--- OUTSIDE RECORDS SUMMARY | 2024-12-26 08:51 | XMS_ITS | Encounter Summary ---
Author Organization [employer] ([place], [place], [place], [place]) Address [address] [place] [address] Care Team Providers Care Manager Market Development Name Role Phone Eladio Lomas MD Unavailable Breanna Crow PA-C Unavailable [phone] Encounter Details Date Type Department Care Team (Late st Contact Info) Description 10/17/2021 Transcribed Document [facility] [place] Family Medicine [address] [place] [address] ProviderJailyn MD [address] [place] [address] Social History Tobacco Use Types [...] to fall prompting him to come [facility] on [facility]. He was admitted for concerns of [place]ia [place] Syndrome. A CT scan of lumbar spine [...] with pancreatic cancer SH: , lives in [place], [place]. Former remotes smoker, denies alcohol, or [...] 160 (SEP 18 06:20) DBP L 52 (CIDNI 18 10:12) L 52 (CINDI 18 10:12) 80 (SEP 17 18:34) MAP 75 (ICNDI 18 10:12) 69 (SEP 17 16:44) 91 [...] None Rad: Radiology Results (Last 48 hours) [id number] -- 10/15/2021 03:06 MRI Spine Thoracic WO [...] Dr. Trena Donahue. Electronically signed by Huy [facility] Conversion Teacher Vocal Cerner at 08/17/2022 6:00 PM CDT documented in this encounter Plan of Treatment Upcoming Encounters Date Type Department Care Team (Late st Contact Info) Description 01/23/2025 11:00 AM EDT Office Visit [facility] Neurology - [address] [facility] [address] [address] Matilda Arita APRN [address] [place] [address] 01/28/2025 9:45 AM EDT Office Visit [facility] Electrophysiology [address] [place] [address] Phuong Lewis MD [address]01 [facility] [address] [place] [address] documented as of this encounter Visit Diagnoses Not on filedocumented in this encounter Care Teams Manager Market Development Relationship Specialty Start Date End Date Eladio Lomas MD 1210 [facility] [address] [place] [address] Medical Oncologist Hematology and Oncology 07/08/22 Breanna Crow PA-C [address] [facility] [address] [place] [address] Physician Beater Room Helper Oncology 07/08/22 documented as of this encounter
--- OUTSIDE RECORDS SUMMARY | 2024-12-26 08:51 | XMS_ITS | Encounter Summary ---
Author Organization [employer] ([place], [place], [place], [place]) Address [address] [place] [address] Care Team Providers Care Surgical Oncologist Name Role Phone Eladio Lomas MD Unavailable Breanna Crow PA-C Unavailable [phone] Encounter Details Date Type Department Care Team (Late st Contact Info) Description 10/15/2021 Transcribed Document [facility] Family Medicine [address] [place] [address] ProviderJailyn MD [address] [place] [address] Social History Tobacco Use [...] 4:48 EDT by Tessy Gramajo RN-PATIENT [facility] Advance Directive Patient has Advance Directive *Q : Yes, Advance Directive not with the patient Advance Directive Type : Living will Advance Directive Date : 11/28/2017 EDT Copy Advance Directive Verified/on Chart : No Tessy Gramajo RN-[facility] - 10/15/2021 4:48 EDT Anesthesia/Transfusion History Family History of Anesthesia Reaction : No prior transfusion(s) Blood Transfusion Acceptable to Patient : Yes Transfusion History : Prior anesthesia without reaction Family History of Anesthesia Reaction : None Tessy Gramajo RN-[facility]IENT [facility] - 10/15/2021 4:48 EDT Anticipated Discharge Needs Discharge To, Anticipated : Home Anticipated Discharge Needs at This Time : None Tessy Gramajo RN-[facility] - 10/15/2021 4:48 EDT Education [...] : Verbalizes understanding Tessy Gramajo RN-[facility] - 10/15/2021 4:48 EDT Functional Assessment Living Situation : Home Patient Lives With : Spouse Persons Assisting Patient at Home : Spouse Current Daily Living Assistance : None Mobility Assistance Prior to Admission : Independent KOWALSKI Hx Falls Immediate/Within 3 Months : Yes Current Home Treatments : None Home Equipment : None Tessy Gramajo RN-[facility] - 10/15/2021 4:48 EDT General [...] Obtained From : Patient Primary Language : Serbian Communication Barrier : None Radio Artist Needed : No Tessy Gramajo RN-PATIENT CARE [...] : Yes [place] Secondary Diagnosis : No DEX Use of Ambulatory Aid : Bed rest/Nurse assist KOWALSKI IV Therapy or IV Access : Yes Dex Gait/Transferring : Impaired Dex Mental Status : Oriented to own ability [place] Fall Risk Score : 65 K[place] Fall Scale Risk Level : 46 or > High Risk [place] Fall Interventions : Adequate lighting, Assistive devices [...] Source : Stated Height Entry Format : [place] Height, Feet : 5 ft(Converted to: 152 cm, 60 Inch) Height, Inches : 6 Inch(Converted to: 0 ft 6 Inch, 15.24 cm) Clinical Height : 167.64 cm Weight Source : Bed scale Weight Entry Format : [place] Clinical Dosing Weight : 59.69 kg Weight, Pounds : 131 lb Weight, Ounces : 5 oz Body Surface Area (BSA) : 1.67 m2 Body Mass Index : 21.2 kg/m2 [place] Body Weight : 63 kg Tessy Gramajo RN-[facility] - 10/15/2021 4:48 EDT Infectious Disease History Does patient have symptoms of COVID-19? : No Tested for COVID19 in the past 14 days : No, Patient stated Does the Patient state known exposure to a COVID-19 positive case in the last 14 days? : No Patient Vaccinated for COVID-19 : Fully vaccinated Tessy Gramajo RN-[facility] - 10/15/2021 4:48 EDT Infectious [...] day) : NO Tessy Gramajo RN-[facility] - 10/15/2021 4:48 EDT Physical contact outside [place] in the last 30 days : No Hospitalized in Foreign Country : No Infectious Disease History : Chicken pox/Shingles, Measles INF Disease TB Screening Calc : 0 INF Disease Recent Travel Calc : 0 Tessy Gramajo RN-[facility] - 10/15/2021 4:48 EDT Tetanus Immunization Status Previous Tetanus Immunizations : No qualifying data available. Tetanus Immunization : Greater than 5 years Tessy Gramajo RN-[facility] - 10/15/2021 4:48 EDT Influenza Vaccine Asmt, Adult Previous Vaccines from Immunization Schedule : No qualifying data available. Influenza Immunization, Current Season : Yes Tessy Gramajo RN-[facility] - 10/15/2021 4:48 EDT Pneumococcal Vaccine Previous Vaccines from Immunization Schedule : No qualifying data available. Pneumonia Immunization Received : Unknown Pneumococcal Risk Assessment < Age 65 : N/A- Patient 65 years of age or older Pneumococcal Vaccine Contraindications : No contraindications to pneumococcal vaccine Transplant Workup/Recent Transplant : No Order for Pneumococcal Vaccine : Declined Vaccination Tessy Gramajo RN-[facility] - 10/15/2021 4:48 EDT Order Details Order Detail : N/A Patient Needs Meds Crushed/Liquid : No Tessy Gramajo RN-[facility] - 10/15/2021 4:48 EDT Nutrition [...] Patient at risk Tessy Gramajo RN-[facility] - 10/15/2021 4:48 EDT [place] Suicide Severity Rating Scale (C-SSRS) CSSRS Past Month Wish to be : No CSSRS Past Month Suicidal Thoughts : No CSSRS Lifetime Suicide Behavior : No Suicide Severity Rating Score : 0 Suicide Severity Rating : No Additional Care Required at this time Tessy Gramajo RN-[facility] - 10/15/2021 4:48 EDT Psychosocial History Does Someone Depend on You for Care? : No Chronic/Terminal Illness w/Freq Visits : Yes Do You Have a History of the Following? : Patient denies history Currently in Unsafe Situation : No Do You Have a Support System? : Yes Tessy Gramajo RN-[facility] - 10/15/2021 4:48 EDT Sleep [...] Score : 3 Tessy Gramajo RN-[facility] - 10/15/2021 4:48 EDT Spiritual/Cultural Needs Any Spiritual/Cultural Needs or Requests : No Tessy Gramajo RN-[facility] - 10/15/2021 4:48 EDT Valuables [...] Description 01/23/2025 11:00 AM EDT Office Visit [facility] Neurology - [address] [place] [address] Matilda Arita APRN 1021 [facility] [address] [place] [address] 01/28/2025 9:45 AM EDT Office Visit [facility] Electrophysiology [address] [place] [address] Phuong Lewis MD 1401 [facility] [address] [place], [place] [id number] documented as of this encounter Visit Diagnoses Not on filedocumented in this encounter Care Teams Surgical Oncologist Relationship Specialty Start Date End Date Eladio Lomas MD 1210 [facility] [address] [place] [address] Medical Oncologist Hematology and Oncology 07/08/22 Breanna Crow PACecilia [address] [facility] [address] [place] [address] Physician Game Developer Oncology 07/08/22 documented as of this encounter
--- OUTSIDE RECORDS SUMMARY | 2024-12-26 08:51 | XMS_ITS | Encounter Summary ---
Author Organization [employer] ([place], [place], [place], [place]) Address [address] [place] [address] Care Team Providers Care Toll Collector Name Role Phone Eladio Lomas MD Unavailable Breanna Crow PA-C Unavailable [phone] Encounter Details Date Type Department Care Team (Late st Contact Info) Description 10/15/2021 Transcribed Document [facility] [place] [address] [place] [address] ProviderJailyn MD [address] [place] [address] Social History Tobacco Use [...] Transfer : Assist needed (Comment: supervision [CRYSTAL ROEBRTS OTR/Mikal - 10/17/2021 12:09 EDT] ) Prior [...] CRYSTAL ROBERTS OTR/Mikal - 10/17/2021 12:09 EDT Pass Worker Goals, OT Other LTG Grid Goal #1 [...] AFO and shoe, with verbal cues and hjsx-[id number] instructions on how to perform, due to [...] Office Visit [facility] Neurology - [address] [facility] [address] [place] [address] Matilda Arita, ESPERANZA 10[address] [facility] [address] [place] [address] 01/28/2025 9:45 AM EDT Office Visit [facility] Electrophysiology [address] [place] [phone] [place] [address] [place] [address] [address] [place] [address] documented as of this encounter Visit Diagnoses Not on filedocumented in this encounter Care Teams Toll Collector Relationship Specialty Start Date End Date Eladio Lomas MD 1210 [facility] [address] [place] [address] Medical Oncologist Hematology and Oncology 07/08/22 Breanna Crow, PA-C 10[address] [facility] [address] [place] [address] Physician Gamma Ray Operator Oncology 07/08/22 documented as of this encounter
--- OUTSIDE RECORDS SUMMARY | 2024-12-26 08:51 | XMS_ITS | Encounter Summary ---
Author Organization [employer] ([place], [place], [place], [place]) Address [address] [place] [address] Care Team Providers Care Veterinarian Epidemiologist Name Role Phone Eladio Lomas MD Unavailable Breanna Crow PA-C Unavailable [phone] Reason for Referral * Consultation (Routine) - Closed Specialty Diagnoses / Procedures Referred By Contac t Referred To Contact Cardiology Diagnoses Palpitations Procedures HOLTER [place]IT[place] Phu[place] العر[place]ي [place] [address] [place] [address] [address] [place] [address] Phone: tel: fax: [facility] Electrophysiology [address] [place] [address] Phone: tel: fax: Referral ID Status Reason Start Date Expiration Date Visits Re quested Visits Authorized [id number] Closed 12/14/2024 12/14/2025 1 1 Encounter Details Date Type Department Care Team (Late st Contact Info) Description 12/14/2024 Orders Only [facility] Electrophysiology [address] [place] [address] Covert, Dorothy Urena CMA Palpitations (Primary Dx) Social History Tobacco Use Types Packs/Day Years [...] Date Record ed How often does anyone, inclu ding family and friends, physically hurt you? Never [...] Do you speak a language other than German at [facility]? No 12/11/2024 Do you want [...] Description 01/23/2025 11:00 AM EDT Office Visit [facility] Neurology - [address] [place] [address] Matilda Arita APRN [address] [place] [address] 01/28/2025 9:45 AM EDT Office Visit [facility] Electrophysiology [address] [place] [phone] Phuong Lewis MD 1401 [facility] [address] [place] [address] Scheduled Orders Name Type Priority Associated Diagnoses Orde r Schedule HOLTER MONITOR [facility] Cardiac Services Routine Palpitations Expected: 12/14/2024, Expires: 12/14/2025 documented as of this encounter Visit Diagnoses Diagnosis Palpitations- Primary documented in this encounter Care Teams Veterinarian Epidemiologist Relationship Specialty Start Date End Date Eladio Lomas MD 1210 [facility] [address] [place] [address] Medical Oncologist Hematology and Oncology 07/08/22 Breanna Crow PA-C [facility] [place] [address] Physician College Or University Registrar Oncology 07/08/22 documented as of this encounter
--- OUTSIDE RECORDS SUMMARY | 2024-12-26 08:51 | XMS_ITS | Encounter Summary ---
Author Organization [employer] ([place], [place], [place], [place]) Address [address] [place] [address] Care Team Providers Care Hospice Home Health Aide Name Role Phone Eladio Lomas MD Unavailable Breanna Crow PA-C Unavailable [phone] Encounter Details Date Type Department Care Team (Late st Contact Info) Description 10/15/2021 Transcribed Document [facility] [place] Family Medicine [address] [place] [address] ProviderJailyn MD [address] [place] [address] Social History Tobacco Use Types [...] Date Ata rded Speak language other than Cymro at home Not on file 05/13/2023 Want [...] Health Plan: HUMANA CHOICE PPO Policy Number: [id number] Authorization Number: Insurance Primary Name : HUMANA SAULO PPO [id number] Authorization Status-Primary : Pending Reference Number-Primary : [id number] Authorized Service Begin Date-Primary : 10/15/2021 EDT Authorization Comments-Primary : HUMANA CHOICE PPO auth pending per Star note. Historical Authorization Comments-Primary : No Authorization Comments Found JUANITA HUGO RN-Utilization Review - 10/15/2021 9:18 EDT documented in this encounter Plan of Treatment Upcoming Encounters Date Type Department Care Team (Late st Contact Info) Description 01/23/2025 11:00 AM EDT Office Visit [facility] Neurology - [address] 1021 [facility] 200 [place] [phone] Matilda Arita APRN 1021 [facility] [address] [place] [address] 01/28/2025 9:45 AM EDT Office Visit [facility] Electrophysiology [address] [place] [phone] Phuong Lewis MD 1401 [facility] [address] [place] [phone] documented as of this encounter Visit Diagnoses Not on filedocumented in this encounter Care Teams Hospice Home Health Aide Relationship Specialty Start Date End Date Eladio Lomas MD 1210 [facility] [address] [place] [address] Medical Oncologist Hematology and Oncology 07/08/22 Breanna Crow PA-C [address] [facility] [address] [place] [address] Physician Director Of Athletics Oncology 07/08/22 documented as of this encounter
--- OUTSIDE RECORDS SUMMARY | 2024-12-26 08:51 | XMS_ITS | Encounter Summary ---
Author Organization [employer] ([place], [place], [place], [place]) Address [address] [place] [address] Care Team Providers Care Metal Washing Machine Operator Name Role Phone Eladio Lomas MD Unavailable Breanna Crow PA-C Unavailable [phone] Encounter Details Date Type Department Care Team (Late st Contact Info) Description 10/18/2021 Transcribed Document [facility] [address] [place] [address] ProviderJailyn MD [address] [place] [address] Social History Tobacco Use Types [...] Description 01/23/2025 11:00 AM EDT Office Visit [facility] [address] [facility] [address] [place] [address] Matilda Arita APRN 1021 [facility] [address] [place] [address] 01/28/2025 9:45 AM EDT Office Visit [facility] Electrophysiology [address] [place] [address] Phuong Lewis MD 1401 [facility] [address] [place] [address] documented as of this encounter Visit Diagnoses Not on filedocumented in this encounter Care Teams Metal Washing Machine Operator Relationship Specialty Start Date End Date Eladio Lomas MD 1210 [facility] [address] [place] [address] Medical Oncologist Hematology and Oncology 07/08/22 Breanna Crow PA-C [address] [facility] [address] [place] [address] Physician Handle Lathe Operator Oncology 07/08/22 documented as of this encounter
--- OUTSIDE RECORDS SUMMARY | 2024-12-26 08:51 | XMS_ITS | Encounter Summary ---
Author Organization [employer] ([place], [place], [place], [place]) Address [address] [place] [address] Care Team Providers Care Roads Supervisor Name Role Phone Eladio Lomas MD Unavailable Breanna Crow PA-C Unavailable [phone] Encounter Details Date Type Department Care Team (Late st Contact Info) Description 10/17/2021 Transcribed Document [facility] [place] [address] [place] [address] ProviderJailyn MD [address] [place] [address] Social History Tobacco Use Types [...] Date Ata rded Speak language other than Ghanaian at home Not on file 05/13/2023 Want [...] to assume that as it was a welding technician who did the biopsy, and and told [...] At risk for sleep apnea / IMO [id number] / Confirmed, Active Problems (2) At risk for sleep apnea Mitral valve prolapse documented in this encounter Plan of Treatment Upcoming Encounters Date Type Department Care Team (Late st Contact Info) Description 01/23/2025 11:00 AM EDT Office Visit [facility] Neurology - [address] [place] [address] Matilda Arita APRN [address] [place] [address] 01/28/2025 9:45 AM EDT Office Visit [facility] Electrophysiology [address] [place] [phone] Phuong Lewis MD 1401 [facility] [address] [place] [address] documented as of this encounter Visit Diagnoses Not on filedocumented in this encounter Care Teams Roads Supervisor Relationship Specialty Start Date End Date Eladio Lomas MD 1210 [facility] [address] [place] [address] Medical Oncologist Hematology and Oncology 07/08/22 Breanna Crow PA-C [address] [facility] [address] [place] [address] Physician Coatings Inspector Oncology 07/08/22 documented as of this encounter
--- OUTSIDE RECORDS SUMMARY | 2024-12-26 08:51 | XMS_ITS | Encounter Summary ---
Author Organization [employer] ([place], [place], [place], [place]) Address [address] [place] [address] Care Team Providers Care Assembler Installer General Name Role Phone Eladio Lomas MD Unavailable Breanna Crow PA-C Unavailable [phone] Encounter Details Date Type Department Care Team (Late st Contact Info) Description 10/18/2021 Transcribed Document [facility] [address] [place] [address] ProviderJailyn MD [address] [place] [address] Social History Tobacco Use Types [...] 14:35 EDT by Celina Marley Non Emp biology professor Documentation Discharge Date/Time : 10/18/2021 12:50 EDT [...] Office Visit [facility] Neurology - [address] [address] Matilda Arita APRN [address] [place] [address] 01/28/2025 9:45 AM EDT Office Visit [facility] Electrophysiology [address] [place] [phone] Phuong Lewis MD 1401 [facility] [address] [place] [address] documented as of this encounter Visit Diagnoses Not on filedocumented in this encounter Care Teams Assembler Installer General Relationship Specialty Start Date End Date Eladio Lomas MD 1210 [facility] [address] [place] [address] Medical Oncologist Hematology and Oncology 07/08/22 Breanna Crow PACecilia [address] [place] [address] Physician Practical Nurse Oncology 07/08/22 documented as of this encounter
--- OUTSIDE RECORDS SUMMARY | 2024-12-26 08:51 | XMS_ITS | Encounter Summary ---
Author Organization [employer] ([place], [place], [place], [place]) Address [address] [place] [address] Care Team Providers Care Dope Pourer Name Role Phone Eladio Lomas MD Unavailable Breanna Crow PA-C Unavailable [phone] Encounter Details Date Type Department Care Team (Late st Contact Info) Description 01/01/2022 Transcribed Document [facility] [place] [address] [place] [address] ProviderJailyn MD [address] [place] [address] Social History Tobacco Use Types [...] Historical Provider, - 01/01/2022 12:58 [place] [address] CORBIN HU :1950 Visit Time:01/01/2022 What to [...] for follow-up date and appointment time Activity: [place] dressing. Do not remove. May shower with [...] MD-ORT When 01/14/2022 11:00 AM EDT Where: [address] [place] [address] [address] [place] [address]- Medications What How Much When Instructions Next [...] [facility] Pharm: [address] [place] [address] [phone] Take your medications faithfully. Do NOT skip [...] these instructions at home: Medicines ??? Take vosq-lge-vawmhqg and prescription medicines as told by your [...] keep your urine pale yellow. ? Take abkj-cmh-oxonzpa or prescription medicines. ? Eat foods that [...] and water are not available, use hand drilling field operator. ? Change your dressing as told [...] safe to drive. General instructions ??? Take ocyl-iub-qgwywge and prescription medicines only as told by [...] provider. Document Revised: 08/06/2020 Document Reviewed: 08/06/2020 [employer] Patient Education ?? 2021 [employer]. Laminectomy, Care After This sheet gives [...] these instructions at home: Medicines ??? Take tqqq-wvm-gatpiap and prescription medicines only as told by [...] keep your urine pale yellow. ? Take yvwm-pxi-esoyuzb or prescription medicines. ? Eat foods that [...] and water are not available, use hand drilling field operator. ? Change your dressing as told [...] provider. Document Revised: 11/12/2019 Document Reviewed: 11/12/2019 [employer] Patient Education ?? 2021 [employer]. Emergency Awareness and Preventative Care STROKE is [...] Assistance with quitting is available by contacting 0-245-TRTS-NOW. This is a free resource providing counseling, [...] was given the opportunity to ask questions. Patient/Board Winder Name: Patient/Board Winder Signature: Relationship to Patient: Clinician/Hospital Board Winder Signature: Date: documented in this encounter Plan of Treatment Upcoming Encounters Date Type Department Care Team (Late st Contact Info) Description 01/23/2025 11:00 AM EDT Office Visit [facility] Neurology - [address] [place] [address] Matilda Arita APRN 1021 [facility] [address] [place] [address] 01/28/2025 9:45 AM EDT Office Visit [facility] Electrophysiology [address] [place] [phone] Phuong Lewis MD 1401 [facility] [address] [place] [address] documented as of this encounter Visit Diagnoses Not on filedocumented in this encounter Care Teams Dope Pourer Relationship Specialty Start Date End Date Eladio Lomas MD 1210 [facility] [address] [place] [address] Medical Oncologist Hematology and Oncology 07/08/22 Breanna Crow, PACecilia [address] [facility] [address] [place] [address] Physician Train Engineer Oncology 07/08/22 documented as of this encounter
--- OUTSIDE RECORDS SUMMARY | 2024-12-26 08:51 | XMS_ITS | Encounter Summary ---
Author Organization [employer] ([place], [place], [place], [place]) Address [address] [place] [address] Care Team Providers Care Nursery Rn Name Role Phone Eladio Lomas MD Unavailable Breanna Crow PA-C Unavailable [phone] Encounter Details Date Type Department Care Team (Late st Contact Info) Description 10/15/[address] [facility] [place] Medicine [address] [place] [address] ProviderJailyn MD [address] [place] [address] Social History Tobacco Use Types [...] 10/15/2021 15:55 EDT Electronically signed by Huy, [facility] Conversion Barrel Bung Remover And Dumper Cerner at 08/17/2022 5:55 PM CDT documented in this encounter Plan of Treatment Upcoming Encounters Date Type Department Care Team (Late st Contact Info) Description 01/23/2025 11:00 AM EDT Office Visit [facility] Neurology - [address] [facility] [address] [place] [address] Matilda Arita APRN 1021 [facility] [address] [place] [address] 01/28/2025 9:45 AM EDT Office Visit [facility] Electrophysiology [address] [place] [phone] Phuong Lewis MD 1401 [facility] [address] [place] [address] documented as of this encounter Visit Diagnoses Not on filedocumented in this encounter Care Teams Nursery Rn Relationship Specialty Start Date End Date Eladio Lomas MD 1210 [facility] [address] [place] [address] Medical Oncologist Hematology and Oncology 07/08/22 Breanna Crow PA-C 4530 [facility] [address] [place] [address] Physician Lease Purchase Driver Oncology 07/08/22 documented as of this encounter
--- OUTSIDE RECORDS SUMMARY | 2024-12-26 08:51 | XMS_ITS | Encounter Summary ---
Author Organization [employer] ([place], [place], [place], [place]) Address [address] [place] [address] Care Team Providers Care Manager Gift Name Role Phone Eladio Lomas MD Unavailable Breanna Crow PA-C Unavailable [phone] Encounter Details Date Type Department Care Team (Late st Contact Info) Description 10/17/2021 Transcribed Document [facility] [place] Family Medicine [address] [place] [address] ProviderJailyn MD [address] [place] [address] Social History Tobacco Use Types [...] Historical Provider, - 10/17/2021 2:00 AM CDT Crusher Wet Ground Mica Details Entered On: 10/17/2021 5:10 EDT Performed [...] - 10/17/2021 5:09 EDT Electronically signed by [facility] Conversion Entry Level Software Engineer Cerner at 08/17/2022 6:17 PM CDT documented in this encounter Plan of Treatment Upcoming Encounters Date Type Department Care Team (Late st Contact Info) Description 01/23/2025 11:00 AM EDT Office Visit [facility] Neurology - [facility] 1021 [facility] [address] [place] [address] Matilda Arita APRN 10[address] [facility] [address] [place] [address] 01/28/2025 9:45 AM EDT Office Visit [facility] Electrophysiology [address] [place] [address] Phuong Lewis MD 1401 [facility] [address] [place] [address] documented as of this encounter Visit Diagnoses Not on filedocumented in this encounter Care Teams Manager Gift Relationship Specialty Start Date End Date Eladio Lomas MD 1210 [facility] [address] [place] [address] Medical Oncologist Hematology and Oncology 07/08/22 Breanna Crow PA-C [address] [facility] [address] [place], [place] [address] Physician Production Supply Equipment Tender Oncology 07/08/22 documented as of this encounter
--- OUTSIDE RECORDS SUMMARY | 2024-12-26 08:51 | XMS_ITS | Clinical Summary ---
Author Organization [facility] Address [address] [place] [address] Phone Care Team Providers Care Verification Lead Name Role Phone Godfrey ALFARO, José Miguel Michaels [facility] [ ] Conditions or Problems Problem Name Problem Code Onset Date Status Entry Date Provider Comment Standard Description Annotate Acute DVT of leg, right 509544845 (SNOMED CT) Active José Miguel Donahue MD Deep venous thrombosis of lower extremity Health advice, education, or counseling 612602187 (SNOMED CT) Active José Miguel Donahue MD Procedure carried out on subject PERSONAL HISTORY OF IMMUNOSUPPRES PILLO THERAPY 729773480 (SNOMED CT) 12/10 Active 12/10 José Miguel Donahue MD History of immunosuppressiv e therapy Foot drop, right 4519069 (SNOMED CT) 10/27 Active 10/27 José Miguel Donahue MD Foot-drop Benign Essential Hypertension 66570523 (SNOMED CT) 10/22 Active 10/22 Dorothy Juanpablo Benign hypertension Disseminated herpes zoster 31541899 (SNOMED CT) 10/22 Active 10/22 Dorothy Juanpablo Disseminated herpes zoster 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 10/22 Dorothy Juanpablo Leukemoid reaction Chronic lymphoid leukemia 17111659 (SNOMED CT) 10/22 Active 10/22 Dorothy Juanpablo Chronic lymphoid leukemia, disease Medications Medication Instructions Start Date Stop Date Generic Name [facility] Provider ELIQUIS 5 MG TABS twice a day apixaban 46853979006 Tonia Noland VALTREX 1 GM TABS Take 1 tablet by mouth once a day valacyclovir 40518557800 José Miguel Donahue MD ALLOPURINOL 300 MG TABS 1 tablet by mouth once a day allopurinol 35796793538 Suzanne Cope ELIQUIS 5 MG TABS 2 tablet by mouth twice a day apixaban 63057219573 Suzanne Cope PREDNISONE 10 MG TABS Take as directed prednisone 76782386084 Suzanne Cope VALTREX 500 MG TABS 2 tablet by mouth once a day valacyclovir 92080705402 Faby Donahue VALTREX 1 GM TABS Take 1 tablet by mouth once a day valacyclovir 99637310709 Faby Donahue ALLOPURINOL 300 MG TABS 1 tablet by mouth once a day allopurinol 64189544334 Marianayvette Wiggins ELIQUIS 5 MG TABS 2 tablet by mouth twice a day apixaban 15684383597 Marianayvette Wiggins Lactobacillus acidophilus 1 billion cell capsule 1 capsule by mouth twice a day lactobacillus acidophilus Mariana Wiggins MULTI-VITAMINS TABS multivitamin 54425119748 Mariana Wiggins PREDNISONE 10 MG TABS Take as directed prednisone 76667788645 Mariana Wiggins TYLENOL 325 MG TABS 2 tablet by mouth every four hours as needed acetaminophen 86701617439 Mariana Wiggins VALTREX 500 MG TABS 2 tablet by mouth once a day valacyclovir 82551890810 Mariana Rosalie Medications Administered No information available. [...] Labs CPT-sl STAT Labs CPT-sl STAT Labs CPT-29343 CMP [id number] CBC with Differential 2021 Vital Signs Date [...]
--- OUTSIDE RECORDS SUMMARY | 2024-12-26 08:51 | XMS_ITS | Encounter Summary ---
Author Organization [email or web address] ([place], [place], [place], [place]) Address [address] [place] [address] Care Team Providers Care Oracle E Business Developer Name Role Phone Eladio Lomas MD Unavailable Breanna Crow PA-C Unavailable [phone] Encounter Details Date Type Department Care Team (Late st Contact Info) Description 01/01/2022 Transcribed Document [facility] [place] Family Medicine [address] [place] [address] ProviderJailyn MD [address] [place], [...] Date Ata rded Speak language other than Central African at home Not on file 05/13/2023 Want [...] Provider, - 01/01/2022 11:46 AM CDT Patient: CORBIN HU Age: 71 [...] lysis, facetectomy, L4-5 SURGEON: Garcia Workman MD. CHAINSTITCH PANTS OUTSEAMER: Roberto Plata ANESTHESIA: General. ESTIMATED BLOOD LOSS: [...] Description 01/23/2025 11:00 AM EDT Office Visit [facility] Neurology - [address] [place] [address] Matilda Arita APRN [address] [place] [address] 01/28/2025 9:45 AM EDT Office Visit [facility] Electrophysiology [address] [place] [phone] Phuong Lewis MD 1401 [facility] [address] [place] [address] documented as of this encounter Visit Diagnoses Not on filedocumented in this encounter Care Teams Oracle E Business Developer Relationship Specialty Start Date End Date Eladio Lomas MD 1210 [facility] [address] [place] [address] Medical Oncologist Hematology and Oncology 07/08/22 Breanna Crow, PACecilia [address] [facility] [address] [place] [address] Physician Professor Of Biostatistics Oncology 07/08/22 documented as of this encounter
--- OUTSIDE RECORDS SUMMARY | 2024-12-26 08:51 | XMS_ITS | Encounter Summary ---
Author Organization [email or web address] ([place], [place], [place], [place]) Address [address] [place] [address] Care Team Providers Care Cultural Historian Name Role Phone Eladio Lomas MD Unavailable Breanna Crow PA-C Unavailable [phone] Encounter Details Date Type Department Care Team (Late st Contact Info) Description 10/15/2021 Transcribed Document [facility] [place] [address] [place] [address] ProviderJailyn MD [address] [place] [address] Social History Tobacco Use Types [...] Description 01/23/2025 11:00 AM EDT Office Visit [facility] Neurology - [address] [place] [address] Matilda Arita APRN [address] [place] [address] 01/28/2025 9:45 AM EDT Office Visit [facility] Electrophysiology [address] [place] [phone] Phuong Lewis MD 1401 [facility] [address] [place] [address] documented as of this encounter Visit Diagnoses Not on filedocumented in this encounter Care Teams Cultural Historian Relationship Specialty Start Date End Date Eladio Lomas MD 1210 [facility] [address] [place] [address] Medical Oncologist Hematology and Oncology 07/08/22 Breanna Crow PA-C 3470 [facility] [address] [place] [address] Physician Software Project Lead Oncology 07/08/22 documented as of this encounter
--- OUTSIDE RECORDS SUMMARY | 2024-12-26 08:51 | XMS_ITS | Encounter Summary ---
Author Organization [employer] ([place], [place], [place], [place]) Address [address] [place] [address] Care Team Providers Care Dry Mixer Name Role Phone Eladio Lomas MD Unavailable Breanna Crow PA-C Unavailable [phone] Encounter Details Date Type Department Care Team (Late st Contact Info) Description 10/18/2021 Transcribed Document [facility] [place] Family Medicine [address] [place] [address] ProviderJailyn MD [address] [place] [address] Social History Tobacco Use Types [...] intense exercise for several days. ??? Take koco-qwq-gxinggf and prescription medicines only as told by [...] not known. ??? Stay hydrated, and take rzrl-esl-mjonnxd and prescription medicines only as told by your health care provider. This information is not intended to replace advice given to you by your health care provider. Make sure you discuss any questions you have with your health care provider. Document Revised: 09/03/2020 Document Reviewed: 09/03/2020 [employer] Patient Education ? 2020 [employer]. documented in this encounter Plan of Treatment Upcoming Encounters Date Type Department Care Team (Late st Contact Info) Description 01/23/2025 11:00 AM EDT Office Visit [facility] Neurology - [address] [place] [address] Matilda Arita APRN [address] [place] [address] 01/28/2025 9:45 AM EDT Office Visit [facility] Electrophysiology [address] [place] [address] Phuong Lewis MD 1401 [facility] [address] [place] [phone] documented as of this encounter Visit Diagnoses Not on filedocumented in this encounter Care Teams Dry Mixer Relationship Specialty Start Date End Date Eladio Lomas MD 1210 [facility] [address] [place] [address] Medical Oncologist Hematology and Oncology 07/08/22 Breanna Crow PA-C 0034 [facility] [address] [place] [address] Physician Inside Sales Associate Oncology 07/08/22 documented as of this encounter
--- OUTSIDE RECORDS SUMMARY | 2024-12-26 08:51 | XMS_ITS | Encounter Summary ---
Author Organization [employer] ([place], [place], [place], [place]) Address [address] [place] [address] Care Team Providers Care Senior Medical Director Name Role Phone Eladio Lomas MD Unavailable Breanna Crow PA-C Unavailable [phone] Encounter Details Date Type Department Care Team (Late st Contact Info) Description 10/18/2021 Transcribed Document [facility] [place] [address] [place] [address] ProviderJailyn MD [address] [place] [address] Social History Tobacco Use Types [...] Historical Provider, - 10/18/2021 12:28 [place] [address] CORBIN HU :1950 Visit Time:10/15/2021 Your Visit [...] TRENA PANIAGUA When Within 2 weeks Where: [facility] [address] [address] Business (1) Medications What How Much When [...] 10 mg daily in total Pickup at [facility] #[id number] This evening predniSONE (predniSONE 10 mg oral tablet) See instructions Taper course of prednisone as following: First day 6 tabs, second day 5 tabs, third day 4 tabs, fourth day 3 tabs, fifth day 2 tabs, sixth day 1 tab, seventh half tab and eighth half tab Pickup at [facility] #[id number] This afternoon valACYclovir (Valtrex 500 mg oral [...] instructions 1 Oral Daily Tomorrow Pharmacy Information [facility] #[id number]: [address] [place] [phone] Take your medications faithfully. Do NOT skip [...] intense exercise for several days. ??? Take imuz-pse-laqqwzv and prescription medicines only as told by [...] not known. ??? Stay hydrated, and take mfzj-kdx-eatzbho and prescription medicines only as told by your health care provider. This information is not intended to replace advice given to you by your health care provider. Make sure you discuss any questions you have with your health care provider. Document Revised: 09/03/2020 Document Reviewed: 09/03/2020 [employer] Patient Education ?? 2020 [employer]. Emergency Awareness and Preventative Care STROKE is [...] Assistance with quitting is available by contacting 0-394-UUHINOW. This is a free resource providing counseling, [...] range between ( 1.0 and 7.0 ) Baca #: 2.80 K/uL -- Normal range between ( 0.24 and 0.82 ) Eos #: 0.00 K/uL -- Normal range between ( 0.04 and 0.54 ) Baca %: 17.6 % -- Normal range between [...] #: 4 K/uL ANC #: 5 K/uL Baca Percent Man: 19 % -- Normal range [...] was given the opportunity to ask questions. Patient/Process Improvement Consultant Name: Patient/Process Improvement Consultant Signature: Relationship to Patient: Clinician/Hospital Process Improvement Consultant Signature: Date: documented in this encounter Plan of Treatment Upcoming Encounters Date Type Department Care Team (Late st Contact Info) Description 01/23/2025 11:00 AM EDT Office Visit [facility] Neurology - [address] [place] [address] Matilda Arita APRN [address] [place] [address] 01/28/2025 9:45 AM EDT Office Visit [facility] Electrophysiology [address] [place] [address] Phuong Lewis MD 1401 [facility] [address] [place], [place] [phone] documented as of this encounter Visit Diagnoses Not on filedocumented in this encounter Care Teams Senior Medical Director Relationship Specialty Start Date End Date Eladio Lomas MD 1210 [facility] [address] [place] [address] Medical Oncologist Hematology and Oncology 07/08/22 Breanna Crow PA-C [address] [facility] [address] [place] [address] Physician Product Marketing Specialist Oncology 07/08/22 documented as of this encounter
--- OUTSIDE RECORDS SUMMARY | 2024-12-26 08:51 | XMS_ITS | Encounter Summary ---
Author Organization [employer] ([place], [place], [place], [place]) Address [address] [place] [address] Care Team Providers Care Seafood Service Team Member Name Role Phone Eladio Lmoas MD Unavailable Breanna Crow PA-C Unavailable [phone] Encounter Details Date Type Department Care Team (Late st Contact Info) Description 10/18/2021 Transcribed Document [facility] [place] Family Medicine [address] [place] [address] ProviderJailyn MD [address] [place], [...] : Yes Discharge To Care Management : Home/Residential/Residential or Self Care -01 ROMERO MCMANUS RN [...] Office Visit [facility] Neurology - [address] [place] [address] Matilda Arita APRN [address] [place] [address] 01/28/2025 9:45 AM EDT Office Visit [facility] Electrophysiology [address] [place] [address] Phuong Lewis MD 1401 [facility] [address] [place], [place] [id number] documented as of this encounter Visit Diagnoses Not on filedocumented in this encounter Care Teams Seafood Service Team Member Relationship Specialty Start Date End Date Eladio Lomas MD 1210 [facility] [address] [place], [place] [address] Medical Oncologist Hematology and Oncology 07/08/22 Breanna Crow PA-C [address] [facility] [address] [place] [address] Physician Inspector Soldering Oncology 07/08/22 documented as of this encounter
--- OUTSIDE RECORDS SUMMARY | 2024-12-26 08:51 | XMS_ITS | Encounter Summary ---
Author Organization [employer] ([place], [place], [place], [place]) Address [address] [place] [address] Care Team Providers Care Registered Nurse Obstetrics Name Role Phone Eladio Lomas MD Unavailable Breanna Crow PA-C Unavailable [phone] Encounter Details Date Type Department Care Team (Late st Contact Info) Description 10/17/2021 Transcribed Document [facility] [place] Family Medicine [address] [place] [address] ProviderJailyn MD [address] [place] [address] Social History Tobacco Use [...] - 10/17/2021 5:08 EDT Electronically signed by Huy, [facility] Conversion Auto Heater Mechanic Cerner at 08/17/2022 6:00 PM CDT documented in this encounter Plan of Treatment Upcoming Encounters Date Type Department Care Team (Late st Contact Info) Description 01/23/2025 11:00 AM EDT Office Visit [facility] Neurology - [address] [facility] [address] [place] [address] Matilda Arita APRN 1021 [facility] [address] [place] [address] 01/28/2025 9:45 AM EDT Office Visit [facility] Electrophysiology [address] [place] [phone] Phuong Lewis MD 1401 [facility] [address] [place] [address] documented as of this encounter Visit Diagnoses Not on filedocumented in this encounter Care Teams Registered Nurse Obstetrics Relationship Specialty Start Date End Date Eladio Lomas MD 1210 [facility] [address] [place] [address] Medical Oncologist Hematology and Oncology 07/08/22 Breanna Crow PA-C [address] [facility] [address] [place] [address] Physician Custom Leather Products Maker Oncology 07/08/22 documented as of this encounter
--- OUTSIDE RECORDS SUMMARY | 2024-12-26 08:51 | XMS_ITS | Encounter Summary ---
Author Organization [employer] ([place], [place], [place], [place]) Address [address] [place] [address] Care Team Providers Care Microwave Supervisor Name Role Phone Eladio Lomas MD Unavailable Breanna Crow PA-C Unavailable [phone] Encounter Details Date Type Department Care Team (Late st Contact Info) Description 10/18/2021 Transcribed Document [facility] Family Medicine [address] [place] [address] ProviderJailyn MD [address] [place] [address] Social History Tobacco Use Types [...] Historical Provider, - 10/18/2021 2:00 AM CDT Lean Coach Details Entered On: 10/18/2021 2:19 EDT Performed [...] - 10/18/2021 2:19 EDT Electronically signed by [facility] Conversion Arborist Climber Cerner at 08/17/2022 6:13 PM CDT documented in this encounter Plan of Treatment Upcoming Encounters Date Type Department Care Team (Late st Contact Info) Description 01/23/2025 11:00 AM EDT Office Visit [facility] Neurology - [facility] 1021 [facility] 200 [place] [address] Matilda Arita APRN 1021 [facility] 200 [place] [address] 01/28/2025 9:45 AM EDT Office Visit [facility] Electrophysiology [address] [place] [address] Phuong Lewis MD 1401 [facility] [address] [place] [address] documented as of this encounter Visit Diagnoses Not on filedocumented in this encounter Care Teams Microwave Supervisor Relationship Specialty Start Date End Date Eladio Lomas MD 1210 [facility] [address] [place] [address] Medical Oncologist Hematology and Oncology 07/08/22 Breanna Crow PA-C 3470 [facility] [address] [place], [place] [id number] Physician Adjunct Communications Faculty Member Oncology 07/08/22 documented as of this encounter
--- OUTSIDE RECORDS SUMMARY | 2024-12-26 08:51 | XMS_ITS | Encounter Summary ---
Author Organization [employer] ([place], [place], [place], [place]) Address [address] [place] [address] Care Team Providers Care Freight Air Brake Fitter Name Role Phone Eladio Lomas MD Unavailable Breanna Crow PA-C Unavailable [phone] Encounter Details Date Type Department Care Team (Late st Contact Info) Description 10/18/2021 Transcribed Document [facility] [place] Family Medicine [address] [place] [address] ProviderJailyn MD [address] [place] [address] Social History Tobacco Use Types [...] Date Ata rded Speak language other than Bulgarian at home Not on file 05/13/2023 Want [...] MD 10/17/2021 11:52 EDT Electronically signed by [facility], [facility] Conversion Interventional Radiologist Cerner at 08/17/2022 5:59 PM CDT documented in this encounter Plan of Treatment Upcoming Encounters Date Type Department Care Team (Late st Contact Info) Description 01/23/2025 11:00 AM EDT Office Visit [facility] Neurology - [address] 1021 [facility] 200 [place] [address] Matilda Arita APRN [address] [place] [address] 200 [place] [address] 01/28/2025 9:45 AM EDT Office Visit [facility] [place] [phone] Phuong Lewis MD [address] [place] [address] [address] [place] [address] documented as of this encounter Visit Diagnoses Not on filedocumented in this encounter Care Teams Freight Air Brake Fitter Relationship Specialty Start Date End Date Eladio Lomas MD 1210 [facility] [address] [place] [address] Medical Oncologist Hematology and Oncology 07/08/22 Breanna Crow, PARebelC 7[address] [facility] [address] [place], [place] [id number] Physician Truck Caterer Oncology 07/08/22 documented as of this encounter
--- OUTSIDE RECORDS SUMMARY | 2024-12-26 08:51 | XMS_ITS | Encounter Summary ---
Author Organization [employer] ([place], [place], [place], [place]) Address [address] [place] [address] Care Team Providers Care Honey Processor Name Role Phone Eladio Lomas MD Unavailable Breanna Crow PA-C Unavailable [phone] Encounter Details Date Type Department Care Team (Late st Contact Info) Description 01/01/2022 Transcribed Document [facility] [place] [address] [place] [address] ProviderJailyn MD [address] [place] [address] Social History Tobacco Use Types [...] these instructions at home: Medicines ??? Take brqa-imp-xcoagrt and prescription medicines as told by your [...] keep your urine pale yellow. ? Take sebr-wyf-kyljixk or prescription medicines. ? Eat foods that [...] and water are not available, use hand slot service specialist. ? Change your dressing as told [...] safe to drive. General instructions ??? Take jlms-gam-takblod and prescription medicines only as told by [...] provider. Document Revised: 08/06/2020 Document Reviewed: 08/06/2020 [employer] Patient Education ? 2021 [employer] Laminectomy, Care After This sheet gives [...] these instructions at home: Medicines ??? Take yzvr-qfk-okscnsy and prescription medicines only as told by [...] keep your urine pale yellow. ? Take lloa-cfr-lathwnd or prescription medicines. ? Eat foods that [...] and water are not available, use hand slot service specialist. ? Change your dressing as told [...] provider. Document Revised: 11/12/2019 Document Reviewed: 11/12/2019 [employer] Patient Education ? 2021 [employer]. documented in this encounter Plan of Treatment Upcoming Encounters Date Type Department Care Team (Late st Contact Info) Description 01/23/2025 11:00 AM EDT Office Visit [facility] Neurology - [facility] [address] [place] [address] Matilda Arita APRN 1021 [facility] 200 [place] [address] 01/28/2025 9:45 AM EDT Office Visit [facility] Electrophysiology 1401 [place] [address] Phuong Lewis MD 1401 [facility] [address] [place] [address] documented as of this encounter Visit Diagnoses Not on filedocumented in this encounter Care Teams Honey Processor Relationship Specialty Start Date End Date Eladio Lomas MD 1210 [facility] [address] [place] [address] Medical Oncologist Hematology and Oncology 07/08/22 Breanna Crow, PARebelC [address] [facility] [address] [place] [address] Physician Fraud Prevention Analyst Oncology 07/08/22 documented as of this encounter
--- OUTSIDE RECORDS SUMMARY | 2024-12-26 08:51 | XMS_ITS | Encounter Summary ---
Author Organization [employer] ([place], [place], [place], [place]) Address [address] [place] [address] Care Team Providers Care Executive Kitchen Manager Name Role Phone Eladio Lomas MD Unavailable Breanna Crow PA-C Unavailable [phone] Encounter Details Date Type Department Care Team (Late st Contact Info) Description 10/17/2021 Transcribed Document [facility] Family Medicine [address] [place] [address] ProviderJailyn MD [address] [place] [address] Social History Tobacco Use Types [...] lower motor neuron process.. Integumentary: Warm, Dry, [place]. Neurologic: Alert, Oriented, Cranial Nerves II-XII are [...] the rash. Leukocytosis, procalcitonin ordered. Disposition: Pending aws consultant recommendations and plans, still needs further [...] # 4.35 K/uL (High) 10/17/2021 02:21 EDT [place] % 15.2 % (High) 10/17/2021 02:21 EDT [place] # 2.14 K/uL (High) 10/17/2021 02:21 EDT [...] Second(s) 10/17/2021 02:21 EDT Electronically signed by [facility], [facility] Conversion Injection Mold Technician Cerner at 08/17/2022 6:20 PM CDT documented in this encounter Plan of Treatment Upcoming Encounters Date Type Department Care Team (Late st Contact Info) Description 01/23/2025 11:00 AM EDT Office Visit [facility] Neurology - [address] 1021 [facility] 200 [place] [address] Matilda Arita APRN 1021 [facility] 200 [place] [address] 01/28/2025 9:45 AM EDT Office Visit [facility] Electrophysiology [address]01 [place] [address] Phuong Lewis MD 1401 [facility] [address] [place] [id number] documented as of this encounter Visit Diagnoses Not on filedocumented in this encounter Care Teams Executive Kitchen Manager Relationship Specialty Start Date End Date Eladio Lomas MD 1210 [facility] [address] [place] [address] Medical Oncologist Hematology and Oncology 07/08/22 Breanna Crow, JUAN PABLOC [address] [place] [address] Physician Security Intern Oncology 07/08/22 documented as of this encounter
--- OUTSIDE RECORDS SUMMARY | 2024-12-26 08:51 | XMS_ITS | Encounter Summary ---
Author Organization [facility] ([place], [place], [place], [place]) Address [address] [place] [address] Care Team Providers Care Product Development Coordinator Name Role Phone Eladio Lomas MD Unavailable Breanna Crow PA-C Unavailable [phone] Encounter Details Date Type Department Care Team (Late st Contact Info) Description 10/17/2021 Transcribed Document [facility] [place] [address] [place] [address] ProviderJailyn MD [address] [place] [...] # 4.35 K/uL (High) 10/17/2021 02:21 EDT [place] % 15.2 % (High) 10/17/2021 02:21 EDT [place] # 2.14 K/uL (High) 10/17/2021 02:21 EDT [...] Second(s) 10/17/2021 02:21 EDT Electronically signed by [facility] Conversion Fiber Design Engineer Cerner at 08/17/2022 6:17 PM CDT documented in this encounter Plan of Treatment Upcoming Encounters Date Type Department Care Team (Late st Contact Info) Description 01/23/2025 11:00 AM EDT Office Visit [facility] Neurology - [address] [place] [address] Matilda Arita APRN [address] [place] [address] 01/28/2025 9:45 AM EDT Office Visit [facility] Electrophysiology [address] [place] [phone] Phuong Lewis MD 1401 [facility] [address] [place] [address] documented as of this encounter Visit Diagnoses Not on filedocumented in this encounter Care Teams Product Development Coordinator Relationship Specialty Start Date End Date Eladio Lomas MD 1210 [facility] [address] [place] [address] Medical Oncologist Hematology and Oncology 07/08/22 Breanna Crow, PACecilia 6[address] [facility] [address] [place] [address] Physician Strip Mine Supervisor Oncology 07/08/22 documented as of this encounter
--- OUTSIDE RECORDS SUMMARY | 2024-12-26 08:51 | XMS_ITS | Encounter Summary ---
Author Organization [employer] ([place], [place], [place], [place]) Address [address] [place] [address] Care Team Providers Care Cloth Booker Name Role Phone Eladio Lomas MD Unavailable Breanna Crow PA-C Unavailable [phone] Encounter Details Date Type Department Care Team (Late st Contact Info) Description 10/15/2021 Transcribed Document [facility] [place] [address] [place] [address] ProviderJailyn MD [address] [place] [address] Social History Tobacco Use Types [...] [facility] Neurology - [address] [address] Matilda Arita APRN [address] [place] [address] 01/28/2025 9:45 AM EDT Office Visit [facility] Electrophysiology [address] [place] [phone] Phuong Lewis MD 1401 [facility] [address] [place], [place] [id number] documented as of this encounter Visit Diagnoses Not on filedocumented in this encounter Care Teams Cloth Booker Relationship Specialty Start Date End Date Eladio Lomas MD 1210 [facility] [address] [place] [address] Medical Oncologist Hematology and Oncology 07/08/22 Breanna Crow PA-C 3470 [facility] [address] [place] [address] Physician Academic Affairs Manager Oncology 07/08/22 documented as of this encounter
--- OUTSIDE RECORDS SUMMARY | 2024-12-26 08:52 | XMS_ITS | Encounter Summary ---
Author Organization [employer] ([place], [place], [place], [place]) Address [address] [place] [address] Care Team Providers Care Director Imaging Name Role Phone Eladio Lomas MD Unavailable Breanna Crow PA-C Unavailable [phone] Encounter Details Date Type Department Care Team (Late st Contact Info) Description 10/16/2021 Transcribed Document [facility] [place] Family Medicine [address] [place] [address] ProviderJailyn MD [address] [place] [address] Social History Tobacco Use Types [...] Sent to Post Acute Providers : No [facility] Quality Web Info Shared w Pt/Fam : [...] Description 01/23/2025 11:00 AM EDT Office Visit [facility] Neurology - [address] 1021 [facility] [address] [place] [address] Matilda Arita APRN 1021 [facility] [address] [place] [address] 01/28/2025 9:45 AM EDT Office Visit [facility] Electrophysiology [address] [place] [address] Phuong Lewis MD 1401 [facility] [address] [place] [address] documented as of this encounter Visit Diagnoses Not on filedocumented in this encounter Care Teams Director Imaging Relationship Specialty Start Date End Date Eladio Lomas MD 1210 [facility] [address] [place] [address] Medical Oncologist Hematology and Oncology 07/08/22 Breanna Crow PARbeelC 3470 [facility] [address] [place] [address] Physician Cloth Spreader Screen Printing Oncology 07/08/22 documented as of this encounter
--- OUTSIDE RECORDS SUMMARY | 2024-12-26 08:52 | XMS_ITS | Encounter Summary ---
Author Organization [employer] ([place], [place], [place], [place]) Address [address] [place] [address] Care Team Providers Care Manufacturing Sales Representative Name Role Phone Eladio Lomas MD Unavailable Breanna Crow PA-C Unavailable [phone] Encounter Details Date Type Department Care Team (Late st Contact Info) Description 10/16/2021 Transcribed Document [facility] [place] [address] [place] [address] ProviderJailyn MD [address] [place] [address] Social History Tobacco Use Types [...] At risk for sleep apnea / IMO [id number] / Confirmed, Active Problems (2) At risk for sleep apnea Mitral valve prolapse Objective VS/Measurements Vitals Signs (last 24 hrs) Last Charted Minimum Maximum Temp 98.1 (SEP 17 11:44) 97.4 (SEP 17 06:00) 98.1 (SEP 16 17:56) Mon HR 82 (SEP 17 11:44) 71 (SEP 16 15:42) 85 (SEP 17 06:00) Resp Rate 16 (SEP 17 11:44) 16 (SEP 16 17:56) 18 (SEP 16 15:00) SBP 134 (OCT 16 11:44) 134 (SEP 17 11:44) H 178 (SEP 16 22:02) DBP 67 (SEP 17 11:44) 61 (SEP 16 15:42) 71 (SEP 16 17:56) MAP 83 (OCT 16 11:44) 83 (OCT 16 11:44) 95 (SEP 16 17:56) SpO2 96 (OCT 16 11:44) L 92 (OCT 16 06:00) 99 (SEP 16 17:56) Electronically signed by [facility], [facility] Conversion Warehouse General Laborer Cerner at 08/17/2022 6:04 PM CDT documented in this encounter Plan of Treatment Upcoming Encounters Date Type Department Care Team (Late st Contact Info) Description 01/23/2025 11:00 AM EDT Office Visit [facility] Neurology - [facility] [address] [address] Matilda Arita APRN [address] [place] [address] 01/28/2025 9:45 AM EDT Office Visit [facility] Electrophysiology 1401 [place] [address] [place] [address] [place] [address] [address] [place] [address] documented as of this encounter Visit Diagnoses Not on filedocumented in this encounter Care Teams Manufacturing Sales Representative Relationship Specialty Start Date End Date Eladio Lomas MD 1210 [facility] [address] [place], [place] [phone] Medical Oncologist Hematology and Oncology 07/08/22 Breanna Crow PA-C 94[address] [facility] [address] [place] [address] Physician Digital Associate Media Director Oncology 07/08/22 documented as of this encounter
--- OUTSIDE RECORDS SUMMARY | 2024-12-26 08:52 | XMS_ITS | Encounter Summary ---
Author Organization [employer] ([place], [place], [place], [place]) Address [address] [place] [address] Care Team Providers Care Communications Professor Name Role Phone Eladio Lomas MD Unavailable Breanna Crow PA-C Unavailable [phone] Encounter Details Date Type Department Care Team (Late st Contact Info) Description 10/16/2021 Transcribed Document [facility] [address] [place] [address] ProvideraJilyn MD [address] [place] [address] Social History Tobacco Use Types [...] - 10/16/2021 14:01 EDT Electronically signed by [facility], [facility] Conversion Director Of Math Cerner at 08/17/2022 5:59 PM CDT documented in this encounter Plan of Treatment Upcoming Encounters Date Type Department Care Team (Late st Contact Info) Description 01/23/2025 11:00 AM EDT Office Visit [facility] Neurology - [address] 1021 [facility] [address] [place] [address] Matilda Arita APRN 1021 [facility] [address] [place] [address] 01/28/2025 9:45 AM EDT Office Visit [facility] Electrophysiology [address] [place] [phone] [place] [address] [place] [address] [address] [place] [phone] documented as of this encounter Visit Diagnoses Not on filedocumented in this encounter Care Teams Communications Professor Relationship Specialty Start Date End Date Eladio Lomas MD 1210 [facility] [address] [place] [address] Medical Oncologist Hematology and Oncology 07/08/22 Breanna Crow PA-C 9814 [facility] [address] [place] [address] Physician Shopping Inspector Oncology 07/08/22 documented as of this encounter
--- OUTSIDE RECORDS SUMMARY | 2024-12-26 08:52 | XMS_ITS | Encounter Summary ---
Author Organization [employer] ([place], [place], [place], [place]) Address [address] [place] [address] Care Team Providers Care Pierce And Shave Press Operator Name Role Phone Eladio Lomas MD Unavailable Breanna Crow PA-C Unavailable [phone] Encounter Details Date Type Department Care Team (Late st Contact Info) Description 01/01/2022 Transcribed Document [facility] [place] [address] [place] [address] ProviderJailyn MD [address] [place] [address] Social History Tobacco Use Types [...] Date Ata rded Speak language other than Guatemalan at home Not on file 05/13/2023 Want [...] Historical Provider, - 01/01/2022 12:59 [place] [address] CORBNI HU :1950 Visit Time:01/01/2022 What to do [...] for follow-up date and appointment time Activity: [place] dressing. Do not remove. May shower with [...] MD-ORT When 01/14/2022 11:00 AM EDT Where: [address] [place] [address] [address] [place] [address]- Medications What How Much When Instructions Next Dose acetaminophen-oxyCODONE (Percocet 7.5/ 325 oral tablet) 1 Tablet(s) Oral Three Times A Day as needed for for pain Pickup at [facility] acetaminophen (Tylenol 325 mg oral tablet) 2 Tablet(s) Oral Every 4 Hours as needed for Pain (Mild 1-3) ergocalciferol (ergocalciferol 50 mcg (2000 intl units) oral capsule) 1 Capsule(s) Oral Every Day Duration: 14 Day(s) multivitamin (Multiple Vitamins oral tablet) 1 Tablet(s) Oral Every Day valACYclovir (Valtrex 1 g oral tablet) 1 Tablet(s) Oral Every Day Pharmacy Information [facility]: [address] [place] [phone] Take your medications faithfully. Do NOT skip [...] these instructions at home: Medicines ??? Take vova-aan-ftddltw and prescription medicines as told by your [...] keep your urine pale yellow. ? Take ieaf-tqv-apflpqw or prescription medicines. ? Eat foods that [...] and water are not available, use hand diver's tender. ? Change your dressing as told by [...] safe to drive. General instructions ??? Take qqve-rgq-nzfgsnh and prescription medicines only as told by [...] provider. Document Revised: 08/06/2020 Document Reviewed: 08/06/2020 [employer] Patient Education ?? 2021 [employer] Inc. Laminectomy, Care After This sheet gives [...] these instructions at home: Medicines ??? Take dfqk-tkw-reiwcwm and prescription medicines only as told by [...] keep your urine pale yellow. ? Take vaik-ghk-tynhott or prescription medicines. ? Eat foods that [...] and water are not available, use hand diver's tender. ? Change your dressing as told by [...] provider. Document Revised: 11/12/2019 Document Reviewed: 11/12/2019 [employer] Patient Education ?? 2021 [employer]. Emergency Awareness and Preventative Care [place] is [...] Assistance with quitting is available by contacting 4-000-ZKHB-NOW. This is a free resource providing counseling, [...] was given the opportunity to ask questions. Patient/Demolition Hammer Operator Name: Patient/Demolition Hammer Operator Signature: Relationship to Patient: Clinician/Hospital Demolition Hammer Operator Signature: Date: documented in this encounter Plan of Treatment Upcoming Encounters Date Type Department Care Team (Late st Contact Info) Description 01/23/2025 11:00 AM EDT Office Visit [facility] Neurology - [address] [place] [address] Matilda Arita APRN 1021 [facility] [address] [place] [address] 01/28/2025 9:45 AM EDT Office Visit [facility] Electrophysiology [address] [place] [phone] Phuong Lewis MD 1401 [facility] [address] [place] [address] documented as of this encounter Visit Diagnoses Not on filedocumented in this encounter Care Teams Pierce And Shave Press Operator Relationship Specialty Start Date End Date Eladio Lomas MD 1210 [facility] [address] [place] [address] Medical Oncologist Hematology and Oncology 07/08/22 Breanna Crow, PACecilia 3515 [facility] [address] [place] [address] Physician Map Editor Oncology 07/08/22 documented as of this encounter
--- OUTSIDE RECORDS SUMMARY | 2024-12-26 08:52 | XMS_ITS | Encounter Summary ---
Author Organization [employer] ([place], [place], [place], [place]) Address [address] [place] [address] Care Team Providers Care Enrollment Nurse Name Role Phone Eladio Lomas MD Unavailable Breanna Crow PA-C Unavailable [phone] Encounter Details Date Type Department Care Team (Late st Contact Info) Description 01/01/2022 Transcribed Document [facility] Family Medicine [address] [place] [address] ProviderJailyn MD [address] [place] [address] Social History Tobacco Use Types [...] Date Ata rded Speak language other than Spanish at home Not on file 05/13/2023 Want [...] HU /Sex: 1950 Male Med Rec #: [id number] Physician: GARCIA WORKMAN MD-ORT Financial #: [id number] Pt. Type: O Room/Bed: [facility] Admit/Disch: 01/01/22 09:26:00 - Institution: [facility] OR PostOp Case Times Entry 1 In PACU II 01/01/22 12:41:00 Ready for PACU II 01/01/22 13:10:00 Discharge Discharge from PACU 01/01/22 13:20:00 II Last Modified By: DAYANA BALLARD, RN 01/01/22 13:28:32 [facility] OR PostOp Case Times Audit 01/01/22 13:28:32 Lay Midwife: [email or web address] Modifier: [email or web address] <+> 1 Ready for PACU II Discharge <+> 1 Discharge from PACU II Finalized By: DAYANA BALLARD, RN Document Signatures Signed By: DAYANA BALLARD, RN 01/01/22 13:[address] Huy [facility] Conversion Business Office Manager Cerner at 08/17/2022 6:16 PM CDT documented in this encounter Plan of Treatment Upcoming Encounters Date Type Department Care Team (Late st Contact Info) Description 01/23/2025 11:00 AM EDT Office Visit [facility] Neurology - [address] [address] Matilda Arita APRN [address] [place] [phone] 01/28/2025 9:45 AM EDT Office Visit [facility] Electrophysiology [address] [place] [address] [place] [address] [place] [address] [address] [place] [address] documented as of this encounter Visit Diagnoses Not on filedocumented in this encounter Care Teams Enrollment Nurse Relationship Specialty Start Date End Date Eladio Lomas MD 1210 [facility] [address] [place], [place] [phone] Medical Oncologist Hematology and Oncology 07/08/22 Breanna Crow PA-C 4303 [facility] 300 [place] [address] Physician Head Chef Oncology 07/08/22 documented as of this encounter
--- OUTSIDE RECORDS SUMMARY | 2024-12-26 08:53 | XMS_ITS | Encounter Summary ---
Author Organization [employer] ([place], [place], [place], [place]) Address [address] [place] [address] Care Team Providers Care Teacher Vocational Training Name Role Phone Eladio Lomas MD Unavailable Breanna Crow PA-C Unavailable [phone] Encounter Details Date Type Department Care Team (Late st Contact Info) Description 10/16/2021 Transcribed Document [email or web address] [email or web address] [place] [address] Romero Dias MD [address] [facility] [address] [place] [address] Social History Tobacco Use Types [...] MD - 10/16/2021 8:39 AM EDT Patient: CORBIN HU Age: 71 years Sex: [...] Shortness of Breath Lovenox: 40 mg, SubCutaneous, [id number] MiraLax: 17 Gram, Oral, Daily, PRN: Constipation [...] mL inj 40 mg 0.4 mL, SubCutaneous, [id number] famotidine 20 mg tab 20 mg 1 [...] At risk for sleep apnea / IMO [id number] / Confirmed, Active Problems (2) At risk [...] lower motor neuron process.. Integumentary: Warm, Dry, [place]. Neurologic: Alert, Oriented, Cranial Nerves II-XII are [...] Description 01/23/2025 11:00 AM EDT Office Visit [facility] Neurology - [facility] [address] [address] Matilda Arita APRN 1021 [facility] 200 [place] [address] 01/28/2025 9:45 AM EDT Office Visit [facility] Electrophysiology [address] [place] [phone] [place] [address] [place] [address] [address] [place] [address] documented as of this encounter Visit Diagnoses Not on filedocumented in this encounter Care Teams Teacher Vocational Training Relationship Specialty Start Date End Date Eladio Lomas MD 1210 [facility] [address] [place] [address] Medical Oncologist Hematology and Oncology 07/08/22 Breanna Crow, PACecilia 9810 [facility] [address] [place] [address] Physician Plisse Machine Operator Oncology 07/08/22 documented as of this encounter
--- OUTSIDE RECORDS SUMMARY | 2024-12-26 08:53 | XMS_ITS | Encounter Summary ---
Author Organization [employer] ([place], [place], [place], [place]) Address [address] [place] [address] Care Team Providers Care Metals Analyst Name Role Phone Eladio Lomas MD Unavailable Breanna Crow PA-C Unavailable [phone] Encounter Details Date Type Department Care Team (Late st Contact Info) Description 10/16/2021 Transcribed Document [facility] Family Medicine [address] [place] [address] ProviderJailyn MD [address] [place] [address] Social History Tobacco Use Types [...] Description 01/23/2025 11:00 AM EDT Office Visit [facility] Neurology - [place] [id number] [phone] Matilda Arita APRN [facility] [address] [phone] 01/28/2025 9:45 AM EDT Office Visit [facility] Electrophysiology [address] [place] [address] Phuong Lewis MD 1401 [facility] [address] [place] [address] documented as of this encounter Visit Diagnoses Not on filedocumented in this encounter Care Teams Metals Analyst Relationship Specialty Start Date End Date Eladio Lomas MD 1210 [facility] [address] [place] [address] Medical Oncologist Hematology and Oncology 07/08/22 Breanna Crow, PARebelC 3470 [facility] 300 [place] [address] Physician Fire Management Officer Oncology 07/08/22 documented as of this encounter
--- OUTSIDE RECORDS SUMMARY | 2024-12-26 08:53 | XMS_ITS | Encounter Summary ---
Author Organization [employer] ([place], [place], [place], [place]) Address [address] [place] [address] Care Team Providers Care Batch Or Continuous Still Operator Name Role Phone Eladio Lomas MD Unavailable Breanna Crow PA-C Unavailable [phone] Encounter Details Date Type Department Care Team (Late st Contact Info) Description 10/16/2021 Transcribed Document [facility] [place] [address] [place] [address] ProviderJailyn MD [address] [place] [address] Social History Tobacco Use Types [...] Historical Provider, - 10/16/2021 2:00 AM CDT Salon Stylist Details Entered On: 10/16/2021 4:15 EDT Performed On: 10/16/2021 2:00 EDT by Tessy Gramajo RN-PATIENT CARE BEDSIDE NON-EXEMPT Order Details Order Detail : N/A Patient Needs Meds Crushed/Liquid : No Tessy Gramajo RN-PATIENT CARE BEDSIDE NON-EXEMPT - 10/16/2021 4:15 EDT Electronically signed by Huy [facility] Conversion Manager Document Cerner at 08/17/2022 6:18 PM CDT documented in this encounter Plan of Treatment Upcoming Encounters Date Type Department Care Team (Late st Contact Info) Description 01/23/2025 11:00 AM EDT Office Visit [facility] Neurology - [address] 1021 [facility] 200 [place] [address] Matilda Arita APRN 1021 [facility] 200 [place] [address] 01/28/2025 9:45 AM EDT Office Visit [facility] Electrophysiology [address] [place] [address] Phuong Lewis MD 1401 [facility] [address] [place] [address] documented as of this encounter Visit Diagnoses Not on filedocumented in this encounter Care Teams Batch Or Continuous Still Operator Relationship Specialty Start Date End Date Eladio Lomas MD 1210 [facility] [address] [place] [address] Medical Oncologist Hematology and Oncology 07/08/22 Breanna Crow PA-C 3500 [facility] [address] [place] [address] Physician Contracting Officer Oncology 07/08/22 documented as of this encounter
--- OUTSIDE RECORDS SUMMARY | 2024-12-26 08:53 | XMS_ITS | Encounter Summary ---
Author Organization [employer] ([place], [place], [place], [place]) Address [address] [place] [address] Care Team Providers Care Street Superintendent Name Role Phone Eladio Lomas MD Unavailable Breanna Crow PA-C Unavailable [phone] Encounter Details Date Type Department Care Team (Late st Contact Info) Description 10/14/2021 Transcribed Document [facility] Family Medicine [address] [place] [address] ProviderJailyn MD [address] [place], [...] : 3 - Urgent Tracking Group : [facility] ED East UGO FAN RN - 10/14/2021 18:31 EDT Mode of Arrival : Wheelchair Transported to ED by : Private vehicle To Room Via : Wheelchair Accompanied By : Spouse ED Vital Signs : Document Height & Weight : Document ED Allergies : Document ED Reason for Visit : Document Tetanus Immunization : Greater than 5 years Track Laying Equipment Operator Needed : No UGO FAN RN - [...] EDT) Problems(Active) Mitral valve prolapse (SNOMED CT :[id number] ) Name of Problem: Mitral valve prolapse ; Recorder: Miranda Flor RN; Confirmation: Confirmed ; Classification: Patient Stated ; Code: [id number] ; Contributor System: [employer] ; Last Updated: 11/28/2017 15:14 EDT ; Life Cycle Date: 11/28/2017 ; Life Cycle Status: Active ; Vocabulary: SNOMED CT Diagnoses(Active) Paresthesia Date: 10/14/2021 ; Diagnosis Type: Reason For Visit ; Confirmation: Complaint of ; Clinical Dx: Paresthesia ; Classification: Medical ; Clinical Service: Emergency medicine ; Code: PNED ; Probability: 0 ; Diagnosis Code: [id number] ED Height and Weight Height Source : Stated Height Entry Format : [place] Height, Feet : 5 ft(Converted to: 152 cm, 60 Inch) Height, Inches : 6 Inch(Converted to: 0 ft 6 Inch, 15.24 cm) Clinical Height : 167.64 cm Weight Source, ED : Critical estimated dosing weight Weight Entry Format : [place] Weight, Pounds : 180 lb Clinical Dosing Weight : 81.82 kg Body Surface Area (BSA) : 1.91 m2 Body Mass Index : 29.1 kg/m2 (HI) [place] Body Weight (IBW) : 62.88 kg UGO FAN RN - 10/14/2021 18:31 EDT Patient/Family Track Laying Equipment Operator Communication Primary Language : Emirati UGO FAN, RN - 10/14/2021 18:31 EDT documented in this encounter Plan of Treatment Upcoming Encounters Date Type Department Care Team (Late st Contact Info) Description 01/23/2025 11:00 AM EDT Office Visit [facility] [facility] [address] [place] [address] Matilda Arita APRN [address] [place] [address] 01/28/2025 9:45 AM EDT Office Visit [facility] Electrophysiology [address] [place] [address] Phuong Lewis MD 1401 [facility] [address] [place] [phone] documented as of this encounter Visit Diagnoses Not on filedocumented in this encounter Care Teams Street Superintendent Relationship Specialty Start Date End Date Eladio Lomas MD 1210 [facility] [address] [place] [address] Medical Oncologist Hematology and Oncology 07/08/22 Breanna Crow PA-C 3470 [facility] [address] [place] [address] Physician Cut Out Press Operator Oncology 07/08/22 documented as of this encounter
--- OUTSIDE RECORDS SUMMARY | 2024-12-26 08:53 | XMS_ITS | Encounter Summary ---
Author Organization [employer] ([place], [place], [place], [place]) Address [address] [place] [address] Care Team Providers Care Sheet Sorter Name Role Phone Eladio Lomas MD Unavailable Breanna Crow PA-C Unavailable [phone] Encounter Details Date Type Department Care Team (Late st Contact Info) Description 10/16/2021 Transcribed Document [facility] Family Medicine [address] [place] [address] ProviderJailyn MD [address] [place] [address] Social History Tobacco Use Types [...] Date Ata rded Speak language other than Portuguese at home Not on file 05/13/2023 Want [...] - 10/16/2021 14:27 EDT Electronically signed by [facility] Conversion Lusterer Cerner at 08/17/2022 6:05 PM CDT documented in this encounter Plan of Treatment Upcoming Encounters Date Type Department Care Team (Late st Contact Info) Description 01/23/2025 11:00 AM EDT Office Visit [facility] Neurology - [address] 1021 [facility] [address] [place] [address] Matilda Arita APRN [address] [place] [address] 01/28/2025 9:45 AM EDT Office Visit [facility] Electrophysiology [address] [place] [phone] [place] [address] [place] [address] [address] [place] [phone] documented as of this encounter Visit Diagnoses Not on filedocumented in this encounter Care Teams Sheet Sorter Relationship Specialty Start Date End Date Eladio Lomas MD 1210 [facility] [address] [place] [address] Medical Oncologist Hematology and Oncology 07/08/22 Breanna Crow PA-C 0958 [facility] [address] [place] [address] Physician Field Tax Auditor Oncology 07/08/22 documented as of this encounter
--- OUTSIDE RECORDS SUMMARY | 2024-12-26 08:53 | XMS_ITS | Encounter Summary ---
Author Organization [employer] ([place], [place], [place], [place]) Address [address] [place] [address] Care Team Providers Care Military Exchange Wireless Manager Name Role Phone Eladio Lomas MD Unavailable Breanna Crow PA-C Unavailable [phone] Encounter Details Date Type Department Care Team (Late st Contact Info) Description 10/16/2021 Transcribed Document [facility] [place] [address] [place] [address] ProviderJailyn MD [address] [place], [...] lower motor neuron process.. Integumentary: Warm, Dry, [place]. Neurologic: Alert, Oriented, Cranial Nerves II-XII are [...] the setting of recent varicella. Disposition: Pending sr. consultant recommendations and plan. May need rehab [...] Lymph # 3.37 K/uL 10/16/2021 04:[address] [place] % 19.5 % (High) 10/16/2021 04:[address] [place] # 2.25 K/uL (High) 10/16/2021 04:00 EDT [...] ng/mL 10/16/2021 04:00 EDT Electronically signed by [facility] Conversion Battery Tester Cerner at 08/17/2022 6:11 PM CDT documented in this encounter Plan of Treatment Upcoming Encounters Date Type Department Care Team (Late st Contact Info) Description 01/23/2025 11:00 AM EDT Office Visit [facility] Neurology - [address] [address] Matilda Arita APRN [address] [address] 01/28/2025 9:45 AM EDT Office Visit [facility] Electrophysiology [address] [place] [address] Phuong Lewis MD 1401 [facility] [address] [place] [address] documented as of this encounter Visit Diagnoses Not on filedocumented in this encounter Care Teams Military Exchange Wireless Manager Relationship Specialty Start Date End Date Eladio Lomas MD 1210 [facility] [address] [place] [address] Medical Oncologist Hematology and Oncology 07/08/22 Breanna Crow PA-C 6893 [facility] [address] [place] [address] Physician Dye Box Operator Oncology 07/08/22 documented as of this encounter
--- OUTSIDE RECORDS SUMMARY | 2024-12-26 08:53 | XMS_ITS | Encounter Summary ---
Author Organization [employer] ([place], [place], [place], [place]) Address [address] [place] [address] Care Team Providers Care Insecticide Maker Name Role Phone Eladio Lomas MD Unavailable Breanna Crow PA-C Unavailable [phone] Encounter Details Date Type Department Care Team (Late st Contact Info) Description 10/16/2021 Transcribed Document [facility] Family Medicine [address] [place] [address] ProviderJailyn MD [address] [place] [address] Social History Tobacco Use Types [...] Description 01/23/2025 11:00 AM EDT Office Visit [facility] Neurology - [address] 1021 [facility] [address] [place] [address] Matilda Arita APRN 1021 [facility] [address] [place] [address] 01/28/2025 9:45 AM EDT Office Visit [facility] Electrophysiology [address]01 [place] [address] [place] [address] [place] [address] [address] [place] [address] documented as of this encounter Visit Diagnoses Not on filedocumented in this encounter Care Teams Insecticide Maker Relationship Specialty Start Date End Date Eladio Lomas MD 1210 [facility] [address] [place] [address] Medical Oncologist Hematology and Oncology 07/08/22 Breanna Crow PA-C 3470 [facility] [address] [place] [address] Physician Buyer Tobacco Head Oncology 07/08/22 documented as of this encounter
--- OUTSIDE RECORDS SUMMARY | 2024-12-26 08:53 | XMS_ITS | Encounter Summary ---
Author Organization [employer] ([place], [place], [place], [place]) Address [address] [place] [address] Care Team Providers Care Slat Basket Maker Machine Name Role Phone Eladio Lomas MD Unavailable Breanna Crow PA-C Unavailable [phone] Encounter Details Date Type Department Care Team (Late st Contact Info) Description 10/16/2021 Transcribed Document [facility] Family Medicine [address] [place] [address] ProviderJailyn MD [address] [place] [address] Social History Tobacco Use Types [...] On: 10/16/2021 15:13 EDT by Jessica Rivera, Rope Tow Operator-Health Unit Coord Phone Call for Consults Consult Phone Call/Page Attempt : First call Physician Covering for Consult : TRENA DONAHUE MD-INF Consult, Additional Information : Consult called in to Dr. Trena Donahue, he stated that if Dr Edwin Carver had not seen them today, he would see them tomorrow Jessica Rivera, [facility]-Health Unit Coord - 10/16/2021 17:43 EDT Electronically signed by Huy [facility] Conversion City Magistrate Cerner at 08/17/2022 6:08 PM CDT documented in this encounter Plan of Treatment Upcoming Encounters Date Type Department Care Team (Late st Contact Info) Description 01/23/2025 11:00 AM EDT Office Visit [facility] Neurology - [address] 1021 [facility] [address] [place] [address] Matilda Arita APRN 1021 [facility] [address] [place] [address] 01/28/2025 9:45 AM EDT Office Visit [facility] Electrophysiology [address] [place] [address] Phuong Lewis MD 1401 [facility] [address] [place], [place] [id number] documented as of this encounter Visit Diagnoses Not on filedocumented in this encounter Care Teams Slat Basket Maker Machine Relationship Specialty Start Date End Date Eladio Lomas MD 1210 [facility] [address] [place] [address] Medical Oncologist Hematology and Oncology 07/08/22 Breanna Crow PA-C 7030 [facility] [address] [place], [place] [phone] Physician Camper Assembler Oncology 07/08/22 documented as of this encounter
--- OUTSIDE RECORDS SUMMARY | 2024-12-26 08:55 | XMS_ITS | Encounter Summary ---
Author Organization [employer] ([place], [place], [place], [place]) Address [address] [place] [address] Care Team Providers Care Sewer Tapper Name Role Phone Eladio Lomas MD Unavailable Breanna Crow PA-C Unavailable [phone] Encounter Details Date Type Department Care Team (Late st Contact Info) Description 10/15/2021 Transcribed Document [facility] [place] [address] [place] [address] ProviderJailyn MD [address] [place] [address] Social History Tobacco Use Types [...] On: 10/15/2021 12:50 EDT by Miladys Carter, [facility]-Health Unit Coord Phone Call for Consults Consult Reason : spine for right L5 radiculopathy causing foot drop Physician Requesting Consult : ROMERO INGRAM MD-SERENE Physician Requested for Consult : SHARON PATRICIO MD-ORT Date and Time Call Returned : 10/15/2021 14:40 EDT Consult, Additional Information : Spoke with Dr. Rosenberg on the phone concerning the consult. Miladys Carter, [facility]-Health Unit Coord - 10/15/2021 14:41 EDT Electronically signed by [facility], [facility] Conversion Criminal Intelligence Specialist Cerner at 08/17/2022 5:55 PM CDT documented in this encounter Plan of Treatment Upcoming Encounters Date Type Department Care Team (Late st Contact Info) Description 01/23/2025 11:00 AM EDT Office Visit [facility] Neurology - [facility] 1021 [facility] 200 [place] [address] Matilda Arita APRN 1021 [facility] [address] [place] [phone] 01/28/2025 9:45 AM EDT Office Visit [facility] Electrophysiology [address] [place] [phone] [place] [address] [place] [address] [address] [place] [phone] documented as of this encounter Visit Diagnoses Not on filedocumented in this encounter Care Teams Sewer Tapper Relationship Specialty Start Date End Date Eladio Lomas MD 1210 [facility] [address] [place] [address] Medical Oncologist Hematology and Oncology 07/08/22 Breanna Crow PA-C 4020 [facility] [address] [place] [address] Physician Dynamics Ax Solution Architect Oncology 07/08/22 documented as of this encounter
--- OUTSIDE RECORDS SUMMARY | 2024-12-26 08:55 | XMS_ITS | Encounter Summary ---
Author Organization [employer] ([place], [place], [place], [place]) Address [address] [place] [address] Care Team Providers Care Email Operations Manager Name Role Phone Eladio Lomas MD Unavailable Breanna Crow PA-C Unavailable [phone] Encounter Details Date Type Department Care Team (Late st Contact Info) Description 10/14/2021 Transcribed Document [facility] [place] [address] [place] [address] ProviderJailyn MD [address] [place] [address] Social History Tobacco Use [...] Date Ata rded Speak language other than Dutch at home Not on file 05/13/2023 Want [...] Historical Provider, - 10/14/2021 6:20 PM CDT [place] Suicide Severity Rating Scale (C-SSRS) Entered On: 10/14/2021 18:34 EDT Performed On: 10/14/2021 18:33 EDT by UGO FAN, RN [place] Suicide Severity Rating Scale (C-SSRS) CSSRS Past Month Wish to be : No CSSRS Past Month Suicidal Thoughts : No CSSRS Lifetime Suicide Behavior : No Suicide Severity Rating Score : 0 Suicide Severity Rating : No Additional Care Required at this time Thoughts of Harming/Killing Others : No UGO FAN RN - 10/14/2021 18:33 EDT Electronically signed by Huy [facility] Conversion Ornamental Iron Worker Cerner at 08/17/2022 5:56 PM CDT documented in this encounter Plan of Treatment Upcoming Encounters Date Type Department Care Team (Late st Contact Info) Description 01/23/2025 11:00 AM EDT Office Visit [facility] Neurology - [address] 1021 [facility] [address] [place] [address] Matilda Arita APRN 1021 [facility] [address] [place] [address] 01/28/2025 9:45 AM EDT Office Visit [facility] Electrophysiology [address] [place] [address] [place] [address] [place] [address] [address] [place], [place] [phone] documented as of this encounter Visit Diagnoses Not on filedocumented in this encounter Care Teams Email Operations Manager Relationship Specialty Start Date End Date Eladio Lomas MD 1210 [facility] [address] [place] [address] Medical Oncologist Hematology and Oncology 07/08/22 Breanna Crow PA-C 3470 [facility] [address] [place] [address] Physician Litigation Services Manager Oncology 07/08/22 documented as of this encounter
--- OUTSIDE RECORDS SUMMARY | 2024-12-26 08:55 | XMS_ITS | Encounter Summary ---
Author Organization [email or web address] ([place], [place], [place], [place]) Address [address] [place] [address] Care Team Providers Care Street Sweeper Name Role Phone Eladio Lomas MD Unavailable Breanna Crow PA-C Unavailable [phone] Encounter Details Date Type Department Care Team (Late st Contact Info) Description 10/14/2021 Transcribed Document [facility] Family Medicine [address] [place] [address] ProviderJailyn MD [address] [place] [address] Social History Tobacco Use Types [...] any clubs o r organizations such as rastafarian groups, unions, fraternal or athletic groups, or [...] Temperature : Warm Skin Description : Dry, [place] FLORA SOUZA RN - 10/15/2021 1:37 EDT ED General-Functional Assess Information Obtained From : Patient Communication Barrier : None Primary Language : Togolese Any Spiritual/Cultural Needs or Requests : No [...] Dejuan Best Motor Response : Obey commands Victor Best Verbal Response : Oriented Victor Eye Opening Response : Spontaneous Dejuan Coma Score : 15 FLORA SOUZA RN - 10/15/2021 1:37 EDT documented in this encounter Plan of Treatment Upcoming Encounters Date Type Department Care Team (Late st Contact Info) Description 01/23/2025 11:00 AM EDT Office Visit [facility] Neurology - [address] [address] Matilda Arita APRN [address] [facility] [address] [place] [address] 01/28/2025 9:45 AM EDT Office Visit [facility] Electrophysiology [address] [place] [id number] Phuong Lewis MD [address] [facility] [address] [place] [address] documented as of this encounter Visit Diagnoses Not on filedocumented in this encounter Care Teams Street Sweeper Relationship Specialty Start Date End Date Eladio Lomas MD [address] [facility] [address] [place] [address] Medical Oncologist Hematology and Oncology 07/08/22 Breanna Crow PACecilia [address] [facility] [address] [place] [address] Physician Lockstitch Collar Setter Oncology 07/08/22 documented as of this encounter
--- NOTE | 2024-12-26 09:09 | PC.NURSE ---
0850-Blood drawn from right AC using butterfly needle to check CBC and CMP, per Dr Lomas.
[2024-12-26 09:10] LABS: Hematocrit 38.4 % (42.0-52.0); Hemoglobin 11.2 g/dL (14.1-18.0); Immature Granulocytes % 0.2 %; Mean Corpuscular HGB Conc 29.2 g/dL (31.8-35.4); Mean Corpuscular Hemoglobin 29.9 pg (27.0-31.2); Mean Corpuscular Volume 102.4 fl (80-94); Nucleated Red Blood Cells % 0 %; Platelet Count 142 K/mm3 (142-424); Red Blood Count 3.75 M/mm3 (4.60-6.20); Red Cell Distribution Width-SD 62.0 fL
[2024-12-26 09:12] LABS: White Blood Count 86.1 K/mm3 (4.8-10.8)
[2024-12-26 09:23] LABS: Albumin Level 4.2 g/dl (3.5-5.0); Chloride 103 mmol/L (98-107); Potassium 5.8 mmoL/L (3.5-5.1); Sodium 137 mmol/L (136-145)
[2024-12-26 09:26] LABS: Alanine Aminotransferase 18 U/L (12-78); Albumin/Globulin Ratio 2.1 (1.1-1.8); Alkaline Phosphatase 67 U/L (38-126); Anion Gap 10.8 mEq/L (5-15); Aspartate Amino Transferase 33 U/L (17-59); Bilirubin,Total 0.4 mg/dl (0.2-1.3); Blood Urea Nitrogen 29 mg/dl (9-20); Carbon Dioxide 29 mmol/L (22.0-30.0); Creatinine,Serum 0.90 mg/dl (0.66-1.25); Estimated Glomerular Filt Rate 82 ml/min (>60); GFR (African American) 99 ML/MIN (>60); Globulin 2.0 g/dL (1.3-3.2); Glucose 62 mg/dl (74-100); Total Protein,Serum 6.2 g/dl (6.3-8.2)
[2024-12-26 09:27] LABS: Calcium 9.1 mg/dl (8.4-10.2)
[2024-12-26 11:54] LABS: Macrocytosis 1+; Total Cells Counted 100
[2024-12-26 11:55] LABS: Hypochromasia 1+
== END 2024-12-26 09:15 | disposition home or self-care (01) ==
LOC: INF 08:46
PROVIDERS: PCP Family Medicine; Visit Provider Internal Medicine Medical Oncology
DX: C91.12 Chronic lymphocytic leukemia of B-cell type in relapse (principal)
CPT/HCPCS: 36415; 80053; 85007; 85025; 85027

== ENCOUNTER 2025-01-02 11:30 | Outpatient (CLI) | payer MEDICARE, SELFPAY ==
--- OUTSIDE RECORDS SUMMARY | 2024-12-11 16:55 | XMS_ITS | Encounter Summary ---
Author Organization [employer] ([place], [place], [place], [place]) Address [address] [place] [address] Care Team Providers Care Osha Inspector Name Role Phone Eladio Lomas MD Unavailable Breanna Crow PA-C Unavailable [phone] Reason for Visit * Auth/Cert (Routine) Specialty Diagnoses / Procedures Referred By Contac t Referred To Contact Diagnoses Weakness WEAKNESS [place] [address] Inter[facility] [address] [place] [phone] Phone: tel: fax: [place] [address] Inter[facility] [address] [place] [phone] Phone: tel: fax: Referral ID Status Reason Start Date Expiration Date Visits Re quested Visits Authorized [id number] 1 1 Encounter Details Date Type Department Care Team (Late st Contact Info) Description 12/11/2024 4:55 PM EDT - 12/14/2024 2:40 PM EDT Hospital Encounter [place] [address] Inter[facility] Care [address] [place] [phone] Pietro Toure MD [address] [facility] [address] [place] [address] Aneudy Fitch PA-C [address] [place] [address] Maria Guadalupe Lopez MD [address] [facility] [place] [address] Discharge Disposition: Home or Self Care Social [...] your living situation today? I have a [facility] place to live 12/11/2024 Think about the [...] Do you speak a language other than Portuguese at [facility]? No 12/11/2024 Do you want help with [...] you used [place] legal drugs? Never 12/11/2024 Mental Health Answer Date Recorded Calculation of above two rows 0 Sex and Gender Information Value Date Recorded [...] currently receiving cancer treatments with Dr. Eladio Lomas and was recently started on Acalabrutinib on November 22, 2024. Pt initially was started on October 29 however due to onset of dizziness patient's medication was held. Pt also had previous history of CLL for whichhe received chemotherapy in 2018, pt reportedly had history of neutropenic fever and pneumonia at that time. Patient states 3 days prior to admission patient had a fever of 103 and was acutely disoriented. Pt's symptoms somewhat resolved after Tylenol administration. However on morning of admissionhe began to have symptoms of confusion and became febrile again. Pt was brought to [facility] ED where patient's CT head read abnormally and pt's chest CT identified likely pneumonia.Due to pt's current history and imaging pt was subsequently transferred to [facility] for further evaluation by MRI. Pt did [...] weakness. Pt was started on Gabapentin 300mg BID but made him sleepy and was continued on [...] Your Medications These medications were sent to [id number] - [place], [place] - [address] [facility] & [address] [place] [address] aspirin 81 MG EC tablet cefdinir 300 [...] Arita APRN Specialty: Neurology, Nurse Practitioner [address] [phone] Next Steps: Schedule an appointment as soon as possible for a visit in 4 week(s) Instructions: Hospital follow up for stroke Primary Care Provider Next Steps: Follow up in 1 week(s) Phuong Lewis MD Specialty: Cardiology, Respiratory Therapy, Electrophysiology, Electrophysiology - Cardiac [address] [facility] [address] [place] [address] Next Steps: Follow up in 6 week(s) Time Spent: 35 min. Electronically signed by Maria Guadalupe Lopez MD, 12/15/24, 3:00 PM EDT documented in this encounter Medications at Time of Discharge acalabrutinib (CALQUENCE) 100 mg tablet Take 1 tablet (100 mg total) by mouth every 12 (twelve) hours Restart based on recommendations per your Oncologist. 12/14/2024 aspirin 81 MG EC tablet Take 1 tablet (81 mg total) by mouth daily for 30 days. 30 tablet 1 12/15/2024 01/15/20 25 ferrous gluconate 324 mg (37.5 mg iron) tab Take 1 tablet (324 mg total) by mouth daily for 30 days. 30 tablet 2 12/14/2024 01/14/20 25 fluticasone propionate (FLONASE) 50 mcg/actuation nasal spray Administer 2 sprays into each nostril daily as needed for rhinitis. gabapentin (NEURONTIN) 300 MG capsule Take 1 capsule (300 mg total) by mouth nightly for 30 days. Max Daily Amount: 300 mg 30 capsule 12/14/2024 01/14/20 25 levocetirizine (XYZAL) 5 MG tablet Take 1 tablet (5 mg total) by mouth nightly. multivitamin capsule Take 1 capsule by mouth daily. predniSONE (DELTASONE) 10 MG tablet Take 1 tablet (10 mg total) by mouth daily with breakfast. valACYclovir (VALTREX) 1000 MG tablet Take 1 tablet (1,000 mg total) by mouth daily. cefdinir (OMNICEF) 300 mg capsule Take 1 capsule (300 mg total) by mouth 2 (two) times daily for 4 days. 8 capsule 12/15/2024 12/20/19 25 doxycycline (VIBRAMYCIN) 100 MG capsule Take 1 capsule (100 mg total) by mouth every 12 (twelve) hours for 5 days Next dose is this evening. 10 capsule 12/14/2024 12/20/19 25 Saccharomyces boulardii (FLORASTOR) 250 mg capsule Take 1 capsule (250 mg total) by mouth 2 (two) times daily for 5 days Continue probiotic while on the antibiotics. 10 capsule 12/15/2024 12/21/19 25 documented as of this encounter Progress Notes * Phuong Lewis MD - 12/14/2024 2:40 PM EDT Trial Mgr: Chief Complaint: No chief complaint on file. [...] the Teach-Back, Verbalizes Understanding. * María Elena Bunn PT - 12/14/2024 11:47 AM EDT Images [...] date. Wheelchair Mobility Not assessed, patient ambulatory. AM-[facility] Basic Mobility Inpatient Short Form How much [...] equipment discharge needs at this time. Goals Raiiwj-gl-sen: By the target date, patient will perform bolwfg-yf-wnv with modified independence, utilizing no assistive device, to improve independence with bed mobility. Ifc-ab-unheo: By the target date, patient will perform [...] AM EDT PT Evaluation Completed * Nabeel Horn OTR/Mikal - 12/14/2024 11:15 AM EDT Images from the original note were not included. Inpatient Occupational Therapy Treatment Note Patient Name: Corbin Hu Date of : 1950 Date of Treatment: 12/14/24 Start Time: 1115 Stop Time: 1138 Session Duration: 23 minutes This patient is a 74 y.o. male admitted on 12/11/2024 with Weakness [R53.1]. Past Medical History: Diagnosis Date Anxiety GERD (gastroesophageal reflux disease) Lymphocytic leukemia (HCC) Unspecified skin changes Past Surgical History: Procedure Laterality Date BACK SURGERY 01/01/2022 Lumbar laminectomy, right side crossing over to the left side,decompression cauda equina and neural ellements foramenotmy , neural lysis, facetectomy, L4-5 General [...] DC Readmit Risk: 14% BMAT at DC: 3/4 Patient declined the need for services from [...] Matilda Arita APRN Specialty: Neurology, Nurse Practitioner [address] [place] [phone] Next Steps: Schedule an appointment as soon as possible for a visit in 4 week(s) Instructions: Hospital follow up for stroke Transporation Provider: (P) Family/Spouse Transporation Contact Name: Transportation Provider Phone: Date of service transformer repair supervisor: (P) 12/14/24 Time of service transformer repair supervisor: 12/14/24 1052 Final Discharge Plan PCP referral provided? No Community Referral Discussed with Patient? No Patient appealing discharge? No Does the patient have the ability to fill and receive their discharge medications? Yes Patient returning to prior living situation? Yes Support Systems Spouse/significant other;Family members Discharge Disposition Home Transportation Provider Family/Spouse Date of service transformer repair supervisor 12/14/24 FELIZ Benitez * Alyson Ferguson MD [...] 1950 Age: 74 year(s) Corporate ID Number: [id number] Gender Male Aircraft Machinist: Jillian Souza Height: 65 inches [facility] Referring Physician: MARIA GUADALUPE LOPEZ MD Weight: [...] 1.15 m/s E/A ratio: 1.42 m/s Volume syloghktt506.52 LV length: 8.99 cm ml Volume znwyztzn41.92 ml LVOT diameter: 2.03 cm Normal sized [...] Valve TR velocity: 3 m/s TR gradient: 35.03560 mmHg Estimated RAP: 8 mmHg RVSP: 43.96 [...] SANDIE SMITH Age 74 [place] Patient Number [id number] Gender Male Race Ethnicity Corporate ID [id number] Height 65 Date of 1950 Weight 139 Accession Number [id number] BSA 1.69 m^2 Room Number 405 BMI 23.13 kg/m^2 Referring MARIA GUADALPUE LOPEZ MD Interpreting BEBETO WALTER MD Physician Physician Aircraft Machinist Rosy Guido RVT Procedure Type of Study: [...] Demographics Patient Name SANDIE SMITH Age 74 [place] Patient Number [id number] Gender Male Race Ethnicity Corporate ID [id number] Height 65 Date of 1950 Weight 139 Accession Number [id number] BSA 1.69 m^2 Room Number 405 BMI 23.13 kg/m^2 Referring Alyson Ferguson MD Interpreting BEBETO WALTER MD Physician Physician Aircraft Machinist Rosy Guido [facility] Procedure Type of Study: Veins: Venous Duplex, [...] Acute Services Home/self care Type of Home/Self Shelter with family care Does the patient have the ability to fill and receive their discharge medications? Yes Discharge Plan Discussed The discharge plan was discussed with patient. Discharge Plan Outcome Patient/family territory representative agrees with the discharge plan Discharge [...] (P) Home Mandated Reporting: (P) Not applicable PT/OT/GUNSTOCK REPAIRER Recommendations PT Recommendations: OT Recommendations: GUNSTOCK REPAIRER Recommendations: Cm spoke to patient and spouse at bedside. Has a PCP- Dr Arsalan Isabel. Can afford meds. Has been independent with ADL's prior to a week ago. Now has BLE weakness. Has transport home. Declines need for SNF/HH. Plans to return home. Choice letter and list of GRAINING MACHINE OPERATOR's given just in case changes mind. Care Coordination has seen this patient and completed the need for which we were consulted. We will sign off. Please enter a new consult if any further needs arise. Ramona Rhodes RN * Nabeel Horn, OTR/L - 12/13/2024 2:47 PM EDT Images from [...] resistance at shoulder, elbow, and wrist. Coordination/Sensation Obxvhm-jl-uzrg: LUE (4) Normal performance, RUE (3) Minimal [...] guard assist Toileting:Contact guard assist Outcome Measures [facility] Daily Living Functional Assessment How much [...] (Minimal/Contact guard/Supervision/Setup) 4=None (Modified independent/Independent) The patient's [facility] raw score is 18. The patient currently has 46.65% functional impairment. Clinicians are most likely to recommend inpatient/SNF/wheat buyer care for patients with scores between 6-17, [...] prior level of function. The patient's current [facility] score of 18 would indicate that the [...] discharge summary. Electronically signed by Nabeel Horn OTR/L - 12/13/2024 - 3:33 PM EDT OT [...] for therapist's time. Electronically signed by Qian Rasmussen, PT - 12/13/2024 - 3:30 PM EDT * Maria Guadalupe Lopez MD - 12/13/2024 7:46 AM EDT Subjective [...] was treated with Ritaxin and Bendamustine in 2017 -He received 3 weeks of Calquence starting 10/2024 but had side effects and was stopped H/O DVT -Was on Eliquis [id number] DVT: Therapeutic Lovenox Discharge Planning: Barriers to [...] Result Value Ref Range MRSA by PCR [facility] MRSA Not Detected by PCR MRSA [...] Lower extremity weakness History of Present Illness Crobin Hu is a 74 y.o. male with a history of CLL presents to [facility] in [place], [place] for further evaluation and management of [...] became febrile again. Patient was brought to [facility] emergency department where patient's CT head read abnormally and patient's chest CT identified likely pneumonia. Due to patient's current history and imaging patient was subsequently transferred to [facility] for further evaluation by MRI. Patient is [...] Allergies Allergen Reactions Iodinated Contrast Media Documented DIRECTOR OF COLLECTIONS AND ARCHIVES Medications: Medications Prior to Admission Medication Sig [...] Intake/Output: Intake/Output Summary (Last 24 hours) at 12/11/2024 1836 Last data filed at 12/11/2024 1700 Gross [...] Aneudy Fitch PA-C 1,000 mg at 12/11/24 1830 azithromycin (ZITHROMAX) 500 mg in sodium chloride [...] Aneudy Fitch PA-C 40 mg at 12/11/24 1831 potassium chloride (KLOR-CON) ER tablet 40 mEq [...] PA-C Consult ordered by: Matt Vargas MD [facility] NEUROSURGERY CONSULT NOTE Primary Care Provider: No [...] or leg pain when I saw him thismorfabby, but did describe to Dr. Ferguson left [...] Maria Guadalupe Lopez MD Reason for consult: [facility]rophys[facility] -Consult Basic Information: Name Corbin Hu, 1950, 74 y.o., male PCP: No primary [...] of motion, Normal strength. Integumentary: Warm, Dry, [place]. Neurologic: Alert, Oriented. Psychiatric: Cooperative, Appropriate mood & affect. Psychiatric: Inpatient Medications Current Facility-Administered Medications Medication Dose Route Frequency Provider Last Rate Last Admin acetaminophen (TYLENOL) tablet 1,000 mg 1,000 mg oral Q6H PRN Aneudy Fitch, PA-C 1,000 mg at 12/12/24 1549 cefTRIAXone (ROCEPHIN) 1 g in sodium chloride 0.9 % (NS) 50 mL EFRAIN IVPB 1 g intravenous Q24H [facility] Aneudy Fitch PA-C IVPB Stopped at 12/12/24 [...] Aneudy Fitch PA-C 40 mg at 12/13/24 0847 potassium chloride (KLOR-CON) ER tablet 40 mEq [...] mg 250 mg oral Daily Maria Guadalupe oLpez MD 250 mg at 12/13/24 0847 sodium chloride flush 10 mL 10 mL [...] been a patient of Dr. Lomas in [place]. He was diagnosed with CLL in approximately [...] non-skid footwear provided. 12/14/2024 1411 by Mora E Nilda, RN Outcome: Adequate for Discharge 12/14/20241312 by Mora Munguia RN Outcome: Progressing Problem: Pain Goal: Patient's [...] physical activity, distraction, and deep breathing exercises. 12/14/2024 1411 by Mora Munguia RN Outcome: Adequate for Discharge 12/14/2024 1313 by Mora Munguia RN Outcome: Progressing Goal: Verbalizes personal strengths Description: Spend time with the patient using empathy and active listening skills. 12/14/2024 1411 by Mora Munguia RN Outcome: [...] Outcome: Adequate for Discharge 12/14/20241312 by Mora Munugia RN Outcome: Progressing Problem: Infection Goal: Signs [...] and interventions as ordered. 12/14/20241410 by Mora Mungiua RN Outcome: Adequate for Discharge 12/14/20241312 by [...] Description 01/28/2025 9:45 AM EDT Office Visit [facility] Electrophysiology [address] [place] [address] [place] [address] [place] [address] [address] [place] [id number] documented as of this encounter Procedures Procedure [...] (ABNORMAL) Manual Differential (12/14/2024 5:35 AM EDT) Total Counted 100 12/14/2024 8:02 AM EDT [facility] % Neutros (manual) 13(L) 50 - 65 % 12/14/2024 8:02 AM EDT [facility] % Lymphs (manual) 86(H) 24 - 44 % 025 8:02 AM EDT [facility] % Monos (manual) 1(L) 4 - 5 % 12/15/19 25 8:02 AM EDT [facility] RBC Morphology abnormal(A) Normal 8:02 AM EDT [facility] Platelet Estimate Adequate Adequate 025 8:02 AM EDT [facility] Anisocytosis 1+ 12/14/2024 8:02 AM EDT [facility] Hypochromia 1+ 12/14/2024 8:02 AM EDT [facility] Polychromasia 1+ 12/14/2024 8:02 AM EDT [facility] Smudge Cells Present 12/14/2024 8:02 AM EDT [facility] Macrocytes 1+ 12/14/2024 8:02 AM EDT [facility] ANC# 2.89 K/ L 12/14/2024 8:02 AM EDT [facility] Blood Venipuncture / Unknown 12/14/2024 5:35 AM EDT 12/14/2024 6:05 AM EDT us Matt Vargas MD LAB BLOOD ORDERABLES Final Res ult [facility] [address] [phone] * (ABNORMAL) CBC with automated diff (12/14/2024 5:35 AM EDT) WBC 22.2(H) 4.2 - 9.1 K/ L 12/14/2024 6:17 AM EDT [facility] RBC 2.63(L) 4.63 - 6.08 M/ L 12/14/2024 6:17 AM EDT [facility] Hemoglobin 8.2(L) 13.7 - 17.5 GM/DL 12/14/2024 6:17 AM EDT [facility] Hematocrit 25.9(L) 40.1 - 51.0 % 12/14/2024 6:17 AM [facility] MCV 99(H) 79 - 92 fL 12/14/2024 6:17 AM [facility] MCH 31.2 25.7 - 32.2 pg 12/14/2024 6:17 AM [facility] MCHC 31.7(L) 32.3 - 36.5 GM/DL 12/14/2024 6:17 AM T [facility] RDW 15.0(H) 11.6 - 14.4 % 12/14/2024 6:17 AM [facility] Platelets 177 140 - 375 K/CU MM 12/14/2024 6:17 AM [facility] MPV 9.9 9.4 - 12.4 fL 12/14/2024 6:17 AM [facility] NRBC Absolute <0.01 0 - 0.012 K/ul 12/14/2024 6:17 AM T [facility] Blood Venipuncture / Unknown 12/14/2024 5:35 AM EDT 12/14/2024 6:05 AM EDT Narrative [facility] - 12/14/2024 6:17 AM EDT When [...] MD LAB BLOOD ORDERABLES Final Res ult [facility] [address] [phone] * (ABNORMAL) Basic Metabolic Panel (12/14/2024 5:35 AM EDT) Sodium 142 136 - 145 meq/L 12/14/2024 6:48 AM EDT [facility] Potassium 3.9 3.4 - 5.1 meq/L 12/14/2024 6:48 AM EDT [facility] CO2 25 22 - 29 meq/L 12/14/2024 6:48 AM EDT [facility] Chloride 108 98 - 112 meq/L 12/14/2024 6:48 AM EDT [facility] Glucose 120(H) 82 - 115 mg/dL 12/14/2024 6:48 AM EDT [facility] BUN 14.4 8.4 - 25.7 mg/dL 12/14/2024 6:48 AM EDT [facility] Creatinine 0.68(L) 0.72 - 1.25 mg/dL 12/14/2024 6:48 AM EDT [facility] BUN/Creatinine 21(H) 8 - 20 12/14/2024 6:48 AM EDT [facility] Calcium 7.7(L) 8.4 - 10.2 mg/dL 12/14/2024 6:48 AM EDT [facility] Anion Gap 13(H) 4 - 12 12/14/2024 6:48 AM EDT [facility] eGFR (mL/min/1.73m2) 96 >=60 mL/min/1.7 3m2 12/14/2024 6:48 AM EDT [facility] Osmolality Calc 284.9 mOsm/kg 6:48 AM EDT [facility] Blood Venipuncture / Unknown 12/14/2024 5:35 AM EDT 12/14/2024 6:18 AM EDT us Maria Guadalupe Lopez MD LAB BLOOD ORDERABLES Final Re sult [facility] [address] [phone] * Sedimentation rate (12/13/2024 6:09 PM EDT) Sed Rate 10 0 - 20 mm/HR 12/13/2024 6:24 PM EDT [facility] Blood Venipuncture / Unknown 12/13/2024 6:09 PM EDT 12/13/2024 6:20 PM EDT us Jaron Amin MD LAB BLOOD ORDERABLES Final Resul t Performing Organization Address [facility] Co de Phone Number [facility] [address] [phone] * ECHO COMPLETE (DOPPLER / COLOR) WO CONTRAST (12/13/2024 1:08 PM EDT) Anatomical Region Laterality Modality Heart Vascular Ultraso und 12/13/2024 12:1 1 PM EDT Narrative 12/13/2024 11:34 PM EDT TRANSTHORACIC ECHOCARDIOGRAPHY REPORT Demographics Patient Name: SANDIE KOROMA : 1950 Age: 74 year(s) Corporate ID Number: [id number] Gender Male Aircraft Machinist: Jillian Souza Height: 65 inches [facility] Referring Physician: MARIA GUADALUPE LOPEZ MD Weight: 139 pounds Interpreting BEBETO WALTER MD BMI: 23.13 kg/m^2 Physician: Date of Service: 12/13/2024 Blood Pressure: 118/57 mmHg Room Number: 405 Type of Study: TTE procedure: ECHO COMPLETE (DOPPLER / COLOR) W OR WO CONTRAST. Patient Status: Routine IP [facility] Quality: Adequate visualization History/Tech Notes: Indication: other [...] 1.15 m/s E/A ratio: 1.42 m/s Volume iupbrjdbu897.52 LV length: 8.99 cm ml Volume ieecswud67.92 ml LVOT diameter: 2.03 cm Normal sized [...] Valve TR velocity: 3 m/s TR gradient: 35.62155 mmHg Estimated RAP: 8 mmHg RVSP: 43.96 [...] 1950 Age: 74 year(s) Corporate ID Number: [id number] Gender Male Aircraft Machinist: Jillian Souza Height: 65 inches [facility] Referring Physician: MARIA GUADALUPE LOPEZ MD Weight: 139 pounds Interpreting BEBETO WALTER MD BMI: 23.13 kg/m^2 Physician: Date of Service: 12/13/2024 Blood Pressure: 118/57 mmHg Room Number: 405 Type of Study: TTE procedure: ECHO COMPLETE (DOPPLER / COLOR) W OR WO CONTRAST. Patient Status: Routine IP Study Location: [facility] Quality: Adequate visualization History/Tech Notes: Indication: other [...] 1.15 m/s E/A ratio: 1.42 m/s Volume hxwylwylt297.52 LV length: 8.99 cm ml Volume rmzrzjij35.92 ml LVOT diameter: 2.03 cm Normal sized [...] Valve TR velocity: 3 m/s TR gradient: 35.27354 mmHg Estimated RAP: 8 mmHg RVSP: 43.96 [...] Demographics Patient Name SANDIE SMITH Age 74 [place] Patient Number [id number] Gender Male Race Ethnicity Corporate ID [id number] Height 65 Date of 1950 Weight 139 Accession Number [id number] BSA 1.69 m^2 Room Number 405 BMI 23.13 kg/m^2 Referring Alyson Ferguson MD Interpreting BEBETO WALTER MD Physician Physician Aircraft Machinist Rosy Guido, T Procedure Type of Study: Veins: Venous [...] Demographics Patient Name SANDIE SMITH Age 74 [place] Patient Number [id number] Gender Male Race Ethnicity Corporate ID [id number] Height 65 Date of 1950 Weight 139 Accession Number [id number] BSA 1.69 m^2 Room Number 405 BMI 23.13kg/m^2 Referring Alyson Ferguson MD Interpreting BEBETO PERALTA Physician Physician Aircraft Machinist Rosy Guido RVT Procedure Type of Study: [...] Demographics Patient Name SANDIE SMITH Age 74 [place] Patient Number [id number] Gender Male Race Ethnicity Corporate ID [id number] Height 65 Date of 1950 Weight 139 Accession Number [id number] BSA 1.69 m^2 Room Number 405 BMI 23.13 kg/m^2 Referring MARIA GUADALUPE LOPEZ MD Interpreting BEBETO WALTER MD Physician Physician Aircraft Machinist Rosy Guido, T Procedure Type of Study: [...] the ECA and proximal ICA. Signature Procedure Bebeto Becker, MD - 12/14/2024 Vascular Carotid Procedure Demographics Patient Name SANDIE SMITH Age 74 [place] Patient Number [id number] Gender Male Race Ethnicity Corporate ID [id number] Height 65 Date of 1950 Weight 139 Accession Number [id number] BSA 1.69 m^2 Room Number 405 BMI 23.13kg/m^2 Referring MARIA GUADALUPE LOPEZ MD Interpreting BEBETO PERALTA Physician Physician Aircraft Machinist Rosy Guido RVT Procedure Type of Study: [...] plaque in the ECA and proximalICA. Signature Maria Guadalupe Lopez MD CV VASCULAR ORDERABLES Final Result * (ABNORMAL) C-Reactive Protein (12/13/2024 5:12 AM EDT) CRP 92.6(H) 0.0 - 5.0 mg/L 12/13/2024 6:10 PM EDT [facility] Blood Venipuncture / Unknown 12/13/2024 5:12 AM EDT 12/13/2024 5:24 AM EDT us Jaron Amin MD LAB BLOOD ORDERABLES Final Resul t Performing Organization Address City/[facility]/ZIP Co de Phone Number [facility] [address] [phone] * Magnesium (12/13/2024 5:12 AM EDT) Magnesium 2.2 1.6 - 2.6 mg/dL 12/13/2024 3:16 PM EDT [facility] Blood Venipuncture / Unknown 12/13/2024 5:12 AM EDT 12/13/2024 5:24 AM EDT us Phuong Lewis MD LAB BLOOD ORDERABLES Final Resu lt Performing Organization Address City/[facility]/ZIP Co de Phone Number [facility] [address] [phone] * (ABNORMAL) Lipid panel (12/13/2024 5:12 AM EDT) Triglycerides 108 <=149 mg/dL 12/13/2024 8:20 AM EDT [facility] Comment: Normal: < 150 mg/dL Borderline High: 150 to 199 mg/dL High: 200 to 499 mg/dL Very High: >/= 500 mg/dL Cholesterol 81(L) 100 - 199 mg/dL 12/13/2024 8:20 AM EDT [facility] Comment: Child: Desirable: < 170 mg/dL Borderline: 170 to 199 mg/dL High: >/= 200 mg/dL Adult: Desirable: < 200 mg/dL Borderline: 200 to 239 mg/dL High: >/= 240 mg/dL HDL Cholesterol 12 See Comment mg/dL 12/13/2024 8:20 AM EDT [facility] Comment: Major risk factor for heart disease: < 40 mg/dL Negative risk factor for heart disease: >/= 60 mg/dL LDL Cholesterol, Calculated 47 0 - 100 mg/dL 12/13/2024 8:20 AM EDT [facility] Comment: Unable to calculate Optimal: < 100 mg/dL Near or above optimal: 100 to 129 mg/dL Borderline high: 130 to 159 mg/dL High: 160 to 189 mg/dL Very high: >/= 190 mg/dL Based on AHA/NCEP Guidelines LDl/HDL Ratio 4 0 - 4 12/13/2024 8:20 AM EDT [facility] Comment:Unable to calculate. Cholesterol/HDL ratio 6.8(H) 0.0 - 5.0 mg/dL 12/13/2024 8:20 AM EDT [facility] VLDL Cholesterol 21.6 5 - 40 mg/dL 12/13/2024 8:20 AM EDT [facility] Comment:Unable to calculate Blood Venipuncture / Unknown 12/13/2024 5:12 AM EDT 12/13/2024 5:24 AM EDT us Maria Guadalupe Lopez MD LAB BLOOD ORDERABLES Final Re sult [facility] [address] [phone] * (ABNORMAL) Manual Differential (12/13/2024 5:12 AM EDT) Total Counted 100 12/13/2024 6:24 AM EDT [facility] % Neutros (manual) 26(L) 50 - 65 % 12/13/2024 6:24 AM EDT [facility] % Lymphs (manual) 72(H) 24 - 44 % 12/13/2024 6:24 AM EDT [facility] % Monos (manual) 2(L) 4 - 5 % 12/14/19 6:24 AM EDT [facility] Atypical Lymphs Present 6:24 AM EDT [facility] RBC Morphology abnormal(A) Normal 6:24 AM EDT [facility] Platelet Estimate Adequate Adequate 12/13/2024 6:24 AM EDT [facility] Anisocytosis 1+ 12/13/2024 6:24 AM EDT [facility] Poikilocytes 1+ 12/13/2024 6:24 AM EDT [facility] Hypochromia 1+ 12/13/2024 6:24 AM EDT [facility] Elliptocytes 1+ 12/13/2024 6:24 AM EDT [facility] Smudge Cells Present 12/13/2024 6:24 AM EDT [facility] ANC# 4.84 K/ L 12/13/2024 6:24 AM EDT [facility] Blood Venipuncture / Unknown 12/13/2024 5:12 AM EDT 12/13/2024 5:25 AM EDT us Matt Vargas MD LAB BLOOD ORDERABLES Final Res ult Performing Organization Address City/State/[facility] Co de Phone Number [facility] [address] [phone] * (ABNORMAL) CBC with automated diff (12/13/2024 5:12 AM EDT) WBC 18.6(H) 4.2 - 9.1 K/ L 12/13/2024 6:24 AM EDT [facility] RBC 2.57(L) 4.63 - 6.08 M/ L 12/13/2024 6:24 AM EDT [facility] Hemoglobin 8.1(L) 13.7 - 17.5 GM/DL 12/13/2024 6:24 AM EDT [facility] Hematocrit 24.9(L) 40.1 - 51.0 % 12/13/2024 6:24 AM EDT [facility] MCV 97(H) 79 - 92 fL 12/13/2024 6:24 AM EDT [facility] MCH 31.5 25.7 - 32.2 pg 12/13/2024 6:24 AM EDT [facility] MCHC 32.5 32.3 - 36.5 GM/DL 12/13/2024 6:24 AM EDT [facility] RDW 14.7(H) 11.6 - 14.4 % 12/13/2024 6:24 AM EDT [facility] Platelets 167 140 - 375 K/CU MM 12/13/2024 6:24 AM EDT [facility] MPV 9.8 9.4 - 12.4 fL 12/13/2024 6:24 AM EDT [facility] NRBC Absolute <0.01 0 - 0.012 K/ul 12/13/2024 6:24 AM EDT [facility] Blood Venipuncture / Unknown 12/13/2024 5:12 AM EDT 12/13/2024 5:25 AM EDT Narrative [facility] - 12/13/2024 6:24 AM EDT When [...] MD LAB BLOOD ORDERABLES Final Res ult [facility] [address] [phone] * Vitamin D, 25-Hydroxy (12/13/2024 5:12 AM EDT) Vitamin D 25-Hydroxy 31.33 30 - 80 ng/mL 12/13/2024 6:13 AM EDT [facility] Blood Venipuncture / Unknown 12/13/2024 5:12 AM EDT 12/13/2024 5:24 AM EDT us Maria Guadalupe Lopez MD LAB BLOOD ORDERABLES Final Re sult [facility] [address] [phone] * TSH (12/13/2024 5:12 AM EDT) TSH 2.613 0.350 - 4.940 uIU/mL 12/13/2024 6:07 AM EDT [facility] Blood Venipuncture / Unknown 12/13/2024 5:12 AM EDT 12/13/2024 5:24 AM EDT us Maria Guadalupe Lopez MD LAB BLOOD ORDERABLES Final Re sult [facility] [address] [phone] * (ABNORMAL) Basic Metabolic Panel (12/13/2024 5:12 AM EDT) Sodium 136 136 - 145 meq/L 12/13/2024 6:07 AM EDT [facility] Potassium 4.0 3.4 - 5.1 meq/L 12/13/2024 6:07 AM EDT [facility] CO2 23 22 - 29 meq/L 12/13/2024 6:07 AM EDT [facility] Chloride 107 98 - 112 meq/L 12/13/2024 6:07 AM EDT [facility] Glucose 118(H) 82 - 115 mg/dL 12/13/2024 6:07 AM EDT [facility] BUN 17.4 8.4 - 25.7 mg/dL 12/13/2024 6:07 AM EDT [facility] Creatinine 0.75 0.72 - 1.25 mg/dL 12/13/2024 6:07 AM EDT [facility] BUN/Creatinine 23(H) 8 - 20 12/13/2024 6:07 AM EDT [facility] Calcium 7.6(L) 8.4 - 10.2 mg/dL 12/13/2024 6:07 AM EDT [facility] Anion Gap 10 4 - 12 12/13/2024 6:07 AM EDT [facility] eGFR (mL/min/1.73m2) 94 >=60 mL/min/1.7 3m2 12/13/2024 6:07 AM EDT [facility] Osmolality Calc 274.7 mOsm/kg 6:07 AM EDT [facility] Blood Venipuncture / Unknown 12/13/2024 5:12 AM EDT 12/13/2024 5:24 AM EDT us Maria Guadalupe Lopez MD LAB BLOOD ORDERABLES Final Re sult [facility] [address] [phone] * MR Brain Without IV Contrast (12/12/2024 [...] Haider Bond MD us Aneudy Fitch PA-C IMKeo MRI ORDERABLES Final Resul t * MR [...] IM MRI ORDERABLES Final Resu lt * Legionella antigen, urine (12/12/2024 11:48 AM EDT) Legionella Urine Antigen Presumptive negative for L. pneumophila serogroup 1 antigen in urine- see comment Presumptive negative for L. pneumophila serogroup 1 antigen in urine- see comment 12/12/2024 12:08 PM EDT [facility] Urine 12/12/2024 11:4 8 AM EDT 12/12/2024 11:48 AM EDT Narrative [facility] - 12/12/2024 12:08 PM EDT Presumptive [...] Guadalupe Lopez MD URINE ORDERABLES Final Result [facility] [address] [phone] * Strep pneumoniae urine antigen (12/12/2024 11:48 AM EDT) Strep pneumoniae Antigen Presumptive negative for pneumococcal pneumonia - see comment Presumptive negative for pneumococcal pneumonia- see comment 12/12/2024 12:09 PM EDT [facility] Urine URINE / Unknown 12/12/2024 1 1:48 AM EDT 12/12/2024 11:48 AM EDT Narrative [facility] - 12/12/2024 12:09 PM EDT A presumptive negative result suggests no current or recent pneumococcal infection. Infection due to S. pneumoniae cannot be ruled out since the antigen present in the specimen may be below the detection limit of the test. us Maria Guadalupe Lopez MD MICROBIOLOGY - GENERAL ORDERA BLES Final Result [facility] [address] [phone] * Respiratory Panel (12/12/2024 10:27 AM EDT) Pathologist [facility] ADENOVIRUS Not detected Not detected 12/12/2024 11:25 AM EDT [facility] CORONAVIRUS 229E Not detected Not detected 12/12/2024 11:25 AM EDT [facility] CORONAVIRUS HKU1 Not detected Not detected 12/12/2024 11:25 AM EDT [facility] CORONAVIRUS NL63 Not detected Not detected 12/12/2024 11:25 AM EDT [facility] CORONAVIRUS OC43 Not detected Not detected 12/12/2024 11:25 AM EDT [facility] SARS-COV2/RT-PCR Not Detected Not Detected 12/12/2024 11:25 AM EDT [facility] HUMAN METAPNEUMOVIRUS Not detected Not detected 12/12/2024 11:25 AM EDT [facility] HUMAN RHINOVIRUS/ENTEROV IRUS Not detected Not detected 12/12/2024 11:25 AM EDT [facility] INFLUENZA A Not detected Not detected 12/12/2024 11:25 AM EDT [facility] INFLUENZA B Not detected Not detected 12/12/2024 11:25 AM EDT [facility] PARAINFLUENZA VIRUS 1 Not detected Not detected 12/12/2024 11:25 AM EDT [facility] PARAINFLUENZA VIRUS 2 Not detected Not detected 12/12/2024 11:25 AM EDT [facility] PARAINFLUENZA VIRUS 3 Not detected Not detected 12/12/2024 11:25 AM EDT [facility] PARAINFLUENZA VIRUS 4 Not detected Not detected 12/12/2024 11:25 AM EDT [facility] RESPIRATORY SYNCYTIAL VIRUS Not detected Not detected 12/12/2024 11:25 AM EDT [facility] BORDETELLA PARAPERTUSSIS Not detected Not detected 12/12/2024 11:25 AM EDT [facility] BORDETELLA PERTUSSIS Not detected Not detected 12/12/2024 11:25 AM EDT [facility] CHLAMYDIA PNEUMONIAE Not detected Not detected 12/12/2024 11:25 AM EDT [facility] MYCOPLASMA PNEUMONIAE Not detected Not detected 12/12/2024 11:25 AM EDT [facility] Nasopharyngeal NASOPHARYNGEAL SWAB / Unknown 12/12/2024 10:27 AM EDT 12/12/2024 10:28 AM EDT [facility] - 12/12/2024 11:25 AM EDT Testing was performed with RT-PCR methodology using the [employer] Respiratory Panel 2.1 which has FDA De [...] decisions. This sample was tested at the [facility] using the [employer] FilmArray Respiratory Panel. It is FDA cleared and has been verified and approved by the [facility] for clinical use on nasopharyngeal swab specimens. The performance of the FilmArray RP has not been established in individuals who received influenza vaccine. Recent administration of a nasal influenza vaccine may cause false positive results for Influenza A and/or Influenza B. us Maria Guadalupe Lopez MD MICROBIOLOGY - GENERAL ORDERA BLES Final Result Performing Organization Address City/[facility]/ZIP Co de Phone Number [facility] [address] [phone] * MRSA Screen (12/12/2024 10:27 AM EDT) [facility] MRSA by PCR [facility] MRSA Not Detected by PCR MRSA Not Detected by PCR DEVICE ID9 12/12/2024 11:45 AM EDT [facility] Nasal BOTH ANTERIOR NARES / Unknown 12/12/2024 10:27 AM EDT 12/12/2024 10:28 AM EDT Maria Guadalupe Lopez MD MICROBIOLOGY - GENERAL ORDERA BLES Final Result Performing Organization Address [facility] Co de Phone Number [facility] [address] [phone] * XR chest AP portable (12/12/2024 9:10 [...] the right lung base, may represent pneumonia. Result Juliano Lopez MD IMG DIAGNOSTIC IMAGING ORDERA BLES Final Result * Vitamin B12 (12/12/2024 3:51 AM EDT) Vitamin B12 439 213 - 816 pg/mL 12/12/2024 10:35 AM EDT [facility] Blood Venipuncture / Unknown 12/12/2024 3:51 AM EDT 12/12/2024 4:38 AM EDT us Maria Guadalupe Lopez MD LAB BLOOD ORDERABLES Final Re sult Performing Organization Address [facility] Phone Number [facility] [address] [phone] * (ABNORMAL) Ferritin (12/12/2024 3:51 AM EDT) Ferritin 474.71(H) 21.81 - 274.66 ng/mL 12/12/2024 10:35 AM EDT [facility] Blood Venipuncture / Unknown 12/12/2024 3:51 AM EDT 12/12/2024 4:38 AM EDT us Maria Guadalupe Lopez MD LAB BLOOD ORDERABLES Final Re sult Performing Organization Address [facility] Co de Phone Number [facility] [address] [phone] * (ABNORMAL) Iron and TIBC (12/12/2024 3:51 AM EDT) Iron 11(L) 65 - 175 ug/dL 12/12/2024 10:35 AM EDT [facility] TIBC 183(L) 250 - 435 ug/dL 12/12/2024 10:35 AM EDT [facility] % Saturation 6 % 12/12/2024 10:35 AM EDT [facility] UIBC 172 12/12/2024 10:35 AM EDT [facility] Blood Venipuncture / Unknown 12/12/2024 3:51 AM EDT 12/12/2024 4:38 AM EDT us Maria Guadalupe Lopez MD LAB BLOOD ORDERABLES Final Re sult [facility] [address] [phone] * (ABNORMAL) Basic Metabolic Panel (12/12/2024 3:51 AM EDT) Sodium 140 136 - 145 meq/L 12/12/2024 5:15 AM EDT [facility] Potassium 3.9 3.4 - 5.1 meq/L 12/12/2024 5:15 AM EDT [facility] CO2 24 22 - 29 meq/L 12/12/2024 5:15 AM EDT [facility] Chloride 107 98 - 112 meq/L 12/12/2024 5:15 AM EDT [facility] Glucose 105 82 - 115 mg/dL 12/12/2024 5:15 AM EDT [facility] BUN 18.6 8.4 - 25.7 mg/dL 12/12/2024 5:15 AM EDT [facility] Creatinine 1.02 0.72 - 1.25 mg/dL 12/12/2024 5:15 AM EDT [facility] BUN/Creatinine 18 8 - 20 12/12/2024 5:15 AM EDT [facility] Calcium 7.8(L) 8.4 - 10.2 mg/dL 12/12/2024 5:15 AM EDT [facility] Anion Gap 13(H) 4 - 12 12/12/2024 5:15 AM EDT [facility] eGFR (mL/min/1.73m2) 76 >=60 mL/min/1.7 3m2 12/12/2024 5:15 AM EDT [facility] Osmolality Calc 281.9 mOsm/kg 5:15 AM EDT [facility] Blood Venipuncture / Unknown 12/12/2024 3:51 AM EDT 12/12/2024 4:38 AM EDT us Aneudy Fitch PA-C LAB BLOOD ORDERABLES Final Res ult [facility] [address] [phone] * (ABNORMAL) CBC - Hemogram (SJ-BKR) (12/12/2024 3:51 AM EDT) WBC 16.1(H) 4.2 - 9.1 K/ L 12/12/2024 4:46 AM EDT [facility] RBC 2.60(L) 4.63 - 6.08 M/ L 12/12/2024 4:46 AM EDT [facility] Hemoglobin 8.2(L) 13.7 - 17.5 GM/DL 12/12/2024 4:46 AM EDT [facility] Hematocrit 25.8(L) 40.1 - 51.0 % 12/12/2024 4:46 AM EDT [facility] MCV 99(H) 79 - 92 fL 12/12/2024 4:46 AM EDT [facility] MCH 31.5 25.7 - 32.2 pg 12/12/2024 4:46 AM EDT [facility] MCHC 31.8(L) 32.3 - 36.5 GM/DL 12/12/2024 4:46 AM EDT [facility] RDW 14.8(H) 11.6 - 14.4 % 12/12/2024 4:46 AM EDT [facility] Platelets 168 140 - 375 K/CU MM 12/12/2024 4:46 AM EDT [facility] MPV 9.7 9.4 - 12.4 fL 12/12/2024 4:46 AM EDT [facility] Blood Venipuncture / Unknown 12/12/2024 3:51 AM EDT 12/12/2024 4:35 AM EDT us Aneudy Fitch PA-C LAB BLOOD ORDERABLES Final Res ult [facility] [id number], [facility] [phone] documented in this encounter Visit Diagnoses Diagnosis [...] FORM * 0906 (Given - Provider: Mora Munguia RN) cefTRIAXone (ROCEPHIN) 1 g in sodium chloride 0.9 % (NS) 50 mL EFRAIN IVPB (CANCELED) 1 g Every 24 hours scheduled, intravenous, at 100 mL/hr, First dose on Tue12/11/24 at 1830, For 6 days, Please choose an indication: Pneumonia, Empiric for Fever of Unknown Origin Secondary to Suspected Infection 2119 (IVPB Started - Provider: Fryea Roberts RN)2202 (IVPB Stopped - Provider: Freya Roberts RN) 2043 (IVPB Started - Provider: Milvia Price, SHARYN)2112 (IVPB Stopped - Provider: Milvia Price, SHARYN) cefTRIAXone (ROCEPHIN) 1 g in sodium [...] Munguia RN)1201 (IVPB Stopped - Provider: Mora Munguia RN) doxycycline (VIBRAMYCIN) capsule 100 mg 100 mg Every 12 hours scheduled, oral, First dose on Tue12/12/24 at 0900, Please choose an indication: Pneumonia 0824 (Given - Provider: Elizabeth Rodriguez RN)2119 (Given - Provider: Freya Roberts RN) 08 (Given - Provider: Samantha Dias RN)2043 (Given [...] Alert 1341 (Given - Provider: Samantha Dias RN)4 (Given - Provider: Milvia Price, SHARYN) famotidine (PEPCID) tablet 20 mg 20 mg Daily, oral, First dose on Tue12/13/24 at 0900, Pharmacist to renally dose if CrCl is less than 50 mL/min or on CRRT. 0848 (Given - Provider: Samantha Dias RN) 0905 (Given - Provider: Mora Munguia RN) ferric gluconate (FERRLECIT) 125 mg in sodium chloride 0.9 % (NS) 100 mL infusion (COMPLETED) 125 mg Daily, intravenous, Administer over 60 Minutes, First dose on Tue12/12/24 at 1500, For 3 days 1542 (IVPB Started - Provider: Elizabeth Rodriguez RN)1706 (IVPB Stopped - Provider: Elizabeth Rodriguez RN) 1126 (IVPB Started - Provider: Samantha Dias RN)1226 (IVPB Stopped - Provider: Samantha Dias RN) 1254 (IVPB Started - Provider: Mora Munguia, [...] (after last modification) on Tue12/13/24 at 2100 2043 (Given - Provider: Milvia Price, RN) melatonin tablet 5 mg 5 mg Every Night, oral, First dose on Tue12/11/24 at 2100 2120 (Given - Provider: Freya Roberts RN) 2043 (Given - Provider: Milvia Price, RN) multivitamin (THERAGRAN) tablet 1 tablet 1 tablet Daily, oral, First dose on Tue12/13/24 at 0900 0847 (Given - Provider: Samantha Dias RN) 0905 (Given - Provider: Mora Munguia, RN) pantoprazole (PROTONIX) EC tablet 40 mg 40 mg Daily, oral, First dose on Tue12/11/24 at 1800, * DO NOT CRUSH THIS DOSAGE FORM * 0824 (Given - Provider: Elizabeth Rodriguez RN) 0847 (Given - Provider: Samantha Dias RN) 0906 (Given - Provider: Mora Munguia RN) predniSONE (DELTASONE) tablet 10 mg (CANCELED) 10 [...] at scheduled time)2152 (Given - Provider: Freya Roberts, SHARYN - Comment: pt at MRI at due time) 0847 (Given - Provider: Samantha Dias RN)1341 (Given - Provider: Samantha Dias, SHARYN)1826 (Given - Provider: Samantha Dias, SHARYN) 0906 (Given - Provider: Mora Munguia, SHARYN)1352 (Given - Provider: Mora Munguia RN) Saccharomyces boulardii (FLORASTOR) capsule 250 mg 250 mg Daily, oral, First dose on Tue12/12/24 at 0900, Do not crush or open capsule. Must be swallowed whole. 0824 (Given - Provider: Elizabeth Rodriguez RN) 0847 (Given - Provider: Samantha Dias, SHARYN) 0906 (Given - Provider: Mora Munguia, RN) valACYclovir (VALTREX) tablet 1,000 mg 1,000 mg Daily, oral, First dose on Tue12/12/24 at 0900 0836 (Given - Provider: Elizabeth Rodriguez, SHARYN) 0847 (Given - Provider: Samantha Dias, SHARYN) [...] FORM * 1102 (Given - Provider: Elizabeth Rodriguez, SHARYN) EPINEPHrine HCl (PF) (ADRENALIN) HYPERSENSITIVITY USE injection [...] Roberts RN) 0453 (Given - Provider: Freya Roberts RN)1829 (Given - Provider: Samantha Dias RN) potassium [...] flush documented in this encounter Care Teams Osha Inspector Relationship Specialty Start Date End Date Eladio Lomas MD [id number] [place] [address] Medical Oncologist Hematology and Oncology 07/08/22 Breanna Crow PA-C [address] [facility] [address] [place] [address] Physician Forwarder Operator Oncology 07/08/22 documented as of this encounter
--- OUTSIDE RECORDS SUMMARY | 2024-12-14 15:15 | XMS_ITS | Encounter Summary ---
Author Organization [employer] ([place], [place], [place], [place]) Address [address] [place] [address] Care Team Providers Care Mixer Operator Raw Salt Name Role Phone Eladio Lomas MD Unavailable Breanna Crow PA-C Unavailable [phone] Reason for Visit * Consultation (Routine) - Closed Specialty Diagnoses / Procedures Referred By Contac t Referred To Contact Cardiology Diagnoses Palpitations Procedures HOLTER [place]IT[place] Phu[place] العر[place]قي [place] [address] [place] [address] [address] [place] [address] Phone: tel: fax: [facility] Electrophysiology [address] [place] [phone] Phone: tel: fax: Referral ID Status Reason Start Date Expiration Date Visits Re quested Visits Authorized [id number] Closed 12/14/2024 12/14/2025 1 1 Encounter Details Date Type Department Care Team (Late st Contact Info) Description 12/14/2024 3:15 PM EDT Clinical Support [facility] Electrophysiology [address] [place] [phone] Patricia Kapoor MA Palpitations Social History Tobacco Use Types Packs/Day Years [...] living situation today? I have a [facility] place to live 12/11/2024 Think about the [...] Do you speak a language other than [place] at [facility]? No 12/11/2024 Do you want help with [...] as of this encounter Plan of Treatment Upcoming Encounters Date Type Department Care Team (Late st Contact Info) Description 01/28/2025 9:45 AM EDT Office Visit [facility] Electrophysiology [address] [place] [phone] [place] [address] [place] [address] [address] [place] [address] documented as of this encounter Visit Diagnoses Diagnosis Palpitations documented in this encounter Care Teams Mixer Operator Raw Salt Relationship Specialty Start Date End Date Eladio Lomas MD [address] [facility] [address] [place] [address] Medical Oncologist Hematology and Oncology 07/08/22 Breanna Crow PA-C [address] [facility] [address] [place] [address] Physician Jacquard Loom Fixer Oncology 07/08/22 documented as of this encounter
--- NOTE | 2025-01-02 11:45 | PC.NURSE ---
labs drawn per amb orders for Dr. Lomas via butterfly needle in right ac. needle removed and coban applied. pt tolerated well.
--- OUTSIDE RECORDS SUMMARY | 2025-01-02 11:47 | XMS_ITS | Encounter Summary ---
Author Organization Healthcare Address [address] [place] [address] Care Team Providers Care Investment Banker Name Role Phone Per Patient, None Primary Care Provider Unavaila ble Encounter Details Date Type Department Care Team (Late st Contact Info) Description 01/07/2021 Orders Only [facility] [address] [place] [address] Maurisio Aguilar MD [address] [address] Social History Tobacco Use Types [...] Band Neutrophil% 0.0 0.0 - 7.0 % [facility] External Atypical Lymph% 4(H) 0 - 1 % [facility] External Metamyelocyte % 0 0 - 1 % [facility] External Myelocyte % 0 0 - 1 % [facility] External Promyelocyte% 0 % [facility] External Blast% 0 % [facility] External Nucleated RBC%-Manual 0 /100 WBC [facility] External Smudge Cells 0 [facility] External Platelet Morphology NORMAL [facility] External Ovalocytes SLIGHT(A) [facility] External Tear Drop Cells SLIGHT(A) [facility] 01/07/2021 10:0 5 AM EDT 01/07/2021 10:20 AM EDT us Maurisio Aguilar MD LAB BLOOD ORDERABLES Final Res ult Performing Organization Address City/State/[facility] Co de Phone Number [facility] [address] [place] [address], documented in this encounter Visit Diagnoses Not on filedocumented in this encounter Care Teams Investment Banker Relationship Specialty Start Date End Date Per Patient, [place] [address] PCP - General 05/02/20 documented as of this encounter
--- OUTSIDE RECORDS SUMMARY | 2025-01-02 11:47 | XMS_ITS | Encounter Summary ---
Author Organization [employer] ([place], [place], [place], [place]) Address [address] [place] [address] Care Team Providers Care Patient Registration Representative Name Role Phone Eladio Lomas MD Unavailable Breanna Crow PA-C Unavailable [phone] Reason for Visit * Reason Onset Date Comments Hospital Follow Up 12/18/2024 Encounter Details Date Type Department Care Team (Late st Contact Info) Description 12/18/2024 Telephone [facility] 4 Interventional Care Unit [address] [place] [phone] Phuong Lewis MD [address] [facility] [address] [place] [address] Hospital Follow Up Social History Tobacco Use [...] Do you speak a language other than Colombian at [facility]? No 12/11/2024 Do you want [...] would rather f/u with oncology instead. Matilda Arita APRN Neurology Nurse Practitioner [phone] [place] [phone] Next Steps: Go on 01/23/2025 Instructions: Appt time is 11 am. documented in this encounter Plan of Treatment Upcoming Encounters Date Type Department Care Team (Late st Contact Info) Description 01/28/2025 9:45 AM EDT Office Visit [facility] Electrophysiology [address] [place] [address] Phuong Lewis MD [address] [facility] [address] [place], [place] [id number] documented as of this encounter Visit Diagnoses Not on filedocumented in this encounter Care Teams Patient Registration Representative Relationship Specialty Start Date End Date Eladio Lomas MD [address] [facility] [address] [place] [address] Medical Oncologist Hematology and Oncology 07/08/22 Breanna Crow PARebelC [address] [facility] [address] [place], [place] [id number] Physician Engineering Group Manager Oncology 07/08/22 documented as of this encounter
--- OUTSIDE RECORDS SUMMARY | 2025-01-02 11:47 | XMS_ITS | Encounter Summary ---
Author Organization Healthcare Address [address] [place] [address] Care Team Providers Care Draw End Hand Name Role Phone Per Patient, None Primary Care Provider Unavaila ble Encounter Details Date Type Department Care Team (Late st Contact Info) Description 01/07/2021 Orders Only [facility] [address] [place] [address] Maurisio Aguilar MD [address] [address] Social History Tobacco Use Types [...] Res ult [facility] [address] [place] [address], [place] [phone] documented in this encounter Visit Diagnoses Not on filedocumented in this encounter Care Teams Draw End Hand Relationship Specialty Start Date End Date Per Patient, [place] [address] PCP - General 05/02/20 documented as of this encounter
--- OUTSIDE RECORDS SUMMARY | 2025-01-02 11:47 | XMS_ITS | Referral Summary ---
Author Organization [employer] ([place], [place], [place], [place]) Address [address] [place] [address] Care Team Providers Care Aerial Gunner Superintendent Name Role Phone Eladio Lomas MD Unavailable Breanna Crow PA-C Unavailable [phone] Encounters Date Type Department Care Team Description 12/18/2024 Telephone [place] [address] [facility] [address] [place] [address] Phuong Lewis MD Hospital Follow Up 12/14/2024 3:15 PM EDT Clinical Support [facility] Electrophysiology [address] [place] [address] Patricia Kapoor MA Palpitations 12/14/2024 Orders Only [facility] Electrophysiology [address] [place] [address] Covert, Dorothy MALANIS Palpitations (Primary Dx) 12/11/2024 4:55 PM EDT - 12/14/2024 2:40 PM EDT Hospital Encounter [place] [address] Interventional [address] 1 [place] [address] Pietro Toure MD Hughes, Isaac, [...] living situation today? [facility] 12/11/2024 Think [...] speak a language other than [place] at [facility]? No 12/11/2024 Do you want help with [...] Description 01/28/2025 9:45 AM EDT Office Visit [facility] Electrophysiology [address] [place] [address] Phuong Lewis MD [address] [facility] [address] [place] [address] Procedures Procedure Name Priority Date/Time Associated Diagnosis [...] 9.1 K/ L 12/14/2024 6:17 AM EDT [facility] RBC 2.63(L) 4.63 - 6.08 M/ L 12/14/2024 6:17 AM EDT [facility] Hemoglobin 8.2(L) 13.7 - 17.5 GM/DL 12/14/2024 6:17 AM EDT [facility] Hematocrit 25.9(L) 40.1 - 51.0 % 12/14/2024 6:17 AM EDT [facility] MCV 99(H) 79 - 92 fL 12/14/2024 6:17 AM EDT [facility] MCH 31.2 25.7 - 32.2 pg 12/14/2024 6:17 AM EDT [facility] MCHC 31.7(L) 32.3 - 36.5 GM/DL 12/14/2024 6:17 AM T [facility] RDW 15.0(H) 11.6 - 14.4 % 12/14/2024 6:17 AM EDT [facility] Platelets 177 140 - 375 K/CU MM 12/14/2024 6:17 AM T [facility] MPV 9.9 9.4 - 12.4 fL 12/14/2024 6:17 AM [facility] NRBC Absolute <0.01 0 - 0.012 K/ul 12/14/2024 6:17 AM T [facility] Blood Venipuncture / Unknown 12/14/2024 5:35 AM EDT 12/14/2024 6:05 AM EDT Narrative [facility] - 12/14/2024 6:17 AM EDT [...] MD LAB BLOOD ORDERABLES Final Res ult [facility] [address] [phone] * (ABNORMAL) Manual Differential (12/14/2024 5:35 AM EDT) Only the most recent of2 resultswithin the time period is included. Total Counted 100 12/14/2024 8:02 AM EDT [facility] % Neutros (manual) 13(L) 50 - 65 % 12/14/2024 8:02 AM EDT [facility] % Lymphs (manual) 86(H) 24 - 44 % 025 8:02 AM EDT [facility] % Monos (manual) 1(L) 4 - 5 % 12/15/19 25 8:02 AM EDT [facility] RBC Morphology abnormal(A) Normal 8:02 AM EDT [facility] Platelet Estimate Adequate Adequate 025 8:02 AM EDT [facility] Anisocytosis 1+ 12/14/2024 8:02 AM EDT [facility] Hypochromia 1+ 12/14/2024 8:02 AM EDT [facility] Polychromasia 1+ 12/14/2024 8:02 AM EDT [facility] Smudge Cells Present 12/14/2024 8:02 AM EDT [facility] Macrocytes 1+ 12/14/2024 8:02 AM EDT [facility] ANC# 2.89 K/ L 12/14/2024 8:02 AM EDT [facility] Blood Venipuncture / Unknown 12/14/2024 5:35 AM EDT 12/14/2024 6:05 AM EDT us Matt Vargas MD LAB BLOOD ORDERABLES Final Res ult [facility] [address] [phone] * (ABNORMAL) Basic Metabolic Panel (12/14/2024 5:35 AM EDT) Only the most recent of3 resultswithin the time period is included. Sodium 142 136 - 145 meq/L 12/14/2024 6:48 AM EDT [facility] Potassium 3.9 3.4 - 5.1 meq/L 12/14/2024 6:48 AM EDT [facility] CO2 25 22 - 29 meq/L 12/14/2024 6:48 AM EDT [facility] Chloride 108 98 - 112 meq/L 12/14/2024 6:48 AM EDT [facility] Glucose 120(H) 82 - 115 mg/dL 12/14/2024 6:48 AM EDT [facility] BUN 14.4 8.4 - 25.7 mg/dL 12/14/2024 6:48 AM EDT [facility] Creatinine 0.68(L) 0.72 - 1.25 mg/dL 12/14/2024 6:48 AM EDT [facility] BUN/Creatinine 21(H) 8 - 20 12/14/2024 6:48 AM EDT [facility] Calcium 7.7(L) 8.4 - 10.2 mg/dL 12/14/2024 6:48 AM EDT [facility] Anion Gap 13(H) 4 - 12 12/14/2024 6:48 AM EDT [facility] eGFR (mL/min/1.73m2) 96 >=60 mL/min/1.7 3m2 12/14/2024 6:48 AM EDT [facility] Osmolality Calc 284.9 mOsm/kg 6:48 AM EDT [facility] Blood Venipuncture / Unknown 12/14/2024 5:35 AM EDT 12/14/2024 6:18 AM EDT us Maria Guadalupe Lopez MD LAB BLOOD ORDERABLES Final Re sult [facility] [address] [phone] * Sedimentation rate (12/13/2024 6:09 PM EDT) Sed Rate 10 0 - 20 mm/HR 12/13/2024 6:24 PM EDT [facility] Blood Venipuncture / Unknown 12/13/2024 6:09 PM EDT 12/13/2024 6:20 PM EDT us Jaron Amin MD LAB BLOOD ORDERABLES Final Resul t [facility] [address] [phone] * ECHO COMPLETE (DOPPLER / COLOR) WO CONTRAST (12/13/2024 1:08 PM EDT) Anatomical Region Laterality Modality Heart Vascular Ultraso und 12/13/2024 12:1 1 PM EDT Narrative 12/13/2024 11:34 PM EDT TRANSTHORACIC ECHOCARDIOGRAPHY REPORT Demographics Patient Name: SANDIE KOROMA : 1950 Age: 74 year(s) Corporate ID Number: [id number] Gender Male Business And Financial Counsel: Jillian Souza Height: 65 inches [facility] Referring Physician: MARIA GUADALUPE LOPEZ MD Weight: 139 pounds Interpreting BEBETO WALTER MD BMI: 23.13 kg/m^2 Physician: Date of Service: 12/13/2024 Blood Pressure: 118/57 mmHg Room Number: 405 Type of Study: TTE procedure: ECHO COMPLETE (DOPPLER / COLOR) W OR WO CONTRAST. Patient Status: Routine IP [facility] Adequate visualization History/Tech Notes: Indication: other [...] 1.15 m/s E/A ratio: 1.42 m/s Volume hfnxyazop240.52 LV length: 8.99 cm ml Volume oyldsfvb90.92 ml LVOT diameter: 2.03 cm Normal sized [...] Valve TR velocity: 3 m/s TR gradient: 35.97146 mmHg Estimated RAP: 8 mmHg RVSP: 43.96 [...] 1950 Age: 74 year(s) Corporate ID Number: [id number] Gender Male Business And Financial Counsel: Jillianmoise Souza Height: 65 inches [facility] Referring Physician: MARIA GUADALUPE LOPEZ MD Weight: 139 pounds Interpreting BEBETO WALTER MD BMI: 23.13 kg/m^2 Physician: Date of Service: 12/13/2024 Blood Pressure: 118/57 mmHg Room Number: 405 Type of Study: TTE procedure: ECHO COMPLETE (DOPPLER / COLOR) W OR WO CONTRAST. Patient Status: Routine IP [facility] Adequate visualization History/Tech Notes: Indication: other [...] 1.15 m/s E/A ratio: 1.42 m/s Volume svfreegic498.52 LV length: 8.99 cm ml Volume fofwsjzf82.92 ml LVOT diameter: 2.03 cm Normal sized [...] Valve TR velocity: 3 m/s TR gradient: 35.28364 mmHg Estimated RAP: 8 mmHg RVSP: 43.96 [...] Demographics Patient Name SANDIE SMITH Age 74 [place] Patient Number [id number] Gender Male Race Ethnicity Corporate ID [id number] Height 65 Date of 1950 Weight 139 Accession Number [id number] BSA 1.69 m^2 Room Number 405 BMI 23.13 kg/m^2 Referring Alyson Ferguson MD Interpreting BEBETO WALTER MD Physician Physician Business And Financial Counsel Rosy Guido, T Procedure Type of Study: [...] SANDIE SMITH Age 74 [place] Patient Number [id number] Gender Male Race Ethnicity Corporate ID [id number] Height 65 Date of 1950 Weight 139 Accession Number [id number] BSA 1.69 m^2 Room Number 405 BMI 23.13kg/m^2 Referring Alyson Ferguson MD Interpreting BEBETO PERALTA Physician Physician Business And Financial Counsel Rosy Guido RVT Procedure Type of Study: [...] SANDIE SMITH Age 74 [place] Patient Number [id number] Gender Male Race Ethnicity Corporate ID [id number] Height 65 Date of 1950 Weight 139 Accession Number [id number] BSA 1.69 m^2 Room Number 405 BMI 23.13 kg/m^2 Referring MARIA GUADALUPE LOPEZ MD Interpreting BEBETO WALTER MD Physician Physician Business And Financial Counsel Rosy Guido, T Procedure Type of Study: [...] Demographics Patient Name SANDIE SMITH Age 74 [place] Patient Number [id number] Gender Male Race Ethnicity Corporate ID [id number] Height 65 Date of 1950 Weight 139 Accession Number [id number] BSA 1.69 m^2 Room Number 405 BMI 23.13kg/m^2 Referring MARIA GUADALUPE LOPEZ MD Interpreting BEBETO PERALTA Physician Physician Business And Financial Counsel Rosy Guido RVT Procedure Type of Study: [...] - 5.0 mg/L 12/13/2024 6:10 PM EDT [facility] Blood Venipuncture / Unknown 12/13/2024 5:12 AM EDT 12/13/2024 5:24 AM EDT Jaron Amin MD LAB BLOOD ORDERABLES Final Resul t Performing Organization Address City/[facility]/ZIP Co de Phone Number [facility] [address] [phone] * Vitamin D, 25-Hydroxy (12/13/2024 5:12 AM EDT) Vitamin D 25-Hydroxy 31.33 30 - 80 ng/mL 12/13/2024 6:13 AM EDT [facility] Blood Venipuncture / Unknown 12/13/2024 5:12 AM EDT 12/13/2024 5:24 AM EDT Maria Guadalupe Lopez MD LAB BLOOD ORDERABLES Final Re sult Performing Organization Address [facility]/ZIP Co de Phone Number [facility] [address] [phone] * TSH (12/13/2024 5:12 AM EDT) TSH 2.613 0.350 - 4.940 uIU/mL 12/13/2024 6:07 AM EDT [facility] Blood Venipuncture / Unknown 12/13/2024 5:12 AM EDT 12/13/2024 5:24 AM EDT Maria Guadalupe Lopez MD LAB BLOOD ORDERABLES Final Re sult Performing Organization Address City/[facility]/ZIP Co de Phone Number [facility] [address] [phone] * Magnesium (12/13/2024 5:12 AM EDT) Magnesium 2.2 1.6 - 2.6 mg/dL 12/13/2024 3:16 PM EDT [facility] Blood Venipuncture / Unknown 12/13/2024 5:12 AM EDT 12/13/2024 5:24 AM EDT us Phuong Lewis MD LAB BLOOD ORDERABLES Final Resu lt [facility] [address] [phone] * (ABNORMAL) Lipid panel (12/13/2024 5:12 AM EDT) Triglycerides 108 <=149 mg/dL 12/13/2024 8:20 AM EDT [facility] Comment: Normal: < 150 mg/dL Borderline High: 150 to 199 mg/dL High: 200 to 499 mg/dL Very High: >/= 500 mg/dL Cholesterol 81(L) 100 - 199 mg/dL 12/13/2024 8:20 AM EDT [facility] Comment: Child: Desirable: < 170 mg/dL Borderline: 170 to 199 mg/dL High: >/= 200 mg/dL Adult: Desirable: < 200 mg/dL Borderline: 200 to 239 mg/dL High: >/= 240 mg/dL HDL Cholesterol 12 See Comment mg/dL 12/13/2024 8:20 AM EDT [facility] Comment: Major risk factor for heart disease: < 40 mg/dL Negative risk factor for heart disease: >/= 60 mg/dL LDL Cholesterol, Calculated 47 0 - 100 mg/dL 12/13/2024 8:20 AM EDT [facility] Comment: Unable to calculate Optimal: < 100 mg/dL Near or above optimal: 100 to 129 mg/dL Borderline high: 130 to 159 mg/dL High: 160 to 189 mg/dL Very high: >/= 190 mg/dL Based on AHA/NCEP Guidelines LDl/HDL Ratio 4 0 - 4 12/13/2024 8:20 AM EDT [facility] Comment:Unable to calculate. Cholesterol/HDL ratio 6.8(H) 0.0 - 5.0 mg/dL 12/13/2024 8:20 AM EDT [facility] VLDL Cholesterol 21.6 5 - 40 mg/dL 12/13/2024 8:20 AM T [facility] Comment:Unable to calculate Blood Venipuncture / Unknown 12/13/2024 5:12 AM EDT 12/13/2024 5:24 AM EDT us Maria Guadalupe Lopez MD LAB BLOOD ORDERABLES Final Re sult [facility] 1 [place] [address], [facility] [phone] * MR Brain Without IV Contrast (12/12/2024 [...] pneumonia- see comment 12/12/2024 12:09 PM EDT [facility] Urine URINE / Unknown 12/12/2024 1 1:48 AM EDT 12/12/2024 11:48 AM EDT Narrative [facility] - 12/12/2024 12:09 PM EDT A presumptive negative result suggests no current or recent pneumococcal infection. Infection due to S. pneumoniae cannot be ruled out since the antigen present in the specimen may be below the detection limit of the test. Maria Guadalupe Lopez MD MICROBIOLOGY - GENERAL ORDERA BLES Final Result [facility] [address] [phone] * Legionella antigen, urine (12/12/2024 11:48 AM EDT) Legionella Urine Antigen Presumptive negative for L. pneumophila serogroup 1 antigen in urine- see comment Presumptive negative for L. pneumophila serogroup 1 antigen in urine- see comment 12/12/2024 12:08 PM EDT [facility] Urine 12/12/2024 11:4 8 AM EDT 12/12/2024 11:48 AM EDT [facility] - 12/12/2024 12:08 PM EDT Presumptive [...] Guadalupe Lopez MD URINE ORDERABLES Final Result [facility] [address] [phone] * Respiratory Panel (12/12/2024 10:27 AM EDT) ADENOVIRUS Not detected Not detected 12/12/2024 11:25 AM EDT [facility] CORONAVIRUS 229E Not detected Not detected 12/12/2024 11:25 AM EDT [facility] CORONAVIRUS HKU1 Not detected Not detected 12/12/2024 11:25 AM EDT [facility] CORONAVIRUS NL63 Not detected Not detected 12/12/2024 11:25 AM EDT [facility] CORONAVIRUS OC43 Not detected Not detected 12/12/2024 11:25 AM EDT [facility] SARS-COV2/RT-PCR Not Detected Not Detected 12/12/2024 11:25 AM EDT [facility] HUMAN METAPNEUMOVIRUS Not detected Not detected 12/12/2024 11:25 AM EDT [facility] HUMAN RHINOVIRUS/ENTEROV IRUS Not detected Not detected 12/12/2024 11:25 AM EDT [facility] INFLUENZA A Not detected Not detected 12/12/2024 11:25 AM EDT [facility] INFLUENZA B Not detected Not detected 12/12/2024 11:25 AM EDT [facility] PARAINFLUENZA VIRUS 1 Not detected Not detected 12/12/2024 11:25 AM EDT [facility] PARAINFLUENZA VIRUS 2 Not detected Not detected 12/12/2024 11:25 AM EDT [facility] PARAINFLUENZA VIRUS 3 Not detected Not detected 12/12/2024 11:25 AM EDT [facility] PARAINFLUENZA VIRUS 4 Not detected Not detected 12/12/2024 11:25 AM EDT [facility] RESPIRATORY SYNCYTIAL VIRUS Not detected Not detected 12/12/2024 11:25 AM EDT [facility] BORDETELLA PARAPERTUSSIS Not detected Not detected 12/12/2024 11:25 AM EDT [facility] BORDETELLA PERTUSSIS Not detected Not detected 12/12/2024 11:25 AM EDT [facility] CHLAMYDIA PNEUMONIAE Not detected Not detected 12/12/2024 11:25 AM EDT [facility] MYCOPLASMA PNEUMONIAE Not detected Not detected 12/12/2024 11:25 AM EDT [facility] Nasopharyngeal NASOPHARYNGEAL SWAB / Unknown 12/12/2024 10:27 AM EDT 12/12/2024 10:28 AM EDT [facility] - 12/12/2024 11:25 AM EDT Testing was performed with RT-PCR methodology using the [employer] Respiratory Panel 2.1 which has FDA De [...] [facility] using the [employer] Respiratory Panel. It is FDA cleared and [...] MICROBIOLOGY - GENERAL ORDERA BLES Final Result [facility] [address] [phone] * MRSA Screen (12/12/2024 10:27 AM EDT) Pathologist [facility] MRSA by PCR [facility] MRSA Not Detected by PCR MRSA Not Detected by PCR DEVICE ID9 12/12/2024 11:45 AM EDT [facility] Nasal BOTH ANTERIOR NARES / Unknown 12/12/2024 10:27 AM EDT 12/12/2024 10:28 AM EDT us Maria Guadalupe Lopez MD MICROBIOLOGY - GENERAL ORDERA BLES Final Result Performing Organization Address City/[facility]/ZIP Co de Phone Number [facility] [address] [phone] * XR chest AP portable (12/12/2024 9:10 [...] 9.1 K/ L 12/12/2024 4:46 AM EDT [facility] RBC 2.60(L) 4.63 - 6.08 M/ L 12/12/2024 4:46 AM EDT [facility] Hemoglobin 8.2(L) 13.7 - 17.5 GM/DL 12/12/2024 4:46 AM EDT [facility] Hematocrit 25.8(L) 40.1 - 51.0 % 12/12/2024 4:46 AM EDT [facility] MCV 99(H) 79 - 92 fL 12/12/2024 4:46 AM EDT [facility] MCH 31.5 25.7 - 32.2 pg 12/12/2024 4:46 AM EDT [facility] MCHC 31.8(L) 32.3 - 36.5 GM/DL 12/12/2024 4:46 AM EDT [facility] RDW 14.8(H) 11.6 - 14.4 % 12/12/2024 4:46 AM EDT [facility] Platelets 168 140 - 375 K/CU MM 12/12/2024 4:46 AM EDT [facility] MPV 9.7 9.4 - 12.4 fL 12/12/2024 4:46 AM EDT [facility] Blood Venipuncture / Unknown 12/12/2024 3:51 AM EDT 12/12/2024 4:35 AM EDT us Aneudy Fitch PA-C LAB BLOOD ORDERABLES Final Res ult [facility] [address] [place] [id number] [phone] * (ABNORMAL) Iron and TIBC (12/12/2024 3:51 AM EDT) Iron 11(L) 65 - 175 ug/dL 12/12/2024 10:35 AM EDT [facility] TIBC 183(L) 250 - 435 ug/dL 12/12/2024 10:35 AM EDT [facility] % Saturation 6 % 12/12/2024 10:35 AM EDT [facility] UIBC 172 12/12/2024 10:35 AM EDT [facility] Blood Venipuncture / Unknown 12/12/2024 3:51 AM EDT 12/12/2024 4:38 AM EDT us Maria Guadalupe Lopez MD LAB BLOOD ORDERABLES Final Re sult Performing Organization Address City/[facility]/ZIP Co de Phone Number [facility] [address] [phone] * (ABNORMAL) Ferritin (12/12/2024 3:51 AM EDT) Ferritin 474.71(H) 21.81 - 274.66 ng/mL 12/12/2024 10:35 AM EDT [facility] Blood Venipuncture / Unknown 12/12/2024 3:51 AM EDT 12/12/2024 4:38 AM EDT us Maria Guadalupe Lopez MD LAB BLOOD ORDERABLES Final Re sult Performing Organization Address [facility]/ZIP Co de Phone Number [facility] [address] [phone] * Vitamin B12 (12/12/2024 3:51 AM EDT) Vitamin B12 439 213 - 816 pg/mL 12/12/2024 10:35 AM EDT [facility] Blood Venipuncture / Unknown 12/12/2024 3:51 AM EDT 12/12/2024 4:38 AM EDT us Maria Guadalupe Lopez MD LAB BLOOD ORDERABLES Final Re sult [facility] [address] [place] [address], [facility] [phone] from Last 3 Months Insurance [facility] MEDICARE PPO [facility] MEDICARE PPO Advance Directives For more information, please contact: [phone] * DNR - Limited Additional Intervention (Latest Code Status on File) Date Activated Date Inactivated Comments 12/11/2024 4:28 PM 12/14/2024 3:42 PM Care Teams Aerial Gunner Superintendent Relationship Specialty Start Date End Date Eladio Lomas MD [address] [facility] [address] [place] [address] Medical Oncologist Hematology and Oncology 07/08/22 Breanna Crow, PA-C [address] [facility] [address] [place] [address] Physician Die Setter Oncology 07/08/22
--- OUTSIDE RECORDS SUMMARY | 2025-01-02 11:47 | XMS_ITS | Clinical Summary ---
Author Organization [facility] Address [address] [place] [address] Care Team Providers Care Commercial Art Instructor Name Role Phone Provider, No Known Primary [...] 02/05/2021, , 01/17/2020, Additional history exists Insurance [facility] MEDICARE ADVANTAGE Care Teams Commercial Art Instructor Relationship Specialty Start Date End Date Provider, No Known [facility] [place] [address] PCP - General 10/07/21
--- OUTSIDE RECORDS SUMMARY | 2025-01-02 11:47 | XMS_ITS | Encounter Summary ---
Author Organization Healthcare Address [address] [place] [address] Care Team Providers Care Brick Washer Name Role Phone Per Patient, None Primary Care Provider Unavaila ble Encounter Details Date Type Department Care Team (Late st Contact Info) Description 01/07/2021 Orders Only [facility] [address] [place] [address] Maurisio Aguilar MD [address] [address] Social History Tobacco Use Types [...] External WBC 6.9 3.8 - 10.8 K/uL [facility] External Red Blood Cell (RBC) 5.24 4.20 - 5.80 M/uL [facility] External Hemoglobin 15.5 14.0 - 18.0 G/DL [facility] External Hematocrit 44.1 40.0 - 52.0 % [facility] External MCV 84 80 - 100 fL [facility] External MCH 30 26 - 35 PG [facility] External MCHC 35 32 - 36 G/DL [facility] External RDW 13.5 11.0 - 15.0 % [facility] External Mean Platelet Volume 7.6 6.2 - 10.5 fL [facility] External Platelets 162 130 - 400 K/uL [facility] External Neutrophil# 3.0 1.6 - 8.4 K/uL [facility] External Lymphocyte# 3.2 0.4 - 5.1 K/uL [facility] External Absolute Monocyte (Abs Emmons) 0.4 0.0 - 1.2 K/uL [facility] External Eosinophils# 0.1 0.0 - 0.8 K/uL [facility] External Baso# 0.0 0.0 - 0.3 K/uL [facility] External Neutrophils % 43.0 42.0 - 78.0 % [facility] External Lymphocyte % 46.0 11.0 - 47.0 % [facility] External Monocyte % 6.0 0.0 - 11.0 % [facility] External Eosinophil% 1.0 0.0 - 7.0 % [facility] External Basophil % 0.0 0.0 - 3.0 % [facility] External Nucleated RBC%-Auto 0.2 0.0 - 0.9 % [facility] External Nucleated RBC Absolute 0.01 Not Estab. K/uL [facility] 01/07/2021 10:0 5 AM EDT 01/07/2021 10:20 AM EDT us Maurisio Aguilar MD LAB BLOOD ORDERABLES Final Res ult Performing Organization Address City/State/[facility] Co de Phone Number [facility] [address] [id number], documented in this encounter Visit Diagnoses Not on filedocumented in this encounter Care Teams Brick Washer Relationship Specialty Start Date End Date Per Patient, [place] [address] PCP - General 05/02/20 documented as of this encounter
--- OUTSIDE RECORDS SUMMARY | 2025-01-02 11:47 | XMS_ITS | Clinical Summary ---
Author Organization [facility] Address [address] [place] [address] Care Team Providers Care Human Resource Manager Name Role Phone Per Patient, None [...] or (1 - 1-dose 75+ series) 01/05/2023 [id number] Vaccine ( - 2024-25 season) 2024 07/25/2020, 06/24/2020, 06/11/2020 [...] this topic Insurance [employer] MEDICARE Care Teams Human Resource Manager Relationship Specialty Start Date End Date Per Patient, [place] [address] PCP - General 05/02/20
--- OUTSIDE RECORDS SUMMARY | 2025-01-02 11:47 | XMS_ITS | Clinical Summary ---
Author Organization [facility] Address [address] [facility] [address] [address] [place] [address] Phone Care Team Providers Care Superintendent Measurement Name Role Phone Godfrey ALFARO, José Miguel Michaels [facility] [ ] Conditions or Problems Problem Name Problem Code Onset Date Status Entry Date Provider Comment Standard Description Annotate Acute DVT of leg, right 272917367 (SNOMED CT) Active José Miguel Donahue MD Deep venous thrombosis of lower extremity Health advice, education, or counseling 929387709 (SNOMED CT) Active José Miguel Donahue MD Procedure carried out on subject PERSONAL HISTORY OF IMMUNOSUPPRES PILLO THERAPY 326384455 (SNOMED CT) 12/10 Active 12/10 José Miguel Dnoahue MD History of immunosuppressiv e therapy Foot drop, right 4785967 (SNOMED CT) 10/27 Active 10/27 José Miguel Donahue MD Foot-drop Benign Essential Hypertension 34214712 (SNOMED CT) 10/22 Active 10/22 Dorothy Juanpablo Benign hypertension Disseminated herpes zoster 05424154 (SNOMED CT) 10/22 Active 10/22 Dorothy Juanpablo Disseminated herpes zoster 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 10/22 Dorothy Juanpablo Leukemoid reaction Chronic lymphoid leukemia 35458248 (SNOMED CT) 10/22 Active 10/22 Dorothy Juanpablo Chronic lymphoid leukemia, disease Medications Medication Instructions Start Date Stop Date Generic Name [facility] Provider ELIQUIS 5 MG TABS twice a day apixaban 54432573928 Tonia Noland VALTREX 1 GM TABS Take 1 tablet by mouth once a day valacyclovir 83669589067 José Miguel Donahue MD ALLOPURINOL 300 MG TABS 1 tablet by mouth once a day allopurinol 47963790193 Suzanne Cope ELIQUIS 5 MG TABS 2 tablet by mouth twice a day apixaban 28559887107 Suzanne Cope PREDNISONE 10 MG TABS Take as directed prednisone 01299906433 Suzanne Cope VALTREX 500 MG TABS 2 tablet by mouth once a day valacyclovir 95863806506 Faby Donahue VALTREX 1 GM TABS Take 1 tablet by mouth once a day valacyclovir 39371762709 Faby Donahue ALLOPURINOL 300 MG TABS 1 tablet by mouth once a day allopurinol 30557378482 Marianayvette Wiggins ELIQUIS 5 MG TABS 2 tablet by mouth twice a day apixaban 82454429804 Marianayvette Wiggins Lactobacillus acidophilus 1 billion cell capsule 1 capsule by mouth twice a day lactobacillus acidophilus Mariana Wiggins MULTI-VITAMINS TABS multivitamin 13697656622 Mariana Wiggins PREDNISONE 10 MG TABS Take as directed prednisone 79438825800 Mariana Wiggins TYLENOL 325 MG TABS 2 tablet by mouth every four hours as needed acetaminophen 69294084320 Mariana Wiggins VALTREX 500 MG TABS 2 tablet by mouth once a day valacyclovir 40167653934 Mariana Rosalie Medications Administered No information available. [...] Labs CPT-sl STAT Labs CPT-sl STAT Labs CPT-47106 CMP [id number] CBC with Differential 2021 Vital Signs Date [...]
--- OUTSIDE RECORDS SUMMARY | 2025-01-02 11:47 | XMS_ITS | Clinical Summary ---
Author Organization [employer] ([place], [place], [place], [place]) Address [address] [place] [address] Care Team Providers Care Electrical Power Station Technician Name Role Phone Eladio Lomas MD Unavailable Breanna Crow PA-C Unavailable [phone] Allergies Active Allergy Reactions Criticality Noted [...] Type Department Care Team Description 12/18/2024 Telephone [place] [address] Interventional Care Unit [address] [place] [phone] Phuong Lewis MD Hospital Follow Up 12/14/2024 3:15 PM EDT Clinical Support [facility] Electrophysiology [address] [place], [place] [phone] Patricia Kapoor MA Palpitations 12/14/2024 Orders Only [facility] Electrophysiology [address] [place] [address] Covert, Dorothy Urena CMA Palpitations (Primary Dx) 12/11/2024 4:55 PM EDT - 12/14/2024 2:40 PM EDT Hospital Encounter [place] [address] Interventional Care Unit [address] [place] [phone] Pietro Toure MD Hughes, Isaac, PA-C [place], [...] situation today? I have a [facility] place to live 12/11/2024 Think [...] Do you speak a language other than Arabic at [facility]? No 12/11/2024 Do you want help [...] Description 01/28/2025 9:45 AM EDT Office Visit [facility] Electrophysiology [address] [place] [address] Phuong Lewis MD [address] [facility] [address] [place] [phone] Health Maintenance Due Date Last Done Comments Medicare Initial AWV G0438 Depression Screening (12+) 1962 Hepatitis C Screening 01/05/1966 DTAP/TDAP/TD VACCINES (1 - Tdap) 01/05/1967 Shingles Vaccine (Zoster) (2 of 2) 04/08/20222021 Respiratory Syncytial Virus (RSV) Adult or (1 - 1-dose 75+ series) 01/05/2023 Falls Risk Screening 05/02/2024 COVID-19 VACCINE (6 - 2024-2 6 season) 2024 03/05/2022, 08/25/2021, 03/02/2021, Additional history exists Influenza Vaccine (#1) 2024 , 02/05/2021, 04/10/2018, [...] 9.1 K/ L 12/14/2024 6:[address] [facility] RBC 2.63(L) 4.63 - 6.08 M/ L 12/14/2024 6:[address] [facility] Hemoglobin 8.2(L) 13.7 - 17.5 GM/DL 12/14/2024 6:[address] [facility] Hematocrit 25.9(L) 40.1 - 51.0 % 12/14/2024 6:[address] [facility] MCV 99(H) 79 - 92 fL 12/14/2024 6:[address] [facility] MCH 31.2 25.7 - 32.2 pg 12/14/2024 6:[address] [facility] MCHC 31.7(L) 32.3 - 36.5 GM/DL 12/14/2024 6:[address] [facility] RDW 15.0(H) 11.6 - 14.4 % 12/14/2024 6:[address] [facility] Platelets 177 140 - 375 K/CU MM 12/14/2024 6:[address] [facility] MPV 9.9 9.4 - 12.4 fL 12/14/2024 6:[address] [facility] NRBC Absolute <0.01 0 - 0.012 K/ul 12/14/2024 6:[address] [facility] Blood Venipuncture / Unknown 12/14/2024 5:35 AM EDT 12/14/2024 6:[address] [facility] - 12/14/2024 6:17 AM EDT [...] MD LAB BLOOD ORDERABLES Final Res ult [facility] [address] [place] [address] * (ABNORMAL) Manual Differential (12/14/2024 5:35 AM EDT) Only the most recent of2 resultswithin the time period is included. Total Counted 100 12/14/2024 8:[address] [facility] % Neutros (manual) 13(L) 50 - 65 % 12/14/2024 8:[address] [facility] % Lymphs (manual) 86(H) 24 - 44 % 025 8:[address] [facility] % Monos (manual) 1(L) 4 - 5 % 12/15/19 25 8:[address] [facility] RBC Morphology abnormal(A) Normal 8:[address] [facility] Platelet Estimate Adequate Adequate 025 8:[address] [facility] Anisocytosis 1+ 12/14/2024 8:[address] [facility] Hypochromia 1+ 12/14/2024 8:[address] [facility] Polychromasia 1+ 12/14/2024 8:[address] [facility] Smudge Cells Present 12/14/2024 8:[address] [facility] Macrocytes 1+ 12/14/2024 8:[address] [facility] ANC# 2.89 K/ L 12/14/2024 8:[address] [facility] Blood Venipuncture / Unknown 12/14/2024 5:35 AM EDT 12/14/2024 6:05 AM EDT us Matt Vargas MD LAB BLOOD ORDERABLES Final Res ult [facility] [address] [phone] * (ABNORMAL) Basic Metabolic Panel (12/14/2024 5:35 AM EDT) Only the most recent of3 resultswithin the time period is included. Sodium 142 136 - 145 meq/L 12/14/2024 6:[address] [facility] Potassium 3.9 3.4 - 5.1 meq/L 12/14/2024 6:[address] [facility] CO2 25 22 - 29 meq/L 12/14/2024 6:[address] [facility] Chloride 108 98 - 112 meq/L 12/14/2024 6:[address] [facility] Glucose 120(H) 82 - 115 mg/dL 12/14/2024 6:[address] [facility] BUN 14.4 8.4 - 25.7 mg/dL 12/14/2024 6:[address] [facility] Creatinine 0.68(L) 0.72 - 1.25 mg/dL 12/14/2024 6:[address] [facility] BUN/Creatinine 21(H) 8 - 20 12/14/2024 6:[address] [facility] Calcium 7.7(L) 8.4 - 10.2 mg/dL 12/14/2024 6:[address] [facility] Anion Gap 13(H) 4 - 12 12/14/2024 6:[address] [facility] eGFR (mL/min/1.73m2) 96 >=60 mL/min/1.7 3m2 12/14/2024 6:[address] [facility] Osmolality Calc 284.9 mOsm/kg 6:[address] [facility] Blood Venipuncture / Unknown 12/14/2024 5:35 AM EDT 12/14/2024 6:18 AM EDT us Maria Guadalupe Lopez MD LAB BLOOD ORDERABLES Final Re sult Performing Organization Address [facility]/ZIP Co de Phone Number [facility] [address] [place] [address] * Sedimentation rate (12/13/2024 6:09 PM EDT) Sed Rate 10 0 - 20 mm/HR 12/13/2024 6:[address] [facility] Blood Venipuncture / Unknown 12/13/2024 6:09 PM EDT 12/13/2024 6:20 PM EDT us Jaron Amin MD LAB BLOOD ORDERABLES Final Resul t Performing Organization Address [facility] Co de Phone Number [facility] [address] [place] [address] * ECHO COMPLETE (DOPPLER / COLOR) WO CONTRAST (12/13/2024 1:08 PM EDT) Anatomical Region Laterality Modality Heart Vascular Ultraso und 12/13/2024 12:1 1 PM EDT Narrative 12/13/2024 11:34 PM EDT TRANSTHORACIC ECHOCARDIOGRAPHY REPORT Demographics Patient Name: SANDIE KOROMA : 1950 Age: 74 year(s) Corporate ID Number: [id number] Gender Male Airbrush Artist: Jillian Souza Height: 65 inches RDCS Referring Physician: MARIA GUADALUPE LOPEZ MD Weight: 139 pounds Interpreting BEBETO WALTER MD BMI: 23.13 kg/m^2 Physician: Date of Service: 12/13/2024 Blood Pressure: 118/57 mmHg Room Number: 405 Type of Study: TTE procedure: ECHO COMPLETE (DOPPLER / COLOR) W OR WO CONTRAST. Patient Status: Routine IP [facility] Adequate visualization History/Tech Notes: Indication: other [...] 1.15 m/s E/A ratio: 1.42 m/s Volume flrmrgebo710.52 LV length: 8.99 cm ml Volume ncfpfywe28.92 ml LVOT diameter: 2.03 cm Normal sized [...] Valve TR velocity: 3 m/s TR gradient: 35.38560 mmHg Estimated RAP: 8 mmHg RVSP: 43.96 [...] 1950 Age: 74 year(s) Corporate ID Number: [id number] Gender Male Airbrush Artist: Jillian Souza Height: 65 inches [facility] Referring Physician: MARIA GUADALUPE LOPEZ [...] 1.15 m/s E/A ratio: 1.42 m/s Volume ueeauenvn651.52 LV length: 8.99 cm ml Volume pdkuxcnf52.92 ml LVOT diameter: 2.03 cm Normal sized [...] Valve TR velocity: 3 m/s TR gradient: 35.03166 mmHg Estimated RAP: 8 mmHg RVSP: 43.96 [...] Demographics Patient Name SANDIE SMITH Age 74 [place] Patient Number [id number] Gender Male Race Ethnicity Corporate ID [id number] Height 65 Date of 1950 Weight 139 Accession Number [id number] BSA 1.69 m^2 Room Number 405 BMI 23.13 kg/m^2 Referring Alyson Ferguson MD Interpreting BEBETO WALTER MD Physician Physician Airbrush Artist Rosy Guido T Procedure Type of Study: [...] Demographics Patient Name SANDIE SMITH Age 74 [place] Patient Number [id number] Gender Male Race Ethnicity Corporate ID [id number] Height 65 Date of 1950 Weight 139 Accession Number [id number] BSA 1.69 m^2 Room Number 405 BMI 23.13kg/m^2 Referring Alyson Ferguson MD Interpreting BEBETO PERALTA Physician Physician Airbrush Artist Rosy Guido RVT Procedure Type of Study: [...] Demographics Patient Name SANDIE SMITH Age 74 [place] Patient Number [id number] Gender Male Race Ethnicity Corporate ID [id number] Height 65 Date of 1950 Weight 139 Accession Number [id number] BSA 1.69 m^2 Room Number 405 BMI 23.13 kg/m^2 Referring MARIA GUADALUPE LOPEZ MD Interpreting BEBETO WALTER MD Physician Physician Airbrush Artist Rosy Guido, T Procedure Type of Study: [...] Demographics Patient Name SANDIE SMITH Age 74 [place] Patient Number [id number] Gender Male Race Ethnicity Corporate ID [id number] Height 65 Date of 1950 Weight 139 Accession Number [id number] BSA 1.69 m^2 Room Number 405 BMI 23.13kg/m^2 Referring MARIA GUADALUPE LOPEZ MD Interpreting BEBETO PERALTA Physician Physician Airbrush Artist Rosy Guido RVT Procedure Type of Study: [...] (ABNORMAL) C-Reactive Protein (12/13/2024 5:12 AM EDT) [facility] CRP 92.6(H) 0.0 - 5.0 mg/L 12/13/2024 6:[address] [facility] Blood Venipuncture / Unknown 12/13/2024 5:12 AM EDT 12/13/2024 5:24 AM EDT Jaron Amin MD LAB BLOOD ORDERABLES Final Resul t Performing Organization Address City/[facility]/ZIP Co de Phone Number [facility] [address] [phone] * Vitamin D, 25-Hydroxy (12/13/2024 5:12 AM EDT) [facility] Vitamin D 25-Hydroxy 31.33 30 - 80 ng/mL 12/13/2024 6:[address] [facility] Blood Venipuncture / Unknown 12/13/2024 5:12 AM EDT 12/13/2024 5:24 AM EDT Maria Guadalupe Lopez MD LAB BLOOD ORDERABLES Final Re sult [facility] [address] [phone] * TSH (12/13/2024 5:12 AM EDT) [facility] TSH 2.613 0.350 - 4.940 uIU/mL 12/13/2024 6:[address] [facility] Blood Venipuncture / Unknown 12/13/2024 5:12 AM EDT 12/13/2024 5:24 AM EDT us Maria Guadalupe Lopez MD LAB BLOOD ORDERABLES Final Re sult Performing Organization Address City/[facility]/ZIP Co de Phone Number [facility] [address] [phone] * Magnesium (12/13/2024 5:12 AM EDT) Magnesium 2.2 1.6 - 2.6 mg/dL 12/13/2024 3:[address] [facility] Blood Venipuncture / Unknown 12/13/2024 5:12 AM EDT 12/13/2024 5:24 AM EDT us Phuong Lewis MD LAB BLOOD ORDERABLES Final Resu lt [facility] [address] [phone] * (ABNORMAL) Lipid panel (12/13/2024 5:12 AM EDT) Triglycerides 108 <=149 mg/dL 12/13/2024 8:[address] [facility] Comment: Normal: < 150 mg/dL Borderline High: 150 to 199 mg/dL High: 200 to 499 mg/dL Very High: >/= 500 mg/dL Cholesterol 81(L) 100 - 199 mg/dL 12/13/2024 8:[address] [facility] Comment: Child: Desirable: < 170 mg/dL Borderline: 170 to 199 mg/dL High: >/= 200 mg/dL Adult: Desirable: < 200 mg/dL Borderline: 200 to 239 mg/dL High: >/= 240 mg/dL HDL Cholesterol 12 See Comment mg/dL 12/13/2024 8:[address] [facility] Comment: Major risk factor for heart disease: < 40 mg/dL Negative risk factor for heart disease: >/= 60 mg/dL LDL Cholesterol, Calculated 47 0 - 100 mg/dL 12/13/2024 8:[address] [facility] Comment: Unable to calculate Optimal: < 100 mg/dL Near or above optimal: 100 to 129 mg/dL Borderline high: 130 to 159 mg/dL High: 160 to 189 mg/dL Very high: >/= 190 mg/dL Based on AHA/NCEP Guidelines LDl/HDL Ratio 4 0 - 4 12/13/2024 8:[address] [facility] Comment:Unable to calculate. Cholesterol/HDL ratio 6.8(H) 0.0 - 5.0 mg/dL 12/13/2024 8:[address] [facility] VLDL Cholesterol 21.6 5 - 40 mg/dL 12/13/2024 8:[address] [facility] Comment:Unable to calculate Blood Venipuncture / Unknown 12/13/2024 5:12 AM EDT 12/13/2024 5:24 AM EDT us Maria Guadalupe Lopez MD LAB BLOOD ORDERABLES Final Re sult [facility] [address] [phone] * MR Brain Without IV Contrast (12/12/2024 [...] Bond MD us Maria Guadalupe Lopez MD [facility] [place] ORDERABLES Final Resu lt * Strep pneumoniae urine antigen (12/12/2024 11:48 AM EDT) Strep pneumoniae Antigen Presumptive negative for pneumococcal pneumonia - see comment Presumptive negative for pneumococcal pneumonia- see comment 12/12/2024 12:[address] [facility] Urine URINE / Unknown 12/12/2024 1 1:48 AM EDT 12/12/2024 11:[address] [facility] - 12/12/2024 12:09 PM EDT A presumptive negative result suggests no current or recent pneumococcal infection. Infection due to S. pneumoniae cannot be ruled out since the antigen present in the specimen may be below the detection limit of the test. us Maria Guadalupe Lopez MD MICROBIOLOGY - GENERAL ORDERA BLES Final Result Performing Organization Address [facility] Co de Phone Number [facility] [address] [phone] * Legionella antigen, urine (12/12/2024 11:48 AM EDT) Legionella Urine Antigen Presumptive negative for L. pneumophila serogroup 1 antigen in urine- see comment Presumptive negative for L. pneumophila serogroup 1 antigen in urine- see comment 12/12/2024 12:[address] [facility] Urine 12/12/2024 11:4 8 AM EDT 12/12/2024 11:48 AM EDT [facility] - 12/12/2024 12:08 PM EDT Presumptive [...] URINE ORDERABLES Final Result Performing Organization Address [facility] Co de Phone Number [facility] [address] [phone] * Respiratory Panel (12/12/2024 10:27 AM EDT) ADENOVIRUS Not detected Not detected 12/12/2024 11:[address] [facility] CORONAVIRUS 229E Not detected Not detected 12/12/2024 11:[address] [facility] CORONAVIRUS HKU1 Not detected Not detected 12/12/2024 11:[address] [facility] CORONAVIRUS NL63 Not detected Not detected 12/12/2024 11:[address] [facility] CORONAVIRUS OC43 Not detected Not detected 12/12/2024 11:[address] [facility] SARS-COV2/RT-PCR Not Detected Not Detected 12/12/2024 11:[address] [facility] HUMAN METAPNEUMOVIRUS Not detected Not detected 12/12/2024 11:[address] [facility] HUMAN RHINOVIRUS/ENTEROV IRUS Not detected Not detected 12/12/2024 11:[address] [facility] INFLUENZA A Not detected Not detected 12/12/2024 11:[address] [facility] INFLUENZA B Not detected Not detected 12/12/2024 11:[address] [facility] PARAINFLUENZA VIRUS 1 Not detected Not detected 12/12/2024 11:[address] [facility] PARAINFLUENZA VIRUS 2 Not detected Not detected 12/12/2024 11:[address] [facility] PARAINFLUENZA VIRUS 3 Not detected Not detected 12/12/2024 11:[address] [facility] PARAINFLUENZA VIRUS 4 Not detected Not detected 12/12/2024 11:[address] [facility] RESPIRATORY SYNCYTIAL VIRUS Not detected Not detected 12/12/2024 11:[address] [facility] BORDETELLA PARAPERTUSSIS Not detected Not detected 12/12/2024 11:[address] [facility] BORDETELLA PERTUSSIS Not detected Not detected 12/12/2024 11:[address] [facility] CHLAMYDIA PNEUMONIAE Not detected Not detected 12/12/2024 11:[address] [facility] MYCOPLASMA PNEUMONIAE Not detected Not detected 12/12/2024 11:[address] [facility] Nasopharyngeal NASOPHARYNGEAL SWAB / Unknown 12/12/2024 10:27 AM EDT 12/12/2024 10:28 AM EDT [facility] - 12/12/2024 11:25 AM EDT Testing was performed with RT-PCR methodology using the i-Nalysis Respiratory Panel 2.1 which has FDA De [...] decisions. This sample was tested at the [facility]ostics Laboratory using the ZenDocArray Respiratory Panel. It is FDA cleared and has been verified and approved by the [facility] for clinical use on nasopharyngeal swab specimens. The performance of the FilmArray RP has not been established in individuals who received influenza vaccine. Recent administration of a nasal influenza vaccine may cause false positive results for Influenza A and/or Influenza B. Maria Guadalupe Lopez MD MICROBIOLOGY - GENERAL ORDERA BLES Final Result [facility] [address] [phone] * MRSA Screen (12/12/2024 10:27 AM EDT) [facility] MRSA by PCR [facility] MRSA Not Detected by PCR MRSA Not Detected by PCR DEVICE ID9 12/12/2024 11:[address] [facility] Nasal BOTH ANTERIOR NARES / Unknown 12/12/2024 10:27 AM EDT 12/12/2024 10:28 AM EDT Maria Guadalupe Lopez MD MICROBIOLOGY - GENERAL ORDERA BLES Final Result [facility] [address] [phone] * XR chest AP portable (12/12/2024 9:10 [...] may represent pneumonia. Maria Guadalupe Lopez MD IMG DIAGNOSTIC IMAGING ORDERA BLES Final Result * (ABNORMAL) CBC - Hemogram (SJ-BKR) (12/12/2024 3:51 AM EDT) WBC 16.1(H) 4.2 - 9.1 K/ L 12/12/2024 4:[address] [facility] RBC 2.60(L) 4.63 - 6.08 M/ L 12/12/2024 4:[address] [facility] Hemoglobin 8.2(L) 13.7 - 17.5 GM/DL 12/12/2024 4:[address] [facility] Hematocrit 25.8(L) 40.1 - 51.0 % 12/12/2024 4:[address] [facility] MCV 99(H) 79 - 92 fL 12/12/2024 4:[address] [facility] MCH 31.5 25.7 - 32.2 pg 12/12/2024 4:[address] [facility] MCHC 31.8(L) 32.3 - 36.5 GM/DL 12/12/2024 4:[address] [facility] RDW 14.8(H) 11.6 - 14.4 % 12/12/2024 4:[address] [facility] Platelets 168 140 - 375 K/CU MM 12/12/2024 4:[address] [facility] MPV 9.7 9.4 - 12.4 fL 12/12/2024 4:[address] [facility] Blood Venipuncture / Unknown 12/12/2024 3:51 AM EDT 12/12/2024 4:35 AM EDT us Aneudy Fitch PA-C LAB BLOOD ORDERABLES Final Res ult [facility] [address] [phone] * (ABNORMAL) Iron and TIBC (12/12/2024 3:51 AM EDT) Iron 11(L) 65 - 175 ug/dL 12/12/2024 10:[address] [facility] TIBC 183(L) 250 - 435 ug/dL 12/12/2024 10:[address] [facility] % Saturation 6 % 12/12/2024 10:[address] [facility] UIBC 172 12/12/2024 10:[address] [facility] Blood Venipuncture / Unknown 12/12/2024 3:51 AM EDT 12/12/2024 4:38 AM EDT Maria Guadalupe Lopez MD LAB BLOOD ORDERABLES Final Re sult [facility] [address] [phone] * (ABNORMAL) Ferritin (12/12/2024 3:51 AM EDT) Ferritin 474.71(H) 21.81 - 274.66 ng/mL 12/12/2024 10:[address] [facility] Blood Venipuncture / Unknown 12/12/2024 3:51 AM EDT 12/12/2024 4:38 AM EDT Maria Guadalupe Lopez MD LAB BLOOD ORDERABLES Final Re sult Performing Organization Address City/[facility]/ZIP Co de Phone Number [facility] [address] [phone] * Vitamin B12 (12/12/2024 3:51 AM EDT) Vitamin B12 439 213 - 816 pg/mL 12/12/2024 10:[address] [facility] Blood Venipuncture / Unknown 12/12/2024 3:51 AM EDT 12/12/2024 4:38 AM EDT Maria Guadalupe Lopez MD LAB BLOOD ORDERABLES Final Re sult Performing Organization Address City/[facility]/ZIP Co de Phone Number [facility] [address] [phone] from Last 3 Months Insurance [facility] PPO [facility] P[facility] Advance Directives For more information, please contact: [phone] * DNR - Limited Additional Intervention (Latest Code Status on File) Date Activated Date Inactivated Comments 12/11/2024 4:28 PM 12/14/2024 3:42 PM Care Teams Electrical Power Station Technician Relationship Specialty Start Date End Date Eladio Lomas MD [address] [facility] [address] [place] [address] Medical Oncologist Hematology and Oncology 07/08/22 Breanna Crow, PARebelC [address] [facility] [address] [place] [address] Physician Ice Skating Coach Oncology 07/08/22
--- OUTSIDE RECORDS SUMMARY | 2025-01-02 11:47 | XMS_ITS | Encounter Summary ---
Author Organization [facility] Address [address] [id number] Care Team Providers Care Commanding Officer Traffic Division Name Role Phone Per Patient, None Primary Care Provider Unavaila ble Encounter Details Date Type Department Care Team ([facility] st Contact Info) Description 10/08/2021 Lab Requisition [facility] [address] [place] [address] Maurice Power MD [facility] [place] [address] Unspecified lesions of oral mucosa [...] billing purposes only. 10/26/2021 7:22 AM EDT [facility] at 0722 EDT Case Report Surgical Pathology Report Case: [id number] Authorizing Provider: Maurice Power MD Collected: 10/08/2021 Ordering Location: [facility] Received: 10/08/2021 9463 Pathologist: Cindy Flores MD Specimen: [id number] 10/26/2021 7:22 AM EDT [facility] Tissue 10/08/2021 10/08/2021 4:5 9 PM EDT us Maurice Power MD LAB PATHOLOGY ORDERABLES Final Result [facility] [address] [place] [address] documented in this encounter Visit Diagnoses Diagnosis Unspecified lesions of oral mucosa documented in this encounter Care Teams Commanding Officer Traffic Division Relationship Specialty Start Date End Date Per [place], [place] [address] PCP - General 05/02/20 documented as of this encounter
--- OUTSIDE RECORDS SUMMARY | 2025-01-02 11:48 | XMS_ITS | Encounter Summary ---
Author Organization [employer] ([place], [place], [place], [place]) Address [address] [place] [address] Care Team Providers Care Frame Builder Name Role Phone Eladio Lomas MD Unavailable Breanna Crow PA-C Unavailable [phone] Reason for Referral * Consultation (Routine) - Closed Specialty Diagnoses / Procedures Referred By Contac t Referred To Contact Cardiology Diagnoses Palpitations Procedures HOLTER [place]IT[place] Phu[place] الع[place] [address] [place] [address] [address] [place] [address] Phone: tel: fax: [facility] Electrophysiology [address] [place] [phone] Phone: tel: fax: Referral ID Status Reason Start Date Expiration Date Visits Re quested Visits Authorized [id number] Closed 12/14/2024 12/14/2025 1 1 Encounter Details Date Type Department Care Team (Late st Contact Info) Description 12/14/2024 Orders Only [facility] Electrophysiology [address] [place] [phone] Covert, Dorothy Urena CMA Palpitations (Primary [...] Do you speak a language other than Bulgarian at [facility]? No 12/11/2024 Do you want help [...] Description 01/28/2025 9:45 AM EDT Office Visit [facility] Electrophysiology [address] [place] [phone] Phuong Lewis MD [address] [place] [address] [address] [place] [address] Scheduled Orders Name Type Priority Associated Diagnoses Orde r Schedule HOLTER MONITOR [facility] Cardiac Services Routine Palpitations Expected: 12/14/2024, Expires: 12/14/2025 documented as of this encounter Visit Diagnoses Diagnosis Palpitations- Primary documented in this encounter Care Teams Frame Builder Relationship Specialty Start Date End Date Eladio Lomas MD [address] [facility] [address] [place] [address] Medical Oncologist Hematology and Oncology 07/08/22 Breanna Crow PA-C [address] [facility] [address] [place] [address] Physician Director [employer] Oncology 07/08/22 documented as of this encounter
[2025-01-02 12:25] LABS: Alanine Aminotransferase 16 U/L (12-78); Albumin Level 4.0 g/dl (3.5-5.0); Albumin/Globulin Ratio 2.0 (1.1-1.8); Alkaline Phosphatase 75 U/L (38-126); Anion Gap 12.1 mEq/L (5-15); Aspartate Amino Transferase 25 U/L (17-59); Bilirubin,Total 0.2 mg/dl (0.2-1.3); Blood Urea Nitrogen 24 mg/dl (9-20); Calcium 8.7 mg/dl (8.4-10.2); Carbon Dioxide 27 mmol/L (22.0-30.0); Chloride 103 mmol/L (98-107); Creatinine,Serum 0.90 mg/dl (0.66-1.25); Estimated Glomerular Filt Rate 82 ml/min (>60); GFR (African American) 99 ML/MIN (>60); Globulin 2.0 g/dL (1.3-3.2); Glucose 91 mg/dl (74-100); Potassium 5.1 mmoL/L (3.5-5.1); Sodium 137 mmol/L (136-145); Total Protein,Serum 6.0 g/dl (6.3-8.2)
[2025-01-02 13:13] LABS: Hematocrit 35.5 % (42.0-52.0); Hemoglobin 10.8 g/dL (14.1-18.0); Immature Granulocytes % 0.3 %; Mean Corpuscular HGB Conc 30.4 g/dL (31.8-35.4); Mean Corpuscular Hemoglobin 30.9 pg (27.0-31.2); Mean Corpuscular Volume 101.4 fl (80-94); Nucleated Red Blood Cells % 0 %; Platelet Count 140 K/mm3 (142-424); Red Blood Count 3.50 M/mm3 (4.60-6.20); Red Cell Distribution Width-SD 61.4 fL
[2025-01-02 13:27] LABS: White Blood Count 49.3 K/mm3 (4.8-10.8)
[2025-01-02 13:50] LABS: Total Cells Counted 100
[2025-01-02 13:51] LABS: Hypochromasia 1+; Macrocytosis 2+
== END 2025-01-02 11:56 | disposition home or self-care (01) ==
LOC: INF 11:32
PROVIDERS: PCP Family Medicine; Visit Provider Internal Medicine Medical Oncology
DX: C91.12 Chronic lymphocytic leukemia of B-cell type in relapse (principal)
CPT/HCPCS: 36415; 80053; 85007; 85025

== ENCOUNTER 2025-01-23 09:15 | Outpatient (CLI) | payer MEDICARE, SELFPAY ==
--- OUTSIDE RECORDS SUMMARY | 2024-12-11 16:55 | XMS_ITS | Encounter Summary ---
Author Organization [employer] ([place], [place], [place], [place]) Address [address] [place] [address] Care Team Providers Care Education Reviewer Name Role Phone Eladio Lomas MD Unavailable Breanna Crow PA-C Unavailable [phone] Reason for Visit * Auth/Cert (Routine) Specialty Diagnoses / Procedures Referred By Contac t Referred To Contact Diagnoses Weakness WEAKNESS [facility] [address] [facility] [address] [place] [phone] Phone: tel: fax: [facility] [address] [facility] [address] [place] [phone] Phone: tel: fax: Referral ID Status Reason Start Date Expiration Date Visits Re quested Visits Authorized [id number] 1 1 Encounter Details Date Type Department Care Team (Late st Contact Info) Description 12/11/2024 4:55 PM EDT - 12/14/2024 2:40 PM EDT Hospital Encounter [facility] [address] [facility] [address] [place] [phone] Pietro Toure MD [address] [facility] [address] [place] [address] Aneudy Fitch PA-C [address] [place] [address] Maria Guadalupe Lopez MD [address] [facility] [place] [address] Discharge Disposition: Home or Self Care Social History Tobacco Use Types Packs/Day Years Used Date Smoking Tobacco: Former Cigarettes 1 8 0 05/02/1968 - 05/02/1976 Alcohol Use Standard Drinks/Week Comments Not Currently 0 (1 standard drink = 0.6 oz pur e alcohol) Social Connection and Isolation Panel Answer Date Recorded In a typical week, how many times do you talk on the phone with family, friends, or neighbors? More than three times a week 07/08/2022 How often do you get togethe r with friends or relatives? More than three times a week 07/08/2022 How often do you attend chur or uatsdin services? Never 07/08/2022 Do you [...] things needed for daily living? No 07/08/2022 Utilities Answer Date Recorded In the past 12 months, has t he electric, gas, oil, or water company threatened to shut off services in your home? No 12/11/2024 Interpersonal Safety Answer Date Record ed How often does anyone, patrick altamirano family and friends, physically hurt you? Never 12/11/2024 How often does anyone, patrick altamirano family and friends, insult or talk down to you? Never 12/11/2024 How often does anyone, patrick altamirano family and friends, threaten you with harm? Never 12/11/2024 How often does anyone, patrick altamirano family and friends, scream or curse at you? Never 12/11/2024 Housing Stability Answer Date Recorded What is your living situation today? I have a [facility] place to live 12/11/[address] you li ve. Do you have problems with any of the following? None of the above 12/11/2024 Food Insecurity Answer Date Recorded Within the past 12 months, y ou worried that your food would run out before you got money to buy more. Never true 12/11/2024 Within the past 12 months, t he food you bought just didn't last and you didn't have money to get more. Never true 12/11/2024 Transportation Needs Answer Date Record ed In the past 12 months, has l ack of reliable transportation kept you from medical appointments, meetings, work or from getting things needed for daily living? No 12/11/2024 Financial Resource Strain Answer Date R ecorded How hard is it for you to pa y for the very basics like food, housing, medical care, and heating? Would you say it is: Not hard at all 12/11/2024 Employment Answer Date Recorded Do you want help finding or keeping work or a job? I do not need or want help 12/11/2024 Family and Community Support Answer Min e Recorded If for any reason you need h elp with day-to-day activities such as bathing, preparing meals, shopping, managing finances, etc., do you get the help you need? I don't need any help 12/11/2024 Feeling Lonely or Isolated 0 12/11 Educational Attainment Answer Date Ata rded Do you speak a language other than [place]ian at [facility]? No 12/11/2024 Do you want help with school or training? For example, starting or completing job training or getting a high school diploma, GED or equivalent. No 12/11/2024 Physical Activity Answer Date Recorded Number of minutes of exercise per week 0 12/11/2024 Self Management Answer Date Recorded Because of a physical, menta l, or emotional condition, do you have serious difficulty concentrating, remembering, or making decisions? (5 years or older) No 12/11/2024 Because of a physical, menta l, or emotional condition, do you have difficulty doing errands alone such as visiting a doctor's office or shopping? (15 years or older) No 12/11/2024 Substance Use Answer Date Recorded How many times in the past y ear have you used prescription drugs for non-medical reasons? Never 12/11/2024 How many times in the past year have you used [place] legal drugs? Never 12/11/2024 Sex and Gender Information Value Date Recorded Sex Assigned at Male 10/27/2021 8:22 PM CDT Legal Sex Male 8:22 PM CDT Gender Identity Male 10/27/2021 8:22 PM CDT Sexual Orientation Not on file documented as of this encounter Last Filed Vital Signs Vital Sign Reading Time Taken Comments Blood Pressure 133/56 12/14/2024 8:22 AM EDT Pulse 63 12/14/2024 8:22 AM EDT Temperature 36.5 C (97.7 F) 12/14/2024 8:22 AM EDT Respiratory Rate 18 12/14/2024 8:22 AM EDT Oxygen Saturation 95% 12/14/2024 4:14 AM EDT Inhaled Oxygen Concentration - - Weight 63.2 kg (139 lb 5.3 oz) 12/12/2024 8:24 A M EDT Height 167.6 cm (5' 5.98 ) 12/12/2024 8:24 AM ED T Body Mass Index 22.5 12/12/2024 8:24 AM EDT documented in this encounter Discharge Summaries * Maria Guadalupe Lopez MD - 12/14/2024 2:40 PM EDT Patient Name: Corbin Hu : 1950 Date of Admission: 12/11/2024 Date of Discharge: 12/14/2024 2:40 PM Primary Care Physician: No primary care provider on file. Consultations: Treatment Team: Consulting Physician: Alyson Ferguson MD Consulting Physician: Phuong Lewis MD Discharge Diagnoses: Severe Sepsis PNA B/L LE Weakness Acute Small B/L Lacunar Infarcts, concerns for embolic Anemia Valvular Abnormality CLL H/O DVT Reason for Admission: Sepsis, PNA, B/L LE Weakness Hospital Course: 74 YO Male with PMH CLL, DVT, H/O Lumbar Surgery, presented on 12/11 for evaluation and management of lower extremity weakness. Pt is currently receiving cancer treatments with Dr. Elaido Lomas and was recently started on Acalabrutinib on November 22, 2024. Pt initially was started on October 29 however due to onset of dizziness patient's medication was held. Pt also had previous history of CLL for whichhe received chemotherapy in 2017, pt reportedly had history of neutropenic fever and pneumonia at that time. Patient states 3 days prior to admission patient had a fever of 103 and was acutely disoriented. Pt's symptoms somewhat resolved after Tylenol administration. However on morning of admissionhe began to have symptoms of confusion and became febrile again. [facility] ED where patient's CT head read abnormally and pt's chest CT identified likely pneumonia.Due to pt's current history and imaging pt was subsequently transferred to [facility] for further evaluation by MRI. Pt did meet severe sepsis due to PNA with Fever, WBC 16, acute metabolic encephalopathy with noted confusion which is not his baseline. Pt was started on Ceftriaxone and Dox. Workup showed Urine strep and legionella - presumed negative; Resp PCR panel- Neg. Sepsis and encephalopathy did resolve. Hereported he felt well on day of DC. On DC pt will continue Cefdinir and Dox with probiotic for 4 more days. Pt had reported of b/l weakness as well as pain radiating down his left buttock and LE numbness. Further workup showed MRI C-Spine (12/12)- Multilevel degenerative disc disease and spondylosis as described. Mild central canal stenosis at C4-5 and C5-6. MRI T-Spine (12/12)- Multilevel mild degenerative disc disease with multiple disc bulges. No focal disc protrusion or significant central canal stenosis. MRI L-Spine (12/12)- Multilevel degenerative disc disease and spondylosis with bilateral neuralforaminal narrowing. Pt was evaluated by neurosurgery and no severe nerve compression in the cervical, thoracic or lumbar spine that would explain his weakness. Pt was started on Gabapentin 300mg BIDbut made him sleepy and was continued on 300mg every night and did well with this with improvement of pain and also was doing better with ambulation. MRI Brain was showed small b/l lacunar infarcts. Neurosurgery did want to get MRI Brain stealth as noted presence of diffusion restriction and layering in the left occipital horn, could be concerningfor ventriculitis Pt declined as required contrast although was explained this was not iodinated contrast he still declined. Neuro evaluated and there is embolic appearance of strokes. Other workup showed B/L Carotid US R and L: < 50% (non flow restricting) stenosis of the internal carotid artery. ECA >50% Stenosis. Normal antegrade vertebral flow. No evidence of subclavian steal. TTE w/ EF 60% +/- 5%. Indeterminate diastolic function. Moderate to severe (3+) mitral regurgitation. Moderate aortic stenosis. Moderate aortic regurgitation. Moderate aortic regurgitation. Negative bubble study for interatrial shunt.EP was consulted and reviewed telemetry and no Afib events on telemetry and pt was Dc'ed with 30 day event monitor. Pt was started on Asp. No indication to start statin (Cholest-81 Trig-108 HDL- 12 LDL-47) and may make LE weakness worse. Pt should have f/u with Neurology in 1 month. Pt will f/u with EP in 6 weeks. Pt should also have f/u with Cardio for valvular abnormality which he reports he isaware of. Pt has noted anemia iron studies consistent with ELIZABETH (Iron-11 TIBC-183 Ferritin- 474 %Sat-6) and wasgiven IV Iron and on DC will continue with PO iron. Discharge Medications: Your medication list START taking these medications Instructions Comments Quantity Refills aspirin 81 MG EC tablet Take 1 tablet (81 mg total) by mouth daily for 30 days. 30 tablet 1 cefdinir 300 mg capsule Commonly known as: OMNICEF Take 1 capsule (300 mg total) by mouth 2 (two) times daily for 4 days. 8 capsule 0 doxycycline 100 MG capsule Commonly known as: VIBRAMYCIN Take 1 capsule (100 mg total) by mouth every 12 (twelve) hours for 5 days Next dose is this evening. 10 capsule 0 ferrous gluconate 324 mg (37.5 mg iron) Tab Take 1 tablet (324 mg total) by mouth daily for 30 days. 30 tablet 2 gabapentin 300 MG capsule Commonly known as: NEURONTIN Take 1 capsule (300 mg total) by mouth nightly for 30 days. Max Daily Amount: 300 mg 30 capsule 0 Saccharomyces boulardii 250 mg capsule Commonly known as: FLORASTOR Take 1 capsule (250 mg total) by mouth 2 (two) times daily for 5 days Continue probiotic while on the antibiotics. 10 capsule 0 CHANGE how you take these medications Instructions Comments Quantity Refills acalabrutinib 100 mg tablet Commonly known as: CALQUENCE What changed: additional instructions Take 1 tablet (100 mg total) by mouth every 12 (twelve) hours Restart based on recommendations per your Oncologist. 0 CONTINUE taking these medications Instructions Comments Quantity Refills fluticasone propionate 50 mcg/actuation nasal spray Commonly known as: FLONASE Administer 2 sprays into each nostril daily as needed for rhinitis. 0 levocetirizine 5 MG tablet Commonly known as: XYZAL Take 1 tablet (5 mg total) by mouth nightly. 0 multivitamin capsule Take 1 capsule by mouth daily. 0 predniSONE 10 MG tablet Commonly known as: DELTASONE Take 1 tablet (10 mg total) by mouth daily with breakfast. 0 valACYclovir 1000 MG tablet Commonly known as: VALTREX Take 1 tablet (1,000 mg total) by mouth daily. 0 Where to Get Your Medications [id number] [place], [place] - [address] [facility] & [address] [place] [address] aspirin 81 MG EC tablet cefdinir 300 mg capsule doxycycline 100 MG capsule ferrous gluconate 324 mg (37.5 mg iron) Tab gabapentin 300 MG capsule Saccharomyces boulardii 250 mg capsule Information about where to get these medications is not yet available Ask your nurse or doctor about these medications acalabrutinib 100 mg tablet Physical Exam General: [Alert and oriented x3, NAD] Neurologic: [Awake, alert, oriented, no focal deficits]. Eye: [PERRL, normal conjuctiva]. HENT: [Normocephalic, no scleral icterus]. Neck: [Supple, no JVD]. Lungs: [Clear to auscultation, on RA]. Heart: [Regular rate, regular rhythm, + systolic murmur, no gallop or edema]. Abdomen: [Soft, non-tender, non-distended, normal bowel sounds, no masses]. Musculoskeletal: [Normal range of motion]. Skin: [Skin is warm, dry] Psychiatric: [Cooperative, appropriate mood and affect]. Discharge Instructions Discharge Diet: Regular Discharge Activity: As tolerated Discharge Follow UP: Contact information for follow-up Matilda Arita APRN Specialty: Neurology, Nurse Practitioner [address] [phone] Next Steps: Schedule an appointment as soon as possible for a visit in 4 week(s) Instructions: Hospital follow up for stroke Primary Care Provider Next Steps: Follow up in 1 week(s) Phuong Lewis MD Specialty: Cardiology, Respiratory Therapy, Electrophysiology, Electrophysiology - Cardiac [address] [facility] [address] [facility] [address] Next Steps: Follow up in 6 week(s) Time Spent: 35 min. Electronically signed by Maria Guadalupe Lopez MD, 12/15/24, 3:00 PM EDT documented in this encounter Medications at Time of Discharge acalabrutinib (CALQUENCE) 100 mg tablet Take 1 tablet (100 mg total) by mouth every 12 (twelve) hours Restart based on recommendations per your Oncologist. 12/14/2024 fluticasone propionate (FLONASE) 50 mcg/actuation nasal spray Administer 2 sprays into each nostril daily as needed for rhinitis. levocetirizine (XYZAL) 5 MG tablet Take 1 tablet (5 mg total) by mouth nightly. multivitamin capsule Take 1 capsule by mouth daily. predniSONE (DELTASONE) 10 MG tablet Take 1 tablet (10 mg total) by mouth daily with breakfast. valACYclovir (VALTREX) 1000 MG tablet Take 1 tablet (1,000 mg total) by mouth daily. aspirin 81 MG EC tablet Take 1 tablet (81 mg total) by mouth daily for 30 days. 30 tablet 1 12/15/2024 01/15/20 25 cefdinir (OMNICEF) 300 mg capsule Take 1 capsule (300 mg total) by mouth 2 (two) times daily for 4 days. 8 capsule 12/15/2024 12/20/19 25 doxycycline (VIBRAMYCIN) 100 MG capsule Take 1 capsule (100 mg total) by mouth every 12 (twelve) hours for 5 days Next dose is this evening. 10 capsule 12/14/2024 12/20/19 25 ferrous gluconate 324 mg (37.5 mg iron) tab Take 1 tablet (324 mg total) by mouth daily for 30 days. 30 tablet 2 12/14/2024 01/14/20 25 gabapentin (NEURONTIN) 300 MG capsule Take 1 capsule (300 mg total) by mouth nightly for 30 days. Max Daily Amount: 300 mg 30 capsule 12/14/2024 01/14/20 25 Saccharomyces boulardii (FLORASTOR) 250 mg capsule Take 1 capsule (250 mg total) by mouth 2 (two) times daily for 5 days Continue probiotic while on the antibiotics. 10 capsule 12/15/2024 12/21/19 25 documented as of this encounter Progress Notes * Phuong Lewis MD - 12/14/2024 2:40 PM EDT Freight Agent: Chief Complaint: No chief complaint on file. Subjective: No cardiac complaints Social History: Social History Socioeconomic History Marital status: Spouse name: Not on file Number of children: Not on file Years of education: Not on file Highest education level: Not on file Occupational History Not on file Tobacco Use Smoking status: Former Current packs/day: 0.00 Average packs/day: 1 pack/day for 8.0 years (8.0 ttl pk-yrs) Types: Cigarettes Start date: 05/02/1968 Quit date: 05/02/1976 Years since quittin.6 Smokeless tobacco: Not on file Vaping Use Vaping status: Never Used Substance and Sexual Activity Alcohol use: Not Currently Drug use: Never Sexual activity: Not on file Other Topics Concern Not on file Social History Narrative Not on file Social Drivers of Health Food Insecurity: No Food Insecurity (12/11/2024) Food Insecurity Food run out past 12 months: Never true Food did not last past 12 months: Never true Transportation: No Transportation Needs (12/11/2024) Transportation Needs Transportation unreliable past 12 months: No Living Arrangements: Spouse/significant other Type of Residence: Private residence (Multi level home with 12 steps; 3 steps to front door) Family History: No family history on file. Medications: No current facility-administered medications on file prior to encounter. Current Outpatient Medications on File Prior to Encounter Medication Sig Dispense Refill fluticasone propionate (FLONASE) 50 mcg/actuation nasal spray Administer 2 sprays into each nostrildaily as needed for rhinitis. levocetirizine (XYZAL) 5 MG tablet Take 1 tablet (5 mg total) by mouth nightly. multivitamin capsule Take 1 capsule by mouth daily. predniSONE (DELTASONE) 10 MG tablet Take 1 tablet (10 mg total) by mouth daily with breakfast. valACYclovir (VALTREX) 1000 MG tablet Take 1 tablet (1,000 mg total) by mouth daily. [DISCONTINUED] acalabrutinib (CALQUENCE) 100 mg tablet Take 1 tablet (100 mg total) by mouth every 12 (twelve) hours. Review of Systems: Pertinent items are noted in HPI. Physical Exam: Physical Exam Constitutional: General: He is not in acute distress. Appearance: Normal appearance. He is not toxic-appearing or diaphoretic. HENT: Head: Normocephalic and atraumatic. Nose: Nose normal. Mouth/Throat: Mouth: Mucous membranes are moist. Pharynx: Oropharynx is clear. Eyes: Extraocular Movements: Extraocular movements intact. Conjunctiva/sclera: Conjunctivae normal. Pupils: Pupils are equal, round, and reactive to light. Cardiovascular: Rate and Rhythm: Normal rate and regular rhythm. Heart sounds: Normal heart sounds. No murmur heard. No gallop. Pulmonary: Effort: Pulmonary effort is normal. No respiratory distress. Breath sounds: Normal breath sounds. Abdominal: General: Abdomen is flat. Bowel sounds are normal. There is no distension. Palpations: Abdomen is soft. Tenderness: There is no abdominal tenderness. There is no guarding. Musculoskeletal: General: No swelling. Normal range of motion. Cervical back: Normal range of motion and neck supple. Left lower leg: No edema. Skin: General: Skin is warm and dry. Coloration: Skin is not pale. Findings: No erythema. Neurological: General: No focal deficit present. Mental Status: He is alert and oriented to person, place, and time. Cranial Nerves: No cranial nerve deficit. Motor: No weakness. Psychiatric: Mood and Affect: Mood normal. Behavior: Behavior normal. Judgment: Judgment normal. Vitals: Hemodynamic parameters reviewed for last 24 hours. Blood pressure 133/56, pulse 63, temperature 97.7 ??F (36.5 ??C), temperature source Oral, resp. rate 18, height 1.676 m (5' 5.98 ), weight 63.2 kg (139 lb 5.3 oz), SpO2 95%. Impression and Plan: IMPRESSION: Cardio embolic stroke as per neurology CLL Started new chemotherapy in October - acalabruitinib. Reports worsening weakness since initiation. Pneumonia Hyponatremia PLAN: 12/14/2024 Telemetry reviewed no atrial fibrillation noted will place a 30-day event monitor patient has agreed to it, I will see him back in 6 weeks for follow-up. 12/13/2024 Telemetry reviewed, showed no AF, recommend a 30 day event monitor upon DC. ECHO ordered and is pending. Signed: Phuong Lewis MD 12/14/2024 7:11 PM * Mora Munguia RN - 12/14/2024 2:15 PM EDT Pneumonia Zone Tool provided to patient and/or family at bedside using the Teach-Back, Verbalizes Understanding. * María Elena Bunn, PT - 12/14/2024 11:47 AM EDT Images from the original note were not included. Inpatient Physical Therapy Initial Evaluation Patient Name: Corbin Hu Date of : 1950 Date of Evaluation: 12/14/24 In Time 0846 Out Time 0859 Session Duration 13 minutes Time spent for nursing collaboration, chart and systems review, and clinical reasoning. 10 minutes Total Time 23 minutes Pt is a 74 y.o. male admitted on 12/11/2024 with Weakness [R53.1]. Past Medical History: Diagnosis Date Anxiety GERD (gastroesophageal reflux disease) Lymphocytic leukemia (HCC) Unspecified skin changes Past Surgical History: Procedure Laterality Date BACK SURGERY 01/01/2022 Lumbar laminectomy, right side crossing over to the left side,decompression cauda equina and neuralellements foramenotmy , neural lysis, facetectomy, L4-5 General Visit type: Initial Evaluation Approved by: Nursing Patient Disposition Upon Entry: Patient in bedside chair, Call Light/Pull Cord in reach, All needs met and within reach, Nursing aware/notified Patient Verified By: Name and Date of Precautions Weight-Bearing Status: No Restrictions Precautions: Fall risk Isolation Precautions: Standard Subjective Subjective: Patient agreeable to physical therapy evaluation and treatment. Pain No - Patient not reporting pain at this time Cognition Overall cognitive status: Patient is awake and alert, attending to directions appropriately, demonstrating good problem solving skills, and aware of any deficits or impairments, if present. Home Living Lives with: Spouse, Daughter Home Type: House Home Layout: Two level Stairs to enter: 2 step(s) Stairs inside home: 12 step(s), 1 flight Home Equipment: Rolling walker, Single point cane, Manual wheelchair Functional Mobility PLOF: Patient reports being complete independent with all functional mobility prior to onset. Activities of Daily Living PLOF: Patient reports being complete independent with all ADL's prior toonset. Fall History: No, patient denies any falls over the last 6 months. Objective Vitals Vitals were stable throughout therapy Basic Strength Assessment Bilateral Lower Extremity Strength: LLE RLE Hip Flexion 4/5 3/5 Hip Abduction 4+/5 4-/5 Hip Adduction 4+/5 4-/5 Knee Flexion 4+/5 4-/5 Knee Extension 4+/5 4-/5 Range of Motion Assessment WFL for all extremities Sensation Impaired. N/T inn RLE Coordination Coordination is intact and within normal limits. Functional Mobility Bed Mobility Patient up in bedside chair, therefore, bed mobility not assessed this date. Transfers Sit to Stand: stand by assist Stand to Sit: stand by assist Gait Gait Assistance: stand by assist Assistive Device: Gait Belt Distance: 40' No gait deviation noted Stair Management Patient declined to attempt this date. Wheelchair Mobility Not assessed, patient ambulatory. AM-PAC Basic Mobility Inpatient Short Form How much difficulty does the patient currently have: Turning over in bed (including adjusting bedclothes, sheets, and blankets)? (2) A lot (can do the activity without assistive devices or help from another person, but requires A LOT more effort and/ortime) Sitting down on and standing up from a chair with arms (e.g., wheelchair, bedside commode, etc.)? (3) A little (can do the activity without assistive devices or help from another person, but requiresA LITTLE more time and effort) Moving from lying on back to sitting on side of bed? (2) A lot (can do the activity without assistive devices or help from another person, but requires A LOT more effort and/or time) How much help from another person does the patient currently need: Moving to and from a bed to a chair (including a wheelchair)? (3) A little (Minimal/Contact guard/Supervision/Setup) Need to walk in hospital room? (3) A little (Minimal/Contact guard/Supervision/Setup) Climbing 3-5 steps with a railing? (3) A little (Minimal/Contact guard/Supervision/Setup) Score Raw score=15 t-Scale score=39.45 Standard error=2.93 CMS 0-100%=57.70% MDC=4.72 A raw score of >= 16 is significantly associated with increased odds of discharge to home in addition to consideration made for the patient's cognition and social determinants of health. Balance Static/dynamic sitting and static/dynamic standing balance grades Balance Grade Sitting Static Good - patient able to maintain balance without handhold support, limited postural sway Sitting Dynamic Good - patient accepts moderate challenge; able to maintain balance while picking object off floor Standing Static Good - patient able to maintain balance without handhold support, limited postural sway Standing Dynamic Fair - patient accepts minimal challenge; able to maintain balance while turning head/trunk Activity Tolerance Patient limited with activity/intervention due to weakness Treatment Pt was in the bathroom upon PT entry. Pt was willing to participate in PT eval with moderate encouragement. Pt ambulated 40' within his room with stand by assist and no AD needed. Pt did have one balance check that he was able to salf correct. Pt will continue to benefit from skilled therapy services to improve strength and functional mobility. Assessment At baseline, patient was independent with ADLs, was independent with functional mobility. Patient presenting with decreased activity tolerance, generalized weakness with functional activities, impaired dynamic balance with transfers, impaired dynamic balance with ambulation, and fatigue with physical exertion. Because of this, patient would have difficulty with independently performing bed mobility, transferring, ambulating on level surfaces, ambulating on uneven surfaces, ambulating household distances, ambulating community distances, negotiating stairs, and picking objects up off the floor.These functional limitations put the patient at an increased risk for loss of independence with functional mobility and activities of daily living. Patient would benefit from skilled physical therapyservices during length of stay for strengthening, balance training to decrease risk of falling, endurance training to improve activity tolerance, stair training, gait training, transfer training, and progression of mobility. Problems: Decreased core stability, Decreased functional mobility, Decreased gait tolerance, Decreased strength, Decreased activity tolerance, Impaired dynamic balance, Gait impairment Rehab potential: Good for stated goals Plan Treatment Plan: Therapeutic Exercise, Therapeutic Activity, Gait Training, Neuromuscular Re-education, Transfer Training, Balance Training, Stair Training, Strengthening, Home Exercise Program, ROM PT Frequency/Duration: 3x/week for 14 days Recommendations Discharge recommendations: Discharge home/prior living situation with no further follow-up. Patientat baseline level of functioning. DME recommendations: Patient has no DME/adaptive equipment discharge needs at this time. Goals [id number]: By the target date, patient will perform [id number] with modified independence, utilizing no assistive device, to improve independence with bed mobility. [id number]: By the target date, patient will perform sit to stand with modified independence and no assistive device to improve independence with functional mobility. Transfer: By the target date, patient will perform stand-pivot transfer to a bedside commode, recliner chair, or wheelchair with modified independence and utilizing no assistive device, demonstratingability to safely transfer while in hospital setting to improve independence with functional mobility. Gait: Patient will ambulate 150' with modified independence and utilizing rolling walker in order to increase independence with ambulation Stairs: By the target date, patient will negotiate 12 step(s), with a step-to pattern, utilizing bilateral railing and modified independence, to demonstrate ability to safely negotiate stairs at home. Target Date: 12/14/2024 Goals were discussed with patient Education Patient educated on safety, use of call button, role of physical therapy, and plan of care and following, they were able to verbalize understanding. No further questions or concerns stated. Interdisciplinary Communication Following treatment, therapist communicated with nursing by completing communication whiteboard in room. Patient Disposition Upon Leaving Patient in bedside chair, Call Light/Pull Cord in reach, All needs met and within reach, Nursing aware/notified, HOB >30 degrees If this patient discharges prior to next therapy session, this note serves as the patient's discharge summary. Electronically signed by María Elena Bunn, PT - 12/14/24 - 11:58 AM EDT PT Evaluation Completed * Nabeel Horn, OTR/L - 12/14/2024 11:15 AM EDT Images from the original note were not included. Inpatient Occupational Therapy Treatment Note Patient Name: Corbin Hu Date of : 1950 Date of Treatment: 12/14/24 Start Time: 1114 Stop Time: 113 Session Duration: 23 minutes This patient is a 74 y.o. male admitted on 12/11/2024 with Weakness [R53.1]. Past Medical History: Diagnosis Date Anxiety GERD (gastroesophageal reflux disease) Lymphocytic leukemia (HCC) Unspecified skin changes Past Surgical History: Procedure Laterality Date BACK SURGERY 01/01/2022 Lumbar laminectomy, right side crossing over to the left side,decompression cauda equina and neuralellements foramenotmy , neural lysis, facetectomy, L4-5 General Visit type: Treatment Approved by: Nurse Velazco Patient disposition upon entry: Patient verified by name, Sitting in bedside chair, Visitor/family present, All needs met and within reach, Feet lowered Precautions Weightbearing status: No restrictions Precautions: Fall risk Isolation precautions: Neutropenic LDA/Brace/Protective equipment: Lines, drains, and airways: peripheral IV, telemetry Subjective Subjective: Pt agreeable Pain No-patient has no complaints of pain Cognition Cognition: Arousal/alertness: Appropriate response to stimuli Following commands: Follows all commands and directions without difficulty Objective Vitals Vital signs stable throughout, no adverse reaction during activity Bed Mobility Not assessed: patient up in chair upon arrival Transfers Sit to stand:Standby assist ADLs Pt declined participation with ADL tasks. Balance Static sitting balance:Good: Patient able to maintain balance without handheld support; limited postural sway Dynamic sitting balance:Good: Patient accepts moderate challenge; able to maintain balance while picking object off the floor Static standing balance:Good: Patient able to maintain balance without handheld support; limited postural sway Activity Tolerance Patient tolerated activity/intervention well with no complaints or adverse events. Therapeutic Exercise UE therapeutic exercise AROM, Scapular retractions, Scapular protraction, Elbow flexion, Elbow extension , Green theraband,All exercises performed for 1 set of 10 reps Treatment Pt was seated in bedside chair. was present in room and reported planned d/c for today. Pt andwife expressed no concerns about d/c home and reported no equipment needs. Pt completed sit to stand with SBA, but reported, I don't really want to do anything. Pt was agreeable to HEP. Pt and were educated on BUE HEP with green theraband. Pt required increased cuing for technique for muscle isolation. Provided pt/ with HEP handout. Assessment Assessment Patient demonstrated maintained performance during this treatment session. Patient continues to present with decreased endurance, decreased balance, decreased safety awareness. These deficits currently impact the patient's ability to perform ADLs and functional mobility, putting them at an increased risk for increased falls, decreased quality of life, further functional decline, increased caregiver burden. Patient will benefit from continued OT services to address the aforementioned functional deficits. Plan Recommendations Discharge recommendations: Discharge home/prior living situation. Patient would benefit from continued therapy services. DME recommendations: Patient has no adaptive/DME needs for discharge at this time. Treatment Plan: Continue OT POC OT Frequency/Duration: 3x/week for 14 days Goals Grooming: face washing, standing with supervision Lower body dressing: donning and doffing lower body clothing with modified independence. Toileting: toileting with modified independence. Functional transfers: stand pivot transfer with modified independence. Target Date: 12/27/2024 Goals were discussed with patient Progress towards goals: progressing Education Patient educated on safety, exercises and following, they were able to verbalize understanding. Patient Disposition Upon Leaving Patient Disposition: Sitting in bedside chair, Visitor/family present, All needs met and within reach, Feet lowered, Nursing at bedside If this patient discharges prior to next therapy session, this note serves as the patient's discharge summary. Electronically signed by SHANITA Gillespie - 12/14/2024 - 1:12 PM EDT * FELIZ Benitez - 12/14/2024 10:52 AM EDTSummary: Final DCP Note Care Coordination Final Discharge Plan DC Readmit Risk: 14% BMAT at DC: 3/ Patient declined the need for services from on 12/13. On this date patient MR for discharge. Patient will return home with spouse. Final Discharge Plan PCP referral provided? (P) No Community Referral Discussed with patient: (P) No Patient Appealing Discharge: (P) No Does the patient have ability to fill and recive their discharge medications? (P) Yes Patient returning to prior living situation: (P) Yes Support Systems: (P) Spouse/significant other, Family members Discharge Disposition: (P) Home Services Arranged for Discharge: Contact information for follow-up Matilda Arita APRN Specialty: Neurology, Nurse Practitioner [address] [place] [id number] Next Steps: Schedule an appointment as soon as possible for a visit in 4 week(s) Instructions: Hospital follow up for stroke Transporation Provider: (P) Family/Spouse Transporation Contact Name: Transportation Provider Phone: Date of supervisor shipping room: (P) 12/14/24 Time of supervisor shipping room: 12/14/24 1052 Final Discharge Plan PCP referral provided? No Community Referral Discussed with Patient? No Patient appealing discharge? No Does the patient have the ability to fill and receive their discharge medications? Yes Patient returning to prior living situation? Yes Support Systems Spouse/significant other;Family members Discharge Disposition Home Transportation Provider Family/Spouse Date of supervisor shipping room 12/14/24 FELIZ Benitez * Alyson Ferguson MD - 12/14/2024 9:29 AM EDT Subjective Pt states he is doing better today, legs are stronger; he is still confused at times. in room, states she hopes to take him home over the weekend. Review of Systems Neurological: Positive for weakness. All other systems reviewed and are negative. Objective Last Recorded Vitals Blood pressure 133/73, pulse 62, temperature 96.8 ??F (36 ??C), temperature source Oral, resp. rate17, height 1.676 m (5' 5.98 ), weight 63.2 kg (139 lb 5.3 oz), SpO2 95%. Physical Exam Vitals and nursing note reviewed. Constitutional: Comments: Awake and alert; somewhat confused at times. Speech is fluent with no dysarthria Eyes: Extraocular Movements: Extraocular movements intact. Pupils: Pupils are equal, round, and reactive to light. Cardiovascular: Rate and Rhythm: Normal rate and regular rhythm. Pulmonary: Effort: Pulmonary effort is normal. Neurological: Comments: CN II-VII intact Motor strength is 5/5 in BUE; 4/5 in BLE- chronic right leg weakness per patient, left leg weaknessis new Sensation diminished in RLE, chronic; otherwise intact He has been able to ambulate with a walker Labs: Results for orders placed or performed during the hospital encounter of 12/11/24 (from the past 24 hours) Sedimentation rate Status: Normal Collection Time: 12/13/24 6:09 PM Result Value Ref Range Sed Rate 10 0 - 20 mm/HR CBC with automated diff Status: Abnormal Collection Time: 12/14/24 5:35 AM Result Value Ref Range WBC 22.2 (H) 4.2 - 9.1 K/??L RBC 2.63 (L) 4.63 - 6.08 M/??L Hemoglobin 8.2 (L) 13.7 - 17.5 GM/DL Hematocrit 25.9 (L) 40.1 - 51.0 % MCV 99 (H) 79 - 92 fL MCH 31.2 25.7 - 32.2 pg MCHC 31.7 (L) 32.3 - 36.5 GM/DL RDW 15.0 (H) 11.6 - 14.4 % Platelets 177 140 - 375 K/CU MM MPV 9.9 9.4 - 12.4 fL NRBC Absolute <0.01 0 - 0.012 K/ul Basic Metabolic Panel Status: Abnormal Collection Time: 12/14/24 5:35 AM Result Value Ref Range Sodium 142 136 - 145 meq/L Potassium 3.9 3.4 - 5.1 meq/L CO2 25 22 - 29 meq/L Chloride 108 98 - 112 meq/L Glucose 120 (H) 82 - 115 mg/dL BUN 14.4 8.4 - 25.7 mg/dL Creatinine 0.68 (L) 0.72 - 1.25 mg/dL BUN/Creatinine 21 (H) 8 - 20 Calcium 7.7 (L) 8.4 - 10.2 mg/dL Anion Gap 13 (H) 4 - 12 eGFR (mL/min/1.73m2) 96 >=60 mL/min/1.73m2 Osmolality Calc 284.9 mOsm/kg Manual Differential Status: Abnormal Collection Time: 12/14/24 5:35 AM Result Value Ref Range Total Counted 100 % Neutros (manual) 13 (L) 50 - 65 % % Lymphs (manual) 86 (H) 24 - 44 % % Monos (manual) 1 (L) 4 - 5 % RBC Morphology abnormal (A) Normal Platelet Estimate Adequate Adequate Anisocytosis 1+ Hypochromia 1+ Polychromasia 1+ Smudge Cells Present Macrocytes 1+ ANC# 2.89 K/??L ECHO COMPLETE (DOPPLER / COLOR) W OR WO CONTRAST TRANSTHORACIC ECHOCARDIOGRAPHY REPORT Demographics Patient Name: SANDIE KOROMA : 1950 Age: 74 year(s) Corporate ID Number: [id number] Gender Male 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 Patient Status: Routine IP Study Location: PortableTechnical Quality: Adequate visualization History/Tech Notes: Indication: other general signs and symptoms R68.89 Impression: ######################################## Normal sized left ventricle. Normal left ventricular wall thickness. Visually estimated ejection fraction 60% +/- 5%. Abnormal systolic strain pattern. Indeterminate diastolic function. Structurally normal mitral valve. Moderate to severe (3+) mitral regurgitation. PISA ERO: 0.3 cm2. Calcified aortic valve leaflets. Moderate aortic stenosis. Peak/Mean P mmHg/22 mmHg. Moderate aortic regurgitation. Moderate aortic regurgitation. Severely abnormal left atrial volume index 65 ml/m^2. Negative bubble study for interatrial shunt. ######################################## Measurements Summary: LVEDd: 4.91 cm LVESd: 3.23 cm IVSEd: 0.75 cm AO Root:2.99 cm LVPWd: 1.27 cm Contractility Score Normal Left Ventricular contractility was noted. LV regional wall motion: (0-Not visualized 1-Normal 2-Hypokinesis 3-Akinesis 4-Dyskinesis 5-Aneurysm) Left Ventricle Peak E-wave: 1.63 Peak A-wave: 1.15 m/s E/A ratio: 1.42 m/s Volume [id number] LV length: 8.99 cm ml Volume .92 ml LVOT diameter: 2.03 cm Normal sized left ventricle. Normal left ventricular wall thickness. Visually estimated ejection fraction 60% +/- 5%. Abnormal systolic strain pattern. Indeterminate diastolic function. No left ventricular masses or thrombi. Right Ventricle Diastolic dimension: 4.15 RV systolic pressure: 43.96 mmHg cm Normal sized right ventricle. Normal TAPSE c/w normal right ventricular function Left Atrium LA dimension: 4.6 cm LA volume:110.47 ml LA/Aorta: 1.54 Severely abnormal left atrial volume index 65 ml/m^2. Negative bubble study for interatrial shunt. Intact atrial septum. No atrial mass or thrombus. Right Atrium Normal sized right atrium. Negative bubble study for interatrial shunt. Intact atrial septum. No atrial mass or thrombus. Mitral Valve Deceleration time: 301.81 MR velocity: 5.7 msec m/s MR VTI: 186.64 cm Structurally normal mitral valve. Moderate to severe (3+) mitral regurgitation. PISA ERO: 0.3 cm2. No mitral stenosis. No masses or vegetations seen. Aortic Valve AI P1/2t: Area continuity: Peak velocity: 3.57 m/s 305.78 msec 2.06 cm^2 Peak gradient: 50.99 mmHg AV VTI: 73.29 Mean velocity: 2.16 Mean gradient: 22.41 mmHg cm m/s Deceleration time: 1054.4 LVOT VTI: 46.74 msec cm Three cusped aortic valve Calcified aortic valve leaflets. Moderate aortic regurgitation. Moderate aortic stenosis. Peak/Mean P mmHg/22 mmHg. No masses or vegetations seen. Tricuspid Valve TR velocity: 3 m/s TR gradient: 35.20185 mmHg Estimated RAP: 8 mmHg RVSP: 43.96 mmHg Structurally normal tricuspid valve. Mild (1+) tricuspid regurgitation. Mild pulmonary hypertension. No tricuspid stenosis. No masses or vegetations seen. Pulmonic Valve Acceleration time: 129.4 msec PASP: 43.96 mmHg Structurally normal pulmonic valve. Trace pulmonic regurgitation. No pulmonic stenosis. No masses or vegetations seen. Great Vessels Aorta Aortic Root: 2.99 cm LVOT Diameter: 2.03 cm Visualized thoracic aorta is normal. Normal aortic root. No evidence of dissection. IVC with no inspiratory collapse. Borderline elevated central venous pressure (8-12mmHg). Pericardium / Pleura Trace pericardial effusion. US CAROTID BLOOD FLOW BILATERAL Vascular Carotid Procedure Demographics Patient Name SANDIE SMITH Age 74 [place] Patient Number [id number] Gender Male Race Ethnicity Corporate ID [id number] Height 65 Date of 1950 Weight 139 Accession Number [id number] BSA 1.69 m^2 Room Number 405 BMI 23.13 kg/m^2 Referring MARIA GUADALUPE LOPEZ MD Interpreting BEBETO WALTER MD Physician Physician Senior Linux Unix Engineer Rosy Guido, RVT Procedure Type of Study: Cerebral: Carotid, US CAROTID BLOOD FLOW BILATERAL. Impressions Summary INDICATION: R09.89 Other specified symptoms and signs involving the circulatory and respiratory systems. Unable to obtain left BP due to chemo port in place in left arm. ######################################### RIGHT: < 50% (non flow restricting) stenosis of the internal carotid artery. ECA >50% Stenosis. Normal antegrade vertebral flow. No evidence of subclavian steal. LEFT: < 50% (non flow restricting) stenosis of the internal carotid artery. Normal antegrade vertebral flow. No evidence of subclavian steal. ######################################### Blood Pressure:Right arm 122/63 mmHg. Patient Status:Inpatient . Study Location:Portable. Technical Quality:Good visualization. Velocities are measured in cm/s ; Diameters are measured in mm Carotid Right Measurements + +------+-----+-----+---------+ + !Location !PSV !EDV !Angle!%Stenosis!Tortuosity! + +------+-----+-----+---------+ + !Prox CCA !123.71!17.47! ! ! ! + +------+-----+-----+---------+ + !Mid CCA !122.21!9.99 ! ! ! ! + +------+-----+-----+---------+ + !Dist CCA !90.79 !12.23! ! ! ! + +------+-----+-----+---------+ + !Prox ICA !122.98!25.65! ! ! ! + +------+-----+-----+---------+ + !Dist ICA !134.52!28.19! ! ! ! + +------+-----+-----+---------+ + !Prox ECA !208.14! ! ! ! ! + +------+-----+-----+---------+ + !Mid Vertebral !94.27 ! ! ! ! ! + +------+-----+-----+---------+ + !Mid Subclavian !137.74! ! ! ! ! + +------+-----+-----+---------+ + - There is antegrade vertebral flow noted on the right side. - Additional Measurements:ICAPSV/CCAPSV 1.35. Carotid Left Measurements + +------+-----+-----+---------+ + !Location !PSV !EDV !Angle!%Stenosis!Tortuosity! + +------+-----+-----+---------+ + !Prox CCA !136.94!18.1 ! ! ! ! + +------+-----+-----+---------+ + !Mid CCA !83.27 !14.65! ! ! ! + +------+-----+-----+---------+ + !Dist CCA !79.66 !13.39! ! ! ! + +------+-----+-----+---------+ + !Prox ICA !143.44!38.81! ! ! ! + +------+-----+-----+---------+ + !Dist ICA !166.19!30.74! ! ! ! + +------+-----+-----+---------+ + !Prox ECA !136.14! ! ! ! ! + +------+-----+-----+---------+ + !Mid Vertebral !95.52 ! ! ! ! ! + +------+-----+-----+---------+ + !Mid Subclavian !160.85! ! ! ! ! + +------+-----+-----+---------+ + - There is antegrade vertebral flow noted on the left side. - Additional Measurements:ICAPSV/CCAPSV 1.8. Findings Right Findings Intimal thickening in the entire CCA. Moderate heterogenous hyperechoic smooth plaque in the ECA . Mild heterogenous hyperechoic smooth plaque in the proximal ICA. Left Findings Intimal thickening in the entire CCA. Moderate heterogenous hyperechoic smooth plaque in the ECA and proximal ICA. Signature US DOPPLER VENOUS LEGS BILATERAL Vascular Lower Extremities DVT Study Procedure Demographics Patient Name SANDIE SMITH Age 74 [place] Patient Number [id number] Gender Male Race Ethnicity Corporate ID [id number] Height 65 Date of 1950 Weight 139 Accession Number [id number] BSA 1.69 m^2 Room Number 405 BMI 23.13 kg/m^2 Referring Alyson Ferguson MD Interpreting BEBETO WALTER MD Physician Physician Senior Linux Unix Engineer Rosy Guido She Procedure Type of Study: Veins: Venous Duplex, Venous Duplex Legs, Lower Extremities DVT Study, US DOPPLER VENOUS LEGS BILATERAL. Impressions Summary INDICATION: Personal history of DVT Z86.718 . ############################### BILATERAL: No evidence of deep venous thrombosis (DVT) or superficial venous thrombosis. Consistent pulsatility visualized in veins consistent with elevated central venous pressure. ############################### Patient Status:Inpatient . Study Location:Portable. Technical Quality:Good visualization. Velocities are measured in cm/s ; Diameters are measured in mm Right Lower Extremities DVT Study Measurements Right 2D Measurements + + + + + !Location !Visualized !Compressibility !Thrombosis ! + + + + + !GSV Thigh !Yes !Yes !None ! + + + + + !Common Femoral !Yes !Yes !None ! + + + + + !Deep Femoral !Yes !Yes !None ! + + + + + !Prox Femoral !Yes !Yes !None ! + + + + + !Mid Femoral !Yes !Yes !None ! + + + + + !Dist Femoral !Yes !Yes !None ! + + + + + !Popliteal !Yes !Yes !None ! + + + + + !PTV !Yes !Yes !None ! + + + + + !Peroneal !Yes !Yes !None ! + + + + + Right Doppler Measurements + + +------+ + !Location !Signal !Reflux!Reflux (sec) ! + + +------+ + !Common Femoral !Spontaneous Pulsatile ! ! ! + + +------+ + !Prox Femoral !Spontaneous Pulsatile ! ! ! + + +------+ + !Deep Femoral !Spontaneous Pulsatile ! ! ! + + +------+ + !Popliteal !Spontaneous Pulsatile ! ! ! + + +------+ + Left Lower Extremities DVT Study Measurements Left 2D Measurements + + + + + !Location !Visualized !Compressibility !Thrombosis ! + + + + + !GSV Thigh !Yes !Yes !None ! + + + + + !Common Femoral !Yes !Yes !None ! + + + + + !Deep Femoral !Yes !Yes !None ! + + + + + !Prox Femoral !Yes !Yes !None ! + + + + + !Mid Femoral !Yes !Yes !None ! + + + + + !Dist Femoral !Yes !Yes !None ! + + + + + !Popliteal !Yes !Yes !None ! + + + + + !PTV !Yes !Yes !None ! + + + + + !Peroneal !Yes !Yes !None ! + + + + + Left Doppler Measurements + + +------+ + !Location !Signal !Reflux!Reflux (sec) ! + + +------+ + !Common Femoral !Spontaneous Pulsatile ! ! ! + + +------+ + !Prox Femoral !Spontaneous Pulsatile ! ! ! + + +------+ + !Deep Femoral !Spontaneous Pulsatile ! ! ! + + +------+ + !Popliteal !Spontaneous Pulsatile ! ! ! + + +------+ + Findings Right Findings No evidence of a deep venous thrombosis (DVT). No evidence of a superficial venous thrombosis. Normal response to augmentation in the supine position. Left Findings No evidence of a deep venous thrombosis (DVT). No evidence of a superficial venous thrombosis. Normal response to augmentation in the supine position. Signature Labs reviewed LE dopplers- no DVT Carotid dopplers- no significant stenosis Echo- EF 60%; no masses/thrombi, no PFO Assessment 74yo M with h/o CLL, on chemotherapy, admitted with confusion and bilateral lower extremity weakness; he states he has chronic right leg weakness from a prior injury but left leg weakness is new. He has also reported left hip pain radiating down the left leg to me. 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 He had MRI C/T/Lspine as well with no specific findings or spinal cord pathology. Neurosurgery did evaluate, recommended MRI brain w/ contrast which patient refused due to iodine contrast allergy (multiple physicians did explain that MRI contrast is not iodinated but patient continues to decline study). He does have a past history of DVT and is heterozygote for prothrombin mutation; further testing with LE dopplers, echo and carotid dopplers is unremarkable. At this time recommend to continue aspirin for stroke prophylaxis; statin not started due to LDL <70 and concern for worsened weakness. He will have a cardiac event monitor at discharge per cardiology to further evaluate for any cardiac arrhythmia. Plan discussed with patient and ; will put in for outpatient neurologic follow up. Pending any further medical workup, he would be fine for discharge home from my standpoint at any time. I will follow as needed from here; call with any further questions. * Matt Vargas MD - 12/14/2024 7:43 AM EDT I saw Mr. Hu and his this morning. I also reviewed the dictations from neurology and neurosurgery. The patient denies any new concerns or problems. He still has lower extremity weakness Examination: Elderly male vital stable HEENT exam is unremarkable neck is supple without adenopathylungs are clear heart regular rate and rhythm abdomen without organomegaly extremities without edema he has some atrophy of the right lower extremity distal to the knee. Neurologically he is otherwise okay Impression: Lower extremity weakness unknown etiology Patient refused his MRI because he thought that gadolinium would cause the same reaction as CT-based iodine contrast. When I explained this to him and his he still declined having the MRI with contrast. He could start back on his Calquence at this point. I did not make any other recommendations Matt Vargas MD 12/11/2024 7:45 AM * Ramona Rhodes RN - 12/13/2024 3:50 PM EDT 12/13/24 1548 Home Environment Type of Residence Private residence (Multi level home with 12 steps; 3 steps to front door) Living Arrangements Spouse/significant other Support Systems Spouse/significant other Accessibilty Issues Multi level Patient returning to prior living situation? Yes Adherence Patient has moderate rate of compliance with treatment. Motivation Patient has moderate desire for learning/change. Affect Behavior Appropriate Prior/Regular Transportation Family Needs Assistance with Transportation No ADL Assessment Current Sensory Deficits None Patient's Vision Adequate to Safely Complete Daily Activities 1 Patient's Judgement Adequate to Safely Complete Daily Activities 1 Dressing Independent Current Home Care Services None Assistive Devices Walker;Wheelchair;Cane Transition Needs Home or Post Acute Services Home/self care Type of Home/Self Fci with family care Does the patient have the ability to fill and receive their discharge medications? Yes Discharge Plan Discussed The discharge plan was discussed with patient. 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 (P) Yes Compliance: (P) Patient has moderate rate of compliance with treatment. Motivation: (P) Patient has moderate desire for learning/change. Affect/Behavior: (P) Appropriate Prior/Regular Transportation: (P) Family Current Transportation Agency Information: Needs assistance with transportation:(P) No ADL Screen Current Sensory Deficits: (P) None Patient's Vision Adequate to Safely complete ADLs:(P) Yes Patient's Judgement Adequate to safely completed ADLs: (P) Yes Dressing: (P) Independent Current Home Care Services: Current Home Care Services: (P) None Assistive Devices(P) Yes Patient's Judgement Adequate to Safely Complete Daily Activities: (P) Yes Dressing: (P) Independent Current Lines, Tubes: Special/Community Services: Transition Needs Expected Discharge Date: 12/15/2024 Home or Post Acute Services Needed: (P) Home/self care Does the patient have the ability to fill and receive their discharge medications: (P) Yes Discharge plan discussed: (P) The discharge plan was discussed with patient. Discharge Barriers: (P) None Type of Assistive Devices Needed for Discharge: (P) None Patient Discharge Goal: (P) Home Mandated Reporting: (P) Not applicable PT/OT/AUTOMATION CONTROL TECHNICIAN Recommendations PT Recommendations: OT Recommendations: AUTOMATION CONTROL TECHNICIAN Recommendations: Cm spoke to patient and spouse at bedside. Has a PCP- Dr Arsalan Isabel. Can afford meds. Has been independent with ADL's prior to a week ago. Now has BLE weakness. Has transport home. Declines need for SNF/HH. Plans to return home. Choice letter and list of [employer]NER [employer]AL SURGEON's given just in case changes mind. Care Coordination has seen this patient and completed the need for which we were consulted. We will sign off. Please enter a new consult if any further needs arise. Ramona Rhodes RN * PAYAL Gillespie/Mikal - 12/13/2024 2:47 PM EDT Images from the original note were not included. Inpatient Occupational Therapy Initial Evaluation Patient Name: Corbin Hu Date of : 1950 Date of Evaluation: 12/13/24 Start Time: 1447 Stop Time: 1515 Session Duration: 28 minutes Total time: 38 minutes spent, including 10 minutes for nursing collaboration, thorough chart and systems review, and clinical reasoning. This patient is a 74 y.o. male admitted on 12/11/2024 with Weakness [R53.1]. Past Medical History: Diagnosis Date Anxiety GERD (gastroesophageal reflux disease) Lymphocytic leukemia (HCC) Unspecified skin changes Past Surgical History: Procedure Laterality Date BACK SURGERY 01/01/2022 Lumbar laminectomy, right side crossing over to the left side,decompression cauda equina and neuralellements foramenotmy , neural lysis, facetectomy, L4-5 General Visit type: Initial Evaluation Approved by: Nurse Sutherland Patient disposition upon entry: Sitting in bedside chair, Visitor/family present, All needs met andwithin reach, Feet lowered Precautions Weightbearing status: No restrictions Precautions: Fall risk, Hx of R foot drop Isolation precautions: Neutropenic LDA/Brace/Protective equipment: Lines, drains, and airways: blood pressure cuff, peripheral IV, telemetry Subjective Subjective: Pt agreeable Patient's stated goal: Pt hopes to regain independence with mobility and ADL tasks. Pain No-patient has no complaints of pain Cognition Cognition: Arousal/alertness: Confused Orientation level: Oriented x4, Comment: but with intermittent confusion observed throughout session Following commands: Follows all commands and directions without difficulty Safety judgment: Decreased awareness of need for assistance Decreased awareness of need for safety Vision/Hearing History Visual/Hearing History: Current Vision: Wears glasses at all times Current Hearing: No hearing deficits Home Living Lives with: Spouse Receives help from: Patient does not need help from others at baseline, Comment: spouse reported pthas required assist with ADLs and mobiltiy since last Tuesday Type of home: House Home layout: Two levels, 2 stairs to enter with rails, 14 stairs inside home with rails Bathroom layout: Walk in shower Home equipment available: built in shower seat, cane, straight, walker, rolling, wheelchair, manual Functional Mobility PLOF: Patient reports being complete independent with all functional mobility prior to onset., Comment: Until last Tuesday and has required use of RW for ~ past week Activities of Daily Living PLOF: Patient reports being complete independent with all ADL's prior toonset. , Comment: reported pt has required assist with ADLs for ~past week Does the patient have a recent history of falls?: No Objective Vitals Heart rate: 75 beats per minute Blood pressure: 117/55 mmHg Range of Motion Assessment Normal: Patient is able to use bilateral upper extremities for reaching/grasping/holding objects inall planes, including above shoulder level Strength Assessment Good: Patient is able to use arms to pull, push, and hold moderate to maximal resistance at shoulder, elbow, and wrist. Coordination/Sensation [id number]: LUE (4) Normal performance, RUE (3) Minimal Impairment: Able to accomplish activity; slightly less than normal control, speed, and steadiness Sensation: Pt reported decreased sensation to BLE, but was able to identify light touch. Bed Mobility Not assessed: patient up in chair upon arrival Transfers Sit to stand:Contact guard, Gait belt used Functional mobility:Contact guard, Gait belt used Toilet transfer:Contact guard, Gait belt used ADLs Feeding:Setup Grooming:Setup Bathing:Contact guard assist Upper body dressing:Setup Lower body dressing:Contact guard assist Toileting:Contact guard assist Outcome Measures [facility] Daily Living Functional Assessment How much help from another person does the patient currently need: Putting on and taking off regular lower body clothing? 3 Bathing, including washing, rinsing, and drying? 3 Toileting, including using toilet, bedpan or urinal? 3 Putting on and taking off regular upper body clothing? 3 Taking care of personal grooming such as brushing teeth? 3 Eating meals? 3 1=Total/Unable (Total assist/Dependent) 2=A lot (Maximal/Moderate assist) 3=A little (Minimal/Contact guard/Supervision/Setup) 4=None (Modified independent/Independent) The patient's [facility] raw score is 18. The patient currently has 46.65% functional impairment. Clinicians are most likely to recommend inpatient/SNF/longterm care for patients with scores between 6-17, home health for scores between 18-22, and routine discharge for scores above 22. Balance Static sitting balance:Good: Patient able to maintain balance without handheld support; limited postural sway Dynamic sitting balance:Fair: Patient accepts minimal challenge; able to maintain balance while turning head/trunk Static standing balance:Fair: Patient able to maintain balance with handheld support, may require occasional minimal assistance Dynamic standing balance:Fair: Patient accepts minimal challenge; able to maintain balance while turning head/trunk Activity Tolerance Patient limited with activity/intervention due to fatigue, deconditioning, and weakness Treatment The pt was seated in bedside chair. He participated with gathering history and was A&O x 4, butwith some intermittent confusion noted along with increased time for processing directions. Pt reported sensation was intact to BUE, but reported decreased sensation to BLE and hx of foot drop to RLE. Pt reported having hx of back pain, but reported no pain seated in bedside chair. The pt doff/donned shoe and sock with set up while seated in bedside chair. He completed sit to stand with CGA with no AD and completed functional mobility 13 ft x 2 to/from toilet. Pt completed toilet transfer with CGA and required CGA to manage clothing. He was seated EOB for BP check and then completed mobility back to chair. Assessment Assessment Prior to admission, patient was independent with ADLs, was independent with functional mobility. Currently the patient presents with decreased balance , decreased safety awareness , difficulty with ADLs, fall risk, impaired cognition, impaired endurance, impaired functional mobility. These deficits currently impact the patient's ability to perform ADLs and functional mobility, putting them at an increased risk for increased falls, decreased quality of life, further functional decline, further decreased strength, increased caregiver burden, other medical complications. The patient has good rehab potential and would benefit from OT services to address the aforementioned functional deficits inorder to return to prior level of function. The patient's current AMPAC score of 18 would indicate that the patient will likely be appropriate for home with home health and family support post hospitalization. Plan Recommendations Discharge recommendations: Discharge home/prior living situation. Patient would benefit from continued therapy services. DME recommendations: Unable to make adaptive/DME recommendations at this time. Treatment Plan: ADL training, Functional mobility/transfer training, Safety training OT Frequency/Duration: 3x/week for 14 days Goals Grooming: face washing, standing with supervision Lower body dressing: donning and doffing lower body clothing with modified independence. Toileting: toileting with modified independence. Functional transfers: stand pivot transfer with modified independence. Target Date: 12/27/2024 Goals were discussed with patient Education Patient educated on safety, use of call light, ADLs, functional mobility and following, they were able to verbalize understanding. Interdisciplinary Communication Following treatment, therapist communicated with nursing regarding patient's performance during therapy session. Patient Disposition Upon Leaving Patient disposition upon leaving: Sitting in bedside chair, Visitor/family present, All needs met and within reach, Feet lowered, Nursing aware/notified If this patient discharges prior to next therapy session, this note serves as the patient's discharge summary. Electronically signed by Nabeel Horn OTR/Mikal - 12/13/2024 - 3:33 PM EDT OT Evaluation Completed * Qian Rasmussen, PT - 12/13/2024 8:30 AM EDT Images from the original note were not included. Inpatient Physical Therapy Multidisciplinary Collaboration 12 minutes spent for nursing collaboration, thorough chart and systems review, and clinical reasoning in direct relation to patient care. 1 zero charges dropped to account for therapist's time. Electronically signed by Qian Rasmussen PT - 12/13/2024 - 3:30 PM EDT * Maria Guadalupe oLpez MD - 12/13/2024 7:46 AM EDT Subjective Pt was using walker today to get the bathroom. He reports the pain around left buttock area did improve with Gabapentin but he reports it does make him sleepy and agreeable to just continue at night.Fever overall better this morning Tmax is 100F but afebrile since. WBC is currently 18 from 16 yesterday. Hgb remains stable currently 8.1. Last Recorded Vitals Blood pressure 118/57, pulse 77, temperature 97.3 ??F (36.3 ??C), resp. rate 18, height 1.676 m (5'5.98 ), weight 63.2 kg (139 lb 5.3 oz), SpO2 96%. Physical Exam: General: [Alert and oriented x3, NAD] Neurologic: [Awake, alert, no focal deficits]. Eye: [PERRL, normal conjuctiva]. HENT: [Normocephalic, no scleral icterus]. Neck: [Supple, no JVD]. Lungs: [Clear to auscultation, on RA]. Heart: [Regular rate, regular rhythm, + systolic murmur, no gallop or edema]. Abdomen: [Soft, non-tender, non-distended, normal bowel sounds, no masses]. Musculoskeletal: [Normal range of motion]. Skin: [Skin is warm, dry] Psychiatric: [Cooperative, appropriate mood and affect]. Labs: Results for orders placed or performed during the hospital encounter of 12/11/24 (from the past 24 hours) CBC with automated diff Status: Abnormal Collection Time: 12/13/24 5:12 AM Result Value Ref Range WBC 18.6 (H) 4.2 - 9.1 K/??L RBC 2.57 (L) 4.63 - 6.08 M/??L Hemoglobin 8.1 (L) 13.7 - 17.5 GM/DL Hematocrit 24.9 (L) 40.1 - 51.0 % MCV 97 (H) 79 - 92 fL MCH 31.5 25.7 - 32.2 pg MCHC 32.5 32.3 - 36.5 GM/DL RDW 14.7 (H) 11.6 - 14.4 % Platelets 167 140 - 375 K/CU MM MPV 9.8 9.4 - 12.4 fL NRBC Absolute <0.01 0 - 0.012 K/ul Basic Metabolic Panel Status: Abnormal Collection Time: 12/13/24 5:12 AM Result Value Ref Range Sodium 136 136 - 145 meq/L Potassium 4.0 3.4 - 5.1 meq/L CO2 23 22 - 29 meq/L Chloride 107 98 - 112 meq/L Glucose 118 (H) 82 - 115 mg/dL BUN 17.4 8.4 - 25.7 mg/dL Creatinine 0.75 0.72 - 1.25 mg/dL BUN/Creatinine 23 (H) 8 - 20 Calcium 7.6 (L) 8.4 - 10.2 mg/dL Anion Gap 10 4 - 12 eGFR (mL/min/1.73m2) 94 >=60 mL/min/1.73m2 Osmolality Calc 274.7 mOsm/kg TSH Status: Normal Collection Time: 12/13/24 5:12 AM Result Value Ref Range TSH 2.613 0.350 - 4.940 uIU/mL Vitamin D, 25-Hydroxy Status: Normal Collection Time: 12/13/24 5:12 AM Result Value Ref Range Vitamin D 25-Hydroxy 31.33 30 - 80 ng/mL Manual Differential Status: Abnormal Collection Time: 12/13/24 5:12 AM Result Value Ref Range Total Counted 100 % Neutros (manual) 26 (L) 50 - 65 % % Lymphs (manual) 72 (H) 24 - 44 % % Monos (manual) 2 (L) 4 - 5 % Atypical Lymphs Present RBC Morphology abnormal (A) Normal Platelet Estimate Adequate Adequate Anisocytosis 1+ Poikilocytes 1+ Hypochromia 1+ Elliptocytes 1+ Smudge Cells Present ANC# 4.84 K/??L Lipid panel Status: Abnormal Collection Time: 12/13/24 5:12 AM Result Value Ref Range Triglycerides 108 <=149 mg/dL Cholesterol 81 (L) 100 - 199 mg/dL HDL Cholesterol 12 See Comment mg/dL LDL Cholesterol, Calculated 47 0 - 100 mg/dL LDl/HDL Ratio 4 0 - 4 Cholesterol/HDL ratio 6.8 (H) 0.0 - 5.0 mg/dL VLDL Cholesterol 21.6 5 - 40 mg/dL MR Brain Without IV Contrast, MR spine lumbar without contrast Narrative: MRI HEAD WITHOUT CONTRAST HISTORY: Lower extremity weakness, history of CLL COMPARISON: None. FINDINGS: Multiplanar MR imaging of the head was performed without contrast. Motion artifact is noted on many of the images. There is age-appropriate atrophy. Scattered foci of increased T2 signal are seen in the bilateral cerebral white matter consistent with mild to moderate chronic ischemic/gliotic changes. There is no evidence of intracranial hemorrhage or mass. The ventricles are within normal limits with respect to size. There is no evidence of shift of the midline structures. No abnormal extra-axial fluid collection is seen. The posterior fossa and brainstem have an unremarkable appearance. On the diffusion weighted images, scattered small foci of restricted diffusion are seen bilaterally consistent with small acute lacunar infarcts. The largest focus measures 5 mm along the posterior aspect of the occipital horn of the left lateral ventricle in the left occipital lobe. Other smaller foci are seen involving the bilateral occipital lobes, the left parietal lobe and the anteromedial right temporal lobe. Normal major vessel vascular flow voids are identified. Mucosal thickening is noted in multiple sinuses. Impression: Mild to moderate chronic ischemic/gliotic changes. Scattered small acute bilateral lacunar infarcts as described. MRI LUMBAR SPINE HISTORY: Bilateral lower extremity weakness. History of CLL. COMPARISON: None FINDINGS: Multiplanar MR imaging of the lumbar spine was performed without contrast. Motion artifact is noted on many of the images. On the sagittal T2-weighted images, disc degeneration is seen at multiple levels. The vertebral alignment is normal. Decreased signal is seen throughout the bone marrow of uncertain significance. There is no evidence of fracture. No bony mass is identified. The conus has an unremarkable appearance. L1-2: An annular bulge is present. There is mild facet arthropathy. No significant canal stenosis or neural foraminal narrowing is identified. L2-3: An annular bulge is present. There is mild facet arthropathy. Mild right neural foraminal narrowing is seen. L3-4: An annular bulge is present. There is bilateral facet arthropathy. A small right foraminal disc protrusion is seen. Moderate right and mild left neural foraminal narrowing is seen. L4-5: An annular bulge is present. Presumed postoperative changes are seen on the right. Moderate bilateral neural foraminal narrowing is seen. L5-S1: An annular bulge is present. There is mild facet arthropathy. Mild right and moderate left neural foraminal narrowing is seen. IMPRESSION: Multilevel degenerative disc disease and spondylosis with bilateral neural foraminal narrowing as described. Diffuse decreased signal throughout the bone marrow worrisome for a diffuse infiltrative process. Images reviewed, interpreted, and dictated by Haider Bond MD MR thoracic spine without contrast, MR spine cervical without IV contrast Narrative: MRI CERVICAL SPINE WITHOUT CONTRAST HISTORY: Lower extremity weakness COMPARISON: None FINDINGS: Multiplanar MR imaging of the cervical spine was performed without contrast. On the sagittal T2 weighted images, disc degeneration is noted at multiple levels. There is mild retrolisthesis of C4 on C5. Mild endplate changes are seen at several levels. There is no evidence of fracture. No bony mass is identified. The cervical spinal cord has an unremarkable appearance, without evidence of mass, edema or syrinx. The cervicomedullary junction is normal. C2-C3: There is no evidence of significant central canal stenosis or neural foraminal narrowing. C3-C4: A small central disc protrusion mildly indents the thecal sac. No significant canal stenosis is identified. There is mild left neural foraminal narrowing. C4-C5: A disc osteophyte complex is present. Moderate bilateral neural foraminal narrowing is seen. Mild central canal stenosis is seen measuring 9 mm AP. C5-C6: A disc osteophyte complex is present. Moderate bilateral neural foraminal narrowing is seen. Mild central canal stenosis is seen measuring 8 mm AP. C6-C7: A disc osteophyte complex is present. There is mild right neural foraminal narrowing. C7-T1: There is no evidence of significant central canal stenosis or neural foraminal narrowing. Impression: Multilevel degenerative disc disease and spondylosis as described. Mild central canal stenosis at C4-5 and C5-6. MRI THORACIC SPINE HISTORY: Lower extremity weakness. History of CLL FINDINGS: Multiplanar MR imaging of the thoracic spine was performed without contrast. Motion artifact is noted on many of the images. On the sagittal T2 weighted images, disc degeneration is seen at multiple levels. The vertebral alignment is normal. There is no evidence of fracture. No bony mass is identified. No significant central canal stenosis is identified. The thoracic spinal cord has an unremarkable appearance, without evidence of mass, edema or syrinx. On the axial images, multilevel mild annular bulges are seen. No focal disc protrusion is identified. No significant central canal stenosis is seen. A small right pleural effusion is noted. IMPRESSION: Multilevel mild degenerative disc disease with multiple disc bulges. No focal disc protrusion or significant central canal stenosis. Images reviewed, interpreted, and dictated by Haider Bond MD XR chest AP portable Narrative: Portable chest HISTORY: Pneumonia FINDINGS: Prior study dated 12/02/2017. There are new patchy infiltrates in the right lung base. Heart and pulmonary vessels are normal. There are no definite acute infiltrates on the left. There are no effusions. Impression: Patchy infiltrate in the right lung base, may represent pneumonia. Assessment and Plan: Severe Sepsis due to PNA, present on admission -On admission with fever, WBC 16, AMS -Immunocompromised was recently on Calquence -CT Chest at [facility] showed stable to improved lymphadenopathy. New cardiomegaly with interlobar septalthickening, favor mild CHF. Several ground glass nodules in the right upper lobe, new from prior exam. Favor infectious/inflammatory. -CXR here shows patchy infiltrate in the right lung base, may represent pneumonia, indep rev -Urine strep and legionella - presumed negative -Resp PCR panel- Neg -Continue Ceftriaxone and Dox Acute Metabolic Encephalopathy, improving -Due to Sepsis -Per at baseline pt does not have confusion B/L LE Weakness and Numbness -Pt reports he has radiating back pain down his L buttock and difficulty walking and numbness of his legs for several weeks now. Reports has had to start using a walker since a couple of weeks ago -Reports of prior lumbar surgery for pinched nerves 4 yrs ago -CT Brain [facility] showed increased density at the bilateral parietal lobes. Small amount of subarachnoid hemorrhage not excluded. Paranasal sinus disease. -CT C-Spine [facility] showed no acute osseous abnormality of the cervical spine. Multiple enlarged cervical lymph nodes in this pt with a clinical history of CLL. Multilevel degenerative disc disease is present most pronounced at the C4-5 and C6-7 levels. -CT thoracic/lumbar [facility] showed no acute osseous abnormality of the thoracic/lumbar spine. Multilevel degenerative disc disease. -MRI C-Spine (12/12)- Multilevel degenerative disc disease and spondylosis as described. Mild central canal stenosis at C4-5 and C5-6. -MRI T-Spine (12/12)- Multilevel mild degenerative disc disease with multiple disc bulges. No focal disc protrusion or significant central canal stenosis. -MRI L-Spine (12/12)- Multilevel degenerative disc disease and spondylosis with bilateral neural foraminal narrowing -Pt's oncologist recently started tapering dose of prednisone 10mg TID X days, BID X 7 days, daily X 7 days, will continue here -Started Gabapentin 300mg BID makes him sleepy continue 300mg every night -PT/OT -Neurosurgery consulted, MRI of the brain Dr. Amin notes presence of diffusion restriction and layering in the left occipital horn, could be concerning for ventriculitis. MRI brain with contrast was ordered to evaluate this further, but patient refused the MRI with contrast. Will send sed rate and CRP. Acute Small B/L Lacunar Infarcts likely Embolic, Suspicions for Paroxysmal Afib -MRI Brain showed small scattered b/l lacunar infarcts, scattered small foci of restricted diffusion are seen bilaterally consistent with small acute lacunar infarcts. Largest focus measures 5 mm along the posterior aspect of the occipital horn of the left lateral ventricle in the left occipital lobe. Other smaller foci are seen involving the bilateral occipital lobes, the left parietal lobe and the anteromedial right temporal lobe. -Cholest-81 Trig-108 HDL- 12 LDL-47, no need to start statin and may make LE weakness worse -TTE w/ bubble study ordered -Carotid US ordered -Start Asp 81mg daily -Neuro Consulted, embolic appearance of strokes -EP Consulted for concerning Afib events on telemetry, reports no Afib events on telemetry and recommend a 30 day event monitor Anemia -Hgb currently 8 -Iron studies consistent with ELIZABETH (Iron-11 TIBC-183 Ferritin-474 %Sat-6) -Start IV Iron CLL -Diagnosed 2006 -He was treated with Ritaxin and Bendamustine in 2018 -He received 3 weeks of Calquence starting 10/2024 but had side effects and was stopped H/O DVT -Was on Eliquis [id number] DVT: Therapeutic Lovenox Discharge Planning: Barriers to discharge: Continue IV abx for PNA. Continue PT/OT Expected (tentative) discharge in 2-3 days Expected discharge disposition (home, SNF/Rehab, etc): Home vs. Possible rehab * Matt Vargas MD - 12/13/2024 6:44 AM EDT I spoke to Mr. Hu and his this morning. This gentleman has some pain in the left buttock and lateral from the spine in the lumbar area. And as noted he has weakness in his lower extremities. He also of course has CLL and he has anemia accompanying that. He denies any new complaints. Examination elderly male no acute distress vitals are stable HEENT exams unremarkable no significant adenopathy in the neck or axillary areas lungs are clear heart regular rate rhythm abdomen withoutsplenomegaly extremities he has chronic neurologic changes of the right lower extremity from the knee distally. He has weakness in the left leg and discomfort in the lumbar spine lateral to the left He has some lacunar infarcts and age changes in the MRI of the brain. He has degenerative arthritisof the cervical and thoracic spine. He has such significant neuroforaminal narrowing in the lumbar spine which may account for his symptoms. Impression: Chronic lymphocytic leukemia on a Janna on tyrosine kinase inhibitor Lower extremity weakness perhaps from disc disease. Plan: I would have neurosurgery visit him and comment on the appearance of his spine on MRI. We will continue to hold his medication for leukemia since it can cause increased risk of bleeding with any procedures. I have answered both his and his 's questions Matt Vargas MD 12/11/2024 6:47 AM * Maria Guadalupe Lopez MD - 12/12/2024 2:29 PM EDT Subjective Pt reports he has radiating back pain down his L buttock and difficulty walking and numbness of hislegs for several weeks now. He has been using a walker. He He reports he has prior lumbar surgery 4yrs ago for pinched nerve.He is noted to have some confusion slow to answer question at times. He is currently afebrile. He reports he has not been coughing much. Last Recorded Vitals Blood pressure 122/58, pulse 64, temperature 99 ??F (37.2 ??C), resp. rate 18, height 1.676 m (5' 5.98 ), weight 63.2 kg (139 lb 5.3 oz), SpO2 96%. Physical Exam: General: [Alert and oriented x3, NAD] Neurologic: [Awake, confusion noted, no focal deficits]. Eye: [PERRL, normal conjuctiva]. HENT: [Normocephalic, no scleral icterus]. Neck: [Supple, no JVD]. Lungs: [Clear to auscultation, on RA]. Heart: [Regular rate, regular rhythm, + systolic murmur, no gallop or edema]. Abdomen: [Soft, non-tender, non-distended, normal bowel sounds, no masses]. Musculoskeletal: [Normal range of motion]. Skin: [Skin is warm, dry] Psychiatric: [Cooperative, appropriate mood and affect]. Labs: Results for orders placed or performed during the hospital encounter of 12/11/24 (from the past 24 hours) CBC - Hemogram (SJ-BKR) Status: Abnormal Collection Time: 12/12/24 3:51 AM Result Value Ref Range WBC 16.1 (H) 4.2 - 9.1 K/??L RBC 2.60 (L) 4.63 - 6.08 M/??L Hemoglobin 8.2 (L) 13.7 - 17.5 GM/DL Hematocrit 25.8 (L) 40.1 - 51.0 % MCV 99 (H) 79 - 92 fL MCH 31.5 25.7 - 32.2 pg MCHC 31.8 (L) 32.3 - 36.5 GM/DL RDW 14.8 (H) 11.6 - 14.4 % Platelets 168 140 - 375 K/CU MM MPV 9.7 9.4 - 12.4 fL Basic Metabolic Panel Status: Abnormal Collection Time: 12/12/24 3:51 AM Result Value Ref Range Sodium 140 136 - 145 meq/L Potassium 3.9 3.4 - 5.1 meq/L CO2 24 22 - 29 meq/L Chloride 107 98 - 112 meq/L Glucose 105 82 - 115 mg/dL BUN 18.6 8.4 - 25.7 mg/dL Creatinine 1.02 0.72 - 1.25 mg/dL BUN/Creatinine 18 8 - 20 Calcium 7.8 (L) 8.4 - 10.2 mg/dL Anion Gap 13 (H) 4 - 12 eGFR (mL/min/1.73m2) 76 >=60 mL/min/1.73m2 Osmolality Calc 281.9 mOsm/kg Iron and TIBC Status: Abnormal Collection Time: 12/12/24 3:51 AM Result Value Ref Range Iron 11 (L) 65 - 175 ug/dL TIBC 183 (L) 250 - 435 ug/dL % Saturation 6 % UIBC 172 Ferritin Status: Abnormal Collection Time: 12/12/24 3:51 AM Result Value Ref Range Ferritin 474.71 (H) 21.81 - 274.66 ng/mL Vitamin B12 Status: Normal Collection Time: 12/12/24 3:51 AM Result Value Ref Range Vitamin B12 439 213 - 816 pg/mL MRSA Screen Status: Normal Collection Time: 12/12/24 10:27 AM Specimen: Nares; Nasal Result Value Ref Range MRSA by PCR [facility] MRSA Not Detected by PCR MRSA Not Detected by PCR Respiratory Panel Status: Normal Collection Time: 12/12/24 10:27 AM Specimen: Nasopharyngeal Swab Result Value Ref Range ADENOVIRUS Not detected Not detected CORONAVIRUS 229E Not detected Not detected CORONAVIRUS HKU1 Not detected Not detected CORONAVIRUS NL63 Not detected Not detected CORONAVIRUS OC43 Not detected Not detected SARS-COV2/RT-PCR Not Detected Not Detected HUMAN METAPNEUMOVIRUS Not detected Not detected HUMAN RHINOVIRUS/ENTEROVIRUS Not detected Not detected INFLUENZA A Not detected Not detected INFLUENZA B Not detected Not detected PARAINFLUENZA VIRUS 1 Not detected Not detected PARAINFLUENZA VIRUS 2 Not detected Not detected PARAINFLUENZA VIRUS 3 Not detected Not detected PARAINFLUENZA VIRUS 4 Not detected Not detected RESPIRATORY SYNCYTIAL VIRUS Not detected Not detected BORDETELLA PARAPERTUSSIS Not detected Not detected BORDETELLA PERTUSSIS Not detected Not detected CHLAMYDIA PNEUMONIAE Not detected Not detected MYCOPLASMA PNEUMONIAE Not detected Not detected Strep pneumoniae urine antigen Status: Normal Collection Time: 12/12/24 11:48 AM Specimen: Urine, Unspecified Source Result Value Ref Range Strep pneumoniae Antigen Presumptive negative for pneumococcal pneumonia- see comment Presumptive negative for pneumococcal pneumonia - see comment Legionella antigen, urine Status: Normal Collection Time: 12/12/24 11:48 AM Result Value Ref Range Legionella Urine Antigen Presumptive negative for L. pneumophila serogroup 1 antigen in urine- see comment Presumptive negative for L. pneumophila serogroup 1 antigen in urine- see comment XR chest AP portable Narrative: Portable chest HISTORY: Pneumonia FINDINGS: Prior study dated 12/02/2017. There are new patchy infiltrates in the right lung base. Heart and pulmonary vessels are normal. There are no definite acute infiltrates on the left. There are no effusions. Impression: Patchy infiltrate in the right lung base, may represent pneumonia. Assessment and Plan: Severe Sepsis due to PNA, present on admission -On admission with fever, WBC 16, AMS -Immunocompromised was recently on Calquence -CT Chest at [facility] showed stable to improved lymphadenopathy. New cardiomegaly with interlobar septalthickening, favor mild CHF. Several ground glass nodules in the right upper lobe, new from prior exam. Favor infectious/inflammatory. -CXR here shows patchy infiltrate in the right lung base, may represent pneumonia, indep rev -Urine strep and legionella - presumed negative -Resp PCR panel- Neg -Continue Ceftriaxone and Dox Acute Metabolic Encephalopathy -Due to Sepsis -Per at baseline pt does not have confusion B/L LE Weakness and Numbness -Pt reports he has radiating back pain down his L buttock and difficulty walking and numbness of his legs for several weeks now. Reports has had to start using a walker since a couple of weeks ago -Reports of prior lumbar surgery for pinched nerves 4 yrs ago -CT Brain [facility] showed increased density at the bilateral parietal lobes. Small amount of subarachnoid hemorrhage not excluded. Paranasal sinus disease. -CT C-Spine [facility] showed no acute osseous abnormality of the cervical spine. Multiple enlarged cervical lymph nodes in this pt with a clinical history of CLL. Multilevel degenerative disc disease is present most pronounced at the C4-5 and C6-7 levels. -CT thoracic/lumbar [facility] showed no acute osseous abnormality of the thoracic/lumbar spine. Multilevel degenerative disc disease. -Pt's oncologist recently started tapering dose of prednisone 10mg TID X days, BID X 7 days, daily X 7 days, will continue here -Start Gabapentin 300mg BID -MRI Brain, C/T/L Spine ordered -PT/OT Anemia -Hgb currently 8 -Iron studies consistent with ELIZABETH (Iron-11 TIBC-183 Ferritin-474 %Sat-6) -Start IV Iron CLL -Diagnosed 2006 -He was treated with Ritaxin and Bendamustine in 2018 -He received 3 weeks of Calquence starting 10/2024 but had side effects and was stopped DVT: Lovenox Discharge Planning: Barriers to discharge: Continue IV abx for PNA. MRI imaging today. Expected (tentative) discharge in 2-3 days Expected discharge disposition (home, SNF/Rehab, etc): Home vs. Possible rehab documented in this encounter H&P Notes * Aneudy Fitch PA-C - 12/11/2024 5:33 PM EDT [facility] Patient Name: Corbin Hu : 1950 Date: 12/11/2024 PCP: No primary care provider on file. Date of Admission: 12/11/2024 Chief Complaint: Lower extremity weakness History of Present Illness Corbin Hu is a 74 y.o. male with a history of CLL presents to [facility] in [place], [place] for further evaluation and management of lower extremity weakness. Patient is currently receiving cancer treatments with Dr. Eladio Lomas, oncologist patient was recently started on Acalabrutinib on November 22, 2024. Patient initially was started on October 29 however due to onset of dizziness patient's medication was held. Patient also had previous history of CLL for which he receivedchemotherapy in 2018, patient reportedly had history of neutropenic fever and pneumonia at that time. Patient states 3 days prior to admission patient had a fever of 103 and was acutely disoriented. Patient's symptoms somewhat resolved after Tylenol administration. However on morning of admission patient began to have symptoms of confusion and became febrile again. Patient was brought to [facility] emergency department where patient's CT head read abnormally and patient's chest CT identified likely pneumonia. Due to patient's current history and imaging patient was subsequently transferred to [facility] for further evaluation by MRI. Patient is being admitted for continued monitoring, evaluation, and treatment of weakness, with consultation to oncology. Patient is resting comfortably at time of admission, in no acute distress. All patient questions were answered at this time. Patient is agreeable to admission and plan. Past Medical History: Past Medical History: Diagnosis Date Anxiety GERD (gastroesophageal reflux disease) Lymphocytic leukemia (HCC) Unspecified skin changes Past Surgical History: Past Surgical History: Procedure Laterality Date BACK SURGERY Social History: Social History Tobacco Use Smoking status: Former Current packs/day: 0.00 Average packs/day: 1 pack/day for 8.0 years (8.0 ttl pk-yrs) Types: Cigarettes Start date: 05/02/1968 Quit date: 05/02/1976 Years since quittin.6 Vaping Use Vaping status: Never Used Substance Use Topics Alcohol use: Not Currently Drug use: Never Family History: No family history on file. Documented Allergies: Allergies Allergen Reactions Iodinated Contrast Media Documented [employer] Medications: Medications Prior to Admission Medication Sig Dispense Refill Last Dose/Taking multivitamin capsule Multiple Vitamin capsule Daily valACYclovir (VALTREX) 1000 MG tablet 1 po daily. 90 tablet 3 Review of Systems A 14 point review of systems was obtained and is noncontributory except as noted below. Available past medical, social and family history reviewed. Review of Systems Constitutional: Positive for chills, fever and malaise/fatigue. Respiratory: Negative for shortness of breath. Cardiovascular: Negative for chest pain. Gastrointestinal: Negative for abdominal pain, diarrhea, nausea and vomiting. Neurological: Positive for focal weakness and weakness. Objective Vitals: Temp: [100.4 ??F (38 ??C)] 100.4 ??F (38 ??C) Pulse: [80] 80 Resp: [18] 18 BP: (109)/(56) 109/56 Intake/Output: Intake/Output Summary (Last 24 hours) at 12/11/20241835 Last data filed at 12/11/2024 1700 Gross per 24 hour Intake -- Output 400 ml Net -400 ml Physical Exam Constitutional: General: He is not in acute distress. Appearance: Normal appearance. He is normal weight. He is not ill-appearing, toxic-appearing or diaphoretic. HENT: Head: Normocephalic and atraumatic. Cardiovascular: Rate and Rhythm: Normal rate and regular rhythm. Pulses: Normal pulses. Heart sounds: Murmur (Systolic, known) heard. Pulmonary: Breath sounds: Normal breath sounds. Abdominal: General: Bowel sounds are normal. Palpations: Abdomen is soft. Musculoskeletal: Cervical back: Normal range of motion. Right lower leg: No edema. Left lower leg: No edema. Skin: General: Skin is warm and dry. Neurological: General: No focal deficit present. Mental Status: He is alert and oriented to person, place, and time. Psychiatric: Mood and Affect: Mood normal. Thought Content: Thought content normal. Recent Labs: No results found for this visit on 12/11/24 (from the past 24 hours). Microbiology Results (last 7 days) No results found for the last 168 hours. Radiology: Radiology Results (last 3 days) No results found for the last 72 hours. All Documented Medications: Scheduled Meds: AZITHROmycin 500 mg intravenous Q24H cefTRIAXone 1 g intravenous Q24H ANNETTE melatonin 5 mg oral Every Night pantoprazole 40 mg oral Daily 40 mg at 12/11/24 1831 Continuous Infusions: Current Facility-Administered Medications Medication Dose Route Frequency Provider Last Rate Last Admin acetaminophen (TYLENOL) tablet 1,000 mg 1,000 mg oral Q6H PRN Aneudy Fitch PA-C 1,000 mg at 12/11/24 183 azithromycin (ZITHROMAX) 500 mg in sodium chloride 0.9 % (NS) 250 mL (V2B) IVPB 500 mg intravenous Q24H Aneudy Fitch PA-C cefTRIAXone (ROCEPHIN) 1 g in sodium chloride 0.9 % (NS) 50 mL EFRAIN IVPB 1 g intravenous Q24H ANNETTE Aneudy Fitch PA-C cloNIDine (CATAPRES) tablet 0.1 mg 0.1 mg oral Q8H PRN Aneudy Fitch PA-C magnesium sulfate IVPB 2 g in sterile water 50 mL (premix) 2 g intravenous Daily PRN Aneudy Fitch PA-C magnesium sulfate IVPB 2 g in sterile water 50 mL (premix) 2 g intravenous BID PRN Aneudy Fitch PA-C melatonin tablet 5 mg 5 mg oral Every Night Aneudy Fitch PA-C ondansetron (ZOFRAN-ODT) disintegrating tablet 4 mg 4 mg oral Q8H PRN Aneudy Fitch PA-C Or ondansetron (ZOFRAN) injection 4 mg 4 mg intravenous Q8H PRN Aneudy Fitch PA-C oxyCODONE (ROXICODONE) immediate release tablet 5 mg 5 mg oral Q4H PRN Aneudy Fitch PA-C pantoprazole (PROTONIX) EC tablet 40 mg 40 mg oral Daily Aneudy Fitch PA-C 40 mg at 12/11/24 183 potassium chloride (KLOR-CON) ER tablet 40 mEq 40 mEq oral 4x Daily PRN Aneudy Fitch PA-C promethazine (PHENERGAN) tablet 25 mg 25 mg oral Q6H PRN Aneudy Fitch PA-C Or promethazine (PHENERGAN) 12.5 mg in sodium chloride 0.9 % (NS) 50 mL IVPB (Immediate Use Only) 12.5mg intravenous Q6H PRN Aneudy Fitch PA-C sodium chloride 0.9 % infusion 50 mL/hr intravenous Continuous Aneudy Fitch PA-C sodium chloride flush 10 mL 10 mL intravenous PRN Aneudy Fitch PA-C PRN Meds: @MEDSPRN@ Assessment and Plan Principal Problem: Weakness Active Problems: CLL (chronic lymphocytic leukemia) (HCC) Pneumonia Hyponatremia Weakness of bilateral lower extremities CLL Hyponatremia, mild Labs and imaging at outside facility were as follows: -CT head brain without increased density at the bilateral parietal lobes. Small amount of subarachnoid hemorrhage not excluded. Consider short-term follow-up or MRI for further evaluation. Paranasalsinus disease as above. -H&H low at 7.7/24.5 -Sodium low at 128 -Potassium normal at 3.9 -Creatinine normal at 0.9 with a GFR greater than 60 -Alkaline phosphatase normal at 112 -Urinalysis not indicative of UTI -Prothrombin time elevated at 14.2 -INR elevated at 1.3 -CT cervical spine read no acute osseous abnormality of the cervical spine. Multiple enlarged cervical lymph nodes in this patient with a clinical history of CLL. Multilevel degenerative disc disease is present most pronounced at the C4-5 and C6-7 levels. -CT thoracic/lumbar no acute osseous abnormality of the thoracic/lumbar spine. Multilevel degenerative disc disease. -EKG read normal sinus rhythm - This diagnosis without intervention would result in loss of bodily function Plan - Consultation oncology, assistance appreciated - MRI brain without ordered for further evaluation -Normal saline infusion 50 mL/h x 15 hours for gentle IV hydration and slow electrolyte repletion - Oral and IV Zofran for nausea; Phenergan for second line - Regular diet when not n.p.o. - BMP ordered with a.m. labs - Oral potassium and IV magnesium ordered for electrolyte repletion as needed - Oxygen as needed - Monitor intake and output - Vital signs per unit protocol - Continuous telemetry monitoring Pneumonia, CAP Labs and imaging at outside facility were as follows: -CT chest read stable to improved lymphadenopathy as above. New cardiomegaly with interlobar septal thickening, favor mild CHF. Several ground glass nodules in the right upper lobe, new from prior exam. Favor infectious/inflammatory. - White count elevated at 16.1 -CT abdomen pelvis without read mild wall thickening of the cecum and ascending colon, colitis is not excluded. Overall image quality is slightly limited without contrast. Stable splenomegaly in a patient with known lymphoma. -Patient received vancomycin and cefepime at outside facility prior to transfer Plan - Empiric antibiotic coverage with IV ceftriaxone and azithromycin - CBC ordered with a.m. labs - Tylenol as needed for fever -Consider broadening of antibiotics if patient's symptoms do not improve or worsen -Laboratory work and pertinent imaging results independently reviewed as noted in HPI. -Continue to monitor electrolytes with AM metabolic panel and replete as appropriate. -Monitor WBC count to assess for developing / worsening infection and hemoglobin with AM CBC. -Intermittent BP and pulse oximetry monitoring per unit parameters. -Continue appropriate home medications for chronic problems as ordered below. -After reviewing this patient's presentation, labs, imaging, and medical record and discussion withsupervising physician, we have to decided to admit them. They will require inpatient admission requiring >48hrs for work up and stabilization of their condition. -High complexity of medical decision making required due to patient having multiple serious medicalconditions which without intervention would result in loss of bodily function and possible . -Evaluated 12/11/2024, 5:33 PM I, Aneudy Fitch, have personally reviewed pertinent laboratory, EKG, and imaging results, as well as documentation in the patient's EMR and discussed with supervising physician as necessary. Laboratory and imaging orders per the above plan have been reviewed and addressed, please see orders below. Home medications have been reviewed and restarted if appropriate. Patient's case, assessment, and plan have been discussed on this date with patient and RN. Glycemic control: Goal BS between 110-180 Nutrition: Orders Placed This Encounter Procedures Regular Diet GI prophylaxis: Protonix VTE prophylaxis: SCD's ordered AM orders including labs/radiology/procedures placed. Code Status: Current Code Status DNR: Interventions Limited: No Intubation Disposition: Admit Prognosis: TBD Signed: Aneudy Fitch PA-C 12/11/2024, 5:33 PM Active Orders Imaging MR Brain Without IV Contrast Frequency: Once Number of Occurrences: 1 Occurrences Lab Basic Metabolic Panel Frequency: AM Draw Number of Occurrences: 1 Occurrences CBC - Hemogram (SJ-BKR) Frequency: AM Draw Number of Occurrences: 1 Occurrences Diet Regular Diet Frequency: Effective Now Number of Occurrences: Until Specified Nursing Intake and Output Frequency: Q Shift Number of Occurrences: Until Specified Telemetry monitoring for Other Indication Frequency: Until Discontinued Number of Occurrences: 48 Hours Up with assistance Frequency: Until Discontinued Number of Occurrences: Until Specified Vital Signs Frequency: Per Unit Routine Number of Occurrences: Until Specified Code Status DNR: Interventions Limited: No Intubation Frequency: Continuous Number of Occurrences: Until Specified Consult Inpatient consult to Hematology/Oncology Frequency: Once Number of Occurrences: 1 Occurrences Respiratory Care Oxygen Therapy -Nasal Cannula Frequency: PRN Number of Occurrences: Until Specified IV Insert Peripheral IV Linked Order: And Frequency: Once Number of Occurrences: 1 Occurrences Saline Lock IV Linked Order: And Frequency: Once Number of Occurrences: 1 Occurrences Medications acetaminophen (TYLENOL) tablet 1,000 mg Frequency: Q6H PRN Dose: 1,000 mg Route: oral azithromycin (ZITHROMAX) 500 mg in sodium chloride 0.9 % (NS) 250 mL (V2B) IVPB Frequency: Q24H Dose: 500 mg Route: intravenous cefTRIAXone (ROCEPHIN) 1 g in sodium chloride 0.9 % (NS) 50 mL EFRAIN IVPB Frequency: Q24H ANNETTE Dose: 1 g Route: intravenous cloNIDine (CATAPRES) tablet 0.1 mg Frequency: Q8H PRN Dose: 0.1 mg Route: oral magnesium sulfate IVPB 2 g in sterile water 50 mL (premix) Frequency: Daily PRN Dose: 2 g Route: intravenous magnesium sulfate IVPB 2 g in sterile water 50 mL (premix) Frequency: BID PRN Dose: 2 g Route: intravenous melatonin tablet 5 mg Frequency: Every Night Dose: 5 mg Route: oral ondansetron (ZOFRAN) injection 4 mg Linked Order: Or Frequency: Q8H PRN Dose: 4 mg Route: intravenous ondansetron (ZOFRAN-ODT) disintegrating tablet 4 mg Linked Order: Or Frequency: Q8H PRN Dose: 4 mg Route: oral oxyCODONE (ROXICODONE) immediate release tablet 5 mg Frequency: Q4H PRN Dose: 5 mg Route: oral pantoprazole (PROTONIX) EC tablet 40 mg Frequency: Daily Dose: 40 mg Route: oral potassium chloride (KLOR-CON) ER tablet 40 mEq Frequency: 4x Daily PRN Dose: 40 mEq Route: oral promethazine (PHENERGAN) 12.5 mg in sodium chloride 0.9 % (NS) 50 mL IVPB (Immediate Use Only) Linked Order: Or Frequency: Q6H PRN Dose: 12.5 mg Route: intravenous promethazine (PHENERGAN) tablet 25 mg Linked Order: Or Frequency: Q6H PRN Dose: 25 mg Route: oral sodium chloride 0.9 % infusion Frequency: Continuous Dose: 50 mL/hr Route: intravenous sodium chloride flush 10 mL Linked Order: And Frequency: PRN Dose: 10 mL Route: intravenous Cosigned by Jonathan Chang MD at 12/11/2024 8:00 PM EDT documented in this encounter Consult Notes * Kaye Denton PA-C - 12/13/2024 5:31 PM EDTAssociated Order(s): Inpatient consult to Neurosurgery Inpatient consult to Neurosurgery Consult performed by: Kaye Denton PA-C Consult ordered by: Matt Vargas MD [facility] NEUROSURGERY CONSULT NOTE Primary Care Provider: No primary care provider on file. History of Present Illness Corbin Hu is a 74 y.o. male with CLL, on chemotherapy, who presented to the hospital withlower extremity weakness, confusion and weakness. He was found to have pneumonia. He reports that he has been walking with a walker for at least a year. He denied back or leg pain when I saw him thismorning, but did describe to Dr. Ferguson left hip and leg pain. Review of Systems ROS Past Medical History He has a past medical history of Anxiety, GERD (gastroesophageal reflux disease), Lymphocytic leukemia (HCC), and Unspecified skin changes. Past Surgical History He has a past surgical history that includes Back surgery (01/01/2022). Family History He family history is not on file. Allergies Iodinated Contrast Media Medications Medications Prior to Admission Medication Sig Dispense Refill Last Dose/Taking acalabrutinib (CALQUENCE) 100 mg tablet Take 1 tablet (100 mg total) by mouth every 12 (twelve) hours. fluticasone propionate (FLONASE) 50 mcg/actuation nasal spray Administer 2 sprays into each nostrildaily as needed for rhinitis. levocetirizine (XYZAL) 5 MG tablet Take 1 tablet (5 mg total) by mouth nightly. multivitamin capsule Take 1 capsule by mouth daily. predniSONE (DELTASONE) 10 MG tablet Take 1 tablet (10 mg total) by mouth daily with breakfast. valACYclovir (VALTREX) 1000 MG tablet Take 1 tablet (1,000 mg total) by mouth daily. Vitals Blood pressure 117/55, pulse 75, temperature 97.3 ??F (36.3 ??C), resp. rate 18, height 1.676 m (5'5.98 ), weight 63.2 kg (139 lb 5.3 oz), SpO2 96%. Physical Exam HENT: Head: Normocephalic. Eyes: Extraocular Movements: Extraocular movements intact. Pupils: Pupils are equal, round, and reactive to light. Pulmonary: Effort: Pulmonary effort is normal. Abdominal: Palpations: Abdomen is soft. Musculoskeletal: General: No swelling or tenderness. Skin: General: Skin is warm and dry. Neurological: Mental Status: He is alert. Comments: Contraction in right hand, right knee is stiff. 5/5 strength in dorsiflexion and left knee extension/flexion. Negative Martin's. Relevant Results No results found for this or any previous visit from the past 2 days. Assessment/Plan 74 year old male with a history of CLL and lower extremity weakness. MRI cervical, thoracic, and lumbar spine reviewed with Dr. Amin. In the lumbar spine there is mild to moderate L3-4 and L4-5 central stenosis, no foraminal stenosis. C4-5 shows moderate central stenosis. No stir changes in the spine. No severe nerve compression in the cervical, thoracic or lumbar spine that would explain his weakness. On the MRI of the brain Dr. Amin notes presence of diffusion restriction and layering in the left occipital horn, could be concerning for ventriculitis. MRI brain with contrast was ordered to evaluate this further, but patient refused the MRI with contrast. Will send sed rate and CRP. No surgical recommendations at this time. Signed: Electronically signed by Kaye Denton PA-C 12/13/24 5:32 PM EDT Cosigned by Jaron Amin MD at 12/15/2024 2:31 PM EDT * Phuong Lewis MD - 12/13/2024 12:55 PM EDTAssociated Order(s): Inpatient consult to Electrophysiology Inpatient consult to Electrophysiology Consult performed by: Phuong Lewis MD Consult ordered by: Maria Guadalupe Lopez MD Reason for consult: [facility] Electrophysiology -Consult Basic Information: Name JOSE Alberto 1950, 74 y.o., male PCP: No primary care provider on file. Admit Date 12/11/2024 Patient Location [id number] Chief Complaint/Consult reason: Possible atrial fibrillation, new onset. History of Present Illness: Corbin Hu is a 74 y.o. male presenting with lower extremity weakness in the course of being treated with chemotherapy for CLL; he started acalabruitinib in October and reports he had onset of leg weakness after starting this medication. Of note, he does have chronic right leg weakness and numbness due to a nerve injury several year ago; he is having worsened weakness to the left leg, whichis new. He reports pain in the left hip which radiates down the left leg. He denies changes to bowel or bladder function. He was initially febrile with mild confusion on admission; he was found to have pneumonia and has been on antibiotics. Neurology has been consulted for abnormal MRI: as per neurology MRI showed small acute infarcts inbilateral occipital lobes, bilateral parietal and right temporal lobe; I reviewed images. Pattern concerning for embolic process. He has a remote history of DVT in and was on Eliquis for a period of time. Currently he takes no anticoagulation or antiplatelet agents. Electrophysiology has been consulted for cardioembolic stroke to rule out AF. Review of Sytems: Complete 10 point ROS Normal or Non-contributory except complaints described in HPI or other sections of this note. Health Status: Allergies Iodinated Contrast Media Home Medications: Prior to Admission medications Medication Sig Start Date End Date Taking? Authorizing Provider acalabrutinib (CALQUENCE) 100 mg tablet Take 1 tablet (100 mg total) by mouth every 12 (twelve) hours. Historical Provider, fluticasone propionate (FLONASE) 50 mcg/actuation nasal spray Administer 2 sprays into each nostrildaily as needed for rhinitis. Historical Provider, levocetirizine (XYZAL) 5 MG tablet Take 1 tablet (5 mg total) by mouth nightly. Historical Provider, multivitamin capsule Take 1 capsule by mouth daily. Historical Provider, predniSONE (DELTASONE) 10 MG tablet Take 1 tablet (10 mg total) by mouth daily with breakfast. Historical Provider, valACYclovir (VALTREX) 1000 MG tablet Take 1 tablet (1,000 mg total) by mouth daily. Historical Provider, Past Medical History: Pt has a past medical history of Anxiety, GERD (gastroesophageal reflux disease), Lymphocytic leukemia (HCC), and Unspecified skin changes. Surgical History: Pt has a past surgical history that includes Back surgery (01/01/2022). Tobacco History Pt reports that he quit smoking about 48 years ago. His smoking use included cigarettes. He startedsmoking about 56 years ago. He has a 8 pack-year smoking history. He does not have any smokeless tobacco history on file. Alcohol History Pt reports that he does not currently use alcohol. Drug Use History Pt reports no history of drug use. Family History family history is not on file. OBJECTIVE Vital ranges lat 24 hours Temp: [97.3 ??F (36.3 ??C)-100.9 ??F (38.3 ??C)] 97.3 ??F (36.3 ??C) Pulse: [62-82] 77 Resp: [18] 18 BP: (110-126)/(54-68) 118/57 Intake and Output 24 hours: Intake/Output Summary (Last 24 hours) at 12/13/2024 1256 Last data filed at 12/13/2024 1000 Gross per 24 hour Intake 270 ml Output -- Net 270 ml Net I&O this admission: Net IO Since Admission: -90 mL [12/13/24 1256] Physical Exam General: Alert and oriented, No acute distress. HENT: Normocephalic, Oral mucosa is moist. Neck: Supple, Non-tender, No carotid bruit, No jugular venous distention. Respiratory: Lungs are clear to auscultation, Respirations are non-labored, Symmetrical chest wall expansion. Cardiovascular: Normal rate, regular rhythm, No murmur, Good pulses equal in all extremities. Gastrointestinal: Soft, Non-distended, Normal bowel sounds. Musculoskeletal: Normal range of motion, Normal strength. Integumentary: Warm, Dry, [place]. Neurologic: Alert, Oriented. Psychiatric: Cooperative, Appropriate mood & affect. Psychiatric: Inpatient Medications Current Facility-Administered Medications Medication Dose Route Frequency Provider Last Rate Last Admin acetaminophen (TYLENOL) tablet 1,000 mg 1,000 mg oral Q6H PRN Aneudy Fitch PA-C 1,000 mg at 12/12/24 1549 cefTRIAXone (ROCEPHIN) 1 g in sodium chloride 0.9 % (NS) 50 mL EFRAIN IVPB 1 g intravenous Q24H [facility] Aneudy Fitch PA-C IVPB Stopped at 12/12/24 2203 cloNIDine (CATAPRES) tablet 0.1 mg 0.1 mg oral Q8H PRN Aneudy Fitch PA-C diphenhydrAMINE (BENADRYL) injection 50 mg 50 mg intravenous PRN Maria Guadalupe Lopez MD docusate sodium (COLACE) capsule 100 mg 100 mg oral BID PRN Maria Guadalupe Lopez MD 100 mg at 12/12/24 1102 doxycycline (VIBRAMYCIN) capsule 100 mg 100 mg oral Q12H Maria Guadalupe Lopez MD 100 mg at 12/13/24 0848 enoxaparin (LOVENOX) syringe 60 mg 1 mg/kg subcutaneous Q12H Maria Guadalupe Lopez MD EPINEPHrine HCl (PF) (ADRENALIN) HYPERSENSITIVITY USE injection 0.3 mg 0.3 mg subcutaneous PRN Maria Guadalupe Lopez MD famotidine (PEPCID) tablet 20 mg 20 mg oral Daily Maria Guadalupe Lopez MD 20 mg at 12/13/24 0848 ferric gluconate (FERRLECIT) 125 mg in sodium chloride 0.9 % (NS) 100 mL infusion 125 mg intravenous Daily Maria Guadalupe Lopez MD IVPB Stopped at 12/13/24 1226 gabapentin (NEURONTIN) capsule 300 mg 300 mg oral Every Night Maria Guadalupe Lopez MD magnesium sulfate IVPB 2 g in sterile water 50 mL (premix) 2 g intravenous Daily PRN Aneudy Fitch PA-C magnesium sulfate IVPB 2 g in sterile water 50 mL (premix) 2 g intravenous BID PRN Aneudy Fitch PA-C melatonin tablet 5 mg 5 mg oral Every Night Aneudy Fitch PA-C 5 mg at 12/12/24 2120 multivitamin (THERAGRAN) tablet 1 tablet 1 tablet oral Daily Maria Guadalupe Lopez MD 1 tablet at 12/13/24 0847 ondansetron (ZOFRAN-ODT) disintegrating tablet 4 mg 4 mg oral Q8H PRN Aneudy Fitch PA-C Or ondansetron (ZOFRAN) injection 4 mg 4 mg intravenous Q8H PRN Aneudy Fitch PA-C oxyCODONE (ROXICODONE) immediate release tablet 5 mg 5 mg oral Q4H PRN Aneudy Fitch PA-C 5 mg at 12/13/24 0453 pantoprazole (PROTONIX) EC tablet 40 mg 40 mg oral Daily Aneudy Fitch PA-C 40 mg at 12/13/24 08 potassium chloride (KLOR-CON) ER tablet 40 mEq 40 mEq oral 4x Daily PRN Aneudy Fitch PA-C predniSONE (DELTASONE) tablet 10 mg 10 mg oral TID with Meals Maria Guadalupe Lopez MD 10 mg at promethazine (PHENERGAN) tablet 25 mg 25 mg oral Q6H PRN Aneudy Fitch PA-C Or promethazine (PHENERGAN) 12.5 mg in sodium chloride 0.9 % (NS) 50 mL IVPB (Immediate Use Only) 12.5mg intravenous Q6H PRN Aneudy Fitch PA-C Saccharomyces boulardii (FLORASTOR) capsule 250 mg 250 mg oral Daily Maria Guadalupe Lopez MD 250 mg at 12/13/24846 sodium chloride flush 10 mL 10 mL intravenous PRN Aneudy Fitch PA-C valACYclovir (VALTREX) tablet 1,000 mg 1,000 mg oral Daily Maria Guadalupe Lopez MD 1,000 mg at Results Review: Labs: WBC Date Value Ref Range Status 12/13/2024 18.6 (H) 4.2 - 9.1 K/??L Final 12/12/2024 16.1 (H) 4.2 - 9.1 K/??L Final 04/21/2023 62.3 (HH) 4.5 - 11.0 K/??L Final Hemoglobin Date Value Ref Range Status 12/13/2024 8.1 (L) 13.7 - 17.5 GM/DL Final 12/12/2024 8.2 (L) 13.7 - 17.5 GM/DL Final 04/21/2023 14.5 13.5 - 17.5 GM/DL Final Platelets Date Value Ref Range Status 12/13/2024 167 140 - 375 K/CU MM Final 12/12/2024 168 140 - 375 K/CU MM Final 04/21/2023 171 140 - 440 K/CU MM Final Creatinine Date Value Ref Range Status 12/13/2024 0.75 0.72 - 1.25 mg/dL Final 12/12/2024 1.02 0.72 - 1.25 mg/dL Final 04/21/2023 1.17 0.70 - 1.30 mg/dL Final BUN Date Value Ref Range Status 12/13/2024 17.4 8.4 - 25.7 mg/dL Final 12/12/2024 18.6 8.4 - 25.7 mg/dL Final 04/21/2023 18 7 - 22 mg/dL Final Potassium Date Value Ref Range Status 12/13/2024 4.0 3.4 - 5.1 meq/L Final 12/12/2024 3.9 3.4 - 5.1 meq/L Final 04/21/2023 4.4 3.5 - 5.1 meq/L Final Sodium Date Value Ref Range Status 12/13/2024 136 136 - 145 meq/L Final 12/12/2024 140 136 - 145 meq/L Final 04/21/2023 142 136 - 146 meq/L Final AST Date Value Ref Range Status 10/12/2022 20 5 - 37 U/L Final ALT Date Value Ref Range Status 10/12/2022 26 12 - 78 U/L Final Alkaline Phosphatase Date Value Ref Range Status 10/12/2022 81 27 - 136 U/L Final TSH Date Value Ref Range Status 12/13/2024 2.613 0.350 - 4.940 uIU/mL Final HgbA1C Date Value Ref Range Status 12/29/2021 5.10 4.20 - 6.30 % Final Comment: Hemoglobin A1C levels are related to mean glucose during the preceeding 2-3 months. Less than 7% demonstrates glycemic control in diabetic patients. INR Date Value Ref Range Status 12/29/2021 1.0 0.9 - 1.1 Final Imaging: MR Brain Without IV Contrast, MR spine lumbar without contrast Narrative: MRI HEAD WITHOUT CONTRAST HISTORY: Lower extremity weakness, history of CLL COMPARISON: None. FINDINGS: Multiplanar MR imaging of the head was performed without contrast. Motion artifact is noted on many of the images. There is age-appropriate atrophy. Scattered foci of increased T2 signal are seen in the bilateral cerebral white matter consistent with mild to moderate chronic ischemic/gliotic changes. There is no evidence of intracranial hemorrhage or mass. The ventricles are within normal limits with respect to size. There is no evidence of shift of the midline structures. No abnormal extra-axial fluid collection is seen. The posterior fossa and brainstem have an unremarkable appearance. On the diffusion weighted images, scattered small foci of restricted diffusion are seen bilaterally consistent with small acute lacunar infarcts. The largest focus measures 5 mm along the posterior aspect of the occipital horn of the left lateral ventricle in the left occipital lobe. Other smaller foci are seen involving the bilateral occipital lobes, the left parietal lobe and the anteromedial right temporal lobe. Normal major vessel vascular flow voids are identified. Mucosal thickening is noted in multiple sinuses. Impression: Mild to moderate chronic ischemic/gliotic changes. Scattered small acute bilateral lacunar infarcts as described. MRI LUMBAR SPINE HISTORY: Bilateral lower extremity weakness. History of CLL. COMPARISON: None FINDINGS: Multiplanar MR imaging of the lumbar spine was performed without contrast. Motion artifact is noted on many of the images. On the sagittal T2-weighted images, disc degeneration is seen at multiple levels. The vertebral alignment is normal. Decreased signal is seen throughout the bone marrow of uncertain significance. There is no evidence of fracture. No bony mass is identified. The conus has an unremarkable appearance. L1-2: An annular bulge is present. There is mild facet arthropathy. No significant canal stenosis or neural foraminal narrowing is identified. L2-3: An annular bulge is present. There is mild facet arthropathy. Mild right neural foraminal narrowing is seen. L3-4: An annular bulge is present. There is bilateral facet arthropathy. A small right foraminal disc protrusion is seen. Moderate right and mild left neural foraminal narrowing is seen. L4-5: An annular bulge is present. Presumed postoperative changes are seen on the right. Moderate bilateral neural foraminal narrowing is seen. L5-S1: An annular bulge is present. There is mild facet arthropathy. Mild right and moderate left neural foraminal narrowing is seen. IMPRESSION: Multilevel degenerative disc disease and spondylosis with bilateral neural foraminal narrowing as described. Diffuse decreased signal throughout the bone marrow worrisome for a diffuse infiltrative process. Images reviewed, interpreted, and dictated by Haider Bond MD MR thoracic spine without contrast, MR spine cervical without IV contrast Narrative: MRI CERVICAL SPINE WITHOUT CONTRAST HISTORY: Lower extremity weakness COMPARISON: None FINDINGS: Multiplanar MR imaging of the cervical spine was performed without contrast. On the sagittal T2 weighted images, disc degeneration is noted at multiple levels. There is mild retrolisthesis of C4 on C5. Mild endplate changes are seen at several levels. There is no evidence of fracture. No bony mass is identified. The cervical spinal cord has an unremarkable appearance, without evidence of mass, edema or syrinx. The cervicomedullary junction is normal. C2-C3: There is no evidence of significant central canal stenosis or neural foraminal narrowing. C3-C4: A small central disc protrusion mildly indents the thecal sac. No significant canal stenosis is identified. There is mild left neural foraminal narrowing. C4-C5: A disc osteophyte complex is present. Moderate bilateral neural foraminal narrowing is seen. Mild central canal stenosis is seen measuring 9 mm AP. C5-C6: A disc osteophyte complex is present. Moderate bilateral neural foraminal narrowing is seen. Mild central canal stenosis is seen measuring 8 mm AP. C6-C7: A disc osteophyte complex is present. There is mild right neural foraminal narrowing. C7-T1: There is no evidence of significant central canal stenosis or neural foraminal narrowing. Impression: Multilevel degenerative disc disease and spondylosis as described. Mild central canal stenosis at C4-5 and C5-6. MRI THORACIC SPINE HISTORY: Lower extremity weakness. History of CLL FINDINGS: Multiplanar MR imaging of the thoracic spine was performed without contrast. Motion artifact is noted on many of the images. On the sagittal T2 weighted images, disc degeneration is seen at multiple levels. The vertebral alignment is normal. There is no evidence of fracture. No bony mass is identified. No significant central canal stenosis is identified. The thoracic spinal cord has an unremarkable appearance, without evidence of mass, edema or syrinx. On the axial images, multilevel mild annular bulges are seen. No focal disc protrusion is identified. No significant central canal stenosis is seen. A small right pleural effusion is noted. IMPRESSION: Multilevel mild degenerative disc disease with multiple disc bulges. No focal disc protrusion or significant central canal stenosis. Images reviewed, interpreted, and dictated by Haider Bond MD XR chest AP portable Narrative: Portable chest HISTORY: Pneumonia FINDINGS: Prior study dated 12/02/2017. There are new patchy infiltrates in the right lung base. Heart and pulmonary vessels are normal. There are no definite acute infiltrates on the left. There are no effusions. Impression: Patchy infiltrate in the right lung base, may represent pneumonia. Problem list: Principal Problem: Weakness Active Problems: CLL (chronic lymphocytic leukemia) (HCC) Pneumonia Hyponatremia Impression and Plan: IMPRESSION: Cardio embolic stroke as per neurology CLL Started new chemotherapy in October - acalabruitinib. Reports worsening weakness since initiation. Pneumonia Hyponatremia PLAN: 12/13/2024 Telemetry reviewed, showed no AF, recommend a 30 day event monitor upon DC. ECHO ordered and is pending. * Alyson Ferguson MD - 12/13/2024 10:30 AM EDTAssociated Order(s): Inpatient consult to Neurology Inpatient consult to Neurology Consult performed by: Alyson Ferguson MD Consult ordered by: Maria Guadalupe Lopez MD Reason for consult: Stroke History of Present Illness: Corbin Hu is a 74 y.o. male presenting with lower extremity weakness in the course of being treated with chemotherapy for CLL; he started acalabruitinib in October and reports he had onset of leg weakness after starting this medication. Of note, he does have chronic right leg weakness and numbness due to a nerve injury several year ago; he is having worsened weakness to the left leg, whichis new. He reports pain in the left hip which radiates down the left leg. He denies changes to bowel or bladder function. Of note, he was initially febrile with mild confusion on admission; he was found to have pneumonia and has been on antibiotics. MRI brain was done during the course of his work up, which shows punctate acute infarcts. Neurologywas asked to evaluate. Patient denies any changes to speech or vision; no arm weakness. He does continue with primarily left leg weakness and pain. He does have a past history of DVT in andwas on Eliquis for a period of time. Currently he takes no anticoagulation or antiplatelet agents. He denies any significant leg swelling to me, though does have pain in both legs. Past Medical History: He has a past medical history of Anxiety, GERD (gastroesophageal reflux disease), Lymphocytic leukemia (HCC), and Unspecified skin changes. Past Surgical History: He has a past surgical history that includes Back surgery. Social History: He reports that he quit smoking about 48 years ago. His smoking use included cigarettes. He startedsmoking about 56 years ago. He has a 8 pack-year smoking history. He does not have any smokeless tobacco history on file. He reports that he does not currently use alcohol. He reports that he does not use drugs. Family History: His family history is not on file. Allergies: Iodinated Contrast Media Medications: Medications Prior to Admission Medication Sig Dispense Refill Last Dose/Taking acalabrutinib (CALQUENCE) 100 mg tablet Take 1 tablet (100 mg total) by mouth every 12 (twelve) hours. fluticasone propionate (FLONASE) 50 mcg/actuation nasal spray Administer 2 sprays into each nostrildaily as needed for rhinitis. levocetirizine (XYZAL) 5 MG tablet Take 1 tablet (5 mg total) by mouth nightly. multivitamin capsule Take 1 capsule by mouth daily. predniSONE (DELTASONE) 10 MG tablet Take 1 tablet (10 mg total) by mouth daily with breakfast. valACYclovir (VALTREX) 1000 MG tablet Take 1 tablet (1,000 mg total) by mouth daily. Review of Systems Musculoskeletal: Positive for arthralgias and back pain. Neurological: Positive for weakness and numbness. All other systems reviewed and are negative. Vitals: Blood pressure 118/57, pulse 77, temperature 97.3 ??F (36.3 ??C), resp. rate 18, height 1.676 m (5'5.98 ), weight 63.2 kg (139 lb 5.3 oz), SpO2 96%. Physical Exam Vitals and nursing note reviewed. Constitutional: Comments: Pt is awake and alert, well oriented in no acute distress; speech is fluent with no dysarthria Eyes: Extraocular Movements: Extraocular movements intact. Pupils: Pupils are equal, round, and reactive to light. Cardiovascular: Rate and Rhythm: Normal rate and regular rhythm. Pulmonary: Effort: Pulmonary effort is normal. Neurological: Comments: CN II-VII intact; visual de are full Motor strength is 5/5 in BUE; 4/5 in BLE, right leg weakness is chronic per patient Sensation intact to LT No ataxia with FTN DTRs are 2+ and symmetric throughout Gait observed to be slow but steady without assistance Relevant Results: Labs reviewed MRI brain- small acute infarcts in bilateral occipital lobes, bilateral parietal and right temporallobe; I reviewed images. Pattern concerning for embolic process Echo/carotid dopplers pending MRI C/T/L spine done showing multilevel DDD and spondylosis with no cord compression; decreased signal throughout bone marrow noted Assessment & Plan Principal Problem: Weakness Active Problems: CLL (chronic lymphocytic leukemia) (HCC) Pneumonia Hyponatremia 74yo M with h/o CLL, prior DVT admitted with lower extremity weakness and mild confusion in settingof sepsis with pneumonia and anemia; he is recently been on chemotherapy for CLL. Workup thus far shows small acute scattered infarcts on MRI brain; clinical significant of this is unclear, unclear if patient is experiencing any symptoms from small strokes. He has been started on aspirin; further workup with echo and carotid dopplers is pending. Given history of DVT will check lower extremity dopplers; recommend to continue to monitor on telemetry for any cardiac arrhythmias such as afib. He may benefit from a cardiac event monitor as an outpatient given embolic appearance of strokes. Neurosurgery is also evaluating due to leg weakness; no significant findings noted on MRI C/T/L spine though given radiating pain in left leg radiculopathy is a possibility. Recommend to continue aspirin; statin not started due to LDL 47 and concern this may worsen weakness. Continue PT/OT. I will follow up pending tests; plan discussed at length with patient and . Electronically signed by Alyson Ferguson MD 12/13/2024 at 10:30 AM * Matt Vargas MD - 12/12/2024 12:25 PM EDTAssociated Order(s): [id number] IP CONSULT TO HEMATOLOGY/ONCOLOGY I met Mr. Hu and his this morning. He has been a patient of Dr. Lomas in [place]. He was diagnosed with CLL in approximately 2006. He was observed for many years. He was treated with right toxin in 2017 followed by Bendamustine and Rituxan which concluded in April 2018. He did well for several years but because of anemia and leukocytosis received 3 weeks of Calquence starting in October of this year. Patient has discontinued that drug. He presents with significant back pain lower extremity weakness. He has had a foot drop and neurologic symptoms of his right lower extremity for some time. He has had fever. He is without other additional complaints PMH NKDA Medications as listed Do not know of other significant surgeries or medical problems. FH: No other family members with malignancy. SH: He is he neither smokes nor drinks. ROS: 14 point review is negative. Examination elderly male no acute distress vitals are stable HEENT exams unremarkable neck supple without adenopathy lungs clear anteriorly heart regular rhythm abdomen I do not appreciate any splenomegaly or other abdominal masses extremities edema she he has muscle changes and neurologic deficiencies in the right lower extremity with some weakness on the left His white blood count 16,000 hemoglobin 8 platelet count 158,000 Impression: Chronic lymphocytic leukemia Neurologic deficiency lower extremities Plan: I agree with doing MRI to ascertain the anatomy of the spine. It would be unlikely to see this from CLL unless he has extra-medullary disease. Will await the results of his x-ray and decide howto proceed from there. I have answered both his and his 's questions Matt Vargas MD 12/11/2024 12:29 PM documented in this encounter Miscellaneous Notes * Plan of Care - Mora Munguia RN - 12/14/2024 2:11 PM EDT Problem: Knowledge Deficit Goal: Patient/family/caregiver demonstrates understanding of disease process, treatment plan, medications, and discharge instructions Description: Complete learning assessment and assess knowledge base. 12/14/2024 1411 by Mora Munguia RN Outcome: Adequate for Discharge 12/14/2024 1313 by Mora Munguia RN Outcome: Progressing Problem: Potential for Falls Goal: Patient will remain free of falls Description: Assess and monitor vitals signs, neurological status including level of consciousness and orientation. Reassess fall risk per hospital policy.Ensure arm band on, uncluttered walking paths in room, adequate room lighting, call light and overbed table within reach, bed in low position, wheels locked, side rails up per policy, and non-skid footwear provided. 12/14/2024 1411 by Mora Munguia RN Outcome: Adequate for Discharge 12/14/2024 1313 by Mora E Nilda, RN Outcome: Progressing Problem: Pain Goal: Patient's pain/discomfort is manageable Description: Assess and monitor patient's pain using appropriate pain scale. Collaborate with interdisciplinary team and initiate plan and interventions as ordered. Re-assess patient's pain level after pain management intervention. 12/14/20241410 by Mora Munguia RN Outcome: Adequate for Discharge 12/14/20241312 by Mora Munguia RN Outcome: Progressing Problem: Safety Goal: Patient will be injury free during hospitalization Description: Assess and monitor vitals signs, neurological status including level of consciousness and orientation. Assess patient's risk for falls and implement fall prevention plan of care and interventions per hospital policy. Ensure arm band on, uncluttered walking paths in room, adequate room lighting, call light and overbed table within reach, bed in low position, wheels locked, side rails up per policy, and non-skid footwear provided. 12/14/20241410 by Mora Munguia RN Outcome: Adequate for Discharge 12/14/20241312 by Mora Munguia RN Outcome: Progressing Problem: Potential for Developing a Blood Clot Goal: Tissue perfusion is adequate - venous Description: Assess and monitor skin color and temperature, skin integrity, pulses, capillary refill, edema, pain in extremities, Homans' sign, labs (D- dimer), and diagnostic tests (ultrasound, CT scan, VQ scan). Monitor for signs and symptoms of deep vein thrombosis (swelling of calf/thigh, redness, pain, tenderness). Monitor for signs and symptoms of pulmonary embolism (dyspnea, tachypnea, tachycardia). Collaborate with interdisciplinary team and initiate plans and interventions as needed 12/14/20241410 by Mora Munguia RN Outcome: Adequate for Discharge 12/14/20241312 by Mora Munguia RN Outcome: Progressing Problem: Daily Care Goal: Daily care needs are met Description: Assess and monitor ability to perform self care and identify potential discharge needs. 12/14/20241410 by Mora Munguia RN Outcome: Adequate for Discharge 12/14/20241312 by Mora Munguia RN Outcome: Progressing Problem: Potential for Infection Goal: Remains infection free Description: Assess and monitor vital signs, skin (color, moisture, integrity, turgor), respiratorystatus, urinary and gastrointestinal status, and labs (WBC, cultures). Administer antibiotics and antipyretics as ordered. Ensure aseptic care of all intravenous lines, invasive tubes/drains and wounds. Monitor for signs and symptoms of infection (redness, warmth, discharge, increased body temperature). Wash hands properly before and after each patient care activity. Follow isolation guidelines per hospital protocol/policy. Collaborate with interdisciplinary team and initiate plan and interventions as ordered. 12/14/20241410 by Mora Munguia RN Outcome: Adequate for Discharge 12/14/20241312 by Mora Munguia RN Outcome: Progressing Problem: Psychosocial Needs Goal: Demonstrates ability to cope with hospitalization/illness Description: Assess and monitor patients ability to cope with his/her illness. 12/14/20241410 by Mora Munguia RN Outcome: Adequate for Discharge 12/14/20241312 by Mora Munguia RN Outcome: Progressing Goal: Collaborate with patient/family/caregiver to identify patient specific goals for this hospitalization 12/14/20241410 by Mora Munguia RN Outcome: Adequate for Discharge 12/14/20241312 by Mora Munguia RN Outcome: Progressing Problem: Anxiety Goal: Anxiety is at manageable level Description: Assess and monitor patient's anxiety level. Monitor for signs and symptoms of anxiety both physical and emotional (heart palpitations, chest pain, shortness of breath, headaches, nausea,feeling jumpy, restlessness, irritable, apprehensive). Collaborate with interdisciplinary team and initiate plan and interventions as ordered. 12/14/20241410 by Mora Munguia RN Outcome: Adequate for Discharge 12/14/20241312 by Mora Munguia RN Outcome: Progressing Problem: Inadequate Coping Goal: Demonstrates ability to cope effectively Description: Patient is able to verbalize feelings related to emotional state. 12/14/20241410 by Mora Munguia RN Outcome: Adequate for Discharge 12/14/20241312 by Mora Munguia RN Outcome: Progressing Goal: Verbalizes adaptive coping mechanisms Description: Able to verbalize adaptive coping mechanisms such as physical activity, distraction, and deep breathing exercises. 12/14/20241410 by Mora Munguia RN Outcome: Adequate for Discharge 12/14/2024 1313 by Mora Munguia RN Outcome: Progressing Goal: Verbalizes personal strengths Description: Spend time with the patient using empathy and active listening skills. 12/14/2024 141 by Mora Munguia RN Outcome: Adequate for Discharge 12/14/2024 1313 by Mora Munguia RN Outcome: Progressing Problem: Progressive Mobility Goal: BMAT Level 1 - With full mechanical lifting assistance: 12/14/2024 141 by Mora Munguia RN Outcome: Adequate for Discharge 12/14/2024 1313 by Mora Munguia RN Outcome: Progressing Goal: BMAT Level 2 - With 2-person and/or mechanical lifting assistance: 12/14/2024 141 by Mora Munguia RN Outcome: Adequate for Discharge 12/14/2024 1313 by Mora Munguia RN Outcome: Progressing Goal: BMAT Level 3 - With 1 to 2-person and/or mechanical lifting assistance: 12/14/2024 141 by Mora Munguia RN Outcome: Adequate for Discharge 12/14/2024 1313 by Mora Munguia RN Outcome: Progressing Goal: BMAT Level 4 - With 1-person assistance or mobility aid as needed (walker, cane, crutches): 12/14/2024 141 by Mora Munguia RN Outcome: Adequate for Discharge 12/14/2024 1313 by Mora Munguia RN Outcome: Progressing Problem: Discharge Barriers Goal: Patient's discharge needs are met Description: Collaborate with interdisciplinary team and initiate plans and interventions as needed. 12/14/2024 141 by Mora Munguia RN Outcome: Adequate for Discharge 12/14/2024 1313 by Mora Munguia RN Outcome: Progressing Problem: Insufficient Fluid Volume Goal: Fluid and electrolyte balance are achieved/maintained Description: Assess and monitor vital signs (orthostatic vitals if applicable), fluid intake and output, urine color, labs, skin turgor, mucous membranes, mental status, and gastrointestinal system for nausea, vomiting and diarrhea. Monitor for signs and symptoms of hypovolemia (tachycardia, rapid breathing, decreased urine output, postural hypotension, confusion, syncope). Collaborate with interdisciplinary team and initiate plan and interventions as ordered. 12/14/20241410 by Mora Munguia RN Outcome: Adequate for Discharge 12/14/20241312 by Mora Munguia RN Outcome: Progressing Problem: Infection Goal: Signs and symptoms of infections are decreased or avoided Description: Assess and monitor patient for signs and symptoms of infection such as redness, warmth, discharge, and increased body temperature. Monitor and report abnormal lab values (ex-CBC and diff, serum protein, serum albumin, and cultures). Wash hands properly before and after each patient care activity. Utilize standard precautions and use personal protective equipment (PPE) as indicated. Ensure aseptic care of all intravenous lines and invasive tubes/drains. Obtain immunization and exposure to communicable diseases history. Collaborate with interdisciplinary team and initiate plan and interventions as ordered. 12/14/20241410 by Mora Munguia RN Outcome: Adequate for Discharge 12/14/20241312 by Mora Munguia RN Outcome: Progressing Problem: Insufficient Nutritional Intake Goal: Patient's nutritional intake is adequate Description: Assess and monitor food intake and supplements, patient food preferences, nausea, vomiting, labs, oral cavity (gums, teeth, tongue, mucosa), proper denture fit, and cultural beliefs. Monitor for signs of hypoglycemia and hyperglycemia. Collaborate with interdisciplinary team and initiate plan and interventions as ordered. 12/14/20241410 by Mora Munguia RN Outcome: Adequate for Discharge 12/14/20241312 by Mora Munguia RN Outcome: Progressing Goal: Mobility/activity is maintained at optimum level for patient Description: Assess and monitor patient barriers to mobility and need for assistive/adaptive devices. Assess patient's emotional response to limitations. Collaborate with interdisciplinary team and initiate plans and interventions as ordered. 12/14/20241410 by Mora Munguia RN Outcome: Adequate for Discharge 12/14/20241312 by Mora Munguia RN Outcome: Progressing Problem: Risk for Falls Goal: No falls during hospitalization Description: Patient will not fall during hospitalization. 12/14/20241410 by Mora Munguia RN Outcome: Adequate for Discharge 12/14/20241312 by Mora Munguia RN Outcome: Progressing Problem: Knowledge Deficit Goal: Knowledge - personal safety Description: Patient will verbalize understanding of fall prevention. 12/14/2024 1411 by Mora Munguia RN Outcome: Adequate for Discharge 12/14/2024 1313 by Mora Munguia RN Outcome: Progressing * Plan of Care - Mora Munguia RN - 12/14/2024 1:14 PM EDT Problem: Knowledge Deficit Goal: Patient/family/caregiver demonstrates understanding of disease process, treatment plan, medications, and discharge instructions Description: Complete learning assessment and assess knowledge base. Outcome: Progressing Problem: Potential for Falls Goal: Patient will remain free of falls Description: Assess and monitor vitals signs, neurological status including level of consciousness and orientation. Reassess fall risk per hospital policy.Ensure arm band on, uncluttered walking paths in room, adequate room lighting, call light and overbed table within reach, bed in low position, wheels locked, side rails up per policy, and non-skid footwear provided. Outcome: Progressing Problem: Pain Goal: Patient's pain/discomfort is manageable Description: Assess and monitor patient's pain using appropriate pain scale. Collaborate with interdisciplinary team and initiate plan and interventions as ordered. Re-assess patient's pain level after pain management intervention. Outcome: Progressing Problem: Safety Goal: Patient will be injury free during hospitalization Description: Assess and monitor vitals signs, neurological status including level of consciousness and orientation. Assess patient's risk for falls and implement fall prevention plan of care and interventions per hospital policy. Ensure arm band on, uncluttered walking paths in room, adequate room lighting, call light and overbed table within reach, bed in low position, wheels locked, side rails up per policy, and non-skid footwear provided. Outcome: Progressing Problem: Potential for Developing a Blood Clot Goal: Tissue perfusion is adequate - venous Description: Assess and monitor skin color and temperature, skin integrity, pulses, capillary refill, edema, pain in extremities, Homans' sign, labs (D- dimer), and diagnostic tests (ultrasound, CT scan, VQ scan). Monitor for signs and symptoms of deep vein thrombosis (swelling of calf/thigh, redness, pain, tenderness). Monitor for signs and symptoms of pulmonary embolism (dyspnea, tachypnea, tachycardia). Collaborate with interdisciplinary team and initiate plans and interventions as needed Outcome: Progressing Problem: Daily Care Goal: Daily care needs are met Description: Assess and monitor ability to perform self care and identify potential discharge needs. Outcome: Progressing Problem: Potential for Infection Goal: Remains infection free Description: Assess and monitor vital signs, skin (color, moisture, integrity, turgor), respiratorystatus, urinary and gastrointestinal status, and labs (WBC, cultures). Administer antibiotics and antipyretics as ordered. Ensure aseptic care of all intravenous lines, invasive tubes/drains and wounds. Monitor for signs and symptoms of infection (redness, warmth, discharge, increased body temperature). Wash hands properly before and after each patient care activity. Follow isolation guidelines per hospital protocol/policy. Collaborate with interdisciplinary team and initiate plan and interventions as ordered. Outcome: Progressing Problem: Psychosocial Needs Goal: Demonstrates ability to cope with hospitalization/illness Description: Assess and monitor patients ability to cope with his/her illness. Outcome: Progressing Goal: Collaborate with patient/family/caregiver to identify patient specific goals for this hospitalization Outcome: Progressing Problem: Anxiety Goal: Anxiety is at manageable level Description: Assess and monitor patient's anxiety level. Monitor for signs and symptoms of anxiety both physical and emotional (heart palpitations, chest pain, shortness of breath, headaches, nausea,feeling jumpy, restlessness, irritable, apprehensive). Collaborate with interdisciplinary team and initiate plan and interventions as ordered. Outcome: Progressing Problem: Inadequate Coping Goal: Demonstrates ability to cope effectively Description: Patient is able to verbalize feelings related to emotional state. Outcome: Progressing Goal: Verbalizes adaptive coping mechanisms Description: Able to verbalize adaptive coping mechanisms such as physical activity, distraction, and deep breathing exercises. Outcome: Progressing Goal: Verbalizes personal strengths Description: Spend time with the patient using empathy and active listening skills. Outcome: Progressing Problem: Progressive Mobility Goal: BMAT Level 1 - With full mechanical lifting assistance: Outcome: Progressing Goal: BMAT Level 2 - With 2-person and/or mechanical lifting assistance: Outcome: Progressing Goal: BMAT Level 3 - With 1 to 2-person and/or mechanical lifting assistance: Outcome: Progressing Goal: BMAT Level 4 - With 1-person assistance or mobility aid as needed (walker, cane, crutches): Outcome: Progressing Problem: Discharge Barriers Goal: Patient's discharge needs are met Description: Collaborate with interdisciplinary team and initiate plans and interventions as needed. Outcome: Progressing Problem: Insufficient Fluid Volume Goal: Fluid and electrolyte balance are achieved/maintained Description: Assess and monitor vital signs (orthostatic vitals if applicable), fluid intake and output, urine color, labs, skin turgor, mucous membranes, mental status, and gastrointestinal system for nausea, vomiting and diarrhea. Monitor for signs and symptoms of hypovolemia (tachycardia, rapid breathing, decreased urine output, postural hypotension, confusion, syncope). Collaborate with interdisciplinary team and initiate plan and interventions as ordered. Outcome: Progressing Problem: Infection Goal: Signs and symptoms of infections are decreased or avoided Description: Assess and monitor patient for signs and symptoms of infection such as redness, warmth, discharge, and increased body temperature. Monitor and report abnormal lab values (ex-CBC and diff, serum protein, serum albumin, and cultures). Wash hands properly before and after each patient care activity. Utilize standard precautions and use personal protective equipment (PPE) as indicated. Ensure aseptic care of all intravenous lines and invasive tubes/drains. Obtain immunization and exposure to communicable diseases history. Collaborate with interdisciplinary team and initiate plan and interventions as ordered. Outcome: Progressing Problem: Insufficient Nutritional Intake Goal: Patient's nutritional intake is adequate Description: Assess and monitor food intake and supplements, patient food preferences, nausea, vomiting, labs, oral cavity (gums, teeth, tongue, mucosa), proper denture fit, and cultural beliefs. Monitor for signs of hypoglycemia and hyperglycemia. Collaborate with interdisciplinary team and initiate plan and interventions as ordered. Outcome: Progressing Goal: Mobility/activity is maintained at optimum level for patient Description: Assess and monitor patient barriers to mobility and need for assistive/adaptive devices. Assess patient's emotional response to limitations. Collaborate with interdisciplinary team and initiate plans and interventions as ordered. Outcome: Progressing Problem: Risk for Falls Goal: No falls during hospitalization Description: Patient will not fall during hospitalization. Outcome: Progressing Problem: Knowledge Deficit Goal: Knowledge - personal safety Description: Patient will verbalize understanding of fall prevention. Outcome: Progressing * Plan of Care - Milvia Price RN - 12/14/2024 5:22 AM EDT Problem: Knowledge Deficit Goal: Patient/family/caregiver demonstrates understanding of disease process, treatment plan, medications, and discharge instructions Description: Complete learning assessment and assess knowledge base. Outcome: Progressing Problem: Potential for Falls Goal: Patient will remain free of falls Description: Assess and monitor vitals signs, neurological status including level of consciousness and orientation. Reassess fall risk per hospital policy.Ensure arm band on, uncluttered walking paths in room, adequate room lighting, call light and overbed table within reach, bed in low position, wheels locked, side rails up per policy, and non-skid footwear provided. Outcome: Progressing * Plan of Care - Samantha Dias RN - 12/13/2024 6:17 PM EDT Problem: Knowledge Deficit Goal: Patient/family/caregiver demonstrates understanding of disease process, treatment plan, medications, and discharge instructions Description: Complete learning assessment and assess knowledge base. Outcome: Not Progressing Problem: Potential for Falls Goal: Patient will remain free of falls Description: Assess and monitor vitals signs, neurological status including level of consciousness and orientation. Reassess fall risk per hospital policy.Ensure arm band on, uncluttered walking paths in room, adequate room lighting, call light and overbed table within reach, bed in low position, wheels locked, side rails up per policy, and non-skid footwear provided. Outcome: Progressing * Plan of Care - Casey Fitzpatrick RN - 12/11/2024 5:57 PM EDT Problem: Knowledge Deficit Goal: Patient/family/caregiver demonstrates understanding of disease process, treatment plan, medications, and discharge instructions Description: Complete learning assessment and assess knowledge base. Outcome: Progressing Problem: Potential for Falls Goal: Patient will remain free of falls Description: Assess and monitor vitals signs, neurological status including level of consciousness and orientation. Reassess fall risk per hospital policy.Ensure arm band on, uncluttered walking paths in room, adequate room lighting, call light and overbed table within reach, bed in low position, wheels locked, side rails up per policy, and non-skid footwear provided. Outcome: Progressing documented in this encounter Plan of Treatment Upcoming Encounters Date Type Department Care Team (Late st Contact Info) Description 01/28/2025 9:45 AM EDT Office Visit [facility] Electrophysiology [address] [place] [address] [place] [address] [place] [address] [address] [place] [address] documented as of this encounter Procedures Procedure Name Priority Date/Time Associated Diagnosis Comments CBC W/ AUTO DIFF Routine 12/14/2024 5:35 AM EDT MANUAL DIFFERENTIAL Routine 12/14/2024 5 :35 AM EDT BASIC METABOLIC PANEL Routine 12/14/2024 5:35 AM EDT SEDIMENTATION RATE Routine 12/13/2024 6: 09 PM EDT ECHO COMPLETE (DOPPLER / COLOR) WO CONTRAST Routine 12/13/2024 1:08 PM EDT US DOPPLER VENOUS LEGS BILATERAL Routine 12/13/2024 10:00 AM EDT US CAROTID BLOOD FLOW BILATERAL Routine 12/13/2024 10:00 AM EDT CBC W/ AUTO DIFF Routine 12/13/2024 5:12 AM EDT MANUAL DIFFERENTIAL Routine 12/13/2024 5 :12 AM EDT C-REACTIVE PROTEIN Add-On 12/13/2024 5: 12 AM EDT VITAMIN D, 25-HYDROXY Routine 12/13/2024 5:12 AM EDT TSH Routine 12/13/2024 5:12 AM EDT MAGNESIUM Add-On 12/13/2024 5:12 AM EDT LIPID PANEL Add-On 12/13/2024 5:12 AM EDT BASIC METABOLIC PANEL Routine 12/13/2024 5:12 AM EDT MR BRAIN WITHOUT IV CONTRAST Routine 12/12/2024 6:43 PM EDT MR LUMBAR SPINE WITHOUT IV CONTRAST Routine 12/12/2024 6:29 PM EDT MR THORACIC SPINE WITHOUT IV CONTRAST Routine 12/12/2024 6:16 PM EDT MR CERVICAL SPINE WITHOUT IV CONTRAST Routine 12/12/2024 6:10 PM EDT STREP PNEUMONIAE URINE ANTIGEN Routine 12/12/2024 11:48 AM EDT LEGIONELLA ANTIGEN, URINE Routine 12/12/2024 11:48 AM EDT RESPIRATORY PANEL Routine 12/12/2024 10: 27 AM EDT MRSA SCREEN Routine 12/12/2024 10:27 AM EDT XR CHEST AP PORTABLE Routine 12/12/2024 9:10 AM EDT CBC HEMOGRAM (SJ-BKR) Routine 12/12/2024 3:51 AM EDT IRON AND TIBC Add-On 12/12/2024 3:51 AM EDT FERRITIN Add-On 12/12/2024 3:51 AM EDT VITAMIN B12 Add-On 12/12/2024 3:51 AM EDT BASIC METABOLIC PANEL Routine 12/12/2024 3:51 AM EDT documented in this encounter Results * (ABNORMAL) Manual Differential (12/14/2024 5:35 AM EDT) Pathologist [facility] Total Counted 100 12/14/2024 8:02 AM EDT [facility] % Neutros (manual) 13(L) 50 - 65 % 12/14/2024 8:02 AM EDT [facility] % Lymphs (manual) 86(H) 24 - 44 % 025 8:02 AM EDT [facility] % Monos (manual) 1(L) 4 - 5 % 12/15/19 25 8:02 AM EDT [facility] RBC Morphology abnormal(A) Normal 8:02 AM EDT [facility] Platelet Estimate Adequate Adequate 025 8:02 AM EDT [facility] Anisocytosis 1+ 12/14/2024 8:02 AM EDT [facility] Hypochromia 1+ 12/14/2024 8:02 AM EDT [facility] Polychromasia 1+ 12/14/2024 8:02 AM EDT [facility] Smudge Cells Present 12/14/2024 8:02 AM EDT [facility] Macrocytes 1+ 12/14/2024 8:02 AM EDT [facility] ANC# 2.89 K/ L 12/14/2024 8:02 AM EDT [facility] Blood Venipuncture / Unknown 12/14/2024 5:35 AM EDT 12/14/2024 6:05 AM EDT us Matt Vargas MD LAB BLOOD ORDERABLES Final Res ult [facility] [address] [phone] * (ABNORMAL) CBC with automated diff (12/14/2024 5:35 AM EDT) WBC 22.2(H) 4.2 - 9.1 K/ L 12/14/2024 6:17 AM EDT [facility] RBC 2.63(L) 4.63 - 6.08 M/ L 12/14/2024 6:17 AM EDT [facility] Hemoglobin 8.2(L) 13.7 - 17.5 GM/DL 12/14/2024 6:17 AM T [facility] Hematocrit 25.9(L) 40.1 - 51.0 % 12/14/2024 6:17 AM [facility] MCV 99(H) 79 - 92 fL 12/14/2024 6:17 AM [facility] MCH 31.2 25.7 - 32.2 pg 12/14/2024 6:17 AM [facility] MCHC 31.7(L) 32.3 - 36.5 GM/DL 12/14/2024 6:17 AM [facility] RDW 15.0(H) 11.6 - 14.4 % 12/14/2024 6:17 AM [facility] Platelets 177 140 - 375 K/CU MM 12/14/2024 6:17 AM [facility] MPV 9.9 9.4 - 12.4 fL 12/14/2024 6:17 AM [facility] NRBC Absolute <0.01 0 - 0.012 K/ul 12/14/2024 6:17 AM [facility] Blood Venipuncture / Unknown 12/14/2024 5:35 AM EDT 12/14/2024 6:05 AM EDT Narrative [facility] - 12/14/2024 6:17 AM EDT When CBC w/ Auto Diff is ordered the lab will add a Manual Differential as a quality check at no additional charge if: Lymphocytes greater than seventy five percent with normal or increased WBC Monocytes greater than Fifteen percent Basophil greater than four percent Bands >10% or several immature myeloids are seen on scan Blast? Flag noted Atypical Lymph flag noted us Matt Vargas MD LAB BLOOD ORDERABLES Final Res ult Performing Organization Address [facility]/ZIP Co de Phone Number [facility] [address] [phone] * (ABNORMAL) Basic Metabolic Panel (12/14/2024 5:35 AM EDT) Sodium 142 136 - 145 meq/L 12/14/2024 6:48 AM EDT [facility] Potassium 3.9 3.4 - 5.1 meq/L 12/14/2024 6:48 AM EDT [facility] CO2 25 22 - 29 meq/L 12/14/2024 6:48 AM EDT [facility] Chloride 108 98 - 112 meq/L 12/14/2024 6:48 AM EDT [facility] Glucose 120(H) 82 - 115 mg/dL 12/14/2024 6:48 AM EDT [facility] BUN 14.4 8.4 - 25.7 mg/dL 12/14/2024 6:48 AM EDT [facility] Creatinine 0.68(L) 0.72 - 1.25 mg/dL 12/14/2024 6:48 AM EDT [facility] BUN/Creatinine 21(H) 8 - 20 12/14/2024 6:48 AM EDT [facility] Calcium 7.7(L) 8.4 - 10.2 mg/dL 12/14/2024 6:48 AM EDT [facility] Anion Gap 13(H) 4 - 12 12/14/2024 6:48 AM EDT [facility] eGFR (mL/min/1.73m2) 96 >=60 mL/min/1.7 3m2 12/14/2024 6:48 AM EDT [facility] Osmolality Calc 284.9 mOsm/kg 6:48 AM EDT [facility] Blood Venipuncture / Unknown 12/14/2024 5:35 AM EDT 12/14/2024 6:18 AM EDT us Maria Guadalupe Lopez MD LAB BLOOD ORDERABLES Final Re sult [facility] [address] [phone] * Sedimentation rate (12/13/2024 6:09 PM EDT) Sed Rate 10 0 - 20 mm/HR 12/13/2024 6:24 PM EDT [facility] Blood Venipuncture / Unknown 12/13/2024 6:09 PM EDT 12/13/2024 6:20 PM EDT us Jaron Amin MD LAB BLOOD ORDERABLES Final Resul t [facility] [address] [phone] * ECHO COMPLETE (DOPPLER / COLOR) WO CONTRAST (12/13/2024 1:08 PM EDT) Anatomical Region Laterality Modality Heart Vascular Ultraso und 12/13/2024 12:1 1 PM EDT Narrative 12/13/2024 11:34 PM EDT TRANSTHORACIC ECHOCARDIOGRAPHY REPORT Demographics Patient Name: SANDIE KOROMA : 1950 Age: 74 year(s) Corporate ID Number: [id number] Gender Male 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 Patient Status: Routine IP Study Location: PortableTechnical Quality: Adequate visualization History/Tech Notes: Indication: other general signs and symptoms R68.89 Impression: ######################################## Normal sized left ventricle. Normal left ventricular wall thickness. Visually estimated ejection fraction 60% +/- 5%. Abnormal systolic strain pattern. Indeterminate diastolic function. Structurally normal mitral valve. Moderate to severe (3+) mitral regurgitation. PISA ERO: 0.3 cm2. Calcified aortic valve leaflets. Moderate aortic stenosis. Peak/Mean P mmHg/22 mmHg. Moderate aortic regurgitation. Moderate aortic regurgitation. Severely abnormal left atrial volume index 65 ml/m^2. Negative bubble study for interatrial shunt. ######################################## Measurements Summary: LVEDd: 4.91 cm LVESd: 3.23 cm IVSEd: 0.75 cm AO Root:2.99 cm LVPWd: 1.27 cm Contractility Score Normal Left Ventricular contractility was noted. LV regional wall motion: (0-Not visualized 1-Normal 2-Hypokinesis 3-Akinesis 4-Dyskinesis 5-Aneurysm) Left Ventricle Peak E-wave: 1.63 Peak A-wave: 1.15 m/s E/A ratio: 1.42 m/s Volume atjqwqrzq279.52 LV length: 8.99 cm ml Volume xoijldvh74.92 ml LVOT diameter: 2.03 cm Normal sized left ventricle. Normal left ventricular wall thickness. Visually estimated ejection fraction 60% +/- 5%. Abnormal systolic strain pattern. Indeterminate diastolic function. No left ventricular masses or thrombi. Right Ventricle Diastolic dimension: 4.15 RV systolic pressure: 43.96 mmHg cm Normal sized right ventricle. Normal TAPSE c/w normal right ventricular function Left Atrium LA dimension: 4.6 cm LA volume:110.47 ml LA/Aorta: 1.54 Severely abnormal left atrial volume index 65 ml/m^2. Negative bubble study for interatrial shunt. Intact atrial septum. No atrial mass or thrombus. Right Atrium Normal sized right atrium. Negative bubble study for interatrial shunt. Intact atrial septum. No atrial mass or thrombus. Mitral Valve Deceleration time: 301.81 MR velocity: 5.7 msec m/s MR VTI: 186.64 cm Structurally normal mitral valve. Moderate to severe (3+) mitral regurgitation. PISA ERO: 0.3 cm2. No mitral stenosis. No masses or vegetations seen. Aortic Valve AI P1/2t: Area continuity: Peak velocity: 3.57 m/s 305.78 msec 2.06 cm^2 Peak gradient: 50.99 mmHg AV VTI: 73.29 Mean velocity: 2.16 Mean gradient: 22.41 mmHg cm m/s Deceleration time: 1054.4 LVOT VTI: 46.74 msec cm Three cusped aortic valve Calcified aortic valve leaflets. Moderate aortic regurgitation. Moderate aortic stenosis. Peak/Mean P mmHg/22 mmHg. No masses or vegetations seen. Tricuspid Valve TR velocity: 3 m/s TR gradient: 35.39009 mmHg Estimated RAP: 8 mmHg RVSP: 43.96 mmHg Structurally normal tricuspid valve. Mild (1+) tricuspid regurgitation. Mild pulmonary hypertension. No tricuspid stenosis. No masses or vegetations seen. Pulmonic Valve Acceleration time: 129.4 msec PASP: 43.96 mmHg Structurally normal pulmonic valve. Trace pulmonic regurgitation. No pulmonic stenosis. No masses or vegetations seen. Great Vessels Aorta Aortic Root: 2.99 cm LVOT Diameter: 2.03 cm Visualized thoracic aorta is normal. Normal aortic root. No evidence of dissection. IVC with no inspiratory collapse. Borderline elevated central venous pressure (8-12mmHg). Pericardium / Pleura Trace pericardial effusion. 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 Patient Status: Routine IP [facility] Adequate visualization History/Tech Notes: Indication: other general signs and symptoms R68.89 Impression: ######################################## Normal sized left ventricle. Normal left ventricular wall thickness. Visually estimated ejection fraction 60% +/- 5%. Abnormal systolicstrain pattern. Indeterminate diastolic function. Structurally normal mitral valve. Moderate to severe (3+) mitral regurgitation. PISA ERO: 0.3 cm2. Calcified aortic valve leaflets. Moderate aortic stenosis. Peak/MeanP mmHg/22 mmHg. Moderate aortic regurgitation. Moderate aortic regurgitation. Severely abnormal left atrial volume index 65 ml/m^2. Negative bubble study for interatrial shunt. ######################################## Measurements Summary: LVEDd: 4.91 cm LVESd: 3.23 cm IVSEd: 0.75 cm AO Root:2.99 cm LVPWd: 1.27 cm Contractility Score Normal Left Ventricular contractility was noted. LV regional wall motion: (0-Not visualized 1-Normal 2-Hypokinesis 3-Akinesis 4-Dyskinesis 5-Aneurysm) Left Ventricle Peak E-wave: 1.63 Peak A-wave: 1.15 m/s E/A ratio: 1.42 m/s Volume nuzfwbzsv215.52 LV length: 8.99 cm ml Volume xhkaspjg16.92 ml LVOT diameter: 2.03 cm Normal sized left ventricle. Normal left ventricular wall thickness. Visually estimated ejection fraction 60% +/- 5%. Abnormal systolic strain pattern. Indeterminate diastolic function. No left ventricular masses or thrombi. Right Ventricle Diastolic dimension: 4.15 RV systolic pressure: 43.96 mmHg cm Normal sized right ventricle. Normal TAPSE c/w normal right ventricular function Left Atrium LA dimension: 4.6 cm LA volume:110.47 ml LA/Aorta: 1.54 Severely abnormal left atrial volume index 65 ml/m^2. Negative bubble study for interatrial shunt. Intact atrial septum. No atrial mass or thrombus. Right Atrium Normal sized right atrium. Negative bubble study for interatrial shunt. Intact atrial septum. No atrial mass or thrombus. Mitral Valve Deceleration time: 301.81 MR velocity: 5.7 msec m/s MR VTI: 186.64 cm Structurally normal mitral valve. Moderate to severe (3+) mitral regurgitation. PISA ERO: 0.3 cm2. No mitral stenosis. No masses or vegetations seen. Aortic Valve AI P1/2t: Area continuity: Peak velocity: 3.57 m/s 305.78 msec 2.06 cm^2 Peak gradient: 50.99 mmHg AV VTI: 73.29 Mean velocity: 2.16 Mean gradient: 22.41 mmHg cm m/s Deceleration time: 1054.4 LVOT VTI: 46.74 msec cm Three cusped aortic valve Calcified aortic valve leaflets. Moderate aortic regurgitation. Moderate aortic stenosis. Peak/Mean P mmHg/22 mmHg. No masses or vegetations seen. Tricuspid Valve TR velocity: 3 m/s TR gradient: 35.30141 mmHg Estimated RAP: 8 mmHg RVSP: 43.96 mmHg Structurally normal tricuspid valve. Mild (1+) tricuspid regurgitation. Mild pulmonary hypertension. No tricuspid stenosis. No masses or vegetations seen. Pulmonic Valve Acceleration time: 129.4 msec PASP: 43.96 mmHg Structurally normal pulmonic valve. Trace pulmonic regurgitation. No pulmonic stenosis. No masses or vegetations seen. Great Vessels Aorta Aortic Root: 2.99 cm LVOT Diameter: 2.03 cm Visualized thoracic aorta is normal. Normal aortic root. No evidence of dissection. IVC with no inspiratory collapse. Borderline elevated central venous pressure (8-12mmHg). Pericardium / Pleura Trace pericardial effusion. us Maria Guadalupe Lopez MD CV ECHO ORDERABLES Final Resu lt * US DOPPLER VENOUS LEGS BILATERAL (12/13/2024 10:00 AM EDT) Anatomical Region Laterality Modality Lower Extremity Vascular Ultraso und 12/13/2024 10:0 0 AM EDT Narrative 12/13/2024 11:20 PM EDT Vascular Lower Extremities DVT Study Procedure Demographics Patient Name SANDIE SMITH Age 74 [place] Patient Number [id number] Gender Male Race Ethnicity Corporate ID [id number] Height 65 Date of 1950 Weight 139 Accession Number [id number] BSA 1.69 m^2 Room Number 405 BMI 23.13 kg/m^2 Referring Alyson Ferguson MD Interpreting BEBETO WALTER MD Physician Physician Senior Linux [employer] Engineer Rosy Guido T Procedure Type of Study: Veins: Venous Duplex, Venous Duplex Legs, Lower Extremities DVT Study, US DOPPLER VENOUS LEGS BILATERAL. Impressions Summary INDICATION: Personal history of DVT Z86.718 . ############################### BILATERAL: No evidence of deep venous thrombosis (DVT) or superficial venous thrombosis. Consistent pulsatility visualized in veins consistent with elevated central venous pressure. ############################### Patient Status:Inpatient . Study Location:Portable. Technical Quality:Good visualization. Velocities are measured in cm/s ; Diameters are measured in mm Right Lower Extremities DVT Study Measurements Right 2D Measurements + + + + + !Location !Visualized !Compressibility !Thrombosis ! + + + + + !GSV Thigh !Yes !Yes !None ! + + + + + !Common Femoral !Yes !Yes !None ! + + + + + !Deep Femoral !Yes !Yes !None ! + + + + + !Prox Femoral !Yes !Yes !None ! + + + + + !Mid Femoral !Yes !Yes !None ! + + + + + !Dist Femoral !Yes !Yes !None ! + + + + + !Popliteal !Yes !Yes !None ! + + + + + !PTV !Yes !Yes !None ! + + + + + !Peroneal !Yes !Yes !None ! + + + + + Right Doppler Measurements + + +------+ + !Location !Signal !Reflux!Reflux (sec) ! + + +------+ + !Common Femoral !Spontaneous Pulsatile ! ! ! + + +------+ + !Prox Femoral !Spontaneous Pulsatile ! ! ! + + +------+ + !Deep Femoral !Spontaneous Pulsatile ! ! ! + + +------+ + !Popliteal !Spontaneous Pulsatile ! ! ! + + +------+ + Left Lower Extremities DVT Study Measurements Left 2D Measurements + + + + + !Location !Visualized !Compressibility !Thrombosis ! + + + + + !GSV Thigh !Yes !Yes !None ! + + + + + !Common Femoral !Yes !Yes !None ! + + + + + !Deep Femoral !Yes !Yes !None ! + + + + + !Prox Femoral !Yes !Yes !None ! + + + + + !Mid Femoral !Yes !Yes !None ! + + + + + !Dist Femoral !Yes !Yes !None ! + + + + + !Popliteal !Yes !Yes !None ! + + + + + !PTV !Yes !Yes !None ! + + + + + !Peroneal !Yes !Yes !None ! + + + + + Left Doppler Measurements + + +------+ + !Location !Signal !Reflux!Reflux (sec) ! + + +------+ + !Common Femoral !Spontaneous Pulsatile ! ! ! + + +------+ + !Prox Femoral !Spontaneous Pulsatile ! ! ! + + +------+ + !Deep Femoral !Spontaneous Pulsatile ! ! ! + + +------+ + !Popliteal !Spontaneous Pulsatile ! ! ! + + +------+ + Findings Right Findings No evidence of a deep venous thrombosis (DVT). No evidence of a superficial venous thrombosis. Normal response to augmentation in the supine position. Left Findings No evidence of a deep venous thrombosis (DVT). No evidence of a superficial venous thrombosis. Normal response to augmentation in the supine position. Signature Procedure Note Bebeto Walter MD - 12/14/2024 Vascular Lower Extremities DVT Study Procedure Demographics Patient Name SANDIE SMITH Age 74 [place] Patient Number [id number] Gender Male Race Ethnicity Corporate ID [id number] Height 65 Date of 1950 Weight 139 Accession Number [id number] BSA 1.69 m^2 Room Number 405 BMI 23.13kg/m^2 Referring Alyson Ferguson MD Interpreting BEBETO PERALTA Physician Physician Senior [employer] Unix Engineer Rosy Guido RVT Procedure Type of Study: Veins: Venous Duplex, Venous Duplex Legs, Lower Extremities DVT Study,US DOPPLER VENOUS LEGS BILATERAL. Impressions Summary INDICATION: Personal history of DVT Z86.718 . ############################### BILATERAL: No evidence of deep venous thrombosis (DVT) or superficial venous thrombosis. Consistent pulsatility visualized in veins consistent with elevated central venous pressure. ############################### Patient Status:Inpatient . Study Location:Portable. Technical Quality:Good visualization. Velocities are measured in cm/s ; Diameters are measured in mm Right Lower Extremities DVT Study Measurements Right 2D Measurements + + + + + !Location !Visualized !Compressibility !Thrombosis! + + + + + !GSV Thigh !Yes !Yes !None! + + + + + !Common Femoral !Yes !Yes !None! + + + + + !Deep Femoral !Yes !Yes !None! + + + + + !Prox Femoral !Yes !Yes !None! + + + + + !Mid Femoral !Yes !Yes !None! + + + + + !Dist Femoral !Yes !Yes !None! + + + + + !Popliteal !Yes !Yes !None! + + + + + !PTV !Yes !Yes !None! + + + + + !Peroneal !Yes !Yes !None! + + + + + Right Doppler Measurements + + +------+ + !Location !Signal !Reflux!Reflux (sec)! + + +------+ + !Common Femoral !Spontaneous Pulsatile ! !! + + +------+ + !Prox Femoral !Spontaneous Pulsatile ! !! + + +------+ + !Deep Femoral !Spontaneous Pulsatile ! !! + + +------+ + !Popliteal !Spontaneous Pulsatile ! !! + + +------+ + Left Lower Extremities DVT Study Measurements Left 2D Measurements + + + + + !Location !Visualized !Compressibility !Thrombosis! + + + + + !GSV Thigh !Yes !Yes !None! + + + + + !Common Femoral !Yes !Yes !None! + + + + + !Deep Femoral !Yes !Yes !None! + + + + + !Prox Femoral !Yes !Yes !None! + + + + + !Mid Femoral !Yes !Yes !None! + + + + + !Dist Femoral !Yes !Yes !None! + + + + + !Popliteal !Yes !Yes !None! + + + + + !PTV !Yes !Yes !None! + + + + + !Peroneal !Yes !Yes !None! + + + + + Left Doppler Measurements + + +------+ + !Location !Signal !Reflux!Reflux (sec)! + + +------+ + !Common Femoral !Spontaneous Pulsatile ! !! + + +------+ + !Prox Femoral !Spontaneous Pulsatile ! !! + + +------+ + !Deep Femoral !Spontaneous Pulsatile ! !! + + +------+ + !Popliteal !Spontaneous Pulsatile ! !! + + +------+ + Findings Right Findings No evidence of a deep venous thrombosis (DVT). No evidence of a superficial venous thrombosis. Normal response to augmentation in the supine position. Left Findings No evidence of a deep venous thrombosis (DVT). No evidence of a superficial venous thrombosis. Normal response to augmentation in the supine position. Signature us Alyson Ferguson MD CV VASCULAR ORDERABLES Final Res ult * US CAROTID BLOOD FLOW BILATERAL (12/13/2024 10:00 AM EDT) Anatomical Region Laterality Modality Vascular, Carotid Vascular Ultra sound 12/13/2024 11:0 7 AM EDT Narrative 12/13/2024 11:21 PM EDT Vascular Carotid Procedure Demographics Patient Name SANDIE SMITH Age 74 [place] Patient Number [id number] Gender Male Race Ethnicity Corporate ID [id number] Height 65 Date of 1950 Weight 139 Accession Number [id number] BSA 1.69 m^2 Room Number 405 BMI 23.13 kg/m^2 Referring MARIA GUADALUPE LOPEZ MD Interpreting BEBETO WALTER MD Physician Physician Senior Linux [employer] Engineer Rosy Guido, T Procedure Type of Study: Cerebral: Carotid, US CAROTID BLOOD FLOW BILATERAL. Impressions Summary INDICATION: R09.89 Other specified symptoms and signs involving the circulatory and respiratory systems. Unable to obtain left BP due to chemo port in place in left arm. ######################################### RIGHT: < 50% (non flow restricting) stenosis of the internal carotid artery. ECA >50% Stenosis. Normal antegrade vertebral flow. No evidence of subclavian steal. LEFT: < 50% (non flow restricting) stenosis of the internal carotid artery. Normal antegrade vertebral flow. No evidence of subclavian steal. ######################################### Blood Pressure:Right arm 122/63 mmHg. Patient Status:Inpatient . Study Location:Portable. Technical Quality:Good visualization. Velocities are measured in cm/s ; Diameters are measured in mm Carotid Right Measurements + +------+-----+-----+---------+ + !Location !PSV !EDV !Angle!%Stenosis!Tortuosity! + +------+-----+-----+---------+ + !Prox CCA !123.71!17.47! ! ! ! + +------+-----+-----+---------+ + !Mid CCA !122.21!9.99 ! ! ! ! + +------+-----+-----+---------+ + !Dist CCA !90.79 !12.23! ! ! ! + +------+-----+-----+---------+ + !Prox ICA !122.98!25.65! ! ! ! + +------+-----+-----+---------+ + !Dist ICA !134.52!28.19! ! ! ! + +------+-----+-----+---------+ + !Prox ECA !208.14! ! ! ! ! + +------+-----+-----+---------+ + !Mid Vertebral !94.27 ! ! ! ! ! + +------+-----+-----+---------+ + !Mid Subclavian !137.74! ! ! ! ! + +------+-----+-----+---------+ + - There is antegrade vertebral flow noted on the right side. - Additional Measurements:ICAPSV/CCAPSV 1.35. Carotid Left Measurements + +------+-----+-----+---------+ + !Location !PSV !EDV !Angle!%Stenosis!Tortuosity! + +------+-----+-----+---------+ + !Prox CCA !136.94!18.1 ! ! ! ! + +------+-----+-----+---------+ + !Mid CCA !83.27 !14.65! ! ! ! + +------+-----+-----+---------+ + !Dist CCA !79.66 !13.39! ! ! ! + +------+-----+-----+---------+ + !Prox ICA !143.44!38.81! ! ! ! + +------+-----+-----+---------+ + !Dist ICA !166.19!30.74! ! ! ! + +------+-----+-----+---------+ + !Prox ECA !136.14! ! ! ! ! + +------+-----+-----+---------+ + !Mid Vertebral !95.52 ! ! ! ! ! + +------+-----+-----+---------+ + !Mid Subclavian !160.85! ! ! ! ! + +------+-----+-----+---------+ + - There is antegrade vertebral flow noted on the left side. - Additional Measurements:ICAPSV/CCAPSV 1.8. Findings Right Findings Intimal thickening in the entire CCA. Moderate heterogenous hyperechoic smooth plaque in the ECA . Mild heterogenous hyperechoic smooth plaque in the proximal ICA. Left Findings Intimal thickening in the entire CCA. Moderate heterogenous hyperechoic smooth plaque in the ECA and proximal ICA. Signature Procedure Note Bebeto Walter MD - 12/14/2024 Vascular Carotid Procedure Demographics Patient Name SANDIE SMITH Age 74 [place] Patient Number [id number] Gender Male Race Ethnicity Corporate ID [id number] Height 65 Date of 1950 Weight 139 Accession Number [id number] BSA 1.69 m^2 Room Number 405 BMI 23.13kg/m^2 Referring MARIA GUADALUPE LOPEZ MD Interpreting BEBETO PERALTA Physician Physician Senior [employer] Engineer Rosy Guido RVT Procedure Type of Study: Cerebral: Carotid, US CAROTID BLOOD FLOW BILATERAL. Impressions Summary INDICATION: R09.89 Other specified symptoms and signs involving the circulatory and respiratory systems. Unable to obtain left BP due to chemo port in place in left arm. ######################################### RIGHT: < 50% (non flow restricting) stenosis of the internal carotid artery. ECA >50% Stenosis. Normal antegrade vertebral flow. No evidence of subclavian steal. LEFT: < 50% (non flow restricting) stenosis of the internal carotid artery. Normal antegrade vertebral flow. No evidence of subclavian steal. ######################################### Blood Pressure:Right arm 122/63 mmHg. Patient Status:Inpatient . Study Location:Portable. Technical Quality:Good visualization. Velocities are measured in cm/s ; Diameters are measured in mm Carotid Right Measurements + +------+-----+-----+---------+ + !Location !PSV !EDV!Angle!%Stenosis!Tortuosity! + +------+-----+-----+---------+ + !Prox CCA !123.71!17.47! ! !! + +------+-----+-----+---------+ + !Mid CCA !122.21!9.99 ! ! !! + +------+-----+-----+---------+ + !Dist CCA !90.79 !12.23! ! !! + +------+-----+-----+---------+ + !Prox ICA !122.98!25.65! ! !! + +------+-----+-----+---------+ + !Dist ICA !134.52!28.19! ! !! + +------+-----+-----+---------+ + !Prox ECA !208.14! ! ! !! + +------+-----+-----+---------+ + !Mid Vertebral !94.27 ! ! ! !! + +------+-----+-----+---------+ + !Mid Subclavian !137.74! ! ! !! + +------+-----+-----+---------+ + - There is antegrade vertebral flow noted on the right side. - Additional Measurements:ICAPSV/CCAPSV 1.35. Carotid Left Measurements + +------+-----+-----+---------+ + !Location !PSV !EDV!Angle!%Stenosis!Tortuosity! + +------+-----+-----+---------+ + !Prox CCA !136.94!18.1 ! ! !! + +------+-----+-----+---------+ + !Mid CCA !83.27 !14.65! ! !! + +------+-----+-----+---------+ + !Dist CCA !79.66 !13.39! ! !! + +------+-----+-----+---------+ + !Prox ICA !143.44!38.81! ! !! + +------+-----+-----+---------+ + !Dist ICA !166.19!30.74! ! !! + +------+-----+-----+---------+ + !Prox ECA !136.14! ! ! !! + +------+-----+-----+---------+ + !Mid Vertebral !95.52 ! ! ! !! + +------+-----+-----+---------+ + !Mid Subclavian !160.85! ! ! !! + +------+-----+-----+---------+ + - There is antegrade vertebral flow noted on the left side. - Additional Measurements:ICAPSV/CCAPSV 1.8. Findings Right Findings Intimal thickening in the entire CCA. Moderate heterogenous hyperechoic smooth plaque in the ECA . Mild heterogenous hyperechoic smooth plaque in the proximal ICA. Left Findings Intimal thickening in the entire CCA. Moderate heterogenous hyperechoic smooth plaque in the ECA and proximalICA. Signature us Maria Guadalupe Lopez MD CV VASCULAR ORDERABLES Final Result * (ABNORMAL) C-Reactive Protein (12/13/2024 5:12 AM EDT) CRP 92.6(H) 0.0 - 5.0 mg/L 12/13/2024 6:10 PM EDT [facility] Blood Venipuncture / Unknown 12/13/2024 5:12 AM EDT 12/13/2024 5:24 AM EDT us Jaron Amin MD LAB BLOOD ORDERABLES Final Resul t Performing Organization Address City/[facility] Co de Phone Number [facility] [address] [phone] * Magnesium (12/13/2024 5:12 AM EDT) Magnesium 2.2 1.6 - 2.6 mg/dL 12/13/2024 3:16 PM EDT [facility] Blood Venipuncture / Unknown 12/13/2024 5:12 AM EDT 12/13/2024 5:24 AM EDT us Phuong Lewis MD LAB BLOOD ORDERABLES Final Resu lt Performing Organization Address [facility]/ZIP Co de Phone Number [facility] [address] [phone] * (ABNORMAL) Lipid panel (12/13/2024 5:12 AM EDT) Triglycerides 108 <=149 mg/dL 12/13/2024 8:20 AM EDT [facility] Comment: Normal: < 150 mg/dL Borderline High: 150 to 199 mg/dL High: 200 to 499 mg/dL Very High: >/= 500 mg/dL Cholesterol 81(L) 100 - 199 mg/dL 12/13/2024 8:20 AM EDT [facility] Comment: Child: Desirable: < 170 mg/dL Borderline: 170 to 199 mg/dL High: >/= 200 mg/dL Adult: Desirable: < 200 mg/dL Borderline: 200 to 239 mg/dL High: >/= 240 mg/dL HDL Cholesterol 12 See Comment mg/dL 12/13/2024 8:20 AM EDT [facility] Comment: Major risk factor for heart disease: < 40 mg/dL Negative risk factor for heart disease: >/= 60 mg/dL LDL Cholesterol, Calculated 47 0 - 100 mg/dL 12/13/2024 8:20 AM EDT [facility] Comment: Unable to calculate Optimal: < 100 mg/dL Near or above optimal: 100 to 129 mg/dL Borderline high: 130 to 159 mg/dL High: 160 to 189 mg/dL Very high: >/= 190 mg/dL Based on AHA/NCEP Guidelines LDl/HDL Ratio 4 0 - 4 12/13/2024 8:20 AM EDT [facility] Comment:Unable to calculate. Cholesterol/HDL ratio 6.8(H) 0.0 - 5.0 mg/dL 12/13/2024 8:20 AM EDT [facility] VLDL Cholesterol 21.6 5 - 40 mg/dL 12/13/2024 8:20 AM EDT [facility] Comment:Unable to calculate Blood Venipuncture / Unknown 12/13/2024 5:12 AM EDT 12/13/2024 5:24 AM EDT us Maria Guadalupe Lopez MD LAB BLOOD ORDERABLES Final Re sult [facility] [address] [phone] * (ABNORMAL) Manual Differential (12/13/2024 5:12 AM EDT) Total Counted 100 12/13/2024 6:24 AM EDT [facility] % Neutros (manual) 26(L) 50 - 65 % 12/13/2024 6:24 AM EDT [facility] % Lymphs (manual) 72(H) 24 - 44 % 12/13/2024 6:24 AM EDT [facility] % Monos (manual) 2(L) 4 - 5 % 12/14/19 6:24 AM EDT [facility] Atypical Lymphs Present 6:24 AM EDT [facility] RBC Morphology abnormal(A) Normal 6:24 AM EDT [facility] Platelet Estimate Adequate Adequate 12/13/2024 6:24 AM EDT [facility] Anisocytosis 1+ 12/13/2024 6:24 AM EDT [facility] Poikilocytes 1+ 12/13/2024 6:24 AM EDT [facility] Hypochromia 1+ 12/13/2024 6:24 AM EDT [facility] Elliptocytes 1+ 12/13/2024 6:24 AM EDT [facility] Smudge Cells Present 12/13/2024 6:24 AM EDT [facility] ANC# 4.84 K/ L 12/13/2024 6:24 AM EDT [facility] Blood Venipuncture / Unknown 12/13/2024 5:12 AM EDT 12/13/2024 5:25 AM EDT us Matt Vargas MD LAB BLOOD ORDERABLES Final Res ult Performing Organization Address City/State/[facility] Co de Phone Number [facility] [address] [phone] * (ABNORMAL) CBC with automated diff (12/13/2024 5:12 AM EDT) WBC 18.6(H) 4.2 - 9.1 K/ L 12/13/2024 6:24 AM EDT [facility] RBC 2.57(L) 4.63 - 6.08 M/ L 12/13/2024 6:24 AM EDT [facility] Hemoglobin 8.1(L) 13.7 - 17.5 GM/DL 12/13/2024 6:24 AM EDT [facility] Hematocrit 24.9(L) 40.1 - 51.0 % 12/13/2024 6:24 AM EDT [facility] MCV 97(H) 79 - 92 fL 12/13/2024 6:24 AM EDT [facility] MCH 31.5 25.7 - 32.2 pg 12/13/2024 6:24 AM EDT [facility] MCHC 32.5 32.3 - 36.5 GM/DL 12/13/2024 6:24 AM EDT [facility] RDW 14.7(H) 11.6 - 14.4 % 12/13/2024 6:24 AM EDT [facility] Platelets 167 140 - 375 K/CU MM 12/13/2024 6:24 AM EDT [facility] MPV 9.8 9.4 - 12.4 fL 12/13/2024 6:24 AM EDT [facility] NRBC Absolute <0.01 0 - 0.012 K/ul 12/13/2024 6:24 AM EDT [facility] Blood Venipuncture / Unknown 12/13/2024 5:12 AM EDT 12/13/2024 5:25 AM EDT Narrative [facility] - 12/13/2024 6:24 AM EDT When CBC w/ Auto Diff is ordered the lab will add a Manual Differential as a quality check at no additional charge if: Lymphocytes greater than seventy five percent with normal or increased WBC Monocytes greater than Fifteen percent Basophil greater than four percent Bands >10% or several immature myeloids are seen on scan Blast? Flag noted Atypical Lymph flag noted us Matt Vargas MD LAB BLOOD ORDERABLES Final Res ult [facility] [address] [phone] * Vitamin D, 25-Hydroxy (12/13/2024 5:12 AM EDT) [facility] Vitamin D 25-Hydroxy 31.33 30 - 80 ng/mL 12/13/2024 6:13 AM EDT [facility] Blood Venipuncture / Unknown 12/13/2024 5:12 AM EDT 12/13/2024 5:24 AM EDT us Maria Guadalupe Lopez MD LAB BLOOD ORDERABLES Final Re sult [facility] [address] [phone] * TSH (12/13/2024 5:12 AM EDT) TSH 2.613 0.350 - 4.940 uIU/mL 12/13/2024 6:07 AM EDT [facility] Blood Venipuncture / Unknown 12/13/2024 5:12 AM EDT 12/13/2024 5:24 AM EDT us Maria Guadalupe Lopez MD LAB BLOOD ORDERABLES Final Re sult [facility] [address] [phone] * (ABNORMAL) Basic Metabolic Panel (12/13/2024 5:12 AM EDT) Pathologist [facility] Sodium 136 136 - 145 meq/L 12/13/2024 6:07 AM EDT [facility] Potassium 4.0 3.4 - 5.1 meq/L 12/13/2024 6:07 AM EDT [facility] CO2 23 22 - 29 meq/L 12/13/2024 6:07 AM EDT [facility] Chloride 107 98 - 112 meq/L 12/13/2024 6:07 AM EDT [facility] Glucose 118(H) 82 - 115 mg/dL 12/13/2024 6:07 AM EDT [facility] BUN 17.4 8.4 - 25.7 mg/dL 12/13/2024 6:07 AM EDT [facility] Creatinine 0.75 0.72 - 1.25 mg/dL 12/13/2024 6:07 AM EDT [facility] BUN/Creatinine 23(H) 8 - 20 12/13/2024 6:07 AM EDT [facility] Calcium 7.6(L) 8.4 - 10.2 mg/dL 12/13/2024 6:07 AM EDT [facility] Anion Gap 10 4 - 12 12/13/2024 6:07 AM EDT [facility] eGFR (mL/min/1.73m2) 94 >=60 mL/min/1.7 3m2 12/13/2024 6:07 AM EDT [facility] Osmolality Calc 274.7 mOsm/kg 6:07 AM EDT [facility] Blood Venipuncture / Unknown 12/13/2024 5:12 AM EDT 12/13/2024 5:24 AM EDT us Maria Guadalupe Lopez MD LAB BLOOD ORDERABLES Final Re sult [facility] [address] [phone] * MR Brain Without IV Contrast (12/12/2024 6:43 PM EDT) Anatomical Region Laterality Modality Head, Brain Magnetic Resonan ce (MRI) 12/12/2024 7:07 PM EDT Impressions 12/12/2024 7:17 PM EDT Mild to moderate chronic ischemic/gliotic changes. Scattered small acute bilateral lacunar infarcts as described. MRI LUMBAR SPINE HISTORY: Bilateral lower extremity weakness. History of CLL. COMPARISON: None FINDINGS: Multiplanar MR imaging of the lumbar spine was performed without contrast. Motion artifact is noted on many of the images. On the sagittal T2-weighted images, disc degeneration is seen at multiple levels. The vertebral alignment is normal. Decreased signal is seen throughout the bone marrow of uncertain significance. There is no evidence of fracture. No bony mass is identified. The conus has an unremarkable appearance. L1-2: An annular bulge is present. There is mild facet arthropathy. No significant canal stenosis or neural foraminal narrowing is identified. L2-3: An annular bulge is present. There is mild facet arthropathy. Mild right neural foraminal narrowing is seen. L3-4: An annular bulge is present. There is bilateral facet arthropathy. A small right foraminal disc protrusion is seen. Moderate right and mild left neural foraminal narrowing is seen. L4-5: An annular bulge is present. Presumed postoperative changes are seen on the right. Moderate bilateral neural foraminal narrowing is seen. L5-S1: An annular bulge is present. There is mild facet arthropathy. Mild right and moderate left neural foraminal narrowing is seen. IMPRESSION: Multilevel degenerative disc disease and spondylosis with bilateral neural foraminal narrowing as described. Diffuse decreased signal throughout the bone marrow worrisome for a diffuse infiltrative process. Images reviewed, interpreted, and dictated by Haider Bond MD Narrative 12/12/2024 7:17 PM EDT MRI HEAD WITHOUT CONTRAST HISTORY: Lower extremity weakness, history of CLL COMPARISON: None. FINDINGS: Multiplanar MR imaging of the head was performed without contrast. Motion artifact is noted on many of the images. There is age-appropriate atrophy. Scattered foci of increased T2 signal are seen in the bilateral cerebral white matter consistent with mild to moderate chronic ischemic/gliotic changes. There is no evidence of intracranial hemorrhage or mass. The ventricles are within normal limits with respect to size. There is no evidence of shift of the midline structures. No abnormal extra-axial fluid collection is seen. The posterior fossa and brainstem have an unremarkable appearance. On the diffusion weighted images, scattered small foci of restricted diffusion are seen bilaterally consistent with small acute lacunar infarcts. The largest focus measures 5 mm along the posterior aspect of the occipital horn of the left lateral ventricle in the left occipital lobe. Other smaller foci are seen involving the bilateral occipital lobes, the left parietal lobe and the anteromedial right temporal lobe. Normal major vessel vascular flow voids are identified. Mucosal thickening is noted in multiple sinuses. Procedure Note Haider Bond MD - 12/12/2024 MRI HEAD WITHOUT CONTRAST HISTORY: Lower extremity weakness, history of CLL COMPARISON: None. FINDINGS: Multiplanar MR imaging of the head was performed without contrast. Motion artifact is noted on many of the images. There is age-appropriate atrophy. Scattered foci of increased T2 signal are seen in the bilateral cerebral white matter consistent with mild to moderate chronic ischemic/gliotic changes. There is no evidence of intracranial hemorrhage or mass. The ventricles are within normal limits with respect to size. There is no evidence of shift of the midline structures. No abnormal extra-axial fluid collection is seen. The posterior fossa and brainstem have an unremarkable appearance. On the diffusion weighted images, scattered small foci of restricted diffusion are seen bilaterally consistent with small acute lacunar infarcts. The largest focus measures 5 mm along the posterior aspect of the occipital horn of the left lateral ventricle in the left occipital lobe. Other smaller foci are seen involving the bilateral occipital lobes, the left parietal lobe and the anteromedial right temporal lobe. Normal major vessel vascular flow voids are identified. Mucosal thickening is noted in multiple sinuses. IMPRESSION: Mild to moderate chronic ischemic/gliotic changes. Scattered small acute bilateral lacunar infarcts as described. MRI LUMBAR SPINE HISTORY: Bilateral lower extremity weakness. History of CLL. COMPARISON: None FINDINGS: Multiplanar MR imaging of the lumbar spine was performed without contrast. Motion artifact is noted on many of the images. On the sagittal T2-weighted images, disc degeneration is seen at multiple levels. The vertebral alignment is normal. Decreased signal is seen throughout the bone marrow of uncertain significance. There is no evidence of fracture. No bony mass is identified. The conus has an unremarkable appearance. L1-2: An annular bulge is present. There is mild facet arthropathy. No significant canal stenosis or neural foraminal narrowing is identified. L2-3: An annular bulge is present. There is mild facet arthropathy. Mild right neural foraminal narrowing is seen. L3-4: An annular bulge is present. There is bilateral facet arthropathy. A small right foraminal disc protrusion is seen. Moderate right and mild left neural foraminal narrowing is seen. L4-5: An annular bulge is present. Presumed postoperative changes are seen on the right. Moderate bilateral neural foraminal narrowing is seen. L5-S1: An annular bulge is present. There is mild facet arthropathy. Mild right and moderate left neural foraminal narrowing is seen. IMPRESSION: Multilevel degenerative disc disease and spondylosis with bilateral neural foraminal narrowing as described. Diffuse decreased signal throughout the bone marrow worrisome for a diffuse infiltrative process. Images reviewed, interpreted, and dictated by Haider Bond MD us Aneudy Fitch PA-C IMG MRI ORDERABLES Final Resul t * MR spine lumbar without contrast (12/12/2024 6:29 PM EDT) Anatomical Region Laterality Modality L-spine Magnetic Resonan ce (MRI) 12/12/2024 7:07 PM EDT Impressions 12/12/2024 7:17 PM EDT Mild to moderate chronic ischemic/gliotic changes. Scattered small acute bilateral lacunar infarcts as described. MRI LUMBAR SPINE HISTORY: Bilateral lower extremity weakness. History of CLL. COMPARISON: None FINDINGS: Multiplanar MR imaging of the lumbar spine was performed without contrast. Motion artifact is noted on many of the images. On the sagittal T2-weighted images, disc degeneration is seen at multiple levels. The vertebral alignment is normal. Decreased signal is seen throughout the bone marrow of uncertain significance. There is no evidence of fracture. No bony mass is identified. The conus has an unremarkable appearance. L1-2: An annular bulge is present. There is mild facet arthropathy. No significant canal stenosis or neural foraminal narrowing is identified. L2-3: An annular bulge is present. There is mild facet arthropathy. Mild right neural foraminal narrowing is seen. L3-4: An annular bulge is present. There is bilateral facet arthropathy. A small right foraminal disc protrusion is seen. Moderate right and mild left neural foraminal narrowing is seen. L4-5: An annular bulge is present. Presumed postoperative changes are seen on the right. Moderate bilateral neural foraminal narrowing is seen. L5-S1: An annular bulge is present. There is mild facet arthropathy. Mild right and moderate left neural foraminal narrowing is seen. IMPRESSION: Multilevel degenerative disc disease and spondylosis with bilateral neural foraminal narrowing as described. Diffuse decreased signal throughout the bone marrow worrisome for a diffuse infiltrative process. Images reviewed, interpreted, and dictated by Haider Bond MD Narrative 12/12/2024 7:17 PM EDT MRI HEAD WITHOUT CONTRAST HISTORY: Lower extremity weakness, history of CLL COMPARISON: None. FINDINGS: Multiplanar MR imaging of the head was performed without contrast. Motion artifact is noted on many of the images. There is age-appropriate atrophy. Scattered foci of increased T2 signal are seen in the bilateral cerebral white matter consistent with mild to moderate chronic ischemic/gliotic changes. There is no evidence of intracranial hemorrhage or mass. The ventricles are within normal limits with respect to size. There is no evidence of shift of the midline structures. No abnormal extra-axial fluid collection is seen. The posterior fossa and brainstem have an unremarkable appearance. On the diffusion weighted images, scattered small foci of restricted diffusion are seen bilaterally consistent with small acute lacunar infarcts. The largest focus measures 5 mm along the posterior aspect of the occipital horn of the left lateral ventricle in the left occipital lobe. Other smaller foci are seen involving the bilateral occipital lobes, the left parietal lobe and the anteromedial right temporal lobe. Normal major vessel vascular flow voids are identified. Mucosal thickening is noted in multiple sinuses. Procedure Note Haider Bond MD - 12/12/2024 MRI HEAD WITHOUT CONTRAST HISTORY: Lower extremity weakness, history of CLL COMPARISON: None. FINDINGS: Multiplanar MR imaging of the head was performed without contrast. Motion artifact is noted on many of the images. There is age-appropriate atrophy. Scattered foci of increased T2 signal are seen in the bilateral cerebral white matter consistent with mild to moderate chronic ischemic/gliotic changes. There is no evidence of intracranial hemorrhage or mass. The ventricles are within normal limits with respect to size. There is no evidence of shift of the midline structures. No abnormal extra-axial fluid collection is seen. The posterior fossa and brainstem have an unremarkable appearance. On the diffusion weighted images, scattered small foci of restricted diffusion are seen bilaterally consistent with small acute lacunar infarcts. The largest focus measures 5 mm along the posterior aspect of the occipital horn of the left lateral ventricle in the left occipital lobe. Other smaller foci are seen involving the bilateral occipital lobes, the left parietal lobe and the anteromedial right temporal lobe. Normal major vessel vascular flow voids are identified. Mucosal thickening is noted in multiple sinuses. IMPRESSION: Mild to moderate chronic ischemic/gliotic changes. Scattered small acute bilateral lacunar infarcts as described. MRI LUMBAR SPINE HISTORY: Bilateral lower extremity weakness. History of CLL. COMPARISON: None FINDINGS: Multiplanar MR imaging of the lumbar spine was performed without contrast. Motion artifact is noted on many of the images. On the sagittal T2-weighted images, disc degeneration is seen at multiple levels. The vertebral alignment is normal. Decreased signal is seen throughout the bone marrow of uncertain significance. There is no evidence of fracture. No bony mass is identified. The conus has an unremarkable appearance. L1-2: An annular bulge is present. There is mild facet arthropathy. No significant canal stenosis or neural foraminal narrowing is identified. L2-3: An annular bulge is present. There is mild facet arthropathy. Mild right neural foraminal narrowing is seen. L3-4: An annular bulge is present. There is bilateral facet arthropathy. A small right foraminal disc protrusion is seen. Moderate right and mild left neural foraminal narrowing is seen. L4-5: An annular bulge is present. Presumed postoperative changes are seen on the right. Moderate bilateral neural foraminal narrowing is seen. L5-S1: An annular bulge is present. There is mild facet arthropathy. Mild right and moderate left neural foraminal narrowing is seen. IMPRESSION: Multilevel degenerative disc disease and spondylosis with bilateral neural foraminal narrowing as described. Diffuse decreased signal throughout the bone marrow worrisome for a diffuse infiltrative process. Images reviewed, interpreted, and dictated by Haider Bond MD us Maria Guadalupe Lopez MD IM MRI ORDERABLES Final Resu lt * MR thoracic spine without contrast (12/12/2024 6:16 PM EDT) Anatomical Region Laterality Modality T-spine Magnetic Resonan ce (MRI) 12/12/2024 6:49 PM EDT Impressions 12/12/2024 6:56 PM EDT Multilevel degenerative disc disease and spondylosis as described. Mild central canal stenosis at C4-5 and C5-6. MRI THORACIC SPINE HISTORY: Lower extremity weakness. History of CLL FINDINGS: Multiplanar MR imaging of the thoracic spine was performed without contrast. Motion artifact is noted on many of the images. On the sagittal T2 weighted images, disc degeneration is seen at multiple levels. The vertebral alignment is normal. There is no evidence of fracture. No bony mass is identified. No significant central canal stenosis is identified. The thoracic spinal cord has an unremarkable appearance, without evidence of mass, edema or syrinx. On the axial images, multilevel mild annular bulges are seen. No focal disc protrusion is identified. No significant central canal stenosis is seen. A small right pleural effusion is noted. IMPRESSION: Multilevel mild degenerative disc disease with multiple disc bulges. No focal disc protrusion or significant central canal stenosis. Images reviewed, interpreted, and dictated by Haider Bond MD Narrative 12/12/2024 6:56 PM EDT MRI CERVICAL SPINE WITHOUT CONTRAST HISTORY: Lower extremity weakness COMPARISON: None FINDINGS: Multiplanar MR imaging of the cervical spine was performed without contrast. On the sagittal T2 weighted images, disc degeneration is noted at multiple levels. There is mild retrolisthesis of C4 on C5. Mild endplate changes are seen at several levels. There is no evidence of fracture. No bony mass is identified. The cervical spinal cord has an unremarkable appearance, without evidence of mass, edema or syrinx. The cervicomedullary junction is normal. C2-C3: There is no evidence of significant central canal stenosis or neural foraminal narrowing. C3-C4: A small central disc protrusion mildly indents the thecal sac. No significant canal stenosis is identified. There is mild left neural foraminal narrowing. C4-C5: A disc osteophyte complex is present. Moderate bilateral neural foraminal narrowing is seen. Mild central canal stenosis is seen measuring 9 mm AP. C5-C6: A disc osteophyte complex is present. Moderate bilateral neural foraminal narrowing is seen. Mild central canal stenosis is seen measuring 8 mm AP. C6-C7: A disc osteophyte complex is present. There is mild right neural foraminal narrowing. C7-T1: There is no evidence of significant central canal stenosis or neural foraminal narrowing. Procedure Note Haider Bond MD - 12/12/2024 MRI CERVICAL SPINE WITHOUT CONTRAST HISTORY: Lower extremity weakness COMPARISON: None FINDINGS: Multiplanar MR imaging of the cervical spine was performed without contrast. On the sagittal T2 weighted images, disc degeneration is noted at multiple levels. There is mild retrolisthesis of C4 on C5. Mild endplate changes are seen at several levels. There is no evidence of fracture. No bony mass is identified. The cervical spinal cord has an unremarkable appearance, without evidence of mass, edema or syrinx. The cervicomedullary junction is normal. C2-C3: There is no evidence of significant central canal stenosis or neural foraminal narrowing. C3-C4: A small central disc protrusion mildly indents the thecal sac. No significant canal stenosis is identified. There is mild left neural foraminal narrowing. C4-C5: A disc osteophyte complex is present. Moderate bilateral neural foraminal narrowing is seen. Mild central canal stenosis is seen measuring 9 mm AP. C5-C6: A disc osteophyte complex is present. Moderate bilateral neural foraminal narrowing is seen. Mild central canal stenosis is seen measuring 8 mm AP. C6-C7: A disc osteophyte complex is present. There is mild right neural foraminal narrowing. C7-T1: There is no evidence of significant central canal stenosis or neural foraminal narrowing. IMPRESSION: Multilevel degenerative disc disease and spondylosis as described. Mild central canal stenosis at C4-5 and C5-6. MRI THORACIC SPINE HISTORY: Lower extremity weakness. History of CLL FINDINGS: Multiplanar MR imaging of the thoracic spine was performed without contrast. Motion artifact is noted on many of the images. On the sagittal T2 weighted images, disc degeneration is seen at multiple levels. The vertebral alignment is normal. There is no evidence of fracture. No bony mass is identified. No significant central canal stenosis is identified. The thoracic spinal cord has an unremarkable appearance, without evidence of mass, edema or syrinx. On the axial images, multilevel mild annular bulges are seen. No focal disc protrusion is identified. No significant central canal stenosis is seen. A small right pleural effusion is noted. IMPRESSION: Multilevel mild degenerative disc disease with multiple disc bulges. No focal disc protrusion or significant central canal stenosis. Images reviewed, interpreted, and dictated by Haider Bond MD us Maria Guadalupe Lopez MD IMG MRI ORDERABLES Final Resu lt * MR spine cervical without IV contrast (12/12/2024 6:10 PM EDT) Anatomical Region Laterality Modality C-spine Magnetic Resonan ce (MRI) 12/12/2024 6:49 PM EDT Impressions 12/12/2024 6:56 PM EDT Multilevel degenerative disc disease and spondylosis as described. Mild central canal stenosis at C4-5 and C5-6. MRI THORACIC SPINE HISTORY: Lower extremity weakness. History of CLL FINDINGS: Multiplanar MR imaging of the thoracic spine was performed without contrast. Motion artifact is noted on many of the images. On the sagittal T2 weighted images, disc degeneration is seen at multiple levels. The vertebral alignment is normal. There is no evidence of fracture. No bony mass is identified. No significant central canal stenosis is identified. The thoracic spinal cord has an unremarkable appearance, without evidence of mass, edema or syrinx. On the axial images, multilevel mild annular bulges are seen. No focal disc protrusion is identified. No significant central canal stenosis is seen. A small right pleural effusion is noted. IMPRESSION: Multilevel mild degenerative disc disease with multiple disc bulges. No focal disc protrusion or significant central canal stenosis. Images reviewed, interpreted, and dictated by Haider Bond MD Narrative 12/12/2024 6:56 PM EDT MRI CERVICAL SPINE WITHOUT CONTRAST HISTORY: Lower extremity weakness COMPARISON: None FINDINGS: Multiplanar MR imaging of the cervical spine was performed without contrast. On the sagittal T2 weighted images, disc degeneration is noted at multiple levels. There is mild retrolisthesis of C4 on C5. Mild endplate changes are seen at several levels. There is no evidence of fracture. No bony mass is identified. The cervical spinal cord has an unremarkable appearance, without evidence of mass, edema or syrinx. The cervicomedullary junction is normal. C2-C3: There is no evidence of significant central canal stenosis or neural foraminal narrowing. C3-C4: A small central disc protrusion mildly indents the thecal sac. No significant canal stenosis is identified. There is mild left neural foraminal narrowing. C4-C5: A disc osteophyte complex is present. Moderate bilateral neural foraminal narrowing is seen. Mild central canal stenosis is seen measuring 9 mm AP. C5-C6: A disc osteophyte complex is present. Moderate bilateral neural foraminal narrowing is seen. Mild central canal stenosis is seen measuring 8 mm AP. C6-C7: A disc osteophyte complex is present. There is mild right neural foraminal narrowing. C7-T1: There is no evidence of significant central canal stenosis or neural foraminal narrowing. Procedure Note Haider Bond MD - 12/12/2024 MRI CERVICAL SPINE WITHOUT CONTRAST HISTORY: Lower extremity weakness COMPARISON: None FINDINGS: Multiplanar MR imaging of the cervical spine was performed without contrast. On the sagittal T2 weighted images, disc degeneration is noted at multiple levels. There is mild retrolisthesis of C4 on C5. Mild endplate changes are seen at several levels. There is no evidence of fracture. No bony mass is identified. The cervical spinal cord has an unremarkable appearance, without evidence of mass, edema or syrinx. The cervicomedullary junction is normal. C2-C3: There is no evidence of significant central canal stenosis or neural foraminal narrowing. C3-C4: A small central disc protrusion mildly indents the thecal sac. No significant canal stenosis is identified. There is mild left neural foraminal narrowing. C4-C5: A disc osteophyte complex is present. Moderate bilateral neural foraminal narrowing is seen. Mild central canal stenosis is seen measuring 9 mm AP. C5-C6: A disc osteophyte complex is present. Moderate bilateral neural foraminal narrowing is seen. Mild central canal stenosis is seen measuring 8 mm AP. C6-C7: A disc osteophyte complex is present. There is mild right neural foraminal narrowing. C7-T1: There is no evidence of significant central canal stenosis or neural foraminal narrowing. IMPRESSION: Multilevel degenerative disc disease and spondylosis as described. Mild central canal stenosis at C4-5 and C5-6. MRI THORACIC SPINE HISTORY: Lower extremity weakness. History of CLL FINDINGS: Multiplanar MR imaging of the thoracic spine was performed without contrast. Motion artifact is noted on many of the images. On the sagittal T2 weighted images, disc degeneration is seen at multiple levels. The vertebral alignment is normal. There is no evidence of fracture. No bony mass is identified. No significant central canal stenosis is identified. The thoracic spinal cord has an unremarkable appearance, without evidence of mass, edema or syrinx. On the axial images, multilevel mild annular bulges are seen. No focal disc protrusion is identified. No significant central canal stenosis is seen. A small right pleural effusion is noted. IMPRESSION: Multilevel mild degenerative disc disease with multiple disc bulges. No focal disc protrusion or significant central canal stenosis. Images reviewed, interpreted, and dictated by Haider Bond MD us Maria Guadalupe Lopez MD IMG MRI ORDERABLES Final Resu lt * Legionella antigen, urine (12/12/2024 11:48 AM EDT) Legionella Urine Antigen Presumptive negative for L. pneumophila serogroup 1 antigen in urine- see comment Presumptive negative for L. pneumophila serogroup 1 antigen in urine- see comment 12/12/2024 12:08 PM EDT [facility] Urine 12/12/2024 11:4 8 AM EDT 12/12/2024 11:48 AM EDT Narrative [facility] - 12/12/2024 12:08 PM EDT Presumptive negative for L. pneumophilia serogroup 1 antigen in urine, suggesting no recent or current infection. Infection due to Legionella cannot be ruled out since other serogroups and species may cause disease, antigen may not be present in urine in early infection, and the level of antigen present in the specimen may be below the detection limit of the test. us Maria Guadalupe Lopez MD URINE ORDERABLES Final Result [facility] [address] [phone] * Strep pneumoniae urine antigen (12/12/2024 11:48 AM EDT) Strep pneumoniae Antigen Presumptive negative for pneumococcal pneumonia - see comment Presumptive negative for pneumococcal pneumonia- see comment 12/12/2024 12:09 PM EDT [facility] Urine URINE / Unknown 12/12/2024 1 1:48 AM EDT 12/12/2024 11:48 AM EDT Narrative [facility] - 12/12/2024 12:09 PM EDT A presumptive negative result suggests no current or recent pneumococcal infection. Infection due to S. pneumoniae cannot be ruled out since the antigen present in the specimen may be below the detection limit of the test. us Maria Guadalupe Lopez MD MICROBIOLOGY - GENERAL ORDERA BLES Final Result [facility] [address] [phone] * Respiratory Panel (12/12/2024 10:27 AM EDT) ADENOVIRUS Not detected Not detected 12/12/2024 11:25 AM EDT [facility] CORONAVIRUS 229E Not detected Not detected 12/12/2024 11:25 AM EDT [facility] CORONAVIRUS HKU1 Not detected Not detected 12/12/2024 11:25 AM EDT [facility] CORONAVIRUS NL63 Not detected Not detected 12/12/2024 11:25 AM EDT [facility] CORONAVIRUS OC43 Not detected Not detected 12/12/2024 11:25 AM EDT [facility] SARS-COV2/RT-PCR Not Detected Not Detected 12/12/2024 11:25 AM EDT [facility] HUMAN METAPNEUMOVIRUS Not detected Not detected 12/12/2024 11:25 AM EDT [facility] HUMAN RHINOVIRUS/ENTEROV IRUS Not detected Not detected 12/12/2024 11:25 AM EDT [facility] INFLUENZA A Not detected Not detected 12/12/2024 11:25 AM EDT [facility] INFLUENZA B Not detected Not detected 12/12/2024 11:25 AM EDT [facility] PARAINFLUENZA VIRUS 1 Not detected Not detected 12/12/2024 11:25 AM EDT [facility] PARAINFLUENZA VIRUS 2 Not detected Not detected 12/12/2024 11:25 AM EDT [facility] PARAINFLUENZA VIRUS 3 Not detected Not detected 12/12/2024 11:25 AM EDT [facility] PARAINFLUENZA VIRUS 4 Not detected Not detected 12/12/2024 11:25 AM EDT [facility] RESPIRATORY SYNCYTIAL VIRUS Not detected Not detected 12/12/2024 11:25 AM EDT [facility] BORDETELLA PARAPERTUSSIS Not detected Not detected 12/12/2024 11:25 AM EDT [facility] BORDETELLA PERTUSSIS Not detected Not detected 12/12/2024 11:25 AM EDT [facility] CHLAMYDIA PNEUMONIAE Not detected Not detected 12/12/2024 11:25 AM EDT [facility] MYCOPLASMA PNEUMONIAE Not detected Not detected 12/12/2024 11:25 AM EDT [facility] Nasopharyngeal NASOPHARYNGEAL SWAB / Unknown 12/12/2024 10:27 AM EDT 12/12/2024 10:28 AM EDT [facility] - 12/12/2024 11:25 AM EDT Testing was performed with RT-PCR methodology using the [employer] Respiratory Panel 2.1 which has FDA [place] approval for SARS-CoV-2 testing. Negative results do not preclude infection with the SARS-CoV-2 virus and should not be used as the sole basis of patient treatment or public health decisions. Negative results must be considered in the context of an individual's recent exposures, history, and presence of clinical signs/symptoms. Follow-up testing should be performed according to the current CDC recommendations. Other viruses and bacteria not targeted by this PCR panel cannot be excluded; therefore clinical correlation and follow up of serology, culture results, and other molecular studies is required. The results are not intended to be used as the sole means for clinical diagnosis or patient management decisions. This sample was tested at the [facility] using the [employer] Respiratory Panel. It is FDA cleared and has been verified and approved by the [facility] for clinical use on nasopharyngeal swab specimens. The performance of the [employer] RP has not been established in individuals who received influenza vaccine. Recent administration of a nasal influenza vaccine may cause false positive results for Influenza A and/or Influenza B. us Maria Guadalupe Lopez MD MICROBIOLOGY - GENERAL ORDERA BLES Final Result Performing Organization Address [facility]/ZIP Co de Phone Number [facility] [address] [phone] * MRSA Screen (12/12/2024 10:27 AM EDT) [facility] MRSA by PCR [facility] MRSA Not Detected by PCR MRSA Not Detected by PCR DEVICE ID9 12/12/2024 11:45 AM EDT [facility] Nasal BOTH ANTERIOR NARES / Unknown 12/12/2024 10:27 AM EDT 12/12/2024 10:28 AM EDT Maria Guadalupe Lopez MD MICROBIOLOGY - GENERAL ORDERA BLES Final Result Performing Organization Address [facility] Co de Phone Number [facility] [address] [phone] * XR chest AP portable (12/12/2024 9:10 AM EDT) Anatomical Region Laterality Modality Chest X-Ray 12/12/2024 9:12 AM EDT Impressions 12/12/2024 9:13 AM EDT Patchy infiltrate in the right lung base, may represent pneumonia. Narrative 12/12/2024 9:13 AM EDT Portable chest HISTORY: Pneumonia FINDINGS: Prior study dated 12/02/2017. There are new patchy infiltrates in the right lung base. Heart and pulmonary vessels are normal. There are no definite acute infiltrates on the left. There are no effusions. Procedure Note Cassie Hou MD - 12/12/2024 Portable chest HISTORY: Pneumonia FINDINGS: Prior study dated 12/02/2017. There are new patchy infiltrates in the right lung base. Heart and pulmonary vessels are normal. There are no definite acute infiltrates on the left. There are no effusions. IMPRESSION: Patchy infiltrate in the right lung base, may represent pneumonia. us Maria Guadalupe Lopez MD IMG DIAGNOSTIC IMAGING ORDERA BLES Final Result * Vitamin B12 (12/12/2024 3:51 AM EDT) Vitamin B12 439 213 - 816 pg/mL 12/12/2024 10:35 AM EDT [facility] Blood Venipuncture / Unknown 12/12/2024 3:51 AM EDT 12/12/2024 4:38 AM EDT us Maria Guadalupe Lopez MD LAB BLOOD ORDERABLES Final Re sult Performing Organization Address [facility]/ZIP Co de Phone Number [facility] [address] [phone] * (ABNORMAL) Ferritin (12/12/2024 3:51 AM EDT) Ferritin 474.71(H) 21.81 - 274.66 ng/mL 12/12/2024 10:35 AM EDT [facility] Blood Venipuncture / Unknown 12/12/2024 3:51 AM EDT 12/12/2024 4:38 AM EDT us Maria Guadalupe Lopez MD LAB BLOOD ORDERABLES Final Re sult Performing Organization Address [facility]/ZIP Co de Phone Number [facility] [address] [phone] * (ABNORMAL) Iron and TIBC (12/12/2024 3:51 AM EDT) Iron 11(L) 65 - 175 ug/dL 12/12/2024 10:35 AM EDT [facility] TIBC 183(L) 250 - 435 ug/dL 12/12/2024 10:35 AM EDT [facility] % Saturation 6 % 12/12/2024 10:35 AM EDT [facility] UIBC 172 12/12/2024 10:35 AM EDT [facility] Blood Venipuncture / Unknown 12/12/2024 3:51 AM EDT 12/12/2024 4:38 AM EDT us Maria Guadalupe Lopez MD LAB BLOOD ORDERABLES Final Re sult [facility] [address] [phone] * (ABNORMAL) Basic Metabolic Panel (12/12/2024 3:51 AM EDT) Sodium 140 136 - 145 meq/L 12/12/2024 5:15 AM EDT [facility] Potassium 3.9 3.4 - 5.1 meq/L 12/12/2024 5:15 AM EDT [facility] CO2 24 22 - 29 meq/L 12/12/2024 5:15 AM EDT [facility] Chloride 107 98 - 112 meq/L 12/12/2024 5:15 AM EDT [facility] Glucose 105 82 - 115 mg/dL 12/12/2024 5:15 AM EDT [facility] BUN 18.6 8.4 - 25.7 mg/dL 12/12/2024 5:15 AM EDT [facility] Creatinine 1.02 0.72 - 1.25 mg/dL 12/12/2024 5:15 AM EDT [facility] BUN/Creatinine 18 8 - 20 12/12/2024 5:15 AM EDT [facility] Calcium 7.8(L) 8.4 - 10.2 mg/dL 12/12/2024 5:15 AM EDT [facility] Anion Gap 13(H) 4 - 12 12/12/2024 5:15 AM EDT [facility] eGFR (mL/min/1.73m2) 76 >=60 mL/min/1.7 3m2 12/12/2024 5:15 AM EDT [facility] Osmolality Calc 281.9 mOsm/kg 5:15 AM EDT [facility] Blood Venipuncture / Unknown 12/12/2024 3:51 AM EDT 12/12/2024 4:38 AM EDT us Aneudy Fitch PA-C LAB BLOOD ORDERABLES Final Res ult [facility] [address] [phone] * (ABNORMAL) CBC - Hemogram (SJ-BKR) (12/12/2024 3:51 AM EDT) WBC 16.1(H) 4.2 - 9.1 K/ L 12/12/2024 4:46 AM EDT [facility] RBC 2.60(L) 4.63 - 6.08 M/ L 12/12/2024 4:46 AM EDT [facility] Hemoglobin 8.2(L) 13.7 - 17.5 GM/DL 12/12/2024 4:46 AM EDT [facility] Hematocrit 25.8(L) 40.1 - 51.0 % 12/12/2024 4:46 AM EDT [facility] MCV 99(H) 79 - 92 fL 12/12/2024 4:46 AM EDT [facility] MCH 31.5 25.7 - 32.2 pg 12/12/2024 4:46 AM EDT [facility] MCHC 31.8(L) 32.3 - 36.5 GM/DL 12/12/2024 4:46 AM EDT [facility] RDW 14.8(H) 11.6 - 14.4 % 12/12/2024 4:46 AM EDT [facility] Platelets 168 140 - 375 K/CU MM 12/12/2024 4:46 AM EDT [facility] MPV 9.7 9.4 - 12.4 fL 12/12/2024 4:46 AM EDT [facility] Blood Venipuncture / Unknown 12/12/2024 3:51 AM EDT 12/12/2024 4:35 AM EDT us Aneudy Fitch PA-C LAB BLOOD ORDERABLES Final Res ult [facility] [address] [place] [id number], [facility] [phone] documented in this encounter Visit Diagnoses Diagnosis Weakness- Primary Other malaise and fatigue CLL (chronic lymphocytic leukemia) (HCC) Chronic lymphoid leukemia, without mention of having achieved remission Pneumonia Pneumonia, organism unspecified Hyponatremia Hyposmolality and/or hyponatremia documented in this encounter Admitting Diagnoses Diagnosis Weakness Other malaise and fatigue documented in this encounter Administered Medications Inactive Administered Medications - up to 3 most recent administrations Medication Order MAR Action Action Date Dose Rate Site acetaminophen (TYLENOL) tablet 1,000 mg 1,000 mg Every 6 hours PRN, oral, fever greater than or equal to 38C, mild pain (1-3) use first line, headache, Starting on Tue12/11/24 at 1727, Recommended maximum dose of acetaminophen is 4000 mg from all sources in 24 hours Given 12/12/2024 3:49 PM EDT 1,000 mg Given 12/12/2024 5:23 AM EDT 1,000 mg Given 12/11/2024 6:30 PM EDT 1,000 mg aspirin EC tablet 81 mg 81 mg Daily, oral, First dose on Tue12/13/24 at 0900, * DO NOT CRUSH THIS DOSAGE FORM * Given 12/13/2024 8:48 AM EDT 81 mg aspirin EC tablet 81 mg 81 mg Daily, oral, First dose on Tue12/14/24 at 0900, * DO NOT CRUSH THIS DOSAGE FORM * Given 12/14/2024 9:06 AM EDT 81 mg azithromycin (ZITHROMAX) 500 mg in sodium chloride 0.9 % (NS) 250 mL (V2B) IVPB 500 mg Every 24 hours, intravenous, at 250 mL/hr, First dose on Tue12/11/24 at 2100, For 4 days, Please choose an indication: Pneumonia, Empiric for Fever of Unknown Origin Secondary to Suspected Infection IVPB Started 12/11/2024 10:53 PM EDT 500 mg 250 mL/hr cefTRIAXone (ROCEPHIN) 1 g in sodium chloride 0.9 % (NS) 50 mL EFRAIN IVPB 1 g Every 24 hours scheduled, intravenous, at 100 mL/hr, First dose on Tue12/11/24 at 1830, For 6 days, Please choose an indication: Pneumonia, Empiric for Fever of Unknown Origin Secondary to Suspected Infection IVPB Started 12/13/2024 8:44 PM EDT 1 g 100 mL/hr IVPB Started 12/12/2024 9:20 PM EDT 1 g 100 mL/hr IVPB Started 12/11/2024 11:24 PM EDT 1 g 100 mL/hr cefTRIAXone (ROCEPHIN) 1 g in sodium chloride 0.9 % (NS) 50 mL EFRAIN IVPB 1 g Every 24 hours scheduled, intravenous, at 100 mL/hr, First dose (after last modification) on Tue12/14/24 at 1000, For 1 dose, Please choose an indication: Pneumonia, Empiric for Fever of Unknown Origin Secondary to Suspected Infection IVPB Started 12/14/2024 11:31 AM EDT 1 g 100 mL/hr cloNIDine (CATAPRES) tablet 0.1 mg 0.1 mg Every 8 hours PRN, oral, high blood pressure (specify), for SBP greater than 160, Starting on Tue12/11/24 at 1727, Look-alike/Sound-alike medication diphenhydrAMINE (BENADRYL) injection 50 mg 50 mg As needed, intravenous, itching, Anaphylaxis, Starting on Tue12/12/24 at 1437 docusate sodium (COLACE) capsule 100 mg 100 mg 2 times daily PRN, oral, constipation, Starting on Tue12/12/24 at 1056, * DO NOT CRUSH THIS DOSAGE FORM * Given 12/12/2024 11:02 AM EDT 100 mg doxycycline (VIBRAMYCIN) capsule 100 mg 100 mg Every 12 hours scheduled, oral, First dose on Tue12/12/24 at 0900, Please choose an indication: Pneumonia Given 12/14/2024 9:05 AM EDT 100 mg Given 12/13/2024 8:44 PM EDT 100 mg Given 12/13/2024 8:48 AM EDT 100 mg enoxaparin (LOVENOX) syringe 40 mg 40 mg Every Night, subcutaneous, First dose on Tue12/12/24 at 2100, Do not administer within 12 hours of epidural or lumbar puncture. Look-Alike/Sound-Alike Alert Given 12/12/2024 9:20 PM EDT 40 mg Abdom inal Tissue enoxaparin (LOVENOX) syringe 40 mg 40 mg Every Night, subcutaneous, First dose on Tue12/14/24 at 2100, Do not administer within 12 hours of epidural or lumbar puncture. Look-Alike/Sound-Alike Alert enoxaparin (LOVENOX) syringe 60 mg 60 mg Every 12 hours scheduled (rounded from 63.2 mg = 1 mg/kg 63.2 kg), subcutaneous, First dose on Tue12/13/24 at 1230, Do not administer within 12 hours of epidural or lumbar puncture. Look-Alike/Sound-Alike Alert Given 12/13/2024 8:44 PM EDT 60 mg Abdom inal Tissue Given 12/13/2024 1:41 PM EDT 60 mg Ab dominal Tissue EPINEPHrine HCl (PF) (ADRENALIN) HYPERSENSITIVITY USE injection 0.3 mg 0.3 mg As needed, subcutaneous, Anaphylaxis, Starting on Tue12/12/24 at 1437, For IM or SUBCUTANEOUS administration only. Do NOT administer via direct IV injection without dilution famotidine (PEPCID) tablet 20 mg 20 mg Daily, oral, First dose on Tue12/13/24 at 0900, Pharmacist to renally dose if CrCl is less than 50 mL/min or on CRRT. Given 12/14/2024 9:05 AM EDT 20 mg Given 12/13/2024 8:48 AM EDT 20 mg ferric gluconate (FERRLECIT) 125 mg in sodium chloride 0.9 % (NS) 100 mL infusion 125 mg Daily, intravenous, Administer over 60 Minutes, First dose on Tue12/12/24 at 1500, For 3 days IVPB Started 12/14/2024 12:54 PM EDT 125 mg 100 mL/hr IVPB Started 12/13/2024 11:26 AM EDT 125 mg 100 mL/hr IVPB Started 12/12/2024 3:42 PM EDT 125 mg 100 mL/hr gabapentin (NEURONTIN) capsule 300 mg 300 mg 2 times daily, oral, First dose on Tue12/12/24 at 1200 Given 12/13/2024 8:48 AM EDT 300 mg Given 12/12/2024 9:20 PM EDT 300 mg Given 12/12/2024 12:14 PM EDT 300 mg gabapentin (NEURONTIN) capsule 300 mg 300 mg Every Night, oral, First dose (after last modification) on Tue12/13/24 at 2100 Given 12/13/2024 8:44 PM EDT 30 0 mg magnesium sulfate IVPB 2 g in sterile water 50 mL (premix) at 25 mL/hr, Administer over 120 Minutes, intravenous, Daily as needed, for magnesium level 1.3 to 1.7 mg/dL, Starting on Tue12/11/24 at 1726, If magnesium is replaced per protocol order, recheck 1 hour after replacement and the next morning. magnesium sulfate IVPB 2 g in sterile water 50 mL (premix) at 25 mL/hr, Administer over 120 Minutes, intravenous, 2 times daily PRN, for magnesium level less than 1.3 mg/dL, Starting on Tue12/11/24 at 1726, Total dose of 4 g for each low magnesium result. If magnesium is replaced per protocol order, recheck 1 hour after replacement and the next morning. melatonin tablet 5 mg 5 mg Every Night, oral, First dose on Tue12/11/24 at 2100 Given 12/13/2024 8:44 PM EDT 5 mg Given 12/12/2024 9:20 PM EDT 5 mg Given 12/11/2024 10:53 PM EDT 5 mg multivitamin (THERAGRAN) tablet 1 tablet 1 tablet Daily, oral, First dose on Karolina 12/13/24 at 0900 Given 12/14/2024 9:05 AM EDT 1 tablet Given 12/13/2024 8:47 AM EDT 1 tablet ondansetron (ZOFRAN) injection 4 mg 4 mg Every 8 hours PRN, intravenous, nausea, vomiting, Starting on Tue12/11/24 at 1726, Give IV if patient is unable to take orally. 1st line If inadequate response within 60 minutes, proceed to next-line agent for same PRN reason or contact provider if no further options ordered. For IV push, give over 2 - 5 minutes. ondansetron (ZOFRAN-ODT) disintegrating tablet 4 mg 4 mg Every 8 hours PRN, oral, nausea, vomiting, Starting on Tue12/11/24 at 1726, 1st line. If inadequate response within 60 minutes, proceed to next-line agent for same PRN reason or contact provider if no further options ordered. oxyCODONE (ROXICODONE) immediate release tablet 5 mg 5 mg Every 4 hours PRN, oral, moderate pain (4-6), severe pain (7-10), Starting on Tue12/11/24 at 1727, Look-alike/Sound-alike medication Given 12/13/2024 6:29 PM EDT 5 mg Given 12/13/2024 4:53 AM EDT 5 mg Given 12/12/2024 9:40 PM EDT 5 mg pantoprazole (PROTONIX) EC tablet 40 mg 40 mg Daily, oral, First dose on Tue12/11/24 at 1800, * DO NOT CRUSH THIS DOSAGE FORM * Given 12/14/2024 9:06 AM EDT 4 0 mg Given 12/13/2024 8:47 AM EDT 40 mg Given 12/12/2024 8:24 AM EDT 40 mg potassium chloride (KLOR-CON) ER tablet 40 mEq 40 mEq 4 times daily PRN, oral, for potassium less than or EQUAL to 3.4 mmol/L, Starting on Tue12/11/24 at 1726, Do not crush KCl tablets. If potassium is replaced per protocol order, recheck potassium 2 hour after replacement and the next morning. predniSONE (DELTASONE) tablet 10 mg 10 mg 2 times daily, oral, First dose on Tue12/12/24 at 1200, Look-alike/Sound-alike medication Given 12/12/2024 12:14 PM EDT 10 mg predniSONE (DELTASONE) tablet 10 mg 10 mg TID with Meals, oral, First dose (after last modification) on Tue12/12/24 at 1800, Look-alike/Sound-alike medication Given 12/14/2024 1:52 PM EDT 10 mg Given 12/14/2024 9:06 AM EDT 10 mg Given 12/13/2024 6:26 PM EDT 10 mg promethazine (PHENERGAN) 12.5 mg in sodium chloride 0.9 % (NS) 50 mL IVPB (Immediate Use Only) 12.5 mg Every 6 hours PRN, intravenous, at 150 mL/hr, nausea, vomiting, Starting on Tue12/11/24 at 1727, 2nd line. Give IV if patient is unable to take orally. If inadequate response within 60 minutes, proceed to next-line agent for same PRN reason or contact provider if no further options ordered. promethazine (PHENERGAN) tablet 25 mg 25 mg Every 6 hours PRN, oral, nausea, vomiting, Starting on Tue12/11/24 at 1727, 2nd line. If inadequate response within 60 minutes, proceed to next-line agent for same PRN reason or contact provider if no further options ordered. Saccharomyces boulardii (FLORASTOR) capsule 250 mg 250 mg Daily, oral, First dose on Tue12/12/24 at 0900, Do not crush or open capsule. Must be swallowed whole. Given 12/14/2024 9:06 AM EDT 250 mg Given 12/13/2024 8:47 AM EDT 250 mg Given 12/12/2024 8:24 AM EDT 250 mg sodium chloride 0.9 % infusion 50 mL/hr Continuous, intravenous, Starting on Tue12/11/24 at 1900, For 15 hours New Bag 12/11/2024 7:40 PM EDT 50 mL/hr 50 mL/hr sodium chloride flush 10 mL 10 mL As needed, intravenous, line care, Starting on Tue12/11/24 at 1725, Every 8 hours and PRN to flush valACYclovir (VALTREX) tablet 1,000 mg 1,000 mg Daily, oral, First dose on Tue12/12/24 at 0900 Given 12/14/2024 9:06 AM EDT 1,000 mg Given 12/13/2024 8:47 AM EDT 1,000 mg Given 12/12/2024 8:36 AM EDT 1,000 mg documented in this encounter Active and Recently Administered Medications Times are shown in EDT. Scheduled Medication Order 12/12/2024 12/13/2024 12/14/2024 aspirin EC tablet 81 mg (CANCELED) 81 mg Daily, oral, First dose on Tue12/13/24 at 0900, * DO NOT CRUSH THIS DOSAGE FORM * 0848 (Given - Provider: Samantha Dias RN) aspirin EC tablet 81 mg 81 mg Daily, oral, First dose on Tue12/14/24 at 0900, * DO NOT CRUSH THIS DOSAGE FORM * 0906 (Given - Provider: Mora Munguia, SHARYN) cefTRIAXone (ROCEPHIN) 1 g in sodium chloride 0.9 % (NS) 50 mL EFRAIN IVPB (CANCELED) 1 g Every 24 hours scheduled, intravenous, at 100 mL/hr, First dose on Tue12/11/24 at 1830, For 6 days, Please choose an indication: Pneumonia, Empiric for Fever of Unknown Origin Secondary to Suspected Infection 2119 (IVPB Started - Provider: Freya Roberts RN)2202 (IVPB Stopped - Provider: Freya Roberts RN) 2043 (IVPB Started - Provider: Milvia Price, SHARYN)2112 (IVPB Stopped - Provider: Milvia Price, RN) cefTRIAXone (ROCEPHIN) 1 g in sodium chloride 0.9 % (NS) 50 mL EFRAIN IVPB (COMPLETED) 1 g Every 24 hours scheduled, intravenous, at 100 mL/hr, First dose (after last modification) on Tue12/14/24 at 1000, For 1 dose, Please choose an indication: Pneumonia, Empiric for Fever of Unknown Origin Secondary to Suspected Infection 1131 (IVPB Started - Provider: Mora Munguia RN)1201 (IVPB Stopped - Provider: Mora Munguia, SHARYN) doxycycline (VIBRAMYCIN) capsule 100 mg 100 mg Every 12 hours scheduled, oral, First dose on Tue12/12/24 at 0900, Please choose an indication: Pneumonia 0824 (Given - Provider: Elizabeth Rodriguez RN)2119 (Given - Provider: rFeya Roberts RN) 0848 (Given - Provider: Samantha Dias RN)2043 (Given - Provider: Milvia Price, SHARYN) 09 (Given - Provider: Mora Munguia, SHARYN) enoxaparin (LOVENOX) syringe 40 mg (CANCELED) 40 mg Every Night, subcutaneous, First dose on Tue12/12/24 at 2100, Do not administer within 12 hours of epidural or lumbar puncture. Look-Alike/Sound-Ali ke Alert 2119 (Given - Provider: Freya Roberts RN) enoxaparin (LOVENOX) syringe 40 mg 40 mg Every Night, subcutaneous, First dose on Tue12/14/24 at 2100, Do not administer within 12 hours of epidural or lumbar puncture. Look-Alike/Sound-Ali ke Alert enoxaparin (LOVENOX) syringe 60 mg (CANCELED) 60 mg Every 12 hours scheduled (rounded from 63.2 mg = 1 mg/kg 63.2 kg), subcutaneous, First dose on Tue12/13/24 at 1230, Do not administer within 12 hours of epidural or lumbar puncture. Look-Alike/Sound-Ali ke Alert 1341 (Given - Provider: Samantha Dias RN)2043 (Given - Provider: Milvia Price, RN) famotidine (PEPCID) tablet 20 mg 20 mg Daily, oral, First dose on Tue12/13/24 at 0900, Pharmacist to renally dose if CrCl is less than 50 mL/min or on CRRT. 0848 (Given - Provider: Samantha Dias RN) 0905 (Given - Provider: Mora Munguia, SHARYN) ferric gluconate (FERRLECIT) 125 mg in sodium chloride 0.9 % (NS) 100 mL infusion (COMPLETED) 125 mg Daily, intravenous, Administer over 60 Minutes, First dose on Tue12/12/24 at 1500, For 3 days 1542 (IVPB Started - Provider: Elizabeth Rodriguez RN)1706 (IVPB Stopped - Provider: Elizabeth Rodriguez RN) 1126 (IVPB Started - Provider: Samantha Dias RN)1226 (IVPB Stopped - Provider: Samantha Dias, SHARYN) 1254 (IVPB Started - Provider: Mora Munguia, SHARYN)1354 (IVPB Stopped - Provider: Mora Munguia, SHARYN) gabapentin (NEURONTIN) capsule 300 mg (CANCELED) 300 mg 2 times daily, oral, First dose on Tue12/12/24 at 1200 1214 (Given - Provider: Elizabeth Rodriguez RN)2120 (Given - Provider: Freya Roberts RN) 0848 (Given - Provider: Samantha Dias RN) gabapentin (NEURONTIN) capsule 300 mg 300 mg Every Night, oral, First dose (after last modification) on Tue12/13/24 at 2100 2044 (Given - Provider: Milvia Price RN) melatonin tablet 5 mg 5 mg Every Night, oral, First dose on Tue12/11/24 at 2100 2120 (Given - Provider: Freya Roberts RN) 4 (Given - Provider: Milvia Price RN) multivitamin (THERAGRAN) tablet 1 tablet 1 tablet Daily, oral, First dose on Tue12/13/24 at 0900 0847 (Given - Provider: Samantha Dias RN) 0905 (Given - Provider: Mora Munguia, SHARYN) pantoprazole (PROTONIX) EC tablet 40 mg 40 mg Daily, oral, First dose on Tue12/11/24 at 1800, * DO NOT CRUSH THIS DOSAGE FORM * 0824 (Given - Provider: Elizabeth Rodriguez RN) 0847 (Given - Provider: Samantha Dias RN) 0906 (Given - Provider: Mora Munguia, SHARYN) predniSONE (DELTASONE) tablet 10 mg (CANCELED) 10 mg 2 times daily, oral, First dose on Tue12/12/24 at 1200, Look-alike/Sound-ali ke medication 1214 (Given - Provider: Elizabeth Rodriguez RN) predniSONE (DELTASONE) tablet 10 mg 10 mg TID with Meals, oral, First dose (after last modification) on Tue12/12/24 at 1800, Look-alike/Sound-ali ke medication 1800 (Not Given - Provider: Elizabeth Rodriguez RN - Reason: Patient not available)1836 (Not Given - Provider: Elizabeth Rodriguez RN - Reason: Patient not available - Comment: pt down to MRI at scheduled time)2152 (Given - Provider: Freya Roberts RN - Comment: pt at MRI at due time) 0847 (Given - Provider: Samantha Dias RN)1341 (Given - Provider: Samantha Dias RN)1826 (Given - Provider: Samantha Dias RN) 0906 (Given - Provider: Mora Munguia, SHARYN)1352 (Given - Provider: Mora Munguia, SHARYN) Saccharomyces boulardii (FLORASTOR) capsule 250 mg 250 mg Daily, oral, First dose on Tue12/12/24 at 0900, Do not crush or open capsule. Must be swallowed whole. 0824 (Given - Provider: Elizabeth Rodriguez RN) 0847 (Given - Provider: Samantha Dias, SHARYN) 0906 (Given - Provider: Mora Munguia, SHARYN) valACYclovir (VALTREX) tablet 1,000 mg 1,000 mg Daily, oral, First dose on Tue12/12/24 at 0900 0836 (Given - Provider: Elizabeth Rodriguez RN) 0847 (Given - Provider: Samantha Dais, SHARYN) 0906 (Given - Provider: Mora Munguia, SHARYN) PRN Medication Order 12/12/2024 12/13/2024 12/14/2024 acetaminophen (TYLENOL) tablet 1,000 mg 1,000 mg Every 6 hours PRN, oral, fever greater than or equal to 38C, mild pain (1-3) use first line, headache, Starting on Tue12/11/24 at 1727, Recommended maximum dose of acetaminophen is 4000 mg from all sources in 24 hours 0523 (Given - Provider: Freya Roberts RN)1549 (Given - Provider: Elizabeth Rodriguez, SHARYN) cloNIDine (CATAPRES) tablet 0.1 mg 0.1 mg Every 8 hours PRN, oral, high blood pressure (specify), for SBP greater than 160, Starting on Tue12/11/24 at 1727, Look-alike/Sound-alike medication diphenhydrAMINE (BENADRYL) injection 50 mg 50 mg As needed, intravenous, itching, Anaphylaxis, Starting on Tue12/12/24 at 1437 docusate sodium (COLACE) capsule 100 mg 100 mg 2 times daily PRN, oral, constipation, Starting on Tue12/12/24 at 1056, * DO NOT CRUSH THIS DOSAGE FORM * 1102 (Given - Provider: Elizabeth Rodriguez RN) EPINEPHrine HCl (PF) (ADRENALIN) HYPERSENSITIVITY USE injection 0.3 mg 0.3 mg As needed, subcutaneous, Anaphylaxis, Starting on Tue12/12/24 at 1437, For IM or SUBCUTANEOUS administration only. Do NOT administer via direct IV injection without dilution magnesium sulfate IVPB 2 g in sterile water 50 mL (premix) at 25 mL/hr, Administer over 120 Minutes, intravenous, Daily as needed, for magnesium level 1.3 to 1.7 mg/dL, Starting on Tue12/11/24 at 1726, If magnesium is replaced per protocol order, recheck 1 hour after replacement and the next morning. magnesium sulfate IVPB 2 g in sterile water 50 mL (premix) at 25 mL/hr, Administer over 120 Minutes, intravenous, 2 times daily PRN, for magnesium level less than 1.3 mg/dL, Starting on Tue12/11/24 at 1726, Total dose of 4 g for each low magnesium result. If magnesium is replaced per protocol order, recheck 1 hour after replacement and the next morning. ondansetron (ZOFRAN) injection 4 mg(Linked Group 1) 4 mg Every 8 hours PRN, intravenous, nausea, vomiting, Starting on Tue12/11/24 at 1726, Give IV if patient is unable to take orally. 1st line If inadequate response within 60 minutes, proceed to next-line agent for same PRN reason or contact provider if no further options ordered. For IV push, give over 2 - 5 minutes. ondansetron (ZOFRAN-ODT) disintegrating tablet 4 mg(Linked Group 1) 4 mg Every 8 hours PRN, oral, nausea, vomiting, Starting on Tue12/11/24 at 1726, 1st line. If inadequate response within 60 minutes, proceed to next-line agent for same PRN reason or contact provider if no further options ordered. oxyCODONE (ROXICODONE) immediate release tablet 5 mg 5 mg Every 4 hours PRN, oral, moderate pain (4-6), severe pain (7-10), Starting on Tue12/11/24 at 1727, Look-alike/Sound-alike medication 0542 (Given - Provider: Freya Roberts RN)1043 (Given - Provider: Elizabeth Rodriguez RN)2140 (Given - Provider: Freya Roberts RN) 0453 (Given - Provider: Freya Roberts, SHARYN)1829 (Given - Provider: Samantha Dias RN) potassium chloride (KLOR-CON) ER tablet 40 mEq 40 mEq 4 times daily PRN, oral, for potassium less than or EQUAL to 3.4 mmol/L, Starting on Tue12/11/24 at 1726, Do not crush KCl tablets. If potassium is replaced per protocol order, recheck potassium 2 hour after replacement and the next morning. promethazine (PHENERGAN) 12.5 mg in sodium chloride 0.9 % (NS) 50 mL IVPB (Immediate Use Only)(Linked Group 2) 12.5 mg Every 6 hours PRN, intravenous, at 150 mL/hr, nausea, vomiting, Starting on Tue12/11/24 at 1727, 2nd line. Give IV if patient is unable to take orally. If inadequate response within 60 minutes, proceed to next-line agent for same PRN reason or contact provider if no further options ordered. promethazine (PHENERGAN) tablet 25 mg(Linked Group 2) 25 mg Every 6 hours PRN, oral, nausea, vomiting, Starting on Tue12/11/24 at 1727, 2nd line. If inadequate response within 60 minutes, proceed to next-line agent for same PRN reason or contact provider if no further options ordered. sodium chloride flush 10 mL(Linked Group 3) 10 mL As needed, intravenous, line care, Starting on Tue12/11/24 at 1725, Every 8 hours and PRN to flush Linked Groups Order Group 1: ondansetron (ZOFRAN-ODT) disintegrating tablet 4 mgJump to med 4 mg Every 8 hours PRN, oral, nausea, vomiting, Starting on Tue12/11/24 at 1726, 1st line. If inadequate response within 60 minutes, proceed to next-line agent for same PRN reason or contact provider if no further options ordered. Or ondansetron (ZOFRAN) injection 4 mgJump to med 4 mg Every 8 hours PRN, intravenous, nausea, vomiting, Starting on Tue12/11/24 at 1726, Give IV if patient is unable to take orally. 1st line If inadequate response within 60 minutes, proceed to next-line agent for same PRN reason or contact provider if no further options ordered. For IV push, give over 2 - 5 minutes. Group 2: promethazine (PHENERGAN) tablet 25 mgJump to med 25 mg Every 6 hours PRN, oral, nausea, vomiting, Starting on Tue12/11/24 at 1727, 2nd line. If inadequate response within 60 minutes, proceed to next-line agent for same PRN reason or contact provider if no further options ordered. Or promethazine (PHENERGAN) 12.5 mg in sodium chloride 0.9 % (NS) 50 mL IVPB (Immediate Use Only)Jump to med 12.5 mg Every 6 hours PRN, intravenous, at 150 mL/hr, nausea, vomiting, Starting on Tue12/11/24 at 1727, 2nd line. Give IV if patient is unable to take orally. If inadequate response within 60 minutes, proceed to next-line agent for same PRN reason or contact provider if no further options ordered. Group 3: Insert Peripheral IV (CANCELED) STAT, Once, On Tue12/11/24 at 1726, For 1 occurrence And Saline Lock IV (CANCELED) Routine, Once, On Tue12/11/24 at 1726, For 1 occurrence And sodium chloride flush 10 mLJump to med 10 mL As needed, intravenous, line care, Starting on Tue12/11/24 at 1725, Every 8 hours and PRN to flush documented in this encounter Care Teams Education Reviewer Relationship Specialty Start Date End Date Eladio Lomas MD [address] [facility] [address] [address] Medical Oncologist Hematology and Oncology 07/08/22 Breanna Crow PA-C [address] [facility] [address] [place] [address] Physician Net Software Developer Oncology 07/08/22 documented as of this encounter
--- OUTSIDE RECORDS SUMMARY | 2024-12-14 15:15 | XMS_ITS | Encounter Summary ---
Author Organization [employer] ([place], [place], [place], [place]) Address [address] [place] [address] Care Team Providers Care Senior Product Designer Name Role Phone Eladio Lomas MD Unavailable Breanna Crow PA-C Unavailable [phone] Reason for Visit * Reason Comments Event Monitor * Consultation (Routine) - Closed Specialty Diagnoses / Procedures Referred By Contac t Referred To Contact Cardiology Diagnoses Palpitations Procedures HOLTER MONITOR Phuong العراقي MD [address] [place] [address] [address] [place] [address] Phone: tel: fax: [facility] Electrophysiology [address] [place] [phone] Phone: tel: fax: Referral ID Status Reason Start Date Expiration Date Visits Re quested Visits Authorized [id number] Closed 12/14/2024 12/14/2025 1 1 Encounter Details Date Type Department Care Team (Late st Contact Info) Description 12/14/2024 3:15 PM EDT Clinical Support [facility] Electrophysiology [address] [place] [phone] Patricia Kapoor MA Palpitations Social History [...] Do you speak a language other than [place] at [facility]? No 12/11/2024 Do you want help with [...] on file documented as of this encounter Progress Notes * Patricia Kapoor MA - 12/14/2024 3:15 PM EDT documented in this encounter Plan of Treatment Upcoming Encounters Date Type Department Care Team (Late st Contact Info) Description 01/28/2025 9:45 AM EDT Office Visit [facility] Electrophysiology [address] [place] [phone] Phuong Lewis MD [address] [place] [address] [address] [place] [address] documented as of this encounter Procedures Procedure Name Priority Date/Time Associated Diagnosis Comments HOLTER MONITOR HOOKUP Routine 01/14/2025 3:26 PM EDT Palpitations documented in this encounter Results * HOLTER MONITOR HOOKUP (01/14/2025 3:26 PM EDT) Anatomical Region Laterality Modality Other us Phuong Lewis MD CV CARDIAC SERVICES ORDERABLES Final Result documented in this encounter Visit Diagnoses Diagnosis Palpitations documented in this encounter Care Teams Senior Product Designer Relationship Specialty Start Date End Date Eladio Lomas MD [facility] [place] [address] Medical Oncologist Hematology and Oncology 07/08/22 Breanna Crow PA-C [facility] [place] [id number] Physician Outside Deliverer Oncology 07/08/22 documented as of this encounter
--- OUTSIDE RECORDS SUMMARY | 2025-01-23 09:23 | XMS_ITS | Clinical Summary ---
Author Organization [facility] Address [address] [place] [address] Care Team Providers Care Block Paver Name Role Phone Per Patient, None Primary [...] or (1 - 1-dose 75+ series) 01/05/2023 [id number] Vaccine (4 - season) 2024 07/25/2020, 06/24/2020, 06/11/2020 [id number]-Influenza [...] this topic Insurance [employer] MEDICARE Care Teams Block Paver Relationship Specialty Start Date End Date Per Patient, [place] [address] PCP - General 05/02/20
--- OUTSIDE RECORDS SUMMARY | 2025-01-23 09:23 | XMS_ITS | Clinical Summary ---
Author Organization [facility] Address [address] [facility] [address] [place] [address] Phone Care Team Providers Care Repairer Shoe Sticks Name Role Phone Godfrey ALFARO, José Miguel Michaels [facility] [phone] [ ] Conditions or Problems Problem Name Problem Code Onset Date Status Entry Date Provider Comment Standard Description Annotate Acute DVT of leg, right 506525378 (SNOMED CT) Active José Miguel Donahue MD Deep venous thrombosis of lower extremity Health advice, education, or counseling 683216034 (SNOMED CT) Active José Miguel Donahue MD Procedure carried out on subject PERSONAL HISTORY OF IMMUNOSUPPRES PILLO THERAPY 564549803 (SNOMED CT) 12/10 Active 12/10 José Miguel Donahue MD History of immunosuppressiv e therapy Foot drop, right 9347636 (SNOMED CT) 10/27 Active 10/27 José Miguel Donahue MD Foot-drop Benign Essential Hypertension 22996798 (SNOMED CT) 10/22 Active 10/22 Dorothy Juanpablo Benign hypertension Disseminated herpes zoster 22103321 (SNOMED CT) 10/22 Active 10/22 Dorothy Juanpablo Disseminated herpes zoster 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 10/22 Dorothy Juanpablo Leukemoid reaction Chronic lymphoid leukemia 31238945 (SNOMED CT) 10/22 Active 10/22 Dorothy Juanpablo Chronic lymphoid leukemia, disease Medications Medication Instructions Start Date Stop Date Generic Name [facility] Provider ELIQUIS 5 MG TABS twice a day apixaban 02039112879 Tonia Noland VALTREX 1 GM TABS Take 1 tablet by mouth once a day valacyclovir 50428041039 José Miguel Donahue MD ALLOPURINOL 300 MG TABS 1 tablet by mouth once a day allopurinol 28776776420 Suzanne Cope ELIQUIS 5 MG TABS 2 tablet by mouth twice a day apixaban 94633636045 Suzanne Cope PREDNISONE 10 MG TABS Take as directed prednisone 27058941049 Suzanne Cope VALTREX 500 MG TABS 2 tablet by mouth once a day valacyclovir 07291448054 Faby Donahue VALTREX 1 GM TABS Take 1 tablet by mouth once a day valacyclovir 72471972428 Faby Donahue ALLOPURINOL 300 MG TABS 1 tablet by mouth once a day allopurinol 24299582812 Marianayvette Wiggins ELIQUIS 5 MG TABS 2 tablet by mouth twice a day apixaban 12908624178 Marianayvette Wiggins Lactobacillus acidophilus 1 billion cell capsule 1 capsule by mouth twice a day lactobacillus acidophilus Mariana Wiggins MULTI-VITAMINS TABS multivitamin 18175469194 Mariana Wiggins PREDNISONE 10 MG TABS Take as directed prednisone 27067673369 Mariana Wiggins TYLENOL 325 MG TABS 2 tablet by mouth every four hours as needed acetaminophen 74792251073 Mariana Wiggins VALTREX 500 MG TABS 2 tablet by mouth once a day valacyclovir 35518657063 Mariana Rosalie Medications Administered No information available. [...] Labs CPT-sl STAT Labs CPT-sl STAT Labs [id number]-53492 CMP [id number] CBC with Differential 2021 Vital Signs Date [...]
--- OUTSIDE RECORDS SUMMARY | 2025-01-23 09:23 | XMS_ITS | Encounter Summary ---
Author Organization [employer] ([place], [place], [place], [place]) Address [address] [place] [address] Care Team Providers Care Painter Mirror Name Role Phone Eladio Lomas MD Unavailable Breanna Crow PA-C Unavailable Reason for Visit * Reason Onset Date Comments Hospital Follow Up 12/18/2024 Encounter Details Date Type Department Care Team (Late st Contact Info) Description 12/18/2024 Telephone [place] [address] [address] [place] [phone] Phuong Lewis MD [address] [facility] [address] [place] [address] Hospital Follow Up Social History Tobacco Use [...] Do you speak a language other than Mauritian at [facility]? No 12/11/2024 Do you want help [...] Miscellaneous Notes * Telephone Encounter - Earnestine B Eyad - 12/18/2024 11:59 AM EDT of aware of neurology appt, she states that patient will not be going to see pcp - would rather f/u with oncology instead. Matilda Arita APRN Neurology Nurse Practitioner [phone] [facility] [address] [phone] Next Steps: Go on 01/23/2025 Instructions: Appt time is 11 am. documented in this encounter Plan of Treatment Upcoming Encounters Date Type Department Care Team (Late st Contact Info) Description 01/28/2025 9:45 AM EDT Office Visit [facility] Electrophysiology [address] [place] [phone] [place] [address] [place] [address] [address] [place] [address] documented as of this encounter Visit Diagnoses Not on filedocumented in this encounter Care Teams Painter Mirror Relationship Specialty Start Date End Date Eladio Lomas MD [address] [facility] [address] [place] [address] Medical Oncologist Hematology and Oncology 07/08/22 Breanna Crow PA-C [address] [facility] [address] [place] [address] Physician Nursing Technician Oncology 07/08/22 documented as of this encounter
--- OUTSIDE RECORDS SUMMARY | 2025-01-23 09:23 | XMS_ITS | Encounter Summary ---
Author Organization [facility] Address [address] [place] [place] [id number] Care Team Providers Care Fuel Handler Name Role Phone Per Patient, None Primary Care Provider Unavaila ble Encounter Details Date Type Department Care Team ([facility] st Contact Info) Description 10/08/2021 Lab Requisition [facility] [address] [place] [address] Maurice Power MD [facility] [place] [address] Unspecified lesions of oral mucosa [...] billing purposes only. 10/26/2021 7:22 AM EDT [facility] at 0722 EDT Case Report Surgical Pathology Report Case: [id number] Authorizing Provider: Maurice Power MD Collected: 10/08/2021 Ordering Location: [facility] Received: 10/08/2021 0402 Pathologist: Cindy Flores MD Specimen: [id number] 10/26/2021 7:22 AM EDT [facility] Tissue 10/08/2021 10/08/2021 4:5 9 PM EDT us Maurice Power MD LAB PATHOLOGY ORDERABLES Final Result [facility] [address] [place] [address] documented in this encounter Visit Diagnoses Diagnosis Unspecified lesions of oral mucosa documented in this encounter Care Teams Fuel Handler Relationship Specialty Start Date End Date Per Patient, [place] [address] PCP - General 05/02/20 documented as of this encounter
--- OUTSIDE RECORDS SUMMARY | 2025-01-23 09:24 | XMS_ITS | Referral Summary ---
Author Organization [employer] ([place], [place], [place], [place]) Address [address] [place] [address] Care Team Providers Care Milk Processing Worker Name Role Phone Eladio Lomas MD Unavailable Breanna Crow PA-C Unavailable [phone] Encounters Date Type Department Care Team Description 12/18/2024 Telephone [facility] [place] [address] [address] [address] [place] [address] Phuong Lewis MD Hospital Follow Up 12/14/2024 3:15 PM EDT Clinical Support [facility] Electrophysiology [address] [place] [address] Patricia Kapoor MA Palpitations 12/14/2024 Orders Only [facility] Electrophysiology [address] [place] [address] Covert, Dorothy MALANIS Palpitations (Primary Dx) 12/11/2024 4:55 PM EDT - 12/14/2024 2:40 PM EDT Hospital Encounter [facility] [place] [address] [address] [place] [address] Pietro Toure MD Hughes, Isaac, [...] nostril daily as needed for rhinitis. Active levocetirizine (XYZAL) 5 MG tablet Take 1 tablet (5 mg total) by mouth nightly. Active predniSONE (DELTASONE) 10 MG tablet Take 1 tablet (10 mg total) by mouth daily with breakfast. Active acalabrutinib (CALQUENCE) 100 mg tablet Take 1 tablet (100 mg total) by mouth every 12 (twelve) hours Restart based on recommendations per your Oncologist. 12/15/19 Active aspirin 81 MG EC tablet Take 1 tablet (81 mg total) by mouth daily for 30 days. 30 tablet 1 12/16/19 25 025 ferrous gluconate 324 mg (37.5 mg iron) tab Take 1 tablet (324 mg total) by mouth daily for 30 days. 30 tablet 2 12/15/19 025 gabapentin (NEURONTIN) 300 MG capsule Take 1 capsule (300 mg total) by mouth nightly for 30 days. Max Daily Amount: 300 mg 30 capsule 12/15/19 25 025 Active Problems Problem Noted Date Diagnosed Date [...] How often do you attend chur or sabianism services? Never 07/08/2022 Do you [...] Do you speak a language other than [place]auan at [facility]? No 12/11/2024 Do you want [...] Description 01/28/2025 9:45 AM EDT Office Visit [facility] Electrophysiology [address] [place] [address] Phuong Lewis MD [address] [place] [address] [address] [place] [address] Procedures Procedure Name Priority Date/Time Associated Diagnosis Comments HOLTER MONITOR HOOKUP Routine 01/14/2025 3:26 PM EDT Palpitations MANUAL DIFFERENTIAL Routine 12/14/2024 5 :35 AM [...] EDT from Last 3 Months Results * HOLTER MONITOR HOOKUP (01/14/2025 3:26 PM EDT) Anatomical Region Laterality Modality Other us Phuong Lewis MD CV CARDIAC SERVICES ORDERABLES Final Result * (ABNORMAL) CBC with automated diff (12/14/2024 5:35 AM EDT) Only the most recent of2 resultswithin the time period is included. WBC 22.2(H) 4.2 - 9.1 K/ L 12/14/2024 6:17 AM EDT [facility] RBC 2.63(L) 4.63 - 6.08 M/ L 12/14/2024 6:17 AM EDT [facility] Hemoglobin 8.2(L) 13.7 - 17.5 GM/DL 12/14/2024 6:17 AM EDT [facility] Hematocrit 25.9(L) 40.1 - 51.0 % 12/14/2024 6:17 AM EDT [facility] MCV 99(H) 79 - 92 fL 12/14/2024 6:17 AM EDT [facility] MCH 31.2 25.7 - 32.2 pg 12/14/2024 6:17 AM EDT [facility] MCHC 31.7(L) 32.3 - 36.5 GM/DL 12/14/2024 6:17 AM EDT [facility] RDW 15.0(H) 11.6 - 14.4 % 12/14/2024 6:17 AM EDT [facility] Platelets 177 140 - 375 K/CU MM 12/14/2024 6:17 AM EDT [facility] MPV 9.9 9.4 - 12.4 fL 12/14/2024 6:17 AM EDT [facility] NRBC Absolute <0.01 0 - 0.012 K/ul 12/14/2024 6:17 AM EDT [facility] Blood Venipuncture / Unknown 12/14/2024 5:35 AM EDT 12/14/2024 6:05 AM EDT Narrative [facility] - 12/14/2024 6:17 AM EDT When [...] MD LAB BLOOD ORDERABLES Final Res ult [facility] [address] [phone] * (ABNORMAL) Manual Differential (12/14/2024 5:35 AM EDT) Only the most recent of2 resultswithin the time period is included. Total Counted 100 12/14/2024 8:02 AM EDT [facility] % Neutros (manual) 13(L) 50 - 65 % 12/14/2024 8:02 AM EDT [facility] % Lymphs (manual) 86(H) 24 - 44 % 025 8:02 AM EDT [facility] % Monos (manual) 1(L) 4 - 5 % 12/15/19 25 8:02 AM EDT [facility] RBC Morphology abnormal(A) Normal 8:02 AM EDT [facility] Platelet Estimate Adequate Adequate 025 8:02 AM EDT [facility] Anisocytosis 1+ 12/14/2024 8:02 AM EDT [facility] Hypochromia 1+ 12/14/2024 8:02 AM EDT [facility] Polychromasia 1+ 12/14/2024 8:02 AM EDT [facility] Smudge Cells Present 12/14/2024 8:02 AM EDT [facility] Macrocytes 1+ 12/14/2024 8:02 AM EDT [facility] ANC# 2.89 K/ L 12/14/2024 8:02 AM EDT [facility] Blood Venipuncture / Unknown 12/14/2024 5:35 AM EDT 12/14/2024 6:05 AM EDT us Matt Vargas MD LAB BLOOD ORDERABLES Final Res ult Performing Organization Address City/State/[facility] Co de Phone Number [facility] [address] [phone] * (ABNORMAL) Basic Metabolic Panel (12/14/2024 5:35 AM EDT) Only the most recent of3 resultswithin the time period is included. Sodium 142 136 - 145 meq/L 12/14/2024 6:48 AM EDT [facility] Potassium 3.9 3.4 - 5.1 meq/L 12/14/2024 6:48 AM EDT [facility] CO2 25 22 - 29 meq/L 12/14/2024 6:48 AM EDT [facility] Chloride 108 98 - 112 meq/L 12/14/2024 6:48 AM EDT [facility] Glucose 120(H) 82 - 115 mg/dL 12/14/2024 6:48 AM EDT [facility] BUN 14.4 8.4 - 25.7 mg/dL 12/14/2024 6:48 AM EDT [facility] Creatinine 0.68(L) 0.72 - 1.25 mg/dL 12/14/2024 6:48 AM EDT [facility] BUN/Creatinine 21(H) 8 - 20 12/14/2024 6:48 AM EDT [facility] Calcium 7.7(L) 8.4 - 10.2 mg/dL 12/14/2024 6:48 AM EDT [facility] Anion Gap 13(H) 4 - 12 12/14/2024 6:48 AM EDT [facility] eGFR (mL/min/1.73m2) 96 >=60 mL/min/1.7 3m2 12/14/2024 6:48 AM EDT [facility] Osmolality Calc 284.9 mOsm/kg 6:48 AM EDT [facility] Blood Venipuncture / Unknown 12/14/2024 5:35 AM EDT 12/14/2024 6:18 AM EDT us Maria Guadalupe Lopez MD LAB BLOOD ORDERABLES Final Re sult [facility] [address] [phone] * Sedimentation rate (12/13/2024 6:09 PM EDT) Sed Rate 10 0 - 20 mm/HR 12/13/2024 6:24 PM EDT [facility] Blood Venipuncture / Unknown 12/13/2024 6:09 PM EDT 12/13/2024 6:20 PM EDT us Jaron Amin MD LAB BLOOD ORDERABLES Final Resul t Performing Organization Address City/[facility]/ZIP Co de Phone Number [facility] [address] [phone] * ECHO COMPLETE (DOPPLER / COLOR) WO CONTRAST (12/13/2024 1:08 PM EDT) Anatomical Region Laterality Modality Heart Vascular Ultraso und 12/13/2024 12:1 1 PM EDT Narrative 12/13/2024 11:34 PM EDT TRANSTHORACIC ECHOCARDIOGRAPHY REPORT Demographics Patient Name: SANDIE KOROMA : 1950 Age: 74 year(s) Corporate ID Number: [id number] Gender Male Director Human Services: Jillian Souza Height: 65 inches RDCS Referring [...] 1.15 m/s E/A ratio: 1.42 m/s Volume [id number] LV length: 8.99 cm ml Volume fkboijau22.92 ml LVOT diameter: 2.03 cm Normal sized [...] Valve TR velocity: 3 m/s TR gradient: 35.48907 mmHg Estimated RAP: 8 mmHg RVSP: 43.96 [...] 1950 Age: 74 year(s) Corporate ID Number: [id number] Gender Male Director Human Services: Jillian Souza Height: 65 inches [place] [...] 1.15 m/s E/A ratio: 1.42 m/s Volume heujqwpuo544.52 LV length: 8.99 cm ml Volume .92 [...] Valve TR velocity: 3 m/s TR gradient: 35.98381 mmHg Estimated RAP: 8 mmHg RVSP: 43.96 [...] Demographics Patient Name SANDIE SMITH Age 74 [place] Patient Number [id number] Gender Male Race Ethnicity Corporate ID [id number] Height 65 Date of 1950 Weight 139 Accession Number [id number] BSA 1.69 m^2 Room Number 405 BMI 23.13 kg/m^2 Referring Alyson Ferguson MD Interpreting BEBETO WALTER MD Physician Physician Director Human Services Rosy Guido, RVT Procedure Type of Study: Veins: Venous [...] SANDIE SMITH Age 74 [place] Patient Number [id number] Gender Male Race Ethnicity Corporate ID [id number] Height 65 Date of 1950 Weight 139 Accession Number [id number] BSA 1.69 m^2 Room Number 405 BMI 23.13kg/m^2 Referring Alyson Ferguson MD Interpreting BEBETO PERALTA Physician Physician Director Human Services Rosy Guido RVT Procedure Type of Study: Veins: Venous Duplex, Venous Duplex Legs, Lower Extremities DVT Study,US DOPPLER VENOUS LEGS BILATERAL. Impressions Summary INDICATION: Personal history of DVT Z86.378 . ############################### BILATERAL: No evidence of deep [...] Demographics Patient Name SANDIE SMITH Age 74 [place] Patient Number [id number] Gender Male Race Ethnicity Corporate ID [id number] Height 65 Date of 1950 Weight 139 Accession Number [id number] BSA 1.69 m^2 Room Number 405 BMI 23.13 kg/m^2 Referring MARIA GUADALUPE LOPEZ MD Interpreting BEBETO WALTER MD Physician Physician Director Human Services Rosy Guido, T Procedure Type of Study: [...] Demographics Patient Name SANDIE SMITH Age 74 [place] Patient Number [id number] Gender Male Race Ethnicity Corporate ID [id number] Height 65 Date of 1950 Weight 139 Accession Number [id number] BSA 1.69 m^2 Room Number 405 BMI 23.13kg/m^2 Referring MARIA GUADALUPE LOPEZ MD Interpreting BEBETO PERALTA Physician Physician Director Human Services Rosy Guido RVT Procedure Type of Study: [...] (ABNORMAL) C-Reactive Protein (12/13/2024 5:12 AM EDT) Pathologist [facility] CRP 92.6(H) 0.0 - 5.0 mg/L 12/13/2024 6:10 PM EDT [facility] Blood Venipuncture / Unknown 12/13/2024 5:12 AM EDT 12/13/2024 5:24 AM EDT Jaron Amin MD LAB BLOOD ORDERABLES Final Resul t [facility] [address] [phone] * Vitamin D, 25-Hydroxy (12/13/2024 5:12 AM EDT) Pathologist [facility] Vitamin D 25-Hydroxy 31.33 30 - 80 ng/mL 12/13/2024 6:13 AM EDT [facility] Blood Venipuncture / Unknown 12/13/2024 5:12 AM EDT 12/13/2024 5:24 AM EDT Maria Guadalupe Lopez MD LAB BLOOD ORDERABLES Final Re sult Performing Organization Address [facility] Co de Phone Number [facility] [address] [phone] * TSH (12/13/2024 5:12 AM EDT) TSH 2.613 0.350 - 4.940 uIU/mL 12/13/2024 6:07 AM EDT [facility] Blood Venipuncture / Unknown 12/13/2024 5:12 AM EDT 12/13/2024 5:24 AM EDT Maria Guadalupe Lopez MD LAB BLOOD ORDERABLES Final Re sult Performing Organization Address [facility] Co de Phone Number [facility] [address] [phone] * Magnesium (12/13/2024 5:12 AM EDT) Pathologist [facility] Magnesium 2.2 1.6 - 2.6 mg/dL 12/13/2024 3:16 PM EDT [facility] Blood Venipuncture / Unknown 12/13/2024 5:12 AM EDT 12/13/2024 5:24 AM EDT Phuong Lewis MD LAB BLOOD ORDERABLES Final Resu lt Performing Organization Address [facility] Co de Phone Number [facility] [address] [phone] * (ABNORMAL) Lipid panel (12/13/2024 5:12 AM EDT) Pathologist [facility] Triglycerides 108 <=149 mg/dL 12/13/2024 8:20 AM EDT [facility] Comment: Normal: < 150 mg/dL Borderline High: 150 to 199 mg/dL High: 200 to 499 mg/dL Very High: >/= 500 mg/dL Cholesterol 81(L) 100 - 199 mg/dL 12/13/2024 8:20 AM EDT [facility] Comment: Child: Desirable: < 170 mg/dL Borderline: 170 to 199 mg/dL High: >/= 200 mg/dL Adult: Desirable: < 200 mg/dL Borderline: 200 to 239 mg/dL High: >/= 240 mg/dL HDL Cholesterol 12 See Comment mg/dL 12/13/2024 8:20 AM EDT [facility] Comment: Major risk factor for heart disease: < 40 mg/dL Negative risk factor for heart disease: >/= 60 mg/dL LDL Cholesterol, Calculated 47 0 - 100 mg/dL 12/13/2024 8:20 AM EDT [facility] Comment: Unable to calculate Optimal: < 100 mg/dL Near or above optimal: 100 to 129 mg/dL Borderline high: 130 to 159 mg/dL High: 160 to 189 mg/dL Very high: >/= 190 mg/dL Based on AHA/NCEP Guidelines LDl/HDL Ratio 4 0 - 4 12/13/2024 8:20 AM EDT [facility] Comment:Unable to calculate. Cholesterol/HDL ratio 6.8(H) 0.0 - 5.0 mg/dL 12/13/2024 8:20 AM EDT [facility] VLDL Cholesterol 21.6 5 - 40 mg/dL 12/13/2024 8:20 AM EDT [facility] Comment:Unable to calculate Blood Venipuncture / Unknown 12/13/2024 5:12 AM EDT 12/13/2024 5:24 AM EDT us Maria Guadalupe Lopez MD LAB BLOOD ORDERABLES Final Re sult [facility] [address] [phone] * MR Brain Without IV Contrast (12/12/2024 [...] stenosis. Images reviewed, interpreted, and dictated by MD Torey Saha 12/12/2024 6:56 PM EDT MRI CERVICAL SPINE [...] pneumonia- see comment 12/12/2024 12:09 PM EDT [facility] Urine URINE / Unknown 12/12/2024 1 1:48 AM EDT 12/12/2024 11:48 AM EDT Narrative [facility] - 12/12/2024 12:09 PM EDT A presumptive negative result suggests no current or recent pneumococcal infection. Infection due to S. pneumoniae cannot be ruled out since the antigen present in the specimen may be below the detection limit of the test. us Maria Guadalupe Lopez MD MICROBIOLOGY - GENERAL ORDERA BLES Final Result Performing Organization Address [facility] Co de Phone Number [facility] [address] [phone] * Legionella antigen, urine (12/12/2024 11:48 AM EDT) Legionella Urine Antigen Presumptive negative for L. pneumophila serogroup 1 antigen in urine- see comment Presumptive negative for L. pneumophila serogroup 1 antigen in urine- see comment 12/12/2024 12:08 PM EDT [facility] Urine 12/12/2024 11:4 8 AM EDT 12/12/2024 11:48 AM EDT Narrative [facility] - 12/12/2024 12:08 PM EDT Presumptive [...] URINE ORDERABLES Final Result Performing Organization Address [facility] Co de Phone Number [facility] [address] [phone] * Respiratory Panel (12/12/2024 10:27 AM EDT) ADENOVIRUS Not detected Not detected 12/12/2024 11:25 AM EDT [facility] CORONAVIRUS 229E Not detected Not detected 12/12/2024 11:25 AM EDT [facility] CORONAVIRUS HKU1 Not detected Not detected 12/12/2024 11:25 AM EDT [facility] CORONAVIRUS NL63 Not detected Not detected 12/12/2024 11:25 AM EDT [facility] CORONAVIRUS OC43 Not detected Not detected 12/12/2024 11:25 AM EDT [facility] SARS-COV2/RT-PCR Not Detected Not Detected 12/12/2024 11:25 AM EDT [facility] HUMAN METAPNEUMOVIRUS Not detected Not detected 12/12/2024 11:25 AM EDT [facility] HUMAN RHINOVIRUS/ENTEROV IRUS Not detected Not detected 12/12/2024 11:25 AM EDT [facility] INFLUENZA A Not detected Not detected 12/12/2024 11:25 AM EDT [facility] INFLUENZA B Not detected Not detected 12/12/2024 11:25 AM EDT [facility] PARAINFLUENZA VIRUS 1 Not detected Not detected 12/12/2024 11:25 AM EDT [facility] PARAINFLUENZA VIRUS 2 Not detected Not detected 12/12/2024 11:25 AM EDT [facility] PARAINFLUENZA VIRUS 3 Not detected Not detected 12/12/2024 11:25 AM EDT [facility] PARAINFLUENZA VIRUS 4 Not detected Not detected 12/12/2024 11:25 AM EDT [facility] RESPIRATORY SYNCYTIAL VIRUS Not detected Not detected 12/12/2024 11:25 AM EDT [facility] BORDETELLA PARAPERTUSSIS Not detected Not detected 12/12/2024 11:25 AM EDT [facility] BORDETELLA PERTUSSIS Not detected Not detected 12/12/2024 11:25 AM EDT [facility] CHLAMYDIA PNEUMONIAE Not detected Not detected 12/12/2024 11:25 AM EDT [facility] MYCOPLASMA PNEUMONIAE Not detected Not detected 12/12/2024 11:25 AM EDT [facility] Nasopharyngeal NASOPHARYNGEAL SWAB / Unknown 12/12/2024 10:27 AM EDT 12/12/2024 10:[address] [facility] - 12/12/2024 11:25 AM EDT Testing was performed with RT-PCR methodology using the 8bit Respiratory Panel 2.1 which has FDA De [...] decisions. This sample was tested at the [facility] using the [employer] CareArray Respiratory Panel. It is FDA cleared and has been verified and approved by the [facility] for clinical use on nasopharyngeal swab specimens. The performance of the FilmArray RP has not been established in individuals who received influenza vaccine. Recent administration of a nasal influenza vaccine may cause false positive results for Influenza A and/or Influenza B. Maria Guadalupe Lopez MD MICROBIOLOGY - GENERAL ORDERA BLES Final Result [facility] [address] [phone] * MRSA Screen (12/12/2024 10:27 AM EDT) [facility] MRSA by PCR [facility] MRSA Not Detected by PCR MRSA Not Detected by PCR DEVICE ID9 12/12/2024 11:45 AM EDT [facility] Nasal BOTH ANTERIOR NARES / Unknown 12/12/2024 10:27 AM EDT 12/12/2024 10:28 AM EDT Maria Guadalupe Lopez MD MICROBIOLOGY - GENERAL ORDERA BLES Final Result [facility] [address] [place] [address], [facility] [phone] * XR chest AP portable (12/12/2024 9:10 [...] 9.1 K/ L 12/12/2024 4:46 AM EDT [facility] RBC 2.60(L) 4.63 - 6.08 M/ L 12/12/2024 4:46 AM EDT [facility] Hemoglobin 8.2(L) 13.7 - 17.5 GM/DL 12/12/2024 4:46 AM EDT [facility] Hematocrit 25.8(L) 40.1 - 51.0 % 12/12/2024 4:46 AM EDT [facility] MCV 99(H) 79 - 92 fL 12/12/2024 4:46 AM EDT [facility] MCH 31.5 25.7 - 32.2 pg 12/12/2024 4:46 AM EDT [facility] MCHC 31.8(L) 32.3 - 36.5 GM/DL 12/12/2024 4:46 AM EDT [facility] RDW 14.8(H) 11.6 - 14.4 % 12/12/2024 4:46 AM EDT [facility] Platelets 168 140 - 375 K/CU MM 12/12/2024 4:46 AM EDT [facility] MPV 9.7 9.4 - 12.4 fL 12/12/2024 4:46 AM EDT [facility] Blood Venipuncture / Unknown 12/12/2024 3:51 AM EDT 12/12/2024 4:35 AM EDT us Aneudy Fitch PA-C LAB BLOOD ORDERABLES Final Res ult [facility] [address] [place] [address] * (ABNORMAL) Iron and TIBC (12/12/2024 3:51 AM EDT) Iron 11(L) 65 - 175 ug/dL 12/12/2024 10:35 AM EDT [facility] TIBC 183(L) 250 - 435 ug/dL 12/12/2024 10:35 AM EDT [facility] % Saturation 6 % 12/12/2024 10:35 AM EDT [facility] UIBC 172 12/12/2024 10:35 AM EDT [facility] Blood Venipuncture / Unknown 12/12/2024 3:51 AM EDT 12/12/2024 4:38 AM EDT us Maria Guadalupe Lopez MD LAB BLOOD ORDERABLES Final Re sult Performing Organization Address [facility] Co de Phone Number [facility] [address] [phone] * (ABNORMAL) Ferritin (12/12/2024 3:51 AM EDT) Ferritin 474.71(H) 21.81 - 274.66 ng/mL 12/12/2024 10:35 AM EDT [facility] Blood Venipuncture / Unknown 12/12/2024 3:51 AM EDT 12/12/2024 4:38 AM EDT Maria Guadalupe Lopez MD LAB BLOOD ORDERABLES Final Re sult Performing Organization Address [facility] Co de Phone Number [facility] [address] [phone] * Vitamin B12 (12/12/2024 3:51 AM EDT) Vitamin B12 439 213 - 816 pg/mL 12/12/2024 10:35 AM EDT [facility] Blood Venipuncture / Unknown 12/12/2024 3:51 AM EDT 12/12/2024 4:38 AM EDT Maria Guadalupe Lopez MD LAB BLOOD ORDERABLES Final Re sult Performing Organization Address [facility] Co de Phone Number [facility] [address] [phone] from Last 3 Months Insurance [facility] MEDICARE PPO [facility] MEDICARE PPO Advance Directives For more information, please contact: [phone] * DNR - Limited Additional Intervention (Latest Code Status on File) Date Activated Date Inactivated Comments 12/11/2024 4:28 PM 12/14/2024 3:42 PM Care Teams Milk Processing Worker Relationship Specialty Start Date End Date Eladio Lomas MD [address] [facility] [place] [address] Medical Oncologist Hematology and Oncology 07/08/22 Breanna Crow, PARebelC [address] [facility] [address] [place] [address] Physician Water Chemist Oncology 07/08/22
--- OUTSIDE RECORDS SUMMARY | 2025-01-23 09:24 | XMS_ITS | Clinical Summary ---
Author Organization [facility] [place] - [facility] ([place], [place] Address [address] [place] [address] Care Team Providers Care Technical Maintenance Technician Name Role Phone Eladio Lomas MD Unavailable Breanna Crow PA-C Unavailable [phone] Allergies Active Allergy Reactions Criticality Noted [...] based on recommendations per your Oncologist. 12/15/19 25 Active aspirin 81 MG EC tablet Take 1 tablet (81 mg total) by mouth daily for 30 days. 30 tablet 1 12/16/19 25 025 ferrous gluconate 324 mg (37.5 mg iron) tab Take 1 tablet (324 mg total) by mouth daily for 30 days. 30 tablet 2 12/15/19 25 025 gabapentin (NEURONTIN) 300 MG capsule Take 1 capsule (300 mg total) by mouth nightly for 30 days. Max Daily Amount: 300 mg 30 capsule 12/15/19 25 025 Active Problems Problem Noted Date Diagnosed Date Weakness 12/11/2024 Pneumonia 12/11/2024 Hyponatremia 12/11/2024 Hypercoagulable state 04/16/2023 CLL (chronic lymphocytic leukemia) 03/29/2022 Encounters Date Type Department Care Team Description 12/18/2024 Telephone [place] [address] Interventional Care Unit 1 [place] [phone] Phuong Lewis MD Hospital Follow Up 12/14/2024 3:15 PM EDT Clinical Support [facility] Electrophysiology [address] [place] [address] Patricia Kapoor MA Palpitations 12/14/2024 Orders Only [facility] Electrophysiology [address] [place] [address] Covert, Dorothy Urena CMA Palpitations (Primary Dx) 12/11/2024 4:55 PM EDT - 12/14/2024 2:40 PM EDT Hospital Encounter [place] [address] Interventional Care Unit [address] [place] [phone] Pietro Toure MD Hughes, Isaac, PA-C Galdass, [...] 07/08/2022 How often do you attend [employer] or religion services? Never 07/08/2022 Do you [...] Do you speak a language other than [place]? No 12/11/2024 Do you want help with [...] Description 01/28/2025 9:45 AM EDT Office Visit [facility] Electrophysiology [facility] [place] [address] Phuong Lewis MD [address] [place] [address] [address] [place] [address] Health Maintenance Due Date Last Done Comments [...] Additional history exists Influenza Vaccine (#1) 2024 2, 02/05/2021, 04/10/2018, Additional history exists Tobacco Cessation [...] 9.1 K/ L 12/14/2024 6:17 AM EDT [facility] RBC 2.63(L) 4.63 - 6.08 M/ L 12/14/2024 6:17 AM EDT [facility] Hemoglobin 8.2(L) 13.7 - 17.5 GM/DL 12/14/2024 6:17 AM EDT [facility] Hematocrit 25.9(L) 40.1 - 51.0 % 12/14/2024 6:17 AM EDT [facility] MCV 99(H) 79 - 92 fL 12/14/2024 6:17 AM EDT [facility] MCH 31.2 25.7 - 32.2 pg 12/14/2024 6:17 AM EDT [facility] MCHC 31.7(L) 32.3 - 36.5 GM/DL 12/14/2024 6:17 AM EDT [facility] RDW 15.0(H) 11.6 - 14.4 % 12/14/2024 6:17 AM EDT [facility] Platelets 177 140 - 375 K/CU MM 12/14/2024 6:17 AM EDT [facility] MPV 9.9 9.4 - 12.4 fL 12/14/2024 6:17 AM EDT [facility] NRBC Absolute <0.01 0 - 0.012 K/ul 12/14/2024 6:17 AM EDT [facility] Blood Venipuncture / Unknown 12/14/2024 5:35 AM EDT 12/14/2024 6:05 AM EDT Narrative [facility] - 12/14/2024 6:17 AM EDT [...] MD LAB BLOOD ORDERABLES Final Res ult [facility] [address] [phone] * (ABNORMAL) Manual Differential (12/14/2024 5:35 AM EDT) Only the most recent of2 resultswithin the time period is included. Total Counted 100 12/14/2024 8:02 AM EDT [facility] % Neutros (manual) 13(L) 50 - 65 % 12/14/2024 8:02 AM EDT [facility] % Lymphs (manual) 86(H) 24 - 44 % 025 8:02 AM EDT [facility] % Monos (manual) 1(L) 4 - 5 % 12/15/19 25 8:02 AM EDT [facility] RBC Morphology abnormal(A) Normal 8:02 AM EDT [facility] Platelet Estimate Adequate Adequate 025 8:02 AM EDT [facility] Anisocytosis 1+ 12/14/2024 8:02 AM EDT [facility] Hypochromia 1+ 12/14/2024 8:02 AM EDT [facility] Polychromasia 1+ 12/14/2024 8:02 AM EDT [facility] Smudge Cells Present 12/14/2024 8:02 AM EDT [facility] Macrocytes 1+ 12/14/2024 8:02 AM EDT [facility] ANC# 2.89 K/ L 12/14/2024 8:02 AM EDT [facility] Blood Venipuncture / Unknown 12/14/2024 5:35 AM EDT 12/14/2024 6:05 AM EDT Matt Vargas MD LAB BLOOD ORDERABLES Final Res ult [facility] 1 [place] [address], [facility] [phone] * (ABNORMAL) Basic Metabolic Panel (12/14/2024 5:35 AM EDT) Only the most recent of3 resultswithin the time period is included. Sodium 142 136 - 145 meq/L 12/14/2024 6:48 AM EDT [facility] Potassium 3.9 3.4 - 5.1 meq/L 12/14/2024 6:48 AM EDT [facility] CO2 25 22 - 29 meq/L 12/14/2024 6:48 AM EDT [facility] Chloride 108 98 - 112 meq/L 12/14/2024 6:48 AM EDT [facility] Glucose 120(H) 82 - 115 mg/dL 12/14/2024 6:48 AM EDT [facility] BUN 14.4 8.4 - 25.7 mg/dL 12/14/2024 6:48 AM EDT [facility] Creatinine 0.68(L) 0.72 - 1.25 mg/dL 12/14/2024 6:48 AM EDT [facility] BUN/Creatinine 21(H) 8 - 20 12/14/2024 6:48 AM EDT [facility] Calcium 7.7(L) 8.4 - 10.2 mg/dL 12/14/2024 6:48 AM EDT [facility] Anion Gap 13(H) 4 - 12 12/14/2024 6:48 AM EDT [facility] eGFR (mL/min/1.73m2) 96 >=60 mL/min/1.7 3m2 12/14/2024 6:48 AM EDT [facility] Osmolality Calc 284.9 mOsm/kg 6:48 AM EDT [facility] Blood Venipuncture / Unknown 12/14/2024 5:35 AM EDT 12/14/2024 6:18 AM EDT us Maria Guadalupe Lopez MD LAB BLOOD ORDERABLES Final Re sult Performing Organization Address City/[facility]/ZIP Co de Phone Number [facility] [address] [phone] * Sedimentation rate (12/13/2024 6:09 PM EDT) Sed Rate 10 0 - 20 mm/HR 12/13/2024 6:24 PM EDT [facility] Blood Venipuncture / Unknown 12/13/2024 6:09 PM EDT 12/13/2024 6:20 PM EDT us Jaron Amin MD LAB BLOOD ORDERABLES Final Resul t Performing Organization Address [facility] Co de Phone Number [facility] [address] [phone] * ECHO COMPLETE (DOPPLER / COLOR) WO CONTRAST (12/13/2024 1:08 PM EDT) Anatomical Region Laterality Modality Heart Vascular Ultraso und 12/13/2024 12:1 1 PM EDT Narrative 12/13/2024 11:34 PM EDT TRANSTHORACIC ECHOCARDIOGRAPHY REPORT Demographics Patient Name: SANDIE KOROMA : 1950 Age: 74 year(s) Corporate ID Number: [id number] Gender Male Core Shaper Top: Jillian Souza Height: 65 inches [facility] Referring Physician: MARIA GUADALUPE LOPEZ MD Weight: 139 pounds Interpreting BEBETO WALTER MD BMI: 23.13 kg/m^2 Physician: Date of Service: 12/13/2024 Blood Pressure: 118/57 mmHg Room Number: 405 Type of Study: TTE procedure: ECHO COMPLETE (DOPPLER / COLOR) W OR WO CONTRAST. Patient Status: Routine IP [facility] History/Tech [...] .52 LV length: 8.99 cm ml Volume fdvzbtat39.92 ml LVOT diameter: 2.03 cm Normal sized [...] Valve TR velocity: 3 m/s TR gradient: 35.82701 mmHg Estimated RAP: 8 mmHg RVSP: 43.96 [...] 1950 Age: 74 year(s) Corporate ID Number: [id number] Gender Male Core Shaper Top: Jillian Souza Height: 65 inches [facility] Referring Physician: MARIA GUADALUPE LOPEZ MD Weight: 139 pounds Interpreting BEBETO WALTER MD BMI: 23.13 kg/m^2 Physician: Date of Service: 12/13/2024 Blood Pressure: 118/57 mmHg Room Number: 405 Type of Study: TTE procedure: ECHO COMPLETE (DOPPLER / COLOR) W OR WO CONTRAST. Patient Status: Routine IP Study Location: [facility] Quality: Adequate visualization History/Tech Notes: Indication: other [...] .52 LV length: 8.99 cm ml Volume yoyfrvob51.92 ml LVOT diameter: 2.03 cm Normal sized [...] Valve TR velocity: 3 m/s TR gradient: 35.17006 mmHg Estimated RAP: 8 mmHg RVSP: 43.96 [...] Demographics Patient Name SANDIE SMITH Age 74 [place] Patient Number [id number] Gender Male Race Ethnicity Corporate ID [id number] Height 65 Date of 1950 Weight 139 Accession Number [id number] BSA 1.69 m^2 Room Number 405 BMI 23.13 kg/m^2 Referring Alyson Ferguson MD Interpreting BEBETO WALTER MD Physician Physician Core Shaper Top Rosy Guido, [facility] Procedure Type of Study: Veins: [...] Demographics Patient Name SANDIE SMITH Age 74 [place] Patient Number [id number] Gender Male Race Ethnicity Corporate ID [id number] Height 65 Date of 1950 Weight 139 Accession Number [id number] BSA 1.69 m^2 Room Number 405 BMI 23.13kg/m^2 Referring Alyson Ferguson MD Interpreting BEBETO PERALTA Physician Physician Core Shaper Top Rosy Guido RVT Procedure Type of Study: [...] SANDIE SMITH Age 74 [place] Patient Number [id number] Gender Male Race Ethnicity Corporate ID [id number] Height 65 Date of 1950 Weight 139 Accession Number [id number] BSA 1.69 m^2 Room Number 405 BMI 23.13 kg/m^2 Referring MARIA GUADALUPE LOPEZ MD Interpreting BEBETO WALTER MD Physician Physician Core Shaper Top Rosy Guido, RVT Procedure Type of Study: [...] SANDIE SMITH Age 74 [place] Patient Number [id number] Gender Male Race Ethnicity Corporate ID [id number] Height 65 Date of 1950 Weight 139 Accession Number [id number] BSA 1.69 m^2 Room Number 405 BMI 23.13kg/m^2 Referring MARIA GUADALUPE LOPEZ MD Interpreting BEBETO PERALTA Physician Physician Core Shaper Top Rosy Guido RVT Procedure Type of Study: [...] - 5.0 mg/L 12/13/2024 6:10 PM EDT [facility] Blood Venipuncture / Unknown 12/13/2024 5:12 AM EDT 12/13/2024 5:24 AM EDT Jaron Amin MD LAB BLOOD ORDERABLES Final Resul t [facility] [address] [phone] * Vitamin D, 25-Hydroxy (12/13/2024 5:12 AM EDT) [facility] Vitamin D 25-Hydroxy 31.33 30 - 80 ng/mL 12/13/2024 6:13 AM EDT [facility] Blood Venipuncture / Unknown 12/13/2024 5:12 AM EDT 12/13/2024 5:24 AM EDT Maria Guadalupe Lopez MD LAB BLOOD ORDERABLES Final Re sult Performing Organization Address City/[facility]/ZIP Co de Phone Number [facility] [address] [phone] * TSH (12/13/2024 5:12 AM EDT) [facility] TSH 2.613 0.350 - 4.940 uIU/mL 12/13/2024 6:07 AM EDT [facility] Blood Venipuncture / Unknown 12/13/2024 5:12 AM EDT 12/13/2024 5:24 AM EDT Maria Guadalupe Lopez MD LAB BLOOD ORDERABLES Final Re sult Performing Organization Address City/[facility]/ZIP Co de Phone Number [facility] [address] [phone] * Magnesium (12/13/2024 5:12 AM EDT) [facility] Magnesium 2.2 1.6 - 2.6 mg/dL 12/13/2024 3:16 PM EDT [facility] Blood Venipuncture / Unknown 12/13/2024 5:12 AM EDT 12/13/2024 5:24 AM EDT us Phuong Lewis MD LAB BLOOD ORDERABLES Final Resu lt [facility] [address] [phone] * (ABNORMAL) Lipid panel (12/13/2024 5:12 AM EDT) Triglycerides 108 <=149 mg/dL 12/13/2024 8:20 AM EDT [facility] Comment: Normal: < 150 mg/dL Borderline High: 150 to 199 mg/dL High: 200 to 499 mg/dL Very High: >/= 500 mg/dL Cholesterol 81(L) 100 - 199 mg/dL 12/13/2024 8:20 AM EDT [facility] Comment: Child: Desirable: < 170 mg/dL Borderline: 170 to 199 mg/dL High: >/= 200 mg/dL Adult: Desirable: < 200 mg/dL Borderline: 200 to 239 mg/dL High: >/= 240 mg/dL HDL Cholesterol 12 See Comment mg/dL 12/13/2024 8:20 AM EDT [facility] Comment: Major risk factor for heart disease: < 40 mg/dL Negative risk factor for heart disease: >/= 60 mg/dL LDL Cholesterol, Calculated 47 0 - 100 mg/dL 12/13/2024 8:20 AM EDT [facility] Comment: Unable to calculate Optimal: < 100 mg/dL Near or above optimal: 100 to 129 mg/dL Borderline high: 130 to 159 mg/dL High: 160 to 189 mg/dL Very high: >/= 190 mg/dL Based on AHA/NCEP Guidelines LDl/HDL Ratio 4 0 - 4 12/13/2024 8:20 AM EDT [facility] Comment:Unable to calculate. Cholesterol/HDL ratio 6.8(H) 0.0 - 5.0 mg/dL 12/13/2024 8:20 AM EDT [facility] VLDL Cholesterol 21.6 5 - 40 mg/dL 12/13/2024 8:20 AM EDT [facility] Comment:Unable to calculate Blood Venipuncture / Unknown 12/13/2024 5:12 AM EDT 12/13/2024 5:24 AM EDT us Maria Guadalupe Lopez MD LAB BLOOD ORDERABLES Final Re sult [facility] [address] [phone] * MR Brain Without IV Contrast (12/12/2024 [...] interpreted, and dictated by Haider oBnd MD Narrative 12/12/2024 6:56 PM EDT MRI [...] pneumonia- see comment 12/12/2024 12:09 PM EDT [facility] Urine URINE / Unknown 12/12/2024 1 1:48 AM EDT 12/12/2024 11:48 AM EDT Narrative [facility] - 12/12/2024 12:09 PM EDT A presumptive negative result suggests no current or recent pneumococcal infection. Infection due to S. pneumoniae cannot be ruled out since the antigen present in the specimen may be below the detection limit of the test. us Maria Guadalupe Lopez MD MICROBIOLOGY - GENERAL ORDERA BLES Final Result [facility] [address] [phone] * Legionella antigen, urine (12/12/2024 11:48 AM EDT) Legionella Urine Antigen Presumptive negative for L. pneumophila serogroup 1 antigen in urine- see comment Presumptive negative for L. pneumophila serogroup 1 antigen in urine- see comment 12/12/2024 12:08 PM EDT [facility] Urine 12/12/2024 11:4 8 AM EDT 12/12/2024 11:[address] [facility] - 12/12/2024 12:08 PM [...] Guadalupe Lopez MD URINE ORDERABLES Final Result [facility] [address] [phone] * Respiratory Panel (12/12/2024 10:27 AM EDT) Pathologist [facility] ADENOVIRUS Not detected Not detected 12/12/2024 11:25 AM EDT [facility] CORONAVIRUS 229E Not detected Not detected 12/12/2024 11:25 AM EDT [facility] CORONAVIRUS HKU1 Not detected Not detected 12/12/2024 11:25 AM EDT [facility] CORONAVIRUS NL63 Not detected Not detected 12/12/2024 11:25 AM EDT [facility] CORONAVIRUS OC43 Not detected Not detected 12/12/2024 11:25 AM EDT [facility] SARS-COV2/RT-PCR Not Detected Not Detected 12/12/2024 11:25 AM EDT [facility] HUMAN METAPNEUMOVIRUS Not detected Not detected 12/12/2024 11:25 AM EDT [facility] HUMAN RHINOVIRUS/ENTEROV IRUS Not detected Not detected 12/12/2024 11:25 AM EDT [facility] INFLUENZA A Not detected Not detected 12/12/2024 11:25 AM EDT [facility] INFLUENZA B Not detected Not detected 12/12/2024 11:25 AM EDT [facility] PARAINFLUENZA VIRUS 1 Not detected Not detected 12/12/2024 11:25 AM EDT [facility] PARAINFLUENZA VIRUS 2 Not detected Not detected 12/12/2024 11:25 AM EDT [facility] PARAINFLUENZA VIRUS 3 Not detected Not detected 12/12/2024 11:25 AM EDT [facility] PARAINFLUENZA VIRUS 4 Not detected Not detected 12/12/2024 11:25 AM EDT [facility] RESPIRATORY SYNCYTIAL VIRUS Not detected Not detected 12/12/2024 11:25 AM EDT [facility] BORDETELLA PARAPERTUSSIS Not detected Not detected 12/12/2024 11:25 AM EDT [facility] BORDETELLA PERTUSSIS Not detected Not detected 12/12/2024 11:25 AM EDT [facility] CHLAMYDIA PNEUMONIAE Not detected Not detected 12/12/2024 11:25 AM EDT [facility] MYCOPLASMA PNEUMONIAE Not detected Not detected 12/12/2024 11:25 AM EDT [facility] Nasopharyngeal NASOPHARYNGEAL SWAB / Unknown 12/12/2024 10:27 AM EDT 12/12/2024 10:[address] [facility] - 12/12/2024 11:25 AM EDT Testing was performed with RT-PCR methodology using the [employer] Respiratory Panel 2.1 which has FDA De [...] This sample was tested at the [facility] using the [employer] FilmArray Respiratory Panel. It is FDA cleared and has been verified and approved by the [facility] for clinical use on nasopharyngeal swab specimens. The performance of the FilmArray RP has not been established in individuals who received influenza vaccine. Recent administration of a nasal influenza vaccine may cause false positive results for Influenza A and/or Influenza B. us Maria Guadalupe Lopez MD MICROBIOLOGY - GENERAL ORDERA BLES Final Result Performing Organization Address City/[facility]/ZIP Co de Phone Number [facility] [address] [phone] * MRSA Screen (12/12/2024 10:27 AM EDT) [facility] MRSA by PCR [facility] MRSA Not Detected by PCR MRSA Not Detected by PCR DEVICE ID9 12/12/2024 11:45 AM EDT [facility] Nasal BOTH ANTERIOR NARES / Unknown 12/12/2024 10:27 AM EDT 12/12/2024 10:28 AM EDT Maria Guadalupe Lopez MD MICROBIOLOGY - GENERAL ORDERA BLES Final Result Performing Organization Address [facility] Co de Phone Number [facility] [address] [phone] * XR chest AP portable (12/12/2024 9:10 [...] 9.1 K/ L 12/12/2024 4:46 AM EDT [facility] RBC 2.60(L) 4.63 - 6.08 M/ L 12/12/2024 4:46 AM EDT [facility] Hemoglobin 8.2(L) 13.7 - 17.5 GM/DL 12/12/2024 4:46 AM EDT [facility] Hematocrit 25.8(L) 40.1 - 51.0 % 12/12/2024 4:46 AM EDT [facility] MCV 99(H) 79 - 92 fL 12/12/2024 4:46 AM EDT [facility] MCH 31.5 25.7 - 32.2 pg 12/12/2024 4:46 AM EDT [facility] MCHC 31.8(L) 32.3 - 36.5 GM/DL 12/12/2024 4:46 AM EDT [facility] RDW 14.8(H) 11.6 - 14.4 % 12/12/2024 4:46 AM EDT [facility] Platelets 168 140 - 375 K/CU MM 12/12/2024 4:46 AM EDT [facility] MPV 9.7 9.4 - 12.4 fL 12/12/2024 4:46 AM EDT [facility] Blood Venipuncture / Unknown 12/12/2024 3:51 AM EDT 12/12/2024 4:35 AM EDT Aneudy Fitch PA-C LAB BLOOD ORDERABLES Final Res ult [facility] [address] [phone] * (ABNORMAL) Iron and TIBC (12/12/2024 3:51 AM EDT) Iron 11(L) 65 - 175 ug/dL 12/12/2024 10:35 AM EDT [facility] TIBC 183(L) 250 - 435 ug/dL 12/12/2024 10:35 AM EDT [facility] % Saturation 6 % 12/12/2024 10:35 AM EDT [facility] UIBC 172 12/12/2024 10:35 AM EDT [facility] Blood Venipuncture / Unknown 12/12/2024 3:51 AM EDT 12/12/2024 4:38 AM EDT Maria Guadalupe Lopez MD LAB BLOOD ORDERABLES Final Re sult Performing Organization Address City/[facility]/ZIP Co de Phone Number [facility] [address] [phone] * (ABNORMAL) Ferritin (12/12/2024 3:51 AM EDT) [facility] Ferritin 474.71(H) 21.81 - 274.66 ng/mL 12/12/2024 10:35 AM EDT [facility] Blood Venipuncture / Unknown 12/12/2024 3:51 AM EDT 12/12/2024 4:38 AM EDT us Maria Guadalupe Lopez MD LAB BLOOD ORDERABLES Final Re sult [facility] [address] [phone] * Vitamin B12 (12/12/2024 3:51 AM EDT) Vitamin B12 439 213 - 816 pg/mL 12/12/2024 10:35 AM EDT [facility] Blood Venipuncture / Unknown 12/12/2024 3:51 AM EDT 12/12/2024 4:38 AM EDT us Maria Guadalupe Lopez MD LAB BLOOD ORDERABLES Final Re sult [facility] [address] [place] [address], [facility] [phone] from Last 3 Months Insurance [employer] MEDICARE PPO [employer] PPO Advance Directives For more information, please contact: [phone] * DNR - Limited Additional Intervention (Latest Code Status on File) Date Activated Date Inactivated Comments 12/11/2024 4:28 PM 12/14/2024 3:42 PM Care Teams Technical Maintenance Technician Relationship Specialty Start Date End Date Eladio Lomas MD [address] [facility] [address] [place] [address] Medical Oncologist Hematology and Oncology 07/08/22 Breanna CrowCHAVA [address] [place] [address] Physician Senior [employer] Oncology 07/08/22
--- OUTSIDE RECORDS SUMMARY | 2025-01-23 09:24 | XMS_ITS | Encounter Summary ---
Author Organization Healthcare Address [address] [place] [address] Care Team Providers Care Community Health Nurse Name Role Phone Per Patient, None Primary Care Provider Unavaila ble Encounter Details Date Type Department Care Team (Late st Contact Info) Description 01/07/2021 Orders Only [facility] [address] [place] [address] Maurisio gAuilar MD [address] [address] Social History Tobacco Use Types [...] Glucose 99 74 - 100 mg/dL [facility] BUN 16 6 - 20 mg/dL [facility] Creatinine Blood 0.93 0.70 - 1.28 mg/dL [facility] BUN/Creat Ratio 17 10 - 20 (calc) [facility] Sodium 141 136 - 145 mmol/L [facility] Potassium 4.2 3.4 - 5.0 mmol/L [facility] Chloride 102 98 - 107 mmol/L [facility] Carbon Dioxide 25 22 - 31 mmol/L [facility] Anion Gap (AG) 14 7 - 25 (calc) [facility] Calcium 9.4 8.6 - 10.2 mg/dL [facility] Total Protein 7.0 6.4 - 8.3 g/dL [facility] Albumin 4.8 3.5 - 5.2 g/dL [facility] Globulin 2.2 1.5 - 4.5 g/dL (calc) [facility] Albumin/Globulin Ratio 2.2 1.1 - 2.5 (calc) [facility] Bilirubin Total 0.4 0.1 - 1.2 mg/dL [facility] External Alkaline Phosphatase 85 40 - 129 U/L [facility] AST (SGOT) 22 0 - 40 U/L [facility] External ALT (SGPT) 19 0 - 41 U/L [facility] External EGFR (If AFR/AM) 94 >=60 [facility] Estimated GFR 81 >=60 [facility] Comment: NOTE Chronic kidney disease is [...] LAB BLOOD ORDERABLES Final Res ult [facility] [address] [place] [address], [place] [phone] documented in this encounter Visit Diagnoses Not on filedocumented in this encounter Care Teams Community Health Nurse Relationship Specialty Start Date End Date Per Patient, [place] [address] PCP - General 05/02/20 documented as of this encounter
--- OUTSIDE RECORDS SUMMARY | 2025-01-23 09:24 | XMS_ITS | Encounter Summary ---
Author Organization Healthcare Address [address] [place] [address] Care Team Providers Care Hammer Adjuster Name Role Phone Per Patient, None Primary Care Provider Unavaila ble Encounter Details Date Type Department Care Team (Late st Contact Info) Description 01/07/2021 Orders Only [facility] [address] [place] [address] Maurisio Aguilar MD [address] [address] Social History Tobacco Use Types [...] Band Neutrophil% 0.0 0.0 - 7.0 % [facility] External Atypical Lymph% 4(H) 0 - 1 % [facility] External Metamyelocyte % 0 0 - 1 % [facility] External Myelocyte % 0 0 - 1 % [facility] External Promyelocyte% 0 % [facility] External Blast% 0 % [facility] External Nucleated RBC%-Manual 0 /100 WBC [facility] External Smudge Cells 0 [facility] External Platelet Morphology NORMAL [facility] External Ovalocytes SLIGHT(A) [facility] External Tear Drop Cells SLIGHT(A) [facility] 01/07/2021 10:0 5 AM EDT 01/07/2021 10:20 AM EDT us Maurisio Aguilar MD LAB BLOOD ORDERABLES Final Res ult Performing Organization Address City/State/[facility] Co de Phone Number [facility] [address] [place] [address], documented in this encounter Visit Diagnoses Not on filedocumented in this encounter Care Teams Hammer Adjuster Relationship Specialty Start Date End Date Per Patient, [place] [address] PCP - General 05/02/20 documented as of this encounter
--- OUTSIDE RECORDS SUMMARY | 2025-01-23 09:24 | XMS_ITS | Clinical Summary ---
[facility] Address [address] [place] [address] Care Team Providers Care Medical Terminologist Name Role Phone Provider, No Known Primary [...] (1 - 1- dose 75+ series) 01/05/2023 INFLUENZA VACCINE 11/30/2024 02/05/2021, , 01/17/2020, Additional history exists COVID-19 Vaccine (3 2024-2 6 season) 2024 07/25/2020, 06/11/2020 Insurance [facility] MEDICARE ADVANTAGE Care Teams Medical Terminologist Relationship Specialty Start Date End Date Provider, No Known [facility] [place] [place] [address] PCP - General 10/07/21
--- OUTSIDE RECORDS SUMMARY | 2025-01-23 09:24 | XMS_ITS | Encounter Summary ---
Author Organization [email or web address] ([place], [place], [place], [place]) Address [address] [place] [address] Care Team Providers Care Prepper Name Role Phone Eladio Lomas MD Unavailable Breanna Crow PA-C Unavailable [phone] Reason for Referral * Consultation (Routine) - Closed Specialty Diagnoses / Procedures Referred By Contac t Referred To Contact Cardiology Diagnoses Palpitations Procedures HOLTER [place] الع[place] [address] [place] [address] [address] [place] [address] Phone: tel: fax: [facility] Electrophysiology [address] [place] [phone] Phone: tel: fax: Referral ID Status Reason Start Date Expiration Date Visits Re quested Visits Authorized [id number] Closed 12/14/2024 12/14/2025 1 1 Encounter Details Date Type Department Care Team (Late st Contact Info) Description 12/14/2024 Orders Only [facility] Electrophysiology [address] [place] [phone] Covert, Dorothy Urena CMA Palpitations (Primary [...] you? Never 12/11/2024 How often does anyone, inclu ding family and friends, insult or talk down [...] Do you speak a language other than [place] at [facility]? No 12/11/2024 Do you want help [...] Description 01/28/2025 9:45 AM EDT Office Visit [facility] Electrophysiology [address] [place] [phone] Phuong Lewis MD [address] [place] [address] [address] [place] [address] documented as of this encounter Results * HOLTER MONITOR HOOKUP (01/14/2025 3:26 PM EDT) Anatomical Region Laterality Modality Other Phuong Lewis MD [facility] ORDERABLES Final Result documented in this encounter Visit Diagnoses Diagnosis Palpitations- Primary documented in this encounter Care Teams Prepper Relationship Specialty Start Date End Date Eladio Lomas MD [address] [facility] [address] [place] [address] Medical Oncologist Hematology and Oncology 07/08/22 Breanna Crow, PARebelC [address] [facility] [address] [place], [place] [id number] Physician [address] Worker Oncology 07/08/22 documented as of this encounter
--- OUTSIDE RECORDS SUMMARY | 2025-01-23 09:24 | XMS_ITS | Encounter Summary ---
Author Organization Healthcare Address [address] [place] [address] Care Team Providers Care Relief Mate Name Role Phone Per Patient, None Primary Care Provider Unavaila ble Encounter Details Date Type Department Care Team (Late st Contact Info) Description 01/07/2021 Orders Only [facility] [address] [place] [address] Maurisio Aguilar MD [address] [address] Social History Tobacco Use Types [...] External WBC 6.9 3.8 - 10.8 K/uL [facility] External Red Blood Cell (RBC) 5.24 4.20 - 5.80 M/uL [facility] External Hemoglobin 15.5 14.0 - 18.0 G/DL [facility] External Hematocrit 44.1 40.0 - 52.0 % [facility] External MCV 84 80 - 100 fL [facility] External MCH 30 26 - 35 PG [facility] External MCHC 35 32 - 36 G/DL [facility] External RDW 13.5 11.0 - 15.0 % [facility] External Mean Platelet Volume 7.6 6.2 - 10.5 fL [facility] External Platelets 162 130 - 400 K/uL [facility] External Neutrophil# 3.0 1.6 - 8.4 K/uL [facility] External Lymphocyte# 3.2 0.4 - 5.1 K/uL [facility] External Absolute Monocyte (Abs [place]) 0.4 0.0 - 1.2 K/uL [facility] External Eosinophils# 0.1 0.0 - 0.8 K/uL [facility] External Baso# 0.0 0.0 - 0.3 K/uL [facility] External Neutrophils % 43.0 42.0 - 78.0 % [facility] External Lymphocyte % 46.0 11.0 - 47.0 % [facility] External Monocyte % 6.0 0.0 - 11.0 % [facility] External Eosinophil% 1.0 0.0 - 7.0 % [facility] External Basophil % 0.0 0.0 - 3.0 % [facility] External Nucleated RBC%-Auto 0.2 0.0 - 0.9 % [facility] External Nucleated RBC Absolute 0.01 Not Estab. K/uL [facility] 01/07/2021 10:0 5 AM EDT 01/07/2021 10:20 AM EDT us Maurisio Aguilar MD LAB BLOOD ORDERABLES Final Res ult Performing Organization Address City/State/[facility] Co de Phone Number [facility] [address] [id number], documented in this encounter Visit Diagnoses Not on filedocumented in this encounter Care Teams Relief Mate Relationship Specialty Start Date End Date Per Patient, [place] [address] PCP - General 05/02/20 documented as of this encounter
[2025-01-23 09:28] LABS: Hematocrit 34.6 % (42.0-52.0); Hemoglobin 10.7 g/dL (14.1-18.0); Immature Granulocytes % 0.2 %; Mean Corpuscular HGB Conc 30.9 g/dL (31.8-35.4); Mean Corpuscular Hemoglobin 30.9 pg (27.0-31.2); Mean Corpuscular Volume 100.0 fl (80-94); Nucleated Red Blood Cells % 0 %; Platelet Count 161 K/mm3 (142-424); Red Blood Count 3.46 M/mm3 (4.60-6.20); Red Cell Distribution Width-SD 59.8 fL; White Blood Count 21.6 K/mm3 (4.8-10.8)
[2025-01-23 09:39] LABS: Alanine Aminotransferase 21 U/L (12-78); Albumin Level 4.1 g/dl (3.5-5.0); Albumin/Globulin Ratio 2.0 (1.1-1.8); Alkaline Phosphatase 74 U/L (38-126); Anion Gap 10.4 mEq/L (5-15); Aspartate Amino Transferase 27 U/L (17-59); Bilirubin,Total 0.5 mg/dl (0.2-1.3); Blood Urea Nitrogen 17 mg/dl (9-20); Calcium 9.0 mg/dl (8.4-10.2); Carbon Dioxide 27 mmol/L (22.0-30.0); Chloride 103 mmol/L (98-107); Creatinine,Serum 1.00 mg/dl (0.66-1.25); Estimated Glomerular Filt Rate 72 ml/min (>60); GFR (African American) 88 ML/MIN (>60); Globulin 2.1 g/dL (1.3-3.2); Glucose 123 mg/dl (74-100); Potassium 4.4 mmoL/L (3.5-5.1); Total Protein,Serum 6.2 g/dl (6.3-8.2)
[2025-01-23 09:54] LABS: Total Cells Counted 100
[2025-01-23 09:55] LABS: Macrocytosis 1+
[2025-01-23 13:57] LABS: Sodium 138 mmol/L (136-145)
[2025-01-23 14:00] LABS: Iron 45 ug/dL (49-181)
[2025-01-23 14:09] LABS: Total Iron Binding Capacity 244 ug/dL (261-462)
[2025-01-23 14:35] LABS: Ferritin 96.7 ng/ml (17.9-464)
== END 2025-01-23 23:59 | disposition home or self-care (01) ==
LOC: INF 09:16
PROVIDERS: PCP Family Medicine; Visit Provider Internal Medicine Medical Oncology
DX: C91.12 Chronic lymphocytic leukemia of B-cell type in relapse (principal)
CPT/HCPCS: 36415; 80053; 82728; 83540; 83550; 83615; 85007; 85025; 85027

== ENCOUNTER 2025-04-10 13:31 | Outpatient (CLI) | payer MEDICARE, SELFPAY ==
[2025-04-10 13:55] LABS: Hematocrit 38.9 % (42.0-52.0); Hemoglobin 12.1 g/dL (14.1-18.0); Immature Granulocytes % 0.3 %; Mean Corpuscular HGB Conc 31.1 g/dL (31.8-35.4); Mean Corpuscular Hemoglobin 30.3 pg (27.0-31.2); Mean Corpuscular Volume 97.5 fl (80-94); Nucleated Red Blood Cells % 0 %; Platelet Count 163 K/mm3 (142-424); Red Blood Count 3.99 M/mm3 (4.60-6.20); Red Cell Distribution Width-SD 54.3 fL
[2025-04-10 14:01] LABS: White Blood Count 48.4 K/mm3 (4.8-10.8)
--- NOTE | 2025-04-10 14:29 | PC.NURSE ---
1340-Blood drawn from left AC using butterfly needle to check labs, per Dr Lomas.
[2025-04-10 14:50] LABS: Alanine Aminotransferase 18 U/L (12-78); Albumin Level 4.5 g/dl (3.5-5.0); Albumin/Globulin Ratio 2.1 (1.1-1.8); Alkaline Phosphatase 104 U/L (38-126); Anion Gap 14.5 mEq/L (5-15); Aspartate Amino Transferase 38 U/L (17-59); Bilirubin,Total 0.5 mg/dl (0.2-1.3); Blood Urea Nitrogen 19 mg/dl (9-20); Calcium 9.4 mg/dl (8.4-10.2); Carbon Dioxide 29 mmol/L (22.0-30.0); Chloride 101 mmol/L (98-107); Creatinine,Serum 1.10 mg/dl (0.66-1.25); Estimated Glomerular Filt Rate 65 ml/min (>60); GFR (African American) 79 ML/MIN (>60); Globulin 2.1 g/dL (1.3-3.2); Glucose 92 mg/dl (74-100); Potassium 4.5 mmoL/L (3.5-5.1); Sodium 140 mmol/L (136-145); Total Protein,Serum 6.6 g/dl (6.3-8.2); Uric Acid 6.0 mg/dl (3.5-8.5)
[2025-04-10 15:14] LABS: Total Cells Counted 100
[2025-04-10 15:19] LABS: Anisocytosis 1+; Macrocytosis 1+
== END 2025-04-10 23:59 | disposition home or self-care (01) ==
LOC: INF 13:32
PROVIDERS: PCP Family Medicine; Visit Provider Internal Medicine Medical Oncology
DX: C91.12 Chronic lymphocytic leukemia of B-cell type in relapse (principal); R22.1 Localized swelling, mass and lump, neck
CPT/HCPCS: 36415; 80053; 83615; 84550; 85007; 85025; 85027

== ENCOUNTER 2025-04-11 09:51 | Outpatient (CLI) | payer MEDICARE, SELFPAY ==
--- NOTE | 2025-04-11 10:30 | CT_ITS ---
FINAL REPORT TECHNIQUE: Thin section axial CT images with coronal and sagittal reformats were performed through the neck. This study was performed with techniques to keep radiation doses as low as reasonably achievable (ALARA). Individualized dose reduction techniques using automated exposure control or adjustment of mA and/or kV according to the patient''s size were employed. CLINICAL HISTORY: symptom evaluation, leukemia, swelling on left side of neck FINDINGS: There is abnormal mucoperiosteal thickening of the ethmoid air cells. No air-fluid levels are identified. There is a multitude of enlarged bilateral cervical lymph nodes. Individual lymph nodes measure up to 5.0 cm in greatest dimension. Multiple small lymph nodes are also seen in the supraclavicular and hilar regions bilaterally. IMPRESSION: Extensive bilateral cervical, supraclavicular and axillar adenopathy. Mild changes of chronic sinusitis. Reviewed, Interpreted and Dictated by Mario Bertrand MD Transcribed by Samia Zuniga Authenticated and [facility]
--- NOTE | 2025-04-11 10:30 | CT_ITS ---
FINAL REPORT TECHNIQUE: Axial images through the abdomen and pelvis were performed without contrast. This study was performed with techniques to keep radiation doses as low as reasonably achievable, (ALARA). Individualized dose reduction techniques using automated exposure control or adjustment of mA and/or kV according to the patient's size were employed. CLINICAL HISTORY: Symptom evaluation, leukemia, swelling on left side of neck COMPARISON: 12/11/2024 FINDINGS: Abdomen: There is linear density at the right lung base, probably due to scar or atelectasis. The liver parenchyma is homogeneous. The liver measures approximately 21 cm in craniocaudal dimension. The gallbladder is present. The spleen is markedly enlarged measuring 17.3 cm in craniocaudal dimension. Splenomegaly has increased over previous. The pancreas, adrenals and kidneys are unremarkable. There is a multitude of enlarged mesenteric lymph nodes. Individual nodes measure up to 4.7 cm in greatest dimension. Pelvis: There is a moderate mount of stool noted throughout the colon. The urinary bladder is decompressed. The appendix is not visualized. There is no pelvic mass or inflammation. IMPRESSION: Worsening mesenteric adenopathy and worsening splenomegaly consistent with progressive neoplastic involvement. Reviewed, Interpreted and Dictated by Mario Bertrand MD Transcribed by Samia Zuniga Authenticated and [facility]
--- NOTE | 2025-04-11 10:30 | CT_ITS ---
FINAL REPORT TECHNIQUE: Axial images were obtained through the chest without contrast. Reconstructed images were obtained and reviewed. This study was performed with techniques to keep radiation doses as low as reasonably achievable, (ALARA). Individualized dose reduction techniques using automated exposure control or adjustment of mA and/or kV according to the patient's size were employed. CLINICAL HISTORY: Symptom evaluation, leukemia, swelling on left side of neck COMPARISON: 12/11/2024 FINDINGS: The ascending aorta measures 4.0 cm in diameter, slightly larger than previous. There is mild coronary artery calcification. The heart size is normal. There is no pericardial or pleural effusion. The is a multitude of small supraclavicular and bilateral axillary lymph nodes. Individual nodes measure up to 1.9 cm in greatest dimension. There is patchy airspace opacity in the superior segment of the right lower lobe on images 41-49 of series 4. There is scarring at the lung bases. IMPRESSION: Airspace infiltrate right lower lobe, probably due to acute pneumonia. Ascending aortic aneurysm measures 4 cm. Multitude of the mildly enlarged supraclavicular and axillary lymph nodes consistent with known malignancy Reviewed, Interpreted and Dictated by Mario Bertrand MD Transcribed by Samia Zuniga Authenticated and [facility]
== END 2025-04-11 23:59 | disposition home or self-care (01) ==
LOC: RAD 09:51
PROVIDERS: PCP Family Medicine; Visit Provider Internal Medicine Medical Oncology
DX: C91.12 Chronic lymphocytic leukemia of B-cell type in relapse (principal); J32.2 Chronic ethmoidal sinusitis; R59.0 Localized enlarged lymph nodes
CPT/HCPCS: 70490; 71250; 74176

== ENCOUNTER 2025-04-30 09:30 | Outpatient (CLI) | payer MEDICARE, SELFPAY ==
[2025-04-30 09:32] VITALS: BMI 22.4
--- OUTSIDE RECORDS SUMMARY | 2025-04-30 09:33 | XMS_ITS | Encounter Summary ---
Author Organization [facility] Address [address] [place] [address] Care Team Providers Care Payroll And Benefits Assistant Name Role Phone Per Patient, None Primary Care Provider Unavaila ble Encounter Details Date Type Department Care Team ([facility] st Contact Info) Description 10/08/2021 Lab Requisition [facility] [address] [place] [address] [place] [address] Unspecified lesions of oral mucosa Social [...] billing purposes only. 10/26/2021 7:22 AM EDT [facility] at 0722 EDT Case Report Surgical Pathology Report Case: [id number] Authorizing Provider: Maurice Power MD Collected: 10/08/2021 Ordering Location: [facility] Received: 10/08/2021 1659 Pathologist: Cindy Flores MD Specimen: [id number] 10/26/2021 7:22 AM EDT [facility] Tissue 10/08/2021 10/08/2021 4:5 9 PM EDT us Maurice Power MD LAB PATHOLOGY ORDERABLES F inal Result [facility] [address] [place] [address] documented in this encounter Visit Diagnoses Diagnosis Unspecified lesions of oral mucosa documented in this encounter Care Teams Payroll And Benefits Assistant Relationship Specialty Start Date End Date Per Patient, [place] [address] PCP - General 05/02/20 documented as of this encounter
--- OUTSIDE RECORDS SUMMARY | 2025-04-30 09:33 | XMS_ITS | Clinical Summary ---
Author Organization [facility] Address [address] [place] [address] Care Team Providers Care Valet Name Role Phone Provider, No Known Primary [...] 2024-2 6 season) 2024 07/25/2020, 06/11/2020 Insurance [facility] MEDICARE ADVANTAGE Care Teams Valet Relationship Specialty Start Date End Date Provider, No Known [facility] [place] [address] PCP - General 10/07/21
--- OUTSIDE RECORDS SUMMARY | 2025-04-30 09:33 | XMS_ITS | Clinical Summary ---
Author Organization [facility] Address [address] [place] [address] Care Team Providers Care Manager Utilization Name Role Phone Per Patient, None Primary [...] or (1 - 1-dose 75+ series) 01/05/2023 [id number] Vaccine (4 - season) 2024 07/25/2020, 06/24/2020, 06/11/2020 [facility]-Influenza Vaccine (#1) 12/31/202402/18, 01/17/2020, 04/10/2018, Additional history exists HPV Vaccines (No Doses Required) Completed [facility]-HIB Vaccines Aged Out No longer e [...] patient's age to complete this topic Insurance [facility] MEDICARE Care Teams Manager Utilization Relationship Specialty Start Date End Date Per Patient, [place] [address] PCP - General 05/02/20
--- OUTSIDE RECORDS SUMMARY | 2025-04-30 09:33 | XMS_ITS | Clinical Summary ---
Author Organization [facility] , [facility] Address [address] [place] [address] Phone Care Team Providers Care Manager Body Name Role Phone JENNI ALFARO, BHAVANA Ren Primary Care Provider [phone] SIVA ALFARO, TRENA Michaels Unavailable [phone] BUSHRA ALFARO, GISSEL Chowdhury Unavailable [phone] Porfirio ALFARO, Kvng Unavailable [phone] Reason for Visit and Chief Complaint The Chief Complaint is: Left shoulder pain Problems Includes: Problems addressed during this encounter and other active Problems All Visits Onset Date Date of Diagnosis Resolved Date Provider Condition Status Joint Pain Shoulder Left 07/28/2023 07/28/2023 Ninfa Rao PA-C Active Last Documented On 5 1:42AM ; [facility] Back Pain 10/30/2021 10/30/2021 Kvng Monroy MD Active Last Documented On 5 1:41AM ; [facility] Plan of Treatment Fall Risk Assessment: This patient has been identified as a fall risk. Balance/gait along with postural blood pressure, vision and home fall hazards have been assessed. Medications have been reviewed, and recommendations made with regard to contributing factors for future falls. Plan of care: Consideration of vitamin D supplementation along with balance and strength training with consideration for formal physical therapy has been discussed with the patient. - Last Documented On 08/18/2023 9:13AM ; [facility] He is back at baseline in his symptoms slowly resolved to being asymptomatic at this point over the course of about 3-4 weeks. I think we just watch this. We will hold off on any testing at this point. No formal restrictions - Last Documented On 08/18/2023 9:13AM ; [facility] Assessments Includes: Assessments from this encounter Findings Brachial plexitis - Last Documented On 08/18/2023 9:13AM ; [facility], [facility] Medical Equipment - Implanted Devices Includes: Current Devices No Medical Equipment Recorded Medications Includes: Medications discussed during this encounter and other current Medications Current Medications (continue as prescribed) Diclofenac Sodium 75 MG Oral Tablet Delayed Release Provider: Diagnosis: Last Documented On 4 12:47PM By Zita Tim ; [facility] valACYclovir HCl 1 GM Oral Tablet 06/15/2023 Provide r: GISSEL TOMLINSON MD Diagnosis: Last Documented On 4 12:47PM By Zita Tim ; [facility] Amoxicillin-Pot Clavulanate 500-125 MG Oral Tablet 04/14/2023 Provider: GISSEL Urena (PO) Diagnosis: Last Documented On 4 12:47PM By Zita Tim ; [facility] Eliquis 5 MG Oral Tablet 04/12/2022 Provider: ALE TOMLINSON MD Diagnosis: Last Documented On 3 9:04AM By Zita Hodge ; [facility] Lactobacillus Acidophilus Powder 10/29/2021 Provider : Diagnosis: Last Documented On 2 1:37PM By Dr. Monroy ; [facility] valACYclovir HCl 1 GM Oral Tablet 10/27/2021 Provide r: Diagnosis: Last Documented On 2 1:36PM By Dr. Monroy ; [facility], [facility] Allopurinol 300 MG Oral Tablet 10/18/2021 Provider: Diagnosis: Last Documented On 2 1:36PM By Dr. Monroy ; [facility] Past Medications on file Medrol 4 MG Oral Tablet Therapy Pack 07/28/2023 - 08/04/2023 Provider: Ninfa ALMEIDAC Diagnosis: take as directed TAKE DIRECTED Last Documented On 4 1:16PM By Zita Tim ; [facility], [facility] Gabapentin 300 MG Oral Capsule 07/28/2023 - 08/07/2023 Provider: Marquis wood MD Diagnosis: one capsule by mouth three times a day Last Documented On 4 2:02PM By Marquis Truong ; [facility], [facility] Eliquis 5 MG Oral Tablet 01/14/2022 - 02/13/2022 Provi susan: Kvng Monroy MD Diagnosis: Take 1 tablet PO twice a day Last Documented On 2 2:16PM By Zita Hodge ; [facility], [facility] oxyCODONE-Acetaminophen 7.5- 325 MG Oral Tablet 01/01/2022 - 01/11/2022 Provider: Kvng Monroy MD Diagnosis: Take 1 tablet PO up to three times a day, PRN post op pain Last Documented On 2 3:17PM By Dr. Monroy ; [facility], [facility] Medications Administered Includes: Administered Medications from this encounter No Administered Medications Recorded Vital Signs Includes: Vital Signs from this encounter Vital Name 08/18/2023 09:04A Height (in) 66 Weight (lb) 155 Body Mass Index 25 Body Surface Area 1.8 Note: hdv Last Documented: On 08/18/2023 9:04AM ; [facility], [facility] Results Includes: Results discussed during this encounter No Results Recorded For Specified Dates History of Present Illness Includes: History of Present Illness from this encounter ARTURO Hu is a 73 year old male. - Symptoms Giving away. - Allergy list reviewed - Problem list reviewed - Medication list reviewed - Patient pain level from 1-10: 10 - Yes, previous treatment. Medications used for this condition: He is back in today for follow-up on his arm he says his symptoms are nearly resolved at this point Social History Description Last Updated Tobacco non-user 01/14/2022 Last Documented On 4 9:03AM ; [facility], [facility] Not a smoker 10/30/2021 Last Documented On 4 9:03AM ; [facility], [facility] Caffeine use 10/30/2021 Last Documented On 4 9:03AM ; [facility], [facility] Exercising regularly 10/30/2021 Last Documented On 4 9:03AM ; [facility], [facility] No recent change in diet 10/30/2021 Last Documented On 4 9:03AM ; [facility] Not a current smoker. 10/30/2021 Last Documented On 4 9:03AM ; [facility], [facility] Not using alcohol 10/30/2021 Last Documented On 4 9:03AM ; [facility] Not using drugs 10/30/2021 Last Documented On 4 9:03AM ; [facility] Non-smoker 10/29/2021 Last Documented On 4 9:03AM ; [facility] Sex - Male 10/23/2023 Last Documented On 4 12:35PM ; [facility] Smoking Status Unknown Procedures and Surgical History Includes: Procedures from this encounter Procedures Code Diagnosis Performing Provider Service L ocation Service Date use of tobacco assessment performed 1000F Last Documented On 4 9:03AM ; [facility] patient screened for future fall risk: documentation of any fall with injury in past year 1100F Last Documented On 4 9:03AM ; [facility] review of medications documented 1160F Last Documented On 4 9:03AM ; [facility] an X-ray was performed [id number] Last Documented On 4 9:03AM ; [facility] an MRI was performed [id number] Last Documented On 4 9:03AM ; [facility] Surgical History Last Updated History of back surgery 06/2021 Right L4-5 Laminectomy/Discectomy @ [facility] 01/14/2022 Last Documented On 4 9:03AM ; [facility] Medical History Includes: Medical History addressed during this encounter Description Last Updated Recent immunization for flu 2020 022 Last Documented On 4 9:03AM ; [facility], [facility] Past surgical history non-contributory 0 11/04/2021 Last Documented On 4 9:03AM ; [facility], [facility] History of History of Blood Clots 2021 Last Documented On 4 9:03AM ; [facility] History of History of Cancer 10/30/2021 Last Documented On 4 9:03AM ; [facility] No recent immunization for pneumococcal pneumonia 10/30/2021 Last Documented On 4 9:03AM ; [facility], [facility] Family History Includes: Family History addressed during this encounter Description Last Updated Diabetes mellitus 08/18/2023 Last Documented On 4 9:13AM ; [facility] Family history of cancer 08/18/2023 Last Documented On 4 9:13AM ; [facility] Family history of heart disease 08/18/19 24 Last Documented On 4 9:13AM ; [facility] Family history of systemic hypertension 08/18/2023 Last Documented On 4 9:13AM ; [facility] No significant family history 10/30/2021 Last Documented On 4 9:03AM ; [facility] Review of Systems Includes: Review of Systems from this encounter Systemic: Not feeling tired, no recent weight loss, and no recent weight gain. Head: No headache and no sinus pain. Eyes: No vision problems and no Cataracts. Glasses/Contacts. No Glaucoma. Otolaryngeal: No hearing loss. Tinnitus. Cardiovascular: No chest pain or discomfort, no palpitations, no Hypertension, and no High Cholesterol. Pulmonary: No daytime asthma symptoms and no chronic cough. No wheezing. Gastrointestinal: No heartburn and no abdominal pain. No Indigestion, no Acid Reflux, no Peptic Ulcer, no GI Stomach Bleed, and no Ulcers. Endocrine: No hot flashes, no muscle weakness, no Diabetes, no Hypothyroid, and no Hyperthyroid. Hematologic: No easy bleeding. A tendency for easy bruising. No Anemia. Musculoskeletal: No Arthritis and no lower back pain. No soft tissue swelling and no localized joint pain. Neurological: No dizziness and no convulsions. Numbness. Psychological: No anxiety, no emotional lability, no depression, and no insomnia. Not crying for no reason. Skin: No dry skin. No Ulcers, no Scars, and no rash. Allergic and Immunologic: No complaint of seasonal allergic reaction. Mental Status Includes: Mental Status from this encounter Description No anxiety Last Documented On 4 9:03AM ; [facility], [facility] Physical Exam Includes: Physical Exam from this encounter Allergies Includes: Active Allergies Substance Type Reaction Onset Date Resolved Date Statu s Shellfish Allergy 05/13/2022 Active Last Documented On 4 9:03AM ; [facility] IVP DYE Allergy 05/13/2022 Active Last Documented On 4 9:03AM ; [facility] Care Manager Body Name (Identifier) Role/Relation Location/Telecom Last Documented By BHAVANA ARTEAGA MD ([id number]) 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) [address] [place] [address], [place], [address] tel:[phone] Last Documented On 10/23/2023 12:35PM ; [facility] TRENA PANIAGUA MD ([id number]) [address] [place] [address] [place], [address] tel:[phone] Last Documented On 11/06/2021 9:35AM ; [facility] GISSEL TOMLINSON MD ([id number]) [address] [place] [address] [place], [address] tel:[phone] Last Documented On 12/29/2021 9:26AM ; [facility] Kvng Monroy MD ([id number]) Assigned practitioner (occupation) tel:[phone] Last Documented On 10/23/2023 12:35PM ; [facility] Encounters Encounter Provider Location (Healthcare Service Location) Date Check-In Time Check-Out Time Diagnosis Encounter Disposition Follow Up Ninfa Rao PA-C [facility] B 2023 9:01AM 9:12AM Payer Includes: Active Insurance Policies Plan Name (Payer ID) Coverage Type Member ID Group # Subscriber (ID) Relationship Effective Dates 1 - [employer] ([id number]) [id number] Corbin Hu Self 05/02/19 23 - Unknown Last Documented On 3 9:00AM ; [facility] Clinical Notes Includes: Clinical Notes from this encounter * Progress note Date Encounter Last Documented by 08/18/2023 Follow Up Last documented on 08/18/2023; 9:13 AM, Ninfa Rao PA-C; [facility], [facility] Active Problems & Conditions - Back Pain - Joint Pain, Localized in the Left Shoulder Chief Complaint The Chief Complaint is: Left shoulder pain. Referred Here Referred by. History of Present Illness Corbin Hu is a 73 year old male. - Symptoms Giving away. - Allergy list reviewed - Problem list reviewed - Medication list reviewed - Patient pain level from 1-10: 10 - Yes, previous treatment. Medications used for this condition: He is back in today for follow-up on his arm he says his symptoms are nearly resolved at this point Current Medication - Allopurinol 300 MG Oral Tablet 30 days, 0 refills - Amoxicillin-Pot Clavulanate 500-125 MG Oral Tablet 10 days, 0 refills - Diclofenac Sodium 75 MG Oral Tablet Delayed Release 15 days, 0 refills - Eliquis 5 MG Oral Tablet 90 days, 0 refills - Lactobacillus Acidophilus Powder use as directed 0 days, 0 refills - valACYclovir HCl 1 GM Oral Tablet 90 days, 0 refills - valACYclovir HCl 1 GM Oral Tablet 90 days, 0 refills Past Medical/Surgical History Reported: Immunization History: Recent immunization for flu 2020. No recent immunization for pneumococcal pneumonia. Diagnoses: History of Blood Clots History of Cancer Past surgical history non-contributory. Surgical: - Back surgery 01/01/2022 Right L4-5 Laminectomy/Discectomy @ [facility] Social History Not a current smoker. Current diet: No recent change in diet. Caffeine use: Caffeine use. Tobacco use: Tobacco non-user. Not a smoker. Non-smoker. Alcohol: Not using alcohol. Drug Use: Not using drugs. Habits: Exercising regularly. Allergies - IVP DYE - Shellfish Family History Cancer Heart disease No significant family history Diabetes mellitus Systemic hypertension Review Of Systems Systemic: Not feeling tired, no recent weight loss, and no recent weight gain. Head: No headache and no sinus pain. Eyes: No vision problems and no Cataracts. Glasses/Contacts. No Glaucoma. Otolaryngeal: No hearing loss. Tinnitus. Cardiovascular: No chest pain or discomfort, no palpitations, no Hypertension, and no High Cholesterol. Pulmonary: No daytime asthma symptoms and no chronic cough. No wheezing. Gastrointestinal: No heartburn and no abdominal pain. No Indigestion, no Acid Reflux, no Peptic Ulcer, no GI Stomach Bleed, and no Ulcers. Endocrine: No hot flashes, no muscle weakness, no Diabetes, no Hypothyroid, and no Hyperthyroid. Hematologic: No easy bleeding. A tendency for easy bruising. No Anemia. Musculoskeletal: No Arthritis and no lower back pain. No soft tissue swelling and no localized joint pain. Neurological: No dizziness and no convulsions. Numbness. Psychological: No anxiety, no emotional lability, no depression, and no insomnia. Not crying for no reason. Skin: No dry skin. No Ulcers, no Scars, and no rash. Allergic and Immunologic: No complaint of seasonal allergic reaction. Physical Findings - Vitals taken 08/18/2023 09:04 am hdv Height 66 in Weight 155 lbs Body Mass Index 25 kg/m2 Body Surface Area 1.8 m2 General Exam: The patient is awake and alert. No acute distress. Normal mood and affect for age. Well groomed and nourished Neuro: Sensation was intact to light touch over the extremity. Vascular: +2 radial pulses. No edema. Derm: No signs of active infection. No acute skin changes. Musculoskeletal: Normal gait and station. No muscle atrophy. No joint effusion. No muscle or bony deformity p active forward flexion is completed he has normal motion elbow forearm wrist and hand no pain no weakness on exam. Assessment Brachial plexitis Previous Tests Imaging: X-Ray: An X-ray was performed. MRI Scan: An MRI was performed. Plan Fall Risk Assessment: This patient has been identified as a fall risk. Balance/gait along with postural blood pressure, vision and home fall hazards have been assessed. Medications have been reviewed, and recommendations made with regard to contributing factors for future falls. Plan of care: Consideration of vitamin D supplementation along with balance and strength training with consideration for formal physical therapy has been discussed with the patient. He is back at baseline in his symptoms slowly resolved to being asymptomatic at this point over the course of about 3-4 weeks. I think we just watch this. We will hold off on any testing at this point. No formal restrictions Notes This dictation was done with voice recognition software and may contain errors and omissions. Practice Management Use of tobacco assessment performed and patient screened for future fall risk documentation of any fall with injury in past year Review of medications documented. Care Team - BHAVANA ARTEAGA MD - GRADALL OPERATOR - TRENA PANIAGUA MD - Infectious Disease - GISSEL TOMLINSON MD - Oncology
--- OUTSIDE RECORDS SUMMARY | 2025-04-30 09:34 | XMS_ITS | Clinical Summary ---
Author Organization [facility] , [facility] Address [address] [place] [address] Phone Care Team Providers Care Branch Account Manager Name Role Phone JENNI ALFARO, BHAVANA Ren Primary Care Provider [phone] SIVA ALFARO, TRENA Michaels Unavailable [phone] BUSHRA ALFARO, GISSEL Chowdhury Unavailable [phone] Porfirio ALFARO, Kvng Unavailable [phone] Reason for Visit and Chief Complaint The Chief Complaint is: Low back pain/drop foot Problems Includes: Problems addressed during this encounter and other active Problems All Visits Onset Date Date of Diagnosis Resolved Date Provider Condition Status Joint Pain Shoulder Left 07/28/2023 07/28/2023 Ninfa Rao PA-C Active Last Documented On 5 1:42AM ; [facility] Back Pain 10/30/2021 10/30/2021 Kvng Monroy MD Active Last Documented On 5 1:41AM ; [facility] Plan of Treatment Fall Risk Assessment: [...] with the patient. - Last Documented On 06/07/2022 9:08AM ; [facility] I have offered patient an epidural injection to see if this will improve his symptoms. He will think about this some. Otherwise we will just have to wait and see how much recovery occurs over time. - Last Documented On 06/07/2022 9:08AM ; [facility] Pending Tests Order Diagnosis Results Due Ordering P rovider Procedure/Tests EMG 05/27/22 CHRISTOFER HUBBARD PA-C Last Documented On 3 9:34AM ; [facility] Procedure/Tests Nerve Conduction Study 05/27/22 CHRISTOFER THORPE PA-C Last Documented On 3 9:34AM ; [facility] Radiology - MRI MRI Lumbar Spine 05/27/22 PATIENCE THORPE PA-C Last Documented On 3 9:35AM ; [facility] Instructions to patient Lose weight Last Documented On 3 8:42AM ; [facility] Assessments Includes: Assessments from this encounter Findings 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 - Last Documented On 06/07/2022 9:08AM ; [facility] Instructions Includes: Instructions from this encounter Instructions to patient Lose weight Last Documented On 3 8:42AM ; [facility] Medical Equipment - Implanted Devices Includes: Current Devices No Medical Equipment Recorded Medications Includes: Medications discussed during this encounter and other current Medications Current Medications (continue as prescribed) Diclofenac Sodium 75 MG Oral Tablet Delayed Release Provider: Diagnosis: Last Documented On 4 12:47PM By Zita Tmi ; [facility] valACYclovir HCl 1 GM Oral Tablet 06/15/2023 Provide r: GISSEL TOMLINSON MD Diagnosis: Last Documented On 4 12:47PM By Zita Tim ; [facility] Amoxicillin-Pot Clavulanate 500-125 MG Oral Tablet 04/14/2023 Provider: GISSEL Urena (PO) Diagnosis: Last Documented On 4 12:47PM By Zita Tim ; [facility] Eliquis 5 MG Oral Tablet 04/12/2022 Provider: ALE TOMLINSON MD Diagnosis: Last Documented On 3 9:04AM By Zita Hodge ; [facility] Lactobacillus Acidophilus Powder 10/29/2021 Provider : Diagnosis: Last Documented On 2 1:37PM By Dr. Monroy ; [facility] valACYclovir HCl 1 GM Oral Tablet 10/27/2021 Provide r: Diagnosis: Last Documented On 2 1:36PM By Dr. Monroy ; [facility] Allopurinol 300 MG Oral Tablet 10/18/2021 Provider: Diagnosis: Last Documented On 2 1:36PM By Dr. Monroy ; [facility] Past Medications on file Medrol 4 MG Oral Tablet Therapy Pack 07/28/2023 - 08/04/2023 Provider: Ninfa capps PA-C Diagnosis: take as directed TAKE DIRECTED Last Documented On 4 1:16PM By Zita Tim ; [facility] Gabapentin 300 MG Oral Capsule 07/28/2023 - 08/07/2023 Provider: Marquis wood MD Diagnosis: one capsule by mouth three times a day Last Documented On 4 2:02PM By Marquis Truong ; [facility] Eliquis 5 MG Oral Tablet 01/14/2022 - 02/13/2022 Provi susan: Kvng Monroy MD Diagnosis: Take 1 tablet PO twice a day Last Documented On 2 2:16PM By Zita Hodge ; [facility] oxyCODONE-Acetaminophen 7.5- 325 MG Oral Tablet 01/01/2022 - 01/11/2022 Provider: Kvng Monroy MD Diagnosis: Take 1 tablet PO up to three times a day, PRN post op pain Last Documented On 2 3:17PM By Dr. Monroy ; [facility] Medications Administered Includes: Administered Medications from this encounter No Administered Medications Recorded Results Includes: Results discussed during this encounter No Results Recorded For Specified Dates History of Present Illness Includes: History of Present Illness from this encounter ARTURO Hu is a 72 year old male. - Allergy list reviewed - Problem list reviewed - Medication list reviewed - Previous history of new onset pain Injury is not work related or an automotive accident - Pain is constant (100% of the time) - Pain is occasional (25% of the time) - Patient pain level from 1-10: 6 - Yes, previous treatment. Medications used for this condition: Patient returns following nerve study of the right leg as well as a lumbar MRI scan. Patient several months ago underwent laminectomy for nerve root compression to help with pain numbness and weakness affecting the right hip and leg. Patient's been dealing with basically foot pain since above. He has had weakness in the big toe on the right foot. The hip pain that he was having is much improved since his surgery but he still having some foot pain and some weakness in the big toe on the right foot. EMG nerve conduction studies were done as well as MRI scan to assess this further. Patient is return for further assessment and treatment options. Social History Description Last Updated Tobacco non-user 01/14/2022 Last Documented On 3 8:42AM ; [facility], [facility] Caffeine use 10/30/2021 Last Documented On 3 8:42AM ; [facility], [facility] Exercising regularly 10/30/2021 Last Documented On 3 8:42AM ; [facility], [facility] No recent change in diet 10/30/2021 Last Documented On 3 8:42AM ; [facility], [facility] Not a current smoker. 10/30/2021 Last Documented On 3 8:42AM ; [facility], [facility] Not using alcohol 10/30/2021 Last Documented On 3 8:42AM ; [facility], [facility] Not using drugs 10/30/2021 Last Documented On 3 8:42AM ; [facility], [facility] Sex - Male 10/23/2023 Last Documented On 4 12:35PM ; [facility], [facility] Smoking Status Unknown Procedures and Surgical History Includes: Procedures from this encounter Procedures Code Diagnosis Performing Provider Service L ocation Service Date use of tobacco assessment performed 1000F Last Documented On 3 8:42AM ; [facility], [facility] patient screened for future fall risk: documentation of any fall with injury in past year 1100F Last Documented On 3 8:42AM ; [facility], [facility] EMG was performed 06/03/2022 BLE @ [facility] [id number] Last Documented On 3 8:43AM ; [facility] an X-ray was performed 10/29/2021 [place] @ [facility] [id number] Last Documented On 3 8:42AM ; [facility] a CT scan was performed 10/15/2021 [place] @ [facility] [id number] Last Documented On 3 8:42AM ; [facility] an MRI was performed [facility] @ [facility] ~10/16/2021 [facility] @ [facility] ~06/03/2022 [place] @ [facility] [id number] Last Documented On 3 8:43AM ; [facility] Surgical History Last Updated History of back surgery 06/2021 Right L4-5 Laminectomy/Discectomy @ [facility] 01/14/2022 Last Documented On 3 8:42AM ; [facility] Medical History Includes: Medical History addressed during this encounter Description Last Updated Recent immunization for flu 2020 022 Last Documented On 3 8:42AM ; [facility] History of History of Blood Clots 2021 Last Documented On 3 8:42AM ; [facility] History of History of Cancer 10/30/2021 Last Documented On 3 8:42AM ; [facility] No recent immunization for pneumococcal pneumonia 10/30/2021 Last Documented On 3 8:42AM ; [facility] Family History Includes: Family History addressed during this encounter Description Last Updated No significant family history 10/30/2021 Last Documented On 3 8:42AM ; [facility] Review of Systems Includes: Review of Systems from this encounter Systemic: Not feeling tired, no recent weight loss, and no recent weight gain. Head: No headache and no sinus pain. Eyes: No vision problems and no Cataracts. Glasses/Contacts. No Glaucoma. Otolaryngeal: No hearing loss and no tinnitus. Cardiovascular: No chest pain or discomfort, no [...] Hypothyroid, and no Hyperthyroid. Hematologic: No easy bleeding, no tendency for easy bruising, and no Anemia. Musculoskeletal: No Arthritis. Lower back pain. No soft tissue swelling and no localized joint pain. Neurological: No dizziness and no convulsions. Numbness. Psychological: No anxiety, no emotional lability, no depression, and no insomnia. Not crying for no reason. Skin: No dry skin. No Ulcers, no Scars, and no rash. Allergic and Immunologic: No complaint of seasonal allergic reaction. Reviewed on 06/07/2022 Mental Status Includes: Mental Status from this encounter Description No anxiety Last Documented On 3 8:42AM ; [facility] Physical Exam Includes: Physical Exam from this encounter Allergies Includes: Active Allergies Substance Type Reaction Onset Date Resolved Date Statu s Shellfish Allergy 05/13/2022 Active Last Documented On 4 9:03AM ; [facility] IVP DYE Allergy 05/13/2022 Active Last Documented On 4 9:03AM ; [facility] Care Branch Account Manager Name (Identifier) Role/Relation Location/Telecom Last Documented By BHAVANA ARTEAGA MD ([id number]) 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) [address] [place] [address], [place], [address] tel:[phone] Last Documented On 10/23/2023 12:35PM ; [facility], [facility] TRENA PANIAGUA MD ([id number]) [address] [place] [address], [place], [address] tel:[phone] Last Documented On 11/06/2021 9:35AM ; [facility], [facility] GISSEL TOMLINSON MD ([id number]) [address] [place] [address], [address] tel:[phone] Last Documented On 12/29/2021 9:26AM ; [facility], [facility] Kvng Monroy MD ([id number]) Assigned practitioner (occupation) tel:[phone] Last Documented On 10/23/2023 12:35PM ; [facility] Encounters Encounter Provider Location (Healthcare Service Location) Date Check-In Time Check-Out Time Diagnosis Encounter Disposition Follow Up CHRISTOFER THORPE PA-C [facility] 2022 8:32AM 9:04AM Payer Includes: Active Insurance Policies Plan Name (Payer ID) Coverage Type Member ID Group # Subscriber (ID) Relationship Effective Dates 1 - [employer] [id number] Corbin Hu Self 05/02/19 23 - Unknown Last Documented On 9:00AM ; [facility] Clinical Notes Includes: Clinical Notes from this encounter * Progress note Date Encounter Last Documented by 06/07/2022 Follow Up Last documented on 06/07/2022; 9:08 AM, CHRISTOFER Devries; [facility] Active Problems & Conditions - Back Pain Chief Complaint The Chief Complaint is: Low back pain/drop foot. Referred Here Referred by GIANCARLO. History of Present Illness Corbin Hu is a 72 year old male. - Allergy list reviewed - Problem list reviewed - Medication list reviewed - Previous history of new onset pain Injury is not work related or an automotive accident - Pain is constant (100% of the time) - Pain is occasional (25% of the time) - Patient pain level from 1-10: 6 - Yes, previous treatment. Medications used for this condition: Patient returns following nerve study of the right leg as well as a lumbar MRI scan. Patient several months ago underwent laminectomy for nerve root compression to help with pain numbness and weakness affecting the right hip and leg. Patient's been dealing with basically foot pain since above. He has had weakness in the big toe on the right foot. The hip pain that he was having is much improved since his surgery but he still having some foot pain and some weakness in the big toe on the right foot. EMG nerve conduction studies were done as well as MRI scan to assess this further. Patient is return for further assessment and treatment options. Current Medication - Allopurinol 300 MG Oral Tablet 30 days, 0 refills - Eliquis 5 MG Oral Tablet 90 days, 0 refills - Lactobacillus Acidophilus Powder use as directed 0 days, 0 refills - valACYclovir HCl 1 GM Oral Tablet 90 days, 0 refills Past Medical/Surgical History Reported: Immunization History: Recent immunization for flu 2020. No recent immunization for pneumococcal pneumonia. Diagnoses: History of Blood Clots History of Cancer Surgical: - Back surgery 01/01/2022 Right L4-5 Laminectomy/Discectomy @ [facility] Social History Not a current smoker. Current diet: No recent change in diet. Caffeine use: Caffeine use. Tobacco use: Tobacco non-user. Alcohol: Not using alcohol. Drug Use: Not using drugs. Habits: Exercising regularly. Allergies - IVP DYE - Shellfish Family History No significant family history Review Of Systems Systemic: Not feeling tired, no recent weight loss, and no recent weight gain. Head: No headache and no sinus pain. Eyes: No vision problems and no Cataracts. Glasses/Contacts. No Glaucoma. Otolaryngeal: No hearing loss and no tinnitus. Cardiovascular: No chest pain or discomfort, no [...] Hypothyroid, and no Hyperthyroid. Hematologic: No easy bleeding, no tendency for easy bruising, and no Anemia. Musculoskeletal: No Arthritis. Lower back pain. No soft tissue swelling and no localized joint pain. Neurological: No dizziness and no convulsions. Numbness. Psychological: No anxiety, no emotional lability, no depression, and no insomnia. Not crying for no reason. Skin: No dry skin. No Ulcers, no Scars, and no rash. Allergic and Immunologic: No complaint of seasonal allergic reaction. Reviewed on 06/07/2022 Physical Findings \Patient not complaining of any back pain. He has good mobility. Get up and down easily. Good range of motion. Strength with hip flexion. Knee flexion and extension 5 out of 5 strength. Ankle dorsiflexion is 3 out of 5 on the. And he has really no dorsiflexion of the big toe. Only some plantarflexion. Tests Review of his MRI scan showing that he has relatively good disc height. There are some residual disc bulging at multiple levels. There appears to be some stenosis remaining at the L4-5 level and L5-S1 as well. But not associated with high- grade stenosis. 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 There are some remodeling present. Which may indicate some healing of the nerve but still dysfunctional. 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 Previous Tests Laboratory Studies: Neuro-Electrical Functions: EMG was performed 06/03/2022 BLE @ [facility]. Imaging: X-Ray: An X-ray was performed 10/29/2021 [facility] @ [facility]. CT Scan: A CT scan was performed 10/15/2021 [facility] @ [facility]. MRI Scan: An MRI was performed 10/15/2021 [place] @ [facility] 10/16/2021 [facility] @ [facility] 06/03/2022 [facility] @ [facility]. Counseling/Education - Lose weight Plan Fall Risk Assessment: This patient has [...] therapy has been discussed with the patient. I have offered patient an epidural injection to see if this will improve his symptoms. He will think about this some. Otherwise we will just have to wait and see how much recovery occurs over time. Notes This dictation was done with voice recognition software and may contain errors and omissions. Practice Management Use of tobacco assessment performed and patient screened for future fall risk documentation of any fall with injury in past year. Care Team - BHAVANA ARTEAGA MD - COPY CHASER - TRENA PANIAGUA MD - Infectious Disease - GISSEL TOMLINSON MD - Oncology Health Reminders - Assess Tobacco Use satisfied 01/14/2022.
--- OUTSIDE RECORDS SUMMARY | 2025-04-30 09:34 | XMS_ITS ---
Author Organization [facility] Address [address] [place] [address] Phone Care Team Providers Care Senior Clerk Name Role Phone JENNI ALFARO, BHAVANA Ren Primary Care Provider [phone] SIVA ALFARO, TRENA Michaels Unavailable [phone] BUSHRA ALFARO, GISSEL Chowdhury Unavailable [phone] Porfirio ALFARO, Garcia Unavailable [phone] Reason for Referral 02/25/2022 Encounter for Post Op Date Recorded Target Due Date Referral Type Referring Prov ider Reason For Referral 02/25/2022 Garcia Workman MD referr al to physician Last Documented On 2 9:35AM ; [facility] 01/14/2022 Encounter for Post Op Date Recorded Target Due Date Referral Type Referring Prov ider Reason For Referral 01/14/2022 Garcia Workman MD referr al to physician Last Documented On 2 11:12AM ; [facility] 10/29/2021 Encounter for Physician Specified Date Recorded Target Due Date Referral Type Referring Prov ider Reason For Referral 10/29/2021 Garcia Workman MD referr al to physician Last Documented On 2 9:37AM ; [facility] Problems Includes: Active, inactive, and resolved Problems All Visits Onset Date Date of Diagnosis Resolved Date Provider Condition Status Joint Pain Shoulder Left 07/28/2023 07/28/2023 Ninfa Rao PA-C Active Last Documented On 5 1:42AM ; [facility] Back Pain 10/30/2021 10/30/2021 Garcia Workman MD Active Last Documented On 5 1:41AM ; [facility] Plan of Treatment Pending Tests Order Diagnosis Results Due Ordering P rovider Procedure/Tests EMG 05/27/22 CHRISTOFER HUBBARD PA-C Last Documented On 3 9:34AM ; [facility] Procedure/Tests Nerve Conduction Study 05/27/22 CHRISTOFER THORPE PA-C Last Documented On 3 9:34AM ; [facility] Radiology - MRI MRI Lumbar Spine 05/27/22 PATIENCE THORPE PA-C Last Documented On 3 9:35AM ; [facility] Instructions to patient Lose weight Last Documented On 3 8:42AM ; [facility] Lose weight Last Documented On 3 9:04AM ; [facility] Lose weight Last Documented On 2 9:35AM ; [facility] Lose weight Last Documented On 2 11:12AM ; [facility] Lose weight Last Documented On 2 1:38PM ; [facility] Assessments Includes: Assessments for all patient encounters Findings Encounter Date No diagnosis of underweight [Patient Encounter] with Garcia Workman MD 12/24/2021 Last Documented On 2 4:47PM ; [facility] No diagnosis of underweight Physician Specified with Garcia Workman MD 10/29/2021 Last Documented On 2 1:38PM ; [facility] Instructions Includes: Instructions for all patient encounters Instructions to patient Lose weight Last Documented On 3 8:42AM ; [facility] Lose weight Last Documented On 3 9:04AM ; [facility] Lose weight Last Documented On 2 9:35AM ; [facility] Lose weight Last Documented On 2 11:12AM ; [facility] Lose weight Last Documented On 2 1:38PM ; [facility] Medical Equipment - Implanted Devices Includes: Current and historical Devices No Medical Equipment Recorded Medications Includes: Current and historical Medications Current Medications (continue as prescribed) Diclofenac Sodium 75 MG Oral Tablet Delayed Release Provider: Diagnosis: Last Documented On 4 12:47PM By Zita Tim ; [facility] valACYclovir HCl 1 GM Oral Tablet 06/15/2023 Provide r: GISSEL TOMLINSON MD Diagnosis: Last Documented On 4 12:47PM By Zita Tim ; [facility] Amoxicillin-Pot Clavulanate 500-125 MG Oral Tablet 04/14/2023 Provider: GISSEL Urena (PO) Diagnosis: Last Documented On 4 12:47PM By Zita Tim ; [facility] Eliquis 5 MG Oral Tablet 04/12/2022 Provider: ALE TOMLINSON MD Diagnosis: Last Documented On 3 9:04AM By Zita Hodge ; [facility] Lactobacillus Acidophilus Powder 10/29/2021 Provider : Diagnosis: Last Documented On 2 1:37PM By Dr. Workman ; [facility] valACYclovir HCl 1 GM Oral Tablet 10/27/2021 Provide r: Diagnosis: Last Documented On 2 1:36PM By Dr. Workman ; [facility] Allopurinol 300 MG Oral Tablet 10/18/2021 Provider: Diagnosis: Last Documented On 2 1:36PM By Dr. Workman ; [facility] Past Medications on file Medrol 4 MG Oral Tablet Therapy Pack 07/28/2023 - 08/04/2023 Provider: Ninfa capps PA-C Diagnosis: take as directed TAKE DIRECTED Last Documented On 4 1:16PM By Zita Tim ; [facility] Gabapentin 300 MG Oral Capsule 07/28/2023 - 08/07/2023 Provider: Marquis wood MD Diagnosis: one capsule by mouth three times a day Last Documented On 4 2:02PM By Marquis Truong ; [facility] Eliquis 5 MG Oral Tablet 01/14/2022 - 02/13/2022 Provi susan: Garcia Workman MD Diagnosis: Take 1 tablet PO twice a day Last Documented On 2 2:16PM By Zita Hodge ; [facility] oxyCODONE-Acetaminophen 7.5- 325 MG Oral Tablet 01/01/2022 - 01/11/2022 Provider: Garcia Workman MD Diagnosis: Take 1 tablet PO up to three times a day, PRN post op pain Last Documented On 2 3:17PM By Dr. Workman ; [facility] oxyCODONE-Acetaminophen 7.5- 325 MG Oral Tablet 01/01/2022 - 01/11/2022 Provider: GARCIA WORKMAN MD Diagnosis: Last Documented On 3 9:04AM By Zita Hodge ; [facility] Lactobacillus Acidophilus Powder 10/30/2021 - 10/30/19 Provider: Diagnosis: Last Documented On 2 1:37PM By Dr. Workman ; [facility] Eliquis 5 MG Oral Tablet 10/30/2021 - 10/29/2021 Provi susan: Diagnosis: Last Documented On 2 1:37PM By Dr. Workman ; [facility] Allopurinol 300 MG Oral Tablet 10/30/2021 - 10/29/2021 Provider: Diagnosis: Last Documented On 2 1:37PM By Dr. Workman ; [facility] Eliquis 5 MG Oral Tablet 10/18/2021 - 12/18/2021 Provi susan: Diagnosis: Last Documented On 2 12:18PM By Zita Hodge ; [facility] Medications Administered Includes: Administered Medications in patient's chart No Administered Medications Recorded Results Includes: Results from 04/30/2024 through 04/30/2025 No Results Recorded For Specified Dates Social History Description Last Updated Tobacco non-user 01/14/2022 Last Documented On 2 4:11PM ; [facility] Not a smoker 10/30/2021 Last Documented On 2 2:57PM ; [facility] Caffeine use 10/30/2021 Last Documented On 2 2:57PM ; [facility] Exercising regularly 10/30/2021 Last Documented On 2 2:57PM ; [facility] No recent change in diet 10/30/2021 Last Documented On 2 2:57PM ; [facility] Not a current smoker. 10/30/2021 Last Documented On 2 2:57PM ; [facility] Not using alcohol 10/30/2021 Last Documented On 2 2:57PM ; [facility] Not using drugs 10/30/2021 Last Documented On 2 2:57PM ; [facility] Non-smoker 10/29/2021 Last Documented On 2 2:57PM ; [facility] Sex - Male 10/23/2023 Last Documented On 4 12:35PM ; [facility] Smoking Status Unknown Procedures and Surgical History Surgical History Last Updated History of back surgery 06/2021 Right L4-5 Laminectomy/Discectomy @ E 01/14/2022 Last Documented On 2 4:11PM ; [facility] Medical History Includes: Medical History in patient's chart Description Last Updated Recent immunization for flu 2020 022 Last Documented On 2 4:11PM ; [facility] Past surgical history non-contributory 0 11/04/2021 Last Documented On 2 2:57PM ; [facility] History of History of Blood Clots 2021 Last Documented On 2 2:57PM ; [facility] History of History of Cancer 10/30/2021 Last Documented On 2 2:57PM ; [facility] No recent immunization for pneumococcal pneumonia 10/30/2021 Last Documented On 2 2:57PM ; [facility] Family History Includes: Family History in patient's chart Description Last Updated Diabetes mellitus 07/28/2023 Last Documented On 4 9:15AM ; [facility] Family history of cancer 07/28/2023 Last Documented On 4 9:15AM ; [facility] Family history of heart disease 07/28/19 Last Documented On 4 9:15AM ; [facility] Family history of systemic hypertension 07/28/2023 Last Documented On 4 9:15AM ; [facility] No significant family history 10/30/2021 Last Documented On 2 2:57PM ; [facility] Mental Status Description No anxiety Last Documented On 4 9:03AM ; [facility] No anxiety Last Documented On 4 12:48PM ; [facility] No anxiety Last Documented On 3 8:42AM ; [facility] No anxiety Last Documented On 3 9:04AM ; [facility] No anxiety Last Documented On 2 9:35AM ; [facility] No anxiety Last Documented On 2 11:10AM ; [facility] No anxiety Last Documented On 2 4:47PM ; [facility] No anxiety Last Documented On 2 8:41AM ; [facility] Immunizations Includes: Immunizations in patient's chart Vaccine Dose # Date Site Reaction(s) Status Source Influenza 1 01/30/2021 Complete (Reported) Patient Last Documented On 2 5:05PM ; [facility] PCV (Pneumovax 23) 1 10/29/2021 Complete (Refused - Patient objection) [facility] Last Documented On 2 5:05PM ; [facility] Allergies Includes: Active, inactive, and resolved Allergies Substance Type Reaction Onset Date Resolved Date Statu s Shellfish Allergy 05/13/2022 Active Last Documented On 4 9:03AM ; [facility] IVP DYE Allergy 05/13/2022 Active Last Documented On 4 9:03AM ; [facility] Care Senior Clerk Name (Identifier) Role/Relation Location/Telecom Last Documented By BHAVANA ARTEAGA MD ([id number]) 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) [address] [facility] [facility], [place], [place], [place], [address] tel:[phone] Last Documented On 10/23/2023 12:35PM ; [facility] TRENA PANIAGUA MD ([id number]) [address] [place], [address] tel:[phone] Last Documented On 11/06/2021 9:35AM ; [facility] GISSEL TOMLINSON MD ([id number]) [address] [place] [address] [place], [address] tel:[phone] Last Documented On 12/29/2021 9:26AM ; [facility] Garcia Workman MD ([id number]) Assigned practitioner (occupation) tel:[phone] Last Documented On 10/23/2023 12:35PM ; [facility] Payer Includes: Active Insurance Policies Plan Name (Payer ID) Coverage Type Member ID Group # Subscriber (ID) Relationship Effective Dates 1 - [employer] [place] [id number] Corbin Hu Self 05/02/19 23 - Unknown Last Documented On 3 9:00AM ; [facility]
--- OUTSIDE RECORDS SUMMARY | 2025-04-30 09:34 | XMS_ITS | Encounter Summary ---
Author Organization Healthcare Address [address] [place] [address] Care Team Providers Care Dental Equipment Technician Name Role Phone Per Patient, None Primary Care Provider Unavaila ble Encounter Details Date Type Department Care Team (Late st Contact Info) Description 01/07/2021 Orders Only [facility] [address] [place] [address] Maurisio Aguilar MD [address] [address] Social History Tobacco Use Types [...] Band Neutrophil% 0.0 0.0 - 7.0 % [facility] External Atypical Lymph% 4(H) 0 - 1 % [facility] External Metamyelocyte % 0 0 - 1 % [facility] External Myelocyte % 0 0 - 1 % [facility] External Promyelocyte% 0 % [facility] External Blast% 0 % [facility] External Nucleated RBC%-Manual 0 /100 WBC [facility] External Smudge Cells 0 [facility] External Platelet Morphology NORMAL [facility] External Ovalocytes SLIGHT(A) [facility] External Tear Drop Cells SLIGHT(A) [facility] 01/07/2021 10:0 5 AM EDT 01/07/2021 10:20 AM EDT us Maurisio Aguilar MD LAB BLOOD ORDERABLES Final Res ult Performing Organization Address City/State/[facility] Co de Phone Number [facility] [address] [place] [address], documented in this encounter Visit Diagnoses Not on filedocumented in this encounter Care Teams Dental Equipment Technician Relationship Specialty Start Date End Date Per Patient, [place] [address] PCP - General 05/02/20 documented as of this encounter
--- OUTSIDE RECORDS SUMMARY | 2025-04-30 09:34 | XMS_ITS | Clinical Summary ---
Author Organization [facility] Address [address] [place] [address] Phone Care Team Providers Care Lubrication Equipment Servicer Name Role Phone JENNI ALFARO, BHAVANA Ren Primary Care Provider [phone] SIVA ALFARO, TRENA Michaels Unavailable [phone] BUSHRA ALFARO, GISSEL Chowdhury Unavailable [phone] Porfirio ALFARO, Kvng Unavailable [phone] Reason for Visit and Chief Complaint MRI Problems Includes: Problems addressed during this encounter and other active Problems All Visits Onset Date Date of Diagnosis Resolved Date Provider Condition Status Joint Pain Shoulder Left 07/28/2023 07/28/2023 Ninfa Rao PA-C Active Last Documented On 5 1:42AM ; [facility] Back Pain 10/30/2021 10/30/2021 Kvng Monroy MD Active Last Documented On 5 1:41AM ; [facility] Plan of Treatment No Plan of Treatment Recorded Assessments Includes: Assessments from this encounter No Assessments Recorded Medical Equipment - Implanted Devices Includes: Current Devices No Medical Equipment Recorded Medications Includes: Medications discussed during this encounter and other current Medications Current Medications (continue as prescribed) Diclofenac Sodium 75 MG Oral Tablet Delayed Release Provider: Diagnosis: Last Documented On 4 12:47PM By Zita Tim ; [facility] valACYclovir HCl 1 GM Oral Tablet 06/15/2023 Provide r: GISSEL TOMLINSON MD Diagnosis: Last Documented On 4 12:47PM By Zita Tim ; [facility] Amoxicillin-Pot Clavulanate 500-125 MG Oral Tablet 04/14/2023 Provider: GISSEL Urena (PO) Diagnosis: Last Documented On 4 12:47PM By Zita Tim ; [facility], [facility] Eliquis 5 MG Oral Tablet 04/12/2022 Provider: ALE TOMLINSON MD Diagnosis: Last Documented On 3 9:04AM By Zita Hodge ; [facility] Lactobacillus Acidophilus Powder 10/29/2021 Provider : Diagnosis: Last Documented On 2 1:37PM By Dr. Monroy ; [facility] valACYclovir HCl 1 GM Oral Tablet 10/27/2021 Provide r: Diagnosis: Last Documented On 2 1:36PM By Dr. Monroy ; [facility] Allopurinol 300 MG Oral Tablet 10/18/2021 Provider: Diagnosis: Last Documented On 2 1:36PM By Dr. Monroy ; [facility] Medications Administered Includes: Administered Medications from this encounter No Administered Medications Recorded Results Includes: Results discussed during this encounter No Results Recorded For Specified Dates History of Present Illness Includes: History of Present Illness from this encounter No History of Present Illness Recorded Social History Description Last Updated Sex - Male 10/23/2023 Last Documented On 4 12:35PM ; [facility] Smoking Status Unknown Medical History Includes: Medical History addressed during this encounter No Medical History Recorded Family History Includes: Family History addressed during this encounter No Family History Recorded Review of Systems Includes: Review of Systems from this encounter No Review of Systems Recorded Physical Exam Includes: Physical Exam from this encounter No Physical Exam Recorded Allergies Includes: Active Allergies Substance Type Reaction Onset Date Resolved Date Statu s Shellfish Allergy 05/13/2022 Active Last Documented On 4 9:03AM ; [facility] IVP DYE Allergy 05/13/2022 Active Last Documented On 4 9:03AM ; [facility] Care Lubrication Equipment Servicer Name (Identifier) Role/Relation Location/Telecom Last Documented By BHAVANA ARTEAGA MD ([id number]) 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) [address] [place] [address], [address] tel:[phone] Last Documented On 10/23/2023 12:35PM ; [facility] TRENA PANIAGUA MD ([id number]) [address] [address], [place], [place], , [address] tel:[phone] Last Documented On 11/06/2021 9:35AM ; [facility] GISSEL TOMLINSON MD ([id number]) [address] [place] [address], [place], [place], [address] tel:[phone] Last Documented On 12/29/2021 9:26AM ; [facility] Kvng Monroy MD ([id number]) Assigned practitioner (occupation) tel:[phone] Last Documented On 10/23/2023 12:35PM ; [facility] Encounters Encounter Provider Location (Healthcare Service Location) Date Check-In Time Check-Out Time Diagnosis Encounter Disposition MRI [facility] 023 1:55PM 2:32PM Payer Includes: Active Insurance Policies Plan Name (Payer ID) Coverage Type Member ID Group # Subscriber (ID) Relationship Effective Dates 1 - [employer] ARE ([id number]) [id number] Corbin Hu Self 05/02/19 23 - Unknown Last Documented On 3 9:00AM ; [facility]
--- OUTSIDE RECORDS SUMMARY | 2025-04-30 09:34 | XMS_ITS | Clinical Summary ---
Author Organization [employer] ([place], [place], [place], [place], [place]) Address [address] [place] [address] Care Team Providers Care Second Cutter Name Role Phone Eladio Lomas MD Unavailable Breanna Crow PA-C Unavailable [phone] Allergies Active Allergy Reactions Criticality Noted Date Comments Iodinated Contrast Media 03/24/2022 Medications valACYclovir (VALTREX) 1000 MG tablet Take 1 tablet (1,000 mg total) by mouth daily. Active fluticasone propionate (FLONASE) 50 mcg/actuation nasal spray Administer 2 sprays into each nostril daily as needed for rhinitis. Active levocetirizine (XYZAL) 5 MG tablet Take 1 tablet (5 mg total) by mouth nightly. Active aspirin 81 MG EC tablet Take 1 tablet (81 mg total) by mouth daily. Active ferrous sulfate 325 (65 FE) MG EC tablet Take 1 tablet (325 mg total) by mouth 3 (three) times daily with meals. Active Active Problems Problem Noted Date Diagnosed [...] Do you speak a language other than [place] at [facility]? No 12/11/2024 Do you want help with [...] Sign Reading Time Taken Comments Blood Pressure 138/60 01/28/2025 9:53 AM EDT Pulse 75 01/28/2025 9:53 AM EDT Temperature 36.5 C (97.7 F) 12/14/2024 8:22 AM EDT Respiratory Rate 18 12/14/2024 8:22 AM EDT Oxygen Saturation 96% 01/28/2025 9:53 AM EDT Inhaled Oxygen Concentration - - Weight 63 kg (139 lb) 01/28/2025 9:53 AM EDT Height 167.6 cm (5' 6 ) 01/28/2025 9:53 AM EDT Body Mass Index 22.44 01/28/2025 9:53 AM EDT Plan of Treatment Health Maintenance Due Date Last Done Comments Medicare Initial AWV [id number] Depression Screening (12+) 1962 Hepatitis C Screening 01/05/1966 DTAP/TDAP/TD VACCINES (1 - Tdap) 01/05/1967 Shingles Vaccine (Zoster) (2 of 2) 04/08/20222021 Respiratory Syncytial Virus (RSV) Adult or (1 - 1-dose 75+ series) 01/05/2023 Falls Risk Screening 05/02/2024 COVID-19 VACCINE ( - 2024-2 6 season) 2024 03/05/2022, 08/25/2021, 03/02/2021, Additional history exists Influenza Vaccine (#1) 2024 2, 02/05/2021, 04/10/2018, Additional history exists Tobacco Cessation Counseling and Screening (12+) 01/28/2026 01/28/2025 Pneumococcal 50+ years Completed 02/09/2022 Insurance [facility] MEDICARE PPO [facility] MEDIC[facility] PPO Advance Directives For more information, please contact: [phone] * DNR - Limited Additional Intervention (Latest Code Status on File) Date Activated Date Inactivated Comments 12/11/2024 4:28 PM 12/14/2024 3:42 PM Care Teams Second Cutter Relationship Specialty Start Date End Date Eladio Lomas MD [address] [facility] [address] [place] [address] Medical Oncologist Hematology and Oncology 07/08/22 Breanna Crow, PARebelC [address] [place] [address] Physician Asset Protection Associate Oncology 07/08/22
--- OUTSIDE RECORDS SUMMARY | 2025-04-30 09:34 | XMS_ITS | Clinical Summary ---
Author Organization [facility] Address [address] [place] [address] Phone Care Team Providers Care Process Engineer Name Role Phone Godfrey ALFARO, José Miguel Michaels [facility] [phone] [ ] Conditions or Problems Problem Name Problem Code Onset Date Status Entry Date Provider Comment Standard Description Annotate Acute DVT of leg, right 301184062 (SNOMED CT) Active José Miguel Donahue MD Deep venous thrombosis of lower extremity Health advice, education, or counseling 566930393 (SNOMED CT) Active José Miguel Donahue MD Procedure carried out on subject PERSONAL HISTORY OF IMMUNOSUPPRES PILLO THERAPY 992835414 (SNOMED CT) 12/10 Active 12/10 José Miguel Donahue MD History of immunosuppressiv e therapy Foot drop, right 4061385 (SNOMED CT) 10/27 Active 10/27 José Miguel Donahue MD Foot-drop Benign Essential Hypertension 32474731 (SNOMED CT) 10/22 Active 10/22 Dorothy Juanpablo Benign hypertension Disseminated herpes zoster 12767284 (SNOMED CT) 10/22 Active 10/22 Dorothy Juanpablo Disseminated herpes zoster 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 10/22 Dorothy Juanpablo Leukemoid reaction Chronic lymphoid leukemia 31378186 (SNOMED CT) 10/22 Active 10/22 Dorothy Juanpablo Chronic lymphoid leukemia, disease Medications Medication Instructions Start Date Stop Date Generic Name [facility] Provider ELIQUIS 5 MG TABS twice a day apixaban 05955780841 Tonia Noland VALTREX 1 GM TABS Take 1 tablet by mouth once a day valacyclovir 88434484675 José Miguel Donahue MD ALLOPURINOL 300 MG TABS 1 tablet by mouth once a day allopurinol 39356570923 Suzanne Cope ELIQUIS 5 MG TABS 2 tablet by mouth twice a day apixaban 87795683442 Suzanne Cope PREDNISONE 10 MG TABS Take as directed prednisone 49707574154 Suzanne Cope VALTREX 500 MG TABS 2 tablet by mouth once a day valacyclovir 78837605848 Faby Donahue VALTREX 1 GM TABS Take 1 tablet by mouth once a day valacyclovir 20517124665 Faby Donahue ALLOPURINOL 300 MG TABS 1 tablet by mouth once a day allopurinol 08468186088 Marianayvette Wiggins ELIQUIS 5 MG TABS 2 tablet by mouth twice a day apixaban 98434434104 Marianayvette Wiggins Lactobacillus acidophilus 1 billion cell capsule 1 capsule by mouth twice a day lactobacillus acidophilus Mariana Wiggins MULTI-VITAMINS TABS multivitamin 50787371052 Mariana Wiggins PREDNISONE 10 MG TABS Take as directed prednisone 24620804683 Mariana Wiggins TYLENOL 325 MG TABS 2 tablet by mouth every four hours as needed acetaminophen 23935937321 Mariana Wiggins VALTREX 500 MG TABS 2 tablet by mouth once a day valacyclovir 69572856575 Mariana Rosalie Medications Administered No information available. [...] Labs CPT-sl STAT Labs CPT-sl STAT Labs CPT-11641 CMP [id number] CBC with Differential 2021 Vital Signs Date [...]
--- OUTSIDE RECORDS SUMMARY | 2025-04-30 09:34 | XMS_ITS | Clinical Summary ---
Author Organization [facility] Address [address] [place] [address] Phone Care Team Providers Care Stone Fabricator Name Role Phone JENNI ALFARO, BHAVANA Ren Primary Care Provider [phone] SIVA ALFARO, TRENA Michaels Unavailable [phone] BUSHRA ALFARO, GISSEL Chowdhury Unavailable [phone] Porfirio ALFARO, Kvng Unavailable [phone] Reason for Visit and Chief Complaint EMG Problems Includes: Problems addressed during this encounter and other active Problems All Visits Onset Date Date of Diagnosis Resolved Date Provider Condition Status Joint Pain Shoulder Left 07/28/2023 07/28/2023 Ninfa Rao PA-C Active Last Documented On 5 1:42AM ; [facility] Back Pain 10/30/2021 10/30/2021 Kvng Monroy MD Active Last Documented On 5 1:41AM ; [facility] Plan of Treatment No Plan of Treatment [...] On 4 12:47PM By Zita Tim ; [facility] valACYclovir HCl 1 GM Oral Tablet 06/15/2023 Provide r: GISSEL TOMLINSON MD Diagnosis: Last Documented On 4 12:47PM By Zita Tim ; [facility] Amoxicillin-Pot Clavulanate 500-125 MG Oral Tablet 04/14/2023 Provider: GISSEL Urena (PO) Diagnosis: Last Documented On 4 12:47PM By Zita Tim ; [facility] Eliquis 5 MG Oral Tablet 04/12/2022 Provider: ALE TOMLINSON MD Diagnosis: Last Documented On 3 9:04AM By Zita Hodge ; [facility] Lactobacillus Acidophilus Powder 10/29/2021 Provider : Diagnosis: Last Documented On 2 1:37PM By Dr. Monroy ; [facility] valACYclovir HCl 1 GM Oral Tablet 10/27/2021 Provide r: Diagnosis: Last Documented On 2 1:36PM By Dr. Monroy ; [facility] Allopurinol 300 MG Oral Tablet 10/18/2021 Provider: Diagnosis: Last Documented On 2 1:36PM By Dr. Monroy ; [facility] Medications Administered Includes: Administered Medications from this encounter No Administered Medications Recorded Results Includes: Results discussed during this encounter No Results Recorded For Specified Dates History of Present Illness Includes: History of Present Illness from this encounter No History of Present Illness Recorded Social History Description Last Updated Sex - Male 10/23/2023 Last Documented On 4 12:35PM ; [facility] Smoking Status Unknown Medical History Includes: Medical [...] Active Last Documented On 4 9:03AM ; [facility] IVP DYE Allergy 05/13/2022 Active Last Documented On 4 9:03AM ; [facility] Care Stone Fabricator Name (Identifier) Role/Relation Location/Telecom Last Documented By BHAVANA ARTEAGA MD ([id number]) 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) [address] [place] [address], [address] tel:[phone] Last Documented On 10/23/2023 12:35PM ; [facility] TRENA PANIAGUA MD ([id number]) [address] [address], [place], [place], , [address] tel:[phone] Last Documented On 11/06/2021 9:35AM ; [facility] GISSEL TOMLINSON MD ([id number]) [address] [place] [address], [place], [place], [address] tel:[phone] Last Documented On 12/29/2021 9:26AM ; [facility] Kvng Monroy MD ([id number]) 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 practitioner (occupation) tel:[phone] Last Documented On 10/23/2023 12:35PM ; [facility] Encounters Encounter Provider Location (Healthcare Service Location) Date Check-In Time Check-Out Time Diagnosis Encounter Disposition [facility] 023 3:02PM 11:59PM Payer Includes: Active Insurance Policies Plan Name (Payer ID) Coverage Type Member ID Group # Subscriber (ID) Relationship Effective Dates 1 - [employer] [id number]) [id number] Corbin Hu Self 05/02/19 23 - Unknown Last Documented On 3 9:00AM ; [facility]
--- OUTSIDE RECORDS SUMMARY | 2025-04-30 09:34 | XMS_ITS | Encounter Summary ---
Author Organization Healthcare Address [address] [place] [address] Care Team Providers Care Professional Volleyball Player Name Role Phone Per Patient, None Primary Care Provider Unavaila ble Encounter Details Date Type Department Care Team (Late st Contact Info) Description 01/07/2021 Orders Only [facility] [address] [place] [address] Maurisio Aguilar MD [address] [address] Social History Tobacco Use Types [...] 6.9 3.8 - 10.8 K/uL [facility] External Red Blood Cell (RBC) 5.24 4.20 - 5.80 M/uL [facility] External Hemoglobin 15.5 14.0 - 18.0 G/DL [facility] External Hematocrit 44.1 40.0 - 52.0 % [facility] External MCV 84 80 - 100 fL [facility] External MCH 30 26 - 35 PG [facility] External MCHC 35 32 - 36 G/DL [facility] External RDW 13.5 11.0 - 15.0 % [facility] External Mean Platelet Volume 7.6 6.2 - 10.5 fL [facility] External Platelets 162 130 - 400 K/uL [facility] External Neutrophil# 3.0 1.6 - 8.4 K/uL [facility] External Lymphocyte# 3.2 0.4 - 5.1 K/uL [facility] External Absolute Monocyte (Abs [place]) 0.4 0.0 - 1.2 K/uL [facility] External Eosinophils# 0.1 0.0 - 0.8 K/uL [facility] External Baso# 0.0 0.0 - 0.3 K/uL [facility] External Neutrophils % 43.0 42.0 - 78.0 % [facility] External Lymphocyte % 46.0 11.0 - 47.0 % [facility] External Monocyte % 6.0 0.0 - 11.0 % [facility] External Eosinophil% 1.0 0.0 - 7.0 % [facility] External Basophil % 0.0 0.0 - 3.0 % [facility] External Nucleated RBC%-Auto 0.2 0.0 - 0.9 % [facility] External Nucleated RBC Absolute 0.01 Not Estab. K/uL [facility] 01/07/2021 10:0 5 AM EDT 01/07/2021 10:20 AM EDT us Maurisio Aguilar MD LAB BLOOD ORDERABLES Final Res ult Performing Organization Address City/State/[facility] Co de Phone Number [facility] [address] [id number], documented in this encounter Visit Diagnoses Not on filedocumented in this encounter Care Teams Professional Volleyball Player Relationship Specialty Start Date End Date Per Patient, [place] [address] PCP - General 05/02/20 documented as of this encounter
--- OUTSIDE RECORDS SUMMARY | 2025-04-30 09:34 | XMS_ITS | Data Portability ---
Author Organization 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 He is doing very well clinically and serologically. Therefore, we will continue to follow with observation only. This will include return to clinic now in 6 months with examination and lab work. He voiced understanding and agreement with the above. I have asked him to let me know if there are any questions or concerns at any time. I did explain that I will be leaving the [facility] in mid-April and he requests follow up with my partner, Dr. Lord. I noted that he would be in excellent hands. [email or web address] Not available 03/13/2019 09:41:59 09/12/2019 09/12/2019 This is 69-year-old male with a longstanding history of CLL, eventual progression to treatment with bendamustine and Rituxan. Since that time, he has really not had any strong evidence of any recurrent disease. Unfortunately, we were visiting via telephone today due to the coronavirus concerns. At this point, his labs are good, he has no real overall signs and symptoms of any issues. At this point, we would likely just have him come back and see me hopefully in person in 4 months. We will repeat labs and also do a full physical exam at that time. I have also indicated to him again, unfortunately with Dr. Lomas's departure, if he has any concerns or questions with regards to the CLL or his primary care physician, Dr. Isabel, we will be happy to answer as best we can. phone only 8 minutes. Not available 09/13/2019 08:18:57 01/16/2020 01/16/2020 This is a 70-year-old male with CLL, trisomy 12 positive disease, now status post previously Rituxan only with a short duration and then bendamustine and Rituxan, last dose in April 2018. He has required nothing further. He has no real symptomatic lymphadenopathy today. His labs are good and clinically, he is doing well. He does have a prior history of multiple exposures. He was in [place] and [place] [facility]. Aside from that, at this point, he is doing well. I do not have any specific new further plans. We will space him out to 6 months. He will come back and repeat labs and exam. If there are any specific questions about adenopathy, I am going to have a very low threshold to reimage him. [email or web address] Not available 01/16/2020 22:34:13 07/16/2020 07/16/2020 This is a 70-year-old male with a history of CLL/SLL, kind of on a watch and wait approach for some time, eventually was treated with bendamustine, Rituxan with a great response. At this point, he has no evidence of any recurrent disease. We will continue to see him back in 6 months and repeat labs and exam at that time. Additionally, should he have any symptoms concerning for lymphadenopathy, we would have a low threshold to reimage him. [email or web address] Not available 07/17/2020 12:22:47 01/08/2021 01/08/2021 This is a 71-year-old male with many year history of CLL/SLL treated most recently with bendamustine and Rituxan, probably more than 3 years ago. No evidence of any recurrence or progression at this point in time. We will continue his 6 months' followup though because he has been multiply treated. All this discussed with the patient. Additionally, he has skin abnormalities on his left cheek and I have advised that he return to his rounder hand to evaluate this. [email or web address] Not available 01/08/2021 15:07:49 Plan of Treatment Reminders Order Date Submit Date Provider Last Modified By Organization Details Last Modified Time Details Appointments None record ed. Lab None record ed. Referral None record ed. Procedures None record ed. Surgeries None record ed. Imaging None record ed. Medication Orders None record ed. Patient TargetsNo targets recorded. Patient Instructions Encounter Date Encounter Id Patient Instructions Last Modified By Organization Details Last Modified Time 09/12/2019 [id number] chronic lymphocytic leukemia: care instructions Not available 09/13/2019 08:18:59 01/16/2020 [id number] chronic lymphocytic leukemia: care instructions Not available 01/16/2020 12:54:51 07/16/2020 [id number] chronic lymphocytic leukemia: care instructions Not available 07/18/2020 08:16:14 Reason for Referral None Reported. Results Created Date Observation Date Name Description Value Unit Range Abnormal Flag Note LastModifiedBy Organization Detail LastModifiedTime 03/13/2003/13/2019 CBC w/ auto diff white blood cells 5.3 K/uL 3.8-10 .8 normal Not Available [facility] [address] [place], [address], 03/13/2019 08:52:02 03/13/2003/13/2019 CBC w/ auto diff red blood cells 5.35 M/uL 4.20-5 .80 normal Not Available [facility] [address] [place] [address], [address], 03/13/2019 08:52:02 03/13/2003/13/2019 CBC w/ auto diff hemoglobin 15.6 g/dL 14.0-1 8.0 normal Not Available [facility] [address] [place], [address], 03/13/2019 08:52:02 03/13/2003/13/2019 CBC w/ auto diff hematocrit 45.3 % 40.0-5 2.0 normal Not Available [facility] [address] [place], [address], 03/13/2019 08:52:02 03/13/20 19 03/13/2019 CBC w/ auto diff MCV 85 fL 80-100 normal Not Available [facility] [address] [place] [address], [address], 03/13/2019 08:52:02 03/13/20 19 03/13/2019 CBC w/ auto diff MCH 29 pg 26-35 normal Not Available [facility] [address] [place] [address], [address], 03/13/2019 08:52:02 03/13/2003/13/2019 CBC w/ auto diff MCHC 35 g/dL 32-36 normal Not Available [facility] [address] [place] [address], [address], 03/13/2019 08:52:02 03/13/2003/13/2019 CBC w/ auto diff RDW 13.7 % 11.0-1 5.0 normal Not Available [facility] [address] [place] [address], [address], 03/13/2019 08:52:02 03/13/2003/13/2019 CBC w/ auto diff MPV 7.3 fL 6.2-10 .5 normal Not Available [facility] [address] [place] [address], [address], 03/13/2019 08:52:02 03/13/2003/13/2019 CBC w/ auto diff platelet count 176 K/uL 130-40 0 normal Not Available [facility] [address] [place] [address], [address], 03/13/2019 08:52:02 03/13/2003/13/2019 CBC w/ auto diff neutrophil,a bsolute 3.2 K/uL 1.6-8. 4 normal Not Available [facility] [address] [place] [address], [address], 03/13/2019 08:52:02 03/13/2003/13/2019 CBC w/ auto diff lymphocyte,a bsolute 1.6 K/uL 0.4-5. 1 normal Not Available [facility] [address] [place] [address], [address], 03/13/2019 08:52:02 03/13/2003/13/2019 CBC w/ auto diff monocyte,abs olute 0.4 K/uL 0.0-1. 2 normal Not Available [facility] [address] [place] [address], [address], 03/13/2019 08:52:02 03/13/2003/13/2019 CBC w/ auto diff eosinophil,a bsolute 0.2 K/uL 0.0-0. 8 normal Not Available [facility] [address] [place] [address], [address], 03/13/2019 08:52:02 03/13/2003/13/2019 CBC w/ auto diff basophil,abs olute 0.1 K/uL 0.0-0. 3 normal Not Available [facility] [address] [place] [address], [address], 03/13/2019 08:52:02 03/13/2003/13/2019 CBC w/ auto diff % neutrophils 60.0 % 42.0-7 8.0 normal Not Available [facility] [address] [place] [address], [address], 03/13/2019 08:52:02 03/13/2003/13/2019 CBC w/ auto diff % lymphocytes 29.4 % 11.0-4 7.0 normal Not Available [facility] [address] [place] [address], [address], 03/13/2019 08:52:02 03/13/2003/13/2019 CBC w/ auto diff % monocytes 6.7 % 0.0-11 .0 normal Not Available [facility] [address] [place] [address], [address], 03/13/2019 08:52:02 03/13/2003/13/2019 CBC w/ auto diff % eosinophils 2.9 % 0.0-7. 0 normal Not Available [facility] [address] [place] [address], [address], 03/13/2019 08:52:02 03/13/2003/13/2019 CBC w/ auto diff % basophils 1.0 % 0.0-3. 0 normal Not Available [facility] [address] [place] [address], [address], 03/13/2019 08:52:02 03/13/2003/13/2019 CBC w/ auto diff nucleated red cells 0.1 % 0.0-0. 9 normal Not Available [facility] [address] [place] [address], [address], 03/13/2019 08:52:02 03/13/2003/13/2019 CBC w/ auto diff nucleated RBCs, absolute 0.00 K/uL not estab. normal Not Available [facility] [address] [place] [address], [address], 03/13/2019 08:52:02 03/13/2003/13/2019 CMP, serum or plasm a glucose 101 mg/dL 74-100 high Not Available [facility] [address] [place] [address], [address], 03/13/2019 09:19:28 03/13/2003/13/2019 CMP, serum or plasm a blood urea nitrogen 19 mg/dL 6-20 normal Not Available [facility] [address] [place] [address], [address], 03/13/2019 09:19:28 03/13/2003/13/2019 CMP, serum or plasm a creatinine 0.95 mg/dL 0.70-1 .25 normal Not Available [facility] [address] [place] [address], [address], 03/13/2019 09:19:28 03/13/20 03/13/2019 CMP, serum or plasm a BUN/creatini ne ratio 20 (calc ) 10-20 normal Not Available [facility] [address] [place] [address], [address], 03/13/2019 09:19:28 03/13/2003/13/2019 CMP, serum or plasm a sodium 141 mmol/ L 136-14 5 normal Not Available [facility] [address] [place] [address], [address], 03/13/2019 09:19:28 03/13/2003/13/2019 CMP, serum or plasm a potassium 4.6 mmol/ L 3.4-5. 0 normal Not Available [facility] [address] [place] [address], [address], 03/13/2019 09:19:28 03/13/2003/13/2019 CMP, serum or plasm a chloride 102 mmol/ L 98-107 normal Not Available [facility] [address] [place] [address], [address], 03/13/2019 09:19:28 03/13/2003/13/2019 CMP, serum or plasm a carbon dioxide 29 mmol/ L 20-32 normal Not Available [facility] [address] [place] [address], [address], 03/13/2019 09:19:28 03/13/2003/13/2019 CMP, serum or plasm a anion gap 10 (calc ) 7-25 normal Not Available [facility] [address] [place] [address], [address], 03/13/2019 09:19:28 03/13/2003/13/2019 CMP, serum or plasm a calcium 9.6 mg/dL 8.6-10 .2 normal Not Available [facility] [address] [place] [address], [address], 03/13/2019 09:19:28 03/13/2003/13/2019 CMP, serum or plasm a total protein 7.0 g/dL 6.4-8. 3 normal Not Available [facility] [address] [place] [address], [address], 03/13/2019 09:19:28 03/13/2003/13/2019 CMP, serum or plasm a albumin 4.9 g/dL 3.5-5. 2 normal Not Available [facility] [address] [place] [address], [address], 03/13/2019 09:19:28 03/13/2003/13/2019 CMP, serum or plasm a globulin 2.1 g/dL_ (calc ) 1.5-4. 5 normal Not Available [facility] [address] [place] [address], [address], 03/13/2019 09:19:28 03/13/2003/13/2019 CMP, serum or plasm a albumin/glob ulin ratio 2.3 (calc ) 1.1-2. 5 normal Not Available [facility] [address] [place] [address], [address], 03/13/2019 09:19:28 03/13/2003/13/2019 CMP, serum or plasm a bilirubin, total 0.5 mg/dL 0.1-1. 2 normal Not Available [facility] [address] [place] [address], [address], 03/13/2019 09:19:28 03/13/2003/13/2019 CMP, serum or plasm a alkaline phosphatase 97 U/L 40-130 normal Not Available [facility] [address] [place], [address], 03/13/2019 09:19:28 03/13/2003/13/2019 CMP, serum or plasm a AST 24 U/L 0-40 normal Not Available [facility] [address] [place] [address], [address], 03/13/2019 09:19:28 03/13/20 19 03/13/2019 CMP, serum or plasm a ALT 21 U/L 0-41 normal Not Available [facility] [address] [place] [address], [address], 03/13/2019 09:19:28 03/13/20 19 03/13/2019 CMP, serum or plasm a GFR 93 >= 60 normal Not Available [facility] [address] [place], [address], 03/13/2019 09:19:28 03/13/2003/13/2019 CMP, serum or plasm a GFR non- 80 >= 60 normal NOT E NEW calcu latio n for GFR is based on the Natio nal Kidne y Found ation CKD-E PI equat ion and allow s for repor ting GFR value s great er than 60 mL/mi n/1.7 3 m2. This calcu latio n has not been valid ated for patie nts less than 18 yrs., pregn ant women and Hispa nics. Chron ic kidne y disea se is defin ed as kidne y damag e or GFR less than 60 mL/mi n/1.7 3 m2 for 3 month s or longe r. Not Available [facility] [address] [place] [address], [address], 03/13/2019 09:19:28 09/10/1909/10/2019 CBC w/ auto diff white blood cells 6.1 K/uL 3.8-10 .8 normal Not Available [facility] [address] [place] [address], [address], 09/10/2019 08:48:31 09/10/1909/10/2019 CBC w/ auto diff red blood cells 5.28 M/uL 4.20-5 .80 normal Not Available [facility] [address] [place] [address], [address], 09/10/2019 08:48:31 09/10/1909/10/2019 CBC w/ auto diff hemoglobin 15.3 g/dL 14.0-1 8.0 normal Not Available [facility] [address] [place] [address], [address], 09/10/2019 08:48:31 09/10/19 20 09/10/2019 CBC w/ auto diff hematocrit 43.8 % 40.0-5 2.0 normal Not Available [facility] [address] [place] [address], [address], 09/10/2019 08:48:31 09/10/19 20 09/10/2019 CBC w/ auto diff MCV 83 fL 80-100 normal Not Available [facility] [address] [place] [address], [address], 09/10/2019 08:48:31 09/10/1909/10/2019 CBC w/ auto diff MCH 29 pg 26-35 normal Not Available [facility] [address] [place] [address], [address], 09/10/2019 08:48:31 09/10/19 20 09/10/2019 CBC w/ auto diff MCHC 35 g/dL 32-36 normal Not Available [facility] [address] [place] [address], [address], 09/10/2019 08:48:31 09/10/19 20 09/10/2019 CBC w/ auto diff RDW 14.0 % 11.0-1 5.0 normal Not Available [facility] [address] [place] [address], [address], 09/10/2019 08:48:31 09/10/1909/10/2019 CBC w/ auto diff MPV 7.2 fL 6.2-10 .5 normal Not Available [facility] [address] [place] [address], [address], 09/10/2019 08:48:31 09/10/19 20 09/10/2019 CBC w/ auto diff platelet count 154 K/uL 130-40 0 normal Not Available [facility] [address] [place] [address], [address], 09/10/2019 08:48:31 09/10/1909/10/2019 CBC w/ auto diff neutrophil,a bsolute 2.8 K/uL 1.6-8. 4 normal Not Available [facility] [address] [place] [address], [address], 09/10/2019 08:48:31 09/10/1909/10/2019 CBC w/ auto diff lymphocyte,a bsolute 2.6 K/uL 0.4-5. 1 normal Not Available [facility] [address] [place] [address], [address], 09/10/2019 08:48:31 09/10/1909/10/2019 CBC w/ auto diff monocyte,abs olute 0.5 K/uL 0.0-1. 2 normal Not Available [facility] [address] [place] [address], [address], 09/10/2019 08:48:31 09/10/1909/10/2019 CBC w/ auto diff eosinophil,a bsolute 0.2 K/uL 0.0-0. 8 normal Not Available [facility] [address] [place] [address], [address], 09/10/2019 08:48:31 09/10/1909/10/2019 CBC w/ auto diff basophil,abs olute 0.0 K/uL 0.0-0. 3 normal Not Available [facility] [address] [place] [address], [address], 09/10/2019 08:48:31 09/10/1909/10/2019 CBC w/ auto diff % neutrophils 45.9 % 42.0-7 8.0 normal Not Available [facility] [address] [place] [address], [address], 09/10/2019 08:48:31 09/10/1909/10/2019 CBC w/ auto diff % lymphocytes 42.9 % 11.0-4 7.0 normal Not Available [facility] [address] [place] [address], [address], 09/10/2019 08:48:31 09/10/1909/10/2019 CBC w/ auto diff % monocytes 7.6 % 0.0-11 .0 normal Not Available [facility] [address] [place] [address], [address], 09/10/2019 08:48:31 09/10/1909/10/2019 CBC w/ auto diff % eosinophils 3.0 % 0.0-7. 0 normal Not Available [facility] [address] [place] [address], [address], 09/10/2019 08:48:31 09/10/1909/10/2019 CBC w/ auto diff % basophils 0.6 % 0.0-3. 0 normal Not Available [facility] [address] [place] [address], [address], 09/10/2019 08:48:31 09/10/1909/10/2019 CBC w/ auto diff nucleated red cells 0.2 % 0.0-0. 9 normal Not Available [facility] [address] [place] [address], [address], 09/10/2019 08:48:31 09/10/1909/10/2019 CBC w/ auto diff nucleated RBCs, absolute 0.01 K/uL not estab. normal Not Available [facility] [address] [place] [address], [address], 09/10/2019 08:48:31 09/10/1909/10/2019 CMP, serum or plasm a glucose 106 mg/dL 74-100 high Not Available [facility] [address] [place] [address], [address], 09/10/2019 09:47:35 09/10/1909/10/2019 CMP, serum or plasm a blood urea nitrogen 17 mg/dL 6-20 normal Not Available [facility] [address] [place] [address], [address], 09/10/2019 09:47:35 09/10/19 20 09/10/2019 CMP, serum or plasm a creatinine 1.01 mg/dL 0.70-1 .25 normal Not Available [facility] [address] [place] [address], [address], 09/10/2019 09:47:35 09/10/19 20 09/10/2019 CMP, serum or plasm a BUN/creatini ne ratio 17 (calc ) 10-20 normal Not Available [facility] [address] [place] [address], [address], 09/10/2019 09:47:35 09/10/19 20 09/10/2019 CMP, serum or plasm a sodium 140 mmol/ L 136-14 5 normal Not Available [facility] [address] [place] [address], [address], 09/10/2019 09:47:35 09/10/19 20 09/10/2019 CMP, serum or plasm a potassium 4.3 mmol/ L 3.4-5. 0 normal Not Available [facility] [address] [place] [address], [address], 09/10/2019 09:47:35 09/10/19 20 09/10/2019 CMP, serum or plasm a chloride 101 mmol/ L 98-107 normal Not Available [facility] [address] [place] [address], [address], 09/10/2019 09:47:35 09/10/19 20 09/10/2019 CMP, serum or plasm a carbon dioxide 29 mmol/ L 20-32 normal Not Available [facility] [address] [place] [address], [address], 09/10/2019 09:47:35 09/10/19 20 09/10/2019 CMP, serum or plasm a anion gap 10 (calc ) 7-25 normal Not Available [facility] [address] [place] [address], [address], 09/10/2019 09:47:35 09/10/1909/10/2019 CMP, serum or plasm a calcium 9.6 mg/dL 8.6-10 .2 normal Not Available [facility] [address] [place] [address], [address], 09/10/2019 09:47:35 09/10/19 20 09/10/2019 CMP, serum or plasm a total protein 6.8 g/dL 6.4-8. 3 normal Not Available [facility] [address] [place] [address], [address], 09/10/2019 09:47:35 09/10/1909/10/2019 CMP, serum or plasm a albumin 4.7 g/dL 3.5-5. 2 normal Not Available [facility] [address] [place] [address], [address], 09/10/2019 09:47:35 09/10/1909/10/2019 CMP, serum or plasm a globulin 2.1 g/dL_ (calc ) 1.5-4. 5 normal Not Available [facility] [address] [place] [address], [address], 09/10/2019 09:47:35 09/10/1909/10/2019 CMP, serum or plasm a albumin/glob ulin ratio 2.2 (calc ) 1.1-2. 5 normal Not Available [facility] [address] [place] [address], [address], 09/10/2019 09:47:35 09/10/1909/10/2019 CMP, serum or plasm a bilirubin, total 0.4 mg/dL 0.1-1. 2 normal Not Available [facility] [address] [place] [address], [address], 09/10/2019 09:47:35 09/10/1909/10/2019 CMP, serum or plasm a alkaline phosphatase 88 U/L 40-130 normal Not Available [facility] [address] [place], [address], 09/10/2019 09:47:35 09/10/19 20 09/10/2019 CMP, serum or plasm a AST 21 U/L 0-40 normal Not Available [facility] [address] [place] [address], [address], 09/10/2019 09:47:35 09/10/19 20 09/10/2019 CMP, serum or plasm a ALT 18 U/L 0-41 normal Not Available [facility] [address] [place] [address], [address], 09/10/2019 09:47:35 09/10/19 20 09/10/2019 CMP, serum or plasm a GFR 86 >= 60 normal Not Available [facility] [address] [place], [address], 09/10/2019 09:47:35 09/10/1909/10/2019 CMP, serum or plasm a GFR non- 74 >= 60 normal NOT E NEW calcu latio n for GFR is based on the Natio nal Kidne y Found ation CKD-E PI equat ion and allow s for repor ting GFR value s great er than 60 mL/mi n/1.7 3 m2. This calcu latio n has not been valid ated for patie nts less than 18 yrs., pregn ant women and Hispa nics. Chron ic kidne y disea se is defin ed as kidne y damag e or GFR less than 60 mL/mi n/1.7 3 m2 for 3 month s or longe r. Not Available [facility] [address] [place] [address], [address], 09/10/2019 09:47:35 01/16/20 20 01/16/2020 CBC w/ auto diff white blood cells 5.4 K/uL 3.8-10 .8 normal Not Available [facility] [address] [place] [address], [address], 01/16/2020 10:56:02 01/16/20 20 01/16/2020 CBC w/ auto diff red blood cells 5.14 M/uL 4.20-5 .80 normal Not Available [facility] [address] [place] [address], [address], 01/16/2020 10:56:02 01/16/20 20 01/16/2020 CBC w/ auto diff hemoglobin 14.9 g/dL 14.0-1 8.0 normal Not Available [facility] [facility] [address] [place] [address], [address], 01/16/2020 10:56:02 01/16/20 20 01/16/2020 CBC w/ auto diff hematocrit 42.9 % 40.0-5 2.0 normal Not Available [facility] [address] [place] [address], [address], 01/16/2020 10:56:02 01/16/20 20 01/16/2020 CBC w/ auto diff MCV 83 fL 80-100 normal Not Available [facility] [address] [place] [address], [address], 01/16/2020 10:56:02 01/16/2001/16/2020 CBC w/ auto diff MCH 29 pg 26-35 normal Not Available [facility] [address] [place] [address], [address], 01/16/2020 10:56:02 01/16/2001/16/2020 CBC w/ auto diff MCHC 35 g/dL 32-36 normal Not Available [facility] [address] [place] [address], [address], 01/16/2020 10:56:02 01/16/2001/16/2020 CBC w/ auto diff RDW 13.6 % 11.0-1 5.0 normal Not Available [facility] [address] [place] [address], [address], 01/16/2020 10:56:02 01/16/20 20 01/16/2020 CBC w/ auto diff MPV 6.9 fL 6.2-10 .5 normal Not Available [facility] [address] [place] [address], [address], 01/16/2020 10:56:02 01/16/20 20 01/16/2020 CBC w/ auto diff platelet count 140 K/uL 130-40 0 normal Not Available [facility] [address] [place] [address], [address], 01/16/2020 10:56:02 01/16/20 20 01/16/2020 CBC w/ auto diff neutrophil,a bsolute 2.2 K/uL 1.6-8. 4 normal Not Available [facility] [address] [place] [address], [address], 01/16/2020 10:56:02 01/16/20 20 01/16/2020 CBC w/ auto diff lymphocyte,a bsolute 2.6 K/uL 0.4-5. 1 normal Not Available [facility] [address] [place] [address], [address], 01/16/2020 10:56:02 01/16/20 20 01/16/2020 CBC w/ auto diff monocyte,abs olute 0.4 K/uL 0.0-1. 2 normal Not Available [facility] [address] [place] [address], [address], 01/16/2020 10:56:02 01/16/20 20 01/16/2020 CBC w/ auto diff eosinophil,a bsolute 0.2 K/uL 0.0-0. 8 normal Not Available [facility] [address] [place] [address], [address], 01/16/2020 10:56:02 01/16/20 20 01/16/2020 CBC w/ auto diff basophil,abs olute 0.1 K/uL 0.0-0. 3 normal Not Available [facility] [address] [place] [address], [address], 01/16/2020 10:56:02 01/16/20 20 01/16/2020 CBC w/ auto diff % neutrophils 39.8 % 42.0-7 8.0 low Not Available [facility] [address] [place] [address], [address], 01/16/2020 10:56:02 01/16/20 20 01/16/2020 CBC w/ auto diff % lymphocytes 47.9 % 11.0-4 7.0 high Not Available [facility] [address] [place] [address], [address], 01/16/2020 10:56:02 01/16/2001/16/2020 CBC w/ auto diff % monocytes 7.9 % 0.0-11 .0 normal Not Available [facility] [address] [place] [address], [address], 01/16/2020 10:56:02 01/16/20 20 01/16/2020 CBC w/ auto diff % eosinophils 3.4 % 0.0-7. 0 normal Not Available [facility] [address] [place] [address], [address], 01/16/2020 10:56:02 01/16/2001/16/2020 CBC w/ auto diff % basophils 1.0 % 0.0-3. 0 normal Not Available [facility] [address] [place] [address], [address], 01/16/2020 10:56:02 01/16/2001/16/2020 CBC w/ auto diff nucleated red cells 0.5 % 0.0-0. 9 normal Not Available [facility] [address] [place] [address], [address], 01/16/2020 10:56:02 01/16/2001/16/2020 CBC w/ auto diff nucleated RBCs, absolute 0.03 K/uL not estab. normal Not Available [facility] [address] [place] [address], [address], 01/16/2020 10:56:02 01/16/2001/16/2020 CMP, serum or plasm a glucose 89 mg/dL 74-100 normal Not Available [facility] [address] [place] [address], [address], 01/16/2020 11:27:47 01/16/20 20 01/16/2020 CMP, serum or plasm a blood urea nitrogen 17 mg/dL 6-20 normal Not Available [facility] [address] [place] [address], [address], 01/16/2020 11:27:47 01/16/20 20 01/16/2020 CMP, serum or plasm a creatinine 0.98 mg/dL 0.70-1 .25 normal Not Available [facility] [address] [place] [address], [address], 01/16/2020 11:27:47 01/16/20 20 01/16/2020 CMP, serum or plasm a BUN/creatini ne ratio 17 (calc ) 10-20 normal Not Available [facility] [address] [place] [address], [address], 01/16/2020 11:27:47 01/16/20 20 01/16/2020 CMP, serum or plasm a sodium 139 mmol/ L 136-14 5 normal Not Available [facility] [address] [place] [address], [address], 01/16/2020 11:27:47 01/16/20 20 01/16/2020 CMP, serum or plasm a potassium 4.2 mmol/ L 3.4-5. 0 normal Not Available [facility] [address] [place] [address], [address], 01/16/2020 11:27:47 01/16/20 20 01/16/2020 CMP, serum or plasm a chloride 102 mmol/ L 98-107 normal Not Available [facility] [address] [place] [address], [address], 01/16/2020 11:27:47 01/16/20 20 01/16/2020 CMP, serum or plasm a carbon dioxide 29 mmol/ L 20-32 normal Not Available [facility] [address] [place] [address], [address], 01/16/2020 11:27:47 01/16/20 20 01/16/2020 CMP, serum or plasm a anion gap 8 (calc ) 7-25 normal Not Available [facility] [address] [place] [address], [address], 01/16/2020 11:27:47 01/16/2001/16/2020 CMP, serum or plasm a calcium 9.6 mg/dL 8.6-10 .2 normal Not Available [facility] [address] [place] [address], [address], 01/16/2020 11:27:47 01/16/20 20 01/16/2020 CMP, serum or plasm a total protein 7.1 g/dL 6.4-8. 3 normal Not Available [facility] [address] [place] [address], [address], 01/16/2020 11:27:47 01/16/20 20 01/16/2020 CMP, serum or plasm a albumin 4.8 g/dL 3.5-5. 2 normal Not Available [facility] [address] [place] [address], [address], 01/16/2020 11:27:47 01/16/2001/16/2020 CMP, serum or plasm a globulin 2.3 g/dL_ (calc ) 1.5-4. 5 normal Not Available [facility] [address] [place] [address], [address], 01/16/2020 11:27:47 01/16/20 20 01/16/2020 CMP, serum or plasm a albumin/glob ulin ratio 2.1 (calc ) 1.1-2. 5 normal Not Available [facility] [address] [place] [address], [address], 01/16/2020 11:27:47 01/16/2001/16/2020 CMP, serum or plasm a bilirubin, total 0.5 mg/dL 0.1-1. 2 normal Not Available [facility] [address] [place] [address], [address], 01/16/2020 11:27:47 01/16/2001/16/2020 CMP, serum or plasm a alkaline phosphatase 76 U/L 40-130 normal Not Available [facility] [address] [place] [address], [address], 01/16/2020 11:27:47 01/16/2001/16/2020 CMP, serum or plasm a AST 24 U/L 0-40 normal Not Available [facility] [address] [place] [address], [address], 01/16/2020 11:27:47 01/16/2001/16/2020 CMP, serum or plasm a ALT 19 U/L 0-41 normal Not Available [facility] [address] [place] [address], [address], 01/16/2020 11:27:47 01/16/2001/16/2020 CMP, serum or plasm a GFR 89 >= 60 normal Not Available [facility] [address] [place] [address], [address], 01/16/2020 11:27:47 01/16/2001/16/2020 CMP, serum or plasm a GFR non- 77 >= 60 normal NOT E NEW calcu latio n for GFR is based on the [facility] PI equat ion and allow s for repor ting GFR value s great er than 60 mL/mi n/1.7 3 m2. This calcu latio n has not been valid ated for patie nts less than 18 yrs., pregn ant women and Hispa nics. Chron ic kidne y disea se is defin ed as kidne y damag e or GFR less than 60 mL/mi n/1.7 3 m2 for 3 month s or longe r. Not Available [facility] [address] [place] [address], [address], 01/16/2020 11:27:47 07/17/19 21 07/16/2020 CBC w/ auto diff white blood cells 6.4 K/uL 3.8-10 .8 normal Not Available [facility] [address] [place] [address], [address], 07/16/2020 10:05:21 07/17/19 21 07/16/2020 CBC w/ auto diff red blood cells 5.17 M/uL 4.20-5 .80 normal Not Available [facility] [address] [place] [address], [address], 07/16/2020 10:05:21 07/17/19 21 07/16/2020 CBC w/ auto diff hemoglobin 14.9 g/dL 14.0-1 8.0 normal Not Available [facility] [address] [place] [address], [address], 07/16/2020 10:05:21 07/17/19 21 07/16/2020 CBC w/ auto diff hematocrit 43.8 % 40.0-5 2.0 normal Not Available [facility] [address] [place] [address], [address], 07/16/2020 10:05:21 07/17/19 21 07/16/2020 CBC w/ auto diff MCV 85 fL 80-100 normal Not Available [facility] [address] [place] [address], [address], 07/16/2020 10:05:21 07/17/19 21 07/16/2020 CBC w/ auto diff MCH 29 pg 26-35 normal Not Available [facility] [address] [place] [address], [address], 07/16/2020 10:05:21 07/17/19 21 07/16/2020 CBC w/ auto diff MCHC 34 g/dL 32-36 normal Not Available [facility] [address] [place] [address], [address], 07/16/2020 10:05:21 07/17/19 21 07/16/2020 CBC w/ auto diff RDW 13.3 % 11.0-1 5.0 normal Not Available [facility] [address] [place] [address], [address], 07/16/2020 10:05:21 07/17/19 21 07/16/2020 CBC w/ auto diff MPV 7.4 fL 6.2-10 .5 normal Not Available [facility] [address] [place] [address], [address], 07/16/2020 10:05:21 07/17/19 21 07/16/2020 CBC w/ auto diff platelet count 161 K/uL 130-40 0 normal Not Available [facility] [address] [place] [address], [address], 07/16/2020 10:05:21 07/17/19 21 07/16/2020 CBC w/ auto diff neutrophil,a bsolute 2.8 K/uL 1.6-8. 4 normal Not Available [facility] [address] [place] [address], [address], 07/16/2020 10:05:21 07/17/19 21 07/16/2020 CBC w/ auto diff lymphocyte,a bsolute 2.9 K/uL 0.4-5. 1 normal Not Available [facility] [address] [place] [address], [address], 07/16/2020 10:05:21 07/17/19 21 07/16/2020 CBC w/ auto diff monocyte,abs olute 0.5 K/uL 0.0-1. 2 normal Not Available [facility] [address] [place] [address], [address], 07/16/2020 10:05:21 07/17/19 21 07/16/2020 CBC w/ auto diff eosinophil,a bsolute 0.2 K/uL 0.0-0. 8 normal Not Available [facility] [address] [place] [address], [address], 07/16/2020 10:05:21 07/17/19 21 07/16/2020 CBC w/ auto diff basophil,abs olute 0.1 K/uL 0.0-0. 3 normal Not Available [facility] [address] [place] [address], [address], 07/16/2020 10:05:21 07/17/19 21 07/16/2020 CBC w/ auto diff % neutrophils 44.2 % 42.0-7 8.0 normal Not Available [facility] [address] [place] [address], [address], 07/16/2020 10:05:21 07/17/19 21 07/16/2020 CBC w/ auto diff % lymphocytes 45.2 % 11.0-4 7.0 normal Not Available [facility] [address] [place] [address], [address], 07/16/2020 10:05:21 07/17/19 21 07/16/2020 CBC w/ auto diff % monocytes 7.4 % 0.0-11 .0 normal Not Available [facility] [address] [place] [address], [address], 07/16/2020 10:05:21 07/17/19 21 07/16/2020 CBC w/ auto diff % eosinophils 2.4 % 0.0-7. 0 normal Not Available [facility] [address] [place] [address], [address], 07/16/2020 10:05:21 07/17/19 21 07/16/2020 CBC w/ auto diff % basophils 0.8 % 0.0-3. 0 normal Not Available [facility] [address] [place] [address], [address], 07/16/2020 10:05:21 07/17/19 21 07/16/2020 CBC w/ auto diff nucleated red cells 0.2 % 0.0-0. 9 normal Not Available [facility] [address] [place] [address], [address], 07/16/2020 10:05:21 07/17/19 21 07/16/2020 CBC w/ auto diff nucleated RBCs, absolute 0.01 K/uL not estab. normal Not Available [facility] [address] [place] [address], [address], 07/16/2020 10:05:21 07/17/19 21 07/16/2020 CMP, serum or plasm a glucose 78 mg/dL 74-100 normal Not Available [facility] [address] [place] [address], [address], 07/16/2020 10:33:47 07/17/19 21 07/16/2020 CMP, serum or plasm a blood urea nitrogen 19 mg/dL 6-20 normal Not Available [facility] [address] [place] [address], [address], 07/16/2020 10:33:47 07/17/19 21 07/16/2020 CMP, serum or plasm a creatinine 0.93 mg/dL 0.70-1 .25 normal Not Available [facility] [address] [place] [address], [address], 07/16/2020 10:33:47 07/17/19 21 07/16/2020 CMP, serum or plasm a BUN/creatini ne ratio 20 (calc ) 10-20 normal Not Available [facility] [address] [place] [address], [address], 07/16/2020 10:33:47 07/17/19 21 07/16/2020 CMP, serum or plasm a sodium 138 mmol/ L 136-14 5 normal Not Available [facility] [address] [place] [address], [address], 07/16/2020 10:33:47 07/17/19 21 07/16/2020 CMP, serum or plasm a potassium 4.4 mmol/ L 3.4-5. 0 normal Not Available [facility] [address] [place] [address], [address], 07/16/2020 10:33:47 07/17/19 21 07/16/2020 CMP, serum or plasm a chloride 102 mmol/ L 98-107 normal Not Available [facility] [address] [place] [address], [address], 07/16/2020 10:33:47 07/17/19 21 07/16/2020 CMP, serum or plasm a carbon dioxide 28 mmol/ L 20-32 normal Not Available [facility] [address] [place] [address], [address], 07/16/2020 10:33:47 07/17/19 21 07/16/2020 CMP, serum or plasm a anion gap 8 (calc ) 7-25 normal Not Available [facility] [address] [place] [address], [address], 07/16/2020 10:33:47 07/17/19 21 07/16/2020 CMP, serum or plasm a calcium 9.3 mg/dL 8.6-10 .2 normal Not Available [facility] [address] [place] [address], [address], 07/16/2020 10:33:47 07/17/19 21 07/16/2020 CMP, serum or plasm a total protein 6.9 g/dL 6.4-8. 3 normal Not Available [facility] [address] [place] [address], [address], 07/16/2020 10:33:47 07/17/19 21 07/16/2020 CMP, serum or plasm a albumin 4.7 g/dL 3.5-5. 2 normal Not Available [facility] [address] [place] [address], [address], 07/16/2020 10:33:47 07/17/19 21 07/16/2020 CMP, serum or plasm a globulin 2.2 g/dL_ (calc ) 1.5-4. 5 normal Not Available [facility] [address] [place] [address], [address], 07/16/2020 10:33:47 07/17/19 21 07/16/2020 CMP, serum or plasm a albumin/glob ulin ratio 2.1 (calc ) 1.1-2. 5 normal Not Available [facility] [address] [place] [address], [address], 07/16/2020 10:33:47 07/17/19 21 07/16/2020 CMP, serum or plasm a bilirubin, total 0.4 mg/dL 0.1-1. 2 normal Not Available [facility] [address] [place] [address], [address], 07/16/2020 10:33:47 07/17/19 21 07/16/2020 CMP, serum or plasm a alkaline phosphatase 80 U/L 40-130 normal Not Available [facility] [address] [place] [address], [address], 07/16/2020 10:33:47 07/17/19 21 07/16/2020 CMP, serum or plasm a AST 23 U/L 0-40 normal Not Available [facility] [address] [place] [address], [address], 07/16/2020 10:33:47 07/17/19 21 07/16/2020 CMP, serum or plasm a ALT 19 U/L 0-41 normal Not Available [facility] [address] [place] [address], [address], 07/16/2020 10:33:47 07/17/19 21 07/16/2020 CMP, serum or plasm a GFR 94 >= 60 normal Not Available [facility] [address] [place] [address], [address], 07/16/2020 10:33:47 07/17/19 21 07/16/2020 CMP, serum or plasm a GFR non- 81 >= 60 normal NOT E NEW calcu latio n for GFR is based on the Natio nal Kidne y Found ation CKD-E PI equat ion and allow s for repor ting GFR value s great er than 60 mL/mi n/1.7 3 m2. This calcu latio n has not been valid ated for patie nts less than 18 yrs., pregn ant women and Hispa nics. Chron ic kidne y disea se is defin ed as kidne y damag e or GFR less than 60 mL/mi n/1.7 3 m2 for 3 month s or longe r. Not Available [facility] [address] [place] [address], [address], 07/16/2020 10:33:47 01/08/20 21 01/07/2021 COMPL ETE BLOOD COUNT white blood cells 6.9 K/uL 3.8-10 .8 normal Not Available [facility] [address] [place] [address], [address], 01/07/2021 10:52:17 01/08/20 21 01/07/2021 COMPL ETE BLOOD COUNT red blood cells 5.24 M/uL 4.20-5 .80 normal Not Available [facility] [address] [place] [address], [address], 01/07/2021 10:52:17 01/08/20 21 01/07/2021 COMPL ETE BLOOD COUNT hemoglobin 15.5 g/dL 14.0-1 8.0 normal Not Available [facility] [address] [place] [address], [address], 01/07/2021 10:52:17 01/08/20 21 01/07/2021 COMPL ETE BLOOD COUNT hematocrit 44.1 % 40.0-5 2.0 normal Not Available [facility] [address] [place] [address], [address], 01/07/2021 10:52:17 01/08/20 21 01/07/2021 COMPL ETE BLOOD COUNT MCV 84 fL 80-100 normal Not Available [facility] [address] [place] [address], [address], 01/07/2021 10:52:17 01/08/2001/07/2021 COMPL ETE BLOOD COUNT MCH 30 pg 26-35 normal Not Available [facility] [address] [place] [address], [address], 01/07/2021 10:52:17 01/08/20 21 01/07/2021 COMPL ETE BLOOD COUNT MCHC 35 g/dL 32-36 normal Not Available [facility] [address] [place] [address], [address], 01/07/2021 10:52:17 01/08/2001/07/2021 COMPL ETE BLOOD COUNT RDW 13.5 % 11.0-1 5.0 normal Not Available [facility] [address] [place] [address], [address], 01/07/2021 10:52:17 01/08/2001/07/2021 COMPL ETE BLOOD COUNT MPV 7.6 fL 6.2-10 .5 normal Not Available [facility] [address] [place] [address], [address], 01/07/2021 10:52:17 01/08/2001/07/2021 COMPL ETE BLOOD COUNT platelet count 162 K/uL 130-40 0 normal Not Available [facility] [address] [place] [address], [address], 01/07/2021 10:52:17 01/08/20 21 01/07/2021 COMPL ETE BLOOD COUNT neutrophil,a bsolute 3.0 K/uL 1.6-8. 4 normal Not Available [facility] [address] [place] [address], [address], 01/07/2021 10:52:17 01/08/20 21 01/07/2021 COMPL ETE BLOOD COUNT lymphocyte,a bsolute 3.2 K/uL 0.4-5. 1 normal Not Available [facility] [address] [place] [address], [address], 01/07/2021 10:52:17 01/08/2001/07/2021 COMPL ETE BLOOD COUNT monocyte,abs olute 0.4 K/uL 0.0-1. 2 normal Not Available [facility] [address] [place] [address], [address], 01/07/2021 10:52:17 01/08/20 21 01/07/2021 COMPL ETE BLOOD COUNT eosinophil,a bsolute 0.1 K/uL 0.0-0. 8 normal Not Available [facility] [address] [place] [address], [address], 01/07/2021 10:52:17 01/08/2001/07/2021 COMPL ETE BLOOD COUNT basophil,abs olute 0.0 K/uL 0.0-0. 3 normal Not Available [facility] [address] [place] [address], [address], 01/07/2021 10:52:17 01/08/2001/07/2021 COMPL ETE BLOOD COUNT % neutrophils 43.0 % 42.0-7 8.0 normal Not Available [facility] [address] [place] [address], [address], 01/07/2021 10:52:17 01/08/2001/07/2021 COMPL ETE BLOOD COUNT % lymphocytes 46.0 % 11.0-4 7.0 normal Not Available [facility] [address] [place] [address], [address], 01/07/2021 10:52:17 01/08/20 21 01/07/2021 COMPL ETE BLOOD COUNT % monocytes 6.0 % 0.0-11 .0 normal Not Available [facility] [address] [place] [address], [address], 01/07/2021 10:52:17 01/08/20 21 01/07/2021 COMPL ETE BLOOD COUNT % eosinophils 1.0 % 0.0-7. 0 normal Not Available [facility] [address] [place] [address], [address], 01/07/2021 10:52:17 01/08/2001/07/2021 COMPL ETE BLOOD COUNT % basophils 0.0 % 0.0-3. 0 normal Not Available [facility] [address] [place] [address], [address], 01/07/2021 10:52:17 01/08/2001/07/2021 COMPL ETE BLOOD COUNT nucleated red cells 0.2 % 0.0-0. 9 normal Not Available [facility] [address] [place] [address], [address], 01/07/2021 10:52:17 01/08/2001/07/2021 COMPL ETE BLOOD COUNT nucleated RBCs, absolute 0.01 K/uL not estab. normal Not Available [facility] [address] [place] [address], [address], 01/07/2021 10:52:17 01/08/2001/07/2021 GARY BURNS RENTI AL % band neutrophils 0.0 % 0.0-7. 0 normal Not Available [facility] [address] [place] [address], [address], 01/07/2021 10:52:22 01/08/20 21 01/07/2021 MANUA L DIFFE RENTI AL % atypical lymphocytes 4 % 0-1 high Not Available [facility] [address] [place] [address], [address], 01/07/2021 10:52:22 01/08/20 21 01/07/2021 MANUA L DIFFE RENTI AL % metamyelocyt es 0 % 0-1 normal Not Available [facility] [address] [place] [address], [address], 01/07/2021 10:52:22 01/08/20 21 01/07/2021 MANUA L DIFFE RENTI AL % myelocytes 0 % 0-1 normal Not Available [facility] [address] [place] [address], [address], 01/07/2021 10:52:22 01/08/20 21 01/07/2021 MANUA L DIFFE RENTI AL % promyelocyte s 0 % normal Not Available [facility] [address] [place] [address], [address], 01/07/2021 10:52:22 01/08/20 21 01/07/2021 MANUA L DIFFE RENTI AL % blast 0 % normal Not Available [facility] [address] [place] [address], [phone], 01/07/2021 10:52:22 01/08/20 21 01/07/2021 MANUA L DIFFE RENTI AL nucleated red cells 0 /100_ WBC normal Not Available [facility] [address] [place] [address], [phone], 01/07/2021 10:52:22 01/08/20 21 01/07/2021 MANUA L DIFFE RENTI AL smudge cells 0 normal Not Available [facility] [address] [place] [address], [phone], 01/07/2021 10:52:22 01/08/20 21 01/07/2021 MANUA L DIFFE RENTI AL platelet morphology NORMAL normal Not Available [facility] [address] [place] [address], [phone], 01/07/2021 10:52:22 01/08/20 21 01/07/2021 MANUA L DIFFE RENTI AL ovalocytes SLIGHT abnormal Not Available [facility] [address] [place] [address], [phone], 01/07/2021 10:52:22 01/08/20 21 01/07/2021 MANUA L DIFFE RENTI AL dacryocytes SLIGHT abnormal Not Available [facility] [address] [place] [address], [address], 01/07/2021 10:52:22 01/08/20 21 01/07/2021 COMP. METAB OLIC PANEL glucose 99 mg/dL 74-100 normal Not Available [facility] [address] [place] [address], [phone], 01/07/2021 11:18:56 01/08/20 21 01/07/2021 COMP. METAB OLIC PANEL blood urea nitrogen 16 mg/dL 6-20 normal Not Available [facility] [address] [place] [address], [address], 01/07/2021 11:18:56 01/08/20 21 01/07/2021 COMP. METAB OLIC PANEL creatinine 0.93 mg/dL 0.70-1 .28 normal Not Available [facility] [address] [place] [address], [address], 01/07/2021 11:18:56 01/08/20 21 01/07/2021 COMP. METAB OLIC PANEL BUN/creatini ne ratio 17 (calc ) 10-20 normal Not Available [facility] [address] [place] [address], [address], 01/07/2021 11:18:56 01/08/20 21 01/07/2021 COMP. METAB OLIC PANEL sodium 141 mmol/ L 136-14 5 normal Not Available [facility] [address] [place] [address], [address], 01/07/2021 11:18:56 01/08/20 21 01/07/2021 COMP. METAB OLIC PANEL potassium 4.2 mmol/ L 3.4-5. 0 normal Not Available [facility] [address] [place] [address], [address], 01/07/2021 11:18:56 01/08/20 21 01/07/2021 COMP. METAB OLIC PANEL chloride 102 mmol/ L 98-107 normal Not Available [facility] [address] [place] [address], [address], 01/07/2021 11:18:56 01/08/20 21 01/07/2021 COMP. METAB OLIC PANEL carbon dioxide 25 mmol/ L 22-31 normal Not Available [facility] [address] [place] [address], [address], 01/07/2021 11:18:56 01/08/20 21 01/07/2021 COMP. METAB OLIC PANEL anion gap 14 (calc ) 7-25 normal Not Available [facility] [address] [place] [address], [address], 01/07/2021 11:18:56 01/08/20 21 01/07/2021 COMP. METAB OLIC PANEL calcium 9.4 mg/dL 8.6-10 .2 normal Not Available [facility] [address] [place] [address], [address], 01/07/2021 11:18:56 01/08/20 21 01/07/2021 COMP. METAB OLIC PANEL total protein 7.0 g/dL 6.4-8. 3 normal Not Available [facility] [address] [place] [address], [address], 01/07/2021 11:18:56 01/08/20 21 01/07/2021 COMP. METAB OLIC PANEL albumin 4.8 g/dL 3.5-5. 2 normal Not Available [facility] [address] [place] [address], [address], 01/07/2021 11:18:56 01/08/20 21 01/07/2021 COMP. METAB OLIC PANEL globulin 2.2 g/dL_ (calc ) 1.5-4. 5 normal Not Available [facility] [address] [place] [address], [address], 01/07/2021 11:18:56 01/08/20 21 01/07/2021 COMP. METAB OLIC PANEL albumin/glob ulin ratio 2.2 (calc ) 1.1-2. 5 normal Not Available [facility] [address] [place] [address], [address], 01/07/2021 11:18:56 01/08/20 21 01/07/2021 COMP. METAB OLIC PANEL bilirubin, total 0.4 mg/dL 0.1-1. 2 normal Not Available [facility] [address] [place] [address], [address], 01/07/2021 11:18:56 01/08/20 21 01/07/2021 COMP. METAB OLIC PANEL alkaline phosphatase 85 U/L 40-129 normal Not Available [facility] [address] [place] [address], [address], 01/07/2021 11:18:56 01/08/20 21 01/07/2021 COMP. METAB OLIC PANEL AST 22 U/L 0-40 normal Not Available [facility] [address] [place] [address], [address], 01/07/2021 11:18:56 01/08/20 21 01/07/2021 COMP. METAB OLIC PANEL ALT 19 U/L 0-41 normal Not Available [facility] [address] [place] [address], [address], 01/07/2021 11:18:56 01/08/20 21 01/07/2021 COMP. METAB OLIC PANEL GFR 94 >= 60 normal Not Available [facility] [address] [place], [address], 01/07/2021 11:18:56 01/08/20 21 01/07/2021 COMP. METAB OLIC PANEL GFR non- 81 >= 60 normal NOT E Chron ic kidne y disea se is defin ed as kidne y damag e for more than 3 month s or a GFR less than 60 mL/mi n/1.7 3 m2 for great er than 3 month s. This calcu latio n has not been valid ated in pregn ant women . For pedia tric patie nts refer to [facility] https :[email or web address] [email or web address] [email or web address] rg/pr ofess ional s/KDO QI/gf r_cal culat orPed Not Available [facility] [address] [place], [address], 01/07/2021 11:18:56 Result Notes None recorded. Problems Name Problem SNOMED Code Status Onset Date Resolution Date Notes Provider Name and Address Organization Details Recorded Time B-cell chronic lymphocytic leukemia Active [address] [facility] 9 12:21:58 Problem Notes None recorded. Medical Equipment None Reported. Allergies Allergen ID Allergen Name Allergen Category Reaction Reaction Severity Criticality Documentation Date Start Date Code Code System Note Provider Name and Address Organization Details Recorded Time 603509 Iodex medicatio n Not available Not available Not available 12/05/2018 40480 RxNorm Masharoderick Paz [facility] 9 15:00:21 777642 Iodinated contrast media (substanc e) medicatio n Not available Not available Not available 12/05/2018 16852 2004 SNOMED Masha Paz [facility] 9 15:00:27 Medications Name Sig Start Date Stop Date Status Note LastModified by Organization Details LastModified Time Multi Vitamin daily active Not Available Not Available Not Available Vitals Date Recorded Body height Body mass index (BMI) Body weight Body temperature Pain severity - 0-10 verbal numeric rating [Score] - Reported Oxygen saturation Heart rate Systolic And Diastolic Provider Name and Address Organization Details Last Updated DateTime 1 167.64 cm 25.7 kg/m2 14385.9 4 g 97.7 [degF] 0 98 % 79 /min 166/77 mm[Hg] Masha [facility] 1 11:52:55 Date Recorded Body height Pain severity - 0-10 verbal numeric rating [Score] - Reported Systolic And Diastolic Provider Name and Address Organization Details Last Updated DateTime 09/12/2019 167.64 cm 0 129/67 mm[Hg] Masha [facility] 09/12/2019 13:46:12 Date Recorded Body height Body mass index (BMI) Body weight Pain severity - 0-10 verbal numeric rating [Score] - Reported Body temperature Heart rate Oxygen saturation Systolic And Diastolic Provider Name and Address Organization Details Last Updated DateTime 1 167.64 cm 26.2 kg/m2 97718.7 1 g 0 98.2 [degF] 75 /min 98 % 175/78 mm[Hg] Masha [facility] 1 10:26:30 Date Recorded Body height Body mass index (BMI) Body weight Heart rate Systolic And Diastolic Provider Name and Address Organization Details Last Updated DateTime 01/16/2020 167.64 cm 26 kg/m2 96515.42 g 83 /min 163/71 mm[Hg] Josette Ramírez [facility] 0 12:25:25 Date Recorded Body height Body mass index (BMI) Body weight Heart rate Oxygen saturation Body temperature Systolic And Diastolic Provider Name and Address Organization Details Last Updated DateTime 9 167.64 cm 26.7 kg/m2 96797.7 9 g 83 /min 98 % 98.7 [degF] 132/88 mm[Hg] Mirian Monterroso [facility] 9 09:13:57 Social History Question Answer Notes LastModified by Organizat ion Details LastModified Time Tobacco Smoking Status [email or web address]2018 12:25:51 How Much Tobacco Do You Chew? None Information not available 03/13/2019 In The 14 Days Before Symptom Onset, Have You Had Close Contact With A Laboratory-confirm ed COVID-19 While That Case Was Ill? No [email or web address] Information n ot available 09/12/2019 If Patient Spent Time In [facility] - Does The Patient Live In [facility]? No [email or web address] Information not available 09/12/2019 In The 14 Days Before Symptom Onset, Have You Had Close Contact With A Person Who Is Under Investigation For COVID-19 While That Person Was Ill? No [email or web address] Information not available 09/12/2019 In The 14 Days Before Symptom Onset, Did The Patient Spend Time In [facility]? No Information not available 09/12/2019 Have You Been To An Area Known To Be High Risk For COVID-19? No Information not available 09/12/2019 Live Alone Or With Others? With Others Information not available 09/12/2019 Education Level 2 Years College [email or web address] Information not available 09/12/2019 Exposure To Smoke No Informa tion not available 09/12/2019 Marital Status [email or web address] Informatio n not available 09/12/2019 What Was The Date Of Your Most Recent Tobacco Screening? 01/08/2021 [email or web address] Information not available 01/08/2021 How Much Tobacco Do You Smoke? 1 PPD Information not available 12/07/2018 Has Tobacco Cessation Counseling Been Provided? No [email or web address] Information not available 01/08/2021 How Many Years Have You Smoked Tobacco? 8 Information not available 12/07/2018 Sex: Unknown Functional Status Question Answer Note LastModified by Organizat ion Details LastModified Time Do you use any illicit or recreational drugs? No [email or web address] Information not available 01/08/2021 Do you or have you ever used any other forms of tobacco or nicotine? No Information not available 01/08/2021 Do you or have you ever used smokeless tobacco? Never used smokeless tobacco Information not available 12/07/2018 What is your occupation? retired [email or web address] Information not available 09/12/2019 Do you or have you ever used e-cigarettes or vape? Never used electronic cigarettes Information not available 03/13/2019 Mental Status None recorded. Family History Relationship Description Onset Age of this Age Resolved Age Notes LastModified by Organization Details LastModified Time Father No current problems or disability [email or web address] Not available 09/11 13:47:17 Mother No current problems or disability [email or web address] Not available 09/11 13:47:17 Medical History No medical history recorded. Immunizations Vaccine Type Date Status Note Provider Nam e and Address Organization Details Recorded Time Influenza, split virus, quadrivalent, preservative 8 completed Masha Paz [facility] 12/05/2018 15:00:51 Influenza, split virus, quadrivalent, preservative 0 completed Masha Paz [facility] 07/16/2020 11:51:14 COVID-19, mRNA, LNP-S, PF, 100 mcg/0.5mL dose or 50 mcg/0.25mL dose 1 completed Masha Paz [facility] 07/16/2020 11:51:28 COVID-19, mRNA, LNP-S, PF, 100 mcg/0.5mL dose or 50 mcg/0.25mL dose 1 completed Masha Paz [facility] 01/08/2021 10:24:46 Past Encounters Encounter ID Performer Location Encounter Start Date Encounter Closed Date Diagnosis/Indication Diagnosis SNOMED-CT Code Diagnosis ICD10 Code Diagnosis IMO Codes Diagnosis Note [id number] GISSEL LOMAS MD [facility] [address] [address] 06/17/2016 13:25:51 06/17/2016 13:54:58 [id number] GISSEL LOMAS MD [facility] [address] [address] 12/28/2016 09:55:42 12/28/2016 10:43:01 [id number] GISSEL LOMAS MD [facility] [address] [address] 06/28/2017 09:53:24 06/28/2017 10:48:33 [id number] GISSEL LOMAS MD [facility] [address] [place] [address] 07/04/2017 09:40:20 07/04/2017 11:04:53 [id number] GISSEL LOMAS MD [facility] [address] [place] [address] 07/04/2017 09:40:20 07/04/2017 11:04:54 [id number] GISSEL LOMAS MD [facility] [address] [place] [address] 07/11/2017 08:28:11 07/14/2017 08:58:22 [id number] GISSEL LOMAS MD [facility] [address] [place] [address] 07/18/2017 08:41:25 07/22/2017 09:43:11 [id number] GISSEL LOMAS MD [facility] [address] [place] [address] 07/25/2017 08:35:51 07/27/2017 10:50:34 [id number] GISSEL LOMAS MD [facility] [address] [place] [address] 08/05/2017 09:22:21 08/05/2017 11:25:00 [id number] GISSEL LOMAS MD [facility] [address] [place] [address] 09/02/2017 09:29:22 09/02/2017 10:08:32 [id number] GISSEL LOMAS MD [facility] [address] [place] [address] 11/07/2017 13:30:17 11/07/2017 14:23:06 [id number] FLORA DAO MD [facility] [address] [place] [address] 11/16/2017 08:04:28 11/17/2017 07:55:42 [id number] TRELL LORD MD [facility] [address] [place] [address] 11/17/2017 08:01:36 11/18/2017 07:15:55 [id number] GISSEL LOMAS MD [facility] [address] [place] [address] 11/28/2017 11:39:46 11/28/2017 12:48:34 [id number] GISSEL LOMAS MD [facility] [address] [place] [address] 12/05/2017 12:32:57 12/07/2017 12:37:24 [id number] GISSEL LOMAS MD [facility] [address] [place] [address] 12/19/2017 08:14:38 12/19/2017 09:29:30 [id number] GISSEL LOMAS MD [facility] [address] [place] [address] 12/19/2017 08:14:38 12/19/2017 09:29:30 [id number] GISSEL LOMAS MD [facility] [address] [place] [address] 12/20/2017 09:40:38 12/23/2017 15:54:44 [id number] GISSEL LOMAS MD [facility] [address] [place] [address] 01/16/2018 08:14:51 01/16/2018 09:35:21 [id number] GISSEL LOMAS MD [facility] [address] [place] [address] 01/16/2018 08:14:51 01/16/2018 09:35:22 [id number] GISSEL LOMAS MD [facility] CL[facility] [address] [place] [address] 01/17/2018 08:55:37 01/23/2018 12:56:45 [id number] MICHEL SANCHEZ MD ECHO [facility]ASCULAR LAB CLOSED [address] [facility] [place] [address] 01/24/2018 08:40:15 01/27/2018 16:14:59 [id number] GISSEL LOMAS MD [facility] [address] [facility] [place] [address] 02/13/2018 08:18:55 02/13/2018 09:34:18 [id number] GISSEL LOMAS MD [facility] [address] [facility] [place] [address] 02/13/2018 08:18:55 02/13/2018 09:34:19 [id number] GSISEL LOMAS MD [facility] CL[facility] [address] [place] [address] 02/14/2018 08:54:53 02/17/2018 11:05:33 [id number] FLORA DAO MD [facility] CL[facility]ED [address] [place] [address] 02/15/2018 15:20:52 02/20/2018 10:46:27 [id number] GISSEL LOMAS MD [facility] CL[facility] [address] [place] [address] 03/13/2018 08:11:20 03/13/2018 09:16:20 [id number] GISSEL LOMAS MD [facility] CL[facility] [address] [place] [address] 03/13/2018 08:11:20 03/13/2018 09:16:20 [id number] GISSEL LOMAS MD [facility] CL[facility]ED [address] [place] [address] 03/14/2018 08:43:13 03/17/2018 16:23:40 [id number] ANNABELLA DASILVA MD [facility] CL[facility] [address] [place] [address] 04/10/2018 08:15:30 04/10/2018 09:44:33 [id number] ANNABELLA DASILVA MD [facility] CL[facility]ED [address] [place] [address] 04/10/2018 08:15:30 04/10/2018 09:44:32 [id number] ANNABELLA DASILVA MD [facility] CLOSED [address] [place] [address] 04/11/2018 08:46:33 04/14/2018 13:04:06 [id number] GISSEL LOMAS MD [facility] CL[facility]ED [address] [place] [address] 05/23/2018 10:23:23 05/23/2018 12:03:32 [id number] GISSEL LOMAS MD [facility] CL[facility] [address] [place] [address] 05/23/2018 11:38:03 05/26/2018 10:15:49 [id number] GISESL LOMAS MD [facility] CL[facility]ED [address] [place] [address] 06/06/2018 11:26:21 06/06/2018 16:04:57 [id number] YANA CHARLES MD UROLOGY SB CLOSED [address] 1 06/09/2018 14:45:47 06/12/2018 07:09:58 [id number] YANA CHARLES MD SURGERY SCHEDULE [address] 1 06/28/2018 12:15:26 06/28/2018 12:16:23 [id number] GISSEL LOMAS MD [facility] CL[facility] [address] [place] [address] 07/18/2018 10:47:19 07/18/2018 12:01:03 [id number] GISSEL LOMAS MD [facility] CL[facility] [address] [place] [address] 09/07/2018 13:20:06 09/07/2018 14:37:08 [id number] GISSEL LOMAS MD HEM/[facility]C [facility] CLOSED [address] [place] [address] 12/07/2018 12:19:49 12/07/2018 13:32:59 [id number] GISSEL LOMAS MD HEM/[facility]C [facility] CLOSED [address] [place] [address] 03/13/2019 08:58:25 03/14/2019 15:18:01 B-cell chronic lymphocytic leukemia [id number] C91.10 [id number] TRELL LORD MD HEM/[facility] CLOSED [address] [place] [address] 09/12/2019 12:44:52 09/12/2019 14:24:59 B-cell chronic lymphocytic leukemia [id number] C91.10 [id number] TRELL LORD MD H[facility] CLOSED [address] [place] [address] 01/16/2020 11:52:20 01/16/2020 12:59:05 B-cell chronic lymphocytic leukemia [id number] C91.10 [id number] TRELL LORD MD HEM/[facility]C [facility] CLOSED [address] [place], [place] [address] 07/16/2020 10:42:31 07/16/2020 12:37:27 B-cell chronic lymphocytic leukemia [id number] C91.10 [id number] TRELL LORD MD HEM/[facility]C [facility] CLOSED [address] [place], [place] [id number] 1 01/08/2021 09:50:03 01/08/2021 10:42:03 B-cell chronic lymphocytic leukemia [id number] C91.10 Health Concerns Section Related Observation LastModified by Organization Detai ls LastModified Time None Recorded Concern Status LastModified by Organization Details LastModified Time None Recorded Advance Directives Directive None Recorded Payers Insurance Date Sequence Insurance Name Policy Number Policy Wen Covered Member ID Wen Member ID Guarantor Name 01/05/2021 1 [employer] (MEDICARE REPLACEMENT/A DVANTAGE - PPO) Corbin uH [id number] Corbin Hu Notes Date Note Type Note Provider Name and Address Organization Details Recorded Time 03/13/2019 text/html [place] HPIReported b y PatientVisit DetailsFor patient accompanied by, patient reportspatient accompanied by spouse. For advanced directives / biobank authorizations, patient reportsadvanced directives? yes. For discharge, patient reportsdischarge disposition stable.Distress ScreeningFor distress screening, patient reportsdistress level 0 no stress. For practical problems, patient reportsno practical problems. For family problems, patient reportsno family problems. For emotional problems, patient reportsno emotional problems. For spiritual/catholic, patient reportsspiritual/relig ious problems? no. For physical problems, patient reportsno physical problems.NutritionFor nutrition screening, patient reportsnutrition screening yes,nutrition counseling last 6 months? no, andnutrition protocol implemented? no. 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 He had single agent Rituxan with a moderate response that lasted for a few months and more recently received 6 cycles of Treanda/Rituxan finishing in April 2018. After his first cycle, he was hospitalized with neutropenia and pneumonia. He was given Neulasta beginning with the second cycle and did not require repeat hospitalization. He did have some mild arm swelling after his 3rd cycle and was found to have a right superficial clot. He was placed on aspirin and use warm compresses and this resolved. It was on the side that he had IV placed for his treatment. Clinically, his lymph nodes resolved and CAT scans performed after he completed 6 cycles showed no remaining enlarged lymph nodes. He did have prolonged neutropenia on the sixth cycle which required further cytokine support but this did recover. He is in today for examination and lab work. He is not aware of any lymphadenopathy. There has been no new medical problems such as surgeries or hospitalizations, since he was last seen in our clinic. GISSEL LOMAS [facility] [place], [address], [facility] 03/13/2019 09:42:23 09/12/2019 text/html HPIReported b y PatientVisit DetailsFor advanced directives / biobank authorizations, patient reportsadvanced directives? yes. For discharge, patient reportsdischarge disposition stable.Distress ScreeningFor distress screening, patient reportsdistress level 0 no stress. For practical problems, patient reportsno practical problems. For family problems, patient reportsno family problems. For emotional problems, patient reportsno emotional problems. For spiritual/catholic, patient reportsspiritual/relig ious problems? no. For physical problems, patient reportsno physical problems.NutritionFor nutrition screening, patient reportsnutrition screening yes,nutrition counseling last 6 months? no, andnutrition protocol implemented? no. This is a 69-year-old male, patient of Dr. Gissel Lomas, who I am following up today via a virtual visit phone call only today. Patient has a prior history of CLL, SLL, has been a patient of Dr. Lomas for a number of years. He has a history of lymphadenopathy and elevated white blood count. Eventually, with significant rise, the patient was initially treated with single agent Rituxan with a moderate response, but unfortunately had to be treated with more aggressive therapy with a combination of bendamustine and Rituxan, and this was finished in April of 2018. He was hospitalized with neutropenia and pneumonia and then given Neulasta for subsequent cycles. He did complete all 6 cycles of therapy. A followup CT imaging had shown no obvious evidence of any recurrent disease and/or adenopathy, other than some small shotty lymph nodes. In going back and review in his blood counts, he had a slow rise over a number of years. The white count that eventually mayra to 112,000; however, after treatment, he got a very good response to treatment and has stayed stable since that time. In discussion today, the patient is very talkative and appreciative for the phone call. His laboratory testing shows a white count of 6, hemoglobin of 15, platelets are normal at 154,000. His metabolic panel is normal. All of this is fairly stable and clinically, he says he is doing well, except for he is trying to quit smoking. TRELL LORD MD [address] [place] [address], [phone], [facility] 09/13/2019 08:19:01 01/16/2020 text/html HPIReported b y PatientVisit DetailsFor patient accompanied by, patient reportspatient accompanied by spouse. For advanced directives / biobank authorizations, patient reportsadvanced directives? yes. For discharge, patient reportsdischarge disposition stable.Distress ScreeningFor distress screening, patient reportshas the distress screening been completed in the last 45 days? yesanddistress level 0 no stress. For practical problems, patient reportsno practical problems. For family problems, patient reportsno family problems. For emotional problems, patient reportsno emotional problems. For spiritual/catholic, patient reportsspiritual/relig ious problems? no. For physical problems, patient reportsno physical problems.NutritionFor nutrition screening, patient reportsnutrition screening no,nutrition counseling last 6 months? no, andnutrition protocol implemented? no.ROS as noted in the HPI This is a 69-year-old male, patient of Dr. Gissel Lomas, who I am following up today via a virtual visit phone call only today. Patient has a prior history of CLL, SLL, has been a patient of Dr. Lomas for a number of years. He has a history of lymphadenopathy and elevated white blood count. Eventually, with significant rise, the patient was initially treated with single agent Rituxan with a moderate response, but unfortunately had to be treated with more aggressive therapy with a combination of bendamustine and Rituxan, and this was finished in April of 2018. He was hospitalized with neutropenia and pneumonia and then given Neulasta for subsequent cycles. He did complete all 6 cycles of therapy. A followup CT imaging had shown no obvious evidence of any recurrent disease and/or adenopathy, other than some small shotty lymph nodes. In going back and review in his blood counts, he had a slow rise over a number of years. The white count that eventually mayra to 112,000; however, after treatment, he got a very good response to treatment and has stayed stable since that time. In discussion today, the patient is very talkative and appreciative for the phone call. His laboratory testing shows a white count of 6, hemoglobin of 15, platelets are normal at 154,000. His metabolic panel is normal. All of this is fairly stable and clinically, he says he is doing well, except for he is trying to quit smoking. This is a 70-year-old male, previous patient of Dr. Gissel Lomas. He was diagnosed for a number of years through Dr. Lomas. According to the patient, almost 12 full years. Eventually had progression of disease. He was given single-agent Rituxan, had a moderate response that lasted several months, but then he had sort of a progressive significant adenopathy as well. He was given bendamustine and Rituxan in April 2018. He had pretty significant neutropenia, pneumonia, was hospitalized, but they were eventually able to get through 6 cycles of systemic chemotherapy and he got a very good response that has been durable since that time. He has not required any further therapy. He returns today. His laboratory studies; his CBC and CMP are largely unremarkable. He has little or no residual adenopathy. His last set of scans done more than a year and a half ago had just shown some deep cervical, retroperitoneal and mesenteric lymph nodes that were very tiny and largely asymptomatic. TRELL LORD MD [facility] [place], [address], [facility] 01/17/2020 17:03:58 07/16/2020 text/html HPIReported b y PatientVisit DetailsFor advanced directives / biobank authorizations, patient reportsadvanced directives? yes. For discharge, patient reportsdischarge disposition stable.Distress ScreeningFor distress screening, patient reportshas the distress screening been completed in the last 45 days? yesanddistress level 0 no stress. For practical problems, patient reportsno practical problems. For family problems, patient reportsno family problems. For emotional problems, patient reportsno emotional problems. For spiritual/catholic, patient reportsspiritual/relig ious problems? no. For physical problems, patient reportsno physical problems.NutritionFor nutrition screening, patient reportsnutrition screening no,nutrition counseling last 6 months? no, andnutrition protocol implemented? no.ROS as noted in the HPI This is a 70-year-old male, previous patient of Dr. Gissel Lomas. He was diagnosed a number of years with Dr. Lomas almost 13 years, he had CLL, eventually had progression of disease, was treated with single agent Rituxan. He had a moderate response to disease but then had progressively symptomatic adenopathy, was treated with bendamustine and Rituxan in April 2018. He had neutropenia and pneumonia, was hospitalized, but eventually they got through all 6 cycles of therapy. He had a great response to this, has really not had much else in regards to recurrent disease. He did some follow-up CT imaging for a period of time but then really nothing had shown and he has just been kind of laboratory checks only at this point in time. He returns today. He is in great shape, great health and takes good care of himself. He does say that he [facility] because he was exposed to [employer] and the association with CLL and [employer] and he says he has been retired some time and doing well. Today's labs, CBC and CMP are essentially normal. TRELL LORD MD [address] [place], [address], [facility] 07/18/2020 08:16:17 01/08/2021 text/html HPIReported b y PatientVisit DetailsFor advanced directives / biobank authorizations, patient reportsadvanced directives? yes. For discharge, patient reportsdischarge disposition stable.Distress ScreeningFor distress screening, patient reportshas the distress screening been completed in the last 45 days? yesanddistress level 0 no stress. For practical problems, patient reportsno practical problems. For family problems, patient reportsno family problems. For emotional problems, patient reportsno emotional problems. For spiritual/catholic, patient reportsspiritual/relig ious problems? no. For physical problems, patient reportsno physical problems.NutritionFor nutrition screening, patient reportsnutrition screening no,nutrition counseling last 6 months? no, andnutrition protocol implemented? no.ROS as noted in the HPI This is a 71-year-old male, previous patient of Dr. Gissel Lomas who is diagnosed for a number of years and almost has been diagnosed for up to now 13 years. Eventually, had progression of disease, was given single agent Rituxan. He had a moderate response that lasted for several months, but he had CLL and SLL. He then had progressive significant adenopathy. He was given bendamustine and Rituxan in April 2018. Since that time, he had a lot of difficulties and significant neutropenia and pneumonia with the treatment, but afterwards his white count has normalized. He has had no further significant adenopathy and he has done well. He says since [facility]cc, he walks several miles a day. He is in good overall shape. Today's labs, CBC and CMP are unremarkable. His manual diff does show some atypical lymphs. His metabolic panel was essentially normal. TRELL LORD MD [address] [place], [address], [facility] 01/09/2021 08:47:12
--- OUTSIDE RECORDS SUMMARY | 2025-04-30 09:34 | XMS_ITS | Referral Summary ---
Author Organization [employer] ([place], [place], [place], [place], [place]) Address [address] [place] [address] Care Team Providers Care Functional Consultant Name Role Phone Eladio Lomas MD Unavailable Breanna Crow PA-C Unavailable [phone] Allergies Active Allergy Reactions Criticality Noted [...] Do you speak a language other than Mal[place]ian at [facility]? No 12/11/2024 Do you want help [...] 01/28/2025 9:53 AM EDT Plan of Treatment Not on file Insurance [facility] MEDICARE PPO [facility] MEDICARE PPO Advance Directives For more information, please contact: [phone] * DNR - Limited Additional Intervention (Latest Code Status on File) Date Activated Date Inactivated Comments 12/11/2024 4:28 PM 12/14/2024 3:42 PM Care Teams Functional Consultant Relationship Specialty Start Date End Date Eladio Lomas MD [address] [facility] [address] [place] [address] Medical Oncologist Hematology and Oncology 07/08/22 Breanna Crow, PA-C [address] [facility] [address] [place] [address] Physician Lunchroom Aide Oncology 07/08/22
--- OUTSIDE RECORDS SUMMARY | 2025-04-30 09:34 | XMS_ITS | Encounter Summary ---
Author Organization Healthcare Address [address] [place] [address] Care Team Providers Care Development Coordinator Name Role Phone Per Patient, None Primary Care Provider Unavaila ble Encounter Details Date Type Department Care Team (Late st Contact Info) Description 01/07/2021 Orders Only [facility] at [facility] [address] [place] [address] Maurisio Aguilar MD [address] [address] Social History Tobacco Use Types [...] Glucose 99 74 - 100 mg/dL [facility] External BUN 16 6 - 20 mg/dL [facility] External Creatinine Blood 0.93 0.70 - 1.28 mg/dL [facility] External BUN/Creat Ratio 17 10 - 20 (calc) [facility] External Sodium 141 136 - 145 mmol/L [facility] External Potassium 4.2 3.4 - 5.0 mmol/L [facility] External Chloride 102 98 - 107 mmol/L [facility] External Carbon Dioxide 25 22 - 31 mmol/L [facility] External Anion Gap (AG) 14 7 - 25 (calc) [facility] External Calcium 9.4 8.6 - 10.2 mg/dL [facility] External Total Protein 7.0 6.4 - 8.3 g/dL [facility] External Albumin 4.8 3.5 - 5.2 g/dL [facility] External Globulin 2.2 1.5 - 4.5 g/dL (calc) [facility] External Albumin/Globulin Ratio 2.2 1.1 - 2.5 (calc) [facility] External Bilirubin Total 0.4 0.1 - 1.2 mg/dL [facility] External Alkaline Phosphatase 85 40 - 129 U/L [facility] External AST (SGOT) 22 0 - 40 U/L [facility] External ALT (SGPT) 19 0 - 41 U/L [facility] External EGFR (If AFR/AM) 94 >=60 [facility] External Estimated GFR 81 >=60 [facility] Comment: NOTE Chronic kidney [...] LAB BLOOD ORDERABLES Final Res ult [facility] [address] [place] [address], [place] [phone] documented in this encounter Visit Diagnoses Not on filedocumented in this encounter Care Teams Development Coordinator Relationship Specialty Start Date End Date Per Patient, [place] [address] PCP - General 05/02/20 documented as of this encounter
--- OUTSIDE RECORDS SUMMARY | 2025-04-30 09:35 | XMS_ITS | Clinical Summary ---
Author Organization [facility] , [facility] Address [address] [place] [address] Phone Care Team Providers Care Local Delivery Driver Name Role Phone JENNI ALFARO, BHAVANA Ren Primary Care Provider [phone] SIVA ALFARO, TRENA Michaels Unavailable [phone] BUSHRA ALFARO, GISSEL Chowdhury Unavailable [phone] Porfirio ALAFRO, Kvng Unavailable [phone] Reason for Visit and Chief Complaint The Chief Complaint is: Left shoulder pain Problems Includes: Problems addressed during this encounter and other active Problems Current Visit Onset Date Date of Diagnosis Resolved Date Provider Condition Status Joint Pain Shoulder Left 07/28/2023 07/28/2023 Ninfa Rao PA-C Active Last Documented On 5 1:42AM ; [facility], [facility] Past Visits Onset Date Date of Diagnosis Resolved Date Provider Condition Status Back Pain 10/30/2021 10/30/2021 Kvng portillo MD Active Last Documented On 5 1:41AM ; [facility], [facility] Plan of Treatment Fall Risk Assessment: This [...] the patient. - Last Documented On 08/18/2023 9:15AM ; [facility], [facility] This seems neurologic he does have weakness but he does not have a lot of pain with shoulder testing. I think at some point we may require an EMG to fully evaluate this. We did provide him with medication for his neuropathic pain. We will see him back as scheduled if he is continuing to have symptoms we will consider that test - Last Documented On 08/18/2023 9:15AM ; [facility], [facility] Assessments Includes: Assessments from this encounter Findings Likely brachial plexopathy - Last Documented On 08/18/2023 9:15AM ; [facility], [facility] Medical Equipment - Implanted Devices Includes: Current Devices No Medical Equipment Recorded Medications Includes: Medications discussed during this encounter and other current Medications New / Renewed during this visit Ninfa Rao PA-C on 07/28/2023 Medrol 4 MG Oral Tablet Therapy Pack Provider: Ninfa Maritnez 7 day supply: 21 tablet, 0 refills Diagnosis: take as directed TAKE DIRECTED Pharmacy: [address] [place], [id number] - Last Documented On 4 1:16PM By Zita Tim ; [facility] Gabapentin 300 MG Oral Capsule Provider: Marquis Truong MD 10 day supply: 30 capsule, 0 refills Diagnosis: one capsule by mouth three t imes a day Pharmacy: [address], [id number] - Last Documented On 4 2:02PM By Marquis Truong ; [facility], [facility] Current Medications (continue as prescribed) Diclofenac Sodium 75 MG Oral Tablet Delayed Release Provider: Diagnosis: Last Documented On 4 12:47PM By Zita Tim ; [facility] valACYclovir HCl 1 GM Oral Tablet 06/15/2023 Provide r: GISSEL TOMLINSON MD Diagnosis: Last Documented On 4 12:47PM By Zita Tim ; [facility] Amoxicillin-Pot Clavulanate 500-125 MG Oral Tablet 04/14/2023 Provider: GISSEL Urena (PO) Diagnosis: Last Documented On 4 12:47PM By Zita Tim ; [facility] Eliquis 5 MG Oral Tablet 04/12/2022 Provider: ALE TOMLINSON MD Diagnosis: Last Documented On 3 9:04AM By Zita Hodge ; [facility] Lactobacillus Acidophilus Powder 10/29/2021 Provider : Diagnosis: Last Documented On 2 1:37PM By Dr. Monroy ; [facility] valACYclovir HCl 1 GM Oral Tablet 10/27/2021 Provide r: Diagnosis: Last Documented On 2 1:36PM By Dr. Monroy ; [facility] Allopurinol 300 MG Oral Tablet 10/18/2021 Provider: Diagnosis: Last Documented On 2 1:36PM By Dr. Monroy ; [facility] Past Medications on file Eliquis 5 MG Oral Tablet 01/14/2022 - 02/13/2022 Provi susan: Kvng Monroy MD Diagnosis: Take 1 tablet PO twice a day Last Documented On 2 2:16PM By Zita Hodge ; [facility] oxyCODONE-Acetaminophen 7.5- 325 MG Oral Tablet 01/01/2022 - 01/11/2022 Provider: Kvng Monroy MD Diagnosis: Take 1 tablet PO up to three times a day, PRN post op pain Last Documented On 2 3:17PM By Dr. Monroy ; [facility] Medications Administered Includes: Administered Medications from this encounter No Administered Medications Recorded Vital Signs Includes: Vital Signs from this encounter Vital Name 07/28/2023 12:47P Height (in) 66 Weight (lb) 155 Body Mass Index 25 Body Surface Area 1.8 Note: hdv Last Documented: On 07/28/2023 12:48P M ; [facility] Results Includes: Results discussed during this encounter [...] treatment. Medications used for this condition: Patient is complaining of left shoulder and arm pain after falling out of the bed. He does have numbness and burning in the arm. Social History Description Last Updated Tobacco non-user 01/14/2022 Last Documented On 4 12:47PM ; [facility], [facility] Not a smoker 10/30/2021 Last Documented On 4 12:47PM ; [facility], [facility] Caffeine use 10/30/2021 Last Documented On 4 12:47PM ; [facility], [facility] Exercising regularly 10/30/2021 Last Documented On 4 12:47PM ; [facility], [facility] No recent change in diet 10/30/2021 Last Documented On 4 12:47PM ; [facility], [facility] Not a current smoker. 10/30/2021 Last Documented On 4 12:47PM ; [facility], [facility] Not using alcohol 10/30/2021 Last Documented On 4 12:47PM ; [facility], [facility] Not using drugs 10/30/2021 Last Documented On 4 12:47PM ; [facility] Non-smoker 10/29/2021 Last Documented On 4 12:47PM ; [facility] Sex - Male 10/23/2023 Last Documented On 4 12:35PM ; [facility] Smoking Status Unknown Procedures and Surgical History Includes: Procedures from this encounter Procedures Code Diagnosis Performing Provider Service L ocation Service Date use of tobacco assessment performed 1000F Last Documented On 4 12:48PM ; [facility], [facility] patient screened for future fall risk: documentation of any fall with injury in past year 1100F Last Documented On 4 12:48PM ; [facility] review of medications documented 1160F Last Documented On 4 12:48PM ; [facility] an X-ray was performed 14669 Last Documented On 4 12:48PM ; [facility] an MRI was performed 95532 Last Documented On 4 12:48PM ; [facility], [facility] Surgical History Last Updated History of back surgery 06/2021 Right L4-5 Laminectomy/Discectomy @ E 01/14/2022 Last Documented On 4 12:47PM ; [facility], [facility] Medical History Includes: Medical History addressed during this encounter Description Last Updated Recent immunization for flu 2020 022 Last Documented On 4 12:47PM ; [facility], [facility] Past surgical history non-contributory 0 11/04/2021 Last Documented On 4 12:47PM ; [facility], [facility] History of History of Blood Clots 2021 Last Documented On 4 12:47PM ; [facility], [facility] History of History of Cancer 10/30/2021 Last Documented On 4 12:47PM ; [facility], [facility] No recent immunization for pneumococcal pneumonia 10/30/2021 Last Documented On 4 12:47PM ; [facility], [facility] Family History Includes: Family History addressed during this encounter Description Last Updated Diabetes mellitus 07/28/2023 Last Documented On 4 9:15AM ; [facility], [facility] Family history of cancer 07/28/2023 Last Documented On 4 9:15AM ; [facility] Family history of heart disease 07/28/19 24 Last Documented On 4 9:15AM ; [facility], [facility] Family history of systemic hypertension 07/28/2023 Last Documented On 4 9:15AM ; [facility] Review of Systems Includes: Review of Systems [...] Description No anxiety Last Documented On 4 12:48PM ; [facility] Physical Exam Includes: Physical Exam from this encounter Allergies Includes: Active Allergies Substance Type Reaction Onset Date Resolved Date Statu s Shellfish Allergy 05/13/2022 Active Last Documented On 4 9:03AM ; [facility] IVP DYE Allergy 05/13/2022 Active Last Documented On 4 9:03AM ; [facility], [facility] Care Local Delivery Driver Name (Identifier) Role/Relation Location/Telecom Last Documented By BHAVANA ARTEAGA MD ([id number]) 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) [address] [place] [address] [place], [address] tel:[phone] Last Documented On 10/23/2023 12:35PM ; [facility] TRENA PANIAGUA MD ([id number]) [address] [place] [address] [place], [address] tel:[phone] Last Documented On 11/06/2021 9:35AM ; [facility] GISSEL TOMLINSON MD ([id number]) [address] [place] [address] [place], [address] tel:[phone] Last Documented On 12/29/2021 9:26AM ; [facility] Kvng Monroy MD ([id number]) Assigned practitioner (occupation) tel:[phone] Last Documented On 10/23/2023 12:35PM ; [facility] Encounters Encounter Provider Location (Healthcare Service Location) Date Check-In Time Check-Out Time Diagnosis Encounter Disposition Physician Specified Ninfa Rao PA-C [facility] B 2023 11:49AM 1:08PM Payer Includes: Active Insurance Policies Plan Name (Payer ID) Coverage Type Member ID Group # Subscriber (ID) Relationship Effective Dates 1 - [employer] [place] [id number]) [id number] Corbin Hu Self 05/02/19 23 - Unknown Last Documented On 3 9:00AM ; [facility], [facility] Clinical Notes Includes: Clinical Notes from this encounter * Progress note Date Encounter Last Documented by 07/28/2023 Physician Specified Last eric gaspar on 08/18/2023; 9:15 AM, Ninfa Rao PA-C; [facility], [facility] Active Problems & Conditions - Back Pain [...] treatment. Medications used for this condition: Patient is complaining of left shoulder and arm pain after falling out of the bed. He does have numbness and burning in the arm. Current Medication - Allopurinol 300 MG Oral [...] Back surgery 01/01/2022 Right L4-5 Laminectomy/Discectomy @ E Social History Not a current smoker. Current diet: No recent change in diet. Caffeine use: Caffeine use. Tobacco use: Tobacco non-user. Not a smoker. Non-smoker. Alcohol: Not using alcohol. Drug Use: Not using drugs. Habits: Exercising regularly. Allergies - IVP DYE - Shellfish Family History Cancer Heart disease Diabetes mellitus Systemic hypertension Review Of Systems [...] allergic reaction. Physical Findings - Vitals taken 07/28/2023 12:47 pm hdv Height 66 in Weight 155 lbs [...] joint effusion. No muscle or bony deformity he has no passive joint pain at the shoulder on exam has some periscapular pain and trapezial spasm he does show weakness in the deltoid and in the rotator cuff. He is mild weakness with biceps testing. 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 The left shoulder is stable. There was really no significant pain on cuff testing just weakness Tests Radiographs three-view of the shoulder today show no sign of fracture or joint dislocation Assessment Likely brachial plexopathy Previous Tests Imaging: X-Ray: An X-ray was performed. MRI Scan: An MRI was performed. Plan StartCited - Other Medrol 4 MG tablet take as directed TAKE DIRECTED, 7 days, 0 refills Gabapentin 300 MG capsule one capsule by mouth three times a day, 10 days, 0 refills EndCited Fall Risk Assessment: This patient has been [...] therapy has been discussed with the patient. This seems neurologic he does have weakness but he does not have a lot of pain with shoulder testing. I think at some point we may require an EMG to fully evaluate this. We did provide him with medication for his neuropathic pain. We will see him back as scheduled if he is continuing to have symptoms we will consider that test Notes This dictation was done with voice recognition software and may contain errors and omissions. Practice Management Use of tobacco assessment performed and patient screened for future fall risk documentation of any fall with injury in past year Review of medications documented. Care Team - BHAVANA ARTEAGA MD - FAMILY ASSESSMENT WORKER - TRENA PANIAGUA MD - Infectious Disease - GISSEL TOMLINSON MD - Oncology
--- OUTSIDE RECORDS SUMMARY | 2025-04-30 09:35 | XMS_ITS ---
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
--- OUTSIDE RECORDS SUMMARY | 2025-04-30 09:35 | XMS_ITS | Data Portability ---
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 Unfortunately, he had progression and now is status post 6 cycles Treanda/Rituxan with last dosing in April 2018. He has had a marked response clinically, radiographically and serologically. Prolonged neutropenia has now resolved. Therefore, we will see him back in 3 months with examination and lab work. We will check blood counts monthly in the interim given the recent issues with neutropenia. For his blood in the semen, we will refer him to urology. He voiced understanding and agreement with the above. Not available 06/06/2018 12:18:19 06/09/2018 06/09/2018 Gross hematuria, hemospermia. I recommended a full hematuria evaluation. He will follow up for cystoscopy. The procedure was discussed with him including risks and benefits. Typical procedure was described. He reports that he had one over 20 years ago in [place]. We will obtain a urine cytology today. PSA today. 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 he is doing very well clinically and no recent blood counts had shown a marked increase in total white count, today's repeat laboratories are unremarkable. This certainly is more consistent with his clinical history and exam today. I explained to him that is not clear to me why he had such a high white blood cell count just 2 weeks ago. Regardless, at this point I have recommended following with observation only to include repeat blood counts in approximately 2 weeks and see me back as previously planned in early August. He may discontinue the aspirin. 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 He is doing very well clinically and serologically. Therefore, we will continue to follow with observation only. This will include return to clinic in 3 months with examination and lab work. I have asked him to let me know if there are any questions or concerns at any time. Not available 09/07/2018 14:33:34 Plan of Treatment Reminders Order Date Submit Date Provider Last Modified By Organization Details Last Modified Time Details Appointments None recorded. Lab urinalysis, dipstick, auto 2018 [email or web address] Not available 9 15:32:43 cytology, non-gynecol ogical, unspecified specimen 2018 019 [facility], [address] [place] [address], [phone], 9 09:19:03 Referral None recorded. Procedures None recorded. Surgeries None recorded. Imaging None recorded. Medication Orders None recorded. Patient TargetsNo targets recorded. Patient Instructions Encounter Date Encounter Id Patient Instructions Last Modified By Organization Details Last Modified Time 06/09/2018 [id number] blood in the urine: care instructions [email or web address] Not available 06/09/2018 15:32:43 Reason for Referral None Reported. Results Created Date Observation Date Name Description Value Unit Range Abnormal Flag Note LastModifiedBy Organization Detail LastModifiedTime 05/22/19 19 05/22/2018 CMP, serum or plasm a glucose 101 mg/dL 74-100 high Not Available [facility] [address] [place] [address], [phone], 05/22/2018 08:26:43 05/22/1905/22/2018 CMP, serum or plasm a blood urea nitrogen 18 mg/dL 6-20 normal Not Available [facility] [address] [place] [address], [address], 05/22/2018 08:26:43 05/22/1905/22/2018 CMP, serum or plasm a creatinine 0.90 mg/dL 0.70-1 .25 normal Not Available [facility] [address] [place] [address], [address], 05/22/2018 08:26:43 05/22/1905/22/2018 CMP, serum or plasm a BUN/creatini ne ratio 20 (calc ) 10-20 normal Not Available [facility] [address] [place] [address], [address], 05/22/2018 08:26:43 05/22/1905/22/2018 CMP, serum or plasm a sodium 141 mmol/ L 136-14 5 normal Not Available [facility] [address] [place] [address], [address], 05/22/2018 08:26:43 05/22/1905/22/2018 CMP, serum or plasm a potassium 4.6 mmol/ L 3.4-5. 0 normal Not Available [facility] [address] [place] [address], [address], 05/22/2018 08:26:43 05/22/1905/22/2018 CMP, serum or plasm a chloride 104 mmol/ L 98-107 normal Not Available [facility] [address] [place] [address], [address], 05/22/2018 08:26:43 05/22/1905/22/2018 CMP, serum or plasm a carbon dioxide 28 mmol/ L 20-32 normal Not Available [facility] [address] [place] [address], [address], 05/22/2018 08:26:43 05/22/1905/22/2018 CMP, serum or plasm a anion gap 9 (calc ) 7-25 normal Not Available [facility] [address] [place] [address], [address], 05/22/2018 08:26:43 05/22/1905/22/2018 CMP, serum or plasm a calcium 9.4 mg/dL 8.6-10 .2 normal Not Available [facility] [address] [place] [address], [address], 05/22/2018 08:26:43 05/22/1905/22/2018 CMP, serum or plasm a total protein 6.2 g/dL 6.4-8. 3 low Not Available [facility] [address] [place] [address], [address], 05/22/2018 08:26:43 05/22/1905/22/2018 CMP, serum or plasm a albumin 4.8 g/dL 3.5-5. 2 normal Not Available [facility] [address] [place] [address], [address], 05/22/2018 08:26:43 05/22/1905/22/2018 CMP, serum or plasm a globulin 1.4 g/dL_ (calc ) 1.5-4. 5 low Not Available [facility] [address] [place] [address], [address], 05/22/2018 08:26:43 05/22/1905/22/2018 CMP, serum or plasm a albumin/glob ulin ratio 3.4 (calc ) 1.1-2. 5 high Not Available [facility] [address] [place] [address], [address], 05/22/2018 08:26:43 05/22/1905/22/2018 CMP, serum or plasm a bilirubin, total 0.4 mg/dL 0.1-1. 2 normal Not Available [facility] [address] [place] [address], [address], 05/22/2018 08:26:43 05/22/1905/22/2018 CMP, serum or plasm a alkaline phosphatase 74 U/L 40-130 normal Not Available [facility] [address] [place] [address], [address], 05/22/2018 08:26:43 05/22/1905/22/2018 CMP, serum or plasm a AST 23 U/L 0-40 normal Not Available [facility] [address] [place] [address], [address], 05/22/2018 08:26:43 05/22/1905/22/2018 CMP, serum or plasm a ALT 19 U/L 0-41 normal Not Available [facility] [address] [place] [address], [address], 05/22/2018 08:26:43 05/22/1905/22/2018 CMP, serum or plasm a GFR 100 >= 60 normal Not Available [facility] [address] [place] [address], [address], 05/22/2018 08:26:43 05/22/1905/22/2018 CMP, serum or plasm a GFR non- 86 >= 60 normal NOT E NEW calcu [...] month s or longe r. Not Available [facility] [address] [place] [address], [address], 05/22/2018 08:26:43 05/22/1905/22/2018 ldh, serum or plasm a LDH 158 U/L 135-22 5 normal Not Available [facility] [address] [place] [address], [address], 05/22/2018 08:36:43 05/22/1905/22/2018 CBC w/ auto diff white blood cells 2.5 K/uL 3.8-10 .8 low Not Available [facility] [address] [place] [address], [address], 05/22/2018 08:39:44 05/22/1905/22/2018 CBC w/ auto diff red blood cells 4.70 M/uL 4.20-5 .80 normal Not Available [facility] [address] [place] [address], [address], 05/22/2018 08:39:44 05/22/1905/22/2018 CBC w/ auto diff hemoglobin 13.6 g/dL 14.0-1 8.0 low Not Available [facility] [address] [place] [address], [address], 05/22/2018 08:39:44 05/22/1905/22/2018 CBC w/ auto diff hematocrit 39.4 % 40.0-5 2.0 low Not Available [facility] [address] [place] [address], [address], 05/22/2018 08:39:44 05/22/1905/22/2018 CBC w/ auto diff MCV 84 fL 80-100 normal Not Available [facility] [address] [place] [address], [address], 05/22/2018 08:39:44 05/22/1905/22/2018 CBC w/ auto diff MCH 29 pg 26-35 normal Not Available [facility] [address] [place] [address], [address], 05/22/2018 08:39:44 05/22/1905/22/2018 CBC w/ auto diff MCHC 34 g/dL 32-36 normal Not Available [facility] [address] [place] [address], [address], 05/22/2018 08:39:44 05/22/1905/22/2018 CBC w/ auto diff RDW 15.4 % 11.0-1 5.0 high Not Available [facility] [address] [place] [address], [address], 05/22/2018 08:39:44 05/22/1905/22/2018 CBC w/ auto diff MPV 6.8 fL 6.2-10 .5 normal Not Available [facility] [address] [place] [address], [address], 05/22/2018 08:39:44 05/22/1905/22/2018 CBC w/ auto diff platelet count 122 K/uL 130-40 0 low Not Available [facility] [address] [place] [address], [address], 05/22/2018 08:39:44 05/22/1905/22/2018 CBC w/ auto diff neutrophil,a bsolute 0.1 K/uL 1.6-8. 4 low Not Available [facility] [address] [place] [address], [address], 05/22/2018 08:39:44 05/22/1905/22/2018 CBC w/ auto diff lymphocyte,a bsolute 1.6 K/uL 0.4-5. 1 normal Not Available [facility] [address] [place] [address], [address], 05/22/2018 08:39:44 05/22/1905/22/2018 CBC w/ auto diff monocyte,abs olute 0.4 K/uL 0.0-1. 2 normal Not Available [facility] [address] [place] [address], [address], 05/22/2018 08:39:44 05/22/1905/22/2018 CBC w/ auto diff eosinophil,a bsolute 0.4 K/uL 0.0-0. 8 normal Not Available [facility] [address] [place] [address], [address], 05/22/2018 08:39:44 05/22/1905/22/2018 CBC w/ auto diff basophil,abs olute 0.0 K/uL 0.0-0. 3 normal Not Available [facility] [address] [place] [address], [address], 05/22/2018 08:39:44 05/22/1905/22/2018 CBC w/ auto diff % neutrophils 4.0 % 42.0-7 8.0 low Not Available [facility] [address] [place] [address], [address], 05/22/2018 08:39:44 05/22/1905/22/2018 CBC w/ auto diff % lymphocytes 64.0 % 11.0-4 7.0 high Not Available [facility] [address] [place] [address], [address], 05/22/2018 08:39:44 05/22/1905/22/2018 CBC w/ auto diff % monocytes 15.0 % 0.0-11 .0 high Not Available [facility] [address] [place] [address], [address], 05/22/2018 08:39:44 05/22/1905/22/2018 CBC w/ auto diff % eosinophils 15.0 % 0.0-7. 0 high Not Available [facility] [address] [place] [address], [address], 05/22/2018 08:39:44 05/22/1905/22/2018 CBC w/ auto diff % basophils 0.0 % 0.0-3. 0 normal Not Available [facility] [address] [place] [address], [address], 05/22/2018 08:39:44 05/22/1905/22/2018 CBC w/ auto diff nucleated red cells 0.0 % 0.0-0. 9 normal Not Available [facility] [address] [place] [address], [address], 05/22/2018 08:39:44 05/22/1905/22/2018 CBC w/ auto diff nucleated RBCs, absolute 0.00 K/uL not estab. normal Not Available [facility] [address] [place] [address], [address], 05/22/2018 08:39:44 05/22/1905/22/2018 sam dos santos, blood manual differential PERFOR MED normal Not Available [facility] [address] [place] [address], [address], 05/22/2018 08:39:46 05/22/1905/22/2018 sam dos santos, blood % band neutrophils 1.0 % 0.0-7. 0 normal Not Available [facility] [address] [place] [address], [address], 05/22/2018 08:39:46 05/22/1905/22/2018 diffsam lopez, blood % atypical lymphocytes 0 % 0-1 normal Not Available [facility] [address] [place] [address], [address], 05/22/2018 08:39:46 05/22/1905/22/2018 sam dos santos, blood % metamyelocyt es 1 % 0-1 normal Not Available [facility] [address] [place] [address], [address], 05/22/2018 08:39:46 05/22/1905/22/2018 diffe renti al, manua l, blood % myelocytes 0 % 0-1 normal Not Available [facility] [address] [place] [address], [address], 05/22/2018 08:39:46 05/22/19 19 05/22/2018 sam dos santos l, blood % promyelocyte s 0 % normal Not Available [facility] [address] [place] [address], [address], 05/22/2018 08:39:46 05/22/19 19 05/22/2018 sam dos santos l, blood % blast 0 % normal Not Available [facility] [address] [place] [address], [address], 05/22/2018 08:39:46 05/22/1905/22/2018 sam dos santos l, blood nucleated red cells 0 /100_ WBC normal Not Available [facility] [address] [place] [address], [address], 05/22/2018 08:39:46 05/22/1905/22/2018 sam dos santos l, blood smudge cells 0 normal Not Available [facility] [address] [place] [address], [address], 05/22/2018 08:39:46 05/22/1905/22/2018 sam dos santos, blood platelet morphology NORMAL normal Not Available [facility] [address] [place] [address], [address], 05/22/2018 08:39:46 05/22/1905/22/2018 sam dos santos l, blood ovalocytes SLIGHT abnormal Not Available [facility] [address] [place] [address], [address], 05/22/2018 08:39:46 05/23/1905/23/2018 urina lysis , compl ete color YELLOW normal Not Available [facility] [address] [place] [address], [address], 05/23/2018 12:23:06 05/23/19 19 05/23/2018 urina lysis , compl ete appearance CLEAR normal Not Available [facility] [address] [place] [address], [address], 05/23/2018 12:23:06 05/23/1905/23/2018 urina lysis , compl ete glucose NORMAL mg/dL normal normal Not Available [facility] [address] [place] [address], [address], 05/23/2018 12:23:06 05/23/1905/23/2018 urina lysis , compl ete bilirubin NEGATI VE mg/dL negati ve normal Not Available [facility] [address] [place] [address], [address], 05/23/2018 12:23:06 05/23/1905/23/2018 urina lysis , compl ete ketone NEGATI VE mg/dL negati ve normal Not Available [facility] [address] [place] [address], [address], 05/23/2018 12:23:06 05/23/1905/23/2018 urina lysis , compl ete specific gravity 1.011 1.003- 1.035 normal Not Available [facility] [address] [place] [address], [address], 05/23/2018 12:23:06 05/23/1905/23/2018 urina lysis , compl ete blood 25 /uL negati ve abnormal Not Available [facility] [address] [place] [address], [address], 05/23/2018 12:23:06 05/23/1905/23/2018 urina lysis , compl ete pH 5 5.0 - 8.0 normal Not Available [facility] [address] [place] [address], [address], 05/23/2018 12:23:06 05/23/19 19 05/23/2018 urina lysis , compl ete protein NEGATI VE mg/dL negati ve normal Not Available [facility] [address] [place] [address], [address], 05/23/2018 12:23:06 05/23/19 19 05/23/2018 urina lysis , compl ete urobilinogen NORMAL mg/dL normal normal Not Available [facility] [address] [place] [address], [address], 05/23/2018 12:23:06 05/23/19 19 05/23/2018 urina lysis , compl ete nitrite NEGATI VE negati ve normal Not Available [facility] [address] [place] [address], [address], 05/23/2018 12:23:06 05/23/19 19 05/23/2018 urina lysis , compl ete leukocyte esterase NEGATI VE /uL negati ve normal Not Available [facility] [address] [place] [address], [address], 05/23/2018 12:23:06 05/23/1905/23/2018 urina lysis , compl ete WBC, urine RARE 0-5/hp f normal Not Available [facility] [address] [place] [address], [address], 05/23/2018 12:23:06 05/23/19 19 05/23/2018 urina lysis , compl ete RBC, urine 0-2 0-2/hp f normal Not Available [facility] [address] [place] [address], [address], 05/23/2018 12:23:06 05/23/19 19 05/23/2018 urina lysis , compl ete squamous epi. cells RARE 0-5/hp f normal Not Available [facility] [address] [place] [address], [address], 05/23/2018 12:23:06 05/29/19 19 05/29/2018 CBC w/ auto diff white blood cells 10.5 K/uL 3.8-10 .8 normal Toxic granu latio n of neutr ophil s noted . Not Available [facility] [address] [place] [address], [address], 05/29/2018 15:02:08 05/29/19 19 05/29/2018 CBC w/ auto diff red blood cells 4.74 M/uL 4.20-5 .80 normal Not Available [facility] [address] [place] [address], [address], 05/29/2018 15:02:08 05/29/1905/29/2018 CBC w/ auto diff hemoglobin 14.0 g/dL 14.0-1 8.0 normal Not Available [facility] [address] [place] [address], [address], 05/29/2018 15:02:08 05/29/19 19 05/29/2018 CBC w/ auto diff hematocrit 40.5 % 40.0-5 2.0 normal Not Available [facility] [address] [place] [address], [address], 05/29/2018 15:02:08 05/29/1905/29/2018 CBC w/ auto diff MCV 85 fL 80-100 normal Not Available [facility] [address] [place] [address], [address], 05/29/2018 15:02:08 05/29/1905/29/2018 CBC w/ auto diff MCH 29 pg 26-35 normal Not Available [facility] [address] [place] [address], [address], 05/29/2018 15:02:08 05/29/1905/29/2018 CBC w/ auto diff MCHC 35 g/dL 32-36 normal Not Available [facility] [address] [place] [address], [address], 05/29/2018 15:02:08 05/29/19 19 05/29/2018 CBC w/ auto diff RDW 15.1 % 11.0-1 5.0 high Not Available [facility] [address] [place] [address], [address], 05/29/2018 15:02:08 05/29/19 19 05/29/2018 CBC w/ auto diff MPV 7.3 fL 6.2-10 .5 normal Not Available [facility] [address] [place] [address], [address], 05/29/2018 15:02:05/29/19 19 05/29/2018 CBC w/ auto diff platelet count 105 K/uL 130-40 0 low Not Available [facility] [address] [place] [address], [address], 05/29/2018 15:02:05/29/19 19 05/29/2018 CBC w/ auto diff neutrophil,a bsolute 7.6 K/uL 1.6-8. 4 normal Not Available [facility] [address] [place] [address], [address], 05/29/2018 15:02:05/29/19 19 05/29/2018 CBC w/ auto diff lymphocyte,a bsolute 2.2 K/uL 0.4-5. 1 normal Not Available [facility] [address] [place] [address], [address], 05/29/2018 15:02:05/29/19 19 05/29/2018 CBC w/ auto diff monocyte,abs olute 0.5 K/uL 0.0-1. 2 normal Not Available [facility] [address] [place] [address], [address], 05/29/2018 15:02:08 05/29/19 19 05/29/2018 CBC w/ auto diff eosinophil,a bsolute 0.2 K/uL 0.0-0. 8 normal Not Available [facility] [address] [place] [address], [address], 05/29/2018 15:02:08 05/29/19 19 05/29/2018 CBC w/ auto diff basophil,abs olute 0.0 K/uL 0.0-0. 3 normal Not Available [facility] [address] [place] [address], [address], 05/29/2018 15:02:05/29/19 19 05/29/2018 CBC w/ auto diff % neutrophils 72.0 % 42.0-7 8.0 normal Not Available [facility] [address] [place] [address], [address], 05/29/2018 15:02:05/29/19 19 05/29/2018 CBC w/ auto diff % lymphocytes 21.0 % 11.0-4 7.0 normal Not Available [facility] [address] [place] [address], [address], 05/29/2018 15:02:08 05/29/19 19 05/29/2018 CBC w/ auto diff % monocytes 5.0 % 0.0-11 .0 normal Not Available [facility] [address] [place] [address], [address], 05/29/2018 15:02:05/29/19 19 05/29/2018 CBC w/ auto diff % eosinophils 2.0 % 0.0-7. 0 normal Not Available [facility] [address] [place] [address], [address], 05/29/2018 15:02:05/29/1905/29/2018 CBC w/ auto diff % basophils 0.0 % 0.0-3. 0 normal Not Available [facility] [address] [place] [address], [address], 05/29/2018 15:02:05/29/19 19 05/29/2018 CBC w/ auto diff nucleated red cells 0.1 % 0.0-0. 9 normal Not Available [facility] [address] [place] [address], [address], 05/29/2018 15:02:08 05/29/19 19 05/29/2018 CBC w/ auto diff nucleated RBCs, absolute 0.01 K/uL not estab. normal Not Available [facility] [address] [place] [address], [address], 05/29/2018 15:02:08 05/29/19 19 05/29/2018 diffsam lopez, blood manual differential PERFOR MED normal Not Available [facility] [address] [place] [address], [address], 05/29/2018 15:02:05/29/19 19 05/29/2018 diffsam lopez l, blood % band neutrophils 0.0 % 0.0-7. 0 normal Not Available [facility] [address] [place] [address], [address], 05/29/2018 15:02:05/29/19 19 05/29/2018 diffsam lopez l, blood % atypical lymphocytes 0 % 0-1 normal Not Available [facility] [address] [place] [address], [address], 05/29/2018 15:02:05/29/19 19 05/29/2018 diffsam lopez l, blood % metamyelocyt es 0 % 0-1 normal Not Available [facility] [address] [place] [address], [address], 05/29/2018 15:02:05/29/19 19 05/29/2018 diffsam lopez l, blood % myelocytes 0 % 0-1 normal Not Available [facility] [address] [place] [address], [address], 05/29/2018 15:02:09 05/29/19 19 05/29/2018 diffe sam vergara l, blood % promyelocyte s 0 % normal Not Available [facility] [address] [place], [address], 05/29/2018 15:02:09 05/29/19 19 05/29/2018 sma dos santos, blood % blast 0 % normal Not Available [facility] [address] [place] [address], [address], 05/29/2018 15:02:09 05/29/19 19 05/29/2018 sam dos santos, blood nucleated red cells 0 /100_ WBC normal Not Available [facility] [facility] [address] [place] [address], [address], 05/29/2018 15:02:09 05/29/19 19 05/29/2018 sam dos santos, blood smudge cells 0 normal Not Available [facility] [address] [place] [address], [address], 05/29/2018 15:02:09 05/29/19 19 05/29/2018 sam dos santos, blood RBC morphology NORMAL normal Not Available [facility] [address] [place] [address], [address], 05/29/2018 15:02:09 05/29/19 19 05/29/2018 sam dos santos l, blood platelet morphology NORMAL normal Not Available [facility] [address] [place] [address], [address], 05/29/2018 15:02:09 06/06/19 19 06/06/2018 CBC w/ auto diff white blood cells 5.3 K/uL 3.8-10 .8 normal Not Available [facility] [address] [place] [address], [address], 06/06/2018 11:09:26 06/06/19 19 06/06/2018 CBC w/ auto diff red blood cells 4.78 M/uL 4.20-5 .80 normal Not Available [facility] [address] [place] [address] [place], [address], 06/06/2018 11:09:26 06/06/19 19 06/06/2018 CBC w/ auto diff hemoglobin 13.9 g/dL 14.0-1 8.0 low Not Available [facility] [address] [place] [address], [address], 06/06/2018 11:09:26 06/06/1906/06/2018 CBC w/ auto diff hematocrit 40.1 % 40.0-5 2.0 normal Not Available [facility] [address] [place] [address], [address], 06/06/2018 11:09:26 06/06/1906/06/2018 CBC w/ auto diff MCV 84 fL 80-100 normal Not Available [facility] [address] [place] [address], [address], 06/06/2018 11:09:26 06/06/1906/06/2018 CBC w/ auto diff MCH 29 pg 26-35 normal Not Available [facility] [address] [place] [address], [address], 06/06/2018 11:09:26 06/06/1906/06/2018 CBC w/ auto diff MCHC 35 g/dL 32-36 normal Not Available [facility] [address] [place] [address], [address], 06/06/2018 11:09:26 06/06/1906/06/2018 CBC w/ auto diff RDW 14.4 % 11.0-1 5.0 normal Not Available [facility] [address] [place] [address], [address], 06/06/2018 11:09:26 06/06/1906/06/2018 CBC w/ auto diff MPV 7.1 fL 6.2-10 .5 normal Not Available [facility] [address] [place] [address], [address], 06/06/2018 11:09:26 06/06/19 19 06/06/2018 CBC w/ auto diff platelet count 167 K/uL 130-40 0 normal Not Available [facility] [address] [place] [address], [address], 06/06/2018 11:09:26 06/06/19 19 06/06/2018 CBC w/ auto diff neutrophil,a bsolute 3.1 K/uL 1.6-8. 4 normal Not Available [facility] [address] [place] [address], [address], 06/06/2018 11:09:26 06/06/19 19 06/06/2018 CBC w/ auto diff lymphocyte,a bsolute 1.5 K/uL 0.4-5. 1 normal Not Available [facility] [address] [place] [address], [address], 06/06/2018 11:09:26 06/06/19 19 06/06/2018 CBC w/ auto diff monocyte,abs olute 0.3 K/uL 0.0-1. 2 normal Not Available [facility] [address] [place] [address], [address], 06/06/2018 11:09:26 06/06/19 19 06/06/2018 CBC w/ auto diff eosinophil,a bsolute 0.2 K/uL 0.0-0. 8 normal Not Available [facility] [address] [place] [address], [address], 06/06/2018 11:09:26 06/06/19 19 06/06/2018 CBC w/ auto diff basophil,abs olute 0.1 K/uL 0.0-0. 3 normal Not Available [facility] [address] [place] [address], [address], 06/06/2018 11:09:26 06/06/19 19 06/06/2018 CBC w/ auto diff % neutrophils 58.6 % 42.0-7 8.0 normal Not Available [facility] [address] [place] [address], [address], 06/06/2018 11:09:26 06/06/1906/06/2018 CBC w/ auto diff % lymphocytes 29.0 % 11.0-4 7.0 normal Not Available [facility] [address] [place] [address], [address], 06/06/2018 11:09:26 06/06/1906/06/2018 CBC w/ auto diff % monocytes 6.1 % 0.0-11 .0 normal Not Available [facility] [address] [place] [address], [address], 06/06/2018 11:09:26 06/06/1906/06/2018 CBC w/ auto diff % eosinophils 3.7 % 0.0-7. 0 normal Not Available [facility] [address] [place] [address], [address], 06/06/2018 11:09:26 06/06/1906/06/2018 CBC w/ auto diff % basophils 2.6 % 0.0-3. 0 normal Not Available [facility] [address] [place] [address], [address], 06/06/2018 11:09:26 06/06/1906/06/2018 CBC w/ auto diff nucleated red cells 0.0 % 0.0-0. 9 normal Not Available [facility] [address] [place] [address], [address], 06/06/2018 11:09:26 06/06/1906/06/2018 CBC w/ auto diff nucleated RBCs, absolute 0.00 K/uL not estab. normal Not Available [facility] [address] [place] [address], [address], 06/06/2018 11:09:26 06/09/1906/09/2018 PSA, serum or plasm a prostate specific antigen 1.01 NG/mL 0.00-6 .50 normal Test metho d is based on WHO-s tanda rdize d calib ratio n using the Danny Smith E601 maria teresa zer. PSA resul ts from diffe rent test metho ds are not inter rasmussen eable . A singl e PSA scree fabby test shoul d not be used as the sole evide nce of the prese nce or absen ce of disea se. Not Available [facility] [address] [place], [address], 06/09/2018 16:53:34 06/09/1906/09/2018 cytol ogy, non-g yneco logic al, unspe cifie d speci men medical cytology procedure SEE BELOW Depar tment of Patho logy Medic al Cytol ogy Repor t NAME: AMARILYS HU MARBELLA PATH. :[id number] [id number] Copie s to: SOURC E OF SPECI MEN: URINE Volum e: 60 mL Color : Straw Fixed : N Blood y: N Clott ed: N Clear : N CLINI BRANDON INFOR MATIO N: R 31.0 Diagn osis: Urine , ThinP rep: Negat kaitlin for eris saha . Few infla mmato ry cells prese nt. JYUNIOR VILLALOBOS MD Trinidad d Out Date: 06/15 , 09:17 Page 1 of 1 Not Available [facility] [address] [place], [address], 06/15/2018 09:19:03 06/09/1906/09/2018 urina lysis , dipst ick, auto Unknown Analyte Yellow Not Available [facility] [address] [place], [address], 06/09/2018 15:14:41 06/09/1906/09/2018 urina lysis , dipst ick, auto Unknown Analyte Clear Not Available [facility] [address] [place], [address], 06/09/2018 15:14:41 06/09/1906/09/2018 urina lysis , dipst ick, auto Unknown Analyte 1.[address] Not [address] [facility] [address] [place] [address], [address], 06/09/2018 15:14:41 06/09/19 19 06/09/2018 urina lysis , dipst ick, auto Unknown Analyte 5.0 Not Available [facility] [address], [address], 06/09/2018 15:14:41 06/09/1906/09/2018 urina lysis , dipst ick, auto Unknown Analyte Negati ve Not Available [facility] [address], [address], 06/09/2018 15:14:41 06/09/1906/09/2018 urina lysis , dipst ick, auto Unknown Analyte Negati ve Not Available [facility] [address], [address], 06/09/2018 15:14:41 06/09/1906/09/2018 urina lysis , dipst ick, auto Unknown Analyte Negtiv e Not Available [facility] [address], [address], 06/09/2018 15:14:41 06/09/1906/09/2018 urina lysis , dipst ick, auto Unknown Analyte Normal Not Available [facility] [address], [address], 06/09/2018 15:14:41 06/09/1906/09/2018 urina lysis , dipst ick, auto Unknown Analyte Negati ve Not Available [facility] [address], [address], 06/09/2018 15:14:41 06/09/1906/09/2018 urina lysis , dipst ick, auto Unknown Analyte Normal Not Available [facility] [address] [place], [address], 06/09/2018 15:14:41 06/09/19 19 06/09/2018 urina lysis , dipst ick, auto Unknown Analyte Negati ve Not Available [facility] [address] [place], [address], 06/09/2018 15:14:41 06/09/19 19 06/09/2018 urina lysis , dipst ick, auto Unknown Analyte Negati ve Not Available [facility] [address] [place], [address], 06/09/2018 15:14:41 06/09/19 19 06/09/2018 urina lysis , dipst ick, auto Unknown Analyte Clean Catch Not Available [facility] [address] [place] [address], [address], 06/09/2018 15:14:41 06/09/19 19 06/09/2018 urina lysis , dipst ick, auto Unknown Analyte Automa hubert Not Available [facility] [address] [place] [address], [address], 06/09/2018 15:14:41 06/28/19 19 06/28/2018 urina lysis , dipst ick, auto Unknown Analyte Yellow Not Available [facility] Schedule [address] [place], [address], 06/28/2018 12:56:39 06/28/19 19 06/28/2018 urina lysis , dipst ick, auto Unknown Analyte Clear Not Available [facility] Surgery Schedule [address] [place], [address], 06/28/2018 12:56:39 06/28/19 19 06/28/2018 urina lysis , dipst ick, auto Unknown Analyte 1.025 Not Available [facility] Surgery Schedule [address] [place], [address], 06/28/2018 12:56:39 06/28/19 19 06/28/2018 urina lysis , dipst ick, auto Unknown Analyte 5.0 Not Available [facility] Schedule [address] [place], [address], 06/28/2018 12:56:39 06/28/1906/28/2018 urina lysis , dipst ick, auto Unknown Analyte Negati ve Not Available [facility] Schedule [address] [place], [address], 06/28/2018 12:56:39 06/28/1906/28/2018 urina lysis , dipst ick, auto Unknown Analyte Negati ve Not Available [facility] Schedule [address] [place], [address], 06/28/2018 12:56:39 06/28/1906/28/2018 urina lysis , dipst ick, auto Unknown Analyte Trace Not Available [facility] [address] [place] [address], [address], 06/28/2018 12:56:39 06/28/1906/28/2018 urina lysis , dipst ick, auto Unknown Analyte Normal Not Available [facility] Schedule [address] [place], [address], 06/28/2018 12:56:39 06/28/1906/28/2018 urina lysis , dipst ick, auto Unknown Analyte 15 mg/dl (Sm) Not Available [facility] Schedule [address] [place], [address], 06/28/2018 12:56:39 06/28/1906/28/2018 urina lysis , dipst ick, auto Unknown Analyte 1 mg/dl Not Available [facility] Schedule [address] [place], [address], 06/28/2018 12:56:39 06/28/19 19 06/28/2018 urina lysis , dipst ick, auto Unknown Analyte 1 mg/dl (+) Not Available [facility] [address] [place] [address], [address], 06/28/2018 12:56:39 06/28/19 19 06/28/2018 urina lysis , dipst ick, auto Unknown Analyte 50 Cristofer/ul Not Available [facility] Schedule [address] [place] [address], [address], 06/28/2018 12:56:39 06/28/1906/28/2018 urina lysis , dipst ick, auto Unknown Analyte Clean Catch Not Available [facility] Schedule [address] [place] [address], [address], 06/28/2018 12:56:39 06/28/19 19 06/28/2018 urina lysis , dipst ick, auto Unknown Analyte Automa hubert Not Available [facility] [address] [place] [address], [address], 06/28/2018 12:56:39 07/05/1907/04/2018 CBC w/ auto diff white blood cells 62.7 K/uL 3.8-10 .8 high Not Available [facility] [address] [place] [address], [address], 07/04/2018 10:55:27 07/05/1907/04/2018 CBC w/ auto diff red blood cells 4.95 M/uL 4.20-5 .80 normal Not Available [facility] [address] [place] [address], [address], 07/04/2018 10:55:27 07/05/1907/04/2018 CBC w/ auto diff hemoglobin 14.6 g/dL 14.0-1 8.0 normal Not Available [facility] [address] [place] [address], [address], 07/04/2018 10:55:27 07/05/19 19 07/04/2018 CBC w/ auto diff hematocrit 40.9 % 40.0-5 2.0 normal Not Available [facility] [address] [place] [address], [address], 07/04/2018 10:55:27 07/05/19 19 07/04/2018 CBC w/ auto diff MCV 83 fL 80-100 normal Not Available [facility] [address] [place] [address], [address], 07/04/2018 10:55:27 07/05/19 19 07/04/2018 CBC w/ auto diff MCH 29 pg 26-35 normal Not Available [facility] [address] [place] [address], [address], 07/04/2018 10:55:27 07/05/19 19 07/04/2018 CBC w/ auto diff MCHC 36 g/dL 32-36 normal Not Available [facility] [address] [place] [address], [address], 07/04/2018 10:55:27 07/05/19 19 07/04/2018 CBC w/ auto diff RDW 13.9 % 11.0-1 5.0 normal Not Available [facility] [address] [place] [address], [address], 07/04/2018 10:55:27 07/05/1907/04/2018 CBC w/ auto diff MPV 6.8 fL 6.2-10 .5 normal Not Available [facility] [address] [place] [address], [address], 07/04/2018 10:55:27 07/05/19 19 07/04/2018 CBC w/ auto diff platelet count 138 K/uL 130-40 0 normal Not Available [facility] [address] [place] [address], [address], 07/04/2018 10:55:27 07/05/19 19 07/04/2018 CBC w/ auto diff neutrophil,a bsolute 16.9 K/uL 1.6-8. 4 high Not Available [facility] [address] [place] [address], [address], 07/04/2018 10:55:27 07/05/19 19 07/04/2018 CBC w/ auto diff lymphocyte,a bsolute 35.1 K/uL 0.4-5. 1 high Not Available [facility] [address] [place] [address], [address], 07/04/2018 10:55:27 07/05/19 19 07/04/2018 CBC w/ auto diff monocyte,abs olute 2.5 K/uL 0.0-1. 2 high Not Available [facility] [address] [place] [address], [address], 07/04/2018 10:55:27 07/05/19 19 07/04/2018 CBC w/ auto diff eosinophil,a bsolute 7.5 K/uL 0.0-0. 8 high Not Available [facility] [address] [place] [address], [address], 07/04/2018 10:55:27 07/05/19 19 07/04/2018 CBC w/ auto diff basophil,abs olute 0.6 K/uL 0.0-0. 3 high Not Available [facility] [address] [place] [address], [address], 07/04/2018 10:55:27 07/05/19 19 07/04/2018 CBC w/ auto diff % neutrophils 26.0 % 42.0-7 8.0 low Not Available [facility] [address] [place] [address], [address], 07/04/2018 10:55:27 07/05/19 19 07/04/2018 CBC w/ auto diff % lymphocytes 56.0 % 11.0-4 7.0 high Not Available [facility] [address] [place] [address], [address], 07/04/2018 10:55:27 07/05/19 19 07/04/2018 CBC w/ auto diff % monocytes 4.0 % 0.0-11 .0 normal Not Available [facility] [address] [place] [address], [address], 07/04/2018 10:55:27 07/05/19 19 07/04/2018 CBC w/ auto diff % eosinophils 12.0 % 0.0-7. 0 high Not Available [facility] [address] [place] [address], [address], 07/04/2018 10:55:27 07/05/19 19 07/04/2018 CBC w/ auto diff % basophils 1.0 % 0.0-3. 0 normal Not Available [facility] [address] [place] [address], [address], 07/04/2018 10:55:27 07/05/19 19 07/04/2018 CBC w/ auto diff nucleated red cells 0.6 % 0.0-0. 9 normal Not Available [facility] [address] [place] [address], [address], 07/04/2018 10:55:27 07/05/1907/04/2018 CBC w/ auto diff nucleated RBCs, absolute 0.02 K/uL not estab. normal Not Available [facility] [address] [place] [address], [address], 07/04/2018 10:55:27 07/05/19 19 07/04/2018 sam dos santos, blood manual differential PERFOR MED normal Not Available [facility] [address] [place] [address], [address], 07/04/2018 10:55:29 07/05/19 19 07/04/2018 sam dos santos, blood % band neutrophils 1.0 % 0.0-7. 0 normal Not Available [facility] [address] [place] [address], [address], 07/04/2018 10:55:29 07/05/19 19 07/04/2018 diffsam lopez l, blood % atypical lymphocytes 0 % 0-1 normal Not Available [facility] [address] [place] [address], [address], 07/04/2018 10:55:29 07/05/19 19 07/04/2018 diffsam lopez l, blood % metamyelocyt es 0 % 0-1 normal Not Available [facility] [address] [place] [address], [address], 07/04/2018 10:55:29 07/05/19 19 07/04/2018 diffsam lopez l, blood % myelocytes 0 % 0-1 normal Not Available [facility] [address] [place] [address], [address], 07/04/2018 10:55:29 07/05/19 19 07/04/2018 diffsam lopez l, blood % promyelocyte s 0 % normal Not Available [facility] [address] [place] [address], [address], 07/04/2018 10:55:29 07/05/19 19 07/04/2018 diffsam lopez l, blood % blast 0 % normal Not Available [facility] [address] [place] [address], [address], 07/04/2018 10:55:29 07/05/1907/04/2018 diffsam lopez l, blood nucleated red cells 0 /100_ WBC normal Not Available [facility] [address] [place] [address], [address], 07/04/2018 10:55:29 07/05/1907/04/2018 diffsam lopez l, blood smudge cells 0 normal Not Available [facility] [address] [place] [address], [address], 07/04/2018 10:55:29 07/05/19 19 07/04/2018 sam dos santos, blood platelet morphology NORMAL normal Not Available [facility] [address] [place] [address], [address], 07/04/2018 10:55:29 07/05/19 19 07/04/2018 sam dos santos, blood ovalocytes SLIGHT abnormal Not Available [facility] [address] [place] [address], [address], 07/04/2018 10:55:29 07/19/19 19 07/18/2018 sam dos santos, blood manual differential PERFOR MED normal Not Available [facility] [address] [place] [address], [address], 07/18/2018 11:16:29 07/19/19 19 07/18/2018 sam dos santos, blood % band neutrophils 17.0 % 0.0-7. 0 high Not Available [facility] [address] [place] [address], [address], 07/18/2018 11:16:29 07/19/19 19 07/18/2018 sam dos santos, blood % atypical lymphocytes 0 % 0-1 normal Not Available [facility] [address] [place] [address], [address], 07/18/2018 11:16:29 07/19/1907/18/2018 diffsam lopez, blood % metamyelocyt es 1 % 0-1 normal Not Available [facility] [address] [place] [address], [address], 07/18/2018 11:16:29 07/19/19 19 07/18/2018 diffsam lopez, blood % myelocytes 1 % 0-1 normal Not Available [facility] [address] [place] [address], [address], 07/18/2018 11:16:29 07/19/19 19 07/18/2018 diffsam lopez l, blood % promyelocyte s 0 % normal Not Available [facility] [address] [place] [address], [address], 07/18/2018 11:16:29 07/19/19 19 07/18/2018 diffsam lopez l, blood % blast 0 % normal Not Available [facility] [address] [place] [address], [address], 07/18/2018 11:16:29 07/19/1907/18/2018 diffsam lopez l, blood nucleated red cells 0 /100_ WBC normal Not Available [facility] [address] [place] [address], [address], 07/18/2018 11:16:29 07/19/19 19 07/18/2018 diffsam lopez l, blood smudge cells 0 normal Not Available [facility] [address] [place] [address], [address], 07/18/2018 11:16:29 07/19/19 19 07/18/2018 diffsam lopez l, blood platelet morphology NORMAL normal Not Available [facility] [address] [place] [address], [address], 07/18/2018 11:16:29 07/19/1907/18/2018 diffsam lopez l, blood ovalocytes SLIGHT abnormal Not Available [facility] [address] [place] [address], [address], 07/18/2018 11:16:29 07/19/1907/18/2018 diffsam lopez l, blood stomatocytes SLIGHT abnormal Not Available [facility] [address] [place] [address], [address], 07/18/2018 11:16:29 07/19/19 19 07/18/2018 kevine zunilda al, sam l, blood spherocytes SLIGHT abnormal Not Available [facility] [address] [place] [address], [address], 07/18/2018 11:16:29 07/19/19 19 07/18/2018 CMP, serum or plasm a glucose 94 mg/dL 74-100 normal Not Available [facility] [address] [place] [address], [address], 07/18/2018 11:16:24 07/19/19 19 07/18/2018 CMP, serum or plasm a blood urea nitrogen 16 mg/dL 6-20 normal Not Available [facility] [address] [place] [address], [address], 07/18/2018 11:16:24 07/19/19 19 07/18/2018 CMP, serum or plasm a creatinine 0.99 mg/dL 0.70-1 .25 normal Not Available [facility] [address] [place] [address], [address], 07/18/2018 11:16:24 07/19/1907/18/2018 CMP, serum or plasm a BUN/creatini ne ratio 16 (calc ) 10-20 normal Not Available [facility] [address] [place] [address], [address], 07/18/2018 11:16:24 07/19/1907/18/2018 CMP, serum or plasm a sodium 143 mmol/ L 136-14 5 normal Not Available [facility] [address] [place] [address], [address], 07/18/2018 11:16:24 07/19/1907/18/2018 CMP, serum or plasm a potassium 4.2 mmol/ L 3.4-5. 0 normal Not Available [facility] [address] [place] [address], [address], 07/18/2018 11:16:24 07/19/192019 CMP, serum or plasm a chloride 102 mmol/ L 98-107 normal Not Available [facility] [address] [place] [address], [address], 07/18/2018 11:16:24 07/19/19 19 07/18/2018 CMP, serum or plasm a carbon dioxide 27 mmol/ L 20-32 normal Not Available [facility] [address] [place] [address], [address], 07/18/2018 11:16:24 07/19/1907/18/2018 CMP, serum or plasm a anion gap 14 (calc ) 7-25 normal Not Available [facility] [address] [place] [address], [address], 07/18/2018 11:16:24 07/19/1907/18/2018 CMP, serum or plasm a calcium 9.7 mg/dL 8.6-10 .2 normal Not Available [facility] [address] [place] [address], [address], 07/18/2018 11:16:24 07/19/1907/18/2018 CMP, serum or plasm a total protein 6.6 g/dL 6.4-8. 3 normal Not Available [facility] [address] [place] [address], [address], 07/18/2018 11:16:24 07/19/1907/18/2018 CMP, serum or plasm a albumin 4.8 g/dL 3.5-5. 2 normal Not Available [facility] [address] [place] [address], [address], 07/18/2018 11:16:24 07/19/1907/18/2018 CMP, serum or plasm a globulin 1.8 g/dL_ (calc ) 1.5-4. 5 normal Not Available [facility] [address] [place] [address], [address], 07/18/2018 11:16:24 07/19/192019 CMP, serum or plasm a albumin/glob ulin ratio 2.7 (calc ) 1.1-2. 5 high Not Available [facility] [address] [place] [address], [address], 07/18/2018 11:16:24 07/19/19 19 07/18/2018 CMP, serum or plasm a bilirubin, total 0.5 mg/dL 0.1-1. 2 normal Not Available [facility] [address] [place] [address], [address], 07/18/2018 11:16:24 07/19/1907/18/2018 CMP, serum or plasm a alkaline phosphatase 86 U/L 40-130 normal Not Available [facility] [address] [place] [address], [address], 07/18/2018 11:16:24 07/19/1907/18/2018 CMP, serum or plasm a AST 25 U/L 0-40 normal Not Available [facility] [address] [place] [address], [address], 07/18/2018 11:16:24 07/19/1907/18/2018 CMP, serum or plasm a ALT 23 U/L 0-41 normal Not Available [facility] [address] [place] [address], [address], 07/18/2018 11:16:24 07/19/1907/18/2018 CMP, serum or plasm a GFR 89 >= 60 normal Not Available [facility] [address] [place] [address], [address], 07/18/2018 11:16:24 07/19/1907/18/2018 CMP, serum or plasm a GFR non- [...] month s or longe r. Not Available [facility] [address] [place] [address], [address], 07/18/2018 11:16:24 07/19/1907/18/2018 uric acid, serum or plasm a uric acid 4.8 mg/dL 4.0-7. 6 normal Not Available [facility] [address] [place] [address], [address], 07/18/2018 11:16:26 07/19/1907/18/2018 CBC w/ auto diff white blood cells 3.6 K/uL 3.8-10 .8 low Not Available [facility] [address] [place] [address], [address], 07/18/2018 11:16:27 07/19/1907/18/2018 CBC w/ auto diff red blood cells 5.12 M/uL 4.20-5 .80 normal Not Available [facility] [address] [place] [address], [address], 07/18/2018 11:16:27 07/19/1907/18/2018 CBC w/ auto diff hemoglobin 15.0 g/dL 14.0-1 8.0 normal Not Available [facility] [address] [place] [address], [address], 07/18/2018 11:16:27 07/19/1907/18/2018 CBC w/ auto diff hematocrit 42.0 % 40.0-5 2.0 normal Not Available [facility] [address] [place] [address], [address], 07/18/2018 11:16:27 07/19/1907/18/2018 CBC w/ auto diff MCV 82 fL 80-100 normal Not Available [facility] [address] [place] [address], [address], 07/18/2018 11:16:27 07/19/19 19 07/18/2018 CBC w/ auto diff MCH 29 pg 26-35 normal Not Available [facility] [address] [place] [address], [address], 07/18/2018 11:16:27 07/19/19 19 07/18/2018 CBC w/ auto diff MCHC 36 g/dL 32-36 normal Not Available [facility] [address] [place] [address], [address], 07/18/2018 11:16:27 07/19/19 19 07/18/2018 CBC w/ auto diff RDW 13.8 % 11.0-1 5.0 normal Not Available [facility] [address] [place] [address], [address], 07/18/2018 11:16:27 07/19/19 19 07/18/2018 CBC w/ auto diff MPV 6.8 fL 6.2-10 .5 normal Not Available [facility] [address] [place] [address], [address], 07/18/2018 11:16:27 07/19/19 19 07/18/2018 CBC w/ auto diff platelet count 154 K/uL 130-40 0 normal Not Available [facility] [address] [place] [address], [address], 07/18/2018 11:16:27 07/19/19 19 07/18/2018 CBC w/ auto diff neutrophil,a bsolute 1.7 K/uL 1.6-8. 4 normal Not Available [facility] [address] [place] [address], [address], 07/18/2018 11:16:27 07/19/19 19 07/18/2018 CBC w/ auto diff lymphocyte,a bsolute 1.2 K/uL 0.4-5. 1 normal Not Available [facility] [address] [place] [address], [address], 07/18/2018 11:16:27 07/19/19 19 07/18/2018 CBC w/ auto diff monocyte,abs olute 0.4 K/uL 0.0-1. 2 normal Not Available [facility] [address] [place] [address], [address], 07/18/2018 11:16:27 07/19/1907/18/2018 CBC w/ auto diff eosinophil,a bsolute 0.2 K/uL 0.0-0. 8 normal Not Available [facility] [address] [place] [address], [address], 07/18/2018 11:16:27 07/19/1907/18/2018 CBC w/ auto diff basophil,abs olute 0.0 K/uL 0.0-0. 3 normal Not Available [facility] [address] [place] [address], [address], 07/18/2018 11:16:27 07/19/1907/18/2018 CBC w/ auto diff % neutrophils 30.0 % 42.0-7 8.0 low Not Available [facility] [address] [place] [address], [address], 07/18/2018 11:16:27 07/19/1907/18/2018 CBC w/ auto diff % lymphocytes 34.0 % 11.0-4 7.0 normal Not Available [facility] [address] [place] [address], [address], 07/18/2018 11:16:27 07/19/1907/18/2018 CBC w/ auto diff % monocytes 12.0 % 0.0-11 .0 high Not Available [facility] [address] [place] [address], [address], 07/18/2018 11:16:27 07/19/1907/18/2018 CBC w/ auto diff % eosinophils 5.0 % 0.0-7. 0 normal Not Available [facility] [address] [place] [address], [address], 07/18/2018 11:16:27 07/19/19 19 07/18/2018 CBC w/ auto diff % basophils 0.0 % 0.0-3. 0 normal Not Available [facility] [address] [place] [address], [address], 07/18/2018 11:16:27 07/19/19 19 07/18/2018 CBC w/ auto diff nucleated red cells 0.6 % 0.0-0. 9 normal Not Available [facility] [address] [place] [address], [address], 07/18/2018 11:16:27 07/19/1907/18/2018 CBC w/ auto diff nucleated RBCs, absolute 0.02 K/uL not estab. normal Not Available [facility] [address] [place] [address], [address], 07/18/2018 11:16:27 07/19/1907/18/2018 ldh, serum or plasm a LDH 239 U/L 135-22 5 high Not Available [facility] [address] [place] [address], [address], 07/18/2018 11:26:42 08/05/1908/04/2018 sam dos santos, blood manual differential PERFOR MED normal Not Available [facility] [address] [place] [address], [address], 08/04/2018 10:21:28 08/05/1908/04/2018 sam dos santos, blood % band neutrophils 4.0 % 0.0-7. 0 normal Not Available [facility] [address] [place] [address], [address], 08/04/2018 10:21:28 08/05/1908/04/2018 diffsam lopez, blood % atypical lymphocytes 0 % 0-1 normal Not Available [facility] [address] [place] [address], [address], 08/04/2018 10:21:28 08/05/19 19 08/04/2018 diffsam lopez l, blood % metamyelocyt es 2 % 0-1 high Not Available [facility] [address] [place] [address], [address], 08/04/2018 10:21:28 08/05/19 19 08/04/2018 diffsam lopez l, blood % myelocytes 0 % 0-1 normal Not Available [facility] [address] [place] [address], [address], 08/04/2018 10:21:28 08/05/19 19 08/04/2018 diffsam lopez l, blood % promyelocyte s 0 % normal Not Available [facility] [address] [place] [address], [address], 08/04/2018 10:21:28 08/05/1908/04/2018 diffsam lopez, blood % blast 0 % normal Not Available [facility] [address] [place] [address], [address], 08/04/2018 10:21:28 08/05/1908/04/2018 diffsam lopez l, blood nucleated red cells 0 /100_ WBC normal Not Available [facility] [address] [place] [address], [address], 08/04/2018 10:21:28 08/05/1908/04/2018 diffsam lopez l, blood smudge cells 0 normal Not Available [facility] [address] [place] [address], [address], 08/04/2018 10:21:28 08/05/1908/04/2018 sam dos santos l, blood RBC morphology NORMAL normal Not Available [facility] [address] [place] [address], [address], 08/04/2018 10:21:28 08/05/19 19 08/04/2018 sam dos santos l, blood platelet morphology NORMAL normal Not Available [facility] [address] [place] [address], [address], 08/04/2018 10:21:28 08/05/1908/04/2018 CMP, serum or plasm a glucose 89 mg/dL 74-100 normal Not Available [facility] [address] [place] [address], [address], 08/04/2018 10:19:29 08/05/1908/04/2018 CMP, serum or plasm a blood urea nitrogen 19 mg/dL 6-20 normal Not Available [facility] [address] [place] [address], [address], 08/04/2018 10:19:29 08/05/1908/04/2018 CMP, serum or plasm a creatinine 1.01 mg/dL 0.70-1 .25 normal Not Available [facility] [address] [place] [address], [address], 08/04/2018 10:19:29 08/05/1908/04/2018 CMP, serum or plasm a BUN/creatini ne ratio 19 (calc ) 10-20 normal Not Available [facility] [address] [place] [address], [address], 08/04/2018 10:19:29 08/05/1908/04/2018 CMP, serum or plasm a sodium 144 mmol/ L 136-14 5 normal Not Available [facility] [address] [place] [address], [address], 08/04/2018 10:19:29 08/05/1908/04/2018 CMP, serum or plasm a potassium 4.5 mmol/ L 3.4-5. 0 normal Not Available [facility] [address] [place] [address], [address], 08/04/2018 10:19:29 08/05/1908/04/2018 CMP, serum or plasm a chloride 104 mmol/ L 98-107 normal Not Available [facility] [address] [place] [address], [address], 08/04/2018 10:19:29 08/05/1908/04/2018 CMP, serum or plasm a carbon dioxide 27 mmol/ L 20-32 normal Not Available [facility] [address] [place] [address], [address], 08/04/2018 10:19:29 08/05/1908/04/2018 CMP, serum or plasm a anion gap 13 (calc ) 7-25 normal Not Available [facility] [address] [place] [address], [address], 08/04/2018 10:19:29 08/05/1908/04/2018 CMP, serum or plasm a calcium 9.2 mg/dL 8.6-10 .2 normal Not Available [facility] [address] [place] [address], [address], 08/04/2018 10:19:29 08/05/1908/04/2018 CMP, serum or plasm a total protein 6.3 g/dL 6.4-8. 3 low Not Available [facility] [address] [place] [address], [address], 08/04/2018 10:19:29 08/05/1908/04/2018 CMP, serum or plasm a albumin 4.6 g/dL 3.5-5. 2 normal Not Available [facility] [address] [place] [address], [address], 08/04/2018 10:19:29 08/05/1908/04/2018 CMP, serum or plasm a globulin 1.7 g/dL_ (calc ) 1.5-4. 5 normal Not Available [facility] [address] [place] [address], [address], 08/04/2018 10:19:29 08/05/1908/04/2018 CMP, serum or plasm a albumin/glob ulin ratio 2.7 (calc ) 1.1-2. 5 high Not Available [facility] [address] [place] [address], [address], 08/04/2018 10:19:29 08/05/1908/04/2018 CMP, serum or plasm a bilirubin, total 0.4 mg/dL 0.1-1. 2 normal Not Available [facility] [address] [place] [address], [address], 08/04/2018 10:19:29 08/05/1908/04/2018 CMP, serum or plasm a alkaline phosphatase 81 U/L 40-130 normal Not Available [facility] [address] [place] [address], [address], 08/04/2018 10:19:29 08/05/1908/04/2018 CMP, serum or plasm a AST 22 U/L 0-40 normal Not Available [facility] [address] [place] [address], [address], 08/04/2018 10:19:29 08/05/1908/04/2018 CMP, serum or plasm a ALT 22 U/L 0-41 normal Not Available [facility] [address] [place] [address], [address], 08/04/2018 10:19:29 08/05/1908/04/2018 CMP, serum or plasm a GFR 87 >= 60 normal Not Available [facility] [address] [place] [address], [address], 08/04/2018 10:19:29 08/05/1908/04/2018 CMP, serum or plasm a GFR non- 75 >= 60 normal NOT E NEW calcu [...] month s or longe r. Not Available [facility] [address] [place] [address], [address], 08/04/2018 10:19:29 08/05/1908/04/2018 CBC w/ auto diff white blood cells 4.2 K/uL 3.8-10 .8 normal Not Available [facility] [address] [place] [address], [address], 08/04/2018 10:21:26 08/05/1908/04/2018 CBC w/ auto diff red blood cells 4.82 M/uL 4.20-5 .80 normal Not Available [facility] [address] [place] [address], [address], 08/04/2018 10:21:26 08/05/1908/04/2018 CBC w/ auto diff hemoglobin 14.2 g/dL 14.0-1 8.0 normal Not Available [facility] [address] [place] [address], [address], 08/04/2018 10:21:26 08/05/1908/04/2018 CBC w/ auto diff hematocrit 39.8 % 40.0-5 2.0 low Not Available [facility] [address] [place] [address], [address], 08/04/2018 10:21:26 08/05/19 19 08/04/2018 CBC w/ auto diff MCV 83 fL 80-100 normal Not Available [facility] [address] [place] [address], [address], 08/04/2018 10:21:26 08/05/19 19 08/04/2018 CBC w/ auto diff MCH 30 pg 26-35 normal Not Available [facility] [address] [place] [address], [address], 08/04/2018 10:21:26 08/05/19 19 08/04/2018 CBC w/ auto diff MCHC 36 g/dL 32-36 normal Not Available [facility] [address] [place] [address], [address], 08/04/2018 10:21:26 08/05/19 19 08/04/2018 CBC w/ auto diff RDW 14.0 % 11.0-1 5.0 normal Not Available [facility] [address] [place] [address], [address], 08/04/2018 10:21:26 08/05/19 19 08/04/2018 CBC w/ auto diff MPV 6.8 fL 6.2-10 .5 normal Not Available [facility] [address] [place] [address], [address], 08/04/2018 10:21:26 08/05/19 19 08/04/2018 CBC w/ auto diff platelet count 151 K/uL 130-40 0 normal Not Available [facility] [address] [place] [address], [address], 08/04/2018 10:21:26 08/05/19 19 08/04/2018 CBC w/ auto diff neutrophil,a bsolute 2.2 K/uL 1.6-8. 4 normal Not Available [facility] [address] [place] [address], [address], 08/04/2018 10:21:26 08/05/19 19 08/04/2018 CBC w/ auto diff lymphocyte,a bsolute 1.2 K/uL 0.4-5. 1 normal Not Available [facility] [address] [place] [address], [address], 08/04/2018 10:21:26 08/05/19 19 08/04/2018 CBC w/ auto diff monocyte,abs olute 0.6 K/uL 0.0-1. 2 normal Not Available [facility] [address] [place] [address], [address], 08/04/2018 10:21:26 08/05/19 19 08/04/2018 CBC w/ auto diff eosinophil,a bsolute 0.1 K/uL 0.0-0. 8 normal Not Available [facility] [address] [place] [address], [address], 08/04/2018 10:21:26 08/05/19 19 08/04/2018 CBC w/ auto diff basophil,abs olute 0.0 K/uL 0.0-0. 3 normal Not Available [facility] [address] [place] [address], [address], 08/04/2018 10:21:26 08/05/19 19 08/04/2018 CBC w/ auto diff % neutrophils 48.0 % 42.0-7 8.0 normal Not Available [facility] [address] [place] [address], [address], 08/04/2018 10:21:26 08/05/19 19 08/04/2018 CBC w/ auto diff % lymphocytes 28.0 % 11.0-4 7.0 normal Not Available [facility] [address] [place] [address], [address], 08/04/2018 10:21:26 08/05/19 19 08/04/2018 CBC w/ auto diff % monocytes 15.0 % 0.0-11 .0 high Not Available [facility] [address] [place] [address], [address], 08/04/2018 10:21:26 08/05/19 19 08/04/2018 CBC w/ auto diff % eosinophils 2.0 % 0.0-7. 0 normal Not Available [facility] [address] [place] [address], [address], 08/04/2018 10:21:26 08/05/19 19 08/04/2018 CBC w/ auto diff % basophils 1.0 % 0.0-3. 0 normal Not Available [facility] [address] [place] [address], [address], 08/04/2018 10:21:26 08/05/19 19 08/04/2018 CBC w/ auto diff nucleated red cells 0.1 % 0.0-0. 9 normal Not Available [facility] [address] [place] [address], [address], 08/04/2018 10:21:26 08/05/1908/04/2018 CBC w/ auto diff nucleated RBCs, absolute 0.01 K/uL not estab. normal Not Available [facility] [address] [place] [address], [address], 08/04/2018 10:21:26 09/08/19 19 09/07/2018 CBC w/ auto diff white blood cells 4.5 K/uL 3.8-10 .8 normal Not Available [facility] [address] [place] [address], [address], 09/07/2018 12:42:51 09/08/1909/07/2018 CBC w/ auto diff red blood cells 4.89 M/uL 4.20-5 .80 normal Not Available [facility] [address] [place] [address], [address], 09/07/2018 12:42:51 09/08/1909/07/2018 CBC w/ auto diff hemoglobin 14.5 g/dL 14.0-1 8.0 normal Not Available [facility] [address] [place] [address], [address], 09/07/2018 12:42:51 09/08/1909/07/2018 CBC w/ auto diff hematocrit 41.3 % 40.0-5 2.0 normal Not Available [facility] [address] [place] [address], [address], 09/07/2018 12:42:51 09/08/19 19 09/07/2018 CBC w/ auto diff MCV 84 fL 80-100 normal Not Available [facility] [address] [place] [address], [address], 09/07/2018 12:42:51 09/08/19 19 09/07/2018 CBC w/ auto diff MCH 30 pg 26-35 normal Not Available [facility] [address] [place] [address], [address], 09/07/2018 12:42:51 09/08/1909/07/2018 CBC w/ auto diff MCHC 35 g/dL 32-36 normal Not Available [facility] [address] [place] [address], [address], 09/07/2018 12:42:51 09/08/19 19 09/07/2018 CBC w/ auto diff RDW 14.2 % 11.0-1 5.0 normal Not Available [facility] [address] [place] [address], [address], 09/07/2018 12:42:51 09/08/19 19 09/07/2018 CBC w/ auto diff MPV 6.9 fL 6.2-10 .5 normal Not Available [facility] [address] [place] [address], [address], 09/07/2018 12:42:51 09/08/19 19 09/07/2018 CBC w/ auto diff platelet count 160 K/uL 130-40 0 normal Not Available [facility] [address] [place] [address], [address], 09/07/2018 12:42:51 09/08/19 19 09/07/2018 CBC w/ auto diff neutrophil,a bsolute 2.5 K/uL 1.6-8. 4 normal Not Available [facility] [address] [place] [address], [address], 09/07/2018 12:42:51 09/08/19 19 09/07/2018 CBC w/ auto diff lymphocyte,a bsolute 1.2 K/uL 0.4-5. 1 normal Not Available [facility] [address] [place] [address], [address], 09/07/2018 12:42:51 09/08/19 19 09/07/2018 CBC w/ auto diff monocyte,abs olute 0.4 K/uL 0.0-1. 2 normal Not Available [facility] [address] [place] [address], [address], 09/07/2018 12:42:51 09/08/19 19 09/07/2018 CBC w/ auto diff eosinophil,a bsolute 0.2 K/uL 0.0-0. 8 normal Not Available [facility] [address] [place] [address], [address], 09/07/2018 12:42:51 09/08/19 19 09/07/2018 CBC w/ auto diff basophil,abs olute 0.1 K/uL 0.0-0. 3 normal Not Available [facility] [address] [place] [address], [address], 09/07/2018 12:42:51 09/08/19 19 09/07/2018 CBC w/ auto diff % neutrophils 56.3 % 42.0-7 8.0 normal Not Available [facility] [address] [place] [address], [address], 09/07/2018 12:42:51 09/08/19 19 09/07/2018 CBC w/ auto diff % lymphocytes 27.4 % 11.0-4 7.0 normal Not Available [facility] [address] [place] [address], [address], 09/07/2018 12:42:51 09/08/19 19 09/07/2018 CBC w/ auto diff % monocytes 9.7 % 0.0-11 .0 normal Not Available [facility] [address] [place] [address], [address], 09/07/2018 12:42:51 09/08/1909/07/2018 CBC w/ auto diff % eosinophils 5.0 % 0.0-7. 0 normal Not Available [facility] [address] [place] [address], [address], 09/07/2018 12:42:51 09/08/19 19 09/07/2018 CBC w/ auto diff % basophils 1.6 % 0.0-3. 0 normal Not Available [facility] [address] [place] [address], [address], 09/07/2018 12:42:51 09/08/19 19 09/07/2018 CBC w/ auto diff nucleated red cells 0.2 % 0.0-0. 9 normal Not Available [facility] [address] [place] [address], [address], 09/07/2018 12:42:51 09/08/1909/07/2018 CBC w/ auto diff nucleated RBCs, absolute 0.01 K/uL not estab. normal Not Available [facility] [address] [place] [address], [address], 09/07/2018 12:42:51 09/08/1909/07/2018 CMP, serum or plasm a glucose 95 mg/dL 74-100 normal Not Available [facility] [address] [place] [address], [address], 09/07/2018 13:06:40 09/08/19 19 09/07/2018 CMP, serum or plasm a blood urea nitrogen 17 mg/dL 6-20 normal Not Available [facility] [address] [place] [address], [address], 09/07/2018 13:06:40 09/08/19 19 09/07/2018 CMP, serum or plasm a creatinine 0.95 mg/dL 0.70-1 .25 normal Not Available [facility] [address] [place] [address], [address], 09/07/2018 13:06:40 09/08/19 19 09/07/2018 CMP, serum or plasm a BUN/creatini ne ratio 18 (calc ) 10-20 normal Not Available [facility] [address] [place] [address], [address], 09/07/2018 13:06:40 09/08/19 19 09/07/2018 CMP, serum or plasm a sodium 144 mmol/ L 136-14 5 normal Not Available [facility] [address] [place] [address], [address], 09/07/2018 13:06:40 09/08/19 19 09/07/2018 CMP, serum or plasm a potassium 4.3 mmol/ L 3.4-5. 0 normal Not Available [facility] [address] [place] [address], [address], 09/07/2018 13:06:40 09/08/19 19 09/07/2018 CMP, serum or plasm a chloride 104 mmol/ L 98-107 normal Not Available [facility] [address] [place] [address], [address], 09/07/2018 13:06:40 09/08/19 19 09/07/2018 CMP, serum or plasm a carbon dioxide 27 mmol/ L 20-32 normal Not Available [facility] [address] [place] [address], [address], 09/07/2018 13:06:40 09/08/1909/07/2018 CMP, serum or plasm a anion gap 13 (calc ) 7-25 normal Not Available [facility] [address] [place] [address], [address], 09/07/2018 13:06:40 09/08/19 19 09/07/2018 CMP, serum or plasm a calcium 9.2 mg/dL 8.6-10 .2 normal Not Available [facility] [address] [place], [address], 09/07/2018 13:06:40 09/08/19 19 09/07/2018 CMP, serum or plasm a total protein 6.4 g/dL 6.4-8. 3 normal Not Available [facility] [address] [place] [address], [address], 09/07/2018 13:06:40 09/08/19 19 09/07/2018 CMP, serum or plasm a albumin 4.7 g/dL 3.5-5. 2 normal Not Available [facility] [address] [place] [address], [address], 09/07/2018 13:06:40 09/08/19 19 09/07/2018 CMP, serum or plasm a globulin 1.7 g/dL_ (calc ) 1.5-4. 5 normal Not Available [facility] [address] [place] [address], [address], 09/07/2018 13:06:40 09/08/19 19 09/07/2018 CMP, serum or plasm a albumin/glob ulin ratio 2.8 (calc ) 1.1-2. 5 high Not Available [facility] [address] [place] [address], [address], 09/07/2018 13:06:40 09/08/19 19 09/07/2018 CMP, serum or plasm a bilirubin, total 0.4 mg/dL 0.1-1. 2 normal Not Available [facility] [address] [place] [address], [address], 09/07/2018 13:06:40 09/08/19 19 09/07/2018 CMP, serum or plasm a alkaline phosphatase 85 U/L 40-130 normal Not Available [facility] [address] [place] [address], [address], 09/07/2018 13:06:40 09/08/19 19 09/07/2018 CMP, serum or plasm a AST 24 U/L 0-40 normal Not Available [facility] [address] [place], [address], 09/07/2018 13:06:40 09/08/19 19 09/07/2018 CMP, serum or plasm a ALT 23 U/L 0-41 normal Not Available [facility] [address] [place] [address], [address], 09/07/2018 13:06:40 09/08/19 19 09/07/2018 CMP, serum or plasm a GFR 93 >= 60 normal Not Available [facility] [address] [place] [address], [address], 09/07/2018 13:06:40 09/08/19 19 09/07/2018 CMP, serum or plasm a GFR non- [...] month s or longe r. Not Available [facility] [address] [place], [address], 09/07/2018 13:06:40 12/08/19 19 12/07/2018 CMP, serum or plasm a glucose 98 mg/dL 74-100 normal Not Available [facility] [address] [place], [address], 12/07/2018 12:20:35 12/08/19 19 12/07/2018 CMP, serum or plasm a blood urea nitrogen 19 mg/dL 6-20 normal Not Available [facility] [address] [place], [address], 12/07/2018 12:20:35 12/08/1912/07/2018 CMP, serum or plasm a creatinine 1.01 mg/dL 0.70-1 .25 normal Not Available [facility] [address] [place] [address], [address], 12/07/2018 12:20:35 12/08/1912/07/2018 CMP, serum or plasm a BUN/creatini ne ratio 19 (calc ) 10-20 normal Not Available [facility] [address] [place] [address], [address], 12/07/2018 12:20:35 12/08/1912/07/2018 CMP, serum or plasm a sodium 141 mmol/ L 136-14 5 normal Not Available [facility] [address] [place] [address], [address], 12/07/2018 12:20:35 12/08/1912/07/2018 CMP, serum or plasm a potassium 4.8 mmol/ L 3.4-5. 0 normal Not Available [facility] [address] [place] [address], [address], 12/07/2018 12:20:35 12/08/1912/07/2018 CMP, serum or plasm a chloride 101 mmol/ L 98-107 normal Not Available [facility] [address] [place] [address], [address], 12/07/2018 12:20:35 12/08/1912/07/2018 CMP, serum or plasm a carbon dioxide 27 mmol/ L 20-32 normal Not Available [facility] [address] [place] [address], [address], 12/07/2018 12:20:35 12/08/1912/07/2018 CMP, serum or plasm a anion gap 13 (calc ) 7-25 normal Not Available [facility] [address] [place] [address], [address], 12/07/2018 12:20:35 12/08/19 19 12/07/2018 CMP, serum or plasm a calcium 9.7 mg/dL 8.6-10 .2 normal Not Available [facility] [address] [place] [address], [address], 12/07/2018 12:20:35 12/08/19 19 12/07/2018 CMP, serum or plasm a total protein 6.5 g/dL 6.4-8. 3 normal Not Available [facility] [address] [place] [address], [address], 12/07/2018 12:20:35 12/08/19 19 12/07/2018 CMP, serum or plasm a albumin 4.8 g/dL 3.5-5. 2 normal Not Available [facility] [address] [place] [address], [address], 12/07/2018 12:20:35 12/08/19 19 12/07/2018 CMP, serum or plasm a globulin 1.7 g/dL_ (calc ) 1.5-4. 5 normal Not Available [facility] [address] [place] [address], [address], 12/07/2018 12:20:35 12/08/19 19 12/07/2018 CMP, serum or plasm a albumin/glob ulin ratio 2.8 (calc ) 1.1-2. 5 high Not Available [facility] [address] [place] [address], [address], 12/07/2018 12:20:35 12/08/19 19 12/07/2018 CMP, serum or plasm a bilirubin, total 0.4 mg/dL 0.1-1. 2 normal Not Available [facility] [address] [place] [address], [address], 12/07/2018 12:20:35 12/08/19 19 12/07/2018 CMP, serum or plasm a alkaline phosphatase 88 U/L 40-130 normal Not Available [facility] [address] [place] [address] [place], [address], 12/07/2018 12:20:35 12/08/19 19 12/07/2018 CMP, serum or plasm a AST 27 U/L 0-40 normal Not Available [facility] [address] [place] [address], [address], 12/07/2018 12:20:35 12/08/19 19 12/07/2018 CMP, serum or plasm a ALT 22 U/L 0-41 normal Not Available [facility] [address] [place] [address], [address], 12/07/2018 12:20:35 12/08/1912/07/2018 CMP, serum or plasm a GFR 86 >= 60 normal Not Available [facility] [address] [place] [address], [address], 12/07/2018 12:20:35 12/08/19 19 12/07/2018 CMP, serum or plasm a GFR non- 75 >= 60 normal NOT E NEW calcu [...] month s or longe r. Not Available [facility] [address] [place] [address], [address], 12/07/2018 12:20:35 12/08/1912/07/2018 CBC w/ auto diff white blood cells 5.5 K/uL 3.8-10 .8 normal Not Available [facility] [address] [place] [address], [address], 12/07/2018 11:54:06 12/08/1912/07/2018 CBC w/ auto diff red blood cells 4.97 M/uL 4.20-5 .80 normal Not Available [facility] [address] [place] [address], [address], 12/07/2018 11:54:06 12/08/19 19 12/07/2018 CBC w/ auto diff hemoglobin 14.8 g/dL 14.0-1 8.0 normal Not Available [facility] [address] [place] [address], [address], 12/07/2018 11:54:06 12/08/1912/07/2018 CBC w/ auto diff hematocrit 42.4 % 40.0-5 2.0 normal Not Available [facility] [address] [place] [address], [address], 12/07/2018 11:54:06 12/08/1912/07/2018 CBC w/ auto diff MCV 85 fL 80-100 normal Not Available [facility] [address] [place] [address], [address], 12/07/2018 11:54:06 12/08/1912/07/2018 CBC w/ auto diff MCH 30 pg 26-35 normal Not Available [facility] [address] [place] [address], [address], 12/07/2018 11:54:06 12/08/1912/07/2018 CBC w/ auto diff MCHC 35 g/dL 32-36 normal Not Available [facility] [address] [place] [address], [address], 12/07/2018 11:54:06 12/08/1912/07/2018 CBC w/ auto diff RDW 13.7 % 11.0-1 5.0 normal Not Available [facility] [address] [place] [address], [address], 12/07/2018 11:54:06 12/08/1912/07/2018 CBC w/ auto diff MPV 6.8 fL 6.2-10 .5 normal Not Available [facility] [address] [place] [address], [address], 12/07/2018 11:54:06 12/08/1912/07/2018 CBC w/ auto diff platelet count 152 K/uL 130-40 0 normal Not Available [facility] [address] [place] [address], [address], 12/07/2018 11:54:06 12/08/1912/07/2018 CBC w/ auto diff neutrophil,a bsolute 3.5 K/uL 1.6-8. 4 normal Not Available [facility] [address] [place] [address], [address], 12/07/2018 11:54:06 12/08/1912/07/2018 CBC w/ auto diff lymphocyte,a bsolute 1.2 K/uL 0.4-5. 1 normal Not Available [facility] [address] [place] [address], [address], 12/07/2018 11:54:06 12/08/1912/07/2018 CBC w/ auto diff monocyte,abs olute 0.5 K/uL 0.0-1. 2 normal Not Available [facility] [address] [place] [address], [address], 12/07/2018 11:54:06 12/08/1912/07/2018 CBC w/ auto diff eosinophil,a bsolute 0.2 K/uL 0.0-0. 8 normal Not Available [facility] [address] [place] [address], [address], 12/07/2018 11:54:06 12/08/1912/07/2018 CBC w/ auto diff basophil,abs olute 0.1 K/uL 0.0-0. 3 normal Not Available [facility] [address] [place] [address], [address], 12/07/2018 11:54:06 12/08/1912/07/2018 CBC w/ auto diff % neutrophils 64.5 % 42.0-7 8.0 normal Not Available [facility] [address] [place] [address], [address], 12/07/2018 11:54:06 12/08/1912/07/2018 CBC w/ auto diff % lymphocytes 21.8 % 11.0-4 7.0 normal Not Available [facility] [address] [place] [address], [address], 12/07/2018 11:54:06 12/08/1912/07/2018 CBC w/ auto diff % monocytes 8.5 % 0.0-11 .0 normal Not Available [facility] [address] [place] [address], [address], 12/07/2018 11:54:06 12/08/1912/07/2018 CBC w/ auto diff % eosinophils 4.0 % 0.0-7. 0 normal Not Available [facility] [address] [place] [address], [address], 12/07/2018 11:54:06 12/08/1912/07/2018 CBC w/ auto diff % basophils 1.2 % 0.0-3. 0 normal Not Available [facility] [address] [place] [address], [address], 12/07/2018 11:54:12/08/1912/07/2018 CBC w/ auto diff nucleated red cells 0.2 % 0.0-0. 9 normal Not Available [facility] [address] [place] [address], [address], 12/07/2018 11:54:12/08/1912/07/2018 CBC w/ auto diff nucleated RBCs, absolute 0.01 K/uL not estab. normal Not Available [facility] [address] [place] [address], [address], 12/07/2018 11:54:06 03/13/20 19 03/13/2019 CMP, serum or plasm a glucose 101 mg/dL 74-100 high Not Available [facility] [address] [place] [address], [address], 03/13/2019 09:19:28 03/13/20 19 03/13/2019 CMP, serum or plasm a blood urea nitrogen 19 mg/dL 6-20 normal Not Available [facility] [address] [place] [address], [address], 03/13/2019 09:19:28 03/13/2003/13/2019 CMP, serum or plasm a creatinine 0.95 mg/dL 0.70-1 .25 normal Not Available [facility] [address] [place] [address], [address], 03/13/2019 09:19:28 03/13/2003/13/2019 CMP, serum or plasm a BUN/creatini ne ratio 20 (calc ) 10-20 normal Not Available [facility] [address] [place] [address], [address], 03/13/2019 09:19:28 03/13/2003/13/2019 CMP, serum or plasm a sodium 141 mmol/ L 136-14 5 normal Not Available [facility] [address] [place] [address], [address], 03/13/2019 09:19:28 03/13/2003/13/2019 CMP, serum or plasm a potassium 4.6 mmol/ L 3.4-5. 0 normal Not Available [facility] [address] [place] [address], [address], 03/13/2019 09:19:28 03/13/2003/13/2019 CMP, serum or plasm a chloride 102 mmol/ L 98-107 normal Not Available [facility] [address] [place] [address], [address], 03/13/2019 09:19:28 03/13/20 19 03/13/2019 CMP, serum or plasm a carbon dioxide 29 mmol/ L 20-32 normal Not Available [facility] [address] [place] [address], [address], 03/13/2019 09:19:28 03/13/20 19 03/13/2019 CMP, serum or plasm a anion gap 10 (calc ) 7-25 normal Not Available [facility] [address] [place] [address], [address], 03/13/2019 09:19:28 03/13/20 19 03/13/2019 CMP, serum or plasm a calcium 9.6 mg/dL 8.6-10 .2 normal Not Available [facility] [address] [place] [address], [address], 03/13/2019 09:19:28 03/13/20 19 03/13/2019 CMP, serum or plasm a total protein 7.0 g/dL 6.4-8. 3 normal Not Available [facility] [address] [place] [address], [address], 03/13/2019 09:19:28 03/13/2003/13/2019 CMP, serum or plasm a albumin 4.9 g/dL 3.5-5. 2 normal Not Available [facility] [address] [place] [address], [address], 03/13/2019 09:19:28 03/13/2003/13/2019 CMP, serum or plasm a globulin 2.1 g/dL_ (calc ) 1.5-4. 5 normal Not Available [facility] [address] [place] [address], [address], 03/13/2019 09:19:28 03/13/20 19 03/13/2019 CMP, serum or plasm a albumin/glob ulin ratio 2.3 (calc ) 1.1-2. 5 normal Not Available [facility] [address] [place] [address], [address], 03/13/2019 09:19:28 03/13/2003/13/2019 CMP, serum or plasm a bilirubin, total 0.5 mg/dL 0.1-1. 2 normal Not Available [facility] [address] [place], [address], 03/13/2019 09:19:28 03/13/2003/13/2019 CMP, serum or plasm a alkaline phosphatase 97 U/L 40-130 normal Not Available [facility] [address] [place], [address], 03/13/2019 09:19:28 03/13/2003/13/2019 CMP, serum or plasm a AST 24 U/L 0-40 normal Not Available [facility] [address] [place] [address], [address], 03/13/2019 09:19:28 03/13/2003/13/2019 CMP, serum or plasm a ALT 21 U/L 0-41 normal Not Available [facility] [address] [place], [address], 03/13/2019 09:19:28 03/13/2003/13/2019 CMP, serum or plasm a GFR 93 >= 60 normal Not Available [facility] [address] [place], [address], 03/13/2019 09:19:28 03/13/2003/13/2019 CMP, serum or plasm [...] month s or longe r. Not Available [facility] [address] [place] [address], [address], 03/13/2019 09:19:28 03/13/2003/13/2019 CBC w/ auto diff white blood cells 5.3 K/uL 3.8-10 .8 normal Not Available [facility] [address] [place] [address], [address], 03/13/2019 08:52:01 03/13/2003/13/2019 CBC w/ auto diff red blood cells 5.35 M/uL 4.20-5 .80 normal Not Available [facility] [address] [place] [address], [address], 03/13/2019 08:52:01 03/13/2003/13/2019 CBC w/ auto diff hemoglobin 15.6 g/dL 14.0-1 8.0 normal Not Available [facility] [address] [place] [address], [address], 03/13/2019 08:52:01 03/13/2003/13/2019 CBC w/ auto diff hematocrit 45.3 % 40.0-5 2.0 normal Not Available [facility] [address] [place] [address], [address], 03/13/2019 08:52:01 03/13/2003/13/2019 CBC w/ auto diff MCV 85 fL 80-100 normal Not Available [facility] [address] [place] [address], [address], 03/13/2019 08:52:01 03/13/2003/13/2019 CBC w/ auto diff MCH 29 pg 26-35 normal Not Available [facility] [address] [place] [address], [address], 03/13/2019 08:52:01 03/13/2003/13/2019 CBC w/ auto diff MCHC 35 g/dL 32-36 normal Not Available [facility] [address] [place] [address], [address], 03/13/2019 08:52:01 03/13/2003/13/2019 CBC w/ auto diff RDW 13.7 % 11.0-1 5.0 normal Not Available [facility] [address] [place] [address], [address], 03/13/2019 08:52:01 03/13/2003/13/2019 CBC w/ auto diff MPV 7.3 fL 6.2-10 .5 normal Not Available [facility] [address] [place] [address], [address], 03/13/2019 08:52:01 03/13/2003/13/2019 CBC w/ auto diff platelet count 176 K/uL 130-40 0 normal Not Available [facility] [address] [place] [address], [address], 03/13/2019 08:52:01 03/13/2003/13/2019 CBC w/ auto diff neutrophil,a bsolute 3.2 K/uL 1.6-8. 4 normal Not Available [facility] [address] [place] [address], [address], 03/13/2019 08:52:01 03/13/2003/13/2019 CBC w/ auto diff lymphocyte,a bsolute 1.6 K/uL 0.4-5. 1 normal Not Available [facility] [address] [place] [address], [address], 03/13/2019 08:52:01 03/13/2003/13/2019 CBC w/ auto diff monocyte,abs olute 0.4 K/uL 0.0-1. 2 normal Not Available [facility] [address] [place] [address], [address], 03/13/2019 08:52:01 03/13/2003/13/2019 CBC w/ auto diff eosinophil,a bsolute 0.2 K/uL 0.0-0. 8 normal Not Available [facility] [address] [place] [address], [address], 03/13/2019 08:52:01 03/13/2003/13/2019 CBC w/ auto diff basophil,abs olute 0.1 K/uL 0.0-0. 3 normal Not Available [facility] [address] [place] [address], [address], 03/13/2019 08:52:01 03/13/2003/13/2019 CBC w/ auto diff % neutrophils 60.0 % 42.0-7 8.0 normal Not Available [facility] [address] [place] [address], [address], 03/13/2019 08:52:01 03/13/2003/13/2019 CBC w/ auto diff % lymphocytes 29.4 % 11.0-4 7.0 normal Not Available [facility] [address] [place] [address], [address], 03/13/2019 08:52:01 03/13/2003/13/2019 CBC w/ auto diff % monocytes 6.7 % 0.0-11 .0 normal Not Available [facility] [address] [place] [address], [address], 03/13/2019 08:52:01 03/13/2003/13/2019 CBC w/ auto diff % eosinophils 2.9 % 0.0-7. 0 normal Not Available [facility] [address] [place] [address], [address], 03/13/2019 08:52:01 03/13/2003/13/2019 CBC w/ auto diff % basophils 1.0 % 0.0-3. 0 normal Not Available [facility] [address] [place] [address], [address], 03/13/2019 08:52:01 03/13/2003/1303/13/2019 CBC w/ auto diff nucleated red cells 0.1 % 0.0-0. 9 normal Not Available [facility] [address] [place] [address], [address], 03/13/2019 08:52:01 03/13/20 19 03/13/2019 CBC w/ auto diff nucleated RBCs, absolute 0.00 K/uL not estab. normal Not Available [facility] [address] [place] [address], [address], 03/13/2019 08:52:01 09/10/19 20 09/10/2019 CMP, serum or plasm a glucose 106 mg/dL 74-100 high Not Available [facility] [address] [place] [address], [address], 09/10/2019 09:47:35 09/10/19 20 09/10/2019 CMP, serum or plasm a blood urea nitrogen 17 mg/dL 6-20 normal Not Available [facility] [address] [place] [address], [address], 09/10/2019 09:47:35 09/10/1909/10/2019 CMP, serum or plasm a creatinine 1.01 mg/dL 0.70-1 .25 normal Not Available [facility] [address] [place] [address], [address], 09/10/2019 09:47:35 09/10/19 20 09/10/2019 CMP, serum or plasm a BUN/creatini ne ratio 17 (calc ) 10-20 normal Not Available [facility] [address] [place] [address], [address], 09/10/2019 09:47:35 09/10/1909/10/2019 CMP, serum or plasm a sodium 140 mmol/ L 136-14 5 normal Not Available [facility] [address] [place] [address], [address], 09/10/2019 09:47:35 09/10/19 20 09/10/2019 CMP, serum or plasm a potassium 4.3 mmol/ L 3.4-5. 0 normal Not Available [facility] [address] [place] [address], [address], 09/10/2019 09:47:35 09/10/1909/10/2019 CMP, serum or plasm a chloride 101 mmol/ L 98-107 normal Not Available [facility] [address] [place] [address], [address], 09/10/2019 09:47:35 09/10/1909/10/2019 CMP, serum or plasm a carbon dioxide 29 mmol/ L 20-32 normal Not Available [facility] [address] [place] [address], [address], 09/10/2019 09:47:35 09/10/1909/10/2019 CMP, serum or plasm a anion gap 10 (calc ) 7-25 normal Not Available [facility] [address] [place] [address], [address], 09/10/2019 09:47:35 09/10/1909/10/2019 CMP, serum or plasm a calcium 9.6 mg/dL 8.6-10 .2 normal Not Available [facility] [address] [place] [address], [address], 09/10/2019 09:47:35 09/10/1909/10/2019 CMP, serum or plasm a total protein 6.8 g/dL 6.4-8. 3 normal Not Available [facility] [address] [place] [address], [address], 09/10/2019 09:47:35 09/10/1909/10/2019 CMP, serum or plasm a albumin 4.7 g/dL 3.5-5. 2 normal Not Available [facility] [address] [place] [address], [address], 09/10/2019 09:47:35 09/10/1909/10/2019 CMP, serum or plasm a globulin 2.1 g/dL_ (calc ) 1.5-4. 5 normal Not Available [facility] [address] [place] [address], [address], 09/10/2019 09:47:35 09/10/1909/10/2019 CMP, serum or plasm a albumin/glob ulin ratio 2.2 (calc ) 1.1-2. 5 normal Not Available [facility] [address] [place] [address], [address], 09/10/2019 09:47:35 09/10/1909/10/2019 CMP, serum or plasm a bilirubin, total 0.4 mg/dL 0.1-1. 2 normal Not Available [facility] [address] [place] [address], [address], 09/10/2019 09:47:35 09/10/1909/10/2019 CMP, serum or plasm a alkaline phosphatase 88 U/L 40-130 normal Not Available [facility] [address] [place] [address], [address], 09/10/2019 09:47:35 09/10/1909/10/2019 CMP, serum or plasm a AST 21 U/L 0-40 normal Not Available [facility] [address] [place] [address], [address], 09/10/2019 09:47:35 09/10/1909/10/2019 CMP, serum or plasm a ALT 18 U/L 0-41 normal Not Available [facility] [address] [place] [address], [address], 09/10/2019 09:47:35 09/10/1909/10/2019 CMP, serum or plasm a GFR 86 >= 60 normal Not Available [facility] [address] [place] [address], [address], 09/10/2019 09:47:35 09/10/1909/10/2019 CMP, serum or plasm [...] month s or longe r. Not Available [facility] [address] [place] [address], [address], 09/10/2019 09:47:35 09/10/1909/10/2019 CBC w/ auto diff white blood cells 6.1 K/uL 3.8-10 .8 normal Not Available [facility] [address] [place] [address], [address], 09/10/2019 08:48:30 09/10/1909/10/2019 CBC w/ auto diff red blood cells 5.28 M/uL 4.20-5 .80 normal Not Available [facility] [address] [place] [address], [address], 09/10/2019 08:48:30 09/10/1909/10/2019 CBC w/ auto diff hemoglobin 15.3 g/dL 14.0-1 8.0 normal Not Available [facility] [address] [place] [address], [address], 09/10/2019 08:48:30 09/10/1909/10/2019 CBC w/ auto diff hematocrit 43.8 % 40.0-5 2.0 normal Not Available [facility] [address] [place] [address], [address], 09/10/2019 08:48:30 09/10/1909/10/2019 CBC w/ auto diff MCV 83 fL 80-100 normal Not Available [facility] [address] [place] [address], [address], 09/10/2019 08:48:30 09/10/19 20 09/10/2019 CBC w/ auto diff MCH 29 pg 26-35 normal Not Available [facility] [address] [place] [address], [address], 09/10/2019 08:48:30 09/10/19 20 09/10/2019 CBC w/ auto diff MCHC 35 g/dL 32-36 normal Not Available [facility] [address] [place] [address], [address], 09/10/2019 08:48:30 09/10/1909/10/2019 CBC w/ auto diff RDW 14.0 % 11.0-1 5.0 normal Not Available [facility] [address] [place] [address], [address], 09/10/2019 08:48:30 09/10/19 20 09/10/2019 CBC w/ auto diff MPV 7.2 fL 6.2-10 .5 normal Not Available [facility] [address] [place] [address], [address], 09/10/2019 08:48:30 09/10/19 20 09/10/2019 CBC w/ auto diff platelet count 154 K/uL 130-40 0 normal Not Available [facility] [address] [place] [address], [address], 09/10/2019 08:48:30 09/10/19 20 09/10/2019 CBC w/ auto diff neutrophil,a bsolute 2.8 K/uL 1.6-8. 4 normal Not Available [facility] [address] [place] [address], [address], 09/10/2019 08:48:30 09/10/19 20 09/10/2019 CBC w/ auto diff lymphocyte,a bsolute 2.6 K/uL 0.4-5. 1 normal Not Available [facility] [address] [place] [address], [address], 09/10/2019 08:48:30 09/10/19 20 09/10/2019 CBC w/ auto diff monocyte,abs olute 0.5 K/uL 0.0-1. 2 normal Not Available [facility] [address] [place] [address], [address], 09/10/2019 08:48:30 09/10/19 20 09/10/2019 CBC w/ auto diff eosinophil,a bsolute 0.2 K/uL 0.0-0. 8 normal Not Available [facility] [address] [place] [address], [address], 09/10/2019 08:48:30 09/10/19 20 09/10/2019 CBC w/ auto diff basophil,abs olute 0.0 K/uL 0.0-0. 3 normal Not Available [facility] [address] [place] [address], [address], 09/10/2019 08:48:30 09/10/19 20 09/10/2019 CBC w/ auto diff % neutrophils 45.9 % 42.0-7 8.0 normal Not Available [facility] [address] [place] [address], [address], 09/10/2019 08:48:30 09/10/19 20 09/10/2019 CBC w/ auto diff % lymphocytes 42.9 % 11.0-4 7.0 normal Not Available [facility] [address] [place] [address], [address], 09/10/2019 08:48:30 09/10/19 20 09/10/2019 CBC w/ auto diff % monocytes 7.6 % 0.0-11 .0 normal Not Available [facility] [address] [place] [address], [address], 09/10/2019 08:48:30 09/10/19 20 09/10/2019 CBC w/ auto diff % eosinophils 3.0 % 0.0-7. 0 normal Not Available [facility] [address] [place] [address], [address], 09/10/2019 08:48:30 09/10/19 20 09/10/2019 CBC w/ auto diff % basophils 0.6 % 0.0-3. 0 normal Not Available [facility] [address] [place] [address], [address], 09/10/2019 08:48:30 09/10/19 20 09/10/2019 CBC w/ auto diff nucleated red cells 0.2 % 0.0-0. 9 normal Not Available [facility] [address] [place] [address], [address], 09/10/2019 08:48:30 09/10/1909/10/2019 CBC w/ auto diff nucleated RBCs, absolute 0.01 K/uL not estab. normal Not Available [facility] [address] [place] [address], [address], 09/10/2019 08:48:30 01/16/20 20 01/16/2020 CMP, serum or plasm a glucose 89 mg/dL 74-100 normal Not Available [facility] [address] [place] [address], [address], 01/16/2020 11:27:47 01/16/20 20 01/16/2020 CMP, serum or plasm a blood urea nitrogen 17 mg/dL 6-20 normal Not Available [facility] [address] [place] [address], [address], 01/16/2020 11:27:47 01/16/20 20 01/16/2020 CMP, serum or plasm a creatinine 0.98 mg/dL 0.70-1 .25 normal Not Available [facility] [address] [place] [address], [address], 01/16/2020 11:27:47 01/16/20 20 01/16/2020 CMP, serum or plasm a BUN/creatini ne ratio 17 (calc ) 10-20 normal Not Available [facility] [address] [place] [address], [address], 01/16/2020 11:27:47 01/16/20 20 01/16/2020 CMP, serum or plasm a sodium 139 mmol/ L 136-14 5 normal Not Available [facility] [address] [place] [address], [address], 01/16/2020 11:27:47 01/16/20 20 01/16/2020 CMP, serum or plasm a potassium 4.2 mmol/ L 3.4-5. 0 normal Not Available [facility] [address] [place] [address], [address], 01/16/2020 11:27:47 01/16/20 20 01/16/2020 CMP, serum or plasm a chloride 102 mmol/ L 98-107 normal Not Available [facility] [address] [place] [address], [address], 01/16/2020 11:27:47 01/16/2001/16/2020 CMP, serum or plasm a carbon dioxide 29 mmol/ L 20-32 normal Not Available [facility] [address] [place] [address], [address], 01/16/2020 11:27:47 01/16/20 20 01/16/2020 CMP, serum or plasm a anion gap 8 (calc ) 7-25 normal Not Available [facility] [address] [place] [address], [address], 01/16/2020 11:27:47 01/16/2001/16/2020 CMP, serum or plasm a calcium 9.6 mg/dL 8.6-10 .2 normal Not Available [facility] [address] [place] [address], [address], 01/16/2020 11:27:47 01/16/20 20 01/16/2020 CMP, serum or plasm a total protein 7.1 g/dL 6.4-8. 3 normal Not Available [facility] [address] [place], [address], 01/16/2020 11:27:47 01/16/20 20 01/16/2020 CMP, serum or plasm a albumin 4.8 g/dL 3.5-5. 2 normal Not Available [facility] [address] [place] [address], [address], 01/16/2020 11:27:47 01/16/20 20 01/16/2020 CMP, serum or plasm a globulin 2.3 g/dL_ (calc ) 1.5-4. 5 normal Not Available [facility] [address] [place] [address], [address], 01/16/2020 11:27:47 01/16/2001/16/2020 CMP, serum or plasm a albumin/glob ulin ratio 2.1 (calc ) 1.1-2. 5 normal Not Available [facility] [address] [place] [address], [address], 01/16/2020 11:27:47 01/16/20 20 01/16/2020 CMP, serum or plasm a bilirubin, total 0.5 mg/dL 0.1-1. 2 normal Not Available [facility] [address] [place] [address], [address], 01/16/2020 11:27:47 01/16/20 20 01/16/2020 CMP, serum or plasm a alkaline phosphatase 76 U/L 40-130 normal Not Available [facility] [address] [place] [address], [address], 01/16/2020 11:27:47 01/16/20 20 01/16/2020 CMP, serum or plasm a AST 24 U/L 0-40 normal Not Available [facility] [address] [place] [address], [address], 01/16/2020 11:27:47 01/16/20 20 01/16/2020 CMP, serum or plasm a ALT 19 U/L 0-41 normal Not Available [facility] [address] [place], [address], 01/16/2020 11:27:47 01/16/2001/16/2020 CMP, serum or plasm a GFR 89 >= 60 normal Not Available [facility] [address] [place], [address], 01/16/2020 11:27:47 01/16/2001/16/2020 CMP, serum or plasm [...] month s or longe r. Not Available [facility] [address] [place] [address], [address], 01/16/2020 11:27:47 01/16/2001/16/2020 CBC w/ auto diff white blood cells 5.4 K/uL 3.8-10 .8 normal Not Available [facility] [address] [place] [address], [address], 01/16/2020 10:56:02 01/16/2001/16/2020 CBC w/ auto diff red blood cells 5.14 M/uL 4.20-5 .80 normal Not Available [facility] [address] [place] [address], [address], 01/16/2020 10:56:02 01/16/2001/16/2020 CBC w/ auto diff hemoglobin 14.9 g/dL 14.0-1 8.0 normal Not Available [facility] [address] [place], [address], 01/16/2020 10:56:02 01/16/20 20 01/16/2020 CBC w/ auto diff hematocrit 42.9 % 40.0-5 2.0 normal Not Available [facility] [address] [place] [address], [address], 01/16/2020 10:56:02 01/16/20 20 01/16/2020 CBC w/ auto diff MCV 83 fL 80-100 normal Not Available [facility] [address] [place] [address], [address], 01/16/2020 10:56:02 01/16/2001/16/2020 CBC w/ auto diff MCH 29 pg 26-35 normal Not Available [facility] [address] [place] [address], [address], 01/16/2020 10:56:02 01/16/20 20 01/16/2020 CBC w/ auto diff MCHC 35 g/dL 32-36 normal Not Available [facility] [address] [place] [address], [address], 01/16/2020 10:56:02 01/16/20 20 01/16/2020 CBC w/ auto diff RDW 13.6 % 11.0-1 5.0 normal Not Available [facility] [address] [place] [address], [address], 01/16/2020 10:56:02 01/16/2001/16/2020 CBC w/ auto diff MPV 6.9 fL 6.2-10 .5 normal Not Available [facility] [address] [place] [address], [address], 01/16/2020 10:56:02 01/16/2001/16/2020 CBC w/ auto diff platelet count 140 K/uL 130-40 0 normal Not Available [facility] [address] [place] [address], [address], 01/16/2020 10:56:02 01/16/20 20 01/16/2020 CBC w/ auto diff neutrophil,a bsolute 2.2 K/uL 1.6-8. 4 normal Not Available [facility] [address] [place] [address], [address], 01/16/2020 10:56:02 01/16/20 20 01/16/2020 CBC w/ auto diff lymphocyte,a bsolute 2.6 K/uL 0.4-5. 1 normal Not Available [facility] [address] [place] [address], [address], 01/16/2020 10:56:02 01/16/20 20 01/16/2020 CBC w/ auto diff monocyte,abs olute 0.4 K/uL 0.0-1. 2 normal Not Available [facility] [address] [place] [address], [address], 01/16/2020 10:56:02 01/16/20 20 01/16/2020 CBC w/ auto diff eosinophil,a bsolute 0.2 K/uL 0.0-0. 8 normal Not Available [facility] [address] [place] [address], [address], 01/16/2020 10:56:02 01/16/20 20 01/16/2020 CBC w/ auto diff basophil,abs olute 0.1 K/uL 0.0-0. 3 normal Not Available [facility] [address] [place] [address], [address], 01/16/2020 10:56:02 01/16/20 20 01/16/2020 CBC w/ auto diff % neutrophils 39.8 % 42.0-7 8.0 low Not Available [facility] [address] [place] [address], [address], 01/16/2020 10:56:02 01/16/20 20 01/16/2020 CBC w/ auto diff % lymphocytes 47.9 % 11.0-4 7.0 high Not Available [facility] [address] [place] [address], [address], 01/16/2020 10:56:02 01/16/20 20 01/16/2020 CBC w/ auto diff % monocytes 7.9 % 0.0-11 .0 normal Not Available [facility] [address] [place] [address], [address], 01/16/2020 10:56:02 01/16/20 20 01/16/2020 CBC w/ auto diff % eosinophils 3.4 % 0.0-7. 0 normal Not Available [facility] [address] [place] [address], [address], 01/16/2020 10:56:02 01/16/20 20 01/16/2020 CBC w/ auto diff % basophils 1.0 % 0.0-3. 0 normal Not Available [facility] [address] [place] [address], [address], 01/16/2020 10:56:02 01/16/20 20 01/16/2020 CBC w/ auto diff nucleated red cells 0.5 % 0.0-0. 9 normal Not Available [facility] [address] [place] [address], [address], 01/16/2020 10:56:02 01/16/20 20 01/16/2020 CBC w/ auto diff nucleated RBCs, absolute 0.03 K/uL not estab. normal Not Available [facility] [address] [place] [address], [address], 01/16/2020 10:56:02 07/17/19 21 07/16/2020 CMP, serum or plasm a glucose 78 mg/dL 74-100 normal Not Available [facility] [address] [place] [address], [address], 07/16/2020 10:33:47 07/17/19 21 07/16/2020 CMP, serum or plasm a blood urea nitrogen 19 mg/dL 6-20 normal Not Available [facility] [address] [place] [address], [address], 07/16/2020 10:33:47 07/17/19 21 07/16/2020 CMP, serum or plasm a creatinine 0.93 mg/dL 0.70-1 .25 normal Not Available [facility] [address] [place] [address], [address], 07/16/2020 10:33:47 07/17/19 21 07/16/2020 CMP, serum or plasm a BUN/creatini ne ratio 20 (calc ) 10-20 normal Not Available [facility] [address] [place] [address], [address], 07/16/2020 10:33:47 07/17/19 21 07/16/2020 CMP, serum or plasm a sodium 138 mmol/ L 136-14 5 normal Not Available [facility] [address] [place] [address], [address], 07/16/2020 10:33:47 07/17/19 21 07/16/2020 CMP, serum or plasm a potassium 4.4 mmol/ L 3.4-5. 0 normal Not Available [facility] [address] [place] [address], [address], 07/16/2020 10:33:47 07/17/19 21 07/16/2020 CMP, serum or plasm a chloride 102 mmol/ L 98-107 normal Not Available [facility] [address] [place] [address], [address], 07/16/2020 10:33:47 07/17/19 21 07/16/2020 CMP, serum or plasm a carbon dioxide 28 mmol/ L 20-32 normal Not Available [facility] [address] [place] [address], [address], 07/16/2020 10:33:47 07/17/19 21 07/16/2020 CMP, serum or plasm a anion gap 8 (calc ) 7-25 normal Not Available [facility] [address] [place] [address], [address], 07/16/2020 10:33:47 07/17/19 21 07/16/2020 CMP, serum or plasm a calcium 9.3 mg/dL 8.6-10 .2 normal Not Available [facility] [address] [place] [address], [address], 07/16/2020 10:33:47 07/17/19 21 07/16/2020 CMP, serum or plasm a total protein 6.9 g/dL 6.4-8. 3 normal Not Available [facility] [address] [place] [address], [address], 07/16/2020 10:33:47 07/17/19 21 07/16/2020 CMP, serum or plasm a albumin 4.7 g/dL 3.5-5. 2 normal Not Available [facility] [address] [place] [address], [address], 07/16/2020 10:33:47 07/17/19 21 07/16/2020 CMP, serum or plasm a globulin 2.2 g/dL_ (calc ) 1.5-4. 5 normal Not Available [facility] [address] [place] [address], [address], 07/16/2020 10:33:47 07/17/19 21 07/16/2020 CMP, serum or plasm a albumin/glob ulin ratio 2.1 (calc ) 1.1-2. 5 normal Not Available [facility] [address] [place] [address], [address], 07/16/2020 10:33:47 07/17/19 21 07/16/2020 CMP, serum or plasm a bilirubin, total 0.4 mg/dL 0.1-1. 2 normal Not Available [facility] [address] [place] [address], [address], 07/16/2020 10:33:47 07/17/19 21 07/16/2020 CMP, serum or plasm a alkaline phosphatase 80 U/L 40-130 normal Not Available [facility] [address] [place], [address], 07/16/2020 10:33:47 07/17/19 21 07/16/2020 CMP, serum or plasm a AST 23 U/L 0-40 normal Not Available [facility] [address] [place] [address], [address], 07/16/2020 10:33:47 07/17/19 21 07/16/2020 CMP, serum or plasm a ALT 19 U/L 0-41 normal Not Available [facility] [address] [place] [address], [address], 07/16/2020 10:33:47 07/17/19 21 07/16/2020 CMP, serum or plasm a GFR 94 >= 60 normal Not Available [facility] [address] [place], [address], 07/16/2020 10:33:47 07/17/19 21 07/16/2020 CMP, serum [...] month s or longe r. Not Available [facility] [address] [place], [address], 07/16/2020 10:33:47 07/17/19 21 07/16/2020 CBC w/ auto diff white blood cells 6.4 K/uL 3.8-10 .8 normal Not Available [facility] [address] [place] [address], [address], 07/16/2020 10:05:21 07/17/19 21 07/16/2020 CBC w/ auto diff red blood cells 5.17 M/uL 4.20-5 .80 normal Not Available [facility] [address] [place] [address], [address], 07/16/2020 10:05:21 07/17/19 21 07/16/2020 CBC w/ auto diff hemoglobin 14.9 g/dL 14.0-1 8.0 normal Not Available [facility] [address] [place] [address], [address], 07/16/2020 10:05:21 07/17/19 21 07/16/2020 CBC w/ auto diff hematocrit 43.8 % 40.0-5 2.0 normal Not Available [facility] [address] [place] [address], [address], 07/16/2020 10:05:21 07/17/19 21 07/16/2020 CBC w/ auto diff MCV 85 fL 80-100 normal Not Available [facility] [address] [place] [address], [address], 07/16/2020 10:05:21 07/17/19 21 07/16/2020 CBC w/ auto diff MCH 29 pg 26-35 normal Not Available [facility] [address] [place] [address], [address], 07/16/2020 10:05:21 07/17/19 21 07/16/2020 CBC w/ auto diff MCHC 34 g/dL 32-36 normal Not Available [facility] [address] [place] [address], [address], 07/16/2020 10:05:21 07/17/19 21 07/16/2020 CBC w/ auto diff RDW 13.3 % 11.0-1 5.0 normal Not Available [facility] [address] [place] [address], [address], 07/16/2020 10:05:21 07/17/19 21 07/16/2020 CBC w/ auto diff MPV 7.4 fL 6.2-10 .5 normal Not Available [facility] [address] [place] [address], [address], 07/16/2020 10:05:21 07/17/19 21 07/16/2020 CBC w/ auto diff platelet count 161 K/uL 130-40 0 normal Not Available [facility] [address] [place] [address], [address], 07/16/2020 10:05:21 07/17/19 21 07/16/2020 CBC w/ auto diff neutrophil,a bsolute 2.8 K/uL 1.6-8. 4 normal Not Available [facility] [address] [place] [address], [address], 07/16/2020 10:05:21 07/17/19 21 07/16/2020 CBC w/ auto diff lymphocyte,a bsolute 2.9 K/uL 0.4-5. 1 normal Not Available [facility] [address] [place] [address], [address], 07/16/2020 10:05:21 07/17/19 21 07/16/2020 CBC w/ auto diff monocyte,abs olute 0.5 K/uL 0.0-1. 2 normal Not Available [facility] [address] [place] [address], [address], 07/16/2020 10:05:21 07/17/19 21 07/16/2020 CBC w/ auto diff eosinophil,a bsolute 0.2 K/uL 0.0-0. 8 normal Not Available [facility] [address] [place] [address], [address], 07/16/2020 10:05:21 07/17/19 21 07/16/2020 CBC w/ auto diff basophil,abs olute 0.1 K/uL 0.0-0. 3 normal Not Available [facility] [address] [place] [address], [address], 07/16/2020 10:05:21 07/17/19 21 07/16/2020 CBC w/ auto diff % neutrophils 44.2 % 42.0-7 8.0 normal Not Available [facility] [address] [place] [address], [address], 07/16/2020 10:05:21 07/17/19 21 07/16/2020 CBC w/ auto diff % lymphocytes 45.2 % 11.0-4 7.0 normal Not Available [facility] [address] [place] [address], [address], 07/16/2020 10:05:21 07/17/19 21 07/16/2020 CBC w/ auto diff % monocytes 7.4 % 0.0-11 .0 normal Not Available [facility] [address] [place] [address], [address], 07/16/2020 10:05:21 07/17/19 21 07/16/2020 CBC w/ auto diff % eosinophils 2.4 % 0.0-7. 0 normal Not Available [facility] [address] [place] [address], [address], 07/16/2020 10:05:21 07/17/19 21 07/16/2020 CBC w/ auto diff % basophils 0.8 % 0.0-3. 0 normal Not Available [facility] [address] [place] [address], [address], 07/16/2020 10:05:21 07/17/19 21 07/16/2020 CBC w/ auto diff nucleated red cells 0.2 % 0.0-0. 9 normal Not Available [facility] [address] [place] [address], [address], 07/16/2020 10:05:21 07/17/19 21 07/16/2020 CBC w/ auto diff nucleated RBCs, absolute 0.01 K/uL not estab. normal Not Available [facility] [address] [place] [address], [address], 07/16/2020 10:05:21 01/08/20 21 01/07/2021 COMP. METAB OLIC PANEL glucose 99 mg/dL 74-100 normal Not Available [facility] [address] [place] [address], [address], 01/07/2021 11:18:57 01/08/20 21 01/07/2021 COMP. METAB OLIC PANEL blood urea nitrogen 16 mg/dL 6-20 normal Not Available [facility] [address] [place] [address], [address], 01/07/2021 11:18:57 01/08/20 21 01/07/2021 COMP. METAB OLIC PANEL creatinine 0.93 mg/dL 0.70-1 .28 normal Not Available [facility] [address] [place] [address], [address], 01/07/2021 11:18:57 01/08/20 21 01/07/2021 COMP. METAB OLIC PANEL BUN/creatini ne ratio 17 (calc ) 10-20 normal Not Available [facility] [address] [place] [address], [address], 01/07/2021 11:18:57 01/08/20 21 01/07/2021 COMP. METAB OLIC PANEL sodium 141 mmol/ L 136-14 5 normal Not Available [facility] [address] [place] [address], [address], 01/07/2021 11:18:57 01/08/20 21 01/07/2021 COMP. METAB OLIC PANEL potassium 4.2 mmol/ L 3.4-5. 0 normal Not Available [facility] [address] [place] [address], [address], 01/07/2021 11:18:57 01/08/20 21 01/07/2021 COMP. METAB OLIC PANEL chloride 102 mmol/ L 98-107 normal Not Available [facility] [address] [place] [address], [address], 01/07/2021 11:18:57 01/08/20 21 01/07/2021 COMP. METAB OLIC PANEL carbon dioxide 25 mmol/ L 22-31 normal Not Available [facility] [address] [place] [address], [address], 01/07/2021 11:18:57 01/08/20 21 01/07/2021 COMP. METAB OLIC PANEL anion gap 14 (calc ) 7-25 normal Not Available [facility] [address] [place] [address], [address], 01/07/2021 11:18:57 01/08/20 21 01/07/2021 COMP. METAB OLIC PANEL calcium 9.4 mg/dL 8.6-10 .2 normal Not Available [facility] [address] [place] [address], [address], 01/07/2021 11:18:57 01/08/20 21 01/07/2021 COMP. METAB OLIC PANEL total protein 7.0 g/dL 6.4-8. 3 normal Not Available [facility] [address] [place] [address], [address], 01/07/2021 11:18:57 01/08/20 21 01/07/2021 COMP. METAB OLIC PANEL albumin 4.8 g/dL 3.5-5. 2 normal Not Available [facility] [address] [place] [address], [address], 01/07/2021 11:18:57 01/08/20 21 01/07/2021 COMP. METAB OLIC PANEL globulin 2.2 g/dL_ (calc ) 1.5-4. 5 normal Not Available [facility] [address] [place] [address], [address], 01/07/2021 11:18:57 01/08/20 21 01/07/2021 COMP. METAB OLIC PANEL albumin/glob ulin ratio 2.2 (calc ) 1.1-2. 5 normal Not Available [facility] [address] [place] [address], [address], 01/07/2021 11:18:57 01/08/20 21 01/07/2021 COMP. METAB OLIC PANEL bilirubin, total 0.4 mg/dL 0.1-1. 2 normal Not Available [facility] [address] [place] [address], [address], 01/07/2021 11:18:57 01/08/20 21 01/07/2021 COMP. METAB OLIC PANEL alkaline phosphatase 85 U/L 40-129 normal Not Available [facility] [address] [place] [address], [address], 01/07/2021 11:18:57 01/08/20 21 01/07/2021 COMP. METAB OLIC PANEL AST 22 U/L 0-40 normal Not Available [facility] [address] [place] [address], [address], 01/07/2021 11:18:57 01/08/20 21 01/07/2021 COMP. METAB OLIC PANEL ALT 19 U/L 0-41 normal Not Available [facility] [address] [place] [address], [address], 01/07/2021 11:18:57 01/08/20 21 01/07/2021 COMP. METAB OLIC PANEL GFR 94 >= 60 normal Not Available [facility] [address] [place] [address], [address], 01/07/2021 11:18:57 01/08/20 21 01/07/2021 COMP. METAB OLIC PANEL [...] For pedia tric patie nts refer to [facility] ation [email or web address] :[email or web address] QI/gf r_cal culat orPed Not Available [facility] [address] [place] [address], [address], 01/07/2021 11:18:57 01/08/20 21 01/07/2021 MANUA L DIFFE RENTI AL % band neutrophils 0.0 % 0.0-7. 0 normal Not Available [facility] [address] [place] [address], [address], 01/07/2021 10:52:19 01/08/20 21 01/07/2021 MANUA L DIFFE RENTI AL % atypical lymphocytes 4 % 0-1 high Not Available [facility] [address] [place] [address], [address], 01/07/2021 10:52:19 01/08/20 21 01/07/2021 MANUA L DIFFE RENTI AL % metamyelocyt es 0 % 0-1 normal Not Available [facility] [address] [place] [address], [address], 01/07/2021 10:52:19 01/08/20 21 01/07/2021 MANUA L DIFFE RENTI AL % myelocytes 0 % 0-1 normal Not Available [facility] [address] [place] [address], [address], 01/07/2021 10:52:19 01/08/20 21 01/07/2021 MANUA L DIFFE RENTI AL % promyelocyte s 0 % normal Not Available [facility] [address] [place] [address], [address], 01/07/2021 10:52:19 01/08/20 21 01/07/2021 MANUA L DIFFE RENTI AL % blast 0 % normal Not Available [facility] [address] [place] [address], [address], 01/07/2021 10:52:19 01/08/20 21 01/07/2021 MANUA L DIFFE RENTI AL nucleated red cells 0 /100_ WBC normal Not Available [facility] [address] [place] [address], [address], 01/07/2021 10:52:19 01/08/20 21 01/07/2021 MANUA L DIFFE RENTI AL smudge cells 0 normal Not Available [facility] [address] [place] [address], [address], 01/07/2021 10:52:19 01/08/20 21 01/07/2021 MANUA L DIFFE RENTI AL platelet morphology NORMAL normal Not Available [facility] [address] [place] [address], [address], 01/07/2021 10:52:19 01/08/20 21 01/07/2021 MANUA L DIFFE RENTI AL ovalocytes SLIGHT abnormal Not Available [facility] [address] [place] [address], [address], 01/07/2021 10:52:19 01/08/20 21 01/07/2021 MANUA L DIFFE RENTI AL dacryocytes SLIGHT abnormal Not Available [facility] [address] [place] [address], [address], 01/07/2021 10:52:19 01/08/20 21 01/07/2021 COMPL ETE BLOOD COUNT white blood cells 6.9 K/uL 3.8-10 .8 normal Not Available [facility] [address] [place] [address], [address], 01/07/2021 10:52:17 01/08/20 21 01/07/2021 COMPL ETE BLOOD COUNT red blood cells 5.24 M/uL 4.20-5 .80 normal Not Available [facility] [address] [place] [address], [address], 01/07/2021 10:52:17 01/08/20 21 01/07/2021 COMPL ETE BLOOD COUNT hemoglobin 15.5 g/dL 14.0-1 8.0 normal Not Available [facility] [address] [place] [address], [address], 01/07/2021 10:52:17 01/08/2001/07/2021 COMPL ETE BLOOD COUNT hematocrit 44.1 % 40.0-5 2.0 normal Not Available [facility] [address] [place] [address], [address], 01/07/2021 10:52:17 01/08/20 21 01/07/2021 COMPL ETE BLOOD COUNT MCV 84 fL 80-100 normal Not Available [facility] [address] [place] [address], [address], 01/07/2021 10:52:17 01/08/20 21 01/07/2021 COMPL ETE BLOOD COUNT MCH 30 pg 26-35 normal Not Available [facility] [address] [place] [address], [address], 01/07/2021 10:52:17 01/08/20 21 01/07/2021 COMPL ETE BLOOD COUNT MCHC 35 g/dL 32-36 normal Not Available [facility] [address] [place] [address], [address], 01/07/2021 10:52:17 01/08/20 21 01/07/2021 COMPL ETE BLOOD COUNT RDW 13.5 % 11.0-1 5.0 normal Not Available [facility] [address] [place] [address], [address], 01/07/2021 10:52:17 01/08/20 21 01/07/2021 COMPL ETE BLOOD COUNT MPV 7.6 fL 6.2-10 .5 normal Not Available [facility] [address] [place] [address], [address], 01/07/2021 10:52:17 01/08/20 21 01/07/2021 COMPL ETE BLOOD COUNT platelet count 162 K/uL 130-40 0 normal Not Available [facility] [address] [place] [address], [address], 01/07/2021 10:52:17 01/08/20 21 01/07/2021 COMPL ETE BLOOD COUNT neutrophil,a bsolute 3.0 K/uL 1.6-8. 4 normal Not Available [facility] [address] [place] [address], [address], 01/07/2021 10:52:17 01/08/20 21 01/07/2021 COMPL ETE BLOOD COUNT lymphocyte,a bsolute 3.2 K/uL 0.4-5. 1 normal Not Available [facility] [address] [place] [address], [address], 01/07/2021 10:52:17 01/08/20 21 01/07/2021 COMPL ETE BLOOD COUNT monocyte,abs olute 0.4 K/uL 0.0-1. 2 normal Not Available [facility] [address] [place] [address], [address], 01/07/2021 10:52:17 01/08/2001/07/2021 COMPL ETE BLOOD COUNT eosinophil,a bsolute 0.1 K/uL 0.0-0. 8 normal Not Available [facility] [address] [place] [address], [address], 01/07/2021 10:52:17 01/08/20 21 01/07/2021 COMPL ETE BLOOD COUNT basophil,abs olute 0.0 K/uL 0.0-0. 3 normal Not Available [facility] [address] [place] [address], [address], 01/07/2021 10:52:17 01/08/20 21 01/07/2021 COMPL ETE BLOOD COUNT % neutrophils 43.0 % 42.0-7 8.0 normal Not Available [facility] [address] [place] [address], [address], 01/07/2021 10:52:17 01/08/20 21 01/07/2021 COMPL ETE BLOOD COUNT % lymphocytes 46.0 % 11.0-4 7.0 normal Not Available [facility] [address] [place] [address], [address], 01/07/2021 10:52:17 01/08/20 21 01/07/2021 COMPL ETE BLOOD COUNT % monocytes 6.0 % 0.0-11 .0 normal Not Available [facility] [address] [place] [address], [address], 01/07/2021 10:52:17 01/08/20 21 01/07/2021 COMPL ETE BLOOD COUNT % eosinophils 1.0 % 0.0-7. 0 normal Not Available [facility] [address] [place] [address], [address], 01/07/2021 10:52:17 01/08/20 21 01/07/2021 COMPL ETE BLOOD COUNT % basophils 0.0 % 0.0-3. 0 normal Not Available [facility] [address] [place] [address], [address], 01/07/2021 10:52:17 01/08/20 21 01/07/2021 COMPL ETE BLOOD COUNT nucleated red cells 0.2 % 0.0-0. 9 normal Not Available [facility] [address] [place] [address], [address], 01/07/2021 10:52:17 01/08/20 21 01/07/2021 COMPL ETE BLOOD COUNT nucleated RBCs, absolute 0.01 K/uL not estab. normal Not Available [facility] [address] [facility], [place], [address], 01/07/2021 10:52:17 05/22/19 19 05/22/2018 CT neck/ chest /ABD/ pelvi s wo contr ast [facility] [address] [place] [address] Patien t Name: ADDIE HU Patiyazmin t : [birth year] 46 Patien t Orderi ng Provid er: ZECHARIAH LOMAS EXAM DATE: 2018 EXAM: CT NECK/C HEST/A BD/PEL VIS WO CONTRA [facility] AL INFORM ATION: Lympho ma TECHNI QUE: Multip le axial CT images of the neck, chest, abdome n and pelvis were obtain ed withou t njecti on of IV contra st. Bowel was opacif ied with oral contra st. COMPAR JANNIE: 018, [address] NECK: LOWER CRANIU M: No obviou s intrac ranial abnorm ality. Visual ized portio ns of the orbits and sinuse s are normal . SUPRAH YOID REGION : Nasoph arynx, oropha rynx, vallec ulae and epiglo ttis are normal . Deep spaces of the neck appear normal . Bilate ral paroti d and subman dibula r saliva ry glands are normal . Marked improv ement of bilate ral deep cervic al lympha denopa thy. Scatte red small subcen timete r nodes. INFRAH YOID REGION : Hypoph arynx, pirifo rm sinuse s and vocal cords are normal . Thyroi d gland is normal . No airway abnorm ality. Marked interv al improv ement of bilate ral lympha denopa thy. No signif icant adenop athy. CERVIC AL SPINE: Mild degene rative change s are noted. FINDIN GS ON CT CHEST: AIRWAY S AND LUNGS: Trache a, princi pal bronch i and major bronch ial branch es are patent and normal . Lungs are clear. MEDIAS TINUM: No medias tinal lympha denopa thy. Aorta, SVC, pulmon mary beth arteri es, pulmon mary beth veins and their major branch es and tribut nicole are normal . No gross cardia c abnorm ality. PLEURA AND CHEST WALL: No pleura l effusi on or mass. No chest wall abnorm ality. FINDIN GS ON CT ABDOME N: UPPER ABDOMI NAL ORGANS : Liver, gallbl adder, spleen , pancre as, adrena ls and both kidney s are normal . BOWEL AND MESENT CRISTOFER: Stomac h, small bowel and colon are normal . No pleura l effusi on. Tiny subcen timete r mesent axel nodes are presen t which are smalle r and less conspi cuous than the previo us exam.. RETROP ERITON EUM: Aorta, IVC and their branch es are patent and normal . Tiny retrop eriton eal nodes are presen t. They are smalle r than the prior study. The larges t measur es 1.8 cm, previo usly 2.4 cm and has a fatty center .. ABDOMI NAL WALL AND SKELET AL STRUCT URES: Normal . FINDIN GS ON CT PELVIS : PELVIC CAVITY : Bladde r unrema rkable . Sigmoi d divert iculos is is presen t. Prosta te unrema rkable .. No pelvic or inguin al lympha denopa thy, mass or fluid. MUSCUL OSKELE GLORIA STRUCT URES: Normal . COMBIN ED IMPRES PILLO: Interv al improv ement of deep cervic al, retrop eriton eal, mesent axel, and pelvic adenop athy. Tiny residu al mesent axel and retrop eriton eal nodes Interp reted By: Chang Diaz MD Electr onical ly Signed By: Chang Diaz MD on 019 8:39 AM [email or web address] [address] [facility], [place], [address], 05/23/2018 10:46:14 Result Notes None recorded. Problems Name Problem SNOMED Code Status Onset Date Resolution Date Notes Provider Name and Address Organization Details Recorded Time B-cell chronic lymphocytic leukemia Active 2014 From Automated Load;Provi susan: Gissel Lomas; atus: Active Not Available [facility] 6 09:10:52 Problem Notes None recorded. Procedures Surgical History Date Name Laterality Status Provider Name and Address Organization Details Recorded Time 9 Cystoscopy - male completed YANA CHARLES MD [address] [place], [address], [facility] 06/28/2018 14:23:07 9 Post Void Residual; Ultrasound completed Nikki Kaba [facility] 06/09/2018 15:19:38 9 Hem/Onc Treatment Encounter completed Urmila Nick [facility] 05/23/2018 11:50:02 8 Hem/Onc Treatment Encounter completed Urmila Nick [facility] 04/11/2018 10:39:41 8 Hem/Onc Treatment Encounter completed Deidra Haque [facility] 04/10/2018 12:53:37 8 Hem/Onc Treatment Encounter completed Camelia Hernandez [facility] 03/14/2018 09:54:25 8 Hem/Onc Treatment Encounter completed Urmila Nick [facility] 03/13/2018 11:30:26 8 Hem/Onc Treatment Encounter completed Urmila Nick [facility] 02/15/2018 16:10:18 8 Hem/Onc Treatment Encounter completed Urmila Nick [facility] 02/14/2018 13:23:49 8 Hem/Onc Treatment Encounter completed Urmila Nick [facility] 02/13/2018 11:49:50 8 VAS - Up Ext Marcus Dup completed MICHEL SANCHEZ MD [address] [place], [address], [facility] 01/24/2018 15:44:42 8 Hem/Onc Treatment Encounter completed Beba Ledesma [facility] 01/17/2018 10:29:41 8 Hem/Onc Treatment Encounter completed Deidra Haque [facility] 01/16/2018 12:39:27 8 Hem/Onc Treatment Encounter completed Urmila Romero [facility] 12/20/2017 13:58:08 8 Hem/Onc Treatment Encounter completed Beba Ledesma [facility] 12/19/2017 11:35:35 8 Hem/Onc Treatment Encounter completed Urmila Romero [facility] 12/07/2017 16:06:56 8 Hem/Onc Treatment Encounter completed Deidra Haque [facility] 11/17/2017 09:16:38 8 Hem/Onc Treatment Encounter completed Beba Ledesma [facility] 11/16/2017 14:24:42 8 Hem/Onc Treatment Encounter completed Camelia Hernandez [facility] 07/25/2017 10:07:05 8 Hem/Onc Treatment Encounter completed Deidra Haque [facility] 07/18/2017 11:09:06 8 Hem/Onc Treatment Encounter completed Urmila Romero [facility] 07/11/2017 10:30:24 8 Hem/Onc Treatment Encounter completed Deidra Haque [facility] 07/04/2017 16:14:22 Imaging Results None recorded. Procedure Notes None recorded. Medical Equipment None Reported. Allergies Allergen ID Allergen Name Allergen Category Reaction Reaction Severity Criticality Documentation Date Start Date Code Code System Note Provider Name and Address Organization Details Recorded Time 385558 Iodinated contrast media (substanc e) medicatio n other moderate Not available 03/25/20162014 68701 2004 SNOMED React ion: EYE SWELL ING;S everi ty: Moder ate; Comme nt: Conge stion with water y eyes; Creat ed By: Dany rock;Cr eated Date: 02/14 2:03: 47 PM; Not Available [facility] 6 12:52:21 [id number] Iodex medicatio n other moderate Not available 03/26/20162014 78101 RxNorm React ion: EYE SWELL ING;S everi ty: Moder ate; Comme nt: React ion to IV Contr ast;C reate d By: Dany rock;Lupillo eated Date: 02/14 2:05: 26 PM; Not Available [facility] 6 02:59:44 Medications Name Sig Start Date Stop Date Status Note LastModified by Organization Details LastModified Time doxycycli ne hyclate 100 mg capsule 1 capsule twice a day x7d 12/20 completed Not Available Not Available Not Available Multiple Vitamin capsule Daily active Duration : 30 days;Alex quency: daily;Me dication Descript ion: multivit abernathy; Dosage:1 ; Route:or al; refills: 3; Quantity :100 capsule Not Available Not Available Not Available diphenhyd ramine 50 mg tablet As Directed 12/28 completed Instruct ions: take 1 tablet at 5pm and 11pm day prior to CT scan then take 1 tablet 2hrs prior to scan;Alex quency: as direct.; Medicati on Descript ion: diphenhy dramine; Dosage:a s directed ; Route:or al; refills: 0; Quantity :3 tablet Not Available Not Available Not Available ondansetr on HCl 8 mg tablet 1 po q6hrs prn nausea 07/18 completed Not Available Not Available Not Available prednison e 20 mg tablet take 2 tablets daily starting 2 days before Rituxan treatmen t 07/18 completed Not Available Not Available Not Available Zithromax Z-Mark Anthony 250 mg tablet TAKE 2 TABLETS (500 MG) BY ORAL ROUTE ONCE DAILY FOR 1 DAY THEN 1 TABLET (250 MG) BY ORAL ROUTE ONCE DAILY FOR 4 DAYS 12/20 completed Not Available Not Available Not Available prochlorp erazine maleate 10 mg tablet 1 po q6hrs prn nausea 07/18 completed Not Available Not Available Not Available cimetidin e 300 mg tablet As Directed 12/28 completed Instruct ions: take 2hrs prior to schedule d CT scan;Alex quency: as direct.; Medicati on Descript ion: cimetidi ne; Dosage:a s directed ; Route:or al; refills: 0; Quantity :1 tablet Not Available Not Available Not Available baclofen 10 mg tablet Take 1 tablet every 12 hours as needed for hiccups 07/18 completed Not Available Not Available Not Available prednison e 50 mg tablet As Directed 12/28 completed Instruct ions: take1 tablet at 5pm and 11pm day prior to CT scan then 1 tablet 2 hrs prior to scan;Alex quency: as direct.; Medicati on Descript ion: predniso ne; Dosage:a s directed ; Route:or al; refills: 0; Quantity :3 tablet Not Available Not Available Not Available allopurin ol 300 mg tablet Take 1 tablet every day by oral route. 12/20 completed Not Available Not Available Not Available levofloxa rebecca 500 mg tablet Take 1 tablet every day by oral route for 10 days. 07/18 completed Not Available Not Available Not Available methylpre dnisolone 4 mg tablets in a dose pack take as directed 04/11 completed Not Available Not Available Not Available Bactrim DS 800 mg-160 mg tablet Take 1 tablet every 12 hours by oral route for 10 days. 01/16 completed for question able infectio n left forearm Not Available Not Available Not Available Asprin Ec Low Dose daily 09/07 completed Not Available Not Available Not Available Fluzone High-Dose 6381-3075 (PF) 180 mcg/0.5 mL intramusc ular syringe 04/11 completed Not Available Not Available Not Available Fluzone High-Dose (PF) 180 mcg/0.5 mL intramusc ular syringe active Not Available Not Available Not Available Vitals Date Recorded Body height Body mass index (BMI) Body weight Body temperature Heart rate Systolic And Diastolic Provider Name and Address Organization Details Last Updated DateTime 9 167.64 cm 25.8 kg/m2 25535.7 8 g 98.5 [degF] 75 /min 151/63 mm[Hg] Kristy Lopez [facility] 9 11:42:03 Date Recorded Body height Body mass index (BMI) Body weight Provider Name and Address Organization Details Last Updated DateTime 06/09/2018 167.64 cm 25.8 kg/m2 47279.78 g Nikki Kaba [facility] 06/09/2018 15:14:08 Date Recorded Body height Body mass index (BMI) Body weight Body temperature Heart rate Systolic And Diastolic Provider Name and Address Organization Details Last Updated DateTime 9 167.64 cm 26.1 kg/m2 13301.9 6 g 98.4 [degF] 79 /min 156/76 mm[Hg] Kristy Lopez [facility] 9 11:37:57 Date Recorded Body height Body mass index (BMI) Body weight Pain severity - 0-10 verbal numeric rating [Score] - Reported Body temperature Heart rate Systolic And Diastolic Provider Name and Address Organization Details Last Updated DateTime 9 167.64 cm 26.7 kg/m2 77086.4 9 g 0 98.6 [degF] 76 /min 171/86 mm[Hg] Alfredo Street [facility] 9 14:12:39 Social History Question Answer Notes LastModified by Organizat ion Details LastModified Time Tobacco Smoking Status Former Smoker [facility] 12/28/2016 10:07:21 Live Alone Or With Others? With Others Information not available 12/28/2016 Marital Status [email or web address] Informat ion not available 12/28/2016 What Was The Date Of Your Most Recent Tobacco Screening? 07/18/2018 [email or web address] Information n ot available 06/19/2019 Sex: Unknown Functional Status Question Answer Note LastModified by Organization D etails LastModified Time What is your level of alcohol consumption? None [email or web address] Information not available 12/28/2016 Mental Status None recorded. Family History Nothing Reported. Medical History No medical history recorded. Immunizations Vaccine Type Date Status Note Provider Nam e and Address Organization Details Recorded Time Influenza, high-dose, trivalent, PF 04/10/2018 completed Not Available [facility] 2019 02:52:22 Past Encounters Encounter ID Performer Location Encounter Start Date Encounter Closed Date Diagnosis/Indication Diagnosis SNOMED-CT Code Diagnosis ICD10 Code Diagnosis IMO Codes Diagnosis Note [id number] GISSEL LOMAS MD [facility] [address] [place] [address] 06/17/2016 13:25:51 06/17/2016 13:54:58 B-cell chronic lymphocytic leukemia 163366148 C91.10 [id number] GISSEL LOMAS MD [facility] [address] [place] [address] 12/28/2016 09:55:42 12/28/2016 10:43:01 B-cell chronic lymphocytic leukemia [id number] C91.10 [id number] GISSEL LOMAS MD [facility] [address] [place] [address] 06/28/2017 09:53:24 06/28/2017 10:48:33 B-cell chronic lymphocytic leukemia [id number] C91.10 Body mass index 25-29 - overweight 767045188 Z68.26 [id number] GISSEL LOMAS MD [facility] [address] [place] [address] 07/04/2017 09:40:20 07/04/2017 11:04:53 B-cell chronic lymphocytic leukemia [id number] C91.10 [id number] GISSEL LOMAS MD [facility] [address] [place] [address] 07/04/2017 09:40:20 07/04/2017 11:04:54 [id number] GISSEL LOMAS MD [facility] [address] [place] [address] 07/11/2017 08:28:11 07/14/2017 08:58:22 [id number] GISSEL LOMAS MD [facility] [address] [place] [address] 07/18/2017 08:41:25 07/22/2017 09:43:11 [id number] GISSEL LOMAS MD [facility] [address] [place] [address] 07/25/2017 08:35:51 07/27/2017 10:50:34 [id number] GISSEL LOMAS MD [facility] [address] [place] [address] 08/05/2017 09:22:21 08/05/2017 11:25:00 B-cell chronic lymphocytic leukemia [id number] C91.10 [id number] GISSEL LOMAS MD [facility] [address] [place] [address] 09/02/2017 09:29:22 09/02/2017 10:08:32 B-cell chronic lymphocytic leukemia [id number] C91.10 [id number] GISSEL LOMAS MD [facility] [address] [place] [address] 11/07/2017 13:30:17 11/07/2017 14:23:06 B-cell chronic lymphocytic leukemia [id number] C91.10 [id number] FLORA DAO MD [facility] [address] [place] [address] 11/16/2017 08:04:28 11/17/2017 07:55:42 [id number] TRELL LORD MD [facility] [address] [place] [address] 11/17/2017 08:01:36 11/18/2017 07:15:55 [id number] GISSEL LOMAS MD [facility] [address] [place] [address] 11/28/2017 11:39:46 11/28/2017 12:48:34 B-cell chronic lymphocytic leukemia [id number] C91.10 [id number] GISSEL LOMAS MD [facility] [address] [place] [address] 12/05/2017 12:32:57 12/07/2017 12:37:24 [id number] GISSEL LOMAS MD [facility] [address] [place] [address] 12/19/2017 08:14:38 12/19/2017 09:29:30 [id number] GISSEL LOMAS MD [facility] [address] [place] [address] 12/19/2017 08:14:38 12/19/2017 09:29:30 B-cell chronic lymphocytic leukemia [id number] C91.10 [facility] [id number] R06.6 [id number] GISSEL LOMAS MD [facility] [address] [place] [address] 12/20/2017 09:40:38 12/23/2017 15:54:44 [id number] GISSEL LOMAS MD [facility] [address] [place] [address] 01/16/2018 08:14:51 01/16/2018 09:35:21 B-cell chronic lymphocytic leukemia [id number] C91.10 [id number] GISSEL LOMAS MD [facility] [address] [place] [address] 01/16/2018 08:14:51 01/16/2018 09:35:22 [id number] GISSEL LOMAS MD [facility] [address] [place] [address] 01/17/2018 08:55:37 01/23/2018 12:56:45 [id number] MICHEL SANCHEZ MD [facility] CLOSED [address] [place] [address] 01/24/2018 08:40:15 01/27/2018 16:14:59 Pain in right arm [id number] M79.014 [id number] GISSEL LOMAS MD [facility] [address] [place] [address] 02/13/2018 08:18:55 02/13/2018 09:34:18 B-cell chronic lymphocytic leukemia [id number] C91.10 [id number] GISSEL LOMAS MD [facility] [address] [facility] [place] [address] 02/13/2018 08:18:55 02/13/2018 09:34:19 [id number] GISSEL LOMAS MD [facility] [address] [place] [address] 02/14/2018 08:54:53 02/17/2018 11:05:33 [id number] FLORA DAO MD [facility] [address] [place] [address] 02/15/2018 15:20:52 02/20/2018 10:46:27 [id number] GISSEL LOMAS MD [facility] CL[facility] [address] [place] [address] 03/13/2018 08:11:20 03/13/2018 09:16:20 B-cell chronic lymphocytic leukemia [id number] C91.10 [id number] GISSEL LOMAS MD HEM/ONC KOHOP CLOSED [address] [place] [address] 03/13/2018 08:11:20 03/13/2018 09:16:20 [id number] GISSEL LOMAS MD HEM/ONC K[facility] CLOSED [address] [place] [address] 03/14/2018 08:43:13 03/17/2018 16:23:40 [id number] ANNABELLA DASILVA MD HEM/ONC KOH[place] CLOSED [address] [place] [address] 04/10/2018 08:15:30 04/10/2018 09:44:33 [id number] ANNABELLA DASILVA MD HEM/ONC KOHOP CLOSED [address] [address] 04/10/2018 08:15:30 04/10/2018 09:44:32 B-cell chronic lymphocytic leukemia [id number] C91.10 Pt will proceed with cycle 6 of bendamusti ne and rituxan. He has not received pneumonia and flus shots. We will give flu shot today. We will reimage when RTC in 6 weeks and immunize for pneumonia. Anemia [id number] D64.9 Secondary to chemothera py. [id number] ANNABELLA DASILVA MD HEM/ONC K[facility]OP CLOSED [address] [place] [address] 04/11/2018 08:46:33 04/14/2018 13:04:06 [id number] GISSEL LOMAS MD HEM/ONC [place] CLOSED [address] [place] [address] 05/23/2018 10:23:23 05/23/2018 12:03:32 B-cell chronic lymphocytic leukemia [id number] C91.10 [id number] GISSEL LOMAS MD HEM/ONC [place] CLOSED [address] 6 05/23/2018 11:38:03 05/26/2018 10:15:49 [id number] GISSEL LOMAS MD HEM/ONC KOHOP CLOSED [address],[facility] [address] 6 06/06/2018 11:26:21 06/06/2018 16:04:57 B-cell chronic lymphocytic leukemia [id number] C91.10 [id number] YANA CHARLES MD UROLOGY SB CLOSED [address] [place] [address] 1 06/09/2018 14:45:47 06/12/2018 07:09:58 Deonte hematuria [id number] R31.0 Hemospermia [id number] R36 .1 [id number] YANA CHARLES MD SURGERY SCHEDULE [address] [place] [address] 1 06/28/2018 12:15:26 06/28/2018 12:16:23 [id number] GISSEL LOMAS MD HEM/ONC KOHOP CLOSED [address],[facility] [address] [place], [place] [id number] 6 07/18/2018 10:47:19 07/18/2018 12:01:03 B-cell chronic lymphocytic leukemia [id number] C91.10 [id number] GISSEL LOMAS MD HEM/ONC KOHOP CLOSED [address],[facility] [address] [place], [place] [id number] 6 09/07/2018 13:20:06 09/07/2018 14:37:08 B-cell chronic lymphocytic leukemia [id number] C91.10 [id number] GISSEL LOMAS MD HEM/ONC SB CLOSED [address] [place] [address] 12/07/2018 12:19:49 12/07/2018 13:32:59 [id number] GISSEL LOMAS MD HEM/ONC SB CLOSED [address] [place] [address] 03/13/2019 08:58:25 03/14/2019 15:18:01 [id number] TRELL LORD MD HEM/ONC SB CLOSED [address] [place] [address] 09/12/2019 12:44:52 09/12/2019 14:24:59 [id number] TRELL LORD MD HEM/ONC SB CLOSED [address] [place] [address] 01/16/2020 11:52:20 01/16/2020 12:59:05 [id number] TRELL LORD MD HEM/ONC SB CLOSED [address] [place] [address] 07/16/2020 10:42:31 07/16/2020 12:37:27 [id number] TRELL LORD MD HEM/ONC SB CLOSED [address] [place] [address] 01/08/2021 09:50:03 01/08/2021 10:42:03 Health Concerns Section Related Observation LastModified by Organization Detai ls LastModified Time None Recorded Concern Status LastModified by Organization Details LastModified Time None Recorded Advance Directives Directive None Recorded Payers Insurance Date Sequence Insurance Name Policy Number Policy Wen Covered Member ID Wen Member ID Guarantor Name 01/05/2021 1 [employer] (MEDICARE REPLACEMENT/A DVANTAGE - PPO) Corbin Hu [id number] Corbin Hu Notes Date Note Type Note Provider Name and Address Organization Details Recorded Time 06/06/2018 text/html 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 He had single agent Rituxan with a moderate response that lasted for a few months and more recently has received 6 cycles of Treanda/Rituxan. After his first cycle, he was hospitalized with neutropenia and pneumonia. He has been given Neulasta since second cycle and has not required repeat hospitalization. He did have some mild arm swelling after his 3rd cycle and was found to have a right superficial clot. He was placed on aspirin and use warm compresses and this resolved. It was on the side that he had IV placed for his treatment. Clinically, his lymph nodes have markedly decreased since beginning chemotherapy and blood counts have improved. CAT scans performed 2 weeks ago after he completed 6 cycles continued to show no enlarged lymph nodes. Exam and lab work results wall side from a rather profound neutropenia with an ANC of 100. He had been given OnPro Kit wwith his sixth cycle but there was concerned that maybe does have malfunctioned and so 2 weeks ago he was given a Neulasta shot. One week ago neutrophils are back to normal. He is in the day for repeat evaluation, including blood counts. There have been no fevers or signs or symptoms of infection. He has been noticing blood in the semen. Urinalysis noted blood but no clear infection. Still, he was placed on Levaquin but having continued issues. GISSEL LOMAS MD [address] [place] [address], [phone], [facility] 06/06/2018 12:18:53 06/09/2018 text/html Mr. Hu comes in today for evaluation of hemospermia and hematuria at the request of Dr. Lomas. The patient has a history of CLL. The patient noted blood in his urine and semen in April. He denies dysuria. No urgency or frequency. While he was receiving chemotherapy he did increase his hydration which cause some frequency and nocturia. His nocturia is now down to baseline at 2 times per night. He is a former smoker. No family history of bladder or kidney malignancy. No history of stones. He does report some mild pelvic discomfort. No perineal pain. No fevers or chills nausea or vomiting. 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 He had single agent Rituxan with a moderate response that lasted for a few months and more recently has received 6 cycles of Treanda/Rituxan. After his first cycle, he was hospitalized with neutropenia and pneumonia. He has been given Neulasta since second cycle and has not required repeat hospitalization. He did have some mild arm swelling after his 3rd cycle and was found to have a right superficial clot. He was placed on aspirin and use warm compresses and this resolved. It was on the side that he had IV placed for his treatment. Clinically, his lymph nodes have markedly decreased since beginning chemotherapy and blood counts have improved. CAT scans performed 2 weeks ago after he completed 6 cycles continued to show no enlarged lymph nodes. Exam and lab work results wall side from a rather profound neutropenia with an ANC of 100. He had been given OnPro Kit with his sixth cycle but there was concerned that maybe does have malfunctioned and so he was given a Neulasta shot. Following this he was seen in June and blood counts had recovered. He was scheduled to see me in August but was having blood counts monthly. The blood count on July 04 revealed a white count that had markedly increased to 62.7. Hemoglobin and platelet count were normal. It was noted to be increased lymphocyte percentage 56%. We asked him to return today for repeat examination in lab work. He denies any lymphadenopathy and there have been no other signs or symptoms of progression of his CLL. He notes that he has been feeling fine. He did undergo a cystoscopy for hematospermia approximately 1 week prior to the blood count that showed a high white blood cells. This was unremarkable. He is on aspirin daily, as noted above, and ask about stopping this due to the hematospermia. There is no cardiac history. 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 He had single agent Rituxan with a moderate response that lasted for a few months and more recently has received 6 cycles of Treanda/Rituxan finishing in April 2018. After his first cycle, he was hospitalized with neutropenia and pneumonia. He was given Neulasta since second cycle and did not require repeat hospitalization. He did have some mild arm swelling after his 3rd cycle and was found to have a right superficial clot. He was placed on aspirin and use warm compresses and this resolved. It was on the side that he had IV placed for his treatment. Clinically, his lymph nodes resolved since beginning chemotherapy and CAT scans performed after he completed 6 cycles showed no remaining enlarged lymph nodes. He did have prolonged neutropenia on the sixth cycle which required further cytokine support but this did recover. He is in today for examination and lab work. He is not aware of any lymphadenopathy. There has been no new medical problems such as surgeries or hospitalizations. MD [place], [address], [facility] 09/07/2018 14:33:59
[2025-04-30 09:48] LABS: Hematocrit 41.8 % (42.0-52.0); Hemoglobin 12.7 g/dL (14.1-18.0); Immature Granulocytes % 0.2 %; Mean Corpuscular HGB Conc 30.4 g/dL (31.8-35.4); Mean Corpuscular Hemoglobin 29.8 pg (27.0-31.2); Mean Corpuscular Volume 98.1 fl (80-94); Nucleated Red Blood Cells % 0 %; Platelet Count 166 K/mm3 (142-424); Red Blood Count 4.26 M/mm3 (4.60-6.20); Red Cell Distribution Width-SD 55.5 fL
[2025-04-30 09:53] LABS: White Blood Count 121.2 K/mm3 (4.8-10.8)
[2025-04-30 09:56] LABS: Albumin Level 4.5 g/dl (3.5-5.0); Chloride 101 mmol/L (98-107); Potassium 4.5 mmoL/L (3.5-5.1); Sodium 140 mmol/L (136-145)
[2025-04-30 09:58] LABS: Blood Urea Nitrogen 22 mg/dl (9-20); Creatinine Clearance Estimated 50 mL/min (50-200); Creatinine,Serum 1.10 mg/dl (0.66-1.25); Estimated Glomerular Filt Rate 65 ml/min (>60); GFR (African American) 79 ML/MIN (>60)
[2025-04-30 09:59] LABS: Alanine Aminotransferase 26 U/L (12-78); Albumin/Globulin Ratio 2.3 (1.1-1.8); Alkaline Phosphatase 80 U/L (38-126); Anion Gap 10.5 mEq/L (5-15); Aspartate Amino Transferase 56 U/L (17-59); Bilirubin,Total 0.4 mg/dl (0.2-1.3); Calcium 9.5 mg/dl (8.4-10.2); Carbon Dioxide 33 mmol/L (22.0-30.0); Globulin 2.0 g/dL (1.3-3.2); Glucose 79 mg/dl (74-100); Total Protein,Serum 6.5 g/dl (6.3-8.2)
[2025-04-30] MEDS: ONDANSETRON 4MG ODT 16 MG (10:19)
[2025-04-30] MEDS: DEXAMETHASONE 4MG TABLET 12 MG (10:20)
[2025-04-30 10:58] LABS: RBC Morphology Normal; Total Cells Counted 100
[2025-04-30 11:00] VITALS: BP 139/78; PULSE 75; RESP 18; TEMP 37.1; O2SAT 99
[2025-04-30 11:30] VITALS: BP 137/72; PULSE 74
[2025-04-30 12:00] VITALS: BP 130/76; PULSE 73
== END 2025-04-30 23:59 | disposition home or self-care (01) ==
LOC: INF 09:31
PROVIDERS: PCP Family Medicine; Visit Provider Internal Medicine Medical Oncology
DX: Z51.11 Encounter for antineoplastic chemotherapy (principal); Z71.3 Dietary counseling and surveillance; C91.12 Chronic lymphocytic leukemia of B-cell type in relapse
CPT/HCPCS: 80053; 85007; 85025; 85027; 96413; J7040; J8540; J9036; Q0162

== ENCOUNTER 2025-05-01 10:15 | Outpatient (CLI) | payer MEDICARE, SELFPAY ==
--- OUTSIDE RECORDS SUMMARY | 2025-05-01 10:18 | XMS_ITS | Encounter Summary ---
Author Organization Healthcare Address [address] [place] [address] Care Team Providers Care Wink Cutter Operator Name Role Phone Per Patient, None Primary Care Provider Unavaila ble Encounter Details Date Type Department Care Team (Late st Contact Info) Description 01/07/2021 Orders Only [facility] [address] [place] [address] Maurisio Aguilar MD [address] [address] Social History Tobacco Use Types [...] External Glucose 99 74 - 100 mg/dL [facility] External BUN 16 6 - 20 mg/dL [facility] External Creatinine Blood 0.93 0.70 - 1.28 mg/dL [facility] External BUN/Creat Ratio 17 10 - 20 (calc) [facility] External Sodium 141 136 - 145 mmol/L [facility] External Potassium 4.2 3.4 - 5.0 mmol/L [facility] External Chloride 102 98 - 107 mmol/L [facility] External Carbon Dioxide 25 22 - 31 mmol/L [facility] External Anion Gap (AG) 14 7 - 25 (calc) [facility] External Calcium 9.4 8.6 - 10.2 mg/dL [facility] External Total Protein 7.0 6.4 - 8.3 g/dL [facility] External Albumin 4.8 3.5 - 5.2 g/dL [facility] External Globulin 2.2 1.5 - 4.5 g/dL (calc) [facility] External Albumin/Globulin Ratio 2.2 1.1 - 2.5 (calc) [facility] External Bilirubin Total 0.4 0.1 - 1.2 mg/dL [facility] External Alkaline Phosphatase 85 40 - 129 U/L [facility] External AST (SGOT) 22 0 - 40 U/L [facility] External ALT (SGPT) 19 0 - 41 U/L [facility] External EGFR (If AFR/AM) 94 >=60 [facility] External Estimated GFR 81 >=60 [facility] Comment: NOTE Chronic kidney disease is [...] MD LAB BLOOD ORDERABLES Final Res ult [facility] [address] [place] [address], [place] [phone] documented in this encounter Visit Diagnoses Not on filedocumented in this encounter Care Teams Wink Cutter Operator Relationship Specialty Start Date End Date Per [place], [place] [id number] PCP - General 05/02/20 documented as of this encounter
--- OUTSIDE RECORDS SUMMARY | 2025-05-01 10:18 | XMS_ITS | Clinical Summary ---
Author Organization [facility] Address [address] [place] [address] Care Team Providers Care Nutrition Worker Name Role Phone Per Patient, None Primary [...] or (1 - 1-dose 75+ series) 01/05/2023 [id number] Vaccine (4 - season) 2024 07/25/2020, 06/24/2020, [...] patient's age to complete this topic Insurance [facility] MEDICARE Care Teams Nutrition Worker Relationship Specialty Start Date End Date Per Patient, [place] [address] PCP - General 05/02/20
--- OUTSIDE RECORDS SUMMARY | 2025-05-01 10:18 | XMS_ITS | Clinical Summary ---
Author Organization [facility] , [facility] Address [address] [place] [address] Phone Care Team Providers Care Blockers Skiver Name Role Phone JENNI ALFARO, BHAVANA Ren Primary Care Provider [phone] SIVA ALFARO, TRENA Michaels Unavailable [phone] BUSHRA ALFARO, GISSEL Chowdhury Unavailable [phone] Porfirio ALFARO, Kvng Unavailable [phone] Reason for Visit and Chief Complaint EMG Problems Includes: Problems addressed during this encounter and other active Problems All Visits Onset Date Date of Diagnosis Resolved Date Provider Condition Status Joint Pain Shoulder Left 07/28/2023 07/28/2023 Ninfa Rao PA-C Active Last Documented On 5 1:42AM ; [facility] Back Pain 10/30/2021 10/30/2021 Kvng Monroy MD Active Last Documented On 5 1:41AM ; [facility] Plan of Treatment No Plan of [...] 4 12:47PM By Zita Tim ; [facility] valACYclovir HCl 1 GM Oral Tablet 06/15/2023 Provide r: GISSEL TOMLINSON MD Diagnosis: Last Documented On 4 12:47PM By Zita Tim ; [facility] Amoxicillin-Pot Clavulanate 500-125 MG Oral Tablet 04/14/2023 Provider: GISSEL Urena (PO) Diagnosis: Last Documented On 4 12:47PM By Zita Tim ; [facility], [facility] Eliquis 5 MG Oral Tablet 04/12/2022 Provider: ALE TOMLINSON MD Diagnosis: Last Documented On 3 9:04AM By Zita Hodge ; [facility], [facility] Lactobacillus Acidophilus Powder 10/29/2021 Provider : Diagnosis: Last Documented On 2 1:37PM By Dr. Monroy ; [facility], [facility] valACYclovir HCl 1 GM Oral Tablet 10/27/2021 Provide r: Diagnosis: Last Documented On 2 1:36PM By Dr. Monroy ; [facility], [facility] Allopurinol 300 MG Oral Tablet 10/18/2021 Provider: Diagnosis: Last Documented On 2 1:36PM By Dr. Monroy ; [facility], [facility] Medications Administered Includes: Administered Medications from this encounter No Administered Medications Recorded Results Includes: Results discussed during this encounter No Results Recorded For Specified Dates History of Present Illness Includes: History of Present Illness from this encounter No History of Present Illness Recorded Social History Description Last Updated Sex - Male 10/23/2023 Last Documented On 4 12:35PM ; [facility], [facility] Smoking Status Unknown Medical History Includes: [...] Active Last Documented On 4 9:03AM ; [facility], [facility] IVP DYE Allergy 05/13/2022 Active Last Documented On 4 9:03AM ; [facility], [facility] Care Blockers Skiver Name (Identifier) Role/Relation Location/Telecom Last Documented By BHAVANA ARTEAGA MD ([id number]) 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) [address] [place] [address], [address] tel:[phone] Last Documented On 10/23/2023 12:35PM ; [facility], [facility] TRENA PANIAGUA MD ([id number]) [address] [place] [address], [place], , [address] tel:[phone] Last Documented On 11/06/2021 9:35AM ; [facility], [facility] GISSEL TOMLINSON MD ([id number]) [address] [place] [address], [place], [place], [address] tel:[phone] Last Documented On 12/29/2021 9:26AM ; [facility], [facility] Kvng Monroy MD ([id number]) Assigned practitioner (occupation) tel:[phone] Last Documented On 10/23/2023 12:35PM ; [facility], [facility] Encounters Encounter Provider Location (Healthcare Service Location) Date Check-In Time Check-Out Time Diagnosis Encounter Disposition EMG [facility] 023 3:02PM 11:59PM Payer Includes: Active Insurance Policies Plan Name (Payer ID) Coverage Type Member ID Group # Subscriber (ID) Relationship Effective Dates 1 - [employer] [place] [id number]) [id number] Corbin Hu Self 05/02/19 23 - Unknown Last Documented On 3 9:00AM ; [facility], [facility]
--- OUTSIDE RECORDS SUMMARY | 2025-05-01 10:18 | XMS_ITS ---
Author Organization [facility] , [facility] Address [address] [place] [address] Phone Care Team Providers Care Trailer Body Assembler Name Role Phone JENNI ALFARO, BHAVANA Ren Primary Care Provider [phone] SIVA ALFARO, TRENA Michaels Unavailable [phone] BUSHRA ALFARO, GISSEL Chowdhury Unavailable [phone] Porfirio ALFARO, Garcia Unavailable [phone] Reason for Referral 02/25/2022 Encounter for Post Op Date Recorded Target Due Date Referral Type Referring Prov ider Reason For Referral 02/25/2022 Garcia Workman MD referr al to physician Last Documented On 2 9:35AM ; [facility] 01/14/2022 Encounter for Post Op Date Recorded Target Due Date Referral Type Referring Prov ider Reason For Referral 01/14/2022 Gracia Workman MD referr al to physician Last Documented On 2 11:12AM ; [facility] 10/29/2021 Encounter for Physician Specified Date Recorded Target Due Date Referral Type Referring Prov ider Reason For Referral 10/29/2021 Garica Workman MD referr al to physician Last Documented On 2 9:37AM ; [facility] Problems Includes: Active, inactive, and resolved Problems All Visits Onset Date Date of Diagnosis Resolved Date Provider Condition Status Joint Pain Shoulder Left 07/28/2023 07/28/2023 Ninfa Rao PA-C Active Last Documented On 5 1:42AM ; [facility] Back Pain 10/30/2021 10/30/2021 Garcia Workman MD Active Last Documented On 5 1:41AM ; [facility], [facility] Plan of Treatment Pending Tests Order Diagnosis Results Due Ordering P rovider Procedure/Tests EMG 05/27/22 CHRISTOFER HUBBARD PA-C Last Documented On 3 9:34AM ; [facility] Procedure/Tests Nerve Conduction Study 05/27/22 CHRISTOFER THORPE PA-C Last Documented On 3 9:34AM ; [facility] Radiology - MRI MRI Lumbar Spine 05/27/22 PATIENCE THORPE PA-C Last Documented On 3 9:35AM ; [facility], [facility] Instructions to patient Lose weight Last Documented On 3 8:42AM ; [facility] Lose weight Last Documented On 3 9:04AM ; [facility] Lose weight Last Documented On 2 9:35AM ; [facility] Lose weight Last Documented On 2 11:12AM ; [facility], [facility] Lose weight Last Documented On 2 1:38PM ; [facility], [facility] Assessments Includes: Assessments for all patient encounters Findings Encounter Date No diagnosis of underweight [Patient Encounter] with Garcia Workman MD 12/24/2021 Last Documented On 2 4:47PM ; [facility], [facility] No diagnosis of underweight Physician Specified with Garcia Workman MD 10/29/2021 Last Documented On 2 1:38PM ; [facility], [facility] Instructions Includes: Instructions for all patient encounters Instructions to patient Lose weight Last Documented On 3 8:42AM ; [facility], [facility] Lose weight Last Documented On 3 9:04AM ; [facility] Lose weight Last Documented On 2 9:35AM ; [facility] Lose weight Last Documented On 2 11:12AM ; [facility] Lose weight Last Documented On 2 1:38PM ; [facility], [facility] Medical Equipment - Implanted Devices Includes: Current and historical Devices No Medical Equipment Recorded Medications Includes: Current and historical Medications Current Medications (continue as prescribed) Diclofenac Sodium 75 MG Oral Tablet Delayed Release Provider: Diagnosis: Last Documented On 4 12:47PM By Zita Tim ; [facility], [facility] valACYclovir HCl 1 GM Oral Tablet 06/15/2023 Provide r: GISSEL TOMLINSON MD Diagnosis: Last Documented On 4 12:47PM By Zita Tim ; [facility], [facility] Amoxicillin-Pot Clavulanate 500-125 MG Oral Tablet 04/14/2023 Provider: GISSEL Urena (PO) Diagnosis: Last Documented On 4 12:47PM By Zita Tim ; [facility], [facility] Eliquis 5 MG Oral Tablet 04/12/2022 Provider: ALE TOMLINSON MD Diagnosis: Last Documented On 3 9:04AM By Zita Hodge ; [facility] Lactobacillus Acidophilus Powder 10/29/2021 Provider : Diagnosis: Last Documented On 2 1:37PM By Dr. Workman ; [facility], [facility] valACYclovir HCl 1 GM Oral Tablet 10/27/2021 Provide r: Diagnosis: Last Documented On 2 1:36PM By Dr. Workman ; [facility], [facility] Allopurinol 300 MG Oral Tablet 10/18/2021 Provider: Diagnosis: Last Documented On 2 1:36PM By Dr. Workman ; [facility], [facility] Past Medications on file Medrol 4 MG Oral Tablet Therapy Pack 07/28/2023 - 08/04/2023 Provider: Ninfa capps PA-C Diagnosis: take as directed TAKE DIRECTED Last Documented On 4 1:16PM By Zita Tim ; [facility] Gabapentin 300 MG Oral Capsule 07/28/2023 - 08/07/2023 Provider: Marquis wodo MD Diagnosis: one capsule by mouth three times a day Last Documented On 4 2:02PM By Marquis Truong ; [facility], [facility] Eliquis 5 MG Oral Tablet 01/14/2022 - 02/13/2022 Provi susan: Garcia Workman MD Diagnosis: Take 1 tablet PO twice a day Last Documented On 2 2:16PM By Zita Hodge ; [facility], [facility] oxyCODONE-Acetaminophen 7.5- 325 MG Oral Tablet 01/01/2022 - 01/11/2022 Provider: Garcia Workman MD Diagnosis: Take 1 tablet PO up to three times a day, PRN post op pain Last Documented On 2 3:17PM By Dr. Workman ; [facility] oxyCODONE-Acetaminophen 7.5- 325 MG Oral Tablet 01/01/2022 - 01/11/2022 Provider: GARCIA WORKMAN MD Diagnosis: Last Documented On 3 9:04AM By Zita Hodge ; [facility] Lactobacillus Acidophilus Powder 10/30/2021 - 10/30/19 Provider: Diagnosis: Last Documented On 2 1:37PM By Dr. Workman ; [facility] Eliquis 5 MG Oral Tablet 10/30/2021 - 10/29/2021 Provi susan: Diagnosis: Last Documented On 2 1:37PM By Dr. Workman ; [facility] Allopurinol 300 MG Oral Tablet 10/30/2021 - 10/29/2021 Provider: Diagnosis: Last Documented On 2 1:37PM By Dr. Workman ; [facility] Eliquis 5 MG Oral Tablet 10/18/2021 - 12/18/2021 Provi susan: Diagnosis: Last Documented On 2 12:18PM By Zita Hodge ; [facility], [facility] Medications Administered Includes: Administered Medications in patient's chart No Administered Medications Recorded Results Includes: Results from 05/01/2024 through 05/01/2025 No Results Recorded For Specified Dates Social History Description Last Updated Tobacco non-user 01/14/2022 Last Documented On 2 4:11PM ; [facility] Not a smoker 10/30/2021 Last Documented On 2 2:57PM ; [facility] Caffeine use 10/30/2021 Last Documented On 2 2:57PM ; [facility] Exercising regularly 10/30/2021 Last Documented On 2 2:57PM ; [facility], [facility] No recent change in diet 10/30/2021 Last Documented On 2 2:57PM ; [facility], [facility] Not a current smoker. 10/30/2021 Last Documented On 2 2:57PM ; [facility] Not using alcohol 10/30/2021 Last Documented On 2 2:57PM ; [facility], [facility] Not using drugs 10/30/2021 Last Documented On 2 2:57PM ; [facility], [facility] Non-smoker 10/29/2021 Last Documented On 2 2:57PM ; [facility], [facility] Sex - Male 10/23/2023 Last Documented On 4 12:35PM ; [facility], [facility] Smoking Status Unknown Procedures and Surgical History Surgical History Last Updated History of back surgery 06/2021 Right L4-5 Laminectomy/Discectomy @ E 01/14/2022 Last Documented On 2 4:11PM ; [facility], [facility] Medical History Includes: Medical History in patient's chart Description Last Updated Recent immunization for flu 2020 022 Last Documented On 2 4:11PM ; [facility], [facility] Past surgical history non-contributory 0 11/04/2021 Last Documented On 2 2:57PM ; [facility], [facility] History of History of Blood Clots 2021 Last Documented On 2 2:57PM ; [facility], [facility] History of History of Cancer 10/30/2021 Last Documented On 2 2:57PM ; [facility], [facility] No recent immunization for pneumococcal pneumonia 10/30/2021 Last Documented On 2 2:57PM ; [facility], [facility] Family History Includes: Family History in patient's chart Description Last Updated Diabetes mellitus 07/28/2023 Last Documented On 4 9:15AM ; [facility] Family history of cancer 07/28/2023 Last Documented On 4 9:15AM ; [facility] Family history of heart disease 07/28/19 Last Documented On 4 9:15AM ; [facility] Family history of systemic hypertension 07/28/2023 Last Documented On 4 9:15AM ; [facility] No significant family history 10/30/2021 Last Documented On 2 2:57PM ; [facility] Mental Status Description No anxiety Last Documented On 4 9:03AM ; [facility] No anxiety Last Documented On 4 12:48PM ; [facility] No anxiety Last Documented On 3 8:42AM ; [facility] No anxiety Last Documented On 3 9:04AM ; [facility] No anxiety Last Documented On 2 9:35AM ; [facility] No anxiety Last Documented On 2 11:10AM ; [facility] No anxiety Last Documented On 2 4:47PM ; [facility] No anxiety Last Documented On 2 8:41AM ; [facility] Immunizations Includes: Immunizations in patient's chart Vaccine Dose # Date Site Reaction(s) Status Source Influenza 1 01/30/2021 Complete (Reported) Patient Last Documented On 2 5:05PM ; [facility] PCV (Pneumovax 23) 1 10/29/2021 Complete (Refused - Patient objection) [facility] Last Documented On 2 5:05PM ; [facility] Allergies Includes: Active, inactive, and resolved Allergies Substance Type Reaction Onset Date Resolved Date Statu s Shellfish Allergy 05/13/2022 Active Last Documented On 4 9:03AM ; [facility] IVP DYE Allergy 05/13/2022 Active Last Documented On 4 9:03AM ; [facility] Care Trailer Body Assembler Name (Identifier) Role/Relation Location/Telecom Last Documented By BHAVANA ARTEAGA MD ([id number]) 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) [address], [place], [place], [address] tel:[phone] Last Documented On 10/23/2023 12:35PM ; [facility] TRENA PANIAGUA MD ([id number]) [address] [place], [address] tel:[phone] Last Documented On 11/06/2021 9:35AM ; [facility] GISSEL TOMLINSON MD ([id number]) [address] [place] [address] [place], [address] tel:[phone] Last Documented On 12/29/2021 9:26AM ; [facility] Garcia Workman MD ([id number]) Assigned practitioner (occupation) tel:[phone] Last Documented On 10/23/2023 12:35PM ; [facility] Payer Includes: Active Insurance Policies Plan Name (Payer ID) Coverage Type Member ID Group # Subscriber (ID) Relationship Effective Dates 1 - [employer] [id number] Corbin Hu Self 05/02/19 23 - Unknown Last Documented On 3 9:00AM ; [facility]
--- OUTSIDE RECORDS SUMMARY | 2025-05-01 10:18 | XMS_ITS | Referral Summary ---
Author Organization [employer] ([place], [place], [place], [place], [place]) Address [address] [place] [address] Care Team Providers Care Conveyor Line Battery Charger Name Role Phone Eladio Lomas MD Unavailable Breanna Crow PA-C Unavailable [phone] Allergies Active Allergy Reactions Criticality Noted [...] speak a language other than Citizen Of [place] [facility]? No 12/11/2024 Do you want [...] Plan of Treatment Not on file Insurance [facility] MEDIC[facility] PPO [facility] MED[facility] PPO Advance Directives For more information, please contact: [phone] * DNR - Limited Additional Intervention (Latest Code Status on File) Date Activated Date Inactivated Comments 12/11/2024 4:28 PM 12/14/2024 3:42 PM Care Teams Conveyor Line Battery Charger Relationship Specialty Start Date End Date Eladio Lomas MD [address] [facility] [address] [place] [address] Medical Oncologist Hematology and Oncology 07/08/22 Breanna Crow, PA-C [address] [place] [address] Physician Pharmacy Account Director Oncology 07/08/22
--- OUTSIDE RECORDS SUMMARY | 2025-05-01 10:18 | XMS_ITS | Clinical Summary ---
Author Organization [facility] , [facility] Address [address] [place] [address] Phone Care Team Providers Care Equipment Cleaner Name Role Phone JENNI ALFARO, BHAVANA Ren Primary Care Provider [phone] SIVA ALFARO, TRENA Michaels Unavailable [phone] BUSHRA ALFARO, GISSEL Chowdhury Unavailable [phone] Porfirio ALFARO, Kvng Unavailable [phone] Reason for Visit and Chief Complaint MRI Problems Includes: Problems addressed during this encounter and other active Problems All Visits Onset Date Date of Diagnosis Resolved Date Provider Condition Status Joint Pain Shoulder Left 07/28/2023 07/28/2023 Ninfa Rao PA-C Active Last Documented On 5 1:42AM ; [facility] Back Pain 10/30/2021 10/30/2021 Kvng Monroy MD Active Last Documented On 5 1:41AM ; [facility] Plan of Treatment No Plan [...] On 4 12:47PM By Zita Tim ; [facility] valACYclovir HCl 1 GM Oral Tablet 06/15/2023 Provide r: GISSEL TOMLINSON MD Diagnosis: Last Documented On 4 12:47PM By Zita Tim ; [facility] Amoxicillin-Pot Clavulanate 500-125 MG Oral Tablet 04/14/2023 Provider: GISSEL Urena (PO) Diagnosis: Last Documented On 4 12:47PM By Zita Tim ; [facility], [facility] Eliquis 5 MG Oral Tablet 04/12/2022 Provider: ALE TOMLINSON MD Diagnosis: Last Documented On 3 9:04AM By Zita Hodge ; [facility], [facility] Lactobacillus Acidophilus Powder 10/29/2021 Provider : Diagnosis: Last Documented On 2 1:37PM By Dr. Monroy ; [facility], [facility] valACYclovir HCl 1 GM Oral Tablet 10/27/2021 Provide r: Diagnosis: Last Documented On 2 1:36PM By Dr. Monroy ; [facility], [facility] Allopurinol 300 MG Oral Tablet 10/18/2021 Provider: Diagnosis: Last Documented On 2 1:36PM By Dr. Monroy ; [facility], [facility] Medications Administered Includes: Administered Medications from this encounter No Administered Medications Recorded Results Includes: Results discussed during this encounter No Results Recorded For Specified Dates History of Present Illness Includes: History of Present Illness from this encounter No History of Present Illness Recorded Social History Description Last Updated Sex - Male 10/23/2023 Last Documented On 4 12:35PM ; [facility], [facility] Smoking Status Unknown Medical History Includes: [...] Active Last Documented On 4 9:03AM ; [facility], [facility] IVP DYE Allergy 05/13/2022 Active Last Documented On 4 9:03AM ; [facility], [facility] Care Equipment Cleaner Name (Identifier) Role/Relation Location/Telecom Last Documented By BHAVANA ARTEAGA MD ([id number]) 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) [address] [place] [address], [address] tel:[phone] Last Documented On 10/23/2023 12:35PM ; [facility], [facility] TRENA PANIAGUA MD ([id number]) [address] [address], [place], [place], , [address] tel:[phone] Last Documented On 11/06/2021 9:35AM ; [facility], [facility] GISSEL TOMLINSON MD ([id number]) [address] [place] [address], [place], [place], [address] tel:[phone] Last Documented On 12/29/2021 9:26AM ; [facility] Kvng Monroy MD ([id number]) Assigned practitioner (occupation) tel:[phone] Last Documented On 10/23/2023 12:35PM ; [facility], [facility] Encounters Encounter Provider Location (Healthcare Service Location) Date Check-In Time Check-Out Time Diagnosis Encounter Disposition MRI [facility] 023 1:55PM 2:32PM Payer Includes: Active Insurance Policies Plan Name (Payer ID) Coverage Type Member ID Group # Subscriber (ID) Relationship Effective Dates 1 - [employer] ([id number]) [id number] Corbin Hu Self 05/02/19 23 - Unknown Last Documented On 3 9:00AM ; [facility], [facility]
--- OUTSIDE RECORDS SUMMARY | 2025-05-01 10:18 | XMS_ITS | Clinical Summary ---
Author Organization [facility] , [facility] Address [address] [place] [address] Phone Care Team Providers Care Ton Cylinder Inspector Name Role Phone JENNI ALFARO, BHAVANA Ren Primary Care Provider [phone] SIVA ALFARO, TRENA Michaels Unavailable [phone] BUSHRA ALFARO, GISSEL Chowdhury Unavailable [phone] Porfirio ALFARO, Kvng Unavailable [phone] Reason for Visit and Chief Complaint The Chief Complaint is: Low back pain/drop foot Problems Includes: Problems addressed during this encounter and other active Problems All Visits Onset Date Date of Diagnosis Resolved Date Provider Condition Status Joint Pain Shoulder Left 07/28/2023 07/28/2023 Ninfa Rao PA-C Active Last Documented On 5 1:42AM ; [facility] Back Pain 10/30/2021 10/30/2021 Kvng Monroy MD Active Last Documented On 5 1:41AM ; [facility] Plan of Treatment Fall Risk [...] - Last Documented On 06/07/2022 9:08AM ; [facility] I have offered patient an epidural injection to see if this will improve his symptoms. He will think about this some. Otherwise we will just have to wait and see how much recovery occurs over time. - Last Documented On 06/07/2022 9:08AM ; [facility] Pending Tests Order Diagnosis Results Due Ordering P rovider Procedure/Tests EMG 05/27/22 CHRISTOFER HUBBARD PA-C Last Documented On 3 9:34AM ; [facility] Procedure/Tests Nerve Conduction Study 05/27/22 CHRISTOFER THORPE PA-C Last Documented On 3 9:34AM ; [facility] Radiology - MRI MRI Lumbar Spine 05/27/22 PATIENCE THORPE PA-C Last Documented On 3 9:35AM ; [facility] Instructions to patient Lose weight Last Documented On 3 8:42AM ; [facility] Assessments Includes: Assessments from this encounter Findings 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 - Last Documented On 06/07/2022 9:08AM ; [facility] Instructions Includes: Instructions from this encounter Instructions to patient Lose weight Last Documented On 3 8:42AM ; [facility] Medical Equipment - Implanted Devices Includes: Current Devices No Medical Equipment Recorded Medications Includes: Medications discussed during this encounter and other current Medications Current Medications (continue as prescribed) Diclofenac Sodium 75 MG Oral Tablet Delayed Release Provider: Diagnosis: Last Documented On 4 12:47PM By Zita Tim ; [facility] valACYclovir HCl 1 GM Oral Tablet 06/15/2023 Provide r: GISSEL TOMLINSON MD Diagnosis: Last Documented On 4 12:47PM By Zita Tim ; [facility] Amoxicillin-Pot Clavulanate 500-125 MG Oral Tablet 04/14/2023 Provider: GISSEL Urena (PO) Diagnosis: Last Documented On 4 12:47PM By Zita Tim ; [facility] Eliquis 5 MG Oral Tablet 04/12/2022 Provider: ALE TOMLINSON MD Diagnosis: Last Documented On 3 9:04AM By Zita Hodge ; [facility] Lactobacillus Acidophilus Powder 10/29/2021 Provider : Diagnosis: Last Documented On 2 1:37PM By Dr. Monroy ; [facility] valACYclovir HCl 1 GM Oral Tablet 10/27/2021 Provide r: Diagnosis: Last Documented On 2 1:36PM By Dr. Monroy ; [facility] Allopurinol 300 MG Oral Tablet 10/18/2021 Provider: Diagnosis: Last Documented On 2 1:36PM By Dr. Monroy ; [facility] Past Medications on file Medrol 4 MG Oral Tablet Therapy Pack 07/28/2023 - 08/04/2023 Provider: Ninfa capps PA-C Diagnosis: take as directed TAKE DIRECTED Last Documented On 4 1:16PM By Zita Tim ; [facility] Gabapentin 300 MG Oral Capsule 07/28/2023 - 08/07/2023 Provider: Marquis wood MD Diagnosis: one capsule by mouth three times a day Last Documented On 4 2:02PM By Marquis Truong ; [facility] Eliquis 5 MG Oral Tablet 01/14/2022 - 02/13/2022 Provi susan: Kvng Monroy MD Diagnosis: Take 1 tablet PO twice a day Last Documented On 2 2:16PM By Zita Hodge ; [facility] oxyCODONE-Acetaminophen 7.5- 325 MG Oral Tablet 01/01/2022 - 01/11/2022 Provider: Kvng Monroy MD Diagnosis: Take 1 tablet PO up to three times a day, PRN post op pain Last Documented On 2 3:17PM By Dr. Monroy ; [facility] Medications Administered Includes: Administered Medications [...] 01/14/2022 Last Documented On 3 8:42AM ; [facility] Caffeine use 10/30/2021 Last Documented On 3 8:42AM ; [facility] Exercising regularly 10/30/2021 Last Documented On 3 8:42AM ; [facility] No recent change in diet 10/30/2021 Last Documented On 3 8:42AM ; [facility] Not a current smoker. 10/30/2021 Last Documented On 3 8:42AM ; [facility] Not using alcohol 10/30/2021 Last Documented On 3 8:42AM ; [facility] Not using drugs 10/30/2021 Last Documented On 3 8:42AM ; [facility] Sex - Male 10/23/2023 Last Documented On 4 12:35PM ; [facility] Smoking Status Unknown Procedures and Surgical History Includes: Procedures from this encounter Procedures Code Diagnosis Performing Provider Service L ocation Service Date use of tobacco assessment performed 1000F Last Documented On 3 8:42AM ; [facility] patient screened for future fall risk: documentation of any fall with injury in past year 1100F Last Documented On 3 8:42AM ; [facility] EMG was performed 06/03/2022 BLE @ [facility] [id number] Last Documented On 3 8:43AM ; [facility] an X-ray was performed 10/29/2021 LSyutan @ [facility] 7 6499 Last Documented On 3 8:42AM ; [facility] a CT scan was performed 10/15/2021 LSyutan @ [facility] [address] Last Documented On 3 8:42AM ; [facility] an MRI was performed LSpine @ [facility] ~10/16/2021 TSpine @ [facility] ~06/03/2022 LSyutan @ [facility] [address] Last Documented On 3 8:43AM ; [facility] Surgical History Last Updated History of back surgery 06/2021 Right L4-5 Laminectomy/Discectomy @ [facility] 01/14/2022 Last Documented On 3 8:42AM ; [facility] Medical History Includes: Medical History addressed during this encounter Description Last Updated Recent immunization for flu 2020 022 Last Documented On 3 8:42AM ; [facility] History of History of Blood Clots 2021 Last Documented On 3 8:42AM ; [facility] History of History of Cancer 10/30/2021 Last Documented On 3 8:42AM ; [facility] No recent immunization for pneumococcal pneumonia 10/30/2021 Last Documented On 3 8:42AM ; [facility] Family History Includes: Family History addressed during this encounter Description Last Updated No significant family history 10/30/2021 Last Documented On 3 8:42AM ; [facility] Review of Systems Includes: Review [...] Last Documented On 3 8:42AM ; [facility] Physical Exam Includes: Physical Exam from this encounter Allergies Includes: Active Allergies Substance Type Reaction Onset Date Resolved Date Statu s Shellfish Allergy 05/13/2022 Active Last Documented On 4 9:03AM ; [facility] IVP DYE Allergy 05/13/2022 Active Last Documented On 4 9:03AM ; [facility] Care Ton Cylinder Inspector Name (Identifier) Role/Relation Location/Telecom Last Documented By BHAVANA ARTEAGA MD ([id number]) 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) [address] [place] [address], [place], [address] tel:[phone] Last Documented On 10/23/2023 12:35PM ; [facility] TRENA PANIAGUA MD ([id number]) [address] [place] [address], [place], [address] tel:[phone] Last Documented On 11/06/2021 9:35AM ; [facility] GISSEL TOMLINSON MD ([id number]) [address] [place] [address], [address] tel:[phone] Last Documented On 12/29/2021 9:26AM ; [facility] Kvng Monroy MD ([id number]) Assigned practitioner (occupation) tel:[phone] Last Documented On 10/23/2023 12:35PM ; [facility] Encounters Encounter Provider Location (Healthcare Service Location) Date Check-In Time Check-Out Time Diagnosis Encounter Disposition Follow Up CHRISTOFER THORPE PA-C [facility] 2022 8:32AM 9:04AM Payer Includes: Active Insurance Policies Plan Name (Payer ID) Coverage Type Member ID Group # Subscriber (ID) Relationship Effective Dates 1 - [employer] [place] [id number] Corbin Hu Self 05/02/19 23 - Unknown Last Documented On 9:00AM ; [facility] Clinical Notes Includes: Clinical Notes from this encounter * Progress note Date Encounter Last Documented by 06/07/2022 Follow Up Last documented on 06/07/2022; 9:08 AM, CHRISTOFER Devries; [facility] Active Problems & Conditions - [...] Functions: EMG was performed 06/03/2022 BLE @ [facility]. Imaging: X-Ray: An X-ray was performed 10/29/2021 [facility] @ [facility]. CT Scan: A CT scan was performed 10/15/2021 [facility] @ [facility]. MRI Scan: An MRI was performed 10/15/2021 LSyutan @ [facility] 10/16/2021 TSpine @ [facility] 06/03/2022 [facility] @ [facility]. Counseling/Education - Lose weight Plan Fall Risk [...] Care Team - BHAVANA ARTEAGA MD - OTOLARYNGOLOGY SURGEON - TRENA PANIAGUA MD - Infectious Disease - GISSEL TOMLINSON MD - Oncology Health Reminders - Assess Tobacco Use satisfied 01/14/2022.
--- OUTSIDE RECORDS SUMMARY | 2025-05-01 10:18 | XMS_ITS | Clinical Summary ---
Author Organization [facility] Address [address] [place] [address] Phone Care Team Providers Care Manager Nicu Name Role Phone Godfrey ALFARO, José Miguel Michaels [facility] [phone] [ ] Conditions or Problems Problem Name Problem Code Onset Date Status Entry Date Provider Comment Standard Description Annotate Acute DVT of leg, right 746180482 (SNOMED CT) Active José Miguel Donahue MD Deep venous thrombosis of lower extremity Health advice, education, or counseling 524296624 (SNOMED CT) Active José Miguel Donahue MD Procedure carried out on subject PERSONAL HISTORY OF IMMUNOSUPPRES PILLO THERAPY 103123156 (SNOMED CT) 12/10 Active 12/10 José Miguel Donahue MD History of immunosuppressiv e therapy Foot drop, right 6817644 (SNOMED CT) 10/27 Active 10/27 José Miguel Donahue MD Foot-drop Benign Essential Hypertension 40510823 (SNOMED CT) 10/22 Active 10/22 Dorothy Juanpablo Benign hypertension Disseminated herpes zoster 39042235 (SNOMED CT) 10/22 Active 10/22 Dorothy Juanpablo Disseminated herpes zoster 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 10/22 Dorothy Juanpablo Leukemoid reaction Chronic lymphoid leukemia 94764247 (SNOMED CT) 10/22 Active 10/22 Dorothy Juanpablo Chronic lymphoid leukemia, disease Medications Medication Instructions Start Date Stop Date Generic Name [facility] Provider ELIQUIS 5 MG TABS twice a day apixaban 18384872716 Tonia Noland VALTREX 1 GM TABS Take 1 tablet by mouth once a day valacyclovir 14843150594 José Miguel Donahue MD ALLOPURINOL 300 MG TABS 1 tablet by mouth once a day allopurinol 92711540559 Suzanne Cope ELIQUIS 5 MG TABS 2 tablet by mouth twice a day apixaban 86311470243 Suzanne Cope PREDNISONE 10 MG TABS Take as directed prednisone 27988216482 Suzanne Cope VALTREX 500 MG TABS 2 tablet by mouth once a day valacyclovir 88718645954 Faby Donahue VALTREX 1 GM TABS Take 1 tablet by mouth once a day valacyclovir 51113626481 Faby Donahue ALLOPURINOL 300 MG TABS 1 tablet by mouth once a day allopurinol 07892305919 Marianayvette Wiggins ELIQUIS 5 MG TABS 2 tablet by mouth twice a day apixaban 03759523007 Marianayvette Wiggins Lactobacillus acidophilus 1 billion cell capsule 1 capsule by mouth twice a day lactobacillus acidophilus Mariana Wiggins MULTI-VITAMINS TABS multivitamin 04789062196 Mariana Wiggins PREDNISONE 10 MG TABS Take as directed prednisone 21855953197 Mariana Wiggins TYLENOL 325 MG TABS 2 tablet by mouth every four hours as needed acetaminophen 01653035839 Mariana Wiggins VALTREX 500 MG TABS 2 tablet by mouth once a day valacyclovir 75052361492 Mariana Rosalie Medications Administered No information available. [...] Labs CPT-sl STAT Labs CPT-sl STAT Labs [id number] CMP [id number] CBC with Differential 2021 Vital Signs Date [...]
--- OUTSIDE RECORDS SUMMARY | 2025-05-01 10:18 | XMS_ITS | Clinical Summary ---
Author Organization [facility] ([place], [place], [place], [place], [place]) Address [address] [place] [address] Care Team Providers Care Automatic Driller And Reamer Name Role Phone Eladio Lomas MD Unavailable Breanna Crow PA-C Unavailable [phone] Allergies Active Allergy Reactions Criticality Noted [...] Do you speak a language other than Brazilian at [facility]? No 12/11/2024 Do [...] 01/28/2025 Pneumococcal 50+ years Completed 02/09/2022 Insurance [facility] MEDICARE PPO [facility] MEDICARE PPO Advance Directives For more information, please contact: [phone] * DNR - Limited Additional Intervention (Latest Code Status on File) Date Activated Date Inactivated Comments 12/11/2024 4:28 PM 12/14/2024 3:42 PM Care Teams Automatic Driller And Reamer Relationship Specialty Start Date End Date Eladio Lomas MD [address] [facility] [address] [place] [address] Medical Oncologist Hematology and Oncology 07/08/22 Breanna Crow, PARebelC [address] [facility] [address] [place] [address] Physician Machine I Cutter Oncology 07/08/22
--- OUTSIDE RECORDS SUMMARY | 2025-05-01 10:18 | XMS_ITS | Encounter Summary ---
Author Organization Healthcare Address [address] [place] [address] Care Team Providers Care Manager Rn Name Role Phone Per Patient, None Primary Care Provider Unavaila ble Encounter Details Date Type Department Care Team (Late st Contact Info) Description 01/07/2021 Orders Only [facility] at [facility] [address] [place] [address] Maurisio Aguilar MD [address] [address] Social History Tobacco Use Types [...] Band Neutrophil% 0.0 0.0 - 7.0 % [facility] External Atypical Lymph% 4(H) 0 - 1 % [facility] External Metamyelocyte % 0 0 - 1 % [facility] External Myelocyte % 0 0 - 1 % [facility] External Promyelocyte% 0 % [facility] External Blast% 0 % [facility] External Nucleated RBC%-Manual 0 /100 WBC [facility] External Smudge Cells 0 [facility] External Platelet Morphology NORMAL [facility] External Ovalocytes SLIGHT(A) [facility] External Tear Drop Cells SLIGHT(A) [facility] 01/07/2021 10:0 5 AM EDT 01/07/2021 10:20 AM EDT us Maurisio Aguilar MD LAB BLOOD ORDERABLES Final Res ult Performing Organization Address City/State/[facility] [[email or web address]] Co de Phone Number [facility] [address] [place] [address], documented in this encounter Visit Diagnoses Not on filedocumented in this encounter Care Teams Manager Rn Relationship Specialty Start Date End Date Per Patient, [place] [address] PCP - General 05/02/20 documented as of this encounter
--- OUTSIDE RECORDS SUMMARY | 2025-05-01 10:18 | XMS_ITS | Encounter Summary ---
Author Organization [facility] Address [address] [place] [address] Care Team Providers Care Computer Forensics Examiner Name Role Phone Per Patient, None Primary Care Provider Unavaila ble Encounter Details Date Type Department Care Team (Late st Contact Info) Description 01/07/2021 Orders Only [facility] at [facility] [address] [place] [address] Maurisio Aguilar MD [address] [address] Social History Tobacco Use Types [...] External WBC 6.9 3.8 - 10.8 K/uL [facility] External Red Blood Cell (RBC) 5.24 4.20 - 5.80 M/uL [facility] External Hemoglobin 15.5 14.0 - 18.0 G/DL [facility] External Hematocrit 44.1 40.0 - 52.0 % [facility] External MCV 84 80 - 100 fL [facility] External MCH 30 26 - 35 PG [facility] External MCHC 35 32 - 36 G/DL [facility] External RDW 13.5 11.0 - 15.0 % [facility] External Mean Platelet Volume 7.6 6.2 - 10.5 fL [facility] External Platelets 162 130 - 400 K/uL [facility] External Neutrophil# 3.0 1.6 - 8.4 K/uL [facility] External Lymphocyte# 3.2 0.4 - 5.1 K/uL [facility] External Absolute Monocyte (Abs Newton) 0.4 0.0 - 1.2 K/uL [facility] External Eosinophils# 0.1 0.0 - 0.8 K/uL [facility] External Baso# 0.0 0.0 - 0.3 K/uL [facility] External Neutrophils % 43.0 42.0 - 78.0 % [facility] External Lymphocyte % 46.0 11.0 - 47.0 % [facility] External Monocyte % 6.0 0.0 - 11.0 % [facility] External Eosinophil% 1.0 0.0 - 7.0 % [facility] External Basophil % 0.0 0.0 - 3.0 % [facility] External Nucleated RBC%-Auto 0.2 0.0 - 0.9 % [facility] External Nucleated RBC Absolute 0.01 Not Estab. K/uL [facility] 01/07/2021 10:0 5 AM EDT 01/07/2021 10:20 AM EDT us Maurisio Aguilar MD LAB BLOOD ORDERABLES Final Res ult Performing Organization Address City/State/[facility] Co de Phone Number [facility] [address] [place] [id number], documented in this encounter Visit Diagnoses Not on filedocumented in this encounter Care Teams Computer Forensics Examiner Relationship Specialty Start Date End Date Per Patient, [place] [address] PCP - General 05/02/20 documented as of this encounter
--- OUTSIDE RECORDS SUMMARY | 2025-05-01 10:18 | XMS_ITS | Clinical Summary ---
Author Organization [facility] Address [address] [place] [address] Phone Care Team Providers Care It Quality Analyst Name Role Phone JENNI ALFARO, BHAVANA Ren Primary Care Provider [phone] SIVA ALFARO, TRENA Michaels Unavailable [phone] BUSHRA ALFARO, GISSEL Chowdhury Unavailable [phone] [...] Active Last Documented On 5 1:42AM ; [facility] Back Pain 10/30/2021 10/30/2021 Kvng Monroy MD Active Last Documented On 5 1:41AM ; [facility] Plan of Treatment Fall Risk Assessment: [...] - Last Documented On 08/18/2023 9:13AM ; [facility] He is back at baseline in his symptoms slowly resolved to being asymptomatic at this point over the course of about 3-4 weeks. I think we just watch this. We will hold off on any testing at this point. No formal restrictions - Last Documented On 08/18/2023 9:13AM ; [facility] Assessments Includes: Assessments from this encounter Findings Brachial plexitis - Last Documented On 08/18/2023 9:13AM ; [facility], [facility] Medical Equipment - Implanted Devices Includes: Current Devices No Medical Equipment Recorded Medications Includes: Medications discussed during this encounter and other current Medications Current Medications (continue as prescribed) Diclofenac Sodium 75 MG Oral Tablet Delayed Release Provider: Diagnosis: Last Documented On 4 12:47PM By Zita Tim ; [facility] valACYclovir HCl 1 GM Oral Tablet 06/15/2023 Provide r: GISSEL TOMLINSON MD Diagnosis: Last Documented On 4 12:47PM By Zita Tim ; [facility] Amoxicillin-Pot Clavulanate 500-125 MG Oral Tablet 04/14/2023 Provider: GISSEL Urena (PO) Diagnosis: Last Documented On 4 12:47PM By Zita Tim ; [facility] Eliquis 5 MG Oral Tablet 04/12/2022 Provider: ALE TOMLINSON MD Diagnosis: Last Documented On 3 9:04AM By Zita Hodge ; [facility] Lactobacillus Acidophilus Powder 10/29/2021 Provider : Diagnosis: Last Documented On 2 1:37PM By Dr. Monroy ; [facility] valACYclovir HCl 1 GM Oral Tablet 10/27/2021 Provide r: Diagnosis: Last Documented On 2 1:36PM By Dr. Monroy ; [facility], [facility] Allopurinol 300 MG Oral Tablet 10/18/2021 Provider: Diagnosis: Last Documented On 2 1:36PM By Dr. Monroy ; [facility] Past Medications on file Medrol 4 MG Oral Tablet Therapy Pack 07/28/2023 - 08/04/2023 Provider: Nifna ALMEIDAC Diagnosis: take as directed TAKE DIRECTED Last Documented On 4 1:16PM By Zita Tim ; [facility] Gabapentin 300 MG Oral Capsule 07/28/2023 - 08/07/2023 Provider: Marquis wood MD Diagnosis: one capsule by mouth three times a day Last Documented On 4 2:02PM By Marquis Truong ; [facility] Eliquis 5 MG Oral Tablet 01/14/2022 - 02/13/2022 Provi susan: Kvng Monroy MD Diagnosis: Take 1 tablet PO twice a day Last Documented On 2 2:16PM By Zita Hodge ; [facility] oxyCODONE-Acetaminophen 7.5- 325 MG Oral Tablet 01/01/2022 - 01/11/2022 Provider: Kvng Monroy MD Diagnosis: Take 1 tablet PO up to three times a day, PRN post op pain Last Documented On 2 3:17PM By Dr. Monroy ; [facility] Medications Administered Includes: Administered Medications from this encounter No Administered Medications Recorded Vital Signs Includes: Vital Signs from this encounter Vital Name 08/18/2023 09:04A Height (in) 66 Weight (lb) 155 Body Mass Index 25 Body Surface Area 1.8 Note: hdv Last Documented: On 08/18/2023 9:04AM ; [facility] Results Includes: Results discussed during [...] 01/14/2022 Last Documented On 4 9:03AM ; [facility] Not a smoker 10/30/2021 Last Documented On 4 9:03AM ; [facility] Caffeine use 10/30/2021 Last Documented On 4 9:03AM ; [facility], [facility] Exercising regularly 10/30/2021 Last Documented On 4 9:03AM ; [facility] No recent change in diet 10/30/2021 Last Documented On 4 9:03AM ; [facility] Not a current smoker. 10/30/2021 Last Documented On 4 9:03AM ; [facility] Not using alcohol 10/30/2021 Last Documented On 4 9:03AM ; [facility] Not using drugs 10/30/2021 Last Documented On 4 9:03AM ; [facility] Non-smoker 10/29/2021 Last Documented On 4 9:03AM ; [facility] Sex - Male 10/23/2023 Last Documented On 4 12:35PM ; [facility] Smoking Status Unknown Procedures and Surgical History Includes: Procedures from this encounter Procedures Code Diagnosis Performing Provider Service L ocation Service Date use of tobacco assessment performed 1000F Last Documented On 4 9:03AM ; [facility] patient screened for future fall risk: documentation of any fall with injury in past year 1100F Last Documented On 4 9:03AM ; [facility] review of medications documented 1160F Last Documented On 4 9:03AM ; [facility] an X-ray was performed 25686 Last Documented On 4 9:03AM ; [facility] an MRI was performed 35469 Last Documented On 4 9:03AM ; [facility] Surgical History Last Updated History of back surgery 06/2021 Right L4-5 Laminectomy/Discectomy @ [facility] 01/14/2022 Last Documented On 4 9:03AM ; [facility] Medical History Includes: Medical History addressed during this encounter Description Last Updated Recent immunization for flu 2020 022 Last Documented On 4 9:03AM ; [facility] Past surgical history non-contributory 0 11/04/2021 Last Documented On 4 9:03AM ; [facility] History of History of Blood Clots 2021 Last Documented On 4 9:03AM ; [facility] History of History of Cancer 10/30/2021 Last Documented On 4 9:03AM ; [facility] No recent immunization for pneumococcal pneumonia 10/30/2021 Last Documented On 4 9:03AM ; [facility] Family History Includes: Family History addressed during this encounter Description Last Updated Diabetes mellitus 08/18/2023 Last Documented On 4 9:13AM ; [facility] Family history of cancer 08/18/2023 Last Documented On 4 9:13AM ; [facility] Family history of heart disease 08/18/19 24 Last Documented On 4 9:13AM ; [facility] Family history of systemic hypertension 08/18/2023 Last Documented On 4 9:13AM ; [facility] No significant family history 10/30/2021 Last Documented On 4 9:03AM ; [facility] Review of Systems Includes: Review of [...] anxiety Last Documented On 4 9:03AM ; [facility], [facility] Physical Exam Includes: Physical Exam from this encounter Allergies Includes: Active Allergies Substance Type Reaction Onset Date Resolved Date Statu s Shellfish Allergy 05/13/2022 Active Last Documented On 4 9:03AM ; [facility] IVP DYE Allergy 05/13/2022 Active Last Documented On 4 9:03AM ; [facility] Care It Quality Analyst Name (Identifier) Role/Relation Location/Telecom Last Documented By BHAVANA ARTEAGA MD ([id number]) 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) [address] [place] [address], [place], [address] tel:[phone] Last Documented On 10/23/2023 12:35PM ; [facility] TRENA PANIAGUA MD ([id number]) [address] [place] [address] [place], [address] tel:[phone] Last Documented On 11/06/2021 9:35AM ; [facility] GISSEL TOMLINSON MD ([id number]) [address] [place] [address] [place], [address] tel:[phone] Last Documented On 12/29/2021 9:26AM ; [facility] Kvng Monroy MD ([id number]) Assigned practitioner (occupation) tel:[phone] Last Documented On 10/23/2023 12:35PM ; [facility] Encounters Encounter Provider Location (Healthcare Service Location) Date Check-In Time Check-Out Time Diagnosis Encounter Disposition Follow Up Ninfa Rao PA-C [facility] B 2023 9:01AM 9:12AM Payer Includes: Active Insurance Policies Plan Name (Payer ID) Coverage Type Member ID Group # Subscriber (ID) Relationship Effective Dates 1 - [employer] ([id number]) [id number] Corbin Hu Self 05/02/19 23 - Unknown Last Documented On 3 9:00AM ; [facility] Clinical Notes Includes: Clinical Notes from this encounter * Progress note Date Encounter Last Documented by 08/18/2023 Follow Up Last documented on 08/18/2023; 9:13 AM, Ninfa Rao PA-C; [facility], [facility] Active Problems & Conditions - [...] Back surgery 01/01/2022 Right L4-5 [facility] [facility] Social History Not a current smoker. Current [...] Care Team - BHAVANA ARTEAGA MD - LICENSED NUCLEAR CONTROL ROOM OPERATOR - TRENA PANIAGUA MD - Infectious Disease - GISSEL TOMLINSON MD - Oncology
--- OUTSIDE RECORDS SUMMARY | 2025-05-01 10:18 | XMS_ITS | Clinical Summary ---
Author Organization [facility] Address [address] [place] [address] Care Team Providers Care Party Plan Salesperson Name Role Phone Provider, No Known Primary [...] 2024-2 6 season) 2024 07/25/2020, 06/11/2020 Insurance [facility] MEDICARE ADVANTAGE Care Teams Party Plan Salesperson Relationship Specialty Start Date End Date Provider, No Known [facility] [place] [address] PCP - General 10/07/21
--- OUTSIDE RECORDS SUMMARY | 2025-05-01 10:18 | XMS_ITS | Encounter Summary ---
Author Organization [facility] Address [address] [place] [address] Care Team Providers Care Hat And Cap Drying Room Attendant Name Role Phone Per Patient, None Primary Care Provider Unavaila ble Encounter Details Date Type Department Care Team ([facility] st Contact Info) Description 10/08/2021 Lab Requisition [facility] [address] [place] [address] [place] [id number] Unspecified lesions of [...] EDT Case Report Surgical Pathology Report Case: [id number] Authorizing Provider: Maurcie Power MD Collected: 10/08/2021 Ordering Location: [facility] Received: 10/08/2021 1659 Pathologist: Cindy Flores MD Specimen: [id number] 10/26/2021 7:22 AM EDT [facility] Tissue 10/08/2021 10/08/2021 4:5 9 PM EDT us Maurice Power MD LAB PATHOLOGY ORDERABLES F inal [facility] [address] [place] [address] documented in this encounter Visit Diagnoses Diagnosis Unspecified lesions of oral mucosa documented in this encounter Care Teams Hat And Cap Drying Room Attendant Relationship Specialty Start Date End Date Per [place], [place] [address] PCP - General 05/02/20 documented as of this encounter
--- OUTSIDE RECORDS SUMMARY | 2025-05-01 10:19 | XMS_ITS | Clinical Summary ---
Author Organization [facility] Address [address] [facility] [place] [address] Phone Care Team Providers Care Compression Molding Machine Tender Name Role Phone JENNI ALFARO, BHAVANA Ren Primary Care Provider [phone] SIVA ALFARO, TRENA Michaels Unavailable [phone] BUSHRA ALFARO, GISSEL Chowdhury Unavailable [phone] [...] Active Last Documented On 5 1:42AM ; [facility], [facility] Past Visits Onset Date Date of Diagnosis Resolved Date Provider Condition Status Back Pain 10/30/2021 10/30/2021 Kvng portillo MD Active Last Documented On 5 1:41AM ; [facility], [facility] Plan of Treatment Fall Risk Assessment: [...] - Last Documented On 08/18/2023 9:15AM ; [facility], [facility] This seems neurologic he does have weakness [...] - Last Documented On 08/18/2023 9:15AM ; [facility], [facility] Assessments Includes: Assessments from this encounter Findings Likely brachial plexopathy - Last Documented On 08/18/2023 9:15AM ; [facility], [facility] Medical Equipment - Implanted Devices Includes: Current Devices No Medical Equipment Recorded Medications Includes: Medications discussed during this encounter and other current Medications New / Renewed during this visit Ninfa Rao PA-C on 07/28/2023 Medrol 4 MG Oral Tablet Therapy Pack Provider: Ninfa Martinez 7 day supply: 21 tablet, 0 refills Diagnosis: take as directed TAKE DIRECTED Pharmacy: [address] [place], [id number] - Last Documented On 4 1:16PM By Zita Tim ; [facility] Gabapentin 300 MG Oral Capsule Provider: Marquis Truong MD 10 day supply: 30 capsule, 0 refills Diagnosis: one capsule by mouth three t imes a day Pharmacy: [address], [id number] - Last Documented On 4 2:02PM By Marquis Truong ; [facility], [facility] Current Medications (continue as prescribed) Diclofenac Sodium 75 MG Oral Tablet Delayed Release Provider: Diagnosis: Last Documented On 4 12:47PM By Zita Tim ; [facility] valACYclovir HCl 1 GM Oral Tablet 06/15/2023 Provide r: GISSEL TOMLINSON MD Diagnosis: Last Documented On 4 12:47PM By Zita Tim ; [facility] Amoxicillin-Pot Clavulanate 500-125 MG Oral Tablet 04/14/2023 Provider: GISSEL Urena (PO) Diagnosis: Last Documented On 4 12:47PM By Zita Tim ; [facility] Eliquis 5 MG Oral Tablet 04/12/2022 Provider: ALE TOMLINSON MD Diagnosis: Last Documented On 3 9:04AM By Zita Hodge ; [facility] Lactobacillus Acidophilus Powder 10/29/2021 Provider : Diagnosis: Last Documented On 2 1:37PM By Dr. Monroy ; [facility] valACYclovir HCl 1 GM Oral Tablet 10/27/2021 Provide r: Diagnosis: Last Documented On 2 1:36PM By Dr. Monroy ; [facility] Allopurinol 300 MG Oral Tablet 10/18/2021 Provider: Diagnosis: Last Documented On 2 1:36PM By Dr. Monroy ; [facility] Past Medications on file Eliquis 5 MG Oral Tablet 01/14/2022 - 02/13/2022 Provi susan: Kvng Monroy MD Diagnosis: Take 1 tablet PO twice a day Last Documented On 2 2:16PM By Zita Hodge ; [facility] oxyCODONE-Acetaminophen 7.5- 325 MG Oral Tablet 01/01/2022 - 01/11/2022 Provider: Kvng Monroy MD Diagnosis: Take 1 tablet PO up to three times a day, PRN post op pain Last Documented On 2 3:17PM By Dr. Monroy ; [facility] Medications Administered Includes: Administered Medications from this encounter No Administered Medications Recorded Vital Signs Includes: Vital Signs from this encounter Vital Name 07/28/2023 12:47P Height (in) 66 Weight (lb) 155 Body Mass Index 25 Body Surface Area 1.8 Note: hdv Last Documented: On 07/28/2023 12:48P M ; [facility] Results Includes: Results discussed during this [...] 01/14/2022 Last Documented On 4 12:47PM ; [facility], [facility] Not a smoker 10/30/2021 Last Documented On 4 12:47PM ; [facility], [facility] Caffeine use 10/30/2021 Last Documented On 4 12:47PM ; [facility], [facility] Exercising regularly 10/30/2021 Last Documented On 4 12:47PM ; [facility], [facility] No recent change in diet 10/30/2021 Last Documented On 4 12:47PM ; [facility], [facility] Not a current smoker. 10/30/2021 Last Documented On 4 12:47PM ; [facility], [facility] Not using alcohol 10/30/2021 Last Documented On 4 12:47PM ; [facility], [facility] Not using drugs 10/30/2021 Last Documented On 4 12:47PM ; [facility] Non-smoker 10/29/2021 Last Documented On 4 12:47PM ; [facility] Sex - Male 10/23/2023 Last Documented On 4 12:35PM ; [facility] Smoking Status Unknown Procedures and Surgical History Includes: Procedures from this encounter Procedures Code Diagnosis Performing Provider Service L ocation Service Date use of tobacco assessment performed 1000F Last Documented On 4 12:48PM ; [facility], [facility] patient screened for future fall risk: documentation of any fall with injury in past year 1100F Last Documented On 4 12:48PM ; [facility] review of medications documented 1160F Last Documented On 4 12:48PM ; [facility] an X-ray was performed 39926 Last Documented On 4 12:48PM ; [facility] an MRI was performed 14687 Last Documented On 4 12:48PM ; [facility], [facility] Surgical History Last Updated History of back surgery 06/2021 Right L4-5 Laminectomy/Discectomy @ [facility] 01/14/2022 Last Documented On 4 12:47PM ; [facility], [facility] Medical History Includes: Medical History addressed during this encounter Description Last Updated Recent immunization for flu 2020 022 Last Documented On 4 12:47PM ; [facility] Past surgical history non-contributory 0 11/04/2021 Last Documented On 4 12:47PM ; [facility] History of History of Blood Clots 2021 Last Documented On 4 12:47PM ; [facility] History of History of Cancer 10/30/2021 Last Documented On 4 12:47PM ; [facility], [facility] No recent immunization for pneumococcal pneumonia 10/30/2021 Last Documented On 4 12:47PM ; [facility] Family History Includes: Family History addressed during this encounter Description Last Updated Diabetes mellitus 07/28/2023 Last Documented On 4 9:15AM ; [facility], [facility] Family history of cancer 07/28/2023 Last Documented On 4 9:15AM ; [facility], [facility] Family history of heart disease 07/28/19 24 Last Documented On 4 9:15AM ; [facility], [facility] Family history of systemic hypertension 07/28/2023 Last Documented On 4 9:15AM ; [facility], [facility] Review of Systems Includes: Review of [...] anxiety Last Documented On 4 12:48PM ; [facility] Physical Exam Includes: Physical Exam from this encounter Allergies Includes: Active Allergies Substance Type Reaction Onset Date Resolved Date Statu s Shellfish Allergy 05/13/2022 Active Last Documented On 4 9:03AM ; [facility] IVP DYE Allergy 05/13/2022 Active Last Documented On 4 9:03AM ; [facility], [facility] Care Compression Molding Machine Tender Name (Identifier) Role/Relation Location/Telecom Last Documented By BHAVANA ARTEAGA MD ([id number]) 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) [address] [place] [address] [place], [address] tel:[phone] Last Documented On 10/23/2023 12:35PM ; [facility] TRENA PANIAGUA MD ([id number]) [address] [place] [address] [place], [address] tel:[phone] Last Documented On 11/06/2021 9:35AM ; [facility] GISSEL TOMLINSON MD ([id number]) [address] [place] [address] [place], [address] tel:[phone] Last Documented On 12/29/2021 9:26AM ; [facility] Kvng Monroy MD ([id number]) Assigned practitioner (occupation) tel:[phone] Last Documented On 10/23/2023 12:35PM ; [facility] Encounters Encounter Provider Location (Healthcare Service Location) Date Check-In Time Check-Out Time Diagnosis Encounter Disposition Physician Specified Ninfa Rao PA-C [facility] B 2023 11:49AM 1:08PM Payer Includes: Active Insurance Policies Plan Name (Payer ID) Coverage Type Member ID Group # Subscriber (ID) Relationship Effective Dates 1 - [employer] [place] [id number]) [id number] Corbin Hu Self 05/02/19 23 - Unknown Last Documented On 3 9:00AM ; [facility], [facility] Clinical Notes Includes: Clinical Notes from this encounter * Progress note Date Encounter Last Documented by 07/28/2023 Physician Specified Last eric gaspar on 08/18/2023; 9:15 AM, Ninfa Rao PA-C; [facility], [facility] Active Problems & Conditions - Back [...] weakness with biceps testing. He has normal hand cutter apprentice strength however. The left shoulder is stable. [...] Care Team - BHAVANA ARTEAGA MD - CLUB LICENSEE - TRENA PANIAGUA MD - Infectious Disease - GISSEL TOMLINSON MD - Oncology
--- OUTSIDE RECORDS SUMMARY | 2025-05-01 10:19 | XMS_ITS ---
Care Plan - [facility] Created on: May 01, 2025 HuCorbin keene Karma : 1950 Sex: Male Author Organization [facility] Address [address] [facility] [place] [address] Phone Care Team Providers Care Window Installer Name Role Phone JENNI ALFARO, BHAVANA Ren Primary Care Provider [phone] SIVA ALFARO, TRENA Michaels Unavailable [phone] BUSHRA ALFARO, GISSEL Chowdhury Unavailable [phone] Porfirio ALFARO, Kvng Unavailable [phone]
[2025-05-01] MEDS: ONDANSETRON 4MG ODT 16 MG SL (10:22)
[2025-05-01] MEDS: DEXAMETHASONE 4MG TABLET 12 MG PO (10:22)
[2025-05-01 11:00] VITALS: BP 117/46; PULSE 72; RESP 21; TEMP 36.6; O2SAT 98
[2025-05-01 11:30] VITALS: BP 121/71; PULSE 74
[2025-05-01 12:00] VITALS: BP 127/68; PULSE 70
[2025-05-01] MEDS: SODIUM CHLORIDE 0.9% 10ML FLUSH SYRINGE 10 ML IV (12:31)
== END 2025-05-01 23:59 | disposition home or self-care (01) ==
LOC: INF 10:15
PROVIDERS: PCP Family Medicine; Visit Provider Internal Medicine Medical Oncology
DX: C91.12 Chronic lymphocytic leukemia of B-cell type in relapse (principal); Z51.11 Encounter for antineoplastic chemotherapy
CPT/HCPCS: 96413; 97803; J7040; J8540; J9036; Q0162